=== PATIENT | female | born 2000 | race Hispanic/Latino ===

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

== ENCOUNTER 2021-02-03 12:01 | Emergency (ER) | payer OTHER ==
--- OUTSIDE RECORDS SUMMARY | 2021-02-03 12:04 | XMS REPORT | Continuity of Care Document ---
:2000 Author Organization [facility] t Address [address] [place] [address] Care Team Providers Name Role Phone Chris JENNINGS R Primary Care Physician Chris JENNINGS R Attending Clinician Emanuel GALLARDOP, C Attending Clinician Payers Payer Name Policy Type Policy Effective Expiration Source Number Date Date [facility] [id number] 2020 Universi ty of CHOICE - MANAGED 00:00:00 [facility] dical MEDICAIDCOMMUNITY [facility] [id number] 020-[id number], [place] [address]Medicaid Problems Condition Condition Condition Status Onset Resolution Last Treating Co mments Source Name Details Category Date Date Treatment Clinician Date Nexplanon Nexplanon Disease Active Uni vers insertion insertion 5-07 ity of 00:00: [address] Branch Absence of Absence of Disease Active U nivers menstruati menstruati 3-24 it y of on on 00:00: [address] Breast Breast Disease Active Univers tenderness tenderness 3-24 [place] of [place] Class 1 Class 1 Disease Active Univers obesity obesity 3-24 [place] of with body [place] mass index mass index [address] Ct dical (BMI) of (BMI) of Branch 33.0 to 33.0 to 33.9 in 33.9 in adult, adult, unspecifie unspecifie d obesity d obesity type, type, unspecifie unspecifie d whether d whether serious serious comorbidit comorbidit y present y present BMI BMI Disease Active Univers 33.0-33.9, 33.0-33.9, 3-24 it y of adult adult 00:00: [place] [facility] Elevated Elevated Disease Active Unive rs blood blood 2-21 ity of pressure pressure 00:00: [place] reading reading 00 Medical without without Branch diagnosis diagnosis of of hypertensi hypertensi on on Other Other Disease Active Univers depression depression -09 it y of 00:00: [place] [facility] Branch Nexplanon Nexplanon Disease Active Uni vers removal removal 08-20 ity of 00:00: [address] Screening Screening Disease Active Uni vers examinatio examinatio 08-20 it y of n for STD n for STD 00:00: [place] (sexually (sexually [address] [facility] transmitte transmitte Br anch d disease) d disease) HPV HPV Disease Active 2018-08 Univers vaccine vaccine 0-16 it[place] of counseling [place] [facility] Overweight Overweight Disease Active 2018-08 U nivers 0-16 ity of 00:00: [facility] BMI BMI Disease Active 2018-08 Univers 29.0-29.9, 29.0-29.9, 0-16 it y of adult adult 00:00: [place] [facility] Lump or Lump or Disease Active Univers mass in mass in 4-13 ity of breast breast 00:00: [address] Nexplanon Nexplanon Disease Resolve 2019-08-20 2019-08-20 Univers insertion insertion d 4-13 00:00:00 15:53:54 ity of 00:00: [address] Allergies, Adverse Reactions, Alerts This patient has no known allergies or adverse reactions. Social History Social Habit Start Date Stop Date Quantity Comments Source Exposure to Not sure [facility] SARS-CoV-2 [facility] (event) Branch Tobacco use and 2020-12-16 2020-12-16 Never used Universit y of exposure 00:00:00 00:00:00 [facility] Alcohol intake 2020-12-16 2020-12-16 Current University of 00:00:00 00:00:00 non-drinker of [facility] alcohol Branch (finding) Sex Assigned At [birth year] Universit y of 00:00:00 00:00:00 [facility] Smoking Status Start Date Stop Date Source Never smoker [facility] Medications Ordered Filled Start Stop Current Ordering Indication Dosage Frequency Signature Comments Components Source Medication Medication Date Date Medication? Clinician (SIG) Name Name etonogestre 2020- No Nexplanon 68mg Univers L 12-16 insertion ity of (NEXPLANON) 15:45: 14:44 [place] implant 68 00 :00 Medical mg Branch etonogestre 2020- No [id number] 68mg 68 mg, Univers L 12-16 Subdermal, ity of (NEXPLANON) 15:45: 14:44 ONCE NOW, [place] implant 68 00 :00 1 dose, Medica l mg 12/16/20 Branch at 1045, Routine
Use approved by: [employer] etonogestre 2020- No Nexplanon 68mg Univers L 12-16- insertion ity of (NEXPLANON) 15:45: 14:44 [place] implant 68 00 :00 Medical mg Branch etonogestre 2020- No [id number] 68mg 68 mg, Univers L 12-16- Subdermal, ity of (NEXPLANON) 15:45: 14:44 ONCE NOW, [place] implant 68 00 :00 1 dose, Medica l mg 12/16/20 Branch at 1045, Routine
Use approved by: [employer] Immunizations Ordered Immunization Filled Immunization Date Status Commen ts Source Name Name HPV9 2019-08-25 Completed University of 00:00:00 [facility] HPV9 2019-08-25 Completed University of 00:00:00 [facility] HPV9 2019-05-27 Completed University of 00:00:00 [facility] HPV9 2019-05-27 Completed University of 00:00:00 [facility] TDAP (ADACEL) 2014-06-24 Completed University of VACCINE 00:00:00 [facility] Meningococcal 2014-06-24 Completed University of Vaccine 00:00:00 [facility] TDAP (ADACEL) 2014-06-24 Completed University of VACCINE 00:00:00 [facility] Meningococcal 2014-06-24 Completed University of Vaccine 00:00:00 [facility] TDAP (ADACEL) 2013-03-12 Completed University of VACCINE 00:00:00 [facility] TDAP (ADACEL) 2013-03-12 Completed [facility] VACCINE 00:00:00 [facility] Vital Signs Vital Name Observation Time Observation Value Comments Source Systolic blood 2020-12-16 14:02:00 133 mm[Hg] Univer sity of pressure [facility] Diastolic blood 2020-12-16 14:02:00 85 mm[Hg] Unive rsity of [facility] Heart rate 2020-12-16 14:02:00 89 /min [facility] Body temperature 2020-12-16 14:02:00 36.56 [facility] Respiratory rate 2020-12-16 14:02:00 16 /min [facility] Body height 2020-12-16 14:02:00 165.1 cm [facility] Body weight 2020-12-16 14:02:00 89.444 kg [facility] BMI 2020-12-16 14:02:00 32.81 kg/m2 [facility] Procedures Procedure Date / Time Performed Performing Clinician Sour e POCT TEST 2020-12-16 14:24:00 Floridalma Castellanos [facility] Plan of Care Planned Activity Planned Date Details Comments Source Future Scheduled 2024-06-24 DTaP,Tdap,and Td Univers ity of Test 00:00:00 Vaccines (3 - Td) [facility] [code = Branch DTaP,Tdap,and Td Vaccines (3 - Td)] Future Scheduled 2024-06-24 DTaP,Tdap,and Td Univers ity of Test 00:00:00 Vaccines (3 - Td) [facility] danni [code = Branch DTaP,Tdap,and Td Vaccines (3 - Td)] Future Scheduled 2021-12-16 SARS-CoV-2 Postponed from Universit y of Test 00:00:00 (COVID-19) Vaccine 2017 [place] [facility] ical (1) [code = (Vaccine not Branch SARS-CoV-2 available) (COVID-19) Vaccine (1)] Future Scheduled 2021-12-16 SARS-CoV-2 Postponed from Universit y of Test 00:00:00 (COVID-19) Vaccine 2017 [place] [facility] ical (1) [code = (Vaccine not Branch SARS-CoV-2 available) (COVID-19) Vaccine (1)] Future Scheduled 2021-11-02 Screening for University of Test 00:00:00 Chlamydia [place] [facility] trachomatis Branch (procedure) [code = 792188204] Future Scheduled 2021-11-02 Depression screening Uni versity of Test 00:00:00 (procedure) [code = [facility] dical [id number]] Branch Future Scheduled 2021-11-02 MENINGOCOCCAL B Postponed from Univer sity of Test 00:00:00 VACCINES (1 of 2 - 2011 [place] [facility] ical Risk Bexsero 2-dose (Refused) Branch series) [code = MENINGOCOCCAL B VACCINES (1 of 2 - Risk Bexsero 2-dose series)] Future Scheduled 2021-11-02 VARICELLA VACCINES Postponed from Uni versity of Test 00:00:00 (1 of 2 - 2-dose 2002 [place] [facility] childhood series) (Refused) Branch [code = VARICELLA VACCINES (1 of 2 - 2-dose childhood series)] Future Scheduled 2021-11-02 Well child visit Univers ity of Test 00:00:00 (procedure) [code = [facility] dical [id number]] Branch Future Scheduled 2021-11-02 Screening for University of Test 00:00:00 Chlamydia [place] [facility] trachomatis Branch (procedure) [code = [id number]] Future Scheduled 2021-11-02 Depression screening Uni versity of Test 00:00:00 (procedure) [code = [facility] dical [id number]] Branch Future Scheduled 2021-11-02 MENINGOCOCCAL B Postponed from Univer sity of Test 00:00:00 VACCINES (1 of 2 - 2011 [place] [facility] ical Risk Bexsero 2-dose (Refused) Branch series) [code = MENINGOCOCCAL B VACCINES (1 of 2 - Risk Bexsero 2-dose series)] Future Scheduled 2021-11-02 VARICELLA VACCINES Postponed from Uni versity of Test 00:00:00 (1 of 2 - 2-dose 2002 [place] [facility] childhood series) (Refused) Branch [code = VARICELLA VACCINES (1 of 2 - 2-dose childhood series)] Future Scheduled 2021-11-02 Well child visit Univers ity of Test 00:00:00 (procedure) [code = [facility] dical [id number]] Branch Future Scheduled 2021-04-12 INFLUENZA VACCINE Univer sity of Test 00:00:00 (Season Ended) [code [facility] edical = INFLUENZA VACCINE Branch (Season Ended)] Future Scheduled 2021-04-12 INFLUENZA VACCINE Univer sity of Test 00:00:00 (Season Ended) [code [facility] edical = INFLUENZA VACCINE Branch (Season Ended)] Future Scheduled 2020-12-19 HPV VACCINES (3 - Postponed from Univ ersity of Test 00:00:00 3-dose series) [code 12/24/2019 [facility] edical = HPV VACCINES (3 - ( or Branch 3-dose series)] ) Future Scheduled 2020-12-19 HPV VACCINES (3 - Postponed from Univ ersity of Test 00:00:00 3-dose series) [code 12/24/2019 [facility] edical = HPV VACCINES (3 - ( or Branch 3-dose series)] ) Future Scheduled 2020-12-17 Hepatitis C Postponed from Universit y of Test 00:00:00 screening 2019 [place] [facility] (procedure) [code = (Alternative Branch [id number]] Guidelines) Future Scheduled 2020-12-17 Hepatitis C Postponed from Universit y of Test 00:00:00 screening 2019 [place] [facility] (procedure) [code = (Alternative Branch [id number]] Guidelines) Encounters Start End Encounter Admission Attending Care Care Encounter Source Date/Time Date/Time Type Type Clinicians Facility Department ID 2020-12-30 2020-12-30 Office Perez, [facility] [id number] 09:29:12 10:10:09 Visit Jacob Love [employer] [id number] [facility] [id number] MATERNAL [id number] & CHILD [address] [place] [address] [facility] Results Test Description Test Time Test Comments Results Result Comments Source POCT TEST 2020-12-16 14:24:00 Test Item Value Reference Range Interpretation Comme nts POCT PREG (test code = 1605) Negative On board controls acceptable with C Line (test code = 3574) Yes POCT PREG LOT # (test code = 3575) POCT PREG TEST DATE (test code = 3576) [facility] [place] [id number] 14:24:00 Test Item Value Reference Range Interpretation Comments POCT PREG (test code = 1605) Negative On board controls acceptable with C Yes Line (test code = 3574) POCT PREG LOT # (test code = 3575) POCT PREG TEST DATE (test code = 3576) [facility]
--- NOTE | 2021-02-03 13:46 | ER ---
Nurse's Notes [facility] Name: Maylin Zuniga Age: 20 yrs Sex: Female : 2000 Arrival Date: 02/03/2021 Time: 12:02 Bed 30 Private MD: Diagnosis: Presentation: 02/03 12:41 Chief complaint: Patient states: Nasal congestion, sinuses and unable to breath at iw night between 2am-4am, throat itching and hard to swallow x 2 days. Coronavirus screen: Client denies travel out of the [place] in the last 14 days. At this time, unable to obtain information related to travel outside the [place] At this time, the client does not indicate any symptoms associated with coronavirus-19. Ebola Screen: Patient negative for fever greater than or equal to 101.5 degrees Fahrenheit, and additional compatible Ebola Virus Disease symptoms Patient denies exposure to infectious person. Patient denies travel to an Ebola-affected area in the 21 days before illness onset. Initial Sepsis Screen: Does the patient meet any 2 criteria? No. Patient's initial sepsis screen is negative. Does the patient have a suspected source of infection? No. Patient's initial sepsis screen is negative. Risk Assessment: Do you want to hurt yourself or someone else? Patient reports no desire to harm self or others. Onset of symptoms was February 01, 2021. 12:41 Method Of Arrival: Ambulatory iw 12:41 Acuity: VINNY 4 iw Triage Assessment: 12:45 General: Appears in no apparent distress. Behavior is calm, cooperative, appropriate iw for age, quiet. Pain: Denies pain. NURSE ORTHOPAEDIC: 12:45 LMP 01/06/2021 iw Historical: - Allergies: 12:45 No Known Allergies; iw - Home Meds: 12:45 None [Active]; iw - PMHx: 12:45 seasonal allergies; NOSE BLEEDS; iw - PSHx: 12:45 None; iw - Immunization history:: Adult Immunizations not up to date, Client reports having NOT received the Covid vaccine. - Social history:: Smoking status: Patient denies any tobacco usage or history of. Screenin:46 Abuse screen: Denies threats or abuse. Denies injuries from another. Nutritional iw screening: No deficits noted. Tuberculosis screening: No symptoms or risk factors identified. Fall Risk None identified. Vital Signs: 12:41 BP 139 / 74; Pulse 101; Resp 20; Temp 98.5(O); Pulse Ox 100% on R/A; Weight 88.63 kg iw (M); Height 5 ft. 5 in. (165.10 cm) (R); Pain 0/10; 12:41 Body Mass Index 32.52 (88.63 kg, 165.10 cm) iw ED Course: 12:02 Patient arrived in ED. as 12:41 Kayleen Gabriel, RN is Primary Nurse. iw 12:44 Triage completed. iw 12:45 Arm band placed on left wrist. iw 12:46 Patient has correct armband on for positive identification. iw 13:42 Thomas Nieto PA is PHCP. cp 13:42 Thomas Lynne MD is Attending Physician. cp Administered Medications: No medications were administered Outcome: 13:44 Eloped from waiting room, before seeing physician iw 13:45 Patient left the ED. iw Signatures: Cheryl Meeks as Kayleen Gabriel RN RN iw Thomas Nieto PA PA cp
[2021-02-03 13:50] VITALS: BP 139/74; TEMP 98.5; O2SAT 100
== END 2021-02-03 13:45 | disposition left against medical advice (07) ==
LOC: ER 12:01
DX: Z53.21 Procedure and treatment not carried out due to patient leaving prior to being seen by health care provider (principal)
CPT/HCPCS: 99281

== ENCOUNTER 2021-03-15 09:44 | Emergency (ER) | payer OTHER ==
--- OUTSIDE RECORDS SUMMARY | 2021-03-15 09:48 | XMS REPORT | Continuity of Care Document ---
:2000 Author Organization [facility] t Address [address] [place] [id number] Care Team Providers Name Role Phone Ivan Joseph Primary Care Physician Ivan Joseph Attending Clinician Emanuel NAGEL C Attending Clinician Payers Payer Name Policy Type Policy Effective Expiration Source Number Date Date [facility] [id number] 2020 [facility] - MANAGED 00:00:00 [facility] dical MEDICAIDCOMMUNITY Branch HEALTH CHOICE [id number] 020-[address], [place] [address]Medicaid Problems Condition Condition Condition Status Onset Resolution Last Treating Co mments Source Name Details Category Date Date Treatment Clinician Date Nexplanon Nexplanon Disease Active Uni vers insertion insertion 5-07 ity of 00:00: [address] Absence of Absence of Disease Active U nivers menstruati menstruati 3-24 it y of on on 00:00: [address] Breast Breast Disease Active Univers tenderness tenderness 3-24 [place] [address] [place] [address] Branch Class 1 Class 1 Disease Active Univers obesity obesity 3-24 [place] of with body [place] mass index 00 [place] dical (BMI) of (BMI) of Branch 33.0 to 33.0 to 33.9 in 33.9 in adult, adult, unspecifie unspecifie d obesity d obesity type, type, unspecifie unspecifie d whether d whether serious serious comorbidit comorbidit y present y present BMI BMI Disease Active Univers 33.0-33.9, 33.0-33.9, 3-24 it y of adult adult 00:00: [place] 00 [facility] Branch Elevated Elevated Disease Active Unive rs blood blood 2-21 ity of pressure pressure 00:00: [place] reading reading 00 Medical without without Branch diagnosis diagnosis of of hypertensi hypertensi on on Other Other Disease Active Univers depression depression -09 it y of 00:00: [place] [facility] Branch Nexplanon Nexplanon Disease Active Uni vers removal removal 08-20 ity of 00:00: [address] Branch Screening Screening Disease Active Uni vers examinatio examinatio 08-20 it y of n for STD n for STD 00:00: [place] (sexually (sexually 00 [facility] transmitte transmitte Br anch d disease) d disease) HPV HPV Disease Active 2018-08 Univers vaccine vaccine 0-16 [place] [facility] Overweight Overweight Disease Active 2018-08 U nivers 0-16 ity of 00:00: [address] BMI BMI Disease Active 2018-08 Univers 29.0-29.9, 29.0-29.9, 0-16 it y of adult adult 00:00: [address] Lump or Lump or Disease Active Univers mass in mass in 4-13 ity of breast breast 00:00: [address] Nexplanon Nexplanon Disease Resolve 2019-08-20 2019-08-20 Univers insertion insertion d 4-13 00:00:00 15:53:54 ity of 00:00: [address] Allergies, Adverse Reactions, Alerts This patient has no known allergies or adverse reactions. Social History Social Habit Start Date Stop Date Quantity Comments Source Exposure to Not sure [facility] SARS-CoV-2 [facility] [place] Tobacco use and 2020-12-16 2020-12-16 Never used Universit y of exposure 00:00:00 00:00:00 [facility] Alcohol intake 2020-12-16 2020-12-16 Current University of 00:00:00 00:00:00 non-drinker of [facility] alcohol Branch (finding) Sex Assigned At [birth year] Universit y of 00:00:00 00:00:00 [facility] Smoking Status Start Date Stop Date Source Never smoker [facility] Medications Ordered Filled Start Stop Current Ordering Indication Dosage Frequency Signature Comments Components Source Medication Medication Date Date Medication? Clinician (SIG) Name Name etonogestre 2020- No Nexplanon 68mg Univers L 12-16- insertion ity of (NEXPLANON) 15:45: 14:44 [place] implant 68 00 :00 Medical mg Branch etonogestre 2020- No [id number] 68mg 68 mg, Univers L 12-16-07 Subdermal, ity of (NEXPLANON) 15:45: 14:44 ONCE NOW, [place] implant 68 00 :00 1 dose, Medica l mg 12/16/20 Branch at 1045, Routine
Use approved by: [employer]PECT[employer] etonogestre 2020- No Nexplanon 68mg Univers L 12-16-07 insertion ity of (NEXPLANON) 15:45: 14:44 [place] implant 68 00 :00 Medical mg Branch etonogestre 2020- No [id number] 68mg 68 mg, Univers L 12-16-07 Subdermal, ity of (NEXPLANON) 15:45: 14:44 ONCE NOW, [place] implant 68 00 :00 1 dose, Medica l mg 12/16/20 Branch at 1045, Routine
Use approved by: [employer] INSPECTOR Immunizations Ordered Immunization Filled Immunization Date Status Commen ts Source Name Name HPV9 2019-08-25 Completed University of 00:00:00 [facility] HPV9 2019-08-25 Completed University of 00:00:00 [facility] HPV9 2019-05-27 Completed University of 00:00:00 [facility] HPV9 2019-05-27 Completed University of 00:00:00 [facility] TDAP (ADACEL) 2014-06-24 Completed University of VACCINE 00:00:00 [facility] Meningococcal 2014-06-24 Completed University of Vaccine 00:00:00 [facility] TDAP (ADACEL) 2014-06-24 Completed University of VACCINE 00:00:00 [facility] Meningococcal 2014-06-24 Completed University of Vaccine 00:00:00 [facility] TDAP (ADACEL) 2013-03-12 Completed University VACCINE 00:00:00 [facility] TDAP (ADACEL) 2013-03-12 Completed [facility] VACCINE 00:00:00 [facility] Vital Signs Vital Name Observation Time Observation Value Comments Source Systolic blood 2020-12-16 14:02:00 133 mm[Hg] Univer sity of pressure [facility] Diastolic blood 2020-12-16 14:02:00 85 mm[Hg] Unive rsity of pressure [facility] Heart rate 2020-12-16 14:02:00 89 /min [facility] Body temperature 2020-12-16 14:02:00 36.56 [place] [facility] Respiratory rate 2020-12-16 14:02:00 16 /min [facility] Body height 2020-12-16 14:02:00 165.1 cm [facility] Body weight 2020-12-16 14:02:00 89.444 kg [facility] BMI 2020-12-16 14:02:00 32.81 kg/m2 [facility] Procedures Procedure Date / Time Performed Performing Clinician Sour e POCT TEST 2020-12-16 14:24:00 [facility] Planned Activity Planned Date Details Comments Source Future Scheduled 2024-06-24 DTaP,Tdap,and Td Univers ity of Test 00:00:00 Vaccines (3 - Td) [facility] [code = Branch DTaP,Tdap,and Td Vaccines (3 - Td)] Future Scheduled 2024-06-24 DTaP,Tdap,and Td Univers ity of Test 00:00:00 Vaccines (3 - Td) [facility] danni [code = Branch DTaP,Tdap,and Td Vaccines (3 - Td)] Future Scheduled 2021-12-16 SARS-CoV-2 Postponed from Universit y of Test 00:00:00 (COVID-19) Vaccine 2017 [place] [facility] ical (1) [code = (Vaccine not Branch SARS-CoV-2 available) (COVID-19) Vaccine (1)] Future Scheduled 2021-12-16 SARS-CoV-2 Postponed from Universit y of Test 00:00:00 (COVID-19) Vaccine 2017 [place] [facility] ical (1) [code = (Vaccine not Branch SARS-CoV-2 available) (COVID-19) Vaccine (1)] Future Scheduled 2021-11-02 Screening for University of Test 00:00:00 Chlamydia [place] [facility] trachomatis Branch (procedure) [code = [id number]] Future Scheduled 2021-11-02 Depression screening Uni versity of Test 00:00:00 (procedure) [code = [facility] dical [id number]] Branch Future Scheduled 2021-11-02 MENINGOCOCCAL B Postponed [...] ity of Test 00:00:00 (procedure) [code = [facility] dical [id number]] Branch Future Scheduled 2021-11-02 Screening for University of Test 00:00:00 Chlamydia [place] [facility] trachomatis Branch (procedure) [code = [id number]] Future Scheduled 2021-11-02 Depression screening Uni versity of Test 00:00:00 (procedure) [code = [facility] dical [id number]] Branch Future Scheduled 2021-11-02 MENINGOCOCCAL B Postponed [...] ity of Test 00:00:00 (procedure) [code = [facility] dical [id number]] Branch Future Scheduled 2021-04-12 INFLUENZA VACCINE Univer sity of Test 00:00:00 (Season Ended) [code [facility] M edical = INFLUENZA VACCINE Branch (Season Ended)] Future Scheduled 2021-04-12 INFLUENZA VACCINE Univer sity of Test 00:00:00 (Season Ended) [code [facility] M edical = INFLUENZA VACCINE Branch (Season Ended)] Future Scheduled 2020-12-19 HPV VACCINES (3 - Postponed from Univ ersity of Test 00:00:00 3-dose series) [code 12/24/2019 [place] edical = HPV VACCINES (3 - ( or Branch 3-dose series)] ) Future Scheduled 2020-12-19 HPV VACCINES (3 - Postponed from Univ ersity of Test 00:00:00 3-dose series) [code 12/24/2019 [facility]elle edical = HPV VACCINES (3 - ( or Branch 3-dose series)] ) Future Scheduled 2020-12-17 Hepatitis C Postponed from Universit y of Test 00:00:00 screening 2019 [place] [facility] (procedure) [code = (Alternative Branch [id number]] Guidelines) Future Scheduled 2020-12-17 Hepatitis C Postponed from Universit y of Test 00:00:00 screening 2019 [place] [facility] (procedure) [code = (Alternative Branch [id number]] Guidelines) Encounters Start End Encounter Admission Attending Care Care Encounter Source Date/Time Date/Time Type Type Clinicians Facility Department ID 2020-12-30 2020-12-30 Office Chris [facility] [id number] 22 09:29:12 10:10:09 Visit Jacob Love [employer] [id number] [facility] [id number] MATERNAL [id number] & CHILD [address] [place] [address] Results Test Description Test Time Test Comments Results Result Comments Source POCT TEST 2020-12-16 14:24:00 Test Item Value Reference Range Interpretation Comme nts POCT PREG (test code = 1605) Negative On board controls acceptable with C Line (test code = 3574) Yes POCT PREG LOT # (test code = 3575) POCT PREG TEST DATE (test code = 3576) [id number] 14:24:00 Test Item Value Reference Range Interpretation Comments POCT PREG (test code = 1605) Negative On board controls acceptable with C Yes Line (test code = 3574) POCT PREG LOT # (test code = 3575) POCT PREG TEST DATE (test code = 3576) [facility]
[2021-03-15 10:40] LABS: Urine Blood Negative (Negative); Urine Glucose Negative (Negative); Urine Protein Negative (Negative); Urine pH 7.5 (5.0-7.0)
--- NOTE | 2021-03-15 11:16 | RAD REPORT ---
EXAM DESCRIPTION: RAD - Chest Pa And Lat (2 Views) - 03/15/2021 10:46 am CLINICAL HISTORY: COUGH Chest pain. COMPARISON: Chest Pa And Lat (2 Views) dated 10/06/2020; Chest Single View dated 06/03/2020; Chest Pa And Lat (2 Views) dated 08/06/2019; Chest Single View dated 06/03/2019 FINDINGS: The lungs are clear. The heart is normal in size. No displaced fractures. IMPRESSION: No acute or concerning finding suspected.
[2021-03-15] MEDS ORDERED: KETOROLAC 30 MG/ML INJ ONE (11:32)
[2021-03-15] MEDS ORDERED: CEFTRIAXONE/SWI 1gm 1 GM/10 ML SYR ONE (11:32)
[2021-03-15] MEDS ORDERED: NA CHLORIDE 0.9% 500 ML ONE (11:32)
[2021-03-15 11:40] LABS: Absolute Lymphocytes (CBC) 2.4 K/uL (0.7-4.9); Basophils % 0.8 % (0-1.3); Hematocrit 42.4 % (36.0-45.0); Lymphocytes % 31.3 % (15.3-44.8); MPV 8.3 fL (7.6-11.3); RBC Red Blood Cell Count 4.69 M/uL (3.86-4.86)
[2021-03-15 11:49] LABS: ALT/SGPT 33 U/L (12-78); AST/SGOT 17 U/L (15-37); Albumin 3.8 g/dL (3.4-5.0); Alkaline Phosphatase 83 U/L (45-117); BUN Blood Urea Nitrogen 8 mg/dL (7-18); Bicarbonate 27 mmol/L (21-32); Bilirubin Total 0.4 mg/dL (0.2-1.0); Glucose Level 73 mg/dL (74-106); Protein, Total 7.7 g/dL (6.4-8.2); Sodium Level 141 mmol/L (136-145); Troponin (Emerg Dept Use Only) < 0.02 ng/mL (0.0-0.045)
--- NOTE | 2021-03-15 11:50 | ER ---
Nurse's Notes [facility] Name: Maylin Zuniga Age: 20 yrs Sex: Female : 2000 Arrival Date: 03/15/2021 Time: 09:46 Bed 17 Private MD: Diagnosis: Chest pain, unspecified Presentation: 03/15 10:14 Chief complaint: Patient states: Pain to "ribs" under R breast that began last night ss when taking a deep breath. Denies fever/ cough and/or SOB. Coronavirus screen: Client denies travel out of the [place] in the last 14 days. Ebola Screen: Patient denies exposure to infectious person. Patient denies travel to an Ebola-affected area in the 21 days before illness onset. Initial Sepsis Screen: Does the patient meet any 2 criteria? No. Patient's initial sepsis screen is negative. Does the patient have a suspected source of infection? No. Patient's initial sepsis screen is negative. Risk Assessment: Do you want to hurt yourself or someone else? Patient reports no desire to harm self or others. Onset of symptoms was March 14, 2021. 10:14 Method Of Arrival: Ambulatory ss 10:14 Acuity: VINNY 4 ss Triage Assessment: 11:52 General: Appears in no apparent distress. Behavior is calm, cooperative, appropriate ll1 for age. Respiratory: the patient has mild shortness of breath. Respiratory: Onset: The symptoms/episode began/occurred gradually. AMBULATORY CARE COORDINATOR: 10:17 LMP 02/2021 ss Historical: - Allergies: 10:17 No Known Allergies; ss - Home Meds: 10:17 None [Active]; ss - PMHx: 10:17 NOSE BLEEDS; seasonal allergies; ss - PSHx: 10:17 None; ss - Immunization history:: Adult Immunizations up to date, Client reports receiving the 2nd dose of the Covid vaccine. - Social history:: Smoking status: Patient denies any tobacco usage or history of. Screenin:20 Abuse screen: Denies threats or abuse. Nutritional screening: No deficits noted. ll1 Tuberculosis screening: No symptoms or risk factors identified. 10:20 Fall Risk IV access (20 points). Total Perdmoo Fall Scale indicates No Risk (0-24 pts). ll1 Assessment: 10:45 General: Appears in no apparent distress. Behavior is calm, cooperative, appropriate ll1 for age. Pain: Complains of pain in chest Quality of pain is described as aching, Aggravated by deep breathe. Neuro: No deficits noted. Cardiovascular: Reports chest pain, Heart tones S1 S2 Capillary refill < 3 seconds Clubbing of nail beds is absent JVD Patient's skin is warm and dry. Rhythm is regular. Respiratory: Reports pain with breathing Airway is patent Trachea midline Respiratory effort is even, unlabored, Respiratory pattern is regular, symmetrical, Breath sounds are clear bilaterally. 11:45 Reassessment: No changes from previously documented assessment. Patient and/or family ll1 updated on plan of care and expected duration. Pain level reassessed. Patient is alert, oriented x 3, equal unlabored respirations, skin warm/dry/pink. Vital Signs: 10:14 BP 133 / 83; Pulse 79; Resp 15; Temp 97.5(TE); Pulse Ox 100% on R/A; Weight 74.84 kg; ss Height 5 ft. 5 in. (165.10 cm); Pain 7/10; 11:45 BP 119 / 83; Pulse 57; Resp 18; Pulse Ox 99% on R/A; kg 12:15 BP 128 / 75; Pulse 61; Resp 20; Pulse Ox 99% on R/A; kg 10:14 Body Mass Index 27.46 (74.84 kg, 165.10 cm) ED Course: 09:46 Patient arrived in ED. mr 10:17 Triage completed. ss 10:17 Arm band placed on right wrist. ss 10:20 Fang Jauregui, BILLIE is Primary Nurse. ll1 10:20 Thomas Lynne MD is Attending Physician. annmarie 10:20 Patient placed in an exam room, on a stretcher. ll1 10:20 Patient has correct armband on for positive identification. Bed in low position. Call ll1 light in reach. Side rails up X 1. Cardiac monitoring not applicable on this patient. 10:32 Flu Sent. ss 10:46 Chest Pa And Lat (2 Views) XRAY In Process Unspecified. EDMS 10:59 Urine --Ancillary (enter results) Sent. ll1 11:00 Inserted saline lock: 22 gauge in left antecubital area, using aseptic technique. Blood ll1 collected. 12:02 EKG done, by ED staff, reviewed by Thomas Lynne MD. em1 12:26 No provider procedures requiring assistance completed. IV discontinued, intact, kg bleeding controlled, No redness/swelling at site. Pressure dressing applied. Administered Medications: 11:38 Drug: Rocephin (cefTRIAXone) 1 grams Route: IV; Rate: per protocol; Site: left ll1 antecubital; 12:27 Follow up: IV Status: Completed infusion; IV Intake: 500ml kg 11:38 Drug: Ketorolac 30 mg Route: IVP; Site: left antecubital; ll1 12:24 Follow up: Response: No adverse reaction kg 11:39 Drug: NS 0.9% 500 ml Route: IV; Rate: bolus; Site: left antecubital; ll1 12:24 Follow up: Response: No adverse reaction; IV Status: Completed infusion; IV Intake: kg 500ml Intake: 12:24 IV: 500ml; Total: 500ml. kg 12:27 IV: 500ml; Total: 1000ml. kg Outcome: 11:49 Discharge ordered by . annmarie 12:26 Discharged to home ambulatory. kg 12:26 Condition: good 12:26 Discharge instructions given to patient, Instructed on discharge instructions, follow up and referral plans. Demonstrated understanding of instructions, follow-up care, medications, Prescriptions given X 2. 12:27 Patient left the ED. kg Signatures: Dispatcher [employer] EDMS Thomas Lynne MD MD cha Rivera, Caren mr Meeks, Joselito em1 Radha Grimm RN RN Fang Jauregui RN RN ll1 Halley German RN RN kg Corrections: (The following items were deleted from the chart) 11:08 10:32 CORONAVIRUS+MR.LAB.BRZ drawn and sent. ABUNDIOPA
--- NOTE | 2021-03-15 11:50 | EDPHYS ---
Physician Documentation [facility] Name: Maylin Zuniga Age: 20 yrs Sex: Female : 2000 Arrival Date: 03/15/2021 Time: 09:46 Bed 17 Private MD: ED Physician Thomas Lynne HPI: 03/15 10:56 This 20 yrs old Female presents to ER via Ambulatory with complaints of annmarie Breathing Difficulty. 10:56 The patient has shortness of breath at rest, with light activity. Onset: The annmarie symptoms/episode began/occurred 2 day(s) ago. Duration: The symptoms are intermittent, with episodes lasting 5 second(s) at a time. The patient's shortness of breath is aggravated by coughing, exertion, is alleviated by rest. Associated signs and symptoms: The patient has no apparent associated signs or symptoms. Severity of symptoms: At their worst the symptoms were mild moderate in the emergency department the symptoms are unchanged. The patient has not experienced similar symptoms in the past. 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 - Social history:: Smoking status: Patient denies any tobacco usage or history of. ROS: 10:57 Constitutional: Negative for fever, chills, and weight loss, Eyes: Negative for injury, annmarie pain, redness, and discharge, ENT: Negative for injury, pain, and discharge, Neck: Negative for injury, pain, and swelling, Abdomen/GI: Negative for abdominal pain, nausea, vomiting, diarrhea, and constipation, Back: Negative for injury and pain, : Negative for injury, bleeding, discharge, and swelling, MS/Extremity: Negative for injury and deformity, Skin: Negative for injury, rash, and discoloration, Neuro: Negative for headache, weakness, numbness, tingling, and seizure, Psych: Negative for depression, anxiety, suicide ideation, homicidal ideation, and hallucinations, Allergy/Immunology: Negative for hives, rash, and allergies, Endocrine: Negative for neck swelling, polydipsia, polyuria, polyphagia, and marked weight changes, Hematologic/Lymphatic: Negative for swollen nodes, abnormal bleeding, and unusual bruising. 10:57 Cardiovascular: Positive for chest pain, of the diaphragm. 10:57 Respiratory: Positive for shortness of breath. Exam: 10:57 Constitutional: This is a well developed, well nourished patient who is awake, alert, annmarie and in no acute distress. Head/Face: Normocephalic, atraumatic. Eyes: Pupils equal round and reactive to light, extra-ocular motions intact. Lids and lashes normal. Conjunctiva and sclera are non-icteric and not injected. Cornea within normal limits. Periorbital areas with no swelling, redness, or edema. ENT: Nares patent. No nasal discharge, no septal abnormalities noted. Tympanic membranes are normal and external auditory canals are clear. Oropharynx with no redness, swelling, or masses, exudates, or evidence of obstruction, uvula midline. Mucous membranes moist. Neck: Trachea midline, no thyromegaly or masses palpated, and no cervical lymphadenopathy. Supple, full range of motion without nuchal rigidity, or vertebral point tenderness. No Meningismus. Cardiovascular: Regular rate and rhythm with a normal S1 and S2. No gallops, murmurs, or rubs. Normal PMI, no JVD. No pulse deficits. Respiratory: Lungs have equal breath sounds bilaterally, clear to auscultation and percussion. No rales, rhonchi or wheezes noted. No increased work of breathing, no retractions or nasal flaring. Abdomen/GI: Soft, non-tender, with normal bowel sounds. No distension or tympany. No guarding or rebound. No evidence of tenderness throughout. Back: No spinal tenderness. No costovertebral tenderness. Full range of motion. Skin: Warm, dry with normal turgor. Normal color with no rashes, no lesions, and no evidence of cellulitis. MS/ Extremity: Pulses equal, no cyanosis. Neurovascular intact. Full, normal range of motion. Neuro: Awake and alert, GCS 15, oriented to person, place, time, and situation. Cranial nerves II-XII grossly intact. Motor strength 5/5 in all extremities. Sensory grossly intact. Cerebellar exam normal. Normal gait. Psych: Awake, alert, with orientation to person, place and time. Behavior, mood, and affect are within normal limits. 10:57 Chest/axilla: Inspection: no acute changes, Palpation: tenderness, that is moderate, of the diaphragm, that totally reproduces the patient's complaints, Axilla: are normal, Breasts: are normal, Lymph nodes: lymphadenopathy is not appreciated. 10:57 ECG was reviewed by the Attending Physician. annmarie Vital Signs: 10:14 BP 133 / 83; Pulse 79; Resp 15; Temp 97.5(TE); Pulse Ox 100% on R/A; Weight 74.84 kg; ss Height 5 ft. 5 in. (165.10 cm); Pain 7/10; 11:45 BP 119 / 83; Pulse 57; Resp 18; Pulse Ox 99% on R/A; kg 12:15 BP 128 / 75; Pulse 61; Resp 20; Pulse Ox 99% on R/A; kg 10:14 Body Mass Index 27.46 (74.84 kg, 165.10 cm) ss MDM: 10:20 Patient medically screened. annmarie 10:59 Differential diagnosis: Bronchitis abnormal EKG, anxiety, chest wall pain, annmarie costochondritis, pulmonary embolus, stable angina, pneumonia, Pneumothorax Pulmonary Embolism. Antibiotic administration: Not indicated. HEART Score: History: Slightly Suspicious (0), ECG: Normal (0), Age: < or = 45 years (0), Risk Factors: No Risk Factors Known (0), Troponin: < or = 1 x Normal Limit (0), Total Score = 0. The patient's Wells Deep Vein Thrombosis Score was calculated as follows: Total Score: 0. This patient was found to be at low risk for a deep vein thrombosis by using the Well's assessment criteria Total Score: 0-2 Pts- Low Risk. The patient's pulmonary embolism risk score was calculated as follows: Total Score: 0-2 points. This patient was found to be at low risk for a pulmonary embolism by using the Well's assessment criteria Total Score: 0-2 points. This patient was found to be at low risk for a pulmonary embolism by using the Well's assessment criteria. DAVID Risk Score: TOTAL SCORE = 0. Immunization status:. Data reviewed: vital signs, nurses notes, lab test result(s), EKG, radiologic studies, plain films. 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 Test interpretation: by ED physician or midlevel provider: ECG, plain radiologic studies. 03/15 10:20 Order name: Flu; Complete Time: 11:49 [facility] 03/15 10:40 Order name: Urine Dipstick-Ancillary; Complete Time: 10:55 EDMS 03/15 10:46 Order name: Urine --Ancillary (enter results); Complete Time: 11:49 03/15 10:56 Order name: CBC with Diff; Complete Time: 11:49 [facility] 03/15 10:56 Order name: Comprehensive Metabolic Panel [facility] 03/15 10:20 Order name: Chest Pa And Lat (2 Views) XRAY; Complete Time: 11:49 [facility] 03/15 10:56 Order name: D-Dimer; Complete Time: 11:49 [facility] 03/15 10:56 Order name: Troponin (emerg Dept Use Only) [facility] 03/15 10:56 Order name: Urine Culture [facility] 03/15 12:11 Order name: SARS-COV-2 RT PCR [facility] 03/15 10:20 Order name: Urine Dipstick-Ancillary (obtain specimen); Complete Time: 10:59 [facility] 03/15 10:20 Order name: Urine Test (obtain specimen); Complete Time: 10:59 [facility] 03/15 10:57 Order name: EKG; Complete Time: 10:58 bd EC:57 Rate is 70 beats/min. Rhythm is regular. QRS [place] is Normal. VT interval is normal. QRS annmarie interval is normal. QT interval is normal. No Q waves. T waves are Normal. No ST changes noted. Clinical impression: Normal ECG and No evidence of ischemia. Interpreted by me. Reviewed by me. Administered Medications: 11:38 Drug: Rocephin (cefTRIAXone) 1 grams Route: IV; Rate: per protocol; Site: left ll1 antecubital; 12:27 Follow up: IV Status: Completed infusion; IV Intake: 500ml kg 11:38 Drug: Ketorolac 30 mg Route: IVP; Site: left antecubital; ll1 12:24 Follow up: Response: No adverse reaction kg 11:39 Drug: NS 0.9% 500 ml Route: IV; Rate: bolus; Site: left antecubital; ll1 12:24 Follow up: Response: No adverse reaction; IV Status: Completed infusion; IV Intake: kg 500ml Disposition Summary: 03/15/21 11:49 Discharge Ordered Location: Home [facility] Problem: new annmarie Symptoms: have improved annmarie Condition: Stable annmarie Diagnosis - Chest pain, unspecified annmarie Followup: annmarie - With: Private Physician - When: 2 - 3 days - Reason: Recheck today's complaints, Continuance of care, Re-evaluation by your physician Discharge Instructions: - Discharge Summary Sheet annmarie - Nonspecific Chest Pain, Adult annmarie - Chest Wall Pain annmarie - Chest Wall Pain, [id number] annmarie - Nonspecific Chest Pain, Adult, [id number] annmarie - Aspirin and Your Heart annmarie Forms: - Medication Reconciliation Form annmarie - Thank You Letter annmarie - Antibiotic Education annmarie - Prescription Opioid Use annmarie - Work release form kg Prescriptions: - Ibuprofen 600 mg Oral Tablet - take 1 tablet by ORAL route every 6 hours As needed take with food; 30 tablet; annmarie Refills: 0, Product Selection Permitted - Pepcid 20 mg Oral Tablet - take 1 tablet by ORAL route every 12 hours for 10 days; 20 tablet; Refills: 0, annmarie Product Selection Permitted Signatures: Dispatcher [employer] EDMS Thomas Lynne MD MD cha Smirch, Shelby, RN RN ss Fang Jauregui RN RN ll1 Halley German RN kg Corrections: (The following items were deleted from the chart) 11:08 10:21 CORONAVIRUS+ ordered. EDCO EDMS
[2021-03-15 12:54] VITALS: TEMP 97.5
[2021-03-15 13:01] VITALS: O2SAT 99
[2021-03-15 13:06] VITALS: BP 128/75
== END 2021-03-15 12:27 | disposition home or self-care (01) ==
LOC: ER 09:44
DX: R07.9 Chest pain, unspecified (principal); Z20.822 Contact with and (suspected) exposure to COVID-19
CPT/HCPCS: 96365; 93005; 87088; 85025; 87086; 36415; 81025; 85379; 81003; 84484; 80053; 87804 ×2; 71046; 96375; 99284; U0003; J0696; J7040

== ENCOUNTER 2021-03-15 22:21 | Emergency (ER) | payer OTHER ==
--- OUTSIDE RECORDS SUMMARY | 2021-03-15 22:24 | XMS REPORT | Continuity of Care Document ---
:[address] [facility] t Address [address] [place] [id number] Care Team Providers Name Role Phone Ivan Joseph Primary Care Physician Ivan Joseph Attending Clinician Emanuel NAGEL C Attending Clinician Payers Payer Name Policy Type Policy Effective Expiration Source Number Date Date [facility] [id number] 2020 Universi [facility] - MANAGED 00:00:00 [facility] dical MEDICAIDCOMMUNITY Branch HEALTH CHOICE [id number] 020-[id number] [address]Medicaid Problems Condition Condition Condition Status Onset Resolution Last Treating Co mments Source Name Details Category Date Date Treatment Clinician Date Nexplanon Nexplanon Disease Active Uni vers insertion insertion 5-07 ity of 00:00: [address] Absence of Absence of Disease Active U nivers menstruati menstruati 3-24 it y of on on 00:00: [address] Breast Breast Disease Active Univers tenderness tenderness 3-24 [place] [address] [place] [address] Branch Class 1 Class 1 Disease Active [...] 3-24 it y of adult adult 00:00: [place] 00 [facility] Elevated Elevated Disease Active Unive rs blood blood 2-21 ity of pressure pressure 00:00: [place] reading reading 00 Medical without without Branch diagnosis diagnosis of of hypertensi hypertensi on on Other Other Disease Active Univers depression depression -09 it y of 00:00: [place] [facility] Branch Nexplanon Nexplanon Disease Active Uni vers removal removal 08-20 ity of 00:00: [address] Branch Screening Screening Disease Active Uni vers examinatio examinatio 08-20 it y of n for STD n for STD 00:00: [place] (sexually (sexually 00 [facility] transmitte transmitte Br anch d disease) d disease) HPV HPV Disease Active 2018-08 Univers vaccine vaccine 0-16 [place] [facility] Overweight Overweight Disease Active 2018-08 U nivers 0-16 ity of 00:00: [address] BMI BMI Disease Active 2018-08 Univers 29.0-29.9, 29.0-29.9, 0-16 it y of adult adult 00:00: [address] Lump or Lump or Disease Active Univers mass in mass in 4-13 ity of breast breast 00:00: [address] Nexplanon Nexplanon Disease Resolve 2019-08-20 2019-08-20 Univers insertion insertion d 4-13 00:00:00 15:53:54 ity of 00:00: [address] Allergies, Adverse Reactions, Alerts This patient has no known allergies or adverse reactions. Social History Social Habit Start Date Stop Date Quantity Comments Source Exposure to Not sure [facility] SARS-CoV-2 [facility] [place] Tobacco use and 2020-12-16 2020-12-16 Never used Universit y of exposure 00:00:00 00:00:00 [facility] Alcohol intake 2020-12-16 2020-12-16 Current University of 00:00:00 00:00:00 non-drinker of [facility] alcohol Branch (finding) Sex Assigned At [birth year] Universit y of 00:00:00 00:00:00 [facility] Smoking Status Start Date Stop Date Source Never smoker [facility] Medications Ordered Filled Start Stop Current Ordering Indication Dosage Frequency Signature Comments Components Source Medication Medication Date Date Medication? Clinician (SIG) Name Name etonogestre 2020- No Nexplanon 68mg Univers L 12-16- insertion ity of (NEXPLANON) 15:45: 14:44 [place] implant 68 00 :00 Medical mg Branch etonogestre 2020- No [id number] 68mg 68 mg, Univers L 12-16-07 Subdermal, ity of (NEXPLANON) 15:45: 14:44 ONCE NOW, [place] implant 68 00 :00 1 dose, Medica l mg 12/16/20 Branch at 1045, Routine
Use approved by: GANDY DANCER etonogestre 2020- No Nexplanon 68mg Univers L 12-16-07 insertion ity of (NEXPLANON) 15:45: 14:44 [place] implant 68 00 :00 Medical mg Branch etonogestre 2020- No [id number] 68mg 68 mg, Univers L 12-16-07 Subdermal, ity of (NEXPLANON) 15:45: 14:44 ONCE NOW, [place] implant 68 00 :00 1 dose, Medica l mg 12/16/20 Branch at 1045, Routine
Use approved by: GANDY DANCER Immunizations Ordered Immunization Filled Immunization Date Status Commen ts Source Name Name HPV9 2019-08-25 Completed University of 00:00:00 [facility] HPV9 2019-08-25 Completed University of 00:00:00 [facility] HPV9 2019-05-27 Completed University of 00:00:00 [facility] HPV9 2019-05-27 Completed University of 00:00:00 [facility] TDAP (ADACEL) 2014-06-24 Completed University of VACCINE 00:00:00 [facility] Meningococcal 2014-06-24 Completed University of Vaccine 00:00:00 [facility] TDAP (ADACEL) 2014-06-24 Completed University of VACCINE 00:00:00 [facility] Meningococcal 2014-06-24 Completed University of Vaccine 00:00:00 [facility] TDAP (ADACEL) 2013-03-12 Completed University VACCINE 00:00:00 [facility] TDAP (ADACEL) 2013-03-12 Completed [facility] VACCINE 00:00:00 [facility] Vital Signs Vital Name Observation Time Observation Value Comments Source Systolic blood 2020-12-16 14:02:00 133 mm[Hg] Univer sity of pressure [facility] Diastolic blood 2020-12-16 14:02:00 85 mm[Hg] Unive rsity of pressure [facility] Heart rate 2020-12-16 14:02:00 89 /min [facility] Body temperature 2020-12-16 14:02:00 36.56 [facility] [place] [place] Respiratory rate 2020-12-16 14:02:00 16 /min [facility] [place] [facility] [place] [place] Body height 2020-12-16 14:02:00 165.1 cm [facility] Body weight 2020-12-16 14:02:00 89.444 kg [facility] BMI 2020-12-16 14:02:00 32.81 kg/m2 [facility] Procedures Procedure Date / Time Performed Performing Clinician Sour e POCT TEST 2020-12-16 14:24:[address] [facility] [place] [place] Plan of Care Planned Activity Planned Date Details Comments Source Future Scheduled 2024-06-24 DTaP,Tdap,and Td Univers ity of Test 00:00:00 Vaccines (3 - Td) [facility] [code = Branch DTaP,Tdap,and Td Vaccines (3 - Td)] Future Scheduled 2024-06-24 DTaP,Tdap,and Td Univers ity of Test 00:00:00 Vaccines (3 - Td) [facility] [place] [place] danni [code = Branch DTaP,Tdap,and Td Vaccines (3 - Td)] Future Scheduled 2021-12-16 SARS-CoV-2 Postponed from Universit y of Test 00:00:00 (COVID-19) Vaccine 2017 [place] Med ical (1) [code = (Vaccine not Branch SARS-CoV-2 available) (COVID-19) Vaccine (1)] Future Scheduled 2021-12-16 SARS-CoV-2 Postponed from Universit y of Test 00:00:00 (COVID-19) Vaccine 2017 [place] [facility] ical (1) [code = (Vaccine not Branch SARS-CoV-2 available) (COVID-19) Vaccine (1)] Future Scheduled 2021-11-02 Screening for University of Test 00:00:00 Chlamydia [place] [facility] trachomatis Branch (procedure) [code = 194156404] Future Scheduled 2021-11-02 Depression screening Uni versity of Test 00:00:00 (procedure) [code = [facility] dical [id number]] Branch Future Scheduled 2021-11-02 MENINGOCOCCAL B Postponed [...] ity of Test 00:00:00 (procedure) [code = [facility] dical [id number]] Branch Future Scheduled 2021-11-02 Screening for University of Test 00:00:00 Chlamydia [place] [facility] trachomatis Branch (procedure) [code = [id number]] Future Scheduled 2021-11-02 Depression screening Uni versity of Test 00:00:00 (procedure) [code = [facility] dical [id number]] Branch Future Scheduled 2021-11-02 MENINGOCOCCAL B Postponed [...] of Test 00:00:00 (procedure) [code = [place] dical [id number]] Branch Future Scheduled 2021-04-12 INFLUENZA VACCINE Univer [...] Universit y of Test 00:00:00 screening 2019 [place] [facility] (procedure) [code = (Alternative Branch [id number]] Guidelines) Future Scheduled 2020-12-17 Hepatitis C Postponed from Universit y of Test 00:00:00 screening 2019 [place] [facility] (procedure) [code = (Alternative Branch [id number]] Guidelines) Encounters Start End Encounter Admission Attending Care Care Encounter Source Date/Time Date/Time Type Type Clinicians Facility Department ID 2020-12-30 2020-12-30 Office Chris [facility] [id number] 22 09:29:12 10:10:09 Visit Jacob Love GANDY DANCER [id number] [facility] [id number] MATERNAL [id number] & CHILD [address] [place] [address] Results Test Description Test Time Test Comments Results Result Comments Source POCT TEST 2020-12-16 14:24:00 Test Item Value Reference Range Interpretation Comme nts POCT PREG (test code = 1605) Negative On board controls acceptable with C Line (test code = 3574) Yes POCT PREG LOT # (test code = 3575) PO[facility] (test code = 3576[id number]00 Test Item Value Reference Range Interpretation Comments POCT PREG (test code = 1605) Negative On board controls acceptable with C Yes Line (test code = 3574) POCT PREG LOT # (test code = 3575) POCT PREG TEST DATE (test code = 3576) [facility]
--- NOTE | 2021-03-16 00:39 | ER ---
Nurse's Notes [facility] Name: Maylin Zuniga Age: 20 yrs Sex: Female : 2000 Arrival Date: 03/15/2021 Time: 22:32 Bed 10 Private MD: Diagnosis: Chest pain, unspecified-chest wall pain Presentation: 03/15 22:38 Chief complaint: Patient states: was seen here earlier and was told she had a kidney iw infection and now both side of her ribs are hurting. 22:38 Method Of Arrival: Ambulatory iw 22:40 Coronavirus screen: At this time, the client does not indicate any symptoms associated iw with coronavirus-19. Ebola Screen: Patient negative for fever greater than or equal to 101.5 degrees Fahrenheit, and additional compatible Ebola Virus Disease symptoms Patient denies exposure to infectious person. Patient denies travel to an Ebola-affected area in the 21 days before illness onset. No symptoms or risks identified at this time. Initial Sepsis Screen: Does the patient meet any 2 criteria? No. Patient's initial sepsis screen is negative. Does the patient have a suspected source of infection? No. Patient's initial sepsis screen is negative. Risk Assessment: Do you want to hurt yourself or someone else? Patient reports no desire to harm self or others. Onset of symptoms was March 15, 2021. 22:40 Acuity: VINNY 3 iw Historical: - Allergies: 22:41 No Known Allergies; iw - PMHx: 22:40 NOSE BLEEDS; seasonal allergies; iw - Social history:: Smoking status: Patient denies any tobacco usage or history of. Screenin/05 00:45 Abuse screen: Denies threats or abuse. Nutritional screening: No deficits noted. jb4 Tuberculosis screening: No symptoms or risk factors identified. Fall Risk None identified. Assessment: 00:45 General: Appears in no apparent distress. uncomfortable, Behavior is calm, cooperative, jb4 appropriate for age. Pain: Complains of pain in Ribs Pain does not radiate. Pain currently is 7 out of 10 on a pain scale. Neuro: Level of Consciousness is awake, alert, obeys commands, Oriented to person, place, time, situation. Cardiovascular: Patient's skin is warm and dry. Respiratory: Airway is patent Respiratory effort is even, unlabored, Respiratory pattern is regular, symmetrical. GI: No signs and/or symptoms were reported involving the gastrointestinal system. : No signs and/or symptoms were reported regarding the genitourinary system. EENT: No signs and/or symptoms were reported regarding the EENT system. Derm: Skin is intact, Skin is pink, warm \T\ dry. Musculoskeletal: Circulation, motion, and sensation intact. Range of motion: intact in all extremities. Vital Signs: 03/15 22:40 BP 141 / 92; Pulse 75; Resp 16; Temp 97.5; Pulse Ox 100% on R/A; Weight 74.84 kg; iw Height 5 ft. 5 in. (165.10 cm); Pain 7/10; 03/16 00:57 BP 135 / 94; Pulse 64; Resp 18; Temp 98.4(TE); Pulse Ox 98% on R/A; mw2 03/15 22:40 Body Mass Index 27.46 (74.84 kg, 165.10 cm) iw ED Course: 03/15 22:32 Patient arrived in ED. cf2 22:40 Triage completed. iw 22:41 Arm band placed on. iw 22:47 Felicia Swanson FNP-C is PHCP. kb 22:47 Jamey Hamilton MD is Attending Physician. kb 23:30 Chest Pa And Lat (2 Views) XRAY In Process Unspecified. EDMS 03/16 00:45 Patient has correct armband on for positive identification. Bed in low position. Call jb4 light in reach. Side rails up X 1. Pulse ox on. NIBP on. 01:00 No provider procedures requiring assistance completed. Patient did not have IV access jb4 during this emergency room visit. Administered Medications: 00:49 Drug: HYDROcodone-acetaminophen 5 mg-325 mg 1 tabs Route: PO; jb4 00:49 Follow up: Response: Medication administered at discharge. jb4 Outcome: 00:39 Discharge ordered by . kb 01:00 Discharged to home ambulatory, with friend. jb4 01:00 Condition: stable 01:00 Discharge instructions given to patient, Instructed on discharge instructions, follow up and referral plans. Demonstrated understanding of instructions, follow-up care. 01:00 Patient left the ED. jb4 Signatures: Dispatcher [employer] EDNE Felicia Swanson FNP-C FNP-Ckb Williams, Irene, RN RN iw Abdoul Walker RN RN jb4 Homa Macdonald mw2 Alex Zaidi cf2 Corrections: (The following items were deleted from the chart) 03/15 22:41 22:40 Pulse 75bpm; Resp 16bpm; Pulse Ox 100% RA; Temp 97.5F; 74.84 kg; Height 5 ft. 5 iw in.; BMI: 27.4; Pain 7/10; iw 03/16 00:59 00:45 Pain: Complains of pain in left lateral anterior chest Pain does not radiate. jb4 Pain currently is 7 out of 10 on a pain scale. jb4 00:59 00:45 Cardiovascular: Patient's skin is warm and dry. jb4 jb4
--- NOTE | 2021-03-16 00:39 | EDPHYS ---
Physician Documentation [facility] Name: Maylin Zuniga Age: 20 yrs Sex: Female : 2000 Arrival Date: 03/15/2021 Time: 22:32 Bed 10 Private MD: ED Physician Jamey Hamilton HPI: 03/16 00:54 This 20 yrs old Female presents to ER via Ambulatory with complaints of RIB kb PAIN, Breathing Difficulty. 00:54 The patient or guardian reports chest pain that is located primarily in the diaphragm. kb The pain does not radiate. Associated signs and symptoms: The patient has no apparent associated signs or symptoms. The chest pain is described as aching. Duration: The patient or guardian reports a single episode, that is still ongoing. Modifying factors: The symptoms are alleviated by nothing. the symptoms are aggravated by nothing. Severity of pain: At its worst the pain was moderate in the emergency department the pain is unchanged. The patient has not experienced similar symptoms in the past. The patient has not recently seen a physician, The patient has been recently seen at the [facility] Emergency Department, today, for similar complaints labs were performed, X-rays were performed. Patient reports she was seen earlier today here with pain below right breast. Work-up complete, including labs, x-ray, all with normal findings. States she was told to return if pain changed or worsened. States pain is now all the way across lower chest. Pain with palpation and movement. Denies cough congestion fever.. Historical: - Allergies: 03/15 22:41 No Known Allergies; iw - PMHx: 22:40 NOSE BLEEDS; seasonal allergies; iw - Social history:: Smoking status: Patient denies any tobacco usage or history of. ROS: 03/16 00:56 Constitutional: Negative for fever, chills, and weight loss. kb Cardiovascular: Positive for chest pain, Negative for edema, orthopnea, palpitations, paroxysmal nocturnal dyspnea. All other systems are negative. Exam: 00:56 Constitutional: This is a well developed, well nourished patient who is awake, alert, kb and in no acute distress. Head/Face: Normocephalic, atraumatic. ENT: Moist Mucous membranes Cardiovascular: Regular rate and rhythm with a normal S1 and S2. No gallops, murmurs, or rubs. No pulse deficits. Respiratory: Respirations even and unlabored. No increased work of breathing, no retractions or nasal flaring. Abdomen/GI: Soft, non-tender. No distention Skin: Warm, dry with normal turgor. Normal color. MS/ Extremity: Pulses equal, no cyanosis. Neurovascular intact. Full, normal range of motion. Neuro: Awake and alert, GCS 15, oriented to person, place, time, and situation. Moves all extremities. Normal gait. Psych: Awake, alert, with orientation to person, place and time. Behavior, mood, and affect are within normal limits. 00:56 Chest/axilla: Inspection: normal, Palpation: tenderness, that is moderate, of the kb diaphragm, that totally reproduces the patient's complaints. Vital Signs: 03/15 22:40 BP 141 / 92; Pulse 75; Resp 16; Temp 97.5; Pulse Ox 100% on R/A; Weight 74.84 kg; iw Height 5 ft. 5 in. (165.10 cm); Pain 7/10; 03/16 00:57 BP 135 / 94; Pulse 64; Resp 18; Temp 98.4(TE); Pulse Ox 98% on R/A; mw2 03/15 22:40 Body Mass Index 27.46 (74.84 kg, 165.10 cm) iw MDM: 03/15 22:47 Patient medically screened. kb 03/16 00:56 Data reviewed: vital signs, nurses notes. Data interpreted: Pulse oximetry: on room air kb is 100 %. Interpretation: normal. Counseling: I had a detailed discussion with the patient and/or guardian regarding: the historical points, exam findings, and any diagnostic results supporting the discharge/admit diagnosis, radiology results, the need for outpatient follow up, a family practitioner, to return to the emergency department if symptoms worsen or persist or if there are any questions or concerns that arise at home. 03/15 22:47 Order name: Chest Pa And Lat (2 Views) XRAY iw Administered Medications: 00:49 Drug: HYDROcodone-acetaminophen 5 mg-325 mg 1 tabs Route: PO; jb4 00:49 Follow up: Response: Medication administered at discharge. jb4 Disposition: 01:40 Co-signature as Attending Physician, Jamey Hamilton MD. pkl Disposition Summary: 03/16/21 00:39 Discharge Ordered Location: Home kb Condition: Stable kb Diagnosis - Chest pain, unspecified - chest wall pain kb Followup: kb - With: Emergency Department - When: As needed - Reason: Worsening of condition Followup: kb - With: Private Physician - When: 2 - 3 days - Reason: Recheck today's complaints, Continuance of care, Re-evaluation by your physician Discharge Instructions: - Discharge Summary Sheet kb - Chest Wall Pain, [id number] kb Forms: - Medication Reconciliation Form kb - Thank You Letter kb - Antibiotic Education kb - Prescription Opioid Use kb Signatures: Dispatcher [employer] EDMS Sky Felicia, MARCOC MICHAELA-Jamey Pike MD MD pkl Williams, Irene, RN RN Abdoul Dyer RN RN jb4 Corrections: (The following items were deleted from the chart) 00:56 00:56 Constitutional: This is a well developed, well nourished patient who is awake, kb alert, and in no acute distress. Head/Face: Normocephalic, atraumatic. ENT: Moist Mucous membranes Cardiovascular: Regular rate and rhythm with a normal S1 and S2. No gallops, murmurs, or rubs. No pulse deficits. Respiratory: Respirations even and unlabored. No increased work of breathing, no retractions or nasal flaring. Abdomen/GI: Soft, non-tender. No distention Skin: Warm, dry with normal turgor. Normal color. MS/ Extremity: Pulses equal, no cyanosis. Neurovascular intact. Full, normal range of motion. Neuro: Awake and alert, GCS 15, oriented to person, place, time, and situation. Moves all extremities. Normal gait. Psych: Awake, alert, with orientation to person, place and time. Behavior, mood, and affect are within normal limits. kb
[2021-03-16] MEDS ORDERED: HYDROCODONE/APAP 5/325 MG TAB ONE (01:07)
[2021-03-16 02:19] VITALS: BP 135/94; TEMP 98.4; O2SAT 98
--- NOTE | 2021-03-16 08:56 | RAD REPORT ---
EXAM DESCRIPTION: RAD - Chest Pa And Lat (2 Views) - 03/15/2021 11:30 pm CLINICAL HISTORY: CHEST PAIN Chest pain. COMPARISON: Chest Pa And Lat (2 Views) dated 03/15/2021; Chest Pa And Lat (2 Views) dated 10/06/2020; C hest Single View dated 06/03/2020; Chest Pa And Lat (2 Views) dated 08/06/2019 FINDINGS: The lungs are clear. The heart is normal in size. No displaced fractures. IMPRESSION: No acute or concerning finding suspected.
== END 2021-03-16 01:00 | disposition home or self-care (01) ==
LOC: ER 22:21
DX: R07.89 Other chest pain (principal)
CPT/HCPCS: 71046; 99283

== ENCOUNTER 2021-03-30 10:38 | Emergency (ER) | payer OTHER ==
--- OUTSIDE RECORDS SUMMARY | 2021-03-30 10:41 | XMS REPORT | Continuity of Care Document ---
:2000 Author Organization [facility] t Address [address] [place] [id number] Care Team Providers Name Role Phone Ivan Joseph Primary Care Physician Ivan Joseph Attending Clinician Emanuel NAGEL C Attending Clinician Payers Payer Name Policy Type Policy Effective Expiration Source Number Date Date ON LICENSE OF [facility] [id number] 2020 Universi [facility] - MANAGED 00:00:[address] [facility] dical MEDICAIDCOMMUNITY Branch HEALTH CHOICE [id number] 020-[address], [place] [address]Medicaid Problems Condition Condition Condition Status Onset Resolution Last Treating Co mments Source Name Details Category Date Date Treatment Clinician Date Nexplanon Nexplanon Disease Active Uni vers insertion insertion 5-07 ity of 00:00: [address] Absence of Absence of Disease Active U nivers menstruati menstruati 3-24 it y of on on 00:00: [address] Breast Breast Disease Active Univers tenderness tenderness 3-24 [place] [address] [place] [address] Branch Class 1 Class 1 Disease Active [...] 3-24 it y of adult adult 00:00: [place] 00 [facility] Branch Elevated Elevated Disease Active Unive rs blood blood 2-21 ity of pressure pressure 00:00: [place] reading reading 00 Medical without without Branch diagnosis diagnosis of of hypertensi hypertensi on on Other Other Disease Active Univers depression depression -09 it y of 00:00: [place] [facility] Branch Nexplanon Nexplanon Disease Active Uni vers removal removal 08-20 ity of 00:00: [address] Branch Screening Screening Disease Active Uni vers examinatio examinatio 08-20 it y of n for STD n for STD 00:00: [place] (sexually (sexually 00 [facility] transmitte transmitte Br anch d disease) d disease) HPV HPV Disease Active 2018-08 Univers vaccine vaccine 0-16 [place] [facility] Overweight Overweight Disease Active 2018-08 U nivers 0-16 ity of 00:00: [address] BMI BMI Disease Active 2018-08 Univers 29.0-29.9, 29.0-29.9, 0-16 it y of adult adult 00:00: [address] Lump or Lump or Disease Active Univers mass in mass in 4-13 ity of breast breast 00:00: [address] Nexplanon Nexplanon Disease Resolve 2019-08-20 2019-08-20 Univers insertion insertion d 4-13 00:00:00 15:53:54 ity of 00:00: [address] Allergies, Adverse Reactions, Alerts This patient has no known allergies or adverse reactions. Social History Social Habit Start Date Stop Date Quantity Comments Source Exposure to Not sure [facility] SARS-CoV-2 [facility] [place] Tobacco use and 2020-12-16 2020-12-16 Never used Universit y of exposure 00:00:00 00:00:00 [facility] Alcohol intake 2020-12-16 2020-12-16 Current University of 00:00:00 00:00:00 non-drinker of [facility] alcohol Branch (finding) Sex Assigned At [birth year] Universit y of 00:00:00 00:00:00 [facility] Smoking Status Start Date Stop Date Source Never smoker [facility] Medications Ordered Filled Start Stop Current Ordering Indication Dosage Frequency Signature Comments Components Source Medication Medication Date Date Medication? Clinician (SIG) Name Name etonogestre 2020- No Nexplanon 68mg Univers L 12-16- insertion ity of (NEXPLANON) 15:45: 14:44 [place] implant 68 00 :00 Medical mg Branch etonogestre 2020- No [id number] 68mg 68 mg, Univers L 12-16-07 Subdermal, ity of (NEXPLANON) 15:45: 14:44 ONCE NOW, [place] implant 68 00 :00 1 dose, Medica l mg 12/16/20 Branch at 1045, Routine
Use approved by: [facility] etonogestre 2020- No Nexplanon 68mg Univers L 12-16-07 insertion ity of (NEXPLANON) 15:45: 14:44 [place] implant 68 00 :00 Medical mg Branch etonogestre 2020- No [id number] 68mg 68 mg, Univers L 12-16-07 Subdermal, ity of (NEXPLANON) 15:45: 14:44 ONCE NOW, [place] implant 68 00 :00 1 dose, Medica l mg 12/16/20 Branch at 1045, Routine
Use approved by: [facility] Immunizations Ordered Immunization Filled Immunization Date Status Commen ts Source Name Name HPV9 2019-08-25 Completed University of 00:00:00 [facility] HPV9 2019-08-25 Completed University of 00:00:00 [facility] HPV9 2019-05-27 Completed University of 00:00:00 [facility] HPV9 2019-05-27 Completed University of 00:00:00 [facility] TDAP (ADACEL) 2014-06-24 Completed University of VACCINE 00:00:00 [facility] Meningococcal 2014-06-24 Completed University of Vaccine 00:00:00 [facility] TDAP (ADACEL) 2014-06-24 Completed University of VACCINE 00:00:00 [facility] Meningococcal 2014-06-24 Completed University of Vaccine 00:00:00 [facility] TDAP (ADACEL) 2013-03-12 Completed University VACCINE 00:00:00 [facility] TDAP (ADACEL) 2013-03-12 Completed [facility] VACCINE 00:00:00 [facility] Vital Signs Vital Name Observation Time Observation Value Comments Source Systolic blood 2020-12-16 14:02:00 133 mm[Hg] Univer sity of pressure [facility] Diastolic blood 2020-12-16 14:02:00 85 mm[Hg] Unive rsity of pressure [facility] Heart rate 2020-12-16 14:02:00 89 /min [facility] Body temperature 2020-12-16 14:02:00 36.56 [place] [facility] Respiratory rate 2020-12-16 14:02:00 16 /min [facility] Body height 2020-12-16 14:02:00 165.1 cm [facility] Body weight 2020-12-16 14:02:00 89.444 kg [facility] BMI 2020-12-16 14:02:00 32.81 kg/m2 [facility] Procedures Procedure Date / Time Performed Performing Clinician Sour e POCT TEST 2020-12-16 14:24:00 Floridal[facility] Castell[facility] Plan of Care Planned Activity Planned Date Details Comments Source Future Scheduled 2024-06-24 DTaP,Tdap,and Td Univers ity of Test 00:00:00 Vaccines (3 - Td) [facility] [code = Branch DTaP,Tdap,and Td Vaccines (3 - Td)] Future Scheduled 2024-06-24 DTaP,Tdap,and Td Univers ity of Test 00:00:00 Vaccines (3 - Td) [facility] danni [code = Branch DTaP,Tdap,and Td Vaccines (3 - Td)] Future Scheduled 2021-12-16 SARS-CoV-2 Postponed from Universit y of Test 00:00:00 (COVID-19) Vaccine 2017 [place] [facility] ical (1) [code = (Vaccine not Branch SARS-CoV-2 available) (COVID-19) Vaccine (1)] Future Scheduled 2021-12-16 SARS-CoV-2 Postponed from Universit y of Test 00:00:00 (COVID-19) Vaccine 2017 [place] [facility] ical (1) [code = (Vaccine not Branch SARS-CoV-2 available) (COVID-19) Vaccine (1)] Future Scheduled 2021-11-02 Screening for University of Test 00:00:00 Chlamydia [place] [facility] trachomatis Branch (procedure) [code = 028255322] Future Scheduled 2021-11-02 Depression screening Uni versity of Test 00:00:00 (procedure) [code = [facility] dical [id number]] Branch Future Scheduled 2021-11-02 MENINGOCOCCAL B Postponed [...] ity of Test 00:00:00 (procedure) [code = [facility] dical [id number]] Branch Future Scheduled 2021-11-02 Screening for University of Test 00:00:00 Chlamydia [place] [facility] trachomatis Branch (procedure) [code = [id number]] Future Scheduled 2021-11-02 Depression screening Uni versity of Test 00:00:00 (procedure) [code = [facility]ical [id number]] Branch Future Scheduled 2021-11-02 MENINGOCOCCAL B Postponed [...] of Test 00:00:00 (procedure) [code = [place] d[place] [id number]] Branch Future Scheduled 2021-04-12 INFLUENZA VACCINE Univer [...] Universit y of Test 00:00:00 screening 2019 [place] [facility] (procedure) [code = (Alternative Branch [id number]] Guidelines) Future Scheduled 2020-12-17 Hepatitis C Postponed from Universit y of Test 00:00:00 screening 2019 [place] [facility] (procedure) [code = (Alternative Branch [id number]] Guidelines) Encounters Start End Encounter Admission Attending Care Care Encounter Source Date/Time Date/Time Type Type Clinicians Facility Department ID 2020-12-30 2020-12-30 Office Chris [facility] [id number] 22 09:29:12 10:10:09 Visit Jacob Love [facility] [id number] [facility] [id number] MATERNAL [id number] & CHILD [address] [place] [address] Results Test Description Test Time Test Comments Results Result Comments Source POCT TEST 2020-12-16 14:24:00 Test Item Value Reference Range Interpretation Comme nts POCT PREG (test code = 1605) Negative On board controls acceptable with C Line (test code = 3574) Yes POCT PREG LOT # (test code = 3575) POCT PREG TEST DATE (test code = 3576) [id number] 14:24:00 Test Item Value Reference Range Interpretation Comments POCT PREG (test code = 1605) Negative On board controls acceptable with C Yes Line (test code = 3574) POCT PREG LOT # (test code = 3575) POCT PREG TEST DATE (test code = 3576) [facility]
== END 2021-03-30 12:09 | disposition left against medical advice (07) ==
LOC: ER 10:38
DX: Z02.9 Encounter for administrative examinations, unspecified (principal)

== ENCOUNTER 2021-04-30 10:00 | Emergency (ER) | payer OTHER ==
--- NOTE | 2021-04-30 10:40 | RAD REPORT ---
EXAM DESCRIPTION: RAD - Knee Left 3 View - 04/30/2021 10:31 am CLINICAL HISTORY: Left knee pain status post injury FINDINGS: No fracture or dislocation is seen. No bone or joint abnormality noted If the pain persists follow up x-ray in 4 weeks would be recommended
[2021-04-30] MEDS ORDERED: IBUPROFEN 400 MG TAB ONE (10:49)
--- NOTE | 2021-04-30 10:52 | ER ---
Nurse's Notes [facility] Name: Maylin Zuniga Age: 20 yrs Sex: Female : 2000 Arrival Date: 04/30/2021 Time: 10:01 Bed 5 Private MD: Diagnosis: Pain in left knee Presentation: 04/30 10:07 Chief complaint: Patient states: pain to left leg, radiates from above left knee down iw to left foot, cannot bear weight, denies injury, pain started last night. Coronavirus screen: At this time, the client does not indicate any symptoms associated with coronavirus-19. Ebola Screen: Patient negative for fever greater than or equal to 101.5 degrees Fahrenheit, and additional compatible Ebola Virus Disease symptoms Patient denies exposure to infectious person. Patient denies travel to an Ebola-affected area in the 21 days before illness onset. No symptoms or risks identified at this time. Initial Sepsis Screen: Does the patient meet any 2 criteria? No. Patient's initial sepsis screen is negative. Does the patient have a suspected source of infection? No. Patient's initial sepsis screen is negative. Risk Assessment: Do you want to hurt yourself or someone else? Patient reports no desire to harm self or others. Onset of symptoms was April 29, 2021. 10:07 Method Of Arrival: Wheelchair iw 10:07 Acuity: VINNY 4 iw 10:14 Acuity: VINNY 3 iw Historical: - Allergies: 10:09 No Known Allergies; iw - Home Meds: 10:09 None [Active]; iw - PMHx: 10:09 NOSE BLEEDS; seasonal allergies; iw - PSHx: 10:09 None; iw - Immunization history:: Adult Immunizations up to date. - Social history:: Smoking status: . - Family history:: not pertinent. Screenin:20 Abuse screen: Denies threats or abuse. Denies injuries from another. Nutritional ch5 screening: No deficits noted. Tuberculosis screening: No symptoms or risk factors identified. Fall Risk None identified. Assessment: 10:20 Reassessment: C/O pain to left knee. Unknown injury. denies falling and stated " it ch5 started hurting last night". Pain: Complains of pain in left knee Aggravated by repositioning, weight bearing. Musculoskeletal: no swelling or deformity noted. Vital Signs: 10:07 BP 118 / 84; Pulse 96; Resp 16; Temp 97.6; Pulse Ox 100% on R/A; Weight 68.04 kg; iw Height 5 ft. 5 in. (165.10 cm); Pain 7/10; 10:20 BP 129 / 61; Pulse 79; Resp 18; Pulse Ox 97% ; Pain 6/10; ch5 11:10 BP ??? / 129; Pulse 81; Resp 18; Pulse Ox 97% on R/A; Pain 5/10; ch5 10:07 Body Mass Index 24.96 (68.04 kg, 165.10 cm) iw ED Course: 10:01 Patient arrived in ED. as 10:09 Triage completed. iw 10:10 Lawson Faye, RN is Primary Nurse. ch5 10:11 Thomas Lynne MD is Attending Physician. annmarie 10:16 Arm band placed on. iw 10:20 Bed in low position. Call light in reach. Side rails up X2. ch5 10:20 No provider procedures requiring assistance completed. ch5 10:31 Knee Left 3 View XRAY In Process Unspecified. EDMS 10:51 Gee Mesa MD is Referral Physician. annmarie 11:08 Patient did not have IV access during this emergency room visit. ch5 Administered Medications: 10:27 Drug: Motrin (ibuprofen) 800 mg Route: PO; jd3 Outcome: 10:51 Discharge ordered by . annmarie 11:11 Discharged to home with crutches, with friend. ch5 11:11 Condition: good 11:11 Discharge instructions given to patient, Prescriptions given X 1. 11:11 Patient left the ED. ch5 Signatures: Dispatcher [employer] EDVA Thomas Lynne MD MD cha Martinez, Amelia as Kayleen Gabriel RN RN iw Davies, Jonathon, RN RN jd3 Lawson Faye, BILLIE RN ch5 Corrections: (The following items were deleted from the chart) 10:09 10:07 Pulse 96bpm; Resp 16bpm; Pulse Ox 100% RA; Temp 97.6F; 68.04 kg; Height 5 ft. 5 iw in.; BMI: 24.9; Pain 7/10; iw
--- NOTE | 2021-04-30 10:52 | EDPHYS ---
Physician Documentation [facility] Name: Maylin Zuniga Age: 20 yrs Sex: Female : 2000 Arrival Date: 04/30/2021 Time: 10:01 Bed 5 Private MD: ED Physician Thomas Lynne HPI: 04/30 10:16 This 20 yrs old Female presents to ER via Wheelchair with complaints of Leg annmarie Pain. 10:16 The patient presents with decreased range of motion, pain, that is acute. The annmarie complaints affect the left knee. Context: The problem was sustained at an unknown site, resulted from an unknown cause, the patient can fully bear weight. Onset: The symptoms/episode began/occurred this morning. Modifying factors: The symptoms are alleviated by remaining still, the symptoms are aggravated by movement, bending knee. Associated signs and symptoms: The patient has no apparent associated signs or symptoms. Treatment prior to arrival includes: no previous treatment. Severity of symptoms: At their worst the symptoms were moderate, in the emergency department the symptoms are unchanged. The patient has not experienced similar symptoms in the past. Historical: - Allergies: 10:09 No Known Allergies; iw - Home Meds: 10:09 None [Active]; iw - PMHx: 10:09 NOSE BLEEDS; seasonal allergies; iw - PSHx: 10:09 None; iw - Immunization history:: Adult Immunizations up to date. - Social history:: Smoking status: . - Family history:: not pertinent. ROS: 10:16 Constitutional: Negative for fever, chills, and weight loss, Eyes: Negative for injury, annmarie pain, redness, and discharge, ENT: Negative for injury, pain, and discharge, Neck: Negative for injury, pain, and swelling, Cardiovascular: Negative for chest pain, palpitations, and edema, Respiratory: Negative for shortness of breath, cough, wheezing, and pleuritic chest pain, Abdomen/GI: Negative for abdominal pain, nausea, vomiting, diarrhea, and constipation, Back: Negative for injury and pain, : Negative for injury, bleeding, discharge, and swelling, Skin: Negative for injury, rash, and discoloration, Neuro: Negative for headache, weakness, numbness, tingling, and seizure, Psych: Negative for depression, anxiety, suicide ideation, homicidal ideation, and hallucinations, Allergy/Immunology: Negative for hives, rash, and allergies, Endocrine: Negative for neck swelling, polydipsia, polyuria, polyphagia, and marked weight changes. 10:16 MS/extremity: Positive for pain, tenderness. Exam: 10:16 Constitutional: This is a well developed, well nourished patient who is awake, alert, annmarie and in no acute distress. Head/Face: Normocephalic, atraumatic. Eyes: Pupils equal round and reactive to light, extra-ocular motions intact. Lids and lashes normal. Conjunctiva and sclera are non-icteric and not injected. Cornea within normal limits. Periorbital areas with no swelling, redness, or edema. ENT: Nares patent. No nasal discharge, no septal abnormalities noted. Tympanic membranes are normal and external auditory canals are clear. Oropharynx with no redness, swelling, or masses, exudates, or evidence of obstruction, uvula midline. Mucous membranes moist. Neck: Trachea midline, no thyromegaly or masses palpated, and no cervical lymphadenopathy. Supple, full range of motion without nuchal rigidity, or vertebral point tenderness. No Meningismus. Chest/axilla: Normal chest wall appearance and motion. Nontender with no deformity. No lesions are appreciated. Cardiovascular: Regular rate and rhythm with a normal S1 and S2. No gallops, murmurs, or rubs. Normal PMI, no JVD. No pulse deficits. Respiratory: Lungs have equal breath sounds bilaterally, clear to auscultation and percussion. No rales, rhonchi or wheezes noted. No increased work of breathing, no retractions or nasal flaring. Abdomen/GI: Soft, non-tender, with normal bowel sounds. No distension or tympany. No guarding or rebound. No evidence of tenderness throughout. Back: No spinal tenderness. No costovertebral tenderness. Full range of motion. Skin: Warm, dry with normal turgor. Normal color with no rashes, no lesions, and no evidence of cellulitis. Neuro: Awake and alert, GCS 15, oriented to person, place, time, and situation. Cranial nerves II-XII grossly intact. Motor strength 5/5 in all extremities. Sensory grossly intact. Cerebellar exam normal. Normal gait. Psych: Awake, alert, with orientation to person, place and time. Behavior, mood, and affect are within normal limits. 10:16 Musculoskeletal/extremity: Extremities: noted in the left knee: decreased ROM, pain. 10:16 Neuro: Orientation: is normal, appropriate for stated age, no acute changes, Mentation: is normal, appropriate for stated age, no acute changes, Memory: is normal, appropriate for stated age, no acute changes, Cranial nerves: grossly normal, is grossly normal based on the patient's age, Motor: is normal, Gait: not tested. Deep tendon reflexes are 2+ (normal) in the bilateral brachioradialis, bicep, tricep and patellar and Achilles tendons. Vital Signs: 10:07 BP 118 / 84; Pulse 96; Resp 16; Temp 97.6; Pulse Ox 100% on R/A; Weight 68.04 kg; iw Height 5 ft. 5 in. (165.10 cm); Pain 7/10; 10:20 BP 129 / 61; Pulse 79; Resp 18; Pulse Ox 97% ; Pain 6/10; ch5 11:10 BP ??? / 129; Pulse 81; Resp 18; Pulse Ox 97% on R/A; Pain 5/10; ch5 10:07 Body Mass Index 24.96 (68.04 kg, 165.10 cm) iw MDM: 10:11 Patient medically screened. [facility] 10:19 Differential diagnosis: closed fracture. Data reviewed: vital signs, nurses notes, lab annmarie test result(s), radiologic studies, plain films. Data interpreted: cable driller: not applicable for this patient encounter. rate is 96 beats/min, rhythm is regular. Test interpretation: by ED physician or midlevel provider: plain radiologic studies. Counseling: I had a detailed discussion with the patient and/or guardian regarding: the historical points, exam findings, and any diagnostic results supporting the discharge/admit diagnosis, lab results, radiology results, the need for outpatient follow up, for definitive care, a family practitioner, a orthopedic surgeon. 04/30 10:15 Order name: Knee Left 3 View XRAY [facility] 04/30 10:15 Order name: Ice pack; Complete Time: 10:26 annmarie 04/30 10:19 Order name: Jose G wrap-joint; Complete Time: 11:10 annmarie 04/30 10:19 Order name: Crutch Training; Complete Time: 11:10 annmarie Administered Medications: 10:27 Drug: Motrin (ibuprofen) 800 mg Route: PO; jd3 Disposition Summary: 04/30/21 10:51 Discharge Ordered Location: Home [facility] Problem: new annmarie Symptoms: have improved annmarie Condition: Stable annmarie Diagnosis - Pain in left knee annmarie Followup: annmarie - With: Private Physician - When: 2 - 3 days - Reason: Recheck today's complaints, Continuance of care, Re-evaluation by your physician Followup: annmarie - With: - When: 2 - 3 days - Reason: Recheck today's complaints, Continuance of care, Re-evaluation by your physician Discharge Instructions: - Discharge Summary Sheet annmarie - Joint Pain annmarie - Musculoskeletal Pain annmarie - Acute Knee Pain, Adult annmarie - Crutch Use, Adult annmarie - Crutch Use, Adult, [id number] annmarie - How to Use Cold Therapy, Pike-md-Avuu annmarie - How to Use Cold Therapy [facility] Forms: - Medication Reconciliation Form [facility] - Thank You Letter annmarie - Antibiotic Education annmarie - Prescription Opioid Use [facility] - Work release form bd Prescriptions: - Ibuprofen 600 mg Oral Tablet - take 1 tablet by ORAL route every 6 hours As needed take with food; 30 tablet; [facility] Refills: 0, Product Selection Permitted Signatures: Dispatcher [employer] EDThomas Rodriguez MD MD cha Williams, Irene, RN RN iw Davies, Jonathon, RN RN jd3 Heath, Christopher, RN RN 5 Corrections: (The following items were deleted from the chart) 11:10 10:15 Urine Dipstick-Ancillary ordered. [place] [id number] 11:10 10:15 Urine Test ordered. [place] [id number]
[2021-04-30 11:24] VITALS: TEMP 97.6
[2021-04-30 11:25] VITALS: BP 129/61; O2SAT 97
== END 2021-04-30 11:11 | disposition home or self-care (01) ==
LOC: ER 10:00
DX: M25.562 Pain in left knee (principal)
CPT/HCPCS: 99283

== ENCOUNTER 2021-05-28 01:00 | Emergency (ER) | payer OTHER ==
[2021-05-28 02:32] LABS: Urine Blood Negative (Negative); Urine Glucose Negative (Negative); Urine Protein Negative (Negative); Urine Specific Gravity 1.015 (1.005-1.030); Urine pH 5.5 (5.0-7.0)
[2021-05-28 02:37] LABS: Absolute Lymphocytes (CBC) 3.2 K/uL (0.7-4.9); Basophils % 0.6 % (0-1.3); Hematocrit 42.4 % (36.0-45.0); Lymphocytes % 30.7 % (15.3-44.8); MPV 8.9 fL (7.6-11.3); RBC Red Blood Cell Count 4.69 M/uL (3.86-4.86)
[2021-05-28 02:55] LABS: ALT/SGPT 27 U/L (12-78); AST/SGOT 15 U/L (15-37); Alkaline Phosphatase 85 U/L (45-117); BUN Blood Urea Nitrogen 8 mg/dL (7-18); Bicarbonate 27 mmol/L (21-32); Bilirubin Direct 0.2 mg/dL (0-0.2); Bilirubin Total 0.5 mg/dL (0.2-1.0); Glucose Level 90 mg/dL (74-106); Lipase 83 U/L (73-393); Potassium 3.7 mmol/L (3.5-5.1); Protein, Total 7.5 g/dL (6.4-8.2); Sodium Level 142 mmol/L (136-145); Urine Bacteria 20-50 /HPF (<20); Urine RBC <5 /HPF (NONE SEEN)
[2021-05-28] MEDS ORDERED: NA CHLORIDE 0.9% 1,000 ML ONE (04:15)
--- NOTE | 2021-05-28 04:33 | ER ---
Nurse's Notes [facility] Name: aMylin Zuniga Age: 21 yrs Sex: Female : 2000 Arrival Date: 05/28/2021 Time: 01:03 Bed 13 Private MD: Diagnosis: UTI/ Urinary tract infection, site not specified;Lower abdominal pain, unspecified Presentation: 05/28 02:04 Chief complaint: Patient states: Pt c/o abdominal pain onset "in the morning when I bc5 woke up for work". Pt denies N/V/D/C and urinary symptoms at this time. Coronavirus screen: Vaccine status: Patient reports receiving the 2nd dose of the covid vaccine. Ebola Screen: Patient negative for fever greater than or equal to 101.5 degrees Fahrenheit, and additional compatible Ebola Virus Disease symptoms Patient denies exposure to infectious person. Patient denies travel to an Ebola-affected area in the 21 days before illness onset. No symptoms or risks identified at this time. Initial Sepsis Screen: Does the patient meet any 2 criteria? No. Patient's initial sepsis screen is negative. Does the patient have a suspected source of infection? No. Patient's initial sepsis screen is negative. Risk Assessment: Do you want to hurt yourself or someone else? Patient reports no desire to harm self or others. Onset of symptoms was May 27, 2021. 02:04 Method Of Arrival: Ambulatory bc5 02:04 Acuity: VINNY 3 bc5 Triage Assessment: 02:07 General: Appears in no apparent distress. distressed, comfortable, Behavior is calm, bc5 cooperative, appropriate for age. Pain: Complains of pain in abdomen. GI: Reports lower abdominal pain. HRIS ADMINISTRATOR: 02:09 LMP N/A - control method bc5 Historical: - Allergies: 02:06 NKDA; bc5 - Home Meds: 02:06 None [Active]; bc5 - PMHx: 02:06 seasonal allergies; bc5 02:08 NOSE BLEEDS; bc5 - PSHx: 02:06 None; bc5 - Immunization history:: Adult Immunizations up to date. - Social history:: Smoking status: Patient denies any tobacco usage or history of. Screenin:08 Abuse screen: Denies threats or abuse. Denies injuries from another. Nutritional bc5 screening: No deficits noted. Tuberculosis screening: No symptoms or risk factors identified. Fall Risk None identified. Assessment: 02:07 Neuro: No deficits noted. Cardiovascular: No deficits noted. Respiratory: No deficits bc5 noted. GI: No deficits noted. Bowel sounds present X 4 quads. Abd is soft and non tender X 4 quads. : No deficits noted. Vital Signs: 02:04 BP 125 / 74; Pulse 84; Resp 16; Temp 97.9(O); Pulse Ox 100% on R/A; Weight 72.57 kg bc5 (R); Height 5 ft. 5 in. (165.10 cm) (R); Pain 6/10; 04:58 BP 128 / 81; Pulse 80; Resp 15; Temp 98.7(O); Pulse Ox 100% on R/A; Pain 0/10; bc5 02:04 Body Mass Index 26.63 (72.57 kg, 165.10 cm) bc5 ED Course: 01:03 Patient arrived in ED. bp1 01:49 Aime Curtis MD is Attending Physician. 7 02:04 Martina Artis RN is Primary Nurse. bc5 02:06 Triage completed. bc5 02:08 No provider procedures requiring assistance completed. bc5 02:08 Arm band placed on right wrist. bc5 02:08 Patient has correct armband on for positive identification. Placed in gown. Bed in low bc5 position. Call light in reach. Side rails up X 1. 02:35 Basic Metabolic Panel Sent. bc5 02:36 Urine Microscopic Only Sent. bc5 02:36 Inserted saline lock: 20 gauge in left antecubital area, using aseptic technique. bc5 03:51 CT Abd/Pelvis - IV Contrast Only In Process Unspecified. EDMS 04:59 IV discontinued, intact, bleeding controlled, No redness/swelling at site. Pressure bc5 dressing applied. Administered Medications: 03:53 Drug: NS 0.9% 1000 ml Route: IV; Rate: 1000 ml; Site: left antecubital; bc5 04:48 Follow up: IV Status: Completed infusion; IV Intake: 1000ml bc5 04:58 Drug: Bactrim (trimethoprim-sulfamethoxazole) (160 mg-800 mg (DS) 1 tablet Route: PO; bc5 Intake: 04:48 IV: 1000ml; Total: 1000ml. bc5 Outcome: 04:33 Discharge ordered by . edwin 04:59 Discharged to home ambulatory, with significant other. [facility] 04:59 Condition: improved 04:59 Discharge instructions given to patient, significant other, Instructed on discharge instructions, follow up and referral plans. medication usage, Prescriptions given X 2. 04:59 Patient left the ED. bc5 Signatures: Dispatcher [employer] EDMS Olamide Barton Maurice, MD MD [facility] Martina Artis, RN RN 5
--- NOTE | 2021-05-28 04:33 | EDPHYS ---
Physician Documentation [facility] Name: Maylin Zuniga Age: 21 yrs Sex: Female : 2000 Arrival Date: 05/28/2021 Time: 01:03 Bed 13 Private MD: ED Physician Aime Curtis HPI: 05/28 02:04 This 21 yrs old Female presents to ER via Unassigned with complaints of mh7 Abdominal Pain. 02:04 The patient presents with abdominal pain in the lower abdomen. Onset: The mh7 symptoms/episode began/occurred yesterday. The symptoms do not radiate. Associated signs and symptoms: Pertinent negatives: nausea, vomiting, and diarrhea, nausea and vomiting, anorexia, blood in stools, chest pain, constipation, diarrhea, dysuria, fever, headache, hematuria, nausea, palpitations, shortness of breath, vaginal discharge, vomiting, vomiting blood. The symptoms are described as crampy. Modifying factors: The symptoms are alleviated by nothing, the symptoms are aggravated by nothing. Severity of pain: At its worst the pain was moderate yesterday, in the emergency department the pain has improved moderately. 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 - Social history:: Smoking status: Patient denies any tobacco usage or history of. ROS: 02:04 Constitutional: Negative for fever, chills, and weight loss, Eyes: Negative for injury, mh7 pain, redness, and discharge, ENT: Negative for injury, pain, and discharge, Neck: Negative for injury, pain, and swelling, Cardiovascular: Negative for chest pain, palpitations, and edema, Respiratory: Negative for shortness of breath, cough, wheezing, and pleuritic chest pain, Back: Negative for injury and pain, : Negative for injury, bleeding, discharge, and swelling, MS/Extremity: Negative for injury and deformity, Skin: Negative for injury, rash, and discoloration, Neuro: Negative for headache, weakness, numbness, tingling, and seizure, Psych: Negative for depression, anxiety, suicide ideation, homicidal ideation, and hallucinations, Allergy/Immunology: Negative for hives, rash, and allergies, Endocrine: Negative for neck swelling, polydipsia, polyuria, polyphagia, and marked weight changes, Hematologic/Lymphatic: Negative for swollen nodes, abnormal bleeding, and unusual bruising. Exam: 02:04 Constitutional: This is a well developed, well nourished patient who is awake, alert, mh7 and in no acute distress. Head/Face: Normocephalic, atraumatic. Eyes: Pupils equal round and reactive to light, extra-ocular motions intact. Lids and lashes normal. Conjunctiva and sclera are non-icteric and not injected. Cornea within normal limits. Periorbital areas with no swelling, redness, or edema. Neck: Trachea midline, no thyromegaly or masses palpated, and no cervical lymphadenopathy. Supple, full range of motion without nuchal rigidity, or vertebral point tenderness. No Meningismus. Chest/axilla: Normal chest wall appearance and motion. Nontender with no deformity. No lesions are appreciated. Cardiovascular: Regular rate and rhythm with a normal S1 and S2. No gallops, murmurs, or rubs. Normal PMI, no JVD. No pulse deficits. Respiratory: Lungs have equal breath sounds bilaterally, clear to auscultation and percussion. No rales, rhonchi or wheezes noted. No increased work of breathing, no retractions or nasal flaring. Back: No spinal tenderness. No costovertebral tenderness. Full range of motion. Skin: Warm, dry with normal turgor. Normal color with no rashes, no lesions, and no evidence of cellulitis. MS/ Extremity: Pulses equal, no cyanosis. Neurovascular intact. Full, normal range of motion. Neuro: Awake and alert, GCS 15, oriented to person, place, time, and situation. Cranial nerves II-XII grossly intact. Motor strength 5/5 in all extremities. Sensory grossly intact. Cerebellar exam normal. Normal gait. Psych: Awake, alert, with orientation to person, place and time. Behavior, mood, and affect are within normal limits. 02:04 Abdomen/GI: Inspection: abdomen appears normal, Bowel sounds: normal, in all quadrants, mh7 Palpation: moderate abdominal tenderness, in the suprapubic area, right lower quadrant and left lower quadrant, mass, is not appreciated, rebound tenderness, is not appreciated, voluntary guarding, is not appreciated, involuntary guarding, is not appreciated, no appreciated organomegaly, Rectal exam: the exam is deferred, because of patient request, Indicators: McBurney's point is not tender, Molina's sign is negative, Rovsing's sign is negative, Obturator sign is negative, Psoas sign is negative, Liver: no appreciated palpable abnormalities, Hernia: not appreciated. Vital Signs: 02:04 BP 125 / 74; Pulse 84; Resp 16; Temp 97.9(O); Pulse Ox 100% on R/A; Weight 72.57 kg bc5 (R); Height 5 ft. 5 in. (165.10 cm) (R); Pain 6/10; 04:58 BP 128 / 81; Pulse 80; Resp 15; Temp 98.7(O); Pulse Ox 100% on R/A; Pain 0/10; bc5 02:04 Body Mass Index 26.63 (72.57 kg, 165.10 cm) 5 MDM: 04:31 Differential diagnosis: appendicitis, bowel obstruction, Ectopic , 7 non-specific abd pain, Ureterolithiasis, urinary tract infection. Data reviewed: vital signs, nurses notes, old medical records, lab test result(s), CBC, electrolytes, urinalysis, radiologic studies, CT scan. Data interpreted: Pulse oximetry: on room air is 100 %. Interpretation: normal. Counseling: I had a detailed discussion with the patient and/or guardian regarding: the historical points, exam findings, and any diagnostic results supporting the discharge/admit diagnosis, lab results, radiology results, the need for outpatient follow up, to return to the emergency department if symptoms worsen or persist or if there are any questions or concerns that arise at home. Response to treatment: the patient's symptoms have markedly improved after treatment. 04:31 Refusal of service: The patient/guardian displays adequate decision making capability [facility] and despite a detailed discussion of alternatives, benefits, risks, and consequences refuses: Medications, Pain medication. 04:33 Patient medically screened. [facility] 05/28 01:58 Order name: Basic Metabolic Panel [facility] 05/28 01:58 Order name: CBC with Diff; Complete Time: 02:59 [facility] 05/28 01:58 Order name: Hepatic Function; Complete Time: 02:59 [facility] 05/28 01:58 Order name: Lipase; Complete Time: 02:59 [facility] 05/28 01:59 Order name: Basic Metabolic Panel; Complete Time: 02:59 [facility] 05/28 02:32 Order name: Urine Dipstick-Ancillary; Complete Time: 02:33 [facility] 05/28 01:58 Order name: IV Saline Lock; Complete Time: 02:35 [facility] 05/28 01:58 Order name: Labs collected and sent; Complete Time: 02:35 [facility] 05/28 02:33 Order name: Urine Microscopic Only; Complete Time: 02:59 [facility] 05/28 02:56 Order name: Urine Culture [facility] 05/28 03:00 Order name: Urine Culture [facility] 05/28 03:00 Order name: CT Abd/Pelvis - IV Contrast Only [facility] 05/28 01:58 Order name: Urine Dipstick-Ancillary (obtain specimen); Complete Time: 02:35 [facility] 05/28 01:58 Order name: Urine Test (obtain specimen); Complete Time: 02:36 [facility] Administered Medications: 03:53 Drug: NS 0.9% 1000 ml Route: IV; Rate: 1000 ml; Site: left antecubital; 5 04:48 Follow up: IV Status: Completed infusion; IV Intake: 1000ml [facility] 04:58 Drug: Bactrim (trimethoprim-sulfamethoxazole) (160 mg-800 mg (DS) 1 tablet Route: PO; bc5 Disposition Summary: 05/28/21 04:33 Discharge Ordered Location: Home [facility] Problem: new [facility] Symptoms: have improved [facility] Condition: Stable [facility] Diagnosis - UTI/ Urinary tract infection, site not specified 7 - Lower abdominal pain, unspecified [facility] Followup: [facility] - With: Private Physician - When: 1 - 2 days - Reason: Worsening of condition, Recheck today's complaints, Continuance of care, Re-evaluation by your physician Discharge Instructions: - Discharge Summary Sheet [facility] - Urinary Tract Infection, Adult, [id number] mh7 - Abdominal Pain, Adult, [id number] [facility] - Form - Excuse from Work, School, or Physical Activity [facility] Forms: - Medication Reconciliation Form [facility] - Thank You Letter mh7 - Antibiotic Education [facility] - Prescription Opioid Use [facility] Prescriptions: - Pyridium 200 mg Oral Tablet - take 1 tablet by ORAL route every 8 hours for 2 days; 6 tablet; Refills: 0, [facility] Product Selection Permitted - Bactrim DS 800-160 mg Oral Tablet - take 1 tablet by ORAL route every 12 hours for 7 days; 14 tablet; Refills: 0, [facility] Product Selection Permitted Signatures: Dispatcher [employer] Aime Wu MD MD [facility] Martina Artis RN RN 5
[2021-05-28 05:12] VITALS: O2SAT 100
[2021-05-28] MEDS ORDERED: SMZ./TMP. 800/160 MG TABLET ONE (05:15)
[2021-05-28 05:16] VITALS: BP 128/81; TEMP 98.7
--- NOTE | 2021-05-29 12:22 | RAD REPORT ---
EXAM DESCRIPTION: CT - Abdomen Pelvis W Contrast - 05/28/2021 5:55 am CLINICAL HISTORY: 21 years, Female, ABD PAIN COMPARISON: 06/03/2020 TECHNIQUE: Contrast-enhanced images of the abdomen and pelvis were performed utilizing 5 mm slice th ickness at 5 mm interval reconstruction from the lung bases to the ischial tuberosities after the adm inistration of 100 cc of Omnipaque 350 at the rate of 3.0 cc/sec. In addition multiplanar reformats in the coronal and sagittal plane were obtained and reviewed. This exam was performed according to our departmental dose-optimization protocol, which includes auto mated exposure control, adjustment of the mA and/or kV according to patient size and/or use of iterat ely reconstruction technique. FINDINGS: The lung bases demonstrate to be clear. The liver, gallbladder, pancreas, spleen and adrenal glands demonstrate to be unremarkable, no focal lesions are noted. The kidneys demonstrate normal uptake of contrast media. No evidence for nephrolithiasis and/or hydro nephrosis. Grossly the unopacified stomach, small bowel and large bowel demonstrate to be within normal limits. There is no evidence for bowel dilatation/or free air. The appendix is normal. The urinary bladder demonstrate to be unremarkable. The uterus is unremarkable. There are no adnexa l masses. The aorta demonstrate to be normal. There is no retroperitoneal lymphadenopathy. There is no evidence for ascites and/or significant abnormal fluid collections. The rest of the soft tissue and bony structures are within normal limits. IMPRESSION: No acute intra-abdominal process. Unremarkable CT scan of the abdomen and pelvis with contrast. Electronically signed by: Ryan Yi MD 05/28/2021 4:12 AM CDT Due to temporary technical issues with the PACS/Fluency reporting system, reports are being signed by the in house radiologist without review as a courtesy to ensure prompt reporting. The interpreting r adiologist is fully responsible for the content of the report.
== END 2021-05-28 04:59 | disposition home or self-care (01) ==
LOC: ER 01:00
DX: N39.0 Urinary tract infection, site not specified (principal)
CPT/HCPCS: 87088 ×2; 85025; 87086 ×2; 80048; 36415; 80076; 83690; 74177; 96360; 99284; Q9967; J7030; 81003; 81015

== ENCOUNTER 2021-06-09 18:20 | Emergency (ER) | payer OTHER ==
[2021-06-09 21:22] LABS: Absolute Lymphocytes (CBC) 2.3 K/uL (0.7-4.9); Basophils % 0.6 % (0-1.3); Hematocrit 42.2 % (36.0-45.0); Lymphocytes % 23.9 % (15.3-44.8); MPV 9.1 fL (7.6-11.3); RBC Red Blood Cell Count 4.67 M/uL (3.86-4.86)
--- NOTE | 2021-06-09 21:29 | EDPHYS ---
Physician Documentation [facility] Name: Maylin Zuniga Age: 21 yrs Sex: Female : 2000 Arrival Date: 06/09/2021 Time: 18:21 Bed 19 Private MD: ED Physician Franchesca Steele HPI: 06/09 21:20 This 21 yrs old Female presents to ER via Ambulatory with complaints of Nose kb Bleed, Dizziness. 21:20 The patient presents with a nose bleed, and the bleeding resolved prior to arrival. kb Onset: The symptoms/episode began/occurred yesterday. Modifying factors: The symptoms are alleviated by nothing. the symptoms are aggravated by nothing. Associated signs and symptoms: Loss of consciousness: the patient experienced no loss of consciousness, Pertinent positives: dizziness. Severity of symptoms: At their worst the symptoms were mild in the emergency department the symptoms are unchanged. The patient has not experienced similar symptoms in the past. The patient has not recently seen a physician. Pt reports she had a nosebleed yesterday then again today. States she lost a lot of blood and now has dizziness when she changes positions/moves around so she just wanted to get checked out. Reports her nose stopped bleeding on its own. States this happened a long time ago and was told she probably needed an area to be cauterized, but she didn't want that done. . 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 - Social history:: Smoking status: Patient denies any tobacco usage or history of. ROS: 21:19 Constitutional: Negative for fever, chills, and weight loss. kb 21:19 ENT: Positive for nose bleed. 21:19 Neuro: Positive for dizziness. 21:19 All other systems are negative. Exam: 21:19 Constitutional: This is a well developed, well nourished patient who is awake, alert, kb and in no acute distress. Head/Face: Normocephalic, atraumatic. Eyes: Pupils equal round and reactive to light, extra-ocular motions intact. Lids and lashes normal. Conjunctiva and sclera are non-icteric and not injected. Cornea within normal limits. Periorbital areas with no swelling, redness, or edema. ENT: Moist Mucous membranes Cardiovascular: Regular rate and rhythm with a normal S1 and S2. No gallops, murmurs, or rubs. No pulse deficits. Respiratory: Respirations even and unlabored. No increased work of breathing, no retractions or nasal flaring. Skin: Warm, dry with normal turgor. Normal color. MS/ Extremity: Pulses equal, no cyanosis. Neurovascular intact. Full, normal range of motion. Neuro: Awake and alert, GCS 15, oriented to person, place, time, and situation. Moves all extremities. Normal gait. Psych: Awake, alert, with orientation to person, place and time. Behavior, mood, and affect are within normal limits. Vital Signs: 18:39 BP 171 / 104; Pulse 98; Resp 17; Temp 97.6; Pulse Ox 98% ; Weight 77.11 kg; Height 5 ll1 ft. 5 in. (165.10 cm); Pain 7/10; 18:58 BP 127 / 82; Pulse 95; Resp 14; Pulse Ox 98% ; dh4 19:21 BP 132 / 63 Supine; Pulse 78; Resp 20; Temp 98.5; Pulse Ox 97% on R/A; cc4 19:22 BP 134 / 74 Sitting; Pulse 80; Resp 20; Pulse Ox 98% on R/A; cc4 19:23 BP 140 / 71 Standing; Pulse 118; Resp 20; Pulse Ox 98% on R/A; cc4 18:39 Body Mass Index 28.29 (77.11 kg, 165.10 cm) ll1 MDM: 19:00 Patient medically screened. kb 21:19 Data reviewed: vital signs, nurses notes. Data interpreted: Pulse oximetry: on room air kb is 98 %. Interpretation: normal. 21:22 Counseling: I had a detailed discussion with the patient and/or guardian regarding: the kb historical points, exam findings, and any diagnostic results supporting the discharge/admit diagnosis, lab results, the need for outpatient follow up, an ENT specialist, to return to the emergency department if symptoms worsen or persist or if there are any questions or concerns that arise at home. 21:46 ED course: Pt refuses IV. States she will drink more fluids to hydrate herself. Reports kb she can't drink a lot at work because they don't allow many bathroom breaks and she will get into trouble. 06/09 19:07 Order name: CBC with Diff; Complete Time: 21:28 kb 06/09 19:07 Order name: Orthostatics; Complete Time: 20:04 kb Administered Medications: 06/10 06:01 Not Given (Patient Refused): NS 0.9% 1000 ml IV at 1000 ml once cc4 Disposition Summary: 06/09/21 21:28 Discharge Ordered Location: Home kb Condition: Stable kb Diagnosis - Volume depletion, unspecified kb - Epistaxis kb Followup: kb - With: Emergency Department - When: As needed - Reason: Worsening of condition Followup: kb - With: Private Physician - When: 2 - 3 days - Reason: Recheck today's complaints, Continuance of care, Re-evaluation by your physician Discharge Instructions: - Nosebleed, Adult, Oyoz-er-Iput kb - Discharge Summary Sheet ll1 Forms: - Medication Reconciliation Form kb - Thank You Letter kb - Antibiotic Education kb - Prescription Opioid Use kb - Work release form ll1 Addendum: 06/12/2021 23:01 Co-signature as Attending Physician, Franchesca Steele MD. m a2 Signatures: Dispatcher [employer] Felicia Deluca, MICHAELA-Patricio JENNINGS-Franchesca Rush MD MD ma2 Fang Jauregui RN RN ll1 Aviva Figueroa RN cc4
--- NOTE | 2021-06-09 21:29 | ER ---
Nurse's Notes [facility] Name: Maylin Zuniga Age: 21 yrs Sex: Female : 2000 Arrival Date: 06/09/2021 Time: 18:21 Bed 19 Private MD: Diagnosis: Volume depletion, unspecified;Epistaxis Presentation: 06/09 18:39 Chief complaint: Patient states: Spontaneous nose bleed once yesterday morning, stopped ll1 on it own. Today, awoke in blood from her nose bleeding. States she passed out, feels weak, and dizzy today. Needs a work release. Coronavirus screen: Vaccine status: Patient reports receiving the 2nd dose of the covid vaccine. Client denies travel out of the [place] in the last 14 days. At this time, the client does not indicate any symptoms associated with coronavirus-19. Ebola Screen: Patient denies travel to an Ebola-affected area in the 21 days before illness onset. Initial Sepsis Screen: Does the patient meet any 2 criteria? HR > 90 bpm. No. Patient's initial sepsis screen is negative. Does the patient have a suspected source of infection? No. Patient's initial sepsis screen is negative. Risk Assessment: Do you want to hurt yourself or someone else? Patient reports no desire to harm self or others. Onset of symptoms was June 08, 2021. 18:39 Method Of Arrival: Ambulatory ll1 18:39 Acuity: VINNY 3 ll1 Triage Assessment: 19:21 General: Appears in no apparent distress. Behavior is calm, cooperative. Pain: Denies cc4 pain. 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 - Social history:: Smoking status: Patient denies any tobacco usage or history of. Screenin:21 Abuse screen: Denies threats or abuse. Nutritional screening: No deficits noted. cc4 Tuberculosis screening: No symptoms or risk factors identified. Fall Risk None identified. Assessment: 19:21 Reassessment: Patient appears in no apparent distress at this time. Reports having cc4 Xenon implant of right upper arm with no menses x 107 days. General: Appears in no apparent distress. Pain: Denies pain. Neuro: No deficits noted. Level of Consciousness is awake, alert, obeys commands, Oriented to person, place, time, situation. Cardiovascular: Denies chest pain. Respiratory: No deficits noted. Airway is patent. GI: No deficits noted. No signs and/or symptoms were reported involving the gastrointestinal system. Abdomen is flat, non-distended, Bowel sounds present X 4 quads. : No signs and/or symptoms were reported regarding the genitourinary system. EENT: No deficits noted. No signs and/or symptoms were reported regarding the EENT system. Eyes Clear. Nares are clear Oral mucosa is moist. Derm: No deficits noted. No signs and/or symptoms reported regarding the dermatologic system. Skin is intact. Musculoskeletal: No deficits noted. No signs and/or symptoms reported regarding the musculoskeletal system. Capillary refill < 3 seconds, Range of motion: intact in all extremities. 20:00 Reassessment: Patient appears in no apparent distress at this time. Resting quietly; no cc4 nasal bleeding noted; NAD. 21:15 Reassessment: Patient appears in no apparent distress at this time. No nasal bleeding cc4 noted during stay in ED; refusing IVF as ordered; refusing to be stuck for IV; NAD. Vital Signs: 18:39 BP 171 / 104; Pulse 98; Resp 17; Temp 97.6; Pulse Ox 98% ; Weight 77.11 kg; Height 5 ll1 ft. 5 in. (165.10 cm); Pain 7/10; 18:58 BP 127 / 82; Pulse 95; Resp 14; Pulse Ox 98% ; dh4 19:21 BP 132 / 63 Supine; Pulse 78; Resp 20; Temp 98.5; Pulse Ox 97% on R/A; cc4 19:22 BP 134 / 74 Sitting; Pulse 80; Resp 20; Pulse Ox 98% on R/A; cc4 19:23 BP 140 / 71 Standing; Pulse 118; Resp 20; Pulse Ox 98% on R/A; cc4 18:39 Body Mass Index 28.29 (77.11 kg, 165.10 cm) ll1 ED Course: 18:21 Patient arrived in ED. am2 18:42 Triage completed. ll1 18:43 Arm band placed on Patient placed in an exam room, on a stretcher. ll1 18:45 Eliza López is Primary Nurse. jw6 19:00 Felicia Swanson FNP-C is [facility]. kb 19:00 Franchesca Steele MD is Attending Physician. kb 19:21 Patient has correct armband on for positive identification. Bed in low position. Call cc4 light in reach. Side rails up X 1. Pulse ox on. NIBP on. 19:21 No provider procedures requiring assistance completed. cc4 20:04 CBC with Diff Sent. cc4 21:15 Patient did not have IV access during this emergency room visit. cc4 Administered Medications: 06/10 06:01 Not Given (Patient Refused): NS 0.9% 1000 ml IV at 1000 ml once cc4 Outcome: 06/09 19:21 Condition: stable cc4 21:15 Discharged to home ambulatory. cc4 21:15 Discharge instructions given to patient, Instructed on discharge instructions, follow up and referral plans. Demonstrated understanding of instructions, follow-up care. 21:28 Discharge ordered by . kb 21:59 Patient left the ED. ld1 Signatures: Felicia Swanson FNP-C FNP-Ckb Moreno, Amanda am2 Doug Velazquez 4 Fang Jauregui RN RN 1 Jessica Luo RN RN ld1 Aviva Figueroa, BILLIE RN cc4 Eliza López jw6 Corrections: (The following items were deleted from the chart) 18:48 18:39 Chief complaint: Patient states: Spontaneous nose bleed once yesterday morning, ll1 stopped on it own. Today, awoke in blood. States she passed out, feels weak, and dizzy today. ll1 19:36 19:21 BP 132 / 63; Pulse 78bpm; Resp 20bpm; Pulse Ox 97% RA; Temp 98.5F; cc4 cc4
[2021-06-09 22:16] VITALS: TEMP 98.5
[2021-06-09 22:17] VITALS: O2SAT 98
[2021-06-09 22:18] VITALS: BP 140/71
== END 2021-06-09 21:59 | disposition home or self-care (01) ==
LOC: ER 18:20
DX: E86.9 Volume depletion, unspecified (principal); R04.0 Epistaxis
CPT/HCPCS: 36415; 85025; 99283

== ENCOUNTER 2021-07-22 22:35 | Emergency (ER) | payer OTHER ==
--- OUTSIDE RECORDS SUMMARY | 2021-07-22 22:39 | XMS REPORT | Continuity of Care Document ---
:2000 Author Organization [facility] t Address [address] [place] [address] Care Team Providers Name Role Phone Ivan Joseph Primary Care Physician MAURY Attending Clinician Unavailable Chris JENNINGS R Attending Clinician Akinsijulianna GALLARDOP, C Attending Clinician Raju_P Attending Clinician Unavailable Raju_P Admitting Clinician Unavailable Payers Payer Name Policy Type Policy Number Effective Date Expiration Date [facility] [id number] 2020 CHOICE MEDICAID 00:00:00 Problems Condition Condition Condition Status Onset Resolution Last Treating Co mments Source Name Details Category Date Date Treatment Clinician Date Feeling Feeling Disease Active Univers sad sad 5-21 ity of 00:00: [address] Branch Nexplanon Nexplanon Disease Active Uni vers insertion insertion 5-07 ity of 00:00: [address] Class 1 Class 1 Disease Active Univers [...] present y present BMI BMI Disease Active 2021-0 Univers 33.0-33.9, 33.0-33.9, 3-24 it y of adult adult 00:00: [place] [facility] Absence of Absence of Disease Active U nivers menstruati menstruati 3-24 it y of on on 00:00: [place] [address] Medical Branch Breast Breast Disease Active Univers tenderness tenderness 3-24 it y of in female in female 00:00: [place] [facility] Elevated Elevated Disease Active Unive rs blood blood 2-21 ity of pressure pressure 00:00: [place] reading reading 00 Medical without without Branch diagnosis diagnosis of of hypertensi hypertensi on on Other Other Disease Active Univers depression depression 1-09 it y of 00:00: [place] [facility] Nexplanon Nexplanon Disease Active Uni vers in place in place 08-20 ity of 00:00: [address] Screening Screening Disease Active Uni vers examinatio examinatio 08-20 it y of n for STD n for STD 00:00: [place] (sexually (sexually 00 Medi danni transmitte transmitte Br anch d disease) d disease) BMI BMI Disease Active 2018-08 Univers 29.0-29.9, 29.0-29.9, 0-16 it y of adult adult 00:00: [place] [facility] HPV HPV Disease Active 2018-08 Univers vaccine vaccine 0-16 ity of counseling counseling 00:[place] [facility] Overweight Overweight Disease Active 2018-08 U nivers 0-16 ity of 00:00: [place] [facility] Lump or Lump or Disease Active Univers mass in mass in 4-13 ity of breast breast 00:00: [place] [facility] Nexplanon Nexplanon Disease Resolve 2019-08-20 2019-08-20 Univers insertion insertion d 4-13 00:00:00 15:53:54 ity of 00:00: [address] Branch Allergies, Adverse Reactions, Alerts Allergy Allergy Status Severity Reaction(s) Onset Inactive Treating Comm ents Source Name Type Date Date Clinician NO KNOWN Drug Active Univers ALLERGIE Class ity of S [facility] Social History Social Habit Start Date Stop Date Quantity Comments Source Exposure to Not sure University of SARS-CoV-2 [place] [facility] (event) Branch Alcohol intake 2021-06-13 2021-06-13 Current University 00:00:00 00:00:00 non-drinker of [facility] alcohol [place] (finding) Tobacco use and 2014-11-22 2014-11-22 Never used Universit y of exposure 00:00:00 00:00:00 [facility] Sex Assigned At [birth year] Universit y of 00:00:00 00:00:00 [facility] Smoking Status Start Date Stop Date Source Never smoker [facility] Medications Ordered Filled Start Stop Current Ordering Indication Dosage Frequency Signature Comments Components Source Medication Medication Date Date Medication? Clinician (SIG) Name Name No known 2020-08 No Univers medications 08-13 ity of 10:34: [place] [id number] [facility] [place] etonogestre 2020- No Nexplanon 68mg Univers L 12-16 05-07 insertion ity of (NEXPLANON) 15:45: 14:44 [place] implant 68 00 :00 Medical mg [place] etonogestre 2020- No [id number] 68mg 68 mg, Univers L 12-16 05-07 Subdermal, ity of (NEXPLANON) 15:45: 14:44 ONCE NOW, [place] implant 68 00 :00 1 dose, Medica l mg Sat12/16/20 Branch at 1045, Routine
Use approved by: OPHTHALMIC MEDICAL ASSISTANT etonogestre 2020- No Nexplanon 68mg Univers L 5- 05-07 insertion ity of (NEXPLANON) 15:45: 14:44 [place] implant 68 00 :00 Medical mg Branch etonogestre 2020- No [id number] 68mg 68 mg, Univers L - 05-07 Subdermal, ity of (NEXPLANON) 15:45: 14:44 ONCE NOW, [place] implant 68 00 :00 1 dose, Medica l mg Sat12/16/20 Branch at 1045, Routine
Use approved by: OPHTHALMIC MEDICAL ASSISTANT Immunizations Ordered Immunization Filled Immunization Date Status Commen ts Source Name Name HPV9 2019-08-25 Completed University of 00:00:00 [facility] HPV9 2019-08-25 Completed University of 00:00:00 [facility] HPV9 2019-08-25 Completed University of 00:00:00 [facility] HPV9 2019-05-27 Completed University of 00:00:00 [facility] HPV9 2019-05-27 Completed University of 00:00:00 [facility] HPV9 2019-05-27 Completed University of 00:00:00 [facility] TDAP (ADACEL) 2014-06-24 Completed University of VACCINE 00:00:00 [facility] Meningococcal 2014-06-24 Completed University of Vaccine 00:00:00 [facility] TDAP (ADACEL) 2014-06-24 Completed University of VACCINE 00:00:00 [facility] Meningococcal 2014-06-24 Completed University of Vaccine 00:00:00 [facility] TDAP (ADACEL) 2014-06-24 Completed University of VACCINE 00:00:00 [facility] Meningococcal 2014-06-24 Completed University of Vaccine 00:00:00 [facility] TDAP (ADACEL) 2013-03-12 Completed University of VACCINE 00:00:00 [facility] TDAP (ADACEL) 2013-03-12 Completed University of VACCINE 00:00:00 [facility] TDAP (ADACEL) 2013-03-12 Completed University of VACCINE 00:00:00 [facility] Vital Signs Vital Name Observation Time Observation Value Comments Source Systolic blood 2021-06-13 15:18:00 130 mm[Hg] Univer sity of pressure [facility] Diastolic blood 2021-06-13 15:18:00 79 mm[Hg] Unive rsity of pressure [facility] Heart rate 2021-06-13 15:18:00 89 /min [facility] Body temperature 2021-06-13 15:18:00 36.28 [facility] Respiratory rate 2021-06-13 15:18:00 18 /min [facility] Body height 2021-06-13 15:18:00 165.1 cm [facility] Body weight 2021-06-13 15:18:00 90.039 kg [facility] BMI 2021-06-13 15:18:00 33.03 kg/m2 [facility] Oxygen saturation in 2021-06-13 15:18:00 100 /min [facility] Arterial blood by [facility] Pulse oximetry Branch Systolic blood 2020-12-16 14:02:00 133 mm[Hg] Univer sity of pressure [facility] Diastolic blood 2020-12-16 14:02:00 85 mm[Hg] Unive rsity of pressure [facility] Heart rate 2020-12-16 14:02:00 89 /min [facility] Body temperature 2020-12-16 14:02:00 36.56 [facility] Respiratory rate 2020-12-16 14:02:00 16 /min [facility] Body height 2020-12-16 14:02:00 165.1 cm [facility] Body weight 2020-12-16 14:02:00 89.444 kg [facility] BMI 2020-12-16 14:02:00 32.81 kg/m2 [facility] Procedures Procedure Date / Time Performed Performing Clinician Sour e POCT TEST 2021-06-13 00:00:00 Cindy Mendiola [facility] POCT TEST 2020-12-16 14:24:00 Floridalma Castellanos [facility] Plan of Care Planned Activity Planned Date Details Comments Source Future Scheduled 2024-06-24 DTaP,Tdap,and Td Univers ity of Test 00:00:00 Vaccines (3 - Td) [facility] [code = Branch DTaP,Tdap,and Td Vaccines (3 - Td)] Future Scheduled 2024-06-24 DTaP,Tdap,and Td Univers ity of Test 00:00:00 Vaccines (3 - Td) [facility] [code = Branch DTaP,Tdap,and Td Vaccines (3 [...] Screening for University of Test 00:00:00 Chlamydia [place] [facility] trachomatis Branch (procedure) [code = 355370299] Future Scheduled 2021-11-02 Depression screening Uni versity of Test 00:00:00 (procedure) [code = [facility] dical [id number]] Branch Future Scheduled 2021-11-02 MENINGOCOCCAL B Postponed [...] ity of Test 00:00:00 (procedure) [code = [facility] dical [id number]] Branch Future Scheduled 2021-11-02 Screening for University of Test 00:00:00 Chlamydia [place] [facility] trachomatis Branch (procedure) [code = [id number]] Future Scheduled 2021-11-02 Depression screening Uni versity of Test 00:00:00 (procedure) [code = [facility] dical [id number]] Branch Future Scheduled 2021-11-02 MENINGOCOCCAL B Postponed [...] ity of Test 00:00:00 (procedure) [code = [facility] dical [id number]] Branch Future Scheduled 2021-04-12 INFLUENZA VACCINE Univer sity of Test 00:00:00 (Season Ended) [code [place] [facility] = INFLUENZA VACCINE Branch (Season Ended)] Future Scheduled 2021-04-12 INFLUENZA VACCINE Univer sity of Test 00:00:00 (Season Ended) [code [place] [facility] = INFLUENZA VACCINE Branch (Season Ended)] Future Scheduled 2020-12-19 HPV VACCINES (3 - Postponed from Univ ersity of Test 00:00:00 3-dose series) [code 12/24/2019 [place] [facility] = HPV VACCINES (3 - ( or Branch 3-dose series)] ) Future Scheduled 2020-12-19 HPV VACCINES (3 - Postponed from Univ ersity of Test 00:00:00 3-dose series) [code 12/24/2019 [facility] edical = HPV VACCINES (3 - ( or Branch 3-dose series)] ) Future Scheduled 2020-12-17 Hepatitis C Postponed from Universit y of Test 00:00:00 screening 2019 [place] [facility] (procedure) [code = (Alternative Branch [id number]] Guidelines) Future Scheduled 2020-12-17 Hepatitis C Postponed from Universit y of Test 00:00:00 screening 2019 [facility] (procedure) [code = (Alternative Branch [id number]] Guidelines) Encounters Start End Encounter Admission Attending Care Care Encounter Source Date/Time Date/Time Type Type Clinicians Facility Department ID 2021-06-13 2021-06-13 Outpatient R MAURY [facility] [id number] Univers 10:30:00 10:58:17 CINDY oh [facility] 2021-06-13 2021-06-13 Office Maury [facility] [id number] Univers 10:01:19 10:58:17 Visit Cindy OPHTHALMIC MEDICAL ASSISTANT [id number] adriano [facility] [id number] Matt as MATERNAL [id number] Med ical & CHILD [address] [place] [address] 2020-12-30 2020-12-30 Office Chris [facility] [id number] 09:29:12 10:10:09 Visit Jacob Love OPHTHALMIC MEDICAL ASSISTANT [id number] REGIONAL [id number] MATERNAL [id number] & CHILD 107 [facility] 2019-11-03 2019-11-03 Outpatient Raju_P [facility] G [id number] [place] 05:13:00 05:13:00 [id number] [facility] Results Test Description Test Time Test Comments Results Result Comments Source POCT TEST 2021-06-13 15:22:00 Test Item Value Reference Range Interpretation Comme nts POCT PREG (test code = 1605) Negative On board controls acceptable with C Line (test code = 3574) Yes POCT PREG LOT # (test code = 3575) POCT PREG TEST DATE (test code = 3576[id number] 14:24:00 Test Item Value Reference Range Interpretation Comments POCT PREG (test code = 1605) Negative On board controls acceptable with C Yes Line (test code = 3574) POCT PREG LOT # (test code = 3575) POCT PREG TEST DATE (test code = 3576) [facility] [id number] 14:24:00 Test Item Value Reference Range Interpretation Comments POCT PREG (test code = 1605) Negative On board controls acceptable with C Yes Line (test code = 3574) POCT PREG LOT # (test code = 3575) POCT PREG TEST DATE (test code = 3576) [facility]
[2021-07-22] MEDS ORDERED: BUPIVACAINE 0.5% PF 10 ML VIAL ONE (23:15)
[2021-07-22] MEDS ORDERED: LIDOCAINE 1% W/EPI 1:100,000 MDV 20 ML VIAL ONE (23:15)
[2021-07-23] MEDS ORDERED: CLINDAMYCIN 600MG/D5W 600 MG/50 ML BAG IV ONE (00:18)
[2021-07-23] MEDS ORDERED: NA CHLORIDE 0.9% 500 ML ONE (00:18)
[2021-07-23] MEDS ORDERED: LORazepam 2 MG/ML VIAL ONE (00:18)
[2021-07-23 00:30] LABS: Absolute Lymphocytes (CBC) 2.1 K/uL (0.7-4.9); Basophils % 0.6 % (0-1.3); Hematocrit 43.9 % (36.0-45.0); Lymphocytes % 19.1 % (15.3-44.8); MPV 8.4 fL (7.6-11.3); RBC Red Blood Cell Count 4.81 M/uL (3.86-4.86)
[2021-07-23 00:41] LABS: Potassium 3.5 mmol/L (3.5-5.1)
--- NOTE | 2021-07-23 01:04 | EDPHYS ---
Physician Documentation [facility] Name: Maylin Zuniga Age: 21 yrs Sex: Female : 2000 Arrival Date: 07/22/2021 Time: 22:40 Bed 6 Private MD: ED Physician Thomas Lynne HPI: 07/22 23:10 This 21 yrs old Female presents to ER via Ambulatory with complaints of Cyst. cp 23:10 The patient presents with an abscess of the left upper arm axilla. cp 23:10 Description: fluctuant, swollen. cp 23:10 Onset: The symptoms/episode began/occurred 4 day(s) ago. cp 23:10 Possible cause(s): shaving area. Associated signs and symptoms: Pertinent positives: cp swelling, Pertinent negatives: discharge, drainage, fever. 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 - Social history:: Smoking status: Patient reports the use of cigarette tobacco products, Patient denies any tobacco usage or history of. ROS: 07/22 23:15 Skin: Positive for abscess, of the left upper arm axilla, Negative for rash. cp 23:15 Cardiovascular: Negative for chest pain, palpitations. cp 23:15 Constitutional: Negative for body aches, chills, fever. cp 23:15 Abdomen/GI: Negative for abdominal pain, vomiting, diarrhea, constipation. cp 23:15 : Negative for urinary symptoms. 23:15 Neuro: Negative for altered mental status. 23:15 All other systems are negative. Exam: 23:20 Constitutional: The patient appears in no acute distress, alert, awake, non-toxic, well cp developed, well nourished, anxious. 23:20 Head/Face: Normocephalic, atraumatic. cp 23:20 Eyes: Periorbital structures: appear normal, Conjunctiva: normal, no exudate, no injection, Sclera: no appreciated abnormality, Lids and lashes: appear normal, bilaterally. 23:20 ENT: External ear(s): are unremarkable, Nose: is normal, Mouth: Lips: moist, Posterior pharynx: Airway: no evidence of obstruction, patent. 23:20 Chest/axilla: Inspection: normal, Axilla: abscess, that is small, of the left axilla, with draining, with tenderness. 23:20 Cardiovascular: Rate: tachycardic, Rhythm: regular. 23:20 Respiratory: the patient does not display signs of respiratory distress, Respirations: normal, no use of accessory muscles, no retractions, labored breathing, is not present, Breath sounds: are clear throughout, no decreased breath sounds. 23:20 Abdomen/GI: Exam negative for discomfort, distension, guarding, Inspection: abdomen appears normal. 23:20 Neuro: Orientation: to person, place \T\ time. Mentation: is normal. Vital Signs: 22:49 BP 146 / 91; Pulse 103; Resp 16; Temp 98.7; Pulse Ox 100% on R/A; Weight 77.11 kg; da3 Height 5 ft. 5 in. (165.10 cm); 07/23 01:22 BP 137 / 87; Pulse 87; Resp 19; Pulse Ox 99% ; sm5 07/22 22:49 Body Mass Index 28.29 (77.11 kg, 165.10 cm) da3 Procedures: 01:00 I \T\ D: Incision and drainage was performed for an abscess of the left upper arm axilla cp Prepped with Betadine, Anesthetized with 10 ccs of 50/50 mixture 1% lidocaine with epi and 0.5% marcaine. Incised with #11 blade. Drained small amount purulent fluid. Packed with iodoform gauze, Dressing: sterile 4x4 gauze, the patient tolerated the procedure well. MDM: 07/22 23:02 Patient medically screened. cp 07/23 00:00 Differential diagnosis: abscess, cellulitis, insect bite. cp 01:02 Data reviewed: vital signs, nurses notes, lab test result(s). cp 01:02 Counseling: I had a detailed discussion with the patient and/or guardian regarding: the cp historical points, exam findings, and any diagnostic results supporting the discharge/admit diagnosis, lab results, the need for outpatient follow up, a family practitioner, to return to the emergency department if symptoms worsen or persist or if there are any questions or concerns that arise at home. Response to treatment: the patient's symptoms have markedly improved after treatment, and as a result, I will discharge patient. 07/22 23:29 Order name: CBC with Diff cp 07/22 23:29 Order name: BMP; Complete Time: 00:52 cp 07/23 00:52 Interpretation: Normal except: GFR 85. cp 07/22 23:31 Order name: CBC with Automated Diff; Complete Time: 00:52 EDMS 07/23 00:53 Interpretation: Normal except: WBC 11.10; EOSINOPHIL % 4.6. cp 07/22 23:09 Order name: I\T\D Setup; Complete Time: 23:22 cp 07/22 23:29 Order name: IV; Complete Time: 00:36 cp Administered Medications: 00:25 Drug: Ativan (LORazepam) 0.5 mg Route: IVP; Site: right antecubital; sm5 00:25 Drug: NS 0.9% 500 ml Route: IV; Rate: bolus; Site: right antecubital; sm5 00:25 Drug: Clindamycin 600 mg Route: IVPB; Infused Over: 30 mins; Site: right antecubital; sm5 00:35 Drug: Lidocaine-Epinephrine -1%: (1:100,000) 10 ml {Note: administered by kaitlin Manning PA.} Volume: 20 ml; Route: Infiltration; 00:35 Drug: Marcaine (bupivacaine) (0.5 %) 10 ml {Note: administered by PA. Nigel} sm5 Volume: 10 ml; Route: Infiltration; Disposition: 01:15 Chart complete. cp Disposition Summary: 07/23/21 01:03 Discharge Ordered Location: Home cp Problem: new cp Symptoms: have improved cp Condition: Stable cp Diagnosis - Cutaneous abscess of left axilla - left upper arm cp Followup: cp - With: Private Physician - When: 48 Hours - Reason: Wound Recheck Discharge Instructions: - Discharge Summary Sheet cp - Skin Abscess cp - Incision and Drainage cp Forms: - Medication Reconciliation Form cp - Thank You Letter cp - Antibiotic Education cp - Prescription Opioid Use cp - Work release form 5 Prescriptions: - Clindamycin HCl 300 mg Oral Capsule - take 1 capsule by ORAL route every 6 hours for 10 days; 40 capsule; Refills: 0, cp Product Selection Permitted - Bactrim DS 800-160 mg Oral Tablet - take 1 tablet by ORAL route every 12 hours for 10 days; 20 tablet; Refills: 0, cp Product Selection Permitted - Naprosyn 500 mg Oral Tablet - take 1 tablet by ORAL route 2 times per day take with food; 20 tablet; Refills: cp 0, Product Selection Permitted Addendum: 07/24/2021 11:06 Co-signature as Attending Physician, Thomas Lynne MD I agree with the assessment and c sherman plan of care. Signatures: Dispatcher [employer] EDThomas Rodriguez MD MD cha Page, Corey, PA PA cp Allan, David, RN RN da3 María Dean RN RN sm5
--- NOTE | 2021-07-23 01:04 | ER ---
Nurse's Notes [facility] Name: Maylin uZniga Age: 21 yrs Sex: Female : 2000 Arrival Date: 07/22/2021 Time: 22:40 Bed 6 Private MD: Diagnosis: Cutaneous abscess of left axilla-left upper arm Presentation: 07/22 22:49 Chief complaint: Patient states: Lump under left arm x 3-4 days. Coronavirus screen: da3 Vaccine status: Patient reports receiving the 2nd dose of the covid vaccine. Ebola Screen: No symptoms or risks identified at this time. Initial Sepsis Screen: Does the patient meet any 2 criteria? No. Patient's initial sepsis screen is negative. Does the patient have a suspected source of infection? No. Patient's initial sepsis screen is negative. Risk Assessment: Do you want to hurt yourself or someone else? Patient reports no desire to harm self or others. Onset of symptoms was July 18, 2021. 22:49 Method Of Arrival: Ambulatory da3 22:49 Acuity: VINNY 3 da3 Triage Assessment: 22:49 General: Appears in no apparent distress. comfortable, Behavior is calm, cooperative. da3 Pain: Complains of pain in left arm pit Pain currently is 10 out of 10 on a pain scale. 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 - Social history:: Smoking status: Patient reports the use of cigarette tobacco products, Patient denies any tobacco usage or history of. Screenin:10 Abuse screen: Denies threats or abuse. Denies injuries from another. Nutritional sm5 screening: No deficits noted. Tuberculosis screening: No symptoms or risk factors identified. Fall Risk None identified. Assessment: 01:21 General: Appears in no apparent distress. Behavior is cooperative. Pain: Complains of sm5 pain in armpit. Neuro: Level of Consciousness is awake, alert, Oriented to person, place, time, situation. Cardiovascular: No deficits noted. Respiratory: Reports. Respiratory: No deficits noted. GI: No deficits noted. : No deficits noted. Derm: Abscess located on L armpit. Vital Signs: 07/22 22:49 BP 146 / 91; Pulse 103; Resp 16; Temp 98.7; Pulse Ox 100% on R/A; Weight 77.11 kg; da3 Height 5 ft. 5 in. (165.10 cm); 07/23 01:22 BP 137 / 87; Pulse 87; Resp 19; Pulse Ox 99% ; 5 07/22 22:49 Body Mass Index 28.29 (77.11 kg, 165.10 cm) da3 ED Course: 07/22 22:40 Patient arrived in ED. ja2 22:49 Arm band placed on right wrist. da3 22:52 Triage completed. da3 22:56 María Dean, BILLIE is Primary Nurse. 5 22:59 Thomas Nieto PA is PHCP. cp 22:59 Thomas Lynne MD is Attending Physician. cp 07/23 00:10 Patient has correct armband on for positive identification. Placed in gown. Bed in low sm5 position. Call light in reach. 00:19 Initial lab(s) drawn, by me, sent to lab. Missed attempt(s): 22 gauge in left lp1 antecubital area. Inserted saline lock: 22 gauge in right antecubital area, using aseptic technique. Blood collected. 00:36 CBC with Diff Sent. 5 00:36 BMP Sent. 5 01:22 Assist provider with I \T\ D: of an abscess on left axilla Set up I\T\D tray. Performed by 5 Thomas ALCANTARA Wound packed. Dressing with 4X4s, tape Patient tolerated well. IV discontinued, intact, bleeding controlled, No redness/swelling at site. Pressure dressing applied. Administered Medications: 00:25 Drug: Ativan (LORazepam) 0.5 mg Route: IVP; Site: right antecubital; 5 00:25 Drug: NS 0.9% 500 ml Route: IV; Rate: bolus; Site: right antecubital; 5 00:25 Drug: Clindamycin 600 mg Route: IVPB; Infused Over: 30 mins; Site: right antecubital; 5 00:35 Drug: Lidocaine-Epinephrine -1%: (1:100,000) 10 ml {Note: administered by Thomas Page, sm5 PA.} Volume: 20 ml; Route: Infiltration; 00:35 Drug: Marcaine (bupivacaine) (0.5 %) 10 ml {Note: administered by PA. Nigel} kaitlin Volume: 10 ml; Route: Infiltration; Outcome: 01:03 Discharge ordered by . sofy 01:22 Discharged to home ambulatory, with friend. tana5 01:22 Condition: good 01:22 Discharge instructions given to patient, friend, Instructed on discharge instructions, follow up and referral plans. medication usage, Demonstrated understanding of instructions, follow-up care, medications, Prescriptions given X 3. 01:23 Patient left the ED. 5 Signatures: Deya Newton RN RN lp1 Thomas Nieto PA PA cp Allan, David, RN RN da3 Eliza House Sarah, RN RN sm5
[2021-07-23 01:31] VITALS: TEMP 98.7
[2021-07-23 01:33] VITALS: BP 137/87; O2SAT 99
== END 2021-07-23 01:23 | disposition home or self-care (01) ==
LOC: ER 22:35
PROC: 0H9CXZZ Drainage of Left Upper Arm Skin, External Approach (ICD-10-PCS; principal; 2021-07-23)
DX: L02.412 Cutaneous abscess of left axilla (principal); Z72.0 Tobacco use
CPT/HCPCS: 85025; 80048; 36415; 96375; 96374; 99284; 10060; J7040

== ENCOUNTER 2021-09-09 17:00 | Emergency (ER) | payer OTHER ==
--- OUTSIDE RECORDS SUMMARY | 2021-09-09 17:03 | XMS REPORT | Continuity of Care Document ---
:2000 Author Organization [facility] t Address [address] [place] [id number] Care Team Providers Name Role Phone Chris JENNINGS, R Primary Care Physician Chris JENNINGS, R Attending Clinician Doctor Unassigned, Name Attending Clinician Unavailable Emanuel GALLARDOP, C Attending Clinician Raju_P Attending Clinician Unavailable Raju_P Admitting Clinician Unavailable Payers Payer Name Policy Type Policy Number Effective Date Expiration Date S ource Problems Condition Condition Condition Status Onset Resolution Last Treating Co mments Source Name Details Category Date Date Treatment Clinician Date Feeling Feeling Disease Active Univers sad sad 5-21 ity of 00:: [address] Encounter Encounter Disease Active Uni vers for for 5-07 ity of surve[place] of Medical implantabl implantabl Br anch e e subdermal subdermal contracept contracept ely ely Absence of Absence of Disease Active U nivers menstruati menstruati 3-24 it y of on on 00:: [address] Breast Breast Disease Active Univers tenderness tenderness 3-24 it y of in female in female 00:00: Rudy lincoln [address] [place] [address] Class 1 Class 1 Disease Active Univers obesity obesity 3-24 [place] of with body [place] index 00 [place] dical (BMI) of (BMI) of Branch 33.0 to 33.0 to 33.9 in 33.9 in adult, adult, unspecifie unspecifie d obesity d obesity type, type, unspecifie unspecifie d whether d whether serious serious comorbidit comorbidit y present y present Obesity Obesity Disease Active Univers (BMI (BMI 3-24 ity of 30-39.9) 30-39.9) 00:00: [place] [address] Medical Branch Elevated Elevated Disease Active Unive rs blood blood 2-21 ity of pressure pressure 00:00: [place] reading reading 00 Medical without without Branch diagnosis diagnosis of of hypertensi hypertensi on on Other Other Disease Active Univers depression depression 08-20 it y of 00:00: [place] [facility] Nexplanon Nexplanon Disease Active Uni vers removal removal 08-20 ity of 00:00: [address] Branch Screening Screening Disease Active Uni vers examinatio examinatio 08-20 it y of n for STD n for STD 00:00: [place] s (sexually (sexually 00 [facility] danni transmitte transmitte Br anch d disease) d disease) BMI BMI Disease Active 2018-08 Univers 29.0-29.9, 29.0-29.9, 0-16 it y of adult adult 00:00: [place] [facility] Branch HPV HPV Disease Active 2018-08 Univers vaccine vaccine 0-16 ity of counseling [place] [facility] [place] Overweight Overweight Disease Active 2018-08 U nivers 0-16 ity of 00:: [address] Branch Lump or Lump or Disease Active Univers mass in mass in -13 ity of breast breast 00:00: [address] Branch Nexplanon Nexplanon Disease Resolve 2019-08-20 2019-08-20 Univers insertion insertion d 4-13 00:00:00 15:53:54 ity of 00:00: [address] Branch Allergies, Adverse Reactions, Alerts This patient has no known allergies or adverse reactions. Social History Social Habit Start Date Stop Date Quantity Comments Source Exposure to Not sure [facility] SARS-CoV-2 [place] [facility] (event) Branch Alcohol intake 2021-06-13 2021-06-13 Current University of 00:00:00 00:00:00 non-drinker of [facility] alcohol Branch (finding) Tobacco use and 2014-11-22 2014-11-22 Never used Universit y of exposure 00:00:00 00:00:00 [facility] Sex Assigned At [birth year] Universit y of 00:00:00 00:00:00 [facility] Smoking Status Start Date Stop Date Source Never smoker [facility] Medications Ordered Filled Start Stop Current Ordering Indication Dosage Frequency Signature Comments Components Source Medication Medication Date Date Medication? Clinician (SIG) Name Name No known 2020-08 No Univers medications 2-21 ity of 09:29: [address] No known 2020-08 No Univers medications 2-21 ity of 09:29: [address] No known 2020-08 No Univers medications 2-21 ity of 09:29: [address] etonogestre 2020- No Nexplanon 68mg Univers L 5- 05-07 insertion ity of (NEXPLANON) 15:45: 14:44 [place] implant 68 00 :00 [facility] etonogestre 2020- No [id number] 68mg 68 mg, Univers L 5- 05-07 Subdermal, ity of (NEXPLANON) 15:45: 14:44 ONCE NOW, [place] implant 68 00 :00 1 dose, Medica l mg Sat12/16/20 Branch at 1045, Routine
Use approved by: AUDIO VISUAL DIRECTOR etonogestre 2020- No Nexplanon 68mg Univers L 5-07 05-07 insertion ity of (NEXPLANON) 15:45: 14:44 [place] implant 68 00 :00 [facility] etonogestre 2020- No [id number] 68mg 68 mg, Univers L 5-07 05-07 Subdermal, ity of (NEXPLANON) 15:45: 14:44 ONCE NOW, [place] implant 68 00 :00 1 dose, Medica l mg Sat12/16/20 Branch at 1045, Routine
Use approved by: AUDIO VISUAL DIRECTOR Immunizations Ordered Immunization Filled Immunization Date Status Commen ts Source Name Name HPV9 2019-08-25 Completed [facility] 00:00:00 [facility] HPV9 2019-08-25 Completed University of 00:00:00 [facility] HPV9 2019-08-25 Completed University of 00:00:00 [facility] Branch HPV9 2019-08-25 Completed University of 00:00:00 [facility] Branch HPV9 2019-08-25 Completed University of 00:00:00 [facility] Branch HPV9 2019-05-27 Completed University of 00:00:00 [facility] Branch HPV9 2019-05-27 Completed University of 00:00:00 [facility] Branch HPV9 2019-05-27 Completed University of 00:00:00 [facility] Branch HPV9 2019-05-27 Completed University of 00:00:00 [facility] HPV9 2019-05-27 Completed University of 00:00:00 [facility] TDAP (ADACEL) 2014-06-24 Completed University of VACCINE 00:00:00 [facility] Meningococcal 2014-06-24 Completed University of Vaccine 00:00:00 [facility] TDAP (ADACEL) 2014-06-24 Completed University of VACCINE 00:00:00 [facility] Meningococcal 2014-06-24 Completed University of Vaccine 00:00:00 [facility] TDAP (ADACEL) 2014-06-24 Completed University of VACCINE 00:00:00 [facility] Meningococcal 2014-06-24 Completed University of Vaccine 00:00:00 [facility] TDAP (ADACEL) 2014-06-24 Completed University of VACCINE 00:00:00 [facility] Meningococcal 2014-06-24 Completed University of Vaccine 00:00:00 [facility] TDAP (ADACEL) 2014-06-24 Completed University of VACCINE 00:00:00 [facility] Meningococcal 2014-06-24 Completed University of Vaccine 00:00:00 [facility] TDAP (ADACEL) 2013-03-12 Completed University of VACCINE 00:00:00 [facility] TDAP (ADACEL) 2013-03-12 Completed University of VACCINE 00:00:00 [facility] TDAP (ADACEL) 2013-03-12 Completed University of VACCINE 00:00:00 [facility] TDAP (ADACEL) 2013-03-12 Completed University of VACCINE 00:00:00 [facility] TDAP (ADACEL) 2013-03-12 Completed University of VACCINE 00:00:00 [facility] Vital Signs Vital Name Observation Time Observation Value Comments Source Systolic blood 2021-08-01 14:32:00 108 mm[Hg] Univer sity of pressure [facility] Diastolic blood 2021-08-01 14:32:00 79 mm[Hg] Unive rsity of pressure [facility] Heart rate 2021-08-01 14:32:00 82 /min Universi ty of [facility] Body temperature 2021-08-01 14:32:00 36.67 [place] Univ ersity of [facility] Respiratory rate 2021-08-01 14:32:00 16 /min Univ ersity of [facility] Body height 2021-08-01 14:32:00 165.1 cm Universi ty of [facility] Body weight 2021-08-01 14:32:00 92.171 kg Universi ty of [facility] BMI 2021-08-01 14:32:00 33.81 kg/m2 Universi ty of [facility] Systolic blood 2020-12-16 14:02:00 133 mm[Hg] Univer sity of pressure [facility] Diastolic blood 2020-12-16 14:02:00 85 mm[Hg] Unive rsity of pressure [facility] Heart rate 2020-12-16 14:02:00 89 /min Universi ty of [facility] Body temperature 2020-12-16 14:02:00 36.56 [place] Univ ersity of [facility] Respiratory rate 2020-12-16 14:02:00 16 /min Univ ersity of [facility] Body height 2020-12-16 14:02:00 165.1 cm Universi ty of [facility] Body weight 2020-12-16 14:02:00 89.444 kg Universi ty of [facility] BMI 2020-12-16 14:02:00 32.81 kg/m2 Universi ty of [facility] Procedures Procedure Date / Time Performed Performing Clinician [facility] e DISCLOSURE AND 2021-08-01 06:01:00 Doctor Unassigned, No Univer sit of [place] CONSENT, MEDICAL AND Name Medical [facility] SURGICAL PROCEDURES POCT TEST 2020-12-16 14:24:00 [facility] of [facility] Planned Activity Planned Date Details Comments Source Future Scheduled 2024-06-24 DTaP,Tdap,and Td Univers ity of Test 00:00:00 Vaccines (3 - Td) [facility] danni [code = Branch DTaP,Tdap,and Td Vaccines (3 - Td)] Future Scheduled 2024-06-24 DTaP,Tdap,and Td Univers ity of Test 00:00:00 Vaccines (3 - Td) [facility] [code = Branch DTaP,Tdap,and Td Vaccines (3 [...] Screening for University of Test 00:00:00 Chlamydia [place] [facility] trachomatis Branch (procedure) [code = 757576985] Future Scheduled 2021-11-02 Depression screening Uni versity of Test 00:00:00 (procedure) [code = [place] Me dical [id number]] Branch Future Scheduled 2021-11-02 MENINGOCOCCAL B Postponed [...] ity of Test 00:00:00 (procedure) [code = [place] [facility] [id number]] Branch Future Scheduled 2021-11-02 Screening for University of Test 00:00:00 Chlamydia [place] [facility] trachomatis Branch (procedure) [code = [id number]] Future Scheduled 2021-11-02 Depression screening Uni versity of Test 00:00:00 (procedure) [code = [facility] dical [id number]] Branch Future Scheduled 2021-11-02 MENINGOCOCCAL B Postponed [...] ity of Test 00:00:00 (procedure) [code = [facility] dical [id number]] Branch Future Scheduled 2021-04-12 INFLUENZA VACCINE Univer sity of Test 00:00:00 (Season Ended) [code [place] [facility] = INFLUENZA VACCINE Branch (Season Ended)] Future Scheduled 2021-04-12 INFLUENZA VACCINE Univer sity of Test 00:00:00 (Season Ended) [code [place] M edical = INFLUENZA VACCINE Branch (Season [...] Universit y of Test 00:00:00 screening 2019 [place] [facility] (procedure) [code = (Alternative Branch [id number]] Guidelines) Future Scheduled 2020-12-17 Hepatitis C Postponed from Universit y of Test 00:00:00 screening 2019 [place] [facility] (procedure) [code = (Alternative Branch [id number]] Guidelines) Encounters Start End Encounter Admission Attending Care Care Encounter Source Date/Time Date/Time Type Type Clinicians Facility Department ID 2021-08-01 2021-08-01 Office OMAYRA Perez [id number] Univers 08:30:00 09:21:32 Visit Jacob Love AUDIO VISUAL DIRECTOR [id number] ity of [facility] [id number] Matt as MATERNAL [id number] Med ical & CHILD 107 [facility] 2021-08-01 2021-08-01 Orders Doctor HADLEY [id number] Univers 00:00:00 00:00:00 Only Unassigned, LEIGHA [id number] ity of [place] [facility] [id number] Matt as [id number] [address] 2020-12-30 2020-12-30 Office OMAYRA Perez [id number] 09:29:12 10:10:09 Visit Jacob Love AUDIO VISUAL DIRECTOR [id number] [facility] [id number] MATERNAL [id number] & CHILD 107 [facility] 2019-11-03 2019-11-03 Outpatient Raju_P [facility] [id number] [place] 05:13:00 05:13:00 [id number] da Medical [...] PREG TEST DATE (test code = 3576) [id number] 14:24:00 Test Item Value Reference Range Interpretation Comments POCT PREG (test code = 1605) Negative On board controls acceptable with C Yes Line (test code = 3574) POCT PREG LOT # (test code = 3575) POCT PREG TEST DATE (test code = 3576) [facility]
--- NOTE | 2021-09-09 17:50 | ER ---
Nurse's Notes [facility] Name: Maylin Zuniga Age: 21 yrs Sex: Female : 2000 Arrival Date: 09/09/2021 Time: 17:03 Bed Waiting Private MD: Diagnosis: Tinea corporis Presentation: 09/09 17:35 Chief complaint: Patient states: rash on Right arm and MARU legs that began about two vg1 days ago, states itchiness. Coronavirus screen: Vaccine status: Patient reports receiving the 2nd dose of the covid vaccine. Client denies travel out of the [place] in the last 14 days. Ebola Screen: Patient negative for fever greater than or equal to 101.5 degrees Fahrenheit, and additional compatible Ebola Virus Disease symptoms. Initial Sepsis Screen: Does the patient meet any 2 criteria? No. Patient's initial sepsis screen is negative. Does the patient have a suspected source of infection? No. Patient's initial sepsis screen is negative. Risk Assessment: Do you want to hurt yourself or someone else? Patient reports no desire to harm self or others. Onset of symptoms was September 07, 2021. 17:35 Method Of Arrival: Ambulatory vg1 17:35 Acuity: VINNY 4 vg1 Triage Assessment: 17:42 General: Appears comfortable, Behavior is calm, cooperative. Pain: Denies pain. Derm: vg1 Rash noted that is itchy, on Right upper arm, left lower leg and Right thigh. 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 - Social history:: Smoking status: Patient denies any tobacco usage or history of. Screenin:52 Abuse screen: Denies threats or abuse. Nutritional screening: No deficits noted. vg1 Tuberculosis screening: No symptoms or risk factors identified. Fall Risk None identified. Vital Signs: 17:35 BP 138 / 88; Pulse 98; Resp 16; Temp 98.8; Pulse Ox 100% ; Weight 81.65 kg; Height 5 vg1 ft. 5 in. (165.10 cm); Pain 0/10; 17:35 Body Mass Index 29.95 (81.65 kg, 165.10 cm) vg1 ED Course: 17:03 Patient arrived in ED. rg4 17:34 [facility] Martinez [facility] ivelisse 17:34 Thomas Lynne MD is Attending Physician. [facility] 17:42 Triage completed. vg1 17:42 Arm band placed on. vg1 17:52 Patient has correct armband on for positive identification. vg1 17:52 No provider procedures requiring assistance completed. Patient did not have IV access vg1 during this emergency room visit. Administered Medications: No medications were administered Outcome: 17:49 Discharge ordered by . [facility] 17:52 Discharged to home ambulatory. vg1 17:52 Condition: good 17:52 Discharge instructions given to patient, Instructed on discharge instructions, follow up and referral plans. medication usage, Demonstrated understanding of instructions, follow-up care, medications, Prescriptions given X 1. 17:53 Patient left the ED. vg1 Signatures: Jayy Martinez PA PA Maru Perrin rg4 Rox Mendiola, RN RN vg1 Corrections: (The following items were deleted from the chart) 17:44 17:35 Pulse 98bpm; Resp 16bpm; Pulse Ox 100%; Temp 98.8F; 81.65 kg; Height 5 ft. 5 in.; vg1 BMI: 29.9; Pain 0/10; vg1 17:44 17:42 LMP N/A - control method vg1 vg1
--- NOTE | 2021-09-09 17:50 | EDPHYS ---
Physician Documentation [facility] Name: Maylin Zuniga Age: 21 yrs Sex: Female : 2000 Arrival Date: 09/09/2021 Time: 17:03 Bed Waiting Private MD: ABUNDIO Physician Thomas Lynne HPI: 09/09 17:37 This 21 yrs old Female presents to ER via Ambulatory with complaints of Rash. jmm 17:37 The patient's rash thought to be caused by an unknown cause. Onset: The jmm symptoms/episode began/occurred gradually. Associated signs and symptoms: Pertinent positives: itching, Pertinent negatives: fever, swelling of lips, swelling of throat, swelling of tongue, vomiting. The patient has not experienced similar symptoms in the past. 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 - Social history:: Smoking status: Patient denies any tobacco usage or history of. ROS: 17:37 Constitutional: Negative for fever, chills, and weight loss, Eyes: Negative for injury, jmm pain, redness, and discharge, ENT: Negative for injury, pain, and discharge, Neck: Negative for injury, pain, and swelling, Cardiovascular: Negative for chest pain, palpitations, and edema, Respiratory: Negative for shortness of breath, cough, wheezing, and pleuritic chest pain, Abdomen/GI: Negative for abdominal pain, nausea, vomiting, diarrhea, and constipation, Back: Negative for injury and pain, : Negative for injury, bleeding, discharge, and swelling. 17:37 Skin: Positive for rash. 17:37 All other systems are negative. Exam: 17:37 Constitutional: This is a well developed, well nourished patient who is awake, alert, jmm and in no acute distress. Head/Face: atraumatic. Eyes: EOMI, no conjunctival erythema appreciated ENT: Moist Mucus Membranes Neck: Trachea midline, Supple Chest/axilla: Normal chest wall appearance and motion. Cardiovascular: Regular rate and rhythm. No edema appreciated Respiratory: Normal respirations, no respiratory distress appreciated Abdomen/GI: Non distended, soft Back: Normal ROM 17:37 MS/ Extremity: Moves all extremities, no obvious deformities appreciated, no edema noted to the lower extremities Neuro: Awake and alert Psych: Behavior is normal, Mood is normal, Patient is cooperative and pleasant 17:37 Skin: ringworm, on the right arm, right leg and left leg. Vital Signs: 17:35 BP 138 / 88; Pulse 98; Resp 16; Temp 98.8; Pulse Ox 100% ; Weight 81.65 kg; Height 5 vg1 ft. 5 in. (165.10 cm); Pain 0/10; 17:35 Body Mass Index 29.95 (81.65 kg, 165.10 cm) vg1 MDM: 17:37 Patient medically screened. [facility] 17:47 Data reviewed: vital signs, nurses notes. Counseling: I had a detailed discussion with ivelisse the patient and/or guardian regarding: the historical points, exam findings, and any diagnostic results supporting the discharge/admit diagnosis, the need for outpatient follow up, to return to the emergency department if symptoms worsen or persist or if there are any questions or concerns that arise at home. ED course: Patient is alert and non toxic in appearance in the ED. No signs of resp distress. PE consistent with tinea. . 09/09 17:50 Order name: Glucose, Ancillary Testing EDMS 09/09 17:41 Order name: Fingerstick Glucose; Complete Time: 17:44 [facility] Administered Medications: No medications were administered Disposition: 09/10 13:20 Co-signature as Attending Physician, Thomas Lynne MD I agree with the assessment and annmarie plan of care. Disposition Summary: 09/09/21 17:49 Discharge Ordered Location: Home [facility] Condition: Stable [facility] Diagnosis - Tinea corporis [facility] Followup: [facility] - With: Private Physician - When: 2 - 3 days - Reason: Recheck today's complaints, Continuance of care, Re-evaluation by your physician Discharge Instructions: - Discharge Summary Sheet [facility] - Body Ringworm [facility] Forms: - Medication Reconciliation Form [facility] - Thank You Letter [facility] - Antibiotic Education [facility] - Prescription Opioid Use [facility] Prescriptions: - Clotrimazole 1 % Topical Cream - Apply to affected area 1 application by TOPICAL route every 12 hours; 15 gram; ivelisse Refills: 0, Product Selection Permitted Signatures: Dispatcher [employer] Thomas Rushing MD MD cha Mickail, Joel, PA PA jmm Garcia, Victoria, RN RN vg1
[2021-09-09 18:03] VITALS: BP 138/88; TEMP 98.8; O2SAT 100
== END 2021-09-09 17:53 | disposition home or self-care (01) ==
LOC: ER 17:00
DX: B35.4 Tinea corporis (principal)
CPT/HCPCS: 82947; 99282

== ENCOUNTER 2021-09-25 00:19 | Emergency (ER) | payer OTHER ==
--- OUTSIDE RECORDS SUMMARY | 2021-09-25 00:23 | XMS REPORT | Continuity of Care Document ---
:2000 Author Organization [facility] t Address [facility] [facility] [address] [place] [address] Care Team Providers Name Role Phone Chris JENNINGS R Primary Care Physician Chris JENNINGS, R Attending Clinician Doctor Unassigned, Name Attending Clinician Unavailable Emanuel NAGEL C Attending Clinician Raju_P Attending Clinician Unavailable Raju_P Admitting Clinician Unavailable Payers Payer Name Policy Type Policy Number Effective Date Expiration Date S ource Problems Condition Condition Condition Status Onset Resolution Last Treating Co mments Source Name Details Category Date Date Treatment Clinician Date Feeling Feeling Disease Active Univers sad sad 5-21 ity of 00:: [address] Encounter Encounter Disease Active Uni vers for for 5-07 ity of surveill[place] of Medical implantabl implantabl Br anch e e subdermal subdermal contracept contracept ely ely Absence of Absence of Disease Active U nivers menstruati menstruati 3-24 it y of on on 00:00: [address] Breast Breast Disease Active Univers tenderness tenderness 3-24 it y of in female in female 00:00: Rudy lincoln [address] [place] [address] Class 1 Class 1 Disease Active Univers obesity obesity 3-24 ity of with body with body 00:00: Rudy l[place] mass index mass index 00 Me dical (BMI) of (BMI) of Branch 33.0 to 33.0 to 33.9 in 33.9 in adult, adult, unspecifie unspecifie d obesity d obesity type, type, unspecifie unspecifie d whether d whether serious serious comorbidit comorbidit y present y present Obesity Obesity Disease Active Univers (BMI (BMI 3-24 ity of 30-39.9) 30-39.9) 00:00: [place] [address] Medical Branch Elevated Elevated Disease Active Unive rs blood blood 2-21 ity of pressure pressure 00:00: [place] reading reading 00 Medical without without Branch diagnosis diagnosis of of hypertensi hypertensi on on Other Other Disease Active Univers depression depression 08-20 it y of 00:00: [address] Branch Nexplanon Nexplanon Disease Active Uni vers removal removal 08-20 ity of 00:00: [address] Screening Screening Disease Active Uni vers examinatio examinatio 08-20 it y of n for STD n for STD 00:00: Rudy s (sexually (sexually [facility] transmitte transmitte Br anch d disease) d disease) BMI BMI Disease Active 2018-08 Univers 29.0-29.9, 29.0-29.9, 0-16 it y of adult adult 00:00: [place] [facility] Branch HPV HPV Disease Active 2018-08 Univers vaccine vaccine 0-16 [place] of counseling [place] [facility] Overweight Overweight Disease Active 2018-08 U nivers 0-16 ity of 00:00: [address] Lump or Lump or Disease Active Univers mass in mass in 4-13 ity of breast breast 00:00: [address] Nexplanon Nexplanon Disease Resolve 2019-08-20 2019-08-20 Univers insertion insertion d 4-13 00:00:00 15:53:54 ity of 00:00: [address] Allergies, Adverse Reactions, Alerts This patient has no known allergies or adverse reactions. Social History Social Habit Start Date Stop Date Quantity Comments Source Exposure to Not sure [facility]-CoV-2 [place] [facility] (event) Branch Alcohol intake 2021-06-13 2021-06-13 Current University of 00:00:00 00:00:00 non-drinker of [facility] alcohol Branch (finding) Tobacco use and 2014-11-22 2014-11-22 Never used Universit y of exposure 00:00:00 00:00:00 [facility] Sex Assigned At [birth year] Universit y of 00:00:00 00:00:00 [facility] Smoking Status Start Date Stop Date Source Never smoker [facility] Medications Ordered Filled Start Stop Current Ordering Indication Dosage Frequency Signature Comments Components Source Medication Medication Date Date Medication? Clinician (SIG) Name Name No known 2020-08 No Univers medications 2-21 ity of 09:29: [address] No known 2020-08 No Univers medications 2-21 ity of 09:29: [address] No known 2020-08 No Univers medications 2-21 ity of 09:29: [address] etonogestre 2020- No Nexplanon 68mg Univers L 5- 05-07 insertion ity of (NEXPLANON) 15:45: 14:44 [place] implant 68 00 :00 [facility] etonogestre 2020- No [id number] 68mg 68 mg, Univers L 5-07 05-07 Subdermal, ity of (NEXPLANON) 15:45: 14:44 ONCE NOW, [place] implant 68 00 :00 1 dose, Medica l mg Sat12/16/20 Branch at 1045, Routine
Use approved by: [employer] etonogestre 2020- No Nexplanon 68mg Univers L 5-07 05-07 insertion ity of (NEXPLANON) 15:45: 14:44 [place] implant 68 00 :00 [facility] etonogestre 2020- No [id number] 68mg 68 mg, Univers L 5-07 05-07 Subdermal, ity of (NEXPLANON) 15:45: 14:44 ONCE NOW, [place] implant 68 00 :00 1 dose, Medica l mg Sat12/16/20 Branch at 1045, Routine
Use approved by: [employer] Immunizations Ordered Immunization Filled Immunization Date Status Commen ts Source Name Name HPV9 2019-08-25 Completed [facility] 00:00:00 [facility] HPV9 2019-08-25 Completed [facility] 00:00:00 [facility] 2019-08-25 Completed University of 00:00:00 [facility] HPV9 2019-08-25 Completed University of 00:00:00 [facility] Branch HPV9 2019-08-25 Completed University of 00:00:00 [facility] HPV9 2019-05-27 Completed University of 00:00:00 [facility] HPV9 2019-05-27 Completed University of 00:00:00 [facility] HPV9 2019-05-27 Completed University of 00:00:00 [facility] HPV9 2019-05-27 Completed University of 00:00:00 [facility] HPV9 2019-05-27 Completed University of 00:00:00 [facility] TDAP (ADACEL) 2014-06-24 Completed University of VACCINE 00:00:00 [facility] Meningococcal 2014-06-24 Completed University of Vaccine 00:00:00 [facility] TDAP (ADACEL) 2014-06-24 Completed University of VACCINE 00:00:00 [facility] Meningococcal 2014-06-24 Completed University of Vaccine 00:00:00 [facility] TDAP (ADACEL) 2014-06-24 Completed University of VACCINE 00:00:00 [facility] Meningococcal 2014-06-24 Completed University of Vaccine 00:00:00 [facility] TDAP (ADACEL) 2014-06-24 Completed University of VACCINE 00:00:00 [facility] Meningococcal 2014-06-24 Completed University of Vaccine 00:00:00 [facility] TDAP (ADACEL) 2014-06-24 Completed University of VACCINE 00:00:00 [facility] Meningococcal 2014-06-24 Completed University of Vaccine 00:00:00 [facility] TDAP (ADACEL) 2013-03-12 Completed University of VACCINE 00:00:00 [facility] TDAP (ADACEL) 2013-03-12 Completed University of VACCINE 00:00:00 [facility] TDAP (ADACEL) 2013-03-12 Completed University of VACCINE 00:00:00 [facility] TDAP (ADACEL) 2013-03-12 Completed University of VACCINE 00:00:00 [facility] TDAP (ADACEL) 2013-03-12 Completed University of VACCINE 00:00:00 [facility] Vital Signs Vital Name Observation Time Observation Value Comments Source Systolic blood 2021-08-01 14:32:00 108 mm[Hg] Univer sity of pressure [facility] Diastolic blood 2021-08-01 14:32:00 79 mm[Hg] Unive rsity of pressure [facility] Heart rate 2021-08-01 14:32:00 82 /min Universi ty of [facility] Body temperature 2021-08-01 14:32:00 36.67 [place] Univ ersity of [facility] Respiratory rate 2021-08-01 14:32:00 16 /min Univ ersity of [facility] Body height 2021-08-01 14:32:00 165.1 cm Universi ty of [facility] Body weight 2021-08-01 14:32:00 92.171 kg Universi ty of [facility] BMI 2021-08-01 14:32:00 33.81 kg/m2 Universi ty of [facility] Systolic blood 2020-12-16 14:02:00 133 mm[Hg] Univer sity of pressure [facility] Diastolic blood 2020-12-16 14:02:00 85 mm[Hg] Unive rsity of pressure [facility] Heart rate 2020-12-16 14:02:00 89 /min Universi ty of [facility] Body temperature 2020-12-16 14:02:00 36.56 [place] Univ ersity of [facility] Respiratory rate 2020-12-16 14:02:00 16 /min Univ ersity of [facility] Body height 2020-12-16 14:02:00 165.1 cm Universi ty of [facility] Body weight 2020-12-16 14:02:00 89.444 kg Universi ty of [facility] BMI 2020-12-16 14:02:00 32.81 kg/m2 Universi ty of [facility] Procedures Procedure Date / Time Performed Performing Clinician [facility] e DISCLOSURE AND 2021-08-01 06:01:00 Doctor Unassigned, [facility] AND Name Medical [facility] SURGICAL PROCEDURES POCT TEST 2020-12-16 14:24:00 Floridalma Castellanos [facility] Plan of Care Planned Activity Planned Date Details Comments Source Future Scheduled 2024-06-24 DTaP,Tdap,and Td Univers ity of Test 00:00:00 Vaccines (3 - Td) [place] [facility]anni [code = Branch DTaP,Tdap,and Td Vaccines (3 - Td)] Future Scheduled 2024-06-24 DTaP,Tdap,and Td Univers ity of Test 00:00:00 Vaccines (3 - Td) [place] [facility] danni [code = Branch DTaP,Tdap,and Td Vaccines [...] Screening for University of Test 00:00:00 Chlamydia [place] [facility] trachomatis Branch (procedure) [code = 916941388] Future Scheduled 2021-11-02 Depression screening Uni versity of Test 00:00:00 (procedure) [code = [place] Me dical [id number]] Branch Future Scheduled 2021-11-02 MENINGOCOCCAL B Postponed [...] 00:00:00 (procedure) [code = [place] Me dical [id number]] Branch Future Scheduled 2021-11-02 Screening for University of Test 00:00:00 Chlamydia [place] [facility] trachomatis Branch (procedure) [code = 965499729] Future Scheduled 2021-11-02 Depression screening Uni versity of Test 00:00:00 (procedure) [code = [facility] dical [id number]] Branch Future Scheduled 2021-11-02 MENINGOCOCCAL B Postponed [...] ity of Test 00:00:00 (procedure) [code = [facility] dical [id number]] Branch Future Scheduled 2021-04-12 INFLUENZA VACCINE Univer sity of Test 00:00:00 (Season Ended) [code [place] M edical = INFLUENZA VACCINE Branch (Season Ended)] Future Scheduled 2021-04-12 INFLUENZA VACCINE Univer sity of Test 00:00:00 (Season Ended) [code [place] M edical = INFLUENZA VACCINE Branch (Season Ended)] Future Scheduled 2020-12-19 HPV VACCINES (3 - Postponed from Univ ersity of Test 00:00:00 3-dose series) [code 12/24/2019 [place] M edical = HPV VACCINES (3 - ( or Branch 3-dose series)] ) Future Scheduled 2020-12-19 HPV VACCINES (3 - Postponed from Univ ersity of Test 00:00:00 3-dose series) [code 12/24/2019 [place] M edical = HPV VACCINES (3 - ( or Branch 3-dose series)] ) Future Scheduled 2020-12-17 Hepatitis C Postponed from Universit y of Test 00:00:00 screening 2019 [place] [facility] (procedure) [code = (Alternative Branch [id number]] Guidelines) Future Scheduled 2020-12-17 Hepatitis C Postponed from Universit y of Test 00:00:00 screening 2019 [place] [facility] (procedure) [code = (Alternative Branch [id number]] Guidelines) Encounters Start End Encounter Admission Attending Care Care Encounter Source Date/Time Date/Time Type Type Clinicians Facility Department ID 2021-08-01 2021-08-01 Office OMAYRA Perez [id number] Univers 08:30:00 09:21:32 Visit Jacob Love [employer] [id number] ity of [facility] [id number] Matt as MATERNAL [id number] Med ical & CHILD 107 [facility] 2021-08-01 2021-08-01 Orders Doctor HADLEY [id number] Univers 00:00:00 00:00:00 Only Unassigned, LEIGHA [id number] ity of [place] [facility] [id number] Matt as [id number] [address] 2020-12-30 2020-12-30 Office OMAYRA Perez [id number] 09:29:12 10:10:09 Visit Jacob Love [employer] [id number] [facility] [id number] MATERNAL [id number] & CHILD 107 [facility] 2019-11-03 2019-11-03 Outpatient Raju_P MMG G [id number] [place] 05:13:00 05:13:00 [id number] da Medical [...] PREG TEST DATE (test code = 3576) [id number] 14:24:00 Test Item Value Reference Range Interpretation Comments POCT PREG (test code = 1605) Negative On board controls acceptable with C Yes Line (test code = 3574) POCT PREG LOT # (test code = 3575) POCT PREG TEST DATE (test code = 3576) [facility]
[2021-09-25] MEDS ORDERED: NA CHLORIDE 0.9% 1,000 ML ONE (00:56)
[2021-09-25 01:12] LABS: Absolute Lymphocytes (CBC) 3.7 K/uL (0.7-4.9); Hematocrit 43.8 % (36.0-45.0); Lymphocytes % 32.7 % (15.3-44.8); MPV 8.6 fL (7.6-11.3); RBC Red Blood Cell Count 4.79 M/uL (3.86-4.86)
[2021-09-25 01:52] LABS: BUN Blood Urea Nitrogen 9 mg/dL (7-18); Bicarbonate 28 mmol/L (21-32); Glucose Level 110 mg/dL (74-106); HCG, Quantitative < 1 mIU/mL (1-3); Potassium 3.4 mmol/L (3.5-5.1); Sodium Level 139 mmol/L (136-145)
[2021-09-25 01:58] LABS: Urine Blood Negative (Negative); Urine Glucose Negative (Negative); Urine Protein Negative (Negative); Urine Specific Gravity <=1.005 (1.005-1.030); Urine pH 5.5 (5.0-7.0)
[2021-09-25 02:02] LABS: Urine Specific Gravity/Preg 1.005 (1.005-1.030)
--- NOTE | 2021-09-25 02:02 | ER ---
Nurse's Notes [facility] Name: Maylin Zuniga Age: 21 yrs Sex: Female : 2000 Arrival Date: 09/25/2021 Time: 00:24 Bed 4 Private MD: Diagnosis: Abnormal uterine and vaginal bleeding, unspecified Presentation: 09/25 00:44 Chief complaint: Patient states: she is about 8 weeks and is cramping and bb noticed some dark blood when she wipes after urinating. Coronavirus screen: At this time, the client does not indicate any symptoms associated with coronavirus-19. Ebola Screen: No symptoms or risks identified at this time. Initial Sepsis Screen: Does the patient meet any 2 criteria? No. Patient's initial sepsis screen is negative. Does the patient have a suspected source of infection? No. Patient's initial sepsis screen is negative. Risk Assessment: Do you want to hurt yourself or someone else? Patient reports no desire to harm self or others. Onset of symptoms was September 25, 2021. 00:44 Method Of Arrival: Ambulatory bb 00:44 Acuity: VINNY 3 bb Triage Assessment: 01:02 General: Appears in no apparent distress. comfortable, obese, well groomed, Behavior is st1 calm, cooperative. Pain: Complains of pain in pelvis Pain currently is 6 out of 10 on a pain scale. Quality of pain is described as crampy. 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 - Social history:: Smoking status: Patient denies any tobacco usage or history of. Patient/guardian denies using alcohol, street drugs. Screenin:02 Abuse screen: Denies threats or abuse. Nutritional screening: No deficits noted. st1 Tuberculosis screening: No symptoms or risk factors identified. Fall Risk None identified. No fall in past 12 months (0 pts). No secondary diagnosis (0 pts). IV access (20 points). Ambulatory Aid- None/Bed Rest/Nurse Assist (0 pts). Gait- Normal/Bed Rest/Wheelchair (0 pts) Mental Status- Oriented to own ability (0 pts). Total Perdomo Fall Scale indicates No Risk (0-24 pts). Assessment: 01:00 Reassessment: patient aware of the need for urine. pt states "im going to be honest al4 with you, I dont think I can go right now." will try again after bolus is finished. 01:29 Reassessment: The patient stated " I started bleeding on Saturday, and didn't think it st1 was a big deal, had sex on Saturday night and my boyfriend told me I was bleeding". 02:03 General: Appears in no apparent distress. comfortable, Behavior is calm, cooperative, al4 Reports "I am bleeding when I wipe." patient denies large amount of blood and denies blood in underwear. Pain: Pain currently is 6 out of 10 on a pain scale. Neuro: Level of Consciousness is awake, alert, obeys commands, Oriented to person, place, time, situation. Cardiovascular: Capillary refill < 3 seconds Patient's skin is warm and dry. Respiratory: Airway is patent Respiratory effort is even, unlabored. GI: No signs and/or symptoms were reported involving the gastrointestinal system. : Reports cramping, vaginal bleeding that is. EENT: No signs and/or symptoms were reported regarding the EENT system. Derm: No signs and/or symptoms reported regarding the dermatologic system. Musculoskeletal: Range of motion: intact in all extremities. Vital Signs: 00:44 BP 150 / 76; Pulse 113; Resp 16 S; Temp 97.9(O); Pulse Ox 100% on R/A; Weight 99.79 kg bb (R); Height 5 ft. 5 in. (165.10 cm) (R); Pain 6/10; 02:00 BP 126 / 82; Pulse 97; Resp 18 S; Pulse Ox 100% on R/A; al4 02:30 BP 129 / 71; Pulse 97; Resp 18 S; Pulse Ox 97% on R/A; al4 00:44 Body Mass Index 36.61 (99.79 kg, 165.10 cm) ED Course: 00:24 Patient arrived in ED. 00:27 Noé Sandoval, RYLEE is PHCP. pm1 00:27 Byron Scuhltz MD is Attending Physician. pm1 00:38 Lauren Granda, BILLIE is Primary Nurse. st1 00:46 Triage completed. bb 00:46 Arm band placed on Patient placed in an exam room, on a stretcher, on pulse oximetry. bb 01:01 Patient has correct armband on for positive identification. Placed in gown. Bed in low st1 position. Call light in reach. Side rails up X2. Pulse ox on. NIBP on. 01:01 Inserted saline lock: 20 gauge in left antecubital area, using aseptic technique. st1 01:02 Abo/rh Typing Sent. st1 01:02 Basic Metabolic Panel Sent. st1 01: CBC with Diff Sent. st1 01: Quantitative Hcg Sent. st1 01:30 US Transvaginal Ob In Process Unspecified. EDMS 02:05 No provider procedures requiring assistance completed. al4 02:12 Urine --Ancillary (enter results) Sent. al4 03:02 IV discontinued, intact, bleeding controlled, No redness/swelling at site. Pressure al4 dressing applied. Administered Medications: 01:00 Drug: NS 0.9% 1000 ml Route: IV; Rate: 1000 ml; Site: right antecubital; al4 03:03 Follow up: IV Status: Completed infusion; IV Intake: 900ml al4 Point of Care Testing: Urine : 03:02 hCG Reading: Negative; Control Reading: Negative; al4 Intake: 03:03 IV: 900ml; Total: 900ml. al4 Outcome: 02:02 Discharge ordered by . pm1 03:02 Discharged to home ambulatory. al4 03:02 Condition: stable 03:02 Discharge instructions given to patient, Instructed on discharge instructions, follow up and referral plans. Demonstrated understanding of instructions, follow-up care. 03:02 Patient left the ED. al4 Signatures: Dispatcher [employer] EDCarla Patel RN RN bb Noé Sandoval, RYLEE REAL PROPERTY APPRAISER pm1 Bleén Fontanez Juan Luis Bella al4 Lauren Granda RN RN st1 Corrections: (The following items were deleted from the chart) 00:47 00:46 PMHx: NOSE BLEEDS; bb bb 00:47 00:46 PMHx: seasonal allergies; bb bb :18 02:05 Condition: stable al4 al4 : 02:05 Discharged to home ambulatory, al4 al4 : 02:05 Discharge instructions given to patient, Instructed on discharge instructions, al4 follow up and referral plans. Demonstrated understanding of instructions, follow-up care, al4
--- NOTE | 2021-09-25 02:02 | EDPHYS ---
Physician Documentation [facility] Name: Maylin Zuniga Age: 21 yrs Sex: Female : 2000 Arrival Date: 09/25/2021 Time: 00:24 Bed 4 Private MD: ED Physician Byron Schultz HPI: 09/25 00:44 This 21 yrs old Female presents to ER via Unassigned with complaints of pm1 Vaginal Bleeding, + Preg <12wks, Abdominal Pain. 00:44 The patient presents to the emergency department with vaginal bleeding, that is light, pm1 with wiping when going to the restroom. The estimated gestational age is 8 weeks. course: care: at a clinic, [facility] clinic, Leakage of Fluid: none appreciated, Ultrasound: the patient has not had an ultrasound. Previous pregnancies: the patient has never been . Associated signs and symptoms: Pertinent negatives: abdominal pain, dysuria, fever, nausea, vomiting. The patient has not experienced similar symptoms in the past. 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 - Social history:: Smoking status: Patient denies any tobacco usage or history of. Patient/guardian denies using alcohol, street drugs. ROS: 00:44 Constitutional: Negative for fever, chills, and weight loss, Cardiovascular: Negative pm1 for chest pain, palpitations, and edema, Respiratory: Negative for shortness of breath, cough, wheezing, and pleuritic chest pain, Abdomen/GI: Negative for abdominal pain, nausea, vomiting, diarrhea, and constipation. 00:44 MS/Extremity: Negative for injury and deformity, Skin: Negative for injury, rash, and discoloration, Neuro: Negative for headache, weakness, numbness, tingling, and seizure. 00:44 : Positive for vaginal bleeding, Negative for urinary symptoms, burning with urination. 00:44 All other systems are negative. Exam: 00:44 Constitutional: This is a well developed, well nourished patient who is awake, alert, pm1 and in no acute distress. Head/Face: Normocephalic, atraumatic. 00:44 Back: No spinal tenderness. No costovertebral tenderness. Full range of motion. Skin: Warm, dry with normal turgor. Normal color with no rashes, no lesions, and no evidence of cellulitis. MS/ Extremity: Pulses equal, no cyanosis. Neurovascular intact. Full, normal range of motion. 00:44 Cardiovascular: Exam negative for acute changes, Rate: normal, Rhythm: regular, Pulses: no pulse deficits are appreciated. 00:44 Cardiovascular: Rate: tachycardic, actual rate is 113 bpm, Edema: is not appreciated. 00:44 Respiratory: Exam negative for acute changes, respiratory distress, shortness of breath. 00:44 Abdomen/GI: Inspection: abdomen appears normal, Palpation: abdomen is soft and non-tender, in all quadrants. 00:44 Neuro: Exam negative for acute changes, Orientation: is normal, Mentation: is normal, Motor: is normal, moves all fours. Vital Signs: 00:44 BP 150 / 76; Pulse 113; Resp 16 S; Temp 97.9(O); Pulse Ox 100% on R/A; Weight 99.79 kg bb (R); Height 5 ft. 5 in. (165.10 cm) (R); Pain 6/10; 02:00 BP 126 / 82; Pulse 97; Resp 18 S; Pulse Ox 100% on R/A; al4 02:30 BP 129 / 71; Pulse 97; Resp 18 S; Pulse Ox 97% on R/A; al4 00:44 Body Mass Index 36.61 (99.79 kg, 165.10 cm) bb MDM: 00:42 Patient medically screened. pm1 01:53 Differential diagnosis: ectopic , menses, IUP. pm1 02:00 Data reviewed: vital signs. Data interpreted: Pulse oximetry: on room air is 100 %. pm1 Interpretation: normal. Counseling: I had a detailed discussion with the patient and/or guardian regarding: the historical points, exam findings, and any diagnostic results supporting the discharge/admit diagnosis, lab results, radiology results, the need for outpatient follow up, to return to the emergency department if symptoms worsen or persist or if there are any questions or concerns that arise at home, informed the patient that she is not with a beta hcg < 1. 09/25 00:44 Order name: Abo/rh Typing; Complete Time: 01:26 pm1 09/25 00:44 Order name: Basic Metabolic Panel; Complete Time: 01:53 pm1 09/25 00:44 Order name: CBC with Diff; Complete Time: 01:23 pm09/25 00:44 Order name: Quantitative Hcg; Complete Time: 01:53 pm09/25 01:58 Order name: Urine --Ancillary (enter results) cs9 09/25 01:58 Order name: Urine Dipstick-Ancillary; Complete Time: 02:02 EDMS 09/25 00:44 Order name: IV Saline Lock; Complete Time: 01:00 pm09/25 00:44 Order name: Labs collected and sent; Complete Time: 01:00 pm09/25 00:44 Order name: NPO; Complete Time: 00:53 pm1 09/25 00:44 Order name: Urine Dipstick-Ancillary (obtain specimen); Complete Time: 01:59 pm1 09/25 00:44 Order name: Urine Test (obtain specimen); Complete Time: 01:59 pm09/25 00:44 Order name: US Transvaginal Ob pm1 09/25 02:03 Order name: Urine --Ancillary; Complete Time: 02:03 EDMS Administered Medications: 01:00 Drug: NS 0.9% 1000 ml Route: IV; Rate: 1000 ml; Site: right antecubital; al4 03:03 Follow up: IV Status: Completed infusion; IV Intake: 900ml al4 Point of Care Testing: Urine : 03:02 hCG Reading: Negative; Control Reading: Negative; al4 Disposition: 06:25 Co-signature as Attending Physician, Byron Schultz MD I agree with the assessment and sp3 plan of care. Disposition Summary: 09/25/21 02:02 Discharge Ordered Location: Home pm1 Problem: new pm1 Symptoms: have improved pm1 Condition: Stable pm1 Diagnosis - Abnormal uterine and vaginal bleeding, unspecified pm1 Followup: pm1 - With: Emergency Department - When: As needed - Reason: Worsening of condition Followup: pm1 - With: Private Physician - When: 2 - 3 days - Reason: Recheck today's complaints, Continuance of care, Re-evaluation by your physician Discharge Instructions: - Discharge Summary Sheet pm1 - Abnormal Uterine Bleeding pm1 Forms: - Medication Reconciliation Form pm1 - Thank You Letter pm1 - Antibiotic Education pm1 - Prescription Opioid Use pm1 Signatures: Dispatcher [employer] Carla Pandya RN RN bb Noé Sandoval, DIRECTOR APPOINTMENT DIRECTOR APPOINTMENT pm1 Byron Schultz MD MD sp3 Juan Luis Bella4 Corrections: (The following items were deleted from the chart) 00:47 00:46 PMHx: NOSE BLEEDS; leroy harper 00:47 00:46 PMHx: seasonal allergies; leroy harper
[2021-09-25 03:14] VITALS: TEMP 97.9; O2SAT 100
[2021-09-25 03:15] VITALS: BP 126/82
--- NOTE | 2021-09-25 19:01 | RAD REPORT ---
EXAM DESCRIPTION: US - Transvaginal OB - 09/25/2021 2:03 am CLINICAL HISTORY: The patient is 21 years old and is Female; VAGINAL BLEEDING TECHNIQUE: Real-time transvaginal obstetrical ultrasound of the maternal pelvis and a first trimeste r with image documentation. Transvaginal imaging was used for better evaluation of the fe tus and adnexa. COMPARISON: No relevant prior studies available. FINDINGS: GESTATION: There is no evidence of an intrauterine . UTERUS/CERVIX: Unremarkable. No myometrial mass. OVARIES: The right ovary measures 3.7 x 2.2 x 2.3 cm. Normal arterial and venous color Doppler an d spectral waveform is present. The left ovary measures 4.0 x 2.0 x 2.7 cm. Normal arterial and venou s color Doppler and spectral waveform is present. No mass. FREE FLUID: No free fluid. IMPRESSION: No evidence of an intrauterine . Findings suggest a of unknown locati on. Recommend continued follow-up with serial hCG and ultrasound. Electronically signed by: Angeline Solares MD 09/25/2021 1:44 AM LEAD RETAIL SALES ASSOCIATE Due to temporary technical issues with the PACS/Fluency reporting system, reports are being signed by the in house radiologists without review as a courtesy to insure prompt reporting. The interpreting radiologist is fully responsible for the content of the report.
== END 2021-09-25 03:02 | disposition home or self-care (01) ==
LOC: ER 00:19
DX: N93.9 Abnormal uterine and vaginal bleeding, unspecified (principal)
CPT/HCPCS: 96361; 85025; 80048; 36415; 86900; 81025; 86901; 84702; 81003; 76817; 96360; 99284; J7030

== ENCOUNTER 2022-01-16 08:31 | Emergency (ER) | payer OTHER ==
--- OUTSIDE RECORDS SUMMARY | 2022-01-16 08:34 | XMS REPORT | Continuity of Care Document ---
:2000 Author Organization [facility] t Address [facility] [address] [place] [address] Care Team Providers Name Role Phone Ivan Joseph Primary Care Physician Chris JENNINGS R Attending Clinician Akinsijulianna GALLARDOP, C Attending Clinician Raju_P Attending Clinician Unavailable Raju_P Admitting Clinician Unavailable Payers Payer Name Policy Type Policy Number Effective Date Expiration Date S ource Problems Condition Condition Condition Status Onset Resolution Last Treating Co mments Source Name Details Category Date Date Treatment Clinician Date Need for Need for Disease Active Unive rs prophylact prophylact 3-24 it y of ic ic 00:00: [place] vaccinatio vaccinatio 00 Me dical n and n and Branch inoculatio inoculatio n against n against influenza influenza Feeling Feeling Disease Active Univers sad sad 5- ity of 00:00: [place] 00 Medical Branch Encounter Encounter Disease Active Uni vers for other for other 5-07 ity of general general 00:00: [place] counseling counseling 00 Me dical or advice or advice Bran ch on on contracept contracept ion ion Class 1 Class 1 Disease Active Univers obesity obesity 3-24 ity of due to due to 00:00: [place] excess excess 00 Medical calories calories Branch with with serious serious comorbidit comorbidit y and body y and body mass index mass index (BMI) of (BMI) of 34.0 to 34.0 to 34.9 in 34.9 in adult adult BMI BMI Disease Active Univers 34.0-34.9, 34.0-34.9, 3-24 it y of adult adult 00:00: [place] [facility] Absence of Absence of Disease Active U nivers menstruati menstruati 3-24 it y of on on 00:00: [place] [id number] Medical Branch Breast Breast Disease Active Univers tenderness tenderness 3-24 it y of in female in [place] [facility] Elevated Elevated Disease Active Unive rs blood blood 2-21 ity of pressure pressure 00:00: [place] reading reading 00 Medical without without Branch diagnosis diagnosis of of hypertensi hypertensi on on Other Other Disease Active Univers depression depression 1-09 it y of 00:00: [place] [id number] Medical Branch Nexplanon Nexplanon Disease Active Uni vers removal removal - ity of 00:00: [address] Branch Screening Screening Disease Active Uni vers examinatio examinatio -09 it y of n for STD n for STD 00:[place] (sexually (sexually 00 Medi danni transmitte transmitte Br anch d disease) d disease) BMI BMI Disease Active 2018-08 Univers 29.0-29.9, 29.0-29.9, 0-16 it y of adult adult 00:00: [place] [facility] Branch HPV HPV Disease Active 2018-08 Univers vaccine vaccine 0-16 ity of counseling counseling [place] [facility] [place] Overweight Overweight Disease Active 2018-08 U nivers 0-16 ity of 00:00: [place] [facility] Branch Lump or Lump or Disease Active Univers mass in mass in -13 ity of breast breast 00:00: [address] Branch Nexplanon Nexplanon Disease Resolve 2019-08-20 2019-08-20 Univers insertion insertion d -13 00:00:00 15:53:54 ity of 00:00: [place] [id number] Medical Branch Allergies, Adverse Reactions, Alerts This patient has no known allergies or adverse reactions. Social History Social Habit Start Date Stop Date Quantity Comments Source History [facility] University o f Alcohol Frequency [facility] edical Branch History [facility] University o f Alcohol Std [place] [facility] Drinks Branch History SDOH University o f Alcohol Binge [place] [facility] Exposure to 2022-01-01 2022-01-11 Not sure [facility] SARS-CoV-2 00:00:00 15:49:00 [facility] (event) Branch Alcohol intake 2022-01-11 2022-01-11 Current drinker Unive rsity of 00:00:00 00:00:00 of alcohol [place] [facility] (finding) Branch Alcohol Comment 2021-11-02 2021-11-02 social Universit y of 00:00:00 00:00:00 [facility] Tobacco use and 2014-11-22 2014-11-22 Never used Universit y of exposure 00:00:00 00:00:00 [facility] Sex Assigned At [birth year] Universit y of 00:00:00 00:00:00 [facility] Smoking Status Start Date Stop Date Source Never smoker [facility] Branch Medications Ordered Filled Start Stop Current Ordering Indication Dosage Frequency Signature Comments Components Source Medication Medication Date Date Medication? Clinician (SIG) Name Name norgestimat Yes [id number] 1{tbl} Take 1 Univers e-ethinyl 4-07 tablet by ity o f estradioL 00:00: mouth [place] 0.18/0.215/ 00 daily. Medica l 0.25 mg-25 Branch mcg tablet norgestimat Yes [id number] 1{tbl} Take 1 Univers e-ethinyl 4-07 tablet by ity o f estradioL 00:00: mouth [place] 0.18/0.215/ 00 daily. Medica l 0.25 mg-25 Branch mcg tablet benzonatate Yes [id number] 100mg Take 1 Univers 100 mg 3-07 capsule by ity of capsule 00:00: mouth 3 [place] 00 (three) Medical times Branch daily as needed for Cough. albuterol Yes [id number] 6{puff} Inhale 6 Univers 90 3-07 Puffs ity of mcg/actuati 00:00: every 4 Matt as on inhaler 00 (four) Medical hours as Branch needed for Wheezing or Shortness of Breath. benzonatate Yes [id number] 100mg Take 1 Univers 100 mg 3-07 capsule by ity of capsule 00:00: mouth 3 [place] 00 (three) Medical times Branch daily as needed for Cough. albuterol Yes [id number] 6{puff} Inhale 6 Univers 90 3-07 Puffs ity of mcg/actuati 00:00: every 4 Matt as on inhaler 00 (four) Medical hours as Branch needed for Wheezing or Shortness of Breath. etonogestre 2020- No Nexplanon 68mg Univers L 12-16 insertion ity of (NEXPLANON) 15:45: 14:44 [place] implant 68 00 :00 Medical mg Branch etonogestre 2020- No [id number] 68mg 68 mg, Univers L 12-16 Subdermal, ity of (NEXPLANON) 15:45: 14:44 ONCE NOW, [place] implant 68 00 :00 1 dose, Medica l mg 12/16/20 Branch at 1045, Routine
Use approved by: INSTRUCTIONAL PARAPROFESSIONAL etonogestre 2020- No Nexplanon 68mg Univers L 12-16 insertion ity of (NEXPLANON) 15:45: 14:44 [place] implant 68 00 :00 Medical mg Branch etonogestre 2020- No [id number] 68mg 68 mg, Univers L 12-16 Subdermal, ity of (NEXPLANON) 15:45: 14:44 ONCE NOW, [place] implant 68 00 :00 1 dose, Medica l mg 12/16/20 Branch at 1045, Routine
Use approved by: INSTRUCTIONAL PARAPROFESSIONAL Immunizations Ordered Immunization Filled Immunization Date Status Commen ts Source Name Name Influenza Virus 2021-11-02 Completed Universit y of Vaccine Quad .5 mL 00:00:00 [facility] IM 6+ MO Branch Influenza Virus 2021-11-02 Completed Universit y of Vaccine Quad .5 mL 00:00:00 [facility] IM 6+ MO Branch SARS-COV-2 COVID-19 2021-03-27 Completed Unive rsity of PFIZER VACCINE 00:00:00 [facility] SARS-COV-2 COVID-19 2021-03-27 Completed Unive rsity of PFIZER VACCINE 00:00:00 [facility] SARS-COV-2 COVID-19 2021-03-06 Completed Unive rsity of PFIZER VACCINE 00:00:00 [facility] SARS-COV-2 COVID-19 2021-03-06 Completed Unive rsity of PFIZER VACCINE 00:00:00 [facility] HPV9 2019-08-25 Completed University of 00:00:00 [facility] HPV9 2019-08-25 Completed University of 00:00:00 [facility] HPV9 2019-08-25 Completed University of 00:00:00 [facility] HPV9 2019-08-25 Completed University of 00:00:00 [facility] HPV9 2019-05-27 Completed University of 00:00:00 [facility] HPV9 2019-05-27 Completed University of 00:00:00 [facility] HPV9 2019-05-27 Completed University of 00:00:00 [facility] HPV9 2019-05-27 Completed University of 00:00:00 [facility] TDAP (ADACEL) 2014-06-24 Completed University of VACCINE 00:00:00 [facility] Meningococcal 2014-06-24 Completed University of Vaccine 00:00:00 [facility] TDAP (ADACEL) 2014-06-24 Completed University of VACCINE 00:00:00 [facility] Meningococcal 2014-06-24 Completed University of Vaccine 00:00:00 [facility] TDAP (ADACEL) 2014-06-24 Completed University of VACCINE 00:00:00 [facility] Meningococcal 2014-06-24 Completed University of Vaccine 00:00:00 [facility] TDAP (ADACEL) 2014-06-24 Completed University of VACCINE 00:00:00 [facility] Meningococcal 2014-06-24 Completed University of Vaccine 00:00:00 [facility] TDAP (ADACEL) 2013-03-12 Completed University of VACCINE 00:00:00 [facility] TDAP (ADACEL) 2013-03-12 Completed University of VACCINE 00:00:00 [facility] TDAP (ADACEL) 2013-03-12 Completed University of VACCINE 00:00:00 [facility] TDAP (ADACEL) 2013-03-12 Completed University of VACCINE 00:00:00 [facility] Vital Signs Vital Name Observation Time Observation Value Comments Source Systolic blood 2022-01-11 20:49:00 150 mm[Hg] Univer sity of pressure [facility] Diastolic blood 2022-01-11 20:49:00 99 mm[Hg] Unive rsity of pressure [facility] Heart rate 2022-01-11 20:49:00 78 /min Universi ty of [facility] Body temperature 2022-01-11 20:49:00 36.33 [place] Univ ersity of [facility] Respiratory rate 2022-01-11 20:49:00 16 /min Univ ersity of [facility] Body height 2022-01-11 20:49:00 165.1 cm Universi ty of [facility] Body weight 2022-01-11 20:49:00 91.899 kg Universi ty of [facility] BMI 2022-01-11 20:49:00 33.71 kg/m2 Universi ty of [facility] Systolic blood 2020-12-16 14:02:00 133 mm[Hg] Univer sity of [facility] Diastolic blood 2020-12-16 14:02:00 85 mm[Hg] Unive rsity of [facility] Heart rate 2020-12-16 14:02:00 89 /min Universi ty of [facility] Body temperature 2020-12-16 14:02:00 36.56 [place] Univ ersity of [facility] Respiratory rate 2020-12-16 14:02:00 16 /min Univ ersity of [facility] Body height 2020-12-16 14:02:00 165.1 cm Universi ty of [facility] Body weight 2020-12-16 14:02:00 89.444 kg Universi ty of [facility] BMI 2020-12-16 14:02:00 32.81 kg/m2 Universi ty of [facility] Procedures Procedure Date / Time Performed Performing Clinician Carrie grimes POCT TEST 2022-01-11 20:51:00 Jacob Perez Unive rsity [facility] POCT TEST 2020-12-16 14:24:00 Floridalma Castellanos [facility] Plan of Care Planned Activity Planned Date Details Comments Source Future Scheduled 2024-06-24 DTaP,Tdap,and Td Univers ity of Test 00:00:00 Vaccines (3 - Td) [facility] [code = Branch DTaP,Tdap,and Td Vaccines (3 - Td)] Future Scheduled 2024-06-24 DTaP,Tdap,and Td Univers ity of Test 00:00:00 Vaccines (3 - Td) [place] [facility] danni [code = Branch DTaP,Tdap,and Td Vaccines [...] Screening for University of Test 00:00:00 Chlamydia [place] [facility] trachomatis Branch (procedure) [code = 932616670] Future Scheduled 2021-11-02 Depression screening Uni versity of Test 00:00:00 (procedure) [code = [facility] dical [id number]] Branch Future Scheduled 2021-11-02 MENINGOCOCCAL B Postponed [...] 00:00:00 (procedure) [code = [place] Me dical [id number]] Branch Future Scheduled 2021-11-02 Screening for University of Test 00:00:00 Chlamydia [place] [facility] trachomatis Branch (procedure) [code = 174856201] Future Scheduled 2021-11-02 Depression screening Uni versity of Test 00:00:00 (procedure) [code = [place] dical [id number]] Branch Future Scheduled 2021-11-02 MENINGOCOCCAL B Postponed from Univer sity of Test 00:00:00 VACCINES (1 of 2 - 2011 [place] [facility] ical Risk Bexsero 2-dose (Refused) Branch [...] of Test 00:00:00 (procedure) [code = [place] d[place] [id number]] Branch Future Scheduled 2021-04-12 INFLUENZA VACCINE Univer [...] Test 00:00:00 3-dose series) [code 12/24/2019 [facility] edical = HPV VACCINES (3 - ( or Branch 3-dose series)] ) Future Scheduled 2020-12-19 HPV VACCINES (3 - Postponed from Univ ersity of Test 00:00:00 3-dose series) [code 12/24/2019 [facility] edical = HPV VACCINES (3 - ( or Branch 3-dose series)] ) Future Scheduled 2020-12-17 Hepatitis C Postponed from Universit y of Test 00:00:00 screening 2019 [place] [facility] (procedure) [code = (Alternative Branch [id number]] Guidelines) Future Scheduled 2020-12-17 Hepatitis C Postponed from Universit y of Test 00:00:00 screening 2019 [place] [facility] (procedure) [code = (Alternative Branch [id number]] Guidelines) Encounters Start End Encounter Admission Attending Care Care Encounter Source Date/Time Date/Time Type Type Clinicians Facility Department ID 2022-01-12 2022-01-12 OMAYRA Cisneros [id number] Univers 00:00:00 [facility]00[facility] IN[facility]CTIONAL PARAPROFESSIONAL [id number] ity of [facility] [id number] Matt as MATERNAL [phone] [facility] ical & CHILD [address] [place] [address] 2022-01-11 2022-01-11 Office Chris [facility] [id number] Univers 15:15:00 16:08:32 [facility] INSTRUCTIONAL PARAPROFESSIONAL [id number] ity [facility] [id number] Matt as MATERNAL [phone] [facility] ical & CHILD [address] [place] [address] 2020-12-30 2020-12-30 [facility] [id number] 09:29:12 10:10:09 [facility] INSTRUCTIONAL PARAPROFESSIONAL [id number] REGIONAL [id number] MATERNAL [phone] & CHILD [address] [place] [address] 2019-11-03 2019-11-03 Outpatient Raju_P MMG MMG [id number] [place] 05:13:00 05:13:00 [id number] [facility] Results Test Description Test Time Test Comments Results Result Comments Source POCT TEST 2022-01-11 20:51:00 Test Item Value Reference Range Interpretation Comme nts POCT PREG (test code = 1605) Negative On board controls acceptable with C Line (test code = 3574) Yes POCT PREG LOT # (test code = 3575) POCT PREG TEST DATE (test code = 3576) [id number] 14:24:00 Test Item Value Reference Range Interpretation Comments POCT PREG (test code = 1605) Negative On board controls acceptable with C Yes Line (test code = 3574) POCT PREG LOT # (test code = 3575) POCT PREG TEST DATE (test code = 3576) [id number] 14:24:00 Test Item Value Reference Range Interpretation Comments POCT PREG (test code = 1605) Negative On board controls acceptable with C Yes Line (test code = 3574) POCT PREG LOT # (test code = 3575) POCT PREG TEST DATE (test code = 3576) [facility]
--- NOTE | 2022-01-16 09:03 | ER ---
Nurse's Notes [facility] Name: Maylin Zuniga Age: 21 yrs Sex: Female : 2000 Arrival Date: 01/16/2022 Time: 08:33 Bed 17 Private MD: Diagnosis: Paronychia of left 2nd digit Presentation: 01/16 08:39 Chief complaint: Patient states: she noticed a bump on her left pointer finger ap3 yesterday which was larger this morning when she woke up. Patient states the fingernail area of the finger is tender to touch and has a throbbing pain. Patient states she started an antibiotic yesterday for the finger. Coronavirus screen: At this time, the client does not indicate any symptoms associated with coronavirus-19. Ebola Screen: No symptoms or risks identified at this time. Initial Sepsis Screen: Does the patient meet any 2 criteria? No. Patient's initial sepsis screen is negative. Does the patient have a suspected source of infection? No. Patient's initial sepsis screen is negative. Risk Assessment: Do you want to hurt yourself or someone else? Patient reports no desire to harm self or others. Onset of symptoms was January 15, 2022. 08:39 Method Of Arrival: Ambulatory ap3 08:39 Acuity: VINNY 4 ap3 Triage Assessment: 08:41 General: Appears in no apparent distress. Behavior is calm. Pain: Complains of pain in ap3 left index fingernail Pain began gradually, 1 day ago. Neuro: Level of Consciousness is awake, alert, obeys commands, Oriented to person, place, time, situation, Appropriate for age. Cardiovascular: Patient's skin is warm and dry. Respiratory: Airway is patent Respiratory effort is even, unlabored. Derm: Wound noted left index fingernail. 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 - Social history:: Smoking status: Patient denies any tobacco usage or history of. - Family history:: not pertinent. - Hospitalizations: : No recent hospitalization is reported. Screenin:42 Abuse screen: Denies threats or abuse. Nutritional screening: No deficits noted. ap3 Tuberculosis screening: No symptoms or risk factors identified. Fall Risk None identified. Assessment: 09:13 General: Appears in no apparent distress. Behavior is calm, cooperative. Pain: ww Complains of pain in dorsal aspect of distal phalanx of left index finger and left index fingernail. Neuro: Level of Consciousness is awake, alert, obeys commands, Oriented to person, place, time, situation, Moves all extremities. Gait is steady, Speech is normal. Cardiovascular: Capillary refill < 3 seconds Patient's skin is warm and dry. Respiratory: Airway is patent Respiratory effort is even, unlabored, Respiratory pattern is regular, symmetrical. GI: No signs and/or symptoms were reported involving the gastrointestinal system. : No signs and/or symptoms were reported regarding the genitourinary system. Vital Signs: 08:39 BP 134 / 92; Pulse 64; Resp 16; Temp 98.2; Pulse Ox 100% ; Weight 81.65 kg; Height 5 ap3 ft. 5 in. (165.10 cm); Pain 7/10; 08:39 Body Mass Index 29.95 (81.65 kg, 165.10 cm) ap3 ED Course: 08:33 Patient arrived in ED. as 08:35 Enrique Llanos MD is Attending Physician. rn 08:40 Triage completed. ap3 08:43 Arm band placed on left wrist. ap3 09:09 Genie Can RN is Primary Nurse. ww 09:14 No provider procedures requiring assistance completed. Patient did not have IV access ww during this emergency room visit. Administered Medications: No medications were administered Outcome: 09:03 Discharge ordered by . rn 09:14 Discharged to home ambulatory. ww 09:14 Condition: stable 09:14 Discharge instructions given to patient, Instructed on discharge instructions, follow up and referral plans. medication usage, safety practices, wound care, Demonstrated understanding of instructions, follow-up care, medications, wound care, Prescriptions given X 1. 09:14 Patient left the ED. ww Signatures: Cheryl Meeks as Enrique Llanos MD MD rn Prokisch, Amanda, RN RN ap3 Genie Can RN RN ww Corrections: (The following items were deleted from the chart) 08:41 08:39 Chief complaint: Patient states: she noticed a bump on her left pointer finger ap3 yesterday which was larger this morning when she woke up. Patient states the fingernail area of the finger is tender to touch and has a throbbing pain. ap3
--- NOTE | 2022-01-16 09:03 | EDPHYS ---
Physician Documentation [facility] Name: Maylin Zuniga Age: 21 yrs Sex: Female : 2000 Arrival Date: 01/16/2022 Time: 08:33 Bed 17 Private MD: ED Physician Enrique Llanos HPI: 01/16 08:57 This 21 yrs old Female presents to ER via Ambulatory with complaints of finger rn problem. 08:57 The patient or guardian reports swelling, tenderness. The complaints affect the left rn 2nd fingernail. Onset: The symptoms/episode began/occurred yesterday. Modifying factors: The symptoms are alleviated by nothing, the symptoms are aggravated by dependent position, touching finger. Severity of symptoms: At their worst the symptoms were moderate, in the emergency department the symptoms are unchanged. The patient has not experienced similar symptoms in the past. The patient has been recently seen by a physician:. Pt reports ingrown fingernail, bites nails, started abx yesterday, keflex. Increased swelling and pain today.. 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 - Social history:: Smoking status: Patient denies any tobacco usage or history of. - Family history:: not pertinent. - Hospitalizations: : No recent hospitalization is reported. ROS: 08:57 Constitutional: Negative for fever, chills, and weight loss, MS/Extremity: + left 2nd rn finger swelling and pain Exam: 08:57 Constitutional: This is a well developed, well nourished patient who is awake, alert, rn and in no acute distress. MS/ Extremity: Pulses equal, no cyanosis. Neurovascular intact. Full, normal range of motion. + left 2nd digit with swelling along nail margin, + fluctuance and erythema, no proximal swelling or streaking. Vital Signs: 08:39 BP 134 / 92; Pulse 64; Resp 16; Temp 98.2; Pulse Ox 100% ; Weight 81.65 kg; Height 5 ap3 ft. 5 in. (165.10 cm); Pain 7/10; 08:39 Body Mass Index 29.95 (81.65 kg, 165.10 cm) ap3 Procedures: 08:57 I \T\ D: Incision and drainage was performed for an abscess of the left 2nd digit rn fingernail Prepped with Betadine, Incised with 18 g needle. Drained small amount purulent fluid. the patient tolerated the procedure well. MDM: 08:35 Patient medically screened. rn 08:57 Differential diagnosis: abscess, paronychia. Data reviewed: vital signs, nurses notes, rn and as a result, I will discharge patient. Counseling: I had a detailed discussion with the patient and/or guardian regarding: the historical points, exam findings, and any diagnostic results supporting the discharge/admit diagnosis, the need for outpatient follow up, to return to the emergency department if symptoms worsen or persist or if there are any questions or concerns that arise at home. Response to treatment: the patient's symptoms have markedly improved after treatment, and as a result, I will discharge patient. Special discussion: I discussed with the patient/guardian in detail that at this point there is no indication for admission to the hospital. It is understood, however, that if the symptoms persist or worsen the patient needs to return immediately for re-evaluation. Administered Medications: No medications were administered Disposition Summary: 01/16/22 09:03 Discharge Ordered Location: Home rn Problem: new rn Symptoms: have improved rn Condition: Stable rn Diagnosis - Paronychia of left 2nd digit rn Followup: rn - With: Private Physician - When: As needed - Reason: Recheck today's complaints, Re-evaluation by your physician Discharge Instructions: - Discharge Summary Sheet rn - Paronychia rn Forms: - Medication Reconciliation Form rn - Thank You Letter rn - Antibiotic garnett mechanic - Prescription Opioid Use rn - Work release form ww Prescriptions: - Clindamycin HCl 300 mg Oral Capsule - take 1 capsule by ORAL route every 6 hours for 10 days; 40 capsule; Refills: 0, rn Product Selection Permitted Signatures: Enrique Llanos MD MD rn Prokisch, Amanda, RN RN ap3
[2022-01-16 09:20] VITALS: BP 134/92; TEMP 98.2; O2SAT 100
== END 2022-01-16 09:14 | disposition home or self-care (01) ==
LOC: ER 08:31
PROC: 0H9GXZZ Drainage of Left Hand Skin, External Approach (ICD-10-PCS; principal; 2022-01-16)
DX: L03.012 Cellulitis of left finger (principal)
CPT/HCPCS: 99282

== ENCOUNTER 2022-07-23 07:37 | Emergency (ER) | payer OTHER ==
--- OUTSIDE RECORDS SUMMARY | 2022-07-23 07:41 | XMS REPORT | Continuity of Care Document ---
:2000 Author Organization [facility] t Address [address] [place] [address] Dr. Herrera [address] [place] [id number] Care Team Providers Name Role Phone Jacob Joseph Primary Care Physician [phone] UNKNOWN, ATTENDING Attending Clinician Unavailable Jacob Joseph Attending Clinician JACOB BARRIENTOS Attending Clinician Unavailable Visit, [facility] Nurse Attending Clinician Unavailable Doctor Unassigned, Gorman Attending Clinician Unavailable ALIVIA ERNANDEZ Attending Clinician Unavailable Alivia Swanson Attending Clinician CINDY APARICIO Attending Clinician Unavailable FLORIDALMA CASTELLANOS Attending Clinician Unavailable Rayne Jones RN Attending Clinician Unavailable NI ALVAREZ Attending Clinician Unavailable Floridalma Diane Attending Clinician [phone] Joel Matt DO Attending Clinician Catalina Lara Attending Clinician Arcad[facility] Attending Clinician Unavailable CATALINA HATFIELD Attending Clinician Unavailable Fletcher Ramesh MD Attending Clinician Frank WISE, Ethel Attending Clinician Unavailable Radha_P Attending Clinician Unavailable Alvin Nobles Attending Clinician Radha_P Admitting Clinician Unavailable Payers Payer Name Policy Type Policy Number Effective Date Expiration Date Milagros farris [facility], [facility] [id number] 2020 CHOICE [place] STAR 00:00:00 [facility] [id number] 2019 00:00:00 [place] [id number] 2019 00:00:00 Problems Condition Condition Condition Status Onset [...] Univers sad sad 5- ity of 00:00: [place] [facility] Encounter Encounter Disease Active Uni vers for other for other 12-16 ity of general general 00:00: [place] counseling counseling 00 Me dical or advice or advice Bran ch on on contracept contracept ion ion Absence of Absence of Disease Active U nivers menstruati menstruati 3-24 it y of on on 00:00: [place] 00 Medical Branch Breast Breast Disease Active Univers tenderness tenderness 3-24 it y of in female in female 00:00: [facility] s Medical Branch Class 1 Class 1 Disease [...] 3-24 it y of adult adult 00:00: [place] 00 Medical Branch Elevated Elevated Disease Active Unive rs blood blood 2-21 ity of pressure pressure 00:00: [place] reading reading 00 Medical without without Branch diagnosis diagnosis of of hypertensi hypertensi on on Other Other Disease Active Univers depression depression - it y of 00:00: [place] [facility] Nexplanon Nexplanon Disease Active Uni vers removal removal 08-20 ity of 00:00: [place] 00 Medical [facility] Screening Screening Disease Active Uni vers examinatio examinatio 08-20 it y of n for STD n for STD 00:[place] (sexually (sexually 00 Medi danni transmitte transmitte Br anch d disease) d disease) BMI BMI Disease Active 2018-08 Univers 29.0-29.9, 29.0-29.9, 0-16 it y of adult adult 00:00: [place] [facility] HPV HPV Disease Active 2018-08 Univers vaccine vaccine 0-16 ity of counseling [place] [facility] Overweight Overweight Disease Active 2018-08 U nivers 0-16 ity of 00:00: [place] [facility] Lump or Lump or Disease Active Univers mass in mass in 11-22 ity of breast breast 00:00: [place] [facility] Nexplanon Nexplanon Disease Resolve 2019-08-20 2019-08-20 Univers insertion insertion d 11-22 00:00:00 15:53:54 ity of 00:00: [place] [facility] Allergies, Adverse Reactions, Alerts Allergy Allergy Status Severity Reaction(s) Onset Inactive Treating Comm ents Source Name Type Date Date Clinician NO KNOWN Drug Active Univers ALLERGIE Class ity of S [facility] Social History Social Habit Start Date Stop Date Quantity Comments Source History SDOH University o f Alcohol Frequency [place] [facility] History SDOH University o f Alcohol Std [place] [facility] Drinks Branch History SDGA University o f Alcohol Binge [place] [facility] Exposure to 2022-02-05 2022-02-15 Not sure University of SARS-CoV-2 00:00:00 08:51:00 [facility] (event) Branch Alcohol intake 2022-02-15 2022-02-15 Current drinker Unive rsity of 00:00:00 00:00:00 of alcohol [facility] (finding) [place] Alcohol Comment 2021-11-02 2021-11-02 social Universit y of 00:00:00 00:00:00 [facility] Tobacco use and 2014-11-22 2014-11-22 Never used Universit y of exposure 00:00:00 00:00:00 [facility] Sex Assigned At [birth year] Universit y of 00:00:00 00:00:00 [facility] Smoking Status Start Date Stop Date Source Never smoker [facility] Branch Medications Ordered Filled Start Stop Current Ordering Indication Dosage Frequency Signature Comments Components Source Medication Medication Date Date Medication? Clinician (SIG) Name Name norgestimat Yes [id number] 1{tbl} Take 1 Univers e-ethinyl 7-07 tablet by ity o f estradioL 00:00: mouth [place] 0.18/0.215/ 00 daily. Medica l 0.25 mg-25 Branch mcg tablet norgestimat 2021- No [id number] 1{tbl} Take 1 Univers e-ethinyl 4-07 07-07 tablet by ity of estradioL 00:00: 00:00 mouth [place] 0.18/0.215/ 00 :00 daily. Medica l 0.25 mg-25 Branch mcg tablet benzonatate Yes [id number] 100mg Take 1 Univers 100 mg 3-07 capsule by ity of capsule 00:00: mouth 3 [place] 00 (three) Medical times Branch daily as needed for Cough. albuterol Yes [id number] 6{puff} Inhale 6 Univers 90 3-07 Puffs ity of mcg/actuati 00:00: every 4 Matt as on inhaler 00 (four) Medical hours as Branch needed for Wheezing or Shortness of Breath. etonogestre 2020- No Nexplanon 68mg Univers L 12-16- insertion ity of (NEXPLANON) 15:45: 14:44 [place] implant 68 00 :00 Medical mg Branch etonogestre 2020- No [id number] 68mg 68 mg, Univers L 12-16-07 Subdermal, ity of (NEXPLANON) 15:45: 14:44 ONCE NOW, [place] implant 68 00 :00 1 dose, Medica l mg 12/16/20 Branch at 1045, Routine
Use approved by: CLIENT SERVICES VICE PRESIDENT etonogestre 2020- No Nexplanon 68mg Univers L 12-16- insertion ity of (NEXPLANON) 15:45: 14:44 [place] implant 68 00 :00 Medical mg Branch etonogestre 2020- No [id number] 68mg 68 mg, Univers L 5-07 05-07 Subdermal, ity of (NEXPLANON) 15:45: 14:44 ONCE NOW, [place] implant 68 00 :00 1 dose, Medica l mg 12/16/20 Branch at 1045, Routine
Use approved by: CLIENT SERVICES VICE PRESIDENT Immunizations Ordered Immunization Filled Immunization Date Status Commen ts Source Name Name Influenza Virus 2021-11-02 Completed Universit y of Vaccine Quad .5 mL 00:00:00 [facility] 6+ MO [place] SARS-COV-2 COVID-19 2021-03-27 Completed Unive rsity of PFIZER VACCINE 00:00:00 [facility] [place] SARS-COV-2 COVID-19 2021-03-06 Completed Unive rsity of PFIZER VACCINE 00:00:00 [facility] [place] HPV9 2019-08-25 Completed University of 00:00:00 [facility] HPV9 2019-08-25 Completed University of 00:00:00 [facility] HPV9 2019-08-25 Completed University of 00:00:00 [facility] HPV9 2019-05-27 Completed University of 00:00:00 [facility] HPV9 2019-05-27 Completed University of 00:00:00 [facility] HPV9 2019-05-27 Completed University of 00:00:00 [facility] TDAP (ADACEL) 2014-06-24 Completed University of VACCINE 00:00:00 [facility] Meningococcal 2014-06-24 Completed University of Vaccine 00:00:00 [facility] TDAP (ADACEL) 2014-06-24 Completed University of VACCINE 00:00:00 [facility] Meningococcal 2014-06-24 Completed University of Vaccine 00:00:00 [facility] TDAP (ADACEL) 2014-06-24 Completed University of VACCINE 00:00:00 [facility] Meningococcal 2014-06-24 Completed University of Vaccine 00:00:00 [facility] TDAP (ADACEL) 2013-03-12 Completed University of VACCINE 00:00:00 [facility] TDAP (ADACEL) 2013-03-12 Completed University of VACCINE 00:00:00 [facility] TDAP (ADACEL) 2013-03-12 Completed University of VACCINE 00:00:00 [facility] Vital Signs Vital Name Observation Time Observation Value Comments Source Systolic blood 2022-02-15 13:51:00 127 mm[Hg] Univer sity of pressure [place] [facility] Diastolic blood 2022-02-15 13:51:00 88 mm[Hg] Unive rsity of pressure [place] [facility] Heart rate 2022-02-15 13:51:00 71 /min Universi ty of [place] [facility] Body temperature 2022-02-15 13:51:00 36.11 [place] Univ ersity of [place] [facility] Respiratory rate 2022-02-15 13:51:00 16 /min Univ ersity of [place] [facility] Body height 2022-02-15 13:51:00 165.1 cm Universi ty of [place] [facility] Body weight 2022-02-15 13:51:00 89.313 kg Universi ty of [place] [facility] BMI 2022-02-15 13:51:00 32.77 kg/m2 Universi ty of [place] [facility] Systolic blood 2020-12-16 14:02:00 133 mm[Hg] Univer sity of pressure [place] [facility] Diastolic blood 2020-12-16 14:02:00 85 mm[Hg] Unive rsity of pressure [place] [facility] Heart rate 2020-12-16 14:02:00 89 /min Universi ty [facility] [place] [facility] Body temperature 2020-12-16 14:02:00 36.56 [place] Univ ersity of [place] [facility] Respiratory rate 2020-12-16 14:02:00 16 /min Univ ersity of [place] [facility] Body height 2020-12-16 14:02:00 165.1 cm Universi ty [facility] [place] [facility] Body weight 2020-12-16 14:02:00 89.444 kg [facility]i ty [facility] [place] [facility] BMI 2020-12-16 14:02:00 32.81 kg/m2 Universi ty [facility] [place] [facility] Systolic blood 2020-12-16 14:02:00 133 mm[Hg] Univer sity of pressure [place] [facility] Diastolic blood 2020-12-16 14:02:00 85 mm[Hg] Unive rsity of pressure [place] [facility] Heart rate 2020-12-16 14:02:00 89 /min Universi ty [facility] [place] [facility] Body temperature 2020-12-16 14:02:00 36.56 [place] Univ ersity of [place] [facility] Respiratory rate 2020-12-16 14:02:00 16 /min Univ ersity of [place] [facility] Body height 2020-12-16 14:02:00 165.1 cm [facility] Body weight 2020-12-16 14:02:00 89.444 kg [facility] BMI 2020-12-16 14:02:00 32.81 kg/m2 [facility] Procedures Procedure Date / Time Performed Performing Clinician Sourc e POCT TEST 2020-12-16 14:24:00 [facility] [place] [facility] Planned Activity Planned Date Details Comments Source Future Scheduled 2024-06-24 DTaP,Tdap,and Td Univers ity of Test 00:00:00 Vaccines (3 - Td) [facility] [code = Branch DTaP,Tdap,and Td Vaccines (3 - Td)] Future Scheduled 2024-06-24 DTaP,Tdap,and Td Univers ity of Test 00:00:00 Vaccines (3 - Td) [facility] [code = Branch DTaP,Tdap,and Td Vaccines (3 [...] Screening for University of Test 00:00:00 Chlamydia [facility] trachomatis Branch (procedure) [code = 420328460] Future Scheduled 2021-11-02 Depression screening Uni versity of Test 00:00:00 (procedure) [code = [place] Ca dical 614141397] Branch Future Scheduled 2021-11-02 MENINGOCOCCAL B Postponed from Univer sity of Test 00:00:00 VACCINES (1 of 2 - 2011 [place] Med ical Risk Bexsero 2-dose (Refused) Branch series) [code = MENINGOCOCCAL B VACCINES (1 of 2 - Risk Bexsero 2-dose series)] Future Scheduled 2021-11-02 VARICELLA VACCINES Postponed from Uni versity of Test 00:00:00 (1 of 2 - 2-dose 2002 [place] [facility] childhood series) (Refused) Branch [code = VARICELLA VACCINES (1 of 2 - 2-dose childhood series)] Future Scheduled 2021-11-02 Well child visit Univers ity of Test 00:00:00 (procedure) [code = [facility] dical [id number]] Branch Future Scheduled 2021-11-02 Screening for University of Test 00:00:00 Chlamydia [place] [facility] trachomatis Branch (procedure) [code = 696786596] Future Scheduled 2021-11-02 Depression screening Uni versity of Test 00:00:00 (procedure) [code = [facility] dical [id number]] Branch Future Scheduled 2021-11-02 MENINGOCOCCAL B Postponed from Univer sity of Test 00:00:00 VACCINES (1 of 2 - 2011 [place] Med ical Risk Bexsero 2-dose (Refused) Branch [...] Test 00:00:00 (procedure) [code = [facility] dical [id number]] Branch Future Scheduled 2021-04-12 INFLUENZA VACCINE Univer [...] Test 00:00:00 3-dose series) [code 12/24/2019 [place] M edical = HPV VACCINES (3 - ( or Branch 3-dose series)] ) Future Scheduled 2020-12-19 HPV VACCINES (3 - Postponed from Univ ersity of Test 00:00:00 3-dose series) [code 12/24/2019 [place] M edical = HPV VACCINES (3 - ( or Branch 3-dose series)] ) Future Scheduled 2020-12-17 Hepatitis C Postponed from Universit y of Test 00:00:00 screening 2019 [place] [facility] (procedure) [code = (Alternative Branch [id number]] Guidelines) Future Scheduled 2020-12-17 Hepatitis C Postponed from Universit y of Test 00:00:00 screening 2019 [place] [facility] (procedure) [code = (Alternative Branch 306572135] Guidelines) Encounters Start End Encounter Admission Attending Care Care Encounter Source Date/Time Date/Time Type Type Clinicians Facility Department ID 2021-06-08 Emergency [facility] [id number] Univers 19:53:15 [facility] [place] [facility] 2022 2022 Outpatient Ivan WHITING [facility] [id number] Univers 13:40:00 13:40:00 ATTENDING [facility] [place] [facility] 2022-02-15 2022-02-[address] [facility] [id number] Univers 09:00:00 09:18:29 Visit Jacob Love CLIENT SERVICES VICE PRESIDENT [id number] [facility] [id number] Matt as MATERNAL [phone] Med ical & CHILD [address] [place] [address] 2022-02-15 2022-02-15 Outpatient Ivan BARRINETOS [facility] [id number] Univers 09:00:00 09:18:29 JACOB oh o alvaro [facility] 2022-02-15 2022-02-15 Outpatient Ivan BARRIENTOS [facility] [id number] Univers 09:00:00 09:00:00 JACOB oh o alvaro [facility] 2022-02-15 2022-02-15 Outpatient Ivan BARRIENTOS [facility] [id number] Univers 09:00:00 09:00:00 JACOB john [facility] 2022-01-12 2022-01-[address] [facility] [id number] Univers 00:00:00 00:00:00 Roshunda R CLIENT SERVICES VICE PRESIDENT [id number] ity of REGIONAL [id number] Matt as MATERNAL [phone] [facility] & CHILD [address] [place] [address] 2022-01-11 2022-01-11 Office [facility] [id number] Univers 15:15:00 16:08:32 Visit Sheilanda R CLIENT SERVICES VICE PRESIDENT [id number] ity of REGIONAL [id number] Matt as MATERNAL [phone] [facility] & [address] 2022-01-11 2022-01-11 Outpatient R FLOYD [facility] [id number] Univers 15:15:00 16:08:32 JACOB oh o [facility] 2022-01-11 2022-01-11 Outpatient R FLOYD [facility] [id number] Univers 15:15:00 15:15:00 SHEILANDMounika ity o f [facility] 2021-11-16 2021-11-16 Outpatient R [facility] [id number] Univers 10:30:00 10:30:00 ity of [facility] 2021-11-16 2021-11-16 Outpatient R FLOYD [facility] [id number] Univers 08:00:00 08:20:47 JACOB itnelli o [facility] 2021-11-16 2021-11-16 [facility] 1.2 .840.114 [id number] Univers 08:00:00 08:20:47 Visit Floyd Jacob R CLIENT SERVICES VICE PRESIDENT [id number] ity of [facility] [id number] Matt as MATERNAL [phone] [facility] & CHILD [address] [place] [address] 2021-11-03 2021-11-03 [facility]phone [facility] [id number] Univers 00:00:00 00:00:00 Roshunda R CLIENT SERVICES VICE PRESIDENT [id number] ity of REGIONAL [id number] Matt as MATERNAL [phone] [facility] & CHILD [address] [place] [address] 2021-11-02 2021-11-02 Office [facility] [id number] Univers 10:30:00 11:58:09 Visit Marycarlos Ivan CLIENT SERVICES VICE PRESIDENT [id number] ity [facility] [id number] Matt as MATERNAL [phone] [facility] & CHILD [address] [place] [address] 2021-11-02 2021-11-02 Outpatient R FLOYD [facility] [id number] Univers 10:30:00 11:58:09 [facility] adriano o [facility] 2021-11-02 2021-11-02 Outpatient R FLOYD [facility] [id number] Univers 10:30:00 11:58:09 MARYFANYMounika adriano o [facility] 2021-11-02 2021-11-02 Outpatient R FLOYD [facility] [id number] Univers 10:30:00 10:30:00 [facility] 2021-11-02 2021-11-02 Outpatient R BARRIENTOS [facility] [id number] Univers 10:30:00 10:30:00 [facility] 2021-11-02 2021-11-02 Orders Doctor HADLEY [id number] Univers 00:00:00 00:00:00 Only Unassigned, LEIGHA [id number] ity of [facility] [id number] Matt as [id number] [address] 2021-10-16 2021-10-16 Emergency [facility] ERT [id number] Univers 19:47:00 20:32:00 [facility] 2021-10-16 2021-10-16 Emergency [facility] [id number] Univers 19:47:00 20:32:00 [facility] [id number] ity [facility] [id number] [facility] [phone] [facility] 084 [place] 2021-08-01 2021-08-01 Office [facility] [id number] Univers 08:30:00 09:21:32 Visit Jacob Ivan CLIENT SERVICES VICE PRESIDENT [id number] ity of [facility] [id number] Matt as MATERNAL [id number] [facility] ical & CHILD [address] [place] [address] 2021-08-01 2021-08-01 Outpatient R FLOYD [facility] [id number] Univers 08:30:00 09:21:32 JACOB oh o f [facility] 2021-08-01 2021-08-01 Orders Doctor HADLEY [id number] Univers 00:00:00 00:00:00 Only Unassigned, LEIGHA [id number] ity of [place] [facility] [id number] Matt as [phone] [facility] 009 [place] 2021-07-31 2021-07-31 Telephone [facility] [id number] Univers 00:00:00 00:00:00 Missaelmounika Love CLIENT SERVICES VICE PRESIDENT [id number] ity of [facility] [id number] Matt as MATERNAL [phone] [facility] & CHILD [address] [place] [address] 2021-06-13 2021-06-13 Outpatient Ivan APARICIO [facility] [id number] Univers 10:30:00 10:58:17 CINDY oh [facility] 2021-06-13 2021-06-13 Office [facility] [id number] [id number] Univers 10:01:19 10:58:17 Visit Cindy CLIENT SERVICES VICE PRESIDENT [id number] ity of [facility] [id number] Matt as MATERNAL [phone] [facility] ical & CHILD [address] [facility] 2021-06-13 2021-06-13 Outpatient R MAURY [facility] [id number] Univers 10:30:00 10:30:00 CINDY oh [facility] 2021-06-06 2021-06-06 Telephone [facility] [id number] Univers 00:00:00 00:00:00 Jacob Love CLIENT SERVICES VICE PRESIDENT [id number] ity of [facility] [id number] Matt as MATERNAL [id number] [facility] & CHILD [address] [place] [address] 2021-04-10 2021-04-10 [facility] [id number] Univers 10:00:00 10:00:00 FLORIDALMA renner [facility] 2021-03-31 2021-03-31 Letter RobertHADLEY 1.2.840.114 [id number] Univers 00:00:00 00:00:00 (Out) Rayne AHUJA [id number] it y [facility] [id number] Matt as [phone] [address] 2021-03-30 2021-03-30 Outpatient R ANTONIO [facility] [id number] Univers 12:30:00 12:30:00 NI oh [facility] 2020-12-30 2020-12-30 Office [facility] [id number] Univers 09:29:12 10:10:09 Visit Jacob Love CLIENT SERVICES VICE PRESIDENT [id number] ity [facility] [id number] Matt as MATERNAL [phone] [facility] & CHILD [address] [place] [address] 2020-12-30 2020-12-30 Office [facility] [id number] 09:29:12 10:10:09 Visit Marycarlos Love CLIENT SERVICES VICE PRESIDENT [id number] REGIONAL [id number] MATERNAL [id number] & [address] 2020-12-30 2020-12-30 Outpatient R EMANUEL [facility] [id number] Univers 09:30:00 09:30:00 FLORIDALMA john [facility] 2020-12-30 2020-12-30 Outpatient R FLOYD [facility] [id number] Univers 08:45:00 08:45:00 JACOB renner alvaro [facility] 2020-12-16 2020-12-16 Office [facility] [id number] Univers 08:57:28 09:27:28 Visit Floridalma Curry CLIENT SERVICES VICE PRESIDENT [id number] ity of [facility] [id number] Matt as MATERNAL [id number] [facility] & CHILD [address] [place] [address] 2020-12-16 2020-12-16 Outpatient R EMANUEL [facility] [id number] Univers 09:00:00 09:00:00 FLORIDALMA renner alvaro [facility] 2020-12-16 2020-12-16 Orders Doctor HADLEY [id number] [id number] Univers 00:00:00 00:00:00 Only Unassigned, LEIGHA [id number] ity of [place] [facility] [id number] Matt as [id number] [address] 2020-12-02 2020-12-02 Telephone [facility] 1.2.840.114 [id number] Univers 00:00:00 00:00:00 Floridalma Curry CLIENT SERVICES VICE PRESIDENT [id number] ity of [facility] [id number] Matt as MATERNAL [phone] [address] 2020-11-29 2020-11-29 Nurse Visit, [facility] Nurse [facility] 1.2 .840.114 [id number] Univers 15:31:01 15:46:01 Visit Jacob Barrientos CLIENT SERVICES VICE PRESIDENT [id number] ity of [facility] [id number] Matt as MATERNAL [id number] [address] 2020-11-29 2020-11-29 Outpatient R FLOYD [facility] [id number] Univers 15:30:00 15:30:00 JACOB john [facility] 2020-11-29 2020-11-29 [facility]phone [facility] [id number] Univers 00:00:00 00:00:00 Jacob R CLIENT SERVICES VICE PRESIDENT [id number] ity of [facility] [id number] Matt as MATERNAL [id number] [facility] ical & CHILD [address] [place] [address] 2020-11-02 2020-11-[address] [facility] [id number] Univers 10:16:29 11:05:27 Visit Marycarlos R CLIENT SERVICES VICE PRESIDENT [id number] ity of [facility] [id number] Matt as MATERNAL [phone] [facility] & CHILD [address] [place] [address] 2020-11-02 2020-11-02 Outpatient R FLOYD [facility] [id number] Univers 10:15:00 10:15:00 JACOB oh o f [facility] 2020-11-02 2020-11-02 Orders Doctor HADLEY 1.2.840.114 [id number] Univers 00:00:00 00:00:00 Only Unassigned, LEIGHA [id number] ity of [place] [facility] [id number] Matt as [id number] [address] 2020-11-01 2020-11-01 Outpatient R FLOYD [facility] [id number] Univers 15:00:00 15:00:00 MARYSHELL oh o f [facility] 2020-11-01 2020-11-[address] [facility] [id number] Univers 00:00:00 00:00:00 Outreach Joel MURRAY [id number] i ty of [facility] [id number] [phone] [address] 2020-07-04 2020-07-[address] [facility] [id number] Univers 00:00:00 00:00:00 Floridalma Curry CLIENT SERVICES VICE PRESIDENT [id number] ity of [facility] [id number] Matt as MATERNAL [phone] [facility] ical & CHILD [address] [place] [address] 2020-06-13 2020-06-13 Outpatient R AKINSIPE, [facility] [id number] Univers 09:15:00 09:15:00 FLORIDALMA ity o f [facility] 2020-06-13 2020-06-13 Outpatient R AKINSIPE, [facility] [id number] Univers 09:15:00 09:15:00 FLORIDALMA ity o f [facility] 2020-06-01 2020-06-01 Refill Altheasipe, [facility] [id number] Univers 00:00:00 00:00:00 Floridalma C CLIENT SERVICES VICE PRESIDENT [id number] ity of [facility] [id number] Matt as MATERNAL [phone] Med ical & CHILD [address] [place] [address] 2020-05-30 2020-05-30 [facility] [id number] Univers 00:00:00 00:00:00 [facility] [id number] it y of [place] [id number] Matt as Professio [phone] Ca dical nal [address] [place] [address] Office [facility] 2020-05-27 2020-05-27 Outpatient R AKINSIPE, [facility] [id number] Univers 10:30:00 10:30:00 FLORIDALMA ity o f [facility] 2020-05-27 2020-05-27 Outpatient R AKINSIPE, [facility] [id number] Univers 10:30:00 10:30:00 FLORIDALMA ity o f [facility] 2020-05-10 2020-05-10 Urgent Provider, [facility] .[id number] Univers 11:18:40 11:38:40 Care [facility] [id number] ity of [place] [id number] Matt as Professio [phone] Ca dical nal [address] [place] Office [facility] 2020-05-10 2020-05-10 Outpatient R ANEFRANCOIS, [facility] [id number] Univers 11:20:00 11:20:00 CATALINA itnelli [facility] 2020-05-09 2020-05-09 [facility] [id number] Univers 00:00:00 00:00:00 Roshunda R CLIENT SERVICES VICE PRESIDENT [id number] ity of [facility] [id number] Matt as MATERNAL [phone] Med ical & CHILD [address] [place] [address] 2020-03-31 2020-03-31 Office [facility] [id number] Univers 09:26:23 10:13:41 Visit Floridalma C CLIENT SERVICES VICE PRESIDENT [id number] ity of [facility] [id number] Matt as MATERNAL [phone] [facility] ical & CHILD [address] [place] [address] 2020-03-31 2020-03-31 [facility] [id number] Univers 09:00:00 09:00:00 FLORIDALMA oh o f [facility] 2020-03-11 2020-03-11 Telephone [facility] 1.2.840.114 [id number] Univers 00:00:00 00:00:00 Floridalma C CLIENT SERVICES VICE PRESIDENT [id number] ity of [facility] [id number] Matt as MATERNAL [phone] Med ical & CHILD [address] [place] [address] 2020-03-10 2020-03-10 [facility] [id number] Univers 14:30:00 14:30:00 FLORIDALMA ity o f [facility] 2020-03-10 2020-03-10 Office [facility] [id number] Univers 10:09:10 11:09:52 Visit Floridalma C CLIENT SERVICES VICE PRESIDENT [id number] ity of [facility] [id number] Matt as MATERNAL [phone] Med ical & CHILD [address] [place] [address] 2020-03-07 2020-03-07 Telephone [facility] [id number] Univers 00:00:00 00:00:00 Roshunda R CLIENT SERVICES VICE PRESIDENT [id number] ity of [place] [id number] Matt as MATERNAL [phone] Med ical & CHILD 107 [facility] 2019-12-29 2019-12-[address] [facility] 1.2.840.114 [id number] Univers 13:01:04 11:33:02 Roshunda R CLIENT SERVICES VICE PRESIDENT [id number] ity of Visit [facility] [id number] Matt as MATERNAL [phone] [facility] ical & CHILD [address] [place] [address] 2019-12-30 2019-12-[address] [facility] 1.2.840.114 [id number] Univers 00:00:00 00:00:00 Secure Msg Unassigned, CLIENT SERVICES VICE PRESIDENT [id number] ity of [place] [facility] [id number] Matt as MATERNAL [phone] [facility] ical & CHILD [address] [place] [address] 2019-12-30 2019-12-[address] [facility] 1.2.840.114 [id number] Univers 00:00:00 00:00:00 Secure Msg Unassigned, CLIENT SERVICES VICE PRESIDENT [id number] ity of [place] [facility] [id number] Matt as MATERNAL [phone] [facility] ical & CHILD [address] [place] [address] 2019-12-29 2019-12-[address] [facility] 1.2.840.114 [id number] Univers 14:04:59 14:20:25 Visit Jacob R CLIENT SERVICES VICE PRESIDENT [id number] ity of [place] [id number] Matt as MATERNAL [phone] [facility] & CHILD [address] [place] [address] 2019-12-29 2019-12-29 Outpatient R FLOYD [facility] [id number] Univers 12:45:00 12:45:00 JACOB ity o f [facility] 2019-12-15 2019-12-[address] [facility] [id number] Univers 07:30:05 08:20:00 Fletcher [place] [id number] i ty of [place].2.[place] [phone] [facility] [address] [place] [address] 2019-12-14 2019-12-[address] [facility] 1.2.840.114 [id number] Univers 00:00:00 00:00:00 Secure Msg Ethel CLIENT SERVICES VICE PRESIDENT [id number] ity of [facility] [id number] Matt as MATERNAL [phone] [facility] & CHILD [address] [place] [address] 2019-11-30 2019-11-30 Outpatient R [facility] [id number] Univers 08:30:00 08:30:00 ity of [facility] 2019-11-27 2019-11-27 Outpatient R [facility] [id number] Univers 09:30:00 09:30:00 ity of [facility] 2019-11-26 2019-11-26 Outpatient R [facility] [id number] Univers 09:00:00 09:00:00 ity of [facility] 2019-11-26 2019-11-[address] [facility] [id number] Univers 00:00:00 00:00:00 Rosleobardoa R CLIENT SERVICES VICE PRESIDENT [id number] ity of [facility] [id number] Matt as MATERNAL [phone] [facility] CHILD [address] [place] [address] 2019-11-24 2019-11-24 [facility] [id number] Univers 09:30:00 09:30:00 FLORIDALMA renner f [facility] 2019-11-03 2019-11-03 Outpatient Raju_P MMG MMG [id number] [place] 05:13:00 05:13:00 [facility] 2019-10-27 2019-10-[address] [facility] 1.2.840.114 [id number] Univers 00:00:00 00:00:00 Secure Msg Missaela R CLIENT SERVICES VICE PRESIDENT [id number] ity of [facility] [id number] Matt as MATERNAL [phone] [facility] & CHILD [address] [place] [address] 2019-10-16 2019-10-16 Office [facility] [id number] Univers 10:45:40 11:26:43 Visit Floridalma C CLIENT SERVICES VICE PRESIDENT [id number] ity of [place] [id number] Matt as MATERNAL [phone] [facility] & CHILD [address] [place] [address] 2019-10-16 2019-10-16 [facility] [id number] Univers 10:45:00 10:45:00 FLORIDALMA itnelli o f [facility] 2019-10-07 2019-10-07 Office [facility] [id number] Univers 12:51:31 13:44:17 Visit Floridalma C CLIENT SERVICES VICE PRESIDENT [id number] ity of [facility] [id number] Matt as MATERNAL [phone] [facility] & CHILD [address] [place] [address] 2019-10-07 2019-10-07 Out[facility] [id number] Univers 13:00:00 13:00:00 FLORIDALMA adriano renner alvaro [facility] 2019-10-06 2019-10-06 [facility] 1.2.840.114 [id number] [facility] 00:00:00 00:00:00 Floridalma C CLIENT SERVICES VICE PRESIDENT [id number] ity of [facility] [id number] Matt as MATERNAL [phone] [facility] & CHILD [address] [place] [address] 2019-10-02 2019-10-02 Office [facility] 1.2.046.598 [id number] Univers 14:07:49 15:15:37 Visit Floridalma C CLIENT SERVICES VICE PRESIDENT [id number] ity of [place] [id number] Matt as MATERNAL [phone] [facility] & CHILD [address] [place] [address] 2019-08-25 2019-08-25 Office [facility] 1.2.204.862 [id number] Univers 09:57:53 13:09:26 Visit Floridalma C CLIENT SERVICES VICE PRESIDENT [id number] ity of [facility] [id number] Matt as MATERNAL [phone] [facility] & CHILD [address] [place] [address] 2019-08-25 2019-08-25 Orders Doctor BUTCHER 1.2.840.114 [id number] Univers 00:00:00 00:00:00 Only Unassigned, LEIGHA 350.1.13.10 ity of [place] [facility] 4.2.7.2.686 Matt as [phone] [address] 2019-08-25 2019-08-25 Letter [facility] 1.2.280.558 [id number] Univers 00:00:00 00:00:00 (Out) Floridalma Curry CLIENT SERVICES VICE PRESIDENT [id number] ity of [facility] [id number] Matt as MATERNAL [phone] Med ical & CHILD [address] [place] [address] 2019-03-05 2019-03-05 Emergency [facility] [id number] Univers 22:28:42 23:12:00 Alvin Castro 350.1.13.10 i ty of [place] [phone] [address] Results Test Description Test Time Test Comments Results Result Comments Source POCT TEST 2020-12-16 14:24:00 Test Item Value Reference Range Interpretation Comme nts POCT PREG (test code = 1605) Negative On board controls acceptable with C Line (test code = 3574) Yes POCT PREG LOT # (test code = 3575) [facility]test code = 3576[id number] 14:24:00 Test Item Value Reference Range Interpretation Comments POCT PREG (test code = 1605) Negative On board controls acceptable with C Yes Line (test code = 3574) POCT PREG LOT # (test code = 3575) POCT PREG TEST DATE (test code = 3576) [facility]
[2022-07-23 08:40] LABS: SARS-COV-2 RT PCR NEGATIVE (NEGATIVE)
--- NOTE | 2022-07-23 09:19 | RAD REPORT ---
EXAM DESCRIPTION: Eli Carrera And Papo (2 Views)07/23/2022 9:11 am CLINICAL HISTORY: Cough COMPARISON: 2020 FINDINGS: The lungs appear clear of acute infiltrate. The heart is normal size IMPRESSION: No acute abnormalities displayed
--- NOTE | 2022-07-23 09:39 | ER ---
Nurse's Notes [facility] Name: Maylin Zuniga Age: 22 yrs Sex: Female : 2000 Arrival Date: 07/23/2022 Time: 07:40 Bed 12 Private MD: Diagnosis: Acute upper respiratory infection, unspecified;Cough Presentation: 07/23 07:44 Chief complaint: Patient states: cough since yesterday, sore throat, chest tightness, iw no fever. Coronavirus screen: Client presents with at least one sign or symptom that may indicate coronavirus-19. Ebola Screen: Patient negative for fever greater than or equal to 101.5 degrees Fahrenheit, and additional compatible Ebola Virus Disease symptoms Patient denies exposure to infectious person. Patient denies travel to an Ebola-affected area in the 21 days before illness onset. No symptoms or risks identified at this time. Initial Sepsis Screen: Does the patient meet any 2 criteria? No. Patient's initial sepsis screen is negative. Does the patient have a suspected source of infection? No. Patient's initial sepsis screen is negative. Risk Assessment: Do you want to hurt yourself or someone else? Patient reports no desire to harm self or others. Onset of symptoms was July 22, 2022. 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 - Social history:: Smoking status: Patient denies any tobacco usage or history of. Screenin:17 Abuse screen: Denies threats or abuse. Denies injuries from another. Nutritional iw screening: No deficits noted. Tuberculosis screening: No symptoms or risk factors identified. Fall Risk No fall in past 12 months (0 pts). No secondary diagnosis (0 pts). No IV (0 pts). Ambulatory Aid- None/Bed Rest/Nurse Assist (0 pts). Gait- Normal/Bed Rest/Wheelchair (0 pts) Mental Status- Oriented to own ability (0 pts). Total Perdomo Fall Scale indicates No Risk (0-24 pts). Assessment: 08:16 General: Appears in no apparent distress. Behavior is calm, cooperative. Pain: iw Complains of pain in thorat, chest. Neuro: Level of Consciousness is awake, alert, obeys commands, Oriented to person, place, time, situation, Moves all extremities. Full function. Cardiovascular: Patient's skin is warm and dry. Respiratory: Reports cough that is Respiratory effort is even, unlabored, Respiratory pattern is regular, symmetrical. Derm: Skin is intact, is healthy with good turgor. Musculoskeletal: Range of motion: intact in all extremities. 09:00 Reassessment: pt transported to [facility]. iw 09:07 Reassessment: No changes from previously documented assessment. Patient and/or family ap3 updated on plan of care and expected duration. Pain level reassessed. Vital Signs: 07:44 BP 134 / 99; Pulse 98; Resp 16; Temp 97.9; Pulse Ox 96% on R/A; Weight 77.11 kg; Height iw 5 ft. 5 in. (165.10 cm); Pain 5/10; 07:44 Body Mass Index 28.29 (77.11 kg, 165.10 cm) iw ED Course: 07:40 Patient arrived in ED. mr 07:42 Darren Beatty DO is Attending Physician. ms3 07:46 Triage completed. iw 07:46 Arm band placed on. iw 07:57 Kayleen Gabriel, RN is Primary Nurse. iw 07:57 COVID-19/FLU A+B/RSV Sent. iw 09:13 Chest Pa And Lat (2 Views) XRAY In Process Unspecified. EDMS 09:37 Arnel Schultz DO is Referral Physician. ms3 Administered Medications: No medications were administered Medication: 08:17 VIS not applicable for this client. iw Outcome: 09:38 Discharge ordered by MD. ms3 09:56 Patient left the ED. iw Signatures: Dispatcher [employer] TIM GmaezCaren mr Kayleen Gabriel, RN RN iw Alisia Chaudhari RN RN ap3 Darren Beatty DO DO ms3
--- NOTE | 2022-07-23 09:40 | EDPHYS ---
Physician Documentation [facility] Name: Maylin Zuniga Age: 22 yrs Sex: Female : 2000 Arrival Date: 07/23/2022 Time: 07:40 Bed 12 Private MD: ED Physician Darren Beatty HPI: 07/23 07:51 This 22 yrs old Female presents to ER via Ambulatory with complaints of Cough, ms3 Chest Congestion, Sore Throat. 07:51 The patient or guardian reports cough, that is intermittent, described as moderate, ms3 with no sputum, flu symptoms. Onset: The symptoms/episode began/occurred yesterday. Severity of symptoms: At their worst the symptoms were moderate, in the emergency department the symptoms are unchanged. Modifying factors: The symptoms are alleviated by nothing, the symptoms are aggravated by nothing. Associated signs and symptoms: Pertinent positives: chest pain, sore throat, Pertinent negatives: diarrhea, fever, nausea, vomiting. 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 - Social history:: Smoking status: Patient denies any tobacco usage or history of. ROS: 07:51 Eyes: Negative for injury, pain, redness, and discharge, Back: Negative for injury and ms3 pain, MS/Extremity: Negative for injury and deformity, Skin: Negative for injury, rash, and discoloration. 07:51 Constitutional: Positive for body aches, chills. 07:51 ENT: Positive for nasal discharge, sore throat. 07:51 Cardiovascular: Positive for chest pain. 07:51 Respiratory: Positive for cough, Negative for dyspnea on exertion, shortness of breath. 07:51 All other systems are negative. Exam: 07:51 Constitutional: This is a well developed, well nourished patient who is awake, alert, ms3 and in no acute distress. Head/Face: Normocephalic, atraumatic. ENT: Nares patent. No nasal discharge, no septal abnormalities noted. Tympanic membranes are normal and external auditory canals are clear. Oropharynx with no redness, swelling, or masses, exudates, or evidence of obstruction, uvula midline. Mucous membranes moist. Neck: Trachea midline, no cervical lymphadenopathy. Supple, full range of motion without nuchal rigidity, or vertebral point tenderness. No Meningismus. Chest/axilla: Normal chest wall appearance and motion. Nontender with no deformity. Cardiovascular: Regular rate and rhythm with a normal S1 and S2. No gallops, murmurs, or rubs. Normal PMI, no JVD. No pulse deficits. Respiratory: Lungs have equal breath sounds bilaterally, clear to auscultation and percussion. No rales, rhonchi or wheezes noted. No increased work of breathing, no retractions or nasal flaring. Abdomen/GI: Soft, non-tender, with normal bowel sounds. No distension or tympany. No guarding or rebound. No evidence of tenderness throughout. Skin: Warm, dry with normal turgor. Normal color with no rashes, no lesions, and no evidence of cellulitis. MS/ Extremity: Pulses equal, no cyanosis. Neurovascular intact. Full, normal range of motion. Neuro: Awake and alert, GCS 15, oriented to person, place, time, and situation. Cranial nerves II-XII grossly intact. Motor strength 5/5 in all extremities. Sensory grossly intact. Cerebellar exam normal. Normal gait. Vital Signs: 07:44 BP 134 / 99; Pulse 98; Resp 16; Temp 97.9; Pulse Ox 96% on R/A; Weight 77.11 kg; Height iw 5 ft. 5 in. (165.10 cm); Pain 5/10; 07:44 Body Mass Index 28.29 (77.11 kg, 165.10 cm) iw MDM: 07:51 Patient medically screened. ms3 07:51 Differential Diagnosis: Bronchitis Influenza Upper Respiratory Infection Viral Syndrome ms3 Pneumonia. 08:46 ED course: RSV, Flu, COVID negative. Awaiting CXR. ms3 09:40 Data reviewed: vital signs, nurses notes, lab test result(s), radiologic studies, plain ms3 films, and as a result, I will discharge patient. Counseling: I had a detailed discussion with the patient and/or guardian regarding: the historical points, exam findings, and any diagnostic results supporting the discharge/admit diagnosis, lab results, radiology results, the need for outpatient follow up. ED course: Discussed labs and imaging with patient. Patient follow-up Dr. Schultz in 2 to 3 days. Patient given prescription for albuterol and prednisone. All questions were answered. Return precautions discussed include worsening symptoms, or any other concerns. On reevaluation patient is alert and oriented x4, in no apparent distress, nontoxic, speaking full sentences. 07/23 07:51 Order name: COVID-19/FLU A+B/RSV; Complete Time: 08:46 ms3 07/23 07:51 Order name: Chest Pa And Lat (2 Views) XRAY; Complete Time: 09:23 ms3 Administered Medications: No medications were administered Disposition Summary: 07/23/22 09:38 Discharge Ordered Location: Home ms3 Condition: Stable ms3 Diagnosis - Acute upper respiratory infection, unspecified ms3 - Cough ms3 Followup: ms3 - With: Arnel Schultz DO - When: 2 - 3 days - Reason: Recheck today's complaints Discharge Instructions: - Discharge Summary Sheet ms3 - Cough, Adult ms3 Forms: - Medication Reconciliation Form ms3 - Work release form iw - Thank You Letter ms3 - Antibiotic Education ms3 - Prescription Opioid Use ms3 Prescriptions: - albuterol sulfate 90 mcg/actuation Inhalation HFA aerosol inhaler - inhale 2 puff by INHALATION route every 4 hours; 1 Inhaler; Refills: 0, Product ms3 Selection Permitted - Prednisone 20 mg Oral Tablet - take 2 tablets by ORAL route once daily for 5 days; 10 tablet; Refills: 0, ms3 Product Selection Permitted Signatures: Dispatcher [employer] Kayleen Roa RN RN Darren Fregoso DO DO ms3
[2022-07-23 10:08] VITALS: BP 134/99; TEMP 97.9; O2SAT 96
== END 2022-07-23 09:56 | disposition home or self-care (01) ==
LOC: ER 07:37
DX: J06.9 Acute upper respiratory infection, unspecified (principal); Z20.822 Contact with and (suspected) exposure to COVID-19
CPT/HCPCS: 0241U; 71046; 99283

== ENCOUNTER 2022-09-26 09:32 | Emergency (ER) | payer OTHER ==
--- OUTSIDE RECORDS SUMMARY | 2022-09-26 09:37 | XMS REPORT | Continuity of Care Document ---
:2000 Author Organization [facility] Address [address] Herrera [address] [place] [id number] Care Team Providers Name Role Phone Jacob Joseph Primary Care Physician [phone] FLORIDALMA CASTELLANOS Attending Clinician Unavailable Carla Franklin CNM Attending Clinician CARLA FRANKLIN Attending Clinician Unavailable Provider, Pedro Temp Attending Clinician Unavailable ROSALES CHAPIN Attending Clinician Unavailable ROSALES CHAPIN Attending Clinician Unavailable ROSALES KIMBALL Attending Clinician Unavailable UNKNOWN, ATTENDING Attending Clinician Unavailable Jacob Joseph Attending Clinician JACOB BARRIENTOS Attending Clinician Unavailable Visit, [facility] Nurse Attending Clinician Unavailable Doctor Unassigned, [place] Attending Clinician Unavailable ALIVIA ERNANDEZ Attending Clinician Unavailable Alivia Swanson Attending Clinician CINDY APARICIO Attending Clinician Unavailable Robert WISE, Rayne Godoy Attending Clinician Unavailable NI ALVAREZ Attending Clinician Unavailable Floridalma Diane Attending Clinician [phone] Joel Matt DO Attending Clinician Catalina Lara Attending Clinician Provider, [facility] Attending Clinician Unavailable CATALINA HATFIELD Attending Clinician Unavailable Fletcher Ramesh MD Attending Clinician Frank WISE, Ethel Attending Clinician Unavailable Radha_Alfredo Attending Clinician Unavailable Alvin Nobles Attending Clinician Radha_P Admitting Clinician Unavailable Payers Payer Name Policy Type Policy Number Effective Date Expiration Date S brenton [facility] [id number] 2020 CHOICE [place] STAR 00:00:00 [facility] [id number] 2019 00:00:00 [place] [id number] 2019 00:00:00 Problems Condition Condition Condition Status Onset Resolution Last Treating Co mments Source Name Details Category Date Date Treatment Clinician Date Chlamydia Chlamydia Disease Active Uni vers trachomati trachomati 2-13 it y of s s 00:00: [place] infection infection 00 Medi danni of lower of lower Branch genitourin genitourin jeremy sites jeremy sites Need for Need for Disease Active Unive rs prophylact prophylact 3-24 it y of ic ic 00:00: [place] vaccinatio vaccinatio 00 Me dical n and n and Branch inoculatio inoculatio n against n against influenza influenza Feeling Feeling Disease Active Univers sad sad 5-21 ity of 00:00: [place] [facility] Encounter Encounter Disease Active Uni vers for other for other 5-07 ity of general general 00:00: [place] counseling counseling 00 Me dical or advice or advice Bran ch on on contracept contracept ion ion Absence of Absence of Disease Active U nivers menstruati menstruati 3-24 it y of on on 00:00: [place] 00 Medical Branch Breast Breast Disease Active Univers tenderness tenderness 3-24 it y of in female in female 00:00: [facility] s 00 Medical Branch Class 1 Class [...] 3-24 it y of adult adult 00:00: [place] [facility] Branch Elevated Elevated Disease Active Unive rs blood blood 2-21 ity of pressure pressure 00:00: [place] reading reading 00 Medical without without Branch diagnosis diagnosis of of hypertensi hypertensi on on Other Other Disease Active Univers depression depression -09 it y of 00:00: [place] [facility] Branch Nexplanon Nexplanon Disease Active Uni vers removal removal - ity of 00:00: [address] Screening Screening Disease Active Uni vers examinatio examinatio 09 it y of n for STD n for STD 00:00: Rudy s (sexually (sexually 00 [facility] danni transmitte transmitte Br anch d disease) d disease) BMI BMI Disease Active 2018-08 Univers 27.0-27.9, 27.0-27.9, 0-16 it y of adult adult 00:00: [place] [facility] Branch BMI BMI Disease Active 2018-08 Univers 29.0-29.9, 29.0-29.9, 0-16 it y of adult adult 00:00: [place] [facility] Branch HPV HPV Disease Active 2018-08 Univers vaccine vaccine 0-16 ity of counseling counseling 00:00: [facility] Overweight Overweight Disease Active 2018-08 U nivers 0-16 ity of 00:00: [place] [facility] Lump or Lump or Disease Active Univers mass in mass in 4-13 ity of breast breast 00:00: [place] [facility] Branch Nexplanon Nexplanon Disease Resolve 2019-08-20 2019-08-20 Univers insertion insertion d 4-13 00:00:00 15:53:54 ity of 00:00: [place] [facility] Allergies, Adverse Reactions, Alerts Allergy Allergy Status Severity Reaction(s) Onset Inactive Treating Comm ents Source Name Type Date Date Clinician NO KNOWN Drug Active Univers ALLERGIE Class ity of S [facility] Social History Social Habit Start Date Stop Date Quantity Comments Source History SDOH University o f Alcohol Frequency [place] [facility] ed[facility] History SDOH University o f Alcohol Std [place] Medical Drinks Branch History SDOH University o f Alcohol Binge [place] [facility] al Branch Exposure to 2022-09-11 2022-09-21 Not sure [place] [facility]-CoV-2 00:00:00 09:44:00 [place] [facility] (event) Branch Alcohol intake 2022-09-21 2022-09-21 Current drinker Unive rsity of 00:00:00 00:00:00 of alcohol [place] [facility] (finding) Branch Alcohol Comment 2021-11-02 2021-11-02 social Universit y of 00:00:00 00:00:00 [facility] Tobacco use and 2014-11-22 2014-11-22 Smokeless tobacco Un iversity of exposure 00:00:00 00:00:00 non-user [facility] Sex Assigned At [birth year] Universit y of 00:00:00 00:00:00 [facility] Smoking Status Start Date Stop Date Source Never smoked tobacco [facility] [place] Medications Ordered Filled Start Stop Current Ordering Indication Dosage Frequency Signature Comments Components Source Medication Medication Date Date Medication? Clinician (SIG) Name Name doxycycline 2022- Yes [id number] 100mg Take 1 Univers hyclate 100 2-13 10-02 capsule by i ty of mg capsule 00:00: 05:59 mouth [place] 00 :00 every 12 Medical (twelve) Branch hours for 7 days. norelgestro Yes [id number] 1{patch Apply 1 Univers min-ethinyl 2-10 } Patch to ity of estradiol 00:00: skin [place] 150-35 00 weekly. Medical mcg/24 hr Branch patch norelgestro Yes [id number] 1{patch Apply 1 Univers min-ethinyl 2-10 } Patch to ity of estradiol 00:00: skin [place] 150-35 00 weekly. Medical mcg/24 hr Branch patch norelgestro Yes [id number] 1{patch Apply 1 Univers min-ethinyl 2-10 } Patch to ity of estradiol 00:00: skin [place] 150-35 00 weekly. Medical mcg/24 hr Branch patch norelgestro Yes [id number] 1{patch Apply 1 Univers min-ethinyl 2-10 } Patch to ity of estradiol 00:00: skin [place] 150-35 00 weekly. Medical mcg/24 hr Branch patch norgestimat Yes [id number] 1{tbl} Take 1 Univers e-ethinyl 7-07 tablet by ity o f estradioL 00:00: mouth [place] 0.18/0.215/ 00 daily. Medica l 0.25 mg-25 Branch mcg tablet norgestimat 2022- No [id number] 1{tbl} Take 1 Univers e-ethinyl 7-07 02-10 tablet by ity of estradioL 00:00: 00:00 mouth [place] 0.18/0.215/ 00 :00 daily. Medica l 0.25 mg-25 Branch mcg tablet norgestimat 2022- No [id number] 1{tbl} Take 1 Univers e-ethinyl 7-07 02-10 tablet by ity of estradioL 00:00: 00:00 mouth [place] 0.18/0.215/ 00 :00 daily. Medica l 0.25 mg-25 Branch mcg tablet norgestimat 2021- No [id number] 1{tbl} Take 1 Univers e-ethinyl 4-07 07-07 tablet by ity of estradioL 00:00: 00:00 mouth [place] 0.18/0.215/ 00 :00 daily. Medica l 0.25 mg-25 Branch mcg tablet benzonatate Yes [id number] 100mg Take 1 Univers 100 mg 3-07 capsule by ity of capsule 00:00: mouth 3 [place] 00 (three) Medical times Branch daily as needed for Cough. albuterol Yes [id number] 6{puff} Inhale 6 Univers 90 3-07 Puffs ity of mcg/actuati 00:00: every 4 Matt as on inhaler 00 (four) Medical hours as Branch needed for Wheezing or Shortness of Breath. albuterol Yes [id number] 6{puff} Inhale 6 Univers 90 3-07 Puffs ity of mcg/actuati 00:00: every 4 Matt as on inhaler 00 (four) Medical hours as Branch needed for Wheezing or Shortness of Breath. albuterol Yes [id number] 6{puff} Inhale 6 Univers 90 3-07 Puffs ity of mcg/actuati 00:00: every 4 Matt as on inhaler 00 (four) Medical hours as Branch needed for Wheezing or Shortness of Breath. albuterol Yes [id number] 6{puff} Inhale 6 Univers 90 3-07 Puffs ity of mcg/actuati 00:00: every 4 Matt as on inhaler 00 (four) Medical hours as Branch needed for Wheezing or Shortness of Breath. albuterol Yes [id number] 6{puff} Inhale 6 Univers 90 3-07 Puffs ity of mcg/actuati 00:00: every 4 Matt as on inhaler 00 (four) Medical hours as Branch needed for Wheezing or Shortness of Breath. benzonatate 2022- No [id number] 100mg Take 1 Univers 100 mg 10-16-10 capsule by ity of capsule 00:00: 00:00 mouth 3 00 :00 (three) Medical times Branch daily as needed for Cough. benzonatate 2022- No [id number] 100mg Take 1 Univers 100 mg 10-16-10 capsule by ity of capsule 00:00: 00:00 mouth 3 [place] 00 :00 (three) Medical times Branch daily as needed for Cough. etonogestre No Nexplanon 68mg Univers L 12-16-07 insertion ity of (NEXPLANON) 15:45: 14:44 [place] implant 68 00 :00 Medical mg Branch etonogestre 2020- No [id number] 68mg 68 mg, Univers L 12-16-07 Subdermal, ity of (NEXPLANON) 15:45: 14:44 ONCE NOW, [place] implant 68 00 :00 1 dose, Medica l mg Sat12/16/20 Branch at 1045, Routine
Use approved by: EDITORIAL CLERK etonogestre 2020- No Nexplanon 68mg Univers L 12-16-07 insertion ity of (NEXPLANON) 15:45: 14:44 [place] implant 68 00 :00 Medical mg Branch etonogestre 2020- No [id number] 68mg 68 mg, Univers L 12-16 05-07 Subdermal, ity of (NEXPLANON) 15:45: 14:44 ONCE NOW, [place] implant 68 00 :00 1 dose, Medica l mg Sat12/16/20 Branch at 1045, Routine
Use approved by: EDITORIAL CLERK Immunizations Ordered Immunization Filled Immunization Date Status Commen ts Source Name Name Influenza Virus 2021-11-02 Completed Universit y of Vaccine Quad .5 mL 00:00:00 [place] [facility] IM 6+ MO Branch Influenza Virus 2021-11-02 Completed Universit y of Vaccine Quad .5 mL 00:00:00 [place] [facility] IM 6+ MO Branch Influenza Virus 2021-11-02 Completed Universit y of Vaccine Quad .5 mL 00:00:00 [place] [facility] IM 6+ MO Branch Influenza Virus 2021-11-02 Completed Universit y of Vaccine Quad .5 mL 00:00:00 [place] [facility] IM 6+ MO Branch Influenza Virus 2021-11-02 Completed Universit y of Vaccine Quad .5 mL 00:00:00 [facility] 6+ MO Branch SARS-COV-2 COVID-19 2021-03-27 Completed Unive rsity of PFIZER VACCINE 00:00:00 [facility] SARS-COV-2 COVID-19 2021-03-27 Completed Unive rsity of PFIZER VACCINE 00:00:00 [facility] SARS-COV-2 COVID-19 2021-03-27 Completed Unive rsity of PFIZER VACCINE 00:00:00 [facility] SARS-COV-2 COVID-19 2021-03-27 Completed Unive rsity of PFIZER VACCINE 00:00:00 [facility] SARS-COV-2 COVID-19 2021-03-27 Completed Unive rsity of PFIZER VACCINE 00:00:00 [facility] SARS-COV-2 COVID-19 2021-03-06 Completed Unive rsity of PFIZER VACCINE 00:00:00 [facility] SARS-COV-2 COVID-19 2021-03-06 Completed Unive rsity of PFIZER VACCINE 00:00:00 [facility] SARS-COV-2 COVID-19 2021-03-06 Completed Unive rsity of PFIZER VACCINE 00:00:00 [facility] SARS-COV-2 COVID-19 2021-03-06 Completed Unive rsity of PFIZER VACCINE 00:00:00 [facility] SARS-COV-2 COVID-19 2021-03-06 Completed Unive rsity of PFIZER VACCINE 00:00:00 [facility] HPV9 2019-08-25 Completed University of 00:00:00 [facility] Branch HPV9 2019-08-25 Completed University of 00:00:00 [place] [facility] HPV9 2019-08-25 Completed University of 00:00:00 [place] [facility] HPV9 2019-08-25 Completed University of 00:00:00 [place] [facility] HPV9 2019-08-25 Completed University of 00:00:00 [place] [facility] HPV9 2019-08-25 Completed University of 00:00:00 [place] [facility] HPV9 2019-08-25 Completed University of 00:00:00 [place] [facility] HPV9 2019-05-27 Completed University of 00:00:00 [place] [facility] HPV9 2019-05-27 Completed University of 00:00:00 [place] [facility] HPV9 2019-05-27 Completed University of 00:00:00 [place] [facility] HPV9 2019-05-27 Completed University of 00:00:00 [place] [facility] HPV9 2019-05-27 Completed University of 00:00:00 [facility] Branch HPV9 2019-05-27 Completed University of 00:00:00 [facility] Branch HPV9 2019-05-27 Completed University of 00:00:00 [facility] TDAP (ADACEL) 2014-06-24 Completed University of VACCINE 00:00:00 [facility] Meningococcal 2014-06-24 Completed University of Vaccine 00:00:00 [facility] Branch TDAP (ADACEL) 2014-06-24 Completed University of VACCINE 00:00:00 [facility] Meningococcal 2014-06-24 Completed University of Vaccine 00:00:00 [facility] TDAP (ADACEL) 2014-06-24 Completed University of VACCINE 00:00:00 [facility] Branch Meningococcal 2014-06-24 Completed University of Vaccine 00:00:00 [facility] Branch TDAP (ADACEL) 2014-06-24 Completed University of VACCINE 00:00:00 [facility] Branch Meningococcal 2014-06-24 Completed University of Vaccine 00:00:00 [facility] Branch TDAP (ADACEL) 2014-06-24 Completed University of VACCINE 00:00:00 [facility] Branch Meningococcal 2014-06-24 Completed University of Vaccine 00:00:00 [facility] Branch TDAP (ADACEL) 2014-06-24 Completed University of VACCINE 00:00:00 [facility] Branch Meningococcal 2014-06-24 Completed University of Vaccine 00:00:00 [facility] TDAP (ADACEL) 2014-06-24 Completed University of VACCINE 00:00:00 [facility] Meningococcal 2014-06-24 Completed University of Vaccine 00:00:00 [facility] TDAP (ADACEL) 2013-03-12 Completed University of VACCINE 00:00:00 [facility] TDAP (ADACEL) 2013-03-12 Completed University of VACCINE 00:00:00 [facility] TDAP (ADACEL) 2013-03-12 Completed University of VACCINE 00:00:00 [facility] TDAP (ADACEL) 2013-03-12 Completed University of VACCINE 00:00:00 [facility] TDAP (ADACEL) 2013-03-12 Completed University of VACCINE 00:00:00 [facility] TDAP (ADACEL) 2013-03-12 Completed University of VACCINE 00:00:00 [facility] TDAP (ADACEL) 2013-03-12 Completed University of VACCINE 00:00:00 [facility] Vital Signs Vital Name Observation Time Observation Value Comments Source Systolic blood 2022-09-21 15:50:00 132 mm[Hg] Univer sity of pressure [facility] Diastolic blood 2022-09-21 15:50:00 73 mm[Hg] Unive rsity of [facility] Heart rate 2022-09-21 15:45:00 73 /min [facility] Body temperature 2022-09-21 15:45:00 36.72 [facility] Respiratory rate 2022-09-21 15:45:00 [facility] height 2022-09-21 15:45:00 165.1 cm [facility] Body weight 2022-09-21 15:45:00 76.068 kg [facility] BMI 2022-09-21 15:45:00 27.91 kg/m2 [facility] Systolic blood 2022-02-15 13:51:00 127 mm[Hg] Univer sity of pressure [facility] Diastolic blood 2022-02-15 13:51:00 88 mm[Hg] Unive rsity of pressure [facility] Heart rate 2022-02-15 13:51:00 71 /min [facility] Body temperature 2022-02-15 13:51:00 36.11 [place] Univ ersity of [place] [facility] Respiratory rate 2022-02-15 13:51:00 16 /min Univ ersity of [place] [facility] Body height 2022-02-15 13:51:00 165.1 cm Universi ty of [place] [facility] Body weight 2022-02-15 13:51:00 89.313 kg Universi ty of [place] [facility] BMI 2022-02-15 13:51:00 32.77 kg/m2 Universi ty of [place] [facility] Systolic blood 2020-12-16 14:02:00 133 mm[Hg] Univer sity of pressure [place] [facility] Diastolic blood 2020-12-16 14:02:00 85 mm[Hg] Unive rsity of pressure [place] [facility] Heart rate 2020-12-16 14:02:00 89 /min Universi ty of [place] [facility] Body temperature 2020-12-16 14:02:00 36.56 [place] Univ ersity of [place] [facility] Respiratory rate 2020-12-16 14:02:00 16 /min Univ ersity of [place] [facility] Body height 2020-12-16 14:02:00 165.1 cm Universi ty of [place] [facility] Body weight 2020-12-16 14:02:00 89.444 kg Universi ty of [place] [facility] BMI 2020-12-16 14:02:00 32.81 kg/m2 Universi ty of [place] [facility] Systolic blood 2020-12-16 14:02:00 133 mm[Hg] Univer sity of pressure [place] [facility] Diastolic blood 2020-12-16 14:02:00 85 mm[Hg] Unive rsity of pressure [place] [facility] Heart rate 2020-12-16 14:02:00 89 /min Universi ty of [place] [facility] Body temperature 2020-12-16 14:02:00 36.56 [place] Univ ersity of [place] [facility] Respiratory rate 2020-12-16 14:02:00 16 /min Univ ersity of [place] [facility] Body height 2020-12-16 14:02:00 165.1 cm Universi ty of [place] [facility] Body weight 2020-12-16 14:02:00 89.444 kg Universi ty of [place] [facility] BMI 2020-12-16 14:02:00 32.81 kg/m2 Universi ty of [place] [facility] Procedures Procedure Date / Time Performed Performing Clinician Sour e POCT TEST 2022-09-21 00:00:00 Carla Franklin Univ ersity [facility] POCT TEST 2020-12-16 14:24:00 [facility] Planned Activity Planned Date Details Comments Source Future Scheduled 2024-06-24 DTaP,Tdap,and Td Univers ity of Test 00:00:00 Vaccines (3 - Td) [facility] [code = Branch DTaP,Tdap,and Td Vaccines (3 - Td)] Future Scheduled 2024-06-24 DTaP,Tdap,and Td Univers ity of Test 00:00:00 Vaccines (3 - Td) [facility] [code = Branch DTaP,Tdap,and Td Vaccines (3 [...] Screening for University of Test 00:00:00 Chlamydia [facility] trachomatis Branch (procedure) [code = 837618528] Future Scheduled 2021-11-02 Depression screening Uni versity of Test 00:00:00 (procedure) [code = [facility] dical [id number]] Branch Future Scheduled 2021-11-02 MENINGOCOCCAL B Postponed [...] ity of Test 00:00:00 (procedure) [code = [facility] dical [id number]] Branch Future Scheduled 2021-11-02 Screening for University of Test 00:00:00 Chlamydia [place] [facility] trachomatis Branch (procedure) [code = 966427401] Future Scheduled 2021-11-02 Depression screening Uni versity of Test 00:00:00 (procedure) [code = [facility] dical [id number]] Branch Future Scheduled 2021-11-02 MENINGOCOCCAL B Postponed from Univer sity of Test 00:00:00 VACCINES (1 of 2 - 2011 [place] Med ical Risk Bexsero 2-dose (Refused) Branch [...] ity of Test 00:00:00 (procedure) [code = [facility] dical [id number]] Branch Future Scheduled 2021-04-12 INFLUENZA VACCINE Univer [...] Universit y of Test 00:00:00 screening 2019 [facility] (procedure) [code = (Alternative Branch [id number]] Guidelines) Future Scheduled 2020-12-17 Hepatitis C Postponed from Universit y of Test 00:00:00 screening 2019 [facility] (procedure) [code = (Alternative Branch [id number]] Guidelines) Encounters Start End Encounter Admission Attending Care Care Encounter Source Date/Time Date/Time Type Type Clinicians Facility Department ID 2021-06-08 Emergency [facility] [id number] Univers 19:53:15 ity of [facility] 2022-12-20 2022-12-20 Outpatient R EMANUEL [facility] [id number] Univers 09:30:00 09:30:00 FLORIDALMA oh o f [facility] 2022-09-24 2022-09-24 [facility] [id number] Univers 00:00:00 00:00:00 Management Carla Lang EDITORIAL CLERK [id number] ity [facility] [id number] Matt as MATERNAL [id number] Med ical & CHILD [address] [place] [address] 2022-09-21 2022-09-21 Outpatient R NOEMI [facility] [id number] Univers 09:30:00 10:18:05 CARLA ity of [facility] 2022-09-21 2022-09-21 Office [facility] [id number] Univers 09:30:00 10:18:05 Visit Carla Franklin EDITORIAL CLERK [id number] ity [facility] [id number] Matt as MATERNAL [id number] Med ical & CHILD [address] [place] [address] 2022-09-21 2022-09-21 Letter [facility] [id number] Univers 00:00:00 00:00:00 (Out) Carla Lang EDITORIAL CLERK [id number] i ty of [facility] [id number] [place] as MATERNAL [id number] [address] 2022-09-07 2022-09-07 Outpatient R ROSALES CHAPIN [facility] [id number] Univers 08:30:00 08:30:00 [facility] 2022 Outpatient R HENOK [facility] [id number] Univers 13:40:00 13:40:00 ATTENDING ity [facility] 2022-02-15 2022-02-15 [facility] [id number] Univers 09:00:00 09:18:29 Visit Maryndmounika R EDITORIAL CLERK [id number] ity [place] [id number] Matt as MATERNAL [id number] [address] 2022-02-15 2022-02-15 Outpatient R FLOYD [facility] [id number] Univers 09:00:00 09:18:29 ROSNDA ity o [facility] 2022-02-15 2022-02-15 Outpatient R FLOYD [facility] [id number] Univers 09:00:00 09:00:00 ROSNDA ity o f [facility] 2022-02-15 2022-02-15 [facility] [id number] Univers 09:00:00 09:00:00 ROSNDA ity o f [facility] 2022-01-12 2022-01-12 Telephone [facility] [id number] Univers 00:00:00 00:00:00 [facility] EDITORIAL CLERK [id number]y [id number] Matt as MATERNAL [id number] [address] 2022-01-11 2022-01-11 Office [facility] [id number] Univers 15:15:00 16:08:32 Visit Marynda R EDITORIAL CLERK [id number] ity of REGIONAL [id number] Matt as MATERNAL [id number] Med ical & CHILD [address] [place] [address] 2022-01-11 2022-01-11 Outpatient R FLOYD [facility] [id number] Univers 15:15:00 16:08:32 JACOB oh o f [facility] 2022-01-11 2022-01-11 Outpatient R BARRIENTOS, [facility] [id number] Univers 15:15:00 15:15:00 JACOB ity o f [facility] 2021-11-16 2021-11-16 Outpatient R [facility] [id number] Univers 10:30:00 10:30:00 ity of [facility] 2021-11-16 2021-11-16 Outpatient R FLOYD [facility] [id number] Univers 08:00:00 08:20:47 SHEILACARLOS renner alvaro [facility] 2021-11-16 2021-11-16 Nurse Visit, [facility] Nurse [facility] [id number] Univers 08:00:00 08:20:47 Visit Jacob Barrientos EDITORIAL CLERK [id number] ity of [facility] [id number] Matt as MATERNAL [id number] [facility] & CHILD [address] [place] [address] 2021-11-03 2021-11-03 Telephone Floyd [facility] [id number] Univers 00:00:00 00:00:00 Jacob Love EDITORIAL CLERK [id number] ity of [facility] [id number] Matt as MATERNAL [id number] [facility] ical & CHILD [address] [place] [address] 2021-11-02 2021-11-02 Office Floyd [facility] 1.2.840.114 [id number] Univers 10:30:00 11:58:09 Visit Jacob Love EDITORIAL CLERK 350.1.13.10 ity of [facility] 4.2.7.2.686 Matt as MATERNAL [phone] Med ical & CHILD [address] [place] [address] 2021-11-02 2021-11-02 Outpatient R FLOYD [facility] [id number] Univers 10:30:00 11:58:09 JACOB oh o alvaro [facility] 2021-11-02 2021-11-02 Outpatient R FLOYD [facility] [id number] Univers 10:30:00 11:58:09 JACOB oh o alvaro [facility] 2021-11-02 2021-11-02 Outpatient R [facility]LOYD [facility] [id number] Univers 10:30:00 10:30:00 JACOB oh o alvaro [facility] 2021-11-02 2021-11-02 Outpatient R [facility]LOYD [facility] [id number] Univers 10:30:00 10:30:00 JACOB oh o alvaro [facility] 2021-11-02 2021-11-02 Orders Doctor HADLEY 1.2.840.114 [id number] Univers 00:00:00 00:00:00 Only Unassigned, LEIGHA 350.1.13.10 ity of [facility] 4.2.7.2.686 Matt as [phone] [facility] [address] 2021-10-16 2021-10-16 Emergency [facility] [id number] Univers 19:47:00 20:32:00 ALIVIA ity [facility] 2021-10-16 2021-10-16 [facility] 1.2.840.114 [id number] Univers 19:47:00 20:32:00 Alivia Liriano [place] 350.1.13.10 ity [facility] 4.2.7.2.686 [place] [facility] [phone] [facility] [address] 2021-08-01 2021-08-01 Outpatient R [facility] [id number] Univers 08:30:00 09:21:32 JACOB oh o [facility] 2021-08-01 2021-08-01 Office [facility] 1.2.840.114 [id number] Univers 08:30:00 09:21:32 Visit Jacob Love EDITORIAL CLERK 350.1.13.10 ity of [facility] 4.2.7.2.686 Matt as MATERNAL [phone] [facility] ical & CHILD [address] [facility] [place] [place] 2021-08-01 2021-08-01 Orders Doctor BUTCHER 1.2.840.114 [id number] Univers 00:00:00 00:00:00 Only Unassigned, LEIGHA 350.1.13.10 ity of [place] [facility] 4.2.7.2.686 Matt as [phone] [address] 2021-07-31 2021-07-31 Telephone [facility] 1.2.817.051 [id number] Univers 00:00:00 00:00:00 Jacob R EDITORIAL CLERK 350.1.13.10 ity of [facility] 4.2.7.2.686 Matt as MATERNAL [phone] [facility] ica & CHILD [address] [place] [address] 2021-06-13 2021-06-13 Outpatient R MAURY [facility] [id number] Univers 10:30:00 10:58:17 CINDY ity [facility] 2021-06-13 2021-06-13 Office [facility] 1.2.840.114 [id number] Univers 10:01:19 10:58:17 Visit Cindy EDITORIAL CLERK 350.1.13.10 ity of [facility] 42.7.2.686 Matt as MATERNAL [phone] [facility] ical & CHILD 111 [facility] 2021-06-13 2021-06-13 Outpatient R MAURY [facility] [id number] Univers 10:30:00 10:30:00 CINDY ity [facility] 2021-06-06 2021-06-06 Telephone [facility] 1.2.811.231 [id number] Univers 00:00:00 00:00:00 Jacob R EDITORIAL CLERK 350.1.13.10 ity of [facility] 42.7.2.686 Matt as MATERNAL [phone] [facility] ical & CHILD [address] [facility] [place] [place] 2021-04-10 2021-04-10 Outpatient R EMANUEL [facility] [id number] Univers 10:00:00 10:00:00 FLORIDALMA oh o f [facility] 2021-03-31 2021-03-31 Letter RobertHADLEY moss 1.2.840.114 [id number] Univers 00:00:00 00:00:00 (Out) Rayne Godoy LEIGHA 350.1.13.10 it y [facility] 4.2.7.2.686 Matt as [phone] [address] 2021-03-30 2021-03-30 Outpatient R ANTONIO [facility] [id number] Univers 12:30:00 12:30:00 NI oh [facility] 2020-12-30 2020-12-30 Office [facility] 1.2.840.114 [id number] Univers 09:29:12 10:10:09 Visit Jacob Love EDITORIAL CLERK 350.1.13.10 ity [facility] 4.2.7.2.686 Matt as MATERNAL [phone] [facility] ical & CHILD [address] [place] [address] 2020-12-30 2020-12-30 Office Floyd [facility] 1.2.840.114 [id number] 09:29:12 10:10:09 Visit Jacob Love EDITORIAL CLERK 350.1.13.10 [facility] 4.2.7.2.686 MATERNAL [phone] & [address] 2020-12-30 2020-12-30 Outpatient R EMANUEL [facility] [id number] Univers 09:30:00 09:30:00 FLORIDALMA renner [facility] 2020-12-30 2020-12-30 Outpatient R FLOYD [facility] [id number] Univers 08:45:00 08:45:00 JACOB oh o [facility] 2020-12-16 2020-12-16 Office [facility] 1.2.500.231 [id number] Univers 08:57:28 09:27:28 Visit Floridalma Curry EDITORIAL CLERK 350.1.13.10 ity [facility] 4.2.7.2.686 Matt as MATERNAL [phone] [facility] ical & CHILD [address] [place] [address] 2020-12-16 2020-12-16 Outpatient R EMANUEL [facility] [id number] Univers 09:00:00 09:00:00 FLORIDALMA renner f [facility] 2020-12-16 2020-12-16 Orders Doctor HADLEY 1.2.840.114 [id number] Univers 00:00:00 00:00:00 Only Unassigned, LEIGHA 350.1.13.10 ity of [place] [address].7.2.686 Matt as [phone] [address] 2020-12-02 2020-12-02 Telephone [facility] 1.2.840.114 [id number] Univers 00:00:00 00:00:00 Floridalma Curry EDITORIAL CLERK 350.1.13.10 ity of [place] [address].7.2.686 Matt as MATERNAL [phone] [facility] ical & CHILD [address] [place] [address] 2020-11-29 2020-11-29 Nurse Visit, [facility] Nurse [facility] 1.2 .840.114 [id number] Univers 15:31:01 15:46:01 Visit Jacob Barrientos EDITORIAL CLERK 350.1.13.10 ity of [place] [address]..2.686 Matt as MATERNAL [phone] [facility] ica & CHILD [address] [place] [address] 2020-11-29 2020-11-29 Outpatient R FLOYD [facility] [id number] Univers 15:30:00 15:30:00 JACOB liriano [facility] 2020-11-29 2020-11-29 Telephone [facility] 1.2.549.928 [id number] Univers 00:00:00 00:00:00 Jacob Love EDITORIAL CLERK 350.1.13.10 ity of [place] [address]..2.686 Matt as MATERNAL [phone] Med ical & CHILD [address] [place] [address] 2020-11-02 2020-11-02 Office Floyd [facility] 1.2.840.114 [id number] Univers 10:16:29 11:05:27 Visit Jacob Love EDITORIAL CLERK 350.1.13.10 ity of [facility] 4.2.7.2.686 Matt as MATERNAL [phone] [facility] ical & CHILD [address] [place] [address] 2020-11-02 2020-11-02 Outpatient Ivan BARRIENTOS [facility] [id number] Univers 10:15:00 10:15:00 MARYCARLOS hannonnelli renner [facility] 2020-11-02 2020-11-02 Orders Doctor BUTCHER 1.2.840.114 [id number] Univers 00:00:00 00:00:00 Only Unassigned, LEIGHA 350.1.13.10 ity of [place] [facility] 4.2.7.2.686 Matt as [phone] [address] 2020-11-01 2020-11-01 Outpatient Ivan BARRIENTOS [facility] [id number] Univers 15:00:00 15:00:00 MARYCARLOS liriano [facility] 2020-11-01 2020-11-01 Patient Shaka [facility] 1.2.840.114 [id number] Univers 00:00:00 00:00:00 Outreach [facility] 350.1.13.10 i ty of [facility] 4.2.7.2.686 [place] [phone] [address] 2020-07-04 2020-07-04 Danna [facility] 1.2.399.186 [id number] Univers 00:00:00 00:00:00 Floridalma Curry EDITORIAL CLERK 350.1.13.10 ity of [facility] 4.2.7.2.686 Matt as MATERNAL [id number] [facility] ical & CHILD [address] [place] [address] 2020-06-13 2020-06-13 Outpatient Ivan CASTELLANOS [facility] [id number] Univers 09:15:00 09:15:00 FLORIDALMA liriano [facility] 2020-06-13 2020-06-13 Outpatient R EMANUEL [facility] [id number] Univers 09:15:00 09:15:00 FLORIDALMA liriano [facility] 2020-06-01 2020-06-01 Refvince [facility] 1.2.041.331 [id number] Univers 00:00:00 00:00:00 Floridalma C EDITORIAL CLERK 350.1.13.10 ity of [facility] 4.2.7.2.686 Matt as MATERNAL [phone] [facility] ical & CHILD [address] [place] [address] 2020-05-30 2020-05-30 Refvince [facility] 1.2.840.114 [id number] Univers 00:00:00 00:00:00 [facility] 350.1.13.10 it y of [place] 4.2.7.2.686 Matt as Professio [phone] [address] 2020-05-27 2020-05-27 Outpatient R EMANUEL, [facility] [id number] Univers 10:30:00 10:30:00 FLORIDALMA oh o [facility] 2020-05-27 2020-05-27 Outpatient R EMANUEL, [facility] [id number] Univers 10:30:00 10:30:00 FLORIDALMA oh o [facility] 2020-05-10 2020-05-10 Urgent Provider, [facility] 1.2.840.114 [id number] Univers 11:18:40 11:38:40 Care [place] 350.1.13.10 ity [facility] 4.2.7.2.686 Matt as Professio [phone] [address] 2020-05-10 2020-05-10 Outpatient R JESSICA, [facility] [id number] Univers 11:20:00 11:20:00 CATALINA ity [facility] 2020-05-09 2020-05-09 Telephone [facility] 1.2.008.890 [id number] Univers 00:00:00 00:00:00 Sheilanda R EDITORIAL CLERK 350.1.13.10 ity of [facility] 4.2.7.2.686 Matt as MATERNAL [phone] [facility] & CHILD [address] [place] [address] 2020-03-31 2020-03-31 Office [facility] 1.2.923.654 [id number] Univers 09:26:23 10:13:41 Visit Floridalma C EDITORIAL CLERK 350.1.13.10 ity of [facility] 4.2.7.2.686 Matt as MATERNAL [phone] Med ical & CHILD [address] [place] [address] 2020-03-31 2020-03-31 [facility] [id number] Univers 09:00:00 09:00:00 FLORIDALMA hannony o f [facility] 2020-03-11 2020-03-11 Telephone [facility] 1.2.840.114 [id number] Univers 00:00:00 00:00:00 Floridalma C EDITORIAL CLERK 350.1.13.10 ity of [facility] 4.2.7.2.686 Matt as MATERNAL [phone] [facility] & CHILD [address] [place] [address] 2020-03-10 2020-03-10 Outpatient R [facility] [id number] Univers 14:30:00 14:30:00 FLORIDALMA adriano o f [facility] 2020-03-10 2020-03-10 Office [facility] 1.2.438.501 [id number] [facility] 10:09:10 11:09:52 Visit Floridalma C EDITORIAL CLERK 350.1.13.10 ity of [facility] 4.2.7.2.686 Matt as MATERNAL [phone] [facility] & CHILD [address] [place] [address] 2020-03-07 2020-03-07 Telephone [facility] 1.2.578.185 [id number] Univers 00:00:00 00:00:00 Roshunda R EDITORIAL CLERK 350.1.13.10 ity of [facility] 4.2.7.2.686 Matt as MATERNAL [phone] Med ical & CHILD [address] [place] [address] 2019-12-29 2019-12-30 Initial [facility] 1.2.840.114 [id number] Univers 13:01:04 11:33:02 Roshunda R EDITORIAL CLERK 350.1.13.10 ity of Visit [facility] 4.2.7.2.686 Matt as MATERNAL [phone] [facility] & CHILD [address] [place] [address] 2019-12-30 2019-12-30 Patient Doctor [facility] 1.2.840.114 [id number] Univers 00:00:00 00:00:00 Secure Msg Unassigned, EDITORIAL CLERK 350.1.13.10 ity of [place] [facility] 4.2.7.2.686 Matt as MATERNAL [phone] [facility] ical & CHILD [address] [place] [address] 2019-12-30 2019-12-30 Patient Doctor [facility] 1.2.840.114 [id number] Univers 00:00:00 00:00:00 Secure Msg Unassigned, EDITORIAL CLERK 350.1.13.10 ity of [place] [facility] 4.2.7.2.686 Matt as MATERNAL [phone] [facility] & CHILD [address] [place] [address] 2019-12-29 2019-12-29 Office Floyd [facility] 1.2.840.114 [id number] Univers 14:04:59 14:20:25 Visit Jacob Love EDITORIAL CLERK 350.1.13.10 ity of [facility] 4.2.7.2.686 Matt as MATERNAL [phone] [facility] & CHILD [address] [place] [address] 2019-12-29 2019-12-29 Outpatient R FLOYD [facility] [id number] Univers 12:45:00 12:45:00 JACOB oh o f [facility] 2019-12-15 2019-12-15 Emergency [facility] 1.2.046.345 [id number] Univers 07:30:05 08:20:00 [place] 350.1.13.[address] [facility] 4.2.7.2.686 [place] [phone] [address] 2019-12-14 2019-12-14 Patient Frank [facility] 1.2.840.114 [id number] Univers 00:00:00 00:00:00 Secure Msg , Ethel EDITORIAL CLERK 350.1.13.10 ity of [facility] 4.2.7.2.686 Matt as MATERNAL [phone] [facility] & CHILD [address] [place] [address] 2019-11-30 2019-11-30 Outpatient R [facility] [id number] Univers 08:30:00 08:30:00 ity of [facility] 2019-11-27 2019-11-27 Outpatient R [facility] [id number] Univers 09:30:00 09:30:00 ity of [facility] 2019-11-26 2019-11-26 Outpatient R [facility] [id number] Univers 09:00:00 09:00:00 ity of [facility] 2019-11-26 2019-11-26 Telephone Floyd [facility] 1.2.304.285 [id number] Univers 00:00:00 00:00:00 Rosleobardoa R EDITORIAL CLERK 350.1.13.10 ity of [facility] 4.2.7.2.686 Matt as MATERNAL [phone] [facility] & CHILD [address] [place] [address] 2019-11-24 2019-11-24 Outpatient R EMANUEL, [facility] [id number] Univers 09:30:00 09:30:00 FLORIDALMA oh o f [facility] 2019-11-03 2019-11-03 Outpatient Raju_P MMG G [id number] [place] 05:13:00 05:13:00 0324 Medical [facility] 2019-10-27 2019-10-27 Patient Floyd [facility] 1.2.840.114 [id number] Univers 00:00:00 00:00:00 Secure Msg Jacob R EDITORIAL CLERK 350.1.13.10 ity of [facility] 4.2.7.2.686 Matt as MATERNAL [phone] [facility] & [address] 2019-10-16 2019-10-16 [facility] 1.2.654.111 [id number] Univers 10:45:40 11:26:43 Visit Floridalma Curry EDITORIAL CLERK 350.1.13.10 ity of [facility] 4.2.7.2.686 Matt as MATERNAL [phone] [facility] & [address] 2019-10-16 2019-10-16 Outpatient R EMANUEL, [facility] [id number] Univers 10:45:00 10:45:00 FLORIDALMA oh o f [facility] 2019-10-07 2019-10-07 Office [facility] 1.2.644.106 [id number] Univers 12:51:31 13:44:17 Visit Floridalma C EDITORIAL CLERK 350.1.13.10 ity of [facility] 4.2.7.2.686 Matt as MATERNAL [phone] [facility] ical & CHILD [address] [place] [address] 2019-10-07 2019-10-07 Outpatient R EMANUEL [facility] [id number] Univers 13:00:00 13:00:00 FLORIDALMA ity o f [facility] 2019-10-06 2019-10-06 Telephone [facility] 1.2.840.114 [id number] Univers 00:00:00 00:00:00 Floridalma C EDITORIAL CLERK 350.1.13.10 ity of [facility] 4.2.7.2.686 Matt as MATERNAL [phone] [facility] & CHILD [address] [place] [address] 2019-10-02 2019-10-02 [facility] 1.2.168.000 [id number] Univers 14:07:49 15:15:37 Visit Floridalma C EDITORIAL CLERK 350.1.13.10 ity of [facility] 4.2.7.2.686 Matt as MATERNAL [phone] [facility] & CHILD [address] [place] [address] 2019-08-25 2019-08-25 Office [facility] 1.2.135.911 [id number] Univers 09:57:53 13:09:26 Visit Floridalma C EDITORIAL CLERK 350.1.13.10 ity of [facility] 4.2.7.2.686 Matt as MATERNAL [phone] [facility] & CHILD [address] [place] [address] 2019-08-25 2019-08-25 Orders Doctor HADLEY 1.2.840.114 [id number] Univers 00:00:00 00:00:00 Only Unassigned, LEIGHA 350.1.13.10 ity of [place] [facility] 4.2.7.2.686 Matt as [phone] [address] 2019-08-25 2019-08-25 [facility] 1.2.646.873 [id number] Univers 00:00:00 00:00:00 (Out) Floridalma C EDITORIAL CLERK 350.1.13.10 ity of [facility] 4.2.7.2.686 Matt as MATERNAL [phone] Med ical & CHILD [address] [facility] [place] [place] 2019-03-05 2019-03-05 Emergency OMAYRA Pace 1.2.315.641 [id number] Univers 22:28:42 23:12:00 Alvin Castro 350.1.13.[address] [facility] 4.2.7.2.686 [place] [phone] [address] Results Test Description Test Time Test Comments Results Result Comments Source POCT TEST 2022-09-21 15:47:00 Test Item Value Reference Range Interpretation Comme nts POCT PREG (test code = 1605) Negative On board controls acceptable with C Line (test code = 3574) Yes POCT PREG LOT # (test code = 3575) POCT PREG TEST DATE (test code = 3576) [id number] 15:47:00 Test Item Value Reference Range Interpretation Comments POCT PREG (test code = 1605) Negative On board controls acceptable with C Yes Line (test code = 3574) POCT PREG LOT # (test code = 3575) POCT PREG TEST DATE (test code = 3576) [facility] [id number] 14:24:00 Test Item Value Reference Range Interpretation Comments POCT PREG (test code = 1605) Negative On board controls acceptable with C Yes Line (test code = 3574) POCT PREG LOT # (test code = 3575) POCT PREG TEST DATE (test code = 3576) [facility] [id number] 14:24:00 Test Item Value Reference Range Interpretation Comments POCT PREG (test code = 1605) Negative On board controls acceptable with C Yes Line (test code = 3574) POCT PREG LOT # (test code = 3575) POCT PREG TEST DATE (test code = 3576) [facility]
--- NOTE | 2022-09-26 10:18 | RAD REPORT ---
EXAM DESCRIPTION: [facility] Pa And Lat (2 Views)09/26/2022 9:59 am CLINICAL HISTORY: DYSPNEA COMPARISON: Chest Pa And Lat (2 Views) dated 07/23/2022; Chest Pa And Lat (2 Views) dated 03/15/2021; Chest Pa And Lat (2 Views) dated 03/15/2021; Chest Pa And Lat (2 Views) dated 10/06/2020 TECHNIQUE: PA and lateral views of the chest. FINDINGS: The lungs are clear. No pneumothorax or effusion. The cardiomediastinal contours are unrem arkable. IMPRESSION: No acute cardiopulmonary process.
[2022-09-26 10:52] LABS: SARS-COV-2 RT PCR NEGATIVE (NEGATIVE)
--- NOTE | 2022-09-26 11:06 | EDPHYS ---
Physician Documentation [facility] Name: Maylin Zuniga Age: 22 yrs Sex: Female : 2000 Arrival Date: 09/26/2022 Time: 09:35 Bed 11 Private MD: ED Physician Jeffry Ashraf HPI: 09/26 09:46 This 22 yrs old Female presents to ER via Unassigned with complaints of kb Breathing Difficulty. 09:46 The patient has shortness of breath at rest. Onset: The symptoms/episode began/occurred kb yesterday. Duration: The symptoms are continuous. The patient's shortness of breath has no apparent modifying factors. Associated signs and symptoms: Pertinent positives: This patient does not have any pertinent positive signs or symptoms associated with shortness of breath. Severity of symptoms: At their worst the symptoms were mild moderate in the emergency department the symptoms are unchanged. The patient has not experienced similar symptoms in the past. The patient has not recently seen a physician. 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 - Social history:: Smoking status: Patient denies any tobacco usage or history of. ROS: 09:46 Constitutional: Negative for fever, chills, and weight loss. kb 09:46 Respiratory: Positive for shortness of breath, Negative for cough, dyspnea on exertion, hemoptysis, orthopnea, pleurisy, sputum production, wheezing. 09:46 All other systems are negative. Exam: 09:45 Constitutional: This is a well developed, well nourished patient who is awake, alert, kb and in no acute distress. Head/Face: Normocephalic, atraumatic. ENT: Moist Mucous membranes Cardiovascular: Regular rate and rhythm with a normal S1 and S2. No gallops, murmurs, or rubs. No pulse deficits. Respiratory: Respirations even and unlabored. No increased work of breathing. Talking in full sentences Abdomen/GI: Soft, non-tender. No distention Back: No spinal tenderness. No costovertebral tenderness. Full range of motion. Skin: Warm, dry with normal turgor. Normal color. MS/ Extremity: Pulses equal, no cyanosis. Neurovascular intact. Full, normal range of motion. Neuro: Awake and alert, GCS 15, oriented to person, place, time, and situation. Moves all extremities. Normal gait. Psych: Awake, alert, with orientation to person, place and time. Behavior, mood, and affect are within normal limits. Vital Signs: 09:45 Pulse 65; Resp 18; Pulse Ox 99% ; kb 10:05 BP 138 / 97; Resp 17; Temp 98.3; Weight 74.84 kg; Height 5 ft. 5 in. (165.10 cm); ap3 10:05 Body Mass Index 27.46 (74.84 kg, 165.10 cm) ap3 MDM: 09:38 Patient medically screened. kb 09:43 Differential diagnosis: Bronchitis pneumonia, Pneumothorax Pulmonary Embolism Flu, kb COVID. Data reviewed: vital signs, nurses notes. Scoring Tools PERC Rule for PE Age >/= 50 No HR >/= 100 No O2 Sat Room Air < 95% No Unilateral leg swelling No Hemoptysis No Recent surgery or trauma </= 4 wks ago requiring treatment with general anesthesia No (0 pt) Prior PE or DVT No Hormone use (Oral contraceptives, hormone replacement or estrogenic hormones use in males or female patients Yes. ED course: Patient is a 22-year-old female with no medical history who presents for shortness of breath that started yesterday. Denies cough, congestion, fever. Physical exam unremarkable. No respiratory distress, no increased work of breathing, lungs clear throughout. Will obtain flu and COVID test as well as chest x-ray. . 11:04 Counseling: I had a detailed discussion with the patient and/or guardian regarding: the kb historical points, exam findings, and any diagnostic results supporting the discharge/admit diagnosis, lab results, radiology results, the need for outpatient follow up, a family practitioner, to return to the emergency department if symptoms worsen or persist or if there are any questions or concerns that arise at home. ED course: Negative for COVID and flu. Chest x-ray normal. Patient educated on results and recommended follow-up with PCP. Patient has no respiratory distress, respirations even and unlabored, lungs clear throughout. Patient nontoxic in appearance. Oxygen saturation 99% on room air and vital stable.. 09/26 09:48 Order name: COVID-19/FLU A+B kb 09/26 10:53 Order name: COVID-19/FLU A+B; Complete Time: 11:03 EDMS 09/26 09:48 Order name: Chest Pa And Lat (2 Views) XRAY kb 09/26 10:19 Order name: RAD; Complete Time: 10:22 EDMS Administered Medications: 11:43 Drug: Albuterol 1.25 mg Route: Inhalation; ph 12:07 Follow up: Response: No adverse reaction eh3 11:43 Drug: AtroVENT (ipratropium) Aerosol 0.5 mg Route: Inhalation; ph 12:07 Follow up: Response: No adverse reaction eh3 Disposition: 18:57 Co-signature as Attending Physician, Jeffry Ashraf MD. bs3 Disposition Summary: 09/26/22 11:05 Discharge Ordered Location: Home kb Condition: Stable kb Diagnosis - Dyspnea kb Followup: kb - With: Emergency Department - When: As needed - Reason: Worsening of condition Followup: kb - With: Private Physician - When: 2 - 3 days - Reason: Recheck today's complaints, Continuance of care, Re-evaluation by your physician Discharge Instructions: - Discharge Summary Sheet kb - Shortness of Breath, Adult, [id number] kb Forms: - Medication Reconciliation Form kb - Thank You Letter kb - Antibiotic Education kb - Prescription Opioid Use kb - Work release form ph Signatures: Dispatcher [employer] EDND Felicia Swanson FNP-C FNP-Latoya Riojas RN RN Alisia Chaudhari RN RN 3 Jeffry Ashraf MD MD 3 Erum Chauhan RN 3 Corrections: (The following items were deleted from the chart) 11:05 11:05 Dysuria kb kb
--- NOTE | 2022-09-26 11:06 | ER ---
Nurse's Notes [facility] Name: Maylin Zuniga Age: 22 yrs Sex: Female : 2000 Arrival Date: 09/26/2022 Time: 09:35 Bed 11 Private MD: Diagnosis: Dyspnea Presentation: 09/26 09:47 Chief complaint: Patient states: she has been having shortness of breath since ap3 yesterday. Coronavirus screen: Client presents with at least one sign or symptom that may indicate coronavirus-19. Ebola Screen: No symptoms or risks identified at this time. Initial Sepsis Screen: Does the patient meet any 2 criteria? No. Patient's initial sepsis screen is negative. Does the patient have a suspected source of infection? No. Patient's initial sepsis screen is negative. Risk Assessment: Do you want to hurt yourself or someone else? Patient reports no desire to harm self or others. Onset of symptoms was September 25, 2022. 09:47 Method Of Arrival: Ambulatory ap3 09:48 Acuity: VINNY 3 ap3 Triage Assessment: 09:49 Respiratory: Reports shortness of breath. ap3 10:06 General: Appears in no apparent distress. Behavior is calm, cooperative, appropriate ap3 for age. Pain: Denies pain. Neuro: Level of Consciousness is awake, alert, obeys commands, Oriented to person, place, time, situation. Cardiovascular: Patient's skin is warm and dry. Respiratory: Onset: The symptoms/episode began/occurred yesterday, the patient has mild shortness of breath. 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 - Social history:: Smoking status: Patient denies any tobacco usage or history of. Screenin:48 [facility] ED Fall Risk Assessment (Adult) History of falling in the last 3 months, ap3 including since admission No falls in past 3 months (0 pts). Abuse screen: Denies threats or abuse. Nutritional screening: No deficits noted. Tuberculosis screening: No symptoms or risk factors identified. Assessment: 09:48 Respiratory: Airway is patent Respiratory effort is even, unlabored. ap3 11:41 Reassessment: Patient appears in no apparent distress at this time. Patient and/or ph family updated on plan of care and expected duration. Pain level reassessed. Patient is alert, oriented x 3, equal unlabored respirations, skin warm/dry/pink. ERP at bedside to speak w/ pt about test results,pt requesting neb tx, see OCT. Vital Signs: 09:45 Pulse 65; Resp 18; Pulse Ox 99% ; kb 10:05 BP 138 / 97; Resp 17; Temp 98.3; Weight 74.84 kg; Height 5 ft. 5 in. (165.10 cm); ap3 10:05 Body Mass Index 27.46 (74.84 kg, 165.10 cm) ap3 ED Course: 09:35 Patient arrived in ED. mr 09:38 Felicia Sw[facility]C [facility] kb 09:38 Jeffry Ashraf MD is Attending Physician. kb 09:48 Triage completed. ap3 10:05 COVID-19/FLU A+B Sent. ap3 10:06 Arm band placed on left wrist. ap3 11:28 Latoya Chauhan, RN is Primary Nurse. ph 11:28 No provider procedures requiring assistance completed. Patient did not have IV access ph during this emergency room visit. 11:28 Patient has correct armband on for positive identification. Bed in low position. Call ph light in reach. Administered Medications: 11:43 Drug: Albuterol 1.25 mg Route: Inhalation; ph 12:07 Follow up: Response: No adverse reaction eh3 11:43 Drug: AtroVENT (ipratropium) Aerosol 0.5 mg Route: Inhalation; ph 12:07 Follow up: Response: No adverse reaction eh3 Medication: 10:07 VIS not applicable for this client. ap3 Outcome: 11:05 Discharge ordered by . kb 11:28 Discharged to home ambulatory. ph 11:28 Condition: good 11:28 Discharge instructions given to patient, Instructed on discharge instructions, follow up and referral plans. Demonstrated understanding of instructions, follow-up care. 12:06 Patient left the ED. eh3 Signatures: Felicia Swanson FNP-C FNP-Ckb GamezCaren ribera Patricia, RN RN ph Alisia Chaudhari, RN RN ap3 Tien, Erum, RN RN eh3
[2022-09-26] MEDS ORDERED: IPRATROPIUM BROM 0.5MG/2.5ML ONE (11:42)
[2022-09-26] MEDS ORDERED: ALBUTEROL 2.5 MG/3 ML NEB SOL ONE (11:42)
[2022-09-26 12:13] VITALS: TEMP 98.3
[2022-09-26 12:22] VITALS: BP 117/79; O2SAT 100
== END 2022-09-26 12:06 | disposition home or self-care (01) ==
LOC: ER 09:32
DX: R06.00 Dyspnea, unspecified (principal); Z20.822 Contact with and (suspected) exposure to COVID-19
CPT/HCPCS: 0240U; 71046; J7613; J7644

== ENCOUNTER 2022-09-27 00:18 | Emergency (ER) | payer OTHER ==
--- OUTSIDE RECORDS SUMMARY | 2022-09-27 00:22 | XMS REPORT | Continuity of Care Document ---
:2000 Author Organization [facility] Address [address] Herrera [address] [place] [id number] Care Team Providers Name Role Phone Jacob Joseph Primary Care Physician [phone] FLORIDALMA CASTELLANOS Attending Clinician Unavailable Carla Franklin CNM Attending Clinician CARLA FRANKLIN Attending Clinician Unavailable Provider, Pedro Temp Attending Clinician Unavailable ROSALES CHAPIN Attending Clinician Unavailable ROSALES CHAPIN Attending Clinician Unavailable ROSALES KIMBALL Attending Clinician Unavailable UNKNOWN, ATTENDING Attending Clinician Unavailable Jacob Joseph Attending Clinician JACOB BARRIENTOS Attending Clinician Unavailable Visit, [facility] Nurse Attending Clinician Unavailable Doctor Unassigned, [place] Attending Clinician Unavailable ALIVIA ERNANDEZ Attending Clinician Unavailable Alivia Swanson Attending Clinician CINDY APARICIO Attending Clinician Unavailable Robert WISE, Rayne Godoy Attending Clinician Unavailable NI ALVAREZ Attending Clinician Unavailable Floridalma Diane Attending Clinician [phone] Joel Matt DO Attending Clinician Catalina Lara Attending Clinician Provider, [facility] Attending Clinician Unavailable CATALINA HATFIELD Attending Clinician Unavailable Fletcher Ramesh MD Attending Clinician Frank WISE, Ethel Attending Clinician Unavailable Radha_Alfredo Attending Clinician Unavailable Alvin Nobles Attending Clinician Radha_P Admitting Clinician Unavailable Payers Payer Name Policy Type Policy Number Effective Date Expiration Date S brenton FORMERLY [facility] [id number] 2020 CHOICE [place] STAR 00:00:00 [facility] [id number] 2019 00:00:00 [place] [id number] 2019 00:00:00 Problems Condition Condition Condition Status [...] Univers sad sad 5-21 ity of 00:00: [place] [facility] Encounter Encounter Disease Active Uni vers for other for other 5-07 ity of general general 00:00: [place] counseling counseling 00 Me dical or advice or advice Bran ch on on contracept contracept ion ion Absence of Absence of Disease Active U nivers menstruati menstruati 3-24 it y of on on 00:00: [place] 00 Medical Branch Breast Breast Disease Active Univers tenderness tenderness 3-24 it y of in female in female 00:00: [facility] s 00 Medical Branch Class 1 Class [...] it y of adult adult 00:00: [place] [facility] Elevated Elevated Disease Active Unive rs blood blood 2-21 ity of pressure pressure 00:00: [place] reading reading 00 Medical without without Branch diagnosis diagnosis of of hypertensi hypertensi on on Other Other Disease Active Univers depression depression -09 it y of 00:00: [place] [facility] Nexplanon Nexplanon Disease Active Uni vers removal removal - ity of 00:00: [address] Screening Screening Disease Active Uni vers examinatio examinatio 09 it y of n for STD n for STD 00:00: Rudy s (sexually (sexually 00 [facility] danni transmitte transmitte Br anch d disease) d disease) BMI BMI Disease Active 2018-08 Univers 27.0-27.9, 27.0-27.9, 0-16 it y of adult adult 00:00: [place] [facility] BMI BMI Disease Active 2018-08 Univers 29.0-29.9, 29.0-29.9, 0-16 it y of adult adult 00:00: [place] [facility] HPV HPV Disease Active 2018-08 Univers vaccine vaccine 0-16 ity of counseling [place] [facility] Overweight Overweight Disease Active 2018-08 U nivers 0-16 ity of 00:00: [place] [facility] Lump or Lump or Disease Active Univers mass in mass in 4-13 ity of breast breast 00:00: [place] [facility] Nexplanon Nexplanon Disease Resolve 2019-08-20 2019-08-20 Univers insertion insertion d 4-13 00:00:00 15:53:54 ity of 00:00: [place] [facility] Allergies, Adverse Reactions, Alerts Allergy Allergy Status Severity Reaction(s) Onset Inactive Treating Comm ents Source Name Type Date Date Clinician NO KNOWN Drug Active Univers ALLERGIE Class ity of S [facility] [place] [facility] Social History Social Habit Start Date Stop Date Quantity Comments Source History SDOH University o f Alcohol Frequency [place] [facility] History SDOH University o f Alcohol Std [place] [facility] Drinks Branch History SDOH University o f Alcohol Binge [place] [facility] Exposure to 2022-09-11 2022-09-21 Not sure [facility]-CoV-2 00:00:00 09:44:00 [place] [facility] (event) [facility] Alcohol intake 2022-09-21 2022-09-21 Current drinker Unive rsity of 00:00:00 00:00:00 of alcohol [place] [facility] (finding) Branch Alcohol Comment 2021-11-02 2021-11-02 social Universit y of 00:00:00 00:00:00 [facility] [place] [facility] Tobacco use and 2014-11-22 2014-11-22 Smokeless tobacco Un iversity of exposure 00:00:00 00:00:00 non-user [facility] [place] [facility] Sex Assigned At [birth year] Universit y of 00:00:00 00:00:00 [facility] [place] [facility] Smoking Status Start Date Stop Date Source Never smoked tobacco [facility] Medications Ordered Filled Start Stop Current Ordering Indication Dosage Frequency Signature Comments Components Source Medication Medication Date Date Medication? Clinician (SIG) Name Name doxycycline 2022- Yes [id number] 100mg Take 1 Univers hyclate 100 2-13 10-02 capsule by i ty of mg capsule 00:00: 05:59 mouth [place] 00 :00 every 12 Medical (twelve) Branch hours for 7 days. norelgestro Yes [id number] 1{patch Apply 1 Univers min-ethinyl 2-10 } Patch to ity of estradiol 00:00: skin [place] 150-35 00 weekly. Medical mcg/24 hr Branch patch norelgestro Yes [id number] 1{patch Apply 1 Univers min-ethinyl 2-10 } Patch to ity of estradiol 00:00: skin [place] 150-35 00 weekly. Medical mcg/24 hr Branch patch norelgestro Yes [id number] 1{patch Apply 1 Univers min-ethinyl 2-10 } Patch to ity of estradiol 00:00: skin [place] 150-35 00 weekly. Medical mcg/24 hr Branch patch norelgestro Yes [id number] 1{patch Apply 1 Univers min-ethinyl 2-10 } Patch to ity of estradiol 00:00: skin [place] 150-35 00 weekly. Medical mcg/24 hr Branch patch norgestimat Yes [id number] 1{tbl} Take 1 Univers e-ethinyl 7-07 tablet by ity o f estradioL 00:00: mouth [place] 0.18/0.215/ 00 daily. Medica l 0.25 mg-25 Branch mcg tablet norgestimat 2022- No [id number] 1{tbl} Take 1 Univers e-ethinyl 7-07 02-10 tablet by ity of estradioL 00:00: 00:00 mouth [place] 0.18/0.215/ 00 :00 daily. Medica l 0.25 mg-25 Branch mcg tablet norgestimat 2022- No [id number] 1{tbl} Take 1 Univers e-ethinyl 7-07 02-10 tablet by ity of estradioL 00:00: 00:00 mouth [place] 0.18/0.215/ 00 :00 daily. Medica l 0.25 mg-25 Branch mcg tablet norgestimat 2021- No [id number] 1{tbl} Take 1 Univers e-ethinyl 4-07 07-07 tablet by ity of estradioL 00:00: 00:00 mouth [place] 0.18/0.215/ 00 :00 daily. Medica l 0.25 mg-25 Branch mcg tablet benzonatate Yes [id number] 100mg Take 1 Univers 100 mg 3-07 capsule by ity of capsule 00:00: mouth 3 [place] 00 (three) Medical times Branch daily as needed for Cough. albuterol Yes [id number] 6{puff} Inhale 6 Univers 90 3-07 Puffs ity of mcg/actuati 00:00: every 4 Matt as on inhaler 00 (four) Medical hours as Branch needed for Wheezing or Shortness of Breath. albuterol Yes [id number] 6{puff} Inhale 6 Univers 90 3-07 Puffs ity of mcg/actuati 00:00: every 4 Matt as on inhaler 00 (four) Medical hours as Branch needed for Wheezing or Shortness of Breath. albuterol Yes [id number] 6{puff} Inhale 6 Univers 90 3-07 Puffs ity of mcg/actuati 00:00: every 4 Matt as on inhaler 00 (four) Medical hours as Branch needed for Wheezing or Shortness of Breath. albuterol Yes [id number] 6{puff} Inhale 6 Univers 90 3-07 Puffs ity of mcg/actuati 00:00: every 4 Matt as on inhaler 00 (four) Medical hours as Branch needed for Wheezing or Shortness of Breath. albuterol Yes [id number] 6{puff} Inhale 6 Univers 90 3-07 Puffs ity of mcg/actuati 00:00: every 4 Matt as on inhaler 00 (four) Medical hours as Branch needed for Wheezing or Shortness of Breath. benzonatate 2022- No [id number] 100mg Take 1 Univers 100 mg 10-16-10 capsule by ity of capsule 00:00: 00:00 mouth 3 00 :00 (three) Medical times Branch daily as needed for Cough. benzonatate 2022- No [id number] 100mg Take 1 Univers 100 mg 10-16-10 capsule by ity of capsule 00:00: 00:00 mouth 3 [place] 00 :00 (three) Medical times Branch daily as needed for Cough. etonogestre No Nexplanon 68mg Univers L 12-16-07 insertion ity of (NEXPLANON) 15:45: 14:44 [place] implant 68 00 :00 Medical mg Branch etonogestre 2020- No [id number] 68mg 68 mg, Univers L 12-16-07 Subdermal, ity of (NEXPLANON) 15:45: 14:44 ONCE NOW, [place] implant 68 00 :00 1 dose, Medica l mg Sat12/16/20 Branch at 1045, Routine
Use approved by: [employer] etonogestre 2020- No Nexplanon 68mg Univers L 12-16-07 insertion ity of (NEXPLANON) 15:45: 14:44 [place] implant 68 00 :00 Medical mg Branch etonogestre 2020- No [id number] 68mg 68 mg, Univers L 12-16 05-07 Subdermal, ity of (NEXPLANON) 15:45: 14:44 ONCE NOW, [place] implant 68 00 :00 1 dose, Medica l mg Sat12/16/20 Branch at 1045, Routine
Use approved by: [employer] Immunizations Ordered Immunization Filled Immunization Date Status Commen ts Source Name Name Influenza Virus 2021-11-02 Completed Universit y of Vaccine Quad .5 mL 00:00:00 [place] [facility] IM 6+ MO Branch Influenza Virus 2021-11-02 Completed Universit y of Vaccine Quad .5 mL 00:00:00 [place] [facility] IM 6+ MO Branch Influenza Virus 2021-11-02 Completed Universit y of Vaccine Quad .5 mL 00:00:00 [place] [facility] IM 6+ MO Branch Influenza Virus 2021-11-02 Completed Universit y of Vaccine [place] .5 mL 00:00:00 [place] [facility] IM 6+ MO Branch Influenza Virus 2021-11-02 Completed Universit y of Vaccine Quad .5 mL 00:00:00 [facility] 6+ MO Branch SARS-COV-2 COVID-19 2021-03-27 Completed Unive rsity of PFIZER VACCINE 00:00:00 [facility] SARS-COV-2 COVID-19 2021-03-27 Completed Unive rsity of PFIZER VACCINE 00:00:00 [facility] SARS-COV-2 COVID-19 2021-03-27 Completed Unive rsity of PFIZER VACCINE 00:00:00 [facility] SARS-COV-2 COVID-19 2021-03-27 Completed Unive rsity of PFIZER VACCINE 00:00:00 [facility] SARS-COV-2 COVID-19 2021-03-27 Completed Unive rsity of PFIZER VACCINE 00:00:00 [facility] SARS-COV-2 COVID-19 2021-03-06 Completed Unive rsity of PFIZER VACCINE 00:00:00 [facility] SARS-COV-2 COVID-19 2021-03-06 Completed Unive rsity of PFIZER VACCINE 00:00:00 [facility] SARS-COV-2 COVID-19 2021-03-06 Completed Unive rsity of PFIZER VACCINE 00:00:00 [facility] SARS-COV-2 COVID-19 2021-03-06 Completed Unive rsity of PFIZER VACCINE 00:00:00 [facility] SARS-COV-2 COVID-19 2021-03-06 Completed Unive rsity of PFIZER VACCINE 00:00:00 [facility] HPV9 2019-08-25 Completed University of 00:00:00 [facility] HPV9 2019-08-25 Completed University of 00:00:00 [place] [facility] HPV9 2019-08-25 Completed University of 00:00:00 [place] [facility] HPV9 2019-08-25 Completed University of 00:00:00 [place] [facility] HPV9 2019-08-25 Completed University of 00:00:00 [place] [facility] HPV9 2019-08-25 Completed University of 00:00:00 [place] [facility] HPV9 2019-08-25 Completed University of 00:00:00 [place] [facility] HPV9 2019-05-27 Completed University of 00:00:00 [place] [facility] HPV9 2019-05-27 Completed University of 00:00:00 [place] [facility] HPV9 2019-05-27 Completed University of 00:00:00 [place] [facility] HPV9 2019-05-27 Completed University of 00:00:00 [place] [facility] HPV9 2019-05-27 Completed University of 00:00:00 [facility] HPV9 2019-05-27 Completed University of 00:00:00 [facility] HPV9 2019-05-27 Completed University of 00:00:00 [facility] [place] [facility] TDAP (ADACEL) 2014-06-24 Completed University of VACCINE 00:00:00 [facility] [place] [facility] Meningococcal 2014-06-24 Completed University of Vaccine 00:00:00 [facility] TDAP (ADACEL) 2014-06-24 Completed University of VACCINE 00:00:00 [facility] [place] [facility] Meningococcal 2014-06-24 Completed University of Vaccine 00:00:00 [facility] [place] [facility] TDAP (ADACEL) 2014-06-24 Completed University of VACCINE 00:00:00 [facility] Meningococcal 2014-06-24 Completed University of Vaccine 00:00:00 [facility] TDAP (ADACEL) 2014-06-24 Completed University of VACCINE 00:00:00 [facility] Meningococcal 2014-06-24 Completed University of Vaccine 00:00:00 [facility] TDAP (ADACEL) 2014-06-24 Completed University of VACCINE 00:00:00 [facility] Meningococcal 2014-06-24 Completed University of Vaccine 00:00:00 [facility] TDAP (ADACEL) 2014-06-24 Completed University of VACCINE 00:00:00 [facility] Meningococcal 2014-06-24 Completed University of Vaccine 00:00:00 [facility] [place] [facility] TDAP (ADACEL) 2014-06-24 Completed University of VACCINE 00:00:00 [facility] [place] [facility] Meningococcal 2014-06-24 Completed University of Vaccine 00:00:00 [facility] [place] [facility] TDAP (ADACEL) 2013-03-12 Completed University of VACCINE 00:00:00 [facility] [place] [facility] TDAP (ADACEL) 2013-03-12 Completed University of VACCINE 00:00:00 [facility] [place] [facility] TDAP (ADACEL) 2013-03-12 Completed University of VACCINE 00:00:00 [facility] [place] [facility] TDAP (ADACEL) 2013-03-12 Completed University of VACCINE 00:00:00 [facility] [place] [facility] TDAP (ADACEL) 2013-03-12 Completed University of VACCINE 00:00:00 [facility] [place] [facility] TDAP (ADACEL) 2013-03-12 Completed University of VACCINE 00:00:00 [facility] [place] [facility] TDAP (ADACEL) 2013-03-12 Completed University of VACCINE 00:00:00 [facility] [place] [facility] Vital Signs Vital Name Observation Time Observation Value Comments Source Systolic blood 2022-09-21 15:50:00 132 mm[Hg] Univer sity of pressure [facility] [place] [facility] Diastolic blood 2022-09-21 15:50:00 73 mm[Hg] Unive rsity of [facility] Heart rate 2022-09-21 15:45:00 73 /min [facility] Body temperature 2022-09-21 15:45:00 36.72 [place] [facility] Respiratory rate 2022-09-21 15:45:00 19 /min [facility] Body height 2022-09-21 15:45:00 165.1 cm [facility] Body weight 2022-09-21 15:45:00 76.068 kg [facility] BMI 2022-09-21 15:45:00 27.91 kg/m2 [facility] Systolic blood 2022-02-15 13:51:00 127 mm[Hg] Univer sity of pressure [facility] [place] [facility] Diastolic blood 2022-02-15 13:51:00 88 mm[Hg] Unive rsity of pressure [facility] [place] [facility] Heart rate 2022-02-15 13:51:00 71 /min [facility] Body temperature 2022-02-15 13:51:00 36.11 [place] Univ ersity of [place] [facility] Respiratory rate 2022-02-15 13:51:00 16 /min Univ ersity of [place] [facility] Body height 2022-02-15 13:51:00 165.1 cm Universi ty of [place] [facility] Body weight 2022-02-15 13:51:00 89.313 kg Universi ty of [place] [facility] BMI 2022-02-15 13:51:00 32.77 kg/m2 Universi ty of [place] [facility] Systolic blood 2020-12-16 14:02:00 133 mm[Hg] Univer sity of pressure [place] [facility] Diastolic blood 2020-12-16 14:02:00 85 mm[Hg] Unive rsity of pressure [place] [facility] Heart rate 2020-12-16 14:02:00 89 /min Universi ty of [place] [facility] Body temperature 2020-12-16 14:02:00 36.56 [place] Univ ersity of [place] [facility] Respiratory rate 2020-12-16 14:02:00 16 /min Univ ersity of [place] [facility] Body height 2020-12-16 14:02:00 165.1 cm Universi ty of [place] [facility] Body weight 2020-12-16 14:02:00 89.444 kg Universi ty of [place] [facility] BMI 2020-12-16 14:02:00 32.81 kg/m2 Universi ty of [place] [facility] Systolic blood 2020-12-16 14:02:00 133 mm[Hg] Univer sity of pressure [place] [facility] Diastolic blood 2020-12-16 14:02:00 85 mm[Hg] Unive rsity of pressure [place] [facility] Heart rate 2020-12-16 14:02:00 89 /min Universi ty of [place] [facility] Body temperature 2020-12-16 14:02:00 36.56 [place] Univ ersity of [place] [facility] Respiratory rate 2020-12-16 14:02:00 16 /min Univ ersity of [place] [facility] Body height 2020-12-16 14:02:00 165.1 cm Universi ty of [place] [facility] Body weight 2020-12-16 14:02:00 89.444 kg Universi ty of [place] [facility] BMI 2020-12-16 14:02:00 32.81 kg/m2 Universi ty of [place] [facility] Procedures Procedure Date / Time Performed Performing Clinician Sour e POCT TEST 2022-09-21 00:00:00 Carla Franklin Univ ersity [facility] POCT TEST 2020-12-16 14:24:00 [facility] Planned Activity Planned Date Details Comments Source Future Scheduled 2024-06-24 DTaP,Tdap,and Td Univers ity of Test 00:00:00 Vaccines (3 - Td) [facility] [code = Branch DTaP,Tdap,and Td Vaccines (3 - Td)] Future Scheduled 2024-06-24 DTaP,Tdap,and Td Univers ity of Test 00:00:00 Vaccines (3 - Td) [facility] [code = Branch DTaP,Tdap,and Td Vaccines (3 [...] Screening for University of Test 00:00:00 Chlamydia [facility] trachomatis Branch (procedure) [code = 101604700] Future Scheduled 2021-11-02 Depression screening Uni versity of Test 00:00:00 (procedure) [code = [facility] dical 719230975] Branch Future Scheduled 2021-11-02 MENINGOCOCCAL B Postponed [...] of Test 00:00:00 (procedure) [code = [facility] dical [id number]] Branch Future Scheduled 2021-11-02 Screening for University of Test 00:00:00 Chlamydia [place] [facility] trachomatis Branch (procedure) [code = 683938627] Future Scheduled 2021-11-02 Depression screening Uni versity of Test 00:00:00 (procedure) [code = [facility] dical 176704283] Branch Future Scheduled 2021-11-02 MENINGOCOCCAL B Postponed from Univer sity of Test 00:00:00 VACCINES (1 of 2 - 2011 [place] [facility] ical Risk Bexsero 2-dose (Refused) Branch [...] of Test 00:00:00 (procedure) [code = [facility] dical 467276313] Branch Future Scheduled 2021-04-12 INFLUENZA VACCINE Univer [...] Universit y of Test 00:00:00 screening 2019 [facility] (procedure) [code = (Alternative Branch [id number]] Guidelines) Future Scheduled 2020-12-17 Hepatitis C Postponed from Universit y of Test 00:00:00 screening 2019 [facility] (procedure) [code = (Alternative Branch [id number]] Guidelines) Encounters Start End Encounter Admission Attending Care Care Encounter Source Date/Time Date/Time Type Type Clinicians Facility Department ID 2021-06-08 Emergency [facility] [id number] Univers 19:53:15 ity of [facility] [place] [facility] 2022-12-20 2022-12-20 Outpatient R EMANUEL [facility] [id number] Univers 09:30:00 09:30:00 FLORIDALMA oh o f [facility] [place] [facility] 2022-09-24 2022-09-24 [facility] [id number] Univers 00:00:00 00:00:00 Management Carla Lang [employer] [id number] ity [facility] [id number] Matt as MATERNAL [id number] Med ical & CHILD [address] [place] [address] 2022-09-21 2022-09-21 Outpatient R NOEMI [facility] [id number] Univers 09:30:00 10:18:05 CARLA ity of [facility] [place] [facility] 2022-09-21 2022-09-21 Office [facility] [id number] Univers 09:30:00 10:18:05 Visit Carla Franklin [employer] [id number] [id number] ity [facility] [id number] Matt as MATERNAL [id number] Med ical & CHILD [address] [place] [address] 2022-09-21 2022-09-21 Letter [facility] [id number] Univers 00:00:00 00:00:00 (Out) Carla Lang [employer] [id number] i ty of [facility] [id number] Matt as MATERNAL [id number] [address] 2022-09-07 2022-09-07 Outpatient R ROSALES CHAPIN [facility] [id number] Univers 08:30:00 08:30:00 [facility] [place] [facility] Out[facility] R HENOK [facility] [id number] Univers 13:40:00 13:40:00 ATTENDING ity [facility] 2022-02-15 2022-02-15 [facility] [id number] Univers 09:00:00 09:18:29 Visit Maryndmounika R [employer] [id number] ity [place] [id number] Matt as MATERNAL [id number] [address] 2022-02-15 2022-02-15 Outpatient R FLOYD [facility] [id number] Univers 09:00:00 09:18:29 ROSNDA ity o [facility] 2022-02-15 2022-02-15 Outpatient R FLOYD [facility] [id number] Univers 09:00:00 09:00:00 ROSNDA ity o f [facility] [place] [facility] 2022-02-15 2022-02-15 [facility] [id number] Univers 09:00:00 09:00:00 ROSNDA ity o f [facility] [place] [facility] 2022-01-12 2022-01-12 Telephone [facility] [id number] Univers 00:00:00 00:00:00 [facility] [employer] [id number] Matt as MATERNAL [id number] [address] 2022-01-11 2022-01-11 Office [facility] [id number] Univers 15:15:00 16:08:32 Visit Marynda R [employer] [id number] ity of REG[facility] [id number] Matt as MATERNAL [id number] Med ical & CHILD [address] [place] [address] 2022-01-11 2022-01-11 Outpatient R FLOYD [facility] [id number] Univers 15:15:00 16:08:32 JACOB oh o f [facility] [place] [facility] 2022-01-11 2022-01-11 Outpatient R BARRIENTOS, [facility] [id number] Univers 15:15:00 15:15:00 JACOB ity o f [facility] 2021-11-16 2021-11-16 Outpatient R [facility] [id number] Univers 10:30:00 10:30:00 ity of [facility] 2021-11-16 2021-11-16 Outpatient R FLOYD [facility] [id number] Univers 08:00:00 08:20:47 SHEILACARLOS renner alvaro [facility] 2021-11-16 2021-11-16 Nurse Visit, [facility] Nurse [facility] 1.2 .[id number] Univers 08:00:00 08:20:47 Visit Jacob Barrientos [employer] [id number] ity of [facility] [id number] Matt as MATERNAL [id number] [facility] [address] [place] [address] 2021-11-03 2021-11-[address] [facility] [id number] Univers 00:00:00 00:00:00 Jacob Love [employer] [id number] ity of [facility] [id number] Matt as MATERNAL [id number] [facility] ical & CHILD [address] [place] [address] 2021-11-02 2021-11-[address] [facility] [id number] Univers 10:30:00 11:58:09 Visit Jacob Love [employer] [id number] ity of [facility] [id number] Matt as MATERNAL [id number] Med ical & CHILD [address] [place] [address] 2021-11-02 2021-11-02 Outpatient R FLOYD [facility] [id number] Univers 10:30:00 11:58:09 JACOB oh o alvaro [facility] 2021-11-02 2021-11-02 Outpatient R FLOYD [facility] [id number] Univers 10:30:00 11:58:09 JACOB oh o alvaro [facility] 2021-11-02 2021-11-02 Outpatient R FLOYD [facility] [id number] Univers 10:30:00 10:30:00 JACOB oh o alvaro [facility] 2021-11-02 2021-11-02 Outpatient R FLOYD [facility] [id number] Univers 10:30:00 10:30:00 JACOB oh o alvaro [facility] 2021-11-02 2021-11-02 Orders Doctor HADLEY 1.2.840.114 [id number] Univers 00:00:00 00:00:00 Only Unassigned, LEIGHA 350.1.13.10 ity of [facility] 4.2.7.2.686 Matt as [phone] [facility] [address] 2021-10-16 2021-10-16 Emergency [facility] [id number] Univers 19:47:00 20:32:00 ALIVIA ity [facility] 2021-10-16 2021-10-16 Emergency MauriceR [facility] 1.2.840.114 [id number] Univers 19:47:00 20:32:00 Alivia Liriano ONEILL 350.1.13.10 ity [facility] 4.2.7.2.686 [place] [facility] [phone] [facility] 0[address] Branch 2021-08-01 2021-08-01 Outpatient R FLOYD [facility] [id number] Univers 08:30:00 09:21:32 JACOB oh o [facility] 2021-08-01 2021-08-01 Office [facility] 1.2.840.114 [id number] Univers 08:30:00 09:21:32 Visit Jacob Love [employer] 350.1.13.10 ity of [facility] 4.2.7.2.686 Matt as MATERNAL [phone] [facility] ical & CHILD 107 [facility] 2021-08-01 2021-08-01 Orders Doctor BUTCHER 1.2.840.114 [id number] Univers 00:00:00 00:00:00 Only Unassigned, LEIGHA 350.1.13.10 ity of [place] [facility] 4.2.7.2.686 Matt as [phone] [address] 2021-07-31 2021-07-31 Telephone [facility] 1.2.475.777 [id number] Univers 00:00:00 00:00:00 Jacob R [employer] 350.1.13.10 ity of [facility] 4.2.7.2.686 Matt as MATERNAL [phone] [facility] ica & CHILD [address] [place] [address] 2021-06-13 2021-06-13 Outpatient R MAURY [facility] [id number] Univers 10:30:00 10:58:17 CINDY ity [facility] 2021-06-13 2021-06-13 Office [facility] 1.2.840.114 [id number] Univers 10:01:19 10:58:17 Visit Cindy [employer] 350.1.13.10 ity of [facility] 42.7.2.686 Matt as MATERNAL [phone] [facility] ical & CHILD 111 [facility] 2021-06-13 2021-06-13 Outpatient R MAURY [facility] [id number] Univers 10:30:00 10:30:00 CINDY ity [facility] 2021-06-06 2021-06-06 Telephone [facility] 1.2.210.720 [id number] Univers 00:00:00 00:00:00 Jacob R [employer] 350.1.13.10 ity of [facility] 42.7.2.686 Matt as MATERNAL [phone] [facility] ical & CHILD 107 [facility] 2021-04-10 2021-04-10 Outpatient R EMANUEL [facility] [id number] Univers 10:00:00 10:00:00 FLORIDALMA oh o f [facility] 2021-03-31 2021-03-31 Letter RobertHADLEY moss 1.2.840.114 [id number] Univers 00:00:00 00:00:00 (Out) Rayne Godoy LEIGHA 350.1.13.10 it y [facility] 4.2.7.2.686 Matt as [phone] [address] 2021-03-30 2021-03-30 Outpatient R ANTONIO [facility] [id number] Univers 12:30:00 12:30:00 NI oh [facility] 2020-12-30 2020-12-30 Office [facility] 1.2.840.114 [id number] Univers 09:29:12 10:10:09 Visit Jacob Love [employer] 350.1.13.10 ity [facility] 4.2.7.2.686 Matt as MATERNAL [phone] [facility] ical & CHILD [address] [place] [address] 2020-12-30 2020-12-[address] [facility] 1.2.840.114 [id number] 09:29:12 10:10:09 Visit Jacob Love [employer] 350.1.13.10 [facility] 4.2.7.2.686 MATERNAL [phone] & [address] 2020-12-30 2020-12-30 Outpatient R EMANUEL [facility] [id number] Univers 09:30:00 09:30:00 FLORIDALMA renner [facility] 2020-12-30 2020-12-30 Outpatient R FLOYD [facility] [id number] Univers 08:45:00 08:45:00 JACOB oh o [facility] 2020-12-16 2020-12-16 Office [facility] 1.2.905.971 [id number] Univers 08:57:28 09:27:28 Visit Floridalma Curry [employer] 350.1.13.10 ity [facility] 4.2.7.2.686 Matt as MATERNAL [phone] [facility] ical & CHILD [address] [place] [address] 2020-12-16 2020-12-16 Outpatient R EMANUEL [facility] [id number] Univers 09:00:00 09:00:00 FLORIDALMA renner f [facility] 2020-12-16 2020-12-16 Orders Doctor HADLEY 1.2.840.114 [id number] Univers 00:00:00 00:00:00 Only Unassigned, LEIGHA 350.1.13.10 ity [place] [address].7.2.686 Matt as [phone] [address] 2020-12-02 2020-12-02 Telephone [facility] 1.2.840.114 [id number] Univers 00:00:00 00:00:00 Floridalma Curry [employer] 350.1.13.10 ity of [place] [address].7.2.686 Matt as MATERNAL [phone] [facility] ical & CHILD [address] [place] [address] 2020-11-29 2020-11-29 Nurse Visit, [facility] Nurse [facility] 1.2 .840.114 [id number] Univers 15:31:01 15:46:01 Visit Jacob Barrientos [employer] 350.1.13.10 ity of [place] [address]..2.686 Matt as MATERNAL [phone] [facility] ica & CHILD [address] [place] [address] 2020-11-29 2020-11-29 Outpatient R FLOYD [facility] [id number] Univers 15:30:00 15:30:00 JACOB liriano [facility] 2020-11-29 2020-11-29 Telephone [facility] 1.2.683.289 [id number] Univers 00:00:00 00:00:00 Jacob Love [employer] 350.1.13.10 ity of [place] [address]..2.686 Matt as MATERNAL [phone] Med ical & CHILD [address] [place] [address] 2020-11-02 2020-11-[address] [facility] 1.2.840.114 [id number] Univers 10:16:29 11:05:27 Visit Jacob Love [employer] 350.1.13.10 ity of [facility] 4.2.7.2.686 Matt as MATERNAL [phone] [facility] ical & CHILD [address] [place] [address] 2020-11-02 2020-11-02 Outpatient Ivan BARRIENTOS [facility] [id number] Univers 10:15:00 10:15:00 MARYCARLOS hannonnelli renner [facility] 2020-11-02 2020-11-02 Orders Doctor BUTCHER 1.2.840.114 [id number] Univers 00:00:00 00:00:00 Only Unassigned, LEIGHA 350.1.13.10 ity of [place] [facility] 4.2.7.2.686 Matt as [phone] [address] 2020-11-01 2020-11-01 Outpatient Ivan BARRIENTOS [facility] [id number] Univers 15:00:00 15:00:00 MARYCARLOS liriano [facility] 2020-11-01 2020-11-[address] [facility] 1.2.840.114 [id number] Univers 00:00:00 00:00:00 Outreach [facility] 350.1.13.10 i ty of [facility] 4.2.7.2.686 [place] [phone] [address] 2020-07-04 2020-07-04 Danna CastellanosSH[facility] 1.2.891.454 [id number] Univers 00:00:00 00:00:00 Floridalma Curry [employer] 350.1.13.10 ity of [facility] 4.2.7.2.686 Matt as MATERNAL [phone] [facility] ical & CHILD [address] [place] [address] 2020-06-13 2020-06-13 Outpatient Ivan CASTELLANOS [facility] [id number] Univers 09:15:00 09:15:00 FLORIDALMA liriano [facility] 2020-06-13 2020-06-13 Outpatient R EMANUEL [facility] [id number] Univers 09:15:00 09:15:00 FLORIDALMA liriano [facility] 2020-06-01 2020-06-01 Refvince CastellanosSHIPROCK[facility] 1.2.098.476 [id number] Univers 00:00:00 00:00:00 Floridalma C [employer] 350.1.13.10 ity of [facility] 4.2.7.2.686 Matt as MATERNAL [phone] [facility] ical & CHILD [address] [place] [address] 2020-05-30 2020-05-30 Refvince HatfieldSHIPROCK[facility] 1.2.840.114 [id number] Univers 00:00:00 00:00:00 [facility] 350.1.13.10 it y of [place] 4.2.7.2.686 Matt as Professio [phone] [address] 2020-05-27 2020-05-27 Outpatient R EMANUEL, [facility] [id number] Univers 10:30:00 10:30:00 FLORIDALMA oh o [facility] 2020-05-27 2020-05-27 Outpatient R EMANUEL, [facility] [id number] Univers 10:30:00 10:30:00 FLORIDALMA oh o [facility] 2020-05-10 2020-05-10 Urgent Provider, [facility] 1.2.840.114 [id number] Univers 11:18:40 11:38:40 Care Catalina [place] 350.1.13.10 ity [facility] 4.2.7.2.686 Matt as Professio [phone] [address] 2020-05-10 2020-05-10 Outpatient R JESSICA, [facility] [id number] Univers 11:20:00 11:20:00 CATALINA ity [facility] 2020-05-09 2020-05-09 Telephone [facility] 1.2.998.929 [id number] Univers 00:00:00 00:00:00 Sheilanda R [employer] 350.1.13.10 ity of [facility] 4.2.7.2.686 Matt as MATERNAL [phone] [facility] [address] [place] [address] 2020-03-31 2020-03-31 Office [facility] 1.2.486.659 [id number] Univers 09:26:23 10:13:41 Visit Floridalma C [employer] 350.1.13.10 ity of [facility] 4.2.7.2.686 Matt as MATERNAL [phone] Med ical & CHILD [address] [place] [address] 2020-03-31 2020-03-31 [facility] [id number] Univers 09:00:00 09:00:00 FLORIDALMA hannony o f [facility] 2020-03-11 2020-03-11 Telephone [facility] 1.2.840.114 [id number] Univers 00:00:00 00:00:00 Floridalma C [employer] 350.1.13.10 ity of [facility] 4.2.7.2.686 Matt as MATERNAL [phone] [facility] [address] [place] [address] 2020-03-10 2020-03-10 Outpatient R [facility] [id number] Univers 14:30:00 14:30:00 FLORIDALMA adriano o f [facility] 2020-03-10 2020-03-10 Office [facility] 1.2.362.004 [id number] [facility] 10:09:10 11:09:52 Visit Floridalma C [employer] 350.1.13.10 ity of [facility] 4.2.7.2.686 Matt as MATERNAL [phone] [facility] [address] [place] [address] 2020-03-07 2020-03-07 Telephone [facility] 1.2.848.047 [id number] Univers 00:00:00 00:00:00 Roshunda R [employer] 350.1.13.10 ity of [facility] 4.2.7.2.686 Matt as MATERNAL [phone] Med ical & CHILD [address] [place] [address] 2019-12-29 2019-12-30 Initial [facility] 1.2.840.114 [id number] Univers 13:01:04 11:33:02 Roshunda R [employer] 350.1.13.10 ity of Visit [facility] 4.2.7.2.686 Matt as MATERNAL [phone] [facility] & CHILD [address] [place] [address] 2019-12-30 2019-12-[address] [facility] 1.2.840.114 [id number] Univers 00:00:00 00:00:00 Secure Msg Unassigned, [employer] 350.1.13.10 ity of [place] [facility] 4.2.7.2.686 Matt as MATERNAL [phone] [facility] ical & CHILD [address] [place] [address] 2019-12-30 2019-12-[address] [facility] 1.2.840.114 [id number] Univers 00:00:00 00:00:00 Secure Msg Unassigned, [employer] 350.1.13.10 ity of [place] [facility] 4.2.7.2.686 Matt as MATERNAL [phone] [facility] & CHILD [address] [place] [address] 2019-12-29 2019-12-[address] [facility] 1.2.840.114 [id number] Univers 14:04:59 14:20:25 Visit Jacob Love [employer]URE IN[employer] 350.1.13.10 ity of [facility] 4.2.7.2.686 Matt as MATERNAL [phone] [facility] & CHILD [address] [place] [address] 2019-12-29 2019-12-29 Outpatient R FLOYD [facility] [id number] Univers 12:45:00 12:45:00 JACOB oh o f [facility] 2019-12-15 2019-12-15 Emergency [facility] 1.2.343.575 [id number] Univers 07:30:05 08:20:00 Fletcher [place] 350.1.13.10 i ty [facility] 4.2.7.2.686 [place] [phone] [address] 2019-12-14 2019-12-[address] [facility] 1.2.840.114 [id number] Univers 00:00:00 00:00:00 Secure Msg , Ethel [employer] 350.1.13.10 ity of [facility] 4.2.7.2.686 Matt as MATERNAL [phone] [facility] & CHILD [address] [place] [address] 2019-11-30 2019-11-30 Outpatient R [facility] [id number] Univers 08:30:00 08:30:00 ity of [facility] 2019-11-27 2019-11-27 Outpatient R [facility] [id number] Univers 09:30:00 09:30:00 ity of [facility] 2019-11-26 2019-11-26 Outpatient R [facility] [id number] Univers 09:00:00 09:00:00 ity of [facility] 2019-11-26 2019-11-[address] [facility] 1.2.948.327 [id number] Univers 00:00:00 00:00:00 Rosleobardoa R [employer] 350.1.13.10 ity of [facility] 4.2.7.2.686 Matt as MATERNAL [phone] [facility] & CHILD [address] [place] [address] 2019-11-24 2019-11-24 Outpatient R EMANUEL, [facility] [id number] Univers 09:30:00 09:30:00 FLORIDALMA oh o f [facility] 2019-11-03 2019-11-03 Outpatient Raju_P MMG G [id number] [place] 05:13:00 05:13:00 0324 Medical [facility] 2019-10-27 2019-10-[address] [facility] 1.2.840.114 [id number] Univers 00:00:00 00:00:00 Secure Msg Jacob R [employer] 350.1.13.10 ity of [facility] 4.2.7.2.686 Matt as MATERNAL [phone] [facility] & [address] 2019-10-16 2019-10-16 [facility] 1.2.335.418 [id number] Univers 10:45:40 11:26:43 Visit Floridalma Curry [employer] 350.1.13.10 ity of [facility] 4.2.7.2.686 Matt as MATERNAL [phone] [facility] & [address] 2019-10-16 2019-10-16 Outpatient R EMANUEL, [facility] [id number] Univers 10:45:00 10:45:00 FLORIDALMA oh o f [facility] 2019-10-07 2019-10-07 Office [facility] 1.2.222.514 [id number] Univers 12:51:31 13:44:17 Visit Floridalma C [employer] 350.1.13.10 ity of [facility] 4.2.7.2.686 Matt as MATERNAL [phone] [facility] ical & CHILD [address] [place] [address] 2019-10-07 2019-10-07 Outpatient R EMANUEL [facility] [id number] Univers 13:00:00 13:00:00 FLORIDALMA ity o f [facility] 2019-10-06 2019-10-06 Telephone [facility] 1.2.840.114 [id number] Univers 00:00:00 00:00:00 Floridalma C [employer] 350.1.13.10 ity of [facility] 4.2.7.2.686 Matt as MATERNAL [phone] [facility] & CHILD [address] [place] [address] 2019-10-02 2019-10-02 [facility] 1.2.900.187 [id number] Univers 14:07:49 15:15:37 Visit Floridalma C [employer]URE IN[employer] 350.1.13.10 ity of [facility] 4.2.7.2.686 Matt as MATERNAL [phone] [facility] & CHILD [address] [place] [address] 2019-08-25 2019-08-25 Office [facility] 1.2.549.482 [id number] Univers 09:57:53 13:09:26 Visit Floridalma C [employer] IN[employer] 350.1.13.10 ity of [facility] 4.2.7.2.686 Matt as MATERNAL [phone] [facility] & CHILD [address] [place] [address] 2019-08-25 2019-08-25 Orders Doctor HADLEY 1.2.840.114 [id number] Univers 00:00:00 00:00:00 Only Unassigned, LEIGHA 350.1.13.10 ity of [place] [facility] 4.2.7.2.686 Matt as [phone] [address] 2019-08-25 2019-08-25 Letter [facility] 1.2.077.816 [id number] Univers 00:00:00 00:00:00 (Out) Floridalma C [employer]URE IN[employer] 350.1.13.10 ity of [facility] 4.2.7.2.686 Matt as MATERNAL [phone] Med ical & CHILD 107 [facility] 2019-03-05 2019-03-05 Emergency OMAYRA Pace 1.2.893.914 [id number] Univers 22:28:42 23:12:00 Alvin Castro 350.1.13.10 i ty [facility] 4.2.7.2.686 [place] [phone] [address] Results Test Description Test Time Test Comments Results Result Comments Source POCT TEST 2022-09-21 15:47:00 Test Item Value Reference Range Interpretation Comme nts POCT PREG (test code = 1605) Negative On board controls acceptable with C Line (test code = 3574) Yes POCT PREG LOT # (test code = 3575) PO[facility] (test code = 3576[id number] 15:47:00 Test Item Value Reference Range Interpretation Comments POCT PREG (test code = 1605) Negative On board controls acceptable with C Yes Line (test code = 3574) POCT PREG LOT # (test code = 3575) POCT PREG TEST DATE (test code = 3576) [facility] [id number] 14:24:00 Test Item Value Reference Range Interpretation Comments POCT PREG (test code = 1605) Negative On board controls acceptable with C Yes Line (test code = 3574) POCT PREG LOT # (test code = 3575) POCT PREG TEST DATE (test code = 3576) [facility] [id number] 14:24:00 Test Item Value Reference Range Interpretation Comments POCT PREG (test code = 1605) Negative On board controls acceptable with C Yes Line (test code = 3574) POCT PREG LOT # (test code = 3575) POCT PREG TEST DATE (test code = 3576) [facility]
[2022-09-27] MEDS ORDERED: METHYLPREDNISOLONE 40 MG INJ ONE (01:19)
[2022-09-27] MEDS ORDERED: IPRATROPIUM BROM 0.5MG/2.5ML ONE (01:20)
[2022-09-27] MEDS ORDERED: ALBUTEROL 2.5 MG/3 ML NEB SOL ONE (01:20)
[2022-09-27 01:21] LABS: Absolute Lymphocytes (CBC) 3.4 K/uL (0.7-4.9); Hematocrit 36.7 % (36.0-45.0); Lymphocytes % 34.7 % (15.3-44.8); MCV 90.5 fL (80-100); MPV 9.4 fL (7.6-11.3); RBC Red Blood Cell Count 4.06 M/uL (3.86-4.86)
[2022-09-27 01:31] LABS: Urine Blood Negative (Negative); Urine Glucose Negative (Negative); Urine Protein Negative (Negative); Urine Specific Gravity 1.015 (1.005-1.030)
[2022-09-27 01:44] LABS: Potassium 2.8 mmol/L (3.5-5.1)
[2022-09-27] MEDS ORDERED: KCL 20 MEQ/100 mL IVPB 100 ML IV ONE (02:06)
[2022-09-27] MEDS ORDERED: NA CHLORIDE 0.9% 1,000 ML ONE (02:06)
[2022-09-27] MEDS ORDERED: POTASSIUM 25 MEQ EFFERV TAB ONE (02:06)
[2022-09-27 02:09] LABS: Urine Specific Gravity/Preg 1.015 (1.005-1.030)
[2022-09-27] MEDS ORDERED: KETOROLAC 30 MG/ML INJ ONE (02:28)
--- NOTE | 2022-09-27 05:45 | ER ---
Nurse's Notes [facility] Name: Maylin Zuniga Age: 22 yrs Sex: Female : 2000 Arrival Date: 09/27/2022 Time: 00:22 Bed 4 Private MD: Diagnosis: Shortness of breath;Hypokalemia;Dorsalgia, unspecified Presentation: 09/27 00:28 Chief complaint: Patient states: It started on Saturday and I came in yesterday for it kd3 and got an X-ray and a breathing treatment and i feel like my difficulty breathing has just gotten worse. I am not coughing anything up. Coronavirus screen: Vaccine status: Patient reports receiving the 2nd dose of the covid vaccine. Ebola Screen: No symptoms or risks identified at this time. Initial Sepsis Screen: Does the patient meet any 2 criteria? No. Patient's initial sepsis screen is negative. Does the patient have a suspected source of infection? No. Patient's initial sepsis screen is negative. Risk Assessment: Do you want to hurt yourself or someone else? Patient reports no desire to harm self or others. Onset of symptoms was September 27, 2022. 00:28 Method Of Arrival: Ambulatory kd3 00:28 Acuity: VINNY 3 kd3 Triage Assessment: 00:30 General: Appears uncomfortable, Behavior is crying. Pain: Denies pain. Respiratory: kd3 Reports shortness of breath at rest Onset: The symptoms/episode began/occurred gradually, the patient has moderate shortness of breath. 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 - Social history:: Smoking status: Patient denies any tobacco usage or history of. Screenin:04 [facility] ED Fall Risk Assessment (Adult) History of falling in the last 3 months, jb4 including since admission No falls in past 3 months (0 pts) Confusion or Disorientation No (0 pts) Score/Fall Risk Level 0 - 2 = Low Risk Oriented to surroundings, Maintained a safe environment. Abuse screen: Denies threats or abuse. Nutritional screening: No deficits noted. Tuberculosis screening: No symptoms or risk factors identified. Assessment: 00:45 General: Appears in no apparent distress. comfortable, Behavior is calm, cooperative, jb4 appropriate for age. Pain: Complains of pain in back Pain does not radiate. Pain currently is 4 out of 10 on a pain scale. Neuro: Level of Consciousness is awake, alert, obeys commands, Oriented to person, place, time, situation. Cardiovascular: Patient's skin is warm and dry. Respiratory: Airway is patent Respiratory effort is even, unlabored, Respiratory pattern is regular, symmetrical. GI: No signs and/or symptoms were reported involving the gastrointestinal system. : No signs and/or symptoms were reported regarding the genitourinary system. EENT: No signs and/or symptoms were reported regarding the EENT system. Derm: Skin is intact, Skin is pink, warm \T\ dry. Musculoskeletal: Circulation, motion, and sensation intact. Range of motion: intact in all extremities. 02:00 Reassessment: Patient appears in no apparent distress at this time. Patient and/or jb4 family updated on plan of care and expected duration. Pain level reassessed. Patient is alert, oriented x 3, equal unlabored respirations, skin warm/dry/pink. 03:00 Reassessment: Patient appears in no apparent distress at this time. Patient and/or jb4 family updated on plan of care and expected duration. Pain level reassessed. Patient is alert, oriented x 3, equal unlabored respirations, skin warm/dry/pink. 04:00 Reassessment: Patient appears in no apparent distress at this time. Patient and/or jb4 family updated on plan of care and expected duration. Pain level reassessed. Patient is alert, oriented x 3, equal unlabored respirations, skin warm/dry/pink. 05:00 Reassessment: Patient appears in no apparent distress at this time. Patient and/or jb4 family updated on plan of care and expected duration. Pain level reassessed. Patient is alert, oriented x 3, equal unlabored respirations, skin warm/dry/pink. 06:00 Reassessment: Patient appears in no apparent distress at this time. Patient and/or jb4 family updated on plan of care and expected duration. Pain level reassessed. Patient is alert, oriented x 3, equal unlabored respirations, skin warm/dry/pink. Vital Signs: 00:26 BP 140 / 98; Pulse 75; Resp 18; Temp 98.4(O); Pulse Ox 98% ; Weight 74.84 kg; Height 5 kd3 ft. 5 in. (165.10 cm); 02:45 BP 146 / 64; Pulse 89; Resp 21; Pulse Ox 100% on R/A; jb4 03:30 BP 141 / 70; Pulse 73; Resp 16; Pulse Ox 100% on R/A; jb4 04:30 BP 131 / 86; Pulse 72; Resp 16; Pulse Ox 100% on R/A; jb4 00:26 Body Mass Index 27.46 (74.84 kg, 165.10 cm) kd3 ED Course: 00:22 Patient arrived in ED. ja2 00:25 Thomas Nieto PA is PHCP. cp 00:25 Toy Bradshaw MD is Attending Physician. cp 00:30 Triage completed. kd3 00:30 Arm band placed on right wrist. kd3 00:59 Abdoul Walker, BILLIE is Primary Nurse. jb4 01:11 Initial lab(s) drawn, by ia, sent to lab. Inserted saline lock: 22 gauge in left jb4 antecubital area, using aseptic technique. Blood collected. 01:44 Notified Nurse Practitioner and/or Physician [employer] of a critical lab result(s), bb potassium of 2.8 Thomas ALCANTARA notified. 02:42 CT Chest For PE Angio In Process Unspecified. EDMS 06:04 Patient has correct armband on for positive identification. Placed in gown. Bed in low jb4 position. Call light in reach. Side rails up X 1. 06:04 No provider procedures requiring assistance completed. IV discontinued, intact, jb4 bleeding controlled, No redness/swelling at site. Pressure dressing applied. Administered Medications: 00:48 CANCELLED (Physician Discretion): predniSONE 60 mg PO once cp 01:27 Drug: Albuterol 2.5 mg Route: Inhalation; jb4 01:27 Drug: AtroVENT (ipratropium) Aerosol 0.5 mg Route: Inhalation; jb4 01:44 Drug: SOLU-Medrol (methylPrednisoLONE) 80 mg Route: IVP; Site: left antecubital; jb4 02:50 Drug: Ketorolac 15 mg Route: IVP; Site: left antecubital; jb4 03:36 Follow up: Response: No adverse reaction; Marked relief of symptoms jb4 02:51 Drug: Potassium Effervescent Tablet 50 mEq Route: PO; jb4 02:51 Drug: Potassium Chloride 20 mEq Route: IV; Rate: calculated rate; Site: left jb4 antecubital; 02:51 Drug: NS 0.9% 1000 ml Route: IV; Rate: 500 ml/hr; Site: left antecubital; jb4 Outcome: 05:44 Discharge ordered by . kdr 06:04 Discharged to home ambulatory. jb4 06:04 Condition: stable 06:04 Discharge instructions given to patient, Instructed on discharge instructions, follow up and referral plans. medication usage, Demonstrated understanding of instructions, follow-up care, medications, Prescriptions given X 4. 06:04 Patient left the ED. jb4 Signatures: Dispatcher [employer] EDMS Toy Bradshaw MD MD kdr Ballard, Brenda RN RN bb Thomas Nieto PA PA cp Bryson, James, RN RN jb4 Eliza House Kyli RN RN kd3 Corrections: (The following items were deleted from the chart) 02:51 02:50 Ketorolac 15 mg IVP in right antecubital jb4 jb4 02:51 02:51 NS 0.9% 1000 ml IV at 500 ml/hr in right antecubital jb4 jb4
--- NOTE | 2022-09-27 05:45 | EDPHYS ---
Physician Documentation [facility] Name: Maylin Zuniga Age: 22 yrs Sex: Female : 2000 Arrival Date: 09/27/2022 Time: 00:22 Bed 4 Private MD: ED Physician Toy Bradshaw HPI: 09/27 00:48 This 22 yrs old Female presents to ER via Ambulatory with complaints of cp Breathing Difficulty. 00:48 The patient has shortness of breath at rest. cp 00:48 Onset: The symptoms/episode began/occurred yesterday. Duration: The symptoms are cp intermittent. Associated signs and symptoms: Pertinent positives: left mid back pain, Pertinent negatives: chest pain, productive cough, diaphoresis, fever, nausea, vomiting. Severity of symptoms: in the emergency department the symptoms are unchanged despite home interventions. The patient has been recently seen at the [facility] Emergency Department, yesterday, for similar complaints X-rays were performed, tested with negative results for COVID-19. 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 - Social history:: Smoking status: Patient denies any tobacco usage or history of. ROS: 00:55 Constitutional: Negative for body aches, chills, fever, poor PO intake. cp 00:55 Eyes: Negative for injury, pain, redness, and discharge. cp 00:55 ENT: Negative for drainage from ear(s), ear pain, sore throat, difficulty swallowing, difficulty handling secretions. 00:55 Cardiovascular: Negative for edema, palpitations. 00:55 Respiratory: Positive for shortness of breath, at rest. 00:55 Back: Positive for pain at rest, of the left scapular area and left subscapular area. 00:55 MS/extremity: Negative for injury or acute deformity, pain, swelling, tenderness. 00:55 Abdomen/GI: Negative for abdominal pain, vomiting, diarrhea, constipation. cp 00:55 Neuro: Negative for altered mental status, dizziness, headache, syncope, weakness. 00:55 All other systems are negative. Exam: 01:00 Constitutional: The patient appears in no acute distress, alert, awake, cp non-diaphoretic, non-toxic, well developed, well nourished. 01:00 Head/Face: Normocephalic, atraumatic. cp 01:00 Eyes: Periorbital structures: appear normal, Conjunctiva: normal, no exudate, no injection, Sclera: no appreciated abnormality, Lids and lashes: appear normal, bilaterally. 01:00 ENT: External ear(s): are unremarkable, Ear canal(s): are normal, clear, TM's: dullness, bilaterally, Nose: is normal, Mouth: Lips: moist, Oral mucosa: pink and intact, moist, Posterior pharynx: is normal, airway is patent, no erythema, no exudate. 01:00 Neck: ROM/movement: is normal, is supple, without pain, no range of motions limitations. 01:00 Chest/axilla: Inspection: normal. 01:00 Cardiovascular: Rate: normal, Rhythm: regular, Edema: is not appreciated, JVD: is not appreciated. 01:00 Respiratory: the patient does not display signs of respiratory distress, Respirations: normal, no use of accessory muscles, no retractions, labored breathing, is not present, Breath sounds: bronchial sounds, that are mild, are heard diffusely, decreased breath sounds, are not appreciated, stridor, is not appreciated. 01:00 Abdomen/GI: Exam negative for discomfort, distension, guarding, Inspection: abdomen appears normal. 01:00 Back: pain, that is mild, of the left scapular area and left subscapular area, ROM is normal. 01:00 Musculoskeletal/extremity: DVT Exam: No signs of deep vein thrombosis. 01:00 Neuro: Orientation: to person, place \T\ time. Mentation: is normal, Motor: moves all fours, strength is normal, Sensation: is normal. 01:08 ECG was reviewed by the Attending Physician. cp Vital Signs: 00:26 BP 140 / 98; Pulse 75; Resp 18; Temp 98.4(O); Pulse Ox 98% ; Weight 74.84 kg; Height 5 kd3 ft. 5 in. (165.10 cm); 02:45 BP 146 / 64; Pulse 89; Resp 21; Pulse Ox 100% on R/A; jb4 03:30 BP 141 / 70; Pulse 73; Resp 16; Pulse Ox 100% on R/A; jb4 04:30 BP 131 / 86; Pulse 72; Resp 16; Pulse Ox 100% on R/A; jb4 00:26 Body Mass Index 27.46 (74.84 kg, 165.10 cm) kd3 MDM: 00:32 Patient medically screened. cp 02 00:48 Order name: CBC with Diff; Complete Time: 01:50 cp 09/27 00:48 Order name: BMP; Complete Time: 01:50 cp 09/27 01:51 Interpretation: Normal except: K 2.8; Reviewed. cp 09/27 00:48 Order name: D-Dimer; Complete Time: 01:50 cp 09/27 01:51 Interpretation: Reviewed. cp 09/27 00:48 Order name: BNP; Complete Time: 01:50 cp 09/27 01:31 Order name: Urine Dipstick-Ancillary; Complete Time: 01:50 EDMS 09/27 01:51 Interpretation: Normal except: UKET 1+. cp 09/27 01:35 Order name: Test Urine - POC; Complete Time: 02:22 jb4 09/27 02:23 Interpretation: Reviewed. cp 09/27 01:56 Order name: CT Chest For PE Angio cp 09/27 00:45 Order name: Urine Dipstick-Ancillary (obtain specimen); Complete Time: 01:44 cp 09/27 00:45 Order name: Urine Test (obtain specimen); Complete Time: 01:44 cp 09/27 00:45 Order name: EKG; Complete Time: 00:46 cp 09/27 00:45 Order name: EKG - Nurse/Tech; Complete Time: 01:04 cp 09/27 00:48 Order name: IV; Complete Time: 01:27 cp EC:08 Rate is 74 beats/min. Rhythm is regular. PA interval is normal. QRS interval is normal. cp QT interval is normal. T waves are Inverted in leads V2, V3, V4. Interpreted by me. Reviewed by me. Administered Medications: 00:48 CANCELLED (Physician Discretion): predniSONE 60 mg PO once cp 01:27 Drug: Albuterol 2.5 mg Route: Inhalation; jb4 01:27 Drug: AtroVENT (ipratropium) Aerosol 0.5 mg Route: Inhalation; jb4 01:44 Drug: SOLU-Medrol (methylPrednisoLONE) 80 mg Route: IVP; Site: left antecubital; jb4 02:50 Drug: Ketorolac 15 mg Route: IVP; Site: left antecubital; jb4 03:36 Follow up: Response: No adverse reaction; Marked relief of symptoms jb4 02:51 Drug: Potassium Effervescent Tablet 50 mEq Route: PO; jb4 02:51 Drug: Potassium Chloride 20 mEq Route: IV; Rate: calculated rate; Site: left jb4 antecubital; 02:51 Drug: NS 0.9% 1000 ml Route: IV; Rate: 500 ml/hr; Site: left antecubital; jb4 Disposition: 05:44 Co-signature as Attending Physician, Toy Bradshaw MD I agree with the assessment and kdr plan of care. Disposition Summary: 09/27/22 05:44 Discharge Ordered Location: Home kdr Problem: new kdr Symptoms: have improved kdr Condition: Stable kdr Diagnosis - Shortness of breath kdr - Hypokalemia kdr - Dorsalgia, unspecified kdr Followup: cp - With: Private Physician - When: 1 - 2 days - Reason: Recheck today's complaints Discharge Instructions: - Discharge Summary Sheet cp - Acute Back Pain, Adult cp - Potassium Content of Foods cp - Shortness of Breath, Adult cp - Hypokalemia cp Forms: - Medication Reconciliation Form kdr - Thank You Letter kdr - Antibiotic Education kdr - Prescription Opioid Use kdr - Work release form jb4 - Family Work Release jb4 Prescriptions: - albuterol sulfate 90 mcg/actuation Inhalation HFA aerosol inhaler - inhale 1 puff by INHALATION route every 4-6 hours; 1 Inhaler; Refills: 0, cp Product Selection Permitted - Ibuprofen 800 mg Oral Tablet - take 1 tablet by ORAL route every 8 hours As needed take with food; 30 tablet; cp Refills: 0, Product Selection Permitted - Prednisone 20 mg Oral Tablet - take 2 tablets by ORAL route once daily for 5 days; 10 tablet; Refills: 0, cp Product Selection Permitted - Potassium Chloride 10 mEq Oral capsule, extended release - take 2 tablet by ORAL route once daily; 6 tablet; Refills: 0, Product Selection cp Permitted Signatures: Dispatcher [employer] EDToy Marquez MD MD kdr Thomas Nieto PA PA cp Abdoul Walker RN RN jb4 Shawanda Thompson RN RN kd3 Corrections: (The following items were deleted from the chart) 00:48 00:46 predniSONE 60 mg PO once ordered. cp cp
[2022-09-27 06:27] VITALS: TEMP 98.4
[2022-09-27 06:28] VITALS: O2SAT 100
[2022-09-27 06:30] VITALS: BP 131/86
--- NOTE | 2022-09-27 11:51 | EKG ---
Test Date: 2022-09-27 Test Time: 01:02:34 [place] Man: ED MEASUREMENT RESULTS: Intervals: Rate: 74 KS: 114 QRSD: 88 QT: 398 QTc: 441 Downs: P: 44 KS: 114 QRS: 82 T: 16 INTERPRETIVE STATEMENTS: Sinus rhythm with premature atrial complexes Nonspecific T wave abnormality Abnormal ECG Compared to ECG 03/15/2021 11:58:09 Atrial premature complex(es) now present Sinus arrhythmia no longer present T-wave abnormality still present Electronically Signed On 09-27-22 11:50:51 TELEPHONE SEX WORKER by Heri Lawton
--- NOTE | 2022-09-27 15:06 | RAD REPORT ---
EXAM DESCRIPTION: Chest For Pe Angio CLINICAL HISTORY: 22 years Female back pain COMPARISON: Chest x-ray 09/26/2022. TECHNIQUE: Intravenous low osmolar contrast. Coronal and sagittal reformations including 3D maximu m intensity projections. This exam was performed according to our departmental dose-optimization program, which includes autom ated exposure control, adjustment of the mA and/or kV according to patient size and/or use of iterati ve reconstruction technique. FINDINGS: PULMONARY ARTERIAL SYSTEM: Contrast bolus is adequate. No CT evidence for pulmonary emb olism. CARDIAC: Normal. AORTA/VASCULAR: No aneurysm. LYMPH NODES/MEDIASTINUM: No thoracic adenopathy. CENTRAL AIRWAYS: Central airways are patent. LUNGS: No pulmonary infiltrates or masses. PLEURA: Normal. ESOPHAGUS: Collapsed and not well assessed by CT, without obvious abnormality. THYROID: Negative, where seen. CHEST WALL: Normal. UPPER ABDOMEN: No acute findings. THORACIC SKELETAL: No acute finding. ADDITIONAL CHEST FINDINGS: None. IMPRESSION: 1. No evidence of acute pulmonary embolus. 2. No acute thoracic findings. Electronically signed by: La Dupont MD 09/27/2022 3:04 AM ANALYTICS INTERN Due to temporary technical issues with the PACS/Fluency reporting system, reports are being signed by the in house radiologists without review as a courtesy to insure prompt reporting. The interpreting radiologist is fully responsible for the content of the report.
== END 2022-09-27 06:04 | disposition home or self-care (01) ==
LOC: ER 00:18
DX: R06.02 Shortness of breath (principal); E87.6 Hypokalemia; M54.9 Dorsalgia, unspecified
CPT/HCPCS: 93005; 85025; 80048; 36415; 81025; 85379; 81003; 83880; 71275; 96375; 96374; 99284; Q9967; J7613; J7644; J3480; J7030; J2920

== ENCOUNTER 2023-01-13 19:11 | Emergency (ER) | payer OTHER ==
--- OUTSIDE RECORDS SUMMARY | 2023-01-13 19:17 | XMS REPORT | Continuity of Care Document ---
:2000 Author Organization [facility] t Address [address] [place] [address] [place] [id number] Care Team Providers Name Role Phone LESLIE LEDBETTER Primary Care Physician Unavailable ELIZA BOWERS Attending Clinician Unavailable LESLIE LEDBETTER Attending Clinician Unavailable Emanuel Leslie CLEMENT Attending Clinician [phone], [facility] Attending Clinician Unavailable Eliza Heller Attending Clinician YAW LEIVA Attending Clinician Unavailable Yaw Leiva DO Attending Clinician [facility] Attending Clinician Unavailable Unknown, Attending Attending Clinician Unavailable UNKNOWN, ATTENDING Attending Clinician Unavailable BAILEE LIZ Attending Clinician Unavailable Doctor Unassigned, [place] Attending Clinician Unavailable Carla Franklin CNM Attending Clinician CARLA FRANKLIN Attending Clinician Unavailable Provider, Banneralfredo Temp Attending Clinician Unavailable ROSALES CHAPIN Attending Clinician Unavailable ROSALES CHAPIN Attending Clinician Unavailable ROSALES KIMBALL Attending Clinician Unavailable Jacob Joseph Attending Clinician JACOB BARRIENTOS Attending Clinician Unavailable Visit, [facility] Nurse Attending Clinician Unavailable ALIVIA ERNANDEZ Attending Clinician Unavailable Alivia Swanson Attending Clinician CINDY APARICIO Attending Clinician Unavailable Robert WISE, Rayne Godoy Attending Clinician Unavailable NI ALVAREZ Attending Clinician Unavailable Joel Matt DO Attending Clinician Elena Lara Attending Clinician [facility] Attending Clinician Unavailable ELENA HATFIELD Attending Clinician Unavailable Fletcher Ramesh MD Attending Clinician Frank WISE, Ethel Attending Clinician Unavailable Raju_P Attending Clinician Unavailable Alvin Nobles Attending Clinician YAW LEIVA Admitting Clinician Unavailable Radha_Alfredo Admitting Clinician Unavailable Payers Payer Name Policy Type Policy Number Effective Date Expiration Date [facility] [id number] 2020 [facility] ST[facility] 00:00:00 [facility] [id number] 2019 00:00:00 [place] [id number] 2019 00:00:00 Problems Condition Condition Condition Status Onset Resolution Last Treating Co mments Source Name Details Category Date Date Treatment Clinician Date Chlamydia Chlamydia Disease Active Uni vers trachomati trachomati 2-13 it y of s s 00:00: [place] infection infection 00 Medi danni of lower of lower Branch genitourin genitourin jeremy sites jeremy sites Need for Need for Disease Active Unive rs prophylact prophylact 3-24 it y of ic ic 00:00: [place] vaccinatio vaccinatio 00 Me dical n and n and Branch inoculatio inoculatio n against n against influenza influenza Feeling Feeling Disease Active Univers sad sad 5-21 ity of 00:00: [place] [address] Medical Branch Encounter Encounter Disease Active Uni vers for other for other 5-07 ity of general general 00:00: [place] counseling counseling 00 Me dical or advice or advice Bran ch on on contracept contracept ion ion Absence of Absence of Disease Active U nivers menstruati menstruati 3-24 it y of on on 00:00: [place] [address] Medical Branch Breast Breast Disease Active Univers tenderness tenderness 3-24 it y of in female [facility] Class 1 Class 1 Disease Active Univers obesity obesity 3-24 ity of due to due to 00:00: [place] excess excess 00 Medical calories calories Branch with with serious serious comorbidit comorbidit y and body y and body mass index mass index (BMI) of (BMI) of 34.0 to 34.0 to 34.9 in 34.9 in adult adult BMI BMI Disease Active Univers 34.0-34.9, 34.0-34.9, 3-24 it y of adult adult 00:00: [place] [facility] Elevated Elevated Disease Active Unive rs blood blood 2-21 ity of pressure pressure 00:00: [place] reading reading 00 Medical without without Branch diagnosis diagnosis of of hypertensi hypertensi on on Other Other Disease Active Univers depression depression -09 it y of 00:00: [place] [facility] Nexplanon Nexplanon Disease Active Uni vers removal removal - ity of 00:00: [place] [address] Medical Branch Screening Screening Disease Active Uni vers examinatio examinatio 08-20 it y of n for STD n for STD 00:00: [place] s (sexually (sexually 00 Medi danni transmitte transmitte Br anch d disease) d disease) BMI BMI Disease Active 2018-08 Univers 27.0-27.9, 27.0-27.9, 0-16 it y of adult adult 00:00: [place] [facility] BMI BMI Disease Active 2018-08 Univers 29.0-29.9, 29.0-29.9, 0-16 it y of adult adult 00:00: [place] [facility] Branch HPV HPV Disease Active 2018-08 Univers vaccine vaccine 0-16 ity of counseling counseling 00:[place] [facility] [place] Over Over Disease Active 2018-08 Univers weight weight 0-16 ity of 00:00: [place] [address] Medical Branch Lump or Lump or Disease Active Univers mass in mass in 4-13 ity of breast breast 00:00: [place] [address] Medical Branch Allergies, Adverse Reactions, Alerts Allergy Allergy Status Severity Reaction(s) Onset Inactive Treating Comm ents Source Name Type Date Date Clinician NO KNOWN Drug Active Univers ALLERGIE Class ity of [facility] [place] [facility] Social History Social Habit Start Date Stop Date Quantity Comments Source Exposure to 2022-12-24 2023-01-03 Not sure University of SARS-CoV-2 (event) 00:00:00 09:29:00 [place] [facility] Alcohol intake 2023-01-03 2023-01-03 Current drinker Unive rsity of 00:00:00 00:00:00 of alcohol [place] [facility] (finding) Branch History SDOH 2023-01-01 2023-01-01 1 University o f Alcohol Frequency 00:00:00 00:00:00 [place] M edical Branch History SDOH 2023-01-01 2023-01-01 0 University o f Alcohol Std Drinks 00:00:00 00:00:00 [place] [facility] History SDOH 2023-01-01 2023-01-01 1 University o f Alcohol Binge 00:00:00 00:00:00 [place] Medic al [facility] History SDOH Social 2023-01-01 2023-01-01 4 Unive rsity of Connections Phone 00:00:00 00:00:00 [place] M edical Branch History SDOH Social 2023-01-01 2023-01-01 2 Unive rsity of Connections Get 00:00:00 00:00:00 [place] Med ical Together Branch History SDOH Social 2023-01-01 2023-01-01 3 Unive rsity of Connections Uatsdin 00:00:00 00:00:00 [place] [facility] History SDOH Social 2023-01-01 2023-01-01 2 Unive rsity of Connections 00:00:00 00:00:00 [place] [facility] Membership Branch History SDOH Social 2023-01-01 2023-01-01 1 Unive rsity of Connections 00:00:00 00:00:00 [place] [facility] Meetings Branch History SDOH Social 2023-01-01 2023-01-01 7 Unive rsity of Connections Living 00:00:00 00:00:00 [place] [facility] History SDOH 2023-01-01 2023-01-01 1 University o f Physical Activity 00:00:00 00:00:00 [place] M edical DPW Branch History SDOH 2023-01-01 2023-01-01 3 University o f Physical Activity 00:00:00 00:00:00 [place] M edical MPS Branch History SDOH Stress 2023-01-01 2023-01-01 5 Unive rsity of 00:00:00 00:00:00 [place] [facility] History SDOH 2023-01-01 2023-01-01 4 University o f Financial 00:00:00 00:00:00 [place] [facility] History SDOH Food 2023-01-01 2023-01-01 1 Univers ity of Worry 00:00:00 00:00:00 [place] [facility] History SDOH Food 2023-01-01 2023-01-01 2 Univers ity of Scarcity 00:00:00 00:00:00 [place] [facility] History SDOH 2023-01-01 2023-01-01 2 University o f Transport Med 00:00:00 00:00:00 [place] Medic al Branch History SDOH 2023-01-01 2023-01-01 2 University o f Transport Non-Med 00:00:00 00:00:00 [place] M edical Branch History SDOH 2023-01-01 2023-01-01 2 University o f Housing Unable to 00:00:00 00:00:00 [place] M edical Pay Branch History SDOH 2023-01-01 2023-01-01 1 University o f Housing Places 00:00:00 00:00:00 [place] Medi danni Lived Branch History SDOH 2023-01-01 2023-01-01 2 University o f Housing Homeless 00:00:00 00:00:00 [place] Me dical Last Year Branch Tobacco use and 2022-12-27 2022-12-27 Smokeless Universit y of exposure 00:00:00 00:00:00 tobacco non-user [facility] dical Branch Alcohol Comment 2021-11-02 2021-11-02 social Universit y of 00:00:00 00:00:00 [facility] Sex Assigned At [birth year] Universit y of 00:00:00 00:00:00 [facility] Smoking Status Start Date Stop Date Source Never smoked tobacco [facility] Medications Ordered Filled Start Stop Current Ordering Indication Dosage Frequency Signature Comments Components Source Medication Medication Date Date Medication? Clinician (SIG) Name Name SERTraline Yes [id number] 25mg Take 1 Univers 25 mg 5-25 tablet by ity of tablet 00:00: mouth in [place] 00 the Medical morning. Branch SERTraline Yes [id number] 25mg Take 1 Univers 25 mg 5-25 tablet by ity of tablet 00:00: mouth in [place] 00 the Medical morning. Branch SERTraline 2022-0 Yes [id number] 25mg Take 1 Univers 25 mg 5-25 tablet by ity of tablet 00:00: mouth in [place] the morning. Branch SERTraline 2022-0 Yes [id number] 25mg Take 1 Univers 25 mg 5-25 tablet by ity of tablet 00:00: mouth in [place] the morning. Branch SERTraline 2022-0 Yes [id number] 25mg Take 1 Univers 25 mg 5-25 tablet by ity of tablet 00:00: mouth in [place] the morning. Branch SERTraline 2022-0 Yes [id number] 25mg Take 1 Univers 25 mg 5-25 tablet by ity of tablet 00:00: mouth in [place] the morning. Branch SERTraline 2022-0 Yes [id number] 25mg Take 1 Univers 25 mg 5-25 tablet by ity of tablet 00:00: mouth in [place] the morning. Branch naproxen 2022- Yes [id number] 500mg Take 1 Univers (NAPROSYN) 5-25 06-05 tablet by ity of 500 mg 00:00: 04:59 mouth in [place] tablet 00 :00 the morning Branch and 1 tablet in the evening. Take with meals. Do all this for 10 days. naproxen 2022- Yes [id number] 500mg Take 1 Univers (NAPROSYN) 5-25 06-05 tablet by ity of 500 mg 00:00: 04:59 mouth in [place] tablet 00 :00 the morning Branch and 1 tablet in the evening. Take with meals. Do all this for 10 days. naproxen 2022- Yes [id number] 500mg Take 1 Univers (NAPROSYN) 5-25 06-05 tablet by ity of 500 mg 00:00: 04:59 mouth in [place] tablet 00 :00 the morning Branch and 1 tablet in the evening. Take with meals. Do all this for 10 days. naproxen 2022- Yes [id number] 500mg Take 1 Univers (NAPROSYN) 5-25 06-05 tablet by ity of 500 mg 00:00: 04:59 mouth in [place] tablet 00 :00 the Medical morning Branch and 1 tablet in the evening. Take with meals. Do all this for 10 days. naproxen 2022-0 2022- Yes [id number] 500mg Take 1 Univers (NAPROSYN) 5-25 06-05 tablet by ity of 500 mg 00:00: 04:59 mouth in [place] tablet 00 :00 the Medical morning Branch and 1 tablet in the evening. Take with meals. Do all this for 10 days. naproxen 2022-0 2022- Yes [id number] 500mg Take 1 Univers (NAPROSYN) 5-25 06-05 tablet by ity of 500 mg 00:00: 04:59 mouth in [place] tablet 00 :00 the [facility] morning Branch and 1 tablet in the evening. Take with meals. Do all this for 10 days. naproxen 2022-0 2022- Yes [id number] 500mg Take 1 Univers (NAPROSYN) 5-25 06-05 tablet by ity of 500 mg 00:00: 04:59 mouth in [place] tablet 00 :00 the [facility] and 1 tablet in the evening. Take with meals. Do all this for 10 days. iopamidol 2022- Yes [id number] 100mL 100 mL, Univers (ISOVUE 5-19 05-19 Intravenou ity o f 370-500 mL) 03:00: 03:00 s, ONCE, 1 [place] injection 00 :00 dose, On Medica l 100 mL Kassy Towson 12/27/22 at 2200, Routine norelgestro 2023-0 Yes [id number] 1{patch Apply 1 Univers min-ethinyl 5-11 } Patch to ity of estradiol 00:00: [facility]) 00 weekly. Medical 150-35 Branch mcg/24 hr patch norelgestro 2023-0 Yes [id number] 1{patch Apply 1 Univers min-ethinyl 5-11 } Patch to ity of estradiol 00:00: [facility]) 00 weekly. Medical 150-35 Branch mcg/24 hr patch norelgestro 2023-0 Yes [id number] 1{patch Apply 1 Univers min-ethinyl 5-11 } Patch to ity of estradiol 00:00: [facility]) 00 weekly. Medical 150-35 Branch mcg/24 hr patch norelgestro 2023-0 Yes [id number] 1{patch Apply 1 Univers min-ethinyl 5-11 } Patch to ity of estradiol 00:00: [facility] 00 weekly. Medical 150-35 Branch mcg/24 hr patch norelgestro 2022-0 Yes [id number] 1{patch Apply 1 Univers min-ethinyl 5-11 } Patch to ity of estradiol 00:00: [facility] 00 weekly. Medical 150-35 Branch mcg/24 hr patch norelgestro 2022-0 2022- No [id number] 1{patch Apply 1 Univers min-ethinyl 5-11 05-25 } Patch to ity of estradiol 00:00: 00:00 [facility] 00 :00 weekly. Medical 150-35 Branch mcg/24 hr patch norelgestro 2022-0 2022- No [id number] 1{patch Apply 1 Univers min-ethinyl 5-11 05-25 } Patch to ity of estradiol 00:00: 00:00 [facility] 00 :00 weekly. Medical 150-35 Branch mcg/24 hr patch doxycycline 2022-0 2022- No [id number] 100mg Take 1 Univers hyclate 100 2-13 02-21 capsule by i ty of mg capsule 00:00: 05:59 [facility] 00 :00 every 12 Medical (twelve) Branch hours for 7 days. norelgestro 2022-0 Yes [id number] 1{patch Apply 1 Univers min-ethinyl 2-10 } Patch to ity of estradiol 00:00: [place] [address] 00 weekly. Medical mcg/24 hr Branch patch norelgestro 2022-0 Yes [id number] 1{patch Apply 1 Univers min-ethinyl 2-10 } Patch to ity of estradiol 00:00: [place] [address] 00 weekly. Medical mcg/24 hr Branch patch norelgestro 3-0 Yes [id number] 1{patch Apply 1 Univers min-ethinyl 2-10 } Patch to ity of estradiol 00:00: [facility] 00 weekly. Medical mcg/24 hr Branch patch norelgestro 3-0 Yes [id number] 1{patch Apply 1 Univers min-ethinyl 2-10 } Patch to ity of estradiol 00:00: [facility] 150-35 00 weekly. Medical mcg/24 hr Branch patch norelgestro 2023-0 Yes [id number] 1{patch Apply 1 Univers min-ethinyl 2-10 } Patch to ity of estradiol 00:00: skin [place] 150-35 00 weekly. Medical mcg/24 hr Branch patch norelgestro 2023-0 Yes [id number] 1{patch Apply 1 Univers min-ethinyl 2-10 } Patch to ity of estradiol 00:00: skin [place] 150-35 00 weekly. Medical mcg/24 hr Branch patch norelgestro 2023-0 Yes [id number] 1{patch Apply 1 Univers min-ethinyl 2-10 } Patch to ity of estradiol 00:00: skin [place] 150-35 00 weekly. Medical mcg/24 hr Branch patch norelgestro 2023-0 Yes [id number] 1{patch Apply 1 Univers min-ethinyl 2-10 } Patch to ity of estradiol 00:00: skin [place] 150-35 00 weekly. Medical mcg/24 hr Branch patch norelgestro 2023-0 Yes [id number] 1{patch Apply 1 Univers min-ethinyl 2-10 } Patch to ity of estradiol 00:00: skin [place] 150-35 00 weekly. Medical mcg/24 hr Branch patch norelgestro 2023-0 Yes [id number] 1{patch Apply 1 Univers min-ethinyl 2-10 } Patch to ity of estradiol 00:00: skin [place] 150-35 00 weekly. Medical mcg/24 hr Branch patch norelgestro 2023-0 Yes [id number] 1{patch Apply 1 Univers min-ethinyl 2-10 } Patch to ity of estradiol 00:00: skin [place] 150-35 00 weekly. Medical mcg/24 hr Branch patch norelgestro 2023-0 Yes [id number] 1{patch Apply 1 Univers min-ethinyl 2-10 } Patch to ity of estradiol 00:00: skin [place] 150-35 00 weekly. Medical mcg/24 hr Branch patch norelgestro 2023-0 Yes [id number] 1{patch Apply 1 Univers min-ethinyl 2-10 } Patch to ity of estradiol 00:00: skin [place] 150-35 00 weekly. Medical mcg/24 hr Branch patch norelgestro 2023-0 Yes [id number] 1{patch Apply 1 Univers min-ethinyl 2-10 } Patch to ity of estradiol 00:00: skin [place] 150-35 00 weekly. Medical mcg/24 hr Branch patch norelgestro 2022-0 Yes [id number] 1{patch Apply 1 Univers min-ethinyl 2-10 } Patch to ity of estradiol 00:00: skin [place] 150-35 00 weekly. Medical mcg/24 hr Branch patch norelgestro 2022-0 Yes [id number] 1{patch Apply 1 Univers min-ethinyl 2-10 } Patch to ity of estradiol 00:00: skin [place] 150-35 00 weekly. Medical mcg/24 hr Branch patch norelgestro 2022-0 Yes [id number] 1{patch Apply 1 Univers min-ethinyl 2-10 } Patch to ity of estradiol 00:00: skin [place] 150-35 00 weekly. Medical mcg/24 hr Branch patch norgestimat 2021-0 Yes [id number] 1{tbl} Take 1 Univers e-ethinyl 7-07 tablet by ity o f estradioL 00:00: mouth [place] 0.18/0.215/ 00 daily. Medica l 0.25 mg-25 Branch mcg tablet norgestimat 2022- No [id number] 1{tbl} Take 1 Univers e-ethinyl 7-07 02-10 tablet by ity of estradioL 00:00: 00:00 mouth [place] 0.18/0.215/ 00 :00 daily. Medica l 0.25 mg-25 Branch mcg tablet norgestimat 2021-2022- No [id number] 1{tbl} Take 1 Univers e-ethinyl 7-07 02-10 tablet by ity of estradioL 00:00: 00:00 mouth [place] 0.18/0.215/ 00 :00 daily. Medica l 0.25 mg-25 Branch mcg tablet norgestimat 2021-0 2021- No [id number] 1{tbl} Take 1 Univers e-ethinyl 4-07 07-07 tablet by ity of estradioL 00:00: 00:00 mouth [place] 0.18/0.215/ 00 :00 daily. Medica l 0.25 mg-25 Branch mcg tablet benzonatate Yes [id number] 100mg Take 1 Univers 100 mg 3-07 capsule by ity of capsule 00:00: mouth 3 [place] 00 (three) Medical times Branch daily as needed for Cough. albuterol Yes [id number] 6{puff} Inhale 6 Univers 90 3-07 Puffs ity of mcg/actuati 00:00: every 4 [place] on inhaler 00 (four) Medical hours as Branch needed for Wheezing or Shortness of Breath. albuterol Yes [id number] 6{puff} Inhale 6 Univers 90 3-07 Puffs ity of mcg/actuati 00:00: every 4 [place] on inhaler 00 (four) Medical hours as Branch needed for Wheezing or Shortness of Breath. albuterol Yes [id number] 6{puff} Inhale 6 Univers 90 3-07 Puffs ity of mcg/actuati 00:00: every 4 [place] inhaler 00 (four) Medical hours as Branch needed for Wheezing or Shortness of Breath. albuterol Yes [id number] 6{puff} Inhale 6 Univers 90 3-07 Puffs ity of mcg/actuati 00:00: every 4 [place] inhaler 00 (four) Medical hours as Branch needed for Wheezing or Shortness of Breath. albuterol Yes [id number] 6{puff} Inhale 6 Univers 90 3-07 Puffs ity of mcg/actuati 00:00: every 4 [place] inhaler 00 (four) Medical hours as Branch needed for Wheezing or Shortness of Breath. albuterol Yes [id number] 6{puff} Inhale 6 Univers 90 3-07 Puffs ity of mcg/actuati 00:00: every 4 [place] inhaler 00 (four) Medical hours as Branch needed for Wheezing or Shortness of Breath. albuterol Yes [id number] 6{puff} Inhale 6 Univers 90 3-07 Puffs ity of mcg/actuati 00:00: every 4 [place] inhaler 00 (four) Medical hours as Branch needed for Wheezing or Shortness of Breath. albuterol Yes [id number] 6{puff} Inhale 6 Univers 90 3-07 Puffs ity of mcg/actuati 00:00: every 4 [place] inhaler 00 (four) Medical hours as Branch needed for Wheezing or Shortness of Breath. albuterol Yes [id number] 6{puff} Inhale 6 Univers 90 3-07 Puffs ity of mcg/actuati 00:00: every 4 [place] on inhaler 00 (four) Medical hours as Branch needed for Wheezing or Shortness of Breath. albuterol Yes [id number] 6{puff} Inhale 6 Univers 90 3-07 Puffs ity of mcg/actuati 00:00: every 4 [place] on inhaler 00 (four) Medical hours as Branch needed for Wheezing or Shortness of Breath. albuterol Yes [id number] 6{puff} Inhale 6 Univers 90 3-07 Puffs ity of mcg/actuati 00:00: every 4 [place] on inhaler 00 (four) Medical hours as Branch needed for Wheezing or Shortness of Breath. albuterol 2022- No [id number] 6{puff} Inhale 6 Univers 90 3-07 05-25 Puffs ity of mcg/actuati 00:00: 00:00 [place] 4 [place] inhaler 00 :00 (four) Medical hours as Branch needed for Wheezing or Shortness of Breath. albuterol 2022- No [id number] 6{puff} Inhale 6 Univers 90 3-07 05-25 Puffs ity of mcg/actuati 00:00: 00:00 [place] 4 [place] inhaler 00 :00 (four) Medical hours as Branch needed for Wheezing or Shortness of Breath. benzonatate 2022- No [id number] 100mg Take 1 Univers 100 mg 3-07 02-10 capsule by ity of capsule 00:00: 00:00 mouth 3 [place] 00 :00 (three) Medical times Branch daily as needed for Cough. benzonatate 2022- No [id number] 100mg Take 1 Univers 100 mg 3-07 02-10 capsule by ity of capsule 00:00: 00:00 mouth 3 [place] 00 :00 (three) Medical times Branch daily as needed for Cough. Immunizations Ordered Immunization Filled Immunization Date Status Commen ts Source Name Name Influenza Virus 2021-11-02 Completed Universit y of Vaccine Quad .5 mL 00:00:00 [place] [facility] IM 6+ MO Branch Influenza Virus 2021-11-02 Completed Universit y of Vaccine Quad .5 mL 00:00:00 [place] [facility] IM 6+ MO Branch Influenza Virus 2021-11-02 Completed Universit y of Vaccine Quad .5 mL 00:00:00 [place] [facility] IM 6+ MO Branch Influenza Virus 2021-11-02 Completed Universit y of Vaccine Quad .5 mL 00:00:00 [place] [facility] IM 6+ MO Branch Influenza Virus 2021-11-02 Completed Universit y of Vaccine Quad .5 mL 00:00:00 [place] [facility] IM 6+ MO Branch Influenza Virus 2021-11-02 Completed Universit y of Vaccine Quad .5 mL 00:00:00 [place] [facility] IM 6+ MO Branch Influenza Virus 2021-11-02 Completed Universit y of Vaccine Quad .5 mL 00:00:00 [place] [facility] IM 6+ MO Branch Influenza Virus 2021-11-02 Completed Universit y of Vaccine Quad .5 mL 00:00:00 [place] [facility] IM 6+ MO Branch Influenza Virus 2021-11-02 Completed Universit y of Vaccine Quad .5 mL 00:00:00 [place] [facility] IM 6+ MO Branch Influenza Virus 2021-11-02 Completed Universit y of Vaccine Quad .5 mL 00:00:00 [place] [facility] IM 6+ MO Branch Influenza Virus 2021-11-02 Completed Universit y of Vaccine Quad .5 mL 00:00:00 [place] [facility] IM 6+ MO Branch Influenza Virus 2021-11-02 Completed Universit y of Vaccine Quad .5 mL 00:00:00 [place] [facility] IM 6+ MO Branch Influenza Virus 2021-11-02 Completed Universit y of Vaccine Quad .5 mL 00:00:00 [place] [facility] IM 6+ MO Branch Influenza Virus 2021-11-02 Completed Universit y of Vaccine Quad .5 mL 00:00:00 [place] [facility] IM 6+ MO Branch Influenza Virus 2021-11-02 Completed Universit y of Vaccine Quad .5 mL 00:00:00 [place] [facility] IM 6+ MO Branch Influenza Virus 2021-11-02 Completed Universit y of Vaccine Quad .5 mL 00:00:00 [place] [facility] IM 6+ MO Branch Influenza Virus 2021-11-02 Completed Universit y of Vaccine Quad .5 mL 00:00:00 [place] [facility] IM 6+ MO Branch Influenza Virus 2021-11-02 Completed Universit y of Vaccine Quad .5 mL 00:00:00 [facility] [place] [facility] 6+ MO Branch SARS-COV-2 COVID-19 2021-03-27 Completed Unive rsity of PFIZER VACCINE 00:00:00 [facility] Branch SARS-COV-2 COVID-19 2021-03-27 Completed Unive rsity of PFIZER VACCINE 00:00:00 [facility] Branch SARS-COV-2 COVID-19 2021-03-27 Completed Unive rsity of PFIZER VACCINE 00:00:00 [facility] Branch SARS-COV-2 COVID-19 2021-03-27 Completed Unive rsity of PFIZER VACCINE 00:00:00 [facility] Branch SARS-COV-2 COVID-19 2021-03-27 Completed Unive rsity of PFIZER VACCINE 00:00:00 [facility] Branch SARS-COV-2 COVID-19 2021-03-27 Completed Unive rsity of PFIZER VACCINE 00:00:00 [facility] Branch SARS-COV-2 COVID-19 2021-03-27 Completed Unive rsity of PFIZER VACCINE 00:00:00 [facility] Branch SARS-COV-2 COVID-19 2021-03-27 Completed Unive rsity of PFIZER VACCINE 00:00:00 [facility] Branch SARS-COV-2 COVID-19 2021-03-27 Completed Unive rsity of PFIZER VACCINE 00:00:00 [facility] Branch SARS-COV-2 COVID-19 2021-03-27 Completed Unive rsity of PFIZER VACCINE 00:00:00 [facility] Branch SARS-COV-2 COVID-19 2021-03-27 Completed Unive rsity of PFIZER VACCINE 00:00:00 [facility] Branch SARS-COV-2 COVID-19 2021-03-27 Completed Unive rsity of PFIZER VACCINE 00:00:00 [facility] Branch SARS-COV-2 COVID-19 2021-03-27 Completed Unive rsity of PFIZER VACCINE 00:00:00 [facility] Branch SARS-COV-2 COVID-19 2021-03-27 Completed Unive rsity of PFIZER VACCINE 00:00:00 [facility] Branch SARS-COV-2 COVID-19 2021-03-27 Completed Unive rsity of PFIZER VACCINE 00:00:00 [facility] Branch SARS-COV-2 COVID-19 2021-03-27 Completed Unive rsity of PFIZER VACCINE 00:00:00 [facility] Branch SARS-COV-2 COVID-19 2021-03-27 Completed Unive rsity of PFIZER VACCINE 00:00:00 [facility] SARS-COV-2 COVID-19 2021-03-27 Completed Unive rsity of PFIZER VACCINE 00:00:00 [facility] Branch SARS-COV-2 COVID-19 2021-03-06 Completed Unive rsity of PFIZER VACCINE 00:00:00 [facility] [facility] SARS-COV-2 COVID-19 2021-03-06 Completed Unive rsity of PFIZER VACCINE 00:00:00 [facility] SARS-COV-2 COVID-19 2021-03-06 Completed Unive rsity of PFIZER VACCINE 00:00:00 [facility] SARS-COV-2 COVID-19 2021-03-06 Completed Unive rsity of PFIZER VACCINE 00:00:00 [facility] SARS-COV-2 COVID-19 2021-03-06 Completed Unive rsity of PFIZER VACCINE 00:00:00 [facility] SARS-COV-2 COVID-19 2021-03-06 Completed Unive rsity of PFIZER VACCINE 00:00:00 [facility] SARS-COV-2 COVID-19 2021-03-06 Completed Unive rsity of PFIZER VACCINE 00:00:00 [facility] SARS-COV-2 COVID-19 2021-03-06 Completed Unive rsity of PFIZER VACCINE 00:00:00 [facility] SARS-COV-2 COVID-19 2021-03-06 Completed Unive rsity of PFIZER VACCINE 00:00:00 [facility] SARS-COV-2 COVID-19 2021-03-06 Completed Unive rsity of PFIZER VACCINE 00:00:00 [facility] SARS-COV-2 COVID-19 2021-03-06 Completed Unive rsity of PFIZER VACCINE 00:00:00 [facility] SARS-COV-2 COVID-19 2021-03-06 Completed Unive rsity of PFIZER VACCINE 00:00:00 [facility] SARS-COV-2 COVID-19 2021-03-06 Completed Unive rsity of PFIZER VACCINE 00:00:00 [facility] SARS-COV-2 COVID-19 2021-03-06 Completed Unive rsity of PFIZER VACCINE 00:00:00 [facility] SARS-COV-2 COVID-19 2021-03-06 Completed Unive rsity of PFIZER VACCINE 00:00:00 [facility] SARS-COV-2 COVID-19 2021-03-06 Completed Unive rsity of PFIZER VACCINE 00:00:00 [facility] SARS-COV-2 COVID-19 2021-03-06 Completed Unive rsity of PFIZER VACCINE 00:00:00 [facility] SARS-COV-2 COVID-19 2021-03-06 Completed Unive rsity of PFIZER VACCINE 00:00:00 [facility] HPV9 2019-08-25 Completed University of 00:00:00 [facility] HPV9 2019-08-25 Completed University of 00:00:00 [facility] HPV9 2019-08-25 Completed University of 00:00:00 [facility] HPV9 2019-08-25 Completed University of 00:00:00 [facility] HPV9 2019-08-25 Completed University of 00:00:00 [facility] HPV9 2019-08-25 Completed University of 00:00:00 [facility] HPV9 2019-08-25 Completed University of 00:00:00 [facility] HPV9 2019-08-25 Completed University of 00:00:00 [facility] HPV9 2019-08-25 Completed University of 00:00:00 [facility] HPV9 2019-08-25 Completed University of 00:00:00 [facility] HPV9 2019-08-25 Completed University of 00:00:00 [facility] HPV9 2019-08-25 Completed University of 00:00:00 [facility] HPV9 2019-08-25 Completed University of 00:00:00 [facility] HPV9 2019-08-25 Completed University of 00:00:00 [facility] HPV9 2019-08-25 Completed University of 00:00:00 [facility] HPV9 2019-08-25 Completed University of 00:00:00 [facility] HPV9 2019-08-25 Completed University of 00:00:00 [facility] HPV9 2019-08-25 Completed University of 00:00:00 [facility] HPV9 2019-05-27 Completed University of 00:00:00 [facility] HPV9 2019-05-27 Completed University of 00:00:00 [facility] HPV9 2019-05-27 Completed University of 00:00:00 [facility] HPV9 2019-05-27 Completed University of 00:00:00 [facility] HPV9 2019-05-27 Completed University of 00:00:00 [facility] HPV9 2019-05-27 Completed University of 00:00:00 [facility] HPV9 2019-05-27 Completed University of 00:00:00 [facility] HPV9 2019-05-27 Completed University of 00:00:00 [facility] HPV9 2019-05-27 Completed University of 00:00:00 [facility] HPV9 2019-05-27 Completed University of 00:00:00 [facility] HPV9 2019-05-27 Completed University of 00:00:00 [facility] HPV9 2019-05-27 Completed University of 00:00:00 [facility] HPV9 2019-05-27 Completed University of 00:00:00 [facility] HPV9 2019-05-27 Completed University of 00:00:00 [facility] HPV9 2019-05-27 Completed University of 00:00:00 [facility] HPV9 2019-05-27 Completed University of 00:00:00 [facility] HPV9 2019-05-27 Completed University of 00:00:00 [facility] HPV9 2019-05-27 Completed University of 00:00:00 [facility] TDAP (ADACEL) 2014-06-24 Completed University of VACCINE 00:00:00 [facility] Meningococcal 2014-06-24 Completed University of Vaccine 00:00:00 [facility] TDAP (ADACEL) 2014-06-24 Completed University of VACCINE 00:00:00 [facility] Meningococcal 2014-06-24 Completed University of Vaccine 00:00:00 [facility] TDAP (ADACEL) 2014-06-24 Completed University of VACCINE 00:00:00 [facility] Meningococcal 2014-06-24 Completed University of Vaccine 00:00:00 [facility] TDAP (ADACEL) 2014-06-24 Completed University of VACCINE 00:00:00 [facility] Meningococcal 2014-06-24 Completed University of Vaccine 00:00:00 [facility] TDAP (ADACEL) 2014-06-24 Completed University of VACCINE 00:00:00 [facility] Meningococcal 2014-06-24 Completed University of Vaccine 00:00:00 [facility] TDAP (ADACEL) 2014-06-24 Completed University of VACCINE 00:00:00 [facility] Meningococcal 2014-06-24 Completed University of Vaccine 00:00:00 [facility] TDAP (ADACEL) 2014-06-24 Completed University of VACCINE 00:00:00 [facility] Meningococcal 2014-06-24 Completed University of Vaccine 00:00:00 [facility] TDAP (ADACEL) 2014-06-24 Completed University of VACCINE 00:00:00 [facility] Meningococcal 2014-06-24 Completed University of Vaccine 00:00:00 [facility] TDAP (ADACEL) 2014-06-24 Completed University of VACCINE 00:00:00 [facility] Meningococcal 2014-06-24 Completed University of Vaccine 00:00:00 [facility] TDAP (ADACEL) 2014-06-24 Completed University of VACCINE 00:00:00 [facility] Meningococcal 2014-06-24 Completed University of Vaccine 00:00:00 [facility] TDAP (ADACEL) 2014-06-24 Completed University of VACCINE 00:00:00 [facility] Meningococcal 2014-06-24 Completed University of Vaccine 00:00:00 [facility] TDAP (ADACEL) 2014-06-24 Completed University of VACCINE 00:00:00 [facility] Meningococcal 2014-06-24 Completed University of Vaccine 00:00:00 [facility] TDAP (ADACEL) 2014-06-24 Completed University of VACCINE 00:00:00 [facility] Meningococcal 2014-06-24 Completed University of Vaccine 00:00:00 [facility] TDAP (ADACEL) 2014-06-24 Completed University of VACCINE 00:00:00 [facility] Meningococcal 2014-06-24 Completed University of Vaccine 00:00:00 [facility] TDAP (ADACEL) 2014-06-24 Completed University of VACCINE 00:00:00 [facility] Meningococcal 2014-06-24 Completed University of Vaccine 00:00:00 [facility] TDAP (ADACEL) 2014-06-24 Completed University of VACCINE 00:00:00 [facility] Meningococcal 2014-06-24 Completed University of Vaccine 00:00:00 [facility] TDAP (ADACEL) 2014-06-24 Completed University of VACCINE 00:00:00 [facility] Meningococcal 2014-06-24 Completed University of Vaccine 00:00:00 [facility] TDAP (ADACEL) 2014-06-24 Completed University of VACCINE 00:00:00 [facility] Meningococcal 2014-06-24 Completed University of Vaccine 00:00:00 [facility] TDAP (ADACEL) 2013-03-12 Completed University of VACCINE 00:00:00 [facility] TDAP (ADACEL) 2013-03-12 Completed University of VACCINE 00:00:00 [facility] TDAP (ADACEL) 2013-03-12 Completed University of VACCINE 00:00:00 [facility] TDAP (ADACEL) 2013-03-12 Completed University of VACCINE 00:00:00 [facility] TDAP (ADACEL) 2013-03-12 Completed University of VACCINE 00:00:00 [facility] TDAP (ADACEL) 2013-03-12 Completed University of VACCINE 00:00:00 [facility] TDAP (ADACEL) 2013-03-12 Completed University of VACCINE 00:00:00 [facility] TDAP (ADACEL) 2013-03-12 Completed University of VACCINE 00:00:00 [facility] TDAP (ADACEL) 2013-03-12 Completed University of VACCINE 00:00:00 [facility] TDAP (ADACEL) 2013-03-12 Completed University of VACCINE 00:00:00 [facility] TDAP (ADACEL) 2013-03-12 Completed University of VACCINE 00:00:00 [facility] TDAP (ADACEL) 2013-03-12 Completed University of VACCINE 00:00:00 [facility] TDAP (ADACEL) 2013-03-12 Completed University of VACCINE 00:00:00 [facility] TDAP (ADACEL) 2013-03-12 Completed University of VACCINE 00:00:00 [facility] TDAP (ADACEL) 2013-03-12 Completed University of VACCINE 00:00:00 [facility] TDAP (ADACEL) 2013-03-12 Completed University of VACCINE 00:00:00 [facility] TDAP (ADACEL) 2013-03-12 Completed University of VACCINE 00:00:00 [facility] TDAP (ADACEL) 2013-03-12 Completed University of VACCINE 00:00:00 [facility] Vital Signs Vital Name Observation Time Observation Value Comments Source Systolic blood 2023-01-03 14:37:00 130 mm[Hg] Univer sity of pressure [facility] Diastolic blood 2023-01-03 14:37:00 85 mm[Hg] Unive rsity of pressure [facility] Heart rate 2023-01-03 14:37:00 66 /min Universi ty of [facility] Body temperature 2023-01-03 14:37:00 36.28 Barby Univ ersity of [facility] Body height 2023-01-03 14:37:00 165.1 cm [facility] Body weight 2023-01-03 14:37:00 68.221 kg [facility] BMI 2023-01-03 14:37:00 25.03 kg/m2 [facility] Oxygen saturation in 2023-01-03 14:37:00 98 /min University of Arterial blood by [employer] danni Pulse oximetry Branch Systolic blood 2022-12-28 00:30:00 133 mm[Hg] Univer sity of pressure [facility] Diastolic blood 2022-12-28 00:30:00 75 mm[Hg] Unive rsity of pressure [facility] Heart rate 2022-12-28 00:30:00 82 /min [facility] Body temperature 2022-12-28 00:30:00 37.22 Barby Univ [facility] Respiratory rate 2022-12-28 00:30:00 16 /min Univ ersity of [facility] Body height 2022-12-28 00:30:00 165.1 cm [facility] Body weight 2022-12-28 00:30:00 67.858 kg [facility] BMI 2022-12-28 00:30:00 24.89 kg/m2 [facility] Oxygen saturation in 2022-12-28 00:30:00 100 /min University of Arterial blood by [employer] danni [facility] Systolic blood 2022-12-28 00:06:00 145 mm[Hg] Univer sity of pressure [facility] Diastolic blood 2022-12-28 00:06:00 102 mm[Hg] Unive rsity of pressure [facility] Heart rate 2022-12-28 00:06:00 88 /min [facility] Body temperature 2022-12-28 00:06:00 36.39 Barby Univ [facility] Respiratory rate 2022-12-28 00:06:00 17 /min Univ ersity of [facility] Body weight 2022-12-28 00:06:00 67.813 kg [facility] BMI 2022-12-28 00:06:00 25.66 kg/m2 [facility] Oxygen saturation in 2022-12-28 00:06:00 98 /min University of Arterial blood by [facility] Pulse oximetry Branch Systolic blood 2022-12-20 14:41:00 128 mm[Hg] Univer sity of pressure [facility] Diastolic blood 2022-12-20 14:41:00 79 mm[Hg] Unive rsity of pressure [facility] Heart rate 2022-12-20 14:41:00 79 /min [facility] Body temperature 2022-12-20 14:41:00 36 Barby Univ ers[facility] of [facility] Respiratory rate 2022-12-20 14:41:00 18 /min Univ ersity of [facility] Body height 2022-12-20 14:41:00 162.6 cm [facility] Body weight 2022-12-20 14:41:00 69.854 kg [facility] BMI 2022-12-20 14:41:00 26.43 kg/m2 [facility] Systolic blood 2022-09-21 15:50:00 132 mm[Hg] Univer sity of pressure [facility] Diastolic blood 2022-09-21 15:50:00 73 mm[Hg] Unive rsity of pressure [facility] Heart rate 2022-09-21 15:45:00 73 /min [facility] Body temperature 2022-09-21 15:45:00 36.72 Barby Univ [facility] Respiratory rate 2022-09-21 15:45:00 19 /min Univ ersity of [facility] Body height 2022-09-21 15:45:00 165.1 cm [facility] Body weight 2022-09-21 15:45:00 76.068 kg [facility] BMI 2022-09-21 15:45:00 27.91 kg/m2 [facility] Systolic blood 2022-02-15 13:51:00 127 mm[Hg] Univer sity [facility] [place] [place] Diastolic blood 2022-02-15 13:51:00 88 [facility]Hg[facility] 2022-[facility]-15 13:51:00 71 /min [facility] Body temperature 2022-02-15 13:51:00 36.11 Barby [facility] Respiratory rate 2022-02-15 13:51:00 16 /min [facility] Body height 2022-02-15 13:51:00 165.1 cm [facility] Body weight 2022-02-15 13:51:00 89.313 kg [facility] BMI 2022-02-15 13:51:00 32.77 kg/m2 [facility] Procedures Procedure Date / Time Performing Clinician Source Performed POCT URINALYSIS 2023-01-03 15:09:00 Eliza Bowers [facility] POCT TEST 2023-01-03 15:09:00 Eliza Bowers [facility] CT ABDOMEN PELVIS W 2022-12-28 02:03:46 Yaw Leiva [facility] ASSIGNMENT OF BENEFITS 2022-12-28 01:22:25 Doctor Unassigned, No [facility] Name [facility] POCT TEST 2022-12-28 01:05:00 Yaw Leiva [facility] LIPASE 2022-12-28 01:04:00 Yaw Leiva [facility] THYROID STIMULATING 2022-12-28 01:04:00 Yaw Leiva [facility] HORMONE [facility] COMP. METABOLIC PANEL 2022-12-28 01:04:[address] [facility] ([id number]) [facility] CBC WITH DIFF 2022-12-28 01:04:00 Singer [facility] URINALYSIS 2022-12-28 01:04:00 Yaw Leiva o f [facility] CONSENT/REFUSAL FOR 2022-12-28 00:17:56 Doctor Unassigned, No [facility] DIAGNOSIS AND TREATMENT Name [facility] ASSIGNMENT OF BENEFITS 2022-12-20 14:26:08 Doctor Unassigned, No [facility] Name [facility] POCT TEST 2022-09-21 00:00:00 Carla Franklin [facility] Encounters Start End Encounter Admission Attending Care Care Encounter Source Date/Time Date/Time Type Type Clinicians Facility Department ID 2021-06-08 Emergency [facility] [id number] Univers 19:53:15 ity [facility] 2023-01-10 2023-01-10 Outpatient Ivan BOWERS [facility] [id number] Univers 00:00:00 00:00:00 ELIZA oh [facility] 2023-01-04 2023-01-04 [facility] 1.2.840.114 [id number] Univers 00:00:00 00:00:00 Leslie Curry GEAR TOOTH GRINDING MACHINE OPERATOR [id number] ity [facility] [id number] Matt as MATERNAL [id number] Med ical & CHILD [address] [place] [address] 2023-01-03 2023-01-03 Tobacco Blender 2, Adc Lab [facility] [id number] Univers 10:15:00 10:30:00 Visit Eliza Bowers [id number] ity [facility] [place]2.7.2.[place] [id number] Ak dical NAL [address] [facility] 2023-01-03 2023-01-03 Outpatient Ivan BOWERS [facility] [id number] Univers 09:30:00 10:13:42 ELIZA oh [facility] 2023-01-03 2023-01-03 Office Robinson [facility] [id number] Univers 09:30:00 10:13:42 Visit Eliza WEBSTER 350.1.13.10 i ty of [place] [id number] Ak dical NAL [address] [facility] 2023-01-03 2023-01-03 [facility] 1.2.840.114 [id number] Univers 00:00:00 00:00:00 Leslie Curry GEAR TOOTH GRINDING MACHINE OPERATOR [id number] [facility] [id number] Matt as MATERNAL [id number] Med ical & CHILD 107 [facility] 2023-01-01 2023-01-01 Outpatient R EMANUEL, [facility] [id number] Univers 15:15:00 15:15:00 LESLIE oh o f [facility] 2023-01-01 2023-01-01 Outpatient R ROBINSON, [facility] [id number] Univers 08:30:00 08:30:00 ELIZA [facility] 2022-12-27 2022-12-27 Emergency X [facility] ERT [id number] Univers 19:33:00 21:29:00 YAW [facility] 2022-12-27 2022-12-27 Emergency [facility] [id number] Univers 19:33:00 21:29:00 Yaw ARIVACA 350.1.13.10 i ty [facility] 4.2.7.2.686 [facility] [id number] [address] 2022-12-27 2022-12-27 Nurse Nurse, [facility] 1.2.840.114 [id number] Univers 19:00:00 19:20:00 Visit Unknown, Attending [id number] [facility] [id number] Matt as CAROLYN?BLEA [id number] Ak dical KNEY [address] [facility] 2022-12-27 2022-12-27 Outpatient R HENOK, [facility] [id number] Univers 19:00:00 19:00:00 ATTENDING itnelli [facility] 2022-12-27 2022-12-27 Outpatient R SHALONDA, [facility] [id number] Univers 19:00:00 19:00:00 BAILEE [facility] 2022-12-25 2022-12-25 Telephone [facility] 1.2.840.114 [id number] Univers 00:00:00 00:00:00 Leslie Curry GEAR TOOTH GRINDING MACHINE OPERATOR [id number] ity of [facility] 4.2.7.2.686 Matt as MATERNAL [id number] [facility] & [address] 2022-12-20 2022-12-20 [facility] [id number] Univers 10:00:00 10:58:56 LESLIE hannony o f [facility] 2022-12-20 2022-12-20 [facility] [id number] Univers 10:00:00 10:58:56 Visit Leslie Curry GEAR TOOTH GRINDING MACHINE OPERATOR [id number] ity of [facility] 4.2.7.2.686 Matt as MATERNAL [id number] [facility] & [address] 2022-12-20 2022-12-20 Orders Doctor HADLEY 1.2.840.114 [id number] Univers 00:00:00 00:00:00 Only Unassigned, LEIGHA 350.1.13.10 ity of [place] [facility] 4.2.7.2.686 Matt as [id number] [address] 2022-09-24 2022-09-24 Case Roderick [facility] 1.2.840.114 [id number] Univers 00:00:00 00:00:00 Management Carla Lang GEAR TOOTH GRINDING MACHINE OPERATOR [id number] ity of [facility] 4.2.7.2.686 Matt as MATERNAL [id number] [facility] & CHILD [address] [place] [address] 2022-09-21 2022-09-21 Outpatient R RODERICK [facility] [id number] Univers 09:30:00 10:18:05 CARLA oh [facility] 2022-09-21 2022-09-21 Office Provider, Pedro [facility] 1 .2.840.114 [id number] Univers 09:30:00 10:18:05 Visit Carla Franklin GEAR TOOTH GRINDING MACHINE OPERATOR 350.1.13.1 0 ity of [facility] 4.2.7.2.686 Matt as MATERNAL [id number] [facility] ical & CHILD [address] [place] [address] 2022-09-21 2022-09-21 Letter Roderick [facility] 1.2.840.114 [id number] Univers 00:00:00 00:00:00 (Out) Carla Lang GEAR TOOTH GRINDING MACHINE OPERATOR 350.1.13.10 i ty of [facility] 4.2.7.2.686 Matt as MATERNAL [id number] [facility] [address] [place] [address] 2022-09-07 2022-09-07 Outpatient R ROSALES CHAPIN [facility] [id number] Univers 08:30:00 08:30:[address] [facility]22 Outpatient R HENOK [facility] [id number] Univers 13:40:00 13:40:00 ATTENDING ity [facility] 2022-02-15 2022-02-15 Office Floyd [facility] 1.2.840.114 [id number] Univers 09:00:00 09:18:29 Visit Jacob Love GEAR TOOTH GRINDING MACHINE OPERATOR 350.1.13.10 ity of [facility] 4.2.7.2.686 Matt as MATERNAL [id number] [facility] & CHILD [address] [place] [address] 2022-02-15 2022-02-15 Outpatient Ivan BARRIENTOS [facility] [id number] Univers 09:00:00 09:18:29 SHEILANDPrecious oh o [facility] 2022-02-15 2022-02-15 Outpatient Ivan BARRIENTOS [facility] [id number] Univers 09:00:00 09:00:00 MISSAELA adriano o f [facility] 2022-02-15 2022-02-15 Outpatient Ivan BARRIENTOS [facility] [id number] Univers 09:00:00 09:00:00 SHEILANDA ity o f [facility] 2022-01-12 2022-01-12 Telephone Floyd [facility] [id number] Univers 00:00:00 00:00:00 Jacob R GEAR TOOTH GRINDING MACHINE OPERATOR 350.1.13.10 ity of [facility] 4.2.7.2.686 Matt as MATERNAL [id number] Med ical & CHILD [address] [place] [address] 2022-01-11 2022-01-11 Office Floyd [facility] 1.2.840.114 [id number] Univers 15:15:00 16:08:32 Visit Jacob R GEAR TOOTH GRINDING MACHINE OPERATOR 350.1.13.10 ity of [facility] 4.2.7.2.686 Matt as MATERNAL [id number] [facility] [address] [place] [address] 2022-01-11 2022-01-11 Outpatient R FLOYD [facility] [id number] Univers 15:15:00 16:08:32 MARYSHELL hannonnelli o alvaro [facility] 2022-01-11 2022-01-11 Outpatient R BARRIENTOS [facility] [id number] Univers 15:15:00 15:15:00 JACOB oh o [facility] 2021-11-16 2021-11-16 Outpatient R [facility] [id number] Univers 10:30:00 10:30:00 ity of [facility] 2021-11-16 2021-11-16 [facility] [id number] Univers 08:00:00 08:20:47 MARYSHELL hannonnelli o [facility] 2021-11-16 2021-11-16 Nurse Visit, Ang-Rmchp Nurse [facility] 1.2 .840.114 [id number] Univers 08:00:00 08:20:47 Visit Jacob Barrientos GEAR TOOTH GRINDING MACHINE OPERATOR 350.1.13.10 ity of [facility] 4.2.7.2.686 Matt as MATERNAL [id number] [facility] [address] [place] [address] 2021-11-03 2021-11-03 Telephone Floyd [facility] [id number] Univers 00:00:00 00:00:00 Jacob R GEAR TOOTH GRINDING MACHINE OPERATOR 350.1.13.10 ity of [facility] 4.2.7.2.686 Matt as MATERNAL [id number] Med ical & CHILD [address] [place] [address] 2021-11-02 2021-11-02 [facility] 1.2.840.114 [id number] Univers 10:30:00 11:58:09 Visit Maryshell Love GEAR TOOTH GRINDING MACHINE OPERATOR 350.1.13.10 ity of [facility] 4.2.7.2.686 Matt as MATERNAL [phone] Med ical & CHILD [address] [place] [address] 2021-11-02 2021-11-02 [facility] [id number] Univers 10:30:00 11:58:09 JACOB riddhinelli o [facility] 2021-11-02 2021-11-02 Outpatient R FLOYD [facility] [id number] Univers 10:30:00 11:58:09 SHEILACARLOS ho o [facility] 2021-11-02 2021-11-02 [facility] [id number] Univers 10:30:00 10:30:00 MARYCARLOS oh o [facility] 2021-11-02 2021-11-02 Outpatient R [facility]D [facility] [id number] Univers 10:30:00 10:30:00 MARYFANYPrecious oh o [facility] 2021-11-02 2021-11-02 Orders Doctor HADLEY 1.2.840.114 [id number] Univers 00:00:00 00:00:00 Only Unassigned, LEIGHA 350.1.13.10 ity of [place] [facility] 4.2.7.2.686 Matt as [phone] [facility] [address] 2021-10-16 2021-10-16 Emergency [facility] [id number] Univers 19:47:00 20:32:00 [facility] ity of [facility] 2021-10-16 2021-10-16 Emergency [facility] 1.2.840.114 [id number] Univers 19:47:00 20:32:00 [facility] 350.1.13.10 ity of [place] 4.2.7.2.686 [place] [facility] [phone] [facility] [address] 2021-08-01 2021-08-01 Outpatient R [facility]LOYD [facility] [id number] Univers 08:30:00 09:21:32 JACOB ity o f [facility] 2021-08-01 2021-08-01 Office [facility] 1.2.840.114 [id number] Univers 08:30:00 09:21:32 Visit Jacob Love GEAR TOOTH GRINDING MACHINE OPERATOR 350.1.13.10 ity of [facility] 4.2.7.2.686 Matt as MATERNAL [phone] [facility] ical & CHILD [address] [place] [address] 2021-08-01 2021-08-01 Orders Doctor HADLEY 1.2.840.114 [id number] Univers 00:00:00 00:00:00 Only Unassigned, LEIGHA 350.1.13.10 ity of [place] [facility] 4.2.7.2.686 Matt as [phone] [address] 2021-07-31 2021-07-31 Telephone [facility] 1.2.505.071 [id number] Univers 00:00:00 00:00:00 Sheilacarlos Love GEAR TOOTH GRINDING MACHINE OPERATOR 350.1.13.10 ity of [place] 4.2.7.2.686 Matt as MATERNAL [phone] [facility] ical & CHILD [address] [place] [address] 2021-06-13 2021-06-13 Outpatient Ivan APARICIO [facility] [id number] Univers 10:30:00 10:58:17 CINDY oh [facility] 2021-06-13 2021-06-13 Office [facility] 1.2.840.114 [id number] Univers 10:01:19 10:58:17 Visit Cindy GEAR TOOTH GRINDING MACHINE OPERATOR 350.1.13.10 ity of [facility] 4.2.7.2.686 Matt as MATERNAL [phone] [facility] ical & CHILD [address] [place] [address] 2021-06-13 2021-06-13 Outpatient Ivan APARICIO [facility] [id number] Univers 10:30:00 10:30:00 CINDY oh [facility] 2021-06-06 2021-06-06 Telephone [facility] 1.2.810.993 [id number] Univers 00:00:00 00:00:00 Marynda R GEAR TOOTH GRINDING MACHINE OPERATOR 350.1.13.10 ity of [facility] 4.2.7.2.686 Matt as MATERNAL [phone] [facility] & CHILD [address] [place] [address] 2021-04-10 2021-04-10 [facility] [id number] Univers 10:00:00 10:00:00 LESLIE oh o [facility] 2021-03-31 2021-03-31 Letter HADLEY Jones 1.2.840.114 [id number] Univers 00:00:00 00:00:00 (Out) Rayne Godoy LEIGHA 350.1.13.10 it y of [facility] 4.2.7.2.686 Matt as [phone] [address] 2021-03-30 2021-03-30 Outpatient R ANTONIO [facility] [id number] Univers 12:30:00 12:30:00 NI oh [facility] 2020-12-30 2020-12-30 [facility] 1.2.840.114 [id number] 09:29:12 10:10:09 Visit Marycarlos R GEAR TOOTH GRINDING MACHINE OPERATOR 350.1.13.10 [facility] 4.2.7.2.686 MATERNAL [phone] & CHILD [address] [place] [address] 2020-12-30 2020-12-30 Office [facility] 1.2.840.114 [id number] Univers 09:29:12 10:10:09 Visit Marycarlos R GEAR TOOTH GRINDING MACHINE OPERATOR 350.1.13.10 ity [facility] 4.2.7.2.686 Matt as MATERNAL [phone] [facility] ical & CHILD [address] [place] [address] 2020-12-30 2020-12-30 Outpatient R EMANUEL [facility] [id number] Univers 09:30:00 09:30:00 LESLIE john [facility] 2020-12-30 2020-12-30 [facility] [id number] Univers 08:45:00 08:45:00 JACOB oh o [facility] 2020-12-16 2020-12-16 Office Emanuel [facility] 1.2.728.374 [id number] Univers 08:57:28 09:27:28 Visit Leslie Curry 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 OPERATOR 350.1.13.10 ity of [facility] 4.2.7.2.686 Matt as MATERNAL [phone] [facility] & CHILD [address] [place] [address] 2020-12-16 2020-12-16 Outpatient R EMANUEL [facility] [id number] Univers 09:00:00 09:00:00 LESLIE oh o [facility] 2020-12-16 2020-12-16 Orders Doctor HADLEY 1.2.840.114 [id number] Univers 00:00:00 00:00:00 Only Unassigned, LEIGHA 350.1.13.10 ity of [place] [facility] 4.2.7.2.686 Matt as [phone] [address] 2020-12-02 2020-12-02 Telephone [facility] 1.2.840.114 [id number] Univers 00:00:00 00:00:00 Leslie Curry GEAR TOOTH GRINDING MACHINE OPERATOR 350.1.13.10 ity of [facility] 4.2.7.2.686 Matt as MATERNAL [phone] [facility] & [address] 2020-11-29 2020-11-29 Nurse Visit, Bannerp Nurse [facility] 1.2 .840.114 [id number] Univers 15:31:01 15:46:01 Visit Jacob Barrientos GEAR TOOTH GRINDING MACHINE OPERATOR 350.1.13.10 ity of [facility] 4.2.7.2.686 Matt as MATERNAL [phone] [facility] & CHILD [address] [place] [address] 2020-11-29 2020-11-29 Outpatient R FLOYD [facility] [id number] Univers 15:30:00 15:30:00 JACOB john [facility] 2020-11-29 2020-11-29 Telephone [facility] 1.2.241.070 [id number] Univers 00:00:00 00:00:00 Jacob Love GEAR TOOTH GRINDING MACHINE OPERATOR 350.1.13.10 ity of [facility] 4.2.7.2.686 Matt as MATERNAL [phone] [facility] & [facility] [address] [place] [address] 2020-11-02 2020-11-02 Office Floyd [facility] 1.2.840.114 [id number] Univers 10:16:29 11:05:27 Visit Sheilacarlos Love GEAR TOOTH GRINDING MACHINE OPERATOR 350.1.13.10 ity of [facility] 4.2.7.2.686 Matt as MATERNAL [phone] [facility] & CHILD [address] [place] [address] 2020-11-02 2020-11-02 Outpatient R FLOYD [facility] [id number] Univers 10:15:00 10:15:00 JACOB john [facility] 2020-11-02 2020-11-02 Orders Doctor HADLEY 1.2.840.114 [id number] Univers 00:00:00 00:00:00 Only Unassigned, LEIGHA 350.1.13.10 ity of [place] [facility] 4.2.7.2.686 Matt as [phone] [address] 2020-11-01 2020-11-01 Outpatient R FLOYD [facility] [id number] Univers 15:00:00 15:00:00 JACOB john [facility] 2020-11-01 2020-11-01 Patient Shaka [facility] 1.2.840.114 [id number] Univers 00:00:00 00:00:00 [facility] 350.1.13.10 i ty of [facility] 4.2.7.2.686 [place] [phone] [address] 2020-07-04 2020-07-04 Refill Emanuel [facility] 1.2.594.601 [id number] Univers 00:00:00 00:00:00 Leslie Curry GEAR TOOTH GRINDING MACHINE OPERATOR 350.1.13.10 ity of [facility] 4.2.7.2.686 Matt as MATERNAL [phone] [facility] [address] [place] [address] 2020-06-13 2020-06-13 Outpatient R EMANUEL [facility] [id number] Univers 09:15:00 09:15:00 LESLIE ity o f [facility] 2020-06-13 2020-06-13 Outpatient R AKINSIPE, [facility] [id number] Univers 09:15:00 09:15:00 LESLIE ity o f [facility] 2020-06-01 2020-06-01 Refill Akinyuliape, [facility] 1.2.761.243 [id number] Univers 00:00:00 00:00:00 Leslie C GEAR TOOTH GRINDING MACHINE OPERATOR 350.1.13.10 ity of [facility] 4.2.7.2.686 Matt as MATERNAL [phone] Med ical & CHILD [address] [place] [address] 2020-05-30 2020-05-30 [facility] 1.2.840.114 [id number] Univers 00:00:00 00:00:00 [facility] 350.1.13.10 it y of [place] 4.2.7.2.686 Matt as Professio [phone] [address] Office [facility] 2020-05-27 2020-05-27 Outpatient R AKINSIPE, [facility] [id number] Univers 10:30:00 10:30:00 LESLIE ity o f [facility] 2020-05-27 2020-05-27 Outpatient R AKINSIPE, [facility] [id number] Univers 10:30:00 10:30:00 LESLIE ity o f [facility] 2020-05-10 2020-05-10 Urgent Provider, [facility] 1.2.840.114 [id number] Univers 11:18:40 11:38:40 [facility] 350.1.13.10 ity [facility] 4.2.7.2.686 Matt as Professio [phone] Ak dical [facility] [address] [place] Office [facility] 2020-05-10 2020-05-10 Outpatient R JESSICA, [facility] [id number] Univers 11:20:00 11:20:00 ELENA ity [facility] 2020-05-09 2020-05-09 [facility] 1.2.887.091 [id number] Univers 00:00:00 00:00:00 Rosjanethnda R GEAR TOOTH GRINDING MACHINE OPERATOR 350.1.13.10 ity of [place] 4.2.7.2.686 Matt as MATERNAL [phone] [facility] [address] [place] [address] 2020-03-31 2020-03-31 Office [facility] 1.2.174.470 [id number] Univers 09:26:23 10:13:41 Visit Leslie C GEAR TOOTH GRINDING MACHINE OPERATOR 350.1.13.10 ity of [place] 4.2.7.2.686 Matt as MATERNAL [phone] [facility] [address] [place] [address] 2020-03-31 2020-03-31 Outpatient R AKINSIPE, [facility] [id number] Univers 09:00:00 09:00:00 LESLIE john [facility] 2020-03-11 2020-03-11 Tele[facility] 1.2.840.114 [id number] Univers 00:00:00 00:00:00 Leslie C GEAR TOOTH GRINDING MACHINE OPERATOR 350.1.13.10 ity of [facility] 4.2.7.2.686 Matt as MATERNAL [phone] [facility] [address] [place] [address] 2020-03-10 2020-03-10 Outpatient R EMANUEL, [facility] [id number] Univers 14:30:00 14:30:00 LESLIE john [facility] 2020-03-10 2020-03-10 Office [facility] 1.2.877.316 [id number] Univers 10:09:10 11:09:52 Visit Leslie Curry GEAR TOOTH GRINDING MACHINE OPERATOR 350.1.13.10 ity of [place] 4.2.7.2.686 Matt as MATERNAL [phone] [facility] [address] [place] [address] 2020-03-07 2020-03-07 Telephone [facility] 1.2.650.796 [id number] Univers 00:00:00 00:00:00 Rosjanethnda R GEAR TOOTH GRINDING MACHINE OPERATOR 350.1.13.10 ity of [facility] 4.2.7.2.686 Matt as MATERNAL [phone] [facility] [address] [place] [address] 2019-12-29 2019-12-30 Initial [facility] 1.2.840.114 [id number] Univers 13:01:04 11:33:02 Jacob R GEAR TOOTH GRINDING MACHINE OPERATOR 350.1.13.10 ity of Visit [facility] 4.2.7.2.686 Matt as MATERNAL [phone] [facility] [address] [place] [address] 2019-12-30 2019-12-30 Patient Doctor [facility] 1.2.840.114 [id number] Univers 00:00:00 00:00:00 Secure Msg Unassigned, GEAR TOOTH GRINDING MACHINE OPERATOR 350.1.13.10 ity of [place] 4.2.7.2.686 Matt as MATERNAL [phone] [facility] [address] [place] [address] 2019-12-30 2019-12-30 Patient Doctor [facility] 1.2.840.114 [id number] Univers 00:00:00 00:00:00 Secure Msg Unassigned, GEAR TOOTH GRINDING MACHINE OPERATOR 350.1.13.10 ity of [place] [facility] 4.2.7.2.686 Matt as MATERNAL [phone] [facility] [address] [place] [address] 2019-12-29 2019-12-29 Office [facility] 1.2.840.114 [id number] Univers 14:04:59 14:20:25 Visit Jacob R GEAR TOOTH GRINDING MACHINE OPERATOR 350.1.13.10 ity of [facility] 4.2.7.2.686 Matt as MATERNAL [phone] [facility] & [address] 2019-12-29 2019-12-29 Outpatient R FLOYD [facility] [id number] Univers 12:45:00 12:45:00 JACOB hannony o f [facility] 2019-12-15 2019-12-15 Emergency [facility] 1.2.941.160 [id number] Univers 07:30:05 08:20:00 [facility] 350.1.13.10 i ty of [place] 4.2.7.2.686 [place] [phone] [facility] [address] [place] 2019-12-14 2019-12-14 Patient Frank [facility] 1.2.840.114 [id number] Univers 00:00:00 00:00:00 Secure Msg , Ethel GEAR TOOTH GRINDING MACHINE OPERATOR 350.1.13.10 ity of [place] 4.2.7.2.686 Matt as MATERNAL [phone] Med ical & CHILD [address] [place] [address] 2019-11-30 2019-11-30 Outpatient R [facility] [id number] Univers 08:30:00 08:30:00 ity of [facility] 2019-11-27 2019-11-27 Outpatient R [facility] [id number] Univers 09:30:00 09:30:00 ity of [facility] 2019-11-26 2019-11-26 Outpatient R [facility] [id number] Univers 09:00:00 09:00:00 ity of [facility] 2019-11-26 2019-11-26 Telephone [facility] 1.2.007.171 [id number] Univers 00:00:00 00:00:00 Rosleobardoa R GEAR TOOTH GRINDING MACHINE OPERATOR 350.1.13.10 ity of [facility] 4.2.7.2.686 Matt as MATERNAL [phone] Med ical & CHILD [address] [place] [address] 2019-11-24 2019-11-24 Out[facility] [id number] Univers 09:30:00 09:30:00 LESLIE oh o f [facility] 2019-11-03 2019-11-03 Outpatient Raju_P MMG MMG [id number] [place] 05:13:00 05:13:00 0324 [facility] 2019-10-27 2019-10-27 Patient Floyd [facility] 1.2.840.114 [id number] Univers 00:00:00 00:00:00 Secure Msg Missaela R GEAR TOOTH GRINDING MACHINE OPERATOR 350.1.13.10 ity of [facility] 4.2.7.2.686 Matt as MATERNAL [phone] Med ical & CHILD [address] [place] [address] 2019-10-16 2019-10-16 [facility] 1.2.843.935 [id number] Univers 10:45:40 11:26:43 Visit Leslie Curry GEAR TOOTH GRINDING MACHINE OPERATOR 350.1.13.10 ity of [place] 4.2.7.2.686 Matt as MATERNAL [phone] Med ical & CHILD [address] [place] [address] 2019-10-16 2019-10-16 Outpatient R EMANUEL, [facility] [id number] Univers 10:45:00 10:45:00 LESLIE oh o f [facility] 2019-10-07 2019-10-07 Office [facility] 1.2.872.519 [id number] Univers 12:51:31 13:44:17 Visit Leslie C GEAR TOOTH GRINDING MACHINE OPERATOR 350.1.13.10 ity of [facility] 4.2.7.2.686 Matt as MATERNAL [id number] [facility] [address] [place] [address] 2019-10-07 2019-10-07 Outpatient R EMANUEL, [facility] [id number] Univers 13:00:00 13:00:00 LESLIE oh o f [facility] 2019-10-06 2019-10-06 Telephone [facility] 1.2.840.114 [id number] Univers 00:00:00 00:00:00 Leslie C GEAR TOOTH GRINDING MACHINE OPERATOR 350.1.13.10 ity of [facility] 4.2.7.2.686 Matt as MATERNAL [phone] [facility] & CHILD [address] [place] [address] 2019-10-02 2019-10-02 Office [facility] 1.2.768.364 [id number] Univers 14:07:49 15:15:37 Visit Leslie C GEAR TOOTH GRINDING MACHINE OPERATOR 350.1.13.10 ity of [place] 4.2.7.2.686 Matt as MATERNAL [phone] [facility] [address] [place] [address] 2019-08-25 2019-08-25 Office [facility] 1.2.460.532 [id number] Univers 09:57:53 13:09:26 Visit Leslie C GEAR TOOTH GRINDING MACHINE OPERATOR 350.1.13.10 ity of [facility] 4.2.7.2.686 Matt as MATERNAL [phone] [facility] [address] [place] [address] 2019-08-25 2019-08-25 Orders Doctor BUTCHER 1.2.840.114 [id number] Univers 00:00:00 00:00:00 Only Unassigned, LEIGHA 350.1.13.10 ity of [place] [facility] 4.2.7.2.686 Matt as [phone] [facility] [address] [place] 2019-08-25 2019-08-25 Letter Emanuel [facility] 1.2.854.468 [id number] Univers 00:00:00 00:00:00 (Out) Leslie Patricio GEAR TOOTH GRINDING MACHINE OPERATOR 350.1.13.10 ity of [facility] 4.2.7.2.686 Matt as MATERNAL [phone] Med ical & CHILD [address] [place] [address] 2019-03-05 2019-03-05 Emergency [facility] 1.2.154.329 [id number] Univers 22:28:42 23:12:00 Alvin A [place] 350.1.13.10 i ty of [place] 4.2.7.2.686 [place] [facility] [phone] [address] Results Test Description Test Time Test Comments Results Result Comments Source POCT URINALYSIS W SPECIFIC GRAVITY 2023-01-03 15:11:00 Test Item Value Reference Range Interpretation Comme nts POCT U SP GRAV (test code = 3255) 1.005 mg/dl 1.005-1.025 POCT PH U (test code = 3254) 5 mg/dl 5-8 POCT U LEUK EST (test code = 3263) Negative Negative - Negative POCT U NIT (test code = 3262) Negative Negative - Negative POCT U PROT (test code = 3259) 30 Negative - Negative POCT U GLU (test code = 3256) Negative Negative - Negative POCT U KETONE (test code = 3258) Negative Negative - Negative POCT U UROBILI (test code = 3260) 2 mg/dl 0.2-1 A POCT U BILI (test code = 3261) Negative Negative - Negative POCT U BLD (test code = 3257) large Negative - Negative POCT U COLOR (test code = 3266) Yellow POCT U APPEAR (test code = 3267) clear Lab Interpretation (test code = 36571-0) Abnormal [facility]CIFIC [id number] 15:11:00 Test Item Value Reference Range Interpretation Comments POCT U SP GRAV (test code = 1.005 mg/dl 1.005-1.025 3255) POCT PH U (test code = 3254) 5 mg/dl 5-8 POCT U LEUK EST (test code = Negative Negative - Negative 3263) POCT U NIT (test code = 3262) Negative Negative - Negative POCT U PROT (test code = 30 Negative - Negative 3259) POCT U GLU (test code = 3256) Negative Negative - Negative POCT U KETONE (test code = Negative Negative - Negative 3258) POCT U UROBILI (test code = 2 mg/dl 0.2-1 A 3260) POCT U BILI (test code = Negative Negative - Negative 3261) POCT U BLD (test code = 3257) large Negative - Negative POCT U COLOR (test code = Yellow 3266) POCT U APPEAR (test code = clear 3267) Lab Interpretation (test code Abnormal = 56612-1) [facility] [id number] 15:09:00 Test Item Value Reference Range Interpretation Comments POCT PREG (test code = 1605) Negative On board controls acceptable with C Yes Line (test code = 3574) POCT PREG LOT # (test code = 3575) POCT PREG TEST DATE (test code = 3576) [facility] [id number] 15:09:00 Test Item Value Reference Range Interpretation Comments POCT PREG (test code = 1605) Negative On board controls acceptable with C Yes Line (test code = 3574) POCT PREG LOT # (test code = 3575) POCT PREG TEST DATE (test code = 3576) [facility] Center[facility] STIMULATING [id number] 02:02:22 Test Item Value Reference Range Interpretation Comments TSH (test code = 2.26 See_Comment [Automated message] [id number]) The system [employer] generated this result transmitted ref erence range: 0.45 - 4 .70 mIU/L. The refe rence range was not u sed to interpret this result as normal/abnor mal. Lab Interpretation (test Normal code = 47467-0) [facility] METABOLIC PANEL ([id number])2022-12-28 01:32:39 Test Item Value Reference Range Interpretation Comments NA (test code = 139 mmol/L 135-145 4909028936) K (test code = 3.4 mmol/L 3.5-5.0 L 0680835793) CL (test code = 103 mmol/L 98-108 8811795373) CO2 TOTAL (test code = 24 mmol/L 23-31 3495609802) AGAP (test code = 12 2-16 7451065954) BUN (test code = 8 mg/dL 7-23 2130234020) GLUCOSE (test code = 121 mg/dL 70-110 H 8619306675) CREATININE (test code = 0.57 mg/dL 0.50-1.04 6935902033) TOTAL BILI (test code = 1.0 mg/dL 0.1-1.1 6640672432) CALCIUM (test code = 9.2 mg/dL 8.6-10.6 6418094418) T PROTEIN (test code = 6.9 g/dL 6.3-8.2 3843039551) ALBUMIN (test code = 4.4 g/dL 3.5-5.0 2185767285) ALK PHOS (test code = 47 U/L 34-122 7949477860) ALTv (test code = 16 U/L 5-35 1742-6) AST(SGOT) (test code = 22 U/L 13-40 5069454767) eGFR (test code = 133.9 mL/min/1.73m2 0457850875) VICENTE (test code = VICENTE) Association of Glomerular Filtration Rate (GFR) and Staging of Kidney Disease* + --+ --+ ------+| GFR (mL/min/1.73 m2) ?| With Kidney Damage ?| ?Without Kidney Damage+ --------+ --------+ +| ?>90 ?| ?Stage one ?| ? Normal ?+ ---+ ---+ -------+| ?60-89 ?| ?Stage two ?| ? Decreased GFR ? + --+ --+ ------+| ?30-59 ?| ?Stage three ?| ? Stage three ? + --+ --+ ------+| ?15-29 ?| ?Stage four ? | ? Stage four ?+ ---+ ---+ -------+| ?<15 (or dialysis) ? ?| ?Stage five ? | ? Stage five ?+ ---+ ---+ -------+ *Each stage assumes the associated GFR level has been in effect for at least three months. ?Stages 1 to 5, with or without kidney disease, indicate chronic kidney disease. Notes: Determination of stages one and two (with eGFR >59mL/min/1.73 m2) requires estimation of kidney damage for at least three months as defined by structural or functional abnormalities of the kidney, manifested by either:Pathological abnormalities or Markers of kidney damage (including abnormalities in the composition of the blood or urine or abnormalities in imaging tests). Lab Interpretation Abnormal (test code = 10508-1) [facility] 01:32:19 Test Item Value Reference Range Interpretation Comments LIPASE (test code = 2580357782) 67 U/L 0-220 Lab Interpretation (test code = Normal 72497-6) [facility] WITH [id number] 01:20:58 Test Item Value Reference Range Interpretation Comments WBC (test code = 9.89 See_Comment [Automated 9588-2) message] The sy stem which generated this result transmitted reference range : 4.30 - 11.10 10*3/?L. The reference range was not used to interpret this result as normal/abnormal . RBC (test code = 4.29 See_Comment [Automated 428-8) message] The sy stem which generated this result transmitted reference range : 3.93 - 5.25 10*6/?L. The reference range was not used to interpret this result as normal/abnormal . HGB (test code = 13.1 g/dL 11.6-15.0 718-7) HCT (test code = 38.3 % 35.7-45.2 4544-3) MCV (test code = 89.3 fL 80.6-95.5 787-2) MCH (test code = 30.5 pg 25.9-32.8 785-6) MCHC (test code = 34.2 g/dL 31.6-35.1 786-4) RDW-SD (test code = 38.2 fL 39.0-49.9 L 74728-5) RDW-CV (test code = 11.9 % 12.0-15.5 L 788-0) PLT (test code = 177 See_Comment [Automated 777-3) message] The sy stem which generated this result transmitted reference range : 166 - 358 10*3/ ?L. The reference r kim was not used to interpret this result as normal/abnormal . MPV (test code = 11.6 fL 9.5-12.9 88923-6) NRBC/100 WBC (test 0.0 See_Comment [Automat ed code = [id number]) message] The system which generated this result transmitted reference range : 0.0 - 10.0 /100 WBCs. The refer ence range was not u sed to interpret th is result as normal/abnormal . NRBC x10^3 (test code See_Comment [Auto mated = [id number]) message] The s ystem which generated this result transmitted reference range : 10*3/?L. The reference range was not used to interpret this result as normal/abnormal . GRAN MAT (NEUT) % 64.1 % (test code = 770-8) IMM GRAN % (test code 0.30 % = 0068052514) LYMPH % (test code = 28.1 % 736-9) MONO % (test code = 5.8 % 5905-5) EOS % (test code = 1.3 % 713-8) BASO % (test code = 0.4 % 706-2) GRAN MAT x10^3(ANC) 6.34 10*3/uL 1.88-7.09 (test code = 6876355983) IMM GRAN x10^3 (test 0.03 10*3/uL 0.00-0.06 code = 2643265935) LYMPH x10^3 (test code 2.78 10*3/uL 1.32-3.29 = 731-0) MONO x10^3 (test code 0.57 10*3/uL 0.33-0.92 = 742-7) EOS x10^3 (test code = 0.13 10*3/uL 0.03-0.39 711-2) BASO x10^3 (test code 0.04 10*3/uL 0.01-0.07 = 704-7) Lab Interpretation Abnormal (test code = 21604-2) [facility] [id number] 01:05:00 Test Item Value Reference Range Interpretation Comments POCT PREG (test code = 1605) Negative On board controls acceptable with Yes C Line (test code = 3574) POCT PREG LOT # (test code = 3575) [id number] POCT PREG TEST DATE (test 2024-03-19 code = 3576) Lab Interpretation (test code = Normal 22568-3) [id number]:47:00 Test Item Value Reference Range Interpretation Comments POCT PREG (test code = 1605) Negative On board controls acceptable with C Yes Line (test code = 3574) POCT PREG LOT # (test code = 3575) POCT PREG TEST DATE (test code = 3576) [id number] 15:47:00 Test Item Value Reference Range Interpretation Comments POCT PREG (test code = 1605) Negative On board controls acceptable with C Yes Line (test code = 3574) POCT PREG LOT # (test code = 3575) POCT PREG TEST DATE (test code = 3576) [facility]"
[2023-01-13 20:50] LABS: Absolute Lymphocytes (CBC) 2.2 K/uL (0.7-4.9); Hematocrit 38.9 % (36.0-45.0); Lymphocytes % 24.3 % (15.3-44.8); MCV 90.2 fL (80-100); MPV 10.5 fL (7.6-11.3); RBC Red Blood Cell Count 4.31 M/uL (3.86-4.86)
--- NOTE | 2023-01-13 20:56 | RAD REPORT ---
EXAM DESCRIPTION: RADChest Single View01/13/2023 8:45 pm CLINICAL HISTORY: SOB COMPARISON: Chest Pa And Lat (2 Views) dated 09/26/2022; Chest Pa And Lat (2 Views) dated 07/23/2022; Chest Pa And Lat (2 Views) dated 03/15/2021; Chest Pa And Lat (2 Views) dated 03/15/2021 TECHNIQUE: Portable AP view of the chest. FINDINGS: The lungs are clear. No pneumothorax or effusion. The cardiomediastinal contours are unre markable. IMPRESSION: No acute cardiopulmonary process.
[2023-01-13 21:11] LABS: Specific Gravity 1.026 (1.005-1.030); Urine Bacteria None Seen /HPF (<20); Urine Bilirubin NEGATIVE (Negative); Urine Blood Negative (Negative); Urine Clarity Clear (Clear); Urine Color Yellow (Yellow); Urine Glucose NEGATIVE (Negative); Urine Mucus 1+ /HPF (None Seen); Urine Protein 1+ (Negative); Urine RBC <5 /HPF (None Seen); Urine Urobilinogen 3+ (Normal); Urine pH 7.5 (5.0-7.0)
[2023-01-13 21:13] LABS: Specific Gravity 1.025 (1.005-1.030)
[2023-01-13 21:45] LABS: Potassium 3.1 mEq/L (3.5-5.1)
--- NOTE | 2023-01-13 22:40 | RAD REPORT ---
EXAM DESCRIPTION: CT - Chest Abdomen Pelvis W Cont - 01/13/2023 10:16 pm CLINICAL HISTORY: Chest pain;Congestion;Dyspnea COMPARISON: Chest Single View dated 01/13/2023; Chest For Pe Angio dated 09/27/2022 TECHNIQUE: Thin axial CT images of the chest, abdomen, and pelvis were obtained following intravenou s administration of 65 mL Isovue-300. Multiplanar reformats were generated and reviewed. All CT scans are performed using dose optimization technique as appropriate and may include automated exposure control or mA/KV adjustment according to patient size. FINDINGS: The lungs are clear.No pleural or pericardial effusion.No intrathoracic adenopathy. The liver, spleen, pancreas, adrenal glands and kidneys are within normal limits. Stable geographic region of hypoattenuation along the margins of the falciform ligament, suggestive of focal fatty infi ltration. No bowel obstruction, free air, free fluid or abscess. Normal appendix. No pathologic lymphadenopath y in the abdomen or pelvis. No worrisome osseous finding. IMPRESSION: Normal CT evaluation of the chest, abdomen, or pelvis.
--- NOTE | 2023-01-13 23:21 | EDPHYS ---
Physician Documentation [facility] Name: Maylin Zuniga Age: 22 yrs Sex: Female : 2000 Arrival Date: 01/13/2023 Time: 19:11 Bed 6 Private MD: ED Physician Toy Bradshaw HPI: 01/14 04:51 This 22 yrs old Female presents to ER via Ambulatory with complaints of kdr Breathing Difficulty. 04:52 Patient presents to the ED stating that she cannot breathe very well. She states that kdr she has been to her physician and been unable to determine why. Patient also does states that she has lost nearly 100 pounds in the past year without trying. Patient also states she is having chest and shoulder blade pain bilaterally when she breathes.. Onset: The symptoms/episode began/occurred at an unknown time. Severity of symptoms: At their worst the symptoms were mild in the emergency department the symptoms are unchanged. The patient has not experienced similar symptoms in the past. The patient has not recently seen a physician. 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 - Social history:: Smoking status: Reported history of juuling and/or vaping. ROS: 01/14 04:52 Constitutional: Negative for fever, chills, the patient has had about 70 pounds of kdr weight loss in the last year without trying Eyes: Negative for injury, pain, redness, and discharge, Neck: Negative for injury, pain, and swelling, Cardiovascular: Negative for chest pain, palpitations, and edema, Respiratory: Negative for shortness of breath, cough, wheezing, and pleuritic chest pain, Abdomen/GI: Negative for abdominal pain, nausea, vomiting, diarrhea, and constipation, Back: Negative for injury and pain, : Negative for injury, bleeding, discharge, and swelling, MS/Extremity: Negative for injury and deformity, Skin: Negative for injury, rash, and discoloration, Neuro: Negative for headache, weakness, numbness, tingling, and seizure activity. Psych: Negative for depression, anxiety, suicide ideation, homicidal ideation, and hallucinations, Allergy/Immunology: Negative for hives, rash, and allergies, Endocrine: Negative for neck swelling, polydipsia, polyuria, polyphagia, and marked weight changes, Hematologic/Lymphatic: Negative for swollen nodes, abnormal bleeding, and unusual bruising. Exam: 04:52 Constitutional: This is a well developed, well nourished patient who is awake, alert, kdr and in no acute distress. Head/Face: Normocephalic, atraumatic. Eyes: Pupils equal round and reactive to light, extra-ocular motions intact. Lids and lashes normal. Conjunctiva and sclera are non-icteric and not injected. Cornea within normal limits. Periorbital areas with no swelling, redness, or edema. Neck: Trachea midline, no thyromegaly or masses palpated, and no cervical lymphadenopathy. Supple, full range of motion without nuchal rigidity, or vertebral point tenderness. No Meningismus. Chest/axilla: Normal chest wall appearance and motion. Nontender with no deformity. No lesions are appreciated. Cardiovascular: Regular rate and rhythm with a normal S1 and S2. No gallops, murmurs, or rubs. Normal PMI, no JVD. No pulse deficits. Respiratory: Lungs have equal breath sounds bilaterally, clear to auscultation and percussion. No rales, rhonchi or wheezes noted. No increased work of breathing, no retractions or nasal flaring. Abdomen/GI: Soft, non-tender, with normal bowel sounds. No distension or tympany. No guarding or rebound. No evidence of tenderness throughout. Back: No spinal tenderness. No costovertebral tenderness. Full range of motion. Skin: Warm, dry with normal turgor. Normal color with no rashes, no lesions, and no evidence of cellulitis. MS/ Extremity: Pulses equal, no cyanosis. Neurovascular intact. Full, normal range of motion. Neuro: Awake and alert, GCS 15, oriented to person, place, time, and situation. Cranial nerves II-XII grossly intact. Motor strength 5/5 in all extremities. Sensory grossly intact. Cerebellar exam normal. Normal gait. Psych: Awake, alert, with orientation to person, place and time. Behavior, mood, and affect are within normal limits. Vital Signs: 01/13 19:44 BP 138 / 97; Pulse 84; Resp 18 S; Temp 98.5; Pulse Ox 98% on R/A; Weight 66.22 kg (R); aa9 Height 5 ft. 4 in. (R); 20:58 BP 130 / 86; Pulse 64; Resp 16; Pulse Ox 99% on R/A; rv 22:03 BP 134 / 76; Pulse 66; Resp 16; Pulse Ox 100% on R/A; rv 19:44 Body Mass Index 25.06 (66.22 kg, 162.56 cm) aa9 Cornelio Coma Score: 20:58 Eye Response: spontaneous(4). Motor Response: obeys commands(6). Verbal Response: rv oriented(5). Total: 15. MDM: 23:20 Patient medically screened. kdr 01/14 04:52 Data reviewed: vital signs, nurses notes, lab test result(s), radiologic studies. kdr 01/13 20:34 Order name: Basic Metabolic Panel; Complete Time: 21:48 as6 01/13 20:34 Order name: CBC with Diff; Complete Time: 21:48 as01/13 20:34 Order name: Troponin HS; Complete Time: 21:48 as6 01/13 20:34 Order name: Urinalysis w/ reflexes; Complete Time: 21:48 as01/13 20:34 Order name: PREGU; Complete Time: 21:48 as01/13 20:34 Order name: XRAY Chest (1 view); Complete Time: 21:48 as6 01/13 21:48 Order name: CT Chest, Abdomen, Pelvis - W/Contrast; Complete Time: 23:14 kdr 01/13 20:34 Order name: EKG; Complete Time: 20:35 as01/13 20:34 Order name: Cardiac monitoring; Complete Time: 20:35 as6 01/13 20:34 Order name: EKG - Nurse/Tech; Complete Time: 20:35 as6 01/13 20:34 Order name: IV Saline Lock; Complete Time: 20:35 as01/13 20:34 Order name: Labs collected and sent; Complete Time: 20:35 01/13 20:34 Order name: O2 Per Protocol; Complete Time: 20:35 01/13 20:34 Order name: O2 Sat Monitoring; Complete Time: 20:35 Administered Medications: 01/13 23:31 Drug: Ibuprofen PO 600 mg Route: PO; as6 23:31 Follow up: Response: No adverse reaction as6 23:31 Drug: predniSONE PO 40 mg Route: PO; as6 23:31 Follow up: Response: No adverse reaction as6 Disposition Summary: 01/13/23 23:20 Discharge Ordered Location: Home kdr Problem: an ongoing problem kdr Symptoms: are unchanged kdr Condition: Stable kdr Diagnosis - Dyspnea kdr - Abnormal weight loss kdr Followup: kdr - With: Private Physician - When: 2 - 3 days - Reason: If symptoms return, Further diagnostic work-up, Recheck today's complaints, Continuance of care, Re-evaluation by your physician Discharge Instructions: - Discharge Summary Sheet kdr - Shortness of Breath, Adult, [id number] kdr - Preventing Consequences of Unhealthy Weight Loss Behaviors, Adult kdr Forms: - Medication Reconciliation Form kdr - Thank You Letter kdr Prescriptions: - Ibuprofen 600 mg Oral Tablet - take 1 tablet by ORAL route every 6 hours As needed take with food; 12 tablet; kdr Refills: 0, Product Selection Permitted - Medrol (Ronni) 4 mg Oral Tablets, Dose Pack - take 1 tablet by ORAL route as directed - follow package instructions; 1 kdr packet; Refills: 0, Product Selection Permitted Signatures: Dispatcher [employer] Toy West MD MD kdr Eulalio Vega RN RN as6 Yumiko Singh RN RN aa9
--- NOTE | 2023-01-13 23:21 | ER ---
Nurse's Notes [facility] Name: Maylin Zuniga Age: 22 yrs Sex: Female : 2000 Arrival Date: 01/13/2023 Time: 19:11 Bed 6 Private MD: Diagnosis: Dyspnea;Abnormal weight loss Presentation: 01/13 19:44 Chief complaint: Patient states: I just can't breathe very well, I have been the doctor aa9 and they can't tell me why. I do not have an appetitive and I know I am not . my chest and shoulder blades hurt when I breath. Coronavirus screen: Vaccine status: Patient reports receiving the 2nd dose of the covid vaccine. Ebola Screen: No symptoms or risks identified at this time. Initial Sepsis Screen: Does the patient meet any 2 criteria? No. Patient's initial sepsis screen is negative. Does the patient have a suspected source of infection? No. Patient's initial sepsis screen is negative. Risk Assessment: Do you want to hurt yourself or someone else? Patient reports no desire to harm self or others. Onset of symptoms was January 13, 2023. 19:44 Method Of Arrival: Ambulatory aa9 19:44 Acuity: VINNY 3 aa9 Triage Assessment: 19:48 General: Appears comfortable, slender, Behavior is calm, cooperative. Pain: Complains aa9 of pain in chest, jacky shoulder blades Pain at worst was 10 out of 10 on a pain scale. Aggravated by breathing in. Neuro: Level of Consciousness is awake, alert, obeys commands, Oriented to person, place, time, situation. Cardiovascular: Patient's skin is warm and dry. Respiratory: Reports shortness of breath at rest pain with movement pain with respiration Airway is patent Respiratory effort is even, unlabored, Onset: The symptoms/episode began/occurred a week ago, the patient has mild shortness of breath. GI: Patient currently denies diarrhea, nausea, vomiting. : No signs and/or symptoms were reported regarding the genitourinary system. 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 - Social history:: Smoking status: Reported history of juuling and/or vaping. Screenin:03 [facility] ED Fall Risk Assessment (Adult) History of falling in the last 3 months, rv including since admission No falls in past 3 months (0 pts). Abuse screen: Denies threats or abuse. Denies injuries from another. Nutritional screening: No deficits noted. Tuberculosis screening: No symptoms or risk factors identified. Assessment: 20:00 General: Appears comfortable, Behavior is calm, cooperative. Pain: Complains of pain in rv chest. 20:00 Neuro: Level of Consciousness is awake, alert, obeys commands, Oriented to person, rv place, time, situation. Cardiovascular: Reports chest pain, Capillary refill < 3 seconds Rhythm is sinus rhythm. Respiratory: Airway is patent Respiratory effort is even, unlabored, Breath sounds are clear bilaterally. GI: No deficits noted. No signs and/or symptoms were reported involving the gastrointestinal system. : No deficits noted. No signs and/or symptoms were reported regarding the genitourinary system. Vital Signs: 19:44 BP 138 / 97; Pulse 84; Resp 18 S; Temp 98.5; Pulse Ox 98% on R/A; Weight 66.22 kg (R); aa9 Height 5 ft. 4 in. (R); 20:58 BP 130 / 86; Pulse 64; Resp 16; Pulse Ox 99% on R/A; rv 22:03 BP 134 / 76; Pulse 66; Resp 16; Pulse Ox 100% on R/A; rv 19:44 Body Mass Index 25.06 (66.22 kg, 162.56 cm) aa9 Cornelio Coma Score: 20:58 Eye Response: spontaneous(4). Motor Response: obeys commands(6). Verbal Response: rv oriented(5). Total: 15. ED Course: 19:12 Patient arrived in ED. ag3 19:34 Toy Bradshaw MD is Attending Physician. kdr 19:46 Triage completed. aa9 19:50 Arm band placed on left wrist. aa9 19:51 Eulalio Vega, RN is Primary Nurse. as6 20:00 Patient has correct armband on for positive identification. Placed in gown. Bed in low rv position. Call light in reach. Side rails up X 1. Adult w/ patient. 20:00 Client placed on continuous cardiac and pulse oximetry monitoring. NIBP monitoring rv applied. nuclear monitoring technician on. 20:30 Inserted saline lock: 20 gauge in right antecubital area, using aseptic technique. rv Blood collected. 20:47 XRAY Chest (1 view) In Process Unspecified. EDMS 22:18 CT Chest, Abdomen, Pelvis - W/Contrast In Process Unspecified. EDMS 23:31 No provider procedures requiring assistance completed. IV discontinued, intact, as6 bleeding controlled, No redness/swelling at site. Pressure dressing applied. Administered Medications: 23:31 Drug: Ibuprofen PO 600 mg Route: PO; as6 23:31 Follow up: Response: No adverse reaction as6 23:31 Drug: predniSONE PO 40 mg Route: PO; as6 23:31 Follow up: Response: No adverse reaction as6 Medication: 21:03 VIS not applicable for this client. rv Outcome: 23:20 Discharge ordered by . kdr 23:31 Discharged to home ambulatory, with family. as6 23:31 Condition: stable 23:31 Discharge instructions given to patient, Instructed on discharge instructions, follow up and referral plans. medication usage, Demonstrated understanding of instructions, follow-up care, medications, Prescriptions given X 2. 23:32 Patient left the ED. as6 Signatures: Dispatcher [employer] EDNE Toy Bradshaw MD MD [facility] Sudhir Conway RN RN Julia Rosas ag3 Eulalio Vega, RN RN as6 Yumiko Singh, BILLIE RN aa9 Corrections: (The following items were deleted from the chart) 19:54 19:44 Chief complaint: Patient states: I just can't breathe very well, I have been the aa9 doctor and they can't tell me why. I do not have an appetitive and I know I am . my chest and shoulder blades hurt when I breath aa9 19:54 19:44 BP 138 / 97; Pulse 84bpm; Resp 18bpm; Spontaneous; Pulse Ox 98% RA; Temp 98.5F; aa9 58.97 kg Reported; Height 5 ft. 4 in. Reported; BMI: 22.3; aa9
[2023-01-13] MEDS ORDERED: predniSONE 20 MG TAB ONE (23:34)
[2023-01-13] MEDS ORDERED: IBUPROFEN 400 MG TAB ONE (23:34)
[2023-01-13] MEDS ORDERED: IBUPROFEN 200 MG TAB PO ONE (23:34)
[2023-01-13 23:40] VITALS: TEMP 98.5
[2023-01-13 23:43] VITALS: BP 134/76; O2SAT 100
--- NOTE | 2023-01-14 10:15 | EKG ---
Test Date: 2023-01-13 Test Time: 20:01:13 School Psychology Professor: ALOK MEASUREMENT RESULTS: Intervals: Rate: 63 NE: 116 QRSD: 90 QT: 372 QTc: 380 [place]: P: 58 NE: 116 QRS: 88 T: 224 INTERPRETIVE STATEMENTS: Normal sinus rhythm ST & T wave abnormality, consider inferior ischemia ST & T wave abnormality, consider anterolateral ischemia Abnormal ECG Compared to ECG 09/27/2022 01:02:34 ST (T wave) deviation now present Possible ischemia now present Atrial premature complex(es) no longer present T-wave abnormality no longer present Electronically Signed On 01-14-23 10:13:33 CDT by Artis Adams
== END 2023-01-13 23:32 | disposition home or self-care (01) ==
LOC: ER 19:11
DX: R06.00 Dyspnea, unspecified (principal); R63.4 Abnormal weight loss; F41.9 Anxiety disorder, unspecified; F32.A Depression, unspecified
CPT/HCPCS: 93005; 85025; 81001; 80048; 36415; 81025; 84484; 71260; 74177; 71045; 99284; Q9967; J7512

== ENCOUNTER 2023-05-01 11:03 | Emergency (ER) | payer OTHER ==
--- OUTSIDE RECORDS SUMMARY | 2023-05-01 11:15 | XMS REPORT | Continuity of Care Document ---
:2000 Author Organization [facility] t Address [address] [place] [address] [place] [id number] Care Team Providers Name Role Phone LESLIE CASTELLANOS Primary Care Physician Unavailable ELIZA BOWERS Attending Clinician Unavailable Rahel Aguilar Attending Clinician RAHEL GRANT Attending Clinician Unavailable Eliza Heller Attending Clinician 2, [facility] Attending Clinician Unavailable LESLIE CASTELLANOS Attending Clinician Unavailable Emanuel Leslie CLEMENT Attending Clinician [phone] YAW LEIVA Attending Clinician Unavailable Yaw Leiva DO Attending Clinician Nurse, [facility] Attending Clinician Unavailable Unknown, Attending Attending Clinician Unavailable UNKNOWN, ATTENDING Attending Clinician Unavailable BAILEE LIZ Attending Clinician Unavailable Doctor Unassigned, [place] Attending Clinician Unavailable aCrla Franklin CNM Attending Clinician CARLA FRANKLIN Attending Clinician Unavailable [facility]ending [facility]ician Unavailable ROSALES CHAPIN Attending Clinician Unavailable ROSALES CHAPIN Attending Clinician Unavailable ROSALES KIMBALL Attending Clinician Unavailable Jacob Joseph Attending Clinician BARRIENTOS, ROSHUNDA R Attending Clinician Unavailable Visit, [facility] Nurse Attending Clinician Unavailable ALIVIA ERNANDEZ Attending Clinician Unavailable Alivia Swanson Attending Clinician CINDY APARICIO Attending Clinician Unavailable Robert WISE, Rayne Godoy Attending Clinician Unavailable NI ALVAREZ Attending Clinician Unavailable Joel Matt DO Attending Clinician Alysia JENNINGS, Elena Attending Clinician Provider, [facility] Attending Clinician Unavailable ELENA HATFIELD Attending Clinician Unavailable Fletcher Ramesh MD Attending Clinician Frank WISE, Ethel Attending Clinician Unavailable Rajtracie_P Attending Clinician Unavailable Alvin Nobles Attending Clinician YAW LEIVA Admitting Clinician Unavailable Radha_Alfredo Admitting Clinician Unavailable Payers Payer Name Policy Type Policy Number Effective Date Expiration Date S [facility] [facility] [id number] 2019 00:00:00 [place] [id number] 2019 00:00:00 Problems Condition Condition Condition Status Onset Resolution Last Treating Co mments Source Name Details Category Date Date Treatment Clinician Date Chlamydia Chlamydia Disease Active Uni vers trachomati trachomati 2-13 it y of s s 00:00: [place] infection infection 00 Medi danni of lower of lower Branch genitourin genitourin jeremy sites jeremy sites Need for Need for Disease Active Unive rs prophylact prophylact 3-24 it y of ic ic 00:00: [place] vaccinatio vaccinatio 00 Me dical n and n and Branch inoculatio inoculatio n against n against influenza influenza Feeling Feeling Disease Active Univers sad sad 5-21 ity of 00:00: [address] Encounter Encounter Disease Active Uni vers for other for other 5-07 ity of general general 00:00: [place] counseling counseling 00 Me dical or advice or advice Bran ch on on contracept contracept ion ion Absence of Absence of Disease Active U nivers menstruati menstruati 3-24 it y of on on 00:00: [place] 00 Medical Branch Breast Breast Disease Active Univers tenderness tenderness 3-24 it y of in female in [place] Class 1 Class 1 Disease Active Univers obesity obesity 3-24 ity of due to due to 00:00: [place] excess excess 00 Medical calories calories Branch with with serious serious comorbidit comorbidit y and body y and body mass index mass index (BMI) of (BMI) of 34.0 to 34.0 to 34.9 in 34.9 in adult adult BMI BMI Disease Active Univers 34.0-34.9, 34.0-34.9, 3-24 it y of adult adult 00:00: [place] [address] Medical Branch Elevated Elevated Disease Active Unive rs blood blood 2-21 ity of pressure pressure 00:00: [place] reading reading 00 Medical without without Branch diagnosis diagnosis of of hypertensi hypertensi on on Other Other Disease Active Univers depression depression 1-09 it y of 00:00: [place] [facility] Nexplanon Nexplanon Disease Active Uni vers removal removal -09 ity of 00:00: [place] [address] Medical Branch Screening Screening Disease Active Uni vers examinatio examinatio -09 it y of n for STD n for STD 00:00: [place] (sexually (sexually 00 Medi danni transmitte transmitte Br anch d disease) d disease) BMI BMI Disease Active 2018-08 Univers 27.0-27.9, 27.0-27.9, 0-16 it y of adult adult 00:00: [place] [facility] BMI BMI Disease Active 2018-08 Univers 29.0-29.9, 29.0-29.9, 0-16 it y of adult adult 00:00: [place] [facility] HPV HPV Disease Active 2018-08 Univers vaccine vaccine 0-16 ity of counseling counseling 00:[place] [facility] Branch Over Over Disease Active 2018-08 Univers weight weight 0-16 ity of 00:00: [place] [address] Medical Branch Lump or Lump or Disease Active Univers mass in mass in 4-13 ity of breast breast 00:00: [place] [address] Medical Branch Allergies, Adverse Reactions, Alerts Allergy Allergy Status Severity Reaction(s) Onset Inactive Treating Comm ents Source Name Type Date Date Clinician NO KNOWN Drug Active Univers ALLERGIE Class ity of S [place] [facility] Social History Social Habit Start Date Stop Date Quantity Comments Source Gender identity [facility] [place] [facility] Sexual orientation [facility] [place] [facility] Alcohol intake 2023-04-24 2023-04-24 Current drinker Unive rsity of 00:00:00 00:00:00 of alcohol [place] [facility] (finding) Branch History of Social 2023-02-14 2023-02-14 Univers ity of function 00:00:00 00:00:00 [place] [facility] Exposure to 2022-12-24 2023-01-03 Not sure University of SARS-CoV-2 (event) 00:00:00 09:29:00 [place] [facility] History SDOH 2023-01-01 2023-01-01 [...] 2023-01-01 2023-01-01 3 Unive rsity of Connections Islam 00:00:00 00:00:00 [place] [facility] History SDOH Social 2023-01-01 2023-01-01 2 Unive rsity of Connections 00:00:00 00:00:00 [place] [facility] Membership Branch History SDOH Social 2023-01-01 2023-01-01 1 Unive rsity of Connections 00:00:00 00:00:00 [place] Medical Meetings Branch History SDOH Social 2023-01-01 2023-01-01 7 Unive rsity of Connections Living 00:00:00 00:00:00 [place] [facility] History SDOH 2023-01-01 2023-01-01 1 University o f Physical Activity 00:00:00 00:00:00 [place] M edical DPW Branch History SDOH 2023-01-01 2023-01-01 3 University o f Physical Activity 00:00:00 00:00:00 [place] M edical MPS Branch History SDOH Stress 2023-01-01 2023-01-01 5 Unive rsity of 00:00:00 00:00:00 [place] [facility] History SDOH 2023-01-01 2023-01-01 4 University o f Financial 00:00:00 00:00:00 [place] [facility] History SDOH Food 2023-01-01 2023-01-01 1 Univers ity of Worry 00:00:00 00:00:00 [place] [facility] History SDOH Food 2023-01-01 2023-01-01 2 Univers ity of Scarcity 00:00:00 00:00:00 [place] [facility] History SDOH 2023-01-01 2023-01-01 2 University o f Transport Med 00:00:00 00:00:00 [place] Medic al Branch History SDOH 2023-01-01 2023-01-01 2 University o f Transport Non-Med 00:00:00 00:00:00 [place] M edical Branch History SDOH 2023-01-01 2023-01-01 2 University o f Housing Unable to 00:00:00 00:00:00 [place] M edical Pay Branch History SDOH 2023-01-01 2023-01-01 1 University o f Housing Places 00:00:00 00:00:00 [place] Medi danni Lived Branch History SDOH 2023-01-01 2023-01-01 2 University o f Housing Homeless 00:00:00 00:00:00 [place] Me dical Last Year Branch Tobacco use and 2022-12-27 2022-12-27 Smokeless Universit y of exposure 00:00:00 00:00:00 tobacco non-user [place] Me dical Branch Alcohol Comment 2021-11-02 2021-11-02 social Universit y of 00:00:00 00:00:00 [facility] [place] Sex Assigned At [birth year] Universit y of 00:00:00 00:00:00 [facility] [place] Smoking Status Start Date Stop Date Source Never smoked tobacco [facility] [place] [facility] Medications Ordered Filled Start Stop Current Ordering Indication Dosage Frequency Signature Comments Components Source Medication Medication Date Date Medication? Clinician (SIG) Name Name omeprazole 2023-0 Yes [id number] 40mg Take 1 Univers 40 mg 9-07 capsule by ity of capsule 00:00: mouth in [place] 00 the Medical morning. Branch omeprazole 3-0 Yes [id number] 40mg Take 1 Univers 40 mg 9-07 capsule by ity of capsule 00:00: mouth in [place] 00 the Medical morning. Branch omeprazole 2023-0 Yes [id number] 40mg Take 1 Univers 40 mg 9-07 capsule by ity of capsule 00:00: mouth in [place] 00 the Medical morning. Branch ondansetron 3-0 Yes [id number] 8mg Take 1 Univers 8 mg tablet 8-24 tablet by ity of 00:00: mouth [place] 00 every 8 Medical (eight) Branch hours as needed for Nausea and Vomiting (N/V). ondansetron 3-0 Yes [id number] 8mg Take 1 Univers 8 mg tablet 8-24 tablet by ity of 00:00: mouth [place] 00 every 8 Medical (eight) Branch hours as needed for Nausea and Vomiting (N/V). ondansetron 3-0 Yes [id number] 8mg Take 1 Univers 8 mg tablet 8-24 tablet by ity of 00:00: mouth [place] 00 every 8 Medical (eight) Branch hours as needed for Nausea and Vomiting (N/V). ondansetron 3-0 Yes [id number] 8mg Take 1 Univers 8 mg tablet 8-24 tablet by ity of 00:00: mouth [place] 00 every 8 Medical (eight) Branch hours as needed for Nausea and Vomiting (N/V). omeprazole 2023-0 Yes [id number] 40mg Take 1 Univers 40 mg 8-21 capsule by ity of capsule 00:00: mouth in [place] 00 the Medical morning. Branch omeprazole 2023-0 Yes [id number] 40mg Take 1 Univers 40 mg 8-21 capsule by ity of capsule 00:00: mouth in [place] 00 the Medical morning. Branch omeprazole 2023-0 Yes [id number] 40mg Take 1 Univers 40 mg 8-21 capsule by ity of capsule 00:00: mouth in [place] 00 the Medical morning. Branch omeprazole 2023-0 Yes [id number] 40mg Take 1 Univers 40 mg 8-21 capsule by ity of capsule 00:00: mouth in [place] 00 the Medical morning. Branch omeprazole 2022-0 Yes [id number] 40mg Take 1 Univers 40 mg 8-21 capsule by ity of capsule 00:00: mouth in [place] 00 the Medical morning. Branch omeprazole 2022-0 3- No [id number] 40mg Take 1 Univers 40 mg 8-21 09-07 capsule by ity of capsule 00:00: 00:00 mouth in [place] 00 :00 the Medical morning. Branch omeprazole 2022-0 2022- No [id number] 40mg Take 1 Univers 40 mg 8-21 09-07 capsule by ity of capsule 00:00: 00:00 mouth in [place] 00 :00 the Medical morning. Branch VENLAFAXINE 2022-0 Yes [id number] 37.5mg TAKE 1 Univers XR 37.5 mg 8-02 CAPSULE BY ity of 24 hr 00:00: MOUTH [place] capsule 00 DAILY WITH Medica l BREAKFAST. Branch VENLAFAXINE 2022-0 Yes [id number] 37.5mg TAKE 1 Univers XR 37.5 mg 8-02 CAPSULE BY ity of 24 hr 00:00: MOUTH [place] capsule 00 DAILY WITH Medica l BREAKFAST. Branch VENLAFAXINE 2022-0 Yes [id number] 37.5mg TAKE 1 Univers XR 37.5 mg 8-02 CAPSULE BY ity of 24 hr 00:00: MOUTH [place] capsule 00 DAILY WITH Medica l BREAKFAST. Branch VENLAFAXINE 2022-0 Yes [id number] 37.5mg TAKE 1 Univers XR 37.5 mg 8-02 CAPSULE BY ity of 24 hr 00:00: MOUTH [place] capsule 00 DAILY WITH Medica l BREAKFAST. Branch VENLAFAXINE 2022-0 Yes [id number] 37.5mg TAKE 1 Univers XR 37.5 mg 8-02 CAPSULE BY ity of 24 hr 00:00: MOUTH [place] capsule 00 DAILY WITH Medica l BREAKFAST. Branch VENLAFAXINE 2022-0 Yes [id number] 37.5mg TAKE 1 Univers XR 37.5 mg 8-02 CAPSULE BY ity of 24 hr 00:00: MOUTH [place] capsule 00 DAILY WITH Medica l BREAKFAST. Branch VENLAFAXINE 2022-0 Yes [id number] 37.5mg TAKE 1 Univers XR 37.5 mg 8-02 CAPSULE BY ity of 24 hr 00:00: MOUTH [place] capsule 00 DAILY WITH Medica l BREAKFAST. Branch VENLAFAXINE 3-0 Yes [id number] 37.5mg TAKE 1 Univers XR 37.5 mg 8-02 CAPSULE BY ity of 24 hr 00:00: MOUTH [place] capsule 00 DAILY WITH Medica l BREAKFAST. Branch VENLAFAXINE 3-0 Yes [id number] 37.5mg TAKE 1 Univers XR 37.5 mg 8-02 CAPSULE BY ity of 24 hr 00:00: MOUTH [place] capsule 00 DAILY WITH Medica l BREAKFAST. Branch venlafaxine 2022-0 Yes [id number] 37.5mg Take 1 Univers XR 37.5 mg 7-06 capsule by ity of 24 hr 00:00: mouth [place] capsule 00 daily with Medica l breakfast. Branch venlafaxine 2022-0 Yes [id number] 37.5mg Take 1 Univers XR 37.5 mg 7-06 capsule by ity of 24 hr 00:00: mouth [place] capsule 00 daily with Medica l breakfast. Branch venlafaxine 2022-0 3- No [id number] 37.5mg Take 1 Univers XR 37.5 mg 7-06 08-02 capsule by it y of 24 hr 00:00: 00:00 mouth [place] capsule 00 :00 daily with Medica l breakfast. Branch SERTraline 2022-0 Yes [id number] 25mg Take 1 Univers 25 mg 5-25 tablet by ity of tablet 00:00: mouth in [place] 00 the Medical morning. Branch SERTraline 2022-0 Yes [id number] 25mg Take 1 Univers 25 mg 5-25 tablet by ity of tablet 00:00: mouth in [place] 00 the Medical morning. Branch SERTraline 2022-0 Yes [id number] 25mg Take 1 Univers 25 mg 5-25 tablet by ity of tablet 00:00: mouth in [place] 00 the Medical morning. Branch SERTraline 3-0 Yes [id number] 25mg Take 1 Univers 25 mg 5-25 tablet by ity of tablet 00:00: mouth in [place] 00 the Medical morning. Branch SERTraline 2022-0 Yes [id number] 25mg Take 1 Univers 25 mg 5-25 tablet by ity of tablet 00:00: mouth in [place] the Medical morning. Branch SERTraline 2022-0 Yes [id number] 25mg Take 1 Univers 25 mg 5-25 tablet by ity of tablet 00:00: mouth in [place] 00 the Medical morning. Branch SERTraline 2022-0 Yes [id number] 25mg Take 1 Univers 25 mg 5-25 tablet by ity of tablet 00:00: mouth in [place] 00 the Medical morning. Branch SERTraline 2022-0 3- No [id number] 25mg Take 1 Univers 25 mg 5-25 07-06 tablet by ity of tablet 00:00: 00:00 mouth in [place] 00 :00 the Medical morning. Branch SERTraline 2022-0 3- No [id number] 25mg Take 1 Univers 25 mg 5-25 07-06 tablet by ity of tablet 00:00: 00:00 mouth in [place] 00 :00 the Medical morning. Branch naproxen 2022-3- No [id number] 500mg Take 1 Univers (NAPROSYN) 5-25 06-05 tablet by ity of 500 mg 00:00: 04:59 mouth in [place] tablet 00 :00 the Medical morning Branch and 1 tablet in the evening. Take with meals. Do all this for 10 days. naproxen 2022-0 3- No [id number] 500mg Take 1 Univers (NAPROSYN) 5-25 06-05 tablet by ity of 500 mg 00:00: 04:59 mouth in [place] tablet 00 :00 the Medical morning Branch and 1 tablet in the evening. Take with meals. Do all this for 10 days. naproxen 2022-0 3- No [id number] 500mg Take 1 Univers (NAPROSYN) 5-25 06-05 tablet by ity of 500 mg 00:00: 04:59 mouth in [place] tablet 00 :00 the Medical morning Branch and 1 tablet in the evening. Take with meals. Do all this for 10 days. naproxen 3-0 3- No [id number] 500mg Take 1 Univers (NAPROSYN) 5-25 06-05 tablet by ity of 500 mg 00:00: 04:59 mouth in [place] tablet 00 :00 the Medical morning Branch and 1 tablet in the evening. Take with meals. Do all this for 10 days. naproxen 3-0 3- No [id number] 500mg Take 1 Univers (NAPROSYN) 5-25 06-05 tablet by ity of 500 mg 00:00: 04:59 mouth in [place] tablet 00 :00 the Medical morning Branch and 1 tablet in the evening. Take with meals. Do all this for 10 days. naproxen 3-0 3- No [id number] 500mg Take 1 Univers (NAPROSYN) 5-25 06-05 tablet by ity of 500 mg 00:00: 04:59 mouth in [place] tablet 00 :[address] [facility] morning Branch and 1 tablet in the evening. Take with meals. Do all this for 10 days. naproxen 2023-0 2023- No [id number] 500mg Take 1 Univers (NAPROSYN) 5-25 06-05 tablet by ity of 500 mg 00:00: 04:59 mouth in [place] tablet 00 :[address] [facility] morning Branch and 1 tablet in the evening. Take with meals. Do all this for 10 days. iopamidol 2022-0 3- No [id number] 100mL 100 mL, Univers (ISOVUE 5-19 05-19 Intravenou ity o f 370-500 mL) 03:00: 03:00 s, ONCE, 1 [place] injection 00 :00 dose, On Medica l 100 mL [place] Branch 12/27/22 at 2200, Routine norelgestro 2023-0 Yes [id number] 1{patch Apply 1 Univers min-ethinyl 5-11 } Patch to ity of estradiol 00:00: [facility]) 00 weekly. Medical 150-35 Branch mcg/24 hr patch norelgestro 2023-0 Yes [id number] 1{patch Apply 1 Univers min-ethinyl 5-11 } Patch to ity of estradiol 00:00: [facility]) 00 weekly. Medical 150-35 Branch mcg/24 hr patch norelgestro 2023-0 Yes [id number] 1{patch Apply 1 Univers min-ethinyl 5-11 } Patch to ity of estradiol 00:00: [facility]) 00 weekly. Medical 150-35 Branch mcg/24 hr patch norelgestro 2023-0 Yes [id number] 1{patch Apply 1 Univers min-ethinyl 5-11 } Patch to ity of estradiol 00:00: [facility]) 00 weekly. Medical 150-35 Branch mcg/24 hr patch norelgestro 2022-0 Yes [id number] 1{patch Apply 1 Univers min-ethinyl 5-11 } Patch to ity of estradiol 00:00: [facility]) 00 weekly. Medical 150-35 Branch mcg/24 hr patch norelgestro 2022-0 2022- No [id number] 1{patch Apply 1 Univers min-ethinyl 5-11 05-25 } Patch to ity of estradiol 00:00: 00:00 [facility] 00 :00 weekly. Medical 150-35 Branch mcg/24 hr patch norelgestro 2022-0 2022- No [id number] 1{patch Apply 1 Univers min-ethinyl 5-11 05-25 } Patch to ity of estradiol 00:00: 00:00 [facility] 00 :00 weekly. Medical 150-35 Branch mcg/24 hr patch doxycycline 2022-0 2022- No [id number] 100mg Take 1 Univers hyclate 100 213 10-02 capsule by i ty of mg capsule 00:00: 05:59 [facility] [place] 00 :00 every 12 Medical (twelve) Branch hours for 7 days. norelgestro 2022-0 Yes [id number] 1{patch Apply 1 Univers min-ethinyl 2-10 } Patch to ity of estradiol 00:00: [place] [address] 00 weekly. Medical mcg/24 hr Branch patch norelgestro 2022-0 Yes [id number] 1{patch Apply 1 Univers min-ethinyl 2-10 } Patch to ity of estradiol 00:00: [place] [address] 00 weekly. Medical mcg/24 hr Branch patch norelgestro 2022-0 Yes [id number] 1{patch Apply 1 Univers min-ethinyl 2-10 } Patch to ity of estradiol 00:00: [place] [address] 00 weekly. Medical mcg/24 hr Branch patch norelgestro 202-0 Yes [id number] 1{patch Apply 1 Univers min-ethinyl 2-10 } Patch to ity of estradiol 00:00: [place] [address] 00 weekly. Medical mcg/24 hr Branch patch norelgestro 202-0 Yes [id number] 1{patch Apply 1 Univers min-ethinyl 2-10 } Patch to ity of estradiol 00:00: skin [place] 150-35 00 weekly. Medical mcg/24 hr Branch patch norelgestro 2023-0 Yes [id number] 1{patch Apply 1 Univers min-ethinyl 2-10 } Patch to ity of estradiol 00:00: skin [place] 150-35 00 weekly. Medical mcg/24 hr Branch patch norelgestro 2023-0 Yes [id number] 1{patch Apply 1 Univers min-ethinyl 2-10 } Patch to ity of estradiol 00:00: skin [place] 150-35 00 weekly. Medical mcg/24 hr Branch patch norelgestro 2023-0 Yes [id number] 1{patch Apply 1 Univers min-ethinyl 2-10 } Patch to ity of estradiol 00:00: skin [place] 150-35 00 weekly. Medical mcg/24 hr Branch patch norelgestro 2023-0 Yes [id number] 1{patch Apply 1 Univers min-ethinyl 2-10 } Patch to ity of estradiol 00:00: skin [place] 150-35 00 weekly. Medical mcg/24 hr Branch patch norelgestro 3-0 Yes [id number] 1{patch Apply 1 Univers min-ethinyl 2-10 } Patch to ity of estradiol 00:00: skin [place] 150-35 00 weekly. Medical mcg/24 hr Branch patch norelgestro 2023-0 Yes [id number] 1{patch Apply 1 Univers min-ethinyl 2-10 } Patch to ity of estradiol 00:00: skin [place] 150-35 00 weekly. Medical mcg/24 hr Branch patch norelgestro 2023-0 Yes [id number] 1{patch Apply 1 Univers min-ethinyl 2-10 } Patch to ity of estradiol 00:00: skin [place] 150-35 00 weekly. Medical mcg/24 hr Branch patch norelgestro 2023-0 Yes [id number] 1{patch Apply 1 Univers min-ethinyl 2-10 } Patch to ity of estradiol 00:00: skin [place] 150-35 00 weekly. Medical mcg/24 hr Branch patch norelgestro 2023-0 Yes [id number] 1{patch Apply 1 Univers min-ethinyl 2-10 } Patch to ity of estradiol 00:00: skin [place] 150-35 00 weekly. Medical mcg/24 hr Branch patch norelgestro 2022-0 Yes [id number] 1{patch Apply 1 Univers min-ethinyl 2-10 } Patch to ity of estradiol 00:00: skin [place] 150-35 00 weekly. Medical mcg/24 hr Branch patch norelgestro 2022-0 Yes [id number] 1{patch Apply 1 Univers min-ethinyl 2-10 } Patch to ity of estradiol 00:00: skin [place] 150-35 00 weekly. Medical mcg/24 hr Branch patch norelgestro 2022-0 Yes [id number] 1{patch Apply 1 Univers min-ethinyl 2-10 } Patch to ity of estradiol 00:00: skin [place] 150-35 00 weekly. Medical mcg/24 hr Branch patch norelgestro 2022-0 Yes [id number] 1{patch Apply 1 Univers min-ethinyl 2-10 } Patch to ity of estradiol 00:00: skin [place] 150-35 00 weekly. Medical mcg/24 hr Branch patch norelgestro 2022-0 Yes [id number] 1{patch Apply 1 Univers min-ethinyl 2-10 } Patch to ity of estradiol 00:00: [facility] 150-35 00 weekly. Medical mcg/24 hr Branch patch norelgestro 2022-0 Yes [id number] 1{patch Apply 1 Univers min-ethinyl 2-10 } Patch to ity of estradiol 00:00: [facility] 150-35 00 weekly. Medical mcg/24 hr Branch patch norelgestro 2022-0 2023- No [id number] 1{patch Apply 1 Univers min-ethinyl 2-10 08-21 } Patch to ity of estradiol 00:00: 00:00 [facility] 150-35 00 :00 weekly. Medical mcg/24 hr Branch patch norelgestro 2022-0 2023- No [id number] 1{patch Apply 1 Univers min-ethinyl 2-10 08-21 } Patch to ity of estradiol 00:00: 00:00 skin [place] 150-35 00 :00 weekly. Medical mcg/24 hr Branch patch norgestimat 2021-0 Yes [id number] 1{tbl} Take 1 Univers e-ethinyl 7-07 tablet by ity o f estradioL 00:00: mouth [place] 0.18/0.215/ 00 daily. Medica l 0.25 mg-25 Branch mcg tablet norgestimat 2022- No [id number] 1{tbl} Take 1 Univers e-ethinyl 7-07 02-10 tablet by ity of estradioL 00:00: 00:00 mouth [place] 0.18/0.215/ 00 :00 daily. Medica l 0.25 mg-25 Branch mcg tablet norgestimat 2022- No [id number] 1{tbl} Take 1 Univers e-ethinyl 7-07 02-10 tablet by ity of estradioL 00:00: 00:00 mouth [place] 0.18/0.215/ 00 :00 daily. Medica l 0.25 mg-25 Branch mcg tablet norgestimat 2021- No [id number] 1{tbl} Take 1 Univers e-ethinyl 4-07 07-07 tablet by ity of estradioL 00:00: 00:00 mouth [place] 0.18/0.215/ 00 :00 daily. Medica l 0.25 mg-25 Branch mcg tablet benzonatate Yes [id number] 100mg Take 1 Univers 100 mg 3-07 capsule by ity of capsule 00:00: mouth 3 [place] 00 (three) Medical times Branch daily as needed for Cough. albuterol Yes [id number] 6{puff} Inhale 6 Univers 90 3-07 Puffs ity of mcg/actuati 00:00: every 4 [place] on inhaler 00 (four) Medical hours as Branch needed for Wheezing or Shortness of Breath. albuterol Yes [id number] 6{puff} Inhale 6 Univers 90 3-07 Puffs ity of mcg/actuati 00:00: every 4 [place] inhaler 00 (four) Medical hours as Branch needed for Wheezing or Shortness of Breath. albuterol Yes [id number] 6{puff} Inhale 6 Univers 90 3-07 Puffs ity of mcg/actuati 00:00: every 4 [place] inhaler 00 (four) Medical hours as Branch needed for Wheezing or Shortness of Breath. albuterol Yes [id number] 6{puff} Inhale 6 Univers 90 3-07 Puffs ity of mcg/actuati 00:00: every 4 [place] inhaler 00 (four) Medical hours as Branch needed for Wheezing or Shortness of Breath. albuterol Yes [id number] 6{puff} Inhale 6 Univers 90 3-07 Puffs ity of mcg/actuati 00:00: every 4 [place] inhaler 00 (four) Medical hours as Branch needed for Wheezing or Shortness of Breath. albuterol Yes [id number] 6{puff} Inhale 6 Univers 90 3-07 Puffs ity of mcg/actuati 00:00: every 4 [place] inhaler 00 (four) Medical hours as Branch needed for Wheezing or Shortness of Breath. albuterol Yes [id number] 6{puff} Inhale 6 Univers 90 3-07 Puffs ity of mcg/actuati 00:00: every 4 [place] inhaler 00 (four) Medical hours as Branch needed for Wheezing or Shortness of Breath. albuterol Yes [id number] 6{puff} Inhale 6 Univers 90 3-07 Puffs ity of mcg/actuati 00:00: every 4 [place] inhaler 00 (four) Medical hours as Branch needed for Wheezing or Shortness of Breath. albuterol Yes [id number] 6{puff} Inhale 6 Univers 90 3-07 Puffs ity of mcg/actuati 00:00: every 4 [place] inhaler 00 (four) Medical hours as Branch needed for Wheezing or Shortness of Breath. albuterol Yes [id number] 6{puff} Inhale 6 Univers 90 3-07 Puffs ity of mcg/actuati 00:00: every 4 [place] inhaler 00 (four) Medical hours as Branch needed for Wheezing or Shortness of Breath. albuterol Yes [id number] 6{puff} Inhale 6 Univers 90 3-07 Puffs ity of mcg/actuati 00:00: every 4 [place] inhaler 00 (four) Medical hours as Branch needed for Wheezing or Shortness of Breath. albuterol 2022- No [id number] 6{puff} Inhale 6 Univers 90 3-07 05-25 Puffs ity of mcg/actuati 00:00: 00:00 [place] 4 [place] inhaler 00 :00 (four) Medical hours as Branch needed for Wheezing or Shortness of Breath. albuterol 2022- No [id number] 6{puff} Inhale 6 Univers 90 10-16 05-25 Puffs ity of mcg/actuati 00:00[place] 00[place]00 [place] 4 [place] 00 :00 (four) Medical hours as Branch needed for Wheezing or Shortness of Breath. benzonatate 2022- No [id number] 100mg Take 1 Univers 100 mg 10-16 capsule by ity of capsule 00:00: 00:00 mouth 3 [place] 00 :00 (three) Medical times Branch daily as needed for Cough. benzonatate 2022- No [id number] 100mg Take 1 Univers 100 mg 10-16 capsule by ity of capsule 00:00: 00:00 mouth 3 [place] 00 :00 (three) Medical times Branch daily as needed for Cough. Vital Signs Vital Name Observation Time Observation Value Comments Source Systolic blood 2023-04-24 15:10:00 148 mm[Hg] Univer sity [facility] Diastolic blood 2023-04-24 15:10:00 99 mm[Hg] Unive [facility] Heart rate 2023-04-24 15:10:00 87 /min [facility] Body temperature 2023-04-24 15:10:00 37.11 Barby [facility] Respiratory rate 2023-04-24 15:10:00 18 /min [facility] Body height 2023-04-24 15:10:[address] [facility] Body weight 2023-04-24 15:10:[address] [facility] BMI 2023-04-24 15:10:00 22.96 kg/m2 [facility] Oxygen saturation in 2023-04-24 15:10:00 100 /min [facility] Arterial blood by [facility] Pulse oximetry Branch Systolic blood 2023-04-18 15:54:00 141 mm[Hg] Univer sity [facility] Diastolic blood 2023-04-18 15:54:00 73 mm[Hg] Unive rsity of [facility] Heart rate 2023-04-18 15:54:00 58 /min [facility] Body temperature 2023-04-18 15:54:00 36.28 Barby Univ ersity [facility] Respiratory rate 2023-04-18 15:54:00 18 /min Univ ersity [facility] Body height 2023-04-18 15:54:00 162.6 cm [facility] Body weight 2023-04-18 15:54:00 62.914 kg [facility] BMI 2023-04-18 15:54:00 23.81 kg/m2 Universi ty of [facility] Branch Systolic blood 2023-04-01 18:05:00 140 mm[Hg] Univer sity of pressure [facility] Diastolic blood 2023-04-01 18:05:00 87 mm[Hg] Unive rsity of pressure [facility] Heart rate 2023-04-01 18:02:00 97 /min [facility] Body temperature 2023-04-01 18:02:00 36 Barby [facility] Body height 2023-04-01 18:02:00 165.1 cm [facility] Body weight 2023-04-01 18:02:00 61.236 kg [facility] BMI 2023-04-01 18:02:00 22.47 kg/m2 [facility] Oxygen saturation in 2023-04-01 18:02:00 97 /min [facility] Arterial blood by [facility] Pulse oximetry Branch Systolic blood 2023-02-14 15:01:00 126 mm[Hg] Univer sity of [facility] Diastolic blood 2023-02-14 15:01:00 58 mm[Hg] Unive rsity of [facility] Heart rate 2023-02-14 15:01:00 70 /min Universi ty of [facility] Branch Body temperature 2023-02-14 15:01:00 36.61 Barby [address] [facility] Branch Respiratory rate 2023-02-14 15:01:00 18 /min Univ ersity of [facility] Branch Body height 2023-02-14 15:01:00 165.1 cm [facility] Body weight 2023-02-14 15:01:00 66.815 kg [facility]i [facility] BMI 2023-02-14 15:01:00 24.51 kg/m2 [facility] Oxygen saturation in 2023-02-14 15:01:00 100 /min University of Arterial blood by [facility] Pulse oximetry Branch Systolic blood 2023-01-03 14:37:00 130 mm[Hg] Univer sity of [facility] Diastolic blood 2023-01-03 14:37:00 85 mm[Hg] Unive rsity of [facility] Heart rate 2023-01-03 14:37:00 66 /min [facility] Body temperature 2023-01-03 14:37:00 36.28 Barby Univ [facility] Body height 2023-01-03 14:37:00 165.1 cm [facility] Body weight 2023-01-03 14:37:00 68.221 kg [facility] BMI 2023-01-03 14:37:00 25.03 kg/m2 [facility] Oxygen saturation in 2023-01-03 14:37:00 98 /min University of Arterial blood by [facility] Pulse oximetry Branch Systolic blood 2022-12-28 00:30:00 133 mm[Hg] Univer sity of [facility] Diastolic blood 2022-12-28 00:30:00 75 mm[Hg] Unive rsity of [facility] Heart rate 2022-12-28 00:30:00 82 /min [facility] Body temperature 2022-12-28 00:30:00 37.22 Barby Univ [facility] [place] [facility] Respiratory rate 2022-12-28 00:30:00 16 /min Univ ersity [facility] Body height 2022-12-28 00:30:00 165.1 cm [facility] Body weight 2022-12-28 00:30:00 67.858 kg [facility] BMI 2022-12-28 00:30:00 24.89 kg/m2 [facility] Oxygen saturation in 2022-12-28 00:30:00 100 /min University of Arterial blood by [place] [facility] Pulse oximetry Branch Systolic blood 2022-12-28 00:06:00 145 mm[Hg] Univer sity of [facility] Diastolic blood 2022-12-28 00:06:00 102 mm[Hg] Unive rsity of [facility] Heart rate 2022-12-28 00:06:00 88 /min [facility] Body temperature 2022-12-28 00:06:00 36.39 Barby Univ [facility] [place] [facility] Respiratory rate 2022-12-28 00:06:00 17 /min Univ ers[facility] Body weight 2022-12-28 00:06:00 67.813 kg [facility] [place] [facility] BMI 2022-12-28 00:06:00 25.66 kg/m2 [facility] Oxygen saturation in 2022-12-28 00:06:00 98 /min University of Arterial blood by [facility] Pulse oximetry Branch Systolic blood 2022-12-20 14:41:00 128 mm[Hg] Univer sity of [facility] Diastolic blood 2022-12-20 14:41:00 79 mm[Hg] Unive rsity of [facility] Heart rate 2022-12-20 14:41:00 79 /min [facility]i [facility] Body temperature 2022-12-20 14:41:00 36 Barby Univ [facility] [place] [facility] Respiratory rate 2022-12-20 14:41:00 18 /min Univ ers[facility] [place] [facility] Body height 2022-12-20 14:41:00 162.6 cm [facility] [place] [facility] Body weight 2022-12-20 14:41:00 69.854 kg [facility] [place] [facility] BMI 2022-12-20 14:41:00 26.43 kg/m2 [facility] [place] [facility] Systolic blood 2022-09-21 15:50:00 132 mm[Hg] Univer sity of [facility] Diastolic blood 2022-09-21 15:50:00 73 mm[Hg] Unive rsity of pressure [facility] Heart rate 2022-09-21 15:45:00 73 /min [facility]i [facility] Body temperature 2022-09-21 15:45:00 36.72 Barby Univ [facility] [place] [facility] Respiratory rate 2022-09-21 15:45:00 19 /min [facility] ersity [facility] Body height 2022-09-21 15:45:00 165.1 cm Universi ty of [facility] [place] Body weight 2022-09-21 15:45:00 76.068 kg Universi ty [facility] BMI 2022-09-21 15:45:00 27.91 kg/m2 Universi ty [facility] Systolic blood 2022-02-15 13:51:00 127 mm[Hg] Univer sity of [facility] Diastolic blood 2022-02-15 13:51:00 88 mm[Hg] Unive rsity of [facility] Heart rate 2022-02-15 13:51:00 71 /min Universi ty [facility] Body temperature 2022-02-15 13:51:00 36.11 Barby [facility] 2022-02-15 13:51:00 16 /min [facility] Body height 2022-02-15 13:51:00 165.1 cm Universi ty [facility] Body weight 2022-02-15 13:51:00 89.313 kg Universi [facility] BMI 2022-02-15 13:51:00 32.77 kg/m2 [facility] Procedures Procedure Date / Time Performing Clinician Source Performed POCT TEST 2023-04-24 15:42:00 Rahel Grant [facility] URINALYSIS 2023-04-24 15:38:00 Rahel Grant [facility] ASSIGNMENT OF BENEFITS 2023-04-24 15:20:04 Doctor Unassigned, No [facility] Name [facility] CONSENT/REFUSAL FOR 2023-04-24 15:04:50 Doctor Unassigned, No [facility] DIAGNOSIS AND TREATMENT [facility] POCT TEST 2023-04-18 00:00:[address] [facility] COMP. METABOLIC PANEL 2023-04-01 18:36:00 Eliza Bowers [facility] ([id number]) [facility] CBC WITH DIFF 2023-04-01 18:36:00 Eliza Bowers [facility] POCT URINALYSIS 2023-01-03 15:09:00 [place] [facility] POCT TEST 2023-01-03 15:09:[address] [facility] CT ABDOMEN PELVIS W 2022-12-28 02:03:46 Leiva Bro[facility] CONTRAST [facility] ASSIGNMENT OF BENEFITS 2022-12-28 01:22:25 Doctor Unassigned, No [facility] POCT TEST 2022-12-28 01:05:00 Singer [facility] LIPASE 2022-12-28 01:04[facility]00 [facility] 2022-12-28 01:04:00 [facility] COMP. METABOLIC PANEL 2022-12-28 01:04:00 Yaw Leiva [facility] ([id number]) [facility] CBC WITH DIFF 2022-12-28 01:04:00 Singer [facility] URINALYSIS 2022-12-28 01:04:00 [facility] CONSENT/REFUSAL FOR 2022-12-28 00:17:56 Doctor Unassigned, No [facility] DIAGNOSIS AND TREATMENT [facility] ASSIGNMENT OF BENEFITS 2022-12-20 14:26:08 Doctor Unassigned, No [facility] POCT TEST 2022-09-21 00:00:00 Carla Franklin [facility] Encounters Start End Encounter Admission Attending Care Care Encounter Source Date/Time Date/Time Type Type Clinicians Facility Department ID 2021-06-08 Emergency [facility] [id number] Univers [facility] 2023-04-24 2023-04-24 [facility] 1.2.840.114 [id number] [facility] 10:13:00 12:05:00 Rahel [place] 350.1.13.10 i ty [facility] 4.2.7.2.686 [facility] [id number] [place] [id number] Branch 2023-04-242023-04-24 Emergency X RUDY, [facility] ERT [id number] Univers 10:13:00 12:05:00 RAHEL oh [facility] 2023-04-18 2023-04-18 [id number] Univers 11:00:00 11:09:48 ELIZA oh [facility] 2023-04-18 2023-04-18 Office [facility] 1.2.840.114 [id number] Univers 11:00:00 11:09:48 Visit Elizaalbin [place] 350.1.13.10 i ty [place] [id number] Ne dical NAL [address] [facility] 2023-04-04 2023-04-04 Telephone [facility] [id number] Univers 00:00:00 00:00:00 Elizaalbin [place] 350.1.13.10 i [place] [id number] Ne dical NAL [address] [facility] 2023-04-01 2023-04-01 [facility] [id number] Univers 13:53:27 23:59:00 ELIZA oh [facility] 2023-04-01 2023-04-01 Hospital [facility] 1.2.840.114 [id number] Univers 13:45:00 23:59:00 Encounter Elizaalbin [place] 350.1.13.10 ity [facility] 4.2.7.2.[place] [id number] [facility] [address] [place] 2023-04-01 2023-04-01 [employer] Work Supervisor 2, Adc Lab [facility] 1.2.840.114 [id number] Univers 13:30:00 13:36:46 Visit Carlos Bowersantoine [place] 350.1.13.10 ity of [facility] 4.2.7.2.[place] [id number] Ne dical NAL [address] [facility] 2023-04-01 2023-04-01 Office [facility] 1.2.840.114 [id number] Univers 13:00:00 13:28:27 Visit Eliza [facility] 350.1.13.10 i ty [place] [id number] [address] 2023-03-14 2023-03-14 [facility] [id number] Univers 11:00:00 11:00:00 ELIZA ity [facility] 2023-03-09 2023-03-09 Refill [facility] 1.2.840.114 [id number] Univers 00:00:00 00:00:00 Eliza [facility] 350.1.13.10 i [place] [id number] [address] 2023-02-14 2023-02-14 Outpatient [facility] [id number] Univers 10:00:00 10:27:33 [facility] 2023-02-14 2023-02-14 Office [facility] 1.2.840.114 [id number] Univers 10:00:00 10:27:33 Visit Eliza [facility] 350.1.13.10 i ty [place] [id number] [address] 2023-01-23 2023-01-23 Outpatient [facility] [id number] Univers 14:30:00 14:30:00 LESLIE oh o f [facility] [place] 2023-01-10 2023-01-10 Outpatient [facility] [id number] Univers 00:00:00 00:00:00 ELIZA oh [facility] 2023-01-04 2023-01-04 Telephone [facility] 1.2.840.114 [id number] Univers 00:00:00 00:00:00 Leslie Curry CORDAGE SALES REPRESENTATIVE 350.1.13.[address] [facility] 4.2.7.2.686 Matt as MATERNAL [id number] [facility] ical & CHILD [address] [place] [address] 2023-01-03 2023-01-03 [employer] Work Supervisor 2, Adc Lab [facility] 1.2.840.114 [id number] Univers 10:15:00 10:30:00 Visit Eliza Bowers ELEANOR 350.1.13.10 ity [place] [id number] Ne dical NAL [address] [facility] 2023-01-03 2023-01-03 Outpatient R SOY [facility] [id number] Univers 09:30:00 10:13:42 ELIZA oh [facility] 2023-01-03 2023-01-03 Office [facility] 1.2.840.114 [id number] Univers 09:30:00 10:13:42 Visit Eliza ELEANOR 350.1.13.10 i ty [place] [id number] Ne dical NAL [address] [facility] 2023-01-03 2023-01-03 Telephone Emanuel [facility] 1.2.840.114 [id number] Univers 00:00:00 00:00:00 Leslie Curry CORDAGE SALES REPRESENTATIVE 350.1.13.10 ity [facility] 4.2.7.2.686 Matt as MATERNAL [id number] Med ical & CHILD 107 [facility] 2023-01-01 2023-01-01 Outpatient R EMANUEL [facility] [id number] Univers 15:15:00 15:15:00 LESLIE oh o f [facility] [place] 2023-01-01 2023-01-01 Outpatient R SOY [facility] [id number] Univers 08:30:00 08:30:00 ELIZA oh [facility] 2022-12-27 2022-12-27 Emergency X SINGER [facility] ERT [id number] Univers 19:33:00 21:29:00 YAW oh [facility] 2022-12-27 2022-12-27 Emergency [facility] [id number] Univers 19:33:00 21:29:00 Yaw [place] 350.1.13.10 i ty [place] [id number] [place] [id number] [place] 2022-12-27 2022-12-27 Nurse Nurse, Arcadio [facility] 1.2.840.114 [id number] Univers 19:00:00 19:20:00 Visit Unknown, [facility] 350.1.13.10 ity [facility] 4.2.7.2.686 Matt as CAROLYN?BLEA [id number] [address] MEDICAL OFFICE BUILDING 2022-12-27 2022-12-27 Outpatient R HENOK, [facility] [id number] Univers 19:00:00 19:00:00 ATTENDING ity [facility] 2022-12-27 2022-12-27 Outpatient R SHALONDA, [facility] [id number] Univers 19:00:00 19:00:00 BAILEE itnelli [facility] 2022-12-25 2022-12-25 Telephone [facility] 1..840.114 10 [id number] Univers 00:00:00 00:00:00 Leslie Curry CORDAGE SALES REPRESENTATIVE 350.1.13.[address] [facility] 4.2.7.2.686 Matt as MATERNAL [id number] Med ical & CHILD [address] [place] [address] 2022-12-20 2022-12-20 Outpatient [facility] [id number] Univers 10:00:00 10:58:56 LESLIE oh o f [facility] [place] 2022-12-20 2022-12-20 Office [facility] 1.2.635.044 [id number] Univers 10:00:00 10:58:56 Visit Leslie Curry CORDAGE SALES REPRESENTATIVE 350.1.13.[address] [facility] 4.2.7.2.686 Matt as MATERNAL [id number] [facility] ical & CHILD [address] [place] [address] 2022-12-20 2022-12-20 Orders Doctor BUTCHER 1.2.840.114 [id number] Univers 00:00:00 00:00:00 Only Unassigned, LEIGHA 350.1.13.10 ity of [place] [facility] 4.2.7.2.686 Matt as [id number] [address] 2022-09-24 2022-09-24 Case Roderick [facility] 1.2.840.114 [id number] Univers 00:00:00 00:00:00 Management Carla Lang CORDAGE SALES REPRESENTATIVE 350.1.13.10 ity of REGIONAL 4.2.7.2.686 Matt as MATERNAL [id number] [facility] ical & CHILD [address] [place] [address] 2022-09-21 2022-09-21 Outpatient R RODERICK [facility] [id number] Univers 09:30:00 10:18:05 [facility] 2022-09-21 2022-09-21 Office Provider, Pedro Bella [facility] 1 .2.840.114 [id number] Univers 09:30:00 10:18:05 Visit Carla Franklin CORDAGE SALES REPRESENTATIVE 350.1.13.1 0 ity of REGIONAL 4.2.7.2.686 Matt as MATERNAL [id number] [facility] & [address] 2022-09-21 2022-09-21 Letter [facility] 1.2.840.114 [id number] Univers 00:00:00 00:00:00 (Out) Carla Lang [employer]ORDAGE SALES REPRESENTATIVE 350.1.13.10 i ty of REGIONAL 4.2.7.2.686 Matt as MATERNAL [id number] [facility] & [address] 2022-09-07 2022-09-07 Outpatient R ROSALES CHAPIN [facility] [id number] Univers 08:30:00 08:30:00 [facility] 2022 Outpatient R HENOK [facility] [id number] Univers 13:40:00 13:40:00 ATTENDING ity [facility] 2022-02-15 2022-02-15 Office Floyd [facility] 1.2.840.114 [id number] Univers 09:00:00 09:18:29 Visit Jacob Love CORDAGE SALES REPRESENTATIVE 350.1.13.[address] [facility] 4.2.7.2.686 Matt as MATERNAL [id number] [facility] [address] [place] [address] 2022-02-15 2022-02-15 Outpatient R FLOYD [facility] [id number] Univers 09:00:00 09:18:29 ROSJHONYNDA ity o f [facility] [place] 2022-02-15 2022-02-15 Outpatient R FLOYD [facility] [id number] Univers 09:00:00 09:00:00 SHEILANDA adriano o [facility] 2022-02-15 2022-02-15 Outpatient R FLOYD [facility] [id number] Univers 09:00:00 09:00:00 SHEILANDA adriano o [facility] 2022-01-12 2022-01-12 Telephone Floyd [facility] [id number] [id number] Univers 00:00:00 00:00:00 [facility] Love CORDAGE SALES REPRESENTATIVE 350.1.13.[address] [facility] 4.2.7.2.686 Matt as MATERNAL [id number] [facility] CH[facility] [address] [place] [address] 2022-01-11 2022-01-11 [facility] 1.2.840.114 [id number] Univers 15:15:00 16:08:[address] [facility] al[facility]to oLve CORDAGE SALES REPRESENTATIVE 350.1.13.[address] [facility] 4.2.7.2.686 Matt as MATERNAL [id number] [facility] CH[facility] [address] [place] [address] 2022-01-11 2022-01-11 Outpatient Ivan BARRIENTOS [facility] [id number] Univers 15:15:00 16:08:32 SHEILANDA itnelli o [facility] 2022-01-11 2022-01-11 Outpatient Ivan BARRIENTOS [facility] [id number] Univers 15:15:00 15:15:00 ROSJHONYNDA ity o [facility] 2021-11-16 2021-11-16 Outpatient R [facility] [id number] Univers 10:30:00 10:30:00 ity of [facility] [place] 2021-11-16 2021-11-16 Outpatient Ivan BARRIENTOS [facility] [id number] Univers 08:00:00 08:20:47 SHEILANDA ity o f [facility] [place] 2021-11-16 2021-11-16 Nurse Visit, Arcadio-Rmchp Nurse [facility] 1.2 .840.114 [id number] Univers 08:00:00 08:20:47 Visit Sheila Barrientosrileymounika Love CORDAGE SALES REPRESENTATIVE 350.1.13.10 ity of REGIONAL 4.2.7.2.686 Matt as MATERNAL [id number] [facility] ical & CHILD [address] [place] [address] 2021-11-03 2021-11-03 Telephone Barrientos [facility] 1.2.959.271 [id number] Univers 00:00:00 00:00:00 Jacob R CORDAGE SALES REPRESENTATIVE 350.1.13.[address] [facility] 4.2.7.2.686 Matt as MATERNAL [id number] [facility] CHILD [address] [place] [address] 2021-11-02 2021-11-02 Office Floyd [facility] 1.2.840.114 [id number] Univers 10:30:00 11:58:09 Visit Jacob Love CORDAGE SALES REPRESENTATIVE 350.1.13.[address] [facility] 4.2.7.2.686 Matt as MATERNAL [id number] [facility] CH[facility] [address] [place] [address] 2021-11-02 2021-11-02 Outpatient Ivan BARRIENTOS [facility] [id number] Univers 10:30:00 11:58:09 SHEILANDA ity o f [facility] [place] 2021-11-02 2021-11-02 Outpatient Ivan BARRIENTOS [facility] [id number] Univers 10:30:00 11:58:09 SHEILANDA ity o f [facility] [place] 2021-11-02 2021-11-02 Outpatient Ivan BARRIENTOS [facility] [id number] Univers 10:30:00 10:30:00 SHEILANDA ity o f [facility] [place] 2021-11-02 2021-11-02 Outpatient Ivan BARRIENTOS [facility] [id number] Univers 10:30:00 10:30:00 SHEILANDA ity o f [facility] [place] 2021-11-02 2021-11-02 Orders Doctor HADLEY 1.2.840.114 [id number] Univers 00:00:00 00:00:00 Only Unassigned, LEIGHA 350.1.13.10 ity of [place] [facility] 4.2.7.2.686 Matt as [id number] [address] 2021-10-16 2021-10-16 Emergency X [facility] ERT [id number] Univers 19:47:00 20:32:00 FOLUSHO ity of [facility] [place] 2021-10-16 2021-10-16 Emergency [facility] 1.2.840.114 [id number] Univers 19:47:00 20:32:00 [facility] 350.1.13.10 ity of [place]2.7.2.686 [place] [facility] [id number] [address] 2021-08-01 2021-08-01 [facility] [id number] Univers 08:30:00 09:21:32 JACOB oh o f [facility] [place] 2021-08-01 2021-08-01 Office [facility] 1.2.840.114 [id number] Univers 08:30:00 09:21:32 Visit Jacob Love CORDAGE SALES REPRESENTATIVE 350.1.13.[address] [facility] 4.2.7.2.686 Matt as MATERNAL [id number] Med ical & CHILD [address] [place] [address] 2021-08-01 2021-08-01 Orders Doctor HADLEY 1.2.840.114 [id number] Univers 00:00:00 00:00:00 Only Unassigned, LEIGHA 350.1.13.10 ity of [place] [facility] 4.2.7.2.686 Matt as [id number] [address] 2021-07-31 2021-07-31 Telephone [facility] [id number] [id number] Univers 00:00:00 00:00:00 Jacob Love CORDAGE SALES REPRESENTATIVE 350.1.13.[address] [facility] 4.2.7.2.686 Matt as MATERNAL [id number] Med ical & CHILD 107 [facility] 2021-06-13 2021-06-13 Outpatient R MARKUS [facility] [id number] Univers 10:30:00 10:58:17 CINDY nelli [facility] 2021-06-13 2021-06-13 [facility] [id number] [employer] 10:01:19 10:58:17 Visit Cindy [employer]PRESENT[employer] [id number] [facility] [id number] Matt as MATERNAL [phone] ical & CHILD 111 [facility] 2021-06-13 2021-06-13 Outpatient R [facility] [id number] Univers 10:30:00 10:30:00 CINDY [facility] 2021-06-06 2021-06-06 [facility]phone [facility] [id number] Univers 00:00:00 00:00:00 Jacob Love [employer]ORDAGE SALES REPRESENTATIVE 350.1.13.10 [facility] 4.2.7.2.686 Matt as MATERNAL [phone] [facility] & CHILD [address] [place] [address] 2021-04-10 2021-04-10 Outpatient R EMANUEL [facility] [id number] Univers 10:00:00 10:00:00 LESLIE oh o f [facility] 2021-03-31 2021-03-31 Letter HADLEY Jones 1.2.840.114 [id number] Univers 00:00:00 00:00:00 (Out) Rayne AHUJA 350.1.13.[address] [facility] 4.2.7.2.686 Matt as [phone] [address] 2021-03-30 2021-03-30 Outpatient R ANTONIO [facility] [id number] Univers 12:30:00 12:30:00 NI [facility] 2020-12-30 2020-12-30 Office [facility] 1.2.840.114 [id number] Univers 09:29:12 10:10:09 Visit Roshunda R CORDAGE SALES REPRESENTATIVE 350.1.13.[address] [facility] 4.2.7.2.686 Matt as MATERNAL [phone] [facility] & CHILD [address] [place] [address] 2020-12-30 2020-12-30 Office [facility] 1.2.840.114 [id number] 09:29:12 10:10:09 Visit Marymario alberto R CORDAGE SALES REPRESENTATIVE 350.1.13.10 [facility] 4.2.7.2.686 MATERNAL [phone] & [address] 2020-12-30 2020-12-30 [facility] [id number] Univers 09:30:00 09:30:00 LESLIE [facility] 2020-12-30 2020-12-30 Outpatient R FLOYD [facility] [id number] Univers 08:45:00 08:45:00 JACOB [facility] 2020-12-16 2020-12-16 Office [facility] [id number] [id number] Univers 08:57:28 09:27:28 Visit Leslie Curry CORDAGE SALES REPRESENTATIVE 350.1.13.[address] [facility] 4.2.7.2.686 Matt as MATERNAL [phone] [facility] & [address] 2020-12-16 2020-12-16 [facility] [id number] Univers 09:00:00 09:00:00 LESLIE [facility] 2020-12-16 2020-12-16 Orders Doctor HADLEY 1.2.840.114 [id number] Univers 00:00:00 00:00:00 Only Unassigned, LEIGHA 350.1.13.10 ity of [place] [facility] 4.2.7.2.686 Matt as [phone] [address] 2020-12-02 2020-12-02 [facility] 1.2.840.114 [id number] Univers 00:00:00 00:00:00 Leslie C CORDAGE SALES REPRESENTATIVE 350.1.13.[address] [facility] 4.2.7.2.686 Matt as MATERNAL [phone] [facility] ical & CHILD [address] [place] [address] 2020-11-29 2020-11-29 Nurse Visit, Ang-Rmchp Nurse [facility] 1.2 .840.114 [id number] Univers 15:31:01 15:46:01 Visit FloydJacob CORDAGE SALES REPRESENTATIVE 350.1.13.[address] [facility] 4.2.7.2.686 Matt as MATERNAL [phone] [facility] ical & CHILD [address] [place] [address] 2020-11-29 2020-11-29 Outpatient R FLOYD [facility] [id number] Univers 15:30:00 15:30:00 JACOB oh o [facility] 2020-11-29 2020-11-29 Telephone Floyd [facility] 1.2.193.213 [id number] Univers 00:00:00 00:00:00 Jacob Love CORDAGE SALES REPRESENTATIVE 350.1.13.[address] [facility] 4.2.7.2.686 Matt as MATERNAL [phone] [facility] [address] [place] [address] 2020-11-02 2020-11-02 Office Floyd [facility] 1.2.840.114 [id number] Univers 10:16:29 11:05:27 Visit Marykhang Love CORDAGE SALES REPRESENTATIVE 350.1.13.[address] [facility] 4.2.7.2.686 Matt as MATERNAL [phone] [facility] [address] [place] [address] 2020-11-02 2020-11-02 Outpatient R FLOYD [facility] [id number] Univers 10:15:00 10:15:00 JACOB hannony o f [facility] 2020-11-02 2020-11-02 Orders Doctor HADLEY 1.2.840.114 [id number] Univers 00:00:00 00:00:00 Only Unassigned, LEIGHA 350.1.13.10 ity of [place] [facility] 4.2.7.2.686 Matt as [phone] [address] 2020-11-01 2020-11-01 Outpatient R FLOYD [facility] [id number] Univers 15:00:00 15:00:00 JAZLYNA ity o f [facility] 2020-11-01 2020-11-01 Patient [facility] 1.2.840.114 [id number] Univers 00:00:00 00:00:00 Outreach Joel PRIMARY 350.1.13.10 i ty of [facility] 4.2.7.2.686 [place] PHILL[place] [phone] [address] 2020-07-04 2020-07-04 Refvince [facility] 1.2.474.865 [id number] Univers 00:00:00 00:00:00 Leslie C CORDAGE SALES REPRESENTATIVE 350.1.13.[address] [facility] 4.2.7.2.686 Matt as MATERNAL [phone] [facility] [address] [place] [address] 2020-06-13 2020-06-13 Outpatient R AKINSIPE, [facility] [id number] Univers 09:15:00 09:15:00 LESLIE ity o f [facility] 2020-06-13 2020-06-13 Outpatient R AKINSIPE, [facility] [id number] Univers 09:15:00 09:15:00 LESLIE ity o f [facility] 2020-06-01 2020-06-01 [facility]vince [facility] 1.2.484.629 [id number] Univers 00:00:00 00:00:00 Leslie Curry CORDAGE SALES REPRESENTATIVE 350.1.13.10 ity [facility] 4.2.7.2.686 Matt as MATERNAL [id number] [facility] & CHILD [address] [place] [address] 2020-05-30 2020-05-30 [facility]ince [facility] 1.2.840.114 [id number] Univers 00:00:00 00:00:00 [facility] 350.1.13.10 it y of [place] 4.2.7.2.686 Matt as Professio [phone] [address] Office [address] [facility] 2020-05-27 2020-05-27 Outpatient R AKINSIPE, [facility] [id number] Univers 10:30:00 10:30:00 LESLIE ity o f [facility] 2020-05-27 2020-05-27 Outpatient R EMANUEL, [facility] [id number] Univers 10:30:00 10:30:00 LESLIE oh o f [facility] 2020-05-10 2020-05-10 Urgent Provider, [facility] 1.2.840.114 [id number] Univers 11:18:40 11:38:40 Care Elena [place] 350.1.13.10 [facility] 4.2.7.2.686 Matt as Professio [phone] [address] Office [address] [facility] 2020-05-10 2020-05-10 Outpatient R ALYSIA [facility] [id number] Univers 11:20:00 11:20:00 ELENA oh [facility] 2020-05-09 2020-05-09 [facility]phone [facility] 1.2.216.633 [id number] Univers 00:00:00 00:00:00 Jacob Love CORDAGE SALES REPRESENTATIVE 350.1.13.[address] [facility] 4.2.7.2.686 Matt as MATERNAL [phone] Med ical & CHILD [address] [place] [address] 2020-03-31 2020-03-31 Office [facility] 1.2.275.164 [id number] Univers 09:26:23 10:13:41 Visit Leslie Curry CORDAGE SALES REPRESENTATIVE 350.1.13.10 ity [facility] 4.2.7.2.686 Matt as MATERNAL [phone] [facility] & CHILD [address] [place] [address] 2020-03-31 2020-03-31 Outpatient R AKINFRANTZPE, [facility] [id number] Univers 09:00:00 09:00:00 LESLIE oh o f [facility] 2020-03-11 2020-03-11 Telephone [facility] 1.2.840.114 [id number] Univers 00:00:00 00:00:00 Leslie Curry CORDAGE SALES REPRESENTATIVE 350.1.13.[address] [facility] 4.2.7.2.686 Matt as MATERNAL [phone] [facility] & CHILD [address] [place] [address] 2020-03-10 2020-03-10 Outpatient R AKINSIPE, [facility] [id number] Univers 14:30:00 14:30:00 LESLIE oh o f [facility] 2020-03-10 2020-03-10 Office [facility] 1.2.843.617 [id number] Univers 10:09:10 11:09:52 Visit Leslie Patricio CORDAGE SALES REPRESENTATIVE 350.1.13.10 ity of [facility] 4.2.7.2.686 Matt as MATERNAL [phone] Med ical & CHILD [address] [place] [address] 2020-03-07 2020-03-07 Telephone [facility] 1.2.387.694 [id number] Univers 00:00:00 00:00:00 Roshunda R CORDAGE SALES REPRESENTATIVE 350.1.13.10 ity of [facility] 4.2.7.2.686 Matt as MATERNAL [id number] Med ical & CHILD [address] [place] [address] 2019-12-29 2019-12-30 Initial [facility] 1.2.840.114 [id number] Univers 13:01:04 11:33:02 Rosjhonynda R CORDAGE SALES REPRESENTATIVE 350.1.13.10 ity of Visit [facility] 4.2.7.2.686 Matt as MATERNAL [phone] Med ical & CHILD [address] [place] [address] 2019-12-30 2019-12-30 Patient Doctor [facility] 1.2.840.114 [id number] Univers 00:00:00 00:00:00 Secure Msg Unassigned, CORDAGE SALES REPRESENTATIVE 350.1.13.10 ity of [place] [facility] 4.2.7.2.686 Matt as MATERNAL [phone] Med ical & CHILD [address] [place] [address] 2019-12-30 2019-12-30 Patient Doctor [facility] 1.2.840.114 [id number] Univers 00:00:00 00:00:00 Secure Msg Unassigned, CORDAGE SALES REPRESENTATIVE 350.1.13.10 ity of [place] [facility] 4.2.7.2.686 Matt as MATERNAL [phone] Med ical & CHILD [address] [place] [address] 2019-12-29 2019-12-29 Office [facility] 1.2.840.114 [id number] Univers 14:04:59 14:20:25 Visit Jacob R CORDAGE SALES REPRESENTATIVE 350.1.13.[address] [facility] 4.2.7.2.686 Matt as MATERNAL [phone] [facility] ical & CHILD [address] [place] [address] 2019-12-29 2019-12-29 [facility] [id number] Univers 12:45:00 12:45:00 ROSJHONYNDA ity o f [facility] 2019-12-15 2019-12-15 Emergency [facility] [id number] [id number] Univers 07:30:05 08:20:00 [facility] 350.1.13.10 i ty [facility] 4.2.7.2.686 [facility] [phone] [address] 2019-12-14 2019-12-14 Patient Frank [facility] 1.2.840.114 [id number] Univers 00:00:00 00:00:00 Secure Ethel Grayson CORDAGE SALES REPRESENTATIVE 350.1.13.[address] [facility] 4.2.7.2.686 Matt as MATERNAL [phone] [facility] & CHILD [address] [place] [address] 2019-11-30 2019-11-30 Outpatient R [facility] [id number] Univers 08:30:00 08:30:00 ity of [facility] 2019-11-27 2019-11-27 Outpatient R [facility] [id number] Univers 09:30:00 09:30:00 ity of [facility] 2019-11-26 2019-11-26 Outpatient R [facility] [id number] Univers 09:00:00 09:00:00 ity [facility] 2019-11-26 2019-11-26 [facility]phone [facility] 1.2.641.870 [id number] Univers 00:00:00 00:00:00 Roskhang R CORDAGE SALES REPRESENTATIVE 350.1.13.[address] [facility] 4.2.7.2.686 Matt as MATERNAL [phone] [facility] & CHILD [address] [place] [address] 2019-11-24 2019-11-24 [facility] [id number] Univers 09:30:00 09:30:00 LESLIE ity o f [facility] 2019-11-03 2019-11-03 Outpatient Raju_P [facility] [id number] [place] 05:13:00 05:13:00 0324 [facility] 2019-10-27 2019-10-27 Patient Floyd [facility] 1.2.840.114 [id number] Univers 00:00:00 00:00:00 Secure Msg Jacob R CORDAGE SALES REPRESENTATIVE 350.1.13.[address] [facility] 4.2.7.2.686 Matt as MATERNAL [id number] [facility] [address] [place] [address] 2019-10-16 2019-10-16 Office [facility] 1.2.029.208 [id number] Univers 10:45:40 11:26:43 Visit Leslie C CORDAGE SALES REPRESENTATIVE 350.1.13.[address] [facility] 4.2.7.2.686 Matt as MATERNAL [id number] [facility] & [address] 2019-10-16 2019-10-16 Outpatient R AKINSIPE, [facility] [id number] Univers 10:45:00 10:45:00 LESLIE ity o f [facility] 2019-10-07 2019-10-07 Office [facility] 1.2.001.335 [id number] Univers 12:51:31 13:44:17 Visit [facility] C CORDAGE SALES REPRESENTATIVE 350.1.13.[address] [facility] 4.2.7.2.686 Matt as MATERNAL [phone] [facility] & CHILD [address] [place] [address] 2019-10-07 2019-10-07 Outpatient R AKINSIPE, [facility] [id number] Univers 13:00:00 13:00:00 LESLIE ity o f [facility] 2019-10-06 2019-10-06 Telephone [facility] 1.2.840.114 [id number] Univers 00:00:00 00:00:00 Leslie C CORDAGE SALES REPRESENTATIVE 350.1.13.[address] [facility] 4.2.7.2.686 Matt as MATERNAL [phone] [facility] [address] [place] [address] 2019-10-02 2019-10-02 Office [facility] 1.2.376.206 [id number] Univers 14:07:49 15:15:37 Visit Leslie Curry CORDAGE SALES REPRESENTATIVE 350.1.13.[address] [facility] 4.2.7.2.686 Matt as MATERNAL [id number] [facility] ical & CHILD [address] [place] [address] 2019-08-25 2019-08-25 Office [facility] 1.2.157.105 [id number] Univers 09:57:53 13:09:26 Visit Leslie Curry CORDAGE SALES REPRESENTATIVE 350.1.13.[address] [facility] 4.2.7.2.686 Matt as MATERNAL [id number] [facility] ical & CHILD [address] [place] [address] 2019-08-25 2019-08-25 Orders Doctor HADLEY 1.2.840.114 [id number] Univers 00:00:00 00:00:00 Only Unassigned, LEIGHA 350.1.13.10 ity of [place] [facility] 4.2.7.2.686 Matt as [phone] [address] 2019-08-25 2019-08-25 Letter [facility] 1.2.442.871 [id number] Univers 00:00:00 00:00:00 (Out) Leslie Curry CORDAGE SALES REPRESENTATIVE 350.1.13.[address] [facility] 4.2.7.2.686 Matt as MATERNAL [phone] [facility] ical & CHILD [address] [place] [address] 2019-03-05 2019-03-05 Emergency [facility] 1.2.076.080 [id number] Univers 22:28:42 23:12:00 Alvin [place] 350.1.13.10 i ty of [place]7.2.686 [place] [phone] [address] Results Test Description Test Time Test Comments Results Result Comments Source POCT TEST 2023-04-24 15:42:00 Test Item Value Reference Range Interpretation Comme nts POCT PREG (test code = 1605) Negative On board controls acceptable with C Line (test code = 3574) Yes POCT PREG LOT # (test code = 3575) [id number] POCT PREG TEST DATE (test code = 3576) 2024-08-14 Lab Interpretation (test code = 09469-5) [facility] [id number] 16:00:00 Test Item Value Reference Range Interpretation Comments POCT PREG (test code = 1605) Negative On board controls acceptable with C Yes Line (test code = 3574) POCT PREG LOT # (test code = 3575) POCT PREG TEST DATE (test code = 3576) [facility] [id number] 16:00:00 Test Item Value Reference Range Interpretation Comments POCT PREG (test code = 1605) Negative On board controls acceptable with C Yes Line (test code = 3574) POCT PREG LOT # (test code = 3575) POCT PREG TEST DATE (test code = 3576) [facility] URINALYSIS W SPECIFIC [id number] 15:11:00 Test Item Value Reference Range Interpretation Comments POCT U SP GRAV (test code = 1.005 mg/dl 1.005-1.025 3255) POCT PH U (test code = 3254) 5 mg/dl 5-8 POCT U LEUK EST (test code = Negative Negative - Negative 3) POCT U NIT (test code = 3262) Negative Negative - Negative POCT U PROT (test code = 30 Negative - Negative 3259) POCT U GLU (test code = 3256) Negative Negative - Negative POCT U KETONE (test code = Negative Negative - Negative 3258) POCT U UROBILI (test code = 2 mg/dl 0.2-1 A 0) POCT U BILI (test code = Negative Negative - Negative 3261) POCT U BLD (test code = 3257) large Negative - Negative POCT U COLOR (test code = Yellow 6) POCT U APPEAR (test code = clear 3266) Lab Interpretation (test code Abnormal = 31702-4) [facility] URINALYSIS W SPECIFIC [id number] 15:11:00 Test Item Value Reference Range Interpretation [...] 3267) Lab Interpretation (test code Abnormal = 14509-1) [facility] [id number] 15:09:00 Test Item Value Reference Range Interpretation Comments POCT PREG (test code = 1605) Negative On board controls acceptable with C Yes Line (test code = 3574) POCT PREG LOT # (test code = 3575) POCT PREG TEST DATE (test code = 3576) [facility] [id number] 15:09:00 Test Item Value Reference Range Interpretation Comments POCT PREG (test code = 1605) Negative On board controls acceptable with C Yes Line (test code = 3574) POCT PREG LOT # (test code = 3575) POCT PREG TEST DATE (test code = 3576) [facility] [id number] 02:02:22 Test Item Value Reference Range Interpretation Comments TSH (test code = 2.26 See_Comment [Automated message] [id number]) The system Rixty generated this result transmitted ref erence range: 0.45 - 4 .70 mIU/L. The refe rence range was not u sed to interpret this result as normal/abnor mal. Lab Interpretation (test Normal code = 68721-5) [facility]. METABOLIC PANEL (34810)2022-12-28 01:32:39 Test Item Value Reference Range Interpretation Comments NA (test code = 139 mmol/L 135-145 0624943805) K (test code = 3.4 mmol/L 3.5-5.0 L 4136797059) CL (test code = 103 mmol/L 98-108 8275471594) CO2 TOTAL (test code = 24 mmol/L 23-31 8001766277) AGAP (test code = 12 2-16 2227220659) BUN (test code = 8 mg/dL 7-23 5824467142) GLUCOSE (test code = 121 mg/dL 70-110 H 5972170993) CREATININE (test code = 0.57 mg/dL 0.50-1.04 2216192504) TOTAL BILI (test code = 1.0 mg/dL 0.1-1.2 5222785207) CALCIUM (test code = 9.2 mg/dL 8.6-10.6 1687097948) T PROTEIN (test code = 6.9 g/dL 6.3-8.2 8495525305) ALBUMIN (test code = 4.4 g/dL 3.5-5.0 9814797252) ALK PHOS (test code = 47 U/L 34-122 7836743935) ALTv (test code = 16 U/L 5-35 1742-6) AST(SGOT) (test code = 22 U/L 13-40 7744222922) eGFR (test code = 133.9 mL/min/1.73m2 3682603903) VICENTE (test code = VICENTE) Association of [...] tests). Lab Interpretation Abnormal (test code = 87870-8) [id number] 01:32:19 Test Item Value Reference Range Interpretation Comments LIPASE (test code = 1914331025) 67 U/L 0-220 Lab Interpretation (test code = Normal 56431-9) [facility] WITH [id number] 01:20:58 Test Item Value Reference Range Interpretation Comments WBC (test code = 9.89 See_Comment [Automated 9640-2) message] The sy stem which generated this result transmitted reference range : 4.30 - 11.10 10*3/?L. The reference range was not used to interpret this result as normal/abnormal . RBC (test code = 4.29 See_Comment [Automated 881-8) message] The sy stem which generated this [...] (test code = 38.2 fL 39.0-49.9 L 50650-6) RDW-CV (test code = 11.9 % 12.0-15.5 L 788-0) PLT (test code = 177 See_Comment [Automated 314-3) message] The sy stem which generated this result transmitted reference range : 166 - 358 10*3/ ?L. The reference r kim was not used to interpret this result as normal/abnormal . MPV (test code = 11.6 fL 9.5-12.9 71546-3) NRBC/100 WBC (test 0.0 See_Comment [Automat ed code = 1888751636) message] The system which generated this result transmitted reference range : 0.0 - 10.0 /100 WBCs. The refer ence range was not u sed to interpret th is result as normal/abnormal . NRBC x10^3 (test code See_Comment [Auto mated = 6287518037) message] The s ystem which generated this result transmitted reference range : 10*3/?L. The reference range was not used to interpret this result as normal/abnormal . GRAN MAT (NEUT) % 64.1 % (test code = 770-8) IMM GRAN % (test code 0.30 % = 2850116379) LYMPH % (test code = 28.1 % 736-9) MONO % (test code = 5.8 % 5905-5) EOS % (test code = 1.3 % 713-8) BASO % (test code = 0.4 % 706-2) GRAN MAT x10^3(ANC) 6.34 10*3/uL 1.88-7.09 (test code = 9736649490) IMM GRAN x10^3 (test 0.03 10*3/uL 0.00-0.06 code = 9214420299) LYMPH x10^3 (test code 2.78 10*3/uL 1.32-3.29 = 731-0) MONO x10^3 (test code 0.57 10*3/uL 0.33-0.92 = 742-7) EOS x10^3 (test code = 0.13 10*3/uL 0.03-0.39 711-2) BASO x10^3 (test code 0.04 10*3/uL 0.01-0.07 = 704-7) Lab Interpretation Abnormal (test code = 47461-2) [facility] [id number] 01:05:00 Test Item Value Reference Range Interpretation Comments POCT PREG (test code = 1605) Negative On board controls acceptable with Yes C Line (test code = 3574) POCT PREG LOT # (test code = 3575) [id number] POCT PREG TEST DATE (test 2024-03-19 code = 3576) Lab Interpretation (test code = Normal 07466-3) [facility] [id number] 15:47:00 Test Item Value Reference Range Interpretation Comments POCT PREG (test code = 1605) Negative On board controls acceptable with C Yes Line (test code = 3574) POCT PREG LOT # (test code = 3575) POCT PREG TEST DATE (test code = 3576) [facility] [id number] 15:47:00 Test Item Value Reference Range Interpretation Comments POCT PREG (test code = 1605) Negative On board controls acceptable with C Yes Line (test code = 3574) POCT PREG LOT # (test code = 3575) POCT PREG TEST DATE (test code = 3576) [facility]"
[2023-05-01] MEDS ORDERED: LIDOCAINE 1% MPF 5 ML VIAL ONE (11:48)
[2023-05-01] MEDS ORDERED: ACETAMINOPHEN 500 MG TAB ONE (11:49)
--- NOTE | 2023-05-01 12:47 | ER ---
Nurse's Notes [facility] Name: Maylin Zuniga Age: 22 yrs Sex: Female : 2000 Arrival Date: 05/01/2023 Time: 11:03 Bed 10 Private MD: Diagnosis: Cutaneous abscess to right wrist Presentation: 05/01 11:31 Chief complaint: Patient states: Abscess to R wrist, started Saturday, no fever. ph Coronavirus screen: Vaccine status: Patient reports receiving the 2nd dose of the covid vaccine. Ebola Screen: No symptoms or risks identified at this time. Initial Sepsis Screen: Does the patient meet any 2 criteria? No. Patient's initial sepsis screen is negative. Does the patient have a suspected source of infection? No. Patient's initial sepsis screen is negative. Risk Assessment: Do you want to hurt yourself or someone else? Patient reports no desire to harm self or others. Onset of symptoms was May 01, 2023. 11:31 Method Of Arrival: Ambulatory 11:31 Acuity: VINNY 4 ph Triage Assessment: 11:36 General: Appears in no apparent distress. comfortable, Behavior is calm, cooperative, ph appropriate for age, Denies fever. Pain: Complains of pain in right wrist. Neuro: Level of Consciousness is awake, alert, obeys commands, Oriented to person, place, time, situation. Cardiovascular: Capillary refill < 3 seconds in bilateral fingers Patient's skin is warm and dry. Respiratory: Airway is patent Respiratory effort is even, unlabored. Derm: Abscess located on right wrist is dime sized. 12:55 Bite description: bite sustained to right arm by an unknown animal, animal information: ll1 vaccination(s) is not applicable. 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 - Social history:: Smoking status: Patient denies any tobacco usage or history of. - Family history:: not pertinent. Screenin:33 [facility] ED Fall Risk Assessment (Adult) History of falling in the last 3 months, ph including since admission No falls in past 3 months (0 pts) Confusion or Disorientation No (0 pts) Intoxicated or Sedated No (0 pts) Impaired Gait No (0 pts) Mobility Assist Device Used No (0 pt) Altered Elimination No (0 pt) Score/Fall Risk Level 0 - 2 = Low Risk Oriented to surroundings, Maintained a safe environment, Hourly rounding (assess needs \T\ fall precautionary measures) done, Used ambulatory aids as needed (educated on \T\ assisted with). Abuse screen: Denies threats or abuse. Denies injuries from another. Nutritional screening: No deficits noted. Tuberculosis screening: No symptoms or risk factors identified. Assessment: 11:31 Reassessment: No changes from previously documented assessment. Patient and/or family ll1 updated on plan of care and expected duration. Pain level reassessed. Patient is alert, oriented x 3, equal unlabored respirations, skin warm/dry/pink. 11:44 Reassessment: No changes from previously documented assessment. Patient and/or family ll1 updated on plan of care and expected duration. Pain level reassessed. 12:53 Reassessment: No changes from previously documented assessment. Patient and/or family ll1 updated on plan of care and expected duration. Pain level reassessed. 13:07 Derm: Skin is intact, Skin is pink, warm \T\ dry. ll1 Vital Signs: 11:31 BP 135 / 93; Pulse 79; Resp 18; Temp 98.1; Pulse Ox 99% on R/A; Weight 63.5 kg; Height ph 5 ft. 5 in. ; 12:53 BP 127 / 87; Pulse 98; Resp 18; Pulse Ox 99% ; ll1 11:31 Body Mass Index 23.30 (63.50 kg, 165.1 cm) ph ED Course: 11:09 Patient arrived in ED. mg5 11:15 Oleg Leal MD is Attending Physician. rt 11:31 Latoya Chauhan, BILLIE is Primary Nurse. ph 11:31 Arm band placed on Patient placed in an exam room, on a stretcher. ll1 11:32 Triage completed. ph 11:34 Patient has correct armband on for positive identification. Bed in low position. Call ph light in reach. Side rails up X 1. Pulse ox on. NIBP on. 11:37 No provider procedures requiring assistance completed. Patient did not have IV access ph during this emergency room visit. 13:07 Provided Education on: n/a. ll1 Administered Medications: 11:43 Drug: Acetaminophen PO 1000 mg PO once Route: PO; [facility] 12:49 Follow up: Response: No adverse reaction; Pain is decreased; RASS: Alert and Calm (0) [facility] 11:46 Drug: Lidocaine Infiltration (1 %) 5 mg Infiltration once {Note: R arm by Dr. jaime Leal.} Route: Infiltration; 12:49 Follow up: Response: No adverse reaction [facility] Medication: 11:37 VIS not applicable for this client. ph Outcome: 12:47 Discharge ordered by . rt 12:55 Patient left the ED. [facility] 12:55 Discharged to home ambulatory, [facility] 12:55 Condition: stable 12:55 Discharge instructions given to patient, Instructed on discharge instructions, follow up and referral plans. medication usage, wound care, Demonstrated understanding of instructions, follow-up care, medications, wound care, Prescriptions given X 1, Signatures: Latoya Chauhan, RN RN Fang Mejia RN RN Oleg Garrett MD MD rt [place], [place] mg5
--- NOTE | 2023-05-01 12:47 | EDPHYS ---
Physician Documentation [facility] Name: Maylin Zuniga Age: 22 yrs Sex: Female : 2000 Arrival Date: 05/01/2023 Time: 11:03 Bed 10 Private MD: ED Physician Oleg Leal HPI: 05/01 12:20 This 22 yrs old Female presents to ER via Ambulatory with complaints of Arm rt Pain - Swelling, Insect Bite. 12:20 Patient presents to the ED with 3 days of an abscess to the right wrist. Denies fever, rt chills, acute complaints. Patient does report that she is . Symptoms are mild in severity, no other aggravating relieving factors. 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 - Social history:: Smoking status: Patient denies any tobacco usage or history of. - Family history:: not pertinent. ROS: 12:20 Constitutional: Negative for fever, chills, and weight loss, Respiratory: Negative for rt shortness of breath, cough, wheezing, and pleuritic chest pain, Abdomen/GI: Negative for abdominal pain, nausea, vomiting, diarrhea, and constipation, Neuro: Negative for headache, weakness, numbness, tingling, and seizure, Psych: Negative for depression, anxiety, suicide ideation, homicidal ideation, and hallucinations, 12:20 Skin: Positive for abscess, swelling, Negative for Exam: 12:20 Constitutional: This is a well developed, well nourished patient who is awake, alert, rt and in no acute distress. Head/Face: Normocephalic, atraumatic. Neuro: Awake and alert, GCS 15, oriented to person, place, time, and situation. Cranial nerves II-XII grossly intact. Motor strength 5/5 in all extremities. Sensory grossly intact. Cerebellar exam normal. Normal gait. Psych: Awake, alert, with orientation to person, place and time. Behavior, mood, and affect are within normal limits. 12:20 Musculoskeletal/extremity: 1 cm abscess noted to the dorsum of the right wrist, full range of motion, no joint swelling. Also,, sensation intact. 12:20 Skin: As per [facility] exam. Vital Signs: 11:31 BP 135 / 93; Pulse 79; Resp 18; Temp 98.1; Pulse Ox 99% on R/A; Weight 63.5 kg; Height ph 5 ft. 5 in. ; 12:53 BP 127 / 87; Pulse 98; Resp 18; Pulse Ox 99% ; ll1 11:31 Body Mass Index 23.30 (63.50 kg, 165.1 cm) ph Procedures: 14:10 I \T\ D: Incision and drainage was performed for an abscess of the right right wrist rt Prepped with alcohol, Anesthetized with 1 ml's 1% Lidocaine. Incised with #11 blade. Drained small amount Dressing: sterile 4x4 gauze, the patient tolerated the procedure well. MDM: 11:30 Patient medically screened. rt 14:10 Differential diagnosis: Abscess, cellulitis. Data reviewed: vital signs, nurses notes. rt I considered the following discharge prescriptions or medication management in the emergency department Medications were administered in the Emergency Department. See MAR. Test considered but Not performed: Other Details Full range of motion of the wrist, localized erythema, no erythema overlying the joint, extremely low suspicion for septic arthritis, imaging, labs not indicated. Counseling: I had a detailed discussion with the patient and/or guardian regarding the historical points, exam findings, and any diagnostic results supporting the discharge/admit diagnosis, the need for outpatient follow up. Response to treatment: the patient's symptoms have markedly improved after treatment. Administered Medications: 11:43 Drug: Acetaminophen PO 1000 mg PO once Route: PO; ll1 12:49 Follow up: Response: No adverse reaction; Pain is decreased; RASS: Alert and Calm (0) ll1 11:46 Drug: Lidocaine Infiltration (1 %) 5 mg Infiltration once {Note: R arm by Dr. jaime Leal.} Route: Infiltration; 12:49 Follow up: Response: No adverse reaction ll1 Disposition Summary: 05/01/23 12:47 Discharge Ordered Notes: Location: Home rt Problem: new rt Symptoms: have improved rt Condition: Stable rt Diagnosis - Cutaneous abscess to right wrist rt Followup: rt - With: Private Physician - When: 2 - 3 days - Reason: Discharge Instructions: - Discharge Summary Sheet ll1 - Skin Abscess rt Forms: - Work release form ll1 - Medication Reconciliation Form rt - Thank You Letter rt - Antibiotic Education rt - Prescription Opioid Use rt - Patient Portal Instructions rt - Leadership Thank You Letter rt Signatures: Latoya Chauhan RN RN ph Fang Jauregui RN RN ll1 Oleg Leal MD MD rt
[2023-05-01 14:28] VITALS: BP 135/93; TEMP 98.1; O2SAT 99
== END 2023-05-01 12:55 | disposition home or self-care (01) ==
LOC: ER 11:03
DX: L02.413 Cutaneous abscess of right upper limb (principal)
CPT/HCPCS: J2001

== ENCOUNTER 2023-06-13 12:18 | Emergency (ER) | payer OTHER, SELFPAY ==
--- OUTSIDE RECORDS SUMMARY | 2023-06-13 12:23 | XMS REPORT | Continuity of Care Document ---
:[address] [facility] t Address [address] [place] [address] [place] [id number] Care Team Providers Name Role Phone Jacob Joseph Primary Care Physician Unavailable ELIZA BOWERS Attending Clinician Unavailable Rahel Aguilar Attending Clinician RAHEL GRANT Attending Clinician Unavailable Eliza Heller Attending Clinician 2, [facility] Attending Clinician Unavailable LESLIE LEDBETTER Attending Clinician Unavailable Emanuel Leslie CLEMENT Attending Clinician [phone] YAW LEIVA Attending Clinician Unavailable Yaw Leiva DO Attending Clinician Nurse, [facility] Attending Clinician Unavailable Unknown, Attending Attending Clinician Unavailable UNKNOWN, ATTENDING Attending Clinician Unavailable BAILEE LIZ Attending Clinician Unavailable Doctor Unassigned, [place] Attending Clinician Unavailable Carla Franklin CNM Attending Clinician CARLA FRANKLIN Attending Clinician Unavailable [facility] Attending Clinician Unavailable ROSALES CHAPIN Attending Clinician Unavailable ROSALES CHAPIN Attending Clinician Unavailable ROSALES KIMBALL Attending Clinician Unavailable Jacob Joseph Attending Clinician JACOB BARRIENTOS Attending Clinician Unavailable Visit, [facility] Nurse Attending Clinician Unavailable ALIVIA ERNANDEZ Attending Clinician Unavailable Alivia Swanson Attending Clinician CINDY APARICIO Attending Clinician Unavailable Robert WISE, Rayne Godoy Attending Clinician Unavailable NI ALVAREZ Attending Clinician Unavailable Joel Matt DO Attending Clinician Alysia ASSEMBLER MOVEMENT, Elena Attending Clinician Provider, [facility] Attending Clinician Unavailable ELENA HATFIELD Attending Clinician Unavailable Fletcher Ramesh MD Attending Clinician Frank WISE, Ethel Attending Clinician Unavailable Rajtracie_P Attending Clinician Unavailable Alvin Nobles Attending Clinician YAW LEIVA Admitting Clinician Unavailable [email or web address] Admitting Clinician Unavailable Payers Payer Name Policy Type Policy Number Effective Date Expiration Date S [place] [facility] [id number] 2019 00:00:00 [place] [id number] 2019 00:00:00 Problems Condition Condition Condition Status Onset Resolution Last Treating Co mments Source Name Details Category Date Date Treatment Clinician Date Chlamydia Chlamydia Disease Active Uni vers trachomati trachomati 2-13 it y of s s 00:00: [place] infection infection 00 Medi danni of lower of lower Branch genitourin genitourin jeremy sites jeremy sites Need for Need for Disease Active Unive rs prophylact prophylact 3-24 it y of ic ic 00:00: [place] vaccinatio vaccinatio 00 Me dical n and n and Branch inoculatio inoculatio n against n against influenza influenza Feeling Feeling Disease Active Univers sad sad 5-21 ity of 00:00: [place] [address] Medical [place] Encounter Encounter Disease Active Uni vers for [...] in female [place] Class 1 Class 1 Disease Active Univers obesity obesity 3-24 ity of due to due to 00:00: [place] excess excess 00 Medical calories calories Branch with with serious serious comorbidit comorbidit y and body y and body mass index mass index (BMI) of (BMI) of 34.0 to 34.0 to 34.9 in 34.9 in adult adult BMI BMI Disease Active Univers 34.0-34.9, 34.0-34.9, 3-24 it y of adult adult 00:00: [place] [facility] Elevated Elevated Disease Active Unive rs blood blood 2-21 ity of pressure pressure 00:00: [place] reading reading 00 Medical without without Branch diagnosis diagnosis of of hypertensi hypertensi on on Other Other Disease Active Univers depression depression 1-09 it y of 00:00: [place] [facility] Nexplanon Nexplanon Disease Active Uni vers removal removal -09 ity of 00:00: [place] [address] Medical Branch Screening Screening Disease Active Uni vers examinatio examinatio -09 it y of n for STD n for STD 00:00: [place] s (sexually (sexually 00 Medi danni transmitte transmitte Br anch d disease) d disease) BMI BMI Disease Active 2018-08 Univers 27.0-27.9, 27.0-27.9, 0-16 it y of adult adult 00:00: [place] [facility] BMI BMI Disease Active 2018-08 Univers 29.0-29.9, 29.0-29.9, 0-16 it y of adult adult 00:00: [place] [facility] HPV HPV Disease Active 2018-08 Univers vaccine vaccine 0-16 ity of counseling counseling 00:[place] [facility] [place] Over Over Disease Active 2018-08 Univers weight weight 0-16 ity of 00:00: [place] [address] Medical Branch Lump or Lump or Disease Active Univers mass in mass in 4-13 ity of breast breast 00:00: [place] [address] Medical Branch Allergies, Adverse Reactions, Alerts Allergy Allergy Status Severity Reaction(s) Onset Inactive Treating Comm ents Source Name Type Date Date Clinician NO KNOWN Drug Active Univers ALLERGIE Class ity of S [place] [facility] Social History Social Habit Start Date Stop Date Quantity Comments Source Gender identity Universit y of [place] [facility] Sexual orientation Univer sity of [place] [facility] History of Social 2023-02-14 2023-02-14 Univers ity of function 00:00:00 00:00:00 [place] [facility] Exposure to 2022-12-24 2023-01-03 Not sure University of SARS-CoV-2 (event) 00:00:00 09:29:00 [place] [facility] History SDOH 2023-01-01 2023-01-01 1 University o f Alcohol Frequency 00:00:00 00:00:00 [place] M edical Branch History SDOH 2023-01-01 2023-01-01 0 University o f Alcohol Std Drinks 00:00:00 00:00:00 [place] [facility] History SDOH 2023-01-01 2023-01-01 1 University o f Alcohol Binge 00:00:00 00:00:00 [place] Medic al Branch History SDOH Social 2023-01-01 2023-01-01 4 Unive rsity of Connections Phone 00:00:00 00:00:00 [place] M edical Branch History SDOH Social 2023-01-01 2023-01-01 2 Unive rsity of Connections Get 00:00:00 00:00:00 [place] Med ical Together Branch History SDOH Social 2023-01-01 2023-01-01 3 Unive rsity of Connections Nondenominational 00:00:00 00:00:00 [place] [facility] History SDOH Social 2023-01-01 2023-01-01 2 Unive rsity of Connections 00:00:00 00:00:00 [place] [facility] Membership Branch History SDOH Social 2023-01-01 2023-01-01 1 Unive rsity of Connections 00:00:00 00:00:00 [place] [facility] Meetings Branch History SDOH Social 2023-01-01 2023-01-01 7 Unive rsity of Connections Living 00:00:00 00:00:00 [place] [facility] History SDOH 2023-01-01 2023-01-01 1 University o f Physical Activity 00:00:00 00:00:00 [place] M edical DPW Branch History SDOH 2023-01-01 2023-01-01 3 University o f Physical Activity 00:00:00 00:00:00 [place] M edical MPS Branch History SDOH Stress 2023-01-01 2023-01-01 5 Unive rsity of 00:00:00 00:00:00 [place] [facility] History SDOH 2023-01-01 2023-01-01 4 University o f Financial 00:00:00 00:00:00 [place] [facility] History SDOH Food 2023-01-01 2023-01-01 1 Univers ity of Worry 00:00:00 00:00:00 [place] [facility] History SDOH Food 2023-01-01 2023-01-01 2 Univers ity of Scarcity 00:00:00 00:00:00 [place] [facility] History SDOK 2023-01-01 2023-01-01 2 University o f Transport Med 00:00:00 00:00:00 [place] Medic al Branch History SDOH 2023-01-01 2023-01-01 2 University o f Transport Non-Med 00:00:00 00:00:00 [place] M edical Branch History SDOH 2023-01-01 2023-01-01 2 University o f Housing Unable to 00:00:00 00:00:00 [place] M edical Pay Branch History SDOK 2023-01-01 2023-01-01 1 University o f Housing Places 00:00:00 00:00:00 [facility] danni Lived Branch History SDOK 2023-01-01 2023-01-01 2 University o f Housing Homeless 00:00:00 00:00:00 [facility] dical Last Year Branch Alcohol Comment 2021-11-02 2021-11-02 social Universit y of 00:00:00 00:00:00 [facility] Branch Alcohol intake 2020-05-10 2020-05-10 Current University of 00:00:00 00:00:00 non-drinker of [facility] alcohol Branch (finding) Tobacco use and 2014-11-22 2014-11-22 Smokeless Universit y of exposure 00:00:00 00:00:00 tobacco non-user [facility] dical Branch Sex Assigned At [birth year] Universit y of 00:00:00 00:00:00 [facility] [place] [facility] Smoking Status Start Date Stop Date Source Never smoked tobacco [facility] Medications Ordered Filled Start Stop Current Ordering Indication Dosage Frequency Signature Comments Components Source Medication Medication Date Date Medication? Clinician (SIG) Name Name omeprazole 2023-0 Yes [id number] 40mg Take 1 Univers 40 mg 9-07 capsule by ity of capsule 00:00: mouth in [place] 00 the Medical morning. Branch omeprazole 2023-0 Yes [id number] 40mg Take 1 Univers 40 mg 9-07 capsule by ity of capsule 00:00: mouth in [place] 00 the Medical morning. Branch omeprazole 2023-0 Yes [id number] 40mg Take 1 Univers 40 mg 9-07 capsule by ity of capsule 00:00: mouth in [place] 00 the Medical morning. Branch ondansetron 3-0 Yes [id number] 8mg Take 1 Univers 8 mg tablet 8-24 tablet by ity of 00:00: mouth [place] 00 every 8 Medical (eight) Branch hours as needed for Nausea and Vomiting (N/V). ondansetron 2023-0 Yes [id number] 8mg Take 1 Univers 8 mg tablet 8-24 tablet by ity of 00:00: mouth [place] 00 every 8 Medical (eight) Branch hours as needed for Nausea and Vomiting (N/V). ondansetron 2023-0 Yes [id number] 8mg Take 1 Univers 8 mg tablet 8-24 tablet by ity of 00:00: mouth [place] 00 every 8 Medical (eight) Branch hours as needed for Nausea and Vomiting (N/V). ondansetron 2023-0 Yes [id number] 8mg Take 1 Univers 8 mg tablet 8-24 tablet by ity of 00:00: mouth [place] 00 every 8 Medical (eight) Branch hours as needed for Nausea and Vomiting (N/V). omeprazole 2023-0 Yes [id number] 40mg Take 1 Univers 40 mg 8-21 capsule by ity of capsule 00:00: mouth in [place] 00 the Medical morning. Branch omeprazole 2023-0 Yes [id number] 40mg Take 1 Univers 40 mg 8-21 capsule by ity of capsule 00:00: mouth in [place] 00 the Medical morning. Branch omeprazole 2023-0 Yes [id number] 40mg Take 1 Univers 40 mg 8-21 capsule by ity of capsule 00:00: mouth in [place] 00 the Medical morning. Branch omeprazole 2023-0 Yes [id number] 40mg Take 1 Univers 40 mg 8-21 capsule by ity of capsule 00:00: mouth in [place] 00 the Medical morning. Branch omeprazole 2022-0 Yes [id number] 40mg Take 1 Univers 40 mg 8-21 capsule by ity of capsule 00:00: mouth in [place] 00 the Medical morning. Branch omeprazole 2022-0 2022- No [id number] 40mg Take 1 Univers 40 mg 8-21 09-07 capsule by ity of capsule 00:00: 00:00 mouth in [place] 00 :00 the Medical morning. Branch omeprazole 2022-0 2022- No [id number] 40mg Take 1 Univers 40 mg 8-21 09-07 capsule by ity of capsule 00:00: 00:00 mouth in [place] 00 :00 the Medical morning. Branch VENLAFAXINE 2022-0 Yes [id number] 37.5mg TAKE 1 Univers XR 37.5 mg 8-02 CAPSULE BY ity of 24 hr 00:00: MOUTH [place] capsule 00 DAILY WITH Medica l BREAKFAST. Branch VENLAFAXINE 2022-0 Yes [id number] 37.5mg TAKE 1 Univers XR 37.5 mg 8-02 CAPSULE BY ity of 24 hr 00:00: MOUTH [place] capsule 00 DAILY WITH Medica l BREAKFAST. Branch VENLAFAXINE 2022-0 Yes [id number] 37.5mg TAKE 1 Univers XR 37.5 mg 8-02 CAPSULE BY ity of 24 hr 00:00: MOUTH [place] capsule 00 DAILY WITH Medica l BREAKFAST. Branch VENLAFAXINE 2022-0 Yes [id number] 37.5mg TAKE 1 Univers XR 37.5 mg 8-02 CAPSULE BY ity of 24 hr 00:00: MOUTH [place] capsule 00 DAILY WITH Medica l BREAKFAST. Branch VENLAFAXINE 2022-0 Yes [id number] 37.5mg TAKE 1 Univers XR 37.5 mg 8-02 CAPSULE BY ity of 24 hr 00:00: MOUTH [place] capsule 00 DAILY WITH Medica l BREAKFAST. Branch VENLAFAXINE 2022-0 Yes [id number] 37.5mg TAKE 1 Univers XR 37.5 mg 8-02 CAPSULE BY ity of 24 hr 00:00: MOUTH [place] capsule 00 DAILY WITH Medica l BREAKFAST. Branch VENLAFAXINE 2022-0 Yes [id number] 37.5mg TAKE 1 Univers XR 37.5 mg 8-02 CAPSULE BY ity of 24 hr 00:00: MOUTH [place] capsule 00 DAILY WITH Medica l BREAKFAST. Branch VENLAFAXINE 3-0 Yes [id number] 37.5mg TAKE 1 Univers XR 37.5 mg 8-02 CAPSULE BY ity of 24 hr 00:00: MOUTH [place] capsule 00 DAILY WITH Medica l BREAKFAST. Branch VENLAFAXINE 3-0 Yes [id number] 37.5mg TAKE 1 Univers XR 37.5 mg 8-02 CAPSULE BY ity of 24 hr 00:00: MOUTH [place] capsule 00 DAILY WITH Medica l BREAKFAST. Branch venlafaxine 2022-0 Yes [id number] 37.5mg Take 1 Univers XR 37.5 mg 7-06 capsule by ity of 24 hr 00:00: mouth [place] capsule 00 daily with Medica l breakfast. Branch venlafaxine 2022-0 Yes [id number] 37.5mg Take 1 Univers XR 37.5 mg 7-06 capsule by ity of 24 hr 00:00: mouth [place] capsule 00 daily with Medica l breakfast. Branch venlafaxine 2022-0 3- No [id number] 37.5mg Take 1 Univers XR 37.5 mg 7-06 08-02 capsule by it y of 24 hr 00:00: 00:00 mouth [place] capsule 00 :00 daily with Medica l breakfast. Branch SERTraline 2022-0 Yes [id number] 25mg Take 1 Univers 25 mg 5-25 tablet by ity of tablet 00:00: mouth in [place] 00 the Medical morning. Branch SERTraline 2022-0 Yes [id number] 25mg Take 1 Univers 25 mg 5-25 tablet by ity of tablet 00:00: mouth in [place] 00 the Medical morning. Branch SERTraline 2022-0 Yes [id number] 25mg Take 1 Univers 25 mg 5-25 tablet by ity of tablet 00:00: mouth in [place] 00 the Medical morning. Branch SERTraline 3-0 Yes [id number] 25mg Take 1 Univers 25 mg 5-25 tablet by ity of tablet 00:00: mouth in [place] 00 the Medical morning. Branch SERTraline 3-0 Yes [id number] 25mg Take 1 Univers 25 mg 5-25 tablet by ity of tablet 00:00: mouth in [place] the Medical morning. Branch SERTraline 3-0 Yes [id number] 25mg Take 1 Univers 25 mg 5-25 tablet by ity of tablet 00:00: mouth in [place] 00 the Medical morning. Branch SERTraline 3-0 Yes [id number] 25mg Take 1 Univers 25 mg 5-25 tablet by ity of tablet 00:00: mouth in [place] 00 the Medical morning. Branch SERTraline 3-0 3- No [id number] 25mg Take 1 Univers 25 mg 5-25 07-06 tablet by ity of tablet 00:00: 00:00 mouth in [place] 00 :00 the Medical morning. Branch SERTraline 2022-0 3- No [id number] 25mg Take 1 Univers 25 mg 5-25 07-06 tablet by ity of tablet 00:00: 00:00 mouth in [place] 00 :00 the Medical morning. Branch naproxen 2022-0 3- No [id number] 500mg Take 1 Univers (NAPROSYN) 5-25 06-05 tablet by ity of 500 mg 00:00: 04:59 mouth in [place] tablet 00 :00 the Medical morning Branch and 1 tablet in the evening. Take with meals. Do all this for 10 days. naproxen 3-0 3- No [id number] 500mg Take 1 Univers (NAPROSYN) 5-25 06-05 tablet by ity of 500 mg 00:00: 04:59 mouth in [place] tablet 00 :00 the Medical morning Branch and 1 tablet in the evening. Take with meals. Do all this for 10 days. naproxen 3-0 3- No [id number] 500mg Take 1 Univers (NAPROSYN) 5-25 06-05 tablet by ity of 500 mg 00:00: 04:59 mouth in [place] tablet 00 :00 the Medical morning Branch and 1 tablet in the evening. Take with meals. Do all this for 10 days. naproxen 3-0 3- No [id number] 500mg Take 1 Univers (NAPROSYN) 5-25 06-05 tablet by ity of 500 mg 00:00: 04:59 mouth in [place] tablet 00 :00 the Medical morning Branch and 1 tablet in the evening. Take with meals. Do all this for 10 days. naproxen 3-0 2023- No [id number] 500mg Take 1 Univers (NAPROSYN) 5-25 06-05 tablet by ity of 500 mg 00:00: 04:59 mouth in [place] tablet 00 :00 the Medical morning Branch and 1 tablet in the evening. Take with meals. Do all this for 10 days. naproxen 3-0 3- No [id number] 500mg Take 1 Univers (NAPROSYN) 5-25 06-05 tablet by ity of 500 mg 00:00: 04:59 mouth in [place] tablet 00 :00 the [facility] morning Branch and 1 tablet in the evening. Take with meals. Do all this for 10 days. naproxen 3-0 2023- No [id number] 500mg Take 1 Univers (NAPROSYN) 5-25 06-05 tablet by ity of 500 mg 00:00: 04:59 mouth in [place] tablet 00 :00 the [facility] morning Branch and 1 tablet in the evening. Take with meals. Do all this for 10 days. iopamidol 2022-0 3- No [id number] 100mL 100 mL, Univers (ISOVUE 5-19 05-19 Intravenou ity o f 370-500 mL) 03:00: 03:00 s, ONCE, 1 [place] injection 00 :00 dose, On Medica l 100 mL [place] Branch 12/27/22 at 2200, Routine norelgestro 3-0 Yes [id number] 1{patch Apply 1 Univers min-ethinyl 5-11 } Patch to ity of estradiol 00:00: [facility] weekly. Medical 150-35 Branch mcg/24 hr patch norelgestro 2023-0 Yes [id number] 1{patch Apply 1 Univers min-ethinyl 5-11 } Patch to ity of estradiol 00:00: [facility]) weekly. Medical 150-35 Branch mcg/24 hr patch norelgestro 2023-0 Yes [id number] 1{patch Apply 1 Univers min-ethinyl 5-11 } Patch to ity of estradiol 00:00: [facility]) weekly. Medical 150-35 Branch mcg/24 hr patch norelgestro 2023-0 Yes [id number] 1{patch Apply 1 Univers min-ethinyl 5-11 } Patch to ity of estradiol 00:00: [facility] 00 weekly. Medical 150-35 Branch mcg/24 hr patch norelgestro 2022-0 Yes [id number] 1{patch Apply 1 Univers min-ethinyl 5-11 } Patch to ity of estradiol 00:00: [facility]) 00 weekly. Medical 150-35 Branch mcg/24 hr patch norelgestro 202-0 3- No [id number] 1{patch Apply 1 Univers min-ethinyl 5-11 05-25 } Patch to ity of estradiol 00:00: 00:00 [facility]) 00 :00 weekly. Medical 150-35 Branch mcg/24 hr patch norelgestro 3-0 2022- No [id number] 1{patch Apply 1 Univers min-ethinyl 5-11 05-25 } Patch to ity of estradiol 00:00: 00:00 [facility] 00 :00 weekly. Medical 150-35 Branch mcg/24 hr patch doxycycline 2022-0 2022- No [id number] 100mg Take 1 Univers hyclate 100 2-13 - capsule by i ty of mg capsule 00:00: 05:59 mouth [place] 00 :00 every 12 Medical (twelve) Branch hours for 7 days. norelgestro 2022-0 Yes [id number] 1{patch Apply 1 Univers min-ethinyl 2-10 } Patch to ity of estradiol 00:00: [place] [address] 00 weekly. Medical mcg/24 hr Branch patch norelgestro 2022-0 Yes [id number] 1{patch Apply 1 Univers min-ethinyl 2-10 } Patch to ity of estradiol 00:00: [place] [address] 00 weekly. Medical mcg/24 hr Branch patch norelgestro 2022-0 Yes [id number] 1{patch Apply 1 Univers min-ethinyl 2-10 } Patch to ity of estradiol 00:00: [facility] 00 weekly. Medical mcg/24 hr Branch patch norelgestro 2023-0 Yes [id number] 1{patch Apply 1 Univers min-ethinyl 2-10 } Patch to ity of estradiol 00:00: [facility] 00 weekly. Medical mcg/24 hr Branch patch norelgestro 2023-0 Yes [id number] 1{patch Apply 1 Univers min-ethinyl 2-10 } Patch to ity of estradiol 00:00: skin [place] 150-35 00 weekly. Medical mcg/24 hr Branch patch norelgestro 2023-0 Yes [id number] 1{patch Apply 1 Univers min-ethinyl 2-10 } Patch to ity of estradiol 00:00: skin [place] 150-35 00 weekly. Medical mcg/24 hr Branch patch norelgestro 2023-0 Yes [id number] 1{patch Apply 1 Univers min-ethinyl 2-10 } Patch to ity of estradiol 00:00: skin [place] 150-35 00 weekly. Medical mcg/24 hr Branch patch norelgestro 2023-0 Yes [id number] 1{patch Apply 1 Univers min-ethinyl 2-10 } Patch to ity of estradiol 00:00: skin [place] 150-35 00 weekly. Medical mcg/24 hr Branch patch norelgestro 2023-0 Yes [id number] 1{patch Apply 1 Univers min-ethinyl 2-10 } Patch to ity of estradiol 00:00: skin [place] 150-35 00 weekly. Medical mcg/24 hr Branch patch norelgestro 2023-0 Yes [id number] 1{patch Apply 1 Univers min-ethinyl 2-10 } Patch to ity of estradiol 00:00: skin [place] 150-35 00 weekly. Medical mcg/24 hr Branch patch norelgestro 2023-0 Yes [id number] 1{patch Apply 1 Univers min-ethinyl 2-10 } Patch to ity of estradiol 00:00: skin [place] 150-35 00 weekly. Medical mcg/24 hr Branch patch norelgestro 2023-0 Yes [id number] 1{patch Apply 1 Univers min-ethinyl 2-10 } Patch to ity of estradiol 00:00: skin [place] 150-35 00 weekly. Medical mcg/24 hr Branch patch norelgestro 2023-0 Yes [id number] 1{patch Apply 1 Univers min-ethinyl 2-10 } Patch to ity of estradiol 00:00: skin [place] 150-35 00 weekly. Medical mcg/24 hr Branch patch norelgestro 2023-0 Yes [id number] 1{patch Apply 1 Univers min-ethinyl 2-10 } Patch to ity of estradiol 00:00: skin [place] 150-35 00 weekly. Medical mcg/24 hr Branch patch norelgestro 2023-0 Yes [id number] 1{patch Apply 1 Univers min-ethinyl 2-10 } Patch to ity of estradiol 00:00: [facility] 150-35 00 weekly. Medical mcg/24 hr Branch patch norelgestro 2022-0 Yes [id number] 1{patch Apply 1 Univers min-ethinyl 2-10 } Patch to ity of estradiol 00:00: [facility] 150-35 00 weekly. Medical mcg/24 hr Branch patch norelgestro 2022-0 Yes [id number] 1{patch Apply 1 Univers min-ethinyl 2-10 } Patch to ity of estradiol 00:00: [facility] 150-35 00 weekly. Medical mcg/24 hr Branch patch norelgestro 2022-0 Yes [id number] 1{patch Apply 1 Univers min-ethinyl 2-10 } Patch to ity of estradiol 00:00: [facility] 150-35 00 weekly. Medical mcg/24 hr Branch patch norelgestro 2022-0 Yes [id number] 1{patch Apply 1 Univers min-ethinyl 2-10 } Patch to ity of estradiol 00:00: [facility] 150-35 00 weekly. Medical mcg/24 hr Branch patch norelgestro 2022-0 Yes [id number] 1{patch Apply 1 Univers min-ethinyl 2-10 } Patch to ity of estradiol 00:00: [facility] 150-35 00 weekly. Medical mcg/24 hr Branch patch norelgestro 2022-0 2023- No [id number] 1{patch Apply 1 Univers min-ethinyl 2-10 08-21 } Patch to ity of estradiol 00:00: 00:00 [facility] 150-35 00 :00 weekly. Medical mcg/24 hr Branch patch norelgestro 2022-0 2023- No [id number] 1{patch Apply 1 Univers min-ethinyl 2-10 08-21 } Patch to ity of estradiol 00:00: 00:00 [facility] 150-35 00 :00 weekly. Medical mcg/24 hr Branch patch norgestimat 2021-0 Yes [id number] 1{tbl} Take 1 Univers e-ethinyl 7-07 tablet by ity o f estradioL 00:00: mouth [place] 0.18/0.215/ 00 daily. Medica l 0.25 mg-25 Branch mcg tablet norgestimat 2022- No [id number] 1{tbl} Take 1 Univers e-ethinyl 7-07 02-10 tablet by ity of estradioL 00:00: 00:00 mouth [place] 0.18/0.215/ 00 :00 daily. Medica l 0.25 mg-25 Branch mcg tablet norgestimat 2022- No [id number] 1{tbl} Take 1 Univers e-ethinyl 7-07 02-10 tablet by ity of estradioL 00:00: 00:00 mouth [place] 0.18/0.215/ 00 :00 daily. Medica l 0.25 mg-25 Branch mcg tablet norgestimat 2021- No [id number] 1{tbl} Take 1 Univers e-ethinyl 4-07 07-07 tablet by ity of estradioL 00:00: 00:00 mouth [place] 0.18/0.215/ 00 :00 daily. Medica l 0.25 mg-25 Branch mcg tablet benzonatate Yes [id number] 100mg Take 1 Univers 100 mg 3-07 capsule by ity of capsule 00:00: mouth 3 [place] 00 (three) Medical times Branch daily as needed for Cough. albuterol Yes [id number] 6{puff} Inhale 6 Univers 90 3-07 Puffs ity of mcg/actuati 00:00: every 4 [place] on inhaler 00 (four) Medical hours as Branch needed for Wheezing or Shortness of Breath. albuterol Yes [id number] 6{puff} Inhale 6 Univers 90 3-07 Puffs ity of mcg/actuati 00:00: every 4 [place] inhaler 00 (four) Medical hours as Branch needed for Wheezing or Shortness of Breath. albuterol Yes [id number] 6{puff} Inhale 6 Univers 90 3-07 Puffs ity of mcg/actuati 00:00: every 4 [place] inhaler 00 (four) Medical hours as Branch needed for Wheezing or Shortness of Breath. albuterol Yes [id number] 6{puff} Inhale 6 Univers 90 3-07 Puffs ity of mcg/actuati 00:00: every 4 [place] inhaler 00 (four) Medical hours as Branch needed for Wheezing or Shortness of Breath. albuterol Yes [id number] 6{puff} Inhale 6 Univers 90 3-07 Puffs ity of mcg/actuati 00:00: every 4 [place] inhaler 00 (four) Medical hours as Branch needed for Wheezing or Shortness of Breath. albuterol Yes [id number] 6{puff} Inhale 6 Univers 90 3-07 Puffs ity of mcg/actuati 00:00: every 4 [place] inhaler 00 (four) Medical hours as Branch needed for Wheezing or Shortness of Breath. albuterol Yes [id number] 6{puff} Inhale 6 Univers 90 3-07 Puffs ity of mcg/actuati 00:00: every 4 [place] inhaler 00 (four) Medical hours as Branch needed for Wheezing or Shortness of Breath. albuterol Yes [id number] 6{puff} Inhale 6 Univers 90 3-07 Puffs ity of mcg/actuati 00:00: every 4 [place] on inhaler 00 (four) Medical hours as Branch needed for Wheezing or Shortness of Breath. albuterol Yes [id number] 6{puff} Inhale 6 [facility] 90 3-07 Puffs ity of mcg/actuati 00:00: every 4 [place] on inhaler 00 (four) Medical hours as Branch needed for Wheezing or Shortness of Breath. albuterol Yes [id number] 6{puff} Inhale 6 [facility] 90 3-07 Puffs ity of mcg/actuati 00:00: every 4 [place] on inhaler 00 (four) Medical hours as Branch needed for Wheezing or Shortness of Breath. albuterol Yes [id number] 6{puff} Inhale 6 [facility] 90 3-07 Puffs ity of mcg/actuati 00:00: every 4 [place] on inhaler 00 (four) Medical hours as Branch needed for Wheezing or Shortness of Breath. albuterol 2022- No [id number] 6{puff} Inhale 6 [facility] 90 3-07 05-25 Puffs ity of mcg/actuati 00:00: 00:00 [place] 4 [place] inhaler 00 :00 (four) Medical hours as Branch needed for Wheezing or Shortness of Breath. albuterol 2022- No [id number] 6{puff} Inhale 6 [facility] 90 10-16 05-25 Puffs ity of mcg/actuati 00:00: 00:00 [place] 4 [place] inhaler 00 :00 (four) Medical hours as Branch needed for Wheezing or Shortness of Breath. benzonatate 2022- No [id number] 100mg Take 1 [facility] 100 mg 10-16 capsule by ity of capsule 00:00: 00:00 mouth 3 [place] 00 :00 (three) Medical times Branch daily as needed for Cough. benzonatate 2022- No [id number] 100mg Take 1 [facility] 100 mg 10-16 capsule by ity of capsule 00:00: 00:00 mouth 3 [place] 00 :00 (three) Medical times Branch daily as needed for Cough. Immunizations Ordered Filled Date Status Comments Source Immunization Name Immunization Name Influenza Virus 2021-11-02 Completed [facility] y of Vaccine Quad .5 mL 00:00:00 [facility] 6+ MO [facility] Influenza Virus 2021-11-02 Completed [facility] y of Vaccine Quad .5 mL 00:00:00 [facility] 6+ MO Branch Influenza Virus 2021-11-02 Completed [facility]it y of Vaccine Quad .5 mL 00:00:00 [facility] 6+ MO Branch Influenza Virus 2021-11-02 Completed [facility] y of Vaccine Quad .5 mL 00:00:00 [facility] 6+ [facility] Influenza Virus 2021-11-02 Completed [facility] y of Vaccine Quad .5 mL 00:00:00 [facility] [place] [facility] 6+ [facility] Influenza Virus 2021-11-02 Completed [facility] y of Vaccine Quad .5 mL 00:00:00 [facility] [place] [facility] 6+ [facility] Influenza Virus 2021-11-02 Completed [facility] y of Vaccine Quad .5 mL 00:00:00 [facility] [place] [facility] 6+ [facility] Influenza Virus 2021-11-02 Completed [facility] y of Vaccine Quad .5 mL 00:00:00 [facility] [place] [facility] 6+ [facility] Influenza Virus 2021-11-02 Completed [facility] y of Vaccine Quad .5 mL 00:00:00 [facility] 6+ MO Branch Influenza Virus 2021-11-02 [...] of Vaccine Quad .5 mL 00:00:00 [facility] [place] [facility] 6+ [facility] (FLUZONE/FLULAVAL/F LUARIX) Influenza Virus 2021-11-02 Completed [facility]it y of Vaccine Quad .5 mL 00:00:00 [facility] [place] [facility] 6+ [facility] (FLUZONE/FLULAVAL/F LUARIX) Influenza Virus 2021-11-02 Completed [facility]it y of Vaccine Quad .5 mL 00:00:00 [place] [facility] 6+ [facility] (FLUZONE/FLULAVAL/F LUARIX) SARS-COV-2 COVID-19 2021-03-27 Completed Unive rsity of PFIZER VACCINE 00:00:00 [facility] SARS-COV-2 COVID-19 2021-03-27 Completed Unive rsity of PFIZER VACCINE 00:00:00 [facility] SARS-COV-2 COVID-19 2021-03-27 Completed Unive rsity of PFIZER VACCINE 00:00:00 [facility] SARS-COV-2 COVID-19 2021-03-27 Completed Unive rsity of PFIZER VACCINE 00:00:00 [facility] SARS-COV-2 COVID-19 2021-03-27 Completed Unive rsity of PFIZER VACCINE 00:00:00 [facility] SARS-COV-2 COVID-19 2021-03-27 Completed Unive rsity of PFIZER VACCINE 00:00:00 [facility] SARS-COV-2 COVID-19 2021-03-27 Completed Unive rsity of PFIZER VACCINE 00:00:00 [facility] SARS-COV-2 COVID-19 2021-03-27 Completed Unive rsity of PFIZER VACCINE 00:00:00 [facility] SARS-COV-2 COVID-19 2021-03-27 Completed Unive rsity of PFIZER VACCINE 00:00:00 [facility] SARS-COV-2 COVID-19 2021-03-27 Completed Unive rsity of PFIZER VACCINE 00:00:00 [facility] SARS-COV-2 COVID-19 2021-03-27 Completed Unive rsity of PFIZER VACCINE 00:00:00 [facility] SARS-COV-2 COVID-19 2021-03-27 Completed Unive rsity of PFIZER VACCINE 00:00:00 [facility] SARS-COV-2 COVID-19 2021-03-27 Completed Unive rsity of PFIZER VACCINE 00:00:00 [facility] SARS-COV-2 COVID-19 2021-03-27 Completed Unive rsity of PFIZER VACCINE 00:00:00 [facility] SARS-COV-2 COVID-19 2021-03-27 Completed Unive rsity of PFIZER VACCINE 00:00:00 [facility] SARS-COV-2 COVID-19 2021-03-27 Completed Unive rsity of PFIZER VACCINE 00:00:00 [facility] SARS-COV-2 COVID-19 2021-03-27 Completed Unive rsity of PFIZER VACCINE 00:00:00 [facility] SARS-COV-2 COVID-19 2021-03-27 Completed Unive rsity of PFIZER VACCINE 00:00:00 [facility] SARS-COV-2 COVID-19 2021-03-27 Completed Unive rsity of PFIZER VACCINE 00:00:00 [facility] SARS-COV-2 COVID-19 2021-03-27 Completed Unive rsity of PFIZER VACCINE 00:00:00 [facility] SARS-COV-2 COVID-19 2021-03-27 Completed Unive rsity of PFIZER VACCINE 00:00:00 [facility] SARS-COV-2 COVID-19 2021-03-27 Completed Unive rsity of PFIZER VACCINE 00:00:00 [facility] SARS-COV-2 COVID-19 2021-03-27 Completed Unive rsity of PFIZER VACCINE 00:00:00 [facility] SARS-COV-2 COVID-19 2021-03-27 Completed Unive rsity of PFIZER VACCINE 00:00:00 [facility] SARS-COV-2 COVID-19 2021-03-27 Completed Unive rsity of PFIZER VACCINE 00:00:00 [facility] SARS-COV-2 COVID-19 2021-03-27 Completed Unive rsity of PFIZER VACCINE 00:00:00 [facility] SARS-COV-2 COVID-19 2021-03-27 Completed Unive rsity of PFIZER VACCINE 00:00:00 [facility] SARS-COV-2 COVID-19 2021-03-27 Completed Unive rsity of PFIZER VACCINE 00:00:00 [facility] SARS-COV-2 COVID-19 2021-03-27 Completed Unive rsity of PFIZER VACCINE 00:00:00 [facility] SARS-COV-2 COVID-19 2021-03-06 Completed Unive rsity of PFIZER VACCINE 00:00:00 [facility] SARS-COV-2 COVID-19 2021-03-06 Completed Unive rsity of PFIZER VACCINE 00:00:00 [facility] SARS-COV-2 COVID-19 2021-03-06 Completed Unive rsity of PFIZER VACCINE 00:00:00 [facility] SARS-COV-2 COVID-19 2021-03-06 Completed Unive rsity of PFIZER VACCINE 00:00:00 [facility] SARS-COV-2 COVID-19 2021-03-06 Completed Unive rsity of PFIZER VACCINE 00:00:00 [facility] SARS-COV-2 COVID-19 2021-03-06 Completed Unive rsity of PFIZER VACCINE 00:00:00 [facility] SARS-COV-2 COVID-19 2021-03-06 Completed Unive rsity of PFIZER VACCINE 00:00:00 [facility] SARS-COV-2 COVID-19 2021-03-06 Completed Unive rsity of PFIZER VACCINE 00:00:00 [facility] SARS-COV-2 COVID-19 2021-03-06 Completed Unive rsity of PFIZER VACCINE 00:00:00 [facility] SARS-COV-2 COVID-19 2021-03-06 Completed Unive rsity of PFIZER VACCINE 00:00:00 [facility] SARS-COV-2 COVID-19 2021-03-06 Completed Unive rsity of PFIZER VACCINE 00:00:00 [facility] SARS-COV-2 COVID-19 2021-03-06 Completed Unive rsity of PFIZER VACCINE 00:00:00 [facility] SARS-COV-2 COVID-19 2021-03-06 Completed Unive rsity of PFIZER VACCINE 00:00:00 [facility] SARS-COV-2 COVID-19 2021-03-06 Completed Unive rsity of PFIZER VACCINE 00:00:00 [facility] SARS-COV-2 COVID-19 2021-03-06 Completed Unive rsity of PFIZER VACCINE 00:00:00 [facility] SARS-COV-2 COVID-19 2021-03-06 Completed Unive rsity of PFIZER VACCINE 00:00:00 [facility] SARS-COV-2 COVID-19 2021-03-06 Completed Unive rsity of PFIZER VACCINE 00:00:00 [facility] SARS-COV-2 COVID-19 2021-03-06 Completed Unive rsity of PFIZER VACCINE 00:00:00 [facility] SARS-COV-2 COVID-19 2021-03-06 Completed Unive rsity of PFIZER VACCINE 00:00:00 [facility] SARS-COV-2 COVID-19 2021-03-06 Completed Unive rsity of PFIZER VACCINE 00:00:00 [facility] SARS-COV-2 COVID-19 2021-03-06 Completed Unive rsity of PFIZER VACCINE 00:00:00 [facility] SARS-COV-2 COVID-19 2021-03-06 Completed Unive rsity of PFIZER VACCINE 00:00:00 [facility] SARS-COV-2 COVID-19 2021-03-06 Completed Unive rsity of PFIZER VACCINE 00:00:00 [facility] SARS-COV-2 COVID-19 2021-03-06 Completed Unive rsity of PFIZER VACCINE 00:00:00 [facility] SARS-COV-2 COVID-19 2021-03-06 Completed Unive rsity of PFIZER VACCINE 00:00:00 [facility] SARS-COV-2 COVID-19 2021-03-06 Completed Unive rsity of PFIZER VACCINE 00:00:00 [facility] SARS-COV-2 COVID-19 2021-03-06 Completed Unive rsity of PFIZER VACCINE 00:00:00 [facility] SARS-COV-2 COVID-19 2021-03-06 Completed Unive rsity of PFIZER VACCINE 00:00:00 [facility] SARS-COV-2 COVID-19 2021-03-06 Completed Unive rsity of PFIZER VACCINE 00:00:00 [facility] HPV9 2019-08-25 Completed University of 00:00:00 [facility] [place] [facility] HPV9 2019-08-25 Completed University of 00:00:00 [facility] [place] [facility] HPV9 2019-08-25 Completed [facility] 00:00:00 [place] [facility] HPV9 2019-08-25 Completed [facility] 00:00:00 [place] [facility] HPV9 2019-08-25 Completed [facility] of 00:00:00 [facility] [place] [facility] HPV9 2019-08-25 Completed [facility] 00:00:00 [place] [facility] HPV9 2019-08-25 Completed [facility] 00:00:00 [place] [facility] HPV9 2019-08-25 Completed [facility] 00:00:00 [place] [facility] HPV9 2019-08-25 Completed [facility] 00:00:00 [place] [facility] HPV9 2019-08-25 Completed [facility] 00:00:00 [place] [facility] HPV9 2019-08-25 Completed [facility] of 00:00:00 [facility] [place] [facility] HPV9 2019-08-25 Completed University of 00:00:00 [facility] [place] [facility] HPV9 2019-08-25 Completed [facility] 00:00:00 [place] [facility] HPV9 2019-08-25 Completed [facility] of 00:00:00 [facility] [place] [facility] HPV9 2019-08-25 Completed [facility] 00:00:00 [place] [facility] HPV9 2019-08-25 Completed [facility] 00:00:00 [place] [facility] HPV9 2019-08-25 Completed [facility] 00:00:00 [place] [facility] HPV9 2019-08-25 Completed [facility] of 00:00:00 [facility] [place] [facility] HPV9 2019-08-25 Completed [facility] of 00:00:00 [facility] [place] [facility] HPV9 2019-08-25 Completed [facility] 00:00:00 [place] [facility] HPV9 2019-08-25 Completed [facility] 00:00:00 [place] [facility] HPV9 2019-08-25 Completed [facility] 00:00:00 [place] [facility] HPV9 2019-08-25 Completed [facility] 00:00:00 [place] [facility] HPV9 2019-08-25 Completed [facility] 00:00:00 [place] [facility] HPV9 2019-08-25 Completed [facility] 00:00:00 [place] [facility] HPV9 2019-08-25 Completed [facility] 00:00:00 [place] [facility] HPV9 2019-08-25 Completed [facility] of 00:00:00 [facility] [place] [facility] HPV9 2019-08-25 Completed University of 00:00:00 [place] [facility] HPV9 2019-08-25 Completed [facility] of 00:00:00 [facility] [place] [facility] HPV9 2019-05-27 Completed [facility] of 00:00:00 [facility] [place] [facility] HPV9 2019-05-27 Completed [facility] of 00:00:00 [facility] [place] [facility] HPV9 2019-05-27 Completed [facility] of 00:00:00 [facility] [place] [facility] HPV9 2019-05-27 Completed [facility] of 00:00:00 [facility] [place] [facility] HPV9 2019-05-27 Completed [facility] of 00:00:00 [facility] [place] [facility] HPV9 2019-05-27 Completed [facility] of 00:00:00 [facility] [place] [facility] HPV9 2019-05-27 Completed University of 00:00:00 [facility] [place] [facility] HPV9 2019-05-27 Completed [facility] of 00:00:00 [facility] [place] [facility] HPV9 2019-05-27 Completed [facility] of 00:00:00 [facility] [place] [facility] HPV9 2019-05-27 Completed University of 00:00:00 [facility] [place] [facility] HPV9 2019-05-27 Completed University of 00:00:00 [facility] [place] [facility] HPV9 2019-05-27 Completed [facility] of 00:00:00 [facility] [place] [facility] HPV9 2019-05-27 Completed [facility] of 00:00:00 [facility] [place] [facility] HPV9 2019-05-27 Completed [facility] of 00:00:00 [facility] [place] [facility] HPV9 2019-05-27 Completed [facility] of 00:00:00 [facility] [place] [facility] HPV9 2019-05-27 Completed University of 00:00:00 [place] [facility] HPV9 2019-05-27 Completed [facility] of 00:00:00 [place] [facility] HPV9 2019-05-27 Completed University of 00:00:00 [place] [facility] HPV9 2019-05-27 Completed University of 00:00:00 [facility] [place] [facility] HPV9 2019-05-27 Completed University of 00:00:00 [place] [facility] HPV9 2019-05-27 Completed University of 00:00:00 [facility] [place] [facility] HPV9 2019-05-27 Completed University of 00:00:00 [facility] [place] [facility] HPV9 2019-05-27 Completed [facility] of 00:00:00 [place] [facility] HPV9 2019-05-27 Completed [facility] of 00:00:00 [place] [facility] HPV9 2019-05-27 Completed University of 00:00:00 [facility] [place] [facility] HPV9 2019-05-27 Completed University of 00:00:00 [facility] [place] [facility] HPV9 2019-05-27 Completed [facility] 00:00:00 [place] [facility] HPV9 2019-05-27 Completed [facility] of 00:00:00 [facility] [place] [facility] HPV9 2019-05-27 Completed University of 00:00:00 [facility] [place] [facility] TDAP (ADACEL) 2014-06-24 Completed University of VACCINE 00:00:00 [facility] [place] [facility] Meningococcal 2014-06-24 Completed University of Vaccine 00:00:00 [facility] [place] [facility] TDAP (ADACEL) 2014-06-24 Completed University of VACCINE 00:00:00 [facility] [place] [facility] Meningococcal 2014-06-24 Completed University of Vaccine 00:00:00 [facility] [place] [facility] TDAP (ADACEL) 2014-06-24 Completed University of VACCINE 00:00:00 [facility] [place] [facility] Meningococcal 2014-06-24 Completed University of Vaccine 00:00:00 [facility] [place] [facility] TDAP (ADACEL) 2014-06-24 Completed University of VACCINE 00:00:00 [facility] [place] [facility] Meningococcal 2014-06-24 Completed University of Vaccine 00:00:00 [facility] [place] [facility] TDAP (ADACEL) 2014-06-24 Completed University of VACCINE 00:00:00 [facility] [place] [facility] Meningococcal 2014-06-24 Completed University of Vaccine 00:00:00 [facility] [place] [facility] TDAP (ADACEL) 2014-06-24 Completed University of VACCINE 00:00:00 [facility] [place] [facility] Meningococcal 2014-06-24 Completed University of Vaccine 00:00:00 [facility] [place] [facility] TDAP (ADACEL) 2014-06-24 Completed University of VACCINE 00:00:00 [facility] [place] [facility] Meningococcal 2014-06-24 Completed University of Vaccine 00:00:00 [facility] [place] [facility] TDAP (ADACEL) 2014-06-24 Completed University of VACCINE 00:00:00 [facility] [place] [facility] Meningococcal 2014-06-24 Completed University of Vaccine 00:00:00 [facility] [place] [facility] TDAP (ADACEL) 2014-06-24 Completed University of VACCINE 00:00:00 [facility] [place] [facility] Meningococcal 2014-06-24 Completed University of Vaccine 00:00:00 [facility] [place] [facility] TDAP (ADACEL) 2014-06-24 Completed University of VACCINE 00:00:00 [facility] [place] [facility] Meningococcal 2014-06-24 Completed University of Vaccine 00:00:00 [facility] [place] [facility] TDAP (ADACEL) 2014-06-24 Completed University of VACCINE 00:00:00 [facility] [place] [facility] Meningococcal 2014-06-24 Completed University of Vaccine 00:00:00 [place] [facility] TDAP (ADACEL) 2014-06-24 Completed University of VACCINE 00:00:00 [facility] Meningococcal 2014-06-24 Completed University of Vaccine 00:00:00 [facility] TDAP (ADACEL) 2014-06-24 Completed University of VACCINE 00:00:00 [facility] Meningococcal 2014-06-24 Completed University of Vaccine 00:00:00 [facility] [place] [facility] TDAP (ADACEL) 2014-06-24 Completed University of VACCINE 00:00:00 [facility] Meningococcal 2014-06-24 Completed University of Vaccine 00:00:00 [facility] TDAP (ADACEL) 2014-06-24 Completed University of VACCINE 00:00:00 [facility] [place] [facility] Meningococcal 2014-06-24 Completed University of Vaccine 00:00:00 [facility] [place] [facility] TDAP (ADACEL) 2014-06-24 Completed University of VACCINE 00:00:00 [facility] [place] [facility] Meningococcal 2014-06-24 Completed University of Vaccine 00:00:00 [facility] [place] [facility] TDAP (ADACEL) 2014-06-24 Completed University of VACCINE 00:00:00 [facility] [place] [facility] Meningococcal 2014-06-24 Completed University of Vaccine 00:00:00 [facility] [place] [facility] TDAP (ADACEL) 2014-06-24 Completed University of VACCINE 00:00:00 [facility] [place] [facility] Meningococcal 2014-06-24 Completed University of Vaccine 00:00:00 [facility] [place] [facility] TDAP (ADACEL) 2014-06-24 Completed University of VACCINE 00:00:00 [facility] [place] [facility] Meningococcal 2014-06-24 Completed University of Vaccine 00:00:00 [facility] [place] [facility] TDAP (ADACEL) 2014-06-24 Completed University of VACCINE 00:00:00 [facility] Meningococcal 2014-06-24 Completed University of Vaccine 00:00:00 [facility] [place] [facility] TDAP (ADACEL) 2014-06-24 Completed University of VACCINE 00:00:00 [facility] [place] [facility] Meningococcal 2014-06-24 Completed University of Vaccine 00:00:00 [facility] TDAP (ADACEL) 2014-06-24 Completed University of VACCINE 00:00:00 [facility] Meningococcal 2014-06-24 Completed University of Vaccine 00:00:00 [facility] [place] [facility] TDAP (ADACEL) 2014-06-24 Completed University of VACCINE 00:00:00 [facility] Meningococcal 2014-06-24 Completed University of Vaccine 00:00:00 [facility] [place] [facility] TDAP (ADACEL) 2014-06-24 Completed University of VACCINE 00:00:00 [facility] [place] [facility] Meningococcal 2014-06-24 Completed University of Vaccine 00:00:00 [facility] TDAP (ADACEL) 2014-06-24 Completed University of VACCINE 00:00:00 [facility] Meningococcal 2014-06-24 Completed University of Vaccine 00:00:00 [facility] [place] [facility] TDAP (ADACEL) 2014-06-24 Completed University of VACCINE 00:00:00 [facility] [place] [facility] Meningococcal 2014-06-24 Completed University of Vaccine 00:00:00 [facility] TDAP (ADACEL) 2014-06-24 Completed University of VACCINE 00:00:00 [facility] [place] [facility] Meningococcal 2014-06-24 Completed University of Vaccine 00:00:00 [facility] [place] [facility] TDAP (ADACEL) 2014-06-24 Completed [facility] of VACCINE 00:00:00 [facility] [place] [facility] Meningococcal 2014-06-24 Completed University of Vaccine 00:00:00 [facility] [place] [facility] TDAP (ADACEL) 2014-06-24 Completed [facility] of VACCINE 00:00:00 [facility] [place] [facility] Meningococcal 2014-06-24 Completed University of Vaccine 00:00:00 [facility] [place] [facility] TDAP (ADACEL) 2013-03-12 Completed University of VACCINE 00:00:00 [facility] [place] [facility] TDAP (ADACEL) 2013-03-12 Completed [facility] of VACCINE 00:00:00 [facility] [place] [facility] TDAP (ADACEL) 2013-03-12 Completed [facility] of VACCINE 00:00:00 [facility] TDAP (ADACEL) 2013-03-12 Completed [facility] of VACCINE 00:00:00 [facility] TDAP (ADACEL) 2013-03-12 Completed [facility] of VACCINE 00:00:00 [facility] TDAP (ADACEL) 2013-03-12 Completed University of VACCINE 00:00:00 [facility] TDAP (ADACEL) 2013-03-12 Completed [facility] of VACCINE 00:00:00 [facility] TDAP (ADACEL) 2013-03-12 Completed [facility] of VACCINE 00:00:00 [facility] TDAP (ADACEL) 2013-03-12 Completed [facility] of VACCINE 00:00:00 [facility] TDAP (ADACEL) 2013-03-12 Completed [facility] of VACCINE 00:00:00 [facility] TDAP (ADACEL) 2013-03-12 Completed [facility] of VACCINE 00:00:00 [facility] TDAP (ADACEL) 2013-03-12 Completed [facility] of VACCINE 00:00:00 [place] [facility] TDAP (ADACEL) 2013-03-12 Completed [facility] of VACCINE 00:00:00 [place] [facility] TDAP (ADACEL) 2013-03-12 Completed [facility] of VACCINE 00:00:00 [facility] TDAP (ADACEL) 2013-03-12 Completed [facility] of VACCINE 00:00:00 [facility] TDAP (ADACEL) 2013-03-12 Completed [facility] of VACCINE 00:00:00 [facility] TDAP (ADACEL) 2013-03-12 Completed [facility] of VACCINE 00:00:00 [facility] TDAP (ADACEL) 2013-03-12 Completed [facility] of VACCINE 00:00:00 [facility] TDAP (ADACEL) 2013-03-12 Completed [facility] of VACCINE 00:00:00 [facility] TDAP (ADACEL) 2013-03-12 Completed [facility] of VACCINE 00:00:00 [facility] TDAP (ADACEL) 2013-03-12 Completed [facility] VACCINE 00:00:00 [facility] TDAP (ADACEL) 2013-03-12 Completed University of VACCINE 00:00:00 [facility] TDAP (ADACEL) 2013-03-12 Completed University of VACCINE 00:00:00 [facility] TDAP (ADACEL) 2013-03-12 Completed University of VACCINE 00:00:00 [facility] TDAP (ADACEL) 2013-03-12 Completed University of VACCINE 00:00:00 [facility] TDAP (ADACEL) 2013-03-12 Completed University of VACCINE 00:00:00 [facility] TDAP (ADACEL) 2013-03-12 Completed University of VACCINE 00:00:00 [facility] TDAP (ADACEL) 2013-03-12 Completed University of VACCINE 00:00:00 [facility] TDAP (ADACEL) 2013-03-12 Completed University of VACCINE 00:00:00 [facility] TDAP (ADACEL) Unknown Completed University [facility] VACCINE [facility] HPV9 Unknown Completed [facility] TDAP (ADACEL) Unknown Completed University of VACCINE [facility] Meningococcal Unknown Completed University of Vaccine [facility] HPV9 Unknown Completed [facility] Vital Signs Vital Name Observation Time Observation Value Comments Source Systolic blood 2023-04-24 15:10:00 148 mm[Hg] Univer sity of pressure [facility] Diastolic blood 2023-04-24 15:10:00 99 mm[Hg] Unive rsity of pressure [facility] Heart rate 2023-04-24 15:10:00 87 /min Universi ty of [facility] Body temperature 2023-04-24 15:10:00 37.11 Barby Univ ersity of [facility] Respiratory rate 2023-04-24 15:10:00 18 /min Univ ersity of [facility] Body height 2023-04-24 15:10:00 165.1 cm Universi ty of [facility] Body weight 2023-04-24 15:10:00 62.596 kg Universi ty of [facility] BMI 2023-04-24 15:10:00 22.96 kg/m2 Universi ty of [facility] Oxygen saturation in 2023-04-24 15:10:00 100 /min University of Arterial blood by [facility] Pulse oximetry Branch Systolic blood 2023-04-18 15:54:00 141 mm[Hg] Univer sity of pressure [facility] Diastolic blood 2023-04-18 15:54:00 73 mm[Hg] Unive rsity of pressure [facility] Heart rate 2023-04-18 15:54:00 58 /min Universi ty of [facility] Body temperature 2023-04-18 15:54:00 36.28 Barby Univ ersity of [facility] Respiratory rate 2023-04-18 15:54:00 18 /min Univ ersity of [facility] Body height 2023-04-18 15:54:00 162.6 cm Universi ty of [facility] Body weight 2023-04-18 15:54:00 62.914 kg Universi ty of [facility] BMI 2023-04-18 15:54:00 23.81 kg/m2 Universi ty of [facility] Systolic blood 2023-04-01 18:05:00 140 mm[Hg] Univer sity of pressure [facility] Diastolic blood 2023-04-01 18:05:00 87 mm[Hg] Unive rsity of pressure [facility] Heart rate 2023-04-01 18:02:00 97 /min Universi ty of [facility] Body temperature 2023-04-01 18:02:00 36 Barby Univ ersity of [facility] Body height 2023-04-01 18:02:00 165.1 cm Universi ty of [facility] Body weight 2023-04-01 18:02:00 61.236 kg Universi ty of [facility] BMI 2023-04-01 18:02:00 22.47 kg/m2 Universi ty of [facility] Oxygen saturation in 2023-04-01 18:02:00 97 /min University of Arterial blood by [facility] Pulse oximetry Branch Systolic blood 2023-02-14 15:01:00 126 mm[Hg] Univer sity of pressure [facility] Diastolic blood 2023-02-14 15:01:00 58 mm[Hg] Unive rsity of pressure [facility] Heart rate 2023-02-14 15:01:00 70 /min Universi ty of [facility] Body temperature 2023-02-14 15:01:00 36.61 Barby Univ ersity of [facility] Respiratory rate 2023-02-14 15:01:00 18 /min Univ ersity of [facility] Body height 2023-02-14 15:01:00 165.1 cm Universi ty of [facility] Body weight 2023-02-14 15:01:00 66.815 kg Universi ty of [facility] BMI 2023-02-14 15:01:00 24.51 kg/m2 Universi ty of [facility] Oxygen saturation in 2023-02-14 15:01:00 100 /min University of Arterial blood by [facility] Pulse oximetry Branch Systolic blood 2023-01-03 14:37:00 130 mm[Hg] Univer sity of pressure [facility] Diastolic blood 2023-01-03 14:37:00 85 mm[Hg] Unive rsity of pressure [facility] Heart rate 2023-01-03 14:37:00 66 /min Universi ty of [facility] Body temperature 2023-01-03 14:37:00 36.28 Barby Univ ersity of [facility] Body height 2023-01-03 14:37:00 165.1 cm Universi ty of [facility] Body weight 2023-01-03 14:37:00 68.221 kg Universi ty of [facility] BMI 2023-01-03 14:37:00 25.03 kg/m2 Universi ty of [facility] Oxygen saturation in 2023-01-03 14:37:00 98 /min [facility]ial blood by [facility] Systolic blood 2022-12-28 00:30:00 133 mm[Hg] Univer sity of pressure [facility] Diastolic blood 2022-12-28 00:30:00 75 mm[Hg] Unive rsity of pressure [facility] Heart rate 2022-12-28 00:30:00 82 /min Universi ty of [facility] Body temperature 2022-12-28 00:30:00 37.22 Barby Univ ersity of [facility] Respiratory rate 2022-12-28 00:30:00 16 /min Univ ersity of [facility] Body height 2022-12-28 00:30:00 165.1 cm Universi ty of [facility] Body weight 2022-12-28 00:30:00 67.858 kg Universi ty of [facility] BMI 2022-12-28 00:30:00 24.89 kg/m2 Universi ty of [facility] Oxygen saturation in 2022-12-28 00:30:00 100 /min [facility] of Arterial blood by [facility] Systolic blood 2022-12-28 00:06:00 145 mm[Hg] Univer sity of pressure [facility] Diastolic blood 2022-12-28 00:06:00 102 mm[Hg] Unive rsity of pressure [facility] Heart rate 2022-12-28 00:06:00 88 /min Universi ty of [facility] Body temperature 2022-12-28 00:06:00 36.39 Barby Univ ersity of [facility] Respiratory rate 2022-12-28 00:06:00 17 /min Univ ersity of [facility] Body weight 2022-12-28 00:06:00 67.813 kg Universi ty of [facility] BMI 2022-12-28 00:06:00 25.66 kg/m2 Universi ty [facility] Oxygen saturation in 2022-12-28 00:06:00 98 /min [facility] Arterial blood by [facility] Systolic blood 2022-12-20 14:41:00 128 mm[Hg] Univer sity of [facility] Diastolic blood 2022-12-20 14:41:00 79 mm[Hg] Unive rsity of [facility] Heart rate 2022-12-20 14:41:00 79 /min Universi ty of [facility] Body temperature 2022-12-20 14:41:00 36 Barby Univ ersity of [facility] Respiratory rate 2022-12-20 14:41:00 18 /min Univ ersity of [facility] Body height 2022-12-20 14:41:00 162.6 cm Universi ty [facility] Body weight 2022-12-20 14:41:00 69.854 kg Universi ty [facility] BMI 2022-12-20 14:41:00 26.43 kg/m2 Universi ty of [facility] Systolic blood 2022-09-21 15:50:00 132 mm[Hg] Univer sity of pressure [facility] Diastolic blood 2022-09-21 15:50:00 73 mm[Hg] Unive rsity of pressure [facility] Heart rate 2022-09-21 15:45:00 73 /min Universi ty [facility] Body temperature 2022-09-21 15:45:00 36.72 Barby Univ ersity of [facility] Respiratory rate 2022-09-21 15:45:00 19 /min Univ ersity of [facility] Body height 2022-09-21 15:45:00 165.1 cm Universi ty [facility] Body weight 2022-09-21 15:45:00 76.068 kg [facility]i [facility] BMI 2022-09-21 15:45:00 27.91 kg/m2 [facility] Systolic blood 2022-02-15 13:51:00 127 mm[Hg] Univer sity of [facility] Diastolic blood 2022-02-15 13:51:00 88 mm[Hg] Unive rsity of [facility] Heart rate 2022-02-15 13:51:00 71 /min Universi [facility] Body temperature 2022-02-15 13:51:00 36.11 Barby Univ ersity of [facility] Respiratory rate 2022-02-15 13:51:00 16 /min Univ ersity of [facility] Body height 2022-02-15 13:51:00 165.1 cm [facility] Body weight 2022-02-15 13:51:00 89.313 kg [facility] BMI 2022-02-15 13:51:00 32.77 kg/m2 [facility] Procedures Procedure Date / Time Performing Clinician Source Performed POCT TEST 2023-04-24 15:42:00 Rahel Grant [facility] URINALYSIS 2023-04-24 15:38:00 Rahel Grant [facility] ASSIGNMENT OF BENEFITS 2023-04-24 15:20:04 Doctor Unassigned[facility] CONS[facility]REFUSAL FOR 2023-04-24 15:04:50 Doctor Unassigned, No [facility] DIAGNOSIS AND TREATMENT [facility] POCT TEST 2023-04-18 00:00:00 Eliza Bowers [facility] COMP. METABOLIC PANEL 2023-04-01 18:36:00 Eliza Bowers [facility] ([id number]) [facility] CBC WITH DIFF 2023-04-01 18:36:00 S[place] [facility] POCT URINALYSIS 2023-01-03 15:09:00 [place] [facility] POCT TEST 2023-01-03 15:09:00 Eliza Bowers [facility] CT ABDOMEN PELVIS W 2022-12-28 02:03:46 Yaw Leiva [facility] CONTRAST [facility] ASSIGNMENT OF BENEFITS 2022-12-28 01:22:25 Doctor Unassigned, No [facility] POCT TEST 2022-12-28 01:05:00 Yaw Leiva [facility] LIPASE 2022-12-28 01:04:00 Yaw Leiva [facility] THYROID STIMULATING 2022-12-28 01:04:00 Yaw Leiva [facility] HORMONE [facility] COMP. METABOLIC PANEL 2022-12-28 01:04:00 Yaw Leiva [facility] ([id number]) [facility] CBC WITH DIFF 2022-12-28 01:04:00 Leiva, [facility] o f [facility] URINALYSIS 2022-12-28 01:04:00 [place] [facility] o f [facility] CONSENT/REFUSAL FOR 2022-12-28 00:17:56 Doctor Unassigned, No [facility] DIAGNOSIS AND TREATMENT [facility] ASSIGNMENT OF BENEFITS 2022-12-20 14:26:08 Doctor Unassigned, No [facility] Name [facility] POCT TEST 2022-09-21 00:00:00 Carla Franklin [facility] Encounters Start End Encounter Admission Attending Care Care Encounter Source Date/Time Date/Time Type Type Clinicians Facility Department ID 2021-06-08 Emergency [facility] [id number] [facility] 2023-04-24 2023-04-24 Emergency [facility] 1.2.840.114 [id number] Univers 10:13:00 12:05:00 Rahel WEBSTER 350.1.13.10 i [place] [phone] [address] 2023-04-24 2023-04-24 Emergency X [facility] ERT [id number] Univers 10:13:00 12:05:00 RAEHL oh [facility] 2023-04-18 2023-04-18 [id number] Univers 11:00:00 11:09:48 ELIZA oh [facility] 2023-04-18 2023-04-18 Office [facility] 1.2.840.114 [id number] Univers 11:00:00 11:09:48 Visit Eliza WEBSTER 350.1.13.10 [place] [id number] [address] 2023-04-04 2023-04-04 Telephone [facility] 1.2.290.014 [id number] Univers 00:00:00 00:00:00 Eliza WEBSTER 350.1.13.10 [place] [phone] Hi dical NAL 044 [facility] 2023-04-01 2023-04-01 [facility] [id number] Univers 13:53:27 23:59:00 ELIZA oh [facility] 2023-04-01 2023-04-01 Hospital [facility] 1.2.840.114 [id number] Univers 13:45:00 23:59:00 Encounter Eliza WEBSTER 350.1.13.10 ity of [facility] 4.2.7.2.[place] [id number] [facility] [address] 2023-04-01 2023-04-01 Gas Engine Operator 2, Adc Lab [facility] 1.2.840.114 [id number] Univers 13:30:00 13:36:46 Visit Eliza Bowers 350.1.13.10 ity of [place] [id number] Hi dical NAL 353 [facility] 2023-04-01 2023-04-01 Office [facility] 1.2.840.114 [id number] Univers 13:00:00 13:28:27 Visit Eliza WEBSTER 350.1.13.10 i ty [facility] 4.[place] [id number] Hi dical NAL 044 [facility] 2023-03-14 2023-03-14 Outpatient R [facility] [id number] Univers 11:00:00 11:00:00 ELIZA adriano [facility] 2023-03-09 2023-03-09 Refill [facility] 1.2.840.114 [id number] Univers 00:00:00 00:00:00 Eliza WEBSTER 350.1.13.10 i ty [place] [id number] Hi dical NAL 044 [facility] 2023-02-14 2023-02-14 Outpatient R [facility] [id number] Univers 10:00:00 10:27:33 ELIZA riddhinelli [facility] 2023-02-14 2023-02-14 [facility] 1.2.840.114 [id number] Univers 10:00:00 10:27:33 Visit Eliza WEBSTER 350.1.13.10 i ty [place] [id number] Hi dical NAL 044 [facility] 2023-01-23 2023-01-23 Outpatient R EMANUEL [facility] [id number] Univers 14:30:00 14:30:00 LESLIE oh o f [facility] 2023-01-10 2023-01-10 Outpatient R SOY [facility] [id number] Univers 00:00:00 00:00:00 ELIZA oh [facility] 2023-01-04 2023-01-04 [facility] 1.2.840.114 [id number] [facility] 00:00:00 00:00:00 Leslie Curry PROCUREMENT OFFICER 350.1.13.10 ity of [facility] 4.2.7.2.686 Matt as MATERNAL [id number] Med ical & CHILD [address] [place] [address] 2023-01-03 2023-01-03 Gas Engine Operator 2, Adc Lab [facility] 1.2.840.114 [id number] Univers 10:15:00 10:30:00 Visit Eliza BowersMIROSLAVA 350.1.13.10 ity of [place] [id number] [facility] 353 [facility] 2023-01-03 2023-01-03 Outpatient R SOY [facility] [id number] Univers 09:30:00 10:13:42 ELIZA oh [facility] 2023-01-03 2023-01-03 [facility] 1.2.840.114 [id number] Univers 09:30:00 10:13:42 Visit Eliza THOMPSONMIROSLAVA 350.1.13.10 i ty of [place] [id number] Hi dical NAL 044 [facility] 2023-01-03 2023-01-03 Telephone [facility] 1.2.840.114 [id number] Univers 00:00:00 00:00:00 Leslie Curry PROCUREMENT OFFICER 350.1.13.10 [facility] 4.2.7.2.686 Matt as MATERNAL [id number] [facility] ical & CHILD [address] [place] [address] 2023-01-01 2023-01-01 [facility] [id number] Univers 15:15:00 15:15:00 LESLIE oh o f [facility] 2023-01-01 2023-01-01 Outpatient R SOY [facility] [id number] Univers 08:30:00 08:30:00 ELIZA [facility] 2022-12-27 2022-12-27 Emergency X [facility] ERT [id number] Univers 19:33:00 21:29:00 YAW [facility] 2022-12-27 2022-12-27 Emergency [facility] 1.2.542.330 [id number] Univers 19:33:00 21:29:00 Yaw [place] 350.1.13.10 i ty [facility] [place].2.[place] [id number] [address] 2022-12-27 2022-12-27 Nurse Nurse, [facility] 1.2.840.114 [id number] Univers 19:00:00 19:20:00 Visit Unknown, Attending HEALTH 350.1.13.10 [facility] 4.2.7.2.686 Matt as CAROLYN?BLEA [id number] [address] MEDICAL OFFICE BUILDING 2022-12-27 2022-12-27 Outpatient R UNKNOWN, [facility] [id number] Univers 19:00:00 19:00:00 ATTENDING [facility] 2022-12-27 2022-12-27 Outpatient R SHALONDA, [facility] [id number] Univers 19:00:00 19:00:00 BAILEE [facility] 2022-12-25 2022-12-25 [facility]phone [facility] 1.2.840.114 [id number] Univers 00:00:00 00:00:00 Leslie C PROCUREMENT OFFICER 350.1.13.10 ity of [place] 4.2.7.2.686 Matt as MATERNAL [id number] Med ical & CHILD 107 [facility] 2022-12-20 2022-12-20 Outpatient R EMANUEL [facility] [id number] Univers 10:00:00 10:58:56 LESLIE ity o f [facility] 2022-12-20 2022-12-20 Office [facility] 1.2.351.852 [id number] [facility] 10:00:00 10:58:56 Visit Leslie Curry PROCUREMENT OFFICER 350.1.13.10 ity of [facility] 4.2.7.2.686 Matt as MATERNAL [id number] Med ical & CHILD [address] [place] [address] 2022-12-20 2022-12-20 Orders Doctor HADLEY 1.2.840.114 [id number] Univers 00:00:00 00:00:00 Only Unassigned, LEIHGA 350.1.13.10 ity of [place] [facility] 4.2.7.2.686 Matt as [id number] [address] 2022-09-24 2022-09-24 Case Roderick [facility] 1.2.840.114 [id number] Univers 00:00:00 00:00:00 Management Carla Lang PROCUREMENT OFFICER 350.1.13.10 ity of [facility] 4.2.7.2.686 Matt as MATERNAL [phone] Med ical & CHILD [address] [place] [address] 2022-09-21 2022-09-21 Outpatient R RODERICK [facility] [id number] Univers 09:30:00 10:18:05 CARLA itnelli [facility] 2022-09-21 2022-09-21 Office Provider, [facility]red[facility] 1 .2.840.114 [id number] Univers 09:30:00 10:18:05 Visit Carla Franklin PROCUREMENT OFFICER 350.1.13.1 0 ity of [facility] 4.2.7.2.686 Matt as MATERNAL [id number] Med ical & CHILD [address] [place] [address] 2022-09-21 2022-09-21 Letter Roderick [facility] 1.2.840.114 [id number] Univers 00:00:00 00:00:00 (Out) Carla A PROCUREMENT OFFICER 350.1.13.10 i ty of [place] 4.2.7.2.686 Matt as MATERNAL [id number] [facility] [address] [place] [address] 2022-09-07 2022-09-07 Outpatient R ROSALES CHAPIN [facility] [id number] Univers 08:30:00 08:30:00 ROSALES CHAPIN [facility] 2022 2022 Outpatient R HENOK [facility] [id number] Univers 13:40:00 13:40:00 ATTENDING [facility] 2022-02-15 2022-02-15 Office [facility] 1.2.840.114 [id number] Univers 09:00:00 09:18:29 Visit Jacob Love PROCUREMENT OFFICER 350.1.13.10 ity of [facility] 4.2.7.2.686 Matt as MATERNAL [id number] [facility] & CHILD [address] [place] [address] 2022-02-15 2022-02-15 Outpatient Ivan BARRIENTOS [facility] [id number] Univers 09:00:00 09:18:29 JACOB oh o f [facility] 2022-02-15 2022-02-15 Outpatient Ivan BARRIENTOS [facility] [id number] Univers 09:00:00 09:00:00 JACOB oh o f [facility] 2022-02-15 2022-02-15 Outpatient Ivan BARRIENTOS [facility] [id number] Univers 09:00:00 09:00:00 JAZLYNA adriano o f [facility] 2022-01-12 2022-01-12 Telephone Floyd [facility] 1.2.133.206 [id number] Univers 00:00:00 00:00:00 Jacob R PROCUREMENT OFFICER 350.1.13.10 ity of [place] 4.2.7.2.686 Matt as MATERNAL [id number] Med ical & CHILD [address] [place] [address] 2022-01-11 2022-01-11 Office Floyd MEALISON 1.2.840.114 [id number] Univers 15:15:00 16:08:32 Visit Jacob Love PROCUREMENT OFFICER 350.1.13.10 ity of [facility] 4.2.7.2.686 Matt as MATERNAL [id number] [facility] [address] [place] [address] 2022-01-11 2022-01-11 Outpatient R FLOYD [facility] [id number] Univers 15:15:00 16:08:32 JACOB oh o alvaro [facility] 2022-01-11 2022-01-11 Outpatient R FLOYD [facility] [id number] Univers 15:15:00 15:15:00 JACOB oh o [facility] 2021-11-16 2021-11-16 Outpatient R [facility] [id number] Univers 10:30:00 10:30:00 ity of [facility] 2021-11-16 2021-11-16 [facility] [id number] Univers 08:00:00 08:20:47 JACOB oh o [facility] 2021-11-16 2021-11-16 Nurse Visit, [facility] Nurse [facility] 1.2 .840.114 [id number] Univers 08:00:00 08:20:47 Visit Jacob Barrientos PROCUREMENT OFFICER 350.1.13.10 ity of [facility] 4.2.7.2.686 Matt as MATERNAL [id number] [facility] ical & CHILD [address] [place] [address] 2021-11-03 2021-11-03 Telephone Floyd MEALSION 1.2.837.868 [id number] Univers 00:00:00 00:00:00 Jacob Love PROCUREMENT OFFICER 350.1.13.10 ity of [facility] 4.2.7.2.686 Matt as MATERNAL [id number] [facility] ical & CHILD [address] [place] [address] 2021-11-02 2021-11-02 Office Floyd [place] 1.2.840.114 [id number] Univers 10:30:00 11:58:09 [facility] PROCUREMENT OFFICER 350.1.13.10 ity of [facility] 4.2.7.2.686 Matt as MATERNAL [id number] Med ical & CHILD [address] [place] [address] 2021-11-02 2021-11-02 Outpatient Ivan FLOYD [facility] [id number] Univers 10:30:00 11:58:09 JACOB ity o f [facility] 2021-11-02 2021-11-02 Outpatient [facility] [id number] Univers 10:30:00 11:58:09 CIERRACARLOS riddhinelli o [facility] 2021-11-02 2021-11-02 Outpatient Ivan BARRIENTOS [facility] [id number] Univers 10:30:00 10:30:00 CIERRACARLOS oh o [facility] 2021-11-02 2021-11-02 Outpatient Ivan BARRIENTOS [facility] [id number] Univers 10:30:00 10:30:00 CIERRACARLOS riddhinelli o [facility] 2021-11-02 2021-11-02 Orders Doctor HADLEY 1.2.840.114 [id number] Univers 00:00:00 00:00:00 Only Unassigned, LEIGHA 350.1.13.10 [place] 4.2.7.2.686 Matt as [id number] [facility] [address] 2021-10-16 2021-10-16 Emergency [facility] [id number] Univers 19:47:00 20:32:00 [facility] 2021-10-16 2021-10-16 Emergency [facility] 1.2.840.114 [id number] Univers 19:47:00 20:32:00 [facility] 350.1.13.10 ity [facility] [place]2.7.2.[place] [id number] [facility] [address] 2021-08-01 2021-08-01 Outpatient [facility] [id number] Univers 08:30:00 09:21:32 JACOB ity o f [facility] 2021-08-01 2021-08-01 [facility] 1.2.840.114 [id number] Univers 08:30:00 09:21:32 Visit Jacob Love PROCUREMENT OFFICER 350.1.13.10 ity of [facility] 4.2.7.2.686 Matt as MATERNAL [phone] [facility] ical & CHILD [address] [place] [address] 2021-08-01 2021-08-01 Orders Doctor HADLEY 1.2.840.114 [id number] Univers 00:00:00 00:00:00 Only Unassigned, LEIGHA 350.1.13.10 ity of [place] [facility] 4.2.7.2.686 Matt as [phone] [address] 2021-07-31 2021-07-31 Telephone [facility] 1.2.260.679 [id number] Univers 00:00:00 00:00:00 Jacob Love PROCUREMENT OFFICER 350.1.13.10 ity of [facility] 4.2.7.2.686 Matt as MATERNAL [phone] [facility] [place] & CHILD [address] [place] [address] 2021-06-13 2021-06-13 Outpatient Ivan APARICIO [facility] [id number] Univers 10:30:00 10:58:17 CINDY oh [facility] 2021-06-13 2021-06-13 Office [facility] 1.2.840.114 [id number] Univers 10:01:19 10:58:17 Visit Cindy PROCUREMENT OFFICER 350.1.13.10 ity of [facility] 4.2.7.2.686 Matt as MATERNAL [phone] [facility] ical & CHILD [address] [facility] [place] [place] 2021-06-13 2021-06-13 Outpatient Ivan APARICIO [facility] [id number] Univers 10:30:00 10:30:00 CINDY oh [facility] 2021-06-06 2021-06-06 Telephone [facility] 1.2.680.063 [id number] Univers 00:00:00 00:00:00 Jacob Love PROCUREMENT OFFICER 350.1.13.10 ity of [facility] 4.2.7.2.686 Matt as MATERNAL [phone] [facility] [place] & CHILD [address] [place] [address] 2021-04-10 2021-04-10 Outpatient R EMANUEL [facility] [id number] Univers 10:00:00 10:00:00 LESLIE oh o f [facility] 2021-03-31 2021-03-31 Letter HADLEY Jnoes 1.2.840.114 [id number] Univers 00:00:00 00:00:00 (Out) Rayne Godoy LEIGHA 350.1.13.10 it y [facility] 4.2.7.2.686 Matt as [phone] [address] 2021-03-30 2021-03-30 Outpatient R ANTONIO [facility] [id number] Univers 12:30:00 12:30:00 NI oh [facility] 2020-12-30 2020-12-30 Office Floyd [facility] 1.2.840.114 [id number] Univers 09:29:12 10:10:09 Visit Jacob Love PROCUREMENT OFFICER 350.1.13.10 ity of [facility] 4.2.7.2.686 Matt as MATERNAL [phone] [facility] [place] & CHILD [address] [place] [address] 2020-12-30 2020-12-30 Office Floyd [facility] 1.2.840.114 [id number] 09:29:12 10:10:09 Visit Jacob Love PROCUREMENT OFFICER 350.1.13.10 [facility] 4.2.7.2.686 MATERNAL [phone] & CHILD [address] [place] [address] 2020-12-30 2020-12-30 Outpatient R EMANUEL [facility] [id number] Univers 09:30:00 09:30:00 LESLIE john [facility] 2020-12-30 2020-12-30 Outpatient R FLOYD [facility] [id number] Univers 08:45:00 08:45:00 JACOB john [facility] 2020-12-16 2020-12-16 Office [facility] 1.2.513.380 [id number] Univers 08:57:28 09:27:28 Visit Leslie Curry PROCUREMENT OFFICER 350.1.13.10 ity of [facility] 4.2.7.2.686 Matt as MATERNAL [phone] [facility] [address] [place] [address] 2020-12-16 2020-12-16 Outpatient R EMANUEL [facility] [id number] Univers 09:00:00 09:00:00 LESLIE oh o f [facility] 2020-12-16 2020-12-16 Orders Doctor HADLEY 1.2.840.114 [id number] Univers 00:00:00 00:00:00 Only Unassigned, LEIGHA 350.1.13.10 ity of [place] [facility] 4.2.7.2.686 Matt as [phone] [address] 2020-12-02 2020-12-02 Telephone [facility] 1.2.840.114 [id number] Univers 00:00:00 00:00:00 Leslie Curry PROCUREMENT OFFICER 350.1.13.10 ity of [facility] 4.2.7.2.686 Matt as MATERNAL [phone] [facility] [place] & [address] 2020-11-29 2020-11-29 Nurse Visit, [facility] Nurse [facility] 1.2 .840.114 [id number] Univers 15:31:01 15:46:01 Visit Jacob Barrientos PROCUREMENT OFFICER 350.1.13.10 ity of [facility] 42.7.2.686 Matt as MATERNAL [phone] [facility] [place] & CHILD [address] [place] [address] 2020-11-29 2020-11-29 Outpatient R FLOYD [facility] [id number] Univers 15:30:00 15:30:00 JACOB john [facility] 2020-11-29 2020-11-29 Telephone [facility] 1.2.271.721 [id number] Univers 00:00:00 00:00:00 Jacob Love PROCUREMENT OFFICER 350.1.13.10 ity of [facility] 42.7.2.686 Matt as MATERNAL [phone] [facility] ical & CHILD [address] [place] [address] 2020-11-02 2020-11-02 Office Barrientos [facility] 1.2.840.114 [id number] Univers 10:16:29 11:05:27 Visit Jacob Ivan PROCUREMENT OFFICER 350.1.13.10 ity of [facility] 4.2.7.2.686 Matt as MATERNAL [phone] [facility] [place] & CHILD [address] [place] [address] 2020-11-02 2020-11-02 [facility] [id number] Univers 10:15:00 10:15:00 SHEILACARLOS renner [facility] 2020-11-02 2020-11-02 Orders Doctor HADLEY 1.2.840.114 [id number] Univers 00:00:00 00:00:00 Only Unassigned, LEIGHA 350.1.13.10 ity of [place] [facility] 4.2.7.2.686 Matt as [phone] [facility] [address] 2020-11-01 2020-11-01 [facility] [id number] Univers 15:00:00 15:00:00 SHEILACARLOS john [facility] 2020-11-01 2020-11-01 Patient [facility] 1.2.840.114 [id number] Univers 00:00:00 00:00:00 Outreach Joel PRIMARY 350.1.13.10 i ty of [facility] 4.2.7.2.[place] [phone] Hi dical [address] 2020-07-13 2020-07-13 Patient Doctor MAURA 1.2.840.114 [id number] Univers 00:00:00 00:00:00 Secure Msg Unassigned, GODOY 350.1.13.10 ity [place] [phone] [facility] [address] 2020-07-04 2020-07-04 Refill Emanuel [facility] 1.2.884.733 [id number] Univers 00:00:00 00:00:00 Leslie Curry PROCUREMENT OFFICER 350.1.13.10 ity of [facility] 4.2.7.2.686 Matt as MATERNAL [phone] [facility] [address] [place] [address] 2020-06-13 2020-06-13 Outpatient R AKINSIPE, [facility] [id number] Univers 09:15:00 09:15:00 LESLIE ity o f [facility] 2020-06-13 2020-06-13 Outpatient R AKINSIPE, [facility] [id number] Univers 09:15:00 09:15:00 LESLIE ity o f [facility] 2020-06-01 2020-06-01 Refill [facility] 1.2.735.973 [id number] Univers 00:00:00 00:00:00 Leslie Patricio PROCUREMENT OFFICER 350.1.13.10 ity of [facility] 4.2.7.2.686 Matt as MATERNAL [phone] [facility] [place] & CHILD [address] [place] [address] 2020-05-30 2020-05-30 Danna [facility] 1.2.840.114 [id number] Univers 00:00:00 00:00:00 [facility] 350.1.13.10 it y of [place] 4.2.7.2.686 Matt as Professio [phone] Hi dical [address] Office [facility] 2020-05-27 2020-05-27 Outpatient R AKINSIPE, [facility] [id number] Univers 10:30:00 10:30:00 LESLIE ity o f [facility] 2020-05-27 2020-05-27 Outpatient R AKINSIPE, [facility] [id number] Univers 10:30:00 10:30:00 LESLIE ity o f [facility] 2020-05-10 2020-05-10 Urgent Provider, [facility] 1.2.840.114 [id number] Univers 11:18:40 11:38:40 Elena [facility] 350.1.13.10 ity of [place] 4.2.7.2.686 Matt as Professio [phone] Hi dical nal [address] Office [facility] 2020-05-10 2020-05-10 Outpatient R ALYSIA, [facility] [id number] [facility] 11:20:00 11:20:00 ELENA ity of [facility] 2020-05-09 2020-05-09 [facility] 1.2.921.654 [id number] Univers 00:00:00 00:00:00 Jacob R PROCUREMENT OFFICER 350.1.13.10 ity of [facility] 4.2.7.2.686 Matt as MATERNAL [phone] [facility] [address] [place] [address] 2020-03-31 2020-03-31 [facility] 1.2.336.278 [id number] Univers 09:26:23 10:13:41 Visit Leslie C PROCUREMENT OFFICER 350.1.13.10 ity of [facility] 4.2.7.2.686 Matt as MATERNAL [phone] [facility] [place] & [address] 2020-03-31 2020-03-31 Outpatient R EMANUEL, [facility] [id number] Univers 09:00:00 09:00:00 LESLIE hannony o f [facility] 2020-03-11 2020-03-11 [facility]phone [facility] 1.2.840.114 [id number] Univers 00:00:00 00:00:00 Leslie C PROCUREMENT OFFICER 350.1.13.10 ity of [facility] 4.2.7.2.686 Matt as MATERNAL [id number] [facility] [place] & [address] 2020-03-10 2020-03-10 Outpatient R EMANUEL, [facility] [id number] Univers 14:30:00 14:30:00 LESLIE ity o f [facility] 2020-03-10 2020-03-10 [facility] 1.2.804.156 [id number] Univers 10:09:10 11:09:52 Visit Leslie C PROCUREMENT OFFICER 350.1.13.10 ity of [facility] 4.2.7.2.686 Matt as MATERNAL [phone] [facility] [place] & CHILD [address] [place] [address] 2020-03-07 2020-03-07 [facility] 1.2.390.740 [id number] Univers 00:00:00 00:00:00 Roshunda R PROCUREMENT OFFICER 350.1.13.10 ity of [place] 4.2.7.2.686 Matt as MATERNAL [phone] [facility] ical & CHILD [address] [place] [address] 2019-12-29 2019-12-30 Initial Barrientos [facility] 1.2.840.114 [id number] Univers 13:01:04 11:33:02 Roshunda R PROCUREMENT OFFICER 350.1.13.10 ity of Visit REG[facility]AL 4.2.7.2.686 Matt as MATERNAL [phone] Med ical & CHILD [address] [place] [address] 2019-12-30 2019-12-30 Patient Doctor [facility] 1.2.840.114 [id number] Univers 00:00:00 00:00:00 Secure Msg Unassigned, PROCUREMENT OFFICER 350.1.13.10 ity of [place] 4.2.7.2.686 Matt as MATERNAL [phone] Med ical & CHILD [address] [place] [address] 2019-12-30 2019-12-30 Patient Doctor [facility] 1.2.840.114 [id number] Univers 00:00:00 00:00:00 Secure Msg Unassigned, PROCUREMENT OFFICER 350.1.13.10 ity of [place] [facility] 4.2.7.2.686 Matt as MATERNAL [phone] [facility] [address] [place] [address] 2019-12-29 2019-12-29 Office Floyd [facility] 1.2.840.114 [id number] Univers 14:04:59 14:20:25 Visit Sheilanda R PROCUREMENT OFFICER 350.1.13.10 ity of [place] 4.2.7.2.686 Matt as MATERNAL [phone] [facility] ical & CHILD [address] [place] [address] 2019-12-29 2019-12-29 Outpatient R FLOYD [facility] [id number] Univers 12:45:00 12:45:00 SHEILANDA ity o f [facility] 2019-12-15 2019-12-15 Emergency Gadiel [facility] 1.2.279.536 [id number] Univers 07:30:05 08:20:00 Fletcher [place] 350.1.13.10 i ty of [place].2.686 [place] [phone] [address] 2019-12-14 2019-12-14 Patient Frank [facility] 1.2.840.114 [id number] Univers 00:00:00 00:00:00 Secure Msg Ethel PROCUREMENT OFFICER 350.1.13.10 ity of [facility] 4.2.7.2.686 Matt as MATERNAL [phone] [facility] [address] [place] [address] 2019-11-30 2019-11-30 Outpatient R [facility] [id number] Univers 08:30:00 08:30:00 ity [facility] 2019-11-27 2019-11-27 Outpatient R [facility] [id number] Univers 09:30:00 09:30:00 ity [facility] 2019-11-26 2019-11-26 Outpatient R [facility] [id number] Univers 09:00:00 09:00:00 ity [facility] 2019-11-26 2019-11-26 Telephone Floyd [facility] 1.2.741.979 [id number] Univers 00:00:00 00:00:00 Rosjanethnda R PROCUREMENT OFFICER 350.1.13.10 ity of [facility] 4.2.7.2.686 Matt as MATERNAL [phone] [address] 2019-11-24 2019-11-24 [facility] [id number] Univers 09:30:00 09:30:00 LESLIE ity o f [facility] 2019-11-03 2019-11-03 Outpatient Raju_P MMG MMG [id number] [place] 05:13:00 05:13:00 0324 Medical [facility] 2019-10-27 2019-10-27 Patient Floyd [facility] 1.2.840.114 [id number] Univers 00:00:00 00:00:00 Secure Msg Roshunda R PROCUREMENT OFFICER 350.1.13.10 ity of [facility] 4.2.7.2.686 Matt as MATERNAL [phone] [facility] [place] & CHILD [address] [place] [address] 2019-10-16 2019-10-16 Office [facility] 1.2.736.837 [id number] Univers 10:45:40 11:26:43 Visit Leslie C PROCUREMENT OFFICER 350.1.13.10 ity of [place] 4.2.7.2.686 Matt as MATERNAL [phone] [facility] [address] [place] [address] 2019-10-16 2019-10-16 Outpatient R EMANUEL, [facility] [id number] Univers 10:45:00 10:45:00 LESLIE ity o f [facility] 2019-10-07 2019-10-07 Office [facility] 1.2.055.644 [id number] Univers 12:51:31 13:44:17 Visit Leslie C PROCUREMENT OFFICER 350.1.13.10 ity of [place] 4.2.7.2.686 Matt as MATERNAL [phone] [facility] [place] & [address] 2019-10-07 2019-10-07 Outpatient R EMANUEL, [facility] [id number] Univers 13:00:00 13:00:00 LESLIE ity o f [facility] 2019-10-06 2019-10-06 Telephone [facility] 1.2.840.114 [id number] Univers 00:00:00 00:00:00 Leslie C PROCUREMENT OFFICER 350.1.13.10 ity of [place] 4.2.7.2.686 Matt as MATERNAL [phone] [facility] [place] & CHILD [address] [place] [address] 2019-10-02 2019-10-02 Office [facility] 1.2.354.489 [id number] Univers 14:07:49 15:15:37 Visit Leslie C PROCUREMENT OFFICER 350.1.13.10 ity of [place] 4.2.7.2.686 Matt as MATERNAL [phone] [facility] [place] & CHILD [address] [place] [address] 2019-08-25 2019-08-25 Office [facility] 1.2.019.690 [id number] Univers 09:57:53 13:09:26 Visit Leslie C PROCUREMENT OFFICER 350.1.13.10 ity of [place] 4.2.7.2.686 Matt as MATERNAL [phone] Med ical & CHILD 107 [facility] 2019-08-25 2019-08-25 Orders Doctor HADLEY 1.2.840.114 [id number] Univers 00:00:00 00:00:00 Only Unassigned, LEIGHA 350.1.13.10 ity of [place] [facility] 4.2.7.2.686 Matt as [phone] [facility] [address] 2019-08-25 2019-08-25 Letter Emanuel [facility] 1.2.461.861 [id number] Univers 00:00:00 00:00:00 (Out) Leslie Curry PROCUREMENT OFFICER 350.1.13.10 ity of [facility] 4.2.7.2.686 Matt as MATERNAL [phone] Med ical & CHILD [address] [place] [address] 2019-03-05 2019-03-05 Emergency [facility] 1.2.321.489 [id number] Univers 22:28:42 23:12:00 Alvin Webster 350.1.13.10 i ty of [place] 4.2.7.2.686 [place] [facility] [phone] [place] [address] [place] Results Test Description Test Time Test Comments Results Result Comments Source POCT TEST 2023-04-24 15:42:00 Test Item Value Reference Range Interpretation Comme nts POCT PREG (test code = 1605) Negative On board controls acceptable with C Line (test code = 3574) Yes POCT PREG LOT # (test code = 3575) [id number] POCT PREG TEST DATE (test code = 3576) 2024-08-14 Lab Interpretation (test code = 71266-0) [id number] 16:00:00 Test Item Value Reference Range Interpretation Comments POCT PREG (test code = 1605) Negative On board controls acceptable with C Yes Line (test code = 3574) POCT PREG LOT # (test code = 3575) POCT PREG TEST DATE (test code = 3576) [facility] [id number] 16:00:00 Test Item Value Reference Range Interpretation Comments POCT PREG (test code = 1605) Negative On board controls acceptable with C Yes Line (test code = 3574) POCT PREG LOT # (test code = 3575) POCT PREG TEST DATE (test code = 357) [facility] URINALYSIS W SPECIFIC [id number] 15:11:00 Test Item Value Reference Range Interpretation [...] 3267) Lab Interpretation (test code Abnormal = 99639-1) [facility] URINALYSIS W SPECIFIC [id number] 15:11:00 Test Item Value Reference Range Interpretation Comments POCT U SP GRAV (test code = 1.005 mg/dl 1.005-1.025 5) POCT PH U (test code = 3254) [...] 3267) Lab Interpretation (test code Abnormal = 24743-4) [facility] [id number] 15:09:00 Test Item Value Reference Range Interpretation Comments POCT PREG (test code = 1605) Negative On board controls acceptable with C Yes Line (test code = 3574) POCT PREG LOT # (test code = 3575) POCT PREG TEST DATE (test code = 3576) [facility] [id number] 15:09:00 Test Item Value Reference Range Interpretation Comments POCT PREG (test code = 1605) Negative On board controls acceptable with C Yes Line (test code = 3574) POCT PREG LOT # (test code = 3575) POCT PREG TEST DATE (test code = 3576) [facility] [id number] 02:02:22 Test Item Value Reference Range Interpretation Comments TSH (test code = 2.26 See_Comment [Automated message] [id number]) The system [employer] generated this result transmitted ref erence range: 0.45 - 4 .70 mIU/L. The refe rence range was not u sed to interpret this result as normal/abnor mal. Lab Interpretation (test Normal code = 63643-6) [facility]. METABOLIC PANEL ([id number])2022-12-28 01:32:39 Test Item Value Reference Range Interpretation Comments NA (test code = 139 mmol/L 135-145 8784067804) K (test code = 3.4 mmol/L 3.5-5.0 L 7863034288) CL (test code = 103 mmol/L 98-108 8322411746) CO2 TOTAL (test code = 24 mmol/L 23-31 9178685874) AGAP (test code = 12 2-16 8861672816) BUN (test code = 8 mg/dL 7-23 7874133199) GLUCOSE (test code = 121 mg/dL 70-110 H 5348018420) CREATININE (test code = 0.57 mg/dL 0.50-1.04 8480835626) TOTAL BILI (test code = 1.0 mg/dL 0.1-1.4 2928985224) CALCIUM (test code = 9.2 mg/dL 8.6-10.6 8500548001) T PROTEIN (test code = 6.9 g/dL 6.3-8.2 8678174185) ALBUMIN (test code = 4.4 g/dL 3.5-5.0 9130973739) ALK PHOS (test code = 47 U/L 34-122 0907366223) ALTv (test code = 16 U/L 5-35 1742-6) AST(SGOT) (test code = 22 U/L 13-40 1886369906) eGFR (test code = 133.9 mL/min/1.73m2 4693396077) VICENTE (test code = VICENTE) Association of [...] tests). Lab Interpretation Abnormal (test code = 81594-4) [id number] 01:32:19 Test Item Value Reference Range Interpretation Comments LIPASE (test code = 1079785511) 67 U/L 0-220 Lab Interpretation (test code = Normal 07374-7) [facility] WITH [id number] 01:20:58 Test Item Value Reference Range Interpretation Comments WBC (test code = 9.89 See_Comment [Automated 6690-2) message] The sy stem which generated this result transmitted reference range : 4.30 - 11.10 10*3/?L. The reference range was not used to interpret this result as normal/abnormal . RBC (test code = 4.29 See_Comment [Automated 789-8) message] The sy stem which generated this [...] (test code = 38.2 fL 39.0-49.9 L 99281-6) RDW-CV (test code = 11.9 % 12.0-15.5 L 788-0) PLT (test code = 177 See_Comment [Automated 777-3) message] The sy stem which generated this result transmitted reference range : 166 - 358 10*3/ ?L. The reference r kim was not used to interpret this result as normal/abnormal . MPV (test code = 11.6 fL 9.5-12.9 22224-1) NRBC/100 WBC (test 0.0 See_Comment [Automat ed code = 5721256544) message] The system which generated this result transmitted reference range : 0.0 - 10.0 /100 WBCs. The refer ence range was not u sed to interpret th is result as normal/abnormal . NRBC x10^3 (test code See_Comment [Auto mated = 4293936867) message] The s ystem which generated this result transmitted reference range : 10*3/?L. The reference range was not used to interpret this result as normal/abnormal . GRAN MAT (NEUT) % 64.1 % (test code = 770-8) IMM GRAN % (test code 0.30 % = 2635990388) LYMPH % (test code = 28.1 % 736-9) MONO % (test code = 5.8 % 5905-5) EOS % (test code = 1.3 % 713-8) BASO % (test code = 0.4 % 706-2) GRAN MAT x10^3(ANC) 6.34 10*3/uL 1.88-7.09 (test code = 4836533109) IMM GRAN x10^3 (test 0.03 10*3/uL 0.00-0.06 code = 8894540087) LYMPH x10^3 (test code 2.78 10*3/uL 1.32-3.29 = 731-0) MONO x10^3 (test code 0.57 10*3/uL 0.33-0.92 = 742-7) EOS x10^3 (test code = 0.13 10*3/uL 0.03-0.39 711-2) BASO x10^3 (test code 0.04 10*3/uL 0.01-0.07 = 704-7) Lab Interpretation Abnormal (test code = 29948-4) [facility] [id number] 01:05:00 Test Item Value Reference Range Interpretation Comments POCT PREG (test code = 1605) Negative On board controls acceptable with Yes C Line (test code = 3574) POCT PREG LOT # (test code = 3575) [id number] POCT PREG TEST DATE (test 2024-03-19 code = 3576) Lab Interpretation (test code = Normal 02402-0) [facility] [id number] 15:47:00 Test Item Value Reference Range Interpretation Comments POCT PREG (test code = 1605) Negative On board controls acceptable with C Yes Line (test code = 3574) POCT PREG LOT # (test code = 3575) POCT PREG TEST DATE (test code = 3576) [facility] [id number] 15:47:00 Test Item Value Reference Range Interpretation Comments POCT PREG (test code = 1605) Negative On board controls acceptable with C Yes Line (test code = 3574) POCT PREG LOT # (test code = 3575) POCT PREG TEST DATE (test code = 3576) [facility]
[2023-06-13 13:01] LABS: Specific Gravity 1.026 (1.005-1.030)
[2023-06-13 13:05] LABS: Absolute Lymphocytes (CBC) 0.9 K/uL (0.7-4.9); Hematocrit 43.6 % (36.0-45.0); Lymphocytes % 8.6 % (15.3-44.8); MPV 9.4 fL (7.6-11.3); Platelets 168 thou/uL (152-406); RBC Red Blood Cell Count 4.64 M/uL (3.86-4.86)
[2023-06-13 13:09] LABS: Specific Gravity 1.026 (1.005-1.030); Urine Bacteria None Seen /HPF (<20); Urine Bilirubin NEGATIVE (Negative); Urine Blood Negative (Negative); Urine Clarity Extremely Turbid (Clear); Urine Color Light-Yellow (Yellow); Urine Glucose NEGATIVE (Negative); Urine Mucus 1+ /HPF (None Seen); Urine Protein NEGATIVE (Negative); Urine RBC <5 /HPF (None Seen); Urine Urobilinogen Normal (Normal)
[2023-06-13 13:19] LABS: Albumin 4.2 g/dL (3.4-5.0); Bilirubin Total 0.9 mg/dL (0.2-1.0); Potassium 3.5 mEq/L (3.5-5.1); Protein, Total 7.8 g/dL (6.4-8.2)
[2023-06-13] MEDS ORDERED: NA CHLORIDE 0.9% 1,000 ML ONE (13:25)
[2023-06-13] MEDS ORDERED: ONDANSETRON 4 MG/2 ML VIAL ONE (13:25)
[2023-06-13] MEDS ORDERED: KETOROLAC 30 MG/ML INJ ONE ×2 (13:25→15:43)
--- NOTE | 2023-06-13 14:04 | RAD REPORT ---
EXAM DESCRIPTION: CT - Abdomen Pelvis W Contrast - 06/13/2023 1:23 pm CLINICAL HISTORY: ABD PAIN COMPARISON: Abdomen Pelvis W Contrast dated 05/28/2021 TECHNIQUE: Thin cut axial CT imaging of the abdomen and pelvis was performed following intravenous a dministration of 100 mL Isovue 300. Multiplanar reformats were generated and reviewed. All CT scans are performed using dose optimization technique as appropriate and may include automated exposure control or mA/KV adjustment according to patient size. FINDINGS: No suspicious findings in the lung bases. The liver, spleen, adrenal glands, and pancreas show no suspicious findings. Gallbladder and biliary tree are also without suspicious finding. Symmetric renal function is seen with no hydronephrosis or suspicious renal mass. Sub centimeter left renal hypoattenuating cortical lesions, not well characterized given size but suggestive of small cy sts. No dilated bowel loops or bowel wall thickening. No free air, fluid collections, or inflammatory stra nding. No hernia, mass or bulky lymphadenopathy. Small amount of pelvic free fluid. Collapsed marginally enhancing bilateral adnexal lesions, the larg est on the right measuring 2.1 cm, suggestive of recently ruptured follicles or collapsed cysts. Urin jeremy bladder is decompressed limiting evaluation. No suspicious bony findings. IMPRESSION: No acute intra-abdominal process. Small amount of free pelvic fluid, favored to be physiologic. Findings suggestive of recently rupture d follicles or collapsed adnexal cysts.
--- NOTE | 2023-06-13 15:39 | RAD REPORT ---
EXAM DESCRIPTION: US - Transvaginal Study Probe - 06/13/2023 2:48 pm CLINICAL HISTORY: pain, rule out torsion COMPARISON: Abdomen Pelvis W Contrast dated 06/13/2023 TECHNIQUE: Sonographic grayscale and color flow images of the pelvis were obtained through transva ginal approach. FINDINGS: The uterus is normal in size, shape and echotexture. The uterus measures . The endometrial stripe measures 8 mm, normal. Both ovaries are normal in size, shape and echotexture. The right ovary measures 3.9 x 2.8 x 2.5 cm. The left ovary measures 3.0 x 2.2 x 2.3 cm. No ovarian or parovarian lesions. No adnexal masses. Normal Doppler blood flow was demonstrated to both ovaries. Mild free pelvic ascites. IMPRESSION: No evidence of ovarian torsion. Trace free pelvic ascites, likely a physiologic age.
--- NOTE | 2023-06-13 15:45 | EDPHYS ---
Physician Documentation [facility] Name: Maylin Zuniga Age: 23 yrs Sex: Female : 2000 Arrival Date: 06/13/2023 Time: 12:18 Bed 19 Private MD: ED Physician Oleg Leal HPI: 06/13 12:41 This 23 yrs old Female presents to ER via Ambulatory with complaints of rt Abdominal Pain. 12:41 Patient presents to the ED with periumbilical pain that started yesterday. Patient rt states the pain is worsened today. It is nonradiating, aching in nature. She has associated nausea vomiting, no diarrhea, constipation. Denies other acute complaints at this time. She has not take anything for her symptoms, symptoms are moderate in severity.. Historical: - Allergies: 12:33 NKDA; cm10 - Home Meds: 12:30 naproxen 500 mg Oral tablet [Active]; norelgestromin-ethin.estradiol 150-35 mcg/24 hr eh3 transdermal patch [Active]; sertraline 25 mg Oral tablet [Active]; - PMHx: 12:33 Anxiety; depressive disorder; cm10 - Immunization history:: Adult Immunizations up to date. - Social history:: Smoking status: Patient denies any tobacco usage or history of. - Family history:: not pertinent. ROS: 12:41 Constitutional: Negative for fever, chills, and weight loss, Cardiovascular: Negative rt for chest pain, palpitations, and edema, Respiratory: Negative for shortness of breath, cough, wheezing, and pleuritic chest pain, : Negative for injury, bleeding, discharge, and swelling, MS/Extremity: Negative for injury and deformity, Skin: Negative for injury, rash, and discoloration, Neuro: Negative for headache, weakness, numbness, tingling, and seizure, Psych: Negative for depression, anxiety, suicide ideation, homicidal ideation, and hallucinations, 12:41 Abdomen/GI: Positive for abdominal pain, nausea, Exam: 12:41 Constitutional: This is a well developed, well nourished patient who is awake, alert, rt and in no acute distress. Head/Face: Normocephalic, atraumatic. Chest/axilla: Normal chest wall appearance and motion. Nontender with no deformity. No lesions are appreciated. Cardiovascular: Regular rate and rhythm with a normal S1 and S2. No gallops, murmurs, or rubs. Normal PMI, no JVD. No pulse deficits. Respiratory: Lungs have equal breath sounds bilaterally, clear to auscultation and percussion. No rales, rhonchi or wheezes noted. No increased work of breathing, no retractions or nasal flaring. Abdomen/GI: Soft, non-tender, with normal bowel sounds. No distension or tympany. No guarding or rebound. No evidence of tenderness throughout. Skin: Warm, dry with normal turgor. Normal color with no rashes, no lesions, and no evidence of cellulitis. MS/ Extremity: Pulses equal, no cyanosis. Neurovascular intact. Full, normal range of motion. Neuro: Awake and alert, GCS 15, oriented to person, place, time, and situation. Cranial nerves II-XII grossly intact. Motor strength 5/5 in all extremities. Sensory grossly intact. Cerebellar exam normal. Normal gait. Psych: Awake, alert, with orientation to person, place and time. Behavior, mood, and affect are within normal limits. 12:41 Abdomen/GI: Tenderness to the center of the abdomen to the right lower quadrant, mild guarding, no rebound, distention, Vital Signs: 12:32 BP 146 / 82; Pulse 90; Resp 16; Temp 97.3(TE); Pulse Ox 99% on R/A; Weight 61.23 kg; cm10 Height 5 ft. 5 in. ; Pain 7/10; 13:30 BP 113 / 57; Pulse 85; Resp 18; Pulse Ox 99% on R/A; eh3 14:59 BP 118 / 76; Pulse 97; Resp 18; Pulse Ox 100% on R/A; eh3 15:48 BP 126 / 96; Pulse 88; Resp 16; Pulse Ox 100% on R/A; eh3 12:32 Body Mass Index 22.46 (61.23 kg, 165.1 cm) cm10 12:32 Pain Scale: Adult cm10 MDM: 12:32 Patient medically screened. rt 15:48 Differential diagnosis: Appendicitis, UTI, ovarian cyst, ovarian torsion. Data rt reviewed: vital signs, nurses notes, lab test result(s), radiologic studies. I considered the following discharge prescriptions or medication management in the emergency department Medications were administered in the Emergency Department. See MAR. Independent interpretation of the following test(s) in the Emergency Department CT Scan: My interpretation is No bowel obstruction some interpretation of CT scan images. Counseling: I had a detailed discussion with the patient and/or guardian regarding the historical points, exam findings, and any diagnostic results supporting the discharge/admit diagnosis, lab results, radiology results, the need for outpatient follow up. Response to treatment: the patient's symptoms have markedly improved after treatment. 06/13 12:37 Order name: CBC with Diff; Complete Time: 13:23 rt 06/13 12:37 Order name: CMP; Complete Time: 13:23 rt 06/13 12:37 Order name: Lipase; Complete Time: 13:23 rt 06/13 12:37 Order name: Test, Urine; Complete Time: 13:23 rt 06/13 12:37 Order name: Urinalysis w/ reflexes; Complete Time: 13:23 rt 06/13 12:37 Order name: CT Abd/Pelvis - IV Contrast Only; Complete Time: 14:06 rt 06/13 14:50 Order name: Transvaginal Study Probe; Complete Time: 15:40 EDMS 06/13 12:37 Order name: IV Saline Lock; Complete Time: 12:56 rt 06/13 12:37 Order name: Labs collected and sent; Complete Time: 12:56 rt Administered Medications: 13:00 Drug: NS 0.9% IV 1000 ml IV at 1 bolus Per protocol; 1000 mL bolus Route: IV; Rate: 1 eh3 bolus; Site: right antecubital; 15:49 Follow up: IV Status: Completed infusion; IV Intake: 500ml eh3 13:00 Drug: TORadol - Ketorolac IVP 15 mg IVP once Route: IVP; Site: right antecubital; eh3 14:00 Follow up: Response: No adverse reaction; Pain is decreased eh3 13:00 Drug: Ondansetron IVP 4 mg IVP once; over 2 minutes Route: IVP; Site: right antecubital;eh3 14:00 Follow up: Response: No adverse reaction eh3 15:30 Drug: Ketorolac IVP 15 mg IVP once Route: IVP; Site: right antecubital; eh3 15:49 Follow up: Response: No adverse reaction; Pain is decreased eh3 Disposition Summary: 06/13/23 15:44 Discharge Ordered Notes: Location: Home rt Problem: new rt Symptoms: have improved rt Condition: Stable rt Diagnosis - Other and unspecified ovarian cysts rt Followup: rt - With: Private Physician - When: 2 - 3 days - Reason: Discharge Instructions: - Discharge Summary Sheet rt - Ovarian Cyst rt Forms: - Medication Reconciliation Form rt - Thank You Letter rt - Antibiotic Education rt - Prescription Opioid Use rt - Patient Portal Instructions rt - Leadership Thank You Letter rt Prescriptions: - Toradol 10 mg tab - take 1 tablet ORAL route every 6 hours; 6 tablet; Refills: 0, Product Selection rt Permitted Signatures: Dispatcher [employer] EDErum Martell RN RN eh3 Oleg Leal MD MD rt Suni Meeks RN RN cm10 Corrections: (The following items were deleted from the chart) 14:50 14:20 Pelvis Complete+US.RAD.BRZ ordered. EDMS EDMS
--- NOTE | 2023-06-13 15:45 | ER ---
Nurse's Notes [facility] Name: Maylin Zuniga Age: 23 yrs Sex: Female : 2000 Arrival Date: 06/13/2023 Time: 12:18 Bed 19 Private MD: Diagnosis: Other and unspecified ovarian cysts Presentation: 06/13 12:32 Chief complaint: Patient states: abdominal pain to umbilical area onset last night. Pt cm10 describes the pain as pressure and rates the pain a 7 on pain scale. Pt reports nausea and vomiting. Coronavirus screen: Vaccine status: Patient reports receiving the 2nd dose of the covid vaccine. Ebola Screen: Patient denies travel to an Ebola-affected area in the 21 days before illness onset. No symptoms or risks identified at this time. Initial Sepsis Screen: Does the patient meet any 2 criteria? No. Patient's initial sepsis screen is negative. Does the patient have a suspected source of infection? No. Patient's initial sepsis screen is negative. Risk Assessment: Do you want to hurt yourself or someone else? Patient reports no desire to harm self or others. Onset of symptoms was June 13, 2023. 12:32 Method Of Arrival: Ambulatory cm10 12:32 Acuity: VINNY 3 cm10 Historical: - Allergies: 12:33 NKDA; cm10 - Home Meds: 12:30 naproxen 500 mg Oral tablet [Active]; norelgestromin-ethin.estradiol 150-35 mcg/24 hr eh3 transdermal patch [Active]; sertraline 25 mg Oral tablet [Active]; - PMHx: 12:33 Anxiety; depressive disorder; cm10 - Immunization history:: Adult Immunizations up to date. - Social history:: Smoking status: Patient denies any tobacco usage or history of. - Family history:: not pertinent. Screenin:30 [facility] ED Fall Risk Assessment (Adult) Score/Fall Risk Level 0 - 2 = Low Risk. Abuse eh3 screen: Denies threats or abuse. Denies injuries from another. Nutritional screening: No deficits noted. Tuberculosis screening: No symptoms or risk factors identified. Assessment: 12:30 General: Appears in no apparent distress. uncomfortable, Behavior is cooperative, eh3 appropriate for age, anxious. Pain: Complains of pain in abdomen. Neuro: Level of Consciousness is awake, alert, obeys commands, Oriented to person, place, time, situation. Cardiovascular: Capillary refill < 3 seconds Patient's skin is warm and dry. Respiratory: Airway is patent Respiratory effort is even, unlabored, Respiratory pattern is regular, symmetrical. GI: Abdomen is round non-distended, Bowel sounds present X 4 quads. Abd is soft X 4 quads Abdomen is tender to palpation in right lower quadrant. Derm: Skin is pink, warm \T\ dry. Musculoskeletal: Circulation, motion, and sensation intact. 13:30 Reassessment: Patient appears in no apparent distress at this time. Patient and/or eh3 family updated on plan of care and expected duration. Pain level reassessed. Patient is alert, oriented x 3, equal unlabored respirations, skin warm/dry/pink. 14:30 Reassessment: Pt in ultrasound. eh3 14:30 Reassessment: Patient and/or family updated on plan of care and expected duration. Pain eh3 level reassessed. Patient is alert, oriented x 3, equal unlabored respirations, skin warm/dry/pink. 14:59 Pain: Complains of pain in right lower quadrant Pain currently is 7 out of 10 on a pain eh3 scale. 15:48 Reassessment: Patient appears in no apparent distress at this time. Patient and/or eh3 family updated on plan of care and expected duration. Pain level reassessed. Patient is alert, oriented x 3, equal unlabored respirations, skin warm/dry/pink. Patient states symptoms have improved. Vital Signs: 12:32 BP 146 / 82; Pulse 90; Resp 16; Temp 97.3(TE); Pulse Ox 99% on R/A; Weight 61.23 kg; cm10 Height 5 ft. 5 in. ; Pain 7/10; 13:30 BP 113 / 57; Pulse 85; Resp 18; Pulse Ox 99% on R/A; eh3 14:59 BP 118 / 76; Pulse 97; Resp 18; Pulse Ox 100% on R/A; eh3 15:48 BP 126 / 96; Pulse 88; Resp 16; Pulse Ox 100% on R/A; eh3 12:32 Body Mass Index 22.46 (61.23 kg, 165.1 cm) cm10 12:32 Pain Scale: Adult cm10 ED Course: 12:19 Patient arrived in ED. mg5 12:21 Oleg Leal MD is Attending Physician. rt 12:30 Patient has correct armband on for positive identification. Bed in low position. Call eh3 light in reach. Side rails up X2. Provided Education on: use of call branham. Pulse ox on. NIBP on. 12:33 Triage completed. cm10 12:33 Arm band placed on Patient placed in an exam room. cm10 12:38 Erum Chauhan, RN is Primary Nurse. eh3 12:50 Inserted saline lock: 22 gauge in right antecubital area, using aseptic technique. eh3 Blood collected. 13:25 CT Abd/Pelvis - IV Contrast Only In Process Unspecified. EDMS 14:50 Transvaginal Study Probe In Process Unspecified. EDMS 15:49 No provider procedures requiring assistance completed. IV discontinued, intact, eh3 bleeding controlled, No redness/swelling at site. Pressure dressing applied. Administered Medications: 13:00 Drug: NS 0.9% IV 1000 ml IV at 1 bolus Per protocol; 1000 mL bolus Route: IV; Rate: 1 eh3 bolus; Site: right antecubital; 15:49 Follow up: IV Status: Completed infusion; IV Intake: 500ml eh3 13:00 Drug: TORadol - Ketorolac IVP 15 mg IVP once Route: IVP; Site: right antecubital; eh3 14:00 Follow up: Response: No adverse reaction; Pain is decreased eh3 13:00 Drug: Ondansetron IVP 4 mg IVP once; over 2 minutes Route: IVP; Site: right antecubital;eh3 14:00 Follow up: Response: No adverse reaction eh3 15:30 Drug: Ketorolac IVP 15 mg IVP once Route: IVP; Site: right antecubital; eh3 15:49 Follow up: Response: No adverse reaction; Pain is decreased eh3 Medication: 15:49 VIS not applicable for this client. eh3 Intake: 15:49 IV: 500ml; Total: 500ml. eh3 Outcome: 15:44 Discharge ordered by . rt 16:04 Patient left the ED. eh3 Signatures: Dispatcher [employer] EDMS Erum Chauhan, BILLIE RN 3 Oleg Leal MD MD rt Suni Meeks RN RN cm10 Soledad Roberts mg5
[2023-06-13 16:10] VITALS: TEMP 97.3
[2023-06-13 16:12] VITALS: O2SAT 100
[2023-06-13 16:13] VITALS: BP 126/96
== END 2023-06-13 16:04 | disposition home or self-care (01) ==
LOC: ER 12:18
DX: N83.299 Other ovarian cyst, unspecified side (principal)
CPT/HCPCS: 36415; 74177; 76830; 80053; 81001; 81025; 83690; 85025; 96361; 96374; 96375; 99284; J2405; J7030; Q9967

== ENCOUNTER → 2023-08-01 | Emergency (ER) | payer OTHER ==
[~2023-08-01] MED LIST: KETOROLAC 30 MG/ML INJ ONE; NA CHLORIDE 0.9% 1,000 ML ONE; ONDANSETRON 4 MG/2 ML VIAL ONE
--- OUTSIDE RECORDS SUMMARY | 2023-08-01 11:26 | XMS REPORT | Continuity of Care Document ---
Author Name Unknown Address [address] [place] [address] [facility] thconnect Address [address] [place] [address] Care Team Providers Care Lace Tearing Supervisor Name Role Phone Jacob Joseph Attending Clinician Raju_P Attending Clinician Unavailable Raju_P Admitting Clinician Unavailable Encounters Start Date/Time End Date/Time Encounter Type Admission Type Attending Clinicians Care Facility Care Department Encounter ID Source 2020-12-30 09:29:12 2020-12-30 10:10:09 Office Visit Jacob Perez [facility] [facility] [id number] 2019-11-03 05:13:00 2019-11-03 05:13:00 Outpatient Raju_P [facility] [id number] [facility]
[2023-08-01 13:37] LABS: Specific Gravity 1.028 (1.005-1.030)
[2023-08-01 13:38] LABS: Absolute Lymphocytes (CBC) 0.5 K/uL (0.7-4.9); Hematocrit 41.5 % (36.0-45.0); MCV 94.1 fL (80-100); Platelets 195 thou/uL (152-406); RBC Red Blood Cell Count 4.41 M/uL (3.86-4.86)
[2023-08-01 13:47] LABS: Specific Gravity 1.028 (1.005-1.030); Urine Bacteria None Seen /HPF (<20); Urine Bilirubin NEGATIVE (Negative); Urine Blood Negative (Negative); Urine Clarity Turbid (Clear); Urine Color Yellow (Yellow); Urine Glucose NEGATIVE (Negative); Urine Mucus 2+ /HPF (None Seen); Urine Protein TRACE (Negative); Urine RBC <5 /HPF (None Seen); Urine Urobilinogen Normal (Normal)
[2023-08-01 13:51] LABS: Albumin 3.8 g/dL (3.4-5.0); Bilirubin Total 1.1 mg/dL (0.2-1.0); Potassium 3.9 mEq/L (3.5-5.1); Protein, Total 7.3 g/dL (6.4-8.2)
[2023-08-01 14:53] LABS: Blood Morphology Comment NOT SEEN (NOT SEEN); Platelet Estimate ADEQ; White Blood Cell Scan OK (OK)
--- NOTE | 2023-08-01 15:14 | RAD REPORT ---
EXAM DESCRIPTION: CT - Abdomen Pelvis W Contrast - 08/01/2023 2:02 pm CLINICAL HISTORY: ABD PAIN COMPARISON: Abdomen Pelvis W Contrast dated 06/13/2023; Abdomen Pelvis W Contrast dated TECHNIQUE: Thin cut axial CT imaging of the abdomen and pelvis was performed following intravenous a dministration of 100 mL Isovue 300. Multiplanar reformats were generated and reviewed. All CT scans are performed using dose optimization technique as appropriate and may include automated exposure control or mA/KV adjustment according to patient size. FINDINGS: No suspicious findings in the lung bases. The liver, spleen, adrenal glands, and pancreas show no suspicious findings. Gallbladder and biliary tree are also without suspicious finding. Symmetric renal function is seen with no hydronephrosis or suspicious renal mass. No radiopaque calcu li. Subcentimeter left renal cortical hypoattenuating lesions, suggestive of cysts, not well characte rized. No dilated bowel loops or bowel wall thickening. No free air, free fluid or inflammatory stranding. N o hernia, mass or bulky lymphadenopathy. Dominant right ovarian 2.5 x 2.1 cm cyst or follicle, likely physiologic. Appendix is unremarkable. The urinary bladder is without significant finding. No suspicious bony findings. IMPRESSION: No acute intra-abdominal process. Incidental findings as above.
--- NOTE | 2023-08-01 15:40 | ER ---
Nurse's Notes [facility] Name: Maylin Zuniga Age: 23 yrs Sex: Female : 2000 Arrival Date: 08/01/2023 Time: 11:23 Bed 9 Private MD: Diagnosis: Other ovarian cysts Presentation: 08/01 11:37 Chief complaint: Patient states: Abdominal pain with N/V since 3 AM. Coronavirus ll1 screen: Client denies travel out of the [place] in the last 14 days. At this time, the client does not indicate any symptoms associated with coronavirus-19. Ebola Screen: Patient denies travel to an Ebola-affected area in the 21 days before illness onset. Initial Sepsis Screen: Does the patient meet any 2 criteria? No. Patient's initial sepsis screen is negative. Does the patient have a suspected source of infection? Yes: Acute abdominal pain. Risk Assessment: Do you want to hurt yourself or someone else? Patient reports no desire to harm self or others. Onset of symptoms was August 01, 2023. 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 - Social history:: Smoking status: Reported history of juuling and/or vaping. - Family history:: not pertinent, pertinent for. Screenin:00 [facility] ED Fall Risk Assessment (Adult) History of falling in the last 3 months, me1 including since admission No falls in past 3 months (0 pts) Confusion or Disorientation No (0 pts) Intoxicated or Sedated No (0 pts) Impaired Gait No (0 pts) Mobility Assist Device Used No (0 pt) Altered Elimination No (0 pt) Score/Fall Risk Level 0 - 2 = Low Risk Maintained a safe environment, Provided non-skid footwear, Hourly rounding (assess needs \T\ fall precautionary measures) done. Abuse screen: Denies threats or abuse. Nutritional screening: No deficits noted. Nutritional screening: No deficits noted. Tuberculosis screening: No symptoms or risk factors identified. Assessment: 13:00 Pain: Complains of pain in suprapubic area, right lower quadrant and left lower me1 quadrant Pain does not radiate. Pain currently is 7 out of 10 on a pain scale. Quality of pain is described as crampy, sharp, Pain began suddenly, Is continuous. Neuro: Level of Consciousness is awake, alert, obeys commands, Oriented to person, place, time, situation, Appropriate for age. Cardiovascular: Capillary refill < 3 seconds Patient's skin is warm and dry. Respiratory: Airway is patent Respiratory effort is even, unlabored, Respiratory pattern is regular, symmetrical. GI: Abdomen is flat, Bowel sounds present X 4 quads. Abd is soft X 4 quads Reports diarrhea, nausea, vomiting, since 3 am. : Denies burning with urination. 14:10 General: Appears uncomfortable, well groomed, well developed, well nourished, Behavior me1 is calm, cooperative, appropriate for age, Reports abd pain with n/v/d since 3 am. Vital Signs: 11:37 BP 105 / 60; Pulse 92; Resp 16; Temp 98.2; Pulse Ox 100% ; Weight 62.14 kg; Height 5 ll1 ft. 4 in. ; Pain 7/10; 13:00 BP 115 / 69; Pulse 92; Resp 16; Pulse Ox 100% on R/A; me1 16:11 Pulse 86; Resp 17; Temp 98.7; Pulse Ox 100% ; ap3 11:37 Body Mass Index 23.52 (62.14 kg, 162.56 cm) ll1 11:37 Pain Scale: Adult ll1 ED Course: 11:25 Patient arrived in ED. mr 11:36 Arm band placed on. ll1 11:39 Triage completed. ll1 11:41 Oleg Leal MD is Attending Physician. rt 13:00 Patient has correct armband on for positive identification. Bed in low position. Call me1 light in reach. Side rails up X2. Provided Education on: POC. Verbalized understanding. . 13:00 No provider procedures requiring assistance completed. me1 13:10 Sayra Vines, BILLIE is Primary Nurse. me1 13:28 Inserted saline lock: 22 gauge in right antecubital area, using aseptic technique. me1 13:28 CBC with Diff Sent. me1 13:28 CMP Sent. me1 13:28 Lipase Sent. me1 13:28 Test, Urine Sent. me1 13:28 Urinalysis w/ reflexes Sent. me1 14:04 CT Abd/Pelvis - IV Contrast Only In Process Unspecified. EDMS 16:11 IV discontinued, intact, bleeding controlled, No redness/swelling at site. Pressure ap3 dressing applied. Administered Medications: 13:36 Drug: NS 0.9% IV 1000 ml IV at 1 bolus Per protocol; 1000 mL bolus Route: IV; Rate: 1 me1 bolus; Site: right antecubital; 13:37 Drug: TORadol - Ketorolac IVP 15 mg IVP once Route: IVP; Site: right antecubital; me1 13:37 Drug: Ondansetron IVP 4 mg IVP once; over 2 minutes Route: IVP; Site: right antecubital;me1 Medication: 13:00 VIS not applicable for this client. me1 Outcome: 15:40 Discharge ordered by . rt 16:11 Discharged to home ambulatory, with friend, ap3 16:11 Condition: good 16:11 Discharge instructions given to patient, Instructed on discharge instructions, follow up and referral plans. medication usage, Demonstrated understanding of instructions, follow-up care, medications, Prescriptions given X 1, 16:12 Patient left the ED. ap3 Signatures: Dispatcher [employer] [facility] Franco Caren, Reg Reg mr Alisia Chaudhari RN RN ap3 Fang Jauregui RN RN ll1 Oleg Leal MD MD rt Sayra Vines RN RN me1
--- NOTE | 2023-08-01 15:41 | EDPHYS ---
Physician Documentation [facility] Name: Maylin Zuniga Age: 23 yrs Sex: Female : 2000 Arrival Date: 08/01/2023 Time: 11:23 Bed 9 Private MD: ED Physician Oleg Leal HPI: 08/01 14:57 This 23 yrs old Female presents to ER via Ambulatory with complaints of rt Abdominal Pain, Vomiting. 14:57 Patient presents to the ED with lower abdominal pain, nausea, vomiting, diarrhea rt starting about 3 AM this morning. States that the symptoms are similar to when she had a prior ruptured ovarian cyst. She denies other acute complaints at this time. Pain is aching nature, nonradiating, moderate in severity, no other aggravating alleviating factors.. 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 - Social history:: Smoking status: Reported history of juuling and/or vaping. - Family history:: not pertinent, pertinent for. ROS: 14:57 Constitutional: Negative for fever, chills, and weight loss, Cardiovascular: Negative rt for chest pain, palpitations, and edema, Respiratory: Negative for shortness of breath, cough, wheezing, and pleuritic chest pain, MS/Extremity: Negative for injury and deformity, Skin: Negative for injury, rash, and discoloration, Neuro: Negative for headache, weakness, numbness, tingling, and seizure, 14:57 Abdomen/GI: Positive for abdominal pain, nausea, vomiting, and diarrhea, Exam: 14:57 Constitutional: This is a well developed, well nourished patient who is awake, alert, rt and in no acute distress. Head/Face: Normocephalic, atraumatic. Chest/axilla: Normal chest wall appearance and motion. Nontender with no deformity. No lesions are appreciated. Cardiovascular: Regular rate and rhythm with a normal S1 and S2. No gallops, murmurs, or rubs. Normal PMI, no JVD. No pulse deficits. Respiratory: Lungs have equal breath sounds bilaterally, clear to auscultation and percussion. No rales, rhonchi or wheezes noted. No increased work of breathing, no retractions or nasal flaring. Skin: Warm, dry with normal turgor. Normal color with no rashes, no lesions, and no evidence of cellulitis. MS/ Extremity: Pulses equal, no cyanosis. Neurovascular intact. Full, normal range of motion. Neuro: Awake and alert, GCS 15, oriented to person, place, time, and situation. Cranial nerves II-XII grossly intact. Motor strength 5/5 in all extremities. Sensory grossly intact. Cerebellar exam normal. Normal gait. Psych: Awake, alert, with orientation to person, place and time. Behavior, mood, and affect are within normal limits. 14:57 Abdomen/GI: Mild suprapubic tenderness without rebound, guarding, distention, Vital Signs: 11:37 BP 105 / 60; Pulse 92; Resp 16; Temp 98.2; Pulse Ox 100% ; Weight 62.14 kg; Height 5 ll1 ft. 4 in. ; Pain 7/10; 13:00 BP 115 / 69; Pulse 92; Resp 16; Pulse Ox 100% on R/A; me1 16:11 Pulse 86; Resp 17; Temp 98.7; Pulse Ox 100% ; ap3 11:37 Body Mass Index 23.52 (62.14 kg, 162.56 cm) ll1 11:37 Pain Scale: Adult ll1 MDM: 11:41 Patient medically screened. rt 16:48 Differential diagnosis: Nonspecific abd pain, Appendicitis, ovarian cyst. Data rt reviewed: vital signs, nurses notes, lab test result(s), radiologic studies. I considered the following discharge prescriptions or medication management in the emergency department Medications were administered in the Emergency Department. See MAR. Independent interpretation of the following test(s) in the Emergency Department CT Scan: My interpretation is No bowel obstruction seen on interpretation of CT scan images. Test considered but Not performed: Ultrasound Low suspicion for ovarian torsion, ultrasound not indicated. Counseling: I had a detailed discussion with the patient and/or guardian regarding the historical points, exam findings, and any diagnostic results supporting the discharge/admit diagnosis, lab results, radiology results, the need for outpatient follow up, to return to the emergency department if symptoms worsen or persist or if there are any questions or concerns that arise at home. Response to treatment: the patient's symptoms have markedly improved after treatment. 08/01 11:44 Order name: CBC with Diff; Complete Time: 14:54 rt 08/01 11:44 Order name: CMP; Complete Time: 13:54 rt 08/01 11:44 Order name: Lipase; Complete Time: 13:54 rt 08/01 11:44 Order name: Test, Urine; Complete Time: 13:54 rt 08/01 11:44 Order name: Urinalysis w/ reflexes; Complete Time: 13:54 rt 08/01 14:53 Order name: CBC Smear Scan; Complete Time: 14:54 EDMS 08/01 11:44 Order name: CT Abd/Pelvis - IV Contrast Only; Complete Time: 15:19 rt 08/01 11:44 Order name: IV Saline Lock; Complete Time: 13:28 rt 08/01 11:44 Order name: Labs collected and sent; Complete Time: 13:28 rt Administered Medications: 13:36 Drug: NS 0.9% IV 1000 ml IV at 1 bolus Per protocol; 1000 mL bolus Route: IV; Rate: 1 me1 bolus; Site: right antecubital; 13:37 Drug: TORadol - Ketorolac IVP 15 mg IVP once Route: IVP; Site: right antecubital; me1 13:37 Drug: Ondansetron IVP 4 mg IVP once; over 2 minutes Route: IVP; Site: right antecubital;me1 Disposition Summary: 08/01/23 15:40 Discharge Ordered Notes: Location: Home rt Problem: new rt Symptoms: have improved rt Condition: Stable rt Diagnosis - Other ovarian cysts rt Followup: rt - With: Private Physician - When: 2 - 3 days - Reason: Discharge Instructions: - Discharge Summary Sheet rt - Ovarian Cyst rt Forms: - Medication Reconciliation Form rt - Thank You Letter rt - Antibiotic Education rt - Prescription Opioid Use rt - Patient Portal Instructions rt - Leadership Thank You Letter rt Prescriptions: - ketorolac 10 mg Oral tablet - take 1 tablet ORAL route every 6 hours for 5 days as needed for pain; 9 tablet; rt Refills: 0, Product Selection Permitted Signatures: Dispatcher [employer] Fang Taylor RN RN ll1 Oleg Leal MD MD rt Eddleman, Sayra, RN RN me1
[2023-08-01 19:18] VITALS: BP 115/69; TEMP 98.7; O2SAT 100
== END ==
LOC: ER 11:23
DX: N83.299 Other ovarian cyst, unspecified side (principal)
CPT/HCPCS: 85025; 81001; 36415; 81025; 83690; 80053; 74177; 96375; 96374; 99284; Q9967; J2405; J7030

== ENCOUNTER 2023-10-21 23:32 | Emergency (ER) | payer OTHER ==
--- OUTSIDE RECORDS SUMMARY | 2023-10-21 23:39 | XMS REPORT | Continuity of Care Document ---
Author Name Unknown Address [address] [facility] [address] [facility] Address [address] [facility] [address] [place] [address] Care Team Providers Care Commercial Real Estate Manager Name Role Phone Leslie Diane Primary Care Physicia n SYDNEY LUBIN Attending Clinician Unavailable BRUNA ARRINGTON Attending Clinician Unavailable BRUNA ARRINGTON Attending Clinician Unavailable Doctor Unassigned, [place] Attending Clinician U navailable Pgy2 Attending Clinician Unavailable Sydney Lubin MD Attending Clinician [phone] Gretchen Cao Attending Clinician [phone] ELIZA BOWERS Attending Clinician Unavailable RAHEL GRANT Attending Clinician Unavailable Rahel Aguilar Attending Clinician [phone] Eliza Heller Attending Clinician [phone], [facility] Attending Clinician Unavailable LESLIE CASTELLANOS Attending Clinician Unavail able Leslie Diane Attending Clinician + YAW LEIVA Attending Clinician Unavailable Yaw Leiva DO Attending Clinician [phone] Nurse, [facility] Attending Clinician Un available Unknown, Attending Attending Clinician Unavailab le UNKNOWN, ATTENDING Attending Clinician Unavailab BAILEE Vivar Attending Clinician Unavailable Carla Franklin CNM Attending Clinician [phone] CARLA FRANKLIN Attending Clinician Unavaila ble [facility], [facility]ending [facility]ician Erica vailable ROSALES CHAPIN Attending Clinician UnavailROSALES [place] Attending Clinician UnavailROSALES Helm Attending Clinician Unavailradha Barrientos SPA SUPERVISOR, Jacob Love Attending Clinician [phone] JACOB BARRIENTOS Attending Clinician Unavailab le Visit, [facility] Nurse Attending Clinician Unava ilable ALIVIA ERNANDEZ Attending Clinician Unavaila rupa Ernandez SPA SUPERVISOR, Alivia Liriano Attending Clinician [phone] MILVIA MENDIOLA Attending Clinician Unavailradha Jones RN, Rayne Godoy Attending Clinician Unavailab NI Mckeon Attending Clinician Unavailable Joel Matt DO Attending Clinician [phone] Alysia SPA SUPERVISORElena Fuentes Attending Clinician [phone] Provider, [facility] Attending Clinician Un available ELENA HATFIELD Attending Clinician Unavailable Fletcher Ramesh MD Attending Clinician [phone] Frank WISE, Ethel Attending Clinician Erica vailable Radha_Alfredo Attending Clinician Unavailable Alvin Nobles Attending Clinician [phone] YAW LEIVA Admitting Clinician Unavailable Radha_Alfredo Admitting Clinician Unavailable Payers Payer Name Policy Type Policy Number Effective Date Expirati on Date Source MEDICAID GENERIC [id number] 2023 00:00:00 MEDICAID [facility] [id number] 2023 00:00:00 [facility] [id number] 2020 00:00:00 [facility] [id number] 2019 00:00:00 Problems Condition Name Condition Details Condition Category Status Onset Date Resolution Date Last Treatment Date Treating Clinician Comments Source Chlamydia trachomati s infection of lower genitourin jeremy sites Chlamydia trachomati s infection of lower genitourin jeremy sites Disease Active 2-13 00:00: 00 [facility] Need for prophylact ic vaccinatio n and inoculatio n against influenza Need for prophylact ic vaccinatio n and inoculatio n against influenza Disease Active 3-24 00:00: 00 [facility] Feeling sad Feeling sad Disease Active 5 00:00: 00 [facility] Encounter for other general counseling or advice on contracept ion Encounter for other general counseling or advice on contracept ion Disease Active 5- 00:00: 00 [facility] Absence of menstruati on Absence of menstruati on Disease Active 11-02 00:00: 00 [facility] Breast tenderness in female Breast tenderness in female Disease Active 11-02 00:00: 00 [facility] Class 1 obesity due to excess calories with serious comorbidit y and body mass index (BMI) of 34.0 to 34.9 in adult Class 1 obesity due to excess calories with serious comorbidit y and body mass index (BMI) of 34.0 to 34.9 in adult Disease Active 11-02 00:00: 00 [facility] BMI 34.0-34.9, adult BMI 34.0-34.9, adult Disease Active 24 00:00: 00 [facility] Elevated blood pressure reading without diagnosis of hypertensi on Elevated blood pressure reading without diagnosis of hypertensi on Disease Active 2-21 00:00: 00 [facility] Other depression Other depression Disease Active - 00:00: 00 [facility] Nexplanon removal Nexplanon removal Disease Active - 00:00: 00 [facility] Screening examinatio n for STD (sexually transmitte d disease) Screening examinatio n for STD (sexually transmitte d disease) Disease Active - 00:00: 00 [facility] BMI 27.0-27.9, adult BMI 27.0-27.9, adult Disease Active 2018-08 0-16 00:00: 00 [facility] BMI 29.0-29.9, adult BMI 29.0-29.9, adult Disease Active 2018-08 016 00:00: 00 [facility] HPV vaccine counseling HPV vaccine counseling Disease Active 2018-08 016 00:00: 00 [facility] Over weight Over weight Disease Active 2018-08 00:00: 00 [facility] Lump or mass in breast Lump or mass in breast Disease Active 11-22 00:00: 00 [facility] Allergies, Adverse Reactions, Alerts Allergy Name Allergy Type Status Severity Reaction(s) Onset Date Inactive Date Treating Clinician Comments Source NO KNOWN ALLERGIE S Drug Class Active [facility] Social History Social Habit Start Date Stop Date Quantity Comments Source Gender identity [facility] intake 2023-08-20 00:00:00 2023-08-20 00:00:00 Current drinker of alcohol (finding) [facility] History of Social function 2023-02-14 00:00:00 2023-02-14 00:00:00 [facility] Exposure to SARS-CoV-2 (event) 2022-12-24 00:00:00 2023-01-03 09:29:00 Not sure [facility] History SDOH Alcohol Frequency 2023-01-01 00:00:00 2023-01-01 00:00:00 1 [facility] History SDOH Alcohol Std Drinks 2023-01-01 00:00:00 2023-01-01 00:00:00 0 [facility] History SDOH Alcohol Binge 2023-01-01 00:00:00 2023-01-01 00:00:00 1 [facility] History SDOH Social Connections Phone 2023-01-01 00:00:00 2023-01-01 00:00:00 4 [facility] History SDOH Social Connections Get Together 2023-01-01 00:00:00 2023-01-01 00:00:00 2 [facility] History SDOH Social Connections Rastafarian 2023-01-01 00:00:00 2023-01-01 00:00:00 3 [facility] History SDOH Social Connections Membership 2023-01-01 00:00:00 2023-01-01 00:00:00 2 [facility] History SDOH Social Connections Meetings 2023-01-01 00:00:00 2023-01-01 00:00:00 1 [facility] History SDOH Social Connections Living 2023-01-01 00:00:00 2023-01-01 00:00:00 7 [facility] History SDOH Physical Activity DPW 2023-01-01 00:00:00 2023-01-01 00:00:00 1 [facility] History SDOH Physical Activity MPS 2023-01-01 00:00:00 2023-01-01 00:00:00 3 [facility] History SDOH Stress 2023-01-01 00:00:00 2023-01-01 00:00:00 5 [facility] History SDOH Financial 2023-01-01 00:00:00 2023-01-01 00:00:00 4 [facility] History SDOH Food Worry 2023-01-01 00:00:00 2023-01-01 00:00:00 1 [facility] History SDOH Food Scarcity 2023-01-01 00:00:00 2023-01-01 00:00:00 2 [facility] History SDOH Transport Med 2023-01-01 00:00:00 2023-01-01 00:00:00 2 [facility] History SDOH Transport Non-Med 2023-01-01 00:00:00 2023-01-01 00:00:00 2 [facility] History SDOH Housing Unable to Pay 2023-01-01 00:00:00 2023-01-01 00:00:00 2 [facility] History SDOH Housing Places Lived 2023-01-01 00:00:00 2023-01-01 00:00:00 1 [facility] History SDOH Housing Homeless Last Year 2023-01-01 00:00:00 2023-01-01 00:00:00 2 [facility] Tobacco use and exposure 2022-12-27 00:00:00 2022-12-27 00:00:00 Smokeless tobacco non-user [facility] Alcohol Comment 2021-11-02 00:00:00 2021-11-02 00:00:00 social [facility] Sex Assigned At 2001 00:00:00 2000 00:00:00 [facility] Smoking Status Start Date Stop Date Source Never smoked tobacco [facility] Medications Ordered Medication Name Filled Medication Name Start Date Stop Date Current Medication? Ordering Clinician Indication Dosage Frequency Signature (SIG) Comments Components Source ondansetron 4 mg tablet 08-20 00:00: 00 Yes [id number] 4mg Take 1 tablet by mouth every 8 (eight) hours as needed for Nausea and Vomiting (N/V). [facility] ondansetron 4 mg tablet 08-20 00:00: 00 Yes [id number] 4mg Take 1 tablet by mouth every 8 (eight) hours as needed for Nausea and Vomiting (N/V). [facility] ondansetron 4 mg tablet 0 08-20 00:00: 00 Yes [id number] 4mg Take 1 tablet by mouth every 8 (eight) hours as needed for Nausea and Vomiting (N/V). [facility] ondansetron 4 mg tablet 0 08-20 00:00: 00 Yes [id number] 4mg Take 1 tablet by mouth every 8 (eight) hours as needed for Nausea and Vomiting (N/V). [facility] omeprazole 40 mg capsule 2022-0 04-18 00:00: 00 Yes [id number] 40mg Take 1 capsule by mouth in the morning. [facility] omeprazole 40 mg capsule 2022-0 04-18 00:00: 00 Yes [id number] 40mg Take 1 capsule by mouth in the morning. [facility] omeprazole 40 mg capsule 2022-0 04-18 00:00: 00 Yes [id number] 40mg Take 1 capsule by mouth in the morning. [facility] omeprazole 40 mg capsule 2022-0 04-18 00:00: 00 Yes [id number] 40mg Take 1 capsule by mouth in the morning. [facility] omeprazole 40 mg capsule 3-0 9-07 00:00: 00 Yes [id number] 40mg Take 1 capsule by mouth in the morning. [facility] omeprazole 40 mg capsule 2022-0 04-18 00:00: 00 Yes [id number] 40mg Take 1 capsule by mouth in the morning. [facility] omeprazole 40 mg capsule 2022-0 04-18 00:00: 00 Yes [id number] 40mg Take 1 capsule by mouth in the morning. [facility] omeprazole 40 mg capsule 3-0 04-18 00:00: 00 Yes [id number] 40mg Take 1 capsule by mouth in the morning. [facility] ondansetron 8 mg tablet 2022-0 8-24 00:00: 00 Yes [id number] 8mg Take 1 tablet by mouth every 8 (eight) hours as needed for Nausea and Vomiting (N/V). [facility] ondansetron 8 mg tablet 3-0 8-24 00:00: 00 Yes [id number] 8mg Take 1 tablet by mouth every 8 (eight) hours as needed for Nausea and Vomiting (N/V). [facility] ondansetron 8 mg tablet 3-0 8-24 00:00: 00 Yes [id number] 8mg Take 1 tablet by mouth every 8 (eight) hours as needed for Nausea and Vomiting (N/V). [facility] ondansetron 8 mg tablet 3-0 8-24 00:00: 00 Yes [id number] 8mg Take 1 tablet by mouth every 8 (eight) hours as needed for Nausea and Vomiting (N/V). [facility] ondansetron 8 mg tablet 3-0 8-24 00:00: 00 Yes [id number] 8mg Take 1 tablet by mouth every 8 (eight) hours as needed for Nausea and Vomiting (N/V). [facility] ondansetron 8 mg tablet 3-0 8-24 00:00: 00 Yes [id number] 8mg Take 1 tablet by mouth every 8 (eight) hours as needed for Nausea and Vomiting (N/V). [facility] ondansetron 8 mg tablet 2022-0 8-24 00:00: 00 Yes [id number] 8mg Take 1 tablet by mouth every 8 (eight) hours as needed for Nausea and Vomiting (N/V). [facility] ondansetron 8 mg tablet 2022-0 8-24 00:00: 00 Yes [id number] 8mg Take 1 tablet by mouth every 8 (eight) hours as needed for Nausea and Vomiting (N/V). [facility] ondansetron 8 mg tablet 2022-0 8-24 00:00: 00 Yes [id number] 8mg Take 1 tablet by mouth every 8 (eight) hours as needed for Nausea and Vomiting (N/V). [facility] omeprazole 40 mg capsule 2022-0 8-21 00:00: 00 Yes [id number] 40mg Take 1 capsule by mouth in the morning. [facility] omeprazole 40 mg capsule 2022-0 8-21 00:00: 00 Yes [id number] 40mg Take 1 capsule by mouth in the morning. [facility] omeprazole 40 mg capsule 2022-0 8-21 00:00: 00 Yes [id number] 40mg Take 1 capsule by mouth in the morning. [facility] omeprazole 40 mg capsule 2022-0 8-21 00:00: 00 Yes [id number] 40mg Take 1 capsule by mouth in the morning. [facility] omeprazole 40 mg capsule 3-0 8-21 00:00: 00 Yes [id number] 40mg Take 1 capsule by mouth in the morning. [facility] omeprazole 40 mg capsule 3-0 8-21 00:00: 00 04-18 00:00 :00 No [id number] 40mg Take 1 capsule by mouth in the morning. [facility] omeprazole 40 mg capsule 3-0 8-21 00:00: 00 04-18 00:00 :00 No [id number] 40mg Take 1 capsule by mouth in the morning. [facility] VENLAFAXINE XR 37.5 mg 24 hr capsule 2023-0 8- 00:00: 00 Yes [id number] 37.5mg TAKE 1 CAPSULE BY MOUTH DAILY WITH BREAKFAST. [facility] VENLAFAXINE XR 37.5 mg 24 hr capsule 3-0 8- 00:00: 00 Yes [id number] 37.5mg TAKE 1 CAPSULE BY MOUTH DAILY WITH BREAKFAST. [facility] VENLAFAXINE XR 37.5 mg 24 hr capsule 3-0 8- 00:00: 00 Yes [id number] 37.5mg TAKE 1 CAPSULE BY MOUTH DAILY WITH BREAKFAST. [facility] VENLAFAXINE XR 37.5 mg 24 hr capsule 3-0 8- 00:00: 00 Yes [id number] 37.5mg TAKE 1 CAPSULE BY MOUTH DAILY WITH BREAKFAST. [facility] VENLAFAXINE XR 37.5 mg 24 hr capsule 3-0 8- 00:00: 00 Yes [id number] 37.5mg TAKE 1 CAPSULE BY MOUTH DAILY WITH BREAKFAST. [facility] VENLAFAXINE XR 37.5 mg 24 hr capsule 3-0 8- 00:00: 00 Yes [id number] 37.5mg TAKE 1 CAPSULE BY MOUTH DAILY WITH BREAKFAST. [facility] VENLAFAXINE XR 37.5 mg 24 hr capsule 3-0 8- 00:00: 00 Yes [id number] 37.5mg TAKE 1 CAPSULE BY MOUTH DAILY WITH BREAKFAST. [facility] VENLAFAXINE XR 37.5 mg 24 hr capsule 3-0 8- 00:00: 00 Yes [id number] 37.5mg TAKE 1 CAPSULE BY MOUTH DAILY WITH BREAKFAST. [facility] VENLAFAXINE XR 37.5 mg 24 hr capsule 3-0 8- 00:00: 00 Yes [id number] 37.5mg TAKE 1 CAPSULE BY MOUTH DAILY WITH BREAKFAST. [facility] VENLAFAXINE XR 37.5 mg 24 hr capsule 3-0 8-02 00:00: 00 Yes [id number] 37.5mg TAKE 1 CAPSULE BY MOUTH DAILY WITH BREAKFAST. [facility] VENLAFAXINE XR 37.5 mg 24 hr capsule 3-0 8-02 00:00: 00 Yes [id number] 37.5mg TAKE 1 CAPSULE BY MOUTH DAILY WITH BREAKFAST. [facility] VENLAFAXINE XR 37.5 mg 24 hr capsule 2022-0 8- 00:00: 00 Yes [id number] 37.5mg TAKE 1 CAPSULE BY MOUTH DAILY WITH BREAKFAST. [facility] VENLAFAXINE XR 37.5 mg 24 hr capsule 3-0 8- 00:00: 00 Yes [id number] 37.5mg TAKE 1 CAPSULE BY MOUTH DAILY WITH BREAKFAST. [facility] VENLAFAXINE XR 37.5 mg 24 hr capsule 2022-0 8- 00:00: 00 Yes [id number] 37.5mg TAKE 1 CAPSULE BY MOUTH DAILY WITH BREAKFAST. [facility] venlafaxine XR 37.5 mg 24 hr capsule 2022-0 7-06 00:00: 00 Yes [id number] 37.5mg Take 1 capsule by mouth daily with breakfast. [facility] venlafaxine XR 37.5 mg 24 hr capsule 2022-0 7-06 00:00: 00 Yes [id number] 37.5mg Take 1 capsule by mouth daily with breakfast. [facility] venlafaxine XR 37.5 mg 24 hr capsule 2022-0 7-06 00:00: 00 03-13 00:00 :00 No [id number] 37.5mg Take 1 capsule by mouth daily with breakfast. [facility] SERTraline 25 mg tablet 3-0 5-25 00:00: 00 Yes [id number] 25mg Take 1 tablet by mouth in the morning. [facility] SERTraline 25 mg tablet 3-0 5-25 00:00: 00 Yes [id number] 25mg Take 1 tablet by mouth in the morning. [facility] SERTraline 25 mg tablet 3-0 5-25 00:00: 00 Yes [id number] 25mg Take 1 tablet by mouth in the morning. [facility] SERTraline 25 mg tablet 3-0 5-25 00:00: 00 Yes [id number] 25mg Take 1 tablet by mouth in the morning. [facility] SERTraline 25 mg tablet 2023-0 5-25 00:00: 00 Yes [id number] 25mg Take 1 tablet by mouth in the morning. [facility] SERTraline 25 mg tablet 2022-0 5-25 00:00: 00 Yes [id number] 25mg Take 1 tablet by mouth in the morning. [facility] SERTraline 25 mg tablet 2022-0 5-25 00:00: 00 Yes [id number] 25mg Take 1 tablet by mouth in the morning. [facility] SERTraline 25 mg tablet 0 5-25 00:00: 00 02-14 00:00 :00 No [id number] 25mg Take 1 tablet by mouth in the morning. [facility] SERTraline 25 mg tablet 2022-0 5-25 00:00: 00 02-14 00:00 :00 No [id number] 25mg Take 1 tablet by mouth in the morning. [facility] naproxen (NAPROSYN) 500 mg tablet 0 525 00:00: 00 01-14 04:59 :00 No [id number] 500mg Take 1 tablet by mouth in the morning and 1 tablet in the evening. Take with meals. Do all this for 10 days. [facility] naproxen (NAPROSYN) 500 mg tablet 0 5-25 00:00: 00 01-14 04:59 :00 No [id number] 500mg Take 1 tablet by mouth in the morning and 1 tablet in the evening. Take with meals. Do all this for 10 days. [facility] naproxen (NAPROSYN) 500 mg tablet 2022-0 5-25 00:00: 00 01-14 04:59 :00 No [id number] 500mg Take 1 tablet by mouth in the morning and 1 tablet in the evening. Take with meals. Do all this for 10 days. [facility] naproxen (NAPROSYN) 500 mg tablet 2022-0 5-25 00:00: 00 01-14 04:59 :00 No [id number] 500mg Take 1 tablet by mouth in the morning and 1 tablet in the evening. Take with meals. Do all this for 10 days. [facility] naproxen (NAPROSYN) 500 mg tablet 01-03 00:00: 00 01-14 04:59 :00 No [id number] 500mg Take 1 tablet by mouth in the morning and 1 tablet in the evening. Take with meals. Do all this for 10 days. [facility] naproxen (NAPROSYN) 500 mg tablet 01-03 00:00: 00 01-14 04:59 :00 No [id number] 500mg Take 1 tablet by mouth in the morning and 1 tablet in the evening. Take with meals. Do all this for 10 days. [facility] naproxen (NAPROSYN) 500 mg tablet 01-03 00:00: 00 01-14 04:59 :00 No [id number] 500mg Take 1 tablet by mouth in the morning and 1 tablet in the evening. Take with meals. Do all this for 10 days. [facility] iopamidol (ISOVUE 370-500 mL) injection 100 mL 12-28 03:00: 00 12-28 03:00 :00 No [id number] 100mL 100 mL, Intravenou s, ONCE, 1 dose, On Sat12/27/22 at 2200, Routine [facility] norelgestro min-ethinyl estradiol (XULANE) 150-35 mcg/24 hr patch 12-20 00:00: 00 Yes [id number] 1{patch } Apply 1 Patch to skin weekly. [facility] norelgestro min-ethinyl estradiol (XULANE) 150-35 mcg/24 hr patch 12-20 00:00: 00 Yes [id number] 1{patch } Apply 1 Patch to skin weekly. [facility] norelgestro min-ethinyl estradiol (XULANE) 150-35 mcg/24 hr patch 12-20 00:00: 00 Yes [id number] 1{patch } Apply 1 Patch to skin weekly. [facility] norelgestro min-ethinyl estradiol (XULANE) 150-35 mcg/24 hr patch 0 5-11 00:00: 00 Yes [id number] 1{patch } Apply 1 Patch to skin weekly. [facility] norelgestro min-ethinyl estradiol (XULANE) 150-35 mcg/24 hr patch 5-11 00:00: 00 Yes [id number] 1{patch } Apply 1 Patch to skin weekly. [facility] norelgestro min-ethinyl estradiol (XULANE) 150-35 mcg/24 hr patch 5-11 00:00: 00 01-03 00:00 :00 No [id number] 1{patch } Apply 1 Patch to skin weekly. [facility] norelgestro min-ethinyl estradiol (XULANE) 150-35 mcg/24 hr patch 5- 00:00: 00 01-03 00:00 :00 No [id number] 1{patch } Apply 1 Patch to skin weekly. [facility] doxycycline hyclate 100 mg capsule 2-13 00:00: 00 10-02 05:59 :00 No [id number] 100mg Take 1 capsule by mouth every 12 (twelve) hours for 7 days. [facility] norelgestro min-ethinyl estradiol 150-35 mcg/24 hr patch 2-10 00:00: 00 Yes [id number] 1{patch } Apply 1 Patch to skin weekly. [facility] norelgestro min-ethinyl estradiol 150-35 mcg/24 hr patch 0 2-10 00:00: 00 Yes [id number] 1{patch } Apply 1 Patch to skin weekly. [facility] norelgestro min-ethinyl estradiol 150-35 mcg/24 hr patch 2022-0 2-10 00:00: 00 Yes [id number] 1{patch } Apply 1 Patch to skin weekly. [facility] norelgestro min-ethinyl estradiol 150-35 mcg/24 hr patch 2022-0 2-10 00:00: 00 Yes [id number] 1{patch } Apply 1 Patch to skin weekly. [facility] norelgestro min-ethinyl estradiol 150-35 mcg/24 hr patch 2022-0 2-10 00:00: 00 Yes [id number] 1{patch } Apply 1 Patch to skin weekly. [facility] norelgestro min-ethinyl estradiol 150-35 mcg/24 hr patch 2022-0 2-10 00:00: 00 Yes [id number] 1{patch } Apply 1 Patch to skin weekly. [facility] norelgestro min-ethinyl estradiol 150-35 mcg/24 hr patch 2022-0 2-10 00:00: 00 Yes [id number] 1{patch } Apply 1 Patch to skin weekly. [facility] norelgestro min-ethinyl estradiol 150-35 mcg/24 hr patch 2022-0 2-10 00:00: 00 Yes [id number] 1{patch } Apply 1 Patch to skin weekly. [facility] norelgestro min-ethinyl estradiol 150-35 mcg/24 hr patch 2022-0 2-10 00:00: 00 Yes [id number] 1{patch } Apply 1 Patch to skin weekly. [facility] norelgestro min-ethinyl estradiol 150-35 mcg/24 hr patch 2022-0 2-10 00:00: 00 Yes [id number] 1{patch } Apply 1 Patch to skin weekly. [facility] norelgestro min-ethinyl estradiol 150-35 mcg/24 hr patch 2022-0 2-10 00:00: 00 Yes [id number] 1{patch } Apply 1 Patch to skin weekly. [facility] norelgestro min-ethinyl estradiol 150-35 mcg/24 hr patch 2022-0 2-10 00:00: 00 Yes [id number] 1{patch } Apply 1 Patch to skin weekly. [facility] norelgestro min-ethinyl estradiol 150-35 mcg/24 hr patch 2022-0 2-10 00:00: 00 Yes [id number] 1{patch } Apply 1 Patch to skin weekly. [facility] norelgestro min-ethinyl estradiol 150-35 mcg/24 hr patch 2022-0 2-10 00:00: 00 Yes [id number] 1{patch } Apply 1 Patch to skin weekly. [facility] norelgestro min-ethinyl estradiol 150-35 mcg/24 hr patch 2022-0 2-10 00:00: 00 Yes [id number] 1{patch } Apply 1 Patch to skin weekly. [facility] norelgestro min-ethinyl estradiol 150-35 mcg/24 hr patch 2022-0 2-10 00:00: 00 Yes [id number] 1{patch } Apply 1 Patch to skin weekly. [facility] norelgestro min-ethinyl estradiol 150-35 mcg/24 hr patch 2022-0 2-10 00:00: 00 Yes [id number] 1{patch } Apply 1 Patch to skin weekly. [facility] norelgestro min-ethinyl estradiol 150-35 mcg/24 hr patch 2022-0 2-10 00:00: 00 Yes [id number] 1{patch } Apply 1 Patch to skin weekly. [facility] norelgestro min-ethinyl estradiol 150-35 mcg/24 hr patch 2022-0 2-10 00:00: 00 Yes [id number] 1{patch } Apply 1 Patch to skin weekly. [facility] norelgestro min-ethinyl estradiol 150-35 mcg/24 hr patch 2022-0 2-10 00:00: 00 Yes [id number] 1{patch } Apply 1 Patch to skin weekly. [facility] norelgestro min-ethinyl estradiol 150-35 mcg/24 hr patch 2022-0 2-10 00:00: 00 04-01 00:00 :00 No [id number] 1{patch } Apply 1 Patch to skin weekly. [facility] norelgestro min-ethinyl estradiol 150-35 mcg/24 hr patch 2022-0 2-10 00:00: 00 04-01 00:00 :00 No [id number] 1{patch } Apply 1 Patch to skin weekly. [facility] norgestimat e-ethinyl estradioL 0.18/0.215/ 0.25 mg-25 mcg tablet 02-15 00:00: 00 Yes [id number] 1{tbl} Take 1 tablet by mouth daily. [facility] norgestimat e-ethinyl estradioL 0.18/0.215/ 0.25 mg-25 mcg tablet 02-15 00:00: 00 09-21 00:00 :00 No [id number] 1{tbl} Take 1 tablet by mouth daily. [facility] norgestimat e-ethinyl estradioL 0.18/0.215/ 0.25 mg-25 mcg tablet 02-15 00:00: 00 09-21 00:00 :00 No [id number] 1{tbl} Take 1 tablet by mouth daily. [facility] norgestimat e-ethinyl estradioL 0.18/0.215/ 0.25 mg-25 mcg tablet 11-16 00:00: 00 02-15 00:00 :00 No [id number] 1{tbl} Take 1 tablet by mouth daily. [facility] benzonatate 100 mg capsule 10-16 00:00: 00 Yes [id number] 100mg Take 1 capsule by mouth 3 (three) times daily as needed for Cough. [facility] albuterol 90 mcg/actuati on inhaler 10-16 00:00: 00 Yes [id number] 6{puff} Inhale 6 Puffs every 4 (four) hours as needed for Wheezing or Shortness of Breath. [facility] albuterol 90 mcg/actuati on inhaler 10-16 00:00: 00 Yes [id number] 6{puff} Inhale 6 Puffs every 4 (four) hours as needed for Wheezing or Shortness of Breath. [facility] albuterol 90 mcg/actuati on inhaler 10-16 00:00: 00 Yes [id number] 6{puff} Inhale 6 Puffs every 4 (four) hours as needed for Wheezing or Shortness of Breath. [facility] albuterol 90 mcg/actuati on inhaler 10-16 00:00: 00 Yes [id number] 6{puff} Inhale 6 Puffs every 4 (four) hours as needed for Wheezing or Shortness of Breath. [facility] albuterol 90 mcg/actuati on inhaler 10-16 00:00: 00 Yes [id number] 6{puff} Inhale 6 Puffs every 4 (four) hours as needed for Wheezing or Shortness of Breath. [facility] albuterol 90 mcg/actuati on inhaler 10-16 00:00: 00 Yes [id number] 6{puff} Inhale 6 Puffs every 4 (four) hours as needed for Wheezing or Shortness of Breath. [facility] albuterol 90 mcg/actuati on inhaler 10-16 00:00: 00 Yes [id number] 6{puff} Inhale 6 Puffs every 4 (four) hours as needed for Wheezing or Shortness of Breath. [facility] albuterol 90 mcg/actuati on inhaler 10-16 00:00: 00 Yes [id number] 6{puff} Inhale 6 Puffs every 4 (four) hours as needed for Wheezing or Shortness of Breath. [facility] albuterol 90 mcg/actuati on inhaler 10-16 00:00: 00 Yes [id number] 6{puff} Inhale 6 Puffs every 4 (four) hours as needed for Wheezing or Shortness of Breath. [facility] albuterol 90 mcg/actuati on inhaler 10-16 00:00: 00 Yes [id number] 6{puff} Inhale 6 Puffs every 4 (four) hours as needed for Wheezing or Shortness of Breath. [facility] albuterol 90 mcg/actuati on inhaler 10-16 00:00: 00 Yes [id number] 6{puff} Inhale 6 Puffs every 4 (four) hours as needed for Wheezing or Shortness of Breath. [facility] albuterol 90 mcg/actuati on inhaler 10-16 00:00: 00 01-03 00:00 :00 No [id number] 6{puff} Inhale 6 Puffs every 4 (four) hours as needed for Wheezing or Shortness of Breath. [facility] albuterol 90 mcg/actuati on inhaler 10-16 00:00: 00 01-03 00:00 :00 No [id number] 6{puff} Inhale 6 Puffs every 4 (four) hours as needed for Wheezing or Shortness of Breath. [facility] benzonatate 100 mg capsule 10-16 00:00: 00 09-21 00:00 :00 No [id number] 100mg Take 1 capsule by mouth 3 (three) times daily as needed for Cough. [facility] benzonatate 100 mg capsule 10-16 00:00: 00 09-21 00:00 :00 No [id number] 100mg Take 1 capsule by mouth 3 (three) times daily as needed for Cough. [facility] Immunizations Ordered Immunization Name Filled Immunization Name Date Status Comments Source Influenza Virus Vaccine Quad .5 mL IM 6+ MO 2021-11-02 00:00:00 Completed [facility] Influenza Virus Vaccine Quad .5 mL IM 6+ MO 2021-11-02 00:00:00 Completed [facility] Influenza Virus Vaccine Quad .5 mL IM 6+ MO 2021-11-02 00:00:00 Completed [facility] Influenza Virus Vaccine Quad .5 mL IM 6+ MO 2021-11-02 00:00:00 Completed [facility] Influenza Virus Vaccine Quad .5 mL IM 6+ MO 2021-11-02 00:00:00 Completed [facility] Influenza Virus Vaccine Quad .5 mL IM 6+ MO 2021-11-02 00:00:00 Completed [facility] Influenza Virus Vaccine Quad .5 mL IM 6+ MO 2021-11-02 00:00:00 Completed [facility] Influenza Virus Vaccine Quad .5 mL IM 6+ MO 2021-11-02 00:00:00 Completed [facility] Influenza Virus Vaccine Quad .5 mL IM 6+ MO 2021-11-02 00:00:00 Completed [facility] Influenza Virus Vaccine Quad .5 mL IM 6+ MO 2021-11-02 00:00:00 Completed [facility] Influenza Virus Vaccine Quad .5 mL IM 6+ MO 2021-11-02 00:00:00 Completed [facility] Influenza Virus Vaccine Quad .5 mL IM 6+ MO 2021-11-02 00:00:00 Completed [facility] Influenza Virus Vaccine Quad .5 mL IM 6+ MO 2021-11-02 00:00:00 Completed [facility] Influenza Virus Vaccine Quad .5 mL IM 6+ MO 2021-11-02 00:00:00 Completed [facility] Influenza Virus Vaccine Quad .5 mL IM 6+ MO 2021-11-02 00:00:00 Completed [facility] Influenza Virus Vaccine Quad .5 mL IM 6+ MO 2021-11-02 00:00:00 Completed [facility] Influenza Virus Vaccine Quad .5 mL IM 6+ MO 2021-11-02 00:00:00 Completed [facility] Influenza Virus Vaccine Quad .5 mL IM 6+ MO 2021-11-02 00:00:00 Completed [facility] Influenza Virus Vaccine Quad .5 mL IM 6+ MO 2021-11-02 00:00:00 Completed [facility] Influenza Virus Vaccine Quad .5 mL IM 6+ MO 2021-11-02 00:00:00 Completed [facility] Influenza Virus Vaccine Quad .5 mL IM 6+ MO 2021-11-02 00:00:00 Completed [facility] Influenza Virus Vaccine Quad .5 mL IM 6+ MO 2021-11-02 00:00:00 Completed [facility] Influenza Virus Vaccine Quad .5 mL IM 6+ MO 2021-11-02 00:00:00 Completed [facility] Influenza Virus Vaccine Quad .5 mL IM 6+ MO 2021-11-02 00:00:00 Completed [facility] Influenza Virus Vaccine Quad .5 mL IM 6+ MO 2021-11-02 00:00:00 Completed [facility] Influenza Virus Vaccine Quad .5 mL IM 6+ MO 2021-11-02 00:00:00 Completed [facility] Influenza Virus Vaccine Quad .5 mL IM 6+ MO (FLUZONE/FLULAVAL/F LUARIX) 2021-11-02 00:00:00 Completed [facility] Influenza Virus Vaccine Quad .5 mL IM 6+ MO (FLUZONE/FLULAVAL/F LUARIX) 2021-11-02 00:00:00 Completed [facility] Influenza Virus Vaccine Quad .5 mL IM 6+ MO (FLUZONE/FLULAVAL/F LUARIX) 2021-11-02 00:00:00 Completed [facility] SARS-COV-2 COVID-19 PFIZER VACCINE 2021-03-27 00:00:00 Completed [facility] SARS-COV-2 COVID-19 PFIZER VACCINE 2021-03-27 00:00:00 Completed [facility] SARS-COV-2 COVID-19 PFIZER VACCINE 2021-03-27 00:00:00 Completed [facility] SARS-COV-2 COVID-19 PFIZER VACCINE 2021-03-27 00:00:00 Completed [facility] SARS-COV-2 COVID-19 PFIZER VACCINE 2021-03-27 00:00:00 Completed [facility] SARS-COV-2 COVID-19 PFIZER VACCINE 2021-03-27 00:00:00 Completed [facility] SARS-COV-2 COVID-19 PFIZER VACCINE 2021-03-27 00:00:00 Completed [facility] SARS-COV-2 COVID-19 PFIZER VACCINE 2021-03-27 00:00:00 Completed [facility] SARS-COV-2 COVID-19 PFIZER VACCINE 2021-03-27 00:00:00 Completed [facility] SARS-COV-2 COVID-19 PFIZER VACCINE 2021-03-27 00:00:00 Completed [facility] SARS-COV-2 COVID-19 PFIZER VACCINE 2021-03-27 00:00:00 Completed [facility] SARS-COV-2 COVID-19 PFIZER VACCINE 2021-03-27 00:00:00 Completed [facility] SARS-COV-2 COVID-19 PFIZER VACCINE 2021-03-27 00:00:00 Completed [facility] SARS-COV-2 COVID-19 PFIZER VACCINE 2021-03-27 00:00:00 Completed [facility] SARS-COV-2 COVID-19 PFIZER VACCINE 2021-03-27 00:00:00 Completed [facility] SARS-COV-2 COVID-19 PFIZER VACCINE 2021-03-27 00:00:00 Completed [facility] SARS-COV-2 COVID-19 PFIZER VACCINE 2021-03-27 00:00:00 Completed [facility] SARS-COV-2 COVID-19 PFIZER VACCINE 2021-03-27 00:00:00 Completed [facility] SARS-COV-2 COVID-19 PFIZER VACCINE 2021-03-27 00:00:00 Completed [facility] SARS-COV-2 COVID-19 PFIZER VACCINE 2021-03-27 00:00:00 Completed [facility] SARS-COV-2 COVID-19 PFIZER VACCINE 2021-03-27 00:00:00 Completed [facility] SARS-COV-2 COVID-19 PFIZER VACCINE 2021-03-27 00:00:00 Completed [facility] SARS-COV-2 COVID-19 PFIZER VACCINE 2021-03-27 00:00:00 Completed [facility] SARS-COV-2 COVID-19 PFIZER VACCINE 2021-03-27 00:00:00 Completed [facility] SARS-COV-2 COVID-19 PFIZER VACCINE 2021-03-27 00:00:00 Completed [facility] SARS-COV-2 COVID-19 PFIZER VACCINE 2021-03-27 00:00:00 Completed [facility] SARS-COV-2 COVID-19 PFIZER VACCINE 2021-03-27 00:00:00 Completed [facility] SARS-COV-2 COVID-19 PFIZER VACCINE 2021-03-27 00:00:00 Completed [facility] SARS-COV-2 COVID-19 PFIZER VACCINE 2021-03-27 00:00:00 Completed [facility] SARS-COV-2 COVID-19 PFIZER VACCINE 2021-03-06 00:00:00 Completed [facility] SARS-COV-2 COVID-19 PFIZER VACCINE 2021-03-06 00:00:00 Completed [facility] SARS-COV-2 COVID-19 PFIZER VACCINE 2021-03-06 00:00:00 Completed [facility] SARS-COV-2 COVID-19 PFIZER VACCINE 2021-03-06 00:00:00 Completed [facility] SARS-COV-2 COVID-19 PFIZER VACCINE 2021-03-06 00:00:00 Completed [facility] SARS-COV-2 COVID-19 PFIZER VACCINE 2021-03-06 00:00:00 Completed [facility] SARS-COV-2 COVID-19 PFIZER VACCINE 2021-03-06 00:00:00 Completed [facility] SARS-COV-2 COVID-19 PFIZER VACCINE 2021-03-06 00:00:00 Completed [facility] SARS-COV-2 COVID-19 PFIZER VACCINE 2021-03-06 00:00:00 Completed [facility] SARS-COV-2 COVID-19 PFIZER VACCINE 2021-03-06 00:00:00 Completed [facility] SARS-COV-2 COVID-19 PFIZER VACCINE 2021-03-06 00:00:00 Completed [facility] SARS-COV-2 COVID-19 PFIZER VACCINE 2021-03-06 00:00:00 Completed [facility] SARS-COV-2 COVID-19 PFIZER VACCINE 2021-03-06 00:00:00 Completed [facility] SARS-COV-2 COVID-19 PFIZER VACCINE 2021-03-06 00:00:00 Completed [facility] SARS-COV-2 COVID-19 PFIZER VACCINE 2021-03-06 00:00:00 Completed [facility] SARS-COV-2 COVID-19 PFIZER VACCINE 2021-03-06 00:00:00 Completed [facility] SARS-COV-2 COVID-19 PFIZER VACCINE 2021-03-06 00:00:00 Completed [facility] SARS-COV-2 COVID-19 PFIZER VACCINE 2021-03-06 00:00:00 Completed [facility] SARS-COV-2 COVID-19 PFIZER VACCINE 2021-03-06 00:00:00 Completed [facility] SARS-COV-2 COVID-19 PFIZER VACCINE 2021-03-06 00:00:00 Completed [facility] SARS-COV-2 COVID-19 PFIZER VACCINE 2021-03-06 00:00:00 Completed [facility] SARS-COV-2 COVID-19 PFIZER VACCINE 2021-03-06 00:00:00 Completed [facility] SARS-COV-2 COVID-19 PFIZER VACCINE 2021-03-06 00:00:00 Completed [facility] SARS-COV-2 COVID-19 PFIZER VACCINE 2021-03-06 00:00:00 Completed [facility] SARS-COV-2 COVID-19 PFIZER VACCINE 2021-03-06 00:00:00 Completed [facility] SARS-COV-2 COVID-19 PFIZER VACCINE 2021-03-06 00:00:00 Completed [facility] SARS-COV-2 COVID-19 PFIZER VACCINE 2021-03-06 00:00:00 Completed [facility] SARS-COV-2 COVID-19 PFIZER VACCINE 2021-03-06 00:00:00 Completed [facility] SARS-COV-2 COVID-19 PFIZER VACCINE 2021-03-06 00:00:00 Completed [facility] HPV9 2019-08-25 00:00:00 Completed [facility] HPV9 2019-08-25 00:00:00 Completed [facility] HPV9 2019-08-25 00:00:00 Completed [facility] HPV9 2019-08-25 00:00:00 Completed [facility] HPV9 2019-08-25 00:00:00 Completed [facility] HPV9 2019-08-25 00:00:00 Completed [facility] HPV9 2019-08-25 00:00:00 Completed [facility] HPV9 2019-08-25 00:00:00 Completed [facility] HPV9 2019-08-25 00:00:00 Completed [facility] HPV9 2019-08-25 00:00:00 Completed [facility] HPV9 2019-08-25 00:00:00 Completed [facility] HPV9 2019-08-25 00:00:00 Completed [facility] HPV9 2019-08-25 00:00:00 Completed [facility] HPV9 2019-08-25 00:00:00 Completed [facility] HPV9 2019-08-25 00:00:00 Completed [facility] HPV9 2019-08-25 00:00:00 Completed [facility] HPV9 2019-08-25 00:00:00 Completed [facility] HPV9 2019-08-25 00:00:00 Completed [facility] HPV9 2019-08-25 00:00:00 Completed [facility] HPV9 2019-08-25 00:00:00 Completed [facility] HPV9 2019-08-25 00:00:00 Completed [facility] HPV9 2019-08-25 00:00:00 Completed [facility] HPV9 2019-08-25 00:00:00 Completed [facility] HPV9 2019-08-25 00:00:00 Completed [facility] HPV9 2019-08-25 00:00:00 Completed [facility] HPV9 2019-08-25 00:00:00 Completed [facility] HPV9 2019-08-25 00:00:00 Completed [facility] HPV9 2019-08-25 00:00:00 Completed [facility] HPV9 2019-08-25 00:00:00 Completed [facility] HPV9 2019-05-27 00:00:00 Completed [facility] HPV9 2019-05-27 00:00:00 Completed [facility] HPV9 2019-05-27 00:00:00 Completed [facility] HPV9 2019-05-27 00:00:00 Completed [facility] HPV9 2019-05-27 00:00:00 Completed [facility] HPV9 2019-05-27 00:00:00 Completed [facility] HPV9 2019-05-27 00:00:00 Completed [facility] HPV9 2019-05-27 00:00:00 Completed [facility] HPV9 2019-05-27 00:00:00 Completed [facility] HPV9 2019-05-27 00:00:00 Completed [facility] HPV9 2019-05-27 00:00:00 Completed [facility] HPV9 2019-05-27 00:00:00 Completed [facility] HPV9 2019-05-27 00:00:00 Completed [facility] HPV9 2019-05-27 00:00:00 Completed [facility] HPV9 2019-05-27 00:00:00 Completed [facility] HPV9 2019-05-27 00:00:00 Completed [facility] HPV9 2019-05-27 00:00:00 Completed [facility] HPV9 2019-05-27 00:00:00 Completed [facility] HPV9 2019-05-27 00:00:00 Completed [facility] HPV9 2019-05-27 00:00:00 Completed [facility] HPV9 2019-05-27 00:00:00 Completed [facility] HPV9 2019-05-27 00:00:00 Completed [facility] HPV9 2019-05-27 00:00:00 Completed [facility] HPV9 2019-05-27 00:00:00 Completed [facility] HPV9 2019-05-27 00:00:00 Completed [facility] HPV9 2019-05-27 00:00:00 Completed [facility] HPV9 2019-05-27 00:00:00 Completed [facility] HPV9 2019-05-27 00:00:00 Completed [facility] HPV9 2019-05-27 00:00:00 Completed [facility] TDAP (ADACEL) VACCINE 2014-06-24 00:00:00 Completed [facility] Meningococcal Vaccine 2014-06-24 00:00:00 Completed [facility] TDAP (ADACEL) VACCINE 2014-06-24 00:00:00 Completed [facility] Meningococcal Vaccine 2014-06-24 00:00:00 Completed [facility] TDAP (ADACEL) VACCINE 2014-06-24 00:00:00 Completed [facility] Meningococcal Vaccine 2014-06-24 00:00:00 Completed [facility] TDAP (ADACEL) VACCINE 2014-06-24 00:00:00 Completed [facility] Meningococcal Vaccine 2014-06-24 00:00:00 Completed [facility] TDAP (ADACEL) VACCINE 2014-06-24 00:00:00 Completed [facility] Meningococcal Vaccine 2014-06-24 00:00:00 Completed [facility] TDAP (ADACEL) VACCINE 2014-06-24 00:00:00 Completed [facility] Meningococcal Vaccine 2014-06-24 00:00:00 Completed [facility] TDAP (ADACEL) VACCINE 2014-06-24 00:00:00 Completed [facility] Meningococcal Vaccine 2014-06-24 00:00:00 Completed [facility] TDAP (ADACEL) VACCINE 2014-06-24 00:00:00 Completed [facility] Meningococcal Vaccine 2014-06-24 00:00:00 Completed [facility] TDAP (ADACEL) VACCINE 2014-06-24 00:00:00 Completed [facility] Meningococcal Vaccine 2014-06-24 00:00:00 Completed [facility] TDAP (ADACEL) VACCINE 2014-06-24 00:00:00 Completed [facility] Meningococcal Vaccine 2014-06-24 00:00:00 Completed [facility] TDAP (ADACEL) VACCINE 2014-06-24 00:00:00 Completed [facility] Meningococcal Vaccine 2014-06-24 00:00:00 Completed [facility] TDAP (ADACEL) VACCINE 2014-06-24 00:00:00 Completed [facility] Meningococcal Vaccine 2014-06-24 00:00:00 Completed [facility] TDAP (ADACEL) VACCINE 2014-06-24 00:00:00 Completed [facility] Meningococcal Vaccine 2014-06-24 00:00:00 Completed [facility] TDAP (ADACEL) VACCINE 2014-06-24 00:00:00 Completed [facility] Meningococcal Vaccine 2014-06-24 00:00:00 Completed [facility] TDAP (ADACEL) VACCINE 2014-06-24 00:00:00 Completed [facility] Meningococcal Vaccine 2014-06-24 00:00:00 Completed [facility] TDAP (ADACEL) VACCINE 2014-06-24 00:00:00 Completed [facility] Meningococcal Vaccine 2014-06-24 00:00:00 Completed [facility] TDAP (ADACEL) VACCINE 2014-06-24 00:00:00 Completed [facility] Meningococcal Vaccine 2014-06-24 00:00:00 Completed [facility] TDAP (ADACEL) VACCINE 2014-06-24 00:00:00 Completed [facility] Meningococcal Vaccine 2014-06-24 00:00:00 Completed [facility] TDAP (ADACEL) VACCINE 2014-06-24 00:00:00 Completed [facility] Meningococcal Vaccine 2014-06-24 00:00:00 Completed [facility] TDAP (ADACEL) VACCINE 2014-06-24 00:00:00 Completed [facility] Meningococcal Vaccine 2014-06-24 00:00:00 Completed [facility] TDAP (ADACEL) VACCINE 2014-06-24 00:00:00 Completed [facility] Meningococcal Vaccine 2014-06-24 00:00:00 Completed [facility] TDAP (ADACEL) VACCINE 2014-06-24 00:00:00 Completed [facility] Meningococcal Vaccine 2014-06-24 00:00:00 Completed [facility] TDAP (ADACEL) VACCINE 2014-06-24 00:00:00 Completed [facility] Meningococcal Vaccine 2014-06-24 00:00:00 Completed [facility] TDAP (ADACEL) VACCINE 2014-06-24 00:00:00 Completed [facility] Meningococcal Vaccine 2014-06-24 00:00:00 Completed [facility] TDAP (ADACEL) VACCINE 2014-06-24 00:00:00 Completed [facility] Meningococcal Vaccine 2014-06-24 00:00:00 Completed [facility] TDAP (ADACEL) VACCINE 2014-06-24 00:00:00 Completed [facility] Meningococcal Vaccine 2014-06-24 00:00:00 Completed [facility] TDAP (ADACEL) VACCINE 2014-06-24 00:00:00 Completed [facility] Meningococcal Vaccine 2014-06-24 00:00:00 Completed [facility] TDAP (ADACEL) VACCINE 2014-06-24 00:00:00 Completed [facility] Meningococcal Vaccine 2014-06-24 00:00:00 Completed [facility] TDAP (ADACEL) VACCINE 2014-06-24 00:00:00 Completed [facility] Meningococcal Vaccine 2014-06-24 00:00:00 Completed [facility] TDAP (ADACEL) VACCINE 2013-03-12 00:00:00 Completed [facility] TDAP (ADACEL) VACCINE 2013-03-12 00:00:00 Completed [facility] TDAP (ADACEL) VACCINE 2013-03-12 00:00:00 Completed [facility] TDAP (ADACEL) VACCINE 2013-03-12 00:00:00 Completed [facility] TDAP (ADACEL) VACCINE 2013-03-12 00:00:00 Completed [facility] TDAP (ADACEL) VACCINE 2013-03-12 00:00:00 Completed [facility] TDAP (ADACEL) VACCINE 2013-03-12 00:00:00 Completed [facility] TDAP (ADACEL) VACCINE 2013-03-12 00:00:00 Completed [facility] TDAP (ADACEL) VACCINE 2013-03-12 00:00:00 Completed [facility] TDAP (ADACEL) VACCINE 2013-03-12 00:00:00 Completed [facility] TDAP (ADACEL) VACCINE 2013-03-12 00:00:00 Completed [facility] TDAP (ADACEL) VACCINE 2013-03-12 00:00:00 Completed [facility] TDAP (ADACEL) VACCINE 2013-03-12 00:00:00 Completed [facility] TDAP (ADACEL) VACCINE 2013-03-12 00:00:00 Completed [facility] TDAP (ADACEL) VACCINE 2013-03-12 00:00:00 Completed [facility] TDAP (ADACEL) VACCINE 2013-03-12 00:00:00 Completed [facility] TDAP (ADACEL) VACCINE 2013-03-12 00:00:00 Completed [facility] TDAP (ADACEL) VACCINE 2013-03-12 00:00:00 Completed [facility] TDAP (ADACEL) VACCINE 2013-03-12 00:00:00 Completed [facility] TDAP (ADACEL) VACCINE 2013-03-12 00:00:00 Completed [facility] TDAP (ADACEL) VACCINE 2013-03-12 00:00:00 Completed [facility] TDAP (ADACEL) VACCINE 2013-03-12 00:00:00 Completed [facility] TDAP (ADACEL) VACCINE 2013-03-12 00:00:00 Completed [facility] TDAP (ADACEL) VACCINE 2013-03-12 00:00:00 Completed [facility] TDAP (ADACEL) VACCINE 2013-03-12 00:00:[address] [facility] TDAP (ADACEL) VACCINE 2013-03-12 00:00:00 Completed [facility] TDAP (ADACEL) VACCINE 2013-03-12 00:00:[address] [facility] TDAP (ADACEL) VACCINE 2013-03-12 00:00:[address] [facility] TDAP (ADACEL) VACCINE 2013-03-12 00:00:00 Completed [facility] TDAP (ADACEL) VACCINE Unknown Completed [facility] HPV9 Unknown Completed [facility] TDAP (ADACEL) VACCINE Unknown Completed [facility] Meningococcal Vaccine Unknown Completed [facility] HPV9 Unknown Completed [facility] TDAP (ADACEL) VACCINE Unknown Completed [facility] HPV9 Unknown Completed [facility] TDAP (ADACEL) VACCINE Unknown Completed [facility] Meningococcal Vaccine Unknown Completed [facility] HPV9 Unknown Completed [facility] SARS-COV-2 COVID-19 PFIZER VACCINE Unknown Completed [facility] SARS-COV-2 COVID-19 PFIZER VACCINE Unknown Completed [facility] Influenza Virus Vaccine Quad .5 mL IM 6+ MO (FLUZONE/FLULAVAL/F LUARIX) Unknown Completed [facility] TDAP (ADACEL) VACCINE Unknown Completed [facility] HPV9 Unknown Completed [facility] TDAP (ADACEL) VACCINE Unknown Completed [facility] Meningococcal Vaccine Unknown Completed [facility] HPV9 Unknown Completed [facility] SARS-COV-2 COVID-19 PFIZER VACCINE Unknown Completed [facility] SARS-COV-2 COVID-19 PFIZER VACCINE Unknown Completed [facility] Influenza Virus Vaccine Quad .5 mL IM 6+ MO (FLUZONE/FLULAVAL/F LUARIX) Unknown Completed [facility] TDAP (ADACEL) VACCINE Unknown Completed [facility] HPV9 Unknown Completed [facility] TDAP (ADACEL) VACCINE Unknown Completed [facility] Meningococcal Vaccine Unknown Completed [facility] HPV9 Unknown Completed [facility] SARS-COV-2 COVID-19 PFIZER VACCINE Unknown Completed [facility] SARS-COV-2 COVID-19 PFIZER VACCINE Unknown Completed [facility] Influenza Virus Vaccine Quad .5 mL IM 6+ MO (FLUZONE/FLULAVAL/F LUARIX) Unknown Completed [facility] TDAP (ADACEL) VACCINE Unknown Completed [facility] HPV9 Unknown Completed [facility] TDAP (ADACEL) VACCINE Unknown Completed [facility] Meningococcal Vaccine Unknown Completed [facility] HPV9 Unknown Completed [facility] SARS-COV-2 COVID-19 PFIZER VACCINE Unknown Completed [facility] SARS-COV-2 COVID-19 PFIZER VACCINE Unknown Completed [facility] Influenza Virus Vaccine Quad .5 mL IM 6+ MO (FLUZONE/FLULAVAL/F LUARIX) Unknown Completed [facility] TDAP (ADACEL) VACCINE Unknown Completed [facility] HPV9 Unknown Completed [facility] TDAP (ADACEL) VACCINE Unknown Completed [facility] Meningococcal Vaccine Unknown Completed [facility] HPV9 Unknown Completed [facility] SARS-COV-2 COVID-19 PFIZER VACCINE Unknown Completed [facility] SARS-COV-2 COVID-19 PFIZER VACCINE Unknown Completed [facility] Influenza Virus Vaccine Quad .5 mL IM 6+ MO (FLUZONE/FLULAVAL/F LUARIX) Unknown Completed [facility] Vital Signs Vital Name Observation Time Observation Value Comments S ource Systolic blood pressure 2023-08-20 20:26:00 136 mm[Hg] [facility] Diastolic blood pressure 2023-08-20 20:26:00 81 mm[Hg] [facility] Heart rate 2023-08-20 20:26:00 68 /min [facility] Body temperature 2023-08-20 20:26:00 36.17 [place] [facility] Respiratory rate 2023-08-20 20:26:00 18 /min [facility] Body height 2023-08-20 20:26:00 165.1 cm [facility] Body weight 2023-08-20 20:26:00 62.642 kg [facility] BMI 2023-08-20 20:26:00 22.98 kg[facility] Systolic blood pressure 2023-04-24 15:10:00 148 mm[Hg] [facility] Diastolic blood pressure 2023-04-24 15:10:00 99 mm[Hg] [facility] Heart rate 2023-04-24 15:10:00 87 /min [facility] Body temperature 2023-04-24 15:10:00 37.11 [place] [facility] Respiratory rate 2023-04-24 15:10:00 18 /min [facility] Body height 2023-04-24 15:10:00 165.1 cm [facility] Body weight 2023-04-24 15:10:00 62.596 kg [facility] BMI 2023-04-24 15:10:00 22.96 kg/m2 [facility] Oxygen saturation in Arterial blood by Pulse oximetry 2023-04-24 15:10:00 100 /min [facility] Systolic blood pressure 2023-04-18 15:54:00 141 mm[Hg] [facility] Diastolic blood pressure 2023-04-18 15:54:00 73 mm[Hg] [facility] Heart rate 2023-04-18 15:54:00 58 /min [facility] Body temperature 2023-04-18 15:54:00 36.28 [place] [facility] Respiratory rate 2023-04-18 15:54:00 18 /min [facility] Body height 2023-04-18 15:54:00 162.6 cm [facility] weight 2023-04-18 15:54:00 62.914 kg [facility] BMI 2023-04-18 15:54:00 23.81 kg/m2 [facility] Systolic blood pressure 2023-04-01 18:05:00 140 mm[Hg] [facility] Diastolic blood pressure 2023-04-01 18:05:00 87 mm[Hg] [facility] Heart rate 2023-04-01 18:02:00 97 /min [facility] Body temperature 2023-04-01 18:02:00 36 [place] [facility] Body height 2023-04-01 18:02:00 165.1 cm [facility] Body weight 2023-04-01 18:02:00 61.236 kg [facility] BMI 2023-04-01 18:02:00 22.47 kg/m2 [facility] Oxygen saturation in Arterial blood by Pulse oximetry 2023-04-01 18:02:00 97 /min [facility] Systolic blood pressure 2023-02-14 15:01:00 126 mm[Hg] [facility] Diastolic blood pressure 2023-02-14 15:01:00 58 mm[Hg] [facility] Heart rate 2023-02-14 15:01:00 70 /min [facility] Body temperature 2023-02-14 15:01:00 36.61 [place] [facility] Respiratory rate 2023-02-14 15:01:00 18 /min [facility] Body height 2023-02-14 15:01:00 165.1 cm [facility] Body weight 2023-02-14 15:01:00 66.815 kg [facility] BMI 2023-02-14 15:01:00 24.51 kg/m2 [facility] Oxygen saturation in Arterial blood by Pulse oximetry 2023-02-14 15:01:00 100 /min [facility] Systolic blood pressure 2023-01-03 14:37:00 130 mm[Hg] [facility] Diastolic blood pressure 2023-01-03 14:37:00 85 mm[Hg] [facility] Heart rate 2023-01-03 14:37:00 66 /min [facility] Body temperature 2023-01-03 14:37:00 36.28 [place] [facility] Body height 2023-01-03 14:37:00 165.1 cm [facility] weight 2023-01-03 14:37:00 68.221 kg [facility] BMI 2023-01-03 14:37:00 25.03 kg/m2 [facility] Oxygen saturation in Arterial blood by Pulse oximetry 2023-01-03 14:37:00 98 /min [facility] Systolic blood pressure 2022-12-28 00:30:00 133 mm[Hg] [facility] Diastolic blood pressure 2022-12-28 00:30:00 75 mm[Hg] [facility] Heart rate 2022-12-28 00:30:00 82 /min [facility] Body temperature 2022-12-28 00:30:00 37.22 [place] [facility] Respiratory rate 2022-12-28 00:30:00 16 /min [facility] Body height 2022-12-28 00:30:00 165.1 cm [facility] Body weight 2022-12-28 00:30:00 67.858 kg [facility] BMI 2022-12-28 00:30:00 24.89 kg/m2 [facility] Oxygen saturation in Arterial blood by Pulse oximetry 2022-12-28 00:30:00 100 /min [facility] Systolic blood pressure 2022-12-28 00:06:00 145 mm[Hg] [facility] Diastolic blood pressure 2022-12-28 00:06:00 102 mm[Hg] [facility] Heart rate 2022-12-28 00:06:00 88 /min [facility] Body temperature 2022-12-28 00:06:00 36.39 [place] [facility] Respiratory rate 2022-12-28 00:06:00 17 /min [facility] Body weight 2022-12-28 00:06:00 67.813 kg [facility] BMI 2022-12-28 00:06:00 25.66 kg/m2 [facility] Oxygen saturation in Arterial blood by Pulse oximetry 2022-12-28 00:06:00 98 /min [facility] Systolic blood pressure 2022-12-20 14:41:00 128 mm[Hg] [facility] Diastolic blood pressure 2022-12-20 14:41:00 79 mm[Hg] [place] [facility] Heart rate 2022-12-20 14:41:00 79 /min [facility] Body temperature 2022-12-20 14:41:00 36 [place] [facility] Respiratory rate 2022-12-20 14:41:00 18 /min [facility] Body height 2022-12-20 14:41:00 162.6 cm [facility] Body weight 2022-12-20 14:41:00 69.854 kg [facility] BMI 2022-12-20 14:41:00 26.43 kg/m2 [facility] Systolic blood pressure 2022-09-21 15:50:00 132 mm[Hg] [facility] Diastolic blood pressure 2022-09-21 15:50:00 73 mm[Hg] [facility] Heart rate 2022-09-21 15:45:00 73 /min [facility] Body temperature 2022-09-21 15:45:00 36.72 [place] [facility] Respiratory rate 2022-09-21 15:45:00 19 /min [facility] Body height 2022-09-21 15:45:00 165.1 cm [facility] Body weight 2022-09-21 15:45:00 76.068 kg [facility] BMI 2022-09-21 15:45:00 27.91 kg/m2 [facility] Systolic blood pressure 2022-02-15 13:51:00 127 mm[Hg] [facility] Diastolic blood pressure 2022-02-15 13:51:00 88 mm[Hg] [facility] Heart rate 2022-02-15 13:51:00 71 /min [facility] Body temperature 2022-02-15 13:51:00 36.11 [place] [facility] Respiratory rate 2022-02-15 13:51:00 16 /min [facility] Body height 2022-02-15 13:51:00 165.1 cm [facility] Body weight 2022-02-15 13:51:00 89.313 kg [facility] BMI 2022-02-15 13:51:00 32.77 kg/m2 [facility] Procedures Procedure Date / Time Performed Performing Clinician Source POCT TEST 2023-04-24 15:42:00 Berkley Grant [facility] URINALYSIS 2023-04-24 15:38:00 Rahel Grant [facility] ASSIGNMENT OF BENEFITS 2023-04-24 15:20:04 Docto r Unassigned, [place] [facility] CONSENT/REFUSAL FOR DIAGNOSIS AND TREATMENT 2023-04-24 15:04:50 Doctor Unassigned, [place] [facility] POCT TEST 2023-04-18 00:00:00 Adriano Bowers [facility] COMP. METABOLIC PANEL (28159) 2023-04-01 18:36:00 Eliza Bowers [facility] CBC WITH DIFF 2023-04-01 18:36:00 Eliza Bowers [facility] POCT URINALYSIS 2023-01-03 15:09:00 Eliza Bowers [facility] POCT TEST 2023-01-03 15:09:00 Adriano Bowers [facility] CT ABDOMEN PELVIS W CONTRAST 2022-12-28 02:03:46 Yaw Leiva [facility] ASSIGNMENT OF BENEFITS 2022-12-28 01:22:25 Docto r Unassigned, [place] [facility] POCT TEST 2022-12-28 01:05:00 Kasandra Leiva [facility] LIPASE 2022-12-28 01:04:00 Yaw Leiva [facility] THYROID STIMULATING HORMONE 2022-12-28 01:04:00 Yaw Leiva [facility] COMP. METABOLIC PANEL (31952) 2022-12-28 01:04:00 Yaw Leiva [facility] CBC WITH DIFF 2022-12-28 01:04:00 Yaw Leiva [facility] URINALYSIS 2022-12-28 01:04:00 Leiva, Yaw [facility] CONSENT/REFUSAL FOR DIAGNOSIS AND TREATMENT 2022-12-28 00:17:56 Doctor Unassigned, [place] [facility] ASSIGNMENT OF BENEFITS 2022-12-20 14:26:08 Docto r Unassigned, [place] [facility] POCT TEST 2022-09-21 00:00:00 Sivan Franklin [facility] Encounters Start Date/Time End Date/Time Encounter Type Admission Type Attending [facility] Care Facility Care Department Encounter ID Source 2021-06-08 19:53:[address] [facility] [id number] [facility] 2023-09-17 00:00:00 2023-09-17 00:00:00 Outpatient SYDNEY GAXIOLA [facility] [id number] [facility] 2023-09-13 10:00:00 2023-09-13 10:00:00 Outpatient BRUNA ESCAMILLA ASHLEY [facility] [id number] [facility] 2023-09-02 00:00:00 2023-09-02 00:00:00 Outpatient R SYDNEY LUBIN [facility] [id number] [facility] 2023-08-23 00:00:00 2023-08-23 00:00:00 Patient Secure Msg Doctor Unassigned, [place] [facility] 1..840.114 350.1.13.10 4.2.7.2.686 [id number] [facility] 2023-08-20 14:30:00 2023-08-20 15:39:40 Outpatient R SYDNEY LUBIN [facility] [id number] [facility] 2023-08-20 14:30:00 2023-08-20 15:39:40 Office Visit Pgy2 Sydney Lubin [facility] ..114 350.1.13.10 4.2.7.2.686 [id number] [facility] 2023-08-13 00:00:00 2023-08-13 00:00:00 Telephone Trevor Gretchen [facility] 1..840.114 350.1.13.10 4.2.7.2.686 [id number] [facility] 2023-07-18 08:30:00 2023-07-18 08:30:00 Outpatient R ELIZA BOWERS [facility] [id number] [facility] 2023-04-24 10:13:00 2023-04-24 12:05:00 Emergency X RAHEL GRANT [facility] ERT [id number] [facility] 2023-04-24 10:13:00 2023-04-24 12:05:00 Emergency Rahel Grant [facility] 1.2.840.114 350.1.13.10 4.2.7.2.686 [id number] [facility] 2023-04-18 11:00:00 2023-04-18 11:09:48 Outpatient R ELIZA BOWERS [facility] [id number] [facility] 2023-04-18 11:00:00 2023-04-18 11:09:48 Office Visit Eliza Bowers [facility] 1.2.840.114 350.1.13.10 4.2.7.2.686 [id number] [facility] 2023-04-04 00:00:00 2023-04-04 00:00:00 Telephone Eliza Bowers [facility] 1..840.114 350.1.13.10 4.2.7.2.686 [id number] [facility] 2023-04-01 13:53:27 2023-04-01 23:59:00 Outpatient R ELIZA BOWERS [facility] [id number] [facility] 2023-04-01 13:45:00 2023-04-01 23:59:00 Hospital Encounter Eliza Bowers [facility] 1.2.840.114 350.1.13.10 4.2.7.2.686 [id number] [facility] 2023-04-01 13:30:00 2023-04-01 13:36:46 Freight Handler Visit 2, [facility] 1.2.840.114 350.1.13.10 4.2.7.2.686 [id number] [facility] 2023-04-01 13:00:00 2023-04-01 13:28:27 Office Visit Eliza Bowers [facility] 1.2.840.114 350.1.13.10 4.2.7.2.686 [id number] [facility] 2023-03-14 11:00:00 2023-03-14 11:00:00 Outpatient R ELIZA BOWERS [facility] [id number] [facility] 2023-03-09 00:00:00 2023-03-09 00:00:00 Refill Eliza Bowers [facility] 1.2.840.114 350.1.13.10 4.2.7.2.686 [id number] [facility] 2023-02-14 10:00:00 2023-02-14 10:27:33 Outpatient R ELIZA BOWERS [facility] [id number] [facility] 2023-02-14 10:00:00 2023-02-14 10:27:33 Office Visit Eliza Bowers [facility] 1.2.840.114 350.1.13.10 4.2.7.2.686 [id number] [facility] 2023-01-23 14:30:00 2023-01-23 14:30:00 Outpatient R LESLIE CASTELLANOS [facility] [id number] [facility] 2023-01-10 00:00:00 2023-01-10 00:00:00 Outpatient R ELIZA BOWERS [facility] [id number] [facility] 2023-01-04 00:00:00 2023-01-04 00:00:00 Telephone Leslie Castellanos [facility] TURN OUT WORKER [facility] MATERNAL & CHILD [facility] 1.2.840.114 350.1.13.10 4.2.7.2.686 [id number] [facility] 2023-01-03 10:15:00 2023-01-03 10:30:00 Freight Handler Visit 2, Adc Lab Eliza Bowers [facility] 1.2.840.114 350.1.13.10 4.2.7.2.686 [id number] [facility] 2023-01-03 09:30:00 2023-01-03 10:13:42 Outpatient R ELIZA BOWERS [facility] [id number] [facility] 2023-01-03 09:30:00 2023-01-03 10:13:42 Office Visit Eliza Bowers [facility] 1.2.840.114 350.1.13.10 4.2.7.2.686 [id number] [facility] 2023-01-03 00:00:00 2023-01-03 00:00:00 Telephone Leslie Castellanos [facility] 1.[facility].840.114 350.1.13.10 4.2.7.2.686 [id number] [facility] 2023-01-01 15:15:00 2023-01-01 15:15:00 Outpatient R LESLIE CASTELLANOS [facility] [id number] [facility] 2023-01-01 08:30:00 2023-01-01 08:30:00 Outpatient R ELIZA BOWERS [facility] [id number] [facility] 2022-12-27 19:33:00 2022-12-27 21:29:00 Emergency X YAW LEIVA [facility] ERT [id number] [facility] 2022-12-27 19:33:00 2022-12-27 21:29:00 Emergency Yaw Leiva [facility] 1.840.114 350.1.13.10 4.2.7.2.686 [id number] [facility] 2022-12-27 19:00:00 2022-12-27 19:20:00 Nurse Visit Nurse, Arcadio Cardenas [facility] Unknown, Attending [facility] 1.840.114 350.1.13.10 4.2.7.2.686 [id number] [facility] 2022-12-27 19:00:00 2022-12-27 19:00:00 Outpatient R UNKNOWN, ATTENDING [facility] [id number] [facility] 2022-12-27 19:00:00 2022-12-27 19:00:00 Outpatient R BAILEE LIZ [facility] [id number] [facility] 2022-12-25 00:00:00 2022-12-25 00:00:00 Telephone Leslie Castellanos [facility] TURN OUT WORKER [facility] MATERNAL & CHILD HEALTH [facility] 1.840.114 350.1.13.10 4.2.7.2.686 [id number] [facility] 2022-12-20 10:00:00 2022-12-20 10:58:56 Outpatient R LESLIE CASTELLANOS [facility] [id number] [facility] 2022-12-20 10:00:00 2022-12-20 10:58:56 Office Visit Leslie Castellanos [facility] TURN OUT WORKER [facility] MATERNAL & CHILD [facility] 1.840.114 350.1.13.10 4.2.7.2.686 [id number] [facility] 2022-12-20 00:00:00 2022-12-20 00:00:00 Orders Only Doctor Unassigned, [place] [facility] 1.0.114 350.1.13.10 4.2.7.2.686 [id number] [facility] 2022-09-24 00:00:00 2022-09-24 00:00:00 Case Management Carla Franklin [facility] TURN OUT WORKER [facility] & CHILD [facility] 1..114 350.1.13.10 4.2.7.2.686 [id number] [facility] 2022-09-21 09:30:00 2022-09-21 10:18:05 Outpatient CARLA MENDOZA [facility] [id number] [facility] 2022-09-21 09:30:00 2022-09-21 10:18:05 Office Visit Provider, Arcadio-Rmchp Carla Bass [facility] TURN OUT WORKER [facility] & CHILD [facility] 1..114 350.1.13.10 4.2.7.2.686 [id number] [facility] 2022-09-21 00:00:00 2022-09-21 00:00:00 Letter (Out) Carla Franklin [facility] TURN OUT WORKER [facility] & CHILD [facility] 1.0.114 350.1.13.10 4.2.7.2.686 [id number] [facility] 2022-09-07 08:30:00 2022-09-07 08:30:00 Outpatient ROSALES WATKINS EMILY [facility] [id number] [facility] 2022 13:40:00 2022 13:40:00 Outpatient R MELINDA WHITING [facility] [id number] [facility] 2022-02-15 09:00:00 2022-02-15 09:18:29 Office Visit Jacob Barrientos [facility] TURN OUT WORKER [facility] MATERNAL & CHILD [facility] 1.2.840.114 350.1.13.10 4.2.7.2.686 [id number] [facility] 2022-02-15 09:00:00 2022-02-15 09:18:29 Outpatient R JACOB BARRIENTOS [facility] [id number] [facility] 2022-02-15 09:00:00 2022-02-15 09:00:00 Outpatient R JACOB BARRIENTOS [facility] [id number] [facility] 2022-02-15 09:00:00 2022-02-15 09:00:00 Outpatient R JACOB BARRIENTOS [facility] [id number] [facility] 2022-01-12 00:00:00 2022-01-12 00:00:00 Telephone Jacob Barrientos [facility] TURN OUT WORKER [facility] MATERNAL & CHILD [facility] 1.2.840.114 350.1.13.10 4.2.7.2.686 [id number] [facility] 2022-01-11 15:15:00 2022-01-11 16:08:32 Office Visit Jacob Barrientos [facility] TURN OUT WORKER [facility] & CHILD [facility] 1.2.840.114 350.1.13.10 4.2.7.2.686 [id number] [facility] 2022-01-11 15:15:00 2022-01-11 16:08:32 Outpatient R JACOB BARRIENTOS [facility] [id number] [facility] 2022-01-11 15:15:00 2022-01-11 15:15:00 Outpatient R BARRIENTOSJACOB [facility] [id number] [facility] 2021-11-16 10:30:00 2021-11-16 10:30:00 Outpatient R [facility] [id number] [facility] 2021-11-16 08:00:00 2021-11-16 08:20:47 Outpatient R FLOYD JACOB [facility] [id number] [facility] 2021-11-16 08:00:00 2021-11-16 08:20:47 Nurse Visit Visit, Ang-Rmp Nurse Floyd Jacob [facility] TURN OUT [facility] [facility] 1.2.840.114 350.1.13.10 4.2.7.2.686 [id number] 107 [id number] [facility] 2021-11-03 00:00:00 2021-11-03 00:00:00 Telephone Floyd Jacob Love [facility] TURN OUT WORKER [facility]ILD [facility] 1.2.840.114 350.1.13.10 4.2.7.2.686 [id number] 107 [id number] [facility] 2021-11-02 10:30:00 2021-11-02 11:58:09 Office Visit FloydJacob [facility] TURN OUT WORKER [facility] 1.2.840.114 350.1.13.10 4.2.7.2.686 [id number] 107 [id number] [facility] 2021-11-02 10:30:00 2021-11-02 11:58:09 Outpatient R JACOB BARRIENTOS [facility] [id number] [facility] 2021-11-02 10:30:00 2021-11-02 11:58:09 Outpatient R BARRIENTOSJACOB [facility] [id number] [facility] 2021-11-02 10:30:00 2021-11-02 10:30:00 Outpatient JACOB BAUTISTA [facility] [id number] [facility] 2021-11-02 10:30:00 2021-11-02 10:30:00 Outpatient JACOB BAUTISTA [facility] [id number] [facility] 2021-11-02 00:00:00 2021-11-02 00:00:00 Orders Only Doctor Unassigned, [place] [facility] 1.84.114 350.1.13.10 4.2.7.2.686 [id number] [facility] 2021-10-16 19:47:00 2021-10-16 20:32:00 Emergency X ALIVIA ERNANDEZ [facility] ERT [id number] [facility] 2021-10-16 19:47:00 2021-10-16 20:32:00 Emergency Alivia Ernandez [facility] 1.84.114 350.1.13.10 4.2.7.2.686 [id number] [facility] 2021-08-01 08:30:00 2021-08-01 09:21:32 Outpatient JACOB BAUTISTA [facility] [id number] [facility] 2021-08-01 08:30:00 2021-08-01 09:21:32 Office Visit Mary Barrientoskhang [facility] TURN OUT WORK[facility] 1.840.114 350.1.13.10 4.2.7.2.686 [id number] 107 [id number] [facility] 2021-08-01 00:00:00 2021-08-01 00:00:00 Orders Only Doctor Unassigned, [place] [facility] 1.840.114 350.1.13.10 4.2.7.2.686 [id number] [facility] 2021-07-31 00:00:00 2021-07-31 00:00:00 Telephone Jacob Barrientos [facility] TURN OUT WORKER [facility] MATERNAL & CHILD [facility] 1.2.840.114 350.1.13.10 4.2.7.2.686 [id number] 107 [id number] [facility] 2021-06-13 10:30:00 2021-06-13 10:58:17 Outpatient R MILVIA MENDIOLA [facility] [id number] [facility] 2021-06-13 10:01:19 2021-06-13 10:58:17 Office Visit Maury [facility] TURN OUT WORKER [facility] MATERNAL & CHILD [facility] 1..840.114 350.1.13.10 4.2.7.2.686 [id number] [facility] 2021-06-13 10:30:00 2021-06-13 10:30:00 Outpatient R MILVIA MENDIOLA [facility] [id number] [facility] 2021-06-06 00:00:00 2021-06-06 00:00:00 Telephone Jacob Barrientos [facility] TURN OUT WORKER [facility] 1..840.114 350.1.13.10 4.2.7.2.686 [id number] 107 [id number] [facility] 2021-04-10 10:00:00 2021-04-10 10:00:00 Outpatient LESLIE BOWER [facility] [id number] [facility] 2021-03-31 00:00:00 2021-03-31 00:00:00 Letter (Out) Rayne Jones [facility] ..840.114 350.1.13.10 4.2.7.2.686 [id number] [facility] 2021-03-30 12:30:00 2021-03-30 12:30:00 Outpatient NI WRIGHT [facility] [id number] [facility] 2020-12-30 09:29:12 2020-12-30 10:10:09 Office Visit BarrientosJacob [facility] TURN OUT WORKER [facility] 1.2.840.114 350.1.13.10 4.2.7.2.686 [id number] 107 [id number] [facility] 2020-12-30 09:29:12 2020-12-30 10:10:09 Office Visit Barrientos, Roskhang Love [facility] TURN OUT WORKER [facility] CHILD [facility] 1.2.840.114 350.1.13.10 4.2.7.2.686 [id number] 107 [id number] 2020-12-30 09:30:00 2020-12-30 09:30:00 Outpatient R LESLIE CASTELLANOS [facility] [id number] [facility] 2020-12-30 08:45:00 2020-12-30 08:45:00 Outpatient R JACOB BARRIENTOS [facility] [id number] [facility] 2020-12-16 08:57:28 2020-12-16 09:27:28 Office Visit Leslie Castellanos [facility] TURN OUT WORKER [facility] 1.2.840.114 350.1.13.10 4.2.7.2.686 [id number] 107 [id number] [facility] 2020-12-16 09:00:00 2020-12-16 09:00:00 Outpatient R LESLIE CASTELLANOS [facility] [id number] [facility] 2020-12-16 00:00:00 2020-12-16 00:00:00 Orders Only Doctor Unassigned, [place] [facility] 1.2.840.114 350.1.13.10 4.2.7.2.686 [id number] [facility] 2020-12-02 00:00:00 2020-12-02 00:00:00 Telephone Leslie Castellanos [facility] TURN OUT WORKER [facility] 1.2840.114 350.1.13.10 4.2.7.2.686 [id number] 107 [id number] [facility] 2020-11-29 15:31:01 2020-11-29 15:46:01 Nurse Visit Visit, [facility] Nurse Jacob Barrientos [facility] TURN OUT WORKER [facility] 1.20.114 350.1.13.10 4.2.7.2.686 [id number] 107 [id number] [facility] 2020-11-29 15:30:00 2020-11-29 15:30:00 Outpatient JACOB BAUTISTA [facility] [id number] [facility] 2020-11-29 00:00:00 2020-11-29 00:00:00 Telephone Jacob Barrientos [facility] TURN OUT WORKER [facility] 1.0.114 350.1.13.10 4.2.7.2.686 [id number] 107 [id number] [facility] 2020-11-02 10:16:29 2020-11-02 11:05:27 Office Visit Jacob Barrientos [facility] TURN OUT WORKER [facility] CHILD [facility] 1.840.114 350.1.13.10 4.2.7.2.686 [id number] 107 [id number] [facility] 2020-11-02 10:15:00 2020-11-02 10:15:00 Outpatient R JACOB BARRIENTOS [facility] [id number] [facility] 2020-11-02 00:00:00 2020-11-02 00:00:00 Orders Only Doctor Unassigned, [place] [facility] 1.840.114 350.1.13.10 4.2.7.2.686 [id number] [facility] 2020-11-01 15:00:00 2020-11-01 15:00:00 Outpatient R JACOB BARRIENTOS [facility] [id number] [facility] 2020-11-01 00:00:00 2020-11-01 00:00:00 Patient Outreach Joel Matt [facility] .114 350.1.13.10 4.2.7.2.686 [id number] [facility] 2020-07-13 00:00:00 2020-07-13 00:00:00 Patient Secure Msg Doctor Unassigned, [place] MAURA COKER .114 350.1.13.10 4.2.7.2.686 [id number] [facility] 2020-07-04 00:00:00 2020-07-04 00:00:00 Refill Leslie Castellanos [facility] TURN OUT WORKER [facility] MATERNAL & CHILD [facility] 114 350.1.13.10 4.2.7.2.686 [id number] 107 [id number] [facility] 2020-06-13 09:15:00 2020-06-13 09:15:00 Outpatient R LESLIE CASTELLANOS [facility] [id number] [facility] 2020-06-13 09:15:00 2020-06-13 09:15:00 Outpatient R LESLIE CASTELLANOS [facility] [id number] [facility] 2020-06-01 00:00:00 2020-06-01 00:00:00 Refill Leslie Castellanos [facility] TURN OUT WORKER [facility] 114 350.1.13.10 4.2.7.2.686 [id number] 107 [id number] [facility] 2020-05-30 00:00:00 2020-05-30 00:00:00 Refill Elena Hatfield [facility] [address] 114 350.1.13.10 4.2.7.2.686 [id number] [facility] 2020-05-27 10:30:00 2020-05-27 10:30:00 Outpatient R LESLIE CASTELLANOS [facility] [id number] [facility] 2020-05-27 10:30:00 2020-05-27 10:30:00 Outpatient R LESLIE CASTELLANOS [facility] [id number] [facility] 2020-05-10 11:18:40 2020-05-10 11:38:40 Urgent Care Provider, [facility] Elena Hatfield [facility] [address] 1..840.114 350.1.13.10 4.2.7.2.686 [id number] [facility] 2020-05-10 11:20:00 2020-05-10 11:20:00 Outpatient R ELENA HATFIELD [facility] [id number] [facility] 2020-05-09 00:00:00 2020-05-09 00:00:00 Telephone Jacob Barrientos [facility] TURN OUT WORKER [facility] MATERNAL & CHILD [facility] 1..840.114 350.1.13.10 4.2.7.2.686 [id number] 107 [id number] [facility] 2020-03-31 09:26:23 2020-03-31 10:13:41 Office Visit Leslie Castellanos [facility] TURN OUT WORKER [facility] MATERNAL & CHILD [facility] 1..840.114 350.1.13.10 4.2.7.2.686 [id number] 107 [id number] [facility] 2020-03-31 09:00:00 2020-03-31 09:00:00 Outpatient R LESLIE CASTELLANOS [facility] [id number] [facility] 2020-03-11 00:00:00 2020-03-11 00:00:00 Telephone Leslie Castellanos [facility] TURN OUT WORKER [facility] 1.2.840.114 350.1.13.10 4.2.7.2.686 [id number] 107 [id number] [facility] 2020-03-10 14:30:00 2020-03-10 14:30:00 Outpatient R ANGEL CASTELLANOSOLA [facility] [id number] [facility] 2020-03-10 10:09:10 2020-03-10 11:09:52 Office Visit Leslie Castellanos Patricio [facility] TURN OUT WORKER [facility] 1.2.840.114 350.1.13.10 4.2.7.2.686 [id number] 107 [id number] [facility] 2020-03-07 00:00:00 2020-03-07 00:00:00 Telephone Raymundo Barrientosmario alberto Love [facility] TURN OUT WORKER [facility] CHILD [facility] 1.2840.114 350.1.13.10 4.2.7.2.686 [id number] 107 [id number] [facility] 2019-12-29 13:01:04 2019-12-30 11:33:02 Initial Visit Floyd Jacob Love [facility] TURN OUT WORKER [facility] CHILD [facility] 1.2.840.114 350.1.13.10 4.2.7.2.686 [id number] 107 [id number] [facility] 2019-12-30 00:00:00 2019-12-30 00:00:00 Patient Secure Msg Doctor Unassigned, [place] [facility] TURN OUT WORKER [facility] CHILD [facility] 1.2.840.114 350.1.13.10 4.2.7.2.686 [id number] 107 [id number] [facility] 2019-12-30 00:00:00 2019-12-30 00:00:00 Patient Secure Msg Doctor Unassigned, [place] [facility] TURN OUT WORKER [facility] CHILD [facility] 1.2.840.114 350.1.13.10 4.2.7.2.686 [id number] 107 [id number] [facility] 2019-12-29 14:04:59 2019-12-29 14:20:25 Office Visit Missael Barrientosmounika [facility] TURN OUT WORKER [facility] MATERNAL & CHILD [facility] 1.2.840.114 350.1.13.10 4.2.7.2.686 [id number] 107 [id number] [facility] 2019-12-29 12:45:00 2019-12-29 12:45:00 Outpatient R JACOB BARRIENTOS [facility] [id number] [facility] 2019-12-15 07:30:05 2019-12-15 08:20:00 Emergency RameshFletcher [facility] 1.2840.114 350.1.13.10 4.2.7.2.686 [id number] [facility] 2019-12-14 00:00:00 2019-12-14 00:00:00 Patient Secure Msg Ethel Marie [facility] TURN OUT WORKER [facility] MATERNAL & CHILD [facility] 1.2840.114 350.1.13.10 4.2.7.2.686 [id number] 107 [id number] [facility] 2019-11-30 08:30:00 2019-11-30 08:30:00 Outpatient R [facility] [id number] [facility] 2019-11-27 09:30:00 2019-11-27 09:30:00 Outpatient R [facility] [id number] [facility] 2019-11-26 09:00:00 2019-11-26 09:00:00 Outpatient R [facility] [id number] [facility] 2019-11-26 00:00:00 2019-11-26 00:00:00 Telephone Missael Barrientosmounika [facility] TURN OUT WORKER [facility] 1.2840.114 350.1.13.10 4.2.7.2.686 [id number] 107 [id number] [facility] 2019-11-24 09:30:00 2019-11-24 09:30:00 Outpatient R LESLIE CASTELLANOS [facility] [id number] [facility] 2019-11-03 05:13:00 2019-11-03 05:13:00 Outpatient Raju_P [facility] [id number] [facility] 2019-10-27 00:00:00 2019-10-27 00:00:00 Patient Secure MsJacob Allen [facility] TURN OUT WORKER [facility] MATERNAL & CHILD [facility] 1..840.114 350.1.13.10 4.2.7.2.686 [id number] 107 [id number] [facility] 2019-10-16 10:45:40 2019-10-16 11:26:43 Office Visit Leslie Castellanos [facility] TURN OUT WORKER [facility] 1.840.114 350.1.13.10 4.2.7.2.686 [id number] 107 [id number] [facility] 2019-10-16 10:45:00 2019-10-16 10:45:00 Outpatient R LESLIE CASTELLANOS MAALISON [facility] [id number] [facility] 2019-10-07 12:51:31 2019-10-07 13:44:17 Office Visit Leslie Castellanos [facility] TURN OUT WORKER [facility] .840.114 350.1.13.10 4.2.7.2.686 [id number] 107 [id number] [facility] 2019-10-07 13:00:00 2019-10-07 13:00:00 Outpatient R LESLIE CASTELLANOS [facility] [id number] [facility] 2019-10-06 00:00:00 2019-10-06 00:00:00 Telephone Leslie Castellanos [facility] TURN OUT WORKER [facility] 1..840.114 350.1.13.10 4.2.7.2.686 [id number] 107 [id number] [facility] 2019-10-02 14:07:49 2019-10-02 15:15:37 Office Visit Leslie Castellanos [facility] TURN OUT WORKER [facility] MATERNAL & CHILD [facility] 1.2.840.114 350.1.13.10 4.2.7.2.686 [id number] 107 [id number] [facility] 2019-08-25 09:57:53 2019-08-25 13:09:26 Office Visit Leslie Castellanos [facility] TURN OUT WORKER [facility] 1.2.840.114 350.1.13.10 4.2.7.2.686 [id number] 107 [id number] [facility] 2019-08-25 00:00:00 2019-08-25 00:00:00 Orders Only Doctor Unassigned, [place] [facility] 1.2.840.114 350.1.13.10 4.2.7.2.686 [id number] [facility] 2019-08-25 00:00:00 2019-08-25 00:00:00 Letter (Out) Leslie Castellanos [facility] CHILD [facility] 1.2.840.114 350.1.13.10 4.2.7.2.686 [id number] 107 [id number] [facility] 2019-03-05 22:28:42 2019-03-05 23:12:00 Emergency Alvin Pace [facility] 1.2.840.114 350.1.13.10 4.2.7.2.686 [id number] [facility] Results Test Description Test Time Test Comments Results Result Co mments Source [id number] 16:00:00* Test Item Value Reference Range Interpretation Comme nts POCT PREG (test code = 1605) Negative On board controls acceptable with C Line (test code = 3574) Yes POCT PREG LOT # (test code = 3575) POCT PREG TEST DATE ( test code = 3576) [facility] [id number] 16:00:00* Test Item Value Reference Range Interpretation Comme nts POCT PREG (test code = 1605) Negative On board controls acceptable with C Line (test code = 3574) Yes POCT PREG LOT # (test code = 3575) POCT PREG TEST DATE ( test code = 3576) [facility] URINALYSIS W SPECIFIC [id number] 15:11:00* Test Item Value Reference Range Interpretation Comme nts POCT U SP GRAV (test code = 3255) 1.005 mg/dl 1.005-1.025 POCT PH U (test code = 3254) 5 mg/dl 5-8 POCT U LEUK EST (test code = 3263) Negative Negative - Negative POCT U NIT (test code = 3262) Negative Negative - Negati ve POCT U PROT (test code = 3259) 30 Negative - Negative POCT U GLU (test code = 3256) Negative Negative - Negati ve POCT U KETONE (test code = 3258) Negative Negative - Negative POCT U UROBILI (test code = 3260) 2 mg/dl 0.2-1 A POCT U BILI (test code = 3261) Negative Negative - Negative POCT U BLD (test code = 3257) large Negative - Negati ve POCT U COLOR (test code = 3266) Yellow POCT U APPEAR (test code = 3267) clear Lab Interpretation (test cod e = 99168-9) Abnormal [facility] URINALYSIS W SPECIFIC [id number] 15:11:00* Test Item Value Reference Range Interpretation Comme nts POCT U SP GRAV (test code = 3255) 1.005 mg/dl 1.005-1.025 POCT PH U (test code = 3254) 5 mg/dl 5-8 POCT U LEUK EST (test code = 3263) Negative Negative - Negative POCT U NIT (test code = 3262) Negative Negative - Negati ve POCT U PROT (test code = 3259) 30 Negative - Negative POCT U GLU (test code = 3256) Negative Negative - Negati ve POCT U KETONE (test code = 3258) Negative Negative - Negative POCT U UROBILI (test code = 3260) 2 mg/dl 0.2-1 A POCT U BILI (test code = 3261) Negative Negative - Negative POCT U BLD (test code = 3257) large Negative - Negati ve POCT U COLOR (test code = 3266) Yellow POCT U APPEAR (test code = 3267) clear Lab Interpretation (test cod e = 19055-0) Abnormal [facility] [id number] 15:09:00* Test Item Value Reference Range Interpretation Comme nts POCT PREG (test code = 1605) Negative On board controls acceptable with C Line (test code = 3574) Yes POCT PREG LOT # (test code = 3575) POCT PREG TEST DATE ( test code = 3576) [facility] [id number] 15:09:00* Test Item Value Reference Range Interpretation Comme nts POCT PREG (test code = 1605) Negative On board controls acceptable with C Line (test code = 3574) Yes POCT PREG LOT # (test code = 3575) POCT PREG TEST DATE ( test code = 3576) [facility] [id number] 02:02:22 * Test Item Value Reference Range Interpretation Comme nts TSH (test code = 7919488369) 2.26 See_Comment [Automated messa ge] The system which generated this result transmitted reference range: 0.45 - 4.70 mIU/L. The reference range was not used to interpret this result as normal/abnormal. Lab Interpretation (test code = 52724-8) Normal [facility] System[facility] MET[facility]OLIC PANEL (17875)2022-12-28 01:32:39* Test Item Value Reference Range Interpretation Comme nts NA (test code = 3948188887) 139 mmol/L 135-145 K (test code = 1597236708) 3.4 mmol/L 3.5-5.0 L CL (test code = 5973396969) 103 mmol/L 98-108 CO2 TOTAL (test code = 2418096905) 24 mmol/L 23-31 AGAP (test code = 3484925840) 12 2-16 BUN (test code = 2565325731) 8 mg/dL 7-23 GLUCOSE (test code = 4721219187) 121 mg/dL 70-110 H CREATININE (test code = 1635902656) 0.57 mg/dL 0.50-1.04 TOTAL BILI (test code = 0991700079) 1.0 mg/dL 0.1-1.1 CALCIUM (test code = 7952912714) 9.2 mg/dL 8.6-10.6 T PROTEIN (test code = 5252359498) 6.9 g/dL 6.3-8.2 ALBUMIN (test code = 6278097883) 4.4 g/dL 3.5-5.0 ALK PHOS (test code = 7115228502) 47 U/L 34-122 ALTv (test code = 1742-6) 16 U/L 5-35 AST(SGOT) (test code = 9155631120) 22 U/L 13-40 eGFR (test code = 4460206758) 133.9 mL/min/1.73m2 VICENTE (test code = VICENTE) Association of [...] or abnormalities in imaging tests). Lab Interpretation (test code = 54113-6) Abnormal [facility]2023-05-19 01:32:19* Test Item Value Reference Range Interpretation Comme nts LIPASE (test code = 2430526287) 67 U/L 0-220 Lab Interpretation (test cod e = 19239-2) Normal [facility] System[facility] WITH [id number] 01:20:58* Test Item Value Reference Range Interpretation Comme nts WBC (test code = 6690-2) 9.89 See_Comment [Automated [employer]] The system which generated this result transmitted reference range: 4.30 - 11.10 10*3/?L. The reference range was not used to interpret this result as normal/abnormal. RBC (test code = 789-8) 4.29 See_Comment [Automated [employer]] The system which generated this result transmitted reference range: 3.93 - 5.25 10*6/?L. The reference range was not used to interpret this result as normal/abnormal. HGB (test code = 718-7) 13.1 g/dL 11.6-15.0 HCT (test code = 4544-3) 38.3 % 35.7-45.2 MCV (test code = 787-2) 89.3 fL 80.6-95.5 MCH (test code = 785-6) 30.5 pg 25.9-32.8 MCHC (test code = 786-4) 34.2 g/dL 31.6-35.1 RDW-SD (test code = 35033-1) 38.2 fL 39.0-49.9 L RDW-CV (test code = 788-0) 11.9 % 12.0-15.5 L PLT (test code = 777-3) 177 See_Comment [Automated [employer]] The system which generated this result transmitted reference range: 166 - 358 10*3/?L. The reference range was not used to interpret this result as normal/abnormal. MPV (test code = 14231-0) 11.6 fL 9.5-12.9 NRBC/100 WBC (test code = 1193785668) 0.0 See_Comment [Automated me ssage] The system which generated this result transmitted reference range: 0.0 - 10.0 /100 WBCs. The reference range was not used to interpret this result as normal/abnormal. NRBC x10^3 (test code = 6083903841) See_Comment [Automated messa ge] The system which generated this result transmitted reference range: 10*3/?L. The reference range was not used to interpret this result as normal/abnormal. GRAN MAT (NEUT) % (test code = 770-8) 64.1 % IMM GRAN % (test code = 8461902892) 0.30 % LYMPH % (test code = 736-9) 28.1 % MONO % (test code = 5905-5) 5.8 % EOS % (test code = 713-8) 1.3 % BASO % (test code = 706-2) 0.4 % GRAN MAT x10^3(ANC) (test code = 6397908472) 6.34 10*3/uL 1.88-7.09 IMM GRAN x10^3 (test code = 9270025704) 0.03 10*3/uL 0.00-0.06 LYMPH x10^3 (test code = 731-0) 2.78 10*3/uL 1.32-3.29 MONO x10^3 (test code = 742-7) 0.57 10*3/uL 0.33-0.92 EOS x10^3 (test code = 711-2) 0.13 10*3/uL 0.03-0.39 BASO x10^3 (test code = 704-7) 0.04 10*3/uL 0.01-0.07 Lab Interpretation (test code = 81172-9) [id number]* Test Item Value Reference Range Interpretation Comme nts POCT PREG (test code = 1605) Negative On board controls acceptable with C Line (test code = 3574) Yes POCT PREG LOT # (test code = 3574) [id number] POCT PREG TEST DATE ( test code = 3576) 2024-03-19 Lab Interpretation (test cod e = 38296-9) [id number] 15:47:00* Test Item Value Reference Range Interpretation Comme nts POCT PREG (test code = 1605) Negative On board controls acceptable with C Line (test code = 3574) Yes POCT PREG LOT # (test code = 3575) POCT PREG TEST DATE ( test code = 3576) [id number] 15:47:00* Test Item Value Reference Range Interpretation Comme nts POCT PREG (test code = 1605) Negative On board controls acceptable with C Line (test code = 3574) Yes POCT PREG LOT # (test code = 3575) POCT PREG TEST DATE ( test code = 3576) [facility] Notes Date/Time Note Provider Source 2023-08-13 11:31:01 Sto3YmgLEtMpP/OedFFe superintendent colliery+eY7NYhiUUt kv2jSocpMUphxfIE54cgc6wfMwpvQFB51 04-09-011:31:01 Maylin Rivera is a 23 year old femaleovarian cysts on one or two ovaries x called to schedule appt with PGY.Please contact pt at [phone] (home) 79726-1Xxmhwgozx encounter MifmYZ4579-40-54X12:31:38Telephon e encounter NoteTXT1.2.840.173859.1.13.104.2. 7.2.068358|[id number] for patient ayhn07603-2NjnzDFEHMUCPUDRKhoyhei ed C-CDA narrative [id number] L Theis[address] AfzzAioddlfsdJenfdxjqhMZLA4981588 622MEDWANIVAPMIHZBDMTKODS6946-51- 02T11:31:381.2.840.418202.1.72.3. 15|1.2.840.988811.1.13.104.2.7.2. 727879_[id number] Avelina Johnson [facility] 2023-04-24 12:05:28 KCgPW7vfSuIKabhOw2Ux Ykzir0SnVzn4g pEKPRbwhYU4i01oED1Ue8iuAo9LL0gm89 04-05-13T12:05:28 Pt left before obtaining discharge paperwork. 51609-7Wtykjdsgo department BqgeFN9256-86-32D72:05:42[facility] NoteTXT1.2.840.780988.1.13.104.2. 7.2.413159|[id number] for patient qyls80734-9FgvgVO521386058Jtdzeqz Fief RN[address] Sc[id number] 309YFKGEOTZSRYVLBRUUWMPLV5401-85- 13T12:05:421.2.840.434686.1.72.3. 15|1.2.840.393611.1.13.104.2.7.2. 727879_[id number] Anne Hall RN [facility] 2023-04-24 10:09:17 RWf7oR5qyiiaQ5BIy6nr m8uLmFYPjXGqY JaH1ZDQ9zBwIFfEzxjHRSWcOc9qdZ0t14 04-05-13T10:09:17 Patient states "I have one positive test and one negative test for . So I just wanted to make sure."Patient here for confirmation. 68325-7Hfhmpduto department Triage qjdrNO7785-04-93P48:09:58[facility] Triage noteTXT1.2.840.522656.1.13.104.2. 7.2.302214|[id number] for patient nyjh97433-8Mvfbcdbqn department [id number] S Natalya RNUT[id number] 264IZDXSBIHYRUCZEAAOWZEZU6255-41- 13T10:09:581.2.840.833020.1.72.3. 15|1.2.840.855479.1.13.104.2.7.2. 727879_[id number] Amanda Linares Natalya RN [facility] 2023-04-08 08:38:40 inhTSGq7OOiRBcWhtlHI lnte3a/8Vkj8W 93bFmRyHMqLCwEntkyQV+4x9rzCugYU43 03-04-28T08:38:40 Spoke with patient, verbalized understanding medication is at the pharmacy. 24364-5Bmmcenbnd encounter QafnBD3801-11-84N19:40:04Telephon e encounter NoteTXT1.2.840.452706.1.13.104.2. 7.2.482068|[id number] for patient uuwa32417-5LpjgLL821660189Pyzhaq L Reid RN[id number] 303HBMXIZZKAPHYHSMAKPRECO6262-79- 28T08:40:041.2.840.390271.1.72.3. 15|1.2.840.141297.1.13.104.2.7.2. 727879_[id number] Nora Alonso RN [facility] 2023-04-04 16:31:40 HMxEue9AFDbIa4QMdi9I yglWeZaVOQPpG edHzhe66SJWeayIRnk40SjkGGGI9AsR46 03-04-24:31:40 I have sent nausea medications to the pharmacyPlease let patient know 42713-1Wjveantso encounter BjdtFQ7869-62-15T67:32:32Telephon e encounter NoteTXT1.2.840.878542.1.13.104.2. 7.2.799149|[id number] for patient tlvg51652-1FyukJAQDSPKNFP[address] OkurBffpkhwgnWuphesolwZUJN1264439 685UNXYFMYFZVWQJUYTASTEZF5006-96- 24T16:32:321.2.840.877452.1.72.3. 15|1.2.840.257803.1.13.104.2.7.2. 727879_[id number] [facility] 2023-04-01 13:30:00 SB3Pr49C1HQRbwHF7nT1 OydUVNhzHRozU Aau535YfGNz6GzY2NaYbPBV2jRlhpns52 03-04-213:30:00 Images from the original note were not included.Venipuncture collection performed by clean technique on the left anticubitus. Total of 1 attempts were made. Slight pressure and a bandage/dressing were applied to the site(s). The patient experienced no complications. The following specimens were processed according to instructions and sent to [facility] laboratories per lab order on 04/01/2023: LT BLUE SST 3 RED LAV 1 PPT DK GREEN (LiHep) DK GREEN (SodH) KRISHNAN DK BLUE (K2) DK BLUE (S) ACD Blood Culture NIPT/NTD 49956-9Hsdtl GbyyJB7026-07-50Y94:37:41Nurse NoteTXT1.2.840.342538.1.13.104.2. 7.2.527661|[id number] for patient tofu52620-2Vjipt Note[id number] 381CPTZSPONAZUXXOCSUBVDYQ4534-49- 21T13:37:411.2.840.180025.1.72.3. 15|1.2.840.903940.1.13.104.2.7.2. 727879_[id number] [facility] 2023-03-13 14:39:33 77awDr2pyroIGpKdkkMC 1juOG7jGqHnb3 rLwru9IdG6RWz1ANL3H4Ri1OKDlppdm30 03-04-02T14:39:33 Rx sent, let patient know, and to follow-up as scheduled. 16614-1Jwvgbpvwx encounter IdpfUR3655-72-95F56:39:33Telephon e encounter NoteTXT1.2.840.873721.1.13.104.2. 7.2.560008|[id number] for patient ymre01190-3NnltGSNKZRHWBX[address]TXTX[address] 851RBXSQNSJKULEKRPBUNHNMF4955-50- 02T14:39:331.2.840.644589.1.72.3. 15|1.2.840.991904.1.13.104.2.7.2. 727879_[id number] [facility] 2023-03-11 08:25:31 b0nSabLvWk6BrgJ0GBx+ YsT4PnCp2uFIl k4a2KfS0XmQMXPs1r5SHl2GSs0lF+jy20 03-03-31T08:25:31 NICOLE 02/14/23NOV 03/14/23LRD 02/14/23Routing to correct pool 20297-2Vefjheelf encounter SagjMK5785-43-73P96:26:31Telephon e encounter NoteTXT1.2.840.166305.1.13.104.2. 7.2.384086|[id number] for patient oulu44595-5VxswWDOS-MBMPGOKXCNMR- PSYCHIATRY[address] FxsfGzkngsosoWmjwaygsvVYNC7458171 156YEZHMDVXANAQVHSPTHXHVQ5164-90- 31T08:26:311.2.840.594675.1.72.3. 15|1.2.840.337492.1.13.104.2.7.2. [id number] PN-PSYCHIATRY [facility]
[2023-10-22 00:41] LABS: Absolute Basophils 0.1 K/uL (0-0.5); Absolute Eosinophils 0.4 K/uL (0-0.5); Absolute Monocytes 0.7 K/uL (0.1-1.3); Absolute Neutrophil 5.8 K/uL (1.8-8.0); Basophils % 0.8 % (0-1.3); Eosinophils % 3.6 % (0-4.4); Hematocrit 38.9 % (36.0-45.0); Hemoglobin 13.4 g/dL (12.0-15.0); Lymphocytes % 30.1 % (15.3-44.8); MCH 32.2 pg (27.0-35.0); MCHC 34.5 g/dL (32.0-36.0); MCV 93.4 fL (80-100); MPV 8.3 fL (7.6-11.3); Neutrophils % 58.5 % (41.7-73.7); Nucleated Red Blood Cells % 0.2 % (0-0); Platelets 241 thou/uL (152-406); RBC Red Blood Cell Count 4.17 M/uL (3.86-4.86); Red Cell Distribution Width 13.2 % (12.1-15.2)
[2023-10-22 00:51] LABS: Anion Gap 9.5 mEq/L (5.0-15.0); Potassium 3.5 mEq/L (3.5-5.1)
[2023-10-22 01:03] LABS: Specific Gravity 1.027 (1.005-1.030)
[2023-10-22 01:04] LABS: Specific Gravity 1.027 (1.005-1.030); Urine Bacteria <20 /HPF (<20); Urine Bilirubin NEGATIVE (Negative); Urine Blood Negative (Negative); Urine Clarity Extremely Turbid (Clear); Urine Color Yellow (Yellow); Urine Glucose NEGATIVE (Negative); Urine Mucus Slight /HPF (None Seen); Urine Protein TRACE (Negative); Urine RBC <5 /HPF (None Seen); Urine Urobilinogen 1+ (Normal); Urine pH 5.5 (5.0-7.0)
--- NOTE | 2023-10-22 01:17 | ER ---
Nurse's Notes [facility] Name: Maylin Zuniga Age: 23 yrs Sex: Female : 2000 Arrival Date: 10/21/2023 Time: 23:32 Bed 7 Private MD: CITLALI OLIVIER Diagnosis: Encounter for supervision of normal first , first trimester Presentation: 10/20 23:39 Chief complaint: Patient states: I DID A TEST AND IT WAS POSITIVE. I FEEL ha1 NAUSEA AND ABDOMINAL CRAMPING. 23:39 Coronavirus screen: Vaccine status: Patient reports receiving the 1st dose of the Covid ha1 vaccine. [employer]. Ebola Screen: No symptoms or risks identified at this time. Initial Sepsis Screen: Does the patient meet any 2 criteria? No. Patient's initial sepsis screen is negative. Does the patient have a suspected source of infection? No. Patient's initial sepsis screen is negative. Risk Assessment: Do you want to hurt yourself or someone else? Patient reports no desire to harm self or others. Onset of symptoms was October 22, 2023. 23:39 Method Of Arrival: Ambulatory ha1 23:39 Acuity: VINNY 3 ha1 Triage Assessment: 23:39 General: Appears comfortable, Behavior is calm, cooperative. Pain: Complains of pain in ha1 pelvis Pain does not radiate. Pain currently is 4 out of 10 on a pain scale. Quality of pain is described as crampy, Pain began gradually, 1 day ago. Neuro: Level of Consciousness is awake, alert, obeys commands, Oriented to person, place, time, situation. Cardiovascular: Patient's skin is warm and dry. Respiratory: Airway is patent Respiratory effort is even, unlabored, Respiratory pattern is regular, symmetrical. GI: Abdomen is flat, non-distended, Bowel sounds present X 4 quads. Reports cramping, nausea, vomiting. : Reports POSITIVE TEST. Derm: Skin is pink, warm \T\ dry. Musculoskeletal: Circulation, motion, and sensation intact. Range of motion: intact in all extremities. 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 - Social history:: Smoking status: Reported history of juuling and/or vaping. Screenin/11 23:39 Abuse screen: Denies threats or abuse. Denies injuries from another. Nutritional ha1 screening: No deficits noted. Tuberculosis screening: No symptoms or risk factors identified. 23:45 [facility] ED Fall Risk Assessment (Adult) History of falling in the last 3 months, j7 including since admission No falls in past 3 months (0 pts) Confusion or Disorientation No (0 pts) Intoxicated or Sedated No (0 pts) Impaired Gait No (0 pts) Mobility Assist Device Used No (0 pt) Altered Elimination No (0 pt) Score/Fall Risk Level 0 - 2 = Low Risk Oriented to surroundings, Maintained a safe environment, Educated pt \T\ family on fall prevention, incl call for assistance when getting out of bed. Assessment: 23:39 Reassessment: SEE TRIAGE ASSESSMENT. ha1 10/21 00:40 Reassessment: Patient and/or family updated on plan of care and expected duration. Pain ha1 level reassessed. Patient is alert, oriented x 3, equal unlabored respirations, skin warm/dry/pink. ULTRASOUND BEING COMPLETED. Vital Signs: 10/20 23:39 BP 141 / 93; Pulse 83; Resp 17 S; Temp 98.1; Pulse Ox 100% on R/A; Weight 61.23 kg; ha1 10/21 00:30 BP 145 / 81; Pulse 68; Resp 17; Pulse Ox 100% ; Pain 0/10; jj7 10/21 00:30 Pain Scale: Adult 7 ED Course: 10/20 23:36 Patient arrived in ED. es 23:36 Misa Gallardo PA-C is PHCP. sb4 23:36 Marco Gonzalez MD is Attending Physician. sb4 23:39 Arm band placed on right wrist. ha1 23:39 Patient has correct armband on for positive identification. Placed in gown. Bed in low ha1 position. Call light in reach. Side rails up X 1. 23:45 Inserted saline lock: 20 gauge in right antecubital area, using aseptic technique. jj7 Blood collected. 23:51 CITLALI OLIVIER is Private Physician. 03 00:01 Triage completed. ha1 01:44 Sushant Peng, RN is Primary Nurse. jj7 01:45 No provider procedures requiring assistance completed. IV discontinued, intact, jj7 bleeding controlled, No redness/swelling at site. Pressure dressing applied. Administered Medications: No medications were administered Medication: 10/20 23:45 VIS not applicable for this client. jj7 Outcome: 10/21 01:16 Discharge ordered by . sb4 01:45 Discharged to home ambulatory, jj7 01:45 Condition: good 01:45 Discharge instructions given to patient, Instructed on discharge instructions, follow up and referral plans. Demonstrated understanding of instructions, follow-up care, 01:50 Patient left the ED. jj7 Signatures: Cassie Fuentes Heidy, RN RN ha1 Sushant Peng RN RN annjMisa Devries, PA-C PA-C sb4 Corrections: (The following items were deleted from the chart) 01:03 00:40 Reassessment: Patient and/or family updated on plan of care and expected ha1 duration. Pain level reassessed. Patient is alert, oriented x 3, equal unlabored respirations, skin warm/dry/pink. ha1
--- NOTE | 2023-10-22 01:17 | EDPHYS ---
Physician Documentation [facility] Name: Maylin Zuniga Age: 23 yrs Sex: Female : 2000 Arrival Date: 10/21/2023 Time: 23:32 Bed 7 Private MD: CITLALI OLIVIER ED Physician Marco Gonzalez HPI: 10/20 23:43 This 23 yrs old Female presents to ER via Unassigned with complaints of sb4 Nausea, Abdominal Pain. 23:43 patient reports abdominal cramping, nausea, and spotting that began yesterday. denies sb4 urinary symptoms. states she took an at home test [employer] COUNTER [employer]ERSON and it was positive. wanted to make sure she wasn't miscarrying. 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 - Social history:: Smoking status: Reported history of juuling and/or vaping. ROS: 10/20 23:43 Constitutional: Negative for fever, chills, and weight loss, sb4 Abdomen/GI: Positive for nausea, abdominal cramps, : Positive for vaginal bleeding, missed period, All other systems are negative, Exam: 23:43 Constitutional: This is a well developed, well nourished patient who is awake, alert, sb4 and in no acute distress. Head/Face: Normocephalic, atraumatic. Eyes: Extra-ocular motions intact. Periorbital areas with no swelling, redness, or edema. ENT: Mucous membranes moist. Cardiovascular: Regular rate and rhythm with a normal S1 and S2. Respiratory: Lungs have equal breath sounds bilaterally, clear to auscultation and percussion. No rales, rhonchi or wheezes noted. No increased work of breathing, no retractions or nasal flaring. Abdomen/GI: Soft, non-tender, no distension. Skin: Warm, dry with normal turgor. Normal color with no rashes, no lesions, and no evidence of cellulitis. MS/ Extremity: Pulses equal, no cyanosis. Neurovascular intact. Full, normal range of motion. Neuro: Awake and alert, GCS 15, oriented to person, place, time, and situation. Motor strength 5/5 in all extremities. Sensory grossly intact. Vital Signs: 23:39 BP 141 / 93; Pulse 83; Resp 17 S; Temp 98.1; Pulse Ox 100% on R/A; Weight 61.23 kg; ha1 10/21 00:30 BP 145 / 81; Pulse 68; Resp 17; Pulse Ox 100% ; Pain 0/10; jj7 10/21 00:30 Pain Scale: Adult jj7 MDM: 10/20 23:38 Patient medically screened. sb4 10/21 01:15 Data reviewed: vital signs, nurses notes, lab test result(s), radiologic studies, and sb4 as a result, I will discharge patient. Counseling: I had a detailed discussion with the patient and/or guardian regarding the historical points, exam findings, and any diagnostic results supporting the discharge/admit diagnosis, lab results, radiology results, the need for outpatient follow up, an OB/Gyne specialist, to return to the emergency department if symptoms worsen or persist or if there are any questions or concerns that arise at home. 10/20 23:43 Order name: Abo/rh Typing sb4 10/20 23:43 Order name: CBC with Diff sb4 10/21 00:48 Order name: CBC with Automated Diff; Complete Time: 00:50 EDMS 10/21 00:52 Order name: Basic Metabolic Panel; Complete Time: 00:56 EDMS 10/21 00:52 Order name: HCG, Quantitative; Complete Time: 00:56 EDNH 10/21 01:03 Order name: Test, Urine; Complete Time: 01:07 EDMS 10/21 01:05 Order name: Urinalysis w/ reflexes; Complete Time: 01:07 EDMS 10/21 01:18 Order name: ABO/RH typing; Complete Time: 01:22 EDNH 10/20 23:43 Order name: US Transvaginal Ob sb4 10/20 23:43 Order name: IV Saline Lock; Complete Time: 00:18 sb4 10/20 23:43 Order name: Labs collected and sent; Complete Time: 00:18 sb4 Administered Medications: No medications were administered Disposition: 03:58 Co-signature as Attending Physician, Marco Gonzalez MD I agree with the assessment sp4 and plan of care. I reviewed the patient's care provided by the Advanced Practice Provider and agree with the diagnosis and treatment plan. Disposition Summary: 10/22/23 01:16 Discharge Ordered Notes: Location: Home sb4 Problem: new sb4 Symptoms: are unchanged sb4 Condition: Stable sb4 Diagnosis - Encounter for supervision of normal first , first trimester sb4 Followup: sb4 - With: Private Physician - When: 1 week - Reason: Further diagnostic work-up, Recheck today's complaints, Re-evaluation by your physician Discharge Instructions: - Discharge Summary Sheet sb4 - Care sb4 - First Trimester of , Udlj-io-Nqjk sb4 Forms: - Thank You Letter sb4 - Patient Portal Instructions sb4 - Leadership Thank You Letter sb4 Signatures: Dispatcher [employer] Kaylee Martinez, BILLIE RN ha1 Misa Gallardo, PA-C PA-C sb4 Marco Gonzalez MD MD sp4
[2023-10-22 02:17] VITALS: BP 145/81; TEMP 98.1; O2SAT 100
--- NOTE | 2023-10-22 15:33 | RAD REPORT ---
EXAM DESCRIPTION: US - TRANSVAG OB - 10/22/2023 1:15 am CLINICAL HISTORY: Abd pain COMPARISON: None TECHNIQUE: The exam was performed via transabdominal and transvaginal approach. Result: UTERUS: The uterus measures 7.9 cm longitudinally. The endometrium measures approximately 9 mm in thickness GESTATION: No intrauterine gestational sac is visualized. OVARIES & ADNEXA: The right ovary measures 4.9 x 3.3 x 4.2 cm. There is a 2.8 cm cyst in the right ov jeremy The left ovary measures 3.7 x 2.2 x 2 cm. Both ovaries demonstrate vascular flow. No suspicious adnexal masses are seen. PELVIS: Small amount of fluid in the pelvic cul-de-sac. IMPRESSION: No intrauterine gestation is visualized. No suspicious adnexal masses. Nonspecific fluid in the pelvic cul-de-sac. Ectopic cannot be excluded but there are no suspicious secondary signs. 2.8 cm right ovarian cyst which may represent corpus luteum cyst. Consider follow-up with serial quantitative beta-hCG and ultrasound. Electronically signed by: Jaiden Navarrete MD 10/22/2023 01:56 AM CDT Due to temporary technical issues with the PACS/Fluency reporting system, reports are being signed by the in house Radiologist without review as a courtesy to ensure prompt reporting. The interpreting r adiologist is fully responsible for the content of the report.
== END 2023-10-22 01:50 | disposition home or self-care (01) ==
LOC: ER 23:32
DX: Z34.01 Encounter for supervision of normal first pregnancy, first trimester (principal)
CPT/HCPCS: 76813; 99283

== ENCOUNTER → 2023-10-26 | Emergency (ER) | payer OTHER ==
--- OUTSIDE RECORDS SUMMARY | 2023-10-26 11:41 | XMS REPORT | Continuity of Care Document ---
Author Name Unknown Address [address] [place] [address] [facility] [address] [place] [address] Care Team Providers Care Core Blower Operator Name Role Phone Eliza Heller Primary Care Physician + [phone] LESLIE CASTELLANOS Attending Clinician Unavail able NACHO LUCAS Attending Clinician Unavailable Nacho Lucas MD Attending Clinician [phone] Pgy3 Attending Clinician Unavailable SYDNEY LUBIN Attending Clinician Unavailable BRUNA ARRINGTON Attending Clinician Unavailable BRUNA ARRINGTON Attending Clinician Unavailable Doctor Unassigned, [place]it Attending Clinician U navailable Pgy2 Attending Clinician Unavailable Sydney Lubin MD Attending Clinician [phone] Gretchen Cao Attending Clinician [phone] ELIZA BOWERS Attending Clinician Unavailable RAHEL GRANT Attending Clinician Unavailable Rahel Aguilar Attending Clinician [phone] Eliza Heller Attending Clinician [phone], [facility] Attending Clinician Unavailable Emanuel NAGEL Leslie Curry Attending Clinician + YAW LEIVA Attending Clinician Unavailable Yaw Leiva DO Attending Clinician [phone] Nurse, [facility] Attending Clinician Un available Unknown, Attending Attending Clinician Unavailab le UNKNOWN, ATTENDING Attending Clinician Unavailab BAILEE Vivar Attending Clinician Unavailable Carla Franklin CNM Attending Clinician [phone] CARLA FRANKLIN Attending Clinician Unavaila ble Provider, [facility] Temp Attending Clinician Erica vailable ROSALES CHAPIN Attending Clinician UnavailROSALES Mark[place] Attending Clinician UnavailROSALES Helm Attending Clinician Unavailradha Barrientos MILLINERY WORKER, Jacob Love Attending Clinician [phone] JACOB BARRIENTOS Attending Clinician Unavailab le Visit, [facility] Nurse Attending Clinician Unava ilable ALIVIA ERNANDEZ Attending Clinician Unavaila rupa Ernandez MILLINERY WORKER, Alivia Liriano Attending Clinician [phone] CINDY MENDIOLA Attending Clinician Unavailradha Jones RN, Rayne Godoy Attending Clinician Unavailab NI Mckeon Attending Clinician Unavailable Joel Matt DO Attending Clinician [phone] Alysia MILLINERY WORKERElena Attending Clinician [phone] Provider, [facility] Attending Clinician Un available ELENA HATFIELD Attending Clinician Unavailable Fletcher Ramesh MD Attending Clinician [phone] Frank WISE, Ethel Attending Clinician Erica vailable Radha_P Attending Clinician Unavailable Alvin Nobles Attending Clinician [phone] YAW LEIVA Admitting Clinician Unavailable Katarina Admitting Clinician Unavailable Payers Payer Name Policy Type Policy Number Effective Date Expirati on Date Source [place] [id number] 2023 00:00:00 MEDICAID GENERIC [id number] 2023 00:00:00 [facility] [id number] 2020 00:00:00 [facility] [id number] 2019 00:00:00 Problems Condition Name Condition Details Condition Category Status Onset Date Resolution Date Last Treatment Date Treating Clinician Comments Source Chlamydia trachomati s infection of lower genitourin jeremy sites Chlamydia trachomati s infection of lower genitourin jeremy sites Disease Active 2- 00:00: 00 [facility] Need for prophylact ic vaccinatio n and inoculatio n against influenza Need for prophylact ic vaccinatio n and inoculatio n against influenza Disease Active 11-02 00:00: 00 [facility] Feeling sad Feeling sad Disease Active 12-30 00:00: 00 [facility] Encounter for other general counseling or advice on contracept ion Encounter for other general counseling or advice on contracept ion Disease Active 12-16 00:00: 00 [facility] Absence of menstruati on Absence of menstruati on Disease Active 11-02 00:00: 00 [facility] Breast tenderness in female Breast tenderness in female Disease Active 11-02 00:00: 00 [facility] Class 1 obesity due to excess calories with serious comorbidit y and body mass index (BMI) of 34.0 to 34.9 in adult Class 1 obesity due to excess calories with serious comorbidit y and body mass index (BMI) of 34.0 to 34.9 in adult Disease Active 11-02 00:00: 00 [facility] BMI 34.0-34.9, adult BMI 34.0-34.9, adult Disease Active 11-02 00:00: 00 [facility] Elevated blood pressure reading without diagnosis of hypertensi on Elevated blood pressure reading without diagnosis of hypertensi on Disease Active 10-02 00:00: 00 [facility] Other depression Other depression Disease Active - 00:00: 00 [facility] Nexplanon removal Nexplanon removal Disease Active 08-20 00:00: 00 [facility] Screening examinatio n for STD (sexually transmitte d disease) Screening examinatio n for STD (sexually transmitte d disease) Disease Active 08-20 00:00: 00 [facility] BMI 27.0-27.9, adult BMI 27.0-27.9, adult Disease Active 2018-08 0 00:00: 00 [facility] BMI 29.0-29.9, adult BMI 29.0-29.9, adult Disease Active 2018-08 00:00: 00 [facility] HPV vaccine counseling HPV vaccine counseling Disease Active 2018-08 00:00: 00 [facility] Over weight Over weight Disease Active 2018-08 00:00: 00 [facility] Lump or mass in breast Lump or mass in breast Disease Active 11-22 00:00: 00 [facility] Allergies, Adverse Reactions, Alerts Allergy Name Allergy Type Status Severity Reaction(s) Onset Date Inactive Date Treating Clinician Comments Source NO KNOWN ALLERGIE S Drug Class Active [facility] Social History Social Habit Start Date Stop Date Quantity Comments Source Gender identity [facility] Sexual orientation U [facility] Alcohol intake 2023-08-20 00:00:00 2023-08-20 00:00:00 Current drinker of alcohol (finding) [facility] History of Social function 2023-02-14 00:00:00 2023-02-14 00:00:00 [facility] Exposure to SARS-CoV-2 (event) 2022-12-24 00:00:00 2023-01-03 09:29:00 Not sure [facility] History SDOH Alcohol Frequency 2023-01-01 00:00:00 2023-01-01 00:00:00 1 [facility] History SDOH Alcohol Std Drinks 2023-01-01 00:00:00 2023-01-01 00:00:00 0 [facility] History SDOH Alcohol Binge 2023-01-01 00:00:00 2023-01-01 00:00:00 1 [facility] History SDOH Social Connections Phone 2023-01-01 00:00:00 2023-01-01 00:00:00 4 [facility] History SDOH Social Connections Get Together 2023-01-01 00:00:00 2023-01-01 00:00:00 2 [facility] History SDOH Social Connections Christian 2023-01-01 00:00:00 2023-01-01 00:00:00 3 [facility] SDOH Social Connections Membership 2023-01-01 00:00:00 2023-01-01 00:00:00 2 [facility] SDOH Social Connections Meetings 2023-01-01 00:00:00 2023-01-01 00:00:00 1 [facility] SDOH Social Connections Living 2023-01-01 00:00:00 2023-01-01 00:00:00 7 [facility] SDOH Physical Activity DPW 2023-01-01 00:00:00 2023-01-01 00:00:00 1 [facility] SDOH Physical Activity MPS 2023-01-01 00:00:00 2023-01-01 00:00:00 3 [facility] History SDOH Stress 2023-01-01 00:00:00 2023-01-01 00:00:00 5 [facility] History SDOH Financial 2023-01-01 00:00:00 2023-01-01 00:00:00 4 [facility] History SDOH Food Worry 2023-01-01 00:00:00 2023-01-01 00:00:00 1 [facility] History SDOH Food Scarcity 2023-01-01 00:00:00 2023-01-01 00:00:00 2 [facility] History SDOH Transport Med 2023-01-01 00:00:00 2023-01-01 00:00:00 2 [facility] History SDOH Transport Non-Med 2023-01-01 00:00:00 2023-01-01 00:00:00 2 [facility] History SDOH Housing Unable to Pay 2023-01-01 00:00:00 2023-01-01 00:00:00 2 [facility] History SDOH Housing Places Lived 2023-01-01 00:00:2023-01-01 00:00:00 1 [facility] History SDOH Housing Homeless Last Year 2023-01-01 00:00:00 2023-01-01 00:00:00 2 [facility] Tobacco use and exposure 2022-12-27 00:00:00 2022-12-27 00:00:00 Smokeless tobacco non-user [facility] Alcohol Comment 2021-11-02 00:00:00 2021-11-02 00:00:00 social [facility] Sex Assigned At 2001 00:00:00 2000 00:00:00 [facility] Smoking Status Start Date Stop Date Source Never smoked tobacco [facility] Medications Ordered Medication Name Filled Medication Name Start Date Stop Date Current Medication? Ordering Clinician Indication Dosage Frequency Signature (SIG) Comments Components Source ondansetron 4 mg tablet 08-20 00:00: 00 Yes [id number] 4mg Take 1 tablet by mouth every 8 (eight) hours as needed for Nausea and Vomiting (N/V). [facility] ondansetron 4 mg tablet 08-20 00:00: 00 Yes [id number] 4mg Take 1 tablet by mouth every 8 (eight) hours as needed for Nausea and Vomiting (N/V). [facility] ondansetron 4 mg tablet 08-20 00:00: 00 Yes [id number] 4mg Take 1 tablet by mouth every 8 (eight) hours as needed for Nausea and Vomiting (N/V). [facility] ondansetron 4 mg tablet 0 08-20 00:00: 00 Yes [id number] 4mg Take 1 tablet by mouth every 8 (eight) hours as needed for Nausea and Vomiting (N/V). [facility] ondansetron 4 mg tablet 2023-0 08-20 00:00: 00 Yes [id number] 4mg Take 1 tablet by mouth every 8 (eight) hours as needed for Nausea and Vomiting (N/V). [facility] ondansetron 4 mg tablet 40 08-20 00:00: 00 Yes [id number] 4mg Take 1 tablet by mouth every 8 (eight) hours as needed for Nausea and Vomiting (N/V). [facility] omeprazole 40 mg capsule 3-0 04-18 00:00: 00 Yes [id number] 40mg Take 1 capsule by mouth in the morning. [facility] omeprazole 40 mg capsule 2022-0 04-18 00:00: 00 Yes [id number] 40mg Take 1 capsule by mouth in the morning. [facility] omeprazole 40 mg capsule 2022-0 04-18 00:00: 00 Yes [id number] 40mg Take 1 capsule by mouth in the morning. [facility] omeprazole 40 mg capsule 2022-0 04-18 00:00: 00 Yes [id number] 40mg Take 1 capsule by mouth in the morning. [facility] omeprazole 40 mg capsule 2022-0 04-18 00:00: 00 Yes [id number] 40mg Take 1 capsule by mouth in the morning. [facility] omeprazole 40 mg capsule 2022-0 04-18 00:00: 00 Yes [id number] 40mg Take 1 capsule by mouth in the morning. [facility] omeprazole 40 mg capsule 2022-0 04-18 00:00: 00 Yes [id number] 40mg Take 1 capsule by mouth in the morning. [facility] omeprazole 40 mg capsule 2022-0 04-18 00:00: 00 Yes [id number] 40mg Take 1 capsule by mouth in the morning. [facility] omeprazole 40 mg capsule 3-0 04-18 00:00: 00 Yes [id number] 40mg Take 1 capsule by mouth in the morning. [facility] omeprazole 40 mg capsule 3-0 04-18 00:00: 00 Yes [id number] 40mg Take 1 capsule by mouth in the morning. [facility] ondansetron 8 mg tablet 2022-0 824 00:00: 00 Yes [id number] 8mg Take 1 tablet by mouth every 8 (eight) hours as needed for Nausea and Vomiting (N/V). [facility] ondansetron 8 mg tablet 2022-0 8-24 00:00: 00 Yes [id number] 8mg Take 1 tablet by mouth every 8 (eight) hours as needed for Nausea and Vomiting (N/V). [facility] ondansetron 8 mg tablet 3-0 8-24 00:00: 00 Yes [id number] 8mg Take 1 tablet by mouth every 8 (eight) hours as needed for Nausea and Vomiting (N/V). [facility] ondansetron 8 mg tablet 2023-0 8-24 00:00: 00 Yes [id number] 8mg Take 1 tablet by mouth every 8 (eight) hours as needed for Nausea and Vomiting (N/V). [facility] ondansetron 8 mg tablet 3-0 8-24 00:00: 00 Yes [id number] 8mg Take 1 tablet by mouth every 8 (eight) hours as needed for Nausea and Vomiting (N/V). [facility] ondansetron 8 mg tablet 3-0 8-24 00:00: 00 Yes [id number] 8mg Take 1 tablet by mouth every 8 (eight) hours as needed for Nausea and Vomiting (N/V). [facility] ondansetron 8 mg tablet 3-0 8-24 00:00: 00 Yes [id number] 8mg Take 1 tablet by mouth every 8 (eight) hours as needed for Nausea and Vomiting (N/V). [facility] ondansetron 8 mg tablet 3-0 8-24 00:00: 00 Yes [id number] 8mg Take 1 tablet by mouth every 8 (eight) hours as needed for Nausea and Vomiting (N/V). [facility] ondansetron 8 mg tablet 3-0 8-24 00:00: 00 Yes [id number] 8mg Take 1 tablet by mouth every 8 (eight) hours as needed for Nausea and Vomiting (N/V). [facility] ondansetron 8 mg tablet 2023-0 8-24 00:00: 00 Yes [id number] 8mg Take 1 tablet by mouth every 8 (eight) hours as needed for Nausea and Vomiting (N/V). [facility] ondansetron 8 mg tablet 2023-0 8-24 00:00: 00 Yes [id number] 8mg Take 1 tablet by mouth every 8 (eight) hours as needed for Nausea and Vomiting (N/V). [facility] omeprazole 40 mg capsule 2022-0 8- 00:00: 00 Yes [id number] 40mg Take 1 capsule by mouth in the morning. [facility] omeprazole 40 mg capsule 2022-0 8- 00:00: 00 Yes [id number] 40mg Take 1 capsule by mouth in the morning. [facility] omeprazole 40 mg capsule 2022-0 8- 00:00: 00 Yes [id number] 40mg Take 1 capsule by mouth in the morning. [facility] omeprazole 40 mg capsule 2022-0 8- 00:00: 00 Yes [id number] 40mg Take 1 capsule by mouth in the morning. [facility] omeprazole 40 mg capsule 0 8 00:00: 00 Yes [id number] 40mg Take 1 capsule by mouth in the morning. [facility] omeprazole 40 mg capsule 0 04-01 00:00: 00 04-18 00:00 :00 No [id number] 40mg Take 1 capsule by mouth in the morning. [facility] omeprazole 40 mg capsule 0 04-01 00:00: 00 04-18 00:00 :00 No [id number] 40mg Take 1 capsule by mouth in the morning. [facility] VENLAFAXINE XR 37.5 mg 24 hr capsule 2022-0 03-13 00:00: 00 Yes [id number] 37.5mg TAKE 1 CAPSULE BY MOUTH DAILY WITH BREAKFAST. [facility] VENLAFAXINE XR 37.5 mg 24 hr capsule 2022-0 8- 00:00: 00 Yes [id number] 37.5mg TAKE 1 CAPSULE BY MOUTH DAILY WITH BREAKFAST. [facility] VENLAFAXINE XR 37.5 mg 24 hr capsule 2022-0 8- 00:00: 00 Yes [id number] 37.5mg TAKE 1 CAPSULE BY MOUTH DAILY WITH BREAKFAST. [facility] VENLAFAXINE XR 37.5 mg 24 hr capsule 2023-0 8- 00:00: 00 Yes [id number] 37.5mg TAKE 1 CAPSULE BY MOUTH DAILY WITH BREAKFAST. [facility] VENLAFAXINE XR 37.5 mg 24 hr capsule 3-0 8- 00:00: 00 Yes [id number] 37.5mg TAKE 1 CAPSULE BY MOUTH DAILY WITH BREAKFAST. [facility] VENLAFAXINE XR 37.5 mg 24 hr capsule 3-0 8- 00:00: 00 Yes [id number] 37.5mg TAKE 1 CAPSULE BY MOUTH DAILY WITH BREAKFAST. [facility] VENLAFAXINE XR 37.5 mg 24 hr capsule 3-0 8- 00:00: 00 Yes [id number] 37.5mg TAKE 1 CAPSULE BY MOUTH DAILY WITH BREAKFAST. [facility] VENLAFAXINE XR 37.5 mg 24 hr capsule 3-0 8- 00:00: 00 Yes [id number] 37.5mg TAKE 1 CAPSULE BY MOUTH DAILY WITH BREAKFAST. [facility] VENLAFAXINE XR 37.5 mg 24 hr capsule 3-0 8- 00:00: 00 Yes [id number] 37.5mg TAKE 1 CAPSULE BY MOUTH DAILY WITH BREAKFAST. [facility] VENLAFAXINE XR 37.5 mg 24 hr capsule 3-0 8- 00:00: 00 Yes [id number] 37.5mg TAKE 1 CAPSULE BY MOUTH DAILY WITH BREAKFAST. [facility] VENLAFAXINE XR 37.5 mg 24 hr capsule 3-0 8- 00:00: 00 Yes [id number] 37.5mg TAKE 1 CAPSULE BY MOUTH DAILY WITH BREAKFAST. [facility] VENLAFAXINE XR 37.5 mg 24 hr capsule 3-0 8- 00:00: 00 Yes [id number] 37.5mg TAKE 1 CAPSULE BY MOUTH DAILY WITH BREAKFAST. [facility] VENLAFAXINE XR 37.5 mg 24 hr capsule 3-0 8- 00:00: 00 Yes [id number] 37.5mg TAKE 1 CAPSULE BY MOUTH DAILY WITH BREAKFAST. [facility] VENLAFAXINE XR 37.5 mg 24 hr capsule 3-0 8- 00:00: 00 Yes [id number] 37.5mg TAKE 1 CAPSULE BY MOUTH DAILY WITH BREAKFAST. [facility] VENLAFAXINE XR 37.5 mg 24 hr capsule 3-0 8- 00:00: 00 Yes [id number] 37.5mg TAKE 1 CAPSULE BY MOUTH DAILY WITH BREAKFAST. [facility] VENLAFAXINE XR 37.5 mg 24 hr capsule 2022-0 8 00:00: 00 Yes [id number] 37.5mg TAKE 1 CAPSULE BY MOUTH DAILY WITH BREAKFAST. [facility] venlafaxine XR 37.5 mg 24 hr capsule 2022-0 7 00:00: 00 Yes [id number] 37.5mg Take 1 capsule by mouth daily with breakfast. [facility] venlafaxine XR 37.5 mg 24 hr capsule 2022-0 7 00:00: 00 Yes [id number] 37.5mg Take 1 capsule by mouth daily with breakfast. [facility] venlafaxine XR 37.5 mg 24 hr capsule 0 706 00:00: 00 03-13 00:00 :00 No [id number] 37.5mg Take 1 capsule by mouth daily with breakfast. [facility] SERTraline 25 mg tablet 3-0 5-25 00:00: 00 Yes [id number] 25mg Take 1 tablet by mouth in the morning. [facility] SERTraline 25 mg tablet 2022-0 5-25 00:00: 00 Yes [id number] 25mg Take 1 tablet by mouth in the morning. [facility] SERTraline 25 mg tablet 3-0 5-25 00:00: 00 Yes [id number] 25mg Take 1 tablet by mouth in the morning. [facility] SERTraline 25 mg tablet 3-0 5-25 00:00: 00 Yes [id number] 25mg Take 1 tablet by mouth in the morning. [facility] SERTraline 25 mg tablet 3-0 5-25 00:00: 00 Yes [id number] 25mg Take 1 tablet by mouth in the morning. [facility] SERTraline 25 mg tablet 3-0 5-25 00:00: 00 Yes [id number] 25mg Take 1 tablet by mouth in the morning. [facility] SERTraline 25 mg tablet 2022-0 5-25 00:00: 00 Yes [id number] 25mg Take 1 tablet by mouth in the morning. [facility] SERTraline 25 mg tablet 2022-0 5-25 00:00: 00 02-14 00:00 :00 No [id number] 25mg Take 1 tablet by mouth in the morning. [facility] SERTraline 25 mg tablet 2022-0 5-25 00:00: 00 02-14 00:00 :00 No [id number] 25mg Take 1 tablet by mouth in the morning. [facility] naproxen (NAPROSYN) 500 mg tablet 0 5-25 00:00: 00 01-14 04:59 :00 No [id number] 500mg Take 1 tablet by mouth in the morning and 1 tablet in the evening. Take with meals. Do all this for 10 days. [facility] naproxen (NAPROSYN) 500 mg tablet 2022-0 5-25 00:00: 00 01-14 04:59 :00 No [id number] 500mg Take 1 tablet by mouth in the morning and 1 tablet in the evening. Take with meals. Do all this for 10 days. [facility] naproxen (NAPROSYN) 500 mg tablet 2022-0 5-25 00:00: 00 01-14 04:59 :00 No [id number] 500mg Take 1 tablet by mouth in the morning and 1 tablet in the evening. Take with meals. Do all this for 10 days. [facility] naproxen (NAPROSYN) 500 mg tablet 2022-0 5-25 00:00: 00 01-14 04:59 :00 No [id number] 500mg Take 1 tablet by mouth in the morning and 1 tablet in the evening. Take with meals. Do all this for 10 days. [facility] naproxen (NAPROSYN) 500 mg tablet 2022-0 5-25 00:00: 00 01-14 04:59 :00 No [id number] 500mg Take 1 tablet by mouth in the morning and 1 tablet in the evening. Take with meals. Do all this for 10 days. [facility] naproxen (NAPROSYN) 500 mg tablet 01-03 00:00: 00 01-14 04:59 :00 No [id number] 500mg Take 1 tablet by mouth in the morning and 1 tablet in the evening. Take with meals. Do all this for 10 days. [facility] naproxen (NAPROSYN) 500 mg tablet 01-03 00:00: 00 01-14 04:59 :00 No [id number] 500mg Take 1 tablet by mouth in the morning and 1 tablet in the evening. Take with meals. Do all this for 10 days. [facility] iopamidol (ISOVUE 370-500 mL) injection 100 mL 12-28 03:00: 00 12-28 03:00 :00 No [id number] 100mL 100 mL, Intravenou s, ONCE, 1 dose, On [place] 12/27/22 at 2200, Routine [facility] norelgestro min-ethinyl estradiol (XULANE) 150-35 mcg/24 hr patch 12-20 00:00: 00 Yes [id number] 1{patch } Apply 1 Patch to skin weekly. [facility] norelgestro min-ethinyl estradiol (XULANE) 150-35 mcg/24 hr patch 12-20 00:00: 00 Yes [id number] 1{patch } Apply 1 Patch to skin weekly. [facility] norelgestro min-ethinyl estradiol (XULANE) 150-35 mcg/24 hr patch 12-20 00:00: 00 Yes [id number] 1{patch } Apply 1 Patch to skin weekly. [facility] norelgestro min-ethinyl estradiol (XULANE) 150-35 mcg/24 hr patch 12-20 00:00: 00 Yes [id number] 1{patch } Apply 1 Patch to skin weekly. [facility] norelgestro min-ethinyl estradiol (XULANE) 150-35 mcg/24 hr patch 2022-0 5-11 00:00: 00 Yes [id number] 1{patch } Apply 1 Patch to skin weekly. [facility] norelgestro min-ethinyl estradiol (XULANE) 150-35 mcg/24 hr patch 2022-0 5-11 00:00: 00 01-03 00:00 :00 No [id number] 1{patch } Apply 1 Patch to skin weekly. [facility] norelgestro min-ethinyl estradiol (XULANE) 150-35 mcg/24 hr patch 5-11 00:00: 00 01-03 00:00 :00 No [id number] 1{patch } Apply 1 Patch to skin weekly. [facility] doxycycline hyclate 100 mg capsule 2-13 00:00: 00 10-02 05:59 :00 No [id number] 100mg Take 1 capsule by mouth every 12 (twelve) hours for 7 days. [facility] norelgestro min-ethinyl estradiol 150-35 mcg/24 hr patch 0 2-10 00:00: 00 Yes [id number] 1{patch } Apply 1 Patch to skin weekly. [facility] norelgestro min-ethinyl estradiol 150-35 mcg/24 hr patch 0 2-10 00:00: 00 Yes [id number] 1{patch } Apply 1 Patch to skin weekly. [facility] norelgestro min-ethinyl estradiol 150-35 mcg/24 hr patch 2022-0 2-10 00:00: 00 Yes [id number] 1{patch } Apply 1 Patch to skin weekly. [facility] norelgestro min-ethinyl estradiol 150-35 mcg/24 hr patch 2022-0 2-10 00:00: 00 Yes [id number] 1{patch } Apply 1 Patch to skin weekly. [facility] norelgestro min-ethinyl estradiol 150-35 mcg/24 hr patch 2022-0 2-10 00:00: 00 Yes [id number] 1{patch } Apply 1 Patch to skin weekly. [facility] norelgestro min-ethinyl estradiol 150-35 mcg/24 hr patch 2022-0 2-10 00:00: 00 Yes [id number] 1{patch } Apply 1 Patch to skin weekly. [facility] norelgestro min-ethinyl estradiol 150-35 mcg/24 hr patch 2022-0 2-10 00:00: 00 Yes [id number] 1{patch } Apply 1 Patch to skin weekly. [facility] norelgestro min-ethinyl estradiol 150-35 mcg/24 hr patch 2022-0 2-10 00:00: 00 Yes [id number] 1{patch } Apply 1 Patch to skin weekly. [facility] norelgestro min-ethinyl estradiol 150-35 mcg/24 hr patch 2022-0 2-10 00:00: 00 Yes [id number] 1{patch } Apply 1 Patch to skin weekly. [facility] norelgestro min-ethinyl estradiol 150-35 mcg/24 hr patch 2022-0 2-10 00:00: 00 Yes [id number] 1{patch } Apply 1 Patch to skin weekly. [facility] norelgestro min-ethinyl estradiol 150-35 mcg/24 hr patch 2022-0 2-10 00:00: 00 Yes [id number] 1{patch } Apply 1 Patch to skin weekly. [facility] norelgestro min-ethinyl estradiol 150-35 mcg/24 hr patch 2022-0 2-10 00:00: 00 Yes [id number] 1{patch } Apply 1 Patch to skin weekly. [facility] norelgestro min-ethinyl estradiol 150-35 mcg/24 hr patch 2022-0 2-10 00:00: 00 Yes [id number] 1{patch } Apply 1 Patch to skin weekly. [facility] norelgestro min-ethinyl estradiol 150-35 mcg/24 hr patch 2022-0 2-10 00:00: 00 Yes [id number] 1{patch } Apply 1 Patch to skin weekly. [facility] norelgestro min-ethinyl estradiol 150-35 mcg/24 hr patch 2022-0 2-10 00:00: 00 Yes [id number] 1{patch } Apply 1 Patch to skin weekly. [facility] norelgestro min-ethinyl estradiol 150-35 mcg/24 hr patch 2022-0 2-10 00:00: 00 Yes [id number] 1{patch } Apply 1 Patch to skin weekly. [facility] norelgestro min-ethinyl estradiol 150-35 mcg/24 hr patch 2022-0 2-10 00:00: 00 Yes [id number] 1{patch } Apply 1 Patch to skin weekly. [facility] norelgestro min-ethinyl estradiol 150-35 mcg/24 hr patch 2022-0 2-10 00:00: 00 Yes [id number] 1{patch } Apply 1 Patch to skin weekly. [facility] norelgestro min-ethinyl estradiol 150-35 mcg/24 hr patch 2022-0 2-10 00:00: 00 Yes [id number] 1{patch } Apply 1 Patch to skin weekly. [facility] norelgestro min-ethinyl estradiol 150-35 mcg/24 hr patch 2022-0 2-10 00:00: 00 Yes [id number] 1{patch } Apply 1 Patch to skin weekly. [facility] norelgestro min-ethinyl estradiol 150-35 mcg/24 hr patch 2022-0 2-10 00:00: 00 04-01 00:00 :00 No [id number] 1{patch } Apply 1 Patch to skin weekly. [facility] norelgestro min-ethinyl estradiol 150-35 mcg/24 hr patch 2022-0 2-10 00:00: 00 04-01 00:00 :00 No [id number] 1{patch } Apply 1 Patch to skin weekly. [facility] norgestimat e-ethinyl estradioL 0.18/0.215/ 0.25 mg-25 mcg tablet 2021-0 7-07 00:00: 00 Yes [id number] 1{tbl} Take 1 tablet by mouth daily. [facility] norgestimat e-ethinyl estradioL 0.18/0.215/ 0.25 mg-25 mcg tablet 02-15 00:00: 00 09-21 00:00 :00 No [id number] 1{tbl} Take 1 tablet by mouth daily. [facility] norgestimat e-ethinyl estradioL 0.18/0.215/ 0.25 mg-25 mcg tablet 02-15 00:00: 00 09-21 00:00 :00 No [id number] 1{tbl} Take 1 tablet by mouth daily. [facility] norgestimat e-ethinyl estradioL 0.18/0.215/ 0.25 mg-25 mcg tablet 11-16 00:00: 00 02-15 00:00 :00 No [id number] 1{tbl} Take 1 tablet by mouth daily. [facility] benzonatate 100 mg capsule 10-16 00:00: 00 Yes [id number] 100mg Take 1 capsule by mouth 3 (three) times daily as needed for Cough. [facility] albuterol 90 mcg/actuati on inhaler 10-16 00:00: 00 Yes [id number] 6{puff} Inhale 6 Puffs every 4 (four) hours as needed for Wheezing or Shortness of Breath. [facility] albuterol 90 mcg/actuati on inhaler 10-16 00:00: 00 Yes [id number] 6{puff} Inhale 6 Puffs every 4 (four) hours as needed for Wheezing or Shortness of Breath. [facility] albuterol 90 mcg/actuati on inhaler 10-16 00:00: 00 Yes [id number] 6{puff} Inhale 6 Puffs every 4 (four) hours as needed for Wheezing or Shortness of Breath. [facility] albuterol 90 mcg/actuati on inhaler 10-16 00:00: 00 Yes [id number] 6{puff} Inhale 6 Puffs every 4 (four) hours as needed for Wheezing or Shortness of Breath. [facility] albuterol 90 mcg/actuati on inhaler 10-16 00:00: 00 Yes [id number] 6{puff} Inhale 6 Puffs every 4 (four) hours as needed for Wheezing or Shortness of Breath. [facility] albuterol 90 mcg/actuati on inhaler 10-16 00:00: 00 Yes [id number] 6{puff} Inhale 6 Puffs every 4 (four) hours as needed for Wheezing or Shortness of Breath. [facility] albuterol 90 mcg/actuati on inhaler 10-16 00:00: 00 Yes [id number] 6{puff} Inhale 6 Puffs every 4 (four) hours as needed for Wheezing or Shortness of Breath. [facility] albuterol 90 mcg/actuati on inhaler 10-16 00:00: 00 Yes [id number] 6{puff} Inhale 6 Puffs every 4 (four) hours as needed for Wheezing or Shortness of Breath. [facility] albuterol 90 mcg/actuati on inhaler 10-16 00:00: 00 Yes [id number] 6{puff} Inhale 6 Puffs every 4 (four) hours as needed for Wheezing or Shortness of Breath. [facility] albuterol 90 mcg/actuati on inhaler 10-16 00:00: 00 Yes [id number] 6{puff} Inhale 6 Puffs every 4 (four) hours as needed for Wheezing or Shortness of Breath. [facility] albuterol 90 mcg/actuati on inhaler 10-16 00:00: 00 Yes [id number] 6{puff} Inhale 6 Puffs every 4 (four) hours as needed for Wheezing or Shortness of Breath. [facility] albuterol 90 mcg/actuati on inhaler 10-16 00:00: 00 01-03 00:00 :00 No [id number] 6{puff} Inhale 6 Puffs every 4 (four) hours as needed for Wheezing or Shortness of Breath. [facility] albuterol 90 mcg/actuati on inhaler 10-16 00:00: 00 01-03 00:00 :00 No [id number] 6{puff} Inhale 6 Puffs every 4 (four) hours as needed for Wheezing or Shortness of Breath. [facility] benzonatate 100 mg capsule 10-16 00:00: 00 09-21 00:00 :00 No [id number] 100mg Take 1 capsule by mouth 3 (three) times daily as needed for Cough. [facility] benzonatate 100 mg capsule 10-16 00:00: 00 09-21 00:00 :00 No [id number] 100mg Take 1 capsule by mouth 3 (three) times daily as needed for Cough. [facility] Immunizations Ordered Immunization Name Filled Immunization Name Date Status Comments Source Influenza Virus Vaccine Quad .5 mL IM 6+ MO 2021-11-02 00:00:00 Completed [facility] Influenza Virus Vaccine Quad .5 mL IM 6+ MO 2021-11-02 00:00:00 Completed [facility] Influenza Virus Vaccine Quad .5 mL IM 6+ MO 2021-11-02 00:00:00 Completed [facility] Influenza Virus Vaccine Quad .5 mL IM 6+ MO 2021-11-02 00:00:00 Completed [facility] Influenza Virus Vaccine Quad .5 mL IM 6+ MO 2021-11-02 00:00:00 Completed [facility] Influenza Virus Vaccine Quad .5 mL IM 6+ MO 2021-11-02 00:00:00 Completed [facility] Influenza Virus Vaccine Quad .5 mL IM 6+ MO 2021-11-02 00:00:00 Completed [facility] Influenza Virus Vaccine Quad .5 mL IM 6+ MO 2021-11-02 00:00:00 Completed [facility] Influenza Virus Vaccine Quad .5 mL IM 6+ MO 2021-11-02 00:00:00 Completed [facility] Influenza Virus Vaccine Quad .5 mL IM 6+ MO 2021-11-02 00:00:00 Completed [facility] Influenza Virus Vaccine Quad .5 mL IM 6+ MO 2021-11-02 00:00:00 Completed [facility] Influenza Virus Vaccine Quad .5 mL IM 6+ MO 2021-11-02 00:00:00 Completed [facility] Influenza Virus Vaccine Quad .5 mL IM 6+ MO 2021-11-02 00:00:00 Completed [facility] Influenza Virus Vaccine Quad .5 mL IM 6+ MO 2021-11-02 00:00:00 Completed [facility] Influenza Virus Vaccine Quad .5 mL IM 6+ MO 2021-11-02 00:00:00 Completed [facility] Influenza Virus Vaccine Quad .5 mL IM 6+ MO 2021-11-02 00:00:00 Completed [facility] Influenza Virus Vaccine Quad .5 mL IM 6+ MO 2021-11-02 00:00:00 Completed [facility] Influenza Virus Vaccine Quad .5 mL IM 6+ MO 2021-11-02 00:00:00 Completed [facility] Influenza Virus Vaccine Quad .5 mL IM 6+ MO 2021-11-02 00:00:00 Completed [facility] Influenza Virus Vaccine Quad .5 mL IM 6+ MO 2021-11-02 00:00:00 Completed [facility] Influenza Virus Vaccine Quad .5 mL IM 6+ MO 2021-11-02 00:00:00 Completed [facility] Influenza Virus Vaccine Quad .5 mL IM 6+ MO 2021-11-02 00:00:00 Completed [facility] Influenza Virus Vaccine Quad .5 mL IM 6+ MO 2021-11-02 00:00:00 Completed [facility] Influenza Virus Vaccine Quad .5 mL IM 6+ MO 2021-11-02 00:00:00 Completed [facility] Influenza Virus Vaccine Quad .5 mL IM 6+ MO 2021-11-02 00:00:00 Completed [facility] Influenza Virus Vaccine Quad .5 mL IM 6+ MO 2021-11-02 00:00:00 Completed [facility] Influenza Virus Vaccine Quad .5 mL IM 6+ MO (FLUZONE/FLULAVAL/F LUARIX) 2021-11-02 00:00:00 Completed [facility] Influenza Virus Vaccine Quad .5 mL IM 6+ MO (FLUZONE/FLULAVAL/F LUARIX) 2021-11-02 00:00:00 Completed [facility] Influenza Virus Vaccine Quad .5 mL IM 6+ MO (FLUZONE/FLULAVAL/F LUARIX) 2021-11-02 00:00:00 Completed [facility] SARS-COV-2 COVID-19 PFIZER VACCINE 2021-03-27 00:00:00 Completed [facility] SARS-COV-2 COVID-19 PFIZER VACCINE 2021-03-27 00:00:00 Completed [facility] SARS-COV-2 COVID-19 PFIZER VACCINE 2021-03-27 00:00:00 Completed [facility] SARS-COV-2 COVID-19 PFIZER VACCINE 2021-03-27 00:00:00 Completed [facility] SARS-COV-2 COVID-19 PFIZER VACCINE 2021-03-27 00:00:00 Completed [facility] SARS-COV-2 COVID-19 PFIZER VACCINE 2021-03-27 00:00:00 Completed [facility] SARS-COV-2 COVID-19 PFIZER VACCINE 2021-03-27 00:00:00 Completed [facility] SARS-COV-2 COVID-19 PFIZER VACCINE 2021-03-27 00:00:00 Completed [facility] SARS-COV-2 COVID-19 PFIZER VACCINE 2021-03-27 00:00:00 Completed [facility] SARS-COV-2 COVID-19 PFIZER VACCINE 2021-03-27 00:00:00 Completed [facility] SARS-COV-2 COVID-19 PFIZER VACCINE 2021-03-27 00:00:00 Completed [facility] SARS-COV-2 COVID-19 PFIZER VACCINE 2021-03-27 00:00:00 Completed [facility] SARS-COV-2 COVID-19 PFIZER VACCINE 2021-03-27 00:00:00 Completed [facility] SARS-COV-2 COVID-19 PFIZER VACCINE 2021-03-27 00:00:00 Completed [facility] SARS-COV-2 COVID-19 PFIZER VACCINE 2021-03-27 00:00:00 Completed [facility] SARS-COV-2 COVID-19 PFIZER VACCINE 2021-03-27 00:00:00 Completed [facility] SARS-COV-2 COVID-19 PFIZER VACCINE 2021-03-27 00:00:00 Completed [facility] SARS-COV-2 COVID-19 PFIZER VACCINE 2021-03-27 00:00:00 Completed [facility] SARS-COV-2 COVID-19 PFIZER VACCINE 2021-03-27 00:00:00 Completed [facility] SARS-COV-2 COVID-19 PFIZER VACCINE 2021-03-27 00:00:00 Completed [facility] SARS-COV-2 COVID-19 PFIZER VACCINE 2021-03-27 00:00:00 Completed [facility] SARS-COV-2 COVID-19 PFIZER VACCINE 2021-03-27 00:00:00 Completed [facility] SARS-COV-2 COVID-19 PFIZER VACCINE 2021-03-27 00:00:00 Completed [facility] SARS-COV-2 COVID-19 PFIZER VACCINE 2021-03-27 00:00:00 Completed [facility] SARS-COV-2 COVID-19 PFIZER VACCINE 2021-03-27 00:00:00 Completed [facility] SARS-COV-2 COVID-19 PFIZER VACCINE 2021-03-27 00:00:00 Completed [facility] SARS-COV-2 COVID-19 PFIZER VACCINE 2021-03-27 00:00:00 Completed [facility] SARS-COV-2 COVID-19 PFIZER VACCINE 2021-03-27 00:00:00 Completed [facility] SARS-COV-2 COVID-19 PFIZER VACCINE 2021-03-27 00:00:00 Completed [facility] SARS-COV-2 COVID-19 PFIZER VACCINE 2021-03-06 00:00:00 Completed [facility] SARS-COV-2 COVID-19 PFIZER VACCINE 2021-03-06 00:00:00 Completed [facility] SARS-COV-2 COVID-19 PFIZER VACCINE 2021-03-06 00:00:00 Completed [facility] SARS-COV-2 COVID-19 PFIZER VACCINE 2021-03-06 00:00:00 Completed [facility] SARS-COV-2 COVID-19 PFIZER VACCINE 2021-03-06 00:00:00 Completed [facility] SARS-COV-2 COVID-19 PFIZER VACCINE 2021-03-06 00:00:00 Completed [facility] SARS-COV-2 COVID-19 PFIZER VACCINE 2021-03-06 00:00:00 Completed [facility] SARS-COV-2 COVID-19 PFIZER VACCINE 2021-03-06 00:00:00 Completed [facility] SARS-COV-2 COVID-19 PFIZER VACCINE 2021-03-06 00:00:00 Completed [facility] SARS-COV-2 COVID-19 PFIZER VACCINE 2021-03-06 00:00:00 Completed [facility] SARS-COV-2 COVID-19 PFIZER VACCINE 2021-03-06 00:00:00 Completed [facility] SARS-COV-2 COVID-19 PFIZER VACCINE 2021-03-06 00:00:00 Completed [facility] SARS-COV-2 COVID-19 PFIZER VACCINE 2021-03-06 00:00:00 Completed [facility] SARS-COV-2 COVID-19 PFIZER VACCINE 2021-03-06 00:00:00 Completed [facility] SARS-COV-2 COVID-19 PFIZER VACCINE 2021-03-06 00:00:00 Completed [facility] SARS-COV-2 COVID-19 PFIZER VACCINE 2021-03-06 00:00:00 Completed [facility] SARS-COV-2 COVID-19 PFIZER VACCINE 2021-03-06 00:00:00 Completed [facility] SARS-COV-2 COVID-19 PFIZER VACCINE 2021-03-06 00:00:00 Completed [facility] SARS-COV-2 COVID-19 PFIZER VACCINE 2021-03-06 00:00:00 Completed [facility] SARS-COV-2 COVID-19 PFIZER VACCINE 2021-03-06 00:00:00 Completed [facility] SARS-COV-2 COVID-19 PFIZER VACCINE 2021-03-06 00:00:00 Completed [facility] SARS-COV-2 COVID-19 PFIZER VACCINE 2021-03-06 00:00:00 Completed [facility] SARS-COV-2 COVID-19 PFIZER VACCINE 2021-03-06 00:00:00 Completed [facility] SARS-COV-2 COVID-19 PFIZER VACCINE 2021-03-06 00:00:00 Completed [facility] SARS-COV-2 COVID-19 PFIZER VACCINE 2021-03-06 00:00:00 Completed [facility] SARS-COV-2 COVID-19 PFIZER VACCINE 2021-03-06 00:00:00 Completed [facility] SARS-COV-2 COVID-19 PFIZER VACCINE 2021-03-06 00:00:00 Completed [facility] SARS-COV-2 COVID-19 PFIZER VACCINE 2021-03-06 00:00:00 Completed [facility] SARS-COV-2 COVID-19 PFIZER VACCINE 2021-03-06 00:00:00 Completed [facility] HPV9 2019-08-25 00:00:00 Completed [facility] HPV9 2019-08-25 00:00:00 Completed [facility] HPV9 2019-08-25 00:00:00 Completed [facility] HPV9 2019-08-25 00:00:00 Completed [facility] HPV9 2019-08-25 00:00:00 Completed [facility] HPV9 2019-08-25 00:00:00 Completed [facility] HPV9 2019-08-25 00:00:00 Completed [facility] HPV9 2019-08-25 00:00:00 Completed [facility] HPV9 2019-08-25 00:00:00 Completed [facility] HPV9 2019-08-25 00:00:00 Completed [facility] HPV9 2019-08-25 00:00:00 Completed [facility] HPV9 2019-08-25 00:00:00 Completed [facility] HPV9 2019-08-25 00:00:00 Completed [facility] HPV9 2019-08-25 00:00:00 Completed [facility] HPV9 2019-08-25 00:00:00 Completed [facility] HPV9 2019-08-25 00:00:00 Completed [facility] HPV9 2019-08-25 00:00:00 Completed [facility] HPV9 2019-08-25 00:00:00 Completed [facility] HPV9 2019-08-25 00:00:00 Completed [facility] HPV9 2019-08-25 00:00:00 Completed [facility] HPV9 2019-08-25 00:00:00 Completed [facility] HPV9 2019-08-25 00:00:00 Completed [facility] HPV9 2019-08-25 00:00:00 Completed [facility] HPV9 2019-08-25 00:00:00 Completed [facility] HPV9 2019-08-25 00:00:00 Completed [facility] HPV9 2019-08-25 00:00:00 Completed [facility] HPV9 2019-08-25 00:00:00 Completed [facility] HPV9 2019-08-25 00:00:00 Completed [facility] HPV9 2019-08-25 00:00:00 Completed [facility] HPV9 2019-05-27 00:00:00 Completed [facility] HPV9 2019-05-27 00:00:00 Completed [facility] HPV9 2019-05-27 00:00:00 Completed [facility] HPV9 2019-05-27 00:00:00 Completed [facility] HPV9 2019-05-27 00:00:00 Completed [facility] HPV9 2019-05-27 00:00:00 Completed [facility] HPV9 2019-05-27 00:00:00 Completed [facility] HPV9 2019-05-27 00:00:00 Completed [facility] HPV9 2019-05-27 00:00:00 Completed [facility] HPV9 2019-05-27 00:00:00 Completed [facility] HPV9 2019-05-27 00:00:00 Completed [facility] HPV9 2019-05-27 00:00:00 Completed [facility] HPV9 2019-05-27 00:00:00 Completed [facility] HPV9 2019-05-27 00:00:00 Completed [facility] HPV9 2019-05-27 00:00:00 Completed [facility] HPV9 2019-05-27 00:00:00 Completed [facility] HPV9 2019-05-27 00:00:00 Completed [facility] HPV9 2019-05-27 00:00:00 Completed [facility] HPV9 2019-05-27 00:00:00 Completed [facility] HPV9 2019-05-27 00:00:00 Completed [facility] HPV9 2019-05-27 00:00:00 Completed [facility] HPV9 2019-05-27 00:00:00 Completed [facility] HPV9 2019-05-27 00:00:00 Completed [facility] HPV9 2019-05-27 00:00:00 Completed [facility] HPV9 2019-05-27 00:00:00 Completed [facility] HPV9 2019-05-27 00:00:00 Completed [facility] HPV9 2019-05-27 00:00:00 Completed [facility] HPV9 2019-05-27 00:00:00 Completed [facility] HPV9 2019-05-27 00:00:00 Completed [facility] TDAP (ADACEL) VACCINE 2014-06-24 00:00:00 Completed [facility] Meningococcal Vaccine 2014-06-24 00:00:00 Completed [facility] TDAP (ADACEL) VACCINE 2014-06-24 00:00:00 Completed [facility] Meningococcal Vaccine 2014-06-24 00:00:00 Completed [facility] TDAP (ADACEL) VACCINE 2014-06-24 00:00:00 Completed [facility] Meningococcal Vaccine 2014-06-24 00:00:00 Completed [facility] TDAP (ADACEL) VACCINE 2014-06-24 00:00:00 Completed [facility] Meningococcal Vaccine 2014-06-24 00:00:00 Completed [facility] TDAP (ADACEL) VACCINE 2014-06-24 00:00:00 Completed [facility] Meningococcal Vaccine 2014-06-24 00:00:00 Completed [facility] TDAP (ADACEL) VACCINE 2014-06-24 00:00:00 Completed [facility] Meningococcal Vaccine 2014-06-24 00:00:00 Completed [facility] TDAP (ADACEL) VACCINE 2014-06-24 00:00:00 Completed [facility] Meningococcal Vaccine 2014-06-24 00:00:00 Completed [facility] TDAP (ADACEL) VACCINE 2014-06-24 00:00:00 Completed [facility] Meningococcal Vaccine 2014-06-24 00:00:00 Completed [facility] TDAP (ADACEL) VACCINE 2014-06-24 00:00:00 Completed [facility] Meningococcal Vaccine 2014-06-24 00:00:00 Completed [facility] TDAP (ADACEL) VACCINE 2014-06-24 00:00:00 Completed [facility] Meningococcal Vaccine 2014-06-24 00:00:00 Completed [facility] TDAP (ADACEL) VACCINE 2014-06-24 00:00:00 Completed [facility] Meningococcal Vaccine 2014-06-24 00:00:00 Completed [facility] TDAP (ADACEL) VACCINE 2014-06-24 00:00:00 Completed [facility] Meningococcal Vaccine 2014-06-24 00:00:00 Completed [facility] TDAP (ADACEL) VACCINE 2014-06-24 00:00:00 Completed [facility] Meningococcal Vaccine 2014-06-24 00:00:00 Completed [facility] TDAP (ADACEL) VACCINE 2014-06-24 00:00:00 Completed [facility] Meningococcal Vaccine 2014-06-24 00:00:00 Completed [facility] TDAP (ADACEL) VACCINE 2014-06-24 00:00:00 Completed [facility] Meningococcal Vaccine 2014-06-24 00:00:00 Completed [facility] TDAP (ADACEL) VACCINE 2014-06-24 00:00:00 Completed [facility] Meningococcal Vaccine 2014-06-24 00:00:00 Completed [facility] TDAP (ADACEL) VACCINE 2014-06-24 00:00:00 Completed [facility] Meningococcal Vaccine 2014-06-24 00:00:00 Completed [facility] TDAP (ADACEL) VACCINE 2014-06-24 00:00:00 Completed [facility] Meningococcal Vaccine 2014-06-24 00:00:00 Completed [facility] TDAP (ADACEL) VACCINE 2014-06-24 00:00:00 Completed [facility] Meningococcal Vaccine 2014-06-24 00:00:00 Completed [facility] TDAP (ADACEL) VACCINE 2014-06-24 00:00:00 Completed [facility] Meningococcal Vaccine 2014-06-24 00:00:00 Completed [facility] TDAP (ADACEL) VACCINE 2014-06-24 00:00:00 Completed [facility] Meningococcal Vaccine 2014-06-24 00:00:00 Completed [facility] TDAP (ADACEL) VACCINE 2014-06-24 00:00:00 Completed [facility] Meningococcal Vaccine 2014-06-24 00:00:00 Completed [facility] TDAP (ADACEL) VACCINE 2014-06-24 00:00:00 Completed [facility] Meningococcal Vaccine 2014-06-24 00:00:00 Completed [facility] TDAP (ADACEL) VACCINE 2014-06-24 00:00:00 Completed [facility] Meningococcal Vaccine 2014-06-24 00:00:00 Completed [facility] TDAP (ADACEL) VACCINE 2014-06-24 00:00:00 Completed [facility] Meningococcal Vaccine 2014-06-24 00:00:00 Completed [facility] TDAP (ADACEL) VACCINE 2014-06-24 00:00:00 Completed [facility] Meningococcal Vaccine 2014-06-24 00:00:00 Completed [facility] TDAP (ADACEL) VACCINE 2014-06-24 00:00:00 Completed [facility] Meningococcal Vaccine 2014-06-24 00:00:00 Completed [facility] TDAP (ADACEL) VACCINE 2014-06-24 00:00:00 Completed [facility] Meningococcal Vaccine 2014-06-24 00:00:00 Completed [facility] TDAP (ADACEL) VACCINE 2014-06-24 00:00:00 Completed [facility] Meningococcal Vaccine 2014-06-24 00:00:00 Completed [facility] TDAP (ADACEL) VACCINE 2013-03-12 00:00:00 Completed [facility] TDAP (ADACEL) VACCINE 2013-03-12 00:00:00 Completed [facility] TDAP (ADACEL) VACCINE 2013-03-12 00:00:00 Completed [facility] TDAP (ADACEL) VACCINE 2013-03-12 00:00:00 Completed [facility] TDAP (ADACEL) VACCINE 2013-03-12 00:00:00 Completed [facility] TDAP (ADACEL) VACCINE 2013-03-12 00:00:00 Completed [facility] TDAP (ADACEL) VACCINE 2013-03-12 00:00:00 Completed [facility] TDAP (ADACEL) VACCINE 2013-03-12 00:00:00 Completed [facility] TDAP (ADACEL) VACCINE 2013-03-12 00:00:00 Completed [facility] TDAP (ADACEL) VACCINE 2013-03-12 00:00:00 Completed [facility] TDAP (ADACEL) VACCINE 2013-03-12 00:00:00 Completed [facility] TDAP (ADACEL) VACCINE 2013-03-12 00:00:00 Completed [facility] TDAP (ADACEL) VACCINE 2013-03-12 00:00:00 Completed [facility] TDAP (ADACEL) VACCINE 2013-03-12 00:00:00 Completed [facility] TDAP (ADACEL) VACCINE 2013-03-12 00:00:00 Completed [facility] TDAP (ADACEL) VACCINE 2013-03-12 00:00:00 Completed [facility] TDAP (ADACEL) VACCINE 2013-03-12 00:00:00 Completed [facility] TDAP (ADACEL) VACCINE 2013-03-12 00:00:00 Completed [facility] TDAP (ADACEL) VACCINE 2013-03-12 00:00:00 Completed [facility] TDAP (ADACEL) VACCINE 2013-03-12 00:00:00 Completed [facility] TDAP (ADACEL) VACCINE 2013-03-12 00:00:00 Completed [facility] TDAP (ADACEL) VACCINE 2013-03-12 00:00:00 Completed [facility] TDAP (ADACEL) VACCINE 2013-03-12 00:00:00 Completed [facility] TDAP (ADACEL) VACCINE 2013-03-12 00:00:00 Completed [facility] TDAP (ADACEL) VACCINE 2013-03-12 00:00:00 Completed [facility] TDAP (ADACEL) VACCINE 2013-03-12 00:00:00 Completed [facility] TDAP (ADACEL) VACCINE 2013-03-12 00:00:00 Completed [facility] TDAP (ADACEL) VACCINE 2013-03-12 00:00:00 [facility] [facility]ADACEL[facility] VACCINE 2013-03-12 00:00:00 Completed [facility] TDAP (ADACEL) VACCINE Unknown Completed [facility] HPV9 Unknown Completed [facility] TDAP (ADACEL) VACCINE Unknown Completed [facility] Meningococcal Vaccine Unknown Completed [facility] HPV9 Unknown Completed [facility] TDAP (ADACEL) VACCINE Unknown Completed [facility] HPV9 Unknown Completed [facility] TDAP (ADACEL) VACCINE Unknown Completed [facility] Meningococcal Vaccine Unknown Completed [facility] HPV9 Unknown Completed [facility] SARS-COV-2 COVID-19 PFIZER VACCINE Unknown Completed [facility] SARS-COV-2 COVID-19 PFIZER VACCINE Unknown Completed [facility] Influenza Virus Vaccine Quad .5 mL IM 6+ MO (FLUZONE/FLULAVAL/F LUARIX) Unknown Completed [facility] TDAP (ADACEL) VACCINE Unknown Completed [facility] HPV9 Unknown Completed [facility] TDAP (ADACEL) VACCINE Unknown Completed [facility] Meningococcal Vaccine Unknown Completed [facility] HPV9 Unknown Completed [facility] SARS-COV-2 COVID-19 PFIZER VACCINE Unknown Completed [facility] SARS-COV-2 COVID-19 PFIZER VACCINE Unknown Completed [facility] Influenza Virus Vaccine Quad .5 mL IM 6+ MO (FLUZONE/FLULAVAL/F LUARIX) Unknown Completed [facility] TDAP (ADACEL) VACCINE Unknown Completed [facility] HPV9 Unknown Completed [facility] TDAP (ADACEL) VACCINE Unknown Completed [facility] Meningococcal Vaccine Unknown Completed [facility] HPV9 Unknown Completed [facility] SARS-COV-2 COVID-19 PFIZER VACCINE Unknown Completed [facility] SARS-COV-2 COVID-19 PFIZER VACCINE Unknown Completed [facility] Influenza Virus Vaccine Quad .5 mL IM 6+ MO (FLUZONE/FLULAVAL/F LUARIX) Unknown Completed [facility] TDAP (ADACEL) VACCINE Unknown Completed [facility] HPV9 Unknown Completed [facility] TDAP (ADACEL) VACCINE Unknown Completed [facility] Meningococcal Vaccine Unknown Completed [facility] HPV9 Unknown Completed [facility] SARS-COV-2 COVID-19 PFIZER VACCINE Unknown Completed [facility] SARS-COV-2 COVID-19 PFIZER VACCINE Unknown Completed [facility] Influenza Virus Vaccine Quad .5 mL IM 6+ MO (FLUZONE/FLULAVAL/F LUARIX) Unknown Completed [facility] TDAP (ADACEL) VACCINE Unknown Completed [facility] HPV9 Unknown Completed [facility] TDAP (ADACEL) VACCINE Unknown Completed [facility] Meningococcal Vaccine Unknown Completed [facility] HPV9 Unknown Completed [facility] SARS-COV-2 COVID-19 PFIZER VACCINE Unknown Completed [facility] SARS-COV-2 COVID-19 PFIZER VACCINE Unknown Completed [facility] Influenza Virus Vaccine Quad .5 mL IM 6+ MO (FLUZONE/FLULAVAL/F LUARIX) Unknown Completed [facility] TDAP (ADACEL) VACCINE Unknown Completed [facility] HPV9 Unknown Completed [facility] TDAP (ADACEL) VACCINE Unknown Completed [facility] Meningococcal Vaccine Unknown Completed [facility] HPV9 Unknown Completed [facility] SARS-COV-2 COVID-19 PFIZER VACCINE Unknown Completed [facility] SARS-COV-2 COVID-19 PFIZER VACCINE Unknown Completed [facility] Influenza Virus Vaccine Quad .5 mL IM 6+ MO (FLUZONE/FLULAVAL/F LUARIX) Unknown Completed [facility] TDAP (ADACEL) VACCINE Unknown Completed [facility] HPV9 Unknown Completed [facility] TDAP (ADACEL) VACCINE Unknown Completed [facility] Meningococcal Vaccine Unknown Completed [facility] HPV9 Unknown Completed [facility] SARS-COV-2 COVID-19 PFIZER VACCINE Unknown Completed [facility] SARS-COV-2 COVID-19 PFIZER VACCINE Unknown Completed [facility] Influenza Virus Vaccine Quad .5 mL IM 6+ MO (FLUZONE/FLULAVAL/F LUARIX) Unknown Completed [facility] Vital Signs Vital Name Observation Time Observation Value Comments S ource Systolic blood pressure 2023-10-24 16:38:00 140 mm[Hg] [facility] Diastolic blood pressure 2023-10-24 16:38:00 88 mm[Hg] [facility] Heart rate 2023-10-24 16:38:00 78 /min [facility] Body temperature 2023-10-24 16:38:00 37.33 Barby [facility] Respiratory rate 2023-10-24 16:38:00 22 /min [facility] Body height 2023-10-24 16:38:00 162.6 cm [facility] Body weight 2023-10-24 16:38:00 58.968 kg [facility] BMI 2023-10-24 16:38:00 22.31 kg/m2 [facility] Oxygen saturation in Arterial blood by Pulse oximetry 2023-10-24 16:38:00 100 /min [facility] Systolic blood pressure 2023-08-20 20:26:00 136 mm[Hg] [facility] Diastolic blood pressure 2023-08-20 20:26:00 81 mm[Hg] [facility] Heart rate 2023-08-20 20:26:00 68 [facility] 2023-08-20 20:26:00 36.17 Barby [facility] Respiratory rate 2023-08-20 20:26:00 18 /min [facility] Body height 2023-08-20 20:26:00 165.1 cm [facility] Body weight 2023-08-20 20:26:00 62.642 kg [facility] BMI 2023-08-20 20:26:00 22.98 kg/m2 [facility] Systolic blood pressure 2023-04-24 15:10:00 148 mm[Hg] [facility] Diastolic blood pressure 2023-04-24 15:10:00 99 mm[Hg] [facility] Heart rate 2023-04-24 15:10:00 87 /min [facility] Body temperature 2023-04-24 15:10:00 37.11 Barby [facility] Respiratory rate 2023-04-24 15:10:00 18 /min [facility] Body height 2023-04-24 15:10:00 165.1 cm [facility] Body weight 2023-04-24 15:10:00 62.596 kg [facility] BMI 2023-04-24 15:10:00 22.96 kg/m2 [facility] Oxygen saturation in Arterial blood by Pulse oximetry 2023-04-24 15:10:00 100 /min [facility] Systolic blood pressure 2023-04-18 15:54:00 141 mm[Hg] [facility] Diastolic blood pressure 2023-04-18 15:54:00 73 mm[Hg] [facility] Heart rate 2023-04-18 15:54:00 58 /min [facility] Body temperature 2023-04-18 15:54:00 36.28 Barby [facility] Respiratory rate 2023-04-18 15:54:00 18 /min [facility] Body height 2023-04-18 15:54:00 162.6 cm [facility] Body weight 2023-04-18 15:54:00 62.914 kg [facility] BMI 2023-04-18 15:54:00 23.81 kg/m2 [facility] Systolic blood pressure 2023-04-01 18:05:00 140 mm[Hg] [facility] Diastolic blood pressure 2023-04-01 18:05:00 87 mm[Hg] [facility] Heart rate 2023-04-01 18:02:00 97 /min [facility] Body temperature 2023-04-01 18:02:00 36 Barby [facility] Body height 2023-04-01 18:02:00 165.1 cm [facility] Body weight 2023-04-01 18:02:00 61.236 kg [facility] BMI 2023-04-01 18:02:00 22.47 kg/m2 [facility] Oxygen saturation in Arterial blood by Pulse oximetry 2023-04-01 18:02:00 97 /min [facility] Systolic blood pressure 2023-02-14 15:01:00 126 mm[Hg] [facility] Diastolic blood pressure 2023-02-14 15:01:00 58 mm[Hg] [facility] Heart rate 2023-02-14 15:01:00 70 /min [facility] Body temperature 2023-02-14 15:01:00 36.61 Barby [facility] Respiratory rate 2023-02-14 15:01:00 18 /min [facility] Body height 2023-02-14 15:01:00 165.1 cm [facility] Body weight 2023-02-14 15:01:00 66.815 kg [facility] BMI 2023-02-14 15:01:00 24.51 kg/m2 [facility] Oxygen saturation in Arterial blood by Pulse oximetry 2023-02-14 15:01:00 100 /min [facility] Systolic blood pressure 2023-01-03 14:37:00 130 mm[Hg] [facility] Diastolic blood pressure 2023-01-03 14:37:00 85 mm[Hg] [facility] Heart rate 2023-01-03 14:37:00 66 /min [facility] Body temperature 2023-01-03 14:37:00 36.28 Barby [facility] Body height 2023-01-03 14:37:00 [facility].1 [facility] 2023-01-03 14:37:00 68.221 kg [facility] BMI 2023-01-03 14:37:00 25.03 kg/m2 [facility] Oxygen saturation in Arterial blood by Pulse oximetry 2023-01-03 14:37:00 98 /min [facility] Systolic blood pressure 2022-12-28 00:30:00 133 mm[Hg] [facility] Diastolic blood pressure 2022-12-28 00:30:00 75 mm[Hg] [facility] Heart rate 2022-12-28 00:30:00 82 /min [facility] Body temperature 2022-12-28 00:30:00 37.22 Barby [facility] Respiratory rate 2022-12-28 00:30:00 16 /min [facility] Body height 2022-12-28 00:30:00 165.1 cm [facility] Body weight 2022-12-28 00:30:00 67.858 kg [facility] BMI 2022-12-28 00:30:00 24.89 kg/m2 [facility] Oxygen saturation in Arterial blood by Pulse oximetry 2022-12-28 00:30:00 100 /min [facility] Systolic blood pressure 2022-12-28 00:06:00 145 mm[Hg] [facility] Diastolic blood pressure 2022-12-28 00:06:00 102 mm[Hg] [facility] Heart rate 2022-12-28 00:06:00 88 /min [facility] Body temperature 2022-12-28 00:06:00 36.39 Barby [facility] Respiratory rate 2022-12-28 00:06:00 17 /min [facility] Body weight 2022-12-28 00:06:00 67.813 kg [facility] BMI 2022-12-28 00:06:00 25.66 kg/m2 [facility] Oxygen saturation in Arterial blood by Pulse oximetry 2022-12-28 00:06:00 98 /min [facility] Systolic blood pressure 2022-12-20 14:41:00 128 mm[Hg] [facility] Diastolic blood pressure 2022-12-20 14:41:00 79 mm[Hg] [facility] Heart rate 2022-12-20 14:41:00 79 /min [facility] Body temperature 2022-12-20 14:41:00 36 Barby [facility] Respiratory rate 2022-12-20 14:41:00 18 /min [facility] Body height 2022-12-20 14:41:00 162.6 cm [facility] Body weight 2022-12-20 14:41:00 69.854 kg [facility] BMI 2022-12-20 14:41:00 26.43 kg/m2 [facility] Systolic blood pressure 2022-09-21 15:50:00 132 mm[Hg] [facility] Diastolic blood pressure 2022-09-21 15:50:00 73 mm[Hg] [facility] Heart rate 2022-09-21 15:45:00 73 /min [facility] Body temperature 2022-09-21 15:45:00 36.72 Barby [facility] Respiratory rate 2022-09-21 15:45:00 19 /min [facility] Body height 2022-09-21 15:45:00 165.1 cm [facility] Body weight 2022-09-21 15:45:00 76.068 kg [facility] BMI 2022-09-21 15:45:00 27.91 kg/m2 [facility] Systolic blood pressure 2022-02-15 13:51:00 127 mm[Hg] [facility] Diastolic blood pressure 2022-02-15 13:51:00 88 mm[Hg] [facility] Heart rate 2022-02-15 13:51:00 71 /min [facility] Body temperature 2022-02-15 13:51:00 36.11 Barby [facility] Respiratory rate 2022-02-15 13:51:00 16 /min [facility] Body height 2022-02-15 13:51:00 165.1 cm [facility] Body weight 2022-02-15 13:51:00 89.313 kg [facility] BMI 2022-02-15 13:51:00 32.77 kg/m2 [facility] Procedures Procedure Date / Time Performed Performing Clinician Source ABORH CONFIRMATION (LAB ONLY) 2023-10-24 18:54:00 Nacho Lucas [facility] THYROID STIMULATING HORMONE 2023-10-24 17:55:00 Nacho Lucas [facility] COMP. METABOLIC PANEL ([id number]) 2023-10-24 17:55:00 Nacho Lucas [facility] TOTAL BETA HCG ASSAY 2023-10-24 17:55:00 Wendy, And res [facility] CBC WITH DIFF 2023-10-24 17:55:00 [facility] 2023-10-24 17:55[facility]00 [facility]REATMENT 2023-10-24 16:28:49 Doctor Unassigned, Wilhoit [facility] POCT TEST 2023-04-24 15:42:00 Berkley Grant [facility] URINALYSIS 2023-04-24 15:38:00 Rahel Grant [facility] ASSIGNMENT OF BENEFITS 2023-04-24 15:20:04 Docto r Unassigned, Wilhoit [facility] CONSENT/REFUSAL FOR DIAGNOSIS AND TREATMENT 2023-04-24 15:04:50 Doctor Unassigned, Wilhoit [facility] POCT TEST 2023-04-18 00:00:00 Adriano Bowers [facility] COMP. METABOLIC PANEL ([id number]) 2023-04-01 18:36:00 Eliza Bowers [facility] CBC WITH DIFF 2023-04-01 18:36:00 Eliza Bowers [facility] POCT URINALYSIS 2023-01-03 15:09:00 Eliza Bowers [facility] POCT TEST 2023-01-03 15:09:00 Adriano Bowers [facility] CT ABDOMEN PELVIS W CONTRAST 2022-12-28 02:03:46 Yaw Leiva [facility] ASSIGNMENT OF BENEFITS 2022-12-28 01:22:25 Docto r Unassigned, Wilhoit [facility] POCT TEST 2022-12-28 01:05:00 Kasandra Leiva [facility] LIPASE 2022-12-28 01:04:00 Leiva, Yaw [facility] THYROID STIMULATING HORMONE 2022-12-28 01:04:00 Yaw Leiva [facility] COMP. METABOLIC PANEL ([id number]) 2022-12-28 01:04:00 Yaw Leiva [facility] CBC WITH DIFF 2022-12-28 01:04:00 Yaw Leiva [facility] URINALYSIS 2022-12-28 01:04:00 Yaw Leiva [facility] CONSENT/REFUSAL FOR DIAGNOSIS AND TREATMENT 2022-12-28 00:17:56 Doctor Unassigned, Wilhoit [facility] ASSIGNMENT OF BENEFITS 2022-12-20 14:26:08 Docto r Unassigned, Wilhoit [facility] POCT TEST 2022-09-21 00:00:00 Sivan Franklin [facility] Encounters Start Date/Time End Date/Time Encounter Type Admission Type Attending [facility] Facility Care Department Encounter ID Source 2021-06-08 19:53:15 Emergency [facility] [id number] [facility] 2023-11-21 08:30:00 2023-11-21 08:30:00 Outpatient R AKINSITELLY SANTANALESLIE [facility] [id number] [facility] 2023-10-28 13:45:00 2023-10-28 13:45:00 Outpatient R AKINSIPELESLIE [facility] [id number] [facility] 2023-10-28 13:15:00 2023-10-28 13:15:00 Outpatient R [facility] [id number] [facility] 2023-10-24 11:40:00 2023-10-24 16:53:00 Emergency X NACHO LUCAS [facility] ERT [id number] [facility] 2023-10-24 11:40:00 2023-10-24 16:53:00 Emergency Nacho Lucas [facility] 1.2.840.114 350.1.13.10 4.2.7.2.686 [id number] [facility] 2023-10-24 00:00:00 2023-10-24 00:00:00 Telephone Pgy3 [facility] 1.0.114 350.1.13.10 4.2.7.2.686 [id number] [facility] 2023-09-17 00:00:00 2023-09-17 00:00:00 Outpatient SYDNEY GAXIOLA [facility] [id number] [facility] 2023-09-13 10:00:00 2023-09-13 10:00:00 Outpatient BRUNA ESCAMILLA ASHLEY [facility] [id number] [facility] 2023-09-02 00:00:00 2023-09-02 00:00:00 Outpatient SYDNEY GAXIOLA [facility] [id number] [facility] 2023-08-23 00:00:00 2023-08-23 00:00:00 Patient Secure Msg Doctor Unassigned, Wilhoit [facility] 1..114 350.1.13.10 4.2.7.2.686 [id number] [facility] 2023-08-20 14:30:00 2023-08-20 15:39:40 Outpatient R SYDNEY LUBIN [facility] [id number] [facility] 2023-08-20 14:30:00 2023-08-20 15:39:40 Office Visit Pgy2 Patricia [facility] 1..114 350.1.13.10 4.2.7.2.686 [id number] [facility] 2023-08-13 00:00:00 2023-08-13 00:00:00 Telephone Gretchen Murray [facility] 1..114 350.1.13.10 4.2.7.2.686 [id number] [facility] 2023-07-18 08:30:00 2023-07-18 08:30:00 Outpatient R ELIZA BOWERS [facility] [id number] [facility] 2023-04-24 10:13:00 2023-04-24 12:05:00 Emergency X RAHEL GRANT [facility] [id number] [facility] 2023-04-24 10:13:00 2023-04-24 12:05:00 Emergency Rahel Grant [facility] 1.2.840.114 350.1.13.10 4.2.7.2.686 [id number] [facility] 2023-04-18 11:00:00 2023-04-18 11:09:48 Outpatient R ELIZA BOWERS [facility] [id number] [facility] 2023-04-18 11:00:00 2023-04-18 11:09:48 Office Visit Eliza Bowers [facility] 1.2.840.114 350.1.13.10 4.2.7.2.686 [id number] [facility] 2023-04-04 00:00:00 2023-04-04 00:00:00 [facility] 1.2.840.114 350.1.13.10 4.2.7.2.686 [id number] [facility] 2023-04-01 13:53:27 2023-04-01 23:59:00 Outpatient R ELIZA BOWERS [facility] [id number] [facility] 2023-04-01 13:45:00 2023-04-01 23:59:00 Hospital Encounter Eliza Bowers [facility] 1.2.840.114 350.1.13.10 4.2.7.2.686 [id number] [facility] 2023-04-01 13:30:00 2023-04-01 13:36:46 Science Specialist Visit 2, Adc Lab Eliza Bowers [facility] 1.2.840.114 350.1.13.10 4.2.7.2.686 [id number] [facility] 2023-04-01 13:00:00 2023-04-01 13:28:27 [facility] 1.2.840.114 350.1.13.10 4.2.7.2.686 [id number] [facility] 2023-03-14 11:00:00 2023-03-14 11:00:00 Outpatient R STACY BOWERSSSICA [facility] [id number] [facility] 2023-03-09 00:00:00 2023-03-09 00:00:00 Refill Stacy Bowersssica [facility] 1.2.840.114 350.1.13.10 4.2.7.2.686 [id number] [facility] 2023-02-14 10:00:00 2023-02-14 10:27:33 Outpatient R ELIZA BOWERS [facility] [id number] [facility] 2023-02-14 10:00:00 2023-02-14 10:27:33 [facility] 1.2.840.114 350.1.13.10 4.2.7.2.686 [id number] [facility] 2023-01-23 14:30:00 2023-01-23 14:30:00 Outpatient R LESLIE CASTELLANOS [facility] [id number] [facility] 2023-01-10 00:00:00 2023-01-10 00:00:00 Outpatient R SOY ELIZA [facility] [id number] [facility] 2023-01-04 00:00:00 2023-01-04 00:00:00 Telephone Leslie Castellanos [facility] 1.2.840.114 350.1.13.10 4.2.7.2.686 [id number] [facility] 2023-01-03 10:15:00 2023-01-03 10:30:00 Science Specialist Visit 2, Adc Lab Stacy Bowersssica [facility] 1.2.840.114 350.1.13.10 4.2.7.2.686 [id number] [facility] 2023-01-03 09:30:00 2023-01-03 10:13:42 Outpatient R STACY BOWERSSSICA [facility] [id number] [facility] 2023-01-03 09:30:00 2023-01-03 10:13:42 Office Visit Eliza Bowers [facility] 1.2.840.114 350.1.13.10 4.2.7.2.686 [id number] [facility] 2023-01-03 00:00:00 2023-01-03 00:00:00 Telephone Leslie Castellanos [facility] 1.2.840.114 350.1.13.10 4.2.7.2.686 [id number] [facility] 2023-01-01 15:15:00 2023-01-01 15:15:00 Outpatient R LESLIE CASTELLANOS [facility] [id number] [facility] 2023-01-01 08:30:00 2023-01-01 08:30:00 Outpatient R ELIZA BOWERS [facility] [id number] [facility] 2022-12-27 19:33:00 2022-12-27 21:29:00 Emergency X YAW LEIVA [facility] [id number] [facility] 2022-12-27 19:33:00 2022-12-27 21:29:00 Emergency Yaw Leiva [facility] 1.0.114 350.1.13.10 4.2.7.2.686 [id number] [facility] 2022-12-27 19:00:00 2022-12-27 19:20:00 Nurse Visit Nurse, Ar[facility]io [facility] Unknown, Attending [facility] 1..114 350.1.13.10 4.2.7.2.686 [id number] [facility] 2022-12-27 19:00:00 2022-12-27 19:00:00 Outpatient R UNKNOWN, ATTENDING [facility] [id number] [facility] 2022-12-27 19:00:00 2022-12-27 19:00:00 Outpatient R BAILEE LIZ [facility] [id number] [facility] 2022-12-25 00:00:00 2022-12-25 00:00:00 Telephone Leslie Castellanos [facility] & CHILD [facility] 1..114 350.1.13.10 4.2.7.2.686 [id number] [facility] 2022-12-20 10:00:00 2022-12-20 10:58:56 Outpatient R LESLIE CASTELLANOS [facility] [id number] [facility] 2022-12-20 10:00:00 2022-12-20 10:58:56 Office Visit Leslie Castellanos [facility] & CHILD [facility] 1.0.114 350.1.13.10 4.2.7.2.686 [id number] [facility] 2022-12-20 00:00:00 2022-12-20 00:00:00 Orders Only Doctor Unassigned, Wilhoit [facility] 1.2.840.114 350.1.13.10 4.2.7.2.686 [id number] [facility] 2022-09-24 00:00:00 2022-09-24 00:00:00 Case Management Carla Franklin [facility] 1.2.840.114 350.1.13.10 4.2.7.2.686 [id number] [facility] 2022-09-21 09:30:00 2022-09-21 10:18:05 Outpatient R CARLA FRANKLIN [facility] [id number] [facility] 2022-09-21 09:30:00 2022-09-21 10:18:05 Office Visit Provider, Arcadio-Rmchp Temp Carla Franklin [facility] CH[facility] 1.2.840.114 350.1.13.10 4.2.7.2.686 [id number] [facility] 2022-09-21 00:00:00 2022-09-21 00:00:00 Letter (Out) Carla Franklin [facility] 1.2.840.114 350.1.13.10 4.2.7.2.686 [id number] [facility] 2022-09-07 08:30:00 2022-09-07 08:30:00 Outpatient R ROSALES CHAPIN EMILY [facility] [id number] [facility] 2022 13:40:00 2022 13:40:00 Outpatient R HENOK, MELINDA [facility] [id number] [facility] 2022-02-15 09:00:00 2022-02-15 09:18:29 Office Visit Jacob Barrientos Ivan [facility] MATERNAL & CHILD [facility] 1.2.840.114 350.1.13.10 4.2.7.2.686 [id number] 107 [id number] [facility] 2022-02-15 09:00:00 2022-02-15 09:18:29 Outpatient Ivan BARRIENTOS JACOB [facility] [id number] [facility] 2022-02-15 09:00:00 2022-02-15 09:00:00 Outpatient Ivan BARRIENTOS [facility] [id number] [facility] 2022-02-15 09:00:00 2022-02-15 09:00:00 Outpatient Ivan BARRIENTOS [facility] [id number] [facility] 2022-01-12 00:00:00 2022-01-12 00:00:00 Telephone Raymundo Barrientosmario alberto [facility] MATERNAL & CHILD [facility] 1.2.840.114 350.1.13.10 4.2.7.2.686 [id number] 107 [id number] [facility] 2022-01-11 15:15:00 2022-01-11 16:08:32 Office Visit Jacob Barrientos Ivan [facility] & CHILD [facility] 1.2.840.114 350.1.13.10 4.2.7.2.686 [id number] 107 [id number] [facility] 2022-01-11 15:15:00 2022-01-11 16:08:32 Outpatient Ivan [facility] [id number] [facility] 2022-01-11 15:15:00 2022-01-11 15:15:00 Outpatient R [facility]OSJ[facility] [id number] [facility] 2021-11-16 10:30:00 2021-11-16 10:30:00 Outpatient R [facility] [id number] [facility] 2021-11-16 08:00:00 2021-11-16 08:20:47 Outpatient Ivan BARRIENTOS, [facility] [id number] [facility] 2021-11-16 08:00:00 2021-11-16 08:20:47 Nurse Visit Visit, [facility] Barrientos, Jacob Love [facility] & CHILD [facility] 1.2.840.114 350.1.13.10 4.2.7.2.686 [id number] 107 [id number] [facility] 2021-11-03 00:00:00 2021-11-03 00:00:00 Telephone BarrientosJacob [facility] & CHILD [facility] 1.2.840.114 350.1.13.10 4.2.7.2.686 [id number] 107 [id number] [facility] 2021-11-02 10:30:00 2021-11-02 11:58:09 Office Visit Chris Jacob Love [facility] 1.2.840.114 350.1.13.10 4.2.7.2.686 [id number] 107 [id number] [facility] 2021-11-02 10:30:00 2021-11-02 11:58:09 Outpatient Ivan JACOB BARRIENTOS [facility] [id number] [facility] 2021-11-02 10:30:00 2021-11-02 11:58:09 Outpatient Ivan JACOB BARRIENTOS [facility] [id number] [facility] 2021-11-02 10:30:00 2021-11-02 10:30:00 Outpatient JACOB BAUTISTA [facility] [id number] [facility] 2021-11-02 10:30:00 2021-11-02 10:30:00 Outpatient R JACOB BARRIENTOS [facility] [id number] [facility] 2021-11-02 00:00:00 2021-11-02 00:00:00 Orders Only Doctor Unassigned, Wilhoit [facility] 1.840.114 350.1.13.10 4.2.7.2.686 [id number] [facility] 2021-10-16 19:47:00 2021-10-16 20:32:00 Emergency X ALIVIA ERNANDEZ [facility] ERT [id number] [facility] 2021-10-16 19:47:00 2021-10-16 20:32:00 Emergency Alivia Ernandez [facility] 1.840.114 350.1.13.10 4.2.7.2.686 [id number] [facility] 2021-08-01 08:30:00 2021-08-01 09:21:32 Outpatient R JACOB BARRIENTOS [facility] [id number] [facility] 2021-08-01 08:30:00 2021-08-01 09:21:32 Office Visit Jacob Barrientos [facility]NAL & CHILD [facility] 1..114 350.1.13.10 4.2.7.2.686 [id number] 107 [id number] [facility] 2021-08-01 00:00:00 2021-08-01 00:00:00 Orders Only Doctor Unassigned, Wilhoit [facility] 1.0.114 350.1.13.10 4.2.7.2.686 [id number] [facility] 2021-07-31 00:00:00 2021-07-31 00:00:00 Telephone Jacob Barrientos [facility] & CHILD [facility] 1.840.114 350.1.13.10 4.2.7.2.686 [id number] 107 [id number] [facility] 2021-06-13 10:30:00 2021-06-13 10:58:17 Outpatient R CINDY MENDIOLA [facility] [id number] [facility] 2021-06-13 10:01:19 2021-06-13 10:58:17 Office Visit Cindy Mendiola [facility] & CHILD [facility] ..840.114 350.1.13.10 4.2.7.2.686 [id number] [facility] 2021-06-13 10:30:00 2021-06-13 10:30:00 Outpatient R CINDY MENDIOLA [facility] [id number] [facility] 2021-06-06 00:00:00 2021-06-06 00:00:00 Telephone Jacob Barrientos [facility] & CHILD [facility] 08.13.840.114 350.1.13.10 4.2.7.2.686 [id number] 107 [id number] [facility] 2021-04-10 10:00:00 2021-04-10 10:00:00 Outpatient R LESLIE CASTELLANOS [facility] [id number] [facility] 2021-03-31 00:00:00 2021-03-31 00:00:00 Letter (Out) Rayne Jones [facility] 840.114 350.1.13.10 4.2.7.2.686 [id number] [facility] 2021-03-30 12:30:00 2021-03-30 12:30:00 Outpatient R NI ALVAREZ [facility] [id number] [facility] 2020-12-30 09:29:12 2020-12-30 10:10:09 Office Visit Jacob Barrietnos [facility] & CHILD [facility] 08.13.840.114 350.1.13.10 4.2.7.2.686 [id number] 107 [id number] [facility] 2020-12-30 09:29:12 2020-12-30 10:10:09 Office Visit Jacob Barrientos [facility] & CHILD [facility] 1.840.114 350.1.13.10 4.2.7.2.686 [id number] 107 [id number] 2020-12-30 09:30:00 2020-12-30 09:30:00 Outpatient R LESLIE CASTELLANOS [facility] [id number] [facility] 2020-12-30 08:45:00 2020-12-30 08:45:00 Outpatient R JACOB BARRIENTOS [facility] [id number] [facility] 2020-12-16 08:57:28 2020-12-16 09:27:28 Office Visit Leslie Castellanos [facility] 1.84.114 350.1.13.10 4.2.7.2.686 [id number] 107 [id number] [facility] 2020-12-16 09:00:00 2020-12-16 09:00:00 Outpatient R LESLIE CASTELLANOS [facility] [id number] [facility] 2020-12-16 00:00:00 2020-12-16 00:00:00 Orders Only Doctor Unassigned, Wilhoit [facility] ..114 350.1.13.10 4.2.7.2.686 [id number] [id number] [facility] 2020-12-02 00:00:00 2020-12-02 00:00:00 Telephone Leslie Castellanos [facility] & CHILD [facility] 1.84.114 350.1.13.10 4.2.7.2.686 [id number] 107 [id number] [facility] 2020-11-29 15:31:01 2020-11-29 15:46:01 Nurse Visit Visit, Ang-Rm[facility]p Nurse BarrientosJacob [facility] & CHILD [facility] 1.2.840.114 350.1.13.10 4.2.7.2.686 [id number] 107 [id number] [facility] 2020-11-29 15:30:00 2020-11-29 15:30:00 Outpatient Ivan JACOB BARRIENTOS [facility] [id number] [facility] 2020-11-29 00:00:00 2020-11-29 00:00:00 Telephone BarrientosJacob [facility] & CHILD [facility] 1..840.114 350.1.13.10 4.2.7.2.686 [id number] 107 [id number] [facility] 2020-11-02 10:16:29 2020-11-02 11:05:27 Office Visit BarrientosJacob [facility] & CHILD [facility] 1..840.114 350.1.13.10 4.2.7.2.686 [id number] 107 [id number] [facility] 2020-11-02 10:15:00 2020-11-02 10:15:00 Outpatient Ivan BARRIENTOSJACOB [facility] [id number] [facility] 2020-11-02 00:00:00 2020-11-02 00:00:00 Orders Only Doctor Unassigned, Wilhoit [facility] 1.840.114 350.1.13.10 4.2.7.2.686 [id number] [facility] 2020-11-01 15:00:00 2020-11-01 15:00:00 Outpatient Ivan JACOB BARRIENTOS [facility] [id number] [facility] 2020-11-01 00:00:00 2020-11-01 00:00:00 Patient Outreach Joel Matt Hua [facility] 1.114 350.1.13.10 4.2.7.2.686 [id number] [facility] 2020-07-13 00:00:00 2020-07-13 00:00:00 Patient Secure Msg Doctor Unassigned, Wilhoit MAURA COKER 1.114 350.1.13.10 4.2.7.2.686 [id number] [facility] 2020-07-04 00:00:00 2020-07-04 00:00:00 RefLeslie Marroquin [facility] & CHILD [facility] 1..114 350.1.13.10 4.2.7.2.686 [id number] 107 [id number] [facility] 2020-06-13 09:15:00 2020-06-13 09:15:00 Outpatient R LESLIE CASTELLANOS [facility] [id number] [facility] 2020-06-13 09:15:00 2020-06-13 09:15:00 Outpatient R LESLIE CASTELLANOS [facility] [id number] [facility] 2020-06-01 00:00:00 2020-06-01 00:00:00 RefLeslie Marroquin [facility] & CHILD [facility] 1.114 350.1.13.10 4.2.7.2.686 [id number] 107 [id number] [facility] 2020-05-30 00:00:00 2020-05-30 00:00:00 Elena Sanchez [facility] Manny pires [address] .114 350.1.13.10 4.2.7.2.686 [id number] [facility] 2020-05-27 10:30:00 2020-05-27 10:30:00 Outpatient LESLIE BOWER [facility] [id number] [facility] 2020-05-27 10:30:00 2020-05-27 10:30:00 Outpatient R THIENMAXTELLYLESLIE [facility] [id number] [facility] 2020-05-10 11:18:40 2020-05-10 11:38:40 Urgent Care Provider, [facility] [address] 1..114 350.1.13.10 4.2.7.2.686 [id number] [facility] 2020-05-10 11:20:00 2020-05-10 11:20:00 [facility] [id number] 2020-05-09 00:00:00 2020-05-09 00:00:00 Telephone Jacob Barrientos [facility] MATERNAL & CHILD [facility] 1.84.114 350.1.13.10 4.2.7.2.686 [id number] 107 [id number] [facility] 2020-03-31 09:26:23 2020-03-31 10:13:41 Office Visit Leslie Castellanos [facility] MATERNAL & CHILD [facility] 1.840.114 350.1.13.10 4.2.7.2.686 [id number] 107 [id number] [facility] 2020-03-31 09:00:00 2020-03-31 09:00:00 Outpatient R THIENMAXTELLYLESLIE [facility] [id number] [facility] 2020-03-11 00:00:00 2020-03-11 00:00:00 Telephone Leslie Castellanos [facility] & CHILD [facility] 1.84.114 350.1.13.10 4.2.7.2.686 [id number] 107 [id number] [facility] 2020-03-10 14:30:00 2020-03-10 14:30:00 Outpatient R LESLIE CASTELLANOS [facility] [id number] [facility] 2020-03-10 10:09:10 2020-03-10 11:09:52 Office Visit Leslie Castellanos Patricio [facility] & CHILD [facility] 1.2.840.114 350.1.13.10 4.2.7.2.686 [id number] 107 [id number] [facility] 2020-03-07 00:00:00 2020-03-07 00:00:00 Telephone Jacob Barrientos [facility] CHILD [facility] 1.2.840.114 350.1.13.10 4.2.7.2.686 [id number] 107 [id number] [facility] 2019-12-29 13:01:04 2019-12-30 11:33:02 Initial Visit Jacob Barrientos [facility] & CHILD [facility] 1.2.840.114 350.1.13.10 4.2.7.2.686 [id number] 107 [id number] [facility] 2019-12-30 00:00:00 2019-12-30 00:00:00 Patient Secure Msg Doctor Unassigned, Wilhoit [facility] CH[facility] 1.2.840.114 350.1.13.10 4.2.7.2.686 [id number] 107 [id number] [facility] 2019-12-30 00:00:00 2019-12-30 00:00:00 Patient Secure Msg Doctor Unassigned, Wilhoit [facility] 1.2.840.114 350.1.13.10 4.2.7.2.686 [id number] 107 [id number] [facility] 2019-12-29 14:04:59 2019-12-29 14:20:25 Office Visit Jacob Barrientos [facility] & CHILD [facility] 1.2.840.114 350.1.13.10 4.2.7.2.686 [id number] 107 [id number] [facility] 2019-12-29 12:45:00 2019-12-29 12:45:00 Outpatient R CIERRA BARRIENTOSSHELL [facility] [id number] [facility] 2019-12-15 07:30:05 2019-12-15 08:20:00 Emergency Fletcher Ramesh [facility] 1.2.840.114 350.1.13.10 4.2.7.2.686 [id number] [facility] 2019-12-14 00:00:00 2019-12-14 00:00:00 Patient Secure Ethel Abraham [facility] MATERNAL & CHILD [facility] 1..840.114 350.1.13.10 4.2.7.2.686 [id number] 107 [id number] [facility] 2019-11-30 08:30:00 2019-11-30 08:30:00 Outpatient R [facility] [id number] [facility] 2019-11-27 09:30:00 2019-11-27 09:30:00 Outpatient R [facility] [id number] [facility] 2019-11-26 09:00:00 2019-11-26 09:00:00 Outpatient R [facility] [id number] [facility] 2019-11-26 00:00:00 2019-11-26 00:00:00 Telephone Jacob Barrientos [facility] & CHILD [facility] 1.2.840.114 350.1.13.10 4.2.7.2.686 [id number] 107 [id number] [facility] 2019-11-24 09:30:00 2019-11-24 09:30:00 Outpatient R LESLIE CASTELLANOS [facility] [id number] [facility] 2019-11-03 05:13:00 2019-11-03 05:13:00 Outpatient Raju_P [facility] [id number] [facility] 2019-10-27 00:00:00 2019-10-27 00:00:00 Patient Secure Jacob Caro [facility] MATERNAL & CHILD [facility] 1.2.840.114 350.1.13.10 4.2.7.2.686 [id number] 107 [id number] [facility] 2019-10-16 10:45:40 2019-10-16 11:26:43 Office Visit Leslie Castellanos [facility] & CHILD [facility] 1.2.840.114 350.1.13.10 4.2.7.2.686 [id number] 107 [id number] [facility] 2019-10-16 10:45:00 2019-10-16 10:45:00 Outpatient R LESLIE CASTELLANOS [facility] [id number] [facility] 2019-10-07 12:51:31 2019-10-07 13:44:17 Office Visit Leslie Castellanos [facility] & CHILD [facility] 1.2.840.114 350.1.13.10 4.2.7.2.686 [id number] 107 [id number] [facility] 2019-10-07 13:00:00 2019-10-07 13:00:00 Outpatient R LESLIE CASTELLANOS [facility] [id number] [facility] 2019-10-06 00:00:00 2019-10-06 00:00:00 Telephone Leslie Castellanos [facility] CHILD [facility] 1.2.840.114 350.1.13.10 4.2.7.2.686 [id number] 107 [id number] [facility] 2019-10-02 14:07:49 2019-10-02 15:15:37 Office Visit Leslie Castellanos [facility] CH[facility] 1.2.840.114 350.1.13.10 4.2.7.2.686 [id number] 107 [id number] [facility] 2019-08-25 09:57:53 2019-08-25 13:09:26 Office Visit Emanuel Leslie Curry [facility] CH[facility] 1.2.840.114 350.1.13.10 4.2.7.2.686 [id number] 107 [id number] [facility] 2019-08-25 00:00:00 2019-08-25 00:00:00 Orders Only Doctor Unassigned, Wilhoit [facility] 1.2.840.114 350.1.13.10 4.2.7.2.686 [id number] [facility] 2019-08-25 00:00:00 2019-08-25 00:00:00 Letter (Out) Liamclarita Leslie Patricio [facility] 1.2.840.114 350.1.13.10 4.2.7.2.686 [id number] 107 [id number] [facility] 2019-03-05 22:28:42 2019-03-05 23:12:00 Emergency Alvin Pace [facility] 1.2.840.114 350.1.13.10 4.2.7.2.686 [id number] [facility] Results Test Description Test Time Test Comments Results Result Co mments Source [facility]2023-10-24 19:13:26* Test Item Value Reference Range Interpretation Comme nts BETA HCG (test code = 6210928000) 656.79 See_Comment [Automated messa ge] The system which generated this result transmitted reference range: Non- female and male patients: <5 mIU/mL. The reference range was not used to interpret this result as normal/abnormal. VICENTE (test code = VICENTE) Gestational Age ?Range (mIU/mL) 1-10 ?Weeks ?40-18904500-42 Weeks ?75060-16359284-40 Weeks ?6944-05085322-31 Weeks ?2937-798539 Biotin has been reported to cause a negative bias, interpret results relative to patient's use of biotin. [facility]. Metabolic Panel (74988)2023-10-24 18:43:10* Test Item Value Reference Range Interpretation Comme nts NA (test code = 0017060207) 138 mmol/L 135-145 K (test code = 0345365989) 4.1 mmol/L 3.5-5.0 CL (test code = 3291933817) 105 mmol/L 98-108 CO2 TOTAL (test code = 8421415533) 26 mmol/L 23-31 AGAP (test code = 6575930416) 7 2-16 BUN (test code = 2648912539) 11 mg/dL 7-23 GLUCOSE (test code = 4117551549) 100 mg/dL 70-110 CREATININE (test code = 2160-0) 0.55 mg/dL 0.50-1.04 TOTAL BILI (test code = 6132898503) 1.1 mg/dL 0.1-1.1 CALCIUM (test code = 9120849954) 9.1 mg/dL 8.6-10.6 T PROTEIN (test code = 9089991860) 7.5 g/dL 6.3-8.2 ALBUMIN (test code = 9633570135) 4.4 g/dL 3.5-5.0 ALK PHOS (test code = 6674020556) 58 U/L 34-122 ALTv (test code = 1742-6) 16 U/L 5-35 AST(SGOT) (test code = 2629477225) 25 U/L 13-40 eGFR (test code = 84767-6) 133.1 mL/min/1.73m2 CKD-EPI eGFR (20 21). Assuming creatinine has been stable day-to-day for at least three months, the eGFR indicates Category G1 (>= 90 mL/min/1.73 m2) [facility] with [id number] 18:30:51* Test Item Value Reference Range Interpretation Comme nts WBC (test code = 6690-2) 9.44 4.30-11.10 RBC (test code = 789-8) 4.26 3.93-5.25 HGB (test code = 718-7) 13.7 g/dL 11.6-15.0 HCT (test code = 4544-3) 39.7 % 35.7-45.2 MCV (test code = 787-2) 93.2 fL 80.6-95.5 MCH (test code = 785-6) 32.2 pg 25.9-32.8 MCHC (test code = 786-4) 34.5 g/dL 31.6-35.1 RDW-SD (test code = 69055-3) 40.6 fL 39.0-49.9 RDW-CV (test code = 788-0) 11.9 % 12.0-15.5 L PLT (test code = 777-3) 230 166-358 MPV (test code = 30861-4) 10.7 fL 9.5-12.9 NRBC/100 WBC (test code = 4519937122) 0.0 0.0-10.0 NRBC x10^3 (test code = 3514373759) See_Comment [Automated messa ge] The system which generated this result transmitted reference range: 10*3/?L. The reference range was not used to interpret this result as normal/abnormal. GRAN MAT (NEUT) % (test code = 770-8) 64.9 % IMM GRAN % (test code = 4389125553) 0.30 % LYMPH % (test code = 736-9) 25.7 % MONO % (test code = 5905-5) 6.0 % EOS % (test code = 713-8) 2.5 % BASO % (test code = 706-2) 0.6 % GRAN MAT x10^3(ANC) (test code = 2609644313) 6.11 10*3/uL 1.88-7.09 IMM GRAN x10^3 (test code = 3416782481) 0.03 10*3/uL 0.00-0.06 LYMPH x10^3 (test code = 731-0) 2.43 10*3/uL 1.32-3.29 MONO x10^3 (test code = 742-7) 0.57 10*3/uL 0.33-0.92 EOS x10^3 (test code = 711-2) 0.24 10*3/uL 0.03-0.39 BASO x10^3 (test code = 704-7) 0.06 10*3/uL 0.01-0.07 Lab Interpretation (test code = 39999-5) [facility]CE [id number] 18:27:00 * Test Item Value Reference Range Interpretation Comme nts ABO & RH (test code = 20) O POSITIVE IAT (test code = 1185) Negative [facility] [id number] 15:42:00* Test Item Value Reference Range Interpretation Comme nts POCT PREG (test code = 1605) Negative On board controls acceptable with C Line (test code = 3574) Yes POCT PREG LOT # (test code = 3575) [id number] POCT PREG TEST DATE ( test code = 3576) 2024-08-14 Lab Interpretation (test cod e = 83804-4) Normal [facility] [id number] 16:00:00* Test Item Value Reference Range Interpretation Comme nts POCT PREG (test code = 1605) Negative On board controls acceptable with C Line (test code = 3574) Yes POCT PREG LOT # (test code = 3575) POCT PREG TEST DATE ( test code = 3576) [facility] [id number] 16:00:00* Test Item Value Reference Range Interpretation Comme nts POCT PREG (test code = 1605) Negative On board controls acceptable with C Line (test code = 3574) Yes POCT PREG LOT # (test code = 3575) POCT PREG TEST DATE ( test code = 3576) [facility] URINALYSIS W SPECIFIC [id number] 15:11:00* Test Item Value Reference Range Interpretation [...] clear Lab Interpretation (test cod e = 16446-6) Abnormal [facility] URINALYSIS W SPECIFIC [id number] 15:11:00* Test Item Value Reference Range Interpretation [...] clear Lab Interpretation (test cod e = 21087-9) Abnormal [facility] [id number] 15:09:00* Test Item Value Reference Range Interpretation Comme nts POCT PREG (test code = 1605) Negative On board controls acceptable with C Line (test code = 3574) Yes POCT PREG LOT # (test code = 3575) POCT PREG TEST DATE ( test code = 3576) [id number] 15:09:00* Test Item Value Reference Range Interpretation Comme nts POCT PREG (test code = 1605) Negative On board controls acceptable with C Line (test code = 3574) Yes POCT PREG LOT # (test code = 3575) POCT PREG TEST DATE ( test code = 3576) [facility] [id number] 02:02:22 * Test Item Value Reference Range Interpretation Comme nts TSH (test code = 7642651582) 2.26 See_Comment [Automated [employer]] The system which generated this result transmitted reference range: 0.45 - 4.70 mIU/L. The reference range was not used to interpret this result as normal/abnormal. Lab Interpretation (test code = 76227-6) Normal [facility]. METABOLIC PANEL (88104)2022-12-28 01:32:39* Test Item Value Reference Range Interpretation Comme nts NA (test code = 0051959383) 139 mmol/L 135-145 K (test code = 3292567118) 3.4 mmol/L 3.5-5.0 L CL (test code = 0776961172) 103 mmol/L 98-108 CO2 TOTAL (test code = 3789514478) 24 mmol/L 23-31 AGAP (test code = 7527294087) 12 2-16 BUN (test code = 1561280276) 8 mg/dL 7-23 GLUCOSE (test code = 5817328186) 121 mg/dL 70-110 H CREATININE (test code = 7323977422) 0.57 mg/dL 0.50-1.04 TOTAL BILI (test code = 7673292266) 1.0 mg/dL 0.1-1.1 CALCIUM (test code = 5905819000) 9.2 mg/dL 8.6-10.6 T PROTEIN (test code = 5404814411) 6.9 g/dL 6.3-8.2 ALBUMIN (test code = 1350307793) 4.4 g/dL 3.5-5.0 ALK PHOS (test code = 2215161356) 47 U/L 34-122 ALTv (test code = 1742-6) 16 U/L 5-35 AST(SGOT) (test code = 5957335318) 22 U/L 13-40 eGFR (test code = 0368166332) 133.9 mL/min/1.73m2 VICENTE (test code = VICENTE) [...] imaging tests). Lab Interpretation (test code = 44210-6) [facility] Test Item Value Reference Range Interpretation Comme nts LIPASE (test code = 2549819206) 67 U/L 0-220 Lab Interpretation (test cod e = 02754-7) [facility] BZZC7290-54-81 01:20:58* Test Item Value Reference Range Interpretation Comme nts WBC (test code = 6690-2) 9.89 See_Comment [Automated [employer]] The system which generated this result transmitted reference range: 4.30 - 11.10 10*3/?L. The reference range was not used to interpret this result as normal/abnormal. RBC (test code = 789-8) 4.29 See_Comment [Automated [employer]] The system which generated this result [...] 34.2 g/dL 31.6-35.1 RDW-SD (test code = 74715-7) 38.2 fL 39.0-49.9 L RDW-CV (test code = 788-0) 11.9 % 12.0-15.5 L PLT (test code = 777-3) 177 See_Comment [Automated [employer]] The system which generated this result transmitted reference range: 166 - 358 10*3/?L. The reference range was not used to interpret this result as normal/abnormal. MPV (test code = 36430-6) 11.6 fL 9.5-12.9 NRBC/100 WBC (test code = 8854647090) 0.0 See_Comment [Automated [employer]] The system which generated this result transmitted reference range: 0.0 - 10.0 /100 WBCs. The reference range was not used to interpret this result as normal/abnormal. NRBC x10^3 (test code = 0160489561) See_Comment [Automated [employer]] The system which generated this result transmitted reference range: 10*3/?L. The reference range was not used to interpret this result as normal/abnormal. GRAN MAT (NEUT) % (test code = 770-8) 64.1 % IMM GRAN % (test code = 7280015590) 0.30 % LYMPH % (test code = 736-9) 28.1 % MONO % (test code = 5905-5) 5.8 % EOS % (test code = 713-8) 1.3 % BASO % (test code = 706-2) 0.4 % GRAN MAT x10^3(ANC) (test code = 4126433367) 6.34 10*3/uL 1.88-7.09 IMM GRAN x10^3 (test code = 3131478362) 0.03 10*3/uL 0.00-0.06 LYMPH x10^3 (test code = 731-0) 2.78 10*3/uL 1.32-3.29 MONO x10^3 (test code = 742-7) 0.57 10*3/uL 0.33-0.92 EOS x10^3 (test code = 711-2) 0.13 10*3/uL 0.03-0.39 BASO x10^3 (test code = 704-7) 0.04 10*3/uL 0.01-0.07 Lab Interpretation (test code = 85335-9) Abnormal [facility] PCWT9737-79-18 01:05:00* Test Item Value Reference Range Interpretation Comme nts POCT PREG (test code = 1605) Negative On board controls acceptable with C Line (test code = 3574) Yes POCT PREG LOT # (test code = 3575) [id number] POCT PREG TEST DATE ( test code = 3576) 2024-03-19 Lab Interpretation (test cod e = 75212-3) Normal [facility] BOAQ1452-57-26 15:47:00* Test Item Value Reference Range Interpretation Comme nts POCT PREG (test code = 1605) Negative On board controls acceptable with C Line (test code = 3574) Yes POCT PREG LOT # (test code = 3575) POCT PREG TEST DATE ( test code = 3576) [facility] GWJF0019-27-00 15:47:00* Test Item Value Reference Range Interpretation Comme nts POCT PREG (test code = 1605) Negative On board controls acceptable with C Line (test code = 3574) Yes POCT PREG LOT # (test code = 3575) POCT PREG TEST DATE ( test code = 3576) [facility] Notes Date/Time Note Provider Source 2023-10-24 16:52:17 a7aXQyMxXSRijAX6DhFN /hxNLosVlLx Gig+ximK6xRQRhud5sW5/a+vC0uZ6TD Vq5232-19-52X84:52:17 Patient states that she is tired and hungry and is ready to leave. States "I just had the trans vag but I don't want to wait for the results, she said it would be an hour. My levels looked Ok so I'm just going to leave". AMA form signed, IV removed and patient left the department. 39416-7Ztrlcyksp department HewvFK8875-09-03H16:53:11[facility] NoteTXT1.2.840.081860.1.13.104. 2.7.2.179482|[id number] [facility] for patient eddq59001-9LofbHPZVOPZECRLJzkzn tted C-CDA narrative textUT[address] DalhZqlzitrneYkcrfkgfhRUPE43662 88051OUDHGMTQBCSXFFOKVTJOJA3306 -03-14T16:53:111.2.840.409646.1 .72.3.15|1.2.840.465149.1.13.10 4.2.7.2.727879_[id number] [facility] 2023-10-24 15:47:36 /58YSTHEWTFmn5933KNe B8Nlmma5LRD HxGgNjM1nMQd7lB5w1bIacsf7TPos3k W14784-43-12T93:47:36 Pt being evaluated in ER at this time. 19425-4Msgkvpecd encounter SowbED0803-02-70F71:47:47Teleph one encounter NoteTXT1.2.840.209563.1.13.104. 2.7.2.627924|[id number] ble for patient jkar32034-2FourFATKIOOKAYTJwlle tted C-CDA narrative izyv449881871Syffwqsf Garcia [address]TX[address] 27292JFVYPEZDIEGPBOYCFSCGEV9891 -03-14T15:47:471.2.840.952233.1 .72.3.15|1.2.840.595396.1.13.10 4.2.7.2.727879_[id number] Francine Mendiola [facility] 2023-10-24 14:46:48 hIDbiMcus9H8JlF922kw Zr0XVprom8i e/UOb5jQAjRYK+F4XwHzey5vXYDWTYf DI5664-23-24C91:46:48 Maylin Rivera is a 23 year old femalePt is calling to speak with a nurse to see if she is ok to take her VENLAFAXINE XR 37.5 mg 24 hr capsule while . Pt has not been taking the medication and is biting skin [place] [address]-5Xpofyrmje encounter ZabeJC2885-30-57T44:50:37Teleph one encounter NoteTXT1.2.840.495931.1.13.104. 2.7.2.801476|[id number] ble for patient obko43633-7IemyPDFGMEVGLSZJlgjb tted C-CDA narrative aunf212525063Ubijvv P Robinson[address]TX[address] 82605TJLAQQGSCADNCXAWNFQLSW9105 -03-14T14:50:371.2.840.375492.1 .72.3.15|1.2.840.931079.1.13.10 4.2.7.2.727879_[id number] Andriy Godinez [facility] 2023-10-24 11:37:27 xEtDJ5411Py+GBtBEQj6 Q3i26OjhvOn ZphoOpCBKZV8KEiAJxmZJtjmqEEsV6U 241672-61-07G15:37:27 Patient reports being 6 weeks and began cramping this AM with no discharge. Patient has not had first appointment yet with OB which is scheduled for the . N5Brmqrmclkqujkg signed by Manda Harrell RN at 10/24/2023 11:38 AM JVJ78367-9Vqlpjlcvj department Triage qrznKJ5427-24-58A12:38:44[facility] department Triage noteTXT1.2.840.238975.1.13.104. 2.7.2.417508|[id number] ble for patient xfdw73865-6Qroqstwmp department NoteLNNARRATIVEFormatted C-CDA narrative wkrh802976988Gdgo M Hayes RN[address] BswmFztoqdaxmGjsynenhnDTYH87877 05841GGNUZXAKDISEHXJWKFVDEX9069 -03-14T11:38:441.2.840.557008.1 .72.3.15|1.2.840.722689.1.13.10 4.2.7.2.727879_[id number] Manda Harrell RN [facility] 2023-08-13 11:31:01 Hny4RseWEoWzZ/OedFFe senior energy trader+aR2WMgwN Xoji1tQvisCCdkkaEU76lpo0ndFjquV PI5863-69-66U33:31:01 Maylin Rivera is a 23 year old femaleovarian cysts on one or two ovaries x called to schedule appt with PGY.Please contact pt at [phone] (home) 30612-6Zwcsrnzwl encounter AfblUB6645-71-88N19:31:38Teleph one encounter NoteTXT1.2.840.433499.1.13.104. 2.7.2.948341|[id number] ble for patient yjxg73475-8FfwaYJPKGXLPAEZDqckl tted C-CDA narrative afvm553714301Yboiebqjs L [address]TX[address] 03872APBHALIXLNAOCJLSYBGFTI2120 -01-02T11:31:381.2.840.403952.1 .72.3.15|1.2.840.783357.1.13.10 4.2.7.2.727879_[id number] Avelina Crandall [facility] 2023-04-24 12:05:28 ZTcNV2njDyKDenfOv1Dm Opqsp4YzTjg 3vuRDLTsdvIX6t39kAL3Xe1jlXb8OD6 gw5844-75-73J54:05:28 Pt left before obtaining discharge paperwork. 18433-0Hfurvndgs department IiobBJ2984-12-05I28:05:42[facility] NoteTXT1.2.840.484531.1.13.104. 2.7.2.640960|[id number] ble for patient bkot08021-5QatrEV366518648Ecbsy jan Hall [address] 69031MDRXTDHNFUNQLMZVIQWBEL2564 -09-13T12:05:421.2.840.698762.1 .72.3.15|1.2.840.918686.1.13.10 4.2.7.2.727879_[id number] Anne Hall RN [facility] 2023-04-24 10:09:17 NUt3hJ1vqsnaY3ZRn2qv e9eLzSTBvZT uQHhL1QJH3oXwTKyAkejYCMHzId9ixU 8n0933-31-59D97:09:17 Patient states "I have one positive test and one negative test for . So I just wanted to make sure."Patient here for confirmation. 36741-9Vlhupwrph department Triage jcjeYJ9551-77-72H56:09:58[facility] department Triage noteTXT1.2.840.765155.1.13.104. 2.7.2.440922|[id number] ble for patient ofki01805-8Zerlfxime department VyxfXF943215190Rakyc S Cryer RN[address] TwmgQwkhtykmbPstaxfhudPISQ725[address] 90307GNCJIKZVREEPAKMBVZSGNF0052 -09-13T10:09:581.2.840.857959.1 .72.3.15|1.2.840.609628.1.13.10 4.2.7.2.727879_[id number] Amanda Hoang RN [facility] 2023-04-08 08:38:40 bxdYHYz5XXvEPvJfiqDK lnte3a/8Vkj 6C21dEhLjVYdEKuBjohpFK+4c7xbYxx YP1244-80-75K66:38:40 Spoke with patient, verbalized understanding medication is at the pharmacy. 34496-1Omkoofgsu encounter VisjVY8703-48-87R98:40:04Teleph one encounter NoteTXT1.2.840.367989.1.13.104. 2.7.2.505185|[id number] ble for patient apur09705-0IocaOU498529179Wiygz y L Gavin RN[address]TX[address] 73757DYXMVADDYSXKGJBYVEFMCC6061 -08-28T08:40:041.2.840.025668.1 .72.3.15|1.2.840.858780.1.13.10 4.2.7.2.727879_[id number] Nora Alonso RN [facility] 2023-04-04 16:31:40 EXpNtv9FPQkNl8WTei4O yglWeZaVOQP pBvrGvbs34SXUzmpZWyp61ZbaCUIA9H sE1627-05-53U66:31:40 I have sent nausea medications to the pharmacyPlease let patient know 23860-2Oduzitkwe encounter HirqJV2189-10-11L47:32:32Teleph one encounter NoteTXT1.2.840.054820.1.13.104. 2.7.2.969036|[id number] ble for patient dxtf55314-9LzfqXKGGJDFJAC[address]TXTX[address] 10931TFLQXRGMIQYSWPMTURJZTE6216 -08-24T16:32:321.2.840.790561.1 .72.3.15|1.2.840.068786.1.13.10 4.2.7.2.727879_[id number] [facility] 2023-04-01 13:30:00 BR3Ut21R5MVDwhEL2wZ3 OydUVNhzHRo iNCce014ViVSe8KfX5TuYzPZO1xPrqp gt8142-75-33I58:30:00 Images from the original note were not included.Venipuncture collection performed by clean technique on the left anticubitus. Total of 1 attempts were made. Slight pressure and a bandage/dressing were applied to the site(s). The patient experienced no complications. The following specimens were processed according to instructions and sent to [facility] laboratories per lab order on 04/01/2023: LT BLUE SST 3 RED LAV 1 PPT DK GREEN (LiHep) DK GREEN (SodH) KRISHNAN DK BLUE (K2) DK BLUE (S) ACD Blood Culture NIPT/NTD 00571-5Hjxls WsesBS0972-01-63T54:37:41Nurse NoteTXT1.2.840.411600.1.13.104. 2.7.2.915248|[id number] ble for patient gvjx99401-3Tuxby NoteLNUT[address] CrmaMevxcwogkWlsegmktpOBMF57214 83140EMADIFRUCYVCYGVKCOLJGZ6004 -08-21T13:37:411.2.840.586710.1 .72.3.15|1.2.840.849970.1.13.10 4.2.7.2.727879_[id number] [facility] 2023-03-13 14:39:33 78agCl0blstMExBrlqTX 8cdTK8uLsZo q6tKrbp8LrH8ZPp7YUF5K0Wn8QWPznb vx8094-60-17U77:39:33 Rx sent, let patient know, and to follow-up as scheduled. 57796-4Dicyrubll encounter BonzVS6585-65-76X72:39:33Teleph one encounter NoteTXT1.2.840.101782.1.13.104. 2.7.2.633048|[id number] ble for patient bqjo87335-7FjqiDDZHAJBGVD[address]vestonTX[place] 60506JCVRSJNBTRTQWHLEXZSSZO2457 -08-02T14:39:331.2.840.379589.1 .72.3.15|1.2.840.851397.1.13.10 4.2.7.2.727879_[id number] [facility] 2023-03-11 08:25:31 b6wUoqTeLo8BexK9EIx+ VbI6KnLi4tZ Qvo7m2GhZ4JbJIDXu0b8NSg9NNl4eI+ ek0134-78-56A86:25:31 NICOLE 02/14/23NOV 03/14/23LRD 02/14/23Routing to correct pool 62838-5Frnpqppez encounter DyzoEO3374-74-24Y87:26:31Teleph one encounter NoteTXT1.2.840.018645.1.13.104. 2.7.2.138494|[id number] ble for patient udjt73927-0BfxiYKYI-HPNGUVMXTQL N-PSYCHIATRY[address] 88970VUSYIEOQANATKVRCNBBGXR5879 -07-31T08:26:311.2.840.170581.1 .72.3.15|1.2.840.629540.1.13.10 4.2.7.2.727879_[id number] PN-PSYCHIATRY [facility]
--- NOTE | 2023-10-26 14:26 | ER ---
Nurse's Notes [facility] Name: Maylin Zuniga Age: 23 yrs Sex: Female : 2000 Arrival Date: 10/26/2023 Time: 11:35 Bed Treatment Private MD: Diagnosis: related conditions, unspecified, first trimester;Lower abdominal pain, unspecified Presentation: 10/25 11:51 Chief complaint: Patient states: "I am just trying to make sure my HCG levels are going aa5 up because I am not having symptoms anymore". Pt denies vaginal bleeding, denies pain. Reports being seen here 10/21/23. 11:51 Coronavirus screen: At this time, the client does not indicate any symptoms associated aa5 with coronavirus-19. Ebola Screen: Patient denies travel to an Ebola-affected area in the 21 days before illness onset. Initial Sepsis Screen: Does the patient meet any 2 criteria? No. Patient's initial sepsis screen is negative. Does the patient have a suspected source of infection? No. Patient's initial sepsis screen is negative. Risk Assessment: Do you want to hurt yourself or someone else? Patient reports no desire to harm self or others. Onset of symptoms was October 26, 2023. 11:51 Acuity: VINNY 4 aa5 11:51 Method Of Arrival: Ambulatory aa5 Triage Assessment: 12:00 General: Appears in no apparent distress. Behavior is calm, cooperative, appropriate bp for age. Pain: Denies pain. 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 - Social history:: Smoking status: Patient/guardian denies using tobacco. Screenin:37 [facility] ED Fall Risk Assessment (Adult) History of falling in the last 3 months, bp including since admission No falls in past 3 months (0 pts) Confusion or Disorientation No (0 pts) Intoxicated or Sedated No (0 pts) Impaired Gait No (0 pts) Mobility Assist Device Used No (0 pt) Altered Elimination No (0 pt) Score/Fall Risk Level 0 - 2 = Low Risk. Abuse screen: Denies threats or abuse. Denies injuries from another. Nutritional screening: No deficits noted. Tuberculosis screening: No symptoms or risk factors identified. Assessment: 12:00 General: SEE TRIAGE NOTE. bp 14:37 Reassessment: DC HOME AMBULATORY. bp Vital Signs: 11:51 BP 149 / 98; Pulse 86; Resp 16 S; Temp 97.8(TE); Pulse Ox 100% on R/A; aa5 11:51 Weight 58.97 kg (R); Height 5 ft. 4 in. (R); aa5 14:37 BP 137 / 85; Pulse 79; Resp 16; Temp 98; Pulse Ox 100% ; bp 11:51 Body Mass Index 22.31 (58.97 kg, 162.56 cm) aa5 ED Course: 11:38 Patient arrived in ED. mg5 11:42 [facility]isa Gallardo PA-C [facility]. sb4 11:43 Rhonda Yi MD is Attending Physician. sb4 11:51 Arm band placed on. aa5 11:56 Triage completed. aa5 12:20 Guanakito Molina, RN is Primary Nurse. bp 13:30 Initial lab(s) drawn, by il, sent to lab. bp 14:24 Cele Hayes MD is Referral Physician. cp3 14:37 Patient has correct armband on for positive identification. bp 14:38 No provider procedures requiring assistance completed. Patient did not have IV access bp during this emergency room visit. Administered Medications: No medications were administered Medication: 14:37 VIS not applicable for this client. bp Outcome: 14:25 Discharge ordered by . cp3 14:38 Discharged to home ambulatory, bp 14:38 Condition: stable 14:38 Discharge instructions given to patient, Instructed on discharge instructions, follow up and referral plans. Demonstrated understanding of instructions, follow-up care, 14:39 Patient left the ED. bp Signatures: Rhonda Yi MD MD cp3 Shira Foley, RN RN aa5 Guanakito Molina, RN RN bp Misa Gallardo PA-C PA-C [facility]
--- NOTE | 2023-10-26 14:26 | EDPHYS ---
Physician Documentation [facility] Name: Maylin Zuniga Age: 23 yrs Sex: Female : 2000 Arrival Date: 10/26/2023 Time: 11:35 Bed Treatment Private MD: ED Physician Rhonda Yi HPI: 10/25 13:42 This 23 yrs old Female presents to ER via Ambulatory with complaints of Preg. cp3 Test. 13:42 Patient is a 23-year-old female who presents to the ED secondary to abdominal cramping cp3 that is making her worried that she is having a miscarriage. The patient endorses that she is about 4-1/2 weeks as identified on evaluation this Saturday. Patient denies vomiting or vaginal bleeding. The patient is just deathly afraid of a miscarriage. BUNDLE CUTTER: 11:52 2, Full Term 0, Premature 0, 1, Living 0, LMP 09/18/2023, aa5 unknown Historical: - Allergies: 11:52 NKDA; aa5 - PMHx: 11:52 Anxiety; depressive disorder; ovarian cyst rupture (depressive disorder); aa5 - Immunization history:: Adult Immunizations up to date. - Social history:: Smoking status: Patient/guardian denies using tobacco. ROS: 13:42 Cardiovascular: Negative for chest pain, edema, cp3 13:42 Respiratory: Negative for cough, dyspnea on exertion, 13:42 Abdomen/GI: Positive for abdominal cramps, 13:42 : Negative for vaginal bleeding, vaginal discharge, 13:42 : Negative for urinary symptoms, flank pain, difficulty urinating, vaginal bleeding, vaginal discharge, 14:26 Constitutional: Negative for fever, chills, and weight loss, Eyes: Negative for injury, cp3 pain, redness, and discharge, ENT: Negative for injury, pain, and discharge, Neck: Negative for injury, pain, and swelling, Cardiovascular: Negative for chest pain, palpitations, and edema, Respiratory: Negative for shortness of breath, cough, wheezing, and pleuritic chest pain, MS/Extremity: Negative for injury and deformity, Skin: Negative for injury, rash, and discoloration, Neuro: Negative for headache, weakness, numbness, tingling, and seizure, 14:26 Abdomen/GI: Positive for abdominal cramps, Exam: 13:44 Constitutional: This is a well developed, well nourished patient who is awake, alert, cp3 and in no acute distress. Head/Face: Normocephalic, atraumatic. Chest/axilla: Normal chest wall appearance and motion. Nontender with no deformity. No lesions are appreciated. Cardiovascular: Regular rate and rhythm with a normal S1 and S2. No gallops, murmurs, or rubs. Normal PMI, no JVD. No pulse deficits. Abdomen/GI: Soft, non-tender, with normal bowel sounds. No distension or tympany. No guarding or rebound. No evidence of tenderness throughout. Back: No spinal tenderness. No costovertebral tenderness. Full range of motion. Skin: Warm, dry with normal turgor. Normal color with no rashes, no lesions, and no evidence of cellulitis. Neuro: Awake and alert, GCS 15, oriented to person, place, time, and situation. Cranial nerves II-XII grossly intact. Motor strength 5/5 in all extremities. Sensory grossly intact. Cerebellar exam normal. Normal gait. Psych: Awake, alert, with orientation to person, place and time. Behavior, mood, and affect are within normal limits. Vital Signs: 11:51 BP 149 / 98; Pulse 86; Resp 16 S; Temp 97.8(TE); Pulse Ox 100% on R/A; aa5 11:51 Weight 58.97 kg (R); Height 5 ft. 4 in. (R); aa5 14:37 BP 137 / 85; Pulse 79; Resp 16; Temp 98; Pulse Ox 100% ; bp 11:51 Body Mass Index 22.31 (58.97 kg, 162.56 cm) aa5 MDM: 12:32 Patient medically screened. cp3 13:44 Differential Diagnosis first trimester , abdominal cramping, threatened cp3 miscarriage. Data reviewed: vital signs, nurses notes, lab test result(s), Beta HCG:. 14:23 Consideration of Admission/Observation Escalation of care including cp3 admission/observation considered. 10/25 12:32 Order name: HCG-Quantitative; Complete Time: 14:21 cp3 Administered Medications: No medications were administered Disposition Summary: 10/26/23 14:25 Discharge Ordered Notes: your BHCG level is 1494 Location: Home cp3 Condition: Stable cp3 Diagnosis - related conditions, unspecified, first trimester cp3 - Lower abdominal pain, unspecified cp3 Followup: cp3 - With: Cele Hayes MD - When: As needed - Reason: Continuance of care Discharge Instructions: - Discharge Summary Sheet cp3 - Abdominal Pain, Adult cp3 - Abdominal Pain During cp3 Forms: - Medication Reconciliation Form cp3 - Thank You Letter cp3 - Antibiotic Education cp3 - Prescription Opioid Use cp3 - Patient Portal Instructions cp3 - Leadership Thank You Letter cp3 Signatures: Dispatcher [employer] Rhonda Dempsey MD MD cp3 Shira Foley RN RN aa5
[2023-10-26 15:02] VITALS: BP 137/85; TEMP 98; O2SAT 100
== END ==
LOC: ER 11:35
DX: O26.891 Other specified pregnancy related conditions, first trimester (principal); Z3A.01 Less than 8 weeks gestation of pregnancy
CPT/HCPCS: 36415; 84702; 99283

== ENCOUNTER → 2023-10-30 | Emergency (ER) | payer OTHER ==
--- OUTSIDE RECORDS SUMMARY | 2023-10-30 07:11 | XMS REPORT | Continuity of Care Document ---
Author Name Unknown Address [address] [facility] [address] [place] [address] [facility] Address [address] [facility] [address] [place] [address] Care Team Providers Care Stump Shooter Name Role Phone ELIZA BOWERS Primary Care Physician Unavailab LESLIE Austin Attending Clinician Unavail able NACHO NGUYEN Attending Clinician Unavailable Nacho Nguyen MD Attending Clinician [phone] [phone] Attending Clinician Unavailable SYDNEY LUBIN Attending Clinician Unavailable BRUNA ARRINGTON Attending Clinician Unavailable BRUNA ARRINGTON Attending Clinician Unavailable Doctor Unassigned, Roberts Attending Clinician U navailable Pgy2 Attending Clinician Unavailable Sydney Lubin MD Attending Clinician [phone] Gretchen Cao Attending Clinician [phone] ELIZA BOWERS Attending Clinician Unavailable RAHEL DICKSON Attending Clinician Unavailable Rahel Aguilar Attending Clinician [phone] Eliza Heller Attending Clinician [phone], [facility] Attending Clinician Unavailable Leslie Diane Attending Clinician + YAW BRO Attending Clinician Unavailable Yaw Bro DO Attending Clinician [phone] Nurse, [facility] Attending Clinician Un available Unknown, Attending Attending Clinician Unavailab le UNKNOWN, ATTENDING Attending Clinician Unavailab BAILEE Vivar Attending Clinician Unavailable Carla Vaughn CNM Attending Clinician [phone] CARLA VAUGHN Attending Clinician Unavaila ble Provider, [facility] Temp Attending Clinician Erica vaROSALES Chan Attending Clinician UnavailROSALES Mark[place] Attending Clinician UnavailROSALES Helm Attending Clinician Unavailradha Barrientos ROLL CONTOUR GRINDER, Jacob Love Attending Clinician [phone] JACOB BARRIENTOS Attending Clinician Unavailab le Visit, [facility] Nurse Attending Clinician Unava ilable ALIVIA LEE Attending Clinician Unavaila ble Alivia Swanson Attending Clinician [phone] CINDY APARICIO Attending Clinician Unavailradha Jones RN, Rayne Godoy Attending Clinician Unavailab NI Mckeon Attending Clinician Unavailable Joel Matt DO Attending Clinician [phone] Elena Lara Attending Clinician [phone] Provider, [facility] Attending Clinician Un available ELENA HATFIELD Attending Clinician Unavailable Fletcher Ramesh MD Attending Clinician [phone] Frank WISE, Ethel Attending Clinician Erica vailable Katarina Attending Clinician Unavailable Alvin Nobles Attending Clinician [phone] NACHO NGUYEN Admitting Clinician Unavailable YAW BRO Admitting Clinician Unavailable Katarina Admitting Clinician Unavailable Payers Payer Name Policy Type Policy Number Effective Date Expirati on Date Source [place] [id number] 2023 00:00:00 MEDICAID GENERIC [id number] 2023 00:00:00 [facility] [id number] 2020 00:00:00 [facility] [id number] 2019 00:00:00 Problems Condition Name Condition Details Condition Category Status Onset Date Resolution Date Last Treatment Date Treating Clinician Comments Source Chlamydia trachomati s infection of lower genitourin jeremy sites Chlamydia trachomati s infection of lower genitourin jeremy sites Disease Active 2- 00:00: 00 [facility] Need for prophylact ic vaccinatio n and inoculatio n against influenza Need for prophylact ic vaccinatio n and inoculatio n against influenza Disease Active 11-02 00:00: 00 [facility] Feeling sad Feeling sad Disease Active 12-30 00:00: 00 [facility] Encounter for other general counseling or advice on contracept ion Encounter for other general counseling or advice on contracept ion Disease Active 12-16 00:00: 00 [facility] Absence of menstruati on Absence of menstruati on Disease Active 11-02 00:00: 00 [facility] Breast tenderness in female Breast tenderness in female Disease Active 11-02 00:00: 00 [facility] Class 1 obesity due to excess calories with serious comorbidit y and body mass index (BMI) of 34.0 to 34.9 in adult Class 1 obesity due to excess calories with serious comorbidit y and body mass index (BMI) of 34.0 to 34.9 in adult Disease Active 11-02 00:00: 00 [facility] BMI 34.0-34.9, adult BMI 34.0-34.9, adult Disease Active 11-02 00:00: 00 [facility] Elevated blood pressure reading without diagnosis of hypertensi on Elevated blood pressure reading without diagnosis of hypertensi on Disease Active 10-02 00:00: 00 [facility] Other depression Other depression Disease Active - 00:00: 00 [facility] Nexplanon removal Nexplanon removal Disease Active 08-20 00:00: 00 [facility] Screening examinatio n for STD (sexually transmitte d disease) Screening examinatio n for STD (sexually transmitte d disease) Disease Active 08-20 00:00: 00 [facility] BMI 27.0-27.9, adult BMI 27.0-27.9, adult Disease Active 2018-08 0 00:00: 00 [facility] BMI 29.0-29.9, adult BMI 29.0-29.9, adult Disease Active 2018-08 00:00: 00 [facility] HPV vaccine counseling HPV vaccine counseling Disease Active 2018-08 00:00: 00 [facility] Over weight Over weight Disease Active 2018-08 00:00: 00 [facility] Lump or mass in breast Lump or mass in breast Disease Active 11-22 00:00: 00 [facility] Allergies, Adverse Reactions, Alerts Allergy Name Allergy Type Status Severity Reaction(s) Onset Date Inactive Date Treating Clinician Comments Source NO KNOWN ALLERGIE S Drug Class Active [facility] Social History Social Habit Start Date Stop Date Quantity Comments Source Gender identity [facility] Sexual orientation U [facility] Alcohol intake 2023-08-20 00:00:00 2023-08-20 00:00:00 Current drinker of alcohol (finding) [facility] History of Social function 2023-02-14 00:00:00 2023-02-14 00:00:00 [facility] Exposure to SARS-CoV-2 (event) 2022-12-24 00:00:00 2023-01-03 09:29:00 Not sure [facility] History SDOH Alcohol Frequency 2023-01-01 00:00:00 2023-01-01 00:00:00 1 [facility] History SDOH Alcohol Std Drinks 2023-01-01 00:00:00 2023-01-01 00:00:00 0 [facility] History SDOH Alcohol Binge 2023-01-01 00:00:00 2023-01-01 00:00:00 1 [facility] History SDOH Social Connections Phone 2023-01-01 00:00:00 2023-01-01 00:00:00 4 [facility] History SDOH Social Connections Get Together 2023-01-01 00:00:00 2023-01-01 00:00:00 2 [facility] History SDOH Social Connections Confucianist 2023-01-01 00:00:00 2023-01-01 00:00:00 3 [facility] SDOH Social Connections Membership 2023-01-01 00:00:00 2023-01-01 00:00:00 2 [facility] SDOH Social Connections Meetings 2023-01-01 00:00:00 2023-01-01 00:00:00 1 [facility] SDOH Social Connections Living 2023-01-01 00:00:00 2023-01-01 00:00:00 7 [facility] SDOH Physical Activity DPW 2023-01-01 00:00:00 2023-01-01 00:00:00 1 [facility] SDOH Physical Activity MPS 2023-01-01 00:00:00 2023-01-01 00:00:00 3 [facility] History SDOH Stress 2023-01-01 00:00:00 2023-01-01 00:00:00 5 [facility] History SDOH Financial 2023-01-01 00:00:00 2023-01-01 00:00:00 4 [facility] History SDOH Food Worry 2023-01-01 00:00:00 2023-01-01 00:00:00 1 [facility] History SDOH Food Scarcity 2023-01-01 00:00:00 2023-01-01 00:00:00 2 [facility] History SDOH Transport Med 2023-01-01 00:00:00 2023-01-01 00:00:00 2 [facility] History SDOH Transport Non-Med 2023-01-01 00:00:00 2023-01-01 00:00:00 2 [facility] History SDOH Housing Unable to Pay 2023-01-01 00:00:00 2023-01-01 00:00:00 2 [facility] History SDOH Housing Places Lived 2023-01-01 00:00:2023-01-01 00:00:00 1 [facility] History SDOH Housing Homeless Last Year 2023-01-01 00:00:00 2023-01-01 00:00:00 2 [facility] Tobacco use and exposure 2022-12-27 00:00:00 2022-12-27 00:00:00 Smokeless tobacco non-user [facility] Alcohol Comment 2021-11-02 00:00:00 2021-11-02 00:00:00 social [facility] Sex Assigned At 2001 00:00:00 2000 00:00:00 [facility] Smoking Status Start Date Stop Date Source Never smoked tobacco [facility] Medications Ordered Medication Name Filled Medication Name Start Date Stop Date Current Medication? Ordering Clinician Indication Dosage Frequency Signature (SIG) Comments Components Source ondansetron 4 mg tablet 08-20 00:00: 00 Yes [id number] 4mg Take 1 tablet by mouth every 8 (eight) hours as needed for Nausea and Vomiting (N/V). [facility] ondansetron 4 mg tablet 08-20 00:00: 00 Yes [id number] 4mg Take 1 tablet by mouth every 8 (eight) hours as needed for Nausea and Vomiting (N/V). [facility] ondansetron 4 mg tablet 08-20 00:00: 00 Yes [id number] 4mg Take 1 tablet by mouth every 8 (eight) hours as needed for Nausea and Vomiting (N/V). [facility] ondansetron 4 mg tablet 0 08-20 00:00: 00 Yes [id number] 4mg Take 1 tablet by mouth every 8 (eight) hours as needed for Nausea and Vomiting (N/V). [facility] ondansetron 4 mg tablet 2023-0 08-20 00:00: 00 Yes [id number] 4mg Take 1 tablet by mouth every 8 (eight) hours as needed for Nausea and Vomiting (N/V). [facility] ondansetron 4 mg tablet 40 08-20 00:00: 00 Yes [id number] 4mg Take 1 tablet by mouth every 8 (eight) hours as needed for Nausea and Vomiting (N/V). [facility] omeprazole 40 mg capsule 3-0 04-18 00:00: 00 Yes [id number] 40mg Take 1 capsule by mouth in the morning. [facility] omeprazole 40 mg capsule 2022-0 04-18 00:00: 00 Yes [id number] 40mg Take 1 capsule by mouth in the morning. [facility] omeprazole 40 mg capsule 2022-0 04-18 00:00: 00 Yes [id number] 40mg Take 1 capsule by mouth in the morning. [facility] omeprazole 40 mg capsule 2022-0 04-18 00:00: 00 Yes [id number] 40mg Take 1 capsule by mouth in the morning. [facility] omeprazole 40 mg capsule 2022-0 04-18 00:00: 00 Yes [id number] 40mg Take 1 capsule by mouth in the morning. [facility] omeprazole 40 mg capsule 2022-0 04-18 00:00: 00 Yes [id number] 40mg Take 1 capsule by mouth in the morning. [facility] omeprazole 40 mg capsule 2022-0 04-18 00:00: 00 Yes [id number] 40mg Take 1 capsule by mouth in the morning. [facility] omeprazole 40 mg capsule 2022-0 04-18 00:00: 00 Yes [id number] 40mg Take 1 capsule by mouth in the morning. [facility] omeprazole 40 mg capsule 3-0 04-18 00:00: 00 Yes [id number] 40mg Take 1 capsule by mouth in the morning. [facility] omeprazole 40 mg capsule 3-0 04-18 00:00: 00 Yes [id number] 40mg Take 1 capsule by mouth in the morning. [facility] ondansetron 8 mg tablet 2022-0 824 00:00: 00 Yes [id number] 8mg Take 1 tablet by mouth every 8 (eight) hours as needed for Nausea and Vomiting (N/V). [facility] ondansetron 8 mg tablet 2022-0 8-24 00:00: 00 Yes [id number] 8mg Take 1 tablet by mouth every 8 (eight) hours as needed for Nausea and Vomiting (N/V). [facility] ondansetron 8 mg tablet 3-0 8-24 00:00: 00 Yes [id number] 8mg Take 1 tablet by mouth every 8 (eight) hours as needed for Nausea and Vomiting (N/V). [facility] ondansetron 8 mg tablet 2023-0 8-24 00:00: 00 Yes [id number] 8mg Take 1 tablet by mouth every 8 (eight) hours as needed for Nausea and Vomiting (N/V). [facility] ondansetron 8 mg tablet 3-0 8-24 00:00: 00 Yes [id number] 8mg Take 1 tablet by mouth every 8 (eight) hours as needed for Nausea and Vomiting (N/V). [facility] ondansetron 8 mg tablet 3-0 8-24 00:00: 00 Yes [id number] 8mg Take 1 tablet by mouth every 8 (eight) hours as needed for Nausea and Vomiting (N/V). [facility] ondansetron 8 mg tablet 3-0 8-24 00:00: 00 Yes [id number] 8mg Take 1 tablet by mouth every 8 (eight) hours as needed for Nausea and Vomiting (N/V). [facility] ondansetron 8 mg tablet 3-0 8-24 00:00: 00 Yes [id number] 8mg Take 1 tablet by mouth every 8 (eight) hours as needed for Nausea and Vomiting (N/V). [facility] ondansetron 8 mg tablet 3-0 8-24 00:00: 00 Yes [id number] 8mg Take 1 tablet by mouth every 8 (eight) hours as needed for Nausea and Vomiting (N/V). [facility] ondansetron 8 mg tablet 2023-0 8-24 00:00: 00 Yes [id number] 8mg Take 1 tablet by mouth every 8 (eight) hours as needed for Nausea and Vomiting (N/V). [facility] ondansetron 8 mg tablet 2023-0 8-24 00:00: 00 Yes [id number] 8mg Take 1 tablet by mouth every 8 (eight) hours as needed for Nausea and Vomiting (N/V). [facility] omeprazole 40 mg capsule 2022-0 8- 00:00: 00 Yes [id number] 40mg Take 1 capsule by mouth in the morning. [facility] omeprazole 40 mg capsule 2022-0 8- 00:00: 00 Yes [id number] 40mg Take 1 capsule by mouth in the morning. [facility] omeprazole 40 mg capsule 2022-0 8- 00:00: 00 Yes [id number] 40mg Take 1 capsule by mouth in the morning. [facility] omeprazole 40 mg capsule 2022-0 8- 00:00: 00 Yes [id number] 40mg Take 1 capsule by mouth in the morning. [facility] omeprazole 40 mg capsule 0 8 00:00: 00 Yes [id number] 40mg Take 1 capsule by mouth in the morning. [facility] omeprazole 40 mg capsule 0 04-01 00:00: 00 04-18 00:00 :00 No [id number] 40mg Take 1 capsule by mouth in the morning. [facility] omeprazole 40 mg capsule 0 04-01 00:00: 00 04-18 00:00 :00 No [id number] 40mg Take 1 capsule by mouth in the morning. [facility] VENLAFAXINE XR 37.5 mg 24 hr capsule 2022-0 03-13 00:00: 00 Yes [id number] 37.5mg TAKE 1 CAPSULE BY MOUTH DAILY WITH BREAKFAST. [facility] VENLAFAXINE XR 37.5 mg 24 hr capsule 2022-0 8- 00:00: 00 Yes [id number] 37.5mg TAKE 1 CAPSULE BY MOUTH DAILY WITH BREAKFAST. [facility] VENLAFAXINE XR 37.5 mg 24 hr capsule 2022-0 8- 00:00: 00 Yes [id number] 37.5mg TAKE 1 CAPSULE BY MOUTH DAILY WITH BREAKFAST. [facility] VENLAFAXINE XR 37.5 mg 24 hr capsule 2023-0 8- 00:00: 00 Yes [id number] 37.5mg TAKE 1 CAPSULE BY MOUTH DAILY WITH BREAKFAST. [facility] VENLAFAXINE XR 37.5 mg 24 hr capsule 3-0 8- 00:00: 00 Yes [id number] 37.5mg TAKE 1 CAPSULE BY MOUTH DAILY WITH BREAKFAST. [facility] VENLAFAXINE XR 37.5 mg 24 hr capsule 3-0 8- 00:00: 00 Yes [id number] 37.5mg TAKE 1 CAPSULE BY MOUTH DAILY WITH BREAKFAST. [facility] VENLAFAXINE XR 37.5 mg 24 hr capsule 3-0 8- 00:00: 00 Yes [id number] 37.5mg TAKE 1 CAPSULE BY MOUTH DAILY WITH BREAKFAST. [facility] VENLAFAXINE XR 37.5 mg 24 hr capsule 3-0 8- 00:00: 00 Yes [id number] 37.5mg TAKE 1 CAPSULE BY MOUTH DAILY WITH BREAKFAST. [facility] VENLAFAXINE XR 37.5 mg 24 hr capsule 3-0 8- 00:00: 00 Yes [id number] 37.5mg TAKE 1 CAPSULE BY MOUTH DAILY WITH BREAKFAST. [facility] VENLAFAXINE XR 37.5 mg 24 hr capsule 3-0 8- 00:00: 00 Yes [id number] 37.5mg TAKE 1 CAPSULE BY MOUTH DAILY WITH BREAKFAST. [facility] VENLAFAXINE XR 37.5 mg 24 hr capsule 3-0 8- 00:00: 00 Yes [id number] 37.5mg TAKE 1 CAPSULE BY MOUTH DAILY WITH BREAKFAST. [facility] VENLAFAXINE XR 37.5 mg 24 hr capsule 3-0 8- 00:00: 00 Yes [id number] 37.5mg TAKE 1 CAPSULE BY MOUTH DAILY WITH BREAKFAST. [facility] VENLAFAXINE XR 37.5 mg 24 hr capsule 3-0 8- 00:00: 00 Yes [id number] 37.5mg TAKE 1 CAPSULE BY MOUTH DAILY WITH BREAKFAST. [facility] VENLAFAXINE XR 37.5 mg 24 hr capsule 3-0 8- 00:00: 00 Yes [id number] 37.5mg TAKE 1 CAPSULE BY MOUTH DAILY WITH BREAKFAST. [facility] VENLAFAXINE XR 37.5 mg 24 hr capsule 3-0 8- 00:00: 00 Yes [id number] 37.5mg TAKE 1 CAPSULE BY MOUTH DAILY WITH BREAKFAST. [facility] VENLAFAXINE XR 37.5 mg 24 hr capsule 2022-0 8 00:00: 00 Yes [id number] 37.5mg TAKE 1 CAPSULE BY MOUTH DAILY WITH BREAKFAST. [facility] venlafaxine XR 37.5 mg 24 hr capsule 2022-0 7 00:00: 00 Yes [id number] 37.5mg Take 1 capsule by mouth daily with breakfast. [facility] venlafaxine XR 37.5 mg 24 hr capsule 2022-0 7 00:00: 00 Yes [id number] 37.5mg Take 1 capsule by mouth daily with breakfast. [facility] venlafaxine XR 37.5 mg 24 hr capsule 0 706 00:00: 00 03-13 00:00 :00 No [id number] 37.5mg Take 1 capsule by mouth daily with breakfast. [facility] SERTraline 25 mg tablet 3-0 5-25 00:00: 00 Yes [id number] 25mg Take 1 tablet by mouth in the morning. [facility] SERTraline 25 mg tablet 2022-0 5-25 00:00: 00 Yes [id number] 25mg Take 1 tablet by mouth in the morning. [facility] SERTraline 25 mg tablet 3-0 5-25 00:00: 00 Yes [id number] 25mg Take 1 tablet by mouth in the morning. [facility] SERTraline 25 mg tablet 3-0 5-25 00:00: 00 Yes [id number] 25mg Take 1 tablet by mouth in the morning. [facility] SERTraline 25 mg tablet 3-0 5-25 00:00: 00 Yes [id number] 25mg Take 1 tablet by mouth in the morning. [facility] SERTraline 25 mg tablet 3-0 5-25 00:00: 00 Yes [id number] 25mg Take 1 tablet by mouth in the morning. [facility] SERTraline 25 mg tablet 2022-0 5-25 00:00: 00 Yes [id number] 25mg Take 1 tablet by mouth in the morning. [facility] SERTraline 25 mg tablet 2022-0 5-25 00:00: 00 02-14 00:00 :00 No [id number] 25mg Take 1 tablet by mouth in the morning. [facility] SERTraline 25 mg tablet 2022-0 5-25 00:00: 00 02-14 00:00 :00 No [id number] 25mg Take 1 tablet by mouth in the morning. [facility] naproxen (NAPROSYN) 500 mg tablet 0 5-25 00:00: 00 01-14 04:59 :00 No [id number] 500mg Take 1 tablet by mouth in the morning and 1 tablet in the evening. Take with meals. Do all this for 10 days. [facility] naproxen (NAPROSYN) 500 mg tablet 2022-0 5-25 00:00: 00 01-14 04:59 :00 No [id number] 500mg Take 1 tablet by mouth in the morning and 1 tablet in the evening. Take with meals. Do all this for 10 days. [facility] naproxen (NAPROSYN) 500 mg tablet 2022-0 5-25 00:00: 00 01-14 04:59 :00 No [id number] 500mg Take 1 tablet by mouth in the morning and 1 tablet in the evening. Take with meals. Do all this for 10 days. [facility] naproxen (NAPROSYN) 500 mg tablet 2022-0 5-25 00:00: 00 01-14 04:59 :00 No [id number] 500mg Take 1 tablet by mouth in the morning and 1 tablet in the evening. Take with meals. Do all this for 10 days. [facility] naproxen (NAPROSYN) 500 mg tablet 2022-0 5-25 00:00: 00 01-14 04:59 :00 No [id number] 500mg Take 1 tablet by mouth in the morning and 1 tablet in the evening. Take with meals. Do all this for 10 days. [facility] naproxen (NAPROSYN) 500 mg tablet 01-03 00:00: 00 01-14 04:59 :00 No [id number] 500mg Take 1 tablet by mouth in the morning and 1 tablet in the evening. Take with meals. Do all this for 10 days. [facility] naproxen (NAPROSYN) 500 mg tablet 01-03 00:00: 00 01-14 04:59 :00 No [id number] 500mg Take 1 tablet by mouth in the morning and 1 tablet in the evening. Take with meals. Do all this for 10 days. [facility] iopamidol (ISOVUE 370-500 mL) injection 100 mL 12-28 03:00: 00 12-28 03:00 :00 No [id number] 100mL 100 mL, Intravenou s, ONCE, 1 dose, On [place] 12/27/22 at 2200, Routine [facility] norelgestro min-ethinyl estradiol (XULANE) 150-35 mcg/24 hr patch 12-20 00:00: 00 Yes [id number] 1{patch } Apply 1 Patch to skin weekly. [facility] norelgestro min-ethinyl estradiol (XULANE) 150-35 mcg/24 hr patch 12-20 00:00: 00 Yes [id number] 1{patch } Apply 1 Patch to skin weekly. [facility] norelgestro min-ethinyl estradiol (XULANE) 150-35 mcg/24 hr patch 12-20 00:00: 00 Yes [id number] 1{patch } Apply 1 Patch to skin weekly. [facility] norelgestro min-ethinyl estradiol (XULANE) 150-35 mcg/24 hr patch 12-20 00:00: 00 Yes [id number] 1{patch } Apply 1 Patch to skin weekly. [facility] norelgestro min-ethinyl estradiol (XULANE) 150-35 mcg/24 hr patch 2022-0 5-11 00:00: 00 Yes [id number] 1{patch } Apply 1 Patch to skin weekly. [facility] norelgestro min-ethinyl estradiol (XULANE) 150-35 mcg/24 hr patch 2022-0 5-11 00:00: 00 01-03 00:00 :00 No [id number] 1{patch } Apply 1 Patch to skin weekly. [facility] norelgestro min-ethinyl estradiol (XULANE) 150-35 mcg/24 hr patch 5-11 00:00: 00 01-03 00:00 :00 No [id number] 1{patch } Apply 1 Patch to skin weekly. [facility] doxycycline hyclate 100 mg capsule 2-13 00:00: 00 10-02 05:59 :00 No [id number] 100mg Take 1 capsule by mouth every 12 (twelve) hours for 7 days. [facility] norelgestro min-ethinyl estradiol 150-35 mcg/24 hr patch 0 2-10 00:00: 00 Yes [id number] 1{patch } Apply 1 Patch to skin weekly. [facility] norelgestro min-ethinyl estradiol 150-35 mcg/24 hr patch 0 2-10 00:00: 00 Yes [id number] 1{patch } Apply 1 Patch to skin weekly. [facility] norelgestro min-ethinyl estradiol 150-35 mcg/24 hr patch 2022-0 2-10 00:00: 00 Yes [id number] 1{patch } Apply 1 Patch to skin weekly. [facility] norelgestro min-ethinyl estradiol 150-35 mcg/24 hr patch 2022-0 2-10 00:00: 00 Yes [id number] 1{patch } Apply 1 Patch to skin weekly. [facility] norelgestro min-ethinyl estradiol 150-35 mcg/24 hr patch 2022-0 2-10 00:00: 00 Yes [id number] 1{patch } Apply 1 Patch to skin weekly. [facility] norelgestro min-ethinyl estradiol 150-35 mcg/24 hr patch 2022-0 2-10 00:00: 00 Yes [id number] 1{patch } Apply 1 Patch to skin weekly. [facility] norelgestro min-ethinyl estradiol 150-35 mcg/24 hr patch 2022-0 2-10 00:00: 00 Yes [id number] 1{patch } Apply 1 Patch to skin weekly. [facility] norelgestro min-ethinyl estradiol 150-35 mcg/24 hr patch 2022-0 2-10 00:00: 00 Yes [id number] 1{patch } Apply 1 Patch to skin weekly. [facility] norelgestro min-ethinyl estradiol 150-35 mcg/24 hr patch 2022-0 2-10 00:00: 00 Yes [id number] 1{patch } Apply 1 Patch to skin weekly. [facility] norelgestro min-ethinyl estradiol 150-35 mcg/24 hr patch 2022-0 2-10 00:00: 00 Yes [id number] 1{patch } Apply 1 Patch to skin weekly. [facility] norelgestro min-ethinyl estradiol 150-35 mcg/24 hr patch 2022-0 2-10 00:00: 00 Yes [id number] 1{patch } Apply 1 Patch to skin weekly. [facility] norelgestro min-ethinyl estradiol 150-35 mcg/24 hr patch 2022-0 2-10 00:00: 00 Yes [id number] 1{patch } Apply 1 Patch to skin weekly. [facility] norelgestro min-ethinyl estradiol 150-35 mcg/24 hr patch 2022-0 2-10 00:00: 00 Yes [id number] 1{patch } Apply 1 Patch to skin weekly. [facility] norelgestro min-ethinyl estradiol 150-35 mcg/24 hr patch 2022-0 2-10 00:00: 00 Yes [id number] 1{patch } Apply 1 Patch to skin weekly. [facility] norelgestro min-ethinyl estradiol 150-35 mcg/24 hr patch 2022-0 2-10 00:00: 00 Yes [id number] 1{patch } Apply 1 Patch to skin weekly. [facility] norelgestro min-ethinyl estradiol 150-35 mcg/24 hr patch 2022-0 2-10 00:00: 00 Yes [id number] 1{patch } Apply 1 Patch to skin weekly. [facility] norelgestro min-ethinyl estradiol 150-35 mcg/24 hr patch 2022-0 2-10 00:00: 00 Yes [id number] 1{patch } Apply 1 Patch to skin weekly. [facility] norelgestro min-ethinyl estradiol 150-35 mcg/24 hr patch 2022-0 2-10 00:00: 00 Yes [id number] 1{patch } Apply 1 Patch to skin weekly. [facility] norelgestro min-ethinyl estradiol 150-35 mcg/24 hr patch 2022-0 2-10 00:00: 00 Yes [id number] 1{patch } Apply 1 Patch to skin weekly. [facility] norelgestro min-ethinyl estradiol 150-35 mcg/24 hr patch 2022-0 2-10 00:00: 00 Yes [id number] 1{patch } Apply 1 Patch to skin weekly. [facility] norelgestro min-ethinyl estradiol 150-35 mcg/24 hr patch 2022-0 2-10 00:00: 00 04-01 00:00 :00 No [id number] 1{patch } Apply 1 Patch to skin weekly. [facility] norelgestro min-ethinyl estradiol 150-35 mcg/24 hr patch 2022-0 2-10 00:00: 00 04-01 00:00 :00 No [id number] 1{patch } Apply 1 Patch to skin weekly. [facility] norgestimat e-ethinyl estradioL 0.18/0.215/ 0.25 mg-25 mcg tablet 2021-0 7-07 00:00: 00 Yes [id number] 1{tbl} Take 1 tablet by mouth daily. [facility] norgestimat e-ethinyl estradioL 0.18/0.215/ 0.25 mg-25 mcg tablet 02-15 00:00: 00 09-21 00:00 :00 No [id number] 1{tbl} Take 1 tablet by mouth daily. [facility] norgestimat e-ethinyl estradioL 0.18/0.215/ 0.25 mg-25 mcg tablet 02-15 00:00: 00 09-21 00:00 :00 No [id number] 1{tbl} Take 1 tablet by mouth daily. [facility] norgestimat e-ethinyl estradioL 0.18/0.215/ 0.25 mg-25 mcg tablet 11-16 00:00: 00 02-15 00:00 :00 No [id number] 1{tbl} Take 1 tablet by mouth daily. [facility] benzonatate 100 mg capsule 10-16 00:00: 00 Yes [id number] 100mg Take 1 capsule by mouth 3 (three) times daily as needed for Cough. [facility] albuterol 90 mcg/actuati on inhaler 10-16 00:00: 00 Yes [id number] 6{puff} Inhale 6 Puffs every 4 (four) hours as needed for Wheezing or Shortness of Breath. [facility] albuterol 90 mcg/actuati on inhaler 10-16 00:00: 00 Yes [id number] 6{puff} Inhale 6 Puffs every 4 (four) hours as needed for Wheezing or Shortness of Breath. [facility] albuterol 90 mcg/actuati on inhaler 10-16 00:00: 00 Yes [id number] 6{puff} Inhale 6 Puffs every 4 (four) hours as needed for Wheezing or Shortness of Breath. [facility] albuterol 90 mcg/actuati on inhaler 10-16 00:00: 00 Yes [id number] 6{puff} Inhale 6 Puffs every 4 (four) hours as needed for Wheezing or Shortness of Breath. [facility] albuterol 90 mcg/actuati on inhaler 10-16 00:00: 00 Yes [id number] 6{puff} Inhale 6 Puffs every 4 (four) hours as needed for Wheezing or Shortness of Breath. [facility] albuterol 90 mcg/actuati on inhaler 10-16 00:00: 00 Yes [id number] 6{puff} Inhale 6 Puffs every 4 (four) hours as needed for Wheezing or Shortness of Breath. [facility] albuterol 90 mcg/actuati on inhaler 10-16 00:00: 00 Yes [id number] 6{puff} Inhale 6 Puffs every 4 (four) hours as needed for Wheezing or Shortness of Breath. [facility] albuterol 90 mcg/actuati on inhaler 10-16 00:00: 00 Yes [id number] 6{puff} Inhale 6 Puffs every 4 (four) hours as needed for Wheezing or Shortness of Breath. [facility] albuterol 90 mcg/actuati on inhaler 10-16 00:00: 00 Yes [id number] 6{puff} Inhale 6 Puffs every 4 (four) hours as needed for Wheezing or Shortness of Breath. [facility] albuterol 90 mcg/actuati on inhaler 10-16 00:00: 00 Yes [id number] 6{puff} Inhale 6 Puffs every 4 (four) hours as needed for Wheezing or Shortness of Breath. [facility] albuterol 90 mcg/actuati on inhaler 10-16 00:00: 00 Yes [id number] 6{puff} Inhale 6 Puffs every 4 (four) hours as needed for Wheezing or Shortness of Breath. [facility] albuterol 90 mcg/actuati on inhaler 10-16 00:00: 00 01-03 00:00 :00 No [id number] 6{puff} Inhale 6 Puffs every 4 (four) hours as needed for Wheezing or Shortness of Breath. [facility] albuterol 90 mcg/actuati on inhaler 10-16 00:00: 00 01-03 00:00 :00 No [id number] 6{puff} Inhale 6 Puffs every 4 (four) hours as needed for Wheezing or Shortness of Breath. [facility] benzonatate 100 mg capsule 10-16 00:00: 00 09-21 00:00 :00 No [id number] 100mg Take 1 capsule by mouth 3 (three) times daily as needed for Cough. [facility] benzonatate 100 mg capsule 10-16 00:00: 00 09-21 00:00 :00 No [id number] 100mg Take 1 capsule by mouth 3 (three) times daily as needed for Cough. [facility] Immunizations Ordered Immunization Name Filled Immunization Name Date Status Comments Source Influenza Virus Vaccine Quad .5 mL IM 6+ MO 2021-11-02 00:00:00 Completed [facility] Influenza Virus Vaccine Quad .5 mL IM 6+ MO 2021-11-02 00:00:00 Completed [facility] Influenza Virus Vaccine Quad .5 mL IM 6+ MO 2021-11-02 00:00:00 Completed [facility] Influenza Virus Vaccine Quad .5 mL IM 6+ MO 2021-11-02 00:00:00 Completed [facility] Influenza Virus Vaccine Quad .5 mL IM 6+ MO 2021-11-02 00:00:00 Completed [facility] Influenza Virus Vaccine Quad .5 mL IM 6+ MO 2021-11-02 00:00:00 Completed [facility] Influenza Virus Vaccine Quad .5 mL IM 6+ MO 2021-11-02 00:00:00 Completed [facility] Influenza Virus Vaccine Quad .5 mL IM 6+ MO 2021-11-02 00:00:00 Completed [facility] Influenza Virus Vaccine Quad .5 mL IM 6+ MO 2021-11-02 00:00:00 Completed [facility] Influenza Virus Vaccine Quad .5 mL IM 6+ MO 2021-11-02 00:00:00 Completed [facility] Influenza Virus Vaccine Quad .5 mL IM 6+ MO 2021-11-02 00:00:00 Completed [facility] Influenza Virus Vaccine Quad .5 mL IM 6+ MO 2021-11-02 00:00:00 Completed [facility] Influenza Virus Vaccine Quad .5 mL IM 6+ MO 2021-11-02 00:00:00 Completed [facility] Influenza Virus Vaccine Quad .5 mL IM 6+ MO 2021-11-02 00:00:00 Completed [facility] Influenza Virus Vaccine Quad .5 mL IM 6+ MO 2021-11-02 00:00:00 Completed [facility] Influenza Virus Vaccine Quad .5 mL IM 6+ MO 2021-11-02 00:00:00 Completed [facility] Influenza Virus Vaccine Quad .5 mL IM 6+ MO 2021-11-02 00:00:00 Completed [facility] Influenza Virus Vaccine Quad .5 mL IM 6+ MO 2021-11-02 00:00:00 Completed [facility] Influenza Virus Vaccine Quad .5 mL IM 6+ MO 2021-11-02 00:00:00 Completed [facility] Influenza Virus Vaccine Quad .5 mL IM 6+ MO 2021-11-02 00:00:00 Completed [facility] Influenza Virus Vaccine Quad .5 mL IM 6+ MO 2021-11-02 00:00:00 Completed [facility] Influenza Virus Vaccine Quad .5 mL IM 6+ MO 2021-11-02 00:00:00 Completed [facility] Influenza Virus Vaccine Quad .5 mL IM 6+ MO 2021-11-02 00:00:00 Completed [facility] Influenza Virus Vaccine Quad .5 mL IM 6+ MO 2021-11-02 00:00:00 Completed [facility] Influenza Virus Vaccine Quad .5 mL IM 6+ MO 2021-11-02 00:00:00 Completed [facility] Influenza Virus Vaccine Quad .5 mL IM 6+ MO 2021-11-02 00:00:00 Completed [facility] Influenza Virus Vaccine Quad .5 mL IM 6+ MO (FLUZONE/FLULAVAL/F LUARIX) 2021-11-02 00:00:00 Completed [facility] Influenza Virus Vaccine Quad .5 mL IM 6+ MO (FLUZONE/FLULAVAL/F LUARIX) 2021-11-02 00:00:00 Completed [facility] Influenza Virus Vaccine Quad .5 mL IM 6+ MO (FLUZONE/FLULAVAL/F LUARIX) 2021-11-02 00:00:00 Completed [facility] SARS-COV-2 COVID-19 PFIZER VACCINE 2021-03-27 00:00:00 Completed [facility] SARS-COV-2 COVID-19 PFIZER VACCINE 2021-03-27 00:00:00 Completed [facility] SARS-COV-2 COVID-19 PFIZER VACCINE 2021-03-27 00:00:00 Completed [facility] SARS-COV-2 COVID-19 PFIZER VACCINE 2021-03-27 00:00:00 Completed [facility] SARS-COV-2 COVID-19 PFIZER VACCINE 2021-03-27 00:00:00 Completed [facility] SARS-COV-2 COVID-19 PFIZER VACCINE 2021-03-27 00:00:00 Completed [facility] SARS-COV-2 COVID-19 PFIZER VACCINE 2021-03-27 00:00:00 Completed [facility] SARS-COV-2 COVID-19 PFIZER VACCINE 2021-03-27 00:00:00 Completed [facility] SARS-COV-2 COVID-19 PFIZER VACCINE 2021-03-27 00:00:00 Completed [facility] SARS-COV-2 COVID-19 PFIZER VACCINE 2021-03-27 00:00:00 Completed [facility] SARS-COV-2 COVID-19 PFIZER VACCINE 2021-03-27 00:00:00 Completed [facility] SARS-COV-2 COVID-19 PFIZER VACCINE 2021-03-27 00:00:00 Completed [facility] SARS-COV-2 COVID-19 PFIZER VACCINE 2021-03-27 00:00:00 Completed [facility] SARS-COV-2 COVID-19 PFIZER VACCINE 2021-03-27 00:00:00 Completed [facility] SARS-COV-2 COVID-19 PFIZER VACCINE 2021-03-27 00:00:00 Completed [facility] SARS-COV-2 COVID-19 PFIZER VACCINE 2021-03-27 00:00:00 Completed [facility] SARS-COV-2 COVID-19 PFIZER VACCINE 2021-03-27 00:00:00 Completed [facility] SARS-COV-2 COVID-19 PFIZER VACCINE 2021-03-27 00:00:00 Completed [facility] SARS-COV-2 COVID-19 PFIZER VACCINE 2021-03-27 00:00:00 Completed [facility] SARS-COV-2 COVID-19 PFIZER VACCINE 2021-03-27 00:00:00 Completed [facility] SARS-COV-2 COVID-19 PFIZER VACCINE 2021-03-27 00:00:00 Completed [facility] SARS-COV-2 COVID-19 PFIZER VACCINE 2021-03-27 00:00:00 Completed [facility] SARS-COV-2 COVID-19 PFIZER VACCINE 2021-03-27 00:00:00 Completed [facility] SARS-COV-2 COVID-19 PFIZER VACCINE 2021-03-27 00:00:00 Completed [facility] SARS-COV-2 COVID-19 PFIZER VACCINE 2021-03-27 00:00:00 Completed [facility] SARS-COV-2 COVID-19 PFIZER VACCINE 2021-03-27 00:00:00 Completed [facility] SARS-COV-2 COVID-19 PFIZER VACCINE 2021-03-27 00:00:00 Completed [facility] SARS-COV-2 COVID-19 PFIZER VACCINE 2021-03-27 00:00:00 Completed [facility] SARS-COV-2 COVID-19 PFIZER VACCINE 2021-03-27 00:00:00 Completed [facility] SARS-COV-2 COVID-19 PFIZER VACCINE 2021-03-06 00:00:00 Completed [facility] SARS-COV-2 COVID-19 PFIZER VACCINE 2021-03-06 00:00:00 Completed [facility] SARS-COV-2 COVID-19 PFIZER VACCINE 2021-03-06 00:00:00 Completed [facility] SARS-COV-2 COVID-19 PFIZER VACCINE 2021-03-06 00:00:00 Completed [facility] SARS-COV-2 COVID-19 PFIZER VACCINE 2021-03-06 00:00:00 Completed [facility] SARS-COV-2 COVID-19 PFIZER VACCINE 2021-03-06 00:00:00 Completed [facility] SARS-COV-2 COVID-19 PFIZER VACCINE 2021-03-06 00:00:00 Completed [facility] SARS-COV-2 COVID-19 PFIZER VACCINE 2021-03-06 00:00:00 Completed [facility] SARS-COV-2 COVID-19 PFIZER VACCINE 2021-03-06 00:00:00 Completed [facility] SARS-COV-2 COVID-19 PFIZER VACCINE 2021-03-06 00:00:00 Completed [facility] SARS-COV-2 COVID-19 PFIZER VACCINE 2021-03-06 00:00:00 Completed [facility] SARS-COV-2 COVID-19 PFIZER VACCINE 2021-03-06 00:00:00 Completed [facility] SARS-COV-2 COVID-19 PFIZER VACCINE 2021-03-06 00:00:00 Completed [facility] SARS-COV-2 COVID-19 PFIZER VACCINE 2021-03-06 00:00:00 Completed [facility] SARS-COV-2 COVID-19 PFIZER VACCINE 2021-03-06 00:00:00 Completed [facility] SARS-COV-2 COVID-19 PFIZER VACCINE 2021-03-06 00:00:00 Completed [facility] SARS-COV-2 COVID-19 PFIZER VACCINE 2021-03-06 00:00:00 Completed [facility] SARS-COV-2 COVID-19 PFIZER VACCINE 2021-03-06 00:00:00 Completed [facility] SARS-COV-2 COVID-19 PFIZER VACCINE 2021-03-06 00:00:00 Completed [facility] SARS-COV-2 COVID-19 PFIZER VACCINE 2021-03-06 00:00:00 Completed [facility] SARS-COV-2 COVID-19 PFIZER VACCINE 2021-03-06 00:00:00 Completed [facility] SARS-COV-2 COVID-19 PFIZER VACCINE 2021-03-06 00:00:00 Completed [facility] SARS-COV-2 COVID-19 PFIZER VACCINE 2021-03-06 00:00:00 Completed [facility] SARS-COV-2 COVID-19 PFIZER VACCINE 2021-03-06 00:00:00 Completed [facility] SARS-COV-2 COVID-19 PFIZER VACCINE 2021-03-06 00:00:00 Completed [facility] SARS-COV-2 COVID-19 PFIZER VACCINE 2021-03-06 00:00:00 Completed [facility] SARS-COV-2 COVID-19 PFIZER VACCINE 2021-03-06 00:00:00 Completed [facility] SARS-COV-2 COVID-19 PFIZER VACCINE 2021-03-06 00:00:00 Completed [facility] SARS-COV-2 COVID-19 PFIZER VACCINE 2021-03-06 00:00:00 Completed [facility] HPV9 2019-08-25 00:00:00 Completed [facility] HPV9 2019-08-25 00:00:00 Completed [facility] HPV9 2019-08-25 00:00:00 Completed [facility] HPV9 2019-08-25 00:00:00 Completed [facility] HPV9 2019-08-25 00:00:00 Completed [facility] HPV9 2019-08-25 00:00:00 Completed [facility] HPV9 2019-08-25 00:00:00 Completed [facility] HPV9 2019-08-25 00:00:00 Completed [facility] HPV9 2019-08-25 00:00:00 Completed [facility] HPV9 2019-08-25 00:00:00 Completed [facility] HPV9 2019-08-25 00:00:00 Completed [facility] HPV9 2019-08-25 00:00:00 Completed [facility] HPV9 2019-08-25 00:00:00 Completed [facility] HPV9 2019-08-25 00:00:00 Completed [facility] HPV9 2019-08-25 00:00:00 Completed [facility] HPV9 2019-08-25 00:00:00 Completed [facility] HPV9 2019-08-25 00:00:00 Completed [facility] HPV9 2019-08-25 00:00:00 Completed [facility] HPV9 2019-08-25 00:00:00 Completed [facility] HPV9 2019-08-25 00:00:00 Completed [facility] HPV9 2019-08-25 00:00:00 Completed [facility] HPV9 2019-08-25 00:00:00 Completed [facility] HPV9 2019-08-25 00:00:00 Completed [facility] HPV9 2019-08-25 00:00:00 Completed [facility] HPV9 2019-08-25 00:00:00 Completed [facility] HPV9 2019-08-25 00:00:00 Completed [facility] HPV9 2019-08-25 00:00:00 Completed [facility] HPV9 2019-08-25 00:00:00 Completed [facility] HPV9 2019-08-25 00:00:00 Completed [facility] HPV9 2019-05-27 00:00:00 Completed [facility] HPV9 2019-05-27 00:00:00 Completed [facility] HPV9 2019-05-27 00:00:00 Completed [facility] HPV9 2019-05-27 00:00:00 Completed [facility] HPV9 2019-05-27 00:00:00 Completed [facility] HPV9 2019-05-27 00:00:00 Completed [facility] HPV9 2019-05-27 00:00:00 Completed [facility] HPV9 2019-05-27 00:00:00 Completed [facility] HPV9 2019-05-27 00:00:00 Completed [facility] HPV9 2019-05-27 00:00:00 Completed [facility] HPV9 2019-05-27 00:00:00 Completed [facility] HPV9 2019-05-27 00:00:00 Completed [facility] HPV9 2019-05-27 00:00:00 Completed [facility] HPV9 2019-05-27 00:00:00 Completed [facility] HPV9 2019-05-27 00:00:00 Completed [facility] HPV9 2019-05-27 00:00:00 Completed [facility] HPV9 2019-05-27 00:00:00 Completed [facility] HPV9 2019-05-27 00:00:00 Completed [facility] HPV9 2019-05-27 00:00:00 Completed [facility] HPV9 2019-05-27 00:00:00 Completed [facility] HPV9 2019-05-27 00:00:00 Completed [facility] HPV9 2019-05-27 00:00:00 Completed [facility] HPV9 2019-05-27 00:00:00 Completed [facility] HPV9 2019-05-27 00:00:00 Completed [facility] HPV9 2019-05-27 00:00:00 Completed [facility] HPV9 2019-05-27 00:00:00 Completed [facility] HPV9 2019-05-27 00:00:00 Completed [facility] HPV9 2019-05-27 00:00:00 Completed [facility] HPV9 2019-05-27 00:00:00 Completed [facility] TDAP (ADACEL) VACCINE 2014-06-24 00:00:00 Completed [facility] Meningococcal Vaccine 2014-06-24 00:00:00 Completed [facility] TDAP (ADACEL) VACCINE 2014-06-24 00:00:00 Completed [facility] Meningococcal Vaccine 2014-06-24 00:00:00 Completed [facility] TDAP (ADACEL) VACCINE 2014-06-24 00:00:00 Completed [facility] Meningococcal Vaccine 2014-06-24 00:00:00 Completed [facility] TDAP (ADACEL) VACCINE 2014-06-24 00:00:00 Completed [facility] Meningococcal Vaccine 2014-06-24 00:00:00 Completed [facility] TDAP (ADACEL) VACCINE 2014-06-24 00:00:00 Completed [facility] Meningococcal Vaccine 2014-06-24 00:00:00 Completed [facility] TDAP (ADACEL) VACCINE 2014-06-24 00:00:00 Completed [facility] Meningococcal Vaccine 2014-06-24 00:00:00 Completed [facility] TDAP (ADACEL) VACCINE 2014-06-24 00:00:00 Completed [facility] Meningococcal Vaccine 2014-06-24 00:00:00 Completed [facility] TDAP (ADACEL) VACCINE 2014-06-24 00:00:00 Completed [facility] Meningococcal Vaccine 2014-06-24 00:00:00 Completed [facility] TDAP (ADACEL) VACCINE 2014-06-24 00:00:00 Completed [facility] Meningococcal Vaccine 2014-06-24 00:00:00 Completed [facility] TDAP (ADACEL) VACCINE 2014-06-24 00:00:00 Completed [facility] Meningococcal Vaccine 2014-06-24 00:00:00 Completed [facility] TDAP (ADACEL) VACCINE 2014-06-24 00:00:00 Completed [facility] Meningococcal Vaccine 2014-06-24 00:00:00 Completed [facility] TDAP (ADACEL) VACCINE 2014-06-24 00:00:00 Completed [facility] Meningococcal Vaccine 2014-06-24 00:00:00 Completed [facility] TDAP (ADACEL) VACCINE 2014-06-24 00:00:00 Completed [facility] Meningococcal Vaccine 2014-06-24 00:00:00 Completed [facility] TDAP (ADACEL) VACCINE 2014-06-24 00:00:00 Completed [facility] Meningococcal Vaccine 2014-06-24 00:00:00 Completed [facility] TDAP (ADACEL) VACCINE 2014-06-24 00:00:00 Completed [facility] Meningococcal Vaccine 2014-06-24 00:00:00 Completed [facility] TDAP (ADACEL) VACCINE 2014-06-24 00:00:00 Completed [facility] Meningococcal Vaccine 2014-06-24 00:00:00 Completed [facility] TDAP (ADACEL) VACCINE 2014-06-24 00:00:00 Completed [facility] Meningococcal Vaccine 2014-06-24 00:00:00 Completed [facility] TDAP (ADACEL) VACCINE 2014-06-24 00:00:00 Completed [facility] Meningococcal Vaccine 2014-06-24 00:00:00 Completed [facility] TDAP (ADACEL) VACCINE 2014-06-24 00:00:00 Completed [facility] Meningococcal Vaccine 2014-06-24 00:00:00 Completed [facility] TDAP (ADACEL) VACCINE 2014-06-24 00:00:00 Completed [facility] Meningococcal Vaccine 2014-06-24 00:00:00 Completed [facility] TDAP (ADACEL) VACCINE 2014-06-24 00:00:00 Completed [facility] Meningococcal Vaccine 2014-06-24 00:00:00 Completed [facility] TDAP (ADACEL) VACCINE 2014-06-24 00:00:00 Completed [facility] Meningococcal Vaccine 2014-06-24 00:00:00 Completed [facility] TDAP (ADACEL) VACCINE 2014-06-24 00:00:00 Completed [facility] Meningococcal Vaccine 2014-06-24 00:00:00 Completed [facility] TDAP (ADACEL) VACCINE 2014-06-24 00:00:00 Completed [facility] Meningococcal Vaccine 2014-06-24 00:00:00 Completed [facility] TDAP (ADACEL) VACCINE 2014-06-24 00:00:00 Completed [facility] Meningococcal Vaccine 2014-06-24 00:00:00 Completed [facility] TDAP (ADACEL) VACCINE 2014-06-24 00:00:00 Completed [facility] Meningococcal Vaccine 2014-06-24 00:00:00 Completed [facility] TDAP (ADACEL) VACCINE 2014-06-24 00:00:00 Completed [facility] Meningococcal Vaccine 2014-06-24 00:00:00 Completed [facility] TDAP (ADACEL) VACCINE 2014-06-24 00:00:00 Completed [facility] Meningococcal Vaccine 2014-06-24 00:00:00 Completed [facility] TDAP (ADACEL) VACCINE 2014-06-24 00:00:00 Completed [facility] Meningococcal Vaccine 2014-06-24 00:00:00 Completed [facility] TDAP (ADACEL) VACCINE 2013-03-12 00:00:00 Completed [facility] TDAP (ADACEL) VACCINE 2013-03-12 00:00:00 Completed [facility] TDAP (ADACEL) VACCINE 2013-03-12 00:00:00 Completed [facility] TDAP (ADACEL) VACCINE 2013-03-12 00:00:00 Completed [facility] TDAP (ADACEL) VACCINE 2013-03-12 00:00:00 Completed [facility] TDAP (ADACEL) VACCINE 2013-03-12 00:00:00 Completed [facility] TDAP (ADACEL) VACCINE 2013-03-12 00:00:00 Completed [facility] TDAP (ADACEL) VACCINE 2013-03-12 00:00:00 Completed [facility] TDAP (ADACEL) VACCINE 2013-03-12 00:00:00 Completed [facility] TDAP (ADACEL) VACCINE 2013-03-12 00:00:00 Completed [facility] TDAP (ADACEL) VACCINE 2013-03-12 00:00:00 Completed [facility] TDAP (ADACEL) VACCINE 2013-03-12 00:00:00 Completed [facility] TDAP (ADACEL) VACCINE 2013-03-12 00:00:00 Completed [facility] TDAP (ADACEL) VACCINE 2013-03-12 00:00:00 Completed [facility] TDAP (ADACEL) VACCINE 2013-03-12 00:00:00 Completed [facility] TDAP (ADACEL) VACCINE 2013-03-12 00:00:00 Completed [facility] TDAP (ADACEL) VACCINE 2013-03-12 00:00:00 Completed [facility] TDAP (ADACEL) VACCINE 2013-03-12 00:00:00 Completed [facility] TDAP (ADACEL) VACCINE 2013-03-12 00:00:00 Completed [facility] TDAP (ADACEL) VACCINE 2013-03-12 00:00:00 Completed [facility] TDAP (ADACEL) VACCINE 2013-03-12 00:00:00 Completed [facility] TDAP (ADACEL) VACCINE 2013-03-12 00:00:00 Completed [facility] TDAP (ADACEL) VACCINE 2013-03-12 00:00:00 Completed [facility] TDAP (ADACEL) VACCINE 2013-03-12 00:00:00 Completed [facility] TDAP (ADACEL) VACCINE 2013-03-12 00:00:00 Completed [facility] TDAP (ADACEL) VACCINE 2013-03-12 00:00:00 Completed [facility] TDAP (ADACEL) VACCINE 2013-03-12 00:00:00 Completed [facility] TDAP (ADACEL) VACCINE 2013-03-12 00:00:00 [facility] [facility] TDAP (ADACEL) VACCINE 2013-03-12 00:00:00 Completed [facility] TDAP (ADACEL) VACCINE Unknown Completed [facility] HPV9 Unknown Completed [facility] TDAP (ADACEL) VACCINE Unknown Completed [facility] Meningococcal Vaccine Unknown Completed [facility] HPV9 Unknown Completed [facility] TDAP (ADACEL) VACCINE Unknown Completed [facility] HPV9 Unknown Completed [facility] TDAP (ADACEL) VACCINE Unknown Completed [facility] Meningococcal Vaccine Unknown Completed [facility] HPV9 Unknown Completed [facility] SARS-COV-2 COVID-19 PFIZER VACCINE Unknown Completed [facility] SARS-COV-2 COVID-19 PFIZER VACCINE Unknown Completed [facility] Influenza Virus Vaccine Quad .5 mL IM 6+ MO (FLUZONE/FLULAVAL/F LUARIX) Unknown Completed [facility] TDAP (ADACEL) VACCINE Unknown Completed [facility] HPV9 Unknown Completed [facility] TDAP (ADACEL) VACCINE Unknown Completed [facility] Meningococcal Vaccine Unknown Completed [facility] HPV9 Unknown Completed [facility] SARS-COV-2 COVID-19 PFIZER VACCINE Unknown Completed [facility] SARS-COV-2 COVID-19 PFIZER VACCINE Unknown Completed [facility] Influenza Virus Vaccine Quad .5 mL IM 6+ MO (FLUZONE/FLULAVAL/F LUARIX) Unknown Completed [facility] TDAP (ADACEL) VACCINE Unknown Completed [facility] HPV9 Unknown Completed [facility] TDAP (ADACEL) VACCINE Unknown Completed [facility] Meningococcal Vaccine Unknown Completed [facility] HPV9 Unknown Completed [facility] SARS-COV-2 COVID-19 PFIZER VACCINE Unknown Completed [facility] SARS-COV-2 COVID-19 PFIZER VACCINE Unknown Completed [facility] Influenza Virus Vaccine Quad .5 mL IM 6+ MO (FLUZONE/FLULAVAL/F LUARIX) Unknown Completed [facility] TDAP (ADACEL) VACCINE Unknown Completed [facility] HPV9 Unknown Completed [facility] TDAP (ADACEL) VACCINE Unknown Completed [facility] Meningococcal Vaccine Unknown Completed [facility] HPV9 Unknown Completed [facility] SARS-COV-2 COVID-19 PFIZER VACCINE Unknown Completed [facility] SARS-COV-2 COVID-19 PFIZER VACCINE Unknown Completed [facility] Influenza Virus Vaccine Quad .5 mL IM 6+ MO (FLUZONE/FLULAVAL/F LUARIX) Unknown Completed [facility] TDAP (ADACEL) VACCINE Unknown Completed [facility] HPV9 Unknown Completed [facility] TDAP (ADACEL) VACCINE Unknown Completed [facility] Meningococcal Vaccine Unknown Completed [facility] HPV9 Unknown Completed [facility] SARS-COV-2 COVID-19 PFIZER VACCINE Unknown Completed [facility] SARS-COV-2 COVID-19 PFIZER VACCINE Unknown Completed [facility] Influenza Virus Vaccine Quad .5 mL IM 6+ MO (FLUZONE/FLULAVAL/F LUARIX) Unknown Completed [facility] TDAP (ADACEL) VACCINE Unknown Completed [facility] HPV9 Unknown Completed [facility] TDAP (ADACEL) VACCINE Unknown Completed [facility] Meningococcal Vaccine Unknown Completed [facility] HPV9 Unknown Completed [facility] SARS-COV-2 COVID-19 PFIZER VACCINE Unknown Completed [facility] SARS-COV-2 COVID-19 PFIZER VACCINE Unknown Completed [facility] Influenza Virus Vaccine Quad .5 mL IM 6+ MO (FLUZONE/FLULAVAL/F LUARIX) Unknown Completed [facility] TDAP (ADACEL) VACCINE Unknown Completed [facility] HPV9 Unknown Completed [facility] TDAP (ADACEL) VACCINE Unknown Completed [facility] Meningococcal Vaccine Unknown Completed [facility] HPV9 Unknown Completed [facility] SARS-COV-2 COVID-19 PFIZER VACCINE Unknown Completed [facility] SARS-COV-2 COVID-19 PFIZER VACCINE Unknown Completed [facility] Influenza Virus Vaccine Quad .5 mL IM 6+ MO (FLUZONE/FLULAVAL/F LUARIX) Unknown Completed [facility] Vital Signs Vital Name Observation Time Observation Value Comments S ource Systolic blood pressure 2023-10-24 16:38:00 140 mm[Hg] [facility] Diastolic blood pressure 2023-10-24 16:38:00 88 mm[Hg] [facility] Heart rate 2023-10-24 16:38:00 78 /min [facility] Body temperature 2023-10-24 16:38:00 37.33 [facility] Respiratory rate 2023-10-24 16:38:00 22 /min [facility] Body height 2023-10-24 16:38:00 162.6 cm [facility] Body weight 2023-10-24 16:38:00 58.968 kg [facility] BMI 2023-10-24 16:38:00 22.31 kg/m2 [facility] Oxygen saturation in Arterial blood by Pulse oximetry 2023-10-24 16:38:00 100 /min [facility] Systolic blood pressure 2023-08-20 20:26:00 136 mm[Hg] [facility] Diastolic blood pressure 2023-08-20 20:26:00 81 mm[Hg] [facility] Heart rate 2023-08-20 20:26:00 68 /[facility] 2023-08-20 20:26:00 36.17 [facility] Respiratory rate 2023-08-20 20:26:00 18 /min [facility] Body height 2023-08-20 20:26:00 165.1 cm [facility] Body weight 2023-08-20 20:26:00 62.642 kg [facility] BMI 2023-08-20 20:26:00 22.98 kg/m2 [facility] Systolic blood pressure 2023-04-24 15:10:00 148 mm[Hg] [facility] Diastolic blood pressure 2023-04-24 15:10:00 99 mm[Hg] [facility] Heart rate 2023-04-24 15:10:00 87 /min [facility] Body temperature 2023-04-24 15:10:00 37.11 [facility] Respiratory rate 2023-04-24 15:10:00 18 /min [facility] Body height 2023-04-24 15:10:00 165.1 cm Univ [facility] Body weight 2023-04-24 15:10:00 62.596 kg Univ [facility] BMI 2023-04-24 15:10:00 22.96 kg/m2 [facility] Oxygen saturation in Arterial blood by Pulse oximetry 2023-04-24 15:10:00 100 /min [facility] Systolic blood pressure 2023-04-18 15:54:00 141 mm[Hg] [facility] Diastolic blood pressure 2023-04-18 15:54:00 73 mm[Hg] [facility] Heart rate 2023-04-18 15:54:00 58 /min [facility] Body temperature 2023-04-18 15:54:00 36.28 [facility] Respiratory rate 2023-04-18 15:54:00 18 /min [facility] Body height 2023-04-18 15:54:00 162.6 cm [facility] Body weight 2023-04-18 15:54:00 62.914 kg [facility] BMI 2023-04-18 15:54:00 23.81 kg/m2 [facility] Systolic blood pressure 2023-04-01 18:05:00 140 mm[Hg] [facility] Diastolic blood pressure 2023-04-01 18:05:00 87 mm[Hg] [facility] Heart rate 2023-04-01 18:02:00 97 /min [facility] Body temperature 2023-04-01 18:02:00 36 [facility] Body height 2023-04-01 18:02:00 165.1 cm Univ [facility] Body weight 2023-04-01 18:02:00 61.236 kg [facility] BMI 2023-04-01 18:02:00 22.47 kg/m2 [facility] Oxygen saturation in Arterial blood by Pulse oximetry 2023-04-01 18:02:00 97 /min [facility] Systolic blood pressure 2023-02-14 15:01:00 126 mm[Hg] [facility] Diastolic blood pressure 2023-02-14 15:01:00 58 mm[Hg] [facility] Heart rate 2023-02-14 15:01:00 70 /min [facility] Body temperature 2023-02-14 15:01:00 36.61 [facility] Respiratory rate 2023-02-14 15:01:00 18 /min [facility] Body height 2023-02-14 15:01:00 165.1 cm Univ [facility] Body weight 2023-02-14 15:01:00 66.815 kg Univ [facility] BMI 2023-02-14 15:01:00 24.51 kg/m2 [facility] Oxygen saturation in Arterial blood by Pulse oximetry 2023-02-14 15:01:00 100 /min [facility] Systolic blood pressure 2023-01-03 14:37:00 130 mm[Hg] [facility] Diastolic blood pressure 2023-01-03 14:37:00 85 mm[Hg] [facility] Heart rate 2023-01-03 14:37:00 66 /min [facility] Body temperature 2023-01-03 14:37:00 36.28 [facility] Body height 2023-01-03 14:37:00 165.1 cm [facility] 2023-01-03 14:37:00 68.221 kg [facility] BMI 2023-01-03 14:37:00 25.03 kg/m2 [facility] Oxygen saturation in Arterial blood by Pulse oximetry 2023-01-03 14:37:00 98 /min [facility] Systolic blood pressure 2022-12-28 00:30:00 133 mm[Hg] [facility] Diastolic blood pressure 2022-12-28 00:30:00 75 mm[Hg] [facility] Heart rate 2022-12-28 00:30:00 82 /min [facility] Body temperature 2022-12-28 00:30:00 37.22 [facility] Respiratory rate 2022-12-28 00:30:00 16 /min [facility] Body height 2022-12-28 00:30:00 165.1 cm [facility] Body weight 2022-12-28 00:30:00 67.858 kg [facility] BMI 2022-12-28 00:30:00 24.89 kg/m2 [facility] Oxygen saturation in Arterial blood by Pulse oximetry 2022-12-28 00:30:00 100 /min [facility] Systolic blood pressure 2022-12-28 00:06:00 145 mm[Hg] [facility] Diastolic blood pressure 2022-12-28 00:06:00 102 mm[Hg] [facility] Heart rate 2022-12-28 00:06:00 88 /min [facility] Body temperature 2022-12-28 00:06:00 36.39 [facility] Respiratory rate 2022-12-28 00:06:00 17 /min [facility] Body weight 2022-12-28 00:06:00 67.813 kg [facility] BMI 2022-12-28 00:06:00 25.66 kg/m2 [facility] Oxygen saturation in Arterial blood by Pulse oximetry 2022-12-28 00:06:00 98 /min [facility] Systolic blood pressure 2022-12-20 14:41:00 128 mm[Hg] [facility] Diastolic blood pressure 2022-12-20 14:41:00 79 mm[Hg] [facility] Heart rate 2022-12-20 14:41:00 79 /min [facility] Body temperature 2022-12-20 14:41:00 36 [facility] Respiratory rate 2022-12-20 14:41:00 18 /min [facility] Body height 2022-12-20 14:41:00 162.6 cm Univ [facility] Body weight 2022-12-20 14:41:00 69.854 kg [facility] BMI 2022-12-20 14:41:00 26.43 kg/m2 [facility] Systolic blood pressure 2022-09-21 15:50:00 132 mm[Hg] [facility] Diastolic blood pressure 2022-09-21 15:50:00 73 mm[Hg] [facility] Heart rate 2022-09-21 15:45:00 73 /min [facility] Body temperature 2022-09-21 15:45:00 36.72 [facility] Respiratory rate 2022-09-21 15:45:00 19 /min [facility] Body height 2022-09-21 15:45:00 165.1 cm Univ [facility] Body weight 2022-09-21 15:45:00 76.068 kg [facility] BMI 2022-09-21 15:45:00 27.91 kg/m2 [facility] Systolic blood pressure 2022-02-15 13:51:00 127 mm[Hg] [facility] Diastolic blood pressure 2022-02-15 13:51:00 88 mm[Hg] [facility] Heart rate 2022-02-15 13:51:00 71 /min [facility] Body temperature 2022-02-15 13:51:00 36.11 [facility] Respiratory rate 2022-02-15 13:51:00 16 /min [facility] Body height 2022-02-15 13:51:00 165.1 cm Univ [facility] Body weight 2022-02-15 13:51:00 89.313 kg [facility] BMI 2022-02-15 13:51:00 32.77 kg/m2 [facility] Procedures Procedure Date / Time Performed Performing Clinician Source ABORH CONFIRMATION (LAB ONLY) 2023-10-24 18:54:00 Nacho Nguyen [facility] THYROID STIMULATING HORMONE 2023-10-24 17:55:00 Nacho Nguyen [facility] COMP. METABOLIC PANEL (72251) 2023-10-24 17:55:00 Nacho Nguyen [facility] TOTAL BETA HCG ASSAY 2023-10-24 17:55:00 Wendy, And res [facility] CBC WITH DIFF 2023-10-24 17:55:00 [facility] GROUPING 2023-10-24 17:55:00 [facility]REFUSAL FOR DIAGNOSIS AND TREATMENT 2023-10-24 16:28:49 Doctor Unassigned, [facility] POCT TEST 2023-04-24 15:42:00 Berkley Dickson [facility] URINALYSIS 2023-04-24 15:38:00 Rahel Dickson [facility] ASSIGNMENT OF BENEFITS 2023-04-24 15:20:04 Docto r Unassigned, [facility] CONSENT/REFUSAL FOR DIAGNOSIS AND TREATMENT 2023-04-24 15:04:50 Doctor Unassigned, [facility] POCT TEST 2023-04-18 00:00:00 Adriano Bowers [facility] COMP. METABOLIC PANEL ([id number]) 2023-04-01 18:36:00 Eliza Bowers [facility] CBC WITH DIFF 2023-04-01 18:36:00 Eliza Bowers [facility] POCT URINALYSIS 2023-01-03 15:09:00 Eliza Bowers [facility] POCT TEST 2023-01-03 15:09:00 Adriano Bowers [facility] CT ABDOMEN PELVIS W CONTRAST 2022-12-28 02:03:46 Yaw Bro [facility] ASSIGNMENT OF BENEFITS 2022-12-28 01:22:25 Docto r Unassigned, [facility] POCT TEST 2022-12-28 01:05:00 Kasandra Bro [facility] LIPASE 2022-12-28 01:04:00 Bro, Yaw [facility] THYROID STIMULATING HORMONE 2022-12-28 01:04:00 Yaw Bro [facility] COMP. METABOLIC PANEL ([id number]) 2022-12-28 01:04:00 Yaw Bro [facility] CBC WITH DIFF 2022-12-28 01:04:00 Yaw Bro [facility] URINALYSIS 2022-12-28 01:04:00 Yaw Bro [facility] CONSENT/REFUSAL FOR DIAGNOSIS AND TREATMENT 2022-12-28 00:17:56 Doctor Unassigned, [facility] ASSIGNMENT OF BENEFITS 2022-12-20 14:26:08 Docto r Unassigned, [facility] POCT TEST 2022-09-21 00:00:00 Sivan Vaughn [facility] Encounters Start Date/Time End Date/Time Encounter Type Admission Type Attending [facility] Emergency Department Facility Care Department Encounter ID Source 2021-06-08 19:53:15 Emergency [facility] [id number] [facility] 2023-11-21 08:30:00 2023-11-21 08:30:00 Outpatient R AKINSITELLY SANTANALESLIE [facility] [id number] [facility] 2023-10-28 13:45:00 2023-10-28 13:45:00 Outpatient R AKINSIPELESLIE [facility] [id number] [facility] 2023-10-28 13:15:00 2023-10-28 13:15:00 Outpatient R [facility] [id number] [facility] 2023-10-24 11:40:00 2023-10-24 16:53:00 Emergency X NACHO NGUYEN [facility] ERT [id number] [facility] 2023-10-24 11:40:00 2023-10-24 16:53:00 Emergency Nacho Nguyen [facility] 1.2.840.114 350.1.13.10 4.2.7.2.686 [id number] [facility] 2023-10-24 00:00:00 2023-10-24 00:00:00 Telephone Pgy3 [facility] 1.0.114 350.1.13.10 4.2.7.2.686 [id number] [facility] 2023-09-17 00:00:00 2023-09-17 00:00:00 Outpatient SYDNEY GAXIOLA [facility] [id number] [facility] 2023-09-13 10:00:00 2023-09-13 10:00:00 Outpatient BRUNA ESCAMILLA ASHLEY [facility] [id number] [facility] 2023-09-02 00:00:00 2023-09-02 00:00:00 Outpatient SYDNEY GAXIOLA [facility] [id number] [facility] 2023-08-23 00:00:00 2023-08-23 00:00:00 Patient Secure Msg Doctor Unassigned, [facility] 1..114 350.1.13.10 4.2.7.2.686 [id number] [facility] 2023-08-20 14:30:00 2023-08-20 15:39:40 Outpatient R SYDNEY LUBNI [facility] [id number] [facility] 2023-08-20 14:30:00 2023-08-20 15:39:40 Office Visit Pgy2 Patricia [facility] 1..114 350.1.13.10 4.2.7.2.686 [id number] [facility] 2023-08-13 00:00:00 2023-08-13 00:00:00 Telephone Gretchen Murray [facility] 1..114 350.1.13.10 4.2.7.2.686 [id number] [facility] 2023-07-18 08:30:00 2023-07-18 08:30:00 Outpatient R ELIZA BOWERS [facility] [id number] [facility] 2023-04-24 10:13:00 2023-04-24 12:05:00 Emergency X RAHEL DICKSON [facility] ERT [id number] [facility] 2023-04-24 10:13:00 2023-04-24 12:05:00 Emergency Rahel Dickson [facility] 1.2.840.114 350.1.13.10 4.2.7.2.686 [id number] [facility] 2023-04-18 11:00:00 2023-04-18 11:09:48 Outpatient R ELIZA BOWERS [facility] [id number] [facility] 2023-04-18 11:00:00 2023-04-18 11:09:48 Office Visit Eliza Bowers [facility] 1.2.840.114 350.1.13.10 4.2.7.2.686 [id number] [facility] 2023-04-04 00:00:00 2023-04-04 00:00:00 Telephone [facility] 1.2.840.114 350.1.13.10 4.2.7.2.686 [id number] [facility] 2023-04-01 13:53:27 2023-04-01 23:59:00 Outpatient R ELIZA BOWERS [facility] [id number] [facility] 2023-04-01 13:45:00 2023-04-01 23:59:00 Hospital Encounter Eliza Bowers [facility] 1.2.840.114 350.1.13.10 4.2.7.2.686 [id number] [facility] 2023-04-01 13:30:00 2023-04-01 13:36:46 Cosmetic Sales Consultant Visit 2, Adc Lab Eliza Bowers [facility] 1.2.840.114 350.1.13.10 4.2.7.2.686 [id number] [facility] 2023-04-01 13:00:00 2023-04-01 13:28:27 [facility] 1.2.840.114 350.1.13.10 4.2.7.2.686 [id number] [facility] 2023-03-14 11:00:00 2023-03-14 11:00:00 Outpatient R STACY BOWERSSSICA [facility] [id number] [facility] 2023-03-09 00:00:00 2023-03-09 00:00:00 Refill Stacy Bowersssica [facility] 1.2.840.114 350.1.13.10 4.2.7.2.686 [id number] [facility] 2023-02-14 10:00:00 2023-02-14 10:27:33 Outpatient R ELIZA BOWERS [facility] [id number] [facility] 2023-02-14 10:00:00 2023-02-14 10:27:33 Office [facility] 1.2.840.114 350.1.13.10 4.2.7.2.686 [id number] [facility] 2023-01-23 14:30:00 2023-01-23 14:30:00 Outpatient R LESLIE CASTELLANOS [facility] [id number] [facility] 2023-01-10 00:00:00 2023-01-10 00:00:00 Outpatient R SOY ELIZA [facility] [id number] [facility] 2023-01-04 00:00:00 2023-01-04 00:00:00 Telephone Leslie Castellanos [facility] 1.2.840.114 350.1.13.10 4.2.7.2.686 [id number] [facility] 2023-01-03 10:15:00 2023-01-03 10:30:00 Cosmetic Sales Consultant Visit 2, Adc Lab Stacy Bowersssica [facility] 1.2.840.114 350.1.13.10 4.2.7.2.686 [id number] [facility] 2023-01-03 09:30:00 2023-01-03 10:13:42 Outpatient R TSACY BOWERSSSICA [facility] [id number] [facility] 2023-01-03 09:30:00 2023-01-03 10:13:42 Office Visit Eliza Bowers [facility] 1.2.840.114 350.1.13.10 4.2.7.2.686 [id number] [facility] 2023-01-03 00:00:00 2023-01-03 00:00:00 Telephone Leslie Castellanos [facility] 1.2.840.114 350.1.13.10 4.2.7.2.686 [id number] [facility] 2023-01-01 15:15:00 2023-01-01 15:15:00 Outpatient R LESLIE CASTELLANOS [facility] [id number] [facility] 2023-01-01 08:30:00 2023-01-01 08:30:00 Outpatient R ELIZA BOWERS [facility] [id number] [facility] 2022-12-27 19:33:00 2022-12-27 21:29:00 Emergency X YAW BRO [facility] [id number] [facility] 2022-12-27 19:33:00 2022-12-27 21:29:00 Emergency Yaw Bro [facility] 1.0.114 350.1.13.10 4.2.7.2.686 [id number] [facility] 2022-12-27 19:00:00 2022-12-27 19:20:00 Nurse Visit Nurse, [facility] Unknown, Attending [facility] 1..114 350.1.13.10 4.2.7.2.686 [id number] [facility] 2022-12-27 19:00:00 2022-12-27 19:00:00 Outpatient R UNKNOWN, ATTENDING [facility] [id number] [facility] 2022-12-27 19:00:00 2022-12-27 19:00:00 Outpatient R BAILEE LIZ [facility] [id number] [facility] 2022-12-25 00:00:00 2022-12-25 00:00:00 Telephone Leslie Castellanos [facility] 1..114 350.1.13.10 4.2.7.2.686 [id number] [facility] 2022-12-20 10:00:00 2022-12-20 10:58:56 Outpatient R LESLIE CASTELLANOS [facility] [id number] [facility] 2022-12-20 10:00:00 2022-12-20 10:58:56 Office Visit Leslie Castellanos [facility]ILD [facility] 1.0.114 350.1.13.10 4.2.7.2.686 [id number] [facility] 2022-12-20 00:00:00 2022-12-20 00:00:00 Orders Only Doctor Unassigned, [facility] 1.2.840.114 350.1.13.10 4.2.7.2.686 [id number] [facility] 2022-09-24 00:00:00 2022-09-24 00:00:00 Case Management Carla Vaughn [facility] 1.2.840.114 350.1.13.10 4.2.7.2.686 [id number] [facility] 2022-09-21 09:30:00 2022-09-21 10:18:05 Outpatient R CARLA VAUGHN [facility] [id number] [facility] 2022-09-21 09:30:00 2022-09-21 10:18:05 Office Visit Provider, Arcadio-Rmchp Temp Carla Vaughn [facility] 1.2.840.114 350.1.13.10 4.2.7.2.686 [id number] [facility] 2022-09-21 00:00:00 2022-09-21 00:00:00 Letter (Out) Carla Vaughn [facility] 1.2.840.114 350.1.13.10 4.2.7.2.686 [id number] [facility] 2022-09-07 08:30:00 2022-09-07 08:30:00 Outpatient R ROSALES CHAPIN EMILY [facility] [id number] [facility] 2022 13:40:00 2022 13:40:00 Outpatient R HENOK, MELINDA [facility] [id number] [facility] 2022-02-15 09:00:00 2022-02-15 09:18:29 Office Visit Jacob Barrientos Ivan [facility] 1.2.840.114 350.1.13.10 4.2.7.2.686 [id number] 107 [id number] [facility] 2022-02-15 09:00:00 2022-02-15 09:18:29 Outpatient Ivan BARRIENTOS JACOB [facility] [id number] [facility] 2022-02-15 09:00:00 2022-02-15 09:00:00 Outpatient Ivan BARRIENTOS [facility] [id number] [facility] 2022-02-15 09:00:00 2022-02-15 09:00:00 Outpatient Ivan BARRIENTOS [facility] [id number] [facility] 2022-01-12 00:00:00 2022-01-12 00:00:00 Telephone Raymundo Barrientosmario alberto [facility] MATERNAL & CHILD [facility] 1.2.840.114 350.1.13.10 4.2.7.2.686 [id number] 107 [id number] [facility] 2022-01-11 15:15:00 2022-01-11 16:08:32 Office Visit Jacob Barrientos Ivan [facility] & CHILD [facility] 1.2.840.114 350.1.13.10 4.2.7.2.686 [id number] 107 [id number] [facility] 2022-01-11 15:15:00 2022-01-11 16:08:32 Outpatient Ivan [facility]OS[facility] [id number] [facility] 2022-01-11 15:15:00 2022-01-11 15:15:00 Outpatient R BAR[facility]ENTOSJACOB [facility] [id number] [facility] 2021-11-16 10:30:00 2021-11-16 10:30:00 Outpatient R [facility] [id number] [facility] 2021-11-16 08:00:00 2021-11-16 08:20:47 Outpatient Ivan BARRIENTOS, JACOB [facility] [id number] [facility] 2021-11-16 08:00:00 2021-11-16 08:20:47 [facility], Jacob Love [facility] & CHILD [facility] 1.2.840.114 350.1.13.10 4.2.7.2.686 [id number] 107 [id number] [facility] 2021-11-03 00:00:00 2021-11-03 00:00:00 Telephone BarrientosJacob [facility] & [facility]ILD [facility] 1.2.840.114 350.1.13.10 4.2.7.2.686 [id number] 107 [id number] [facility] 2021-11-02 10:30:00 2021-11-02 11:58:09 Office Visit Chris Jacob Love [facility] 1.2.840.114 350.1.13.10 4.2.7.2.686 [id number] 107 [id number] [facility] 2021-11-02 10:30:00 2021-11-02 11:58:09 Outpatient Ivan JACOB BARRIENTOS [facility] [id number] [facility] 2021-11-02 10:30:00 2021-11-02 11:58:09 Outpatient Ivan JACOB BARRIENTOS [facility] [id number] [facility] 2021-11-02 10:30:00 2021-11-02 10:30:00 Outpatient JACOB BAUTISTA [facility] [id number] [facility] 2021-11-02 10:30:00 2021-11-02 10:30:00 Outpatient R JACOB BARRIENTOS [facility] [id number] [facility] 2021-11-02 00:00:00 2021-11-02 00:00:00 Orders Only Doctor Unassigned, Roberts [facility] 1.840.114 350.1.13.10 4.2.7.2.686 [id number] [facility] 2021-10-16 19:47:00 2021-10-16 20:32:00 Emergency X ALIVIA LEE [facility] ERT [id number] [facility] 2021-10-16 19:47:00 2021-10-16 20:32:00 Emergency Alivia Lee [facility] 1.840.114 350.1.13.10 4.2.7.2.686 [id number] [facility] 2021-08-01 08:30:00 2021-08-01 09:21:32 Outpatient R JACOB BARRIENTOS [facility] [id number] [facility] 2021-08-01 08:30:00 2021-08-01 09:21:32 Office Visit Jacob Barrientos [facility] MAT[facility]NAL & CHILD [facility] 1..114 350.1.13.10 4.2.7.2.686 [id number] 107 [id number] [facility] 2021-08-01 00:00:00 2021-08-01 00:00:00 Orders Only Doctor Unassigned, Roberts [facility] 1.0.114 350.1.13.10 4.2.7.2.686 [id number] [facility] 2021-07-31 00:00:00 2021-07-31 00:00:00 Telephone Jacob Barrientos [facility]ILD [facility] 1.840.114 350.1.13.10 4.2.7.2.686 [id number] 107 [id number] [facility] 2021-06-13 10:30:00 2021-06-13 10:58:17 Outpatient R CINDY APARICIO [facility] [id number] [facility] 2021-06-13 10:01:19 2021-06-13 10:58:17 Office Visit Cindy Aparicio [facility] & CHILD [facility] ..840.114 350.1.13.10 4.2.7.2.686 [id number] [facility] 2021-06-13 10:30:00 2021-06-13 10:30:00 Outpatient R CINDY APARICIO [facility] [id number] [facility] 2021-06-06 00:00:00 2021-06-06 00:00:00 Telephone Jacob Barrientos [facility] & [facility]ILD [facility] 08.13.840.114 350.1.13.10 4.2.7.2.686 [id number] 107 [id number] [facility] 2021-04-10 10:00:00 2021-04-10 10:00:00 Outpatient R LESLIE CASTELLANOS [facility] [id number] [facility] 2021-03-31 00:00:00 2021-03-31 00:00:00 Letter (Out) Rayne Jones [facility] 840.114 350.1.13.10 4.2.7.2.686 [id number] [facility] 2021-03-30 12:30:00 2021-03-30 12:30:00 Outpatient R NI ALVAREZ [facility] [id number] [facility] 2020-12-30 09:29:12 2020-12-30 10:10:09 Office Visit Jacob Barrientos [facility] 08.13.840.114 350.1.13.10 4.2.7.2.686 [id number] 107 [id number] [facility] 2020-12-30 09:29:12 2020-12-30 10:10:09 Office Visit Jacob Barrientos [facility] 1.840.114 350.1.13.10 4.2.7.2.686 [id number] 107 [id number] 2020-12-30 09:30:00 2020-12-30 09:30:00 Outpatient R LESLIE CASTELLANOS [facility] [id number] [facility] 2020-12-30 08:45:00 2020-12-30 08:45:00 Outpatient R JACOB BARRIENTOS [facility] [id number] [facility] 2020-12-16 08:57:28 2020-12-16 09:27:28 Office Visit Leslie Castellanos [facility] 1.84.114 350.1.13.10 4.2.7.2.686 [id number] 107 [id number] [facility] 2020-12-16 09:00:00 2020-12-16 09:00:00 Outpatient R LESLIE CASTELLANOS [facility] [id number] [facility] 2020-12-16 00:00:00 2020-12-16 00:00:00 Orders Only Doctor Unassigned, Roberts [facility] ..114 350.1.13.10 4.2.7.2.686 [id number] [facility] 2020-12-02 00:00:00 2020-12-02 00:00:00 Telephone Leslie Castellanos [facility] 1.84.114 350.1.13.10 4.2.7.2.686 [id number] 107 [id number] [facility] 2020-11-29 15:31:01 2020-11-29 15:46:01 Nurse Visit Visit, [facility] Nurse BarrientosJacob [facility] & [facility]ILD [facility] 1.2.840.114 350.1.13.10 4.2.7.2.686 [id number] 107 [id number] [facility] 2020-11-29 15:30:00 2020-11-29 15:30:00 Outpatient Ivan JACOB BARRIENTOS [facility] [id number] [facility] 2020-11-29 00:00:00 2020-11-29 00:00:00 Telephone BarrientosJacob [facility]ILD [facility] 1..840.114 350.1.13.10 4.2.7.2.686 [id number] 107 [id number] [facility] 2020-11-02 10:16:29 2020-11-02 11:05:27 Office Visit BarrientosJacob [facility] 1..840.114 350.1.13.10 4.2.7.2.686 [id number] 107 [id number] [facility] 2020-11-02 10:15:00 2020-11-02 10:15:00 Outpatient Ivan BARRIENTOSJACOB [facility] [id number] [facility] 2020-11-02 00:00:00 2020-11-02 00:00:00 Orders Only Doctor Unassigned, Roberts [facility] 1.840.114 350.1.13.10 4.2.7.2.686 [id number] [facility] 2020-11-01 15:00:00 2020-11-01 15:00:00 Outpatient Ivan JACOB BARRIENTOS [facility] [id number] [facility] 2020-11-01 00:00:00 2020-11-01 00:00:00 Patient Outreach Joel Matt Hua [facility] 1.114 350.1.13.10 4.2.7.2.686 [id number] [facility] 2020-07-13 00:00:00 2020-07-13 00:00:00 Patient Secure Msg Doctor Unassigned, Roberts [facility] 1.114 350.1.13.10 4.2.7.2.686 [id number] [facility] 2020-07-04 00:00:00 2020-07-04 00:00:00 RefLeslie Marroquin [facility] 1..114 350.1.13.10 4.2.7.2.686 [id number] 107 [id number] [facility] 2020-06-13 09:15:00 2020-06-13 09:15:00 Outpatient R LESLIE CASTELLANOS [facility] [id number] [facility] 2020-06-13 09:15:00 2020-06-13 09:15:00 Outpatient R LESLIE CASTELLANOS [facility] [id number] [facility] 2020-06-01 00:00:00 2020-06-01 00:00:00 RefLeslie Marroquin [facility] 1.114 350.1.13.10 4.2.7.2.686 [id number] 107 [id number] [facility] 2020-05-30 00:00:00 2020-05-30 00:00:00 Elena Sanchez Critical access hospital Manny pires [address] .114 350.1.13.10 4.2.7.2.686 [id number] [facility] 2020-05-27 10:30:00 2020-05-27 10:30:00 Outpatient LESLIE BOWER [facility] [id number] [facility] 2020-05-27 10:30:00 2020-05-27 10:30:00 Outpatient R THIENMAXTELLYLESLIE [facility] [id number] [facility] 2020-05-10 11:18:40 2020-05-10 11:38:40 Urgent Care Provider, [facility] [address] 1..114 350.1.13.10 4.2.7.2.686 [id number] [facility] 2020-05-10 11:20:00 2020-05-10 11:20:00 [facility] [id number] [facility] 2020-05-09 00:00:00 2020-05-09 00:00:00 Telephone Jacob Barrientos [facility] MATERNAL & CHILD [facility] 1.84.114 350.1.13.10 4.2.7.2.686 [id number] 107 [id number] [facility] 2020-03-31 09:26:23 2020-03-31 10:13:41 Office Visit Leslie Castellanos [facility] MATERNAL & CHILD [facility] 1.840.114 350.1.13.10 4.2.7.2.686 [id number] 107 [id number] [facility] 2020-03-31 09:00:00 2020-03-31 09:00:00 Outpatient R THIENMAXTELLYLESLIE [facility] [id number] [facility] 2020-03-11 00:00:00 2020-03-11 00:00:00 Telephone Leslie Castellanos [facility] 1.84.114 350.1.13.10 4.2.7.2.686 [id number] 107 [id number] [facility] 2020-03-10 14:30:00 2020-03-10 14:30:00 Outpatient R LESLIE CASTELLANOS [facility] [id number] [facility] 2020-03-10 10:09:10 2020-03-10 11:09:52 Office Visit Leslie Castellanos Patricio [facility] 1.2.840.114 350.1.13.10 4.2.7.2.686 [id number] 107 [id number] [facility] 2020-03-07 00:00:00 2020-03-07 00:00:00 Telephone Jacob Barrientos [facility] 1.2.840.114 350.1.13.10 4.2.7.2.686 [id number] 107 [id number] [facility] 2019-12-29 13:01:04 2019-12-30 11:33:02 Initial Visit Jacob Barrientos [facility] 1.2.840.114 350.1.13.10 4.2.7.2.686 [id number] 107 [id number] [facility] 2019-12-30 00:00:00 2019-12-30 00:00:00 Patient Secure Msg Doctor Unassigned, Roberts [facility] 1.2.840.114 350.1.13.10 4.2.7.2.686 [id number] 107 [id number] [facility] 2019-12-30 00:00:00 2019-12-30 00:00:00 Patient Secure Msg Doctor Unassigned, Roberts [facility] 1.2.840.114 350.1.13.10 4.2.7.2.686 [id number] 107 [id number] [facility] 2019-12-29 14:04:59 2019-12-29 14:20:25 Office Visit Jacob Barrientos [facility] 1.2.840.114 350.1.13.10 4.2.7.2.686 [id number] 107 [id number] [facility] 2019-12-29 12:45:00 2019-12-29 12:45:00 Outpatient R CIERRA BARRIENTOSSHELL [facility] [id number] [facility] 2019-12-15 07:30:05 2019-12-15 08:20:00 Emergency Fletcher Ramesh [facility] 1.2.840.114 350.1.13.10 4.2.7.2.686 [id number] [facility] 2019-12-14 00:00:00 2019-12-14 00:00:00 Patient Secure Ethel Abraham [facility] MATERNAL & CHILD [facility] 1..840.114 350.1.13.10 4.2.7.2.686 [id number] 107 [id number] [facility] 2019-11-30 08:30:00 2019-11-30 08:30:00 Outpatient R [facility] [id number] [facility] 2019-11-27 09:30:00 2019-11-27 09:30:00 Outpatient R [facility] [id number] [facility] 2019-11-26 09:00:00 2019-11-26 09:00:00 Outpatient R [facility] [id number] [facility] 2019-11-26 00:00:00 2019-11-26 00:00:00 Telephone Jacob Barrientos [facility] 1.2.840.114 350.1.13.10 4.2.7.2.686 [id number] 107 [id number] [facility] 2019-11-24 09:30:00 2019-11-24 09:30:00 Outpatient R LESLIE CASTELLANOS [facility] [id number] [facility] 2019-11-03 05:13:00 2019-11-03 05:13:00 Outpatient Raju_P [facility] [id number] [facility] 2019-10-27 00:00:00 2019-10-27 00:00:00 Patient Secure Jacob Caro [facility] MATERNAL & CHILD [facility] 1.2.840.114 350.1.13.10 4.2.7.2.686 [id number] 107 [id number] [facility] 2019-10-16 10:45:40 2019-10-16 11:26:43 Office Visit Leslie Castellanos [facility] 1.2.840.114 350.1.13.10 4.2.7.2.686 [id number] [facility] 2019-10-16 10:45:00 2019-10-16 10:45:00 Outpatient R LESLIE CASTELLANOS [facility] [id number] [facility] 2019-10-07 12:51:31 2019-10-07 13:44:17 Office Visit Leslie Castellanos [facility] 1.2.840.114 350.1.13.10 4.2.7.2.686 [id number] 107 [id number] [facility] 2019-10-07 13:00:00 2019-10-07 13:00:00 Outpatient R LESLIE CASTELLANOS [facility] [id number] [facility] 2019-10-06 00:00:00 2019-10-06 00:00:00 Telephone Leslie Castellanos [facility] 1.2.840.114 350.1.13.10 4.2.7.2.686 [id number] 107 [id number] [facility] 2019-10-02 14:07:49 2019-10-02 15:15:37 Office Visit Leslie Castellanos [facility] 1.2.840.114 350.1.13.10 4.2.7.2.686 [id number] 107 [id number] [facility] 2019-08-25 09:57:53 2019-08-25 13:09:26 Office Visit Emanuel Leslie Curry [facility] 1.2.840.114 350.1.13.10 4.2.7.2.686 [id number] 107 [id number] [facility] 2019-08-25 00:00:00 2019-08-25 00:00:00 Orders Only Doctor Unassigned, Roberts [facility] 1.2.840.114 350.1.13.10 4.2.7.2.686 [id number] [facility] 2019-08-25 00:00:00 2019-08-25 00:00:00 Letter (Out) Liamclarita Leslie Patricio [facility] 1.2.840.114 350.1.13.10 4.2.7.2.686 [id number] 107 [id number] [facility] 2019-03-05 22:28:42 2019-03-05 23:12:00 Emergency Alvin Pace [facility] 1.2.840.114 350.1.13.10 4.2.7.2.686 [id number] [facility] Results Test Description Test Time Test Comments Results Result Co mments Source [facility]23-10-24 19:13:26* Test Item Value Reference Range Interpretation Comme nts BETA HCG (test code = 5839247748) 656.79 See_Comment [Automated messa ge] The system which generated this result transmitted reference range: Non- female and male patients: <5 mIU/mL. The reference range was not used to interpret this result as normal/abnormal. VICENTE (test code = VICENTE) Gestational Age ?Range (mIU/mL) 1-10 ?Weeks ?25-62535713-80 Weeks ?05080-10491430-50 Weeks ?6412-42006514-18 Weeks ?9196-813848 Biotin has been reported to cause a negative bias, interpret results relative to patient's use of biotin. [facility]. Metabolic Panel (24586)2023-10-24 18:43:10* Test Item Value Reference Range Interpretation Comme nts NA (test code = 8666404327) 138 mmol/L 135-145 K (test code = 2556707897) 4.1 mmol/L 3.5-5.0 CL (test code = 2244037064) 105 mmol/L 98-108 CO2 TOTAL (test code = 8759786710) 26 mmol/L 23-31 AGAP (test code = 9688779232) 7 2-16 BUN (test code = 3596795527) 11 mg/dL 7-23 GLUCOSE (test code = 2809047943) 100 mg/dL 70-110 CREATININE (test code = 2160-0) 0.55 mg/dL 0.50-1.04 TOTAL BILI (test code = 7573695024) 1.1 mg/dL 0.1-1.1 CALCIUM (test code = 6556686617) 9.1 mg/dL 8.6-10.6 T PROTEIN (test code = 1996031524) 7.5 g/dL 6.3-8.2 ALBUMIN (test code = 6629777119) 4.4 g/dL 3.5-5.0 ALK PHOS (test code = 2172346936) 58 U/L 34-122 ALTv (test code = 1742-6) 16 U/L 5-35 AST(SGOT) (test code = 1102339494) 25 U/L 13-40 eGFR (test code = 64367-5) 133.1 mL/min/1.73m2 CKD-EPI eGFR (20 21). Assuming creatinine has been stable day-to-day for at least three months, the eGFR indicates Category G1 (>= 90 mL/min/1.73 m2) [facility] with [id number] 18:30:51* Test Item Value Reference Range Interpretation [...] 34.5 g/dL 31.6-35.1 RDW-SD (test code = 24771-4) 40.6 fL 39.0-49.9 RDW-CV (test code = 788-0) 11.9 % 12.0-15.5 L PLT (test code = 777-3) 230 166-358 MPV (test code = 72560-5) 10.7 fL 9.5-12.9 NRBC/100 WBC (test code = 3493331407) 0.0 0.0-10.0 NRBC x10^3 (test code = 1719612151) See_Comment [Automated messa ge] The system which generated this result transmitted reference range: 10*3/?L. The reference range was not used to interpret this result as normal/abnormal. GRAN MAT (NEUT) % (test code = 770-8) 64.9 % IMM GRAN % (test code = 2106467906) 0.30 % LYMPH % (test code = 736-9) 25.7 % MONO % (test code = 5905-5) 6.0 % EOS % (test code = 713-8) 2.5 % BASO % (test code = 706-2) 0.6 % GRAN MAT x10^3(ANC) (test code = 9269170907) 6.11 10*3/uL 1.88-7.09 IMM GRAN x10^3 (test code = 7643623513) 0.03 10*3/uL 0.00-0.06 LYMPH x10^3 (test code = 731-0) 2.43 10*3/uL 1.32-3.29 MONO x10^3 (test code = 742-7) 0.57 10*3/uL 0.33-0.92 EOS x10^3 (test code = 711-2) 0.24 10*3/uL 0.03-0.39 BASO x10^3 (test code = 704-7) 0.06 10*3/uL 0.01-0.07 Lab Interpretation (test code = 75840-1) [facility] [id number] 18:27:00 * Test Item Value Reference Range Interpretation Comme nts ABO & RH (test code = 20) O POSITIVE IAT (test code = 1185) Negative [facility] [id number] 15:42:00* Test Item Value Reference Range Interpretation Comme nts POCT PREG (test code = 1605) Negative On board controls acceptable with C Line (test code = 3574) Yes POCT PREG LOT # (test code = 3575) [id number] POCT PREG TEST DATE ( test code = 3576) 2024-08-14 Lab Interpretation (test cod e = 31779-3) Normal [facility] [id number] 16:00:00* Test Item Value Reference Range Interpretation Comme nts POCT PREG (test code = 1605) Negative On board controls acceptable with C Line (test code = 3574) Yes POCT PREG LOT # (test code = 3575) POCT PREG TEST DATE ( test code = 3576) [facility] [id number] 16:00:00* Test Item Value Reference Range Interpretation Comme nts POCT PREG (test code = 1605) Negative On board controls acceptable with C Line (test code = 3574) Yes POCT PREG LOT # (test code = 3575) POCT PREG TEST DATE ( test code = 3576) [facility] URINALYSIS W SPECIFIC [id number] 15:11:00* Test Item Value Reference Range Interpretation [...] clear Lab Interpretation (test cod e = 31874-4) Abnormal [facility] URINALYSIS W SPECIFIC [id number] 15:11:00* Test Item Value Reference Range Interpretation [...] clear Lab Interpretation (test cod e = 70602-5) Abnormal [facility] [id number] 15:09:00* Test Item Value Reference Range Interpretation Comme nts POCT PREG (test code = 1605) Negative On board controls acceptable with C Line (test code = 3574) Yes POCT PREG LOT # (test code = 3575) [facility] DATE ( test code = 3576[id number]* Test Item Value Reference Range Interpretation Comme nts POCT PREG (test code = 1605) Negative On board controls acceptable with C Line (test code = 3574) Yes POCT PREG LOT # (test code = 3575) POCT PREG TEST DATE ( test code = 3576) [facility] [id number] 02:02:22 * Test Item Value Reference Range Interpretation Comme nts TSH (test code = 9018898994) 2.26 See_Comment [Automated ActiveOa ge] The system which generated this result transmitted reference range: 0.45 - 4.70 mIU/L. The reference range was not used to interpret this result as normal/abnormal. Lab Interpretation (test code = 88938-7) Normal [facility]. METABOLIC PANEL ([id number])2022-12-28 01:32:39* Test Item Value Reference Range Interpretation Comme nts NA (test code = 2231852513) 139 mmol/L 135-145 K (test code = 1992875032) 3.4 mmol/L 3.5-5.0 L CL (test code = 9272344555) 103 mmol/L 98-108 CO2 TOTAL (test code = 9602112766) 24 mmol/L 23-31 AGAP (test code = 3882774287) 12 2-16 BUN (test code = 0608688075) 8 mg/dL 7-23 GLUCOSE (test code = 6645643046) 121 mg/dL 70-110 H CREATININE (test code = 6780280352) 0.57 mg/dL 0.50-1.04 TOTAL BILI (test code = 6727447205) 1.0 mg/dL 0.1-1.1 CALCIUM (test code = 7406206501) 9.2 mg/dL 8.6-10.6 T PROTEIN (test code = 1897095025) 6.9 g/dL 6.3-8.2 ALBUMIN (test code = 6207415115) 4.4 g/dL 3.5-5.0 ALK PHOS (test code = 4613772533) 47 U/L 34-122 ALTv (test code = 1742-6) 16 U/L 5-35 AST(SGOT) (test code = 3320380673) 22 U/L 13-40 eGFR (test code = 2310794374) 133.9 mL/min/1.73m2 VICENTE (test code = VICENTE) [...] imaging tests). Lab Interpretation (test code = 58355-1) [facility] Test Item Value Reference Range Interpretation Comme nts LIPASE (test code = 1162950458) 67 U/L 0-220 Lab Interpretation (test cod e = 02712-5) [facility]35 01:20:58* Test Item Value Reference Range Interpretation Comme nts WBC (test code = 6690-2) 9.89 See_Comment [Automated ActiveOa ge] The system which generated this result transmitted reference range: 4.30 - 11.10 10*3/?L. The reference range was not used to interpret this result as normal/abnormal. RBC (test code = 789-8) 4.29 See_Comment [Automated ActiveOa ge] The system which generated this result [...] 34.2 g/dL 31.6-35.1 RDW-SD (test code = 02974-5) 38.2 fL 39.0-49.9 L RDW-CV (test code = 788-0) 11.9 % 12.0-15.5 L PLT (test code = 777-3) 177 See_Comment [Automated ActiveOa ge] The system which generated this result transmitted reference range: 166 - 358 10*3/?L. The reference range was not used to interpret this result as normal/abnormal. MPV (test code = 98753-6) 11.6 fL 9.5-12.9 NRBC/100 WBC (test code = 6114079541) 0.0 See_Comment [Automated HERMEL DELOR ssage] The system which generated this result transmitted reference range: 0.0 - 10.0 /100 WBCs. The reference range was not used to interpret this result as normal/abnormal. NRBC x10^3 (test code = 1975622473) See_Comment [Automated ActiveOa ge] The system which generated this result transmitted reference range: 10*3/?L. The reference range was not used to interpret this result as normal/abnormal. GRAN MAT (NEUT) % (test code = 770-8) 64.1 % IMM GRAN % (test code = 2898119590) 0.30 % LYMPH % (test code = 736-9) 28.1 % MONO % (test code = 5905-5) 5.8 % EOS % (test code = 713-8) 1.3 % BASO % (test code = 706-2) 0.4 % GRAN MAT x10^3(ANC) (test code = 0618593560) 6.34 10*3/uL 1.88-7.09 IMM GRAN x10^3 (test code = 4831523624) 0.03 10*3/uL 0.00-0.06 LYMPH x10^3 (test code = 731-0) 2.78 10*3/uL 1.32-3.29 MONO x10^3 (test code = 742-7) 0.57 10*3/uL 0.33-0.92 EOS x10^3 (test code = 711-2) 0.13 10*3/uL 0.03-0.39 BASO x10^3 (test code = 704-7) 0.04 10*3/uL 0.01-0.07 Lab Interpretation (test code = 50541-3) Abnormal [facility] HGXL8182-37-87 01:05:00* Test Item Value Reference Range Interpretation Comme nts POCT PREG (test code = 1605) Negative On board controls acceptable with C Line (test code = 3574) Yes POCT PREG LOT # (test code = 3575) 776323 POCT PREG TEST DATE ( test code = 3576) 2024-03-19 Lab Interpretation (test cod e = 55622-6) Normal [facility] SODH1672-94-57 15:47:00* Test Item Value Reference Range Interpretation Comme nts POCT PREG (test code = 1605) Negative On board controls acceptable with C Line (test code = 3574) Yes POCT PREG LOT # (test code = 3575) POCT PREG TEST DATE ( test code = 3576) [facility] ZAEU9241-05-81 15:47:00* Test Item Value Reference Range Interpretation Comme nts POCT PREG (test code = 1605) Negative On board controls acceptable with C Line (test code = 3574) Yes POCT PREG LOT # (test code = 3575) POCT PREG TEST DATE ( test code = 3576) [facility] Notes Date/Time Note Provider Source 2023-10-24 16:52:17 c3gHMtCzWFLgiHG5QpOI /hxNLosVlLx Gig+aglP2jXHPyyh8wC1/a+jX6uS0IA On1946-63-07Z22:52:17 Patient states that she is tired and hungry and is ready to leave. States "I just had the trans vag but I don't want to wait for the results, she said it would be an hour. My levels looked Ok so I'm just going to leave". AMA form signed, IV removed and patient left the department. 83931-3Cglbhktso department DnmwXN8613-81-67J22:53:11[facility] NoteTXT1.2.840.539810.1.13.104. 2.7.2.497462|[id number] [facility] for patient klbj41128-7BquxEEETQITKOBFKurxy tted C-CDA narrative textUT[address] LskwLopvyjvwhWfdhvoivqSZYD29392 54618ZNXKHPBILEUJLILNJRZNDH8757 -03-14T16:53:111.2.840.899567.1 .72.3.15|1.2.840.323364.1.13.10 4.2.7.2.727879_[id number] [facility] 2023-10-24 15:47:36 /26XKWHMMOQha3416DXw O2Jkbwm7UEX LvQzXiW3vBQo9kQ1b2sSyadq0HWtd0v N17479-73-13N17:47:36 Pt being evaluated in ER at this time. 85515-4Uadvbhszu encounter AeaiJH0813-76-71J64:47:47Teleph one encounter NoteTXT1.2.840.440246.1.13.104. 2.7.2.099470|[id number] ble for patient asqa26780-6DvlsVQCFLFLEMUPEjjtk tted C-CDA narrative [id number] Garcia [address] 62630IEGXFJMXTJZNSFVEWWUFKD6912 -03-14T15:47:471.2.840.124393.1 .72.3.15|1.2.840.183285.1.13.10 4.2.7.2.727879_[id number] Francine Aparicio [facility] 2023-10-24 14:46:48 nEVvqXoun5F1CrZ816es Oi5CTiiys5s e/RNq1xLTiEVO+B5YuGoow3bCGKBWVb EI6851-49-75W76:46:48 Maylin Zuniga is a 23 year old femalePt is calling to speak with a nurse to see if she is ok to take her VENLAFAXINE XR 37.5 mg 24 hr capsule while . Pt has not been taking the medication and is biting skin [place] [address]-5Vyqfnpxuh encounter JjspLY1177-41-02A60:50:37Teleph one encounter NoteTXT1.2.840.439083.1.13.104. 2.7.2.864012|[id number] ble for patient cfud42688-1FcjtBZHOHGAUFMXJvgjx tted C-CDA narrative xgdj746148967Xowwua P Robinson[address]TX[address] 25313PTNGAGWJBTXGJCRASZVRTU1805 -03-14T14:50:371.2.840.007094.1 .72.3.15|1.2.840.049004.1.13.10 4.2.7.2.727879_[id number] Andriy Godinez [facility] 2023-10-24 11:37:27 bAnUC8972Wh+GBtBEQj6 J3w87UphpKz VmytPiEUDYY2YUpSZqqVBrzorGAvS2J 484920-31-24W96:37:27 Patient reports being 6 weeks and began cramping this AM with no discharge. Patient has not had first appointment yet with OB which is scheduled for the . N9Wppeyskyeceeid signed by Manda Harrell RN at 10/24/2023 11:38 AM YBS74371-6Cedtmwkvk department Triage clveNU6066-28-70C34:38:44[facility] department Triage noteTXT1.2.840.652570.1.13.104. 2.7.2.369150|[id number] ble for patient dcbl62977-4Duebnohti department NoteLNNARRATIVEFormatted C-CDA narrative [id number] M Hayes RN[address] UwfxYgksbiidcIinwbecnoRFFJ13621 48882HSPBYLUOVFCPRUQRPSCSTL9922 -03-14T11:38:441.2.840.946525.1 .72.3.15|1.2.840.945357.1.13.10 4.2.7.2.727879_[id number] Manda Harrell RN [facility] 2023-08-13 11:31:01 Dwm5HuxMLkHuY/OedFFe straightening press operator+wU3MZhnB Ixtm9yBezpJEjzvpEX45ymq8abDhvdB QM5524-81-10P79:31:01 Maylin Zuniga is a 23 year old femaleovarian cysts on one or two ovaries x called to schedule appt with PGY.Please contact pt at [phone] (home) 95732-8Bopxohhhl encounter ZindIU1535-03-84G63:31:38Teleph one encounter NoteTXT1.2.840.540954.1.13.104. 2.7.2.580178|[id number] ble for patient etka07636-0SjrkXKUFPOWGFZJUnvmh tted C-CDA narrative tmuf536257909Iokqodqqy L [address] 67892JXVPQAZPYALYAROMKWTGAW3560 -01-02T11:31:381.2.840.635320.1 .72.3.15|1.2.840.795870.1.13.10 4.2.7.2.727879_[id number] Avelina Crandall [facility] 2023-04-24 12:05:28 HQjSJ2ilCdPHncjKu2Jw Obtin3ZsDqc 5ccDUSRdbjQC2t20gAY0Nw8ewHv6VV1 il9505-75-82Q45:05:28 Pt left before obtaining discharge paperwork. 68876-5Sljnpoypf department KkjcWH0977-22-74X06:05:42[address] department NoteTXT1.2.840.532452.1.13.104. 2.7.2.914748|[id number] ble for patient iaow19915-3XyxeOE699238980Hatln jan Hall [address] 11330HURJCUTYINDITCLYNJFJEE8468 -09-13T12:05:421.2.840.988925.1 .72.3.15|1.2.840.314526.1.13.10 4.2.7.2.727879_[id number] Anne Hall RN [facility] 2023-04-24 10:09:17 GBo7vG9fnbsuE8KCy9pv u9rBnDUGxHS wVHfF0GOK5bWmWMiCryeJRPCcGs6ugP 0n1599-32-97H49:09:17 Patient states "I have one positive test and one negative test for . So I just wanted to make sure."Patient here for confirmation. 30667-0Lncsrbyua department Triage eugbVR2818-15-06E16:09:58[facility] department Triage noteTXT1.2.840.704646.1.13.104. 2.7.2.625606|[id number] ble for patient obuv45276-2Iypmcbfhv department ZmnhUJ548188096Yylew S Cryer RN[address] BxyiGiaikqdhvSflbpubrpKXVB21564 82872MLXASTKMRQVCBZUHUWXUQA2924 -09-13T10:09:581.2.840.371012.1 .72.3.15|1.2.840.268621.1.13.10 4.2.7.2.727879_[id number] Amanda Hoang RN [facility] 2023-04-08 08:38:40 xzzILQr7FSkNWiSmuiZU lnte3a/8Vkj 5I77yAtIjJNyWJkNxioqIS+1c6xqTdn IA0822-10-95R78:38:40 Spoke with patient, verbalized understanding medication is at the pharmacy. 95093-9Yvfqekblu encounter AwkxLC5992-60-63Q66:40:04Teleph one encounter NoteTXT1.2.840.819150.1.13.104. 2.7.2.432598|[id number] ble for patient kyis26439-8WppyGY969484703Vroam y L Gavin RN[address]TX[address] 62266CUVVSGILYJNGONRSLVVHRU4850 -08-28T08:40:041.2.840.757439.1 .72.3.15|1.2.840.014104.1.13.10 4.2.7.2.727879_[id number] Noar Alonso RN [facility] 2023-04-04 16:31:40 OCpUvb0BLMjMq2BGwq2Q yglWeZaVOQP bRunKujy84QUFuedPHrq57FowJCZJ3F iY7281-96-86H33:31:40 I have sent nausea medications to the pharmacyPlease let patient know 96121-9Xgkocsbev encounter DlmeFQ5241-85-24L87:32:32Teleph one encounter NoteTXT1.2.840.887448.1.13.104. 2.7.2.379283|[id number] ble for patient wgxz00453-1NzkxXVPVXEHANZ[address]TXTX[address] 31573VZVCSZOOFOAINGYZFPYJLI3385 -08-24T16:32:321.2.840.415391.1 .72.3.15|1.2.840.662915.1.13.10 4.2.7.2.727879_[id number] [facility] 2023-04-01 13:30:00 AG8Ga44H3VEVmzCF4bG9 OydUVNhzHRo jMBvn060BaIIf9CoV4MwJxBQO2bOrjf yc0298-91-75P35:30:00 Images from the original note were not included.Venipuncture collection performed by clean technique on the left anticubitus. Total of 1 attempts were made. Slight pressure and a bandage/dressing were applied to the site(s). The patient experienced no complications. The following specimens were processed according to instructions and sent to [facility] laboratories per lab order on 04/01/2023: LT BLUE SST 3 RED LAV 1 PPT DK GREEN (LiHep) DK GREEN (SodH) KRISHNAN DK BLUE (K2) DK BLUE (S) ACD Blood Culture NIPT/NTD 98423-2Zidya HhlhSP0474-59-38H86:37:41Nurse NoteTXT1.2.840.718631.1.13.104. 2.7.2.611958|[id number] ble for patient rvcp52227-6Rqxiz NoteLNUT[address] RbavChedoagroWhidcsucbOILP17676 68989UHYNGFHPUJGQRRYAABOMMM7349 -08-21T13:37:411.2.840.539793.1 .72.3.15|1.2.840.930221.1.13.10 4.2.7.2.727879_[id number] [facility] 2023-03-13 14:39:33 62pdYo0eerkRKqWsqtZY 2mnIV2tRnLr k6lIoyr3GqN2KFu9URP1Y7Fh3OFOfxz xl6080-34-35C21:39:33 Rx sent, let patient know, and to follow-up as scheduled. 36517-4Eshrjmfvu encounter HswlAW4694-82-01H19:39:33Teleph one encounter NoteTXT1.2.840.496924.1.13.104. 2.7.2.195212|[id number] ble for patient sdkd38851-5JjvkTVSGZSNWPR[address] 21093LKKISBHDDKHOYWNHIOFINB9774 -08-02T14:39:331.2.840.468799.1 .72.3.15|1.2.840.326709.1.13.10 4.2.7.2.727879_[id number] [facility] 2023-03-11 08:25:31 b4zSzpSwNn2XfhW0KQr+ XpE5YjKi0hS Uet1g2LrP5UyEMLEq4l0FUb0ZHx7hE+ oh3134-42-48M08:25:31 NICOLE 02/14/23NOV 03/14/23LRD 02/14/23Routing to correct pool 84304-8Wexfbitez encounter OpdyIY6907-52-49R52:26:31Teleph one encounter NoteTXT1.2.840.489881.1.13.104. 2.7.2.831013|[id number] ble for patient qccc54468-2PyohWPOY-ULDXULMOLEI N-PSYCHIATRY[address] 99662SVFCZAPVOVJBLPFMXUKMTD8117 -07-31T08:26:311.2.840.709809.1 .72.3.15|1.2.840.763366.1.13.10 4.2.7.2.727879_[id number] PN-PSYCHIATRY [facility]
[2023-10-30 07:40] LABS: Absolute Eosinophils 0.3 K/uL (0-0.5); Absolute Lymphocytes (CBC) 2.3 K/uL (0.7-4.9); Absolute Monocytes 0.5 K/uL (0.1-1.3); Absolute Neutrophil 4.5 K/uL (1.8-8.0); Basophils % 0.5 % (0-1.3); Eosinophils % 4.1 % (0-4.4); Hematocrit 38.8 % (36.0-45.0); Hemoglobin 13.5 g/dL (12.0-15.0); Lymphocytes % 30.1 % (15.3-44.8); MCH 32.1 pg (27.0-35.0); MCHC 34.8 g/dL (32.0-36.0); MCV 92.4 fL (80-100); MPV 9.1 fL (7.6-11.3); Monocytes % 6.1 % (3.3-12.3); Neutrophils % 59.2 % (41.7-73.7); Nucleated Red Blood Cells % 0.2 % (0-0); Platelets 213 thou/uL (152-406); RBC Red Blood Cell Count 4.21 M/uL (3.86-4.86); Red Cell Distribution Width 12.7 % (12.1-15.2)
[2023-10-30 08:01] LABS: Specific Gravity 1.012 (1.005-1.030); Specific Gravity 1.013 (1.005-1.030); Urine Bacteria None Seen /HPF (<20); Urine Bilirubin NEGATIVE (Negative); Urine Blood Negative (Negative); Urine Clarity Turbid (Clear); Urine Color Light-Yellow (Yellow); Urine Culture Reflex Order NOT NEEDED; Urine Glucose NEGATIVE (Negative); Urine Ketones NEGATIVE (Negative); Urine Microscopic Reflex YN ORDER UMIC; Urine Mucus Slight /HPF (None Seen); Urine Nitrite NEGATIVE (Negative); Urine Protein NEGATIVE (Negative); Urine RBC <5 /HPF (None Seen); Urine Urobilinogen Normal (Normal); Urine WBC <5 /HPF (<5); Urine pH 7.5 (5.0-7.0)
[2023-10-30 08:15] LABS: Anion Gap 9.4 mEq/L (5.0-15.0); Potassium 3.4 mEq/L (3.5-5.1)
--- NOTE | 2023-10-30 08:19 | RAD REPORT ---
EXAM DESCRIPTION: US - Transvaginal OB - 10/30/2023 7:48 am CLINICAL HISTORY: VAGINAL BLEEDING COMPARISON: Transvaginal OB dated 09/25/2021 TECHNIQUE: Sonographic grayscale and color flow images of a first-trimester were obtained through transvaginal approach. FINDINGS: A single intrauterine is identified. Ovoid gestational sac present within the uterus, measures 10.5 mm in average diameter, corresponding to gestational age of 5 weeks, 5 days. No pole or discrete yolk sac were identified although minimal echogenicities or debris are pres ent within the sac. Ovoid right ovarian 3.8 cm anechoic cyst is present with some peripheral vascularity, could represent a corpus luteum cyst. Left ovary is present with normal appearing numerous small follicles. No free fluid. IMPRESSION: 1. Single gestational sac within the uterine cavity without a discrete pole or car diac pulsations. Short-term follow-up ultrasound in 7-10 days is recommended to determine viabi lity. Please correlate with serial beta HCG levels as well. 2. Calculated gestational age: 5 weeks, 5 days. Estimated due date by ultrasound: 06/26/2024.
--- NOTE | 2023-10-30 09:26 | EDPHYS ---
Physician Documentation [facility] Name: Maylin Zuniga Age: 23 yrs Sex: Female : 2000 Arrival Date: 10/30/2023 Time: 07:05 Bed 4 Private MD: ED Physician Byron Schultz HPI: 10/29 07:17 This 23 yrs old Female presents to ER via Ambulatory with complaints of sp3 PREG-6wks, Vaginal Bleeding. 07:17 23-year-old female G2, presents to the ED with chief complaint vaginal bleeding. sp3 Patient was recently seen here with beta hCG levels at 1454 approximately 1 week ago. Patient denies any cramping, pain, syncope, near syncope, or any other symptoms at this time. Review of systems otherwise negative. Vaginal bleeding was yesterday evening and has fully resolved. Patient does not have a local OB due to insurance reasons.. Historical: - Allergies: 07:13 NKDA; ll1 - PMHx: 07:13 Anxiety; depressive disorder; ovarian cyst rupture (depressive disorder); ll1 - Immunization history:: Adult Immunizations up to date. - Social history:: Smoking status: Patient denies any tobacco usage or history of. ROS: 07:18 Constitutional: Negative for fever, chills, and weight loss, Eyes: Negative for injury, sp3 pain, redness, and discharge, ENT: Negative for injury, pain, and discharge, Neck: Negative for injury, pain, and swelling, Cardiovascular: Negative for chest pain, palpitations, and edema, Respiratory: Negative for shortness of breath, cough, wheezing, and pleuritic chest pain, Back: Negative for injury and pain, MS/Extremity: Negative for injury and deformity, Skin: Negative for injury, rash, and discoloration, Neuro: Negative for headache, weakness, numbness, tingling, and seizure, Psych: Negative for depression, anxiety, suicide ideation, homicidal ideation, and hallucinations, Allergy/Immunology: Negative for hives, rash, and allergies, Endocrine: Negative for neck swelling, polydipsia, polyuria, polyphagia, and marked weight changes, Hematologic/Lymphatic: Negative for swollen nodes, abnormal bleeding, and unusual bruising, 07:18 All other systems are negative, Exam: 07:18 Constitutional: This is a well developed, well nourished patient who is awake, alert, sp3 and in no acute distress. Head/Face: Normocephalic, atraumatic. Eyes: Pupils equal round and reactive to light, extra-ocular motions intact. Lids and lashes normal. Conjunctiva and sclera are non-icteric and not injected. Cornea within normal limits. Periorbital areas with no swelling, redness, or edema. Neck: Trachea midline, no thyromegaly or masses palpated, and no cervical lymphadenopathy. Supple, full range of motion without nuchal rigidity, or vertebral point tenderness. No Meningismus. Chest/axilla: Normal chest wall appearance and motion. Nontender with no deformity. No lesions are appreciated. Cardiovascular: Regular rate and rhythm with a normal S1 and S2. No gallops, murmurs, or rubs. Normal PMI, no JVD. No pulse deficits. Respiratory: Lungs have equal breath sounds bilaterally, clear to auscultation and percussion. No rales, rhonchi or wheezes noted. No increased work of breathing, no retractions or nasal flaring. Abdomen/GI: Soft, non-tender, with normal bowel sounds. No distension or tympany. No guarding or rebound. No evidence of tenderness throughout. Back: No spinal tenderness. No costovertebral tenderness. Full range of motion. Skin: Warm, dry with normal turgor. Normal color with no rashes, no lesions, and no evidence of cellulitis. MS/ Extremity: Pulses equal, no cyanosis. Neurovascular intact. Full, normal range of motion. Neuro: Awake and alert, GCS 15, oriented to person, place, time, and situation. Cranial nerves II-XII grossly intact. Motor strength 5/5 in all extremities. Sensory grossly intact. Cerebellar exam normal. Normal gait. Psych: Awake, alert, with orientation to person, place and time. Behavior, mood, and affect are within normal limits. 07:18 Abdomen/GI: No current vaginal bleeding reported., Vital Signs: 07:12 BP 125 / 77; Pulse 75; Resp 18; Temp 97.8(O); Pulse Ox 99% on R/A; rs5 07:18 BP 136 / 86; Pulse 81; Resp 16; Temp 97.7; Pulse Ox 98% on R/A; Weight 58.97 kg; Height ll1 5 ft. 4 in. ; 09:44 BP 130 / 80; Pulse 77; Resp 18; Pulse Ox 99% on R/A; rs5 07:18 Body Mass Index 22.31 (58.97 kg, 162.56 cm) ll1 MDM: 07:11 Patient medically screened. sp3 07:19 Data reviewed: vital signs, nurses notes, old medical records, lab test result(s), sp3 radiologic studies. ED course: 23-year-old female G2, P1 with LMP approximately 6 weeks ago now presents with a resolved vaginal bleeding. Differential diagnosis includes spontaneous miscarriage versus threatened AB. I am not highly suspicious for ectopic , surgical emergency including intra-abdominal pathology, UTI or kidney stone, or any other critical process. Workup will include laboratory values, beta-hCG quant level, ultrasound transvaginal, and general observation. Disposition pending workup and patient course.. 09:23 ED course: Final diagnosis is threatened AB with ultrasound demonstrating SL IUP at 5 sp3 weeks 5 days. No current vaginal bleeding noted. hCG is appropriately elevated at greater than 6000.. 10/29 07:11 Order name: Abo/rh Typing; Complete Time: 09:23 sp3 10/29 07:11 Order name: Basic Metabolic Panel; Complete Time: 08:25 sp3 10/29 07:11 Order name: CBC with Diff; Complete Time: 08:10 sp3 10/29 07:11 Order name: Test, Urine; Complete Time: 08:10 sp3 10/29 07:11 Order name: Quantitative Hcg; Complete Time: 08:25 sp3 10/29 07:11 Order name: Urinalysis w/ reflexes; Complete Time: 08:10 sp3 10/29 07:11 Order name: US Transvaginal Ob; Complete Time: 08:25 sp3 10/29 07:11 Order name: IV Saline Lock; Complete Time: 07:55 sp3 10/29 07:11 Order name: Labs collected and sent; Complete Time: 07:55 sp3 10/29 07:11 Order name: NPO; Complete Time: 07:55 sp3 Administered Medications: No medications were administered Disposition Summary: 10/30/23 09:25 Discharge Ordered Notes: Location: Home sp3 Condition: Stable sp3 Diagnosis - Threatened miscarriage sp3 Followup: sp3 - With: Private Physician - When: Upon discharge from the Emergency Department - Reason: Recheck today's complaints, Continuance of care Discharge Instructions: - Discharge Summary Sheet sp3 - Threatened Miscarriage sp3 Forms: - Medication Reconciliation Form sp3 - Thank You Letter sp3 - Antibiotic Education sp3 - Prescription Opioid Use sp3 - Patient Portal Instructions sp3 - Leadership Thank You Letter sp3 Signatures: Dispatcher [employer] Fang Taylor RN RN ll1 Byron Schultz MD MD sp3 Corrections: (The following items were deleted from the chart) 07:19 07:17 23-year-old female G2, presents to the ED with chief complaint vaginal sp3 bleeding. Patient was recently seen here with beta hCG levels at 1454 approximately 1 week ago. Patient denies any cramping, pain, syncope, near syncope, or any other symptoms at this time. Review of systems otherwise negative.. sp3
--- NOTE | 2023-10-30 09:26 | ER ---
Nurse's Notes [facility] Name: Maylin Zuniga Age: 23 yrs Sex: Female : 2000 Arrival Date: 10/30/2023 Time: 07:05 Bed 4 Private MD: Diagnosis: Threatened miscarriage Presentation: 10/29 07:14 Chief complaint: Patient states: Vaginal bleeding last night, slight cramping today. ll1 3rd visit for vaginal bleeding. Coronavirus screen: Client denies travel out of the [place] in the last 14 days. At this time, the client does not indicate any symptoms associated with coronavirus-19. Ebola Screen: Patient denies travel to an Ebola-affected area in the 21 days before illness onset. Initial Sepsis Screen: Does the patient meet any 2 criteria? No. Patient's initial sepsis screen is negative. Does the patient have a suspected source of infection? No. Patient's initial sepsis screen is negative. Risk Assessment: Do you want to hurt yourself or someone else? Patient reports no desire to harm self or others. Onset of symptoms. 07:14 Method Of Arrival: Ambulatory ll1 07:14 Acuity: VINNY 3 ll1 Triage Assessment: 07:19 General: Appears in no apparent distress. Behavior is calm, cooperative, appropriate ll1 for age. Pain: Complains of pain in pelvis Quality of pain is described as aching, crampy. GI: Reports cramping. : Reports vaginal bleeding that is last night, none now. Historical: - Allergies: 07:13 NKDA; ll1 - PMHx: 07:13 Anxiety; depressive disorder; ovarian cyst rupture (depressive disorder); ll1 - Immunization history:: Adult Immunizations up to date. - Social history:: Smoking status: Patient denies any tobacco usage or history of. Screenin:13 [facility] ED Fall Risk Assessment (Adult) History of falling in the last 3 months, rs5 including since admission No falls in past 3 months (0 pts) Confusion or Disorientation No (0 pts) Intoxicated or Sedated No (0 pts) Impaired Gait No (0 pts) Mobility Assist Device Used No (0 pt) Altered Elimination No (0 pt) Score/Fall Risk Level 0 - 2 = Low Risk Oriented to surroundings, Maintained a safe environment. 07:13 Abuse screen: Denies threats or abuse. Nutritional screening: No deficits noted. rs5 Tuberculosis screening: No symptoms or risk factors identified. Assessment: 07:12 General: Appears in no apparent distress. comfortable, Behavior is calm, cooperative. rs5 Pain: Denies pain. Neuro: Level of Consciousness is awake, alert, obeys commands, Oriented to person, place, time, situation. Cardiovascular: Patient's skin is warm and dry. Rhythm is regular. Respiratory: Airway is patent Respiratory effort is even, unlabored, Respiratory pattern is regular, symmetrical. GI: Abdomen is round non-distended, Abd is soft and non tender X 4 quads. : Reports cramping, vaginal bleeding that is light flow. 07:12 EENT: No signs and/or symptoms were reported regarding the EENT system. Derm: No signs rs5 and/or symptoms reported regarding the dermatologic system. Musculoskeletal: Circulation, motion, and sensation intact. Range of motion: intact in all extremities. 08:15 Reassessment: No changes from previously documented assessment. rs5 09:30 Reassessment: Patient and/or family updated on plan of care and expected duration. Pain rs5 level reassessed. Patient is alert, oriented x 3, equal unlabored respirations, skin warm/dry/pink. Vital Signs: 07:12 BP 125 / 77; Pulse 75; Resp 18; Temp 97.8(O); Pulse Ox 99% on R/A; rs5 07:18 BP 136 / 86; Pulse 81; Resp 16; Temp 97.7; Pulse Ox 98% on R/A; Weight 58.97 kg; Height ll1 5 ft. 4 in. ; 09:44 BP 130 / 80; Pulse 77; Resp 18; Pulse Ox 99% on R/A; rs5 07:18 Body Mass Index 22.31 (58.97 kg, 162.56 cm) ll1 ED Course: 07:08 Patient arrived in ED. mg5 07:10 Byron Schultz MD is Attending Physician. sp3 07:11 Kj Al, BILLIE is Primary Nurse. rs5 07:13 Arm band placed on Patient placed in an exam room, on a stretcher. ll1 07:14 Triage completed. ll1 07:14 Patient has correct armband on for positive identification. Bed in low position. Call rs5 light in reach. Side rails up X2. 07:31 Initial lab(s) drawn, by me, sent to lab. Inserted saline lock: 22 gauge in right jg11 antecubital area, using aseptic technique. Blood collected. 07:42 US Transvaginal Ob Sent. bp 07:50 US Transvaginal Ob In Process Unspecified. EDMS 07:55 Urine collected:. [id number] 09:42 Patient did not have IV access during this emergency room visit. intact, bleeding jg11 controlled, No redness/swelling at site. 09:45 No provider procedures requiring assistance completed. rs5 Administered Medications: No medications were administered Medication: 09:45 VIS not applicable for this client. rs5 Outcome: 09:25 Discharge ordered by . sp3 10:00 Patient left the ED. rs5 Signatures: Dispatcher [employer] EDMS Guanakito Molina RN RN bp Fang Jauregui RN RN ll1 Byron Schultz MD MD sp3 Kj Al RN RN rs5 Soledad Roberts 5 Wesly Richardson jg11 Corrections: (The following items were deleted from the chart) 07:56 07:14 Acuity: VINNY 4 ll1 ll1
[2023-10-30 10:16] VITALS: BP 130/80; TEMP 97.7; O2SAT 99
== END ==
LOC: ER 07:05
DX: O20.0 Threatened abortion (principal); Z3A.01 Less than 8 weeks gestation of pregnancy
CPT/HCPCS: 36415; 76817; 80048; 81001; 81025; 84702; 85025; 86900; 86901

== ENCOUNTER 2023-11-18 20:17 | Emergency (ER) | payer OTHER ==
--- OUTSIDE RECORDS SUMMARY | 2023-11-18 20:23 | XMS REPORT | Continuity of Care Document ---
Author Name Unknown Address [address] [facility] [address] [place] [id number] [facility] [address] [facility] [address] [place] [address] Care Team Providers Care Pipeliner Name Role Phone BOWERSELIZA Primary Care Physician Unavailab LESLIE [place] Attending Clinician Unavail able Leslie Diane Attending Clinician + Carla Vaughn CNM Attending Clinician [phone] CARLA VAUGHN Attending Clinician UnavailARNOLD Greco Attending Clinician Unavailable Arnold Blum MD Attending Clinician [phone] Lawson COCHRAN Attending Clinician Unavailable Sydney Lubin MD Attending Clinician [phone] Katarina Attending Clinician Unavailable NACHO NGUYEN Attending Clinician Unavailable Nacho Nguyen MD Attending Clinician [phone] Pgy3 Attending Clinician Unavailable SYDNEY LUBIN Attending Clinician Unavailable BRUNA ARRINGTON Attending Clinician Unavailable BRUNA ARRINGTON Attending Clinician Unavailable Doctor Unassigned, [place] Attending Clinician U navailable Pgy2 Attending Clinician Unavailable Trevor INFORMATICIST, Gretchen Attending Clinician [phone] ELIZA BOWERS Attending Clinician Unavailable RAHEL DICKSON Attending Clinician Unavailable Randolph INFORMATICIST, Rahel Attending Clinician [phone] Soy INFORMATICIST, Eliza Attending Clinician + [phone], [facility] Attending Clinician Unavailable YAW BRO Attending Clinician Unavailable Yaw Bro DO Attending Clinician +[phone] Nurse, [facility] Attending Clinician Un available Unknown, Attending Attending Clinician Unavailab le UNKNOWN, ATTENDING Attending Clinician Unavailab BAILEE Vivar Attending Clinician Unavailable [facility], [facility] Attending Clinician Erica vailable ROSALES CHAPIN Attending Clinician UnavailROSALES [place] Attending Clinician UnavailROSALES Helm Attending Clinician Unavailradha Barrientos INFORMATICIST, Jacob Love Attending Clinician [phone] JACOB BARRIENTOS Attending Clinician Unavailab le Visit, [facility] Nurse Attending Clinician Unava ilable ALIVIA LEE Attending Clinician Unavaila ble Jesus INFORMATICIST, Alivia Liriano Attending Clinician [phone] CINDY APARICIO Attending Clinician Unavailradha Jones RN, Rayne Godoy Attending Clinician Unavailab NI Mckeon Attending Clinician Unavailable Joel Matt DO Attending Clinician [phone] Alysia INFORMATICISTElena Attending Clinician [phone] Provider, [facility] Attending Clinician Un available ELENA LOPEZ Attending Clinician Unavailable Fletcher Ramesh MD Attending Clinician + [phone] Frank WISE, Ethel Attending Clinician Erica vailable Alvin Nobles Attending Clinician [phone] Katarina Admitting Clinician Unavailable NACHO NGUYEN Admitting Clinician Unavailable YAW BRO Admitting Clinician Unavailable Payers Payer Name Policy Type Policy Number Effective Date Expirati on Date Source MANAGED MEDICAID GENERIC NON-CONTRACT [id number] 2023 00:00:00 [place] [id number] 2019 00:00:00 2020 00:00:00 [place] [id number] ON LICENSE OF [facility] [id number] 2020 00:00:00 [facility] [id number] 2019 00:00:00 Problems Condition Name Condition Details Condition Category Status Onset Date Resolution Date Last Treatment Date Treating Clinician Comments Source History of miscarriag e History of miscarriag e Disease Active 4-04 00:00: 00 [facility] Nausea/vom iting in Nausea/vom iting in Disease Active 4-04 00:00: 00 [facility] Chlamydia trachomati s infection of lower genitourin jeremy sites Chlamydia trachomati s infection of lower genitourin jeremy sites Disease Active 2-13 00:00: 00 [facility] Need for prophylact ic vaccinatio n and inoculatio n against influenza Need for prophylact ic vaccinatio n and inoculatio n against influenza Disease Active 3-24 00:00: 00 [facility] Feeling sad Feeling sad Disease Active 5- 00:00: 00 [facility] Encounter for other general counseling or advice on contracept ion Encounter for other general counseling or advice on contracept ion Disease Active 5-07 00:00: 00 [facility] Absence of menstruati on Absence of menstruati on Disease Active 3-24 00:00: 00 [facility] Breast tenderness in female Breast tenderness in female Disease Active 3-24 00:00: 00 [facility] Class 1 obesity due to excess calories with serious comorbidit y and body mass index (BMI) of 34.0 to 34.9 in adult Class 1 obesity due to excess calories with serious comorbidit y and body mass index (BMI) of 34.0 to 34.9 in adult Disease Active 3-24 00:00: [address] [facility] [place] [place] BMI 34.0-34.9, adult BMI 34.0-34.9, adult Disease Active 11-02 00:00: 00 [facility] Elevated blood pressure reading without diagnosis of hypertensi on Elevated blood pressure reading without diagnosis of hypertensi on Disease Active 10-02 00:00: 00 [facility] Depression during Depression during Disease Active 08-20 00:00: 00 Overview: Formattin g of this note might be different from the original. Reports stopped meds 10/15/23 reports stable mood [facility] Other depression Other depression Disease Active 08-20 00:00: 00 [facility] Nexplanon removal Nexplanon removal Disease Active 08-20 00:00: 00 [facility] Screening examinatio n for STD (sexually transmitte d disease) Screening examinatio n for STD (sexually transmitte d disease) Disease Active 08-20 00:00: 00 [facility] BMI 27.0-27.9, adult BMI 27.0-27.9, adult Disease Active 2018-08 0 00:00: 00 [facility] BMI 29.0-29.9, adult BMI 29.0-29.9, adult Disease Active 2018-08 00:00: 00 [facility] HPV vaccine counseling HPV vaccine counseling Disease Active 2018-08 0 00:00: 00 [facility] Over weight Over weight Disease Active 2018-08 0 00:00: 00 [facility] Lump or mass in breast Lump or mass in breast Disease Active - 00:00: 00 [facility] Allergies, Adverse Reactions, Alerts Allergy Name Allergy Type Status Severity Reaction(s) Onset Date Inactive Date Treating Clinician Comments Source NO KNOWN ALLERGIE S Drug Class Active [facility] Social History Social Habit Start Date Stop Date Quantity Comments Source ASSERTION 2023-10-02 00:00:00 [facility] Gender identity [facility] [place] [place] Alcohol intake 2023-11-14 00:00:00 2023-11-14 00:00:00 Current drinker of alcohol (finding) [facility] History of Social function 2023-02-14 00:00:00 2023-02-14 00:00:00 [facility] Exposure to SARS-CoV-2 (event) 2022-12-24 00:00:00 2023-01-03 09:29:00 Not sure [facility] History SDOH Alcohol Frequency 2023-01-01 00:00:00 2023-01-01 00:00:00 1 [facility] History SDOH Alcohol Std Drinks 2023-01-01 00:00:00 2023-01-01 00:00:00 0 [facility] History SDOH Alcohol Binge 2023-01-01 00:00:00 2023-01-01 00:00:00 1 [facility] History SDOH Social Connections Phone 2023-01-01 00:00:00 2023-01-01 00:00:00 4 [facility] History SDOH Social Connections Get Together 2023-01-01 00:00:00 2023-01-01 00:00:00 2 [facility] History SDOH Social Connections Rastafarian 2023-01-01 00:00:00 2023-01-01 00:00:00 3 [facility] SDOH Social Connections Membership 2023-01-01 00:00:00 2023-01-01 00:00:00 2 [facility] History SDOH Social Connections Meetings 2023-01-01 00:00:00 2023-01-01 00:00:00 1 [facility] History SDOH Social Connections Living 2023-01-01 00:00:00 2023-01-01 00:00:00 7 [facility] History SDOH Physical Activity DPW 2023-01-01 00:00:00 2023-01-01 00:00:00 1 [facility] History SDOH Physical Activity MPS 2023-01-01 00:00:00 2023-01-01 00:00:00 3 [facility] History SDOH Stress 2023-01-01 00:00:00 2023-01-01 00:00:00 5 [facility] History SDOH Financial 2023-01-01 00:00:00 2023-01-01 00:00:00 4 [facility] History SDOH Food Worry 2023-01-01 00:00:00 2023-01-01 00:00:00 1 [facility] History SDOH Food Scarcity 2023-01-01 00:00:00 2023-01-01 00:00:00 2 [facility] History SDOH Transport Med 2023-01-01 00:00:00 2023-01-01 00:00:00 2 [facility] History SDOH Transport Non-Med 2023-01-01 00:00:00 2023-01-01 00:00:00 2 [facility] History SDOH Housing Unable to Pay 2023-01-01 00:00:00 2023-01-01 00:00:00 2 [facility] History SDOH Housing Places Lived 2023-01-01 00:00:00 2023-01-01 00:00:00 1 [facility] History SDOH Housing Homeless Last Year 2023-01-01 00:00:00 2023-01-01 00:00:00 2 [facility] Tobacco use and exposure 2022-12-27 00:00:00 2022-12-27 00:00:00 Smokeless tobacco non-user [facility] Alcohol Comment 2021-11-02 00:00:00 2021-11-02 00:00:00 social [facility] Sex Assigned At 2000 00:00:00 2000 00:00:00 [facility] Smoking Status Start Date Stop Date Source Never smoked tobacco [facility] Medications Ordered Medication Name Filled Medication Name Start Date Stop Date Current Medication? Ordering Clinician Indication Dosage Frequency Signature (SIG) Comments Components Source proMETHazin e 25 mg tablet 11-13 00:00: 00 Yes [id number] 25mg Take 1 tablet by mouth every 6 (six) hours as needed for Nausea and Vomiting (N/V). [facility] PNV 67-iron ps-folate no.1-dha (VITAFOL ULTRA) 29 mg iron- 1 mg-200 mg Cap 11-13 00:00: 00 Yes [id number] 1{each} Take 1 Each by mouth in the morning. [facility] KCL (KLOR-CON M20) tablet 20 mEq 11-11 04:45: 00 11-11 04:46 :00 No 20meq 20 mEq, Oral, ONCE, 1 dose, On Sat11/11/23 at 2345, PABLO [facility] NaCl 0.9% (NS) IV infusion 1,000 mL 11-11 04:15: 00 Yes 1000mL at 999 mL/hr, Intravenou s, CONTINUOUS , Starting on Sat11/11/23 at 2315, Until Discontinu ed, Routine [facility] ondansetron (ZOFRAN (PF)) injection 4 mg 11-11 03:15: 00 11-11 03:20 :00 No 4mg 4 mg, Slow IV Push, ONCE, 1 dose, On Sat11/11/23 at 2215, PABLO [facility] doxylamine- pyridoxine, vit B6, (DICLEGIS) 10-10 mg per tablet 11-10 00:00: 00 Yes [id number] 2{tbl} Take 2 tablets by mouth at bedtime as needed for Nausea and Vomiting (N/V). [facility] ondansetron 4 mg tablet - 00:00: 00 Yes [id number] 4mg Take 1 tablet by mouth every 8 (eight) hours as needed for Nausea and Vomiting (N/V). [facility] omeprazole 40 mg capsule 9-07 00:00: 00 Yes [id number] 40mg Take 1 capsule by mouth in the morning. [facility] ondansetron 8 mg tablet 8-24 00:00: 00 Yes [id number] 8mg Take 1 tablet by mouth every 8 (eight) hours as needed for Nausea and Vomiting (N/V). [facility] omeprazole 40 mg capsule 8-21 00:00: 00 04-18 00:00 :00 No [id number] 40mg Take 1 capsule by mouth in the morning. [facility] VENLAFAXINE XR 37.5 mg 24 hr capsule 8-02 00:00: 00 Yes [id number] 37.5mg TAKE 1 CAPSULE BY MOUTH DAILY WITH BREAKFAST. [facility] venlafaxine XR 37.5 mg 24 hr capsule 7-06 00:00: 00 03-13 00:00 :00 No [id number] 37.5mg Take 1 capsule by mouth daily with breakfast. [facility] SERTraline 25 mg tablet 5-25 00:00: 00 02-14 00:00 :00 No [id number] 25mg Take 1 tablet by mouth in the morning. [facility] naproxen (NAPROSYN) 500 mg tablet 5-25 00:00: 00 01-14 04:59 :00 No [id number] 500mg Take 1 tablet by mouth in the morning and 1 tablet in the evening. Take with meals. Do all this for 10 days. [facility] iopamidol (ISOVUE 370-500 mL) injection 100 mL 12-28 03:00: 00 12-28 03:00 :00 No [id number] 100mL 100 mL, Intravenou s, ONCE, 1 dose, On Sat12/27/22 at 2200, Routine [facility] norelgestro min-ethinyl estradiol (XULANE) 150-35 mcg/24 hr patch 5-11 00:00: 00 01-03 00:00 :00 No [id number] 1{patch } Apply 1 Patch to skin weekly. [facility] doxycycline hyclate 100 mg capsule 0 2-13 00:00: 00 10-02 05:59 :00 No [id number] 100mg Take 1 capsule by mouth every 12 (twelve) hours for 7 days. [facility] norelgestro min-ethinyl estradiol 150-35 mcg/24 hr patch 0 2-10 00:00: 00 04-01 00:00 :00 No [id number] 1{patch } Apply 1 Patch to skin weekly. [facility] norgestimat e-ethinyl estradioL 0.18/0.215/ 0.25 mg-25 mcg tablet - 00:00: 00 09-21 00:00 :00 No [id number] 1{tbl} Take 1 tablet by mouth daily. [facility] norgestimat e-ethinyl estradioL 0.18/0.215/ 0.25 mg-25 mcg tablet - 00:00: 00 02-15 00:00 :00 No [id number] 1{tbl} Take 1 tablet by mouth daily. [facility] albuterol 90 mcg/actuati on inhaler 10-16 00:00: 00 01-03 00:00 :00 No [id number] 6{puff} Inhale 6 Puffs every 4 (four) hours as needed for Wheezing or Shortness of Breath. [facility] benzonatate 100 mg capsule 10-16 00:00: 00 09-21 00:00 :00 No [id number] 100mg Take 1 capsule by mouth 3 (three) times daily as needed for Cough. [facility] Immunizations Ordered Immunization Name Filled Immunization Name Date Status Comments Source Influenza Virus Vaccine Quad .5 mL IM 6+ MO 2021-11-02 00:00:00 Completed [facility] Influenza Virus Vaccine Quad .5 mL IM 6+ MO 2021-11-02 00:00:00 Completed [facility] Influenza Virus Vaccine Quad .5 mL IM 6+ MO 2021-11-02 00:00:00 Completed [facility] Influenza Virus Vaccine Quad .5 mL IM 6+ MO 2021-11-02 00:00:00 Completed [facility] Influenza Virus Vaccine Quad .5 mL IM 6+ MO 2021-11-02 00:00:00 Completed [facility] Influenza Virus Vaccine Quad .5 mL IM 6+ MO 2021-11-02 00:00:00 Completed [facility] Influenza Virus Vaccine Quad .5 mL IM 6+ MO 2021-11-02 00:00:00 Completed [facility] Influenza Virus Vaccine Quad .5 mL IM 6+ MO 2021-11-02 00:00:00 Completed [facility] Influenza Virus Vaccine Quad .5 mL IM 6+ MO 2021-11-02 00:00:00 Completed [facility] Influenza Virus Vaccine Quad .5 mL IM 6+ MO 2021-11-02 00:00:00 Completed [facility] Influenza Virus Vaccine Quad .5 mL IM 6+ MO 2021-11-02 00:00:00 Completed [facility] Influenza Virus Vaccine Quad .5 mL IM 6+ MO 2021-11-02 00:00:00 Completed [facility] Influenza Virus Vaccine Quad .5 mL IM 6+ MO 2021-11-02 00:00:00 Completed [facility] Influenza Virus Vaccine Quad .5 mL IM 6+ MO 2021-11-02 00:00:00 Completed [facility] Influenza Virus Vaccine Quad .5 mL IM 6+ MO 2021-11-02 00:00:00 Completed [facility] Influenza Virus Vaccine Quad .5 mL IM 6+ MO 2021-11-02 00:00:00 Completed [facility] Influenza Virus Vaccine Quad .5 mL IM 6+ MO 2021-11-02 00:00:00 Completed [facility] Influenza Virus Vaccine Quad .5 mL IM 6+ MO 2021-11-02 00:00:00 Completed [facility] Influenza Virus Vaccine Quad .5 mL IM 6+ MO 2021-11-02 00:00:00 Completed [facility] Influenza Virus Vaccine Quad .5 mL IM 6+ MO 2021-11-02 00:00:00 Completed [facility] Influenza Virus Vaccine Quad .5 mL IM 6+ MO 2021-11-02 00:00:00 Completed [facility] Influenza Virus Vaccine Quad .5 mL IM 6+ MO 2021-11-02 00:00:00 Completed [facility] Influenza Virus Vaccine Quad .5 mL IM 6+ MO 2021-11-02 00:00:00 Completed [facility] Influenza Virus Vaccine Quad .5 mL IM 6+ MO 2021-11-02 00:00:00 Completed [facility] Influenza Virus Vaccine Quad .5 mL IM 6+ MO 2021-11-02 00:00:00 Completed [facility] Influenza Virus Vaccine Quad .5 mL IM 6+ MO 2021-11-02 00:00:00 Completed [facility] Influenza Virus Vaccine Quad .5 mL IM 6+ MO (FLUZONE/FLULAVAL/F LUARIX) 2021-11-02 00:00:00 Completed [facility] Influenza Virus Vaccine Quad .5 mL IM 6+ MO (FLUZONE/FLULAVAL/F LUARIX) 2021-11-02 00:00:00 Completed [facility] Influenza Virus Vaccine Quad .5 mL IM 6+ MO (FLUZONE/FLULAVAL/F LUARIX) 2021-11-02 00:00:00 Completed [facility] SARS-COV-2 COVID-19 PFIZER VACCINE 2021-03-27 00:00:00 Completed [facility] SARS-COV-2 COVID-19 PFIZER VACCINE 2021-03-27 00:00:00 Completed [facility] SARS-COV-2 COVID-19 PFIZER VACCINE 2021-03-27 00:00:00 Completed [facility] SARS-COV-2 COVID-19 PFIZER VACCINE 2021-03-27 00:00:00 Completed [facility] SARS-COV-2 COVID-19 PFIZER VACCINE 2021-03-27 00:00:00 Completed [facility] SARS-COV-2 COVID-19 PFIZER VACCINE 2021-03-27 00:00:00 Completed [facility] SARS-COV-2 COVID-19 PFIZER VACCINE 2021-03-27 00:00:00 Completed [facility] SARS-COV-2 COVID-19 PFIZER VACCINE 2021-03-27 00:00:00 Completed [facility] SARS-COV-2 COVID-19 PFIZER VACCINE 2021-03-27 00:00:00 Completed [facility] SARS-COV-2 COVID-19 PFIZER VACCINE 2021-03-27 00:00:00 Completed [facility] SARS-COV-2 COVID-19 PFIZER VACCINE 2021-03-27 00:00:00 Completed [facility] SARS-COV-2 COVID-19 PFIZER VACCINE 2021-03-27 00:00:00 Completed [facility] SARS-COV-2 COVID-19 PFIZER VACCINE 2021-03-27 00:00:00 Completed [facility] SARS-COV-2 COVID-19 PFIZER VACCINE 2021-03-27 00:00:00 Completed [facility] SARS-COV-2 COVID-19 PFIZER VACCINE 2021-03-27 00:00:00 Completed [facility] SARS-COV-2 COVID-19 PFIZER VACCINE 2021-03-27 00:00:00 Completed [facility] SARS-COV-2 COVID-19 PFIZER VACCINE 2021-03-27 00:00:00 Completed [facility] SARS-COV-2 COVID-19 PFIZER VACCINE 2021-03-27 00:00:00 Completed [facility] SARS-COV-2 COVID-19 PFIZER VACCINE 2021-03-27 00:00:00 Completed [facility] SARS-COV-2 COVID-19 PFIZER VACCINE 2021-03-27 00:00:00 Completed [facility] SARS-COV-2 COVID-19 PFIZER VACCINE 2021-03-27 00:00:00 Completed [facility] SARS-COV-2 COVID-19 PFIZER VACCINE 2021-03-27 00:00:00 Completed [facility] SARS-COV-2 COVID-19 PFIZER VACCINE 2021-03-27 00:00:00 Completed [facility] SARS-COV-2 COVID-19 PFIZER VACCINE 2021-03-27 00:00:00 Completed [facility] SARS-COV-2 COVID-19 PFIZER VACCINE 2021-03-27 00:00:00 Completed [facility] SARS-COV-2 COVID-19 PFIZER VACCINE 2021-03-27 00:00:00 Completed [facility] SARS-COV-2 COVID-19 PFIZER VACCINE 2021-03-27 00:00:00 Completed [facility] SARS-COV-2 COVID-19 PFIZER VACCINE 2021-03-27 00:00:00 Completed [facility] SARS-COV-2 COVID-19 PFIZER VACCINE 2021-03-27 00:00:00 Completed [facility] SARS-COV-2 COVID-19 PFIZER VACCINE 2021-03-06 00:00:00 Completed [facility] SARS-COV-2 COVID-19 PFIZER VACCINE 2021-03-06 00:00:00 Completed [facility] SARS-COV-2 COVID-19 PFIZER VACCINE 2021-03-06 00:00:00 Completed [facility] SARS-COV-2 COVID-19 PFIZER VACCINE 2021-03-06 00:00:00 Completed [facility] SARS-COV-2 COVID-19 PFIZER VACCINE 2021-03-06 00:00:00 Completed [facility] SARS-COV-2 COVID-19 PFIZER VACCINE 2021-03-06 00:00:00 Completed [facility] SARS-COV-2 COVID-19 PFIZER VACCINE 2021-03-06 00:00:00 Completed [facility] SARS-COV-2 COVID-19 PFIZER VACCINE 2021-03-06 00:00:00 Completed [facility] SARS-COV-2 COVID-19 PFIZER VACCINE 2021-03-06 00:00:00 Completed [facility] SARS-COV-2 COVID-19 PFIZER VACCINE 2021-03-06 00:00:00 Completed [facility] SARS-COV-2 COVID-19 PFIZER VACCINE 2021-03-06 00:00:00 Completed [facility] SARS-COV-2 COVID-19 PFIZER VACCINE 2021-03-06 00:00:00 Completed [facility] SARS-COV-2 COVID-19 PFIZER VACCINE 2021-03-06 00:00:00 Completed [facility] SARS-COV-2 COVID-19 PFIZER VACCINE 2021-03-06 00:00:00 Completed [facility] SARS-COV-2 COVID-19 PFIZER VACCINE 2021-03-06 00:00:00 Completed [facility] SARS-COV-2 COVID-19 PFIZER VACCINE 2021-03-06 00:00:00 Completed [facility] SARS-COV-2 COVID-19 PFIZER VACCINE 2021-03-06 00:00:00 Completed [facility] SARS-COV-2 COVID-19 PFIZER VACCINE 2021-03-06 00:00:00 Completed [facility] SARS-COV-2 COVID-19 PFIZER VACCINE 2021-03-06 00:00:00 Completed [facility] SARS-COV-2 COVID-19 PFIZER VACCINE 2021-03-06 00:00:00 Completed [facility] SARS-COV-2 COVID-19 PFIZER VACCINE 2021-03-06 00:00:00 Completed [facility] SARS-COV-2 COVID-19 PFIZER VACCINE 2021-03-06 00:00:00 Completed [facility] SARS-COV-2 COVID-19 PFIZER VACCINE 2021-03-06 00:00:00 Completed [facility] SARS-COV-2 COVID-19 PFIZER VACCINE 2021-03-06 00:00:00 Completed [facility] SARS-COV-2 COVID-19 PFIZER VACCINE 2021-03-06 00:00:00 Completed [facility] SARS-COV-2 COVID-19 PFIZER VACCINE 2021-03-06 00:00:00 Completed [facility] SARS-COV-2 COVID-19 PFIZER VACCINE 2021-03-06 00:00:00 Completed [facility] SARS-COV-2 COVID-19 PFIZER VACCINE 2021-03-06 00:00:00 Completed [facility] SARS-COV-2 COVID-19 PFIZER VACCINE 2021-03-06 00:00:00 Completed [facility] HPV9 2019-08-25 00:00:00 Completed [facility] HPV9 2019-08-25 00:00:00 Completed [facility] HPV9 2019-08-25 00:00:00 Completed [facility] HPV9 2019-08-25 00:00:00 Completed [facility] HPV9 2019-08-25 00:00:00 Completed [facility] HPV9 2019-08-25 00:00:00 Completed [facility] HPV9 2019-08-25 00:00:00 Completed [facility] HPV9 2019-08-25 00:00:00 Completed [facility] HPV9 2019-08-25 00:00:00 Completed [facility] HPV9 2019-08-25 00:00:00 Completed [facility] HPV9 2019-08-25 00:00:00 Completed [facility] HPV9 2019-08-25 00:00:00 Completed [facility] HPV9 2019-08-25 00:00:00 Completed [facility] HPV9 2019-08-25 00:00:00 Completed [facility] HPV9 2019-08-25 00:00:00 Completed [facility] HPV9 2019-08-25 00:00:00 Completed [facility] HPV9 2019-08-25 00:00:00 Completed [facility] HPV9 2019-08-25 00:00:00 Completed [facility] HPV9 2019-08-25 00:00:00 Completed [facility] HPV9 2019-08-25 00:00:00 Completed [facility] HPV9 2019-08-25 00:00:00 Completed [facility] HPV9 2019-08-25 00:00:00 Completed [facility] HPV9 2019-08-25 00:00:00 Completed [facility] HPV9 2019-08-25 00:00:00 Completed [facility] HPV9 2019-08-25 00:00:00 Completed [facility] HPV9 2019-08-25 00:00:00 Completed [facility] HPV9 2019-08-25 00:00:00 Completed [facility] HPV9 2019-08-25 00:00:00 Completed [facility] HPV9 2019-08-25 00:00:00 Completed [facility] HPV9 2019-05-27 00:00:00 Completed [facility] HPV9 2019-05-27 00:00:00 Completed [facility] HPV9 2019-05-27 00:00:00 Completed [facility] HPV9 2019-05-27 00:00:00 Completed [facility] HPV9 2019-05-27 00:00:00 Completed [facility] HPV9 2019-05-27 00:00:00 Completed [facility] HPV9 2019-05-27 00:00:00 Completed [facility] HPV9 2019-05-27 00:00:00 Completed [facility] HPV9 2019-05-27 00:00:00 Completed [facility] HPV9 2019-05-27 00:00:00 Completed [facility] HPV9 2019-05-27 00:00:00 Completed [facility] HPV9 2019-05-27 00:00:00 Completed [facility] HPV9 2019-05-27 00:00:00 Completed [facility] HPV9 2019-05-27 00:00:00 Completed [facility] HPV9 2019-05-27 00:00:00 Completed [facility] HPV9 2019-05-27 00:00:00 Completed [facility] HPV9 2019-05-27 00:00:00 Completed [facility] HPV9 2019-05-27 00:00:00 Completed [facility] HPV9 2019-05-27 00:00:00 Completed [facility] HPV9 2019-05-27 00:00:00 Completed [facility] HPV9 2019-05-27 00:00:00 Completed [facility] HPV9 2019-05-27 00:00:00 Completed [facility] HPV9 2019-05-27 00:00:00 Completed [facility] HPV9 2019-05-27 00:00:00 Completed [facility] HPV9 2019-05-27 00:00:00 Completed [facility] HPV9 2019-05-27 00:00:00 Completed [facility] HPV9 2019-05-27 00:00:00 Completed [facility] HPV9 2019-05-27 00:00:00 Completed [facility] HPV9 2019-05-27 00:00:00 Completed [facility] TDAP (ADACEL) VACCINE 2014-06-24 00:00:00 Completed [facility] Meningococcal Vaccine 2014-06-24 00:00:00 Completed [facility] TDAP (ADACEL) VACCINE 2014-06-24 00:00:00 Completed [facility] Meningococcal Vaccine 2014-06-24 00:00:00 Completed [facility] TDAP (ADACEL) VACCINE 2014-06-24 00:00:00 Completed [facility] Meningococcal Vaccine 2014-06-24 00:00:00 Completed [facility] TDAP (ADACEL) VACCINE 2014-06-24 00:00:00 Completed [facility] Meningococcal Vaccine 2014-06-24 00:00:00 Completed [facility] TDAP (ADACEL) VACCINE 2014-06-24 00:00:00 Completed [facility] Meningococcal Vaccine 2014-06-24 00:00:00 Completed [facility] TDAP (ADACEL) VACCINE 2014-06-24 00:00:00 Completed [facility] Meningococcal Vaccine 2014-06-24 00:00:00 Completed [facility] TDAP (ADACEL) VACCINE 2014-06-24 00:00:00 Completed [facility] Meningococcal Vaccine 2014-06-24 00:00:00 Completed [facility] TDAP (ADACEL) VACCINE 2014-06-24 00:00:00 Completed [facility] Meningococcal Vaccine 2014-06-24 00:00:00 Completed [facility] TDAP (ADACEL) VACCINE 2014-06-24 00:00:00 Completed [facility] Meningococcal Vaccine 2014-06-24 00:00:00 Completed [facility] TDAP (ADACEL) VACCINE 2014-06-24 00:00:00 Completed [facility] Meningococcal Vaccine 2014-06-24 00:00:00 Completed [facility] TDAP (ADACEL) VACCINE 2014-06-24 00:00:00 Completed [facility] Meningococcal Vaccine 2014-06-24 00:00:00 Completed [facility] TDAP (ADACEL) VACCINE 2014-06-24 00:00:00 Completed [facility] Meningococcal Vaccine 2014-06-24 00:00:00 Completed [facility] TDAP (ADACEL) VACCINE 2014-06-24 00:00:00 Completed [facility] Meningococcal Vaccine 2014-06-24 00:00:00 Completed [facility] TDAP (ADACEL) VACCINE 2014-06-24 00:00:00 Completed [facility] Meningococcal Vaccine 2014-06-24 00:00:00 Completed [facility] TDAP (ADACEL) VACCINE 2014-06-24 00:00:00 Completed [facility] Meningococcal Vaccine 2014-06-24 00:00:00 Completed [facility] TDAP (ADACEL) VACCINE 2014-06-24 00:00:00 Completed [facility] Meningococcal Vaccine 2014-06-24 00:00:00 Completed [facility] TDAP (ADACEL) VACCINE 2014-06-24 00:00:00 Completed [facility] Meningococcal Vaccine 2014-06-24 00:00:00 Completed [facility] TDAP (ADACEL) VACCINE 2014-06-24 00:00:00 Completed [facility] Meningococcal Vaccine 2014-06-24 00:00:00 Completed [facility] TDAP (ADACEL) VACCINE 2014-06-24 00:00:00 Completed [facility] Meningococcal Vaccine 2014-06-24 00:00:00 Completed [facility] TDAP (ADACEL) VACCINE 2014-06-24 00:00:00 Completed [facility] Meningococcal Vaccine 2014-06-24 00:00:00 Completed [facility] TDAP (ADACEL) VACCINE 2014-06-24 00:00:00 Completed [facility] Meningococcal Vaccine 2014-06-24 00:00:00 Completed [facility] TDAP (ADACEL) VACCINE 2014-06-24 00:00:00 Completed [facility] Meningococcal Vaccine 2014-06-24 00:00:00 Completed [facility] TDAP (ADACEL) VACCINE 2014-06-24 00:00:00 Completed [facility] Meningococcal Vaccine 2014-06-24 00:00:00 Completed [facility] TDAP (ADACEL) VACCINE 2014-06-24 00:00:00 Completed [facility] Meningococcal Vaccine 2014-06-24 00:00:00 Completed [facility] TDAP (ADACEL) VACCINE 2014-06-24 00:00:00 Completed [facility] Meningococcal Vaccine 2014-06-24 00:00:00 Completed [facility] TDAP (ADACEL) VACCINE 2014-06-24 00:00:00 Completed [facility] Meningococcal Vaccine 2014-06-24 00:00:00 Completed [facility] TDAP (ADACEL) VACCINE 2014-06-24 00:00:00 Completed [facility] Meningococcal Vaccine 2014-06-24 00:00:00 Completed [facility] TDAP (ADACEL) VACCINE 2014-06-24 00:00:00 Completed [facility] Meningococcal Vaccine 2014-06-24 00:00:00 Completed [facility] TDAP (ADACEL) VACCINE 2014-06-24 00:00:00 Completed [facility] Meningococcal Vaccine 2014-06-24 00:00:00 Completed [facility] TDAP (ADACEL) VACCINE 2013-03-12 00:00:00 Completed [facility] TDAP (ADACEL) VACCINE 2013-03-12 00:00:00 Completed [facility] TDAP (ADACEL) VACCINE 2013-03-12 00:00:00 Completed [facility] TDAP (ADACEL) VACCINE 2013-03-12 00:00:00 Completed [facility] TDAP (ADACEL) VACCINE 2013-03-12 00:00:00 Completed [facility] TDAP (ADACEL) VACCINE 2013-03-12 00:00:00 Completed [facility] TDAP (ADACEL) VACCINE 2013-03-12 00:00:00 Completed [facility] TDAP (ADACEL) VACCINE 2013-03-12 00:00:00 Completed [facility] TDAP (ADACEL) VACCINE 2013-03-12 00:00:00 Completed [facility] TDAP (ADACEL) VACCINE 2013-03-12 00:00:00 Completed [facility] TDAP (ADACEL) VACCINE 2013-03-12 00:00:00 Completed [facility] TDAP (ADACEL) VACCINE 2013-03-12 00:00:00 Completed [facility] TDAP (ADACEL) VACCINE 2013-03-12 00:00:00 Completed [facility] TDAP (ADACEL) VACCINE 2013-03-12 00:00:00 Completed [facility] TDAP (ADACEL) VACCINE 2013-03-12 00:00:00 Completed [facility] TDAP (ADACEL) VACCINE 2013-03-12 00:00:00 Completed [facility] TDAP (ADACEL) VACCINE 2013-03-12 00:00:00 Completed [facility] TDAP (ADACEL) VACCINE 2013-03-12 00:00:00 Completed [facility] TDAP (ADACEL) VACCINE 2013-03-12 00:00:00 Completed [facility] TDAP (ADACEL) VACCINE 2013-03-12 00:00:00 Completed [facility] TDAP (ADACEL) VACCINE 2013-03-12 00:00:00 Completed [facility] TDAP (ADACEL) VACCINE 2013-03-12 00:00:00 Completed [facility] TDAP (ADACEL) VACCINE 2013-03-12 00:00:00 Completed [facility] TDAP (ADACEL) VACCINE 2013-03-12 00:00:00 Completed [facility] TDAP (ADACEL) VACCINE 2013-03-12 00:00:00 Completed [facility] TDAP (ADACEL) VACCINE 2013-03-12 00:00:00 Completed [facility] TDAP (ADACEL) VACCINE 2013-03-12 00:00:00 Completed [facility] TDAP (ADACEL) VACCINE 2013-03-12 00:00:00 Completed [facility] TDAP (ADACEL) VACCINE 2013-03-12 00:00:00 Completed [facility] HPV9 Unknown Completed [facility] TDAP (ADACEL) VACCINE Unknown Completed [facility] Meningococcal Vaccine Unknown Completed [facility] HPV9 Unknown Completed [facility] SARS-COV-2 COVID-19 PFIZER VACCINE Unknown Completed [facility] SARS-COV-2 COVID-19 PFIZER VACCINE Unknown Completed [facility] Influenza Virus Vaccine Quad .5 mL IM 6+ MO (FLUZONE/FLULAVAL/F LUARIX) Unknown Completed [facility] TDAP (ADACEL) VACCINE Unknown Completed [facility] HPV9 Unknown Completed [facility] TDAP (ADACEL) VACCINE Unknown Completed [facility] Meningococcal Vaccine Unknown Completed [facility] HPV9 Unknown Completed [facility] SARS-COV-2 COVID-19 PFIZER VACCINE Unknown Completed [facility] SARS-COV-2 COVID-19 PFIZER VACCINE Unknown Completed [facility] Influenza Virus Vaccine Quad .5 mL IM 6+ MO (FLUZONE/FLULAVAL/F LUARIX) Unknown Completed [facility] TDAP (ADACEL) VACCINE Unknown Completed [facility] HPV9 Unknown Completed [facility] TDAP (ADACEL) VACCINE Unknown Completed [facility] Meningococcal Vaccine Unknown Completed [facility] HPV9 Unknown Completed [facility] SARS-COV-2 COVID-19 PFIZER VACCINE Unknown Completed [facility] SARS-COV-2 COVID-19 PFIZER VACCINE Unknown Completed [facility] Influenza Virus Vaccine Quad .5 mL IM 6+ MO (FLUZONE/FLULAVAL/F LUARIX) Unknown Completed [facility] TDAP (ADACEL) VACCINE Unknown Completed [facility] HPV9 Unknown Completed [facility] TDAP (ADACEL) VACCINE Unknown Completed [facility] Meningococcal Vaccine Unknown Completed [facility] HPV9 Unknown Completed [facility] SARS-COV-2 COVID-19 PFIZER VACCINE Unknown Completed [facility] SARS-COV-2 COVID-19 PFIZER VACCINE Unknown Completed [facility] Influenza Virus Vaccine Quad .5 mL IM 6+ MO (FLUZONE/FLULAVAL/F LUARIX) Unknown Completed [facility] TDAP (ADACEL) VACCINE Unknown Completed [facility] HPV9 Unknown Completed [facility] TDAP (ADACEL) VACCINE Unknown Completed [facility] Meningococcal Vaccine Unknown Completed [facility] HPV9 Unknown Completed [facility] SARS-COV-2 COVID-19 PFIZER VACCINE Unknown Completed [facility] SARS-COV-2 COVID-19 PFIZER VACCINE Unknown Completed [facility] Influenza Virus Vaccine Quad .5 mL IM 6+ MO (FLUZONE/FLULAVAL/F LUARIX) Unknown Completed [facility] TDAP (ADACEL) VACCINE Unknown Completed [facility] HPV9 Unknown Completed [facility] TDAP (ADACEL) VACCINE Unknown Completed [facility] Meningococcal Vaccine Unknown Completed [facility] HPV9 Unknown Completed [facility] TDAP (ADACEL) VACCINE Unknown Completed [facility] HPV9 Unknown Completed [facility] TDAP (ADACEL) VACCINE Unknown Completed [facility] Meningococcal Vaccine Unknown Completed [facility] HPV9 Unknown Completed [facility] SARS-COV-2 COVID-19 PFIZER VACCINE Unknown Completed [facility] SARS-COV-2 COVID-19 PFIZER VACCINE Unknown Completed [facility] Influenza Virus Vaccine Quad .5 mL IM 6+ MO (FLUZONE/FLULAVAL/F LUARIX) Unknown Completed [facility] TDAP (ADACEL) VACCINE Unknown Completed [facility] HPV9 Unknown Completed [facility] TDAP (ADACEL) VACCINE Unknown Completed [facility] Meningococcal Vaccine Unknown Completed [facility] HPV9 Unknown Completed [facility] SARS-COV-2 COVID-19 PFIZER VACCINE Unknown Completed [facility] SARS-COV-2 COVID-19 PFIZER VACCINE Unknown Completed [facility] Influenza Virus Vaccine Quad .5 mL IM 6+ MO (FLUZONE/FLULAVAL/F LUARIX) Unknown Completed [facility] TDAP (ADACEL) VACCINE Unknown Completed [facility] HPV9 Unknown Completed [facility] TDAP (ADACEL) VACCINE Unknown Completed [facility] Meningococcal Vaccine Unknown Completed [facility] HPV9 Unknown Completed [facility] SARS-COV-2 COVID-19 PFIZER VACCINE Unknown Completed [facility] SARS-COV-2 COVID-19 PFIZER VACCINE Unknown Completed [facility] Influenza Virus Vaccine Quad .5 mL IM 6+ MO (FLUZONE/FLULAVAL/F LUARIX) Unknown Completed [facility] TDAP (ADACEL) VACCINE Unknown Completed [facility] HPV9 Unknown Completed [facility] TDAP (ADACEL) VACCINE Unknown Completed [facility] Meningococcal Vaccine Unknown Completed [facility] HPV9 Unknown Completed [facility] SARS-COV-2 COVID-19 PFIZER VACCINE Unknown Completed [facility] SARS-COV-2 COVID-19 PFIZER VACCINE Unknown Completed [facility] Influenza Virus Vaccine Quad .5 mL IM 6+ MO (FLUZONE/FLULAVAL/F LUARIX) Unknown Completed [facility] TDAP (ADACEL) VACCINE Unknown Completed [facility] HPV9 Unknown Completed [facility] TDAP (ADACEL) VACCINE Unknown Completed [facility] Meningococcal Vaccine Unknown Completed [facility] HPV9 Unknown Completed [facility] SARS-COV-2 COVID-19 PFIZER VACCINE Unknown Completed [facility] SARS-COV-2 COVID-19 PFIZER VACCINE Unknown Completed [facility] Influenza Virus Vaccine Quad .5 mL IM 6+ MO (FLUZONE/FLULAVAL/F LUARIX) Unknown Completed [facility] TDAP (ADACEL) VACCINE Unknown Completed [facility] HPV9 Unknown Completed [facility] TDAP (ADACEL) VACCINE Unknown Completed [facility] Meningococcal Vaccine Unknown Completed [facility] HPV9 Unknown Completed [facility] SARS-COV-2 COVID-19 PFIZER VACCINE Unknown Completed [facility] SARS-COV-2 COVID-19 PFIZER VACCINE Unknown Completed [facility] Influenza Virus Vaccine Quad .5 mL IM 6+ MO (FLUZONE/FLULAVAL/F LUARIX) Unknown Completed [facility] TDAP (ADACEL) VACCINE Unknown Completed [facility] Vital Signs Vital Name Observation Time Observation Value Comments S ource Systolic blood pressure 2023-11-14 14:36:00 127 mm[Hg] [facility] Diastolic blood pressure 2023-11-14 14:36:00 82 mm[Hg] [facility] Heart rate 2023-11-14 14:36:00 91 /min [facility] Body temperature 2023-11-14 14:36:00 36.89 [place] [facility] Respiratory rate 2023-11-14 14:36:00 18 /min [facility] Body height 2023-11-14 14:36:00 162.6 cm [facility] Body weight 2023-11-14 14:36:00 60.782 kg [facility] BMI 2023-11-14 14:36:00 23.00 kg/m2 [facility] Systolic blood pressure 2023-11-12 04:00:00 127 mm[Hg] [facility] Diastolic blood pressure 2023-11-12 04:00:00 55 mm[Hg] [facility] Heart rate 2023-11-12 04:00:00 69 /min [facility] Body temperature 2023-11-12 04:00:00 37.22 [place] [facility] Respiratory rate 2023-11-12 04:00:00 16 /min [facility] Oxygen saturation in Arterial blood by Pulse oximetry 2023-11-12 04:00:00 100 /min [facility] Body height 2023-11-12 02:44:00 162.6 cm [facility] Body weight 2023-11-12 02:44:00 58.968 kg [facility] BMI 2023-11-12 02:44:00 22.31 kg/m2 [facility] Systolic blood pressure 2023-10-24 16:38:00 140 mm[Hg] [facility] Diastolic blood pressure 2023-10-24 16:38:00 88 mm[Hg] [facility] Heart rate 2023-10-24 16:38:00 78 /min [facility] Body temperature 2023-10-24 16:38:00 37.33 [place] [facility] Respiratory rate 2023-10-24 16:38:00 22 /min [facility] Body height 2023-10-24 16:38:00 162.6 cm [facility] Body weight 2023-10-24 16:38:00 58.968 kg [facility] BMI 2023-10-24 16:38:00 22.31 kg/m2 [facility] Oxygen saturation in Arterial blood by Pulse oximetry 2023-10-24 16:38:00 100 /min [facility] Systolic blood pressure 2023-08-20 20:26:00 136 mm[Hg] [facility] Diastolic blood pressure 2023-08-20 20:26:00 81 mm[Hg] [facility] Heart rate 2023-08-20 20:26:00 68 /min [facility] Body temperature 2023-08-20 20:26:00 36.17 [place] [facility] Respiratory rate 2023-08-20 20:26:00 18 /min [facility] Body height 2023-08-20 20:26:00 165.1 cm [facility] Body weight 2023-08-20 20:26:00 62.642 kg [facility] BMI 2023-08-20 20:26:00 22.98 kg/m2 [facility] Systolic blood pressure 2023-04-24 15:10:00 148 mm[Hg] [facility] Diastolic blood pressure 2023-04-24 15:10:00 99 mm[Hg] [facility] Heart rate 2023-04-24 15:10:00 87 /min [facility] Body temperature 2023-04-24 15:10:00 37.11 [place] [facility] Respiratory rate 2023-04-24 15:10:00 18 /min [facility] Body height 2023-04-24 15:10:00 165.1 cm [facility] Body weight 2023-04-24 15:10:00 62.596 kg [facility] BMI 2023-04-24 15:10:00 22.96 kg/m2 [facility] Oxygen saturation in Arterial blood by Pulse oximetry 2023-04-24 15:10:00 100 /min [facility] Systolic blood pressure 2023-04-18 15:54:00 141 mm[Hg] [facility] Diastolic blood pressure 2023-04-18 15:54:00 73 mm[Hg] [facility] Heart rate 2023-04-18 15:54:00 58 /min [facility] Body temperature 2023-04-18 15:54:00 36.28 [place] [facility] Respiratory rate 2023-04-18 15:54:00 18 /min [facility] Body height 2023-04-18 15:54:00 162.6 cm [facility] Body weight 2023-04-18 15:54:00 62.914 kg [facility] BMI 2023-04-18 15:54:00 23.81 kg/m2 [facility] Systolic blood pressure 2023-04-01 18:05:00 140 mm[Hg] [facility] Diastolic blood pressure 2023-04-01 18:05:00 87 mm[Hg] [facility] Heart rate 2023-04-01 18:02:00 97 /min [facility] Body temperature 2023-04-01 18:02:00 36 [place] [facility] Body height 2023-04-01 18:02:00 165.1 cm [facility] Body weight 2023-04-01 18:02:00 61.236 kg [facility] BMI 2023-04-01 18:02:00 22.47 kg/m2 [facility] Oxygen saturation in Arterial blood by Pulse oximetry 2023-04-01 18:02:00 97 /min [facility] Systolic blood pressure 2023-02-14 15:01:00 126 mm[Hg] [facility] Diastolic blood pressure 2023-02-14 15:01:00 58 mm[Hg] [facility] Heart rate 2023-02-14 15:01:00 70 /min [facility] Body temperature 2023-02-14 15:01:00 36.61 [place] [facility] Respiratory rate 2023-02-14 15:01:00 18 /min [facility] Body height 2023-02-14 15:01:00 165.1 cm [facility] Body weight 2023-02-14 15:01:00 66.815 kg [facility] BMI 2023-02-14 15:01:00 24.51 kg/m2 [facility] Oxygen saturation in Arterial blood by Pulse oximetry 2023-02-14 15:01:00 100 /min [facility] Systolic blood pressure 2023-01-03 14:37:00 130 mm[Hg] [facility] Diastolic blood pressure 2023-01-03 14:37:00 85 mm[Hg] [facility] Heart rate 2023-01-03 14:37:00 66 /min [facility] Body temperature 2023-01-03 14:37:00 36.28 Barby [facility] Body height 2023-01-03 14:37:00 165.1 cm [facility] Body weight 2023-01-03 14:37:00 68.221 kg [facility] BMI 2023-01-03 14:37:00 25.03 kg/m2 [facility] [place] [place] O[facility] saturation in Arterial blood by Pulse oximetry 2023-01-03 14:37:00 98 /min [facility] Systolic blood pressure 2022-12-28 00:30:00 133 mm[Hg] [facility] Diastolic blood pressure 2022-12-28 00:30:00 75 mm[Hg] [facility] Heart rate 2022-12-28 00:30:00 82 /min [facility] Body temperature 2022-12-28 00:30:00 37.22 Barby [facility] Respiratory rate 2022-12-28 00:30:00 16 /min [facility] Body height 2022-12-28 00:30:00 165.1 cm [facility] Body weight 2022-12-28 00:30:00 67.858 kg [facility] BMI 2022-12-28 00:30:00 24.89 kg/m2 [facility] Oxygen saturation in Arterial blood by Pulse oximetry 2022-12-28 00:30:00 100 /min [facility] Systolic blood pressure 2022-12-28 00:06:00 145 mm[Hg] [facility] Diastolic blood pressure 2022-12-28 00:06:00 102 mm[Hg] [facility] Heart rate 2022-12-28 00:06:00 88 /min [facility] Body temperature 2022-12-28 00:06:00 36.39 Barby [facility] Respiratory rate 2022-12-28 00:06:00 17 /min [facility] Body weight 2022-12-28 00:06:00 67.813 kg [facility] BMI 2022-12-28 00:06:00 25.66 kg/m2 [facility] Oxygen saturation in Arterial blood by Pulse oximetry 2022-12-28 00:06:00 98 /min [facility] Systolic blood pressure 2022-12-20 14:41:00 128 mm[Hg] [facility] Diastolic blood pressure 2022-12-20 14:41:00 79 mm[Hg] [facility] Heart rate 2022-12-20 14:41:00 79 /min [facility] Body temperature 2022-12-20 14:41:00 36 Barby [facility] Respiratory rate 2022-12-20 14:41:00 18 /min [facility] Body height 2022-12-20 14:41:00 162.6 cm [facility] Body weight 2022-12-20 14:41:00 69.854 kg [facility] BMI 2022-12-20 14:41:00 26.43 kg/m2 [facility] Systolic blood pressure 2022-09-21 15:50:00 132 mm[Hg] [facility] Diastolic blood pressure 2022-09-21 15:50:00 73 mm[Hg] [facility] Heart rate 2022-09-21 15:45:00 73 /min [facility] Body temperature 2022-09-21 15:45:00 36.72 Barby [facility] Respiratory rate 2022-09-21 15:45:00 19 /min [facility] Body height 2022-09-21 15:45:00 165.1 cm [facility] Body weight 2022-09-21 15:45:00 76.068 kg [facility] BMI 2022-09-21 15:45:00 27.91 kg/m2 [facility] Systolic blood pressure 2022-02-15 13:51:00 127 mm[Hg] [facility] Diastolic blood pressure 2022-02-15 13:51:00 88 mm[Hg] [facility] Heart rate 2022-02-15 13:51:00 71 /min [facility] Body temperature 2022-02-15 13:51:00 36.11 Barby [facility] Respiratory rate 2022-02-15 13:51:00 16 /min [facility] Body height 2022-02-15 13:51:00 165.1 cm [facility] Body weight 2022-02-15 13:51:00 89.313 kg [facility] BMI 2022-02-15 13:51:00 32.77 kg/m2 [facility] Procedures Procedure Date / Time Performed Performing Clinician Source PAP SMEAR-LIQUID BASED-CP 2023-11-14 16:19:00 Leslie Castellanos [facility] GLUCOSE 1 HOUR POST PRANDIAL 2023-11-14 15:53:00 Leslie Castellanos [facility] CBC WITH DIFF 2023-11-14 15:53:00 Leslie Castellanos [facility] HEPATITIS B SURFACE ANTIGEN 2023-11-14 15:53:00 Leslie Castellanos [facility] HB ABO GROUPING 2023-11-14 15:53:00 Leslie Castellanos [facility] HIV 1/2 AG-AB WITH REFLEX 2023-11-14 15:53:00 Leslie Castellanos [facility] POCT URINALYSIS W/O SPECIFIC GRAVITY 2023-11-14 14:37:00 Carla Vaughn [facility] POCT TEST 2023-11-14 14:27:00 Sivan Vaughn [facility] LIPASE 2023-11-12 03:10:00 Arnold Blum [facility] COMP. METABOLIC PANEL ([id number]) 2023-11-12 03:10:00 Arnold Blum [facility] CBC WITH DIFF 2023-11-12 03:10:00 Arnold Blum [facility] URINALYSIS 2023-11-12 03:10:00 Arnold Blum [facility] ABORH CONFIRMATION (LAB ONLY) 2023-10-24 18:54:00 Nacho Nguyen [facility] THYROID STIMULATING HORMONE 2023-10-24 17:55:00 Nacho Nguyen [facility] COMP. METABOLIC PANEL ([id number]) 2023-10-24 17:55:00 Nacho Nguyen [facility] TOTAL BETA HCG ASSAY 2023-10-24 17:55:00 Karan Nguyen [facility] CBC WITH DIFF 2023-10-24 17:55:00 Nacho Nguyen [facility] HB ABO GROUPING 2023-10-24 17:55:00 Nacho Nguyen [facility] CONSENT/REFUSAL FOR DIAGNOSIS AND TREATMENT 2023-10-24 16:28:49 Doctor Unassigned, [place] [facility] POCT TEST 2023-04-24 15:42:00 Berkley Dickson [facility] URINALYSIS 2023-04-24 15:38:00 Rahel Dickson [facility] ASSIGNMENT OF BENEFITS 2023-04-24 15:20:04 Docto r Unassigned, [place] [facility] CONSENT/REFUSAL FOR DIAGNOSIS AND TREATMENT 2023-04-24 15:04:50 Doctor Unassigned, [place] [facility] POCT TEST 2023-04-18 00:00:00 Adriano Bowers [facility] COMP. METABOLIC PANEL ([id number]) 2023-04-01 18:36:00 Eliza Bowers [facility] CBC WITH DIFF 2023-04-01 18:36:00 Eliza Bowers [facility] POCT URINALYSIS 2023-01-03 15:09:00 Eliza Bowers [facility] POCT TEST 2023-01-03 15:09:00 Adriano Bowers [facility] CT ABDOMEN PELVIS W CONTRAST 2022-12-28 02:03:46 Yaw Bro [facility] ASSIGNMENT OF BENEFITS 2022-12-28 01:22:25 Docto r Unassigned, [place] [facility] POCT TEST 2022-12-28 01:05:00 Kasandra Bro [facility] LIPASE 2022-12-28 01:04:00 [facility] THYROID STIMULATING HORMONE 2022-12-28 01:04:00 Yaw Bro [facility] COMP. METABOLIC PANEL ([id number]) 2022-12-28 01:04:00 Yaw Bro [facility] CBC WITH DIFF 2022-12-28 01:04:00 Yaw Bro [facility] URINALYSIS 2022-12-28 01:04:00 Yaw Bro [facility] CONSENT/REFUSAL FOR DIAGNOSIS AND TREATMENT 2022-12-28 00:17:56 Doctor Unassigned, [place] [facility] ASSIGNMENT OF BENEFITS 2022-12-20 14:26:08 Docto r Unassigned, [place] [facility] POCT TEST 2022-09-21 00:00:00 Sivan Vaughn [facility] Encounters Start Date/Time End Date/Time Encounter Type Admission Type Attending [facility] Facility Care Department Encounter ID Source 2021-06-08 19:53:15 Emergency [facility] [id number] [facility] 2023-11-21 08:30:00 2023-11-21 08:30:00 Outpatient R LESLIE CASTELLANOS [facility] [id number] [facility] 2023-11-15 00:00:00 2023-11-15 00:00:00 Telephone Leslie Castellanos [facility] FEEDER [facility] 1.2.840.114 350.1.13.10 4.2.7.2.686 [id number] [facility] 2023-11-14 09:45:00 2023-11-14 11:19:33 Initial Visit Leslie Castellanos Brenda A [facility]NAL [facility] CHILD [facility] 1.2840.114 350.1.13.10 4.2.7.2.686 [id number] [facility] 2023-11-14 09:15:00 2023-11-14 09:46:54 Outpatient R CARLA VAUGHN [facility] [id number] [facility] 2023-11-11 21:41:00 2023-11-11 23:50:00 Emergency X ARNOLD BLUM [facility] ERT [id number] [facility] 2023-11-11 21:41:00 2023-11-11 23:50:00 Emergency Arnold Blum S [facility] 1.2.840.114 350.1.13.10 4.2.7.2.686 [id number] [facility] 2023-11-04 10:36:00 2023-11-04 13:26:00 Emergency X Lawson COCHRAN [facility] ERT [id number] [facility] 2023-11-01 00:00:00 2023-11-01 00:00:00 Telephone Sydney Lubin [facility] 1.0.114 350.1.13.10 4.2.7.2.686 [id number] [facility] 2023-10-31 08:00:00 2023-10-31 08:00:00 Outpatient R [facility] [id number] [facility] 2023-10-30 00:00:00 2023-10-30 00:00:00 Outpatient Raju_P MMG MMG [id number] 2023-10-28 13:45:00 2023-10-28 13:45:00 Outpatient R AKINSILESLIE SANTANA [facility] [id number] [facility] 2023-10-28 13:15:00 2023-10-28 13:15:00 Outpatient R [facility] [id number] [facility] 2023-10-24 11:40:00 2023-10-24 16:53:00 Emergency X WENDY NACHO [facility] ERT [id number] [facility] 2023-10-24 11:40:00 2023-10-24 16:53:00 Emergency Wendy, Nacho [facility] 1.840.114 350.1.13.10 4.2.7.2.686 [id number] [facility] 2023-10-24 00:00:00 2023-10-24 00:00:00 Telephone Pgy3 [facility] 1..114 350.1.13.10 4.2.7.2.686 [id number] [facility] 2023-09-17 00:00:00 2023-09-17 00:00:00 Outpatient R LUBIN, LUCY [facility] [id number] [facility] 2023-09-13 10:00:00 2023-09-13 10:00:00 Outpatient R BRUNA ARRINGTON ASHLEY [facility] [id number] [facility] 2023-09-02 00:00:00 2023-09-02 00:00:00 Outpatient R TRISTIAN SYDNEY [facility] [id number] [facility] 2023-08-23 00:00:00 2023-08-23 00:00:00 Patient Secure Msg Doctor Unassigned, [place] [facility] 1..840.114 350.1.13.10 4.2.7.2.686 [id number] [facility] 2023-08-20 14:30:00 2023-08-20 15:39:40 Outpatient R TRISTIANSYDNEY [facility] [id number] [facility] 2023-08-20 14:30:00 2023-08-20 15:39:40 Office Visit Pgy2 Tristian [facility] 1..840.114 350.1.13.10 4.2.7.2.686 [id number] [facility] 2023-08-13 00:00:00 2023-08-13 00:00:00 Telephone Gretchen Murray [facility] 1..840.114 350.1.13.10 4.2.7.2.686 [id number] [facility] 2023-07-18 08:30:00 2023-07-18 08:30:00 Outpatient R ELIZA BOWERS [facility] [id number] [facility] 2023-04-24 10:13:00 2023-04-24 12:05:00 Emergency X RAHEL DICKSON [facility] ERT [id number] [facility] 2023-04-24 10:13:00 2023-04-24 12:05:00 Emergency Rahel Dickson [facility] 1.2.840.114 350.1.13.10 4.2.7.2.686 [id number] [facility] 2023-04-18 11:00:00 2023-04-18 11:09:48 Outpatient R ELIZA BOWERS [facility] [id number] [facility] 2023-04-18 11:00:00 2023-04-18 11:09:48 Office Visit Soy [facility] BUILDING 1.2.840.114 350.1.13.10 4.2.7.2.686 [id number] [facility] 2023-04-04 00:00:00 2023-04-04 00:00:00 [facility] 1.2.840.114 350.1.13.10 4.2.7.2.686 [id number] [facility] 2023-04-01 13:53:27 2023-04-01 23:59:00 Outpatient R ELIZA BOWERS [facility] [id number] [facility] 2023-04-01 13:45:00 2023-04-01 23:59:00 Hospital Encounter Stacy Bowersssica [facility] 1.2.840.114 350.1.13.10 4.2.7.2.686 [id number] [facility] 2023-04-01 13:30:00 2023-04-01 13:36:46 Graduate Student Instructor Visit 2, Adc Lab Soy [facility] BUILDING 1.2.840.114 350.1.13.10 4.2.7.2.686 [id number] [facility] 2023-04-01 13:00:00 2023-04-01 13:28:27 Office Visit Eliza Bowers [facility] 1.2.840.114 350.1.13.10 4.2.7.2.686 [id number] [facility] 2023-03-14 11:00:00 2023-03-14 11:00:00 Outpatient R ELIZA BOWERS [facility] [id number] [facility] 2023-03-09 00:00:00 2023-03-09 00:00:00 Refill Stacy Bowersssica [facility] 1..840.114 350.1.13.10 4.2.7.2.686 [id number] [facility] 2023-02-14 10:00:00 2023-02-14 10:27:33 Outpatient R SOYELIZA [facility] [id number] [facility] 2023-02-14 10:00:00 2023-02-14 10:27:33 Office Visit Eliza Bowers [facility] 1..840.114 350.1.13.10 4.2.7.2.686 [id number] [facility] 2023-01-23 14:30:00 2023-01-23 14:30:00 Outpatient R LESLIE CASTELLANOS [facility] [id number] [facility] 2023-01-10 00:00:00 2023-01-10 00:00:00 Outpatient R SOY ELIZA [facility] [id number] [facility] 2023-01-04 00:00:00 2023-01-04 00:00:00 Leslie Latham [facility] CLE[facility] FEEDER [facility] 1..840.114 350.1.13.10 4.2.7.2.686 [id number] [facility] 2023-01-03 10:15:00 2023-01-03 10:30:00 Graduate Student Instructor Visit 2, Adc Lab Stacy Bowersssica [facility] BUILDING 1.84.114 350.1.13.10 4.2.7.2.686 [id number] [facility] 2023-01-03 09:30:00 2023-01-03 10:13:42 Outpatient R STACY BOWERSSSICA [facility] [id number] [facility] 2023-01-03 09:30:00 2023-01-03 10:13:42 Office Visit Stacy Bowersssica [facility] 1.840.114 350.1.13.10 4.2.7.2.686 [id number] [facility] 2023-01-03 00:00:00 2023-01-03 00:00:00 Telephone Leslie Castellanos [facility] FEEDER [facility] 1.84.114 350.1.13.10 4.2.7.2.686 [id number] [facility] 2023-01-01 15:15:00 2023-01-01 15:15:00 Outpatient R LESLIE CASTELLANOS [facility] [id number] [facility] 2023-01-01 08:30:00 2023-01-01 08:30:00 Outpatient R SOYELIZA [facility] [id number] [facility] 2022-12-27 19:33:00 2022-12-27 21:29:00 Emergency X YAW BRO [facility] ERT [id number] [facility] 2022-12-27 19:33:00 2022-12-27 21:29:00 Emergency Yaw Bro [facility] 1.840.114 350.1.13.10 4.2.7.2.686 [id number] [facility] 2022-12-27 19:00:00 2022-12-27 19:20:00 [facility], Attending [facility] 1..114 350.1.13.10 4.2.7.2.686 [id number] [facility] 2022-12-27 19:00:00 2022-12-27 19:00:00 Outpatient R UNKNOWN, ATTENDING [facility] [id number] [facility] 2022-12-27 19:00:00 2022-12-27 19:00:00 Outpatient R BAILEE LIZ [facility] [id number] [facility] 2022-12-25 00:00:00 2022-12-25 00:00:00 Telephone Leslie Castellanos [facility] CLEAT FEEDER [facility] 1..114 350.1.13.10 4.2.7.2.686 [id number] [facility] 2022-12-20 10:00:00 2022-12-20 10:58:56 Outpatient R LESLIE CASTELLANOS [facility] [id number] [facility] 2022-12-20 10:00:00 2022-12-20 10:58:56 Office Visit Leslie Castellanos [facility] FE[facility]ER [facility] 1..114 350.1.13.10 4.2.7.2.686 [id number] [facility] 2022-12-20 00:00:00 2022-12-20 00:00:00 Orders Only Doctor Unassigned, [place] [facility] 1..114 350.1.13.10 4.2.7.2.686 [id number] [facility] 2022-09-24 00:00:00 2022-09-24 00:00:00 Case Management Carla Vaughn [facility] FE[facility]ER [facility] 1.2.840.114 350.1.13.10 4.2.7.2.686 [id number] [facility] 2022-09-21 09:30:00 2022-09-21 10:18:05 Outpatient R CARLA VAUGHN [facility] [id number] [facility] 2022-09-21 09:30:00 2022-09-21 10:18:05 Office Visit Provider, [facility]cadio-Rmp Temp Carla Vaughn [facility] CLE[facility] FEEDER [facility] 1..840.114 350.1.13.10 4.2.7.2.686 [id number] [facility] 2022-09-21 00:00:00 2022-09-21 00:00:00 Letter (Out) Carla Vaughn [facility] CLE[facility] FEEDER [facility] 1..840.114 350.1.13.10 4.2.7.2.686 [id number] [facility] 2022-09-07 08:30:00 2022-09-07 08:30:00 Outpatient R ROSALES CHAPIN EMILY [facility] [id number] [facility] 2022 13:40:00 2022 13:40:00 Outpatient R HENOK, MELINDA [facility] [id number] [facility] 2022-02-15 09:00:00 2022-02-15 09:18:29 Office Visit Jacob Barrientos [facility] FEEDER [facility] 1.2.840.114 350.1.13.10 4.2.7.2.686 [id number] [facility] 2022-02-15 09:00:00 2022-02-15 09:18:29 Outpatient JACOB BAUTISTA [facility] [id number] [facility] 2022-02-15 09:00:00 2022-02-15 09:00:00 Outpatient R JACOB BARRIENTOS [facility] [id number] [facility] 2022-02-15 09:00:00 2022-02-15 09:00:00 Outpatient JACOB BAUTISTA [facility] [id number] [facility] 2022-01-12 00:00:00 2022-01-12 00:00:00 Telephone Jacob Barrientos Ivan [facility] CLE[facility] FEEDER [facility] 1.2.840.114 350.1.13.10 4.2.7.2.686 [id number] [facility] 2022-01-11 15:15:00 2022-01-11 16:08:32 Office Visit Jacob Barrientos Ivan [facility] FEEDER [facility] 1.2.840.114 350.1.13.10 4.2.7.2.686 [id number] [facility] 2022-01-11 15:15:00 2022-01-11 16:08:32 Outpatient CIERRA BAUTISTASHELL [facility] [id number] [facility] 2022-01-11 15:15:00 2022-01-11 15:15:00 Outpatient CIERRA BAUTISTASHELL [facility] [id number] [facility] 2021-11-16 10:30:00 2021-11-16 10:30:00 Outpatient R [facility] [id number] [facility] 2021-11-16 08:00:00 2021-11-16 08:20:47 Outpatient R FLOYD JACOB [facility] [id number] [facility] 2021-11-16 08:00:00 2021-11-16 08:20:47 Nurse Visit Visit, Arcadio-Rmchp Nurse Jacob Barrientos [facility] CLE[facility] FEEDER [facility] 1.20.114 350.1.13.10 4.2.7.2.686 [id number] [facility] 2021-11-03 00:00:00 2021-11-03 00:00:00 Telephone Jacob Barrientos [facility] FEEDER [facility] 1.20.114 350.1.13.10 4.2.7.2.686 [id number] [facility] 2021-11-02 10:30:00 2021-11-02 11:58:09 Office Visit Jacob Barrientos [facility] FE[facility]ER [facility] 1.840.114 350.1.13.10 4.2.7.2.686 [id number] [facility] 2021-11-02 10:30:00 2021-11-02 11:58:09 Outpatient R JACOB BARRIENTOS [facility] [id number] [facility] 2021-11-02 10:30:00 2021-11-02 11:58:09 Outpatient JACOB BAUTISTA [facility] [id number] [facility] 2021-11-02 10:30:00 2021-11-02 10:30:00 Outpatient CIERRA BAUTISTAJHONYCARLOS [facility] [id number] [facility] 2021-11-02 10:30:00 2021-11-02 10:30:00 Outpatient CIERRA BAUTISTACARLOS [facility] [id number] [facility] 2021-11-02 00:00:00 2021-11-02 00:00:00 Orders Only Doctor Unassigned, [place] [facility] 1..114 350.1.13.10 4.2.7.2.686 [id number] [facility] 2021-10-16 19:47:00 2021-10-16 20:32:00 Emergency X ALIVIA LEE [facility] ERT [id number] [facility] 2021-10-16 19:47:00 2021-10-16 20:32:00 Emergency Alivia Lee F [facility] 1.84.114 350.1.13.10 4.2.7.2.686 [id number] [facility] 2021-08-01 08:30:00 2021-08-01 09:21:32 Outpatient R JACOB BARRIENTOS [facility] [id number] [facility] 2021-08-01 08:30:00 2021-08-01 09:21:32 Office Visit Jacob Barrientos [facility] 1.840.114 350.1.13.10 4.2.7.2.686 [id number] [facility] 2021-08-01 00:00:00 2021-08-01 00:00:00 Orders Only Doctor Unassigned, [place] [facility] 1.284.114 350.1.13.10 4.2.7.2.686 [id number] [facility] 2021-07-31 00:00:00 2021-07-31 00:00:00 Telephone Jacob Barrientos [facility] 1.840.114 350.1.13.10 4.2.7.2.686 [id number] [facility] 2021-06-13 10:30:00 2021-06-13 10:58:17 Outpatient R CINDY APARICIO [facility] [id number] [facility] 2021-06-13 10:01:19 2021-06-13 10:58:17 Office Visit Cindy Aparicio [facility] [facility] 1.840.114 350.1.13.10 4.2.7.2.686 [id number] [facility] 2021-06-13 10:30:00 2021-06-13 10:30:00 Outpatient R CINDY APARICIO [facility] [id number] [facility] 2021-06-06 00:00:00 2021-06-06 00:00:00 Telephone Jacob Barrientos [facility]ILD [facility] 1.840.114 350.1.13.10 4.2.7.2.686 [id number] [facility] 2021-04-10 10:00:00 2021-04-10 10:00:00 Outpatient R LESLIE CASTELLANOS [facility] [id number] [facility] 2021-03-31 00:00:00 2021-03-31 00:00:00 Letter (Out) Rayne Jones [facility] 1..114 350.1.13.10 4.2.7.2.686 [id number] [id number] [facility] 2021-03-30 12:30:00 2021-03-30 12:30:00 Outpatient R NI ALVAREZ [facility] [id number] [facility] 2020-12-30 09:29:12 2020-12-30 10:10:09 Office Visit Jacob Barrientos [facility] & CHILD [facility] 1.284.114 350.1.13.10 4.2.7.2.686 [id number] 107 [id number] [facility] 2020-12-30 09:29:12 2020-12-30 10:10:09 Office Visit Jacob Barrientos [facility] & CHILD [facility] 1.2840.114 350.1.13.10 4.2.7.2.686 [id number] 107 [id number] 2020-12-30 09:30:00 2020-12-30 09:30:00 Outpatient LESLIE BOWER [facility] [id number] [facility] 2020-12-30 08:45:00 2020-12-30 08:45:00 Outpatient R JACOB BARRIENTOS [facility] [id number] [facility] 2020-12-16 08:57:28 2020-12-16 09:27:28 Office Visit Leslie Castellanos [facility] & CHILD [facility] ..114 350.1.13.10 4.2.7.2.686 [id number] 107 [id number] [facility] 2020-12-16 09:00:00 2020-12-16 09:00:00 Outpatient R LESLIE CASTELLANOS [facility] [id number] [facility] 2020-12-16 00:00:00 2020-12-16 00:00:00 Orders Only Doctor Unassigned, [place] [facility] .114 350.1.13.10 4.2.7.2.686 [id number] [id number] [facility] 2020-12-02 00:00:00 2020-12-02 00:00:00 Telephone Leslie Castellanos [facility] & [facility]ILD [facility] 1..114 350.1.13.10 4.2.7.2.686 [id number] 107 [id number] [facility] 2020-11-29 15:31:01 2020-11-29 15:46:01 Nurse Visit Visit, Ang-Rmchp Nurse Jacob Barrientos [facility] & CHILD [facility] 1..114 350.1.13.10 4.2.7.2.686 [id number] 107 [id number] [facility] 2020-11-29 15:30:00 2020-11-29 15:30:00 Outpatient JACOB BAUTISTA [facility] [id number] [facility] 2020-11-29 00:00:00 2020-11-29 00:00:00 Telephone Jacob Barrientos [facility] 1.840.114 350.1.13.10 4.2.7.2.686 [id number] 107 [id number] [facility] 2020-11-02 10:16:29 2020-11-02 11:05:27 Office Visit Jacob Barrientos [facility] & CHILD [facility] 1.840.114 350.1.13.10 4.2.7.2.686 [id number] 107 [id number] [facility] 2020-11-02 10:15:00 2020-11-02 10:15:00 Outpatient JACOB BAUTISTA [facility] [id number] [facility] 2020-11-02 00:00:00 2020-11-02 00:00:00 Orders Only Doctor Unassigned, [place] [facility] 1.84.114 350.1.13.10 4.2.7.2.686 [id number] [facility] 2020-11-01 15:00:00 2020-11-01 15:00:00 Outpatient JACOB BAUTISTA [facility] [id number] [facility] 2020-11-01 00:00:00 2020-11-01 00:00:00 Patient Outreach Joel Matt [facility] JACQUELINE 1.84.114 350.1.13.10 4.2.7.2.686 [id number] [facility] 2020-07-13 00:00:00 2020-07-13 00:00:00 Patient Secure Msg Doctor Unassigned, [place] MAURA COKER 1.84.114 350.1.13.10 4.2.7.2.686 [id number] [facility] 2020-07-04 00:00:00 2020-07-04 00:00:00 Refill Akinsijulianna, Leslie C [facility] 1.0.114 350.1.13.10 4.2.7.2.686 [id number] 107 [id number] [facility] 2020-06-13 09:15:00 2020-06-13 09:15:00 Outpatient R AKINMARIA A, LESLIE [facility] [id number] [facility] 2020-06-13 09:15:00 2020-06-13 09:15:00 Outpatient R AKINSIPE, LESLIE [facility] [id number] [facility] 2020-06-01 00:00:00 2020-06-01 00:00:00 Refill Akinsipe, Leslie C [facility] & [facility]ILD [facility] 1.114 350.1.13.10 4.2.7.2.686 [id number] 107 [id number] [facility] 2020-05-30 00:00:00 2020-05-30 00:00:00 RefElena Garcia [facility] ..114 350.1.13.10 4.2.7.2.686 [id number] [facility] 2020-05-27 10:30:00 2020-05-27 10:30:00 Outpatient R AKINMARIA A, LESLIE [facility] [id number] [facility] 2020-05-27 10:30:00 2020-05-27 10:30:00 Outpatient R AKINSIJULIANNA, LESLIE [facility] [id number] [facility] 2020-05-10 11:18:40 2020-05-10 11:38:40 Urgent Care Provider, [facility] Lalitaarun Elena [facility] Office [address] 1..840.114 350.1.13.10 4.2.7.2.686 [id number] [facility] 2020-05-10 11:20:00 2020-05-10 11:20:00 Outpatient R ELENA LOPEZ [facility] [id number] [facility] 2020-05-09 00:00:00 2020-05-09 00:00:00 Telephone Jacob Barrientos [facility] & [facility]ILD [facility] 1..840.114 350.1.13.10 4.2.7.2.686 [id number] 107 [id number] [facility] 2020-03-31 09:26:23 2020-03-31 10:13:41 Office Visit Leslie Castellanos [facility] 1.840.114 350.1.13.10 4.2.7.2.686 [id number] 107 [id number] [facility] 2020-03-31 09:00:00 2020-03-31 09:00:00 Outpatient R LESLIE CASTELLNAOS [facility] [id number] [facility] 2020-03-11 00:00:00 2020-03-11 00:00:00 Telephone Leslie Castellanos [facility] 1..840.114 350.1.13.10 4.2.7.2.686 [id number] 107 [id number] [facility] 2020-03-10 14:30:00 2020-03-10 14:30:00 Outpatient R LESLIE CASTELLANOS [facility] [id number] [facility] 2020-03-10 10:09:10 2020-03-10 11:09:52 Office Visit Leslie Castellanos [facility] 1.2.840.114 350.1.13.10 4.2.7.2.686 [id number] 107 [id number] [facility] 2020-03-07 00:00:00 2020-03-07 00:00:00 Telephone Jacob Barrientos [facility] 1.2.840.114 350.1.13.10 4.2.7.2.686 [id number] 107 [id number] [facility] 2019-12-29 13:01:04 2019-12-30 11:33:02 Initial Visit Jacob Barrientos [facility] CH[facility] 1.2.840.114 350.1.13.10 4.2.7.2.686 [id number] 107 [id number] [facility] 2019-12-30 00:00:00 2019-12-30 00:00:00 Patient Secure Msg Doctor Unassigned, [place] [facility] 1.2.840.114 350.1.13.10 4.2.7.2.686 [id number] 107 [id number] [facility] 2019-12-30 00:00:00 2019-12-30 00:00:00 Patient Secure Msg Doctor Unassigned, [place] [facility] 1.2.840.114 350.1.13.10 4.2.7.2.686 [id number] 107 [id number] [facility] 2019-12-29 14:04:59 2019-12-29 14:20:25 Office Visit Jacob Barrientos [facility] 1.2.840.114 350.1.13.10 4.2.7.2.686 [id number] 107 [id number] [facility] 2019-12-29 12:45:00 2019-12-29 12:45:00 Outpatient R FLOYD JACOB [facility] [id number] [facility] 2019-12-15 07:30:05 2019-12-15 08:20:00 Emergency Fletcher Ramesh [facility] 1.840.114 350.1.13.10 4.2.7.2.686 [id number] [facility] 2019-12-14 00:00:00 2019-12-14 00:00:00 Patient Secure Msg Ethel Marie [facility] 1.840.114 350.1.13.10 4.2.7.2.686 [id number] 107 [id number] [facility] 2019-11-30 08:30:00 2019-11-30 08:30:00 Outpatient R [facility] [id number] [facility] 2019-11-27 09:30:00 2019-11-27 09:30:00 Outpatient R [facility] [id number] [facility] 2019-11-26 09:00:00 2019-11-26 09:00:00 Outpatient R [facility] [id number] [facility] 2019-11-26 00:00:00 2019-11-26 00:00:00 Telephone Jacob Barrientos [facility] 1.840.114 350.1.13.10 4.2.7.2.686 [id number] 107 [id number] [facility] 2019-11-24 09:30:00 2019-11-24 09:30:00 Outpatient R LESLIE CASTELLANOS [facility] [id number] [facility] 2019-11-03 05:13:00 2019-11-03 05:13:00 Outpatient Raju_P [facility] [id number] [facility] 2019-10-27 00:00:00 2019-10-27 00:00:00 Patient Secure Msg Jacob Barrientos [facility] 1.2.840.114 350.1.13.10 4.2.7.2.686 [id number] 107 [id number] [facility] 2019-10-16 10:45:40 2019-10-16 11:26:43 Office Visit EmanuelPatelLeslieshanice [facility] 1.2.840.114 350.1.13.10 4.2.7.2.686 [id number] 107 [id number] [facility] 2019-10-16 10:45:00 2019-10-16 10:45:00 Outpatient R EMANUEL LESLIE CUTLER [facility] [id number] [facility] 2019-10-07 12:51:31 2019-10-07 13:44:17 Office Visit EmanuelPatelLeslie C [facility] [facility]ILD [facility] 1.2840.114 350.1.13.10 4.2.7.2.686 [id number] 107 [id number] [facility] 2019-10-07 13:00:00 2019-10-07 13:00:00 Outpatient R EMANUEL LESLIE CUTLER [facility] [id number] [facility] 2019-10-06 00:00:00 2019-10-06 00:00:00 Telephone EmanuelLeslie Patricio [facility] 1.2840.114 350.1.13.10 4.2.7.2.686 [id number] 107 [id number] [facility] 2019-10-02 14:07:49 2019-10-02 15:15:37 Office Visit Ramses Castellanosola Patricio [facility] & [facility]ILD [facility] 1.2.840.114 350.1.13.10 4.2.7.2.686 [id number] 107 [id number] [facility] 2019-08-25 09:57:53 2019-08-25 13:09:26 Office Visit Leslie Castellanos [facility] 1.2.840.114 350.1.13.10 4.2.7.2.686 [id number] 107 [id number] [facility] 2019-08-25 00:00:00 2019-08-25 00:00:00 Orders Only Doctor Unassigned, [place] [facility] 1.2.840.114 350.1.13.10 4.2.7.2.686 [id number] [facility] 2019-08-25 00:00:00 2019-08-25 00:00:00 Letter (Out) Leslie Castellanos [facility]ILD [facility] 1.2.840.114 350.1.13.10 4.2.7.2.686 [id number] 107 [id number] [facility] 2019-03-05 22:28:42 2019-03-05 23:12:00 Emergency Alvin Pace [facility] 1.2.840.114 350.1.13.10 4.2.7.2.686 [id number] 084 [id number] [facility] Results Test Description Test Time Test Comments Results Result Co mments Source [facility] [id number] 14:27:00* Test Item Value Reference Range Interpretation Comme nts POCT PREG (test code = 1605) Positive On board controls acceptable with C Line (test code = 3574) Yes POCT PREG LOT # (test code = 3575) POCT PREG TEST DATE ( test code = 3576) [facility] Metabolic Panel ([id number])2023-11-12 03:59:37* Test Item Value Reference Range Interpretation Comme nts NA (test code = 1801343063) 135 mmol/L 135-145 K (test code = 5479056531) 3.4 mmol/L 3.5-5.0 L CL (test code = 9502889967) 103 mmol/L 98-108 CO2 TOTAL (test code = 4537973360) 27 mmol/L 23-31 AGAP (test code = 5751387983) 5 2-16 BUN (test code = 1440465584) 7 mg/dL 7-23 GLUCOSE (test code = 8174965772) 85 mg/dL 70-110 CREATININE (test code = 2160-0) 0.44 mg/dL 0.50-1.04 L TOTAL BILI (test code = 4232776099) 0.5 mg/dL 0.1-1.1 CALCIUM (test code = 0919413823) 9.2 mg/dL 8.6-10.6 T PROTEIN (test code = 3622908472) 7.2 g/dL 6.3-8.2 ALBUMIN (test code = 1525564305) 4.1 g/dL 3.5-5.0 ALK PHOS (test code = 4678416517) 53 U/L 34-122 ALTv (test code = 1742-6) 11 U/L 5-35 AST(SGOT) (test code = 8091716759) 30 U/L 13-40 eGFR (test code = 53701-9) 140.5 mL/min/1.73m2 CKD-EPI eGFR (2020). Assuming creatinine has been stable day-to-day for at least three months, the eGFR indicates Category G1 (>= 90 mL/min/1.73 m2) Lab Interpretation (test code = 78312-5) Abnormal [facility] 03:59:17* Test Item Value Reference Range Interpretation Comme nts LIPASE (test code = 7733499142) 83 U/L 0-220 Lab Interpretation (test cod e = 38642-3) Normal [facility] with [id number] 03:46:41* Test Item Value Reference Range Interpretation Comme nts WBC (test code = 6690-2) 12.63 4.30-11.10 H RBC (test code = 789-8) 4.09 3.93-5.25 HGB (test code = 718-7) 13.3 g/dL 11.6-15.0 HCT (test code = 4544-3) 38.2 % 35.7-45.2 MCV (test code = 787-2) 93.4 fL 80.6-95.5 MCH (test code = 785-6) 32.5 pg 25.9-32.8 MCHC (test code = 786-4) 34.8 g/dL 31.6-35.1 RDW-SD (test code = 23442-4) 39.0 fL 39.0-49.9 RDW-CV (test code = 788-0) 11.6 % 12.0-15.5 L PLT (test code = 777-3) 219 166-358 MPV (test code = 17499-9) 10.9 fL 9.5-12.9 NRBC/100 WBC (test code = 8965364753) 0.0 0.0-10.0 NRBC x10^3 (test code = 3928123498) See_Comment [Automated messa ge] The system which generated this result transmitted reference range: 10*3/?L. The reference range was not used to interpret this result as normal/abnormal. GRAN MAT (NEUT) % (test code = 770-8) 61.7 % IMM GRAN % (test code = 1662635215) 0.30 % LYMPH % (test code = 736-9) 28.8 % MONO % (test code = 5905-5) 5.9 % EOS % (test code = 713-8) 2.8 % BASO % (test code = 706-2) 0.5 % GRAN MAT x10^3(ANC) (test code = 1418941620) 7.80 10*3/uL 1.88-7.09 H IMM GRAN x10^3 (test code = 7031589091) 0.04 10*3/uL 0.00-0.06 LYMPH x10^3 (test code = 731-0) 3.64 10*3/uL 1.32-3.29 H MONO x10^3 (test code = 742-7) 0.74 10*3/uL 0.33-0.92 EOS x10^3 (test code = 711-2) 0.35 10*3/uL 0.03-0.39 BASO x10^3 (test code = 704-7) 0.06 10*3/uL 0.01-0.07 Lab Interpretation (test code = 66444-9) Abnormal [facility] [id number] 19:13:57 * Test Item Value Reference Range Interpretation Comme nts TSH (test code = 8954413566) 1.49 0.45-4.70 Lab Interpretation (test cod e = 69788-8) Normal [facility] BHCG (QUANTITATIVE)2023-10-24 19:13:26* Test Item Value Reference Range Interpretation Comme nts BETA HCG (test code = 6784972105) 656.79 See_Comment [Automated Solazymea ge] The system which generated this result transmitted reference range: Non- female and male patients: <5 mIU/mL. The reference range was not used to interpret this result as normal/abnormal. VICENTE (test code = VICENTE) Gestational Age ?Range (mIU/mL) 1-10 ?Weeks ?84-26788377-55 Weeks ?51885-63870631-44 Weeks ?8393-97710023-06 Weeks ?4941-177765 Biotin has been reported to cause a negative bias, interpret results relative to patient's use of biotin. [facility]. Metabolic Panel (23918)2023-10-24 18:43:10* Test Item Value Reference Range Interpretation Comme nts NA (test code = 5656311176) 138 mmol/L 135-145 K (test code = 8426816999) 4.1 mmol/L 3.5-5.0 CL (test code = 9268116367) 105 mmol/L 98-108 CO2 TOTAL (test code = 4593441101) 26 mmol/L 23-31 AGAP (test code = 3473847805) 7 2-16 BUN (test code = 5436642918) 11 mg/dL 7-23 GLUCOSE (test code = 4716136818) 100 mg/dL 70-110 CREATININE (test code = 2160-0) 0.55 mg/dL 0.50-1.04 TOTAL BILI (test code = 9524690717) 1.1 mg/dL 0.1-1.1 CALCIUM (test code = 6680702369) 9.1 mg/dL 8.6-10.6 T PROTEIN (test code = 5815765085) 7.5 g/dL 6.3-8.2 ALBUMIN (test code = 9667389556) 4.4 g/dL 3.5-5.0 ALK PHOS (test code = 5842488543) 58 U/L 34-122 ALTv (test code = 1742-6) 16 U/L 5-35 AST(SGOT) (test code = 7179251097) 25 U/L 13-40 eGFR (test code = 17621-3) 133.1 mL/min/1.73m2 CKD-EPI eGFR (20 21). Assuming creatinine has been stable day-to-day for at least three months, the eGFR indicates Category G1 (>= 90 mL/min/1.73 m2) [facility] with [id number] 18:30:51* Test Item Value Reference Range Interpretation [...] 34.5 g/dL 31.6-35.1 RDW-SD (test code = 59689-6) 40.6 fL 39.0-49.9 RDW-CV (test code = 788-0) 11.9 % 12.0-15.5 L PLT (test code = 777-3) 230 166-358 MPV (test code = 05042-2) 10.7 fL 9.5-12.9 NRBC/100 WBC (test code = 7083855695) 0.0 0.0-10.0 NRBC x10^3 (test code = 2853369612) See_Comment [Automated Solazymea ge] The system which generated this result transmitted reference range: 10*3/?L. The reference range was not used to interpret this result as normal/abnormal. GRAN MAT (NEUT) % (test code = 770-8) 64.9 % IMM GRAN % (test code = 4752895693) 0.30 % LYMPH % (test code = 736-9) 25.7 % MONO % (test code = 5905-5) 6.0 % EOS % (test code = 713-8) 2.5 % BASO % (test code = 706-2) 0.6 % GRAN MAT x10^3(ANC) (test code = 5324388883) 6.11 10*3/uL 1.88-7.09 IMM GRAN x10^3 (test code = 6017071561) 0.03 10*3/uL 0.00-0.06 LYMPH x10^3 (test code = 731-0) 2.43 10*3/uL 1.32-3.29 MONO x10^3 (test code = 742-7) 0.57 10*3/uL 0.33-0.92 EOS x10^3 (test code = 711-2) 0.24 10*3/uL 0.03-0.39 BASO x10^3 (test code = 704-7) 0.06 10*3/uL 0.01-0.07 Lab Interpretation (test code = 75014-9) Abnormal [facility] and Screen - ONCE [id number] 18:27:00 * Test Item Value Reference Range Interpretation Comme nts ABO & RH (test code = 20) O POSITIVE IAT (test code = 1185) Negative [facility] [id number] 15:42:00* Test Item Value Reference Range Interpretation Comme nts POCT PREG (test code = 1605) Negative On board controls acceptable with C Line (test code = 3574) Yes POCT PREG LOT # (test code = 3573) [id number] POCT PREG TEST DATE ( test code = 3576) 2024-08-14 Lab Interpretation (test cod e = 81857-2) Normal [facility] [id number] 16:00:00* Test Item Value Reference Range Interpretation Comme nts POCT PREG (test code = 1605) Negative On board controls acceptable with C Line (test code = 3574) Yes POCT PREG LOT # (test code = 3575) POCT PREG TEST DATE ( test code = 3576) [facility] [id number] 16:00:00* Test Item Value Reference Range Interpretation Comme nts POCT PREG (test code = 1605) Negative On board controls acceptable with C Line (test code = 3574) Yes POCT PREG LOT # (test code = 3575) POCT PREG TEST DATE ( test code = 3576) [facility] URINALYSIS W SPECIFIC [id number] 15:11:00* Test Item Value Reference Range Interpretation [...] clear Lab Interpretation (test cod e = 50249-1) Abnormal [facility] URINALYSIS W SPECIFIC [id number] 15:11:00* Test Item Value Reference Range Interpretation [...] clear Lab Interpretation (test cod e = 91296-6) Abnormal [facility] [id number] 15:09:00* Test Item Value Reference Range Interpretation Comme nts POCT PREG (test code = 1605) Negative On board controls acceptable with C Line (test code = 3574) Yes POCT PREG LOT # (test code = 3575) POCT PREG TEST DATE ( test code = 3576) [facility] [id number] 15:09:00* Test Item Value Reference Range Interpretation Comme nts POCT PREG (test code = 1605) Negative On board controls acceptable with C Line (test code = 3574) Yes POCT PREG LOT # (test code = 3575) POCT PREG TEST DATE ( test code = 3576) [facility] [id number] 02:02:22 * Test Item Value Reference Range Interpretation Comme nts TSH (test code = 0047045469) 2.26 See_Comment [Automated messa ge] The system which generated this result transmitted reference range: 0.45 - 4.70 mIU/L. The reference range was not used to interpret this result as normal/abnormal. Lab Interpretation (test code = 47098-0) Normal [facility]. METABOLIC PANEL (31493)2022-12-28 01:32:39* Test Item Value Reference Range Interpretation Comme nts NA (test code = 6132342443) 139 mmol/L 135-145 K (test code = 9898616990) 3.4 mmol/L 3.5-5.0 L CL (test code = 5650553722) 103 mmol/L 98-108 CO2 TOTAL (test code = 5073970953) 24 mmol/L 23-31 AGAP (test code = 3262846397) 12 2-16 BUN (test code = 3206621745) 8 mg/dL 7-23 GLUCOSE (test code = 7750275784) 121 mg/dL 70-110 H CREATININE (test code = 7066298214) 0.57 mg/dL 0.50-1.04 TOTAL BILI (test code = 5934747046) 1.0 mg/dL 0.1-1.1 CALCIUM (test code = 1566199047) 9.2 mg/dL 8.6-10.6 T PROTEIN (test code = 3245337929) 6.9 g/dL 6.3-8.2 ALBUMIN (test code = 7471343073) 4.4 g/dL 3.5-5.0 ALK PHOS (test code = 4586084853) 47 U/L 34-122 ALTv (test code = 1742-6) 16 U/L 5-35 AST(SGOT) (test code = 8787563515) 22 U/L 13-40 eGFR (test code = 5578257558) 133.9 mL/min/1.73m2 VICENTE (test code = VICENTE) [...] imaging tests). Lab Interpretation (test code = 41705-5) [facility] 01:32:19* Test Item Value Reference Range Interpretation Comme nts LIPASE (test code = 6509222895) 67 U/L 0-220 Lab Interpretation (test cod e = 27381-0) Normal [facility] WITH [id number] 01:20:58* Test Item Value Reference Range Interpretation Comme nts WBC (test code = 6690-2) 9.89 See_Comment [Automated [employer]] The system which generated this result transmitted reference range: 4.30 - 11.10 10*3/?L. The reference range was not used to interpret this result as normal/abnormal. RBC (test code = 789-8) 4.29 See_Comment [Automated [employer]] The system which generated this result transmitted [...] 34.2 g/dL 31.6-35.1 RDW-SD (test code = 30072-6) 38.2 fL 39.0-49.9 L RDW-CV (test code = 788-0) 11.9 % 12.0-15.5 L PLT (test code = 777-3) 177 See_Comment [Automated [employer]] The system which generated this result transmitted reference range: 166 - 358 10*3/?L. The reference range was not used to interpret this result as normal/abnormal. MPV (test code = 29217-4) 11.6 fL 9.5-12.9 NRBC/100 WBC (test code = 4865908392) 0.0 See_Comment [Automated me ssage] The system which generated this result transmitted reference range: 0.0 - 10.0 /100 WBCs. The reference range was not used to interpret this result as normal/abnormal. NRBC x10^3 (test code = 5083693679) See_Comment [Automated messa ge] The system which generated this result transmitted reference range: 10*3/?L. The reference range was not used to interpret this result as normal/abnormal. GRAN MAT (NEUT) % (test code = 770-8) 64.1 % IMM GRAN % (test code = 4961947633) 0.30 % LYMPH % (test code = 736-9) 28.1 % MONO % (test code = 5905-5) 5.8 % EOS % (test code = 713-8) 1.3 % BASO % (test code = 706-2) 0.4 % GRAN MAT x10^3(ANC) (test code = 8483751000) 6.34 10*3/uL 1.88-7.09 IMM GRAN x10^3 (test code = 1279854789) 0.03 10*3/uL 0.00-0.06 LYMPH x10^3 (test code = 731-0) 2.78 10*3/uL 1.32-3.29 MONO x10^3 (test code = 742-7) 0.57 10*3/uL 0.33-0.92 EOS x10^3 (test code = 711-2) 0.13 10*3/uL 0.03-0.39 BASO x10^3 (test code = 704-7) 0.04 10*3/uL 0.01-0.07 Lab Interpretation (test code = 18741-2) Abnormal [facility] LOOP9616-00-24 01:05:00* Test Item Value Reference Range Interpretation Comme nts POCT PREG (test code = 1605) Negative On board controls acceptable with C Line (test code = 3574) Yes POCT PREG LOT # (test code = 3576) [id number] POCT PREG TEST DATE ( test code = 3576) 2024-03-19 Lab Interpretation (test cod e = 54305-4) [facility]RA[facility]304[facility]51 15:47:00* Test Item Value Reference Range Interpretation Comme nts POCT PREG (test code = 1605) Negative On board controls acceptable with C Line (test code = 3574) Yes POCT PREG LOT # (test code = 3575) POCT PREG TEST DATE ( test code = 3576) [facility] GSKW3512-89-46 15:47:00* Test Item Value Reference Range Interpretation Comme nts POCT PREG (test code = 1605) Negative On board controls acceptable with C Line (test code = 3574) Yes POCT PREG LOT # (test code = 3575) POCT PREG TEST DATE ( test code = 3576) [facility] Notes Date/Time Note Provider Source 2023-11-15 14:57:53 R+DD3oEtb1sBfD+F6Me4 0zyrUFwJaEYbVg Yjh49FlP2lGJUGAuAUOpQ+SnHzLsMm0584 -04-05T14:57:53 Called pt, discussed lab results. Pt signed ROR for usg, advised provider will FU with poc once she receives the report. Pt verbalized understanding.Ethel Peterson RN 11/15/23 2:58 PM 04719-1Jvmevykzt encounter MxgrMU7131-34-94T06:58:44Telephone encounter NoteTXT1.2.840.844514.1.13.104.2.7 .2.225044|[id number] for patient jtlc50413-5RsooKIGWLHRGVCVIjbrhlmp d C-CDA narrative text[address] EmadVigjwzqadZynqhgmupVCXU50041600 12PSHIPNQSSNWHYQZQWYOBWT2754-38-44 T14:58:441.2.840.836531.1.72.3.15| 1.2.840.499126.1.13.104.2.7.2.7278 [id number] [facility] 2023-11-15 11:31:30 2jI010LT5IoT9UtKBWD8 zHOqzTwoJ3gdg9 g5gj0VyulEeJuaCI0uiJhqbtfYGApK2278 -04-05T11:31:30 Maylin Zuniga is a 23 year old femalePt is calling to notify provider that she has ovarian cyst results received from her previous provider and pt is requesting to discuss most recent lab results. Pt is 8wks . Please contact pt at [phone]. 64148-6Lahdqgxia encounter JfcdEK2492-07-43B82:32:40Telephone encounter NoteTXT1.2.840.867025.1.13.104.2.7 .2.665726|[id number] for patient umfl68279-5NioaKXGDBHPEQTCZgvayxsb d C-CDA narrative elvr60070988Cvvduf [address] 40MBPNEJHAFFCIBOTHOHQGOL9191-65-74 T11:32:401.2.840.045911.1.72.3.15| 1.2.840.288767.1.13.104.2.7.2.7278 [id number] Hector Carver [facility] 2023-11-11 23:49:53 P201FLTFrF1F3d3fg2e0 QfVkEzHQUE9k+o WRg504M3tvjAFbSFjDrb/4wnpBdtHg9433 -04-01T23:49:53 Pt given printed and verbal discharge instructions regarding nausea and vomiting, hypokalemia, and mild dehydrationPrescriptions providedPt verbalized understanding of instructions, pt awake alert oriented, resp reg unlabored, skin w/d, color appropriate for race, moves all ext well,pt encouraged to follow up with pcpAdvised to seek medical attention for new/prolonged/worsening of symptomsNo adverse reaction to meds given in ER noted upon dischargePIV d'cd, dressing to site, catheter in tact.Awake, alert oriented, resp reg unlabored, skin w/d, pt leaving amb with steady gait, in no apparent distress 59524-3Ifklgvdim department BtbnIK6650-84-95Y16:50:38[facility] NoteTXT1.2.840.138737.1.13.104.2.7 .2.994929|[id number] for patient jhbs64433-5XjyeBCYHRKRQRPXMahlwnth d C-CDA narrative hcfv401827362Gvsrcoi A Diaz RN[address]vd[id number] 31NMLBYJKVSILVKJIKHDHAXW4084-79-95 T23:50:381.2.840.289521.1.72.3.15| 1.2.840.964668.1.13.104.2.7.2.7278 [id number] Keli Banks RN [facility] 2023-11-11 23:24:06 hCDMaVSD/21F94UurDBk BwUvb9xoaBlhCr ZW3KS6NXWcddRjy16Uo2tb3u1LSbre1908 -04-01T23:24:06 Ice chips given 92291-3Cwuqyzpmb department BrcmXA4131-03-37C49:24:17[facility] NoteTXT1.2.840.267539.1.13.104.2.7 .2.527082|[id number] for patient onsw21215-4QsekGYFRPLPFGBWCucblekn d C-CDA narrative xwco630812529Ctkgy A. Campbell RNUT[id number] 54VIVVNZDHGZKUZXNZVQRSVD8541-81-66 T23:24:171.2.840.960812.1.72.3.15| 1.2.840.934088.1.13.104.2.7.2.7278 [id number] Anabela Carson RN [facility] 2023-11-11 22:30:00 /wf68h+DipYhm/Ildx/W apQouxVgLm/wSF yfByheA6pcmF9H/VTNnqYP+YgA7Wsc6299 -04-01T22:30:00 Ice chips given 41601-5Qoqkqazfv department PcxfOY1677-83-25X49:44:11[facility] NoteTXT1.2.840.234956.1.13.104.2.7 .2.058127|[id number] for patient tvvc91701-1SxtgUIYVXLBASNIKihuhqjs d C-CDA narrative text[id number] 19ICEVSAXSJUMKDYPFDVVOBR4861-53-72 T22:44:111.2.840.266124.1.72.3.15| 1.2.840.081684.1.13.104.2.7.2.7278 [id number] [facility] 2023-11-11 21:43:20 msuNSLyzBKWGHM8QIaly RxMTc3rBOcMgq2 owP7ZcQWtvEj3MXIencrZ1a3pOZJSk6203 -04-01T21:43:20 CC: Pt reports "I can't keep anything down" She ran out of zofran and is using preggie pops? Pt is 7 wks Awake, alert, oriented, resp reg unlabored, skin warm, color appropriate for race, moves all ext without difficulty, amb with steady gait 91002-2Xukenyjpz department Triage ubkaQC3497-46-63U30:44:20[facility] Triage noteTXT1.2.840.358708.1.13.104.2.7 .2.965844|[id number] for patient xqif53757-0Neqiypwfn department NoteLNNARRATIVEFormatted C-CDA narrative xbwv253107604Hrhaeb R Shehadeh RN[address] ZexqQwwqgjorvLddwbnxzpBWZJ26774245 37BVVZQWHLBBWLXCTEJDRJBD9173-55-95 T21:44:201.2.840.217857.1.72.3.15| 1.2.840.097612.1.13.104.2.7.2.7278 [id number] Alisia Guzman RN [facility] 2023-11-01 15:42:51 0FPE/jl/1rcSOT2fez35 9tLmxDQpKAKHXl 74LJY+UDaEJEroagefvtEZ1h6R+yCB7197T15:42:51 Maylin Zuniga is a 23 year old femalePt is calling requesting to speak with Rajwinder at clinic to continue conversation regarding insurance questions. Pt connected w/ clinic Pss. 02300-4Aklvmytmo encounter AihtFC9844-29-38G20:43:27Telephone encounter NoteTXT1.2.840.169183.1.13.104.2.7 .2.917964|5225101829QPJymqnkgse for patient urck71862-3LclpXYKRUKXACQTFasmpvat d C-CDA narrative zngi20032246Kopeqr Manzo[address]vdGal[address]on[place]TX[address] 84RVOETYVWZLAAHOVVHJTSJC0972-71-89 T15:43:271.2.840.434114.1.72.3.15| 1.2.840.368859.1.13.104.2.7.2.7278 [id number] Hector Carver [facility] 2023-10-24 16:52:17 h1uEGnZlHRAlvQH2IjOY /hxNLosVlLxGig +cytM1lNXLhem1rT4/a+tJ1fU0SPCa9655 -03-14T16:52:17 Patient states that she is tired and hungry and is ready to leave. States "I just had the trans vag but I don't want to wait for the results, she said it would be an hour. My levels looked Ok so I'm just going to leave". AMA form signed, IV removed and patient left the department. 65849-7Dljumuyqq department CbvwSQ4668-85-04S75:53:11[facility] NoteTXT1.2.840.297560.1.13.104.2.7 .2.241652|[id number] for patient ljhz03274-2NaclHILGOFSYZXWHydtqqur d C-CDA narrative text[address] WjqwTwzhbumtuDeznopuzpLOWC21003020 85BDDOYTORJGXYWVYXWXAPDR1836-48-63 T16:53:111.2.840.431178.1.72.3.15| 1.2.840.228354.1.13.104.2.7.2.7278 [id number] [facility] 2023-10-24 15:47:36 /79YFAUBHCQrd8251QSx F1Umysi8RJWHzD nTrE9pAKv1xY3h3lAqogd3LCiw5nB41786 -03-14T15:47:36 Pt being evaluated in ER at this time. 87782-1Vxyzrkljm encounter WdgcJH6420-36-38U49:47:47Telephone encounter NoteTXT1.2.840.823438.1.13.104.2.7 .2.096284|[id number] for patient krxp98094-6LzylHENMEVKNFUIBvubgijf d C-CDA narrative ydnc969811779Fwzndljq Garcia [address] RbqgNodzvisorMijmhbnmnPGIO13708994 19KGKEOHQFGIKGEBKACRPBUN5535-90-50 T15:47:471.2.840.694307.1.72.3.15| 1.2.840.267247.1.13.104.2.7.2.7278 [id number] Francine Aparicio [facility] 2023-10-24 14:46:48 lVIbtQoep3C8XqZ277ho Ex2WMyybb9ir/A Yq5eVYhAAC+E4YnLcln3zHKBRWFiKM5938 -03-14T14:46:48 Maylin Zuniga is a 23 year old femalePt is calling to speak with a nurse to see if she is ok to take her VENLAFAXINE XR 37.5 mg 24 hr capsule while . Pt has not been taking the medication and is biting skin [place] [address]-8Ibsnvfcol encounter AyyfSS6656-92-49I68:50:37Telephone encounter NoteTXT1.2.840.658884.1.13.104.2.7 .2.594547|[id number] for patient ryhl10224-7HdksVUHXLWPRTXCWtcjajpv d C-CDA narrative thjt744608345Sucyes P Robinson[address]TXTX[address] 60UXAQJRUMLSLKZMVYZKGAZJ6365-15-09 T14:50:371.2.840.887428.1.72.3.15| 1.2.840.783345.1.13.104.2.7.2.7278 [id number] Andriy Fuentes [facility] 2023-10-24 11:37:27 mOtCD3672Ky+GBtBEQj6 X8y63OmefBxXaa cFvFEHGP6AAdICcmCQqtwwOWiS1Y045668 -03-14T11:37:27 Patient reports being 6 weeks and began cramping this AM with no discharge. Patient has not had first appointment yet with OB which is scheduled for the . B4Qxmpormxolvvhz signed by Manda Harrell, BILLIE at 10/24/2023 11:38 AM SUE84185-1Qjxaairss department Triage fmulOZ8581-01-65J60:38:44[facility] Triage noteTXT1.2.840.571853.1.13.104.2.7 .2.177384|[id number] for patient ixsp75732-9Zkgrbmyax department NoteLNNARRATIVEFormatted C-CDA narrative fgzc269821953Sowg M Hayes [address]TXTX[address] 01MJJXJIZJAWUELTWUKRJBOR1914-72-48 T11:38:441.2.840.365609.1.72.3.15| 1.2.840.807807.1.13.104.2.7.2.7278 [id number] Manda Harrell RN [facility] 2023-08-13 11:31:01 Ugz9BefZTcRuT/OedFFe nonprofit financial controller+qW2QKpmRZax y3eFwfvLRfykoBL76rtg0vaJctjEST7210 -01-02T11:31:01 Maylin Zuniga is a 23 year old femaleovarian cysts on one or two ovaries x SeptemberPatient called to schedule appt with PGY.Please contact pt at [phone] (home) 87666-1Pvblvkwwf encounter IsjuUC9103-26-46C84:31:38Telephone encounter NoteTXT1.2.840.246123.1.13.104.2.7 .2.002554|[id number] for patient dlmb18205-4KefcBOARWDFWYHTIbnzsbhp d C-CDA narrative kmlz767845365Foelhydzb L [address] OfevQopkjsdviAhpzohlrqHUST61473673 56XUYSXLQTDYSCTTSFTEEQTO7612-88-13 T11:31:381.2.840.884355.1.72.3.15| 1.2.840.283243.1.13.104.2.7.2.7278 [id number] Avelina Johnson [facility] 2023-04-24 12:05:28 QXhUX0rvFqIDqgiKc9La Umojo3IoNoe7fd WWRShvkAS6x08hLL7Rk2jdEy2GY3hv5427 -09-13T12:05:28 Pt left before obtaining discharge paperwork. 48656-1Nchbhspbt department MmkzJJ7359-37-67Q63:05:42Emergency department NoteTXT1.2.840.594691.1.13.104.2.7 .2.881906|8938381043JMVpynbvfhc for patient iipk40085-9DqyeJO167915196Kvmltqo Fief RN[address]TXTX[address] 77VNPZNMLQTVFGYDLKBNWTPJ1326-06-50 T12:05:421.2.840.190530.1.72.3.15| 1.2.840.937830.1.13.104.2.7.2.7278 [id number] Anne Freemanwon WISE [facility] 2023-04-24 10:09:17 WWe6xO1jomkdS4JKe2vr z6jQtUYBaQZuOU qO0XAI1gCoIPcJabgVIOFyJk3akV1w7004 -09-13T10:09:17 Patient states "I have one positive test and one negative test for . So I just wanted to make sure."Patient here for confirmation. 21991-5Qzxgexzfo department Triage bnztIS7696-49-00J18:09:58[facility] Triage noteTXT1.2.840.719439.1.13.104.2.7 .2.282491|[id number] for patient hcpm35508-2Vbdjospob department OmsiKA841213924Jglqk S Cryer RN[id number] 06RMWPNIUXBIKWBAGMUSPWEN0295-99-12 T10:09:581.2.840.043479.1.72.3.15| 1.2.840.920047.1.13.104.2.7.2.7278 [id number] Amanda Hoang RN [facility] 2023-04-08 08:38:40 cnfVTGo1PYbZAdCtlvGZ lnte3a/4Inm3V6 3bFmRyHMqLCwEntkyQV+8o1ntRmlGL5426 -08-28T08:38:40 Spoke with patient, verbalized understanding medication is at the pharmacy. 56023-4Llbxaaabh encounter CdecDV9106-33-12V83:40:04Telephone encounter NoteTXT1.2.840.180585.1.13.104.2.7 .2.758408|1485225419YIZornhubqo for patient hiev68735-1HvtqEE846561537Smzcip L Reid [address] 43VWHAPRZQSOCRVZHYYDOEVE9551-13-80 T08:40:041.2.840.731088.1.72.3.15| 1.2.840.185709.1.13.104.2.7.2.7278 [id number] Nora Alonso RN [facility] 2023-04-04 16:31:40 JHiPoa9CRAbGb6QNyh6Q yglWeZaVOQPpGe fHrvy53EGUmorHKce00PhvZEQC9KsO8468 -08-24T16:31:40 I have sent nausea medications to the pharmacyPlease let patient know 27071-9Eggcxqcic encounter ZojbXH1075-22-54O15:32:32Telephone encounter NoteTXT1.2.840.320640.1.13.104.2.7 .2.023471|[id number] for patient xmva86949-9KezqQVWOWREFXD[address]TXTX[address] 71ZTCINOMQFOZCTALYLFQZFH8027-10-96 T16:32:321.2.840.444056.1.72.3.15| 1.2.840.353517.1.13.104.2.7.2.7278 [id number] [facility] 2023-04-01 13:30:00 PP3Au42C4UYWbnPU8gB9 OydUVNhzHRozUI ue431GwIYd2YrU3TxInXSV9lQdjfto7666 -08-21T13:30:00 Images from the original note were not included.Venipuncture collection performed by clean technique on the left anticubitus. Total of 1 attempts were made. Slight pressure and a bandage/dressing were applied to the site(s). The patient experienced no complications. The following specimens were processed according to instructions and sent to [facility] laboratories per lab order on 04/01/2023: LT BLUE SST 3 RED LAV 1 PPT DK GREEN (LiHep) DK GREEN (SodH) KRISHNAN DK BLUE (K2) DK BLUE (S) ACD Blood Culture NIPT/NTD 47719-9Nychu HlxfLQ7288-10-06Q45:37:41Nurse NoteTXT1.2.840.468580.1.13.104.2.7 .2.184451|[id number] for patient byil27621-2Yedsy NoteUT[address] IrrdPocpaylgdDinxhanfmOBMW81233963 41EJTTPPDEWYZPRKRCDMGZCR3785-37-29 T13:37:411.2.840.860273.1.72.3.15| 1.2.840.989135.1.13.104.2.7.2.7278 [id number] [facility] 2023-03-13 14:39:33 77zyHa0tsfpOUjXrugTR 2otAP9zRdHhq3m Zxxr3DzP6PJt4HLE2D4Gp9IIHakyfu6513 -08-02T14:39:33 Rx sent, let patient know, and to follow-up as scheduled. 93325-8Njdwvuuch encounter XjxpSY5770-79-16N50:39:33Telephone encounter NoteTXT1.2.840.774743.1.13.104.2.7 .2.514766|[id number] for patient nbev95008-8RxuoIASCTXDGQW[address]TXTX[address] 55SANAGACZSWALOVDDCQLQKH7971-70-97 T14:39:331.2.840.596066.1.72.3.15| 1.2.840.039257.1.13.104.2.7.2.7278 [id number] [facility] 2023-03-11 08:25:31 z2wCfqOfVj1KgvW2FWg+ ApM2JuLp2zDDzc 1j4TaN7OvYEFLc4k6ISx3JNy5hB+ku8852T08:25:31 NICOLE 02/14/23NOV 03/14/23LRD 02/14/23Routing to correct pool 90871-3Wojdsvawl encounter NaciAE3567-18-51Y18:26:31Telephone encounter NoteTXT1.2.840.672336.1.13.104.2.7 .2.447798|[id number] for patient adct84886-3AwtyPYFN-PAHCPIJSJJRP-L [address] 40FGWRSWJNRHGGYQVDPZHDGV9385-54-80 T08:26:311.2.840.765976.1.72.3.15| 1.2.840.160470.1.13.104.2.7.2.7278 [id number] PN-PSYCHIATRY [facility]
--- NOTE | 2023-11-18 21:44 | RAD REPORT ---
EXAM DESCRIPTION: US - Transvaginal OB - 11/18/2023 9:37 pm CLINICAL HISTORY: VAGINAL BLEEDING COMPARISON: <Comparisons> FINDINGS: A single gestational sac is seen within the uterus. The shape of the sac is within normal limits for gestational age. Within the sac is a single pole with crown-rump length of 17 mm, co rrelating to estimated gestational age of 8 weeks and 1 day. Estimated date of delivery is 06/28/2024 . Heart rate is 169. The placenta is not yet developed due to early gestational age. The maternal adnexa are within normal limits. 5 cm benign-appearing right ovarian cyst. Normal Dopple r blood flow was demonstrated to the right ovary. The left ovary is obscured by bowel gas. IMPRESSION: Single live early intrauterine gestation with estimated gestational age of 8 weeks 1 day , GILMAR 06/28/2024. 5 cm right ovarian cyst.
[2023-11-18 21:50] LABS: Specific Gravity 1.007 (1.005-1.030)
[2023-11-18 21:57] LABS: Absolute Basophils 0.1 K/uL (0-0.5); Absolute Eosinophils 0.4 K/uL (0-0.5); Absolute Lymphocytes (CBC) 2.8 K/uL (0.7-4.9); Absolute Monocytes 0.6 K/uL (0.1-1.3); Absolute Neutrophil 7.5 K/uL (1.8-8.0); Basophils % 0.5 % (0-1.3); Eosinophils % 3.2 % (0-4.4); Hematocrit 38.2 % (36.0-45.0); Hemoglobin 13.1 g/dL (12.0-15.0); Lymphocytes % 24.7 % (15.3-44.8); MCH 31.7 pg (27.0-35.0); MCHC 34.3 g/dL (32.0-36.0); MCV 92.3 fL (80-100); MPV 9.3 fL (7.6-11.3); Monocytes % 5.4 % (3.3-12.3); Neutrophils % 66.2 % (41.7-73.7); Platelets 208 thou/uL (152-406); RBC Red Blood Cell Count 4.14 M/uL (3.86-4.86); Red Cell Distribution Width 12.5 % (12.1-15.2)
[2023-11-18 21:59] LABS: Albumin 3.5 g/dL (3.4-5.0); Albumin/Globulin Ratio 1.1 (1.1-1.8); Anion Gap 5.4 mEq/L (5.0-15.0); Bilirubin Total 0.3 mg/dL (0.2-1.0); Globulin 3.3 g/dL (2.3-3.5); Potassium 3.4 mEq/L (3.5-5.1); Protein, Total 6.8 g/dL (6.4-8.2)
--- NOTE | 2023-11-18 22:54 | ER ---
Nurse's Notes [facility] Name: Maylin Zuniga Age: 23 yrs Sex: Female : 2000 Arrival Date: 11/18/2023 Time: 20:17 Bed 5 Private MD: Diagnosis: related conditions, unspecified, first trimester;Vaginal bleeding in , threatened miscarriage Presentation: 11/17 20:45 Chief complaint: Patient states: abdominal cramping. pt states she is almost 9 weeks as6 gestation. Coronavirus screen: At this time, the client does not indicate any symptoms associated with coronavirus-19. Ebola Screen: No symptoms or risks identified at this time. Initial Sepsis Screen: Does the patient meet any 2 criteria? No. Patient's initial sepsis screen is negative. Does the patient have a suspected source of infection? No. Patient's initial sepsis screen is negative. Risk Assessment: Do you want to hurt yourself or someone else? Patient reports no desire to harm self or others. Onset of symptoms was November 18, 2023. 20:45 Acuity: VINNY 3 as6 20:45 Method Of Arrival: Ambulatory as6 HEALTHCARE RECRUITER: 20:44 LMP 09/18/2023, unknown as6 Historical: - Allergies: 20:45 NKDA; as6 - PMHx: 20:45 Anxiety; depressive disorder; ovarian cyst rupture (depressive disorder); as6 - PSHx: 20:45 None; as6 - Immunization history:: Adult Immunizations up to date. - Infectious Disease History:: Denies. - Social history:: Smoking status: Patient denies any tobacco usage or history of. - Family history:: not pertinent. Screenin:11 [facility] ED Fall Risk Assessment (Adult) History of falling in the last 3 months, bm8 including since admission No falls in past 3 months (0 pts) Confusion or Disorientation No (0 pts) Intoxicated or Sedated No (0 pts) Impaired Gait No (0 pts) Mobility Assist Device Used No (0 pt) Altered Elimination No (0 pt) Score/Fall Risk Level 0 - 2 = Low Risk Oriented to surroundings, Maintained a safe environment, Educated pt \T\ family on fall prevention, incl call for assistance when getting out of bed. Abuse screen: Denies threats or abuse. Nutritional screening: No deficits noted. Tuberculosis screening: No symptoms or risk factors identified. Assessment: 21:11 Obstetrical Assessment: General assessment: awake and alert, skin warm and dry, bm8 respirations even and unlabored, Rupture of membranes noted. Reassessment: Patient appears in no apparent distress at this time. Patient and/or family updated on plan of care and expected duration. Pain level reassessed. Patient is alert, oriented x 3, equal unlabored respirations, skin warm/dry/pink. Patient denies pain at this time. General: Appears in no apparent distress. comfortable. Pain: Complains of pain in right lower quadrant Pain does not radiate. Pain currently is 6 out of 10 on a pain scale. Neuro: Level of Consciousness is awake, alert, obeys commands, Oriented to person, place, time, situation, Appropriate for age. Cardiovascular: Capillary refill < 3 seconds Patient's skin is warm and dry. GI: No deficits noted. No signs and/or symptoms were reported involving the gastrointestinal system. : Reports cramping, in right lower quadrant(s) vaginal bleeding that is spotty. EENT: No deficits noted. No signs and/or symptoms were reported regarding the EENT system. 22:49 Reassessment: Patient appears in no apparent distress at this time. No changes from bm8 previously documented assessment. Patient and/or family updated on plan of care and expected duration. Pain level reassessed. Patient is alert, oriented x 3, equal unlabored respirations, skin warm/dry/pink. Patient denies pain at this time. Vital Signs: 20:44 BP 123 / 87; Pulse 86; Resp 18 S; Temp 97.8(TE); Pulse Ox 99% on R/A; Weight 60.78 kg as6 (R); Height 5 ft. 4 in. (R); Pain 6/10; 21:11 BP 118 / 69; Pulse 81; Resp 17; Temp 97.8; Pulse Ox 100% ; Pain 6/10; bm8 22:49 BP 110 / 64; Pulse 70; Resp 17; Temp 97.8; Pulse Ox 100% ; Pain 3/10; bm8 20:44 Body Mass Index 23.00 (60.78 kg, 162.56 cm) as6 20:44 Pain Scale: Adult as6 21:11 Pain Scale: Adult bm8 22:49 Pain Scale: Adult bm8 Cantril Coma Score: 11/18 21:18 Eye Response: spontaneous(4). Motor Response: obeys commands(6). Verbal Response: sp4 oriented(5). Total: 15. ED Course: 11/17 20:21 Patient arrived in ED. ra3 20:26 Marco Gonzalez MD is Attending Physician. sp4 20:45 Arm band placed on. as6 20:46 Triage completed. as6 21:11 Gato Leblanc, RN is Primary Nurse. bm8 21:11 Patient has correct armband on for positive identification. Placed in gown. Bed in low bm8 position. Call light in reach. Side rails up X 1. Adult w/ patient. Provided Education on: post ER care. Pulse ox on. NIBP on. Door closed. Noise minimized. Visitors limited. Warm blanket given. Verbal reassurance given. 21:11 No provider procedures requiring assistance completed. Inserted saline lock: 20 gauge bm8 in right antecubital area, using aseptic technique. Blood collected. 21:39 Transvaginal OB In Process Unspecified. EDMS 23:03 IV discontinued, intact, bleeding controlled, No redness/swelling at site. Pressure km8 dressing applied. Administered Medications: 23:03 Drug: Acetaminophen PO 1000 mg PO once Route: PO; km8 23:03 Follow up: Response: Medication administered at discharge. km8 Medication: 21:11 VIS not applicable for this client. bm8 Outcome: 22:53 Discharge ordered by . sp4 23:03 Discharged to home ambulatory, km8 23:03 Condition: good 23:03 Discharge instructions given to patient, Instructed on discharge instructions, follow up and referral plans. Demonstrated understanding of instructions, follow-up care, 23:04 Patient left the ED. km8 Signatures: Dispatcher [employer] EDEulalio Barrera, RN BILLIE as6 Marco Gonzalez MD MD sp4 Colleen Mina RN RN km8 Sri Johnston ra3 Gato Leblanc, RN RN bm8
--- NOTE | 2023-11-18 22:54 | EDPHYS ---
Physician Documentation [facility] Name: Maylin Zuniga Age: 23 yrs Sex: Female : 2000 Arrival Date: 11/18/2023 Time: 20:17 Bed 5 Private MD: ED Physician Marco Gonzalez HPI: 11/17 20:26 This 23 yrs old Female presents to ER via Unassigned with complaints of sp4 Vaginal Bleeding, + Preg <12wks - abd pain. 11/18 21:18 Patient is a at A 8 weeks 5 days by last sonogram, presents with small sp4 amount of vaginal bleeding starting last night associated with lower abdominal discomfort. T RAIL TURNER: 11/17 20:44 LMP 09/18/2023, unknown as6 Historical: - Allergies: 20:45 NKDA; as6 - PMHx: 20:45 Anxiety; depressive disorder; ovarian cyst rupture (depressive disorder); as6 - PSHx: 20:45 None; as6 - Immunization history:: Adult Immunizations up to date. - Infectious Disease History:: Denies. - Social history:: Smoking status: Patient denies any tobacco usage or history of. - Family history:: not pertinent. ROS: 11/18 21:18 Constitutional: Negative for fever, chills, and weight loss, : Positive vaginal sp4 bleeding and pelvic discomfort All other systems are negative, Exam: 21:18 Constitutional: This is a well developed, well nourished patient who is awake, alert, sp4 and in no acute distress. Head/Face: Normocephalic, atraumatic. Eyes: Pupils equal round and reactive to light, extra-ocular motions intact. Lids and lashes normal. Conjunctiva and sclera are not injected. Cornea within normal limits. Periorbital areas with no swelling, redness, or edema. ENT: Nares patent. No nasal discharge, no septal abnormalities noted. Tympanic membranes are normal and external auditory canals are clear. Oropharynx with no redness, swelling, or masses, exudates, or evidence of obstruction, uvula midline. Mucous membranes moist. Neck: Trachea midline, no thyromegaly or masses palpated, and no cervical lymphadenopathy. Supple, full range of motion without nuchal rigidity, or vertebral point tenderness. Chest/axilla: Normal chest wall appearance and motion. Nontender with no deformity. No lesions are appreciated. Cardiovascular: Regular rate and rhythm with a normal S1 and S2. No gallops, murmurs, or rubs. Normal PMI, no JVD. No pulse deficits. Respiratory: Lungs have equal breath sounds bilaterally, clear to auscultation and percussion. No rales, rhonchi or wheezes noted. No increased work of breathing, no retractions or nasal flaring. Abdomen/GI: Soft, with normal bowel sounds. No distension or tympany. No guarding or rebound. No evidence of tenderness throughout. Back: No spinal tenderness. No costovertebral tenderness. Skin: Warm, dry with normal turgor. Normal color with no rashes, no lesions, and no evidence of cellulitis. MS/ Extremity: Pulses equal, no cyanosis. Neurovascular intact. Full, normal range of motion. Neuro: Awake and alert, GCS 15, oriented to person, place, time, and situation. Cranial nerves II-XII grossly intact. Motor strength 5/5 in all extremities. Sensory grossly intact. Psych: Awake, alert, with orientation to person, place and time. Behavior, mood, and affect are within normal limits Vital Signs: 11/17 20:44 BP 123 / 87; Pulse 86; Resp 18 S; Temp 97.8(TE); Pulse Ox 99% on R/A; Weight 60.78 kg as6 (R); Height 5 ft. 4 in. (R); Pain 6/10; 21:11 BP 118 / 69; Pulse 81; Resp 17; Temp 97.8; Pulse Ox 100% ; Pain 6/10; bm8 22:49 BP 110 / 64; Pulse 70; Resp 17; Temp 97.8; Pulse Ox 100% ; Pain 3/10; bm8 20:44 Body Mass Index 23.00 (60.78 kg, 162.56 cm) as6 20:44 Pain Scale: Adult as6 21:11 Pain Scale: Adult bm8 22:49 Pain Scale: Adult bm8 [place] Coma Score: 11/18 21:18 Eye Response: spontaneous(4). Motor Response: obeys commands(6). Verbal Response: sp4 oriented(5). Total: 15. MDM: 11/17 20:27 Patient medically screened. sp4 22:52 ED course: EXAM DESCRIPTION: US - Transvaginal OB - 11/18/2023 9:37 pm CLINICAL HISTORY: sp4 VAGINAL BLEEDING COMPARISON: FINDINGS: A single gestational sac is seen within the uterus. The shape of the sac is within normal limits for gestational age. Within the sac is a single pole with crown-rump length of 17 mm, correlating to estimated gestational age of 8 weeks and 1 day. Estimated date of delivery is 06/28/2024. Heart rate is 169. The placenta is not yet developed due to early gestational age. The maternal adnexa are within normal limits. 5 cm benign-appearing right ovarian cyst. Normal Doppler blood flow was demonstrated to the right ovary. The left ovary is obscured by bowel gas. IMPRESSION: Single live early intrauterine gestation with estimated gestational age of 8 weeks 1 day, GILMAR 06/28/2024. 5 cm right ovarian cyst. . 11/18 21:18 Differential diagnosis: STD, ectopic . Data reviewed: vital signs, nurses sp4 notes, lab test result(s), radiologic studies, ultrasound. ED course: Patient has findings of single live early intrauterine gestation at 8 weeks 1 day. heart tones 169. Incidental finding of 5 cm right ovarian cyst. Patient advised to see her T RAIL TURNER in 2 days for hCG level check. Otherwise stable for discharge home. 11/17 20:27 Order name: CBC with Diff; Complete Time: 22:46 sp4 11/17 20:27 Order name: CMP; Complete Time: 22:46 sp4 11/17 20:27 Order name: Test, Urine; Complete Time: 22:46 sp4 11/17 20:27 Order name: Abo/rh Typing; Complete Time: 21:22 sp4 11/17 20:48 Order name: HCG-Quantitative; Complete Time: 22:46 sp4 11/17 21:17 Order name: Transvaginal OB; Complete Time: 22:46 EDMS 11/17 20:27 Order name: IV Saline Lock; Complete Time: 21:16 sp4 11/17 20:27 Order name: Labs collected and sent; Complete Time: 21:16 sp4 Administered Medications: 11/17 23:03 Drug: Acetaminophen PO 1000 mg PO once Route: PO; km8 23:03 Follow up: Response: Medication administered at discharge. km8 Disposition Summary: 11/18/23 22:53 Discharge Ordered Problem: new sp4 Symptoms: have improved sp4 Condition: Stable sp4 Diagnosis - related conditions, unspecified, first trimester sp4 - Vaginal bleeding in , threatened miscarriage sp4 Followup: sp4 - With: Private Physician - When: 1 - 2 days - Reason: Recheck today's complaints Discharge Instructions: - Discharge Summary Sheet sp4 - Threatened Miscarriage, [id number] sp4 Forms: - Patient Portal Instructions sp4 Signatures: Dispatcher [employer] EDEulalio Barrera RN RN as6 Marco Gonzalez MD MD sp4 Colleen Mina RN RN km8 Corrections: (The following items were deleted from the chart) 20:49 20:49 QUANTITATIVE HCG+C.LAB.BRZ ordered. EDMS EDMS 21:17 20:27 OB Limited+US.RAD.BRZ ordered. EDMS EDMS
[2023-11-18] MEDS ORDERED: ACETAMINOPHEN 500 MG TAB ONE (22:57)
[2023-11-19 05:03] VITALS: BP 110/64; TEMP 97.8; O2SAT 100
== END 2023-11-18 23:04 | disposition home or self-care (01) ==
LOC: ER 20:17
DX: O20.0 Threatened abortion (principal)
CPT/HCPCS: 36415; 76817; 80053; 81025; 84702; 85025; 86900; 86901; 99284

== ENCOUNTER 2023-11-23 21:18 | Emergency (ER) | payer OTHER ==
--- OUTSIDE RECORDS SUMMARY | 2023-11-23 21:25 | XMS REPORT | Continuity of Care Document ---
Author Name Unknown Address [address] [facility] [address] [place] [id number] [facility] [address] [facility] [address] [place] [address] Care Team Providers Care Vp Of Marketing Name Role Phone BOWERSDELMYELIZA Primary Care Physician Unavailab LESLIE Austin Attending Clinician Unavail able Leslie Diane Attending Clinician + CARLA VAUGHN Attending Clinician UnavailCarla Gamboa CNM Attending Clinician [phone] ARNOLD BLUM Attending Clinician Unavailable Arnold Blum MD Attending Clinician [phone] Lawson COCHRAN Attending Clinician Unavailable Sydney Lubin MD Attending Clinician [phone] Katarina Attending Clinician Unavailable NACHO NGUYEN Attending Clinician Unavailable Nacho Nguyen MD Attending Clinician [phone] Pgy3 Attending Clinician Unavailable SYDNEY LUBIN Attending Clinician Unavailable BRUNA ARRINGTON Attending Clinician Unavailable BRUNA ARRINGTON Attending Clinician Unavailable Doctor Unassigned, [place] Attending Clinician U navailable Pgy2 Attending Clinician Unavailable Trevor PORTFOLIO ASSISTANT, Gretchen Attending Clinician [phone] ELIZA BOWERS Attending Clinician Unavailable RAHEL DICKSON Attending Clinician Unavailable Randolph PORTFOLIO ASSISTANT, Rahel Attending Clinician [phone] Robinson PORTFOLIO ASSISTANT, Eliza Attending Clinician + [phone], [facility] Attending Clinician Unavailable YAW BRO Attending Clinician Unavailable Yaw Bro DO Attending Clinician +[phone] Nurse, [facility] Attending Clinician Un available Unknown, Attending Attending Clinician Unavailab le UNKNOWN, ATTENDING Attending Clinician Unavailab BAILEE Vivar Attending Clinician Unavailable [facility]ending [facility]ician Erica vailable ROSALES CHAPIN Attending Clinician UnavailROSALES [place] Attending Clinician UnavailROSALES Helm Attending Clinician Unavailradha Barrientos PORTFOLIO ASSISTANT, Jacob Love Attending Clinician [phone] JACOB BARRIENTOS Attending Clinician Unavailab le Visit, [facility] Nurse Attending Clinician Unava ilable ALIVIA LEE Attending Clinician Unavaila ble Jesus PORTFOLIO ASSISTANT, Alivia Liriano Attending Clinician [phone] CINDY APARICIO Attending Clinician Unavailradha Jones RN, Rayne Gdooy Attending Clinician Unavailab NI Mckeon Attending Clinician Unavailable Joel Matt DO Attending Clinician [phone] Alysia PORTFOLIO ASSISTANTElena Attending Clinician [phone] Provider, [facility] Attending Clinician Un available ELENA LOPEZ Attending Clinician Unavailable Fletcher Ramesh MD Attending Clinician [phone] Frank WISE, Ethel Attending Clinician Erica vailable Alvin Nobles Attending Clinician [phone] Katarina Admitting Clinician Unavailable NACHO NGUYEN Admitting Clinician Unavailable YAW BRO Admitting Clinician Unavailable Payers Payer Name Policy Type Policy Number Effective Date Expirati on Date Source MANAGED MEDICAID GENERIC NON-CONTRACT [id number] 2023 00:00:00 [place] [id number] 2023 00[place] [id number] [facility] [place] ST[place] [id number] 2020 00:00:00 [facility] [id number] 2019 00:00:00 Problems Condition Name Condition Details Condition Category Status Onset Date Resolution Date Last Treatment Date Treating Clinician Comments Source History of miscarriag e History of miscarriag e Disease Active 4-04 00:00: 00 [facility] Nausea/vom iting in Nausea/vom iting in Disease Active 4-04 00:00: 00 [facility] Chlamydia trachomati s infection of lower genitourin jeremy sites Chlamydia trachomati s infection of lower genitourin jeremy sites Disease Active 2-13 00:00: 00 [facility] Need for prophylact ic vaccinatio n and inoculatio n against influenza Need for prophylact ic vaccinatio n and inoculatio n against influenza Disease Active 24 00:00: 00 [facility] Feeling sad Feeling sad Disease Active 12-30 00:00: 00 [facility] Encounter for other general counseling or advice on contracept ion Encounter for other general counseling or advice on contracept ion Disease Active 12-16 00:00: 00 [facility] Absence of menstruati on Absence of menstruati on Disease Active 24 00:00: 00 [facility] Breast tenderness in female Breast tenderness in female Disease Active 24 00:00: 00 [facility] Class 1 obesity due to excess calories with serious comorbidit y and body mass index (BMI) of 34.0 to 34.9 in adult Class 1 obesity due to excess calories with serious comorbidit y and body mass index (BMI) of 34.0 to 34.9 in adult Disease Active 3-24 00:00: 00 [facility] BMI 34.0-34.9, adult BMI 34.0-34.9, adult Disease Active 2021-0 3-24 00:00: 00 [facility] Elevated blood pressure reading without diagnosis of hypertensi on Elevated blood pressure reading without diagnosis of hypertensi on Disease Active 10-02 00:00: 00 [facility] Depression during Depression during Disease Active 08-20 00:00: 00 Overview: Formattin g of this note might be different from the original. Reports stopped meds 10/15/23 reports stable mood [facility] Other depression Other depression Disease Active 08-20 00:00: 00 [facility] Nexplanon removal Nexplanon removal Disease Active 08-20 00:00: 00 [facility] Screening examinatio n for STD (sexually transmitte d disease) Screening examinatio n for STD (sexually transmitte d disease) Disease Active 08-20 00:00: 00 [facility] BMI 27.0-27.9, adult BMI 27.0-27.9, adult Disease Active 2018-08 0 00:00: 00 [facility] BMI 29.0-29.9, adult BMI 29.0-29.9, adult Disease Active 2018-08 016 00:00: 00 [facility] HPV vaccine counseling HPV vaccine counseling Disease Active 2018-08 0 00:00: 00 [facility] Over weight Over weight Disease Active 2018-08 016 00:00: 00 [facility] Lump or mass in breast Lump or mass in breast Disease Active 11-22 00:00: 00 [facility] Allergies, Adverse Reactions, Alerts Allergy Name Allergy Type Status Severity Reaction(s) Onset Date Inactive Date Treating Clinician Comments Source NO KNOWN ALLERGIE S Drug Class Active [facility] Social History Social Habit Start Date Stop Date Quantity Comments Source ASSERTION 2023-10-02 00:00:[address] [facility] Gender identity [facility] Alcohol intake 2023-11-14 00:00:00 2023-11-14 00:00:00 Current drinker of alcohol (finding) [facility] History of Social function 2023-02-14 00:00:00 2023-02-14 00:00:[address] [facility] Exposure to SARS-CoV-2 (event) 2022-12-24 00:00:00 2023-01-03 09:29:[address] [facility] History SDOH Alcohol Frequency 2023-01-01 00:00:00 2023-01-01 00:00:[address] [facility] History SDOH Alcohol Std Drinks 2023-01-01 00:00:00 2023-01-01 00:00:[address] [facility] History SDOH Alcohol Binge 2023-01-01 00:00:00 2023-01-01 00:00:[address] [facility] History SDOH Social Connections Phone 2023-01-01 00:00:00 2023-01-01 00:00:[address] [facility] History SDOH Social Connections Get Together 2023-01-01 00:00:00 2023-01-01 00:00:[address] [facility] History SDOH Social Connections Buddhist 2023-01-01 00:00:00 2023-01-01 00:00:00 3 [facility] SDOH Social Connections Membership 2023-01-01 00:00:00 2023-01-01 00:00:[address] [facility] History SDOH Social Connections Meetings 2023-01-01 00:00:00 2023-01-01 00:00:[address] [facility] History SDOH Social Connections Living 2023-01-01 00:00:00 2023-01-01 00:00:[address] [facility] History SDOH Physical Activity DPW 2023-01-01 00:00:00 2023-01-01 00:00:[address] [facility] History SDOH Physical Activity MPS 2023-01-01 00:00:00 2023-01-01 00:00:[address] [facility] History SDOH Stress 2023-01-01 00:00:00 2023-01-01 00:00:[address] [facility] History SDOH Financial 2023-01-01 00:00:00 2023-01-01 00:00:[address] [facility] History SDOH Food Worry 2023-01-01 00:00:00 2023-01-01 00:00:[address] [facility] History SDOH Food Scarcity 2023-01-01 00:00:00 2023-01-01 00:00:[address] [facility] History SDOH Transport Med 2023-01-01 00:00:00 2023-01-01 00:00:[address] [facility] History SDOH Transport Non-Med 2023-01-01 00:00:00 2023-01-01 00:00:[address] [facility] History SDOH Housing Unable to Pay 2023-01-01 00:00:00 2023-01-01 00:00:[address] [facility] History SDOH Housing Places Lived 2023-01-01 00:00:00 2023-01-01 00:00:[address] [facility] History SDOH Housing Homeless Last Year 2023-01-01 00:00:00 2023-01-01 00:00:[address] [facility] Tobacco use and exposure 2022-12-27 00:00:00 2022-12-27 00:00:00 Smokeless tobacco non-user [facility] Alcohol Comment 2021-11-02 00:00:00 2021-11-02 00:00:[address] [facility] Sex Assigned At 2001 00:00:00 2001 00:00:[address] [facility] Smoking Status Start Date Stop Date Source Never smoked tobacco [facility] Medications Ordered Medication Name Filled Medication Name Start Date Stop Date Current Medication? Ordering Clinician Indication Dosage Frequency Signature (SIG) Comments Components Source proMETHazin e 25 mg tablet 11-13 00:00: 00 Yes [id number] 25mg Take 1 tablet by mouth every 6 (six) hours as needed for Nausea and Vomiting (N/V). [facility] PNV 67-iron ps-folate no.1-dha (VITAFOL ULTRA) 29 mg iron- 1 mg-200 mg Cap 11-13 00:00: 00 Yes [id number] 1{each} Take 1 Each by mouth in the morning. [facility] KCL (KLOR-CON M20) tablet 20 mEq 11-11 04:45: 00 11-11 04:46 :00 No 20meq 20 mEq, Oral, ONCE, 1 dose, On Sat11/11/23 at 2345, PABLO [facility] NaCl 0.9% (NS) IV infusion 1,000 mL 11-11 04:15: 00 Yes 1000mL at 999 mL/hr, Intravenou s, CONTINUOUS , Starting on Sat11/11/23 at 2315, Until Discontinu ed, Routine [facility] ondansetron (ZOFRAN (PF)) injection 4 mg 11-11 03:15: 00 11-11 03:20 :00 No 4mg 4 mg, Slow IV Push, ONCE, 1 dose, On Sat11/11/23 at 2215, PABLO [facility] doxylamine- pyridoxine, vit B6, (DICLEGIS) 10-10 mg per tablet 11-10 00:00: 00 Yes [id number] 2{tbl} Take 2 tablets by mouth at bedtime as needed for Nausea and Vomiting (N/V). [facility] ondansetron 4 mg tablet 08-20 00:00: 00 Yes [id number] 4mg Take 1 tablet by mouth every 8 (eight) hours as needed for Nausea and Vomiting (N/V). [facility] omeprazole 40 mg capsule 9-07 00:00: 00 Yes [id number] 40mg Take 1 capsule by mouth in the morning. [facility] ondansetron 8 mg tablet 8-24 00:00: 00 Yes [id number] 8mg Take 1 tablet by mouth every 8 (eight) hours as needed for Nausea and Vomiting (N/V). [facility] omeprazole 40 mg capsule - 00:00: 00 04-18 00:00 :00 No [id number] 40mg Take 1 capsule by mouth in the morning. [facility] VENLAFAXINE XR 37.5 mg 24 hr capsule 2023-0 8-02 00:00: 00 Yes [id number] 37.5mg TAKE 1 CAPSULE BY MOUTH DAILY WITH BREAKFAST. [facility] venlafaxine XR 37.5 mg 24 hr capsule -06 00:00: 00 03-13 00:00 :00 No [id number] 37.5mg Take 1 capsule by mouth daily with breakfast. [facility] SERTraline 25 mg tablet 01-03 00:00: 00 02-14 00:00 :00 No [id number] 25mg Take 1 tablet by mouth in the morning. [facility] naproxen (NAPROSYN) 500 mg tablet 01-03 00:00: 00 01-14 04:59 :00 No [id number] 500mg Take 1 tablet by mouth in the morning and 1 tablet in the evening. Take with meals. Do all this for 10 days. [facility] iopamidol (ISOVUE 370-500 mL) injection 100 mL 12-28 03:00: 00 12-28 03:00 :00 No [id number] 100mL 100 mL, Intravenou s, ONCE, 1 dose, On Sat12/27/22 at 2200, Routine [facility] norelgestro min-ethinyl estradiol (XULANE) 150-35 mcg/24 hr patch 5-11 00:00: 00 01-03 00:00 :00 No [id number] 1{patch } Apply 1 Patch to skin weekly. [facility] doxycycline hyclate 100 mg capsule 2-13 00:00: 00 10-02 05:59 :00 No [id number] 100mg Take 1 capsule by mouth every 12 (twelve) hours for 7 days. [facility] norelgestro min-ethinyl estradiol 150-35 mcg/24 hr patch 2-10 00:00: 00 04-01 00:00 :00 No [id number] 1{patch } Apply 1 Patch to skin weekly. [facility] norgestimat e-ethinyl estradioL 0.18/0.215/ 0.25 mg-25 mcg tablet 7- 00:00: 00 09-21 00:00 :00 No [id number] 1{tbl} Take 1 tablet by mouth daily. [facility] norgestimat e-ethinyl estradioL 0.18/0.215/ 0.25 mg-25 mcg tablet - 00:00: 00 02-15 00:00 :00 No [id number] 1{tbl} Take 1 tablet by mouth daily. [facility] albuterol 90 mcg/actuati on inhaler 10-16 00:00: 00 01-03 00:00 :00 No [id number] 6{puff} Inhale 6 Puffs every 4 (four) hours as needed for Wheezing or Shortness of Breath. [facility] benzonatate 100 mg capsule 10-16 00:00: 09-21 00:00 :00 No [id number] 100mg Take 1 capsule by mouth 3 (three) times daily as needed for Cough. [facility] Immunizations Ordered Immunization Name Filled Immunization Name Date Status Comments Source Influenza Virus Vaccine Quad .5 mL IM 6+ MO 2021-11-02 00:00:[address] [facility] Influenza Virus Vaccine Quad .5 mL IM 6+ MO 2021-11-02 00:00:[address] [facility] Influenza Virus Vaccine Quad .5 mL IM 6+ MO 2021-11-02 00:00:[address] [facility] Influenza Virus Vaccine Quad .5 mL IM 6+ MO 2021-11-02 00:00:[address] [facility] Influenza Virus Vaccine Quad .5 mL IM 6+ MO 2021-11-02 00:00:[address] [facility] Influenza Virus Vaccine Quad .5 mL IM 6+ MO 2021-11-02 00:00:[address] [facility] Influenza Virus Vaccine Quad .5 mL IM 6+ MO 2021-11-02 00:00:[address] [facility] Influenza Virus Vaccine Quad .5 mL IM 6+ MO 2021-11-02 00:00:[address] [facility] Influenza Virus Vaccine Quad .5 mL IM 6+ MO 2021-11-02 00:00:[address] [facility] Influenza Virus Vaccine Quad .5 mL IM 6+ MO 2021-11-02 00:00:[address] [facility] Influenza Virus Vaccine Quad .5 mL IM 6+ MO 2021-11-02 00:00:[address] [facility] Influenza Virus Vaccine Quad .5 mL IM 6+ MO 2021-11-02 00:00:[address] [facility] Influenza Virus Vaccine Quad .5 mL IM 6+ MO 2021-11-02 00:00:[address] [facility] Influenza Virus Vaccine Quad .5 mL IM 6+ MO 2021-11-02 00:00:[address] [facility] Influenza Virus Vaccine Quad .5 mL IM 6+ MO 2021-11-02 00:00:[address] [facility] Influenza Virus Vaccine Quad .5 mL IM 6+ MO 2021-11-02 00:00:[address] [facility] Influenza Virus Vaccine Quad .5 mL IM 6+ MO 2021-11-02 00:00:[address] [facility] Influenza Virus Vaccine Quad .5 mL IM 6+ MO 2021-11-02 00:00:[address] [facility] Influenza Virus Vaccine Quad .5 mL IM 6+ MO 2021-11-02 00:00:[address] [facility] Influenza Virus Vaccine Quad .5 mL IM 6+ MO 2021-11-02 00:00:[address] [facility] Influenza Virus Vaccine Quad .5 mL IM 6+ MO 2021-11-02 00:00:[address] [facility] Influenza Virus Vaccine Quad .5 mL IM 6+ MO 2021-11-02 00:00:[address] [facility] Influenza Virus Vaccine Quad .5 mL IM 6+ MO 2021-11-02 00:00:[address] [facility] Influenza Virus Vaccine Quad .5 mL IM 6+ MO 2021-11-02 00:00:[address] [facility] Influenza Virus Vaccine Quad .5 mL IM 6+ MO 2021-11-02 00:00:[address] [facility] Influenza Virus Vaccine Quad .5 mL IM 6+ MO 2021-11-02 00:00:[address] [facility] Influenza Virus Vaccine Quad .5 mL IM 6+ MO (FLUZONE/FLULAVAL/F LUARIX) 2021-11-02 00:00:[address] [facility] Influenza Virus Vaccine Quad .5 mL IM 6+ MO (FLUZONE/FLULAVAL/F LUARIX) 2021-11-02 00:00:[address] [facility] Influenza Virus Vaccine Quad .5 mL IM 6+ MO (FLUZONE/FLULAVAL/F LUARIX) 2021-11-02 00:00:[address] [facility] SARS-COV-2 COVID-19 PFIZER VACCINE 2021-03-27 00:00:[address] [facility] SARS-COV-2 COVID-19 PFIZER VACCINE 2021-03-27 00:00:[address] [facility] SARS-COV-2 COVID-19 PFIZER VACCINE 2021-03-27 00:00:[address] [facility] SARS-COV-2 COVID-19 PFIZER VACCINE 2021-03-27 00:00:[address] [facility] SARS-COV-2 COVID-19 PFIZER VACCINE 2021-03-27 00:00:[address] [facility] SARS-COV-2 COVID-19 PFIZER VACCINE 2021-03-27 00:00:[address] [facility] SARS-COV-2 COVID-19 PFIZER VACCINE 2021-03-27 00:00:[address] [facility] SARS-COV-2 COVID-19 PFIZER VACCINE 2021-03-27 00:00:[address] [facility] SARS-COV-2 COVID-19 PFIZER VACCINE 2021-03-27 00:00:[address] [facility] SARS-COV-2 COVID-19 PFIZER VACCINE 2021-03-27 00:00:[address] [facility] SARS-COV-2 COVID-19 PFIZER VACCINE 2021-03-27 00:00:[address] [facility] SARS-COV-2 COVID-19 PFIZER VACCINE 2021-03-27 00:00:[address] [facility] SARS-COV-2 COVID-19 PFIZER VACCINE 2021-03-27 00:00:[address] [facility] SARS-COV-2 COVID-19 PFIZER VACCINE 2021-03-27 00:00:[address] [facility] SARS-COV-2 COVID-19 PFIZER VACCINE 2021-03-27 00:00:[address] [facility] SARS-COV-2 COVID-19 PFIZER VACCINE 2021-03-27 00:00:[address] [facility] SARS-COV-2 COVID-19 PFIZER VACCINE 2021-03-27 00:00:[address] [facility] SARS-COV-2 COVID-19 PFIZER VACCINE 2021-03-27 00:00:[address] [facility] SARS-COV-2 COVID-19 PFIZER VACCINE 2021-03-27 00:00:[address] [facility] SARS-COV-2 COVID-19 PFIZER VACCINE 2021-03-27 00:00:[address] [facility] SARS-COV-2 COVID-19 PFIZER VACCINE 2021-03-27 00:00:[address] [facility] SARS-COV-2 COVID-19 PFIZER VACCINE 2021-03-27 00:00:[address] [facility] SARS-COV-2 COVID-19 PFIZER VACCINE 2021-03-27 00:00:[address] [facility] SARS-COV-2 COVID-19 PFIZER VACCINE 2021-03-27 00:00:[address] [facility] SARS-COV-2 COVID-19 PFIZER VACCINE 2021-03-27 00:00:[address] [facility] SARS-COV-2 COVID-19 PFIZER VACCINE 2021-03-27 00:00:[address] [facility] SARS-COV-2 COVID-19 PFIZER VACCINE 2021-03-27 00:00:[address] [facility] SARS-COV-2 COVID-19 PFIZER VACCINE 2021-03-27 00:00:[address] [facility] SARS-COV-2 COVID-19 PFIZER VACCINE 2021-03-27 00:00:[address] [facility] SARS-COV-2 COVID-19 PFIZER VACCINE 2021-03-06 00:00:[address] [facility] SARS-COV-2 COVID-19 PFIZER VACCINE 2021-03-06 00:00:[address] [facility] SARS-COV-2 COVID-19 PFIZER VACCINE 2021-03-06 00:00:[address] [facility] SARS-COV-2 COVID-19 PFIZER VACCINE 2021-03-06 00:00:[address] [facility] SARS-COV-2 COVID-19 PFIZER VACCINE 2021-03-06 00:00:[address] [facility] SARS-COV-2 COVID-19 PFIZER VACCINE 2021-03-06 00:00:[address] [facility] SARS-COV-2 COVID-19 PFIZER VACCINE 2021-03-06 00:00:[address] [facility] SARS-COV-2 COVID-19 PFIZER VACCINE 2021-03-06 00:00:[address] [facility] SARS-COV-2 COVID-19 PFIZER VACCINE 2021-03-06 00:00:[address] [facility] SARS-COV-2 COVID-19 PFIZER VACCINE 2021-03-06 00:00:[address] [facility] SARS-COV-2 COVID-19 PFIZER VACCINE 2021-03-06 00:00:[address] [facility] SARS-COV-2 COVID-19 PFIZER VACCINE 2021-03-06 00:00:[address] [facility] SARS-COV-2 COVID-19 PFIZER VACCINE 2021-03-06 00:00:[address] [facility] SARS-COV-2 COVID-19 PFIZER VACCINE 2021-03-06 00:00:[address] [facility] SARS-COV-2 COVID-19 PFIZER VACCINE 2021-03-06 00:00:[address] [facility] SARS-COV-2 COVID-19 PFIZER VACCINE 2021-03-06 00:00:[address] [facility] SARS-COV-2 COVID-19 PFIZER VACCINE 2021-03-06 00:00:[address] [facility] SARS-COV-2 COVID-19 PFIZER VACCINE 2021-03-06 00:00:[address] [facility] SARS-COV-2 COVID-19 PFIZER VACCINE 2021-03-06 00:00:[address] [facility] SARS-COV-2 COVID-19 PFIZER VACCINE 2021-03-06 00:00:[address] [facility] SARS-COV-2 COVID-19 PFIZER VACCINE 2021-03-06 00:00:[address] [facility] SARS-COV-2 COVID-19 PFIZER VACCINE 2021-03-06 00:00:[address] [facility] SARS-COV-2 COVID-19 PFIZER VACCINE 2021-03-06 00:00:[address] [facility] SARS-COV-2 COVID-19 PFIZER VACCINE 2021-03-06 00:00:[address] [facility] SARS-COV-2 COVID-19 PFIZER VACCINE 2021-03-06 00:00:[address] [facility] SARS-COV-2 COVID-19 PFIZER VACCINE 2021-03-06 00:00:[address] [facility] SARS-COV-2 COVID-19 PFIZER VACCINE 2021-03-06 00:00:[address] [facility] SARS-COV-2 COVID-19 PFIZER VACCINE 2021-03-06 00:00:[address] [facility] SARS-COV-2 COVID-19 PFIZER VACCINE 2021-03-06 00:00:[address] [facility] HPV9 2019-08-25 00:00:[address] [facility] HPV9 2019-08-25 00:00:[address] [facility] HPV9 2019-08-25 00:00:[address] [facility] HPV9 2019-08-25 00:00:[address] [facility] HPV9 2019-08-25 00:00:[address] [facility] HPV9 2019-08-25 00:00:[address] [facility] HPV9 2019-08-25 00:00:[address] [facility] HPV9 2019-08-25 00:00:[address] [facility] HPV9 2019-08-25 00:00:[address] [facility] HPV9 2019-08-25 00:00:[address] [facility] HPV9 2019-08-25 00:00:[address] [facility] HPV9 2019-08-25 00:00:[address] [facility] HPV9 2019-08-25 00:00:[address] [facility] HPV9 2019-08-25 00:00:[address] [facility] HPV9 2019-08-25 00:00:[address] [facility] HPV9 2019-08-25 00:00:[address] [facility] HPV9 2019-08-25 00:00:[address] [facility] HPV9 2019-08-25 00:00:[address] [facility] HPV9 2019-08-25 00:00:[address] [facility] HPV9 2019-08-25 00:00:[address] [facility] HPV9 2019-08-25 00:00:[address] [facility] HPV9 2019-08-25 00:00:[address] [facility] HPV9 2019-08-25 00:00:[address] [facility] HPV9 2019-08-25 00:00:[address] [facility] HPV9 2019-08-25 00:00:[address] [facility] HPV9 2019-08-25 00:00:[address] [facility] HPV9 2019-08-25 00:00:[address] [facility] HPV9 2019-08-25 00:00:[address] [facility] HPV9 2019-08-25 00:00:[address] [facility] HPV9 2019-05-27 00:00:[address] [facility] HPV9 2019-05-27 00:00:[address] [facility] HPV9 2019-05-27 00:00:[address] [facility] HPV9 2019-05-27 00:00:[address] [facility] HPV9 2019-05-27 00:00:[address] [facility] HPV9 2019-05-27 00:00:[address] [facility] HPV9 2019-05-27 00:00:[address] [facility] HPV9 2019-05-27 00:00:[address] [facility] HPV9 2019-05-27 00:00:[address] [facility] HPV9 2019-05-27 00:00:[address] [facility] HPV9 2019-05-27 00:00:[address] [facility] HPV9 2019-05-27 00:00:[address] [facility] HPV9 2019-05-27 00:00:[address] [facility] HPV9 2019-05-27 00:00:[address] [facility] HPV9 2019-05-27 00:00:[address] [facility] HPV9 2019-05-27 00:00:[address] [facility] HPV9 2019-05-27 00:00:[address] [facility] HPV9 2019-05-27 00:00:[address] [facility] HPV9 2019-05-27 00:00:[address] [facility] HPV9 2019-05-27 00:00:[address] [facility] HPV9 2019-05-27 00:00:[address] [facility] HPV9 2019-05-27 00:00:[address] [facility] HPV9 2019-05-27 00:00:[address] [facility] HPV9 2019-05-27 00:00:[address] [facility] HPV9 2019-05-27 00:00:[address] [facility] HPV9 2019-05-27 00:00:[address] [facility] HPV9 2019-05-27 00:00:[address] [facility] HPV9 2019-05-27 00:00:[address] [facility] HPV9 2019-05-27 00:00:[address] [facility] TDAP (ADACEL) VACCINE 2014-06-24 00:00:[address] [facility] Meningococcal Vaccine 2014-06-24 00:00:[address] [facility] TDAP (ADACEL) VACCINE 2014-06-24 00:00:[address] [facility] Meningococcal Vaccine 2014-06-24 00:00:[address] [facility] TDAP (ADACEL) VACCINE 2014-06-24 00:00:[address] [facility] Meningococcal Vaccine 2014-06-24 00:00:[address] [facility] TDAP (ADACEL) VACCINE 2014-06-24 00:00:[address] [facility] Meningococcal Vaccine 2014-06-24 00:00:[address] [facility] TDAP (ADACEL) VACCINE 2014-06-24 00:00:[address] [facility] Meningococcal Vaccine 2014-06-24 00:00:00 Completed [facility] TDAP (ADACEL) VACCINE 2014-06-24 00:00:00 Completed [facility] Meningococcal Vaccine 2014-06-24 00:00:00 Completed [facility] TDAP (ADACEL) VACCINE 2014-06-24 00:00:00 Completed [facility] Meningococcal Vaccine 2014-06-24 00:00:00 Completed [facility] TDAP (ADACEL) VACCINE 2014-06-24 00:00:00 Completed [facility] Meningococcal Vaccine 2014-06-24 00:00:00 Completed [facility] TDAP (ADACEL) VACCINE 2014-06-24 00:00:00 Completed [facility] Meningococcal Vaccine 2014-06-24 00:00:00 Completed [facility] TDAP (ADACEL) VACCINE 2014-06-24 00:00:00 Completed [facility] Meningococcal Vaccine 2014-06-24 00:00:00 Completed [facility] TDAP (ADACEL) VACCINE 2014-06-24 00:00:00 Completed [facility] Meningococcal Vaccine 2014-06-24 00:00:00 Completed [facility] TDAP (ADACEL) VACCINE 2014-06-24 00:00:00 Completed [facility] Meningococcal Vaccine 2014-06-24 00:00:00 Completed [facility] TDAP (ADACEL) VACCINE 2014-06-24 00:00:00 Completed [facility] Meningococcal Vaccine 2014-06-24 00:00:00 Completed [facility] TDAP (ADACEL) VACCINE 2014-06-24 00:00:00 Completed [facility] Meningococcal Vaccine 2014-06-24 00:00:00 Completed [facility] TDAP (ADACEL) VACCINE 2014-06-24 00:00:00 Completed [facility] Meningococcal Vaccine 2014-06-24 00:00:00 Completed [facility] TDAP (ADACEL) VACCINE 2014-06-24 00:00:00 Completed [facility] Meningococcal Vaccine 2014-06-24 00:00:00 Completed [facility] TDAP (ADACEL) VACCINE 2014-06-24 00:00:00 Completed [facility] Meningococcal Vaccine 2014-06-24 00:00:00 Completed [facility] TDAP (ADACEL) VACCINE 2014-06-24 00:00:00 Completed [facility] Meningococcal Vaccine 2014-06-24 00:00:00 Completed [facility] TDAP (ADACEL) VACCINE 2014-06-24 00:00:00 Completed [facility] Meningococcal Vaccine 2014-06-24 00:00:00 Completed [facility] TDAP (ADACEL) VACCINE 2014-06-24 00:00:00 Completed [facility] Meningococcal Vaccine 2014-06-24 00:00:00 Completed [facility] TDAP (ADACEL) VACCINE 2014-06-24 00:00:00 Completed [facility] Meningococcal Vaccine 2014-06-24 00:00:00 Completed [facility] TDAP (ADACEL) VACCINE 2014-06-24 00:00:00 Completed [facility] Meningococcal Vaccine 2014-06-24 00:00:00 Completed [facility] TDAP (ADACEL) VACCINE 2014-06-24 00:00:00 Completed [facility] Meningococcal Vaccine 2014-06-24 00:00:00 Completed [facility] TDAP (ADACEL) VACCINE 2014-06-24 00:00:00 Completed [facility] Meningococcal Vaccine 2014-06-24 00:00:00 Completed [facility] TDAP (ADACEL) VACCINE 2014-06-24 00:00:00 Completed [facility] Meningococcal Vaccine 2014-06-24 00:00:00 Completed [facility] TDAP (ADACEL) VACCINE 2014-06-24 00:00:00 Completed [facility] Meningococcal Vaccine 2014-06-24 00:00:00 Completed [facility] TDAP (ADACEL) VACCINE 2014-06-24 00:00:00 Completed [facility] Meningococcal Vaccine 2014-06-24 00:00:00 Completed [facility] TDAP (ADACEL) VACCINE 2014-06-24 00:00:00 Completed [facility] Meningococcal Vaccine 2014-06-24 00:00:00 Completed [facility] TDAP (ADACEL) VACCINE 2014-06-24 00:00:00 Completed [facility] Meningococcal Vaccine 2014-06-24 00:00:[address] [facility] TDAP (ADACEL) VACCINE 2013-03-12 00:00:[address] [facility] TDAP (ADACEL) VACCINE 2013-03-12 00:00:00 Completed [facility] TDAP (ADACEL) VACCINE 2013-03-12 00:00:[address] [facility] TDAP (ADACEL) VACCINE 2013-03-12 00:00:[address] [facility] TDAP (ADACEL) VACCINE 2013-03-12 00:00:00 Completed [facility] TDAP (ADACEL) VACCINE 2013-03-12 00:00:[address] [facility] TDAP (ADACEL) VACCINE 2013-03-12 00:00:[address] [facility] TDAP (ADACEL) VACCINE 2013-03-12 00:00:[address] [facility] TDAP (ADACEL) VACCINE 2013-03-12 00:00:[address] [facility] TDAP (ADACEL) VACCINE 2013-03-12 00:00:[address] [facility] TDAP (ADACEL) VACCINE 2013-03-12 00:00:[address] [facility] TDAP (ADACEL) VACCINE 2013-03-12 00:00:[address] [facility] TDAP (ADACEL) VACCINE 2013-03-12 00:00:[address] [facility] TDAP (ADACEL) VACCINE 2013-03-12 00:00:[address] [facility] TDAP (ADACEL) VACCINE 2013-03-12 00:00:[address] [facility] TDAP (ADACEL) VACCINE 2013-03-12 00:00:[address] [facility] TDAP (ADACEL) VACCINE 2013-03-12 00:00:[address] [facility] TDAP (ADACEL) VACCINE 2013-03-12 00:00:[address] [facility] TDAP (ADACEL) VACCINE 2013-03-12 00:00:[address] [facility] TDAP (ADACEL) VACCINE 2013-03-12 00:00:[address] [facility] TDAP (ADACEL) VACCINE 2013-03-12 00:00:[address] [facility] TDAP (ADACEL) VACCINE 2013-03-12 00:00:[address] [facility] TDAP (ADACEL) VACCINE 2013-03-12 00:00:[address] [facility] TDAP (ADACEL) VACCINE 2013-03-12 00:00:[address] [facility] TDAP (ADACEL) VACCINE 2013-03-12 00:00:[address] [facility] TDAP (ADACEL) VACCINE 2013-03-12 00:00:[address] [facility] TDAP (ADACEL) VACCINE 2013-03-12 00:00:[address] [facility] TDAP (ADACEL) VACCINE 2013-03-12 00:00:[address] [facility] TDAP (ADACEL) VACCINE 2013-03-12 00:00:[address] [facility] HPV9 Unknown Completed [facility] TDAP (ADACEL) VACCINE Unknown Completed [facility] Meningococcal Vaccine Unknown Completed [facility] HPV9 Unknown Completed [facility] SARS-COV-2 COVID-19 PFIZER VACCINE Unknown Completed [facility] SARS-COV-2 COVID-19 PFIZER VACCINE Unknown Completed [facility] Influenza Virus Vaccine Quad .5 mL IM 6+ MO (FLUZONE/FLULAVAL/F LUARIX) Unknown Completed [facility] TDAP (ADACEL) VACCINE Unknown Completed [facility] HPV9 Unknown Completed [facility] TDAP (ADACEL) VACCINE Unknown Completed [facility] Meningococcal Vaccine Unknown Completed [facility] HPV9 Unknown Completed [facility] SARS-COV-2 COVID-19 PFIZER VACCINE Unknown Completed [facility] SARS-COV-2 COVID-19 PFIZER VACCINE Unknown Completed [facility] Influenza Virus Vaccine Quad .5 mL IM 6+ MO (FLUZONE/FLULAVAL/F LUARIX) Unknown Completed [facility] TDAP (ADACEL) VACCINE Unknown Completed [facility] HPV9 Unknown Completed [facility] TDAP (ADACEL) VACCINE Unknown Completed [facility] Meningococcal Vaccine Unknown Completed [facility] HPV9 Unknown Completed [facility] SARS-COV-2 COVID-19 PFIZER VACCINE Unknown Completed [facility] SARS-COV-2 COVID-19 PFIZER VACCINE Unknown Completed [facility] Influenza Virus Vaccine Quad .5 mL IM 6+ MO (FLUZONE/FLULAVAL/F LUARIX) Unknown Completed [facility] TDAP (ADACEL) VACCINE Unknown Completed [facility] HPV9 Unknown Completed [facility] TDAP (ADACEL) VACCINE Unknown Completed [facility] Meningococcal Vaccine Unknown Completed [facility] HPV9 Unknown Completed [facility] SARS-COV-2 COVID-19 PFIZER VACCINE Unknown Completed [facility] SARS-COV-2 COVID-19 PFIZER VACCINE Unknown Completed [facility] Influenza Virus Vaccine Quad .5 mL IM 6+ MO (FLUZONE/FLULAVAL/F LUARIX) Unknown Completed [facility] TDAP (ADACEL) VACCINE Unknown Completed [facility] HPV9 Unknown Completed [facility] TDAP (ADACEL) VACCINE Unknown Completed [facility] Meningococcal Vaccine Unknown Completed [facility] HPV9 Unknown Completed [facility] SARS-COV-2 COVID-19 PFIZER VACCINE Unknown Completed [facility] SARS-COV-2 COVID-19 PFIZER VACCINE Unknown Completed [facility] Influenza Virus Vaccine Quad .5 mL IM 6+ MO (FLUZONE/FLULAVAL/F LUARIX) Unknown Completed [facility] TDAP (ADACEL) VACCINE Unknown Completed [facility] HPV9 Unknown Completed [facility] TDAP (ADACEL) VACCINE Unknown Completed [facility] Meningococcal Vaccine Unknown Completed [facility] HPV9 Unknown Completed [facility] SARS-COV-2 COVID-19 PFIZER VACCINE Unknown Completed [facility] SARS-COV-2 COVID-19 PFIZER VACCINE Unknown Completed [facility] Influenza Virus Vaccine Quad .5 mL IM 6+ MO (FLUZONE/FLULAVAL/F LUARIX) Unknown Completed [facility] TDAP (ADACEL) VACCINE Unknown Completed [facility] HPV9 Unknown Completed [facility] TDAP (ADACEL) VACCINE Unknown Completed [facility] Meningococcal Vaccine Unknown Completed [facility] HPV9 Unknown Completed [facility] SARS-COV-2 COVID-19 PFIZER VACCINE Unknown Completed [facility] SARS-COV-2 COVID-19 PFIZER VACCINE Unknown Completed [facility] Influenza Virus Vaccine Quad .5 mL IM 6+ MO (FLUZONE/FLULAVAL/F LUARIX) Unknown Completed [facility] TDAP (ADACEL) VACCINE Unknown Completed [facility] HPV9 Unknown Completed [facility] TDAP (ADACEL) VACCINE Unknown Completed [facility] Meningococcal Vaccine Unknown Completed [facility] HPV9 Unknown Completed [facility] TDAP (ADACEL) VACCINE Unknown Completed [facility] HPV9 Unknown Completed [facility] TDAP (ADACEL) VACCINE Unknown Completed [facility] Meningococcal Vaccine Unknown Completed [facility] HPV9 Unknown Completed [facility] SARS-COV-2 COVID-19 PFIZER VACCINE Unknown Completed [facility] SARS-COV-2 COVID-19 PFIZER VACCINE Unknown Completed [facility] Influenza Virus Vaccine Quad .5 mL IM 6+ MO (FLUZONE/FLULAVAL/F LUARIX) Unknown Completed [facility] TDAP (ADACEL) VACCINE Unknown Completed [facility] HPV9 Unknown Completed [facility] TDAP (ADACEL) VACCINE Unknown Completed [facility] Meningococcal Vaccine Unknown Completed [facility] HPV9 Unknown Completed [facility] SARS-COV-2 COVID-19 PFIZER VACCINE Unknown Completed [facility] SARS-COV-2 COVID-19 PFIZER VACCINE Unknown Completed [facility] Influenza Virus Vaccine Quad .5 mL IM 6+ MO (FLUZONE/FLULAVAL/F LUARIX) Unknown Completed [facility] TDAP (ADACEL) VACCINE Unknown Completed [facility] HPV9 Unknown Completed [facility] TDAP (ADACEL) VACCINE Unknown Completed [facility] Meningococcal Vaccine Unknown Completed [facility] HPV9 Unknown Completed [facility] SARS-COV-2 COVID-19 PFIZER VACCINE Unknown Completed [facility] SARS-COV-2 COVID-19 PFIZER VACCINE Unknown Completed [facility] Influenza Virus Vaccine Quad .5 mL IM 6+ MO (FLUZONE/FLULAVAL/F LUARIX) Unknown Completed [facility] TDAP (ADACEL) VACCINE Unknown Completed [facility] HPV9 Unknown Completed [facility] TDAP (ADACEL) VACCINE Unknown Completed [facility] Meningococcal Vaccine Unknown Completed [facility] HPV9 Unknown Completed [facility] SARS-COV-2 COVID-19 PFIZER VACCINE Unknown Completed [facility] SARS-COV-2 COVID-19 PFIZER VACCINE Unknown Completed [facility] Influenza Virus Vaccine Quad .5 mL IM 6+ MO (FLUZONE/FLULAVAL/F LUARIX) Unknown Completed [facility] TDAP (ADACEL) VACCINE Unknown Completed [facility] HPV9 Unknown Completed [facility] TDAP (ADACEL) VACCINE Unknown Completed [facility] Meningococcal Vaccine Unknown Completed [facility] HPV9 Unknown Completed [facility] SARS-COV-2 COVID-19 PFIZER VACCINE Unknown Completed [facility] SARS-COV-2 COVID-19 PFIZER VACCINE Unknown Completed [facility] Influenza Virus Vaccine Quad .5 mL IM 6+ MO (FLUZONE/FLULAVAL/F LUARIX) Unknown Completed [facility] TDAP (ADACEL) VACCINE Unknown Completed [facility] Vital Signs Vital Name Observation Time Observation Value Comments S ource Systolic blood pressure 2023-11-14 14:36:00 127 mm[Hg] [facility] Diastolic blood pressure 2023-11-14 14:36:00 82 mm[Hg] [facility] Heart rate 2023-11-14 14:36:00 91 /min [facility] Body temperature 2023-11-14 14:36:[address] [facility] Respiratory rate 2023-11-14 14:36:00 18 /min [facility] Body height 2023-11-14 14:36:[address] [facility] Body weight 2023-11-14 14:36:[address] [facility] BMI 2023-11-14 14:36:00 23.00 kg/m2 [facility] Systolic blood pressure 2023-11-12 04:00:00 127 mm[Hg] [facility] Diastolic blood pressure 2023-11-12 04:00:00 55 mm[Hg] [facility] Heart rate 2023-11-12 04:00:00 69 /min [facility] Body temperature 2023-11-12 04:00:[address] [facility] Respiratory rate 2023-11-12 04:00:00 16 /min [facility] Oxygen saturation in Arterial blood by Pulse oximetry 2023-11-12 04:00:00 100 /min [facility] Body height 2023-11-12 02:44:00 162.6 cm [facility] Body weight 2023-11-12 02:44:[address] [facility] BMI 2023-11-12 02:44:00 22.31 kg/m2 [facility] Systolic blood pressure 2023-10-24 16:38:00 140 mm[Hg] [facility] Diastolic blood pressure 2023-10-24 16:38:00 88 mm[Hg] [facility] Heart rate 2023-10-24 16:38:00 78 /min [facility] Body temperature 2023-10-24 16:38:[address] [facility] Respiratory rate 2023-10-24 16:38:00 22 /min [facility] Body height 2023-10-24 16:38:[address] [facility] Body weight 2023-10-24 16:38:[address] [facility] BMI 2023-10-24 16:38:00 22.31 kg/m2 [facility] Oxygen saturation in Arterial blood by Pulse oximetry 2023-10-24 16:38:00 100 /min [facility] Systolic blood pressure 2023-08-20 20:26:00 136 mm[Hg] [facility] Diastolic blood pressure 2023-08-20 20:26:00 81 mm[Hg] [facility] Heart rate 2023-08-20 20:26:00 68 /min [facility] Body temperature 2023-08-20 20:26:[address] [facility] Respiratory rate 2023-08-20 20:26:00 18 /min [facility] Body height 2023-08-20 20:26:00 165.1 cm [facility] Body weight 2023-08-20 20:26:00 62.642 kg [facility] BMI 2023-08-20 20:26:00 22.98 kg/m2 [facility] Systolic blood pressure 2023-04-24 15:10:00 148 mm[Hg] [facility] Diastolic blood pressure 2023-04-24 15:10:00 99 mm[Hg] [facility] Heart rate 2023-04-24 15:10:00 87 /min [facility] Body temperature 2023-04-24 15:10:[address] [facility] Respiratory rate 2023-04-24 15:10:00 18 /min [facility] Body height 2023-04-24 15:10:00 165.1 cm [facility] Body weight 2023-04-24 15:10:[address] [facility] BMI 2023-04-24 15:10:00 22.96 kg/m2 [facility] Oxygen saturation in Arterial blood by Pulse oximetry 2023-04-24 15:10:00 100 /min [facility] Systolic blood pressure 2023-04-18 15:54:00 141 mm[Hg] [facility] Diastolic blood pressure 2023-04-18 15:54:00 73 mm[Hg] [facility] Heart rate 2023-04-18 15:54:00 58 /[facility] Body temperature 2023-04-18 15:54:[address] [facility] Respiratory rate 2023-04-18 15:54:00 18 /min [facility] Body height 2023-04-18 15:54:00 162.6 cm [facility] Body weight 2023-04-18 15:54:00 62.914 kg [facility] BMI 2023-04-18 15:54:00 23.81 kg/m2 [facility] Systolic blood pressure 2023-04-01 18:05:00 140 mm[Hg] [facility] Diastolic blood pressure 2023-04-01 18:05:00 87 mm[Hg] [facility] Heart rate 2023-04-01 18:02:00 97 /min [facility] Body temperature 2023-04-01 18:02:[address] [facility] Body height 2023-04-01 18:02:[address] [facility] Body weight 2023-04-01 18:02:00 61.236 kg [facility] BMI 2023-04-01 18:02:00 22.47 kg/m2 [facility] Oxygen saturation in Arterial blood by Pulse oximetry 2023-04-01 18:02:00 97 /min [facility] Systolic blood pressure 2023-02-14 15:01:00 126 mm[Hg] [facility] Diastolic blood pressure 2023-02-14 15:01:00 58 mm[Hg] [facility] Heart rate 2023-02-14 15:01:00 70 /min [facility] Body temperature 2023-02-14 15:01:[address] [facility] Respiratory rate 2023-02-14 15:01:00 18 /min [facility] Body height 2023-02-14 15:01:[address] [facility] Body weight 2023-02-14 15:01:[address] [facility] BMI 2023-02-14 15:01:00 24.51 kg/m2 [facility] Oxygen saturation in Arterial blood by Pulse oximetry 2023-02-14 15:01:00 100 /min [facility] Systolic blood pressure 2023-01-03 14:37:00 130 mm[Hg] [facility] Diastolic blood pressure 2023-01-03 14:37:00 85 mm[Hg] [facility] Heart rate 2023-01-03 14:37:00 66 /min [facility] Body temperature 2023-01-03 14:37:[address] [facility] Body height 2023-01-03 14:37:[address] [facility] Body weight 2023-01-03 14:37:[address] [facility] BMI 2023-01-03 14:37:00 25.03 kg/m2 [facility] Oxygen saturation in Arterial blood by Pulse oximetry 2023-01-03 14:37:00 98 /min [facility] Systolic blood pressure 2022-12-28 00:30:00 133 mm[Hg] [facility] Diastolic blood pressure 2022-12-28 00:30:00 75 mm[Hg] [facility] Heart rate 2022-12-28 00:30:00 82 /min [facility] Body temperature 2022-12-28 00:30:[address] [facility] Respiratory rate 2022-12-28 00:30:00 16 /min [facility] Body height 2022-12-28 00:30:[address] [facility] Body weight 2022-12-28 00:30:[address] [facility] BMI 2022-12-28 00:30:00 24.89 kg/m2 [facility] Oxygen saturation in Arterial blood by Pulse oximetry 2022-12-28 00:30:00 100 /min [facility] Systolic blood pressure 2022-12-28 00:06:00 145 mm[Hg] [facility] Diastolic blood pressure 2022-12-28 00:06:00 102 mm[Hg] [facility] Heart rate 2022-12-28 00:06:00 88 /min [facility] Body temperature 2022-12-28 00:06:[address] [facility] Respiratory rate 2022-12-28 00:06:00 17 /min [facility] Body weight 2022-12-28 00:06:[address] [facility] BMI 2022-12-28 00:06:00 25.66 kg/m2 [facility] Oxygen saturation in Arterial blood by Pulse oximetry 2022-12-28 00:06:00 98 /min [facility] Systolic blood pressure 2022-12-20 14:41:00 128 mm[Hg] [facility] Diastolic blood pressure 2022-12-20 14:41:00 79 mm[Hg] [facility] Heart rate 2022-12-20 14:41:00 79 /min [facility] Body temperature 2022-12-20 14:41:[address] [facility] Respiratory rate 2022-12-20 14:41:00 18 /min [facility] Body height 2022-12-20 14:41:00 162.6 cm [facility] Body weight 2022-12-20 14:41:[address] [facility] BMI 2022-12-20 14:41:00 26.43 kg/m2 [facility] Systolic blood pressure 2022-09-21 15:50:00 132 mm[Hg] [facility] Diastolic blood pressure 2022-09-21 15:50:00 73 mm[Hg] [facility] Heart rate 2022-09-21 15:45:00 73 /min [facility] Body temperature 2022-09-21 15:45:[address] [facility] Respiratory rate 2022-09-21 15:45:00 19 /min [facility] Body height 2022-09-21 15:45:[address] [facility] Body weight 2022-09-21 15:45:[address] [facility] BMI 2022-09-21 15:45:00 27.91 kg/m2 [facility] Systolic blood pressure 2022-02-15 13:51:00 127 mm[Hg] [facility] Diastolic blood pressure 2022-02-15 13:51:00 88 mm[Hg] [facility] Heart rate 2022-02-15 13:51:00 71 /min [facility] Body temperature 2022-02-15 13:51:[address] [facility] Respiratory rate 2022-02-15 13:51:00 16 /min [facility] Body height 2022-02-15 13:51:[address] [facility] Body weight 2022-02-15 13:51:[address] [facility] BMI 2022-02-15 13:51:00 32.77 kg/m2 [facility] Procedures Procedure Date / Time Performed Performing Clinician Source PAP SMEAR-LIQUID BASED-CP 2023-11-14 16:19:[address] [facility] GLUCOSE 1 HOUR POST PRANDIAL 2023-11-14 15:53:[address] [facility] CBC WITH DIFF 2023-11-14 15:53:[address] [facility] HEPATITIS B SURFACE ANTIGEN 2023-11-14 15:53:[address] [facility] HB ABO GROUPING 2023-11-14 15:53:[address] [facility] HIV 1/2 AG-AB WITH REFLEX 2023-11-14 15:53:[address] [facility] POCT URINALYSIS W/O SPECIFIC GRAVITY 2023-11-14 14:37:[address] [facility] POCT TEST 2023-11-14 14:27:[address] [facility] LIPASE 2023-11-12 03:10:[address] [facility] COMP. METABOLIC PANEL (07775) 2023-11-12 03:10:[address] [facility] CBC WITH DIFF 2023-11-12 03:10:00 [facility] 2023-11-12 03:10:[address] [facility] ABORH CONFIRMATION (LAB ONLY) 2023-10-24 18:54:[address] [facility] THYROID STIMULATING HORMONE 2023-10-24 17:55:[address] [facility] COMP. METABOLIC PANEL ([id number]) 2023-10-24 17:55:[address] [facility] TOTAL BETA HCG ASSAY 2023-10-24 17:55:00 Wendy, And res [facility] CBC WITH DIFF 2023-10-24 17:55:00 Nacho Nguyen [facility] HB ABO GROUPING 2023-10-24 17:55:00 [facility]REFUSAL FOR DIAGNOSIS AND TREATMENT 2023-10-24 16:28:49 Doctor Unassigned, [place] [facility] POCT TEST 2023-04-24 15:42:00 Berkley Dickson [facility] URINALYSIS 2023-04-24 15:38:[address] [facility] ASSIGNMENT OF BENEFITS 2023-04-24 15:20:04 Docto r Unassigned, [place] [facility] CONSENT/REFUSAL FOR DIAGNOSIS AND TREATMENT 2023-04-24 15:04:50 Doctor Unassigned, [place] [facility] POCT TEST 2023-04-18 00:00:[address] [facility] COMP. METABOLIC PANEL ([id number]) 2023-04-01 18:36:[address] [facility] CBC WITH DIFF 2023-04-01 18:36:[address] [facility] POCT URINALYSIS 2023-01-03 15:09:00 Eliza Bowers [facility] POCT TEST 2023-01-03 15:09:[address] [facility] CT ABDOMEN PELVIS W CONTRAST 2022-12-28 02:03:[address] [facility] ASSIGNMENT OF BENEFITS 2022-12-28 01:22:25 Docto r Unassigned, [place] [facility] POCT TEST 2022-12-28 01:05:[address] [facility] LIPASE 2022-12-28 01:04:00 Yaw Bro [facility] THYROID STIMULATING HORMONE 2022-12-28 01:04:[address] [facility] COMP. METABOLIC PANEL ([id number]) 2022-12-28 01:04:[address] [facility] CBC WITH DIFF 2022-12-28 01:04:[address] [facility] URINALYSIS 2022-12-28 01:04:00 Yaw Broe [facility] CONSENT/REFUSAL FOR DIAGNOSIS AND TREATMENT 2022-12-28 00:17:56 Doctor Unassigned, [place] [facility] ASSIGNMENT OF BENEFITS 2022-12-20 14:26:08 Docto r Unassigned, [place] [facility] POCT TEST 2022-09-21 00:00:[address] [facility] Encounters Start Date/Time End Date/Time Encounter Type Admission Type Attending [facility] Facility Care Department Encounter ID Source 2021-06-08 19:53:15 Emergency [facility] [id number] [facility] 2023-11-27 11:00:00 2023-11-27 11:00:00 Outpatient P [facility] [id number] [facility] 2023-11-21 08:30:00 2023-11-21 08:30:00 Outpatient R LESLIE CASTELLANOS [facility] [id number] [facility] 2023-11-20 15:00:00 2023-11-20 15:00:00 Outpatient P [facility] [id number] [facility] 2023-11-20 00:00:00 2023-11-20 00:00:00 Abstract Leslie Castellanos [facility] MATERNAL & CHILD [facility] .840.114 350.1.13.10 4.2.7.2.686 [id number] [facility] 2023-11-15 00:00:00 2023-11-15 00:00:00 Telephone Leslie Castellanos [facility] MATERNAL & CHILD [facility] ..840.114 350.1.13.10 4.2.7.2.686 [id number] [facility] 2023-11-14 09:45:00 2023-11-14 11:19:33 Outpatient R CARLA VAUGHN [facility] [id number] [facility] 2023-11-14 09:45:00 2023-11-14 11:19:33 Initial Visit Leslie Castellanos Brenda A [facility] 1..840.114 350.1.13.10 4.2.7.2.686 [id number] [facility] 2023-11-11 21:41:00 2023-11-11 23:50:00 Emergency X ARNOLD BLUM [facility] [id number] [facility] 2023-11-11 21:41:00 2023-11-11 23:50:00 Emergency Arnold Blum [facility] 1..840.114 350.1.13.10 4.2.7.2.686 [id number] [facility] 2023-11-04 10:36:00 2023-11-04 13:26:00 Emergency X Lawson COCHRAN [facility] ERT [id number] [facility] 2023-11-01 00:00:00 2023-11-01 00:00:00 Telephone Sydney Lubin [facility] ..840.114 350.1.13.10 4.2.7.2.686 [id number] [facility] 2023-10-31 08:00:00 2023-10-31 08:00:00 Outpatient R [facility] [id number] [facility] 2023-10-30 00:00:00 2023-10-30 00:00:00 Outpatient Raju_P [facility] [id number] [facility] 2023-10-28 13:45:00 2023-10-28 13:45:00 Outpatient R LESLIE CASTELLANOS [facility] [id number] [facility] 2023-10-28 13:15:00 2023-10-28 13:15:00 Outpatient R [facility] [id number] [facility] 2023-10-24 11:40:00 2023-10-24 16:53:00 Emergency X NACHO NGUYEN [facility] [id number] [facility] 2023-10-24 11:40:00 2023-10-24 16:53:00 Emergency Nacho Nguyen [facility] 1.840.114 350.1.13.10 4.2.7.2.686 [id number] [facility] 2023-10-24 00:00:00 2023-10-24 00:00:00 Telephone Pgy3 [facility] 1.840.114 350.1.13.10 4.2.7.2.686 [id number] [facility] 2023-09-17 00:00:00 2023-09-17 00:00:00 Outpatient R SYDNEY LUBIN [facility] [id number] [facility] 2023-09-13 10:00:00 2023-09-13 10:00:00 Outpatient R BRUNA ARRINGTON ASHLEY [facility] [id number] [facility] 2023-09-02 00:00:00 2023-09-02 00:00:00 Outpatient R SYDNYE LUBIN [facility] [id number] [facility] 2023-08-23 00:00:00 2023-08-23 00:00:00 Patient Secure Msg Doctor Unassigned, [place] [facility] 1..840.114 350.1.13.10 4.2.7.2.686 [id number] [facility] 2023-08-20 14:30:00 2023-08-20 15:39:40 Outpatient R SYDNEY LUBIN [facility] [id number] [facility] 2023-08-20 14:30:00 2023-08-20 15:39:40 Office Visit Pgy2 [facility] 1.2840.114 350.1.13.10 4.2.7.2.686 [id number] [facility] 2023-08-13 00:00:00 2023-08-13 00:00:00 Telephone [facility] 1.840.114 350.1.13.10 4.2.7.2.686 [id number] [facility] 2023-07-18 08:30:00 2023-07-18 08:30:00 Outpatient R ELIZA BOWERS [facility] [id number] [facility] 2023-04-24 10:13:00 2023-04-24 12:05:00 [facility] [id number] [facility] 2023-04-24 10:13:00 2023-04-24 12:05:00 Emergency Rahel Dickson [facility] 1.840.114 350.1.13.10 4.2.7.2.686 [id number] [facility] 2023-04-18 11:00:00 2023-04-18 11:09:48 Outpatient R ELIZA BOWERS [facility] [id number] [facility] 2023-04-18 11:00:00 2023-04-18 11:09:48 Office Visit Eliza Bowers [facility] 1.2.840.114 350.1.13.10 4.2.7.2.686 [id number] [facility] 2023-04-04 00:00:00 2023-04-04 00:00:00 Telephone Eliza Bowers [facility] 1.2.840.114 350.1.13.10 4.2.7.2.686 [id number] [facility] 2023-04-01 13:53:27 2023-04-01 23:59:00 Outpatient R ELIZA BOWERS [facility] [id number] [facility] 2023-04-01 13:45:00 2023-04-01 23:59:00 Hospital Encounter Eliza Bowers [facility] 1.2.840.114 350.1.13.10 4.2.7.2.686 [id number] [facility] 2023-04-01 13:30:00 2023-04-01 13:36:46 Renal Medicine Specialist Visit 2, Adc Lab Eliza Bowers [facility] 1.2.840.114 350.1.13.10 4.2.7.2.686 [id number] [facility] 2023-04-01 13:00:00 2023-04-01 13:28:27 Office Visit Eliza Bowers [facility] 1.2.840.114 350.1.13.10 4.2.7.2.686 [id number] [facility] 2023-03-14 11:00:00 2023-03-14 11:00:00 Outpatient R ELIZA BOWERS [facility] [id number] [facility] 2023-03-09 00:00:00 2023-03-09 00:00:00 Refill Eliza Bowers [facility] 1.2.840.114 350.1.13.10 4.2.7.2.686 [id number] [facility] 2023-02-14 10:00:00 2023-02-14 10:27:33 Outpatient R ELIZA BOWERS [facility] [id number] [facility] 2023-02-14 10:00:00 2023-02-14 10:27:33 Office Visit Eliza Bowers [facility] 1.2.840.114 350.1.13.10 4.2.7.2.686 [id number] [facility] 2023-01-23 14:30:00 2023-01-23 14:30:00 Outpatient R LESLIE CASTELLANOS [facility] [id number] [facility] 2023-01-10 00:00:00 2023-01-10 00:00:00 Outpatient R ELIZA BOWERS [facility] [id number] [facility] 2023-01-04 00:00:00 2023-01-04 00:00:00 Telephone Leslie Castellanos [facility] 1.2840.114 350.1.13.10 4.2.7.2.686 [id number] [facility] 2023-01-03 10:15:00 2023-01-03 10:30:00 Renal Medicine Specialist Visit 2, Adc Lab Eliza Bowers [facility] 1.2.840.114 350.1.13.10 4.2.7.2.686 [id number] [facility] 2023-01-03 09:30:00 2023-01-03 10:13:42 Outpatient R ELIZA BOWERS [facility] [id number] [facility] 2023-01-03 09:30:00 2023-01-03 10:13:42 Office Visit Eliza Bowers [facility] 1.2.840.114 350.1.13.10 4.2.7.2.686 [id number] [facility] 2023-01-03 00:00:00 2023-01-03 00:00:00 Telephone Leslie Castellanos [facility] 1.2.840.114 350.1.13.10 4.2.7.2.686 [id number] [facility] 2023-01-01 15:15:00 2023-01-01 15:15:00 Outpatient R LESLIE CASTELLANOS [facility] [id number] [facility] 2023-01-01 08:30:00 2023-01-01 08:30:00 Outpatient R ELIZA BOWERS [facility] [id number] [facility] 2022-12-27 19:33:00 2022-12-27 21:29:00 Emergency X YAW BRO [facility] [id number] [facility] 2022-12-27 19:33:00 2022-12-27 21:29:00 Emergency Yaw Bro [facility] 1..840.114 350.1.13.10 4.2.7.2.686 [id number] [facility] 2022-12-27 19:00:00 2022-12-27 19:20:00 Nurse Visit Nurse, [facility] Unknown, Attending [facility] 1..840.114 350.1.13.10 4.2.7.2.686 [id number] [facility] 2022-12-27 19:00:00 2022-12-27 19:00:00 Outpatient R UNKNOWN, ATTENDING [facility] [id number] [facility] 2022-12-27 19:00:00 2022-12-27 19:00:00 Outpatient R BAILEE LIZ [facility] [id number] [facility] 2022-12-25 00:00:00 2022-12-25 00:00:00 Telephone Leslie Castellanos [facility] 1.840.114 350.1.13.10 4.2.7.2.686 [id number] [facility] 2022-12-20 10:00:00 2022-12-20 10:58:56 Outpatient R LESLIE CASTELLANOS [facility] [id number] [facility] 2022-12-20 10:00:00 2022-12-20 10:58:56 Office Visit Emanuel Leslie Curry [facility] 1.840.114 350.1.13.10 4.2.7.2.686 [id number] [facility] 2022-12-20 00:00:00 2022-12-20 00:00:00 Orders Only Doctor Unassigned, [place] [facility] 1.840.114 350.1.13.10 4.2.7.2.686 [id number] [facility] 2022-09-24 00:00:00 2022-09-24 00:00:00 Case Management Carla Vaughn [facility] 1.840.114 350.1.13.10 4.2.7.2.686 [id number] [facility] 2022-09-21 09:30:00 2022-09-21 10:18:05 Outpatient R CARLA VAUGHN [facility] [id number] [facility] 2022-09-21 09:30:00 2022-09-21 10:18:05 Office Visit Provider, Arcadio-Rmchp Carla Bass [facility] 1.840.114 350.1.13.10 4.2.7.2.686 [id number] [facility] 2022-09-21 00:00:00 2022-09-21 00:00:00 Letter (Out) Carla Vaughn [facility] 1..840.114 350.1.13.10 4.2.7.2.686 [id number] [facility] 2022-09-07 08:30:00 2022-09-07 08:30:00 Outpatient R ROSALES CHAPIN EMILY [facility] [id number] [facility] 2022 13:40:00 2022 13:40:00 Outpatient R MELINDA WHITING [facility] [id number] [facility] 2022-02-15 09:00:00 2022-02-15 09:18:29 Office Visit Jacob Barrientos [facility] 1..840.114 350.1.13.10 4.2.7.2.686 [id number] [facility] 2022-02-15 09:00:00 2022-02-15 09:18:29 Outpatient JACOB BAUTISTA [facility] [id number] [facility] 2022-02-15 09:00:00 2022-02-15 09:00:00 Outpatient JACOB BAUTISTA [facility] [id number] [facility] 2022-02-15 09:00:00 2022-02-15 09:00:00 Outpatient JACOB BAUTISTA [facility] [id number] [facility] 2022-01-12 00:00:00 2022-01-12 00:00:00 Telephone Jacob Barrientos [facility] [id number] [id number] [facility] 2022-01-11 15:15:00 2022-01-11 16:08:32 Office Visit Mary Barrientoskhang Love [facility] [id number] [facility] 2022-01-11 15:15:00 2022-01-11 16:08:32 Outpatient R FLOYD [facility] [id number] [facility] 2022-01-11 15:15:00 2022-01-11 15:15:00 Outpatient R FLOYD [facility] [id number] [facility] 2021-11-16 10:30:00 2021-11-16 10:30:00 Outpatient [facility] [id number] [facility] 2021-11-16 08:00:00 2021-11-16 08:20:47 Outpatient R FLOYD [facility] [id number] [facility] 2021-11-16 08:00:00 2021-11-16 08:20:47 Nurse Visit Visit, [facility] Nurse Mary Barrientoskhang [facility] TESTER [facility] CHILD [facility] [id number] [facility] 2021-11-03 00:00:00 2021-11-03 00:00:00 Telephone Jacob Barrientos [facility] [id number] 4.2.7.2.686 [id number] 107 [id number] [facility] 2021-11-02 10:30:00 2021-11-02 11:58:09 Office Visit Barrientos, Jacob [facility] 1.84.114 350.1.13.10 4.2.7.2.686 [id number] 107 [id number] [facility] 2021-11-02 10:30:00 2021-11-02 11:58:09 Outpatient Ivan BARRIENTOSMARYCARLOS [facility] [id number] [facility] 2021-11-02 10:30:00 2021-11-02 11:58:09 [facility] [id number] [facility] 2021-11-02 10:30:00 2021-11-02 10:30:00 [facility] [id number] [facility] 2021-11-02 10:30:00 2021-11-02 10:30:00 [facility] [id number] [facility] 2021-11-02 00:00:00 2021-11-02 00:00:00 Orders Only Doctor Unassigned, [facility] 1.2.840.114 350.1.13.10 4.2.7.2.686 [id number] [facility] 2021-10-16 19:47:00 2021-10-16 20:32:00 Emergency X ALIVIA LEE [facility] E[facility] [id number] [facility] 2021-10-16 19:47:00 2021-10-16 20:32:00 Emergency Alivia Lee [facility] 1.2.840.114 350.1.13.10 4.2.7.2.686 [id number] [facility] 2021-08-01 08:30:00 2021-08-01 09:21:32 Outpatient Ivan JACOB BARRIENTOS [facility] [id number] [facility] 2021-08-01 08:30:00 2021-08-01 09:21:32 Office Visit Jacob Barrientos [facility] [employer] 1.840.114 350.1.13.10 4.2.7.2.686 [id number] 107 [id number] [facility] 2021-08-01 00:00:00 2021-08-01 00:00:00 Orders Only Doctor Unassigned, [facility] 1.840.114 350.1.13.10 4.2.7.2.686 [id number] [facility] 2021-07-31 00:00:00 2021-07-31 00:00:00 Telephone Jacob Barrientos [facility] [employer] 1.840.114 350.1.13.10 4.2.7.2.686 [id number] 107 [id number] [facility] 2021-06-13 10:30:00 2021-06-13 10:58:17 Outpatient R CINDY APARICIO [facility] [id number] [facility] 2021-06-13 10:01:19 2021-06-13 10:58:17 Office Visit Cindy Aparicio [facility] 1.84.114 350.1.13.10 4.2.7.2.686 [id number] [facility] 2021-06-13 10:30:00 2021-06-13 10:30:00 Outpatient R CINDY APARICIO [facility] [id number] [facility] 2021-06-06 00:00:00 2021-06-06 00:00:00 Telephone Jacob Barrientos [facility] [employer] [employer] [facility] 1.84.114 350.1.13.10 4.2.7.2.686 [id number] 107 [id number] [facility] 2021-04-10 10:00:00 2021-04-10 10:00:00 Outpatient R LESLIE CASTELLANOS [facility] [id number] [facility] 2021-03-31 00:00:00 2021-03-31 00:00:00 Letter (Out) RobertRayne moss [facility] 1..840.114 350.1.13.10 4.2.7.2.686 [id number] [facility] 2021-03-30 12:30:00 2021-03-30 12:30:00 Outpatient R NI ALVAREZ [facility] [id number] [facility] 2020-12-30 09:29:12 2020-12-30 10:10:09 Office Visit Jacob Barrientos [facility] [employer] CHILD [facility] 1..840.114 350.1.13.10 4.2.7.2.686 [id number] 107 [id number] [facility] 2020-12-30 09:29:12 2020-12-30 10:10:09 Office Visit Jacob Barrientos [facility] [employer] [facility] 1..840.114 350.1.13.10 4.2.7.2.686 [id number] 107 [id number] 2020-12-30 09:30:00 2020-12-30 09:30:00 Outpatient R LESLIE CASTELLANOS [facility] [id number] [facility] 2020-12-30 08:45:00 2020-12-30 08:45:00 Outpatient R JACOB BARRIENTOS [facility] [id number] [facility] 2020-12-16 08:57:28 2020-12-16 09:27:28 Office Visit Leslie Castellanos [facility] [employer] [facility] 1..840.114 350.1.13.10 4.2.7.2.686 [id number] 107 [id number] [facility] 2020-12-16 09:00:00 2020-12-16 09:00:00 Outpatient R LESLIE CASTELLANOS [facility] [id number] [facility] 2020-12-16 00:00:00 2020-12-16 00:00:00 Orders Only Doctor Unassigned, [facility] 1.2840.114 350.1.13.10 4.2.7.2.686 [id number] [facility] 2020-12-02 00:00:00 2020-12-02 00:00:00 Telephone Leslie Castellanos [facility] [employer] [facility] 1..114 350.1.13.10 4.2.7.2.686 [id number] 107 [id number] [facility] 2020-11-29 15:31:01 2020-11-29 15:46:01 Nurse Visit Visit, [facility] Nurse Jacob Barrientos [facility] [employer] [employer] [facility] 1..114 350.1.13.10 4.2.7.2.686 [id number] 107 [id number] [facility] 2020-11-29 15:30:00 2020-11-29 15:30:00 Outpatient R JACOB BARRIENTOS [facility] [id number] [facility] 2020-11-29 00:00:00 2020-11-29 00:00:00 Telephone Jacob Barrientos [facility] [employer] [facility] 1..114 350.1.13.10 4.2.7.2.686 [id number] 107 [id number] [facility] 2020-11-02 10:16:29 2020-11-02 11:05:27 Office Visit Jacob Barrientos [facility] 1.840.114 350.1.13.10 4.2.7.2.686 [id number] 107 [id number] [facility] 2020-11-02 10:15:00 2020-11-02 10:15:00 Outpatient JACOB BAUTISTA [facility] [id number] [facility] 2020-11-02 00:00:00 2020-11-02 00:00:00 Orders Only Doctor Unassigned, [facility] 1..114 350.1.13.10 4.2.7.2.686 [id number] [facility] 2020-11-01 15:00:00 2020-11-01 15:00:00 Outpatient JACOB BAUTISTA [facility] [id number] [facility] 2020-11-01 00:00:00 2020-11-01 00:00:00 Patient Outreach Joel Matt [facility] 1.840.114 350.1.13.10 4.2.7.2.686 [id number] [facility] 2020-07-13 00:00:00 2020-07-13 00:00:00 Patient Secure Msg Doctor Unassigned, [facility] 1..114 350.1.13.10 4.2.7.2.686 [id number] [facility] 2020-07-04 00:00:00 2020-07-04 00:00:00 Leslie Nassar [facility] [employer] [employer] ..114 350.1.13.10 4.2.7.2.686 [id number] 107 [id number] [facility] 2020-06-13 09:15:00 2020-06-13 09:15:00 Outpatient LESLIE BOWER [facility] [id number] [facility] 2020-06-13 09:15:00 2020-06-13 09:15:00 Outpatient LESLIE BOWER [facility] [id number] [facility] 2020-06-01 00:00:00 2020-06-01 00:00:00 Refill Leslie Castellanos [facility] [employer] 1.840.114 350.1.13.10 4.2.7.2.686 [id number] 107 [id number] [facility] 2020-05-30 00:00:00 2020-05-30 00:00:00 Refill Alysia [facility] Office [facility] .84.114 350.1.13.10 4.2.7.2.686 [id number] [facility] 2020-05-27 10:30:00 2020-05-27 10:30:00 Outpatient R LESLIE CASTELLANOS [facility] [id number] [facility] 2020-05-27 10:30:00 2020-05-27 10:30:00 Outpatient R LESLIE CASTELLANOS [facility] [id number] [facility] 2020-05-10 11:18:40 2020-05-10 11:38:40 [facility] .840.114 350.1.13.10 4.2.7.2.686 [id number] [facility] 2020-05-10 11:20:00 2020-05-10 11:20:00 Outpatient R ELENA LOPEZ [facility] [id number] [facility] 2020-05-09 00:00:00 2020-05-09 00:00:00 Telephone Jacob Barrientos [facility] [employer] [facility] 1.84.114 350.1.13.10 4.2.7.2.686 [id number] 107 [id number] [facility] 2020-03-31 09:26:23 2020-03-31 10:13:41 Office Visit Leslie Castellanos [facility] 1.2.840.114 350.1.13.10 4.2.7.2.686 [id number] 107 [id number] [facility] 2020-03-31 09:00:00 2020-03-31 09:00:00 Outpatient R LESLIE CASTELLANOS [facility] [id number] [facility] 2020-03-11 00:00:00 2020-03-11 00:00:00 Telephone Leslie Castellanos [facility] 1.2.840.114 350.1.13.10 4.2.7.2.686 [id number] 107 [id number] [facility] 2020-03-10 14:30:00 2020-03-10 14:30:00 Outpatient R LESLIE CASTELLANOS [facility] [id number] [facility] 2020-03-10 10:09:10 2020-03-10 11:09:52 Office Visit Leslie Castellanos [facility] [employer] [facility] 1.2.840.114 350.1.13.10 4.2.7.2.686 [id number] 107 [id number] [facility] 2020-03-07 00:00:00 2020-03-07 00:00:00 Telephone Jacob Barrientos [facility] 1.2.840.114 350.1.13.10 4.2.7.2.686 [id number] 107 [id number] [facility] 2019-12-29 13:01:04 2019-12-30 11:33:02 Initial Visit Jacob Barrientos [facility] [employer] [facility] 1.2.840.114 350.1.13.10 4.2.7.2.686 [id number] 107 [id number] [facility] 2019-12-30 00:00:00 2019-12-30 00:00:00 Patient Secure Msg Doctor Unassigned, [facility] MAT[facility] CHILD [facility] 1.2.840.114 350.1.13.10 4.2.7.2.686 [id number] 107 [id number] [facility] 2019-12-30 00:00:00 2019-12-30 00:00:00 Patient Secure Msg Doctor Unassigned, [place] [facility] 1.2.840.114 350.1.13.10 4.2.7.2.686 [id number] 107 [id number] [facility] 2019-12-29 14:04:59 2019-12-29 14:20:25 Office Visit Jacob Barrientos Ivan [facility] [employer] [employer] [facility] 1.2.840.114 350.1.13.10 4.2.7.2.686 [id number] 107 [id number] [facility] 2019-12-29 12:45:00 2019-12-29 12:45:00 Outpatient R JACOB BARRIENTOS [facility] [id number] [facility] 2019-12-15 07:30:05 2019-12-15 08:20:00 Emergency Gadiel Fletcher [facility] 1.2.840.114 350.1.13.10 4.2.7.2.686 [id number] [facility] 2019-12-14 00:00:00 2019-12-14 00:00:00 Patient Secure Msg Ethel Marie [facility] [employer] [employer] [facility] 1.2.840.114 350.1.13.10 4.2.7.2.686 [id number] 107 [id number] [facility] 2019-11-30 08:30:00 2019-11-30 08:30:00 Outpatient R [facility] [id number] [facility] 2019-11-27 09:30:00 2019-11-27 09:30:00 Outpatient R [facility] [id number] [facility] 2019-11-26 09:00:00 2019-11-26 09:00:00 Outpatient R [facility] [id number] [facility] 2019-11-26 00:00:00 2019-11-26 00:00:00 Telephone Barrientos, Jacob Love [facility] [employer] [employer] 1.2.840.114 350.1.13.10 4.2.7.2.686 [id number] 107 [id number] [facility] 2019-11-24 09:30:00 2019-11-24 09:30:00 Outpatient R LESLIE CASTELLANOS [facility] [id number] [facility] 2019-11-03 05:13:00 2019-11-03 05:13:00 Outpatient Raju_P [facility] [id number] [facility] 2019-10-27 00:00:00 2019-10-27 00:00:00 Patient Secure Msg Barrientos, Jacob [facility] [employer] 1..840.114 350.1.13.10 4.2.7.2.686 [id number] 107 [id number] [facility] 2019-10-16 10:45:40 2019-10-16 11:26:43 Office Visit Leslie Castellanos [facility] [employer] [employer] [facility] 1..840.114 350.1.13.10 4.2.7.2.686 [id number] 107 [id number] [facility] 2019-10-16 10:45:00 2019-10-16 10:45:00 Outpatient R LESLIE CASTELLANOS [facility] [id number] [facility] 2019-10-07 12:51:31 2019-10-07 13:44:17 Office Visit Leslie Castellanos [facility] [employer] 1.2.840.114 350.1.13.10 4.2.7.2.686 [id number] 107 [id number] [facility] 2019-10-07 13:00:00 2019-10-07 13:00:00 Outpatient R ALTHEAYULIALESLIE LEVINE [facility] [id number] [facility] 2019-10-06 00:00:00 2019-10-06 00:00:00 Telephone Leslie Castellanos [facility] 1.2.840.114 350.1.13.10 4.2.7.2.686 [id number] 107 [id number] [facility] 2019-10-02 14:07:49 2019-10-02 15:15:37 Office Visit Leslie Castellanos [facility] TR[employer] TE[facility] 1.2.840.114 350.1.13.10 4.2.7.2.686 [id number] 107 [id number] [facility] 2019-08-25 09:57:53 2019-08-25 13:09:26 Office Visit AltheayuliaLeslie levine [facility] [employer] [employer] CH[facility] 1.2.840.114 350.1.13.10 4.2.7.2.686 [id number] 107 [id number] [facility] 2019-08-25 00:00:00 2019-08-25 00:00:00 Orders Only Doctor Unassigned, [facility] 1.2.840.114 350.1.13.10 4.2.7.2.686 [id number] [facility] 2019-08-25 00:00:00 2019-08-25 00:00:00 Letter (Out) Leslie Castellanos [facility] [employer] [employer] 1.2.840.114 350.1.13.10 4.2.7.2.686 [id number] 107 [id number] [facility] 2019-03-05 22:28:42 2019-03-05 23:12:00 Emergency Alvin Pace [facility] 1.2.840.114 350.1.13.10 4.2.7.2.686 [id number] [facility] Results Test Description Test Time Test Comments Results Result Co mments Source [facility] [id number] 14:27:00* Test Item Value Reference Range Interpretation Comme nts POCT PREG (test code = 1605) Positive On board controls acceptable with C Line (test code = 3574) Yes POCT PREG LOT # (test code = 3575) POCT PREG TEST DATE ( test code = 3576) [facility] (15292)2023-11-12 03:59:37* Test Item Value Reference Range Interpretation Comme nts NA (test code = 2419303213) 135 mmol/L 135-145 K (test code = 4017506330) 3.4 mmol/L 3.5-5.0 L CL (test code = 7852822649) 103 mmol/L 98-108 CO2 TOTAL (test code = 8795579258) 27 mmol/L 23-31 AGAP (test code = 9129790815) 5 2-16 BUN (test code = 6518025608) 7 mg/dL 7-23 GLUCOSE (test code = 4467546672) 85 mg/dL 70-110 CREATININE (test code = 2160-0) 0.44 mg/dL 0.50-1.04 L TOTAL BILI (test code = 1941919281) 0.5 mg/dL 0.1-1.1 CALCIUM (test code = 6191030899) 9.2 mg/dL 8.6-10.6 T PROTEIN (test code = 6257717069) 7.2 g/dL 6.3-8.2 ALBUMIN (test code = 2807811018) 4.1 g/dL 3.5-5.0 ALK PHOS (test code = 8456535992) 53 U/L 34-122 ALTv (test code = 1742-6) 11 U/L 5-35 AST(SGOT) (test code = 2507263435) 30 U/L 13-40 eGFR (test code = 70223-7) 140.5 mL/min/1.73m2 CKD-EPI eGFR (2020). Assuming creatinine has been stable day-to-day for at least three months, the eGFR indicates Category G1 (>= 90 mL/min/1.73 m2) Lab Interpretation (test code = 43648-0) Abnormal [facility] 03:59:17* Test Item Value Reference Range Interpretation Comme nts LIPASE (test code = 2435275043) 83 U/L 0-220 Lab Interpretation (test cod e = 72829-2) Normal [facility] with [id number] 03:46:41* Test Item Value Reference Range Interpretation [...] 34.8 g/dL 31.6-35.1 RDW-SD (test code = 08823-0) 39.0 fL 39.0-49.9 RDW-CV (test code = 788-0) 11.6 % 12.0-15.5 L PLT (test code = 777-3) 219 166-358 MPV (test code = 22416-8) 10.9 fL 9.5-12.9 NRBC/100 WBC (test code = 0114659446) 0.0 0.0-10.0 NRBC x10^3 (test code = 7464095979) See_Comment [Automated messa ge] The system which generated this result transmitted reference range: 10*3/?L. The reference range was not used to interpret this result as normal/abnormal. GRAN MAT (NEUT) % (test code = 770-8) 61.7 % IMM GRAN % (test code = 2510149964) 0.30 % LYMPH % (test code = 736-9) 28.8 % MONO % (test code = 5905-5) 5.9 % EOS % (test code = 713-8) 2.8 % BASO % (test code = 706-2) 0.5 % GRAN MAT x10^3(ANC) (test code = 9333202479) 7.80 10*3/uL 1.88-7.09 H IMM GRAN x10^3 (test code = 3622627169) 0.04 10*3/uL 0.00-0.06 LYMPH x10^3 (test code = 731-0) 3.64 10*3/uL 1.32-3.29 H MONO x10^3 (test code = 742-7) 0.74 10*3/uL 0.33-0.92 EOS x10^3 (test code = 711-2) 0.35 10*3/uL 0.03-0.39 BASO x10^3 (test code = 704-7) 0.06 10*3/uL 0.01-0.07 Lab Interpretation (test code = 59442-2) Abnormal [facility] Hospital[facility] Stimulating [id number] 19:13:57 * Test Item Value Reference Range Interpretation Comme nts TSH (test code = 5129983457) 1.49 0.45-4.70 Lab Interpretation (test cod e = 21228-7) Normal [facility]2023-10-24 19:13:26* Test Item Value Reference Range Interpretation Comme nts BETA HCG (test code = 8498285343) 656.79 See_Comment [Automated [employer] ge] The system which generated this result transmitted reference range: Non- female and male patients: <5 mIU/mL. The reference range was not used to interpret this result as normal/abnormal. VICENTE (test code = VICENTE) Gestational Age ?Range (mIU/mL) 1-10 ?Weeks ?[id number] Weeks ?43853-08755338-60 Weeks ?6083-80872440-19 Weeks ?8283-993445 Biotin has been reported to cause a negative bias, interpret results relative to patient's use of biotin. [facility]. Metabolic Panel (65328)2023-10-24 18:43:10* Test Item Value Reference Range Interpretation Comme nts NA (test code = 9755773412) 138 mmol/L 135-145 K (test code = 1429162762) 4.1 mmol/L 3.5-5.0 CL (test code = 2907579385) 105 mmol/L 98-108 CO2 TOTAL (test code = 9997587187) 26 mmol/L 23-31 AGAP (test code = 5275060385) 7 2-16 BUN (test code = 1417555687) 11 mg/dL 7-23 GLUCOSE (test code = 3539972220) 100 mg/dL 70-110 CREATININE (test code = 2160-0) 0.55 mg/dL 0.50-1.04 TOTAL BILI (test code = 5405226443) 1.1 mg/dL 0.1-1.1 CALCIUM (test code = 2857619511) 9.1 mg/dL 8.6-10.6 T PROTEIN (test code = 7167279670) 7.5 g/dL 6.3-8.2 ALBUMIN (test code = 9630595224) 4.4 g/dL 3.5-5.0 ALK PHOS (test code = 9843731244) 58 U/L 34-122 ALTv (test code = 1742-6) 16 U/L 5-35 AST(SGOT) (test code = 7838254886) 25 U/L 13-40 eGFR (test code = 13969-7) 133.1 mL/min/1.73m2 CKD-EPI eGFR (20 21). Assuming creatinine has been stable day-to-day for at least three months, the eGFR indicates Category G1 (>= 90 mL/min/1.73 m2) [facility] with [id number] 18:30:51* Test Item Value Reference Range Interpretation [...] 34.5 g/dL 31.6-35.1 RDW-SD (test code = 24426-2) 40.6 fL 39.0-49.9 RDW-CV (test code = 788-0) 11.9 % 12.0-15.5 L PLT (test code = 777-3) 230 166-358 MPV (test code = 86537-7) 10.7 fL 9.5-12.9 NRBC/100 WBC (test code = 7721588310) 0.0 0.0-10.0 NRBC x10^3 (test code = 0579653893) See_Comment [Automated messa ge] The system which generated this result transmitted reference range: 10*3/?L. The reference range was not used to interpret this result as normal/abnormal. GRAN MAT (NEUT) % (test code = 770-8) 64.9 % IMM GRAN % (test code = 5165184087) 0.30 % LYMPH % (test code = 736-9) 25.7 % MONO % (test code = 5905-5) 6.0 % EOS % (test code = 713-8) 2.5 % BASO % (test code = 706-2) 0.6 % GRAN MAT x10^3(ANC) (test code = 9886855427) 6.11 10*3/uL 1.88-7.09 IMM GRAN x10^3 (test code = 0958976164) 0.03 10*3/uL 0.00-0.06 LYMPH x10^3 (test code = 731-0) 2.43 10*3/uL 1.32-3.29 MONO x10^3 (test code = 742-7) 0.57 10*3/uL 0.33-0.92 EOS x10^3 (test code = 711-2) 0.24 10*3/uL 0.03-0.39 BASO x10^3 (test code = 704-7) 0.06 10*3/uL 0.01-0.07 Lab Interpretation (test code = 78283-7) [facility]normal [facility] [id number] 18:27:00 * Test Item Value Reference Range Interpretation Comme nts ABO & RH (test code = 20) O POSITIVE IAT (test code = 1185) Negative [facility] [id number] 15:42:00* Test Item Value Reference Range Interpretation Comme nts POCT PREG (test code = 1605) Negative On board controls acceptable with C Line (test code = 3574) Yes POCT PREG LOT # (test code = 3575) [id number] POCT PREG TEST DATE ( test code = 3576) 2024-08-14 Lab Interpretation (test cod e = 32790-5) Normal [facility] [id number] 16:00:00* Test Item Value Reference Range Interpretation Comme nts POCT PREG (test code = 1605) Negative On board controls acceptable with C Line (test code = 3574) Yes POCT PREG LOT # (test code = 3575) POCT PREG TEST DATE ( test code = 3576) [facility] [id number] 16:00:00* Test Item Value Reference Range Interpretation Comme nts POCT PREG (test code = 1605) Negative On board controls acceptable with C Line (test code = 3574) Yes POCT PREG LOT # (test code = 3575) POCT PREG TEST DATE ( test code = 3576) [facility] URINALYSIS W SPECIFIC [id number] 15:11:00* Test Item Value Reference Range Interpretation [...] clear Lab Interpretation (test cod e = 27208-6) Abnormal [facility] URINALYSIS W SPECIFIC [id number] 15:11:00* Test Item Value Reference Range Interpretation [...] clear Lab Interpretation (test cod e = 39813-4) Abnormal [facility] [id number] 15:09:00* Test Item Value Reference Range Interpretation Comme nts POCT PREG (test code = 1605) Negative On board controls acceptable with C Line (test code = 3574) Yes POCT PREG LOT # (test code = 3575) POCT PREG TEST DATE ( test code = 3576) [facility] [id number] 15:09:00* Test Item Value Reference Range Interpretation Comme nts POCT PREG (test code = 1605) Negative On board controls acceptable with C Line (test code = 3574) Yes POCT PREG LOT # (test code = 3575) POCT PREG TEST DATE ( test code = 3576) [facility] [id number] 02:02:22 * Test Item Value Reference Range Interpretation Comme nts TSH (test code = [id number]) 2.26 See_Comment [Automated messa ge] The system which generated this result transmitted reference range: 0.45 - 4.70 mIU/L. The reference range was not used to interpret this result as normal/abnormal. Lab Interpretation (test code = 74474-2) Normal [facility]. METABOLIC PANEL (22838)2022-12-28 01:32:39* Test Item Value Reference Range Interpretation Comme nts NA (test code = 8707785188) 139 mmol/L 135-145 K (test code = 8938076455) 3.4 mmol/L 3.5-5.0 L CL (test code = 5911330920) 103 mmol/L 98-108 CO2 TOTAL (test code = 6534706330) 24 mmol/L 23-31 AGAP (test code = 1628582019) 12 2-16 BUN (test code = 8974654364) 8 mg/dL 7-23 GLUCOSE (test code = 5924325512) 121 mg/dL 70-110 H CREATININE (test code = 7677848154) 0.57 mg/dL 0.50-1.04 TOTAL BILI (test code = 5833995163) 1.0 mg/dL 0.1-1.1 CALCIUM (test code = 9718453740) 9.2 mg/dL 8.6-10.6 T PROTEIN (test code = 0913965468) 6.9 g/dL 6.3-8.2 ALBUMIN (test code = 3481290451) 4.4 g/dL 3.5-5.0 ALK PHOS (test code = 9962149323) 47 U/L 34-122 ALTv (test code = 1742-6) 16 U/L 5-35 AST(SGOT) (test code = 3016964420) 22 U/L 13-40 eGFR (test code = 7798448270) 133.9 mL/min/1.73m2 VICENTE (test code = VICENTE) [...] imaging tests). Lab Interpretation (test code = 35545-7) [facility]19* Test Item Value Reference Range Interpretation Comme nts LIPASE (test code = 7298009013) 67 U/L 0-220 Lab Interpretation (test cod e = 93738-2) Normal [facility] GDXF3991-74-48 01:20:58* Test Item Value Reference Range Interpretation Comme nts WBC (test code = 6690-2) 9.89 See_Comment [Automated [employer]] The system which generated this result transmitted reference range: 4.30 - 11.10 10*3/?L. The reference range was not used to interpret this result as normal/abnormal. RBC (test code = 789-8) 4.29 See_Comment [Automated messa ge] The system which [...] 34.2 g/dL 31.6-35.1 RDW-SD (test code = 95804-1) 38.2 fL 39.0-49.9 L RDW-CV (test code = 788-0) 11.9 % 12.0-15.5 L PLT (test code = 777-3) 177 See_Comment [Automated messa ge] The system which generated this result transmitted reference range: 166 - 358 10*3/?L. The reference range was not used to interpret this result as normal/abnormal. MPV (test code = 85581-8) 11.6 fL 9.5-12.9 NRBC/100 WBC (test code = 6917763938) 0.0 See_Comment [Automated [employer] ssage] The system which generated this result transmitted reference range: 0.0 - 10.0 /100 WBCs. The reference range was not used to interpret this result as normal/abnormal. NRBC x10^3 (test code = 9914074348) See_Comment [Automated messa ge] The system which generated this result transmitted reference range: 10*3/?L. The reference range was not used to interpret this result as normal/abnormal. GRAN MAT (NEUT) % (test code = 770-8) 64.1 % IMM GRAN % (test code = 1033215994) 0.30 % LYMPH % (test code = 736-9) 28.1 % MONO % (test code = 5905-5) 5.8 % EOS % (test code = 713-8) 1.3 % BASO % (test code = 706-2) 0.4 % GRAN MAT x10^3(ANC) (test code = 3682458966) 6.34 10*3/uL 1.88-7.09 IMM GRAN x10^3 (test code = 3318731066) 0.03 10*3/uL 0.00-0.06 LYMPH x10^3 (test code = 731-0) 2.78 10*3/uL 1.32-3.29 MONO x10^3 (test code = 742-7) 0.57 10*3/uL 0.33-0.92 EOS x10^3 (test code = 711-2) 0.13 10*3/uL 0.03-0.39 BASO x10^3 (test code = 704-7) 0.04 10*3/uL 0.01-0.07 Lab Interpretation (test code = 84441-7) Abnormal [facility] ZURX3567-90-05 01:05:00* Test Item Value Reference Range Interpretation Comme nts POCT PREG (test code = 1605) Negative On board controls acceptable with C Line (test code = 3574) Yes POCT PREG LOT # (test code = 3575) [id number] POCT PREG TEST DATE ( test code = 3576) 2024-03-19 Lab Interpretation (test cod e = 93311-5) Normal [facility] OIDM1954-46-36 15:47:00* Test Item Value Reference Range Interpretation Comme nts POCT PREG (test code = 1605) Negative On board controls acceptable with C Line (test code = 3574) Yes POCT PREG LOT # (test code = 3575) POCT PREG TEST DATE ( test code = 3576) [facility] EZLX2707-23-37 15:47:00* Test Item Value Reference Range Interpretation Comme nts POCT PREG (test code = 1605) Negative On board controls acceptable with C Line (test code = 3574) Yes POCT PREG LOT # (test code = 3575) POCT PREG TEST DATE ( test code = 3576) [facility] Notes Date/Time Note Provider Source 2023-11-15 14:57:53 R+AJ4rUzz2fBmV+F6Me4 0zyrUFwJaEYbVg Wme40DeU0fBORFWoKRSoT+KbAvToWm0972 -04-05T14:57:53 Called pt, discussed lab results. Pt signed ROR for usg, advised provider will FU with poc once she receives the report. Pt verbalized understanding.Ethel Peterson RN 11/15/23 2:58 PM 12300-1Zzupyzmcp encounter RrnuOF7565-31-02X39:58:44Telephone encounter NoteTXT1.2.840.493554.1.13.104.2.7 .2.888202|[id number] for patient hbmj52117-6XhvtZMCZOFLVPIMGdnlqzkx d C-CDA narrative text[address] YrmkKjtphmpbqQzclqktfeHOWT79861537 44YMWUSZVIHWGLHVUKCVAYEJ0856-75-99 T14:58:441.2.840.879727.1.72.3.15| 1.2.840.284966.1.13.104.2.7.2.7278 [id number] [facility] 2023-11-15 11:31:30 9pZ639GJ3NyY7VpYUYZ5 dLIvyLnoB4yjh3 s5nj4XyilNyFjtTU9qbUbfpmoYIPzL3321 -04-05T11:31:30 Maylin Zuniga is a 23 year old femalePt is calling to notify provider that she has ovarian cyst results received from her previous provider and pt is requesting to discuss most recent lab results. Pt is 8wks . Please contact pt at [phone]. 61469-3Hocwyporl encounter VhlxGG3132-54-20O38:32:40Telephone encounter NoteTXT1.2.840.570656.1.13.104.2.7 .2.771755|[id number] for patient esjb07840-8EcobBWVEQYFBLYQOiecxohq d C-CDA narrative cgbn00988169Pfntpd Man[address]TXTX[address] 59SNNZHHZRBMMKOECNKSKZJW7214-99-81 T11:32:401.2.840.118018.1.72.3.15| 1.2.840.523489.1.13.104.2.7.2.7278 [id number] Hector [facility] 2023-11-11 23:49:53 K924LLHIbG5D1u1xd5c7 EySjBrEICD9y+o SLa291O4oziDLsFQtPzt/6hyvSmlZz3600 -04-01T23:49:53 Pt given printed and verbal discharge [...] with steady gait, in no apparent distress 51513-8Zmiaqdudo department TiuyLU8854-16-87M90:50:38Emergen department NoteTXT1.2.840.888173.1.13.104.2.7 .2.925435|[id number] for patient dsos04246-5OovrFRBODYGBOHSRmbdokww d C-CDA narrative usqg310955459Igcinfa A Diaz RNUTMB[address]TXTX[address] 02LBJKGROBEVLTUMPFAEDKPE2877-17-23 T23:50:381.2.840.471975.1.72.3.15| 1.2.840.093586.1.13.104.2.7.2.7278 [id number] Keli Banks RN [facility] 2023-11-11 23:24:06 hCDMaVSD/05C95GtnKBm MsFff0jipJbaUn RX2ZP8BKHszjPcr57Mz4fo8e9FHahr3335 -04-01T23:24:06 Ice chips given 51060-9Vmsmkatvh department EpotYA4870-72-48D74:24:17[facility] NoteTXT1.2.840.336274.1.13.104.2.7 .2.362256|[id number] for patient qgip36106-1WamjBZUSIGZJXMLZezzfrpm d C-CDA narrative svbq402974294JhzdcAnabela Carson RN[address]TXTX[address] 96MNSKZKKEPVQGTSMUWRGBVH5500-98-87 T23:24:171.2.840.157827.1.72.3.15| 1.2.840.344092.1.13.104.2.7.2.7278 79_[id number] Anabela Carson RN [facility] 2023-11-11 22:30:00 /wf68h+DipYhm/Ildx/W apQouxVgLm/wSF ibVtmzE4ukzM4H/VTNnqYP+GlB0Iyl5050 -04-01T22:30:00 Ice chips given 29740-0Ojpsmbqlw department NetcVM9412-91-07M70:44:11[facility] NoteTXT1.2.840.123950.1.13.104.2.7 .2.708383|2438333858JFQvocndzmn for patient qhyu76197-3VvsiRQWZYNQTEUYTtzjrzlo d C-CDA narrative text[address]TXTX[address] 19SYTCVPQBCXPWHCGBXUWJPL4229-94-15 T22:44:111.2.840.734632.1.72.3.15| 1.2.840.023405.1.13.104.2.7.2.7278 [id number] [facility] 2023-11-11 21:43:20 tqzTZOuhYZYLXW7NHsie CsUJf7bUNxKks2 fbF9AhVVbpVx2PDCkvstY5a1fHYYKy2520 -04-01T21:43:20 CC: Pt reports "I can't keep anything down" She ran out of zofran and is using preggie pops? Pt is 7 wks Awake, alert, oriented, resp reg unlabored, skin warm, color appropriate for race, moves all ext without difficulty, amb with steady gait 21616-0Onqsgtyen department Triage avndUJ2270-30-70F07:44:20[facility] Triage noteTXT1.2.840.591328.1.13.104.2.7 .2.820438|1145229060ODRdjiozaus for patient lcmm69757-0Xuavnohvh department NoteLNNARRATIVEFormatted C-CDA narrative vwcp503750312Yavaep R Shehadeh RNUT[address]TXTX[address] 81RXPECHMKVDEAGUREGFYRVB6280-52-13 T21:44:201.2.840.079796.1.72.3.15| 1.2.840.958318.1.13.104.2.7.2.7278 79_[id number] Alisia Guzman BILLIE [facility] 2023-11-01 15:42:51 0FPE/jl/3niTDA6qyx85 9tLmxDQpKAKHXl 74LJY+SFqRPRihsciskwXE0s0P+iHF2881T15:42:51 Maylin Zuniga is a 23 year old femalePt is calling requesting to speak with Rajwinder at clinic to continue conversation regarding insurance questions. Pt connected w/ clinic Pss. 23208-6Fvctvqtxn encounter PfljPR0080-50-89P09:43:27Telephone encounter NoteTXT1.2.840.157032.1.13.104.2.7 .2.549000|6986659365GANsuwqerqs for patient bhup52261-9QnruPLDMWCWCYLKNovrbpqk d C-CDA narrative wuik08163358Snhyws Manzo[address] NjdzPodppzskgNztavdyigXZVH64964673 76MGHZRVPUEBSOYLPYDTMSKN9071-08-07 T15:43:271.2.840.367979.1.72.3.15| 1.2.840.076498.1.13.104.2.7.2.7278 79_[id number] Hector Carver [facility] 2023-10-24 16:52:17 q6xHPeEtTHZyhQY5KeUQ /hxNLosVlLxGig +vjpL1qLLTcgp2oQ8/a+yJ1nP6NBZg2522 -03-14T16:52:17 Patient states that she is tired and hungry and is ready to leave. States "I just had the trans vag but I don't want to wait for the results, she said it would be an hour. My levels looked Ok so I'm just going to leave". AMA form signed, IV removed and patient left the department. 61268-0Bdqrfnmzs department SqaiUV9592-53-63M92:53:11[facility] NoteTXT1.2.840.644179.1.13.104.2.7 .2.840172|[id number] for patient ixwn34550-4MdugSAIWLMLEUFDDywntfaa d C-CDA narrative [address]TXTX[address] 26CHSZTDQNSIRUJOJMYINILJ4849-30-55 T16:53:111.2.840.173494.1.72.3.15| 1.2.840.799547.1.13.104.2.7.2.7278 79_[id number] [facility] 2023-10-24 15:47:36 /93LDVLQDDNda9466LJx V1Oilly5RYXWbD hLyC2sYAb8uF4u9nYtduf9EOrb8vD77609 -03-14T15:47:36 Pt being evaluated in ER at this time. 43243-6Velxegsfh encounter LbdtHG3018-86-59Q04:47:47Telephone encounter NoteTXT1.2.840.571903.1.13.104.2.7 .2.543538|8083470338YTVnecrinib for patient zarh52798-5RzylEZOVWMQFIEJQkunenjm d C-CDA narrative khuo018472979Gphgwcvw Garcia [address]TXTX[address] 58VOLHZYUAIIUMITDBMHWIUX5110-28-08 T15:47:471.2.840.015664.1.72.3.15| 1.2.840.487984.1.13.104.2.7.2.7278 79_[id number] Francine Aparicio CHARLETTE [facility] 2023-10-24 14:46:48 tURmsKhey6N2MlP867by Vw5LHgtch6sv/A My0lLMaQUQ+I9BwCdeo3tARNIZSzHD8598 -03-14T14:46:48 Maylin Zuniga is a 23 year old femalePt is calling to speak with a nurse to see if she is ok to take her VENLAFAXINE XR 37.5 mg 24 hr capsule while . Pt has not been taking the medication and is biting skin [place] [address]-3Qahpjbspc encounter LyruUO4064-79-88G92:50:37Telephone encounter NoteTXT1.2.840.421662.1.13.104.2.7 .2.380138|2071588799TTWgpuuneze for patient xpsl19179-6GjmmCZXTISKBGVBWthznpod d C-CDA narrative lroo600493853Ieigsg P Robinson[address] KzcuWezhjbhwnMlyqafsfqJLJZ88916394 35ZVDFORRYSBRUQXOMMQBGFA6345-07-78 T14:50:371.2.840.393720.1.72.3.15| 1.2.840.383130.1.13.104.2.7.2.7278 79_[id number] Andriy Godinez [facility] 2023-10-24 11:37:27 nQkJV2688Ic+GBtBEQj6 W7o41LovrOxZhy uYeFKIJL8ZXoOPgoGBifmkZTxM5K474598 -03-14T11:37:27 Patient reports being 6 weeks and began cramping this AM with no discharge. Patient has not had first appointment yet with OB which is scheduled for the . X2Jvethliogwoxpo signed by Manda Harrell RN at 10/24/2023 11:38 AM GGE84976-9Tveluotvs department Triage cozgYJ8040-73-72J36:38:44[facility] Triage noteTXT1.2.840.276306.1.13.104.2.7 .2.846163|[id number] for patient wkkh73571-2Wpcvhxcce department NoteLNNARRATIVEFormatted C-CDA narrative hmpn494184306Aoha M Hayes RN[address] KewpBjgjabjunKiibiqxrgJKKO19393177 03JVMYOAJWLMXMRLMMQFCZAT2694-27-09 T11:38:441.2.840.745954.1.72.3.15| 1.2.840.414684.1.13.104.2.7.2.7278 79_[id number] Manda Harrell RN [facility] 2023-08-13 11:31:01 Mrt9PutIPqUrG/OedFFe kiln car repairer+tC9GKanOQxp i3pGahrWFzzkaZZ64dyx3xyKwzbPVU1175 -01-02T11:31:01 Maylin Zuniga is a 23 year old femaleovarian cysts on one or two ovaries x AprilPatient called to schedule appt with PGY.Please contact pt at [phone] (home) 27209-4Pqlpagxkt encounter UeewZR8486-60-06C52:31:38Telephone encounter NoteTXT1.2.840.299585.1.13.104.2.7 .2.117104|[id number] for patient iawh07821-4WcjmOZSCUYVFCOAKryyfnmd d C-CDA narrative ftdd686846701Kexrpslrl L [address]TXTX[address] 28GZSUUQJAKOUJKXQKBXXKUV4712-93-33 T11:31:381.2.840.552237.1.72.3.15| 1.2.840.745843.1.13.104.2.7.2.7278 79_[id number] Avelina Crandall [facility] 2023-04-24 12:05:28 FXaTU2geIqMUwimDu7Ac Xwvmc2FrDep0bu GTLBoegNO7s66gDP2Uv8ohPo8HA3xo8267 -09-13T12:05:28 Pt left before obtaining discharge paperwork. 48319-6Nyinsfvhl department AdweGN5228-42-38D92:05:42Emergency department NoteTXT1.2.840.603389.1.13.104.2.7 .2.316387|6067316713PGUiirqxfsn for patient dqfw55716-6VanpOJ242873389Lckvhgf Fief RN[address]TXTX[address] 28CYPSUQYXTSUMZJZOLWTLEW2667-65-05 T12:05:421.2.840.289145.1.72.3.15| 1.2.840.050038.1.13.104.2.7.2.7278 79_[id number] Anne Hall RN [facility] 2023-04-24 10:09:17 SWt7wM4spavmJ2PKm8ox b0iLiDJBoZBfWE bM4QEJ6vXlXNsEoodGIFGbGp7knO2d8736 -09-13T10:09:17 Patient states "I have one positive test and one negative test for . So I just wanted to make sure."Patient here for confirmation. 42344-3Rerzdgbec department Triage cxzgAY0820-50-56N93:09:58[facility] Triage noteTXT1.2.840.921827.1.13.104.2.7 .2.472000|7126490182MGHunpapkxi for patient qcmx01342-1Gttyzuqud department BgmbNC547301762Joipp S Cryer RN[address]TXTX[address] 45NIDEFOAOSVDAXZIBIBREBU9878-75-45 T10:09:581.2.840.939553.1.72.3.15| 1.2.840.656451.1.13.104.2.7.2.7278 79_[id number] Amanda Hoang RN [facility] 2023-04-08 08:38:40 rtzKNAe8ILyBUaXeixRR lnte3a/2Uib9K5 3bFmRyHMqLCwEntkyQV+7a5ugNxvJR6078 -08-28T08:38:40 Spoke with patient, verbalized understanding medication is at the pharmacy. 64847-4Mpdwyoipq encounter OpapKC0621-99-08V64:40:04Telephone encounter NoteTXT1.2.840.274532.1.13.104.2.7 .2.334912|9610052162DXDcpvtddvl for patient pwyy11065-2ZrwuEE452629165Jpqroj L Reid RN[address]TXTX[address] 30FIJUCFAUFFQYNZDNWEMSYX4811-27-35 T08:40:041.2.840.673920.1.72.3.15| 1.2.840.670069.1.13.104.2.7.2.7278 79_[id number] Nora Alonso RN [facility] 2023-04-04 16:31:40 EUxNiq4SPRfQg4GJtp5X yglWeZaVOQPpGe lIglb82IZHbtgVIgn53AfgUAYZ4SrD1144 -08-24T16:31:40 I have sent nausea medications to the pharmacyPlease let patient know 79881-5Qeuuovowd encounter BtwuBU7621-44-41K68:32:32Telephone encounter NoteTXT1.2.840.362702.1.13.104.2.7 .2.794014|[id number] for patient iogq41175-7DhzaMVQJXMJCCY[address] WxtnXmounldphJbelnocahVWIS17843180 86UHRQSOWHZVTGGRIGSZXBGF9508-16-99 T16:32:321.2.840.773308.1.72.3.15| 1.2.840.424187.1.13.104.2.7.2.7278 79_[id number] [facility] 2023-04-01 13:30:00 TG3Ip13H7JYMtrQS1dQ2 OydUVNhzHRozUI gk832ErUFl0EoX3KqNySXY2qDzmfrr7781 -08-21T13:30:00 Images from the original note were not included.Venipuncture collection performed by clean technique on the left anticubitus. Total of 1 attempts were made. Slight pressure and a bandage/dressing were applied to the site(s). The patient experienced no complications. The following specimens were processed according to instructions and sent to [facility] laboratories per lab order on 04/01/2023: LT BLUE SST 3 RED LAV 1 PPT DK GREEN (LiHep) DK GREEN (SodH) KRISHNAN DK BLUE (K2) DK BLUE (S) ACD Blood Culture NIPT/NTD 63924-6Tnzwh DlceWH3730-22-50K35:37:41Nurse NoteTXT1.2.840.042227.1.13.104.2.7 .2.943603|[id number] for patient ugqg89582-3Lpepb [address] 95JHGEMKMZGOZRKJIXUPFVYV5304-22-54 T13:37:411.2.840.741474.1.72.3.15| 1.2.840.470050.1.13.104.2.7.2.7278 79_[id number] [facility] 2023-03-13 14:39:33 48axWs0owrdAZtFghdCX 4nsJR7kTeGyi5t Qvui5YqW3OOo2VHE7B2Ed0JPHmtqrj6011 -08-02T14:39:33 Rx sent, let patient know, and to follow-up as scheduled. 58124-9Ctrtoynzi encounter ZruyBS6891-05-86B78:39:33Telephone encounter NoteTXT1.2.840.670953.1.13.104.2.7 .2.019496|[id number] for patient vgro54258-2RxnuYLNAEMFXMA[address]TXTX[address] 18ZSQNDTOKJHOZZJSVJDJMEX5748-90-28 T14:39:331.2.840.913778.1.72.3.15| 1.2.840.373063.1.13.104.2.7.2.7278 79_[id number] [facility] 2023-03-11 08:25:31 z7vYpsAnXh6RmoS4UFj+ SnT9FhEk5qHTew 1z9OyS8WiOSOSi9w6NIc6DXi6yF+xn3221T08:25:31 NICOLE 02/14/23NOV 03/14/23LRD 02/14/23Routing to correct pool 59910-8Dovjgedet encounter VvhpMD7277-53-85X01:26:31Telephone encounter NoteTXT1.2.840.455257.1.13.104.2.7 .2.354175|0399077200YFZjsjoxvbh for patient msxa70573-1LbttNTUI-SPKWUVGAPHOR-R SYCHIATRYUT[address] YkmkAosryilkvRrhwnloxqFWND11640321 76ORSQXAEIVCPBEJRQXZTSWF9076-77-58 T08:26:311.2.840.556581.1.72.3.15| 1.2.840.880550.1.13.104.2.7.2.7278 [id number] PN-PSYCHIATRY [facility]
[2023-11-23] MEDS ORDERED: Ringers Lactate 1,000 ML IV ONE (22:34)
[2023-11-23] MEDS ORDERED: DIPHENHYDRAMINE 50 MG/ML VIAL ONE (22:34)
[2023-11-23] MEDS ORDERED: METOCLOPRAMIDE 10 MG/2mL INJ ONE (22:34)
[2023-11-23 22:52] LABS: Specific Gravity 1.007 (1.005-1.030); Urine Bilirubin NEGATIVE (Negative); Urine Blood Negative (Negative); Urine Clarity Clear (Clear); Urine Color Colorless (Yellow); Urine Glucose NEGATIVE (Negative); Urine Ketones NEGATIVE (Negative); Urine Microscopic Reflex YN NO UMIC; Urine Nitrite NEGATIVE (Negative); Urine Protein NEGATIVE (Negative); Urine Urobilinogen Normal (Normal); Urine pH 6.5 (5.0-7.0)
[2023-11-23 22:54] LABS: Absolute Basophils 0.1 K/uL (0-0.5); Absolute Eosinophils 0.2 K/uL (0-0.5); Absolute Lymphocytes (CBC) 2.4 K/uL (0.7-4.9); Absolute Monocytes 0.6 K/uL (0.1-1.3); Absolute Neutrophil 6.9 K/uL (1.8-8.0); Basophils % 0.6 % (0-1.3); Eosinophils % 2.1 % (0-4.4); Hematocrit 36.8 % (36.0-45.0); Hemoglobin 12.8 g/dL (12.0-15.0); Lymphocytes % 23.7 % (15.3-44.8); MCH 31.9 pg (27.0-35.0); MCHC 34.7 g/dL (32.0-36.0); MCV 91.9 fL (80-100); MPV 9.4 fL (7.6-11.3); Monocytes % 5.8 % (3.3-12.3); Neutrophils % 67.8 % (41.7-73.7); Nucleated Red Blood Cells % 0.1 % (0-0); Platelets 210 thou/uL (152-406); RBC Red Blood Cell Count 4.01 M/uL (3.86-4.86); Red Cell Distribution Width 12.5 % (12.1-15.2)
[2023-11-23 23:02] LABS: Specific Gravity 1.007 (1.005-1.030)
[2023-11-23 23:27] LABS: Anion Gap 10.6 mEq/L (5.0-15.0); Potassium 3.6 mEq/L (3.5-5.1)
--- NOTE | 2023-11-24 00:06 | ER ---
Nurse's Notes [facility] Name: Maylin Zuniga Age: 23 yrs Sex: Female : 2000 Arrival Date: 11/23/2023 Time: 21:18 Bed 18 Private MD: Diagnosis: related conditions, unspecified, first trimester;Nausea with vomiting, unspecified Presentation: 11/22 21:34 Chief complaint: Patient states: NAUSEA AND VOMITING. PT REPORTS THAT SHE IS 9 WEEKS cm10 . PT REPORTS THAT SHE HAS RIGHT SIDED PAIN WHEN VOMITING. NO VAGINAL BLEEDING. Coronavirus screen: Client denies travel out of the [place] in the last 14 days. At this time, the client does not indicate any symptoms associated with coronavirus-19. Ebola Screen: Patient denies travel to an Ebola-affected area in the 21 days before illness onset. No symptoms or risks identified at this time. Initial Sepsis Screen: Does the patient meet any 2 criteria? No. Patient's initial sepsis screen is negative. Does the patient have a suspected source of infection? No. Patient's initial sepsis screen is negative. Risk Assessment: Do you want to hurt yourself or someone else? Patient reports no desire to harm self or others. Onset of symptoms was November 23, 2023. 21:34 Method Of Arrival: Ambulatory cm10 21:34 Acuity: VINNY 3 cm10 Triage Assessment: 21:38 General: Appears in no apparent distress. comfortable, well groomed, well developed, pf1 Behavior is calm, cooperative, appropriate for age, quiet. 21:38 Pain: Denies pain. GI: Reports nausea, vomiting. : Reports 9 weeks . pf1 HOSPITALITY RECRUITER: 21:45 2, Full Term 0, Premature 0, 1, Living 0, unknown pf1 Historical: - Allergies: 21:35 NKDA; cm10 - PMHx: 21:35 Anxiety; depressive disorder; ovarian cyst rupture (depressive disorder); cm10 - Immunization history:: Adult Immunizations up to date. - Infectious Disease History:: Denies. - Social history:: Smoking status: Patient denies any tobacco usage or history of. Screenin:42 [facility] ED Fall Risk Assessment (Adult) History of falling in the last 3 months, pf1 including since admission No falls in past 3 months (0 pts) Confusion or Disorientation No (0 pts) Intoxicated or Sedated No (0 pts) Impaired Gait No (0 pts) Mobility Assist Device Used No (0 pt) Altered Elimination No (0 pt) Score/Fall Risk Level 0 - 2 = Low Risk Oriented to surroundings, Maintained a safe environment, Educated pt \T\ family on fall prevention, incl call for assistance when getting out of bed, Assessed \T\ reinforced patient's understanding of fall precautions, Provided non-skid footwear, Hourly rounding (assess needs \T\ fall precautionary measures) done, Used ambulatory aids as needed (educated on \T\ assisted with), Used gait belt as appropriate. Abuse screen: Denies threats or abuse. Nutritional screening: No deficits noted. Tuberculosis screening: No symptoms or risk factors identified. Assessment: 21:28 General: Appears comfortable, Behavior is calm, cooperative. Pain: Complains of pain in ha1 right upper quadrant and right lower quadrant Pain does not radiate. Pain at worst was 6 out of 10 on a pain scale. Neuro: Level of Consciousness is awake, alert, obeys commands, Oriented to person, place, time, situation. Cardiovascular: Patient's skin is warm and dry. Respiratory: Airway is patent Respiratory effort is even, unlabored, Respiratory pattern is regular, symmetrical. GI: Abdomen is round non-distended, Bowel sounds present X 4 quads. Reports lower abdominal pain, upper abdominal pain, nausea, vomiting. : No signs and/or symptoms were reported regarding the genitourinary system. Derm: Skin is pink, warm \T\ dry. Musculoskeletal: Circulation, motion, and sensation intact. Range of motion: intact in all extremities. 23:00 Reassessment: back from Ultrasound. ha1 23:56 Reassessment: Patient and/or family updated on plan of care and expected duration. Pain ha1 level reassessed. Patient is alert, oriented x 3, equal unlabored respirations, skin warm/dry/pink. Patient denies pain at this time. Patient states feeling better. Patient states symptoms have improved. Vital Signs: 21:34 BP 143 / 102; Pulse 66; Resp 18; Temp 98.1(O); Pulse Ox 99% on R/A; Weight 61.23 kg; cm10 Height 5 ft. 4 in. ; Pain 0/10; 21:52 BP 121 / 69; Pulse 63; Resp 17 S; Pulse Ox 99% on R/A; ha1 23:00 BP 136 / 68; Pulse 63; Resp 17 S; Pulse Ox 100% ; ha1 23:55 BP 133 / 67; Pulse 63; Resp 17 S; Pulse Ox 100% on R/A; ha1 21:34 Body Mass Index 23.17 (61.23 kg, 162.56 cm) cm10 21:34 Pain Scale: Adult cm10 ED Course: 21:28 Patient arrived in ED. im 21:28 Patient has correct armband on for positive identification. Placed in gown. Bed in low ha1 position. Call light in reach. Side rails up X 1. 21:31 Thomas Nieto PA is PHCP. cp 21:31 Alvin Barajas MD is Attending Physician. cp 21:35 Triage completed. cm10 21:36 Arm band placed on Patient placed in an exam room, on a stretcher. cm10 21:40 No provider procedures requiring assistance completed. Inserted saline lock: 22 gauge pf1 in right antecubital area, using aseptic technique. Blood collected. 21:50 Kaylee Schneider, RN is Primary Nurse. ha1 22:30 Abo/rh Typing Sent. ha1 22:30 Basic Metabolic Panel Sent. ha1 22:30 CBC with Diff Sent. ha1 22:30 Test, Urine Sent. ha1 22:30 Quantitative Hcg Sent. ha1 22:30 Urinalysis w/ reflexes Sent. ha1 23:17 1St Trimest Single 1St Fetus In Process Unspecified. EDMS 11/23 00:15 IV discontinued, intact, bleeding controlled, No redness/swelling at site. Pressure ha1 dressing applied. 00:16 Provided Education on: medication administration . ha1 Administered Medications: 11/22 23:00 Drug: Lactated Ringers Solution IV 1000 ml IV at 150 ml/hr continuous Route: IV; Rate: ha1 150 ml/hr; Site: right antecubital; 11/23 00:14 Follow up: Response: No adverse reaction; IV Status: Completed infusion; IV Intake: ha1 1000ml 11/22 23:00 Drug: metoCLOPramide IVP 10 mg IVP once; over 1 to 2 minutes Route: IVP; Site: right ha1 antecubital; 11/23 00:14 Follow up: Response: No adverse reaction; Marked relief of symptoms ha1 11/22 23:35 Not Given (Patient Refused): [id number] mg IVP once ha1 Medication: 11/23 00:16 VIS not applicable for this client. ha1 Intake: 00:14 IV: 1000ml; Total: 1000ml. ha1 Outcome: 00:05 Discharge ordered by . cp 00:15 Discharged to home ambulatory, ha1 00:15 Condition: stable 00:15 Discharge instructions given to patient, Instructed on discharge instructions, follow up and referral plans. medication usage, Demonstrated understanding of instructions, follow-up care, medications, Prescriptions given X 1, 00:16 Patient left the ED. ha1 Signatures: Dispatcher [employer] EDMS Thomas Nieto PA PA cp Ayala, Heidy RN RN ha1 Annamarie Hurley RN RN pf1 Albina Pop Clarissa RN RN cm10
--- NOTE | 2023-11-24 00:07 | EDPHYS ---
Physician Documentation [facility] Name: Maylin Zuniga Age: 23 yrs Sex: Female : 2000 Arrival Date: 11/23/2023 Time: 21:18 Bed 18 Private MD: ED Physician Alvin Barajas HPI: 11/22 22:20 This 23 yrs old Female presents to ER via Ambulatory with complaints of cp Vomiting, Dehydration, 9 Weeks . 22:20 The patient presents to the emergency department with nausea, that is moderate, cp vomiting, that is intermittent. Onset: The symptoms/episode began/occurred gradually, and became worse today. Possible causes: . Associated signs and symptoms: Pertinent negatives: diarrhea, fever, GI bleeding. Patient presents to ED with c/o nausea and vomiting that has been worse today. Patient reports being approximately 9 weeks with her second . First ended with miscarriage. Patient denies vaginal bleeding, denies leakage of clear fluid. 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 - Infectious Disease History:: Denies. - Social history:: Smoking status: Patient denies any tobacco usage or history of. ROS: 22:25 Constitutional: Negative for body aches, chills, fever, poor PO intake, cp 22:25 Eyes: Negative for injury, pain, redness, and discharge, cp 22:25 ENT: Negative for drainage from ear(s), ear pain, sore throat, difficulty swallowing, difficulty handling secretions, 22:25 Cardiovascular: Negative for chest pain, 22:25 Respiratory: Negative for cough, shortness of breath, wheezing, 22:25 Abdomen/GI: Positive for nausea and vomiting, Negative for diarrhea, constipation, anorexia, 22:25 Neuro: Negative for dizziness, headache, weakness, 22:25 All other systems are negative, Exam: 22:30 Constitutional: The patient appears in no acute distress, alert, awake, non-toxic, well cp developed, well nourished, 22:30 Head/Face: Normocephalic, atraumatic. 22:30 Eyes: Periorbital structures: appear normal, Conjunctiva: normal, no exudate, no injection, Sclera: no appreciated abnormality, Lids and lashes: appear normal, bilaterally, 22:30 ENT: External ear(s): are unremarkable, Nose: is normal, Mouth: Lips: moist, Oral mucosa: moist, Posterior pharynx: Airway: no evidence of obstruction, patent, 22:30 Chest/axilla: Inspection: normal, 22:30 Cardiovascular: Rate: normal, Rhythm: regular, 22:30 Respiratory: the patient does not display signs of respiratory distress, Respirations: normal, no use of accessory muscles, no retractions, labored breathing, is not present, Breath sounds: are clear throughout, no decreased breath sounds, no stridor, no wheezing, 22:30 Abdomen/GI: Inspection: abdomen appears normal, Bowel sounds: active, all quadrants, Palpation: abdomen is soft and non-tender, in all quadrants, 22:30 Back: CVA tenderness, is absent, Vital Signs: 21:34 BP 143 / 102; Pulse 66; Resp 18; Temp 98.1(O); Pulse Ox 99% on R/A; Weight 61.23 kg; cm10 Height 5 ft. 4 in. ; Pain 0/10; 21:52 BP 121 / 69; Pulse 63; Resp 17 S; Pulse Ox 99% on R/A; ha1 23:00 BP 136 / 68; Pulse 63; Resp 17 S; Pulse Ox 100% ; ha1 23:55 BP 133 / 67; Pulse 63; Resp 17 S; Pulse Ox 100% on R/A; ha1 21:34 Body Mass Index 23.17 (61.23 kg, 162.56 cm) cm10 21:34 Pain Scale: Adult cm10 MDM: 21:31 Patient medically screened. 23:00 Differential diagnosis: gastritis, viral gastroenteritis, gastroenteritis, dehydration, cp electrolyte abnormality, hyperemesis . 11/23 00:05 Data reviewed: vital signs, nurses notes, lab test result(s), and as a result, I will cp discharge patient. 00:05 I considered the following discharge prescriptions or medication management in the emergency department Medications were administered in the Emergency Department. See MAR. Counseling: I had a detailed discussion with the patient and/or guardian regarding the historical points, exam findings, and any diagnostic results supporting the discharge/admit diagnosis, lab results. ED course: Patient requesting discharge to home at this time prior to results of US. Vomiting resolved and patient tolerating po fluids. 11/22 22:19 Order name: Abo/rh Typing; Complete Time: 23:41 cp 11/22 22:19 Order name: Basic Metabolic Panel; Complete Time: 23:41 cp 11/22 23:41 Interpretation: Normal except: NA 135; CRE 0.39. cp 11/22 22:19 Order name: CBC with Diff; Complete Time: 23:41 cp 11/22 22:19 Order name: Test, Urine; Complete Time: 23:41 cp 11/22 22:19 Order name: Quantitative Hcg; Complete Time: 23:41 cp 11/22 22:19 Order name: Urinalysis w/ reflexes; Complete Time: 23:41 cp 11/22 22:43 Order name: 1St Trimest Single 1St Fetus EDMS 11/22 22:19 Order name: IV Saline Lock; Complete Time: 22:30 cp 11/22 22:19 Order name: Labs collected and sent; Complete Time: 22:30 cp 11/22 22:19 Order name: NPO; Complete Time: 22:30 cp 11/22 23:43 Order name: PO challenge; Complete Time: 23:55 cp Administered Medications: 11/22 23:00 Drug: Lactated Ringers Solution IV 1000 ml IV at 150 ml/hr continuous Route: IV; Rate: ha1 150 ml/hr; Site: right antecubital; 11/23 00:14 Follow up: Response: No adverse reaction; IV Status: Completed infusion; IV Intake: ha1 1000ml 11/22 23:00 Drug: metoCLOPramide IVP 10 mg IVP once; over 1 to 2 minutes Route: IVP; Site: right ha1 antecubital; 11/23 00:14 Follow up: Response: No adverse reaction; Marked relief of symptoms ha1 11/22 23:35 Not Given (Patient Refused): [id number] mg IVP once ha1 Disposition Summary: 11/24/23 00:05 Discharge Ordered Notes: Location: Home cp Problem: new cp Symptoms: have improved cp Condition: Stable cp Diagnosis - related conditions, unspecified, first trimester cp - Nausea with vomiting, unspecified cp Followup: cp - With: Private Physician - When: 1 - 2 days - Reason: Recheck today's complaints Discharge Instructions: - Discharge Summary Sheet cp - Abdominal Pain During cp - Nausea and Vomiting, Adult cp - Care cp - First Trimester of cp Forms: - Medication Reconciliation Form cp - Thank You Letter cp - Antibiotic Education cp - Prescription Opioid Use cp - Patient Portal Instructions cp - Leadership Thank You Letter cp Prescriptions: - promethazine 25 mg Oral Tablet - take 1 tablet ORAL route every 6 hours As needed; 20 tablet; Refills: 0, cp Product Selection Permitted Addendum: 11/25/2023 09:43 I was immediately available for consultation during this patient's visit. I did not e c2 personally see the patient or discuss the patient with the KENDELL. . Signatures: Dispatcher [employer] EDMS Thomas Nieto PA PA cp Ayala, Heidy RN RN ha1 Suni Meeks RN RN cm10 Alvin Barajas MD MD ec2 Corrections: (The following items were deleted from the chart) 11/22 22:43 22:19 Transvaginal Ob+US.RAD.ELIZABETHZ ordered. EDIN EDMS
[2023-11-24 08:43] VITALS: BP 136/68; TEMP 98.1; O2SAT 100
--- NOTE | 2023-11-26 22:10 | RAD REPORT ---
EXAM DESCRIPTION: US - 1St Trimest Single 1St Fetus - 11/23/2023 11:15 pm CLINICAL HISTORY: Vaginal bleeding. COMPARISON: None. TECHNIQUE: Grayscale and color flow sonographic evaluation of the pelvis. FINDINGS: There is a single viable intrauter[facility]. cardiac activity is present with normal heart rate measuring 173 bpm. A normal yolk sac is visualized. [place]-rump length measures 2.1 cm. Small volume of subchorionic hemorrhage, measuring 2.3 x 0.5 x 1.8 cm Right ovary measures 6.9 x 5 x 5.8 cm. Normal vascular flow. Probable corpus luteal cyst in the right ovary. Left ovary measures 3.9 x 2.7 x 2.4 cm. Normal vascular flow. No adnexal masses. Free fluid adjacent to the right ovary. IMPRESSION: 1. Single viable intrauterine gestation measuring 10 weeks and 0 days. 2. Small volume of subchorionic hemorrhage measuring 1.8 x 0.5 x 2.3 cm. 3. Probable corpus luteal cyst in right ovary. Free fluid in the right adnexa. Electronically signed by: La Dupont MD 11/24/2023 12:31 AM CDT Due to temporary technical issues with the PACS/Fluency reporting system, reports are being signed by the in house radiologists without review as a courtesy to insure prompt reporting. The interpreting radiologist is fully responsible for the content of the report.
== END 2023-11-24 00:16 | disposition home or self-care (01) ==
LOC: ER 21:18
DX: O21.9 Vomiting of pregnancy, unspecified (principal); O26.891 Other specified pregnancy related conditions, first trimester; Z3A.09 9 weeks gestation of pregnancy
CPT/HCPCS: 96361; 85025; 80048; 36415; 86900; 81025; 86901; 84702; 81003; 76801; 96374; 99284; J2765; J7120; J1200

== ENCOUNTER 2024-01-07 21:10 | Emergency (ER) | payer OTHER ==
--- OUTSIDE RECORDS SUMMARY | 2024-01-07 21:19 | XMS REPORT | Continuity of Care Document ---
Author Name Unknown Address [address] [place] [address] [facility] Address 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 Name Role Phone Robinson Eliza JENNINGS Primary Care Physician [phone] LELSIE CASTELLANOS Attending Clinician Unavail able RANDI DO Attending Clinician Unavailable Risk, Hpc-Jlzml-Sc/High Attending Clinician Unav ailable Randi Baxter Attending Clinician Leslie Diane Attending Clinician + ERVIN BOWSER Attending Clinician Unav ailable Ultrasound, Ang-Mfm Attending Clinician Ervin Chappell MD Attending Clinician + Carla Vaughn CNM Attending Clinician [phone] CARLA VAUGHN Attending Clinician Unavaila ARNOLD Aguilar Attending Clinician Unavailable Arnold Blum MD Attending Clinician [phone] Lawson COCHRAN Attending Clinician Unavailable Sydney Lubin MD Attending Clinician [phone] Katarina Attending Clinician Unavailable NACHO NGUYEN Attending Clinician Unavailable Nacho Nguyen MD Attending Clinician [phone] Pgy3 Attending Clinician Unavailable SYDNEY LUBIN Attending Clinician Unavailable BRUNA ARRINGTON Attending Clinician Unavailable BRUNA ARRINGTON Attending Clinician Unavailable Doctor Unassigned, [place] Attending Clinician U navailable Pgy2 Attending Clinician Unavailable Trevor TRIM DIE MAKER, Gretchen Attending Clinician [phone] ELIZA OLIVIER Attending Clinician Unavailable RAHEL DICKSON Attending Clinician Unavailable Randolph TRIM DIE MAKER, Rahel Attending Clinician [phone] Robinson TRIM DIE MAKER, Eliza Attending Clinician [phone], [facility] Attending Clinician Unavailable YAW BRO Attending Clinician Unavailable Yaw Bro DO Attending Clinician [phone] Nurse, [facility] Attending Clinician Un available Unknown, Attending Attending Clinician Unavailab le UNKNOWN, ATTENDING Attending Clinician Unavailab BAILEE Vivar Attending Clinician Unavailable Provider, Brycechalfredo Temp Attending Clinician Erica vailable ROSALES CHAPIN Attending Clinician UnavailROSALES [place] Attending Clinician UnavailROSALES Helm Attending Clinician Unavailradha Barrientos TRIM DIE MAKER, Jacob Love Attending Clinician + [phone] JACOB BARRIENTOS Attending Clinician Unavailab le Visit, [facility] Nurse Attending Clinician Unava ilable ALIVIA LEE Attending Clinician Unavaila ble Jesus TRIM DIE MAKER, Alivia Liriano Attending Clinician [phone] CINDY APARICIO Attending Clinician Unavailradha Jones RN, Rayne Godoy Attending Clinician Unavailab NI Mckeon Attending Clinician Unavailable Joel Matt DO Attending Clinician [phone] Alysia TRIM DIE MAKER, Elena Attending Clinician [phone] Provider, [facility] Attending Clinician Un available ELENA HATFIELD Attending Clinician Unavailable Fletcher Ramesh MD Attending Clinician [phone] Frank WISE, Ethel Attending Clinician Erica ALCANTARA, Alvin Lang Attending Clinician Radha_Alfredo Admitting Clinician Unavailable NACHO NGUYEN Admitting Clinician Unavailable YAW BRO Admitting Clinician Unavailable Payers Payer Name Policy Type Policy Number Effective Date Expirati on Date Source [facility] [id number] 2023 00:00:00 [place] [id number] 2023 00:00:00 [place] [id number] [facility] [id number] 2019 00:00:00 Problems Condition Name Condition Details Condition Category Status Onset Date Resolution Date Last Treatment Date Treating Clinician Comments Source 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 Repeat pap 11/2024 [facility] History of miscarriag e History of miscarriag e Disease Active 4-04 00:00: 00 [facility] Nausea/vom iting in Nausea/vom iting in Disease Active 4-04 00:00: 00 [facility] Chlamydia trachomati s infection of lower genitourin jeremy sites Chlamydia trachomati s infection of lower genitourin jeremy sites Disease Active 2-13 00:00: 00 [facility] Need for prophylact ic vaccinatio n and inoculatio n against influenza Need for prophylact ic vaccinatio n and inoculatio n against influenza Disease Active 3-24 00:00: 00 [facility] Feeling sad Feeling sad Disease Active 5-21 00:00: 00 [facility] Encounter for other general counseling or advice on contracept ion Encounter for other general counseling or advice on contracept ion Disease Active 5-07 00:00: 00 [facility] Absence of menstruati on Absence of menstruati on Disease Active 11-02 00:00: 00 [facility] Breast tenderness in female Breast tenderness in female Disease Active 11-02 00:00: 00 [facility] Class 1 obesity due to excess calories with serious comorbidit y and body mass index (BMI) of 34.0 to 34.9 in adult Class 1 obesity due to excess calories with serious comorbidit y and body mass index (BMI) of 34.0 to 34.9 in adult Disease Active 11-02 00:00: 00 [facility] BMI 34.0-34.9, adult BMI 34.0-34.9, adult Disease Active 11-02 00:00: 00 [facility] Elevated blood pressure reading without diagnosis of hypertensi on Elevated blood pressure reading without diagnosis of hypertensi on Disease Active 10-02 00:00: 00 [facility] Depression during Depression during Disease Active 08-20 00:00: 00 Overview: Formattin g of this note might be different from the original. Reports stopped meds 10/15/23 reports stable mood [facility] Other depression Other depression Disease Active 08-20 00:00: 00 [facility] Nexplanon removal Nexplanon removal Disease Active 08-20 00:00: 00 [facility] Screening examinatio n for STD (sexually transmitte d disease) Screening examinatio n for STD (sexually transmitte d disease) Disease Active 08-20 00:00: 00 [facility] BMI 27.0-27.9, adult BMI 27.0-27.9, adult Disease Active 2018-08 00:00: 00 [facility] BMI 29.0-29.9, adult BMI 29.0-29.9, adult Disease Active 2018-08 00:00: 00 [facility] HPV vaccine counseling HPV vaccine counseling Disease Active 2018-08 00:00: 00 [facility] Over weight Over weight Disease Active 2018-08 00:00: 00 [facility] Lump or mass in breast Lump or mass in breast Disease Active 2015-0 4-13 00:00: 00 [facility] Allergies, Adverse Reactions, Alerts Allergy Name Allergy Type Status Severity Reaction(s) Onset Date Inactive Date Treating Clinician Comments Source NO KNOWN ALLERGIE S Drug Class Active [facility] Social History Social Habit Start Date Stop Date Quantity Comments Source ASSERTION 2023-10-02 00:00:00 [facility] Alcoholic beverage intake 2024-01-01 00:00:00 2024-01-01 00:00:00 Current drinker of alcohol (finding) [facility] History of Social function 2023-12-10 00:00:00 2023-12-10 00:00:00 [facility] Alcohol intake 2023-12-10 00:00:00 2023-12-10 00:00:00 Current drinker of alcohol (finding) [facility] Exposure to SARS-CoV-2 (event) 2022-12-24 00:00:00 2023-01-03 09:29:00 Not sure [facility] History SDOH Alcohol Frequency 2023-01-01 00:00:00 2023-01-01 00:00:00 1 [facility] History SDOH Alcohol Std Drinks 2023-01-01 00:00:00 2023-01-01 00:00:00 0 [facility] History SDOH Alcohol Binge 2023-01-01 00:00:00 2023-01-01 00:00:00 1 [facility] History SDOH Social Connections Phone 2023-01-01 00:00:00 2023-01-01 00:00:00 4 [facility] History SDOH Social Connections Get Together 2023-01-01 00:00:00 2023-01-01 00:00:00 2 [facility] History SDOH Social Connections Amish 2023-01-01 00:00:00 2023-01-01 00:00:00 3 [facility] History SDOH Social Connections Membership 2023-01-01 00:00:00 2023-01-01 00:00:00 2 [facility] History SDOH Social Connections Meetings 2023-01-01 00:00:00 2023-01-01 00:00:00 1 [facility] History SDOH Social Connections Living 2023-01-01 00:00:00 2023-01-01 00:00:00 7 [facility] History SDOH Physical Activity DPW 2023-01-01 00:00:00 2023-01-01 00:00:00 1 [facility] History SDOH Physical Activity MPS 2023-01-01 00:00:00 2023-01-01 00:00:00 3 [facility] History SDOH Stress 2023-01-01 00:00:00 2023-01-01 00:00:00 5 [facility] History SDOH Financial 2023-01-01 00:00:00 2023-01-01 00:00:00 4 [facility] History SDOH Food Worry 2023-01-01 00:00:00 2023-01-01 00:00:00 1 [facility] History SDOH Food Scarcity 2023-01-01 00:00:00 2023-01-01 00:00:00 2 [facility] History SDOH Transport Med 2023-01-01 00:00:00 2023-01-01 00:00:00 2 [facility] History SDOH Transport Non-Med 2023-01-01 00:00:00 2023-01-01 00:00:00 2 [facility] History SDOH Housing Unable to Pay 2023-01-01 00:00:00 2023-01-01 00:00:00 2 [facility] History SDOH Housing Places Lived 2023-01-01 00:00:00 2023-01-01 00:00:00 1 [facility] History SDOH Housing Homeless Last Year 2023-01-01 00:00:00 2023-01-01 00:00:00 2 [facility] Tobacco use and exposure 2022-12-27 00:00:00 2022-12-27 00:00:00 Smokeless tobacco non-user [facility] Alcohol Comment 2021-11-02 00:00:00 2021-11-02 00:00:00 social [facility] Sex assigned at 2001 00:00:00 2000 00:00:00 [facility] Smoking Status Start Date Stop Date Source Never smoked tobacco [facility] Medications Ordered Medication Name Filled Medication Name Start Date Stop Date Current Medication? Ordering Clinician Indication Dosage Frequency Signature (SIG) Comments Components Source hydrOXYzine 10 mg tablet 12-31 00:00: 00 01-24 04:59 :00 Yes [id number] 109 10mg Take 1 tablet by mouth every 6 (six) hours for 90 doses. [facility] proMETHazin e 25 mg tablet 11-13 00:00: 00 Yes [id number] 25mg Take 1 tablet by mouth every 6 (six) hours as needed for Nausea and Vomiting (N/V). [facility] PNV 67-iron ps-folate no.1-dha (VITAFOL ULTRA) 29 mg iron- 1 mg-200 mg Cap 11-13 00:00: 00 Yes [id number] 1{each} Take 1 Each by mouth in the morning. [facility] KCL (KLOR-CON M20) tablet 20 mEq 11-11 04:45: 00 11-11 04:46 :00 No 20meq 20 mEq, Oral, ONCE, 1 dose, On Sat11/11/23 at 2345, PABLO [facility] NaCl 0.9% (NS) IV infusion 1,000 mL 11-11 04:15: 00 Yes 1000mL at 999 mL/hr, Intravenou s, CONTINUOUS , Starting on Sat11/11/23 at 2315, Until Discontinu ed, Routine [facility] ondansetron (ZOFRAN (PF)) injection 4 mg 11-11 03:15: 00 11-11 03:20 :00 No 4mg 4 mg, Slow IV Push, ONCE, 1 dose, On Sat11/11/23 at 2215, PABLO [facility] doxylamine- pyridoxine, vit B6, (DICLEGIS) 10-10 mg per tablet 11-10 00:00: 00 Yes [id number] 2{tbl} Take 2 tablets by mouth at bedtime as needed for Nausea and Vomiting (N/V). [facility] ondansetron 4 mg tablet 1-09 00:00: 00 Yes [id number] 4mg Take 1 tablet by mouth every 8 (eight) hours as needed for Nausea and Vomiting (N/V). [facility] omeprazole 40 mg capsule 9-07 00:00: 00 Yes [id number] 40mg Take 1 capsule by mouth in the morning. [facility] ondansetron 8 mg tablet 8-24 00:00: 00 Yes [id number] 8mg Take 1 tablet by mouth every 8 (eight) hours as needed for Nausea and Vomiting (N/V). [facility] omeprazole 40 mg capsule 8-21 00:00: 00 04-18 00:00 :00 No [id number] 40mg Take 1 capsule by mouth in the morning. [facility] VENLAFAXINE XR 37.5 mg 24 hr capsule 8-02 00:00: 00 Yes [id number] 37.5mg TAKE 1 CAPSULE BY MOUTH DAILY WITH BREAKFAST. [facility] venlafaxine XR 37.5 mg 24 hr capsule 706 00:00: 00 03-13 00:00 :00 No [id number] 37.5mg Take 1 capsule by mouth daily with breakfast. [facility] SERTraline 25 mg tablet 5-25 00:00: 00 02-14 00:00 :00 No [id number] 25mg Take 1 tablet by mouth in the morning. [facility] naproxen (NAPROSYN) 500 mg tablet 5-25 00:00: 00 01-14 04:59 :00 No [id number] 500mg Take 1 tablet by mouth in the morning and 1 tablet in the evening. Take with meals. Do all this for 10 days. [facility] iopamidol (ISOVUE 370-500 mL) injection 100 mL 2023-0 5-19 03:00: 00 12-28 03:00 :00 No [id number] 100mL 100 mL, Intravenou s, ONCE, 1 dose, On [place] 12/27/22 at 2200, Routine [facility] norelgestro min-ethinyl estradiol (XULANE) 150-35 mcg/24 hr patch 0 5-11 00:00: 00 01-03 00:00 :00 No [id number] 1{patch } Apply 1 Patch to skin weekly. [facility] doxycycline hyclate 100 mg capsule 2-13 00:00: 00 10-02 05:59 :00 No [id number] 100mg Take 1 capsule by mouth every 12 (twelve) hours for 7 days. [facility] norelgestro min-ethinyl estradiol 150-35 mcg/24 hr patch 2-10 00:00: 00 04-01 00:00 :00 No [id number] 1{patch } Apply 1 Patch to skin weekly. [facility] norgestimat e-ethinyl estradioL 0.18/0.215/ 0.25 mg-25 mcg tablet 7-07 00:00: 00 09-21 00:00 :00 No [id number] 1{tbl} Take 1 tablet by mouth daily. [facility] norgestimat e-ethinyl estradioL 0.18/0.215/ 0.25 mg-25 mcg tablet 4-07 00:00: 00 02-15 00:00 :00 No [id number] 1{tbl} Take 1 tablet by mouth daily. [facility] albuterol 90 mcg/actuati on inhaler 3-07 00:00: 00 01-03 00:00 :00 No [id number] 6{puff} Inhale 6 Puffs every 4 (four) hours as needed for Wheezing or Shortness of Breath. [facility] benzonatate 100 mg capsule 3-07 00:00: 00 09-21 00:00 :00 No [id number] 100mg Take 1 capsule by mouth 3 (three) times daily as needed for Cough. [facility] Immunizations Ordered Immunization Name Filled Immunization Name Date Status Comments Source Influenza Virus Vaccine Quad .5 mL IM 6+ MO 2021-11-02 00:00:00 Completed [facility] Influenza Virus Vaccine Quad .5 mL IM 6+ MO 2021-11-02 00:00:00 Completed [facility] Influenza Virus Vaccine Quad .5 mL IM 6+ MO 2021-11-02 00:00:00 Completed [facility] Influenza Virus Vaccine Quad .5 mL IM 6+ MO 2021-11-02 00:00:00 Completed [facility] Influenza Virus Vaccine Quad .5 mL IM 6+ MO 2021-11-02 00:00:00 Completed [facility] Influenza Virus Vaccine Quad .5 mL IM 6+ MO 2021-11-02 00:00:00 Completed [facility] Influenza Virus Vaccine Quad .5 mL IM 6+ MO 2021-11-02 00:00:00 Completed [facility] Influenza Virus Vaccine Quad .5 mL IM 6+ MO 2021-11-02 00:00:00 Completed [facility] Influenza Virus Vaccine Quad .5 mL IM 6+ MO 2021-11-02 00:00:00 Completed [facility] Influenza Virus Vaccine Quad .5 mL IM 6+ MO 2021-11-02 00:00:00 Completed [facility] Influenza Virus Vaccine Quad .5 mL IM 6+ MO 2021-11-02 00:00:00 Completed [facility] Influenza Virus Vaccine Quad .5 mL IM 6+ MO 2021-11-02 00:00:00 Completed [facility] Influenza Virus Vaccine Quad .5 mL IM 6+ MO 2021-11-02 00:00:00 Completed [facility] Influenza Virus Vaccine Quad .5 mL IM 6+ MO 2021-11-02 00:00:00 Completed [facility] Influenza Virus Vaccine Quad .5 mL IM 6+ MO 2021-11-02 00:00:00 Completed [facility] Influenza Virus Vaccine Quad .5 mL IM 6+ MO 2021-11-02 00:00:00 Completed [facility] Influenza Virus Vaccine Quad .5 mL IM 6+ MO 2021-11-02 00:00:00 Completed [facility] Influenza Virus Vaccine Quad .5 mL IM 6+ MO 2021-11-02 00:00:00 Completed [facility] Influenza Virus Vaccine Quad .5 mL IM 6+ MO 2021-11-02 00:00:00 Completed [facility] Influenza Virus Vaccine Quad .5 mL IM 6+ MO 2021-11-02 00:00:00 Completed [facility] Influenza Virus Vaccine Quad .5 mL IM 6+ MO 2021-11-02 00:00:00 Completed [facility] Influenza Virus Vaccine Quad .5 mL IM 6+ MO 2021-11-02 00:00:00 Completed [facility] Influenza Virus Vaccine Quad .5 mL IM 6+ MO 2021-11-02 00:00:00 Completed [facility] Influenza Virus Vaccine Quad .5 mL IM 6+ MO 2021-11-02 00:00:00 Completed [facility] Influenza Virus Vaccine Quad .5 mL IM 6+ MO 2021-11-02 00:00:00 Completed [facility] Influenza Virus Vaccine Quad .5 mL IM 6+ MO 2021-11-02 00:00:00 Completed [facility] Influenza Virus Vaccine Quad .5 mL IM 6+ MO (FLUZONE/FLULAVAL/F LUARIX) 2021-11-02 00:00:00 Completed [facility] Influenza Virus Vaccine Quad .5 mL IM 6+ MO (FLUZONE/FLULAVAL/F LUARIX) 2021-11-02 00:00:00 Completed [facility] Influenza Virus Vaccine Quad .5 mL IM 6+ MO (FLUZONE/FLULAVAL/F LUARIX) 2021-11-02 00:00:00 Completed [facility] SARS-COV-2 COVID-19 PFIZER VACCINE 2021-03-27 00:00:00 Completed [facility] SARS-COV-2 COVID-19 PFIZER VACCINE 2021-03-27 00:00:00 Completed [facility] SARS-COV-2 COVID-19 PFIZER VACCINE 2021-03-27 00:00:00 Completed [facility] SARS-COV-2 COVID-19 PFIZER VACCINE 2021-03-27 00:00:00 Completed [facility] SARS-COV-2 COVID-19 PFIZER VACCINE 2021-03-27 00:00:00 Completed [facility] SARS-COV-2 COVID-19 PFIZER VACCINE 2021-03-27 00:00:00 Completed [facility] SARS-COV-2 COVID-19 PFIZER VACCINE 2021-03-27 00:00:00 Completed [facility] SARS-COV-2 COVID-19 PFIZER VACCINE 2021-03-27 00:00:00 Completed [facility] SARS-COV-2 COVID-19 PFIZER VACCINE 2021-03-27 00:00:00 Completed [facility] SARS-COV-2 COVID-19 PFIZER VACCINE 2021-03-27 00:00:00 Completed [facility] SARS-COV-2 COVID-19 PFIZER VACCINE 2021-03-27 00:00:00 Completed [facility] SARS-COV-2 COVID-19 PFIZER VACCINE 2021-03-27 00:00:00 Completed [facility] SARS-COV-2 COVID-19 PFIZER VACCINE 2021-03-27 00:00:00 Completed [facility] SARS-COV-2 COVID-19 PFIZER VACCINE 2021-03-27 00:00:00 Completed [facility] SARS-COV-2 COVID-19 PFIZER VACCINE 2021-03-27 00:00:00 Completed [facility] SARS-COV-2 COVID-19 PFIZER VACCINE 2021-03-27 00:00:00 Completed [facility] SARS-COV-2 COVID-19 PFIZER VACCINE 2021-03-27 00:00:00 Completed [facility] SARS-COV-2 COVID-19 PFIZER VACCINE 2021-03-27 00:00:00 Completed [facility] SARS-COV-2 COVID-19 PFIZER VACCINE 2021-03-27 00:00:00 Completed [facility] SARS-COV-2 COVID-19 PFIZER VACCINE 2021-03-27 00:00:00 Completed [facility] SARS-COV-2 COVID-19 PFIZER VACCINE 2021-03-27 00:00:00 Completed [facility] SARS-COV-2 COVID-19 PFIZER VACCINE 2021-03-27 00:00:00 Completed [facility] SARS-COV-2 COVID-19 PFIZER VACCINE 2021-03-27 00:00:00 Completed [facility] SARS-COV-2 COVID-19 PFIZER VACCINE 2021-03-27 00:00:00 Completed [facility] SARS-COV-2 COVID-19 PFIZER VACCINE 2021-03-27 00:00:00 Completed [facility] SARS-COV-2 COVID-19 PFIZER VACCINE 2021-03-27 00:00:00 Completed [facility] SARS-COV-2 COVID-19 PFIZER VACCINE 2021-03-27 00:00:00 Completed [facility] SARS-COV-2 COVID-19 PFIZER VACCINE 2021-03-27 00:00:00 Completed [facility] SARS-COV-2 COVID-19 PFIZER VACCINE 2021-03-27 00:00:00 Completed [facility] SARS-COV-2 COVID-19 PFIZER VACCINE 2021-03-06 00:00:00 Completed [facility] SARS-COV-2 COVID-19 PFIZER VACCINE 2021-03-06 00:00:00 Completed [facility] SARS-COV-2 COVID-19 PFIZER VACCINE 2021-03-06 00:00:00 Completed [facility] SARS-COV-2 COVID-19 PFIZER VACCINE 2021-03-06 00:00:00 Completed [facility] SARS-COV-2 COVID-19 PFIZER VACCINE 2021-03-06 00:00:00 Completed [facility] SARS-COV-2 COVID-19 PFIZER VACCINE 2021-03-06 00:00:00 Completed [facility] SARS-COV-2 COVID-19 PFIZER VACCINE 2021-03-06 00:00:00 Completed [facility] SARS-COV-2 COVID-19 PFIZER VACCINE 2021-03-06 00:00:00 Completed [facility] SARS-COV-2 COVID-19 PFIZER VACCINE 2021-03-06 00:00:00 Completed [facility] SARS-COV-2 COVID-19 PFIZER VACCINE 2021-03-06 00:00:00 Completed [facility] SARS-COV-2 COVID-19 PFIZER VACCINE 2021-03-06 00:00:00 Completed [facility] SARS-COV-2 COVID-19 PFIZER VACCINE 2021-03-06 00:00:00 Completed [facility] SARS-COV-2 COVID-19 PFIZER VACCINE 2021-03-06 00:00:00 Completed [facility] SARS-COV-2 COVID-19 PFIZER VACCINE 2021-03-06 00:00:00 Completed [facility] SARS-COV-2 COVID-19 PFIZER VACCINE 2021-03-06 00:00:00 Completed [facility] SARS-COV-2 COVID-19 PFIZER VACCINE 2021-03-06 00:00:00 Completed [facility] SARS-COV-2 COVID-19 PFIZER VACCINE 2021-03-06 00:00:00 Completed [facility] SARS-COV-2 COVID-19 PFIZER VACCINE 2021-03-06 00:00:00 Completed [facility] SARS-COV-2 COVID-19 PFIZER VACCINE 2021-03-06 00:00:00 Completed [facility] SARS-COV-2 COVID-19 PFIZER VACCINE 2021-03-06 00:00:00 Completed [facility] SARS-COV-2 COVID-19 PFIZER VACCINE 2021-03-06 00:00:00 Completed [facility] SARS-COV-2 COVID-19 PFIZER VACCINE 2021-03-06 00:00:00 Completed [facility] SARS-COV-2 COVID-19 PFIZER VACCINE 2021-03-06 00:00:00 Completed [facility] SARS-COV-2 COVID-19 PFIZER VACCINE 2021-03-06 00:00:00 Completed [facility] SARS-COV-2 COVID-19 PFIZER VACCINE 2021-03-06 00:00:00 Completed [facility] SARS-COV-2 COVID-19 PFIZER VACCINE 2021-03-06 00:00:00 Completed [facility] SARS-COV-2 COVID-19 PFIZER VACCINE 2021-03-06 00:00:00 Completed [facility] SARS-COV-2 COVID-19 PFIZER VACCINE 2021-03-06 00:00:00 Completed [facility] SARS-COV-2 COVID-19 PFIZER VACCINE 2021-03-06 00:00:00 Completed [facility] HPV9 2019-08-25 00:00:00 Completed [facility] HPV9 2019-08-25 00:00:00 Completed [facility] HPV9 2019-08-25 00:00:00 Completed [facility] HPV9 2019-08-25 00:00:00 Completed [facility] HPV9 2019-08-25 00:00:00 Completed [facility] HPV9 2019-08-25 00:00:00 Completed [facility] HPV9 2019-08-25 00:00:00 Completed [facility] HPV9 2019-08-25 00:00:00 Completed [facility] HPV9 2019-08-25 00:00:00 Completed [facility] HPV9 2019-08-25 00:00:00 Completed [facility] HPV9 2019-08-25 00:00:00 Completed [facility] HPV9 2019-08-25 00:00:00 Completed [facility] HPV9 2019-08-25 00:00:00 Completed [facility] HPV9 2019-08-25 00:00:00 Completed [facility] HPV9 2019-08-25 00:00:00 Completed [facility] HPV9 2019-08-25 00:00:00 Completed [facility] HPV9 2019-08-25 00:00:00 Completed [facility] HPV9 2019-08-25 00:00:00 Completed [facility] HPV9 2019-08-25 00:00:00 Completed [facility] HPV9 2019-08-25 00:00:00 Completed [facility] HPV9 2019-08-25 00:00:00 Completed [facility] HPV9 2019-08-25 00:00:00 Completed [facility] HPV9 2019-08-25 00:00:00 Completed [facility] HPV9 2019-08-25 00:00:00 Completed [facility] HPV9 2019-08-25 00:00:00 Completed [facility] HPV9 2019-08-25 00:00:00 Completed [facility] HPV9 2019-08-25 00:00:00 Completed [facility] HPV9 2019-08-25 00:00:00 Completed [facility] HPV9 2019-08-25 00:00:00 Completed [facility] HPV9 2019-05-27 00:00:00 Completed [facility] HPV9 2019-05-27 00:00:00 Completed [facility] HPV9 2019-05-27 00:00:00 Completed [facility] HPV9 2019-05-27 00:00:00 Completed [facility] HPV9 2019-05-27 00:00:00 Completed [facility] HPV9 2019-05-27 00:00:00 Completed [facility] HPV9 2019-05-27 00:00:00 Completed [facility] HPV9 2019-05-27 00:00:00 Completed [facility] HPV9 2019-05-27 00:00:00 Completed [facility] HPV9 2019-05-27 00:00:00 Completed [facility] HPV9 2019-05-27 00:00:00 Completed [facility] HPV9 2019-05-27 00:00:00 Completed [facility] HPV9 2019-05-27 00:00:00 Completed [facility] HPV9 2019-05-27 00:00:00 Completed [facility] HPV9 2019-05-27 00:00:00 Completed [facility] HPV9 2019-05-27 00:00:00 Completed [facility] HPV9 2019-05-27 00:00:00 Completed [facility] HPV9 2019-05-27 00:00:00 Completed [facility] HPV9 2019-05-27 00:00:00 Completed [facility] HPV9 2019-05-27 00:00:00 Completed [facility] HPV9 2019-05-27 00:00:00 Completed [facility] HPV9 2019-05-27 00:00:00 Completed [facility] HPV9 2019-05-27 00:00:00 Completed [facility] HPV9 2019-05-27 00:00:00 Completed [facility] HPV9 2019-05-27 00:00:00 Completed [facility] HPV9 2019-05-27 00:00:00 Completed [facility] HPV9 2019-05-27 00:00:00 Completed [facility] HPV9 2019-05-27 00:00:00 Completed [facility] HPV9 2019-05-27 00:00:00 Completed [facility] Meningococcal Vaccine 2014-06-24 00:00:00 Completed [facility] TDAP (ADACEL) VACCINE 2014-06-24 00:00:00 Completed [facility] Meningococcal Vaccine 2014-06-24 00:00:00 Completed [facility] TDAP (ADACEL) VACCINE 2014-06-24 00:00:00 Completed [facility] Meningococcal Vaccine 2014-06-24 00:00:00 Completed [facility] TDAP (ADACEL) VACCINE 2014-06-24 00:00:00 Completed [facility] Meningococcal Vaccine 2014-06-24 00:00:00 Completed [facility] TDAP (ADACEL) VACCINE 2014-06-24 00:00:00 Completed [facility] Meningococcal Vaccine 2014-06-24 00:00:00 Completed [facility] TDAP (ADACEL) VACCINE 2014-06-24 00:00:00 Completed [facility] Meningococcal Vaccine 2014-06-24 00:00:00 Completed [facility] TDAP (ADACEL) VACCINE 2014-06-24 00:00:00 Completed [facility] Meningococcal Vaccine 2014-06-24 00:00:00 Completed [facility] TDAP (ADACEL) VACCINE 2014-06-24 00:00:00 Completed [facility] Meningococcal Vaccine 2014-06-24 00:00:00 Completed [facility] TDAP (ADACEL) VACCINE 2014-06-24 00:00:00 Completed [facility] Meningococcal Vaccine 2014-06-24 00:00:00 Completed [facility] TDAP (ADACEL) VACCINE 2014-06-24 00:00:00 Completed [facility] Meningococcal Vaccine 2014-06-24 00:00:00 Completed [facility] TDAP (ADACEL) VACCINE 2014-06-24 00:00:00 Completed [facility] Meningococcal Vaccine 2014-06-24 00:00:00 Completed [facility] TDAP (ADACEL) VACCINE 2014-06-24 00:00:00 Completed [facility] Meningococcal Vaccine 2014-06-24 00:00:00 Completed [facility] TDAP (ADACEL) VACCINE 2014-06-24 00:00:00 Completed [facility] Meningococcal Vaccine 2014-06-24 00:00:00 Completed [facility] TDAP (ADACEL) VACCINE 2014-06-24 00:00:00 Completed [facility] Meningococcal Vaccine 2014-06-24 00:00:00 Completed [facility] TDAP (ADACEL) VACCINE 2014-06-24 00:00:00 Completed [facility] Meningococcal Vaccine 2014-06-24 00:00:00 Completed [facility] TDAP (ADACEL) VACCINE 2014-06-24 00:00:00 Completed [facility] Meningococcal Vaccine 2014-06-24 00:00:00 Completed [facility] TDAP (ADACEL) VACCINE 2014-06-24 00:00:00 Completed [facility] Meningococcal Vaccine 2014-06-24 00:00:00 Completed [facility] TDAP (ADACEL) VACCINE 2014-06-24 00:00:00 Completed [facility] Meningococcal Vaccine 2014-06-24 00:00:00 Completed [facility] TDAP (ADACEL) VACCINE 2014-06-24 00:00:00 Completed [facility] Meningococcal Vaccine 2014-06-24 00:00:00 Completed [facility] TDAP (ADACEL) VACCINE 2014-06-24 00:00:00 Completed [facility] Meningococcal Vaccine 2014-06-24 00:00:00 Completed [facility] TDAP (ADACEL) VACCINE 2014-06-24 00:00:00 Completed [facility] Meningococcal Vaccine 2014-06-24 00:00:00 Completed [facility] TDAP (ADACEL) VACCINE 2014-06-24 00:00:00 Completed [facility] Meningococcal Vaccine 2014-06-24 00:00:00 Completed [facility] TDAP (ADACEL) VACCINE 2014-06-24 00:00:00 Completed [facility] Meningococcal Vaccine 2014-06-24 00:00:00 Completed [facility] TDAP (ADACEL) VACCINE 2014-06-24 00:00:00 Completed [facility] Meningococcal Vaccine 2014-06-24 00:00:00 Completed [facility] TDAP (ADACEL) VACCINE 2014-06-24 00:00:00 Completed [facility] Meningococcal Vaccine 2014-06-24 00:00:00 Completed [facility] TDAP (ADACEL) VACCINE 2014-06-24 00:00:00 Completed [facility] Meningococcal Vaccine 2014-06-24 00:00:00 Completed [facility] TDAP (ADACEL) VACCINE 2014-06-24 00:00:00 Completed [facility] Meningococcal Vaccine 2014-06-24 00:00:00 Completed [facility] TDAP (ADACEL) VACCINE 2014-06-24 00:00:00 Completed [facility] Meningococcal Vaccine 2014-06-24 00:00:00 Completed [facility] TDAP (ADACEL) VACCINE 2014-06-24 00:00:00 Completed [facility] Meningococcal Vaccine 2014-06-24 00:00:00 Completed [facility] TDAP (ADACEL) VACCINE 2014-06-24 00:00:00 Completed [facility] TDAP (ADACEL) VACCINE 2013-03-12 00:00:00 Completed [facility] TDAP (ADACEL) VACCINE 2013-03-12 00:00:00 Completed [facility] TDAP (ADACEL) VACCINE 2013-03-12 00:00:00 Completed [facility] TDAP (ADACEL) VACCINE 2013-03-12 00:00:00 Completed [facility] TDAP (ADACEL) VACCINE 2013-03-12 00:00:00 Completed [facility] TDAP (ADACEL) VACCINE 2013-03-12 00:00:00 Completed [facility] TDAP (ADACEL) VACCINE 2013-03-12 00:00:00 Completed [facility] TDAP (ADACEL) VACCINE 2013-03-12 00:00:00 Completed [facility] TDAP (ADACEL) VACCINE 2013-03-12 00:00:00 Completed [facility] TDAP (ADACEL) VACCINE 2013-03-12 00:00:00 Completed [facility] TDAP (ADACEL) VACCINE 2013-03-12 00:00:00 Completed [facility] TDAP (ADACEL) VACCINE 2013-03-12 00:00:00 Completed [facility] TDAP (ADACEL) VACCINE 2013-03-12 00:00:00 Completed [facility] TDAP (ADACEL) VACCINE 2013-03-12 00:00:00 Completed [facility] TDAP (ADACEL) VACCINE 2013-03-12 00:00:00 Completed [facility] TDAP (ADACEL) VACCINE 2013-03-12 00:00:00 Completed [facility] TDAP (ADACEL) VACCINE 2013-03-12 00:00:00 Completed [facility] TDAP (ADACEL) VACCINE 2013-03-12 00:00:00 Completed [facility] TDAP (ADACEL) VACCINE 2013-03-12 00:00:00 Completed [facility] TDAP (ADACEL) VACCINE 2013-03-12 00:00:00 Completed [facility] TDAP (ADACEL) VACCINE 2013-03-12 00:00:00 Completed [facility] TDAP (ADACEL) VACCINE 2013-03-12 00:00:00 Completed [facility] TDAP (ADACEL) VACCINE 2013-03-12 00:00:00 Completed [facility] TDAP (ADACEL) VACCINE 2013-03-12 00:00:00 Completed [facility] TDAP (ADACEL) VACCINE 2013-03-12 00:00:00 Completed [facility] TDAP (ADACEL) VACCINE 2013-03-12 00:00:00 Completed [facility] TDAP (ADACEL) VACCINE 2013-03-12 00:00:00 Completed [facility] TDAP (ADACEL) VACCINE 2013-03-12 00:00:00 Completed [facility] TDAP (ADACEL) VACCINE 2013-03-12 00:00:00 Completed [facility] TDAP (ADACEL) VACCINE Unknown Completed [facility] HPV9 Unknown Completed [facility] TDAP (ADACEL) VACCINE Unknown Completed [facility] Meningococcal Vaccine Unknown Completed [facility] HPV9 Unknown Completed [facility] TDAP (ADACEL) VACCINE Unknown Completed [facility] HPV9 Unknown Completed [facility] TDAP (ADACEL) VACCINE Unknown Completed [facility] Meningococcal Vaccine Unknown Completed [facility] HPV9 Unknown Completed [facility] SARS-COV-2 COVID-19 PFIZER VACCINE Unknown Completed [facility] SARS-COV-2 COVID-19 PFIZER VACCINE Unknown Completed [facility] Influenza Virus Vaccine Quad .5 mL IM 6+ MO (FLUZONE/FLULAVAL/F LUARIX) Unknown Completed [facility] TDAP (ADACEL) VACCINE Unknown Completed [facility] HPV9 Unknown Completed [facility] TDAP (ADACEL) VACCINE Unknown Completed [facility] Meningococcal Vaccine Unknown Completed [facility] HPV9 Unknown Completed [facility] SARS-COV-2 COVID-19 PFIZER VACCINE Unknown Completed [facility] SARS-COV-2 COVID-19 PFIZER VACCINE Unknown Completed [facility] Influenza Virus Vaccine Quad .5 mL IM 6+ MO (FLUZONE/FLULAVAL/F LUARIX) Unknown Completed [facility] TDAP (ADACEL) VACCINE Unknown Completed [facility] HPV9 Unknown Completed [facility] TDAP (ADACEL) VACCINE Unknown Completed [facility] Meningococcal Vaccine Unknown Completed [facility] HPV9 Unknown Completed [facility] SARS-COV-2 COVID-19 PFIZER VACCINE Unknown Completed [facility] SARS-COV-2 COVID-19 PFIZER VACCINE Unknown Completed [facility] Influenza Virus Vaccine Quad .5 mL IM 6+ MO (FLUZONE/FLULAVAL/F LUARIX) Unknown Completed [facility] TDAP (ADACEL) VACCINE Unknown Completed [facility] HPV9 Unknown Completed [facility] TDAP (ADACEL) VACCINE Unknown Completed [facility] Meningococcal Vaccine Unknown Completed [facility] HPV9 Unknown Completed [facility] SARS-COV-2 COVID-19 PFIZER VACCINE Unknown Completed [facility] SARS-COV-2 COVID-19 PFIZER VACCINE Unknown Completed [facility] Influenza Virus Vaccine Quad .5 mL IM 6+ MO (FLUZONE/FLULAVAL/F LUARIX) Unknown Completed [facility] TDAP (ADACEL) VACCINE Unknown Completed [facility] HPV9 Unknown Completed [facility] TDAP (ADACEL) VACCINE Unknown Completed [facility] Meningococcal Vaccine Unknown Completed [facility] HPV9 Unknown Completed [facility] SARS-COV-2 COVID-19 PFIZER VACCINE Unknown Completed [facility] SARS-COV-2 COVID-19 PFIZER VACCINE Unknown Completed [facility] Influenza Virus Vaccine Quad .5 mL IM 6+ MO (FLUZONE/FLULAVAL/F LUARIX) Unknown Completed [facility] TDAP (ADACEL) VACCINE Unknown Completed [facility] HPV9 Unknown Completed [facility] TDAP (ADACEL) VACCINE Unknown Completed [facility] Meningococcal Vaccine Unknown Completed [facility] HPV9 Unknown Completed [facility] SARS-COV-2 COVID-19 PFIZER VACCINE Unknown Completed [facility] SARS-COV-2 COVID-19 PFIZER VACCINE Unknown Completed [facility] Influenza Virus Vaccine Quad .5 mL IM 6+ MO (FLUZONE/FLULAVAL/F LUARIX) Unknown Completed [facility] TDAP (ADACEL) VACCINE Unknown Completed [facility] HPV9 Unknown Completed [facility] TDAP (ADACEL) VACCINE Unknown Completed [facility] Meningococcal Vaccine Unknown Completed [facility] HPV9 Unknown Completed [facility] SARS-COV-2 COVID-19 PFIZER VACCINE Unknown Completed [facility] SARS-COV-2 COVID-19 PFIZER VACCINE Unknown Completed [facility] Influenza Virus Vaccine Quad .5 mL IM 6+ MO (FLUZONE/FLULAVAL/F LUARIX) Unknown Completed [facility] TDAP (ADACEL) VACCINE Unknown Completed [facility] HPV9 Unknown Completed [facility] TDAP (ADACEL) VACCINE Unknown Completed [facility] Meningococcal Vaccine Unknown Completed [facility] HPV9 Unknown Completed [facility] SARS-COV-2 COVID-19 PFIZER VACCINE Unknown Completed [facility] SARS-COV-2 COVID-19 PFIZER VACCINE Unknown Completed [facility] Influenza Virus Vaccine Quad .5 mL IM 6+ MO (FLUZONE/FLULAVAL/F LUARIX) Unknown Completed [facility] TDAP (ADACEL) VACCINE Unknown Completed [facility] HPV9 Unknown Completed [facility] TDAP (ADACEL) VACCINE Unknown Completed [facility] Meningococcal Vaccine Unknown Completed [facility] HPV9 Unknown Completed [facility] SARS-COV-2 COVID-19 PFIZER VACCINE Unknown Completed [facility] SARS-COV-2 COVID-19 PFIZER VACCINE Unknown Completed [facility] Influenza Virus Vaccine Quad .5 mL IM 6+ MO (FLUZONE/FLULAVAL/F LUARIX) Unknown Completed [facility] TDAP (ADACEL) VACCINE Unknown Completed [facility] HPV9 Unknown Completed [facility] TDAP (ADACEL) VACCINE Unknown Completed [facility] Meningococcal Vaccine Unknown Completed [facility] HPV9 Unknown Completed [facility] SARS-COV-2 COVID-19 PFIZER VACCINE Unknown Completed [facility] SARS-COV-2 COVID-19 PFIZER VACCINE Unknown Completed [facility] Influenza Virus Vaccine Quad .5 mL IM 6+ MO (FLUZONE/FLULAVAL/F LUARIX) Unknown Completed [facility] TDAP (ADACEL) VACCINE Unknown Completed [facility] HPV9 Unknown Completed [facility] TDAP (ADACEL) VACCINE Unknown Completed [facility] Meningococcal Vaccine Unknown Completed [facility] HPV9 Unknown Completed [facility] SARS-COV-2 COVID-19 PFIZER VACCINE Unknown Completed [facility] SARS-COV-2 COVID-19 PFIZER VACCINE Unknown Completed [facility] Influenza Virus Vaccine Quad .5 mL IM 6+ MO (FLUZONE/FLULAVAL/F LUARIX) Unknown Completed [facility] TDAP (ADACEL) VACCINE Unknown Completed [facility] HPV9 Unknown Completed [facility] TDAP (ADACEL) VACCINE Unknown Completed [facility] Meningococcal Vaccine Unknown Completed [facility] HPV9 Unknown Completed [facility] SARS-COV-2 COVID-19 PFIZER VACCINE Unknown Completed [facility] SARS-COV-2 COVID-19 PFIZER VACCINE Unknown Completed [facility] Influenza Virus Vaccine Quad .5 mL IM 6+ MO (FLUZONE/FLULAVAL/F LUARIX) Unknown Completed [facility] TDAP (ADACEL) VACCINE Unknown Completed [facility] HPV9 Unknown Completed [facility] TDAP (ADACEL) VACCINE Unknown Completed [facility] Meningococcal Vaccine Unknown Completed [facility] HPV9 Unknown Completed [facility] SARS-COV-2 COVID-19 PFIZER VACCINE Unknown Completed [facility] SARS-COV-2 COVID-19 PFIZER VACCINE Unknown Completed [facility] Influenza Virus Vaccine Quad .5 mL IM 6+ MO (FLUZONE/FLULAVAL/F LUARIX) Unknown Completed [facility] TDAP (ADACEL) VACCINE Unknown Completed [facility] HPV9 Unknown Completed [facility] TDAP (ADACEL) VACCINE Unknown Completed [facility] Meningococcal Vaccine Unknown Completed [facility] HPV9 Unknown Completed [facility] SARS-COV-2 COVID-19 PFIZER VACCINE Unknown Completed [facility] SARS-COV-2 COVID-19 PFIZER VACCINE Unknown Completed [facility] Influenza Virus Vaccine Quad .5 mL IM 6+ MO (FLUZONE/FLULAVAL/F LUARIX) Unknown Completed [facility] TDAP (ADACEL) VACCINE Unknown Completed [facility] HPV9 Unknown Completed [facility] TDAP (ADACEL) VACCINE Unknown Completed [facility] Meningococcal Vaccine Unknown Completed [facility] HPV9 Unknown Completed [facility] SARS-COV-2 COVID-19 PFIZER VACCINE Unknown Completed [facility] SARS-COV-2 COVID-19 PFIZER VACCINE Unknown Completed [facility] Influenza Virus Vaccine Quad .5 mL IM 6+ MO (FLUZONE/FLULAVAL/F LUARIX) Unknown Completed [facility] TDAP (ADACEL) VACCINE Unknown Completed [facility] HPV9 Unknown Completed [facility] TDAP (ADACEL) VACCINE Unknown Completed [facility] Meningococcal Vaccine Unknown Completed [facility] HPV9 Unknown Completed [facility] SARS-COV-2 COVID-19 PFIZER VACCINE Unknown Completed [facility] SARS-COV-2 COVID-19 PFIZER VACCINE Unknown Completed [facility] Influenza Virus Vaccine Quad .5 mL IM 6+ MO (FLUZONE/FLULAVAL/F LUARIX) Unknown Completed [facility] TDAP (ADACEL) VACCINE Unknown Completed [facility] HPV9 Unknown Completed [facility] TDAP (ADACEL) VACCINE Unknown Completed [facility] Meningococcal Vaccine Unknown Completed [facility] HPV9 Unknown Completed [facility] SARS-COV-2 COVID-19 PFIZER VACCINE Unknown Completed [facility] SARS-COV-2 COVID-19 PFIZER VACCINE Unknown Completed [facility] Influenza Virus Vaccine Quad .5 mL IM 6+ MO (FLUZONE/FLULAVAL/F LUARIX) Unknown Completed [facility] TDAP (ADACEL) VACCINE Unknown Completed [facility] HPV9 Unknown Completed [facility] TDAP (ADACEL) VACCINE Unknown Completed [facility] Meningococcal Vaccine Unknown Completed [facility] HPV9 Unknown Completed [facility] SARS-COV-2 COVID-19 PFIZER VACCINE Unknown Completed [facility] SARS-COV-2 COVID-19 PFIZER VACCINE Unknown Completed [facility] Influenza Virus Vaccine Quad .5 mL IM 6+ MO (FLUZONE/FLULAVAL/F LUARIX) Unknown Completed [facility] TDAP (ADACEL) VACCINE Unknown Completed [facility] HPV9 Unknown Completed [facility] TDAP (ADACEL) VACCINE Unknown Completed [facility] Meningococcal Vaccine Unknown Completed [facility] HPV9 Unknown Completed [facility] SARS-COV-2 COVID-19 PFIZER VACCINE Unknown Completed [facility] SARS-COV-2 COVID-19 PFIZER VACCINE Unknown Completed [facility] Influenza Virus Vaccine Quad .5 mL IM 6+ MO (FLUZONE/FLULAVAL/F LUARIX) Unknown Completed [facility] TDAP (ADACEL) VACCINE Unknown Completed [facility] HPV9 Unknown Completed [facility] TDAP (ADACEL) VACCINE Unknown Completed [facility] Meningococcal Vaccine Unknown Completed [facility] HPV9 Unknown Completed [facility] SARS-COV-2 COVID-19 PFIZER VACCINE Unknown Completed [facility] SARS-COV-2 COVID-19 PFIZER VACCINE Unknown Completed [facility] Influenza Virus Vaccine Quad .5 mL IM 6+ MO (FLUZONE/FLULAVAL/F LUARIX) Unknown Completed [facility] TDAP (ADACEL) VACCINE Unknown Completed [facility] HPV9 Unknown Completed [facility] TDAP (ADACEL) VACCINE Unknown Completed [facility] Meningococcal Vaccine Unknown Completed [facility] HPV9 Unknown Completed [facility] SARS-COV-2 COVID-19 PFIZER VACCINE Unknown Completed [facility] SARS-COV-2 COVID-19 PFIZER VACCINE Unknown Completed [facility] Influenza Virus Vaccine Quad .5 mL IM 6+ MO (FLUZONE/FLULAVAL/F LUARIX) Unknown Completed [facility] TDAP (ADACEL) VACCINE Unknown Completed [facility] HPV9 Unknown Completed [facility] TDAP (ADACEL) VACCINE Unknown Completed [facility] Meningococcal Vaccine Unknown Completed [facility] HPV9 Unknown Completed [facility] SARS-COV-2 COVID-19 PFIZER VACCINE Unknown Completed [facility] SARS-COV-2 COVID-19 PFIZER VACCINE Unknown Completed [facility] Influenza Virus Vaccine Quad .5 mL IM 6+ MO (FLUZONE/FLULAVAL/F LUARIX) Unknown Completed [facility] TDAP (ADACEL) VACCINE Unknown Completed [facility] HPV9 Unknown Completed [facility] TDAP (ADACEL) VACCINE Unknown Completed [facility] Meningococcal Vaccine Unknown Completed [facility] HPV9 Unknown Completed [facility] SARS-COV-2 COVID-19 PFIZER VACCINE Unknown Completed [facility] SARS-COV-2 COVID-19 PFIZER VACCINE Unknown Completed [facility] Influenza Virus Vaccine Quad .5 mL IM 6+ MO (FLUZONE/FLULAVAL/F LUARIX) Unknown Completed [facility] TDAP (ADACEL) VACCINE Unknown Completed [facility] HPV9 Unknown Completed [facility] TDAP (ADACEL) VACCINE Unknown Completed [facility] Meningococcal Vaccine Unknown Completed [facility] HPV9 Unknown Completed [facility] SARS-COV-2 COVID-19 PFIZER VACCINE Unknown Completed [facility] SARS-COV-2 COVID-19 PFIZER VACCINE Unknown Completed [facility] Influenza Virus Vaccine Quad .5 mL IM 6+ MO (FLUZONE/FLULAVAL/F LUARIX) Unknown Completed [facility] TDAP (ADACEL) VACCINE Unknown Completed [facility] HPV9 Unknown Completed [facility] TDAP (ADACEL) VACCINE Unknown Completed [facility] Meningococcal Vaccine Unknown Completed [facility] HPV9 Unknown Completed [facility] SARS-COV-2 COVID-19 PFIZER VACCINE Unknown Completed [facility] SARS-COV-2 COVID-19 PFIZER VACCINE Unknown Completed [facility] Influenza Virus Vaccine Quad .5 mL IM 6+ MO (FLUZONE/FLULAVAL/F LUARIX) Unknown Completed [facility] TDAP (ADACEL) VACCINE Unknown Completed [facility] HPV9 Unknown Completed [facility] TDAP (ADACEL) VACCINE Unknown Completed [facility] Meningococcal Vaccine Unknown Completed [facility] HPV9 Unknown Completed [facility] SARS-COV-2 COVID-19 PFIZER VACCINE Unknown Completed [facility] SARS-COV-2 COVID-19 PFIZER VACCINE Unknown Completed [facility] Influenza Virus Vaccine Quad .5 mL IM 6+ MO (FLUZONE/FLULAVAL/F LUARIX) Unknown Completed [facility] TDAP (ADACEL) VACCINE Unknown Completed [facility] HPV9 Unknown Completed [facility] TDAP (ADACEL) VACCINE Unknown Completed [facility] Meningococcal Vaccine Unknown Completed [facility] HPV9 Unknown Completed [facility] SARS-COV-2 COVID-19 PFIZER VACCINE Unknown Completed [facility] SARS-COV-2 COVID-19 PFIZER VACCINE Unknown Completed [facility] Influenza Virus Vaccine Quad .5 mL IM 6+ MO (FLUZONE/FLULAVAL/F LUARIX) Unknown Completed [facility] Vital Signs Vital Name Observation Time Observation Value Comments S ource Systolic blood pressure 2024-01-01 15:28:00 132 mm[Hg] [facility] Diastolic blood pressure 2024-01-01 15:28:00 69 mm[Hg] [facility] Heart rate 2024-01-01 15:28:00 78 /min [facility] Body temperature 2024-01-01 15:28:00 36.61 [place] [facility] Respiratory rate 2024-01-01 15:28:00 18 /min [facility] Body height 2024-01-01 15:28:00 162.6 cm [facility] Body weight 2024-01-01 15:28:00 63.22 kg [facility] BMI 2024-01-01 15:28:00 23.92 kg/m2 [facility] Systolic blood pressure 2023-12-30 13:56:00 127 mm[Hg] [facility] Diastolic blood pressure 2023-12-30 13:56:00 80 mm[Hg] [facility] Heart rate 2023-12-30 13:56:00 76 /min [facility] Body temperature 2023-12-30 13:56:00 36.11 [place] [facility] Respiratory rate 2023-12-30 13:56:00 18 /min [facility] Body height 2023-12-30 13:56:00 162.6 cm [facility] Body weight 2023-12-30 13:56:00 63.957 kg [facility] BMI 2023-12-30 13:56:00 24.20 kg/m2 [facility] Systolic blood pressure 2023-12-10 18:34:00 118 mm[Hg] [facility] Diastolic blood pressure 2023-12-10 18:34:00 68 mm[Hg] [facility] Heart rate 2023-12-10 18:34:00 74 /min [facility] Body temperature 2023-12-10 18:34:00 36.44 [place] [facility] Respiratory rate 2023-12-10 18:34:00 18 /min [facility] Body height 2023-12-10 18:34:00 162.6 cm [facility] Body weight 2023-12-10 18:34:00 61.19 kg [facility] BMI 2023-12-10 18:34:00 23.16 kg/m2 [facility] Systolic blood pressure 2023-11-14 14:36:00 127 mm[Hg] [facility] Diastolic blood pressure 2023-11-14 14:36:00 82 mm[Hg] [facility] Heart rate 2023-11-14 14:36:00 91 /min [facility] Body temperature 2023-11-14 14:36:00 36.89 [place] [facility] Respiratory rate 2023-11-14 14:36:00 18 /min [facility] Body height 2023-11-14 14:36:00 162.6 cm [facility] Body weight 2023-11-14 14:36:00 60.782 kg [facility] BMI 2023-11-14 14:36:00 23.00 kg/m2 [facility] Systolic blood pressure 2023-11-12 04:00:00 127 mm[Hg] [facility] Diastolic blood pressure 2023-11-12 04:00:00 55 mm[Hg] [facility] Heart rate 2023-11-12 04:00:00 69 /min [facility] Body temperature 2023-11-12 04:00:00 37.22 [place] [facility] Respiratory rate 2023-11-12 04:00:00 16 /min [facility] Oxygen saturation in Arterial blood by Pulse oximetry 2023-11-12 04:00:00 100 /min [facility] Body height 2023-11-12 02:44:00 162.6 cm [facility] Body weight 2023-11-12 02:44:00 58.968 kg [facility] BMI 2023-11-12 02:44:00 22.31 kg/m2 [facility] Systolic blood pressure 2023-10-24 16:38:00 140 mm[Hg] [facility] Diastolic blood pressure 2023-10-24 16:38:00 88 mm[Hg] [facility] Heart rate 2023-10-24 16:38:00 78 /min [facility] Body temperature 2023-10-24 16:38:00 37.33 [place] [facility] Respiratory rate 2023-10-24 16:38:00 22 /min [facility] Body height 2023-10-24 16:38:00 162.6 cm [facility] Body weight 2023-10-24 16:38:00 58.968 kg [facility] BMI 2023-10-24 16:38:00 22.31 kg/m2 [facility] Oxygen saturation in Arterial blood by Pulse oximetry 2023-10-24 16:38:00 100 /min [facility] Systolic blood pressure 2023-08-20 20:26:00 136 mm[Hg] [facility] Diastolic blood pressure 2023-08-20 20:26:00 81 mm[Hg] [facility] Heart rate 2023-08-20 20:26:00 68 /min [facility] Body temperature 2023-08-20 20:26:00 36.17 [place] [facility] Respiratory rate 2023-08-20 20:26:00 18 /min [facility] Body height 2023-08-20 20:26:00 165.1 cm [facility] Body weight 2023-08-20 20:26:00 62.642 kg [facility] BMI 2023-08-20 20:26:00 22.98 kg/m2 [facility] Systolic blood pressure 2023-04-24 15:10:00 148 mm[Hg] [facility] Diastolic blood pressure 2023-04-24 15:10:00 99 mm[Hg] [facility] Heart rate 2023-04-24 15:10:00 87 /min [facility] Body temperature 2023-04-24 15:10:00 37.11 [place] [facility] Respiratory rate 2023-04-24 15:10:00 18 /min [facility] Body height 2023-04-24 15:10:00 165.1 cm [facility] Body weight 2023-04-24 15:10:00 62.596 kg [facility] BMI 2023-04-24 15:10:00 22.96 kg/m2 [facility] Oxygen saturation in Arterial blood by Pulse oximetry 2023-04-24 15:10:00 100 /min [facility] Systolic blood pressure 2023-04-18 15:54:00 141 mm[Hg] [facility] Diastolic blood pressure 2023-04-18 15:54:00 73 mm[Hg] [facility] Heart rate 2023-04-18 15:54:00 58 /min [facility] Body temperature 2023-04-18 15:54:00 36.28 [place] [facility] Respiratory rate 2023-04-18 15:54:00 18 /min [facility] Body height 2023-04-18 15:54:00 162.6 cm [facility] Body weight 2023-04-18 15:54:00 62.914 kg [facility] BMI 2023-04-18 15:54:00 23.81 kg/m2 [facility] Systolic blood pressure 2023-04-01 18:05:00 140 mm[Hg] [facility] Diastolic blood pressure 2023-04-01 18:05:00 87 mm[Hg] [facility] Heart rate 2023-04-01 18:02:00 97 /min [facility] Body temperature 2023-04-01 18:02:00 36 [place] [facility] Body height 2023-04-01 18:02:00 165.1 cm [facility] Body weight 2023-04-01 18:02:00 61.236 kg [facility] BMI 2023-04-01 18:02:00 22.47 kg/m2 [facility] Oxygen saturation in Arterial blood by Pulse oximetry 2023-04-01 18:02:00 97 /min [facility] Systolic blood pressure 2023-02-14 15:01:00 126 mm[Hg] [facility] Diastolic blood pressure 2023-02-14 15:01:00 58 mm[Hg] [facility] Heart rate 2023-02-14 15:01:00 70 /min [facility] Body temperature 2023-02-14 15:01:00 36.61 [place] [facility] Respiratory rate 2023-02-14 15:01:00 18 /min [facility] Body height 2023-02-14 15:01:00 165.1 cm [facility] Body weight 2023-02-14 15:01:00 66.815 kg [facility] BMI 2023-02-14 15:01:00 24.51 kg/m2 [facility] Oxygen saturation in Arterial blood by Pulse oximetry 2023-02-14 15:01:00 100 /min [facility] Systolic blood pressure 2023-01-03 14:37:00 130 mm[Hg] [facility] Diastolic blood pressure 2023-01-03 14:37:00 85 mm[Hg] [facility] Heart rate 2023-01-03 14:37:00 66 /min [facility] Body temperature 2023-01-03 14:37:00 36.28 [place] [facility] Body height 2023-01-03 14:37:00 165.1 cm [facility] Body weight 2023-01-03 14:37:00 68.221 kg [facility] BMI 2023-01-03 14:37:00 25.03 kg/m2 [facility] Oxygen saturation in Arterial blood by Pulse oximetry 2023-01-03 14:37:00 98 /min [facility] Systolic blood pressure 2022-12-28 00:30:00 133 mm[Hg] [facility] Diastolic blood pressure 2022-12-28 00:30:00 75 mm[Hg] [facility] Heart rate 2022-12-28 00:30:00 82 /min [facility] Body temperature 2022-12-28 00:30:00 37.22 [place] [facility] Respiratory rate 2022-12-28 00:30:00 16 /min [facility] Body height 2022-12-28 00:30:00 165.1 cm [facility] Body weight 2022-12-28 00:30:00 67.858 kg [facility] BMI 2022-12-28 00:30:00 24.89 [facility] in Arterial blood by Pulse oximetry 2022-12-28 00:30:00 100 /min [facility] Systolic blood pressure 2022-12-28 00:06:00 145 mm[Hg] [facility] Diastolic blood pressure 2022-12-28 00:06:00 102 mm[Hg] [facility] Heart rate 2022-12-28 00:06:00 88 /min [facility] Body temperature 2022-12-28 00:06:00 36.39 [place] [facility] Respiratory rate 2022-12-28 00:06:00 17 /min [facility] Body weight 2022-12-28 00:06:00 67.813 kg [facility] BMI 2022-12-28 00:06:00 25.66 kg/m2 [facility] Oxygen saturation in Arterial blood by Pulse oximetry 2022-12-28 00:06:00 98 /min [facility] Systolic blood pressure 2022-12-20 14:41:00 128 mm[Hg] [facility] Diastolic blood pressure 2022-12-20 14:41:00 79 mm[Hg] [facility] Heart rate 2022-12-20 14:41:00 79 /min [facility] Body temperature 2022-12-20 14:41:00 36 [place] [facility] Respiratory rate 2022-12-20 14:41:00 18 /min [facility] Body height 2022-12-20 14:41:00 162.6 cm [facility] Body weight 2022-12-20 14:41:00 69.854 kg [facility] BMI 2022-12-20 14:41:00 26.43 kg/m2 [facility] Systolic blood pressure 2022-09-21 15:50:00 132 mm[Hg] [facility] Diastolic blood pressure 2022-09-21 15:50:00 73 mm[Hg] [facility] Heart rate 2022-09-21 15:45:00 73 /min [facility] Body temperature 2022-09-21 15:45:00 36.72 [place] [facility] Respiratory rate 2022-09-21 15:45:00 19 /min [facility] Body height 2022-09-21 15:45:00 165.1 cm [facility] Body weight 2022-09-21 15:45:00 76.068 kg [facility] BMI 2022-09-21 15:45:00 27.91 kg/m2 [facility] Systolic blood pressure 2022-02-15 13:51:00 127 mm[Hg] [facility] Diastolic blood pressure 2022-02-15 13:51:00 88 mm[Hg] [place] [facility] Heart rate 2022-02-15 13:51:00 71 /min [facility] Body temperature 2022-02-15 13:51:00 36.11 [place] [facility] Respiratory rate 2022-02-15 13:51:00 16 /min [facility] Body height 2022-02-15 13:51:00 165.1 cm [facility] Body weight 2022-02-15 13:51:00 89.313 kg [facility] BMI 2022-02-15 13:51:00 32.77 kg/m2 [facility] Procedures Procedure Date / Time Performed Performing Clinician Source POCT URINALYSIS 2024-01-01 15:29:00 Leslie Castellanos [facility] POCT URINALYSIS 2023-12-30 13:59:00 Leslie Castellanos [facility] POCT URINALYSIS 2023-12-10 19:51:00 Leslie Castellanos [facility] FIRST TRIMESTER ULTRASOUND 2023-11-27 20:41:01 Leslie Castellanos [facility] PAP SMEAR-LIQUID BASED-CP 2023-11-14 16:19:00 Leslie Castellanos [facility] GLUCOSE 1 HOUR POST PRANDIAL 2023-11-14 15:53:00 Leslie Castellanos [facility] CBC WITH DIFF 2023-11-14 15:53:00 Leslie Castellanos [facility] HEPATITIS B SURFACE ANTIGEN 2023-11-14 15:53:00 Leslie Castellanos [facility] HB ABO GROUPING 2023-11-14 15:53:00 Leslie Castellanos [facility] HIV 1/2 AG-AB WITH REFLEX 2023-11-14 15:53:00 Leslie Castellanos [facility] POCT URINALYSIS W/O SPECIFIC GRAVITY 2023-11-14 14:37:00 Carla Vaughn [facility] POCT TEST 2023-11-14 14:27:00 Sivan Vaughn [facility] LIPASE 2023-11-12 03:10:00 Arnold Blum [facility] COMP. METABOLIC PANEL (21717) 2023-11-12 03:10:00 Arnold Blum [facility] CBC WITH DIFF 2023-11-12 03:10:00 Arnold Blum [facility] URINALYSIS 2023-11-12 03:10:00 [facility] (LAB ONLY) 2023-10-24 18:54:00 Nacho Nguyen [facility] THYROID STIMULATING HORMONE 2023-10-24 17:55:00 Nacho Nguyen [facility] COMP. METABOLIC PANEL (24247) 2023-10-24 17:55:00 Nacho Nguyen [facility] TOTAL BETA HCG ASSAY 2023-10-24 17:55:00 Wendy, And res [facility] CBC WITH DIFF 2023-10-24 17:55:00 Nacho Nguyen [facility] HB ABO GROUPING 2023-10-24 17:55:00 Nacho Nguyen [facility] CONSENT/REFUSAL FOR DIAGNOSIS AND TREATMENT 2023-10-24 16:28:49 Doctor Unassigned, Hays [facility] POCT TEST 2023-04-24 15:42:00 Berkley Dickson [facility] URINALYSIS 2023-04-24 15:38:00 Rahel Dickson [facility] ASSIGNMENT OF BENEFITS 2023-04-24 15:20:04 Docto r Unassigned, [place] [facility] CONSENT/REFUSAL FOR DIAGNOSIS AND TREATMENT 2023-04-24 15:04:50 Doctor Unassigned, [place]ays [facility] POCT TEST 2023-04-18 00:00:00 Adriano Olivier [facility] COMP. METABOLIC PANEL (30816) 2023-04-01 18:36:00 Eliza Olivier [facility] CBC WITH DIFF 2023-04-01 18:36:00 Eliza Olivier [facility] POCT URINALYSIS 2023-01-03 15:09:00 [facility] 2023-01-03 15:09:00 Adriano Olivier [facility] CT ABDOMEN PELVIS W CONTRAST 2022-12-28 02:03:46 Yaw Bro [facility] ASSIGNMENT OF BENEFITS 2022-12-28 01:22:25 Docto r Unassigned, H[place] [facility] POCT TEST 2022-12-28 01:05:00 Ksaandra Bro [facility] LIPASE 2022-12-28 01:04:00 [facility] THYROID STIMULATING HORMONE 2022-12-28 01:04:00 Yaw Bro [facility] COMP. METABOLIC PANEL (81125) 2022-12-28 01:04:00 Yaw Bro [facility] CBC WITH DIFF 2022-12-28 01:04:00 Yaw Bro [facility] URINALYSIS 2022-12-28 01:04:00 [facility] CONSENT/REFUSAL FOR DIAGNOSIS AND TREATMENT 2022-12-28 00:17:56 Doctor Unassigned, Hays [facility] ASSIGNMENT OF BENEFITS 2022-12-20 14:26:08 Docto r Unassigned, Hays [facility] POCT TEST 2022-09-21 00:00:00 Sivan Vaughn [facility] Encounters Start Date/Time End Date/Time Encounter Type Admission Type Attending [facility] Care Department Encounter ID Source 2021-06-08 19:53:[address] [facility] [id number] [facility] 2024-01-01 10:15:00 2024-01-01 10:48:59 [address] R RANDI DO [facility] [id number] [facility] 2024-01-01 10:15:00 2024-01-01 10:48:59 Office Visit Risk, Ang-Rmchp-N p/High Randi Do [facility] RN EMERGENCY ROOM [facility] & CHILD [facility] 1.2.840.114 350.1.13.10 4.2.7.2.686 [id number] 107 [id number] [facility] 2023-12-31 00:00:00 2023-12-31 15:56:17 Telephone Leslie Castellanos [facility] RN EMERGENCY ROOM [facility] & CHILD [facility] 1.2.840.114 350.1.13.10 4.2.7.2.686 [id number] 107 [id number] [facility] 2023-12-31 00:00:00 2023-12-31 13:41:30 Telephone Leslie Castellanos [facility] & CHILD [facility] 1.2.840.114 350.1.13.10 4.2.7.2.686 [id number] 107 [id number] [facility] 2023-12-30 08:15:00 2023-12-30 09:24:22 Outpatient R LESLIE CASTELLANOS [facility] [id number] [facility] 2023-12-30 08:15:00 2023-12-30 09:24:22 Routine Visit Leslie Castellanos [facility] 1.2.840.114 350.1.13.10 4.2.7.2.686 [id number] 107 [id number] [facility] 2023-12-25 00:00:00 2023-12-25 15:45:03 Telephone Leslie Castellanos [facility] RN EMERGENCY ROOM [facility] & CHILD [facility] 1.2.840.114 350.1.13.10 4.2.7.2.686 [id number] 107 [id number] [facility] 2023-12-10 13:30:00 2023-12-10 14:18:53 Outpatient R ANATOLY LESLIE [facility] [id number] [facility] 2023-12-10 13:30:00 2023-12-10 14:18:53 Routine Visit Leslie Castellanos [facility] RN EMERGENCY ROOM [facility] & CHILD [facility] 1.2.840.114 350.1.13.10 4.2.7.2.686 [id number] 107 [id number] [facility] 2023-11-29 00:00:00 2023-11-29 00:00:00 Abstract Leslie Castellanos [facility] RN EMERGENCY ROOM [facility] & CHILD [facility] 1.2.840.114 350.1.13.10 4.2.7.2.686 [id number] 107 [id number] [facility] 2023-11-27 11:00:00 2023-11-27 11:00:[address] [facility] [id number] [facility] 2023-11-27 00:00:00 2023-11-27 00:00:00 Telephone Leslie Castellanos [facility] RN EMERGENCY ROOM [facility] & CHILD [facility] 1..840.114 350.1.13.10 4.2.7.2.686 [id number] 107 [id number] [facility] 2023-11-26 10:00:00 2023-11-26 10:28:29 Outpatient P ERVIN [facility] [id number] [facility] 2023-11-26 10:00:00 2023-11-26 10:28:29 Burner Machine Operator Visit Ultrasound, Ervin Lopez [facility] RN EMERGENCY ROOM [facility] MATERNAL & CHILD [facility] 1.2.840.114 350.1.13.10 4.2.7.2.686 [id number] [facility] 2023-11-21 08:30:00 2023-11-21 08:30:00 Outpatient R LESLIE CASTELLANOS [facility] [id number] [facility] 2023-11-20 15:00:00 2023-11-20 15:00:[address] [facility] [id number] [facility] 2023-11-20 00:00:00 2023-11-20 00:00:00 Abstract Leslie Castellanos [facility] RN EMERGENCY ROOM [facility] & CHILD [facility] 1.2.840.114 350.1.13.10 4.2.7.2.686 [id number] 107 [id number] [facility] 2023-11-15 00:00:00 2023-11-15 00:00:00 Telephone Leslie Castellanos [facility] RN EMERGENCY ROOM [facility] & CHILD [facility] 1.2.840.114 350.1.13.10 4.2.7.2.686 [id number] 107 [id number] [facility] 2023-11-14 09:45:00 2023-11-14 11:19:33 Initial Visit Leslie Castellanos Brenda A [facility] RN EMERGENCY ROOM [facility] & CHILD [facility] 1.2.840.114 350.1.13.10 4.2.7.2.686 [id number] 107 [id number] [facility] 2023-11-14 09:15:00 2023-11-14 09:46:54 Outpatient R CARLA VAUGHN [facility] [id number] [facility] 2023-11-11 21:41:00 2023-11-11 23:50:00 Emergency X ARNOLD BLUM [facility] ERT [id number] [facility] 2023-11-11 21:41:00 2023-11-11 23:50:00 Emergency Arnold Blum [facility] 1.840.114 350.1.13.10 4.2.7.2.686 [id number] [facility] 2023-11-04 10:36:00 2023-11-04 13:26:00 Emergency X Lawson COCHRAN [facility] ERT [id number] [facility] 2023-11-01 00:00:00 2023-11-01 00:00:00 Telephone [facility] 1.840.114 350.1.13.10 4.2.7.2.686 [id number] [facility] 2023-10-31 08:00:00 2023-10-31 08:00:[address] [facility] [id number] [facility] 2023-10-30 00:00:00 2023-10-30 00:00:00 Outpatient Raju_P [facility] G [id number] [facility] 2023-10-28 13:45:00 2023-10-28 13:45:00 Outpatient R THIENMAX LESLIE [facility] [id number] [facility] 2023-10-28 13:15:00 2023-10-28 13:15:[address] [facility] [id number] [facility] 2023-10-24 11:40:00 2023-10-24 16:53:00 Emergency X NACHO NGUYEN [facility] ERT [id number] [facility] 2023-10-24 11:40:00 2023-10-24 16:53:00 Emergency Nacho Nguyen [facility] 1..840.114 350.1.13.10 4.2.7.2.686 [id number] [facility] 2023-10-24 00:00:00 2023-10-24 00:00:00 Telephone Pgy3 [facility] 1..114 350.1.13.10 4.2.7.2.686 [id number] [facility] 2023-09-17 00:00:00 2023-09-17 00:00:00 Outpatient Ivan LUBIN [facility] [id number] [facility] 2023-09-13 10:00:00 2023-09-13 10:00:00 Outpatient BRUNA ESCAMILLA [facility] [id number] [facility] 2023-09-02 00:00:00 2023-09-02 00:00:00 Outpatient Ivan LUBIN [facility] [id number] [facility] 2023-08-23 00:00:00 2023-08-23 00:00:00 Patient Secure Msg Doctor Unassigned, [place] [facility] 1..114 350.1.13.10 4.2.7.2.686 [id number] [facility] 2023-08-20 14:30:00 2023-08-20 15:39:40 Outpatient Ivan LUBIN [facility] [id number] [facility] 2023-08-20 14:30:00 2023-08-20 15:39:40 [facility]..114 350.1.13.10 4.2.7.2.686 [id number] [facility] 2023-08-13 00:00:00 2023-08-13 00:00:00 Telephone Gretchen Murray [facility] 1..114 350.1.13.10 4.2.7.2.686 [id number] [facility] 2023-07-18 08:30:00 2023-07-18 08:30:00 Outpatient R ELIZA OLIVIER [facility] [id number] [facility] 2023-04-24 10:13:00 2023-04-24 12:05:00 Emergency X RAHEL DICKSON [facility] ERT [id number] [facility] 2023-04-24 10:13:00 2023-04-24 12:05:00 Emergency Rahel Dickson [facility] 1.2.840.114 350.1.13.10 4.2.7.2.686 [id number] [facility] 2023-04-18 11:00:00 2023-04-18 11:09:48 Outpatient R ELIZA OLIVIER [facility] [id number] [facility] 2023-04-18 11:00:00 2023-04-18 11:09:48 Office Visit Carlos Olivierssica [facility] 1.2.840.114 350.1.13.10 4.2.7.2.686 [id number] [facility] 2023-04-04 00:00:00 2023-04-04 00:00:00 Telephone Eliza [facility] 1.2.840.114 350.1.13.10 4.2.7.2.686 [id number] [facility] 2023-04-01 13:53:27 2023-04-01 23:59:00 Outpatient R ELIZA OLIVIER [facility] [id number] [facility] 2023-04-01 13:45:00 2023-04-01 23:59:00 Hospital Encounter Eliza Olivier [facility] 1.2.840.114 350.1.13.10 4.2.7.2.686 [id number] [facility] 2023-04-01 13:30:00 2023-04-01 13:36:46 Burner Machine Operator Visit 2, Adc Lab Eliza Olivier [facility] 1.2.840.114 350.1.13.10 4.2.7.2.686 [id number] [facility] 2023-04-01 13:00:00 2023-04-01 13:28:27 Office Visit Eliza Olivier [facility] 1.2.840.114 350.1.13.10 4.2.7.2.686 [id number] [facility] 2023-03-14 11:00:00 2023-03-14 11:00:00 Outpatient R ELIZA OLIVIER [facility] [id number] [facility] 2023-03-09 00:00:00 2023-03-09 00:00:00 [facility] 1.2.840.114 350.1.13.10 4.2.7.2.686 [id number] [facility] 2023-02-14 10:00:00 2023-02-14 10:27:33 Outpatient R ELIZA OLIVIER [facility] [id number] [facility] 2023-02-14 10:00:00 2023-02-14 10:27:33 [facility] 1.2.840.114 350.1.13.10 4.2.7.2.686 [id number] [facility] 2023-01-23 14:30:00 2023-01-23 14:30:00 Outpatient R LESLIE CASTELLANOS [facility] [id number] [facility] 2023-01-10 00:00:00 2023-01-10 00:00:00 Outpatient R ELIZA OLIVIER [facility] [id number] [facility] 2023-01-04 00:00:00 2023-01-04 00:00:00 Telephone Leslie Castellanos [facility] RN EMERGENCY ROOM [facility] MATERNAL & [facility] 1.2.840.114 350.1.13.10 4.2.7.2.686 [id number] [facility] 2023-01-03 10:15:00 2023-01-03 10:30:00 Burner Machine Operator Visit 2, Adc Lab Carlos Olivierssica [facility] 1.2.840.114 350.1.13.10 4.2.7.2.686 [id number] [facility] 2023-01-03 09:30:00 2023-01-03 10:13:42 Outpatient R ELIZA OLIVIER [facility] [id number] [facility] 2023-01-03 09:30:00 2023-01-03 10:13:42 Office Visit Eliza Olivier [facility] 1.2.840.114 350.1.13.10 4.2.7.2.686 [id number] [facility] 2023-01-03 00:00:00 2023-01-03 00:00:00 Telephone Leslie Castellanos [facility] RN EMERGENCY ROOM [facility] MATERNAL & CHILD [facility] 1.2.840.114 350.1.13.10 4.2.7.2.686 [id number] [facility] 2023-01-01 15:15:00 2023-01-01 15:15:00 Outpatient R LESLIE CASTELLANOS [facility] [id number] [facility] 2023-01-01 08:30:00 2023-01-01 08:30:00 Outpatient R ELIZA OLIVIER [facility] [id number] [facility] 2022-12-27 19:33:00 2022-12-27 21:29:00 Emergency X YAW BRO [facility] ERT [id number] [facility] 2022-12-27 19:33:00 2022-12-27 21:29:00 Emergency Yaw Bro [facility] 1.0.114 350.1.13.10 4.2.7.2.686 [id number] [facility] 2022-12-27 19:00:00 2022-12-27 19:20:00 Nurse Visit Nurse, Arcadio Cardenas [facility] Unknown, Attending [facility] 1..114 350.1.13.10 4.2.7.2.686 [id number] [facility] 2022-12-27 19:00:00 2022-12-27 19:00:00 Outpatient R UNKNOWN, ATTENDING [facility] [id number] [facility] 2022-12-27 19:00:00 2022-12-27 19:00:00 Outpatient R BAILEE LIZ [facility] [id number] [facility] 2022-12-25 00:00:00 2022-12-25 00:00:00 Telephone Leslie Castellanos [facility] RN EMERGENCY ROOM [facility] MATERNAL & CHILD [facility] 1..114 350.1.13.10 4.2.7.2.686 [id number] [facility] 2022-12-20 10:00:00 2022-12-20 10:58:56 Outpatient R LESLIE CASTELLANOS [facility] [id number] [facility] 2022-12-20 10:00:00 2022-12-20 10:58:56 Office Visit Leslie Castellanos [facility] RN EMERGENCY ROOM [facility] & CHILD [facility] 1..114 350.1.13.10 4.2.7.2.686 [id number] 107 [id number] [facility] 2022-12-20 00:00:00 2022-12-20 00:00:00 Orders Only Doctor Unassigned, [place] [facility] 1.2840.114 350.1.13.10 4.2.7.2.686 [id number] [facility] 2022-09-24 00:00:00 2022-09-24 00:00:00 Case Management Carla Vaughn [facility] RN EMERGENCY ROOM [facility] & CHILD [facility] 1.2.840.114 350.1.13.10 4.2.7.2.686 [id number] 107 [id number] [facility] 2022-09-21 09:30:00 2022-09-21 10:18:05 [address] [facility] [id number] [facility] 2022-09-21 09:30:00 2022-09-21 10:18:05 Office Visit Provider, Arcadio-[facility] Temp Carla Vaughn [facility] RN EMERGENCY ROOM [facility] CHILD [facility] 1.2.840.114 350.1.13.10 4.2.7.2.686 [id number] 107 [id number] [facility] 2022-09-21 00:00:00 2022-09-21 00:00:00 Letter (Out) Carla Vaughn [facility] 1.2.840.114 350.1.13.10 4.2.7.2.686 [id number] 107 [id number] [facility] 2022-09-07 08:30:00 2022-09-07 08:30:00 Outpatient R ROSALES CHAPIN EMILY [facility] [id number] [facility] 2022 13:40:00 2022 13:40:00 Outpatient R HENOK, MELINDA [facility] [id number] [facility] 2022-02-15 09:00:00 2022-02-15 09:18:29 Office Visit Jacob Barrientos Ivan [facility] RN EMERGENCY ROOM [facility] & CHILD [facility] 1.2.840.114 350.1.13.10 4.2.7.2.686 [id number] [facility] 2022-02-15 09:00:00 2022-02-15 09:18:[address] [facility] [id number] [facility] 2022-02-15 09:00:00 2022-02-15 09:00:00 Outpatient CIERRA BAUTISTAJHONYFANYPrecious [facility] [id number] [facility] 2022-02-15 09:00:00 2022-02-15 09:00:00 Outpatient [address]UTISTAJHONYCARLOS [facility] [id number] [facility] 2022-01-12 00:00:00 2022-01-12 00:00:00 Telephone Missael Barrientosprecious Love [facility] RN EMERGENCY ROOM [facility] & CHILD [facility] 1.2.840.114 350.1.13.10 4.2.7.2.686 [id number] 107 [id number] [facility] 2022-01-11 15:15:00 2022-01-11 16:08:32 Office Visit Jacob Barrientos Ivan [facility] RN EMERGENCY ROOM [facility] CHILD [facility] 1.2.840.114 350.1.13.10 4.2.7.2.686 [id number] 107 [id number] [facility] 2022-01-11 15:15:00 2022-01-11 16:08:[address] [facility] [id number] [facility] 2022-01-11 15:15:00 2022-01-11 15:15:[address] [id number] [facility] 2021-11-16 10:30:00 2021-11-16 10:30:[address] [facility] [id number] [facility] 2021-11-16 08:00:00 2021-11-16 08:20:47 Outpatient R JACOB BARRIENTOS [facility] [id number] [facility] 2021-11-16 08:00:00 2021-11-16 08:20:47 Nurse Visit Visit, Ang-Rmchp Nurse BarrientosJacob [facility] RN EMERGENCY ROOM [facility] CHILD [facility] 1.2.840.114 350.1.13.10 4.2.7.2.686 [id number] [facility] 2021-11-03 00:00:00 2021-11-03 00:00:00 Telephone BarrientosJacob [facility] RN EMERGENCY ROOM [facility] CHILD [facility] 1.2.840.114 350.1.13.10 4.2.7.2.686 [id number] 107 [id number] [facility] 2021-11-02 10:30:00 2021-11-02 11:58:09 Office Visit BarrientosJacob [facility] RN EMERGENCY ROOM [facility] CHILD [facility] 1.2.840.114 350.1.13.10 4.2.7.2.686 [id number] 107 [id number] [facility] 2021-11-02 10:30:00 2021-11-02 11:58:[address] [facility] [id number] [facility] 2021-11-02 10:30:00 2021-11-02 11:58:[address] [facility] [id number] [facility] 2021-11-02 10:30:00 2021-11-02 10:30:00 Outpatient R JACOB BARRIENTOS [facility] [id number] [facility] 2021-11-02 10:30:00 2021-11-02 10:30:00 Outpatient R JACOB [facility]RIENTOS [facility] [id number] [facility] 2021-11-02 00:00:00 2021-11-02 00:00:00 Orders Only Doctor Unassigned, [place] [facility] 1.840.114 350.1.13.10 4.2.7.2.686 [id number] [facility] 2021-10-16 19:47:00 2021-10-16 20:32:00 Emergency X ALIVIA LEE [facility] ERT [id number] [facility] 2021-10-16 19:47:00 2021-10-16 20:32:00 Emergency Alivia Lee F [facility] 1..114 350.1.13.10 4.2.7.2.686 [id number] [facility] 2021-08-01 08:30:00 2021-08-01 09:21:32 Outpatient R [address]ACOB [facility]RI[address] [facility] [id number] [facility] 2021-08-01 08:30:00 2021-08-01 09:21:32 Office Visit Jacob Barrientos [facility] RN EMERGENCY ROOM [facility] & CHILD [facility] 1..114 350.1.13.10 4.2.7.2.686 [id number] [facility] 2021-08-01 00:00:00 2021-08-01 00:00:00 Orders Only Doctor Unassigned, [place] [facility] 1..114 350.1.13.10 4.2.7.2.686 [id number] [facility] 2021-07-31 00:00:00 2021-07-31 00:00:00 Telephone Jacob Barrientos [facility] RN EMERGENCY ROOM [facility] & CHILD [facility] 1.840.114 350.1.13.10 4.2.7.2.686 [id number] [facility] 2021-06-13 10:30:00 2021-06-13 10:58:17 Outpatient R CINDY APARICIO [facility] [id number] [facility] 2021-06-13 10:01:19 2021-06-13 10:58:17 Office Visit Cindy Aparicio [facility] RN EMERGENCY ROOM [facility] & [facility]ILD [facility] 1..840.114 350.1.13.10 4.2.7.2.686 [id number] [facility] 2021-06-13 10:30:00 2021-06-13 10:30:00 Outpatient R CINDY APARICIO [facility] [id number] [facility] 2021-06-06 00:00:00 2021-06-06 00:00:00 Telephone Jacob Barrientos [facility] RN EMERGENCY ROOM [facility] & CHILD [facility] ..840.114 350.1.13.10 4.2.7.2.686 [id number] [facility] 2021-04-10 10:00:00 2021-04-10 10:00:00 Outpatient R LESLIE CASTELLANOS [facility] [id number] [facility] 2021-03-31 00:00:00 2021-03-31 00:00:00 Letter (Out) Rayne Jones [facility] ..840.114 350.1.13.10 4.2.7.2.686 [id number] [facility] 2021-03-30 12:30:00 2021-03-30 12:30:00 Outpatient R NI ALVAREZ [facility] [id number] [facility] 2020-12-30 09:29:12 2020-12-30 10:10:09 Office Visit Jacob Barrientos [facility] RN EMERGENCY ROOM [facility] & CHILD [facility] ..840.114 350.1.13.10 4.2.7.2.686 [id number] [facility] 2020-12-30 09:29:12 2020-12-30 10:10:09 Office Visit Jacob Barrientos [facility] RN EMERGENCY ROOM [facility] & CHILD [facility] 1.840.114 350.1.13.10 4.2.7.2.686 [id number] 2020-12-30 09:30:00 2020-12-30 09:30:00 Outpatient R LESLIE [facility]STELL[facility]OS [facility] [id number] [facility] 2020-12-30 08:45:00 2020-12-30 08:45:00 Outpatient R JACOB [facility]RI[facility] [id number] [facility] 2020-12-16 08:57:28 2020-12-16 09:27:28 Office Visit Leslie Castellanos [facility] RN EMERGENCY ROOM [facility] CHILD [facility] 1.840.114 350.1.13.10 4.2.7.2.686 [id number] [facility] 2020-12-16 09:00:00 2020-12-16 09:00:[address] [facility] [id number] [facility] 2020-12-16 00:00:00 2020-12-16 00:00:00 Orders Only Doctor Unassigned, [place] [facility] .840.114 350.1.13.10 4.2.7.2.686 [id number] [facility] 2020-12-02 00:00:00 2020-12-02 00:00:00 Telephone Leslie Castellanos [facility] RN EMERGENCY ROOM [facility] CHILD [facility] 1.840.114 350.1.13.10 4.2.7.2.686 [id number] 107 [id number] [facility] 2020-11-29 15:31:01 2020-11-29 15:46:01 Nurse Visit Visit, Ang-Rmchp Nurse BarrientosJacob [facility] RN EMERGENCY ROOM [facility] 1.2.840.114 350.1.13.10 4.2.7.2.686 [id number] 107 [id number] [facility] 2020-11-29 15:30:00 2020-11-29 15:30:[address] [facility] [id number] [facility] 2020-11-29 00:00:00 2020-11-29 00:00:00 Telephone Barrientos, Jacob Love [facility] RN EMERGENCY ROOM [facility] 1.2.840.114 350.1.13.10 4.2.7.2.686 [id number] 107 [id number] [facility] 2020-11-02 10:16:29 2020-11-02 11:05:27 Office Visit Barrientos, Jacob Love [facility] RN EMERGENCY ROOM [facility] 1.2.840.114 350.1.13.10 4.2.7.2.686 [id number] 107 [id number] [facility] 2020-11-02 10:15:00 2020-11-02 10:15:00 Outpatient Ivan [facility]OS [facility] [id number] [facility] 2020-11-02 00:00:00 2020-11-02 00:00:00 Orders Only Doctor Unassigned, H[place] [facility] 1..840.114 350.1.13.10 4.2.7.2.686 [id number] [facility] 2020-11-01 15:00:00 2020-11-01 15:00:[address] [facility] [id number] [facility] 2020-11-01 00:00:00 2020-11-01 00:00:00 Patient Outreach Joel Matt [facility] 1.114 350.1.13.10 4.2.7.2.686 [id number] [facility] 2020-07-13 00:00:00 2020-07-13 00:00:00 Patient Secure Msg Doctor Unassigned, [place] MAURA COKER 1.114 350.1.13.10 4.2.7.2.686 [id number] [facility] 2020-07-04 00:00:00 2020-07-04 00:00:00 RefLeslie Marroquin [facility] RN EMERGENCY ROOM [facility] .114 350.1.13.10 4.2.7.2.686 [id number] 107 [id number] [facility] 2020-06-13 09:15:00 2020-06-13 09:15:00 Outpatient R LESLIE [facility] [id number] [facility] 2020-06-13 09:15:00 2020-06-13 09:15:00 Outpatient R LESLIE [facility] [id number] [facility] 2020-06-01 00:00:00 2020-06-01 00:00:00 Leslie Nassar [facility] RN EMERGENCY ROOM [facility] .114 350.1.13.10 4.2.7.2.686 [id number] 107 [id number] [facility] 2020-05-30 00:00:00 2020-05-30 00:00:00 Elena Sanchez [facility] Profwei pires Office [address] .114 350.1.13.10 4.2.7.2.686 [id number] [facility] 2020-05-27 10:30:00 2020-05-27 10:30:00 Outpatient R LESLIE [facility] [id number] [facility] 2020-05-27 10:30:00 2020-05-27 10:30:00 Outpatient R LESLIE [facility] [id number] [facility] 2020-05-10 11:18:40 2020-05-10 11:38:40 Urgent Care Provider, [facility] Elena Hatfield [facility] Professio nal Office [facility] [address] 1.84.114 350.1.13.10 4.2.7.2.686 [id number] [facility] 2020-05-10 11:20:00 2020-05-10 11:20:00 Outpatient R ELENA HATFIELD [facility] [id number] [facility] 2020-05-09 00:00:00 2020-05-09 00:00:00 Telephone Jacob Barrientos [facility] RN EMERGENCY ROOM [facility] 1.840.114 350.1.13.10 4.2.7.2.686 [id number] 107 [id number] [facility] 2020-03-31 09:26:23 2020-03-31 10:13:41 Office Visit Leslie Castellanos [facility] RN EMERGENCY ROOM [facility] 1..840.114 350.1.13.10 4.2.7.2.686 [id number] 107 [id number] [facility] 2020-03-31 09:00:00 2020-03-31 09:00:00 Outpatient R LESLIE [facility] [id number] [facility] 2020-03-11 00:00:00 2020-03-11 00:00:00 Telephone Leslie Castellanos [facility] RN EMERGENCY ROOM [facility] 1.840.114 350.1.13.10 4.2.7.2.686 [id number] [facility] 2020-03-10 14:30:00 2020-03-10 14:30:00 Outpatient R LESLIE CA[facility] [facility] [id number] [facility] 2020-03-10 10:09:10 2020-03-10 11:09:52 Office Visit Leslie Castellanos Patricio [facility] RN EMERGENCY ROOM [facility] 1.2.840.114 350.1.13.10 4.2.7.2.686 [id number] 107 [id number] [facility] 2020-03-07 00:00:00 2020-03-07 00:00:00 Telephone BarrientosJacob [facility] RN EMERGENCY ROOM [facility] CHILD [facility] 1.2.840.114 350.1.13.10 4.2.7.2.686 [id number] 107 [id number] [facility] 2019-12-29 13:01:04 2019-12-30 11:33:02 Initial Visit Jacob Barrientos [facility] RN EMERGENCY ROOM [facility] 1.2.840.114 350.1.13.10 4.2.7.2.686 [id number] 107 [id number] [facility] 2019-12-30 00:00:00 2019-12-30 00:00:00 Patient Secure Msg Doctor Unassigned, Hays [facility] RN EMERGENCY ROOM [facility] 1.2.840.114 350.1.13.10 4.2.7.2.686 [id number] 107 [id number] [facility] 2019-12-30 00:00:00 2019-12-30 00:00:00 Patient Secure Msg Doctor Unassigned, Hays [facility] RN EMERGENCY ROOM [facility] 1.2.840.114 350.1.13.10 4.2.7.2.686 [id number] 107 [id number] [facility] 2019-12-29 14:04:59 2019-12-29 14:20:25 Office Visit Jacob Barrientos [facility] RN EMERGENCY ROOM [facility] 1.2.840.114 350.1.13.10 4.2.7.2.686 [id number] 107 [id number] [facility] 2019-12-29 12:45:00 2019-12-29 12:45:00 Outpatient R SHEILA BARRIENTOSFANYPrecious [facility] [id number] [facility] 2019-12-15 07:30:05 2019-12-15 08:20:00 Emergency Fletcher Ramesh [facility] 1.2.840.114 350.1.13.10 4.2.7.2.686 [id number] [facility] 2019-12-14 00:00:00 2019-12-14 00:00:00 Patient Secure Ethel Abraham [facility] RN EMERGENCY ROOM [facility] 1.2.840.114 350.1.13.10 4.2.7.2.686 [id number] 107 [id number] [facility] 2019-11-30 08:30:00 2019-11-30 08:30:[address] [facility] [id number] [facility] 2019-11-27 09:30:00 2019-11-27 09:30:[address] [facility] [id number] [facility] 2019-11-26 09:00:00 2019-11-26 09:00:[address] [facility] [id number] [facility] 2019-11-26 00:00:00 2019-11-26 00:00:00 Telephone BarrientosJacob [facility] RN EMERGENCY ROOM [facility] 1..840.114 350.1.13.10 4.2.7.2.686 [id number] 107 [id number] [facility] 2019-11-24 09:30:00 2019-11-24 09:30:00 Outpatient R LESLIE CASTE[facility]OS [facility] [id number] [facility] 2019-11-03 05:13:00 2019-11-03 05:13:00 Outpatient Raju_P [facility] MMG [id number] [facility] 2019-10-27 00:00:00 2019-10-27 00:00:00 Patient Secure Jacob Caro [facility] RN EMERGENCY ROOM [facility] & CHILD [facility] 1.2.840.114 350.1.13.10 4.2.7.2.686 [id number] 107 [id number] [facility] 2019-10-16 10:45:40 2019-10-16 11:26:43 Office Visit Leslie Castellanos [facility] RN EMERGENCY ROOM [facility] 1..840.114 350.1.13.10 4.2.7.2.686 [id number] [facility] 2019-10-16 10:45:00 2019-10-16 10:45:00 Outpatient R LESLIE CASTELL[facility]OS [facility] [id number] [facility] 2019-10-07 12:51:31 2019-10-07 13:44:17 Office Visit Leslie Castellanos [facility] RN EMERGENCY ROOM [facility] 1..840.114 350.1.13.10 4.2.7.2.686 [id number] [facility] 2019-10-07 13:00:00 2019-10-07 13:00:00 Outpatient R LESLIE CASTELL[facility]OS [facility] [id number] [facility] 2019-10-06 00:00:00 2019-10-06 00:00:00 Telephone Leslie Castellanos [facility] RN EMERGENCY ROOM [facility] 1..840.114 350.1.13.10 4.2.7.2.686 [id number] [facility] 2019-10-02 14:07:49 2019-10-02 15:15:37 Office Visit Leslie Castellanos [facility] RN EMERGENCY ROOM [facility] 1.2.840.114 350.1.13.10 4.2.7.2.686 [id number] [facility] 2019-08-25 09:57:53 2019-08-25 13:09:26 Office Visit Leslie Castellanos [facility] RN EMERGENCY ROOM [facility] 1.2.840.114 350.1.13.10 4.2.7.2.686 [id number] [facility] 2019-08-25 00:00:00 2019-08-25 00:00:00 Orders Only Doctor Unassigned, [place] [facility] 1.2.840.114 350.1.13.10 4.2.7.2.686 [id number] [facility] 2019-08-25 00:00:00 2019-08-25 00:00:00 Letter (Out) Leslie Castellanos [facility] RN EMERGENCY ROOM [facility] 1.2.840.114 350.1.13.10 4.2.7.2.686 [id number] [facility] 2019-03-05 22:28:42 2019-03-05 23:12:00 Emergency Alvin Pace [facility] 1.2.840.114 350.1.13.10 4.2.7.2.686 [id number] [facility] Results Test Description Test Time Test Comments Results Result Co mments Source [facility] W SPECIFIC [id number] 15:29:00* Test Item Value Reference Range Interpretation Comme nts POCT U SP GRAV (test code = 3255) . 1.005-1.025 POCT PH U (test code = 3254) 7 mg/dl 5-8 POCT U LEUK EST (test code = 3263) Neg Negative - Negative POCT U NIT (test code = 3262) Neg Negative - Negati ve POCT U PROT (test code = 3259) Trace Negative - Negat ely POCT U GLU (test code = 3256) Nml Negative - Negati ve POCT U KETONE (test code = 3258) None Negative - Neg ative POCT U UROBILI (test code = 3260) . 0.2-1 POCT U BILI (test code = 3261) . Negative - Negat ely POCT U BLD (test code = 3257) Trace Negative - Negati ve POCT U COLOR (test code = 3266) . POCT U APPEAR (test code = 3267) [facility] URINALYSIS W SPECIFIC [id number] 13:59:00* Test Item Value Reference Range Interpretation Comme nts POCT U SP GRAV (test code = 3255) . 1.005-1.025 POCT PH U (test code = 3254) . 5-8 POCT U LEUK EST (test code = 3263) trace Negative - N egative POCT U NIT (test code = 3262) neg Negative - Negati ve POCT U PROT (test code = 3259) . Negative - Negat ely POCT U GLU (test code = 3256) . Negative - Negati ve POCT U KETONE (test code = 3258) . Negative - Neg ative POCT U UROBILI (test code = 3260) . 0.2-1 POCT U BILI (test code = 3261) . Negative - Negat ely POCT U BLD (test code = 3257) . Negative - Negati ve POCT U COLOR (test code = 3266) . POCT U APPEAR (test code = 3267) . [facility] URINALYSIS W SPECIFIC [id number] 19:51:00* Test Item Value Reference Range Interpretation Comme nts POCT U SP GRAV (test code = 3255) . 1.005-1.025 POCT PH U (test code = 3254) . 5-8 POCT U LEUK EST (test code = 3263) . Negative - N egative POCT U NIT (test code = 3262) . Negative - Negati ve POCT U PROT (test code = 3259) trace Negative - Negat ely POCT U GLU (test code = 3256) neg Negative - Negati ve POCT U KETONE (test code = 3258) . Negative - Neg ative POCT U UROBILI (test code = 3260) . 0.2-1 POCT U BILI (test code = 3261) . Negative - Negat ely POCT U BLD (test code = 3257) . Negative - Negati ve POCT U COLOR (test code = 3266) POCT U APPEAR (test code = 3267) [facility] Urinalysis w/o Specific [id number] 14:37:00* Test Item Value Reference Range Interpretation Comme nts POCT PH U (test code = 3254) 8 mg/dl 5-8 POCT U LEUK EST (test code = 3263) 1+ Negative - Negative POCT U NIT (test code = 3262) POS Negative - Negati ve POCT U PROT (test code = 3259) 1+ Negative - Negat ely POCT U GLU (test code = 3256) Nml Negative - Negati ve POCT U KETONE (test code = 3258) 3+ Negative - Neg ative POCT U BLD (test code = 3257) Neg Negative - Negati ve [facility] [id number] 14:27:00* Test Item Value Reference Range Interpretation Comme nts POCT PREG (test code = 1605) Positive On board controls acceptable with C Line (test code = 3574) Yes POCT PREG LOT # (test code = 3575) POCT PREG TEST DATE ( test code = 3576) [facility]. Metabolic Panel ([id number])2023-11-12 03:59:37* Test Item Value Reference Range Interpretation Comme nts NA (test code = 2693957346) 135 mmol/L 135-145 K (test code = 3927277998) 3.4 mmol/L 3.5-5.0 L CL (test code = 0785455105) 103 mmol/L 98-108 CO2 TOTAL (test code = 6146005734) 27 mmol/L 23-31 AGAP (test code = 9924939531) 5 2-16 BUN (test code = 1283333953) 7 mg/dL 7-23 GLUCOSE (test code = 9620470132) 85 mg/dL 70-110 CREATININE (test code = 2160-0) 0.44 mg/dL 0.50-1.04 L TOTAL BILI (test code = 3597261276) 0.5 mg/dL 0.1-1.1 CALCIUM (test code = 0967805012) 9.2 mg/dL 8.6-10.6 T PROTEIN (test code = 4236480631) 7.2 g/dL 6.3-8.2 ALBUMIN (test code = 3318772146) 4.1 g/dL 3.5-5.0 ALK PHOS (test code = 5040540671) 53 U/L 34-122 ALTv (test code = 1742-6) 11 U/L 5-35 AST(SGOT) (test code = 1069265930) 30 U/L 13-40 eGFR (test code = 46449-0) 140.5 mL/min/1.73m2 CKD-EPI eGFR (2020). Assuming creatinine has been stable day-to-day for at least three months, the eGFR indicates Category G1 (>= 90 mL/min/1.73 m2) Lab Interpretation (test code = 79090-6) [facility]normal [facility] 03:59:17* Test Item Value Reference Range Interpretation Comme nts LIPASE (test code = 5038216056) 83 U/L 0-220 Lab Interpretation (test cod e = 70087-0) Normal [facility] with [id number] 03:46:41* Test Item Value Reference Range Interpretation [...] 34.8 g/dL 31.6-35.1 RDW-SD (test code = 23921-4) 39.0 fL 39.0-49.9 RDW-CV (test code = 788-0) 11.6 % 12.0-15.5 L PLT (test code = 777-3) 219 166-358 MPV (test code = 47489-2) 10.9 fL 9.5-12.9 NRBC/100 WBC (test code = 8355919366) 0.0 0.0-10.0 NRBC x10^3 (test code = 0186365531) See_Comment [Automated messa ge] The system which generated this result transmitted reference range: 10*3/?L. The reference range was not used to interpret this result as normal/abnormal. GRAN MAT (NEUT) % (test code = 770-8) 61.7 % IMM GRAN % (test code = 7572811691) 0.30 % LYMPH % (test code = 736-9) 28.8 % MONO % (test code = 5905-5) 5.9 % EOS % (test code = 713-8) 2.8 % BASO % (test code = 706-2) 0.5 % GRAN MAT x10^3(ANC) (test code = 7649515641) 7.80 10*3/uL 1.88-7.09 H IMM GRAN x10^3 (test code = 2577249948) 0.04 10*3/uL 0.00-0.06 LYMPH x10^3 (test code = 731-0) 3.64 10*3/uL 1.32-3.29 H MONO x10^3 (test code = 742-7) 0.74 10*3/uL 0.33-0.92 EOS x10^3 (test code = 711-2) 0.35 10*3/uL 0.03-0.39 BASO x10^3 (test code = 704-7) 0.06 10*3/uL 0.01-0.07 Lab Interpretation (test code = 69079-9) Abnormal [facility]ennialThyroid Stimulating [id number] 19:13:57 * Test Item Value Reference Range Interpretation Comme nts TSH (test code = 4068463701) 1.49 0.45-4.70 Lab Interpretation (test cod e = 65558-9) Normal [facility] BHCG (QUANTITATIVE)2023-10-24 19:13:26* Test Item Value Reference Range Interpretation Comme nts BETA HCG (test code = 7800112494) 656.79 See_Comment [Automated [employer] The system which generated this result transmitted reference range: Non- female and male patients: <5 mIU/mL. The reference range was not used to interpret this result as normal/abnormal. VICENTE (test code = VICENTE) Gestational Age ?Range (mIU/mL) 1-10 ?Weeks ?[id number] Weeks ?89239-80341807-43 Weeks ?0933-79615074-66 Weeks ?0161-125081 Biotin has been reported to cause a negative bias, interpret results relative to patient's use of biotin. [facility]. Metabolic Panel (17126)2023-10-24 18:43:10* Test Item Value Reference Range Interpretation Comme nts NA (test code = 9905416627) 138 mmol/L 135-145 K (test code = 5970786832) 4.1 mmol/L 3.5-5.0 CL (test code = 8311566156) 105 mmol/L 98-108 CO2 TOTAL (test code = 2609157129) 26 mmol/L 23-31 AGAP (test code = 7927241709) 7 2-16 BUN (test code = 8902851996) 11 mg/dL 7-23 GLUCOSE (test code = 2696121922) 100 mg/dL 70-110 CREATININE (test code = 2160-0) 0.55 mg/dL 0.50-1.04 TOTAL BILI (test code = 3454242689) 1.1 mg/dL 0.1-1.1 CALCIUM (test code = 7984398551) 9.1 mg/dL 8.6-10.6 T PROTEIN (test code = 8654765688) 7.5 g/dL 6.3-8.2 ALBUMIN (test code = 9767975867) 4.4 g/dL 3.5-5.0 ALK PHOS (test code = 8914585834) 58 U/L 34-122 ALTv (test code = 1742-6) 16 U/L 5-35 AST(SGOT) (test code = 3776083726) 25 U/L 13-40 eGFR (test code = 37546-3) 133.1 mL/min/1.73m2 CKD-EPI eGFR (20 21). Assuming creatinine has been stable day-to-day for at least three months, the eGFR indicates Category G1 (>= 90 mL/min/1.73 m2) [facility] with [id number] 18:30:51* Test Item Value Reference Range Interpretation [...] 34.5 g/dL 31.6-35.1 RDW-SD (test code = 40664-3) 40.6 fL 39.0-49.9 RDW-CV (test code = 788-0) 11.9 % 12.0-15.5 L PLT (test code = 777-3) 230 166-358 MPV (test code = 89507-0) 10.7 fL 9.5-12.9 NRBC/100 WBC (test code = 7368394142) 0.0 0.0-10.0 NRBC x10^3 (test code = 7659895818) See_Comment [Automated messa ge] The system which generated this result transmitted reference range: 10*3/?L. The reference range was not used to interpret this result as normal/abnormal. GRAN MAT (NEUT) % (test code = 770-8) 64.9 % IMM GRAN % (test code = 7427947772) 0.30 % LYMPH % (test code = 736-9) 25.7 % MONO % (test code = 5905-5) 6.0 % EOS % (test code = 713-8) 2.5 % BASO % (test code = 706-2) 0.6 % GRAN MAT x10^3(ANC) (test code = 0463958329) 6.11 10*3/uL 1.88-7.09 IMM GRAN x10^3 (test code = 5938276912) 0.03 10*3/uL 0.00-0.06 LYMPH x10^3 (test code = 731-0) 2.43 10*3/uL 1.32-3.29 MONO x10^3 (test code = 742-7) 0.57 10*3/uL 0.33-0.92 EOS x10^3 (test code = 711-2) 0.24 10*3/uL 0.03-0.39 BASO x10^3 (test code = 704-7) 0.06 10*3/uL 0.01-0.07 Lab Interpretation (test code = 12636-3) Abnormal [facility] and Screen - ONCE [id number] 18:27:00 * Test Item Value Reference Range Interpretation Comme nts ABO & RH (test code = 20) O POSITIVE IAT (test code = 1185) Negative [facility] [id number] 15:42:00* Test Item Value Reference Range Interpretation Comme nts POCT PREG (test code = 1605) Negative On board controls acceptable with C Line (test code = 3574) Yes POCT PREG LOT # (test code = 3575) 446370 POCT PREG TEST DATE ( test code = 3576) 2024-08-14 Lab Interpretation (test cod e = 13599-4) Normal [facility] [id number] 16:00:00* Test Item Value Reference Range Interpretation Comme nts POCT PREG (test code = 1605) Negative On board controls acceptable with C Line (test code = 3574) Yes POCT PREG LOT # (test code = 3575) POCT PREG TEST DATE ( test code = 3576) [facility] [id number] 16:00:00* Test Item Value Reference Range Interpretation Comme nts POCT PREG (test code = 1605) Negative On board controls acceptable with C Line (test code = 3574) Yes POCT PREG LOT # (test code = 3575) POCT PREG TEST DATE ( test code = 3576) [facility] URINALYSIS W SPECIFIC [id number] 15:11:00* Test Item Value Reference Range Interpretation Comme nts POCT U SP GRAV (test code = 5) 1.005 mg/dl 1.005-1.025 POCT PH U (test [...] clear Lab Interpretation (test cod e = 34572-7) Abnormal [facility] URINALYSIS W SPECIFIC [id number] 15:11:00* Test Item Value Reference Range Interpretation Comme nts POCT U SP GRAV (test code = 5) 1.005 mg/dl 1.005-1.025 POCT PH U (test [...] clear Lab Interpretation (test cod e = 80049-7) Abnormal [facility] [id number] 15:09:00* Test Item Value Reference Range Interpretation Comme nts POCT PREG (test code = 1605) Negative On board controls acceptable with C Line (test code = 3574) Yes POCT PREG LOT # (test code = 3575) POCT PREG TEST DATE ( test code = 3576) [facility] [id number] 15:09:00* Test Item Value Reference Range Interpretation Comme nts POCT PREG (test code = 1605) Negative On board controls acceptable with C Line (test code = 3574) Yes POCT PREG LOT # (test code = 3575) POCT PREG TEST DATE ( test code = 3576) [facility]ennial[facility]YROID STIMULATING [id number] 02:02:22 * Test Item Value Reference Range Interpretation Comme nts TSH (test code = 5066039881) 2.26 See_Comment [Automated messa ge] The system which generated this result transmitted reference range: 0.45 - 4.70 mIU/L. The reference range was not used to interpret this result as normal/abnormal. Lab Interpretation (test code = 12167-9) Normal [facility]. METABOLIC PANEL (54291)2022-12-28 01:32:39* Test Item Value Reference Range Interpretation Comme nts NA (test code = 1503819226) 139 mmol/L 135-145 K (test code = 9769219003) 3.4 mmol/L 3.5-5.0 L CL (test code = 9242849059) 103 mmol/L 98-108 CO2 TOTAL (test code = 0472058937) 24 mmol/L 23-31 AGAP (test code = 4369131525) 12 2-16 BUN (test code = 9082380255) 8 mg/dL 7-23 GLUCOSE (test code = 8494689506) 121 mg/dL 70-110 H CREATININE (test code = 5217429221) 0.57 mg/dL 0.50-1.04 TOTAL BILI (test code = 3360090326) 1.0 mg/dL 0.1-1.1 CALCIUM (test code = 4595258412) 9.2 mg/dL 8.6-10.6 T PROTEIN (test code = 6579123070) 6.9 g/dL 6.3-8.2 ALBUMIN (test code = 1635473812) 4.4 g/dL 3.5-5.0 ALK PHOS (test code = 1328104262) 47 U/L 34-122 ALTv (test code = 1742-6) 16 U/L 5-35 AST(SGOT) (test code = 8247418965) 22 U/L 13-40 eGFR (test code = 8473786203) 133.9 mL/min/1.73m2 VICENTE (test code = VICENTE) [...] imaging tests). Lab Interpretation (test code = 86345-2) [facility]normal [facility] 01:32:19* Test Item Value Reference Range Interpretation Comme nts LIPASE (test code = 7938945313) 67 U/L 0-220 Lab Interpretation (test cod e = 34248-6) Normal [facility] WITH [id number] 01:20:58* Test Item Value Reference Range Interpretation Comme nts WBC (test code = 6690-2) 9.89 See_Comment [Automated messa ge] The system which [...] 34.2 g/dL 31.6-35.1 RDW-SD (test code = 26062-0) 38.2 fL 39.0-49.9 L RDW-CV (test code = 788-0) 11.9 % 12.0-15.5 L PLT (test code = 777-3) 177 See_Comment [Automated messa ge] The system which generated this result transmitted reference range: 166 - 358 10*3/?L. The reference range was not used to interpret this result as normal/abnormal. MPV (test code = 79786-7) 11.6 fL 9.5-12.9 NRBC/100 WBC (test code = 0985476624) 0.0 See_Comment [Automated NPTV ssage] The system which generated this result transmitted reference range: 0.0 - 10.0 /100 WBCs. The reference range was not used to interpret this result as normal/abnormal. NRBC x10^3 (test code = 4279147491) See_Comment [Automated messa ge] The system which generated this result transmitted reference range: 10*3/?L. The reference range was not used to interpret this result as normal/abnormal. GRAN MAT (NEUT) % (test code = 770-8) 64.1 % IMM GRAN % (test code = 5418339420) 0.30 % LYMPH % (test code = 736-9) 28.1 % MONO % (test code = 5905-5) 5.8 % EOS % (test code = 713-8) 1.3 % BASO % (test code = 706-2) 0.4 % GRAN MAT x10^3(ANC) (test code = 3687980957) 6.34 10*3/uL 1.88-7.09 IMM GRAN x10^3 (test code = 1139635194) 0.03 10*3/uL 0.00-0.06 LYMPH x10^3 (test code = 731-0) 2.78 10*3/uL 1.32-3.29 MONO x10^3 (test code = 742-7) 0.57 10*3/uL 0.33-0.92 EOS x10^3 (test code = 711-2) 0.13 10*3/uL 0.03-0.39 BASO x10^3 (test code = 704-7) 0.04 10*3/uL 0.01-0.07 Lab Interpretation (test code = 78679-6) Abnormal [facility] ZYFX8827-49-32 01:05:00* Test Item Value Reference Range Interpretation Comme nts POCT PREG (test code = 1605) Negative On board controls acceptable with C Line (test code = 3574) Yes POCT PREG LOT # (test code = 3575) [id number] POCT PREG TEST DATE ( test code = 3576) 2024-03-19 Lab Interpretation (test cod e = 99556-9) Normal [facility] HWDX7230-86-61 15:47:00* Test Item Value Reference Range Interpretation Comme nts POCT PREG (test code = 1605) Negative On board controls acceptable with C Line (test code = 3574) Yes POCT PREG LOT # (test code = 3575) POCT PREG TEST DATE ( test code = 3576) [facility] 15:47:00* Test Item Value Reference Range Interpretation Comme nts POCT PREG (test code = 1605) Negative On board controls acceptable with C Line (test code = 3574) Yes POCT PREG LOT # (test code = 3575) POCT PREG TEST DATE ( test code = 3576) [facility] Notes Date/Time Note Provider Source 2023-12-31 16:06:43 JRYqnSfi5CRia0g+YE20 8mq4K/C4/vphV9 aEv6T0NPIAHLWMliInGR5K1LkDNrOD9904 -05-21T16:06:43 Called pt, discussed lab results and poc. Pt verbalized understanding.Ethel Peterson RN 12/31/23 4:07 PM 46920-7Svoyifocz encounter BlhgJI7660-84-42N43:07:58Telephone encounter NoteTXT1.2.840.411005.1.13.104.2.7 .2.107360|5293616846LEGulmjsgfm for patient ievs66642-2FmuvCAEYNDMXSCILrybgwiz d C-CDA narrative textUT[address] IzspXwqopwrchKrugpvwwnXHBG87749991 04OGWIBDPDJFTPXWTSIFJSGB2621-48-83 T16:07:581.2.840.601322.1.72.3.15| 1.2.840.259390.1.13.104.2.7.2.7278 79_[id number] [facility] 2023-12-31 15:56:38 hWRvR+V/fWOdv0peAAoJ Sg2isWLuIEJ24N 9oHaYH+TS199Xj6jQO6adFdT2u8sre4763 -05-21T15:56:38 Called pt, no answer. Left vm.Ethel Peterson RN 12/31/23 3:56 PM 33073-4Gmejhgsus encounter AnmcAR9980-28-34G24:56:48Telephone encounter NoteTXT1.2.840.426296.1.13.104.2.7 .2.803023|5993243509UCZzmtoomts for patient ddpn67919-5RffyFPUFGYKLPMXKailnywk d C-CDA narrative Memrise[id number] 14QVKYZNNUOTBDBVGTOTDPAF3197-87-20 T15:56:481.2.840.347755.1.72.3.15| 1.2.840.406347.1.13.104.2.7.2.7278 79_[id number] [facility] 2023-12-31 15:56:07 JvtO4oN0bgkMbAnoKaDp 2oRf2EWouvbQpu pvrgslUIOwDhxsyODpwW5bltWseWSl1483 -05-21T15:56:07 Duplicate encounter.Ethel Peterson RN 12/31/23 3:56 PM 24549-6Ucbxygera encounter HqcoHM3056-45-29I27:56:17Telephone encounter NoteTXT1.2.840.255358.1.13.104.2.7 .2.802630|7123802261KKCrhpoieam for patient mnds03103-1BvemFZKBUDKEAFRNhoqintg d C-CDA narrative [id number] 13WBBVUHBYIMHVEDYPWLFCRE6667-82-20 T15:56:171.2.840.339718.1.72.3.15| 1.2.840.356125.1.13.104.2.7.2.7278 79_[id number] [facility] 2023-12-31 13:42:57 6p547/GWnmxKNcZESL92 WRnrmns8siWywn fQWglaZxnBVmwXSdU94ByuPAv2WfEv0866 -05-21T13:42:57 Results call 30252-8Atzgsdpyl encounter VbgpRI1634-98-12O46:43:39Telephone encounter NoteTXT1.2.840.318627.1.13.104.2.7 .2.069911|3090218927CUZtqbslhjw for patient fqjz62365-1SqmqBQIXZDVDAAGRyyjchuv d C-CDA narrative ejdn104545001Unqfam [address]vd[address] 42ZROSZTDYKECPKHTPMBFXYL6838-90-69 T13:43:391.2.840.022349.1.72.3.15| 1.2.840.367265.1.13.104.2.7.2.7278 79_[id number] Adnriy Godinez [facility] 2023-12-31 13:37:52 v+zIgHPm+/xBVD1kQbkb b2IquCPyGpxhdV +ujXa2liJfoTFr/O85SbTNEWsjbrqX6295 -05-21T13:37:52 Please advise pt her beta is trending up, heart tones was ausculted on her last visit, her hepatic function labs are wnl. Please advise her on good moisturizing body cream, ie anni butter, Eucerin cream, aveeno creamDamilola C Akinsipe, WHCNP 12/31/2023 1:40 PM 78423-1Minffimyb encounter SpnpJR8942-54-04A19:41:30Telephone encounter NoteTXT1.2.840.484334.1.13.104.2.7 .2.426512|3985368268MLHphnqeqvx for patient yuwf38716-1TlceHLJKJPCJZDUAxtghqqj d C-CDA narrative [address] 63KYNEDYUPPTSARPFXPUTBUV7273-18-22 T13:41:301.2.840.093019.1.72.3.15| 1.2.840.468245.1.13.104.2.7.2.7278 79_[id number] [facility] 2023-12-25 15:44:45 wgvmTANl7oWoR2hRM7gb PQJc8QwTYoqeBg 9AkbF4Nrm//sE6DyBjP9cxXAKYbYL19728 -05-15T15:44:45 Consult/referral placedSHONA Gillis 12/25/2023 3:44 PM 47459-3Fjtorilgk encounter CyenET6290-14-23O67:45:03Telephone encounter NoteTXT1.2.840.887141.1.13.104.2.7 .2.261263|7264877515QHOvrsgrknj for patient yvfs59059-1ZjbsZXKJXUJCJOKHzgtukcw d C-CDA narrative [address] 53CLXPFKDTWEKPDKYCGXOTXE8700-18-45 T15:45:031.2.840.429725.1.72.3.15| 1.2.840.030729.1.13.104.2.7.2.7278 79_[id number] [facility] 2023-12-25 11:31:55 zNU2mz0FSL6XDH4nkBTE bJiPojHPcquqL2 Qql6K5Tl1H424nAo/Gx0c+HMfMftt35856 -05-15T11:31:55 Called pt, pt having depression in the . Pt has been evaluated by provider and now desires medications. Routed to provider for poc.Ethel Peterson RN 12/25/23 11:33 AM 95221-9Nlngoesqn encounter UezaOT7990-93-38U97:34:58Telephone encounter NoteTXT1.2.840.994064.1.13.104.2.7 .2.868619|4199335538AHRwejqwhcv for patient qcdo35857-3GeybOSRYZBYJUHJBjkiisep d C-CDA narrative text[address] 78ZONZGHGQCXAIATRKLVVAWK2385-22-53 T11:34:581.2.840.149171.1.72.3.15| 1.2.840.772065.1.13.104.2.7.2.7278 79_[id number] [facility] 2023-12-25 11:13:22 AHEa1+9NVbYIj0y3I3hi sZSRRNQK2eDNt+ +uzpiCZ2RpvJ/YCVCbPa7lbU7aEqVe2139 -05-15T11:13:22 Copied from [facility] #[id number]. Topic: Clinical - Medical Advice>> December 25, 2023 11:10 AM Patient System Engineer wrote:Maylin Duncan Zuniga is a 23 year old femalePt wants to know if she can be prescribed antidepressants. Pt was on VENLAFAXINE XR 37.5 mg and wants to know if that is safe to take while Please call pt at [phone] (home)[facility]/pharmacy #[id number] [place], [place] - [facility] [address] [facility] [address] STREETPhone: Fktblqsgjuaswf signed by Eugenie Ngo at 12/25/2023 11:15 AM IZJ07486-4Vvperztrd encounter PygnVI0440-52-10T35:15:19Telephone encounter NoteTXT1.2.840.913270.1.13.104.2.7 .2.396452|0549192231JPZlzghufyk for patient vwei44197-7UxtxJQFAMQGOVDLZlmrhbca d C-CDA narrative cwkn416156621Egaz A [address] JulhN[id number] 87TUGJEDLWFWILADLZZUUTDO6169-49-69 T11:15:191.2.840.294063.1.72.3.15| 1.2.840.154756.1.13.104.2.7.2.7278 79[facility][id number] [facility] 16:21:49 2n9W9LIIDa5naQ8nfLou sPUsRh5dbk290x RyaX5KZ6Gha2KVPPJZ8uEik6C5ey3Y7449 -04-17T16:21:49 Called pt, discussed pap results and POC. Pt verbalized understanding.Ethel Peterson RN 11/27/23 4:21 PM 10422-7Ugqsxnrqi encounter MhoiDI5728-86-69R33:24:37Telephone encounter NoteTXT1.2.840.201926.1.13.104.2.7 .2.287122|8002123630ESVxmxnlcid for patient pfns23811-0QuwlOKAROAGXVMJDfwdjeof d C-CDA narrative text[address]TXTX[address] 31LHZLTBIQHYYUDCMWLVHQUN2382-13-12 T16:24:371.2.840.255575.1.72.3.15| 1.2.840.869011.1.13.104.2.7.2.7278 79_[id number] [facility] 2023-11-27 16:17:08 xZiY700QLg0dkLhoM6Av EMh/LhPBqt2QKz V6cK7yHohAxT0FpqDGbVFYm+DG1vHR4827 -04-17T16:17:08 Copied from [facility] #[id number]. Topic: Customer Service - Missed Call from Provider>> Nov 27, 2023 4:16 PM Patient System Engineer wrote:Patient returned missed call from nurse 00035-4Ftnqnuwct encounter EtwbQV9737-02-38G54:17:32Telephone encounter NoteTXT1.2.840.353941.1.13.104.2.7 .2.084462|6595425132MWJuunoipyx for patient tbxo38421-3HhmoRCGIULUSBJOFhgnhpaq d C-CDA narrative zxsf314465745Lowzjesvn L [address]TXTX[address] 53SRRSHSJIIRBFBZCPQTDZUA9229-99-38 T16:17:321.2.840.313403.1.72.3.15| 1.2.840.398946.1.13.104.2.7.2.7278 79_[id number] [facility] 16:02:18 pPN3ZKyu84i4J+j1A1hp QZzWLPnzY+[facility] Db0kwqyL2j0j4apz/srsKee5gMp1d73254 -04-17T16:02:18 Called pt, no answer. Left vm.Ethel Peterson RN 11/27/23 4:02 PM 50102-9Zycsreaal encounter UqczPP3256-51-34B43:02:34Telephone encounter NoteTXT1.2.840.065146.1.13.104.2.7 .2.238174|4309934792YNMgshsgric for patient rddu98950-8BqwvXVDCXLMVAAFHtmmlpuu d C-CDA narrative textUT40 May StreetGieiWacpyfxeaVrrmcshehCDGA02619011 82BZAMEQGOVBGUDRGMGEGRGK6735-93-32 T16:02:341.2.840.198290.1.72.3.15| 1.2.840.992648.1.13.104.2.7.2.7278 79_[id number] [facility] 2023-11-27 15:55:44 M1extsY//tMmpPluGybF Pfg08DHUE4XiIL GlYfwDilKn6LEz0DwH7ZxIFPYPP1MI7618 -04-17T15:55:44 LGSIL pap will need repeat pap in 1 yearSHONA Gillis 11/27/2023 3:56 PM 47630-6Pvocchphs encounter CcflPX1848-82-39Q05:56:34Telephone encounter NoteTXT1.2.840.571017.1.13.104.2.7 .2.131744|8647514246SBQbgvupxfe for patient hjdh82008-7VceaYSFKMNILHRPKtfqexhh d C-CDA narrative text[address]TXTX[address] 52OBGVPNSDDMJVXHPLOFDGQE2060-12-53 T15:56:341.2.840.635556.1.72.3.15| 1.2.840.263284.1.13.104.2.7.2.7278 79_[id number] [facility] 2023-11-15 14:57:53 R+PD0uDdt3gXzI+F6Me4 0zyrUFwJaEYbVg Aka25MdF9cRSFPYcNXOuV+CxDpQwDo2707 -04-05T14:57:53 Called pt, discussed lab results. Pt signed ROR for usg, advised provider will FU with poc once she receives the report. Pt verbalized understanding.Ethel Peterson RN 11/15/23 2:58 PM 50667-9Cggyyhsrz encounter YvngGH9884-72-34X30:58:44Telephone encounter NoteTXT1.2.840.199620.1.13.104.2.7 .2.769889|0652378822EOXoqzcvlsu for patient fmxc45200-9LucqWWWHNNTYURMCddrulch d C-CDA narrative text[address]TXTX[address] 55HGAFYTTNMJQEBKHRRUEPRN4077-54-66 T14:58:441.2.840.184737.1.72.3.15| 1.2.840.730532.1.13.104.2.7.2.7278 79_[id number] [facility] 2023-11-15 11:31:30 9mQ758GX8PkX5BmDVTC2 sELysPomF3sbz9 q1sy3NndyBcMatYI0trJsoxanSVNqS3426 -04-05T11:31:30 Maylin Zuniga is a 23 year old femalePt is calling to notify provider that she has ovarian cyst results received from her previous provider and pt is requesting to discuss most recent lab results. Pt is 8wks . Please contact pt at [phone]. 88352-1Oyegmrxki encounter RonlLU6159-97-90U68:32:40Telephone encounter NoteTXT1.2.840.324544.1.13.104.2.7 .2.036781|4373605394URLkiqqllzd for patient addh94728-8AzxjMHORLBUXZFVYxusaaxd d C-CDA narrative lxpi56115985Nstdel [address] WkvxYuvaddhcaPhwxaxijqXZVH91396960 96FLTBVOQHPSVILZVIKFIBPT5448-30-76 T11:32:401.2.840.902384.1.72.3.15| 1.2.840.050788.1.13.104.2.7.2.7278 79_[id number] Hector Carver [facility] 2023-11-11 23:49:53 V560ZEBZbJ4A1p4zf2f5 DaAoKiAXGD9c+o CNd089T9mabRXoQKePbm/3ugqFgpIt4719 -04-01T23:49:53 Pt given printed and verbal discharge [...] with steady gait, in no apparent distress 97566-6Oeaoccpbw department YtqkIL5951-78-70V15:50:38[facility] NoteTXT1.2.840.497499.1.13.104.2.7 .2.206892|3097696600WUVuzfdjzzj for patient rlwy29520-4ZnuoMMMGXRGJWYGCfmuivvn d C-CDA narrative bpkg972887075Gbjvcyq A Diaz RN[address] FfazIcwvoibmrKsgeokyrfMRMO02905888 85KPZOKEFIQFCXLEZBLJUOGU6936-76-62 T23:50:381.2.840.529391.1.72.3.15| 1.2.840.751294.1.13.104.2.7.2.7278 79_[id number] Keli Banks [facility] 2023-11-11 23:24:06 hCDMaVSD/02R64JtsRPs NsUgq4uhhCxkVv KQ5PM3NKYbgmOcu96Gu9vq8s6TVjkd8638 -04-01T23:24:06 Ice chips given 56170-0Hlzvbjfzy department GivgHR5695-53-93U61:24:17[facility] NoteTXT1.2.840.912468.1.13.104.2.7 .2.815158|3282286558YTUntkctepa for patient zlkq45139-2GqwmJUGPDCNDOHZYhkkowho d C-CDA narrative ptxr546294939Xyvsq A. Campbell RN[address] VhpfEzpedxyyvYtxcjcyuzMHDI45895858 57LYIOISWCBDHFJYPYEBLWLI6557-07-55 T23:24:171.2.840.580384.1.72.3.15| 1.2.840.390520.1.13.104.2.7.2.7278 79_[id number] Anabela Carson RN [facility] 2023-11-11 22:30:00 /wf68h+DipYhm/Ildx/W apQouxVgLm/wSF rjQsswQ5kszV1Y/VTNnqYP+SwG4Jlt0734 -04-01T22:30:00 Ice chips given 84130-2Ayrzslfbd department NvdnIE8947-24-06U31:44:11[facility] NoteTXT1.2.840.874866.1.13.104.2.7 .2.448047|9163733364OUMxdhpygjs for patient eury96136-7LulxXJRWAQKDZCGBttxhczo d C-CDA narrative textUT[address] ConwXeauxgirmMwkrvxmhdIIOB55461932 43GLYXNUQZPJIKPONBQXIJIQ0824-58-20 T22:44:111.2.840.267330.1.72.3.15| 1.2.840.043563.1.13.104.2.7.2.7278 79_[id number] [facility] 2023-11-11 21:43:20 gwvVKEwyIOFEDY8WTbdi QiTVt2zERdXmo9 fwI5RnDLfsVv8QOTtmmqK7i1qEPGIg9108 -04-01T21:43:20 CC: Pt reports "I can't keep anything down" She ran out of zofran and is using preggie pops? Pt is 7 wks Awake, alert, oriented, resp reg unlabored, skin warm, color appropriate for race, moves all ext without difficulty, amb with steady gait 34445-9Jtzyityiv department Triage cxvrIZ2897-54-99O29:44:20[facility] Triage noteTXT1.2.840.653154.1.13.104.2.7 .2.391373|0106363448BEQrzlykeox for patient kijb60109-9Evhddpaja department NoteLNNARRATIVEFormatted C-CDA narrative tjod982254539Oqrhgn R Megan [address] 52BTVFWERPHUCKVGTKHDTPYO3405-02-81 T21:44:201.2.840.891642.1.72.3.15| 1.2.840.920023.1.13.104.2.7.2.7278 79_[id number] Alisia Correadeh [facility] 2023-11-01 15:42:51 0FPE/jl/8tjVAO4nbf53 9tLmxDQpKAKHXl 74LJY+XKhVDTfndbpabmXQ2r4F+mHG3151T15:42:51 Maylin Zuniga is a 23 year old femalePt is calling requesting to speak with Rajwinder at clinic to continue conversation regarding insurance questions. Pt connected w/ clinic Pss. 08514-2Idtjwrswg encounter EotxKD6375-07-74U26:43:27Telephone encounter NoteTXT1.2.840.970650.1.13.104.2.7 .2.683742|4878612468RPFsqjmzidu for patient ssgc63837-5DgjePORXEXJIKCDNeoqgpph d C-CDA narrative jmfe85165687Ooregx Manzo[address]TXTX[address] 53GOVFTQADSNCYIUJGLOTVGO4179-79-27 T15:43:271.2.840.782560.1.72.3.15| 1.2.840.667748.1.13.104.2.7.2.7278 79_[id number] Hector Carver [facility] 2023-10-24 16:52:17 y2bHMfSbNSFdgWC3YgAF /hxNLosVlLxGig +ombW0kQNIstw8yX9/a+kF4nH6REJj8232 -03-14T16:52:17 Patient states that she is tired and hungry and is ready to leave. States "I just had the trans vag but I don't want to wait for the results, she said it would be an hour. My levels looked Ok so I'm just going to leave". AMA form signed, IV removed and patient left the department. 21958-3Xhygxfzux department XrkwAU7107-29-32G55:53:11[facility] NoteTXT1.2.840.393129.1.13.104.2.7 .2.625745|6469927483IJGuppzhlcf for patient llmo84153-4OpbgMENMFCGEUNODuvcvoeb d C-CDA narrative text[address] FztfSawigtbxwHuvxjxjbzTXWE17434478 18VIEFAHHQPWXEZTRIZTJZWF1498-96-11 T16:53:111.2.840.853414.1.72.3.15| 1.2.840.108415.1.13.104.2.7.2.7278 79_[id number] [facility] 2023-10-24 15:47:36 /60RDKVWMMQkc0961SJd H6Vomjv5CSUHiU xAuS0wMWc4dW9z2aQihil5HUch0sG62376 -03-14T15:47:36 Pt being evaluated in ER at this time. 89540-8Usuakyshx encounter ClbwDZ5058-46-69Z09:47:47Telephone encounter NoteTXT1.2.840.361721.1.13.104.2.7 .2.630600|9421927556MGKythvcitr for patient zmzw82516-3HmkeOCKHHCPXGJMAekwgrxi d C-CDA narrative [id number] Garcia [address] 31UHQWOEEZNEBNZXJICCZSPW6810-25-06 T15:47:471.2.840.991258.1.72.3.15| 1.2.840.111089.1.13.104.2.7.2.7278 79_[id number] Francine Aparicio [facility] 2023-10-24 14:46:48 eBIrhDwov0T4RhV473jr Ld2RVlyqa9hb/A Aw2ySWrHHU+I6TiDchv9eXWDOSCiCC1617 -03-14T14:46:48 Maylin Zuniga is a 23 year old femalePt is calling to speak with a nurse to see if she is ok to take her VENLAFAXINE XR 37.5 mg 24 hr capsule while . Pt has not been taking the medication and is biting skin [place] [address]-9Wtuqchide encounter OgbaTS2094-37-28J00:50:37Telephone encounter NoteTXT1.2.840.111770.1.13.104.2.7 .2.638038|2333552119RZDkbkdrqqo for patient hfou64498-1CemxJDWXIMJUUJZBtwwpcnj d C-CDA narrative oudw132240241Rffipg [address]TXTX[address] 33IRYAJBWSBOPHTFBKQXMYLO3154-51-99 T14:50:371.2.840.778418.1.72.3.15| 1.2.840.952246.1.13.104.2.7.2.7278 79_[id number] Andriy Godinez [facility] 2023-10-24 11:37:27 jYaRR7742Sq+GBtBEQj6 I0w92GwsdJzXia eAjJYQIV9XNwEWskYVysxqWFrG4N408119 -03-14T11:37:27 Patient reports being 6 weeks and began cramping this AM with no discharge. Patient has not had first appointment yet with OB which is scheduled for the . V4Miipjrnoqsipjs signed by Manda Harrell, RN at 10/24/2023 11:38 AM CMJ37837-1Jlxjcuowe department Triage pqzqYE7546-70-72C45:38:44[facility] Triage noteTXT1.2.840.188638.1.13.104.2.7 .2.864146|5345614726YQKgbhdnvyw for patient ixrk89683-6Eigygrpos department NoteLNNARRATIVEFormatted C-CDA narrative [id number] M Hayes RN[address] BmuoWyiroburvYjrtzrralYLZG75264321 62ITJFGOWAPQVEEHNWKFERGG1457-40-47 T11:38:441.2.840.091156.1.72.3.15| 1.2.840.779963.1.13.104.2.7.2.7278 79_[id number] Manda Harrell RN [facility] 2023-08-13 11:31:01 Tvi1OehTBwEcH/OedFFe machine whitener+nQ4BLbyUGpo f1mKqhrXCkybmFD61ukj0nuIndrCVA4482 -01-02T11:31:01 Maylin Zuniga is a 23 year old femaleovarian cysts on one or two ovaries x AprilPatient called to schedule appt with PGY.Please contact pt at [phone] (home) 50333-6Kkmtujrqs encounter IwccZR7607-26-71M33:31:38Telephone encounter NoteTXT1.2.840.113555.1.13.104.2.7 .2.667221|9622765798YIKhnbnwmxt for patient gypq31865-5CshzIPVLFMGSZNIPfnfcosp d C-CDA narrative avcc034732267Evsuzsyig L [address] 62UJBEUATSBYJSIWSDZTYBTE1728-85-52 T11:31:381.2.840.401746.1.72.3.15| 1.2.840.385489.1.13.104.2.7.2.7278 79_[id number] [facility] 12:05:28 YCwVT0euVvPMxtiSz1Tf Snauq3DhGiz8kt AZLDugaXD5v39sUN7Md3qfYq1JT5pc1578 -09-13T12:05:28 Pt left before obtaining discharge paperwork. 13508-4Zkikzqeny department UoepPB2145-72-91S87:05:42Emergency department NoteTXT1.2.840.949030.1.13.104.2.7 .2.055435|[id number] for patient [id number] Fief [id number] 82FWKPGWONUZOWHZZVPYLJPK2597-92-14 T12:05:421.2.840.495411.1.72.3.15| 1.2.840.993217.1.13.104.2.7.2.7278 [id number] Anne Hall BILLIE [facility] 2023-04-24 10:09:17 BUj2eT6jcuphF6POo6ga z1rRrBXHwBRhGO iG1HXD9jVrBQcXfwuXJRFsSu7xjR2l4558 -09-13T10:09:17 Patient states "I have one positive test and one negative test for . So I just wanted to make sure."Patient here for confirmation. 50959-7Aaeosmebr department Triage cxrqVO7655-00-54Q54:09:58[facility] Triage noteTXT1.2.840.426257.1.13.104.2.7 .2.101121|[id number] for patient ttfs21226-0Xkzxxgnhw department [id number] S Cryer RN[address][id number] 57YYCHXQHBQPPACFPZZBWGVR8830-87-78 T10:09:581.2.840.394572.1.72.3.15| 1.2.840.652406.1.13.104.2.7.2.7278 [id number] Amanda Hoang RN [facility] 2023-04-08 08:38:40 cahNFCb5TToHPvGaepGW lnte3a/1Fxo5Z3 3bFmRyHMqLCwEntkyQV+9x0veYsvIA8840 -08-28T08:38:40 Spoke with patient, verbalized understanding medication is at the pharmacy. 32984-6Jjtjsuelh encounter DwsfJN6624-41-39S21:40:04Telephone encounter NoteTXT1.2.840.518668.1.13.104.2.7 .2.924219|[id number] for patient sjou34657-3RgxiPE454509156Btcaxj L Gavin RN[id number] 61CBLFXNAVPCFLRCYUXHGTSJ2285-68-45 T08:40:041.2.840.904209.1.72.3.15| 1.2.840.225913.1.13.104.2.7.2.7278 [id number] Nora Alonso RN [facility] 2023-04-04 16:31:40 IQkRts1QIWyXn1LFri3G yglWeZaVOQPpGe xMkih24VXAgsaVMqo09WmePUYW2VcS3931 -08-24T16:31:40 I have sent nausea medications to the pharmacyPlease let patient know 89471-9Tsckrvsdz encounter VjbbME0225-02-46H21:32:32Telephone encounter NoteTXT1.2.840.520916.1.13.104.2.7 .2.850859|[id number] for patient wxhg49125-8MpynQVPQAUFFPK[id number] 36TLFXKZNPYRBHALWIBJYQKS0975-54-22 T16:32:321.2.840.136154.1.72.3.15| 1.2.840.052801.1.13.104.2.7.2.7278 [id number] [facility] 2023-04-01 13:30:00 JH3Hf63R0YBPchSI3vH5 OydUVNhzHRozUI re891MaQSc1DoS7YgHiHOC0aFuagfu6933 -08-21T13:30:00 Images from the original note were not included.Venipuncture collection performed by clean technique on the left anticubitus. Total of 1 attempts were made. Slight pressure and a bandage/dressing were applied to the site(s). The patient experienced no complications. The following specimens were processed according to instructions and sent to [facility] laboratories per lab order on 04/01/2023: LT BLUE SST 3 RED LAV 1 PPT DK GREEN (LiHep) DK GREEN (SodH) KRISHNAN DK BLUE (K2) DK BLUE (S) ACD Blood Culture NIPT/NTD 53558-7Vmlcn AxvfOZ1077-40-60P81:37:41Nurse NoteTXT1.2.840.667968.1.13.104.2.7 .2.624731|[id number] for patient gybn88128-1Sdmje NoteUT[address] JixcRamemkpzjLfdtuvazkNGXJ95692259 28MGYGTQCQDVWIGPIOZYAZKZ9735-54-45 T13:37:411.2.840.203336.1.72.3.15| 1.2.840.913617.1.13.104.2.7.2.7278 [id number] [facility] 2023-03-13 14:39:33 56jrNb8yyaaUPoOsqpMU 6ghOU8fWkDxe4v Xyme1NcY8ETi8NAO2A0Bx8BIEeaxrk0738 -08-02T14:39:33 Rx sent, let patient know, and to follow-up as scheduled. 67040-2Nlijoepgg encounter RdzuKB4101-25-02R21:39:33Telephone encounter NoteTXT1.2.840.043230.1.13.104.2.7 .2.706637|[id number] for patient xete29542-4OxyoZYHICUJJNK[id number] 97LNYOHKDOJVACHYYQEWBBNV0534-40-73 T14:39:331.2.840.206370.1.72.3.15| 1.2.840.291437.1.13.104.2.7.2.7278 [id number] [facility] 2023-03-11 08:25:31 m8sRgiKcUn5EbnC1KSf+ MvH4RgMr3kKGna 6h4HoI5VqOSUYt1y1NMe4QUf9qG+ue1070T08:25:31 NICOLE 02/14/23NOV 03/14/23LRD 02/14/23Routing to correct pool 64004-3Mphzooypl encounter SttcGB2858-13-39G13:26:31Telephone encounter NoteTXT1.2.840.449143.1.13.104.2.7 .2.959112|[id number] for patient crfr91647-7ElkjZCRT-OCLBYVSNZLSX-A SYCHIATRY[id number] 99XNNCGWOQTJZKCEEOOGTRUU6756-19-51 T08:26:311.2.840.833734.1.72.3.15| 1.2.840.392186.1.13.104.2.7.2.7278 [id number] PN-PSYCHIATRY [facility]
[2024-01-07 21:44] LABS: Absolute Eosinophils 0.4 K/uL (0-0.5); Absolute Lymphocytes (CBC) 3.3 K/uL (0.7-4.9); Absolute Monocytes 0.7 K/uL (0.1-1.3); Absolute Neutrophil 6.6 K/uL (1.8-8.0); Basophils % 0.4 % (0-1.3); Eosinophils % 3.4 % (0-4.4); Hematocrit 36.7 % (36.0-45.0); Hemoglobin 12.8 g/dL (12.0-15.0); MCH 32.7 pg (27.0-35.0); MCV 93.5 fL (80-100); MPV 8.1 fL (7.6-11.3); Monocytes % 6.3 % (3.3-12.3); Neutrophils % 59.9 % (41.7-73.7); Platelets 257 thou/uL (152-406); RBC Red Blood Cell Count 3.93 M/uL (3.86-4.86); Red Cell Distribution Width 13.3 % (12.1-15.2)
[2024-01-07 22:02] LABS: Albumin 3.1 g/dL (3.4-5.0); Albumin/Globulin Ratio 0.8 (1.1-1.8); Alkaline Phosphatase 53 U/L (45-117); BUN Blood Urea Nitrogen 7 mg/dL (7-18); Bicarbonate 26 mEq/L (21-32); Bilirubin Total 0.3 mg/dL (0.2-1.0); Globulin 3.7 g/dL (2.3-3.5); Glomerular Filtration Rate 138 ml/min (=/>90); Glucose Level 86 mg/dL (74-106); Lipase 50 U/L (13-75); Protein, Total 6.8 g/dL (6.4-8.2); Sodium Level 134 mEq/L (136-145)
[2024-01-07 22:12] LABS: ALT/SGPT < 14 U/L (13-56); AST/SGOT < 10 U/L (15-37)
--- NOTE | 2024-01-07 22:56 | RAD REPORT ---
EXAM DESCRIPTION: US - OB Limited - 01/07/2024 10:15 pm CLINICAL HISTORY: with abdominal pain COMPARISON: November 18, 2023 FINDINGS: Single live intrauterine in breech presentation. Cervix 4.1 centimeters. Normal amniotic fluid. The placenta is posterior fundal. A circumvallate placenta is present. No subchorionic/retroplacental bleed. Cardiac activity 163 per minute. Femur length 1.8 centimeters 15 weeks 2 days The right and left adnexal unremarkable IMPRESSION: Single live intrauterine in breech presentation Circumvallate placenta. Estimated gestational age 15 weeks 2 days GILMAR 06/28/2024. Appropriate interval growth If a survey is desired it should be performed in approximately 3 weeks
--- NOTE | 2024-01-07 23:10 | EDPHYS ---
Physician Documentation [facility] Name: Maylin Zuniga Age: 23 yrs Sex: Female : 2000 Arrival Date: 01/07/2024 Time: 21:10 Bed DX3 Private MD: ED Physician Alvin Barajas HPI: 01/06 22:05 This 23 yrs old Female presents to ER via Ambulatory with complaints of 16 ec2 weeks , Abdominal Pain. 22:05 Patient arrives today for evaluation of lower abdominal pain. Patient reports that she ec2 is approximately 616 weeks . Patient reports no vaginal bleeding. Patient reports no complaints of nausea or vomiting. Patient primary concern is that she has previous miscarriage and wanted to make sure baby was okay . 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 - Infectious Disease History:: Denies. - Social history:: Smoking status: Patient denies any tobacco usage or history of. ROS: 22:05 Constitutional: as per hpi ec2 Exam: 22:05 Constitutional: GEN: NAD Head: atraumatic Eyes: EOMI Ears: External ears are ec2 normal. CV: regular rate LUNGS: no respiratory distress ABD: non-distended SKIN: no evidence of rashes MSK: no evidence of trauma NEURO: moves all extremities equally Vital Signs: 21:18 BP 127 / 88; Pulse 75; Resp 20; Temp 97.8; Pulse Ox 100% ; Weight 61.23 kg; Height 5 bm8 ft. 4 in. ; Pain 6/10; 23:13 BP 121 / 78; Pulse 73; Resp 18; Temp 98; Pulse Ox 100% ; Pain 0/10; bm8 21:18 Body Mass Index 23.17 (61.23 kg, 162.56 cm) bm8 21:18 Pain Scale: Adult bm8 23:13 Pain Scale: Adult bm8 Cornelio Coma Score: 21:40 Eye Response: spontaneous(4). Motor Response: obeys commands(6). Verbal Response: bm8 oriented(5). Total: 15. 23:13 Eye Response: spontaneous(4). Motor Response: obeys commands(6). Verbal Response: bm8 oriented(5). Total: 15. MDM: 21:22 Patient medically screened. ec2 22:05 Data reviewed: vital signs. ED course: Patient arrives today for evaluation of ec2 abdominal pain. Examination remarkable for well-appearing nontoxic dividual with reassuring vital signs. Will obtain ultrasound to evaluate viability. Differential diagnosis include processes such as miscarriage, normal . Additionally considered other processes such as appendicitis.. 23:08 ED course: CBC is reassuring, no anemia, metabolic profile reassuring. Lipase within ec2 normal ranges. Ultrasound shows live IUP at approximately 15 weeks. Will discharge home and have the patient follow-up expectantly with her application packager. . 23:11 ED course: MDM: Differential diagnosis as documented above in ED course All lab tests ec2 ordered and reviewed as documented above. . 23:13 ED course: Patient does have pending urine, we decided that we will call her with the ec2 results and call in prescription as needed for possible urinary tract infection however patient does not exhibit any urinary complaints.. 01/06 21:27 Order name: CBC with Diff; Complete Time: 23:08 8 01/06 21:27 Order name: CMP; Complete Time: 23:08 8 01/06 21:27 Order name: Lipase; Complete Time: 23:08 bm8 01/06 21:27 Order name: Abo/rh Typing; Complete Time: 02:28 bm8 01/06 22:17 Order name: OB Limited; Complete Time: 23:08 EDMS 01/06 21:27 Order name: IV Saline Lock; Complete Time: 21:39 bm8 01/06 21:27 Order name: Labs collected and sent; Complete Time: 21:39 bm8 Administered Medications: No medications were administered Disposition Summary: 01/07/24 23:09 Discharge Ordered Notes: Location: Home ec2 Condition: Stable ec2 Diagnosis - Lower abdominal pain, unspecified ec2 Followup: ec2 - With: Private Physician - When: - Reason: Re-evaluation by your physician Discharge Instructions: - Discharge Summary Sheet ec2 - Second Trimester of , [id number] ec2 Forms: - Medication Reconciliation Form ec2 - Antibiotic Education ec2 - Prescription Opioid Use ec2 - Patient Portal Instructions ec2 - Leadership Thank You Letter ec2 Signatures: Dispatcher [employer] Alvin Caballero MD MD ec2 Gato Leblanc RN RN bm8 Corrections: (The following items were deleted from the chart) 21:22 21:20 PSHx: Unable to Obtain; bm8 bm8 21:27 21:27 CBC+H.LAB.BRZ ordered. EDMS EDMS 21: 21:27 COMPREHENSIVE METABOLIC PANEL+C.LAB.BRZ ordered. EDMS EDMS 21: 21:27 LIPASE+C.LAB.BRZ ordered. EDMS EDMS 21:27 21:27 ABO/RH TYPING+BB.LAB.BRZ ordered. EDMS EDMS 21:41 21:41 Urinalysis W/Microscopic+U.LAB.BRZ ordered. EDMS EDMS 21:41 21:41 Urine Culture+BA.LAB.BRZ ordered. EDMS EDMS 22:17 21:23 Transvaginal Ob+US.RAD.BRZ ordered. EDMS EDMS
--- NOTE | 2024-01-07 23:10 | ER ---
Nurse's Notes [facility] Name: Maylin Zuniga Age: 23 yrs Sex: Female : 2000 Arrival Date: 01/07/2024 Time: 21:10 Bed DX3 Private MD: Diagnosis: Lower abdominal pain, unspecified Presentation: 01/06 21:18 Chief complaint: Patient states: i have right side lower abd pain that began tonight bm8 around 1700. I took tylenol but its not really helping. Coronavirus screen: Vaccine status: Patient reports receiving the 2nd dose of the covid vaccine. Ebola Screen: Patient negative for fever greater than or equal to 101.5 degrees Fahrenheit, and additional compatible Ebola Virus Disease symptoms Patient denies exposure to infectious person. Patient denies travel to an Ebola-affected area in the 21 days before illness onset. No symptoms or risks identified at this time. Initial Sepsis Screen: Does the patient meet any 2 criteria? No. Patient's initial sepsis screen is negative. Does the patient have a suspected source of infection? No. Patient's initial sepsis screen is negative. Risk Assessment: Do you want to hurt yourself or someone else? Patient reports no desire to harm self or others. Onset of symptoms was January 07, 2024 at 17:00. Care prior to arrival: Medication(s) given: Tylenol, 650 mg \T\ [id number]. 21:18 Method Of Arrival: Ambulatory bm8 21:18 Acuity: VINNY 3 bm8 Triage Assessment: 21:20 General: Appears in no apparent distress. uncomfortable, Behavior is calm, cooperative, bm8 appropriate for age. Pain: Denies pain. Complains of pain in right lower quadrant Pain does not radiate. Pain currently is 6 out of 10 on a pain scale. Quality of pain is described as crampy, sharp. EENT: No deficits noted. No signs and/or symptoms were reported regarding the EENT system. Neuro: No deficits noted. Level of Consciousness is awake, alert, obeys commands, Oriented to person, place, time, situation, Appropriate for age. Cardiovascular: Denies chest pain, Capillary refill < 3 seconds Patient's skin is warm and dry. Respiratory: Airway is patent Trachea midline Respiratory effort is even, unlabored, Respiratory pattern is regular, symmetrical, Breath sounds are clear bilaterally. GI: Abdomen is round non-distended, Bowel sounds present X 4 quads. Abdomen is tender to palpation in right lower quadrant Abdomen has rebound tenderness in right lower quadrant. : No deficits noted. No signs and/or symptoms were reported regarding the genitourinary system. Derm: No deficits noted. No signs and/or symptoms reported regarding the dermatologic system. Musculoskeletal: No deficits noted. No signs and/or symptoms reported regarding the musculoskeletal system. 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 - Infectious Disease History:: Denies. - Social history:: Smoking status: Patient denies any tobacco usage or history of. Screenin:40 [facility] ED Fall Risk Assessment (Adult) History of falling in the last 3 months, bm8 including since admission No falls in past 3 months (0 pts) Confusion or Disorientation No (0 pts) Intoxicated or Sedated No (0 pts) Impaired Gait No (0 pts) Mobility Assist Device Used No (0 pt) Altered Elimination No (0 pt) Score/Fall Risk Level 0 - 2 = Low Risk Oriented to surroundings, Maintained a safe environment, Educated pt \T\ family on fall prevention, incl call for assistance when getting out of bed, Assessed \T\ reinforced patient's understanding of fall precautions. Abuse screen: Denies threats or abuse. Nutritional screening: No deficits noted. Tuberculosis screening: No symptoms or risk factors identified. Assessment: 21:40 Reassessment: see triage assessment. bm8 23:13 Reassessment: Patient appears in no apparent distress at this time. Patient and/or bm8 family updated on plan of care and expected duration. Pain level reassessed. Patient is alert, oriented x 3, equal unlabored respirations, skin warm/dry/pink. Patient denies pain at this time. Patient states feeling better. Patient states symptoms have improved. Vital Signs: 21:18 BP 127 / 88; Pulse 75; Resp 20; Temp 97.8; Pulse Ox 100% ; Weight 61.23 kg; Height 5 bm8 ft. 4 in. ; Pain 6/10; 23:13 BP 121 / 78; Pulse 73; Resp 18; Temp 98; Pulse Ox 100% ; Pain 0/10; bm8 21:18 Body Mass Index 23.17 (61.23 kg, 162.56 cm) bm8 21:18 Pain Scale: Adult bm8 23:13 Pain Scale: Adult bm8 Aristes Coma Score: 21:40 Eye Response: spontaneous(4). Motor Response: obeys commands(6). Verbal Response: bm8 oriented(5). Total: 15. 23:13 Eye Response: spontaneous(4). Motor Response: obeys commands(6). Verbal Response: bm8 oriented(5). Total: 15. ED Course: 21:14 Patient arrived in ED. im 21:20 Triage completed. bm8 21:20 Arm band placed on right wrist. bm8 21:22 Alvin Barajas MD is Attending Physician. ec2 21:39 Gato Leblanc, RN is Primary Nurse. bm8 21:40 Patient has correct armband on for positive identification. Bed in low position. Warm bm8 blanket given. Verbal reassurance given. 21:40 No provider procedures requiring assistance completed. Initial lab(s) drawn, by nj, bm8 sent to lab. Urine collected: clean catch specimen, cloudy. Inserted saline lock: 20 gauge in right antecubital area, using aseptic technique. Blood collected. 22:17 OB Limited In Process Unspecified. EDMS 23:13 Provided Education on: POST ER CARE. bm8 23:13 IV discontinued, intact, bleeding controlled, No redness/swelling at site. Pressure bm8 dressing applied. Administered Medications: No medications were administered Medication: 21:40 VIS not applicable for this client. bm8 Outcome: 23:09 Discharge ordered by . ec2 23:13 Discharged to home ambulatory, bm8 23:13 Condition: stable 23:13 Discharge instructions given to patient, Instructed on discharge instructions, follow up and referral plans. medication usage, safety practices, Demonstrated understanding of instructions, follow-up care, medications, 23:15 Patient left the ED. bm8 Signatures: Dispatcher [employer] EDMS Pop, Albina im Barajas, Alvin, MD MD ec2 Gato Leblanc RN RN bm8 Corrections: (The following items were deleted from the chart) :22 21:20 PSHx: Unable to Obtain; bm8 bm8
[2024-01-07 23:44] VITALS: BP 121/78; TEMP 98; O2SAT 100
== END 2024-01-07 23:15 | disposition home or self-care (01) ==
LOC: ER 21:10
DX: O26.892 Other specified pregnancy related conditions, second trimester (principal); O99.342 Other mental disorders complicating pregnancy, second trimester; F32.A Depression, unspecified; Z3A.16 16 weeks gestation of pregnancy
CPT/HCPCS: 36415; 76815; 80053; 83690; 85025; 86900; 86901; 99284

== ENCOUNTER 2024-01-26 07:23 | Emergency (ER) | payer OTHER ==
--- OUTSIDE RECORDS SUMMARY | 2024-01-26 07:33 | XMS REPORT | Continuity of Care Document ---
Author Name Unknown Address [address] [facility] [address] [facility] Address [address] [facility] [address] [place] [address] Care Team Providers Care Log Brander Name Role Phone Robinson Eliza JENNINGS Primary Care Physician + [phone] LESLIE CASTELLANOS Attending Clinician Unavail able DAISY CABELLO Attending Clinician Unavailable Daisy Cabello MD Attending Clinician [phone] DEXTER MCCONNELL Attending Clinician Unavail able Risk, Teb-Icnpf-Qp/High Attending Clinician Unav ailable Dexter Mcconnell NP Attending Clinician RANDI DO Attending Clinician Unavailable Randi Baxter Attending Clinician Leslie Diane Attending Clinician + ERVIN BOWSER Attending Clinician Unav ailable Ultrasound, Ang-Mfm Attending Clinician Unavaila ble Ervin Bowser MD Attending Clinician + Carla Vaughn CNM Attending Clinician [phone] CARLA VAUGHN Attending Clinician Unavaila ARNOLD Aguilar Attending Clinician Unavailable Arnold Blum MD Attending Clinician [phone] Lawson COCHRAN Attending Clinician Unavailable Patricia STEPHENS, Sydney Attending Clinician [phone] Radha_Alfredo Attending Clinician Unavailable NACHO NGUYEN Attending Clinician Unavailable Nacho Nguyen MD Attending Clinician [phone] Pgy3 Attending Clinician Unavailable SYDNEY LUBIN Attending Clinician Unavailable BRUNA ARRINGTON Attending Clinician Unavailable BRUNA ARRINGTON Attending Clinician Unavailable Doctor Unassigned, Wanda Attending Clinician U navailable Pgy2 Attending Clinician Unavailable Trevor TRANSMISSION DESIGN ENGINEER, Gretchen Attending Clinician [phone] ELIZA OLIVIER Attending Clinician Unavailable RAHEL DICKSON Attending Clinician Unavailable Randolph TRANSMISSION DESIGN ENGINEER, Rahel Attending Clinician [phone] Eliza Heller Attending Clinician [phone], [facility] Attending Clinician Unavailable YAW BRO Attending Clinician Unavailable Yaw Bro DO Attending Clinician [phone] [facility]ending Clinician Un available Unknown, Attending Attending Clinician Unavailab le UNKNOWN, ATTENDING Attending Clinician Unavailab BAILEE Vivar Attending Clinician Unavailable [facility], [facility]ending [facility]ician Erica vailable ROSALES CHAPIN Attending Clinician UnavailROSALES Markham Attending Clinician UnavailROSALES Helm Attending Clinician UnavailLinn JENNINGS, Jacob Love Attending Clinician + [phone] JACOB BARRIENTOS Attending Clinician Unavailab le Visit, [facility] Attending Clinician Unava ilable ALIVIA LEE Attending Clinician Unavaila rupa LEONEPAlivia Attending Clinician [phone] CINDY APARICIO Attending Clinician Unavailradha Jones RN, Rayne Godoy Attending Clinician Unavailab NI Mckeon Attending Clinician Unavailable Joel Matt DO Attending Clinician Elena Lara Attending Clinician [phone] Provider, [facility] Attending Clinician Un available ELENA LOPEZ Attending Clinician Unavailable Flecther Ramesh MD Attending Clinician [phone] Frank WISE, Ethel Attending Clinician Erica Alvin Robison Attending Clinician [phone] DAISY CABELLO Admitting Clinician Unavailable Daisy Cabello MD Admitting Clinician [phone] Rajtracie_Alfredo Admitting Clinician Unavailable NACHO NGUYEN Admitting Clinician Unavailable YAW BRO Admitting Clinician Unavailable Payers Payer Name Policy Type Policy Number Effective Date Expirati on Date Source [facility] [id number] 2023 00:00:00 [place] [id number] 2023 00:00:00 [place] [id number] [facility] [id number] 2019 00:00:00 Problems Condition Name Condition Details Condition Category Status Onset Date Resolution Date Last Treatment Date Treating Clinician Comments Source 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 Repeat pap 11/2024 [facility] History of miscarriag e History of miscarriag e Disease Active 4- 00:00: 00 [facility] Nausea/vom iting in Nausea/vom iting in Disease Active 4-04 00:00: 00 [facility] Chlamydia trachomati s infection of lower genitourin jeremy sites Chlamydia trachomati s infection of lower genitourin jeremy sites Disease Active 2-13 00:00: 00 [facility] Need for prophylact ic vaccinatio n and inoculatio n against influenza Need for prophylact ic vaccinatio n and inoculatio n against influenza Disease Active 24 00:00: 00 [facility] Feeling sad Feeling sad Disease Active 12-30 00:00: 00 [facility] Encounter for other general counseling or advice on contracept ion Encounter for other general counseling or advice on contracept ion Disease Active 5 00:00: 00 [facility] Absence of menstruati on Absence of menstruati on Disease Active 11-02 00:00: 00 [facility] Breast tenderness in female Breast tenderness in female Disease Active 11-02 00:00: 00 [facility] Class 1 obesity due to excess calories with serious comorbidit y and body mass index (BMI) of 34.0 to 34.9 in adult Class 1 obesity due to excess calories with serious comorbidit y and body mass index (BMI) of 34.0 to 34.9 in adult Disease Active 11-02 00:00: 00 [facility] BMI 34.0-34.9, adult BMI 34.0-34.9, adult Disease Active 11-02 00:00: 00 [facility] Elevated blood pressure reading without diagnosis of hypertensi on Elevated blood pressure reading without diagnosis of hypertensi on Disease Active 10-02 00:00: 00 [facility] Depression during Depression during Disease Active 08-20 00:00: 00 Overview: Formattin g of this note might be different from the original. Reports stopped meds 10/15/23 reports stable mood [facility] Other depression Other depression Disease Active 08-20 00:00: 00 [facility] Nexplanon removal Nexplanon removal Disease Active 08-20 00:00: 00 [facility] Screening examinatio n for STD (sexually transmitte d disease) Screening examinatio n for STD (sexually transmitte d disease) Disease Active 08-20 00:00: 00 [facility] BMI 27.0-27.9, adult BMI 27.0-27.9, adult Disease Active 2018-08 0-16 00:00: 00 [facility] BMI 29.0-29.9, adult BMI 29.0-29.9, adult Disease Active 2018-08 0-16 00:00: 00 [facility] HPV vaccine counseling HPV vaccine counseling Disease Active 2018-08 0-16 00:00: 00 [facility] Over weight Over weight Disease Active 2018-08 0-16 00:00: 00 [facility] Lump or mass in breast Lump or mass in breast Disease Active 4 00:00: 00 [facility] Allergies, Adverse Reactions, Alerts Allergy Name Allergy Type Status Severity Reaction(s) Onset Date Inactive Date Treating Clinician Comments Source NO KNOWN ALLERGIE S Drug Class Active [facility] Social History Social Habit Start Date Stop Date Quantity Comments Source ASSERTION 2023-10-02 00:00:00 [facility] Alcoholic beverage intake 2024-01-15 00:00:00 2024-01-15 00:00:00 Current drinker of alcohol (finding) [facility] History of Social function 2023-12-10 00:00:00 2023-12-10 00:00:00 [facility] Alcohol intake 2023-12-10 00:00:00 2023-12-10 00:00:00 Current drinker of alcohol (finding) [facility] Exposure to SARS-CoV-2 (event) 2022-12-24 00:00:00 2023-01-03 09:29:00 Not sure [facility] History SDOH Alcohol Frequency 2023-01-01 00:00:00 2023-01-01 00:00:00 1 [facility] History SDOH Alcohol Std Drinks 2023-01-01 00:00:00 2023-01-01 00:00:00 0 [facility] History SDOH Alcohol Binge 2023-01-01 00:00:00 2023-01-01 00:00:00 1 [facility] History SDOH Social Connections Phone 2023-01-01 00:00:00 2023-01-01 00:00:00 4 [facility] History SDOH Social Connections Get Together 2023-01-01 00:00:00 2023-01-01 00:00:00 2 [facility] History SDOH Social Connections Orthodox 2023-01-01 00:00:00 2023-01-01 00:00:00 3 [facility] History SDOH Social Connections Membership 2023-01-01 00:00:00 2023-01-01 00:00:00 2 [facility] History SDOH Social Connections Meetings 2023-01-01 00:00:00 2023-01-01 00:00:00 1 [facility] History SDOH Social Connections Living 2023-01-01 00:00:00 2023-01-01 00:00:00 7 [facility] History SDOH Physical Activity DPW 2023-01-01 00:00:00 2023-01-01 00:00:00 1 [facility] History SDOH Physical Activity MPS 2023-01-01 00:00:00 2023-01-01 00:00:00 3 [facility] History SDOH Stress 2023-01-01 00:00:00 2023-01-01 00:00:00 5 [facility] History SDOH Financial 2023-01-01 00:00:00 2023-01-01 00:00:00 4 [facility] History SDOH Food Worry 2023-01-01 00:00:00 2023-01-01 00:00:00 1 [facility] History SDOH Food Scarcity 2023-01-01 00:00:00 2023-01-01 00:00:00 2 [facility] History SDOH Transport Med 2023-01-01 00:00:00 2023-01-01 00:00:00 2 [facility] History SDOH Transport Non-Med 2023-01-01 00:00:00 2023-01-01 00:00:00 2 [facility] History SDOH Housing Unable to Pay 2023-01-01 00:00:00 2023-01-01 00:00:00 2 [facility] History SDOH Housing Places Lived 2023-01-01 00:00:00 2023-01-01 00:00:00 1 [facility] History SDOH Housing Homeless Last Year 2023-01-01 00:00:00 2023-01-01 00:00:00 2 [facility] Tobacco use and exposure 2022-12-27 00:00:00 2022-12-27 00:00:00 Smokeless tobacco non-user [facility] Alcohol Comment 2021-11-02 00:00:00 2021-11-02 00:00:00 social [facility] Sex assigned at 2001 00:00:00 2000 00:00:00 [facility] Smoking Status Start Date Stop Date Source Never smoked tobacco [facility] Medications Ordered Medication Name Filled Medication Name Start Date Stop Date Current Medication? Ordering Clinician Indication Dosage Frequency Signature (SIG) Comments Components Source venlafaxine XR 37.5 mg 24 hr capsule 01-14 00:00: 00 Yes [id number] 109 37.5mg Take 1 capsule by mouth daily with breakfast. [facility] magnesium oxide 400 mg (241.3 mg magnesium) tablet 01-14 00:00: 00 Yes [id number] 400mg Take 1 tablet by mouth in the morning. [facility] hydrOXYzine 10 mg tablet 12-31 00:00: 00 01-24 04:59 :00 Yes [id number] 109 10mg Take 1 tablet by mouth every 6 (six) hours for 90 doses. [facility] proMETHazin e 25 mg tablet 11-13 00:00: 00 Yes [id number] 25mg Take 1 tablet by mouth every 6 (six) hours as needed for Nausea and Vomiting (N/V). [facility] PNV 67-iron ps-folate no.1-dha (VITAFOL ULTRA) 29 mg iron- 1 mg-200 mg Cap 11-13 00:00: 00 Yes [id number] 1{each} Take 1 Each by mouth in the morning. [facility] KCL (KLOR-CON M20) tablet 20 mEq 11-11 04:45: 00 11-11 04:46 :00 No 20meq 20 mEq, Oral, ONCE, 1 dose, On Sat11/11/23 at 2345, PABLO [facility] NaCl 0.9% (NS) IV infusion 1,000 mL 11-11 04:15: 00 Yes 1000mL at 999 mL/hr, Intravenou s, CONTINUOUS , Starting on Sat11/11/23 at 2315, Until Discontinu ed, Routine [facility] ondansetron (ZOFRAN (PF)) injection 4 mg 11-11 03:15: 00 11-11 03:20 :00 No 4mg 4 mg, Slow IV Push, ONCE, 1 dose, On Sat11/11/23 at 2215, PABLO [facility] doxylamine- pyridoxine, vit B6, (DICLEGIS) 10-10 mg per tablet 11-10 00:00: 00 Yes [id number] 2{tbl} Take 2 tablets by mouth at bedtime as needed for Nausea and Vomiting (N/V). [facility] ondansetron 4 mg tablet 08-20 00:00: 00 Yes [id number] 4mg Take 1 tablet by mouth every 8 (eight) hours as needed for Nausea and Vomiting (N/V). [facility] omeprazole 40 mg capsule 9-07 00:00: 00 Yes [id number] 40mg Take 1 capsule by mouth in the morning. [facility] ondansetron 8 mg tablet 8-24 00:00: 00 Yes [id number] 8mg Take 1 tablet by mouth every 8 (eight) hours as needed for Nausea and Vomiting (N/V). [facility] omeprazole 40 mg capsule 8-21 00:00: 00 04-18 00:00 :00 No [id number] 40mg Take 1 capsule by mouth in the morning. [facility] VENLAFAXINE XR 37.5 mg 24 hr capsule 2022--02 00:00: 00 01-14 00:00 :00 No [id number] 37.5mg TAKE 1 CAPSULE BY MOUTH DAILY WITH BREAKFAST. [facility] venlafaxine XR 37.5 mg 24 hr capsule 02-14 00:00: 00 03-13 00:00 :00 No [id number] 37.5mg Take 1 capsule by mouth daily with breakfast. [facility] SERTraline 25 mg tablet 01-03 00:00: 00 02-14 00:00 :00 No [id number] 25mg Take 1 tablet by mouth in the morning. [facility] naproxen (NAPROSYN) 500 mg tablet 01-03 00:00: 01-14 04:59 :00 No [id number] 500mg Take 1 tablet by mouth in the morning and 1 tablet in the evening. Take with meals. Do all this for 10 days. [facility] iopamidol (ISOVUE 370-500 mL) injection 100 mL 12-28 03:00: 00 12-28 03:00 :00 No [id number] 100mL 100 mL, Intravenou s, ONCE, 1 dose, On Sat12/27/22 at 2200, Routine [facility] norelgestro min-ethinyl estradiol (XULANE) 150-35 mcg/24 hr patch 5- 00:00: 00 01-03 00:00 :00 No [id number] 1{patch } Apply 1 Patch to skin weekly. [facility] doxycycline hyclate 100 mg capsule 2-13 00:00: 00 10-02 05:59 :00 No [id number] 100mg Take 1 capsule by mouth every 12 (twelve) hours for 7 days. [facility] norelgestro min-ethinyl estradiol 150-35 mcg/24 hr patch 2-10 00:00: 00 04-01 00:00 :00 No [id number] 1{patch } Apply 1 Patch to skin weekly. [facility] norgestimat e-ethinyl estradioL 0.18/0.215/ 0.25 mg-25 mcg tablet 02-15 00:00: 00 09-21 00:00 :00 No [id number] 1{tbl} Take 1 tablet by mouth daily. [facility] norgestimat e-ethinyl estradioL 0.18/0.215/ 0.25 mg-25 mcg tablet 11-16 00:00: 00 02-15 00:00 :00 No [id number] 1{tbl} Take 1 tablet by mouth daily. [facility] albuterol 90 mcg/actuati on inhaler 10-16 00:00: 00 01-03 00:00 :00 No [id number] 6{puff} Inhale 6 Puffs every 4 (four) hours as needed for Wheezing or Shortness of Breath. [facility] benzonatate 100 mg capsule 10-16 00:00: 00 09-21 00:00 :00 No [id number] 100mg Take 1 capsule by mouth 3 (three) times daily as needed for Cough. [facility] Immunizations Ordered Immunization Name Filled Immunization Name Date Status Comments Source Influenza Virus Vaccine Quad .5 mL IM 6+ MO 2021-11-02 00:00:00 Completed [facility] Influenza Virus Vaccine Quad .5 mL IM 6+ MO 2021-11-02 00:00:00 Completed [facility] Influenza Virus Vaccine Quad .5 mL IM 6+ MO 2021-11-02 00:00:00 Completed [facility] Influenza Virus Vaccine Quad .5 mL IM 6+ MO 2021-11-02 00:00:00 Completed [facility] Influenza Virus Vaccine Quad .5 mL IM 6+ MO 2021-11-02 00:00:00 Completed [facility] Influenza Virus Vaccine Quad .5 mL IM 6+ MO 2021-11-02 00:00:00 Completed [facility] Influenza Virus Vaccine Quad .5 mL IM 6+ MO 2021-11-02 00:00:00 Completed [facility] Influenza Virus Vaccine Quad .5 mL IM 6+ MO 2021-11-02 00:00:00 Completed [facility] Influenza Virus Vaccine Quad .5 mL IM 6+ MO 2021-11-02 00:00:00 Completed [facility] Influenza Virus Vaccine Quad .5 mL IM 6+ MO 2021-11-02 00:00:00 Completed [facility] Influenza Virus Vaccine Quad .5 mL IM 6+ MO 2021-11-02 00:00:00 Completed [facility] Influenza Virus Vaccine Quad .5 mL IM 6+ MO 2021-11-02 00:00:00 Completed [facility] Influenza Virus Vaccine Quad .5 mL IM 6+ MO 2021-11-02 00:00:00 Completed [facility] Influenza Virus Vaccine Quad .5 mL IM 6+ MO 2021-11-02 00:00:00 Completed [facility] Influenza Virus Vaccine Quad .5 mL IM 6+ MO 2021-11-02 00:00:00 Completed [facility] Influenza Virus Vaccine Quad .5 mL IM 6+ MO 2021-11-02 00:00:00 Completed [facility] Influenza Virus Vaccine Quad .5 mL IM 6+ MO 2021-11-02 00:00:00 Completed [facility] Influenza Virus Vaccine Quad .5 mL IM 6+ MO 2021-11-02 00:00:00 Completed [facility] Influenza Virus Vaccine Quad .5 mL IM 6+ MO 2021-11-02 00:00:00 Completed [facility] Influenza Virus Vaccine Quad .5 mL IM 6+ MO 2021-11-02 00:00:00 Completed [facility] Influenza Virus Vaccine Quad .5 mL IM 6+ MO 2021-11-02 00:00:00 Completed [facility] Influenza Virus Vaccine Quad .5 mL IM 6+ MO 2021-11-02 00:00:00 Completed [facility] Influenza Virus Vaccine Quad .5 mL IM 6+ MO 2021-11-02 00:00:00 Completed [facility] Influenza Virus Vaccine Quad .5 mL IM 6+ MO 2021-11-02 00:00:00 Completed [facility] Influenza Virus Vaccine Quad .5 mL IM 6+ MO 2021-11-02 00:00:00 Completed [facility] Influenza Virus Vaccine Quad .5 mL IM 6+ MO 2021-11-02 00:00:00 Completed [facility] Influenza Virus Vaccine Quad .5 mL IM 6+ MO (FLUZONE/FLULAVAL/F LUARIX) 2021-11-02 00:00:00 Completed [facility] Influenza Virus Vaccine Quad .5 mL IM 6+ MO (FLUZONE/FLULAVAL/F LUARIX) 2021-11-02 00:00:00 Completed [facility] Influenza Virus Vaccine Quad .5 mL IM 6+ MO (FLUZONE/FLULAVAL/F LUARIX) 2021-11-02 00:00:00 Completed [facility] SARS-COV-2 COVID-19 PFIZER VACCINE 2021-03-27 00:00:00 Completed [facility] SARS-COV-2 COVID-19 PFIZER VACCINE 2021-03-27 00:00:00 Completed [facility] SARS-COV-2 COVID-19 PFIZER VACCINE 2021-03-27 00:00:00 Completed [facility] SARS-COV-2 COVID-19 PFIZER VACCINE 2021-03-27 00:00:00 Completed [facility] SARS-COV-2 COVID-19 PFIZER VACCINE 2021-03-27 00:00:00 Completed [facility] SARS-COV-2 COVID-19 PFIZER VACCINE 2021-03-27 00:00:00 Completed [facility] SARS-COV-2 COVID-19 PFIZER VACCINE 2021-03-27 00:00:00 Completed [facility] SARS-COV-2 COVID-19 PFIZER VACCINE 2021-03-27 00:00:00 Completed [facility] SARS-COV-2 COVID-19 PFIZER VACCINE 2021-03-27 00:00:00 Completed [facility] SARS-COV-2 COVID-19 PFIZER VACCINE 2021-03-27 00:00:00 Completed [facility] SARS-COV-2 COVID-19 PFIZER VACCINE 2021-03-27 00:00:00 Completed [facility] SARS-COV-2 COVID-19 PFIZER VACCINE 2021-03-27 00:00:00 Completed [facility] SARS-COV-2 COVID-19 PFIZER VACCINE 2021-03-27 00:00:00 Completed [facility] SARS-COV-2 COVID-19 PFIZER VACCINE 2021-03-27 00:00:00 Completed [facility] SARS-COV-2 COVID-19 PFIZER VACCINE 2021-03-27 00:00:00 Completed [facility] SARS-COV-2 COVID-19 PFIZER VACCINE 2021-03-27 00:00:00 Completed [facility] SARS-COV-2 COVID-19 PFIZER VACCINE 2021-03-27 00:00:00 Completed [facility] SARS-COV-2 COVID-19 PFIZER VACCINE 2021-03-27 00:00:00 Completed [facility] SARS-COV-2 COVID-19 PFIZER VACCINE 2021-03-27 00:00:00 Completed [facility] SARS-COV-2 COVID-19 PFIZER VACCINE 2021-03-27 00:00:00 Completed [facility] SARS-COV-2 COVID-19 PFIZER VACCINE 2021-03-27 00:00:00 Completed [facility] SARS-COV-2 COVID-19 PFIZER VACCINE 2021-03-27 00:00:00 Completed [facility] SARS-COV-2 COVID-19 PFIZER VACCINE 2021-03-27 00:00:00 Completed [facility] SARS-COV-2 COVID-19 PFIZER VACCINE 2021-03-27 00:00:00 Completed [facility] SARS-COV-2 COVID-19 PFIZER VACCINE 2021-03-27 00:00:00 Completed [facility] SARS-COV-2 COVID-19 PFIZER VACCINE 2021-03-27 00:00:00 Completed [facility] SARS-COV-2 COVID-19 PFIZER VACCINE 2021-03-27 00:00:00 Completed [facility] SARS-COV-2 COVID-19 PFIZER VACCINE 2021-03-27 00:00:00 Completed [facility] SARS-COV-2 COVID-19 PFIZER VACCINE 2021-03-27 00:00:00 Completed [facility] SARS-COV-2 COVID-19 PFIZER VACCINE 2021-03-06 00:00:00 Completed [facility] SARS-COV-2 COVID-19 PFIZER VACCINE 2021-03-06 00:00:00 Completed [facility] SARS-COV-2 COVID-19 PFIZER VACCINE 2021-03-06 00:00:00 Completed [facility] SARS-COV-2 COVID-19 PFIZER VACCINE 2021-03-06 00:00:00 Completed [facility] SARS-COV-2 COVID-19 PFIZER VACCINE 2021-03-06 00:00:00 Completed [facility] SARS-COV-2 COVID-19 PFIZER VACCINE 2021-03-06 00:00:00 Completed [facility] SARS-COV-2 COVID-19 PFIZER VACCINE 2021-03-06 00:00:00 Completed [facility] SARS-COV-2 COVID-19 PFIZER VACCINE 2021-03-06 00:00:00 Completed [facility] SARS-COV-2 COVID-19 PFIZER VACCINE 2021-03-06 00:00:00 Completed [facility] SARS-COV-2 COVID-19 PFIZER VACCINE 2021-03-06 00:00:00 Completed [facility] SARS-COV-2 COVID-19 PFIZER VACCINE 2021-03-06 00:00:00 Completed [facility] SARS-COV-2 COVID-19 PFIZER VACCINE 2021-03-06 00:00:00 Completed [facility] SARS-COV-2 COVID-19 PFIZER VACCINE 2021-03-06 00:00:00 Completed [facility] SARS-COV-2 COVID-19 PFIZER VACCINE 2021-03-06 00:00:00 Completed [facility] SARS-COV-2 COVID-19 PFIZER VACCINE 2021-03-06 00:00:00 Completed [facility] SARS-COV-2 COVID-19 PFIZER VACCINE 2021-03-06 00:00:00 Completed [facility] SARS-COV-2 COVID-19 PFIZER VACCINE 2021-03-06 00:00:00 Completed [facility] SARS-COV-2 COVID-19 PFIZER VACCINE 2021-03-06 00:00:00 Completed [facility] SARS-COV-2 COVID-19 PFIZER VACCINE 2021-03-06 00:00:00 Completed [facility] SARS-COV-2 COVID-19 PFIZER VACCINE 2021-03-06 00:00:00 Completed [facility] SARS-COV-2 COVID-19 PFIZER VACCINE 2021-03-06 00:00:00 Completed [facility] SARS-COV-2 COVID-19 PFIZER VACCINE 2021-03-06 00:00:00 Completed [facility] SARS-COV-2 COVID-19 PFIZER VACCINE 2021-03-06 00:00:00 Completed [facility] SARS-COV-2 COVID-19 PFIZER VACCINE 2021-03-06 00:00:00 Completed [facility] SARS-COV-2 COVID-19 PFIZER VACCINE 2021-03-06 00:00:00 Completed [facility] SARS-COV-2 COVID-19 PFIZER VACCINE 2021-03-06 00:00:00 Completed [facility] SARS-COV-2 COVID-19 PFIZER VACCINE 2021-03-06 00:00:00 Completed [facility] SARS-COV-2 COVID-19 PFIZER VACCINE 2021-03-06 00:00:00 Completed [facility] SARS-COV-2 COVID-19 PFIZER VACCINE 2021-03-06 00:00:00 Completed [facility] HPV9 2019-08-25 00:00:00 Completed [facility] HPV9 2019-08-25 00:00:00 Completed [facility] HPV9 2019-08-25 00:00:00 Completed [facility] HPV9 2019-08-25 00:00:00 Completed [facility] HPV9 2019-08-25 00:00:00 Completed [facility] HPV9 2019-08-25 00:00:00 Completed [facility] HPV9 2019-08-25 00:00:00 Completed [facility] HPV9 2019-08-25 00:00:00 Completed [facility] HPV9 2019-08-25 00:00:00 Completed [facility] HPV9 2019-08-25 00:00:00 Completed [facility] HPV9 2019-08-25 00:00:00 Completed [facility] HPV9 2019-08-25 00:00:00 Completed [facility] HPV9 2019-08-25 00:00:00 Completed [facility] HPV9 2019-08-25 00:00:00 Completed [facility] HPV9 2019-08-25 00:00:00 Completed [facility] HPV9 2019-08-25 00:00:00 Completed [facility] HPV9 2019-08-25 00:00:00 Completed [facility] HPV9 2019-08-25 00:00:00 Completed [facility] HPV9 2019-08-25 00:00:00 Completed [facility] HPV9 2019-08-25 00:00:00 Completed [facility] HPV9 2019-08-25 00:00:00 Completed [facility] HPV9 2019-08-25 00:00:00 Completed [facility] HPV9 2019-08-25 00:00:00 Completed [facility] HPV9 2019-08-25 00:00:00 Completed [facility] HPV9 2019-08-25 00:00:00 Completed [facility] HPV9 2019-08-25 00:00:00 Completed [facility] HPV9 2019-08-25 00:00:00 Completed [facility] HPV9 2019-08-25 00:00:00 Completed [facility] HPV9 2019-08-25 00:00:00 Completed [facility] HPV9 2019-05-27 00:00:00 Completed [facility] HPV9 2019-05-27 00:00:00 Completed [facility] HPV9 2019-05-27 00:00:00 Completed [facility] HPV9 2019-05-27 00:00:00 Completed [facility] HPV9 2019-05-27 00:00:00 Completed [facility] HPV9 2019-05-27 00:00:00 Completed [facility] HPV9 2019-05-27 00:00:00 Completed [facility] HPV9 2019-05-27 00:00:00 Completed [facility] HPV9 2019-05-27 00:00:00 Completed [facility] HPV9 2019-05-27 00:00:00 Completed [facility] HPV9 2019-05-27 00:00:00 Completed [facility] HPV9 2019-05-27 00:00:00 Completed [facility] HPV9 2019-05-27 00:00:00 Completed [facility] HPV9 2019-05-27 00:00:00 Completed [facility] HPV9 2019-05-27 00:00:00 Completed [facility] HPV9 2019-05-27 00:00:00 Completed [facility] HPV9 2019-05-27 00:00:00 Completed [facility] HPV9 2019-05-27 00:00:00 Completed [facility] HPV9 2019-05-27 00:00:00 Completed [facility] HPV9 2019-05-27 00:00:00 Completed [facility] HPV9 2019-05-27 00:00:00 Completed [facility] HPV9 2019-05-27 00:00:00 Completed [facility] HPV9 2019-05-27 00:00:00 Completed [facility] HPV9 2019-05-27 00:00:00 Completed [facility] HPV9 2019-05-27 00:00:00 Completed [facility] HPV9 2019-05-27 00:00:00 Completed [facility] HPV9 2019-05-27 00:00:00 Completed [facility] HPV9 2019-05-27 00:00:00 Completed [facility] HPV9 2019-05-27 00:00:00 Completed [facility] TDAP (ADACEL) VACCINE 2014-06-24 00:00:00 Completed [facility] Meningococcal Vaccine 2014-06-24 00:00:00 Completed [facility] TDAP (ADACEL) VACCINE 2014-06-24 00:00:00 Completed [facility] Meningococcal Vaccine 2014-06-24 00:00:00 Completed [facility] TDAP (ADACEL) VACCINE 2014-06-24 00:00:00 Completed [facility] Meningococcal Vaccine 2014-06-24 00:00:00 Completed [facility] TDAP (ADACEL) VACCINE 2014-06-24 00:00:00 Completed [facility] Meningococcal Vaccine 2014-06-24 00:00:00 Completed [facility] TDAP (ADACEL) VACCINE 2014-06-24 00:00:00 Completed [facility] Meningococcal Vaccine 2014-06-24 00:00:00 Completed [facility] TDAP (ADACEL) VACCINE 2014-06-24 00:00:00 Completed [facility] Meningococcal Vaccine 2014-06-24 00:00:00 Completed [facility] TDAP (ADACEL) VACCINE 2014-06-24 00:00:00 Completed [facility] Meningococcal Vaccine 2014-06-24 00:00:00 Completed [facility] TDAP (ADACEL) VACCINE 2014-06-24 00:00:00 Completed [facility] Meningococcal Vaccine 2014-06-24 00:00:00 Completed [facility] TDAP (ADACEL) VACCINE 2014-06-24 00:00:00 Completed [facility] Meningococcal Vaccine 2014-06-24 00:00:00 Completed [facility] TDAP (ADACEL) VACCINE 2014-06-24 00:00:00 Completed [facility] Meningococcal Vaccine 2014-06-24 00:00:00 Completed [facility] TDAP (ADACEL) VACCINE 2014-06-24 00:00:00 Completed [facility] Meningococcal Vaccine 2014-06-24 00:00:00 Completed [facility] TDAP (ADACEL) VACCINE 2014-06-24 00:00:00 Completed [facility] Meningococcal Vaccine 2014-06-24 00:00:00 Completed [facility] TDAP (ADACEL) VACCINE 2014-06-24 00:00:00 Completed [facility] Meningococcal Vaccine 2014-06-24 00:00:00 Completed [facility] TDAP (ADACEL) VACCINE 2014-06-24 00:00:00 Completed [facility] Meningococcal Vaccine 2014-06-24 00:00:00 Completed [facility] TDAP (ADACEL) VACCINE 2014-06-24 00:00:00 Completed [facility] Meningococcal Vaccine 2014-06-24 00:00:00 Completed [facility] TDAP (ADACEL) VACCINE 2014-06-24 00:00:00 Completed [facility] Meningococcal Vaccine 2014-06-24 00:00:00 Completed [facility] TDAP (ADACEL) VACCINE 2014-06-24 00:00:00 Completed [facility] Meningococcal Vaccine 2014-06-24 00:00:00 Completed [facility] TDAP (ADACEL) VACCINE 2014-06-24 00:00:00 Completed [facility] Meningococcal Vaccine 2014-06-24 00:00:00 Completed [facility] TDAP (ADACEL) VACCINE 2014-06-24 00:00:00 Completed [facility] Meningococcal Vaccine 2014-06-24 00:00:00 Completed [facility] TDAP (ADACEL) VACCINE 2014-06-24 00:00:00 Completed [facility] Meningococcal Vaccine 2014-06-24 00:00:00 Completed [facility] TDAP (ADACEL) VACCINE 2014-06-24 00:00:00 Completed [facility] Meningococcal Vaccine 2014-06-24 00:00:00 Completed [facility] TDAP (ADACEL) VACCINE 2014-06-24 00:00:00 Completed [facility] Meningococcal Vaccine 2014-06-24 00:00:00 Completed [facility] TDAP (ADACEL) VACCINE 2014-06-24 00:00:00 Completed [facility] Meningococcal Vaccine 2014-06-24 00:00:00 Completed [facility] TDAP (ADACEL) VACCINE 2014-06-24 00:00:00 Completed [facility] Meningococcal Vaccine 2014-06-24 00:00:00 Completed [facility] TDAP (ADACEL) VACCINE 2014-06-24 00:00:00 Completed [facility] Meningococcal Vaccine 2014-06-24 00:00:00 Completed [facility] TDAP (ADACEL) VACCINE 2014-06-24 00:00:00 Completed [facility] Meningococcal Vaccine 2014-06-24 00:00:00 Completed [facility] TDAP (ADACEL) VACCINE 2014-06-24 00:00:00 Completed [facility] Meningococcal Vaccine 2014-06-24 00:00:00 Completed [facility] TDAP (ADACEL) VACCINE 2014-06-24 00:00:00 Completed [facility] Meningococcal Vaccine 2014-06-24 00:00:00 Completed [facility] TDAP (ADACEL) VACCINE 2014-06-24 00:00:00 Completed [facility] Meningococcal Vaccine 2014-06-24 00:00:00 Completed [facility] TDAP (ADACEL) VACCINE 2013-03-12 00:00:00 Completed [facility] TDAP (ADACEL) VACCINE 2013-03-12 00:00:00 Completed [facility] TDAP (ADACEL) VACCINE 2013-03-12 00:00:00 Completed [facility] TDAP (ADACEL) VACCINE 2013-03-12 00:00:00 Completed [facility] TDAP (ADACEL) VACCINE 2013-03-12 00:00:00 Completed [facility] TDAP (ADACEL) VACCINE 2013-03-12 00:00:00 Completed [facility] TDAP (ADACEL) VACCINE 2013-03-12 00:00:00 Completed [facility] TDAP (ADACEL) VACCINE 2013-03-12 00:00:00 Completed [facility] TDAP (ADACEL) VACCINE 2013-03-12 00:00:00 Completed [facility] TDAP (ADACEL) VACCINE 2013-03-12 00:00:00 Completed [facility] TDAP (ADACEL) VACCINE 2013-03-12 00:00:00 Completed [facility] TDAP (ADACEL) VACCINE 2013-03-12 00:00:00 Completed [facility] TDAP (ADACEL) VACCINE 2013-03-12 00:00:00 Completed [facility] TDAP (ADACEL) VACCINE 2013-03-12 00:00:00 Completed [facility] TDAP (ADACEL) VACCINE 2013-03-12 00:00:00 Completed [facility] TDAP (ADACEL) VACCINE 2013-03-12 00:00:00 Completed [facility] TDAP (ADACEL) VACCINE 2013-03-12 00:00:00 Completed [facility] TDAP (ADACEL) VACCINE 2013-03-12 00:00:00 Completed [facility] TDAP (ADACEL) VACCINE 2013-03-12 00:00:00 Completed [facility] TDAP (ADACEL) VACCINE 2013-03-12 00:00:00 Completed [facility] TDAP (ADACEL) VACCINE 2013-03-12 00:00:00 Completed [facility] TDAP (ADACEL) VACCINE 2013-03-12 00:00:00 Completed [facility] TDAP (ADACEL) VACCINE 2013-03-12 00:00:00 Completed [facility] TDAP (ADACEL) VACCINE 2013-03-12 00:00:00 Completed [facility] TDAP (ADACEL) VACCINE 2013-03-12 00:00:00 [facility]pleted [facility] TDAP (ADACEL) VACCINE 2013-03-12 00:00:00 Completed [facility] TDAP (ADACEL) VACCINE 2013-03-12 00:00:00 Completed [facility] TDAP (ADACEL) VACCINE 2013-03-12 00:00:00 Completed [facility] TDAP (ADACEL) VACCINE 2013-03-12 00:00:00 Completed [facility] TDAP (ADACEL) VACCINE Unknown Completed [facility] HPV9 Unknown Completed [facility] TDAP (ADACEL) VACCINE Unknown Completed [facility] Meningococcal Vaccine Unknown Completed [facility] HPV9 Unknown Completed [facility] TDAP (ADACEL) VACCINE Unknown Completed [facility] HPV9 Unknown Completed [facility] TDAP (ADACEL) VACCINE Unknown Completed [facility] Meningococcal Vaccine Unknown Completed [facility] HPV9 Unknown Completed [facility] SARS-COV-2 COVID-19 PFIZER VACCINE Unknown Completed [facility] SARS-COV-2 COVID-19 PFIZER VACCINE Unknown Completed [facility] Influenza Virus Vaccine Quad .5 mL IM 6+ MO (FLUZONE/FLULAVAL/F LUARIX) Unknown Completed [facility] TDAP (ADACEL) VACCINE Unknown Completed [facility] HPV9 Unknown Completed [facility] TDAP (ADACEL) VACCINE Unknown Completed [facility] Meningococcal Vaccine Unknown Completed [facility] HPV9 Unknown Completed [facility] SARS-COV-2 COVID-19 PFIZER VACCINE Unknown Completed [facility] SARS-COV-2 COVID-19 PFIZER VACCINE Unknown Completed [facility] Influenza Virus Vaccine Quad .5 mL IM 6+ MO (FLUZONE/FLULAVAL/F LUARIX) Unknown Completed [facility] TDAP (ADACEL) VACCINE Unknown Completed [facility] HPV9 Unknown Completed [facility] TDAP (ADACEL) VACCINE Unknown Completed [facility] Meningococcal Vaccine Unknown Completed [facility] HPV9 Unknown Completed [facility] SARS-COV-2 COVID-19 PFIZER VACCINE Unknown Completed [facility] SARS-COV-2 COVID-19 PFIZER VACCINE Unknown Completed [facility] Influenza Virus Vaccine Quad .5 mL IM 6+ MO (FLUZONE/FLULAVAL/F LUARIX) Unknown Completed [facility] TDAP (ADACEL) VACCINE Unknown Completed [facility] HPV9 Unknown Completed [facility] TDAP (ADACEL) VACCINE Unknown Completed [facility] Meningococcal Vaccine Unknown Completed [facility] HPV9 Unknown Completed [facility] SARS-COV-2 COVID-19 PFIZER VACCINE Unknown Completed [facility] SARS-COV-2 COVID-19 PFIZER VACCINE Unknown Completed [facility] Influenza Virus Vaccine Quad .5 mL IM 6+ MO (FLUZONE/FLULAVAL/F LUARIX) Unknown Completed [facility] TDAP (ADACEL) VACCINE Unknown Completed [facility] HPV9 Unknown Completed [facility] TDAP (ADACEL) VACCINE Unknown Completed [facility] Meningococcal Vaccine Unknown Completed [facility] HPV9 Unknown Completed [facility] SARS-COV-2 COVID-19 PFIZER VACCINE Unknown Completed [facility] SARS-COV-2 COVID-19 PFIZER VACCINE Unknown Completed [facility] Influenza Virus Vaccine Quad .5 mL IM 6+ MO (FLUZONE/FLULAVAL/F LUARIX) Unknown Completed [facility] TDAP (ADACEL) VACCINE Unknown Completed [facility] HPV9 Unknown Completed [facility] TDAP (ADACEL) VACCINE Unknown Completed [facility] Meningococcal Vaccine Unknown Completed [facility] HPV9 Unknown Completed [facility] SARS-COV-2 COVID-19 PFIZER VACCINE Unknown Completed [facility] SARS-COV-2 COVID-19 PFIZER VACCINE Unknown Completed [facility] Influenza Virus Vaccine Quad .5 mL IM 6+ MO (FLUZONE/FLULAVAL/F LUARIX) Unknown Completed [facility] TDAP (ADACEL) VACCINE Unknown Completed [facility] HPV9 Unknown Completed [facility] TDAP (ADACEL) VACCINE Unknown Completed [facility] Meningococcal Vaccine Unknown Completed [facility] HPV9 Unknown Completed [facility] SARS-COV-2 COVID-19 PFIZER VACCINE Unknown Completed [facility] SARS-COV-2 COVID-19 PFIZER VACCINE Unknown Completed [facility] Influenza Virus Vaccine Quad .5 mL IM 6+ MO (FLUZONE/FLULAVAL/F LUARIX) Unknown Completed [facility] TDAP (ADACEL) VACCINE Unknown Completed [facility] HPV9 Unknown Completed [facility] TDAP (ADACEL) VACCINE Unknown Completed [facility] Meningococcal Vaccine Unknown Completed [facility] HPV9 Unknown Completed [facility] SARS-COV-2 COVID-19 PFIZER VACCINE Unknown Completed [facility] SARS-COV-2 COVID-19 PFIZER VACCINE Unknown Completed [facility] Influenza Virus Vaccine Quad .5 mL IM 6+ MO (FLUZONE/FLULAVAL/F LUARIX) Unknown Completed [facility] TDAP (ADACEL) VACCINE Unknown Completed [facility] HPV9 Unknown Completed [facility] TDAP (ADACEL) VACCINE Unknown Completed [facility] Meningococcal Vaccine Unknown Completed [facility] HPV9 Unknown Completed [facility] SARS-COV-2 COVID-19 PFIZER VACCINE Unknown Completed [facility] SARS-COV-2 COVID-19 PFIZER VACCINE Unknown Completed [facility] Influenza Virus Vaccine Quad .5 mL IM 6+ MO (FLUZONE/FLULAVAL/F LUARIX) Unknown Completed [facility] TDAP (ADACEL) VACCINE Unknown Completed [facility] HPV9 Unknown Completed [facility] TDAP (ADACEL) VACCINE Unknown Completed [facility] Meningococcal Vaccine Unknown Completed [facility] HPV9 Unknown Completed [facility] SARS-COV-2 COVID-19 PFIZER VACCINE Unknown Completed [facility] SARS-COV-2 COVID-19 PFIZER VACCINE Unknown Completed [facility] Influenza Virus Vaccine Quad .5 mL IM 6+ MO (FLUZONE/FLULAVAL/F LUARIX) Unknown Completed [facility] TDAP (ADACEL) VACCINE Unknown Completed [facility] HPV9 Unknown Completed [facility] TDAP (ADACEL) VACCINE Unknown Completed [facility] Meningococcal Vaccine Unknown Completed [facility] HPV9 Unknown Completed [facility] SARS-COV-2 COVID-19 PFIZER VACCINE Unknown Completed [facility] SARS-COV-2 COVID-19 PFIZER VACCINE Unknown Completed [facility] Influenza Virus Vaccine Quad .5 mL IM 6+ MO (FLUZONE/FLULAVAL/F LUARIX) Unknown Completed [facility] TDAP (ADACEL) VACCINE Unknown Completed [facility] HPV9 Unknown Completed [facility] TDAP (ADACEL) VACCINE Unknown Completed [facility] Meningococcal Vaccine Unknown Completed [facility] HPV9 Unknown Completed [facility] SARS-COV-2 COVID-19 PFIZER VACCINE Unknown Completed [facility] SARS-COV-2 COVID-19 PFIZER VACCINE Unknown Completed [facility] Influenza Virus Vaccine Quad .5 mL IM 6+ MO (FLUZONE/FLULAVAL/F LUARIX) Unknown Completed [facility] TDAP (ADACEL) VACCINE Unknown Completed [facility] HPV9 Unknown Completed [facility] TDAP (ADACEL) VACCINE Unknown Completed [facility] Meningococcal Vaccine Unknown Completed [facility] HPV9 Unknown Completed [facility] SARS-COV-2 COVID-19 PFIZER VACCINE Unknown Completed [facility] SARS-COV-2 COVID-19 PFIZER VACCINE Unknown Completed [facility] Influenza Virus Vaccine Quad .5 mL IM 6+ MO (FLUZONE/FLULAVAL/F LUARIX) Unknown Completed [facility] TDAP (ADACEL) VACCINE Unknown Completed [facility] HPV9 Unknown Completed [facility] TDAP (ADACEL) VACCINE Unknown Completed [facility] Meningococcal Vaccine Unknown Completed [facility] HPV9 Unknown Completed [facility] SARS-COV-2 COVID-19 PFIZER VACCINE Unknown Completed [facility] SARS-COV-2 COVID-19 PFIZER VACCINE Unknown Completed [facility] Influenza Virus Vaccine Quad .5 mL IM 6+ MO (FLUZONE/FLULAVAL/F LUARIX) Unknown Completed [facility] TDAP (ADACEL) VACCINE Unknown Completed [facility] HPV9 Unknown Completed [facility] TDAP (ADACEL) VACCINE Unknown Completed [facility] Meningococcal Vaccine Unknown Completed [facility] HPV9 Unknown Completed [facility] SARS-COV-2 COVID-19 PFIZER VACCINE Unknown Completed [facility] SARS-COV-2 COVID-19 PFIZER VACCINE Unknown Completed [facility] Influenza Virus Vaccine Quad .5 mL IM 6+ MO (FLUZONE/FLULAVAL/F LUARIX) Unknown Completed [facility] TDAP (ADACEL) VACCINE Unknown Completed [facility] HPV9 Unknown Completed [facility] TDAP (ADACEL) VACCINE Unknown Completed [facility] Meningococcal Vaccine Unknown Completed [facility] HPV9 Unknown Completed [facility] SARS-COV-2 COVID-19 PFIZER VACCINE Unknown Completed [facility] SARS-COV-2 COVID-19 PFIZER VACCINE Unknown Completed [facility] Influenza Virus Vaccine Quad .5 mL IM 6+ MO (FLUZONE/FLULAVAL/F LUARIX) Unknown Completed [facility] TDAP (ADACEL) VACCINE Unknown Completed [facility] HPV9 Unknown Completed [facility] TDAP (ADACEL) VACCINE Unknown Completed [facility] Meningococcal Vaccine Unknown Completed [facility] HPV9 Unknown Completed [facility] SARS-COV-2 COVID-19 PFIZER VACCINE Unknown Completed [facility] SARS-COV-2 COVID-19 PFIZER VACCINE Unknown Completed [facility] Influenza Virus Vaccine Quad .5 mL IM 6+ MO (FLUZONE/FLULAVAL/F LUARIX) Unknown Completed [facility] TDAP (ADACEL) VACCINE Unknown Completed [facility] HPV9 Unknown Completed [facility] TDAP (ADACEL) VACCINE Unknown Completed [facility] Meningococcal Vaccine Unknown Completed [facility] HPV9 Unknown Completed [facility] SARS-COV-2 COVID-19 PFIZER VACCINE Unknown Completed [facility] SARS-COV-2 COVID-19 PFIZER VACCINE Unknown Completed [facility] Influenza Virus Vaccine Quad .5 mL IM 6+ MO (FLUZONE/FLULAVAL/F LUARIX) Unknown Completed [facility] TDAP (ADACEL) VACCINE Unknown Completed [facility] HPV9 Unknown Completed [facility] TDAP (ADACEL) VACCINE Unknown Completed [facility] Meningococcal Vaccine Unknown Completed [facility] HPV9 Unknown Completed [facility] SARS-COV-2 COVID-19 PFIZER VACCINE Unknown Completed [facility] SARS-COV-2 COVID-19 PFIZER VACCINE Unknown Completed [facility] Influenza Virus Vaccine Quad .5 mL IM 6+ MO (FLUZONE/FLULAVAL/F LUARIX) Unknown Completed [facility] TDAP (ADACEL) VACCINE Unknown Completed [facility] HPV9 Unknown Completed [facility] TDAP (ADACEL) VACCINE Unknown Completed [facility] Meningococcal Vaccine Unknown Completed [facility] HPV9 Unknown Completed [facility] SARS-COV-2 COVID-19 PFIZER VACCINE Unknown Completed [facility] SARS-COV-2 COVID-19 PFIZER VACCINE Unknown Completed [facility] Influenza Virus Vaccine Quad .5 mL IM 6+ MO (FLUZONE/FLULAVAL/F LUARIX) Unknown Completed [facility] TDAP (ADACEL) VACCINE Unknown Completed [facility] HPV9 Unknown Completed [facility] TDAP (ADACEL) VACCINE Unknown Completed [facility] Meningococcal Vaccine Unknown Completed [facility] HPV9 Unknown Completed [facility] SARS-COV-2 COVID-19 PFIZER VACCINE Unknown Completed [facility] SARS-COV-2 COVID-19 PFIZER VACCINE Unknown Completed [facility] Influenza Virus Vaccine Quad .5 mL IM 6+ MO (FLUZONE/FLULAVAL/F LUARIX) Unknown Completed [facility] TDAP (ADACEL) VACCINE Unknown Completed [facility] HPV9 Unknown Completed [facility] TDAP (ADACEL) VACCINE Unknown Completed [facility] Meningococcal Vaccine Unknown Completed [facility] HPV9 Unknown Completed [facility] SARS-COV-2 COVID-19 PFIZER VACCINE Unknown Completed [facility] SARS-COV-2 COVID-19 PFIZER VACCINE Unknown Completed [facility] Influenza Virus Vaccine Quad .5 mL IM 6+ MO (FLUZONE/FLULAVAL/F LUARIX) Unknown Completed [facility] TDAP (ADACEL) VACCINE Unknown Completed [facility] HPV9 Unknown Completed [facility] TDAP (ADACEL) VACCINE Unknown Completed [facility] Meningococcal Vaccine Unknown Completed [facility] HPV9 Unknown Completed [facility] SARS-COV-2 COVID-19 PFIZER VACCINE Unknown Completed [facility] SARS-COV-2 COVID-19 PFIZER VACCINE Unknown Completed [facility] Influenza Virus Vaccine Quad .5 mL IM 6+ MO (FLUZONE/FLULAVAL/F LUARIX) Unknown Completed [facility] TDAP (ADACEL) VACCINE Unknown Completed [facility] HPV9 Unknown Completed [facility] TDAP (ADACEL) VACCINE Unknown Completed [facility] Meningococcal Vaccine Unknown Completed [facility] HPV9 Unknown Completed [facility] SARS-COV-2 COVID-19 PFIZER VACCINE Unknown Completed [facility] SARS-COV-2 COVID-19 PFIZER VACCINE Unknown Completed [facility] Influenza Virus Vaccine Quad .5 mL IM 6+ MO (FLUZONE/FLULAVAL/F LUARIX) Unknown Completed [facility] TDAP (ADACEL) VACCINE Unknown Completed [facility] HPV9 Unknown Completed [facility] TDAP (ADACEL) VACCINE Unknown Completed [facility] Meningococcal Vaccine Unknown Completed [facility] HPV9 Unknown Completed [facility] SARS-COV-2 COVID-19 PFIZER VACCINE Unknown Completed [facility] SARS-COV-2 COVID-19 PFIZER VACCINE Unknown Completed [facility] Influenza Virus Vaccine Quad .5 mL IM 6+ MO (FLUZONE/FLULAVAL/F LUARIX) Unknown Completed [facility] TDAP (ADACEL) VACCINE Unknown Completed [facility] HPV9 Unknown Completed [facility] TDAP (ADACEL) VACCINE Unknown Completed [facility] Meningococcal Vaccine Unknown Completed [facility] HPV9 Unknown Completed [facility] SARS-COV-2 COVID-19 PFIZER VACCINE Unknown Completed [facility] SARS-COV-2 COVID-19 PFIZER VACCINE Unknown Completed [facility] Influenza Virus Vaccine Quad .5 mL IM 6+ MO (FLUZONE/FLULAVAL/F LUARIX) Unknown Completed [facility] TDAP (ADACEL) VACCINE Unknown Completed [facility] HPV9 Unknown Completed [facility] TDAP (ADACEL) VACCINE Unknown Completed [facility] Meningococcal Vaccine Unknown Completed [facility] HPV9 Unknown Completed [facility] SARS-COV-2 COVID-19 PFIZER VACCINE Unknown Completed [facility] SARS-COV-2 COVID-19 PFIZER VACCINE Unknown Completed [facility] Influenza Virus Vaccine Quad .5 mL IM 6+ MO (FLUZONE/FLULAVAL/F LUARIX) Unknown Completed [facility] TDAP (ADACEL) VACCINE Unknown Completed [facility] HPV9 Unknown Completed [facility] TDAP (ADACEL) VACCINE Unknown Completed [facility] Meningococcal Vaccine Unknown Completed [facility] HPV9 Unknown Completed [facility] SARS-COV-2 COVID-19 PFIZER VACCINE Unknown Completed [facility] SARS-COV-2 COVID-19 PFIZER VACCINE Unknown Completed [facility] Influenza Virus Vaccine Quad .5 mL IM 6+ MO (FLUZONE/FLULAVAL/F LUARIX) Unknown Completed [facility] TDAP (ADACEL) VACCINE Unknown Completed [facility] HPV9 Unknown Completed [facility] TDAP (ADACEL) VACCINE Unknown Completed [facility] Meningococcal Vaccine Unknown Completed [facility] HPV9 Unknown Completed [facility] SARS-COV-2 COVID-19 PFIZER VACCINE Unknown Completed [facility] SARS-COV-2 COVID-19 PFIZER VACCINE Unknown Completed [facility] Influenza Virus Vaccine Quad .5 mL IM 6+ MO (FLUZONE/FLULAVAL/F LUARIX) Unknown Completed [facility] Vital Signs Vital Name Observation Time Observation Value Comments S ource Systolic blood pressure 2024-01-25 06:00:00 130 mm[Hg] [facility] Diastolic blood pressure 2024-01-25 06:00:00 70 mm[Hg] [facility] Heart rate 2024-01-25 06:00:00 75 /min [facility] Respiratory rate 2024-01-25 06:00:00 17 /min [facility] Oxygen saturation in Arterial blood by Pulse oximetry 2024-01-25 06:00:00 100 /min [facility] Body temperature 2024-01-25 05:18:00 36.56 Barby [facility] Body height 2024-01-25 04:56:00 162.6 cm [facility] Body weight 2024-01-25 04:56:00 67.359 kg [facility] BMI 2024-01-25 04:56:00 25.49 kg/m2 [facility] Systolic blood pressure 2024-01-15 15:14:00 130 mm[Hg] [facility] Diastolic blood pressure 2024-01-15 15:14:00 75 mm[Hg] [facility] Heart rate 2024-01-15 15:14:00 92 /min [facility] Body temperature 2024-01-15 15:14:00 36.22 Barby [facility] Respiratory rate 2024-01-15 15:14:00 17 /min [facility] Body height 2024-01-15 15:14:00 162.6 cm [facility] Body weight 2024-01-15 15:14:00 64.501 kg [facility] BMI 2024-01-15 15:14:00 24.41 kg/m2 [facility] Systolic blood pressure 2024-01-01 15:28:00 132 mm[Hg] [facility] Diastolic blood pressure 2024-01-01 15:28:00 69 mm[Hg] [facility] Heart rate 2024-01-01 15:28:00 78 /min [facility] Body temperature 2024-01-01 15:28:00 36.61 Barby [facility] Respiratory rate 2024-01-01 15:28:00 18 /min [facility] Body height 2024-01-01 15:28:00 162.6 cm [facility] Body weight 2024-01-01 15:28:00 63.22 kg [facility] BMI 2024-01-01 15:28:00 23.92 kg/m2 [facility] Systolic blood pressure 2023-12-30 13:56:00 127 mm[Hg] [facility] Diastolic blood pressure 2023-12-30 13:56:00 80 mm[Hg] [facility] Heart rate 2023-12-30 13:56:00 76 /min [facility] Body temperature 2023-12-30 13:56:00 36.11 Barby [facility] Respiratory rate 2023-12-30 13:56:00 18 /min [facility] Body height 2023-12-30 13:56:00 162.6 cm [facility] Body weight 2023-12-30 13:56:00 63.957 kg [facility] BMI 2023-12-30 13:56:00 24.20 kg/m2 [facility] Systolic blood pressure 2023-12-10 18:34:00 118 mm[Hg] [facility] Diastolic blood pressure 2023-12-10 18:34:00 68 mm[Hg] [facility] Heart rate 2023-12-10 18:34:00 74 /min [facility] Body temperature 2023-12-10 18:34:00 36.44 Barby [facility] Respiratory rate 2023-12-10 18:34:00 18 /min [facility] Body height 2023-12-10 18:34:00 162.6 cm [facility] Body weight 2023-12-10 18:34:00 61.19 kg [facility] BMI 2023-12-10 18:34:00 23.16 kg/m2 [facility] Systolic blood pressure 2023-11-14 14:36:00 127 mm[Hg] [facility] Diastolic blood pressure 2023-11-14 14:36:00 82 mm[Hg] [facility] Heart rate 2023-11-14 14:36:00 91 /min [facility] Body temperature 2023-11-14 14:36:00 36.89 Barby [facility] Respiratory rate 2023-11-14 14:36:00 18 /min [facility] Body height 2023-11-14 14:36:00 162.6 cm [facility] Body weight 2023-11-14 14:36:00 60.782 kg [facility] BMI 2023-11-14 14:36:00 23.00 kg/m2 [facility] Systolic blood pressure 2023-11-12 04:00:00 127 mm[Hg] [facility] Diastolic blood pressure 2023-11-12 04:00:00 55 mm[Hg] [facility] Heart rate 2023-11-12 04:00:00 69 /min [facility] Body temperature 2023-11-12 04:00:00 37.22 Barby [facility] Respiratory rate 2023-11-12 04:00:00 16 /min [facility] Oxygen saturation in Arterial blood by Pulse oximetry 2023-11-12 04:00:00 100 /min [facility] Body height 2023-11-12 02:44:00 162.6 cm [facility] Body weight 2023-11-12 02:44:00 58.968 kg [facility] BMI 2023-11-12 02:44:00 22.31 kg/m2 [facility] Systolic blood pressure 2023-10-24 16:38:00 140 mm[Hg] [facility] Diastolic blood pressure 2023-10-24 16:38:00 88 mm[Hg] [facility] Heart rate 2023-10-24 16:38:00 78 /min [facility] Body temperature 2023-10-24 16:38:00 37.33 Barby [facility] Respiratory rate 2023-10-24 16:38:00 22 /min [facility] Body height 2023-10-24 16:38:00 162.6 cm [facility] Body weight 2023-10-24 16:38:00 58.968 kg [facility] BMI 2023-10-24 16:38:00 22.31 kg/m2 [facility] Oxygen saturation in Arterial blood by Pulse oximetry 2023-10-24 16:38:00 100 /min [facility] Systolic blood pressure 2023-08-20 20:26:00 136 mm[Hg] [facility] Diastolic blood pressure 2023-08-20 20:26:00 81 mm[Hg] [facility] Heart rate 2023-08-20 20:26:00 68 /min [facility] Body temperature 2023-08-20 20:26:00 36.17 Barby [facility] Respiratory rate 2023-08-20 20:26:00 18 /min [facility] Body height 2023-08-20 20:26:00 165.1 cm [facility] Body weight 2023-08-20 20:26:00 62.642 kg [facility] BMI 2023-08-20 20:26:00 22.98 kg/m2 [facility] Systolic blood pressure 2023-04-24 15:10:00 148 mm[Hg] [facility] Diastolic blood pressure 2023-04-24 15:10:00 99 mm[Hg] [facility] Heart rate 2023-04-24 15:10:00 87 /min [facility] Body temperature 2023-04-24 15:10:00 37.11 Barby [facility] Respiratory rate 2023-04-24 15:10:00 18 /min [facility] Body height 2023-04-24 15:10:00 165.1 cm [facility] Body weight 2023-04-24 15:10:00 62.596 kg [facility] BMI 2023-04-24 15:10:00 22.96 kg/m2 [facility] Oxygen saturation in Arterial blood by Pulse oximetry 2023-04-24 15:10:00 100 /min [facility] Systolic blood pressure 2023-04-18 15:54:00 141 mm[Hg] [facility] Diastolic blood pressure 2023-04-18 15:54:00 73 mm[Hg] [facility] Heart rate 2023-04-18 15:54:00 58 /min [facility] Body temperature 2023-04-18 15:54:00 36.28 Barby [facility] Respiratory rate 2023-04-18 15:54:00 18 /min [facility] Body height 2023-04-18 15:54:00 162.6 cm [facility] Body weight 2023-04-18 15:54:00 62.914 kg [facility] BMI 2023-04-18 15:54:00 23.81 kg/m2 [facility] Systolic blood pressure 2023-04-01 18:05:00 140 mm[Hg] [facility] Diastolic blood pressure 2023-04-01 18:05:00 87 mm[Hg] [facility] Heart rate 2023-04-01 18:02:00 97 /min [facility] Body temperature 2023-04-01 18:02:00 36 Barby [facility] Body height 2023-04-01 18:02:00 165.1 cm [facility] Body weight 2023-04-01 18:02:00 61.236 kg [facility] BMI 2023-04-01 18:02:00 22.47 kg/m2 [facility] Oxygen saturation in Arterial blood by Pulse oximetry 2023-04-01 18:02:00 97 /min [facility] Systolic blood pressure 2023-02-14 15:01:00 126 mm[Hg] [facility] Diastolic blood pressure 2023-02-14 15:01:00 58 mm[Hg] [facility] Heart rate 2023-02-14 15:01:00 70 /min [facility] Body temperature 2023-02-14 15:01:00 36.61 Barby [facility] Respiratory rate 2023-02-14 15:01:00 18 /min [facility] Body height 2023-02-14 15:01:00 165.1 cm [facility] Body weight 2023-02-14 15:01:00 66.815 kg [facility] BMI 2023-02-14 15:01:00 24.51 kg/m2 [facility] Oxygen saturation in Arterial blood by Pulse oximetry 2023-02-14 15:01:00 100 /min [facility] Systolic blood pressure 2023-01-03 14:37:00 130 mm[Hg] [facility] Diastolic blood pressure 2023-01-03 14:37:00 85 mm[Hg] [facility] Heart rate 2023-01-03 14:37:00 66 /min [facility] Body temperature 2023-01-03 14:37:00 36.28 Barby [facility] Body height 2023-01-03 14:37:00 165.1 cm [facility] Body weight 2023-01-03 14:37:00 68.221 kg [facility] BMI 2023-01-03 14:37:00 25.03 kg/m2 [facility] Oxygen saturation in Arterial blood by Pulse oximetry 2023-01-03 14:37:00 98 /min [facility] Systolic blood pressure 2022-12-28 00:30:00 133 mm[Hg] [facility] Diastolic blood pressure 2022-12-28 00:30:00 75 mm[Hg] [facility] Heart rate 2022-12-28 00:30:00 82 /min [facility] Body temperature 2022-12-28 00:30:00 37.22 Barby [facility] Respiratory rate 2022-12-28 00:30:00 16 /min [facility] Body height 2022-12-28 00:30:00 165.1 cm [facility] Body weight 2022-12-28 00:30:00 67.858 kg [facility] BMI 2022-12-28 00:30:00 24.89 kg/m2 [facility] Oxygen saturation in Arterial blood by Pulse oximetry 2022-12-28 00:30:00 100 /min [facility] Systolic blood pressure 2022-12-28 00:06:00 145 mm[Hg] [facility] Diastolic blood pressure 2022-12-28 00:06:00 102 mm[Hg] [facility] Heart rate 2022-12-28 00:06:00 88 /min [facility] Body temperature 2022-12-28 00:06:00 36.39 Barby [facility] Respiratory rate 2022-12-28 00:06:00 17 /min [facility] Body weight 2022-12-28 00:06:00 67.813 kg [facility] BMI 2022-12-28 00:06:00 25.66 kg/m2 [facility] Oxygen saturation in Arterial blood by Pulse oximetry 2022-12-28 00:06:00 98 /min [facility] Systolic blood pressure 2022-12-20 14:41:00 128 mm[Hg] [facility] Diastolic blood pressure 2022-12-20 14:41:00 79 mm[Hg] [facility] Heart rate 2022-12-20 14:41:00 79 /min [facility] Body temperature 2022-12-20 14:41:00 36 Barby [facility] Respiratory rate 2022-12-20 14:41:00 18 /min [facility] Body height 2022-12-20 14:41:00 162.6 cm [facility] Body weight 2022-12-20 14:41:00 69.854 kg [facility] BMI 2022-12-20 14:41:00 26.43 kg/m2 [facility] Systolic blood pressure 2022-09-21 15:50:00 132 mm[Hg] [facility] Diastolic blood pressure 2022-09-21 15:50:00 73 mm[Hg] [facility] Heart rate 2022-09-21 15:45:00 73 /min [facility] Body temperature 2022-09-21 15:45:00 36.72 Barby [facility] Respiratory rate 2022-09-21 15:45:00 19 /min [facility] Body height 2022-09-21 15:45:00 165.1 cm [facility] Body weight 2022-09-21 15:45:00 76.068 kg [facility] BMI 2022-09-21 15:45:00 27.91 kg/m2 [facility] Systolic blood pressure 2022-02-15 13:51:00 127 mm[Hg] [facility] Diastolic blood pressure 2022-02-15 13:51:00 88 mm[Hg] [facility] Heart rate 2022-02-15 13:51:00 71 /min [facility] Body temperature 2022-02-15 13:51:00 36.11 Barby [facility] Respiratory rate 2022-02-15 13:51:00 16 /min [facility] Body height 2022-02-15 13:51:00 165.1 cm [facility] Body weight 2022-02-15 13:51:00 89.313 kg [facility] BMI 2022-02-15 13:51:00 32.77 kg/m2 [facility] Procedures Procedure Date / Time Performed Performing Clinician Source POCT URINALYSIS 2024-01-01 15:29:00 Leslie Castellanos [facility] POCT URINALYSIS 2023-12-30 13:59:00 Leslie Castellanos [facility] POCT URINALYSIS 2023-12-10 19:51:00 Leslie Castellanos [facility] FIRST TRIMESTER ULTRASOUND 2023-11-27 20:41:01 Leslie Castellanos [facility] PAP SMEAR-LIQUID BASED-CP 2023-11-14 16:19:00 Leslie Castellanos [facility] GLUCOSE 1 HOUR POST PRANDIAL 2023-11-14 15:53:00 Leslie Castellanos [facility] CBC WITH DIFF 2023-11-14 15:53:00 Leslie Castellanos [facility] HEPATITIS B SURFACE ANTIGEN 2023-11-14 15:53:00 Leslie Castellanos [facility] HB ABO GROUPING 2023-11-14 15:53:00 Leslie Castellanos [facility] HIV 1/2 AG-AB WITH REFLEX 2023-11-14 15:53:00 Leslie Castellanos [facility] POCT URINALYSIS W/O SPECIFIC GRAVITY 2023-11-14 14:37:00 Carla Vaughn [facility] POCT TEST 2023-11-14 14:27:00 Sivan Vaughn [facility] LIPASE 2023-11-12 03:10:00 Yarima, Wakili [facility] COMP. METABOLIC PANEL ([id number]) 2023-11-12 03:10:00 Arnold Blum [facility] CBC WITH DIFF 2023-11-12 03:10:00 Arnold Blum [facility] URINALYSIS 2023-11-12 03:10:00 Arnold Blum [facility] ABORH CONFIRMATION (LAB ONLY) 2023-10-24 18:54:00 Nacho Nguyen [facility] THYROID STIMULATING HORMONE 2023-10-24 17:55:00 Nacho Nguyen [facility] COMP. METABOLIC PANEL ([id number]) 2023-10-24 17:55:00 Nacho Nguyen [facility] TOTAL BETA HCG ASSAY 2023-10-24 17:55:00 Wendy, And res [facility] CBC WITH DIFF 2023-10-24 17:55:00 Nacho Nguyen [facility] HB ABO GROUPING 2023-10-24 17:55:00 Nacho Nguyen [facility] CONSENT/REFUSAL FOR DIAGNOSIS AND TREATMENT 2023-10-24 16:28:49 Doctor Unassigned, Wanda [facility] POCT TEST 2023-04-24 15:42:00 Berkley Dickson [facility] URINALYSIS 2023-04-24 15:38:00 Rahel Dickson [facility] ASSIGNMENT OF BENEFITS 2023-04-24 15:20:04 Docto r Unassigned, Wanda [facility] CONSENT/REFUSAL FOR DIAGNOSIS AND TREATMENT 2023-04-24 15:04:50 Doctor Unassigned, Wanda [facility] POCT TEST 2023-04-18 00:00:00 Adriano Olivier [facility] COMP. METABOLIC PANEL ([id number]) 2023-04-01 18:36:00 Eliza Olivier [facility] CBC WITH DIFF 2023-04-01 18:36:00 Eliza Olivier [facility] POCT URINALYSIS 2023-01-03 15:09:00 Eliza Olivier [facility] POCT TEST 2023-01-03 15:09:00 Adriano Olivier [facility] CT ABDOMEN PELVIS W CONTRAST 2022-12-28 02:03:46 Yaw Bro [facility] ASSIGNMENT OF BENEFITS 2022-12-28 01:22:25 Docto r Unassigned, Wanda [facility] POCT TEST 2022-12-28 01:05:00 Kasandra Bro [facility] LIPASE 2022-12-28 01:04:00 [facility] THYROID STIMULATING HORMONE 2022-12-28 01:04:00 Yaw Bro [facility] COMP. METABOLIC PANEL ([id number]) 2022-12-28 01:04:00 Yaw Bro [facility] CBC WITH DIFF 2022-12-28 01:04:00 Yaw Bro [facility] URINALYSIS 2022-12-28 01:04:00 [facility] CONSENT/REFUSAL FOR DIAGNOSIS AND TREATMENT 2022-12-28 00:17:56 Doctor Unassigned, Wanda [facility] ASSIGNMENT OF BENEFITS 2022-12-20 14:26:08 Docto r Unassigned, Wanda [facility] POCT TEST 2022-09-21 00:00:00 Sivan Vaughn [facility] Encounters Start Date/Time End Date/Time Encounter Type Admission Type Attending Clinicians Care Facility Care Department Encounter ID Source 2024-01-25 01:57:28 Outpatient X [facility] [id number] [facility] 2021-06-08 19:53:15 Emergency [facility] [id number] [facility] 2024-01-27 10:30:00 2024-01-27 10:30:00 Outpatient R LESLIE CASTELLANOS [facility] [id number] [facility] 2024-01-24 23:58:00 2024-01-25 01:07:00 Outpatient X DAISY CABELLO [facility] [id number] [facility] 2024-01-24 23:58:00 2024-01-25 01:07:00 Emergency Adum, Daisy Crandall [facility] .[id number] [facility] 2024-01-15 10:00:00 2024-01-15 10:36:33 Outpatient DEXTER BASILIO [facility] [id number] [facility] 2024-01-15 10:00:00 2024-01-15 10:36:33 Routine Visit Risk, Yonathanchp-N p/High Dexter Mcconnell [facility] SHIP[facility] ASSOCIATE [facility] & CHILD [facility] .84.114 350.1.13.10 4.2.7.2.686 [id number] 107 [id number] [facility] 2024-01-15 09:15:00 2024-01-15 09:15:00 Outpatient RANDI JENSEN [facility] [id number] [facility] 2024-01-01 10:15:00 2024-01-01 10:48:59 Outpatient RANDI JENSEN [facility] [id number] [facility] 2024-01-01 10:15:00 2024-01-01 10:48:59 Office Visit Risk, Yonathanchp-N p/High Randi Do [facility] SHIPPING ASSOCIATE [facility] & CHILD [facility] .84.114 350.1.13.10 4.2.7.2.686 [id number] 107 [id number] [facility] 2023-12-31 00:00:00 2023-12-31 15:56:17 Telephone Leslie Castellanos [facility] SHIPPING ASSOCIATE [facility] & CHILD [facility] 1.840.114 350.1.13.10 4.2.7.2.686 [id number] 107 [id number] [facility] 2023-12-31 00:00:00 2023-12-31 13:41:30 Telephone Leslie Castellanos [place] SHIPPING ASSOCIATE [facility] & CHILD [facility] 1.2.840.114 350.1.13.10 4.2.7.2.686 [id number] 107 [id number] [facility] 2023-12-30 08:15:00 2023-12-30 09:24:22 Outpatient R LESLIE CASTELLANOS [facility] [id number] [facility] 2023-12-30 08:15:00 2023-12-30 09:24:22 Routine Visit Leslie Castellanos [facility] SHIPPING ASSOCIATE [facility] & CHILD [facility] 1.2.840.114 350.1.13.10 4.2.7.2.686 [id number] 107 [id number] [facility] 2023-12-25 00:00:00 2023-12-25 15:45:03 Telephone Leslie Castellanos [facility] SHIPPING ASSOCIATE [facility] CHILD [facility] 1.2840.114 350.1.13.10 4.2.7.2.686 [id number] 107 [id number] [facility] 2023-12-10 13:30:00 2023-12-10 14:18:53 Outpatient R LESLIE CASTELLANOS [facility] [id number] [facility] 2023-12-10 13:30:00 2023-12-10 14:18:53 Routine Visit Leslie Castellanos [place] SHIPPING ASSOCIATE [facility] & CHILD [facility] 1.2.840.114 350.1.13.10 4.2.7.2.686 [id number] 107 [id number] [facility] 2023-11-29 00:00:00 2023-11-29 00:00:00 Abstract Leslie Castellanos [facility] SHIPPING ASSOCIATE [facility] CHILD [facility] 1.2.840.114 350.1.13.10 4.2.7.2.686 [id number] 107 [id number] [facility] 2023-11-27 11:00:00 2023-11-27 11:00:00 Outpatient P [facility] [id number] [facility] 2023-11-27 00:00:00 2023-11-27 00:00:00 Telephone Leslie Castellanos [facility] SHIPPING ASSOCIATE [facility] & CHILD [facility] 1..840.114 350.1.13.10 4.2.7.2.686 [id number] 107 [id number] [facility] 2023-11-26 10:00:00 2023-11-26 10:28:29 Outpatient P ERVIN BIRMINGHAM [facility] [id number] [facility] 2023-11-26 10:00:00 2023-11-26 10:28:29 Planning Division Superintendent Visit Ultrasound, [facility] Ervin Birmingham [facility] SHIPPING ASSOCIATE [facility] & CHILD [facility] 1..840.114 350.1.13.10 4.2.7.2.686 [id number] [facility] 2023-11-21 08:30:00 2023-11-21 08:30:00 Outpatient R LESLIE CASTELLANOS [facility] [id number] [facility] 2023-11-20 15:00:00 2023-11-20 15:00:00 Outpatient P [facility] [id number] [facility] 2023-11-20 00:00:00 2023-11-20 00:00:00 Abstract Leslie Castellanos [facility] SHIPPING ASSOCIATE [facility] CHILD [facility] 1..840.114 350.1.13.10 4.2.7.2.686 [id number] 107 [id number] [facility] 2023-11-15 00:00:00 2023-11-15 00:00:00 Telephone Leslie Castellanos [facility] SHIPPING ASSOCIATE [facility] & CHILD [facility] 1..840.114 350.1.13.10 4.2.7.2.686 [id number] 107 [id number] [facility] 2023-11-14 09:45:00 2023-11-14 11:19:33 Initial Visit Leslie Castellanos Brenda A [facility] SHIPPING ASSOCIATE [facility] & CHILD [facility] 1.840.114 350.1.13.10 4.2.7.2.686 [id number] 107 [id number] [facility] 2023-11-14 09:15:00 2023-11-14 09:46:54 Outpatient R CARLA VAUGHN [facility] [id number] [facility] 2023-11-11 21:41:00 2023-11-11 23:50:00 Emergency X ARNOLD BLUM [facility] ERT [id number] [facility] 2023-11-11 21:41:00 2023-11-11 23:50:00 Emergency Arnold Blum [facility] 1..840.114 350.1.13.10 4.2.7.2.686 [id number] [facility] 2023-11-04 10:36:00 2023-11-04 13:26:00 Emergency X Lawson COCHRAN [facility] ERT [id number] [facility] 2023-11-01 00:00:00 2023-11-01 00:00:00 Telephone Sydney Lubin [facility] 1..840.114 350.1.13.10 4.2.7.2.686 [id number] [facility] 2023-10-31 08:00:00 2023-10-31 08:00:00 Outpatient R [facility] [id number] [facility] 2023-10-30 00:00:00 2023-10-30 00:00:00 Outpatient Raju_P MMG MMG [id number] [facility] 2023-10-28 13:45:00 2023-10-28 13:45:00 Outpatient R THIENMAXANGELLESLIE [facility] [id number] [facility] 2023-10-28 13:15:00 2023-10-28 13:15:00 Outpatient R [facility] [id number] [facility] 2023-10-24 11:40:00 2023-10-24 16:53:00 Emergency X NACHO NGUYEN [facility] ERT [id number] [facility] 2023-10-24 11:40:00 2023-10-24 16:53:00 Emergency Nacho Nguyen [facility] 1..840.114 350.1.13.10 4.2.7.2.686 [id number] [facility] 2023-10-24 00:00:00 2023-10-24 00:00:00 Telephone Pgy3 [facility] 1..840.114 350.1.13.10 4.2.7.2.686 [id number] [facility] 2023-09-17 00:00:00 2023-09-17 00:00:00 Outpatient R SYDNEY LUBIN [facility] [id number] [facility] 2023-09-13 10:00:00 2023-09-13 10:00:00 Outpatient R BRUNA ARRINGTON ASHLEY [facility] [id number] [facility] 2023-09-02 00:00:00 2023-09-02 00:00:00 Outpatient SYDNEY GAXIOLA [facility] [id number] [facility] 2023-08-23 00:00:00 2023-08-23 00:00:00 Patient Secure Msg Doctor Unassigned, Wanda [facility] 1..840.114 350.1.13.10 4.2.7.2.686 [id number] [facility] 2023-08-20 14:30:00 2023-08-20 15:39:40 Outpatient R SYDNEY LUBIN [facility] [id number] [facility] 2023-08-20 14:30:00 2023-08-20 15:39:40 Office Visit Pgy2 [facility] 1..114 350.1.13.10 4.2.7.2.686 [id number] [facility] 2023-08-13 00:00:00 2023-08-13 00:00:00 [facility] 350.1.13.10 4.2.7.2.686 [id number] 113 [id number] [facility] 2023-07-18 08:30:00 2023-07-18 08:30:00 Outpatient R ELIZA OLIVIER [facility] [id number] [facility] 2023-04-24 10:13:00 2023-04-24 12:05:00 Emergency X RAHEL DICKSON [facility] ERT [id number] [facility] 2023-04-24 10:13:00 2023-04-24 12:05:00 Emergency Dickson Rahel [facility] ..114 350.1.13.10 4.2.7.2.686 [id number] [facility] 2023-04-18 11:00:00 2023-04-18 11:09:48 Outpatient R ELIZA OLIVIER [facility] [id number] [facility] 2023-04-18 11:00:00 2023-04-18 11:09:48 Office Visit Eliza Olivier [facility] 1..114 350.1.13.10 4.2.7.2.686 [id number] [facility] 2023-04-04 00:00:00 2023-04-04 00:00:00 Telephone Eliza Olivier [facility] 1.2.840.114 350.1.13.10 4.2.7.2.686 [id number] [facility] 2023-04-01 13:53:27 2023-04-01 23:59:00 Outpatient R ELIZA OLIVIER [facility] [id number] [facility] 2023-04-01 13:45:00 2023-04-01 23:59:00 Hospital Encounter Eliza Olivier [facility] 1.2.840.114 350.1.13.10 4.2.7.2.686 [id number] [facility] 2023-04-01 13:30:00 2023-04-01 13:36:46 Planning Division Superintendent Visit 2, Adc Lab Eliza Olivier [facility] 1.2.840.114 350.1.13.10 4.2.7.2.686 [id number] [facility] 2023-04-01 13:00:00 2023-04-01 13:28:27 Office Visit Eliza Olivier [facility] 1.2.840.114 350.1.13.10 4.2.7.2.686 [id number] [facility] 2023-03-14 11:00:00 2023-03-14 11:00:00 Outpatient R ELIZA OLIVIER [facility] [id number] [facility] 2023-03-09 00:00:00 2023-03-09 00:00:00 Refill Carlos Olivierssica [facility] 1.2.840.114 350.1.13.10 4.2.7.2.686 [id number] [facility] 2023-02-14 10:00:00 2023-02-14 10:27:33 Outpatient R DELMY OLIVIERICA [facility] [id number] [facility] 2023-02-14 10:00:00 2023-02-14 10:27:33 [facility] 1.2.840.114 350.1.13.10 4.2.7.2.686 [id number] [facility] 2023-01-23 14:30:00 2023-01-23 14:30:00 Outpatient R LESLIE CASTELLANOS [facility] [id number] [facility] 2023-01-10 00:00:00 2023-01-10 00:00:00 Outpatient R ELIZA OLIVIER [facility] [id number] [facility] 2023-01-04 00:00:00 2023-01-04 00:00:00 Telephone Leslie Castellanos [facility] SHIPPING ASSOCIATE [facility] & [facility] 1..840.114 350.1.13.10 4.2.7.2.686 [id number] 107 [id number] [facility] 2023-01-03 10:15:00 2023-01-03 10:30:00 Planning Division Superintendent Visit 2, Adc Lab Carlos Olivierssica [facility] 1.2.840.114 350.1.13.10 4.2.7.2.686 [id number] [facility] 2023-01-03 09:30:00 2023-01-03 10:13:42 Outpatient R DELMY OLIVIERICA [facility] [id number] [facility] 2023-01-03 09:30:00 2023-01-03 10:13:42 Office [facility] 1..840.114 350.1.13.10 4.2.7.2.686 [id number] [facility] 2023-01-03 00:00:00 2023-01-03 00:00:00 Telephone Leslie Castellanos [facility] SHIPPING ASSOCIATE [facility] MATER[facility] & CHILD [facility] 1..840.114 350.1.13.10 4.2.7.2.686 [id number] 107 [id number] [facility] 2023-01-01 15:15:00 2023-01-01 15:15:00 Outpatient R LESLIE CASTELLANOS [facility] [id number] [facility] 2023-01-01 08:30:00 2023-01-01 08:30:00 Outpatient R ELIZA OLIVIER [facility] [id number] [facility] 2022-12-27 19:33:00 2022-12-27 21:29:00 Emergency X YAW BRO [facility] ERT [id number] [facility] 2022-12-27 19:33:00 2022-12-27 21:29:00 Emergency Yaw Bro [facility] 1.840.114 350.1.13.10 4.2.7.2.686 [id number] [facility] 2022-12-27 19:00:00 2022-12-27 19:20:00 Nurse [facility], [facility] 1..840.114 350.1.13.10 4.2.7.2.686 [id number] [facility] 2022-12-27 19:00:00 2022-12-27 19:00:00 Outpatient R UNKNOWN, ATTENDING [facility] [id number] [facility] 2022-12-27 19:00:00 2022-12-27 19:00:00 Outpatient R BAILEE LIZ [facility] [id number] [facility] 2022-12-25 00:00:00 2022-12-25 00:00:00 Telephone Leslie Castellanos [facility] SHIPPING ASSOCIATE [facility] & CHILD [facility] ..114 350.1.13.10 4.2.7.2.686 [id number] 107 [id number] [facility] 2022-12-20 10:00:00 2022-12-20 10:58:56 Outpatient R LESLIE CASTELLANOS [facility] [id number] [facility] 2022-12-20 10:00:00 2022-12-20 10:58:56 Office Visit Leslie Castellanos [facility] SHIPPING ASSOCIATE [facility] & CHILD [facility] ..114 350.1.13.10 4.2.7.2.686 [id number] 107 [id number] [facility] 2022-12-20 00:00:00 2022-12-20 00:00:00 Orders Only Doctor Unassigned, Wanda [facility] ..114 350.1.13.10 4.2.7.2.686 [id number] [facility] 2022-09-24 00:00:00 2022-09-24 00:00:00 Case Management Carla Vaughn [facility] ..114 350.1.13.10 4.2.7.2.686 [id number] 107 [id number] [facility] 2022-09-21 09:30:00 2022-09-21 10:18:05 Outpatient R CARLA VAUGHN [facility] [id number] [facility] 2022-09-21 09:30:00 2022-09-21 10:18:05 Office Visit [facility] SHIPPING ASSOCIATE [facility] & CHILD [facility] 1.0.114 350.1.13.10 4.2.7.2.686 [id number] 107 [id number] [facility] 2022-09-21 00:00:00 2022-09-21 00:00:00 Letter (Out) Carla Vaughn [facility] SHIPPING ASSOCIATE [facility] & CHILD [facility] 1..840.114 350.1.13.10 4.2.7.2.686 [id number] 107 [id number] [facility] 2022-09-07 08:30:00 2022-09-07 08:30:00 Outpatient R ROSALES CHAPIN EMILY [facility] [id number] [facility] 2022 13:40:00 2022 13:40:00 Outpatient R MELINDA WHITING [facility] [id number] [facility] 2022-02-15 09:00:00 2022-02-15 09:18:29 Office Visit Jacob Barrientos [facility] SHIPPING ASSOCIATE [facility] & CHILD [facility] 1..840.114 350.1.13.10 4.2.7.2.686 [id number] 107 [id number] [facility] 2022-02-15 09:00:00 2022-02-15 09:18:29 Outpatient JACOB BAUTISTA [facility] [id number] [facility] 2022-02-15 09:00:00 2022-02-15 09:00:00 Outpatient JACOB BAUTISTA [facility] [id number] [facility] 2022-02-15 09:00:00 2022-02-15 09:00:00 Outpatient JACOB BAUTISTA [facility] [id number] [facility] 2022-01-12 00:00:00 2022-01-12 00:00:00 Telephone Jacob Barrientos [facility] SHIPPING ASSOCIATE [facility] & CHILD [facility] 1.2.840.114 350.1.13.10 4.2.7.2.686 [id number] 107 [id number] [facility] 2022-01-11 15:15:00 2022-01-11 16:08:32 Office Visit Jacob Barrientos [facility] SHIPPING ASSOCIATE [facility] MATER[facility] & CHILD [facility] 1..840.114 350.1.13.10 4.2.7.2.686 [id number] 107 [id number] [facility] 2022-01-11 15:15:00 2022-01-11 16:08:32 Outpatient R JACOB BARRIENTOS [facility] [id number] [facility] 2022-01-11 15:15:00 2022-01-11 15:15:00 Outpatient R JACOB BARRIENTOS [facility] [id number] [facility] 2021-11-16 10:30:00 2021-11-16 10:30:00 Outpatient R [facility] [id number] [facility] 2021-11-16 08:00:00 2021-11-16 08:20:47 Outpatient R JACOB BARRIENTOS [facility] [id number] [facility] 2021-11-16 08:00:00 2021-11-16 08:20:47 Nurse Visit Visit, Ang-Rmchp Nurse aJcob Barrientos [facility] SHIPPING ASSOCIATE [facility] & CHILD [facility] 1..840.114 350.1.13.10 4.2.7.2.686 [id number] 107 [id number] [facility] 2021-11-03 00:00:00 2021-11-03 00:00:00 Telephone Jacob Barrientos [facility] SHIPPING ASSOCIATE [facility] & CHILD [facility] 1..840.114 350.1.13.10 4.2.7.2.686 [id number] 107 [id number] [facility] 2021-11-02 10:30:00 2021-11-02 11:58:09 Office Visit Mary Barrientosshell Love [facility] SHIPPING ASSOCIATE [facility] MATERNAL & CHILD [facility] 1..840.114 350.1.13.10 4.2.7.2.686 [id number] 107 [id number] [facility] 2021-11-02 10:30:00 2021-11-02 11:58:09 Outpatient Ivan BARRIENTOS JACOB [facility] [id number] [facility] 2021-11-02 10:30:00 2021-11-02 11:58:09 Outpatient MARY BAUTISTASHELL [facility] [id number] [facility] 2021-11-02 10:30:00 2021-11-02 10:30:00 Outpatient MARY BAUTISTAFANYPrecious [facility] [id number] [facility] 2021-11-02 10:30:00 2021-11-02 10:30:00 Outpatient Ivan BARRIENTOS MARYCARLOS [facility] [id number] [facility] 2021-11-02 00:00:00 2021-11-02 00:00:00 Orders Only Doctor Unassigned, Wanda [facility] 1..840.114 350.1.13.10 4.2.7.2.686 [id number] [facility] 2021-10-16 19:47:00 2021-10-16 20:32:00 Emergency X ALIVIA LEE [facility] ERT [id number] [facility] 2021-10-16 19:47:00 2021-10-16 20:32:00 Emergency Alivia Lee F [facility] 1..840.114 350.1.13.10 4.2.7.2.686 [id number] [facility] 2021-08-01 08:30:00 2021-08-01 09:21:32 Outpatient Ivan JACOB BARRIENTOS [facility] [id number] [facility] 2021-08-01 08:30:00 2021-08-01 09:21:32 Office Visit Jacob Barrientos [facility] SHIPPING ASSOCIATE [facility] & CHILD [facility] 1.0.114 350.1.13.10 4.2.7.2.686 [id number] 107 [id number] [facility] 2021-08-01 00:00:00 2021-08-01 00:00:00 Orders Only Doctor Unassigned, Wanda [facility] 1.2840.114 350.1.13.10 4.2.7.2.686 [id number] [facility] 2021-07-31 00:00:00 2021-07-31 00:00:00 Telephone Jacob Barrientos [facility] SHIPPING ASSOCIATE [facility] & CHILD [facility] 1..114 350.1.13.10 4.2.7.2.686 [id number] 107 [id number] [facility] 2021-06-13 10:30:00 2021-06-13 10:58:17 Outpatient R CINDY APRAICIO [facility] [id number] [facility] 2021-06-13 10:01:19 2021-06-13 10:58:17 Office Visit Cindy Aparicio [facility] SHIPPING ASSOCIATE [facility] & CHILD [facility] 1..114 350.1.13.10 4.2.7.2.686 [id number] [facility] 2021-06-13 10:30:00 2021-06-13 10:30:00 Outpatient R CINDY APARICIO [facility] [id number] [facility] 2021-06-06 00:00:00 2021-06-06 00:00:00 Telephone Jacob Barrientos [facility] SHIPPING ASSOCIATE [facility] & CHILD [facility] 1.0.114 350.1.13.10 4.2.7.2.686 [id number] 107 [id number] [facility] 2021-04-10 10:00:00 2021-04-10 10:00:00 Outpatient R LESLIE CASTELLANOS [facility] [id number] [facility] 2021-03-31 00:00:00 2021-03-31 00:00:00 Letter (Out) Rayne Jones [facility] 1.840.114 350.1.13.10 4.2.7.2.686 [id number] [facility] 2021-03-30 12:30:00 2021-03-30 12:30:00 Outpatient R NI ALVAREZ [facility] [id number] [facility] 2020-12-30 09:29:12 2020-12-30 10:10:09 Office Visit Jacob Barrientos [facility] SHIPPING ASSOCIATE [facility] MATERNAL & CHILD [facility] 1..840.114 350.1.13.10 4.2.7.2.686 [id number] 107 [id number] [facility] 2020-12-30 09:29:12 2020-12-30 10:10:09 Office Visit Jacob Barrientos [facility] SHIPPING ASSOCIATE [facility] MATERNAL & CHILD [facility] 1.840.114 350.1.13.10 4.2.7.2.686 [id number] 107 [id number] 2020-12-30 09:30:00 2020-12-30 09:30:00 Outpatient R LESLIE CASTELLANOS [facility] [id number] [facility] 2020-12-30 08:45:00 2020-12-30 08:45:00 Outpatient R JACOB BARRIENTOS [facility] [id number] [facility] 2020-12-16 08:57:28 2020-12-16 09:27:28 Office Visit Leslie Castellanos [facility] SHIPPING ASSOCIATE [facility] MATERNAL & CHILD [facility] 1..840.114 350.1.13.10 4.2.7.2.686 [id number] 107 [id number] [facility] 2020-12-16 09:00:00 2020-12-16 09:00:00 Outpatient R LESLIE CASTELLANOS [facility] [id number] [facility] 2020-12-16 00:00:00 2020-12-16 00:00:00 Orders Only Doctor Unassigned, Wanda [facility] 1.840.114 350.1.13.10 4.2.7.2.686 [id number] [facility] 2020-12-02 00:00:00 2020-12-02 00:00:00 Telephone Leslie Castellanos [facility] SHIPPING ASSOCIATE [facility] & CHILD [facility] 1..840.114 350.1.13.10 4.2.7.2.686 [id number] [facility] 2020-11-29 15:31:01 2020-11-29 15:46:01 Nurse Visit Visit, Ang-Rmchp Nurse Jacob Barrientos [facility] SHIPPING [facility]ATE [facility]ILD [facility] 1.840.114 350.1.13.10 4.2.7.2.686 [id number] [facility] 2020-11-29 15:30:00 2020-11-29 15:30:00 Outpatient R JACOB BARRIENTOS [facility] [id number] [facility] 2020-11-29 00:00:00 2020-11-29 00:00:00 Telephone Jacob Barrientos [facility] SHIPPING ASSOCIATE [facility]ILD [facility] 1.840.114 350.1.13.10 4.2.7.2.686 [id number] [facility] 2020-11-02 10:16:29 2020-11-02 11:05:27 Office Visit Jacob Barrientos [facility] [employer] 1.0.114 350.1.13.10 4.2.7.2.686 [id number] [facility] 2020-11-02 10:15:00 2020-11-02 10:15:00 Outpatient JACOB BAUTISTA [facility] [id number] [facility] 2020-11-02 00:00:00 2020-11-02 00:00:00 Orders Only Doctor Unassigned, Wanda [facility] ..114 350.1.13.10 4.2.7.2.686 [id number] [facility] 2020-11-01 15:00:00 2020-11-01 15:00:00 Outpatient JACOB BAUTISTA [facility] [id number] [facility] 2020-11-01 00:00:00 2020-11-01 00:00:00 Patient Outreach Joel Matt [facility] ..114 350.1.13.10 4.2.7.2.686 [id number] [facility] 2020-07-13 00:00:00 2020-07-13 00:00:00 Patient Secure Msg Doctor Unassigned, Wanda MAURA COKER 1..114 350.1.13.10 4.2.7.2.686 [id number] [facility] 2020-07-04 00:00:00 2020-07-04 00:00:00 Refill Leslie Castellanos [facility] SHIPPING ASSOCIATE [facility] ..114 350.1.13.10 4.2.7.2.686 [id number] [facility] 2020-06-13 09:15:00 2020-06-13 09:15:00 Outpatient LESLIE BOWER [facility] [id number] [facility] 2020-06-13 09:15:00 2020-06-13 09:15:00 Outpatient R THIENMAXLESLIE [facility] [id number] [facility] 2020-06-01 00:00:00 2020-06-01 00:00:00 Refvince WheeleryuliaLeslie levine [facility] SH[facility] 1..114 350.1.13.10 4.2.7.2.686 [id number] [facility] 2020-05-30 00:00:00 2020-05-30 00:00:00 Refill [facility]lysiaHeatherElenaMcLaren [place] [facility] One ..114 350.1.13.10 4.2.7.2.686 [id number] [facility] 2020-05-27 10:30:00 2020-05-27 10:30:00 Outpatient R ALTHEAYULIALESLIE LEVINE [facility] [id number] [facility] 2020-05-27 10:30:00 2020-05-27 10:30:00 Outpatient R THIENMAX LESLIE [facility] [id number] [facility] 2020-05-10 11:18:40 2020-05-10 11:38:40 [facility] ..114 350.1.13.10 4.2.7.2.686 [id number] [facility] 2020-05-10 11:20:00 2020-05-10 11:20:00 Outpatient R ELENA LOPEZ [facility] [id number] [facility] 2020-05-09 00:00:00 2020-05-09 00:00:00 Jacob Cisneros [facility] SH[facility]ILD [facility] ..114 350.1.13.10 4.2.7.2.686 [id number] 107 [id number] [facility] 2020-03-31 09:26:23 2020-03-31 10:13:41 Office Visit Leslie Castellanos [facility] SHIPPING ASSOCIATE [facility] & CHILD [facility] 1.2.840.114 350.1.13.10 4.2.7.2.686 [id number] 107 [id number] [facility] 2020-03-31 09:00:00 2020-03-31 09:00:00 Outpatient R LESLIE CASTELLANOS [facility] [id number] [facility] 2020-03-11 00:00:00 2020-03-11 00:00:00 Telephone Leslie Castellanos [facility] SHIPPING ASSOCIATE [facility] CHILD [facility] 1.2840.114 350.1.13.10 4.2.7.2.686 [id number] 107 [id number] [facility] 2020-03-10 14:30:00 2020-03-10 14:30:00 Outpatient R LESLIE CASTELLANOS [facility] [id number] [facility] 2020-03-10 10:09:10 2020-03-10 11:09:52 Office Visit Leslie Castellanos [facility] SHIPPING ASSOCIATE [facility]ILD [facility] 1.2840.114 350.1.13.10 4.2.7.2.686 [id number] 107 [id number] [facility] 2020-03-07 00:00:00 2020-03-07 00:00:00 Telephone Jacob Barrientos [facility] SH[employer]PING ASSOCIATE [facility] & CHILD [facility] 1.2840.114 350.1.13.10 4.2.7.2.686 [id number] 107 [id number] [facility] 2019-12-29 13:01:04 2019-12-30 11:33:02 Initial Visit Jacob Barrientos [facility] SHIPPING ASSOCIATE [facility] & [facility]ILD [facility] 1.2.840.114 350.1.13.10 4.2.7.2.686 [id number] 107 [id number] [facility] 2019-12-30 00:00:00 2019-12-30 00:00:00 Patient Secure Msg Doctor Unassigned, Wanda [facility] SHIPPING ASSOCIATE [facility] & [facility]ILD [facility] 1.2.840.114 350.1.13.10 4.2.7.2.686 [id number] 107 [id number] [facility] 2019-12-30 00:00:00 2019-12-30 00:00:00 Patient Secure Msg Doctor Unassigned, Wanda [facility] SHIPPING ASSOCIATE [facility] & [facility]ILD [facility] 1.2.840.114 350.1.13.10 4.2.7.2.686 [id number] 107 [id number] [facility] 2019-12-29 14:04:59 2019-12-29 14:20:25 Office Visit Jacob Barrientos [facility] SHIPPING ASSOCIATE [facility]ILD [facility] 1.2840.114 350.1.13.10 4.2.7.2.686 [id number] 107 [id number] [facility] 2019-12-29 12:45:00 2019-12-29 12:45:00 Outpatient R JACOB BARRIENTOS [facility] [id number] [facility] 2019-12-15 07:30:05 2019-12-15 08:20:00 Emergency Fletcher Ramesh [facility] 1.2840.114 350.1.13.10 4.2.7.2.686 [id number] [facility] 2019-12-14 00:00:00 2019-12-14 00:00:00 Patient Secure Msg Ethel Marie [facility] SH[employer] ASSOCIATE [facility] & [facility]ILD [facility] 1.2.840.114 350.1.13.10 4.2.7.2.686 [id number] 107 [id number] [facility] 2019-11-30 08:30:00 2019-11-30 08:30:00 Outpatient R [facility] [id number] [facility] 2019-11-27 09:30:00 2019-11-27 09:30:00 Outpatient R [facility] [id number] [facility] 2019-11-26 09:00:00 2019-11-26 09:00:00 Outpatient R [facility] [id number] [facility] 2019-11-26 00:00:00 2019-11-26 00:00:00 Telephone Jacob Barrientos [facility] SHIPPING ASSOCIATE [facility] & [facility]ILD [facility] 1.2.840.114 350.1.13.10 4.2.7.2.686 [id number] 107 [id number] [facility] 2019-11-24 09:30:00 2019-11-24 09:30:00 Outpatient R LESLIE CASTELLANOS [facility] [id number] [facility] 2019-11-03 05:13:00 2019-11-03 05:13:00 Outpatient Raju_[place] [id number] [facility] 2019-10-27 00:00:00 2019-10-27 00:00:00 Patient Secure Msg Jacob Barrientos [facility] SHIPPING ASSOCIATE [facility]ILD [facility] 1.2.840.114 350.1.13.10 4.2.7.2.686 [id number] 107 [id number] [facility] 2019-10-16 10:45:40 2019-10-16 11:26:43 Office Visit Lselie Castellanos [facility] SHIPPING ASSOCIATE [facility] & CHILD [facility] 1.2.840.114 350.1.13.10 4.2.7.2.686 [id number] 107 [id number] [facility] 2019-10-16 10:45:00 2019-10-16 10:45:00 Outpatient R LESLIE CASTELLANOS [facility] [id number] [facility] 2019-10-07 12:51:31 2019-10-07 13:44:17 Office Visit Leslie Castellanos [facility] SHIPPING ASSOCIATE [facility] 1.2.840.114 350.1.13.10 4.2.7.2.686 [id number] [facility] 2019-10-07 13:00:00 2019-10-07 13:00:00 [id number] 2019-10-06 00:00:00 2019-10-06 00:00:00 Telephone Leslie Castellanos [facility] SHIPPING ASSOC[facility]ATE [facility] 1.2.840.114 350.1.13.10 4.2.7.2.686 [id number] 107 [id number] [facility] 2019-10-02 14:07:49 2019-10-02 15:15:37 Office Visit Leslie Castellanos [facility] SHIPPING ASSOCIATE [facility] & CHILD [facility] 1.2.840.114 350.1.13.10 4.2.7.2.686 [id number] [facility] 2019-08-25 09:57:53 2019-08-25 13:09:26 Office Visit Leslie Castellanos [facility] SHIPPING ASSOCIATE [facility] CH[facility] 1.2.840.114 350.1.13.10 4.2.7.2.686 [id number] 107 [id number] [facility] 2019-08-25 00:00:00 2019-08-25 00:00:00 Orders Only Doctor Unassigned, Wanda [facility] 1.2.840.114 350.1.13.10 4.2.7.2.686 [id number] [facility] 2019-08-25 00:00:00 2019-08-25 00:00:00 Letter (Out) Lelsie Castellanos [facility] SHIPPING ASSOCIATE [facility]ILD [facility] 1.2.840.114 350.1.13.10 4.2.7.2.686 [id number] [facility] 2019-03-05 22:28:42 2019-03-05 23:12:00 Emergency Alvin Pace [facility] 1.2.840.114 350.1.13.10 4.2.7.2.686 [id number] [facility] Results Test Description Test Time Test Comments Results Result Co mments Source [facility] [id number] 15:29:00* Test Item Value Reference Range Interpretation [...] POCT U APPEAR (test code = 3267) [facility] [id number] 13:59:00* Test Item Value Reference Range Interpretation [...] U APPEAR (test code = 3267) . [facility] URINALYSIS W SPECIFIC [id number] 19:51:00* Test Item Value Reference Range Interpretation [...] POCT U APPEAR (test code = 3267) [facility] Urinalysis w/o Specific Uonbmhi0879-34-68 14:37:00* Test Item Value Reference Range Interpretation [...] = 3257) Neg Negative - Negati ve [facility] Fbfi3101-56-21 14:27:00* Test Item Value Reference Range Interpretation Comme nts POCT PREG (test code = 1605) Positive On board controls acceptable with C Line (test code = 3574) Yes POCT PREG LOT # (test code = 3575) POCT PREG TEST DATE ( test code = 3576) [facility] (75525)2023-11-12 03:59:37* Test Item Value Reference Range Interpretation Comme nts NA (test code = 1045200894) 135 mmol/L 135-145 K (test code = 1479124257) 3.4 mmol/L 3.5-5.0 L CL (test code = 0805554590) 103 mmol/L 98-108 CO2 TOTAL (test code = 2579801848) 27 mmol/L 23-31 AGAP (test code = 0053726019) 5 2-16 BUN (test code = 2769930969) 7 mg/dL 7-23 GLUCOSE (test code = 8515780214) 85 mg/dL 70-110 CREATININE (test code = 2160-0) 0.44 mg/dL 0.50-1.04 L TOTAL BILI (test code = 6022335619) 0.5 mg/dL 0.1-1.1 CALCIUM (test code = 9203302948) 9.2 mg/dL 8.6-10.6 T PROTEIN (test code = 8812847726) 7.2 g/dL 6.3-8.2 ALBUMIN (test code = 2399774732) 4.1 g/dL 3.5-5.0 ALK PHOS (test code = 7981934047) 53 U/L 34-122 ALTv (test code = 1742-6) 11 U/L 5-35 AST(SGOT) (test code = 3278220528) 30 U/L 13-40 eGFR (test code = 79741-2) 140.5 mL/min/1.73m2 CKD-EPI eGFR (2020). Assuming creatinine has been stable day-to-day for at least three months, the eGFR indicates Category G1 (>= 90 mL/min/1.73 m2) Lab Interpretation (test code = 54740-2) [facility]normal [facility] 03:59:17* Test Item Value Reference Range Interpretation Comme nts LIPASE (test code = 1765022557) 83 U/L 0-220 Lab Interpretation (test cod e = 18870-8) Normal [facility] with Sfhu0844-96-96 03:46:41* Test Item Value Reference Range Interpretation [...] 34.8 g/dL 31.6-35.1 RDW-SD (test code = 55236-1) 39.0 fL 39.0-49.9 RDW-CV (test code = 788-0) 11.6 % 12.0-15.5 L PLT (test code = 777-3) 219 166-358 MPV (test code = 53131-8) 10.9 fL 9.5-12.9 NRBC/100 WBC (test code = 7490549857) 0.0 0.0-10.0 NRBC x10^3 (test code = 5725753562) See_Comment [Automated messa ge] The system which generated this result transmitted reference range: 10*3/?L. The reference range was not used to interpret this result as normal/abnormal. GRAN MAT (NEUT) % (test code = 770-8) 61.7 % IMM GRAN % (test code = 1654325345) 0.30 % LYMPH % (test code = 736-9) 28.8 % MONO % (test code = 5905-5) 5.9 % EOS % (test code = 713-8) 2.8 % BASO % (test code = 706-2) 0.5 % GRAN MAT x10^3(ANC) (test code = 4126607388) 7.80 10*3/uL 1.88-7.09 H IMM GRAN x10^3 (test code = 6444089817) 0.04 10*3/uL 0.00-0.06 LYMPH x10^3 (test code = 731-0) 3.64 10*3/uL 1.32-3.29 H MONO x10^3 (test code = 742-7) 0.74 10*3/uL 0.33-0.92 EOS x10^3 (test code = 711-2) 0.35 10*3/uL 0.03-0.39 BASO x10^3 (test code = 704-7) 0.06 10*3/uL 0.01-0.07 Lab Interpretation (test code = 57011-1) Abnormal [facility] Center[facility]ulating Zkcevzn9578-35-03 19:13:57 * Test Item Value Reference Range Interpretation Comme nts TSH (test code = 0155302860) 1.49 0.45-4.70 Lab Interpretation (test cod e = 07279-6) Normal [facility] BHCG (QUANTITATIVE)2023-10-24 19:13:26* Test Item Value Reference Range Interpretation Comme nts BETA HCG (test code = 8868141611) 656.79 See_Comment [Automated [employer] ge] The system which generated this result transmitted reference range: Non- female and male patients: <5 mIU/mL. The reference range was not used to interpret this result as normal/abnormal. VICENTE (test code = VICENTE) Gestational Age ?Range (mIU/mL) 1-10 ?Weeks ?80-77871230-55 Weeks ?29289-45080621-39 Weeks ?9212-90383360-14 Weeks ?8358-508965 Biotin has been reported to cause a negative bias, interpret results relative to patient's use of biotin. [facility]. Metabolic Panel (73224)2023-10-24 18:43:10* Test Item Value Reference Range Interpretation Comme nts NA (test code = 3362131758) 138 mmol/L 135-145 K (test code = 7426136387) 4.1 mmol/L 3.5-5.0 CL (test code = 8654814029) 105 mmol/L 98-108 CO2 TOTAL (test code = 8984459465) 26 mmol/L 23-31 AGAP (test code = 7999339630) 7 2-16 BUN (test code = 4526176596) 11 mg/dL 7-23 GLUCOSE (test code = 0755499832) 100 mg/dL 70-110 CREATININE (test code = 2160-0) 0.55 mg/dL 0.50-1.04 TOTAL BILI (test code = 7448398749) 1.1 mg/dL 0.1-1.1 CALCIUM (test code = 9026324621) 9.1 mg/dL 8.6-10.6 T PROTEIN (test code = 3047914152) 7.5 g/dL 6.3-8.2 ALBUMIN (test code = 6414429573) 4.4 g/dL 3.5-5.0 ALK PHOS (test code = 7877067687) 58 U/L 34-122 ALTv (test code = 1742-6) 16 U/L 5-35 AST(SGOT) (test code = 6594190957) 25 U/L 13-40 eGFR (test code = 64522-3) 133.1 mL/min/1.73m2 CKD-EPI eGFR (20 21). Assuming creatinine has been stable day-to-day for at least three months, the eGFR indicates Category G1 (>= 90 mL/min/1.73 m2) [facility] with Ncii4856-84-80 18:30:51* Test Item Value Reference Range Interpretation [...] 34.5 g/dL 31.6-35.1 RDW-SD (test code = 20816-4) 40.6 fL 39.0-49.9 RDW-CV (test code = 788-0) 11.9 % 12.0-15.5 L PLT (test code = 777-3) 230 166-358 MPV (test code = 30407-0) 10.7 fL 9.5-12.9 NRBC/100 WBC (test code = 6393702476) 0.0 0.0-10.0 NRBC x10^3 (test code = 6660786264) See_Comment [Automated messa ge] The system which generated this result transmitted reference range: 10*3/?L. The reference range was not used to interpret this result as normal/abnormal. GRAN MAT (NEUT) % (test code = 770-8) 64.9 % IMM GRAN % (test code = 0035585699) 0.30 % LYMPH % (test code = 736-9) 25.7 % MONO % (test code = 5905-5) 6.0 % EOS % (test code = 713-8) 2.5 % BASO % (test code = 706-2) 0.6 % GRAN MAT x10^3(ANC) (test code = 5663506284) 6.11 10*3/uL 1.88-7.09 IMM GRAN x10^3 (test code = 0922860954) 0.03 10*3/uL 0.00-0.06 LYMPH x10^3 (test code = 731-0) 2.43 10*3/uL 1.32-3.29 MONO x10^3 (test code = 742-7) 0.57 10*3/uL 0.33-0.92 EOS x10^3 (test code = 711-2) 0.24 10*3/uL 0.03-0.39 BASO x10^3 (test code = 704-7) 0.06 10*3/uL 0.01-0.07 Lab Interpretation (test code = 63740-9) [facility]normal [facility] - ONCE YRCR7204-69-24 18:27:00 * Test Item Value Reference Range Interpretation Comme nts ABO & RH (test code = 20) O POSITIVE IAT (test code = 1185) Negative [facility] MHIU4724-42-27 15:42:00* Test Item Value Reference Range Interpretation Comme nts POCT PREG (test code = 1605) Negative On board controls acceptable with C Line (test code = 3574) Yes POCT PREG LOT # (test code = 3575) 112666 POCT PREG TEST DATE ( test code = 3576) 2024-08-14 Lab Interpretation (test cod e = 24373-7) Normal [facility] IUEO0203-03-54 16:00:00* Test Item Value Reference Range Interpretation Comme nts POCT PREG (test code = 1605) Negative On board controls acceptable with C Line (test code = 3574) Yes POCT PREG LOT # (test code = 3575) POCT PREG TEST DATE ( test code = 3576) [facility] KTEX3017-15-92 16:00:00* Test Item Value Reference Range Interpretation Comme nts POCT PREG (test code = 1605) Negative On board controls acceptable with C Line (test code = 3574) Yes POCT PREG LOT # (test code = 3575) POCT PREG TEST DATE ( test code = 3576) [facility] URINALYSIS W SPECIFIC [id number] 15:11:00* Test Item Value Reference Range Interpretation [...] clear Lab Interpretation (test cod e = 20221-6) Abnormal [facility] URINALYSIS W SPECIFIC ZOQNDRW7383-76-27 15:11:00* Test Item Value Reference Range Interpretation [...] clear Lab Interpretation (test cod e = 17616-5) Abnormal [facility] BVAP4642-66-11 15:09:00* Test Item Value Reference Range Interpretation Comme nts POCT PREG (test code = 1605) Negative On board controls acceptable with C Line (test code = 3574) Yes POCT PREG LOT # (test code = 3575) POCT PREG TEST DATE ( test code = 3576) [facility] [id number] 15:09:00* Test Item Value Reference Range Interpretation Comme nts POCT PREG (test code = 1605) Negative On board controls acceptable with C Line (test code = 3574) Yes POCT PREG LOT # (test code = 3575) POCT PREG TEST DATE ( test code = 3576) [facility] [id number] 02:02:22 * Test Item Value Reference Range Interpretation Comme nts TSH (test code = 5180426467) 2.26 See_Comment [Automated messa ge] The system which generated this result transmitted reference range: 0.45 - 4.70 mIU/L. The reference range was not used to interpret this result as normal/abnormal. Lab Interpretation (test code = 99472-3) Normal [facility]. METABOLIC PANEL (28163)2022-12-28 01:32:39* Test Item Value Reference Range Interpretation Comme nts NA (test code = 7189121750) 139 mmol/L 135-145 K (test code = 0309995691) 3.4 mmol/L 3.5-5.0 L CL (test code = 3057614143) 103 mmol/L 98-108 CO2 TOTAL (test code = 6091504053) 24 mmol/L 23-31 AGAP (test code = 3471421910) 12 2-16 BUN (test code = 0647863475) 8 mg/dL 7-23 GLUCOSE (test code = 7526647088) 121 mg/dL 70-110 H CREATININE (test code = 0813557592) 0.57 mg/dL 0.50-1.04 TOTAL BILI (test code = 5218724697) 1.0 mg/dL 0.1-1.1 CALCIUM (test code = 2212680072) 9.2 mg/dL 8.6-10.6 T PROTEIN (test code = 1025683366) 6.9 g/dL 6.3-8.2 ALBUMIN (test code = 3275251577) 4.4 g/dL 3.5-5.0 ALK PHOS (test code = 2577506046) 47 U/L 34-122 ALTv (test code = 1742-6) 16 U/L 5-35 AST(SGOT) (test code = 4272836090) 22 U/L 13-40 eGFR (test code = 8515280084) 133.9 mL/min/1.73m2 VICENTE (test code = VICENTE) [...] imaging tests). Lab Interpretation (test code = 01233-5) [facility]normal [facility] 01:32:19* Test Item Value Reference Range Interpretation Comme nts LIPASE (test code = 8419892262) 67 U/L 0-220 Lab Interpretation (test cod e = 32696-3) Normal [facility] WITH [id number] 01:20:58* Test Item Value Reference Range Interpretation Comme nts WBC (test code = 6690-2) 9.89 See_Comment [Automated [employer]] The system which generated this result transmitted reference range: 4.30 - 11.10 10*3/?L. The reference range was not used to interpret this result as normal/abnormal. RBC (test code = 789-8) 4.29 See_Comment [Automated [employer]] The system which generated this result transmitted [...] 34.2 g/dL 31.6-35.1 RDW-SD (test code = 54676-1) 38.2 fL 39.0-49.9 L RDW-CV (test code = 788-0) 11.9 % 12.0-15.5 L PLT (test code = 777-3) 177 See_Comment [Automated messa ge] The system which generated this result transmitted reference range: 166 - 358 10*3/?L. The reference range was not used to interpret this result as normal/abnormal. MPV (test code = 71547-2) 11.6 fL 9.5-12.9 NRBC/100 WBC (test code = 7285179419) 0.0 See_Comment [Automated [employer]] The system which generated this result transmitted reference range: 0.0 - 10.0 /100 WBCs. The reference range was not used to interpret this result as normal/abnormal. NRBC x10^3 (test code = 1747823971) See_Comment [Automated [employer]a ge] The system which generated this result transmitted reference range: 10*3/?L. The reference range was not used to interpret this result as normal/abnormal. GRAN MAT (NEUT) % (test code = 770-8) 64.1 % IMM GRAN % (test code = 3385147826) 0.30 % LYMPH % (test code = 736-9) 28.1 % MONO % (test code = 5905-5) 5.8 % EOS % (test code = 713-8) 1.3 % BASO % (test code = 706-2) 0.4 % GRAN MAT x10^3(ANC) (test code = 2171233924) 6.34 10*3/uL 1.88-7.09 IMM GRAN x10^3 (test code = 1366470335) 0.03 10*3/uL 0.00-0.06 LYMPH x10^3 (test code = 731-0) 2.78 10*3/uL 1.32-3.29 MONO x10^3 (test code = 742-7) 0.57 10*3/uL 0.33-0.92 EOS x10^3 (test code = 711-2) 0.13 10*3/uL 0.03-0.39 BASO x10^3 (test code = 704-7) 0.04 10*3/uL 0.01-0.07 Lab Interpretation (test code = 74954-4) Abnormal [facility] [id number] 01:05:00* Test Item Value Reference Range Interpretation Comme nts POCT PREG (test code = 1605) Negative On board controls acceptable with C Line (test code = 3574) Yes POCT PREG LOT # (test code = 3575) [id number] POCT PREG TEST DATE ( test code = 3576) 2024-03-19 Lab Interpretation (test cod e = 15575-8) Normal [facility] [id number] 15:47:00* Test Item Value Reference Range Interpretation Comme nts POCT PREG (test code = 1605) Negative On board controls acceptable with C Line (test code = 3574) Yes POCT PREG LOT # (test code = 3575) POCT PREG TEST DATE ( test code = 3576) [facility] ZODI6818-67-32 15:47:00* Test Item Value Reference Range Interpretation Comme nts POCT PREG (test code = 1605) Negative On board controls acceptable with C Line (test code = 3574) Yes POCT PREG LOT # (test code = 3575) POCT PREG TEST DATE ( test code = 3576) [facility] Notes Date/Time Note Provider Source 2024-01-24 23:52:29 4610-64-94M16:52:29F ormatting of this note might be different from the original.Patient arrived ambulatory to ED c/o abd cramping and lower back pain that woke her up tonight. First . Dr. Sparks. 18 weeks 2 days. 40168-1Znqwekvkl department Triage znleRU2343-64-58V67:56:29[facility] Triage noteTXT1.2.840.369849.1.13.104.2.7 .2.402239|[id number] for patient dfrw70373-5Nyhgrzwty department NoteLNNARRATIVEFormatted C-CDA narrative [id number]-Albyw McInnis RNUT[id number] 88HGDNHIBDVMZJIJUAPJOUUJ7787-62-63 T23:56:291.2.840.423679.1.72.3.15| 1.2.840.032291.1.13.104.2.7.2.7278 [id number] Ar Russell RN [facility] 2023-12-31 16:06:43 3083-18-43C01:06:43F ormatting of this note might be different from the original.Called pt, discussed lab results and poc. Pt verbalized understanding.Ethel Peterson RN 12/31/23 4:07 PM 20666-5Lkfmvbslp encounter YhqaMG0030-08-60J61:07:58Telephone encounter NoteTXT1.2.840.490848.1.13.104.2.7 .2.692058|[id number] for patient teqw21865-1IfzcMUGOHLLCOMBUlprexfp d C-CDA narrative text[id number] 37ZEFDORIWMCGCENPGSOGHXN6624-10-48 T16:07:581.2.840.899737.1.72.3.15| 1.2.840.542687.1.13.104.2.7.2.7278 [id number] [facility] 2023-12-31 15:56:38 8863-34-93N80:56:38F ormatting of this note might be different from the original.Called pt, no answer. Left vm.Ethel Peterson RN 12/31/23 3:56 PM 40957-4Ozzadnxwo encounter PttoJO5432-68-06S31:56:48Telephone encounter NoteTXT1.2.840.955062.1.13.104.2.7 .2.325771|[id number] for patient vlkg42798-1LjtqPBECTSLFXGTCqqfmvqc d C-CDA narrative textBlack [id number] 70EYEAIWTRENTKGSVMVAMBVC9805-40-88 T15:56:481.2.840.679018.1.72.3.15| 1.2.840.870579.1.13.104.2.7.2.7278 [id number] [facility] 2023-12-31 15:56:07 6342-36-79Q41:56:07F ormatting of this note might be different from the original.Duplicate encounter.Ethel Peterson RN 12/31/23 3:56 PM 58909-1Mzqsyvqsi encounter DcvhGB1276-24-80P31:56:17Telephone encounter NoteTXT1.2.840.932746.1.13.104.2.7 .2.208474|[id number] for patient ozum27465-0BpbfIGHSEQAJHXWBrvzzshu d C-CDA narrative textBlack [employer]fuels36 [id number] 53GPXZSUTPLQIMFLFSOUQIPF7062-61-58 T15:56:171.2.840.689352.1.72.3.15| 1.2.840.016951.1.13.104.2.7.2.7278 [id number] [facility] 2023-12-31 13:42:57 8375-02-96J85:42:57F ormatting of this note might be different from the original.Results call 41642-6Hdiephuyv encounter MgmbHJ2574-93-52S70:43:39Telephone encounter NoteTXT1.2.840.999643.1.13.104.2.7 .2.613822|[id number] for patient ymfe03676-7TstgNEUVGTHMWDCOtcpdatv d C-CDA narrative [id number] P Robinson[id number] 83AQQCZVHAQXUMHBPKNIYESP7166-09-28 T13:43:391.2.840.698048.1.72.3.15| 1.2.840.495948.1.13.104.2.7.2.7278 [id number] Andriy Godinez [facility] 2023-12-31 13:37:52 7812-31-08R55:37:52F ormatting of this note might be different from the original.Please advise pt her beta is trending up, heart tones was ausculted on her last visit, her hepatic function labs are wnl. Please advise her on good moisturizing body cream, ie anni butter, Eucerin cream, aveeno creamSHONA Gillis 12/31/2023 1:40 PM 35668-2Cikrzepsn encounter FuscGK6151-23-54K72:41:30Telephone encounter NoteTXT1.2.840.333928.1.13.104.2.7 .2.548128|[id number] for patient xlwy51760-7QkumIOYHQTMHKDHWgjbqugd d C-CDA narrative textUTMBUT75 Norris StreetTXTX[address] 28GPLAIIGJLNMSOPFMTAETIQ1792-40-28 T13:41:301.2.840.997948.1.72.3.15| 1.2.840.516537.1.13.104.2.7.2.7278 [id number] [facility] 2023-12-25 15:44:45 3879-09-86F57:44:45F ormatting of this note might be different from the original.Consult/referral SHONA Deleon 12/25/2023 3:44 PM 63186-7Hmuddghxk encounter BfdgKA5199-26-92Z30:45:03Telephone encounter NoteTXT1.2.840.110135.1.13.104.2.7 .2.717879|[id number] for patient ekbh28122-9MmhmBPZHSCAZGMNMmdrhpal d C-CDA narrative textUT[address] StreetTXTX[address]75 94IBPEGXIEUENODWMCYKADGL0041-16-00 T15:45:031.2.840.417980.1.72.3.15| 1.2.840.455994.1.13.104.2.7.2.7278 [id number] [facility] 2023-12-25 11:31:55 2830-98-31T91:31:55F ormatting of this note might be different from the original.Called pt, pt having depression in the . Pt has been evaluated by provider and now desires medications. Routed to provider for poc.Ethel Peterson RN 12/25/23 11:33 AM 00982-2Bfxakfmtw encounter QvjwYS8508-86-48Z29:34:58Telephone encounter NoteTXT1.2.840.819649.1.13.104.2.7 .2.572745|7561933826GPYbswnhgxc for patient mleu38323-6IvayRVETZGPGOPCTrdneywt d C-CDA narrative text[address]TXTX[address] 02UONCTRSELPWEUZRMUUQTBB4671-62-14 T11:34:581.2.840.414537.1.72.3.15| 1.2.840.925988.1.13.104.2.7.2.7278 [id number] [facility] 2023-12-25 11:13:22 7769-60-52H31:13:22F ormatting of this note might be different from the original.Copied from [facility] #[id number]. Topic: Clinical - Medical Advice>> December 25, 2023 11:10 AM Patient Social Worker wrote:Maylin Zuniga is a 23 year old femalePt wants to know if she can be prescribed antidepressants. Pt was on VENLAFAXINE XR 37.5 mg and wants to know if that is safe to take while Please call pt at [phone] (home)[facility]/pharmacy #[address] [place] [address] - [facility] [address] [facility] [address] WAY STREETPhone: Ebsgkmpahdyfxx signed by Eugenie Ngo at 12/25/2023 11:15 AM UFE07077-8Fbvoawlkf encounter GlxhQK4779-35-80Q62:15:19Telephone encounter NoteTXT1.2.840.599647.1.13.104.2.7 .2.781289|[id number] for patient wsbk51006-3MyyuQWWDUXKGPQRCfhsuthc d C-CDA narrative [id number] A CloydUT[address]TXTX[address] 83HDXSPQTRGRFJLJWQSSVFEE4647-64-15 T11:15:191.2.840.282737.1.72.3.15| 1.2.840.575475.1.13.104.2.7.2.7278 [id number] Eugenie Ngo [facility] 2023-11-27 16:21:49 7378-09-52O30:21:49F ormatting of this note might be different from the original.Called pt, discussed pap results and POC. Pt verbalized understanding.Ethel Peterson RN 11/27/23 4:21 PM 45580-4Ltkynhdxa encounter SqtdLI5468-97-89B55:24:37Telephone encounter NoteTXT1.2.840.798135.1.13.104.2.7 .2.176299|[id number] for patient dvrc69457-1DqoqBYQYEVTYAOVGgenikvu d C-CDA narrative textUT[address] XopmVhucmcqacZilmefvdnDIHX66266874 61FZTFMAYVLESIDUQHPHOBES4826-83-26 T16:24:371.2.840.893724.1.72.3.15| 1.2.840.762759.1.13.104.2.7.2.7278 79_[id number] [facility] 2023-11-27 16:17:08 9908-36-81A68:17:08F ormatting of this note might be different from the original.Copied from [facility] #[id number]. Topic: Customer Service - Missed Call from Provider>> Nov 27, 2023 4:16 PM Patient Social Worker wrote:Patient returned missed call from nurse 01881-6Mylpyyjyd encounter HdzcGJ2025-53-35W43:17:32Telephone encounter NoteTXT1.2.840.120454.1.13.104.2.7 .2.335598|[id number] for patient kioa22881-1SxnwQQWIBKYGJLTDzrhphqk d C-CDA narrative wcya425010388Dlxyttszt L [address] 41XCPUCJBYOORLTBGKKDQRXQ7782-31-86 T16:17:321.2.840.315177.1.72.3.15| 1.2.840.944146.1.13.104.2.7.2.7278 79_[id number] Avelina Crandall [facility] 2023-11-27 16:02:18 4095-06-08I42:02:18F ormatting of this note might be different from the original.Called pt, no answer. Left vm.Ethel Peterson RN 11/27/23 4:02 PM 32620-0Hsnyjqzvd encounter PfmkSL4489-54-17A50:02:34Telephone encounter NoteTXT1.2.840.079301.1.13.104.2.7 .2.917907|[id number] for patient izxh56862-8GftpBWZCXLGYWLNAkldgnqt d C-CDA narrative [address] 14YFBVVWZSKZBHIGXUOVFCLS7204-75-74 T16:02:341.2.840.436682.1.72.3.15| 1.2.840.753773.1.13.104.2.7.2.7278 79_[id number] [facility] 2023-11-27 15:55:44 2454-25-21B97:55:44F ormatting of this note might be different from the original.LGSIL pap will need repeat pap in 1 yearSHONA Gillis 11/27/2023 3:56 PM 64576-5Vonvbcsyb encounter XrszHF0886-51-29S12:56:34Telephone encounter NoteTXT1.2.840.868416.1.13.104.2.7 .2.294489|[id number] for patient iddq42528-7AcjbVYOQHFFPUZFRgxoqbhp d C-CDA narrative [address] 45JDHCPDOMJUZHINFKUZYTKX2632-61-53 T15:56:341.2.840.038166.1.72.3.15| 1.2.840.938003.1.13.104.2.7.2.7278 79_[id number] [facility] 2023-11-15 14:57:53 6113-19-35W46:57:53F ormatting of this note might be different from the original.Called pt, discussed lab results. Pt signed ROR for usg, advised provider will FU with poc once she receives the report. Pt verbalized understanding.Ethel Peterson RN 11/15/23 2:58 PM 13992-5Zwlvuawlt encounter QwcaDR9792-75-11B74:58:44Telephone encounter NoteTXT1.2.840.760062.1.13.104.2.7 .2.569431|[id number] for patient mqpl35668-8EszpZJGAQLTDLUNWtzzuwfe d C-CDA narrative [address]on[address]TX[address] 58JBAMHPQGKWPTVBHPKJHXOK9642-83-82 T14:58:441.2.840.852794.1.72.3.15| 1.2.840.887812.1.13.104.2.7.2.7278 79_[id number] [facility] 2023-11-15 11:31:30 9796-55-28X88:31:30F ormatting of this note might be different from the original.Maylin Zuniga is a 23 year old femalePt is calling to notify provider that she has ovarian cyst results received from her previous provider and pt is requesting to discuss most recent lab results. Pt is 8wks . Please contact pt at [phone]. 46407-4Jjjsflynt encounter GswuBM3895-51-75R40:32:40Telephone encounter NoteTXT1.2.840.381120.1.13.104.2.7 .2.813166|3551518680SFJmakugmir for patient xbkf82140-6XexiYZAIHPAIOUZLlkbljti d C-CDA narrative vsiy85889098Savopr [address] NiwvNmwffzgfuYyxnshrpwMSFN22549253 98KALQAUSVTWIBRSOLUIODUR8877-12-86 T11:32:401.2.840.841519.1.72.3.15| 1.2.840.295990.1.13.104.2.7.2.7278 [id number] Hector Carver [facility] 2023-11-11 23:49:53 7154-91-20U67:49:53F ormatting of this note might be different from the original.Pt given printed and verbal discharge instructions regarding [...] with steady gait, in no apparent distress 87411-8Dhbwmcadu department PcfiBH7445-56-92V44:50:38[facility] NoteTXT1.2.840.443668.1.13.104.2.7 .2.804812|[id number] for patient owrl60029-0NickMQZZDVYEUGLBzfswbat d C-CDA narrative bogn877771391Vhmajmm Precious Darren RN[address]TXTX[address] 76GLZLYPPTOKOSRMPLZPFJFX4110-56-85 T23:50:381.2.840.977633.1.72.3.15| 1.2.840.766614.1.13.104.2.7.2.7278 79_[id number] Keli Banks RN [facility] 2023-11-11 23:24:06 0092-52-60W30:24:06F ormatting of this note might be different from the original.Ice chips given 35232-3Lptlwpkje department FtdkKB6268-92-46O31:24:17[facility] NoteTXT1.2.840.755905.1.13.104.2.7 .2.486283|[id number] for patient sqvc16171-1HtnvTHIMYAESFSQQbfliigl d C-CDA narrative rtkl312204072QtfqmAnabela Carson RN[address]TXTX[address] 66VKWHHWCKZXZEIHZQOPXYLH9275-01-08 T23:24:171.2.840.138884.1.72.3.15| 1.2.840.284992.1.13.104.2.7.2.7278 79_[id number] Anabela Carson RN [facility] 2023-11-11 22:30:00 9158-21-53K23:30:00F ormatting of this note might be different from the original.Ice chips given 50507-9Atjwrndab department TsijNI9552-75-44U21:44:11[facility] NoteTXT1.2.840.703421.1.13.104.2.7 .2.614955|[id number] for patient eyjb61288-0UbpkHBRSCZKENBTLfjduubq d C-CDA narrative text[address]TXTX[address] 53LOOXSSEAYCIFQRBATNMOXF5979-43-85 T22:44:111.2.840.749096.1.72.3.15| 1.2.840.557970.1.13.104.2.7.2.7278 79_[id number] [facility] 2023-11-11 21:43:20 2569-62-83F79:43:20F ormatting of this note might be different from the original.CC: Pt reports "I can't keep anything down" She ran out of zofran and is using preggie pops? Pt is 7 wks Awake, alert, oriented, resp reg unlabored, skin warm, color appropriate for race, moves all ext without difficulty, amb with steady gait 86439-3Twxmrckea department Triage mwpvLV8678-80-94V74:44:20[facility] department Triage noteTXT1.2.840.439762.1.13.104.2.7 .2.647183|[id number] for patient wbbm03438-6Shcjugwwx department NoteLNNARRATIVEFormatted C-CDA narrative qzlz856653908Mghwjm R Shehadeh RNUT[address] StreetTXTX[address] 15IELJRWWMHQAIBHVZAOAIXP3171-58-70 T21:44:201.2.840.595511.1.72.3.15| 1.2.840.410153.1.13.104.2.7.2.7278 79_[id number] Alisia Guzman RN [facility] 2023-11-01 15:42:51 7425-13-29Z04:42:51F ormatting of this note might be different from the original.Maylin Zuniga is a 23 year old femalePt is calling requesting to speak with Rajwinder at clinic to continue conversation regarding insurance questions. Pt connected w/ clinic Pss. 94469-3Crwizudjn encounter SzhsLI7053-50-44A82:43:27Telephone encounter NoteTXT1.2.840.122867.1.13.104.2.7 .2.492000|[id number] for patient wtqq62747-8GlctXWXCBBEJAXKBogcdduf d C-CDA narrative ohrv25774741Msmwdw[address] QwnkScpqocmvpVqbzmcnwvSEDL75150802 96RLKJJCYDGAMNDKHBZJGNPM0173-84-32 T15:43:271.2.840.657774.1.72.3.15| 1.2.840.496438.1.13.104.2.7.2.7278 79_[id number] Hector Carver [facility] 2023-10-24 16:52:17 1316-09-01F65:52:17F ormatting of this note might be different from the original.Patient states that she is tired and hungry and is ready to leave. States "I just had the trans vag but I don't want to wait for the results, she said it would be an hour. My levels looked Ok so I'm just going to leave". AMA form signed, IV removed and patient left the department. 62698-3Cftrxlsqa department OxbqBX4144-71-17T09:53:11Emergency department NoteTXT1.2.840.903342.1.13.104.2.7 .2.923292|[id number] for patient zrod80509-4MmkxKTQGDNLSOYEDaziwirc d C-CDA narrative text[address]TX[address] 15VFEYJMJOJBVOQSRQSXNWLT5045-84-87 T16:53:111.2.840.199952.1.72.3.15| 1.2.840.757204.1.13.104.2.7.2.7278 79_[id number] [facility] 2023-10-24 15:47:36 4818-33-89A02:47:36F ormatting of this note might be different from the original.Pt being evaluated in ER at this time. 23292-9Thszvpktv encounter WzeqDL1484-14-76V17:47:47Telephone encounter NoteTXT1.2.840.161171.1.13.104.2.7 .2.437868|[id number] for patient imek45157-0WdckHRGICJCTUUQAxgztrzs d C-CDA narrative jffq535027969Vzyoobow Garcia [address]TX[address] 57WNFEFXACOOUDOYVLTHIZLJ0744-31-84 T15:47:471.2.840.392401.1.72.3.15| 1.2.840.798610.1.13.104.2.7.2.7278 79_[id number] Francine Aparicio LVN [facility] 2023-10-24 14:46:48 1482-99-72M57:46:48F ormatting of this note might be different from the original.Maylin Zuniga is a 23 year old femalePt is calling to speak with a nurse to see if she is ok to take her VENLAFAXINE XR 37.5 mg 24 hr capsule while . Pt has not been taking the medication and is biting skin and [place] [address]-9Nuiwlrcfh encounter PyqnOV4111-15-13O15:50:37Telephone encounter NoteTXT1.2.840.483665.1.13.104.2.7 .2.280198|2605955538LCWqlbacrei for patient voqf16339-3QdehKGITLATTDPIEnlpwqhn d C-CDA narrative ubdz023264495Zgjhwf P Robinson[address]TXTX[address] 97NFGLXOUMRDGAJCZIXNPTTM1982-90-19 T14:50:371.2.840.600636.1.72.3.15| 1.2.840.284075.1.13.104.2.7.2.7278 79_[id number] Andriy Godinez [facility] 2023-10-24 11:37:27 0843-23-41W36:37:27F ormatting of this note might be different from the original.Patient reports being 6 weeks and began cramping this AM with no discharge. Patient has not had first appointment yet with OB which is scheduled for the . D3Hecntexxtvddex signed by Manda Harrell RN at 10/24/2023 11:38 AM ZKM91464-8Thpqddxad department Triage gbgoPS5270-79-61L75:38:44Emergency department Triage noteTXT1.2.840.139018.1.13.104.2.7 .2.638396|3556021304IWHiekqodfs for patient abbn83873-1Zlfltipyz department NoteLNNARRATIVEFormatted C-CDA narrative vzla573731589Zbta M Hayes RN[address]TXTX[address] 80GNQSQOFSYFGWVGCZNWRLGS2423-71-41 T11:38:441.2.840.295049.1.72.3.15| 1.2.840.920253.1.13.104.2.7.2.7278 79_[id number] Manda Harrell RN [facility] 2023-08-13 11:31:01 2010-13-10R50:31:01F ormatting of this note might be different from the original.Maylin Zuniga is a 23 year old femaleovarian cysts on one or two ovaries x AprilPatient called to schedule appt with PGY.Please contact pt at [phone] (home) 86430-3Eecddgndt encounter RyzkJH7459-81-72U84:31:38Telephone encounter NoteTXT1.2.840.563803.1.13.104.2.7 .2.942436|2082381317FAIynyuojqj for patient sqhi01304-9IylfWEHAUOCVBMEItejybyc d C-CDA narrative yfvt165926324Tldrslswx L [address] WwtiFftmkwodlOqggwrktuLKFB75804415 91YUWFBNMMJQTOWHUQWRFZSJ0816-55-65 T11:31:381.2.840.921598.1.72.3.15| 1.2.840.894542.1.13.104.2.7.2.7278 79_[id number] Avelina Johnson [facility] 2023-04-24 12:05:28 4410-40-90B34:05:28F ormatting of this note might be different from the original.Pt left before obtaining discharge paperwork. 28364-4Ocgiguwqi department QaisRF7803-24-29B32:05:42Emergency department NoteTXT1.2.840.649277.1.13.104.2.7 .2.020858|5578791358VSJwpxwrpkb for patient xgta92847-2BkkyVV091366320Iopxdyh Fief RNUT[address]TXTX[address] 53QVOXIXFBXERTVANUGCSORF9081-60-03 T12:05:421.2.840.693704.1.72.3.15| 1.2.840.973754.1.13.104.2.7.2.7278 79_[id number] Anne Freemanwon WISE [facility] 2023-04-24 10:09:17 4947-45-77U93:09:17F ormatting of this note might be different from the original.Patient states "I have one positive test and one negative test for . So I just wanted to make sure."Patient here for confirmation. 10449-8Nluytzmiu department Triage dhioHL0715-13-33H94:09:58[facility] Triage noteTXT1.2.840.767628.1.13.104.2.7 .2.643343|6372783376FCZfrwcepfa for patient dhak63251-3Uosaqphkn department HtngMP887276723Gsdxr S Cryer RN[address]TXTX[address] 14FIVRIWLWEDLEJPMBYNTUNJ7255-89-53 T10:09:581.2.840.574609.1.72.3.15| 1.2.840.104645.1.13.104.2.7.2.7278 79_[id number] Amanda Hoang RN [facility] 2023-04-08 08:38:40 0865-75-03F28:38:40F ormatting of this note might be different from the original.Spoke with patient, verbalized understanding medication is at the pharmacy. 76675-5Oerncfvpq encounter OsyhHG8309-29-40D61:40:04Telephone encounter NoteTXT1.2.840.293026.1.13.104.2.7 .2.588008|1282275111MILhqrgfnyv for patient nwxx11128-2KfolCI814532998Xhcggu Karley Alonso RNUT[address]veston[place] 04WDGLBKHTDKKNONHPUTNFOJ5965-10-19 T08:40:041.2.840.612757.1.72.3.15| 1.2.840.909345.1.13.104.2.7.2.7278 79_[id number] Nora Alonso RN [facility] 2023-04-04 16:31:40 5560-88-55P57:31:40F ormatting of this note might be different from the original.I have sent nausea medications to the pharmacyPlease let patient know 96447-0Hakzgbtsq encounter JebeOX2878-56-13V98:32:32Telephone encounter NoteTXT1.2.840.788243.1.13.104.2.7 .2.278917|2408519988ZJEgmhzewnx for patient cxxa39328-7GyeuFIXKYFRNWD[address]TXTX[address] 42TLXVGUATVLZMTJTUSQHWQS2782-89-86 T16:32:321.2.840.369952.1.72.3.15| 1.2.840.778255.1.13.104.2.7.2.7278 79_[id number] [facility] 2023-04-01 13:30:00 3469-57-45Z07:30:00F ormatting of this note is different from the original.Images from the original note were not included.Venipuncture collection performed by clean technique on the left anticubitus. Total of 1 attempts were made. Slight pressure and a bandage/dressing were applied to the site(s). The patient experienced no complications. The following specimens were processed according to instructions and sent to [facility] laboratories per lab order on 04/01/2023: LT BLUE SST 3 RED LAV 1 PPT DK GREEN (LiHep) DK GREEN (SodH) KRISHNAN DK BLUE (K2) DK BLUE (S) ACD Blood Culture NIPT/NTD 67058-0Iuvlc QxqvQD9180-32-98S66:37:41Nurse NoteTXT1.2.840.118977.1.13.104.2.7 .2.124075|[id number] for patient vdvi87342-7Kjdcs Note[address]TX[address] 07TOYMVFNZNXYYLNOKPWTKBB3852-49-50 T13:37:411.2.840.344899.1.72.3.15| 1.2.840.014430.1.13.104.2.7.2.7278 79_[id number] [facility] 2023-03-13 14:39:33 3824-37-54D83:39:33F ormatting of this note might be different from the original.Rx sent, let patient know, and to follow-up as scheduled. 00436-5Tmggbbhkb encounter RuamKO7235-02-98W65:39:33Telephone encounter NoteTXT1.2.840.940976.1.13.104.2.7 .2.945798|8063227403BGAncxdeydk for patient nwkc17728-5NzyzTSXNVCPRFK[address]TX[address] 04YDFMQRPYAVLXZPKXJDZNFM5890-92-40 T14:39:331.2.840.902583.1.72.3.15| 1.2.840.069811.1.13.104.2.7.2.7278 79_[id number] [facility] 2023-03-11 08:25:31 4479-07-10F34:25:31F ormatting of this note might be different from the original.NICOLE 02/14/23NOV 03/14/23LRD 02/14/23Routing to correct pool 15835-0Gdveonntq encounter ZmpqQR4921-98-33P98:26:31Telephone encounter NoteTXT1.2.840.247127.1.13.104.2.7 .2.690320|[id number] for patient ssjj77094-3IxbsUVSV-PBNLQRPRGZBO-S SYCHIATRY[address] AigpLujzfzckoAhsbnlfjbIKIM48350981 92NPPKQHRABURJYKZMCZGTYU5713-50-71 T08:26:311.2.840.169999.1.72.3.15| 1.2.840.577928.1.13.104.2.7.2.7278 [id number] PN-PSYCHIATRY [facility]
[2024-01-26 08:18] LABS: SARS-CoV-2 Antigen CONTROL BLUE LINE VIS/BG OK; SARS-CoV-2 Antigen Rapid Res Negative (Negative)
--- NOTE | 2024-01-26 08:34 | EDPHYS ---
Physician Documentation [facility] Name: Maylin Zuniga Age: 23 yrs Sex: Female : 2000 Arrival Date: 01/26/2024 Time: 07:23 Bed 7 Private MD: ED Physician Alvin Barajas HPI: 01/25 07:50 This 23 yrs old Female presents to ER via Ambulatory with complaints of 19 wks ec2 , Sore Throat, Headache, Runny Nose. 07:50 Patient arrives today for evaluation of URI signs symptoms ongoing for 3 to 4 days. ec2 Patient reports she is experiencing congestion along with sore throat. Patient reports that she has been drinking without any issue. Patient reports otherwise no abdominal pain, no vomiting, no diarrhea. Patient reports no difficulty breathing. No significant medical problems. Has taken Tylenol for the symptoms.. 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 - Infectious Disease History:: Denies. - Social history:: Smoking status: Patient denies any tobacco usage or history of. ROS: 07:50 Constitutional: as per hpi ec2 Exam: 07:50 Constitutional: GEN: NAD Head: atraumatic Eyes: EOMI Ears: External ears are normal. ec2 Mouth: Posterior pharyngeal erythema without exudates appreciated. No anterior cervical lymphadenopathy noted CV: regular rate LUNGS: no respiratory distress, no wheezes, rales, or rhonchi ABD: non-distended SKIN: no evidence of rashes MSK: no evidence of trauma NEURO: moves all extremities equally Vital Signs: 07:36 BP 131 / 93; Pulse 83; Resp 16; Temp 98.2(TE); Pulse Ox 100% on R/A; Weight 65.77 kg; hb Height 5 ft. 4 in. ; Pain 3/10; 08:33 BP 138 / 85; Pulse 76; Resp 18 S; Pulse Ox 100% on R/A; as6 08:37 BP 134 / 80; ec2 07:36 Body Mass Index 24.89 (65.77 kg, 162.56 cm) hb 07:36 Pain Scale: Adult hb MDM: 07:34 Patient medically screened. ec2 07:50 Data reviewed: vital signs. ED course: Patient arrives today for evaluation of URI ec2 signs and symptoms. Examination remarkable for well-appearing nontoxic dividual is otherwise in no acute distress with a reassuring examination. Will obtain viral swab, strep swab. Differential diagnosis include viral upper respiratory infection, strep pharyngitis. Patient otherwise without any abdominal pain, no vaginal bleeding to indicate any abnormality.. 08:33 ED course: Negative flu, COVID, strep testing. Instructed the patient on ec2 [id number] medications. Will discharge home with patient for Zofran as needed. Return precautions given . 01/25 07:49 Order name: Strep ec2 01/25 07:49 Order name: Influenza Screen (a \T\ B); Complete Time: 08:33 ec2 01/25 07:49 Order name: SARS RAPID; Complete Time: 08:33 ec2 01/25 08:18 Order name: Throat Culture EDMS Administered Medications: No medications were administered Disposition Summary: 01/26/24 08:33 Discharge Ordered Notes: Location: Home ec2 Condition: Stable ec2 Diagnosis - Viral infection, unspecified ec2 Followup: ec2 - With: Private Physician - When: - Reason: Re-evaluation by your physician Discharge Instructions: - Discharge Summary Sheet ec2 - Viral Respiratory Infection, [id number] ec2 Forms: - Medication Reconciliation Form ec2 - Antibiotic Education ec2 - Prescription Opioid Use ec2 - Patient Portal Instructions ec2 - Leadership Thank You Letter ec2 Prescriptions: - Zofran 4 mg Oral Tablet - take 1 tablet ORAL route every 12 hours As needed; 20 tablet; Refills: 0, ec2 Product Selection Permitted Signatures: Dispatcher [employer] EDAshtyn Preston RN RN hb Slawson, Ashby, RN RN as6 Alvin Barajas MD MD ec2 Corrections: (The following items were deleted from the chart) 07:49 07:49 Group A Streptococcus Rapid Sc+BA.LAB.BRZ ordered. EDMS EDMS 07:49 07:49 Influenza Screen (A \T\ B)+BA.LAB.BRZ ordered. EDMS EDMS 07:49 07:49 SARS-COV-2 Antigen Rapid+I.LAB.BRZ ordered. EDMS EDMS
--- NOTE | 2024-01-26 08:34 | ER ---
Nurse's Notes [facility] Name: Maylin Zuniga Age: 23 yrs Sex: Female : 2000 Arrival Date: 01/26/2024 Time: 07:23 Bed 7 Private MD: Diagnosis: Viral infection, unspecified Presentation: 01/25 07:36 Chief complaint: DUNCAN, sinus congestion, runny nose, and sore throat x 3 days. Pt is 19 hb weeks , LMP 2/7, GILMAR 06/24, . Initial Sepsis Screen: Does the patient meet any 2 criteria? No. Patient's initial sepsis screen is negative. Does the patient have a suspected source of infection? No. Patient's initial sepsis screen is negative. Risk Assessment: Do you want to hurt yourself or someone else? Patient reports no desire to harm self or others. Onset of symptoms was January 23, 2024. 07:36 Acuity: VINNY 4 hb 07:48 Coronavirus screen: At this time, the client does not indicate any symptoms associated as6 with coronavirus-19. Ebola Screen: No symptoms or risks identified at this time. 07:48 Method Of Arrival: Ambulatory as6 07:49 Risk Assessment: Do you want to hurt yourself or someone else? Patient reports no as6 desire to harm self or others. SACK CLEANING HAND: 08:34 Verified as6 Historical: - Allergies: 07:50 NKDA; hb - Home Meds: 07:50 Vitamin Oral [Active]; hb - PMHx: 07:50 Anxiety; depressive disorder; ovarian cyst rupture (depressive disorder); hb - PSHx: 07:50 None; hb - Immunization history:: Adult Immunizations up to date. - Infectious Disease History:: Denies. - Social history:: Smoking status: Patient denies any tobacco usage or history of. Screenin:48 [facility] [place] ED Fall Risk Assessment (Adult) History of falling in the last 3 months, as6 including since admission No falls in past 3 months (0 pts) Confusion or Disorientation No (0 pts) Intoxicated or Sedated No (0 pts) Impaired Gait No (0 pts) Mobility Assist Device Used No (0 pt) Altered Elimination No (0 pt) Score/Fall Risk Level 0 - 2 = Low Risk Oriented to surroundings, Maintained a safe environment, Educated pt \T\ family on fall prevention, incl call for assistance when getting out of bed, Assessed \T\ reinforced patient's understanding of fall precautions. Abuse screen: Denies threats or abuse. Denies injuries from another. Nutritional screening: No deficits noted. Tuberculosis screening: No symptoms or risk factors identified. Assessment: 07:45 General: Appears in no apparent distress. ill, Behavior is calm, cooperative, ko1 appropriate for age. Pain: Complains of pain in sore throat. Neuro: No deficits noted. Cardiovascular: No deficits noted. Respiratory: Reports cough that is non-productive, Airway is patent Respiratory effort is even, unlabored, Breath sounds are clear bilaterally. GI: No deficits noted. : No deficits noted. EENT: Nares with drainage noted Throat is pink. Derm: No deficits noted. Musculoskeletal: No deficits noted. Vital Signs: 07:36 BP 131 / 93; Pulse 83; Resp 16; Temp 98.2(TE); Pulse Ox 100% on R/A; Weight 65.77 kg; hb Height 5 ft. 4 in. ; Pain 3/10; 08:33 BP 138 / 85; Pulse 76; Resp 18 S; Pulse Ox 100% on R/A; as6 08:37 BP 134 / 80; ec2 07:36 Body Mass Index 24.89 (65.77 kg, 162.56 cm) hb 07:36 Pain Scale: Adult hb ED Course: 07:34 Patient arrived in ED. mr 07:34 Alvin Barajas MD is Attending Physician. ec2 07:45 Provided Education on: tests, ;call light. Pulse ox on. NIBP on. Door closed. Noise ko1 minimized. Lights dimmed. Warm blanket given. Pillow given. 07:45 No provider procedures requiring assistance completed. Patient did not have IV access ko1 during this emergency room visit. 07:48 Eulalio Vega, BILLIE is Primary Nurse. as6 07:48 Bed in low position. Call light in reach. as6 07:49 Arm band placed on Patient placed in an exam room, on a stretcher, on pulse oximetry. as6 07:50 Triage completed. hb 07:56 SARS RAPID Sent. ko1 07:56 Influenza Screen (a \T\ B) Sent. ko1 07:56 Strep Sent. ko1 08:00 COVID swab sent to lab. Flu and/or RSV swab sent to lab. Strep swab sent to lab. ko1 Administered Medications: No medications were administered Medication: 07:48 VIS not applicable for this client. as6 Outcome: 08:33 Discharge ordered by . ec2 08:34 Discharged to home ambulatory, as6 08:34 Condition: stable 08:37 Discharge instructions given to patient, Instructed on discharge instructions, follow as6 up and referral plans. medication usage, Demonstrated understanding of instructions, follow-up care, medications, Prescriptions given X 1, 08:38 Patient left the ED. as6 Signatures: Caren Gamez, Reg Reg mr McgeeAshtyn, RN RN hb Eulalio Vega RN RN as6 Dania Jackson RN RN ko1 Alvin Barajas MD MD ec2
[2024-01-26 08:45] VITALS: TEMP 98.2; O2SAT 100
[2024-01-26 09:09] VITALS: BP 134/80
== END 2024-01-26 08:38 | disposition home or self-care (01) ==
LOC: ER 07:23
DX: O98.512 Other viral diseases complicating pregnancy, second trimester (principal); Z3A.19 19 weeks gestation of pregnancy; Z11.52 Encounter for screening for COVID-19
CPT/HCPCS: 36415; 87070; 87081; 87804; 87811; 99283

== ENCOUNTER 2024-03-09 21:45 | Emergency (ER) | payer OTHER ==
--- OUTSIDE RECORDS SUMMARY | 2024-03-09 21:53 | XMS REPORT | Continuity of Care Document ---
Author Name Unknown Address [address] [facility] [address] [facility] Address [address] [facility] [address] [place] [address] Care Team Providers Care City Planner Name Role Phone Eliza Heller Primary Care Physician + [phone] LESLIE CASTELLANOS Attending Clinician Unavail able CARLA VAUGHN Attending Clinician UnavailCLAUDIA Bess Attending Clinician Unavail able CLAUDIA BARBOZA Attending Clinician Unavail able TWILA BARGER Attending Clinician Unavailable TWILA BARGER Attending Clinician Unavailable Provider, Pedro Temp Attending Clinician Erica vailable Doctor Unassigned, [place] Attending Clinician U navailable Leslie Diane Attending Clinician + Ultrasound, Ang-Mfm Attending Clinician UnavailSean Mccord MD Attending Clinician [phone] SEAN PEARCE Attending Clinician Unavailable SEAN PEARCE Attending Clinician Unavailable Risk, Bqy-Rfshp-Vn/High Attending Clinician Unav ailable ELIZA WILKINSON Attending Clinician Unavailable DEXTER MCCONNELL Attending Clinician Unavail able DEXTER MCCONNELL Attending Clinician Unavail able Eliza Heller Attending Clinician [phone] THOMAS HARDY Attending Clinician Unavailable THOMAS HARDY Attending Clinician Unavailable RANDI DO Attending Clinician Unavailable Randi Baxter Attending Clinician PATELNAVEEN CAM Attending Clinician Unavailable NAVEEN PATEL Attending Clinician Unavailable SULLY GUEVARA Attending Clinician UnavailSully Martinez MD Attending Clinician [phone] DAISY CABELLO Attending Clinician Unavailable Daisy Cabello MD Attending Clinician [phone] ERVIN BOWSER Attending Clinician Unav ailErvin Hollis MD Attending Clinician + Carla Vaughn CNM Attending Clinician ARNOLD BLUM Attending Clinician Unavailable Arnold Blum MD Attending Clinician [phone] Lawson COCHRAN Attending Clinician Unavailable Sydney Lubin MD Attending Clinician [phone] Katarina Attending Clinician Unavailable NACHO NGUYEN Attending Clinician Unavailable Nacho Nguyen MD Attending Clinician [phone] Pgy3 Attending Clinician Unavailable SYDNEY LUBIN Attending Clinician Unavailable BRUNA ARRINGTON Attending Clinician Unavailable BRUNA ARRINGTON Attending Clinician Unavailable Pgy2 Attending Clinician Unavailable Gretchen Cao Attending Clinician [phone] ELIZA OLIVIER Attending Clinician Unavailable RAHEL DICKSON Attending Clinician Unavailable Rahel Aguilar Attending Clinician [phone], [facility] Attending Clinician Unavailable YAW BOR Attending Clinician Unavailable Yaw Bro DO Attending Clinician [phone] [facility] Attending Clinician Un available Unknown, Attending Attending Clinician Unavailab le UNKNOWN, ATTENDING Attending Clinician Unavailab BAILEE Vivar Attending Clinician Unavailable ROSALES CHAPIN Attending Clinician Unavailabl ROSALES Jackson Attending Clinician UnavailROSALES Helm Attending Clinician Unavailradha Barrientos LPN PER DIEM, Jacob Love Attending Clinician + [phone] JACOB BARRIENTOS Attending Clinician Unavailab mando Emanuel, [facility] Nurse Attending Clinician Unava ilALIVIA Archer Attending Clinician Unavaila rupa Lee LPN PER DIEM, Alivia Liriano Attending Clinician [phone] CINDY APARICIO Attending Clinician Unavailradha Jones RN, Rayne Godoy Attending Clinician Unavailab NI Mckeon Attending Clinician Unavailable Joel Matt DO Attending Clinician [phone] Alysia LPN PER DIEM, Elena Attending Clinician [phone] Provider, [facility] Attending Clinician Un available ELENA HATFIELD Attending Clinician Unavailable Fletcher Ramesh MD Attending Clinician [phone] Frank WISE, Ethel Attending Clinician Erica Alvin Robison Attending Clinician [phone] DAISY CABELLO Admitting Clinician Unavailable THOMAS HARDY Admitting Clinician Unavailable NAVEEN PATEL Admitting Clinician Unavailable Daisy Cabello MD Admitting Clinician [phone] Katarina Admitting Clinician Unavailable NACHO NGUYEN Admitting Clinician Unavailable YAW BRO Admitting Clinician Unavailable Payers Payer Name Policy Type Policy Number Effective Date Expirati on Date Source [facility] [id number] 2023 00:00:00 MEDICAID [facility] [id number] 2023 00:00:00 [place] [id number] [facility] [id number] 2019 00:00:00 Problems Condition Name Condition Details Condition Category Status Onset Date Resolution Date Last Treatment Date Treating Clinician Comments Source High-risk in second trimester High-risk in second trimester Disease Active 03-09 00:00: 00 [facility] Cramping affecting , antepartum Cramping affecting , antepartum Disease Active 02-12 00:00: 00 [facility] 21 weeks gestation of 21 weeks gestation of Disease Active 7-04 00:00: 00 [facility] Anxiety Anxiety Disease Active 7-04 00:00: 00 [facility] Vaginal bleeding before 22 weeks gestation Vaginal bleeding before 22 weeks gestation Disease Active 7-02 00:00: 00 [facility] 20 weeks gestation of 20 weeks gestation of Disease Active 7-02 00:00: 00 [facility] 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 Repeat pap 11/2024 [facility] History of miscarriag e History of miscarriag e Disease Active 4-04 00:00: 00 [facility] Nausea/vom iting in Nausea/vom iting in Disease Active 4-04 00:00: 00 [facility] Chlamydia trachomati s infection of lower genitourin jeremy sites Chlamydia trachomati s infection of lower genitourin jeremy sites Disease Active 2-13 00:00: 00 [facility] Class 1 obesity due to excess calories with serious comorbidit y and body mass index (BMI) of 34.0 to 34.9 in adult Class 1 obesity due to excess calories with serious comorbidit y and body mass index (BMI) of 34.0 to 34.9 in adult Disease Active 3- 00:00: 00 [facility] Depression during Depression during Disease Active 08-20 00:00: 00 Overview: Formattin g of this note might be different from the original. Reports stopped meds 10/15/23 reports stable mood [facility] Other depression Other depression Disease Active 08-20 00:00: 00 [facility] Screening examinatio n for STD (sexually transmitte d disease) Screening examinatio n for STD (sexually transmitte d disease) Disease Active 08-20 00:00: 00 [facility] BMI 27.0-27.9, adult BMI 27.0-27.9, adult Disease Active 2018-08 0 00:00: 00 [facility] BMI 29.0-29.9, adult BMI 29.0-29.9, adult Disease Active 2018-08 016 00:00: 00 [facility] Over weight Over weight Disease Resolve d 2018-08 00:00: 00 2023-11-14 00:00:00 2023-11-14 10:49:17 [facility] Need for prophylact ic vaccinatio n and inoculatio n against influenza Need for prophylact ic vaccinatio n and inoculatio n against influenza Disease Resolve d 3-24 00:00: 00 2022-09-21 00:00:00 2022-09-21 10:53:12 [facility] Feeling sad Feeling sad Disease Resolve d 5-21 00:00: 00 2022-09-21 00:00:00 2022-09-21 09:51:48 [facility] Encounter for other general counseling or advice on contracept ion Encounter for other general counseling or advice on contracept ion Disease Resolve d 5-07 00:00: 00 2022-09-21 00:00:00 2022-09-21 10:03:29 [facility] Class 1 obesity due to excess calories with serious comorbidit y and body mass index (BMI) of 34.0 to 34.9 in adult Class 1 obesity due to excess calories with serious comorbidit y and body mass index (BMI) of 34.0 to 34.9 in adult Disease Resolve d 3-24 00:00: 00 2022-09-21 00:00:00 2022-09-21 09:51:43 [facility] Absence of menstruati on Absence of menstruati on Disease Resolve d 3-24 00:00: 00 2022-09-21 00:00:00 2022-09-21 09:51:37 [facility] Breast tenderness in female Breast tenderness in female Disease Resolve d 3-24 00:00: 00 2022-09-21 00:00:00 2022-09-21 09:51:38 [facility] BMI 34.0-34.9, adult BMI 34.0-34.9, adult Disease Resolve d 3-24 00:00: 00 2022-09-21 00:00:00 2022-09-21 10:03:19 [facility] Elevated blood pressure reading without diagnosis of hypertensi on Elevated blood pressure reading without diagnosis of hypertensi on Disease Resolve d 2-21 00:00: 00 2022-09-21 00:00:00 2022-09-21 10:03:05 [facility] Nexplanon removal Nexplanon removal Disease Resolve d 1-09 00:00: 00 2022-09-21 00:00:00 2022-09-21 09:51:52 [facility] HPV vaccine counseling HPV vaccine counseling Disease Resolve d 2018-08 0-16 00:00: 00 2022-09-21 00:00:00 2022-09-21 10:53:11 [facility] Lump or mass in breast Lump or mass in breast Disease Resolve d 4-13 00:00: 00 2022-09-21 00:00:00 2022-09-21 09:51:40 [facility] Nexplanon insertion Nexplanon insertion Disease Resolve d 4-13 00:00: 00 2019-08-20 00:00:00 2022-02-25 00:35:32 [facility] Allergies, Adverse Reactions, Alerts Allergy Name Allergy Type Status Severity Reaction(s) Onset Date Inactive Date Treating Clinician Comments Source NO KNOWN ALLERGIE S Drug Class Active [facility] Social History Social Habit Start Date Stop Date Quantity Comments Source ASSERTION 2023-10-02 00:00:00 [facility] Gender identity [facility] Alcoholic beverage intake 2024-03-09 00:00:00 2024-03-09 00:00:00 Current drinker of alcohol (finding) [facility] History of Social function 2023-12-10 00:00:00 2023-12-10 00:00:00 [facility] Alcohol intake 2023-12-10 00:00:00 2023-12-10 00:00:00 Current drinker of alcohol (finding) [facility] Exposure to SARS-CoV-2 (event) 2022-12-24 00:00:00 2023-01-03 09:29:00 Not sure [facility] History SDOH Alcohol Frequency 2023-01-01 00:00:00 2023-01-01 00:00:00 1 [facility] History SDOH Alcohol Std Drinks 2023-01-01 00:00:00 2023-01-01 00:00:00 0 [facility] History SDOH Alcohol Binge 2023-01-01 00:00:00 2023-01-01 00:00:00 1 [facility] History SDOH Social Connections Phone 2023-01-01 00:00:00 2023-01-01 00:00:00 4 [facility] History SDOH Social Connections Get Together 2023-01-01 00:00:00 2023-01-01 00:00:00 2 [facility] History SDOH Social Connections Voodoo 2023-01-01 00:00:00 2023-01-01 00:00:00 3 [facility] History SDOH Social Connections Membership 2023-01-01 00:00:00 2023-01-01 00:00:00 2 [facility] History SDOH Social Connections Meetings 2023-01-01 00:00:00 2023-01-01 00:00:00 1 [facility] History SDOH Social Connections Living 2023-01-01 00:00:00 2023-01-01 00:00:00 7 [facility] History SDOH Physical Activity DPW 2023-01-01 00:00:00 2023-01-01 00:00:00 1 [facility] History SDOH Physical Activity MPS 2023-01-01 00:00:00 2023-01-01 00:00:00 3 [facility] History SDOH Stress 2023-01-01 00:00:00 2023-01-01 00:00:00 5 [facility] History SDOH Financial 2023-01-01 00:00:00 2023-01-01 00:00:00 4 [facility] History SDOH Food Worry 2023-01-01 00:00:00 2023-01-01 00:00:00 1 [facility] History SDOH Food Scarcity 2023-01-01 00:00:00 2023-01-01 00:00:00 2 [facility] History SDOH Transport Med 2023-01-01 00:00:00 2023-01-01 00:00:00 2 [facility] History SDOH Transport Non-Med 2023-01-01 00:00:00 2023-01-01 00:00:00 2 [facility] History SDOH Housing Unable to Pay 2023-01-01 00:00:00 2023-01-01 00:00:00 2 [facility] History SDOH Housing Places Lived 2023-01-01 00:00:00 2023-01-01 00:00:00 1 [facility] History SDOH Housing Homeless Last Year 2023-01-01 00:00:00 2023-01-01 00:00:00 2 [facility] Tobacco use and exposure 2022-12-27 00:00:00 2022-12-27 00:00:00 Smokeless tobacco non-user [facility] Alcohol Comment 2021-11-02 00:00:00 2021-11-02 00:00:00 social [facility] Sex assigned at 2000 00:00:00 2000 00:00:00 [facility] Smoking Status Start Date Stop Date Source Never smoked tobacco [facility] Medications Ordered Medication Name Filled Medication Name Start Date Stop Date Current Medication? Ordering Clinician Indication Dosage Frequency Signature (SIG) Comments Components Source omeprazole 40 mg capsule 02-13 00:00: 00 Yes [id number] 40mg Take 1 capsule by mouth in the morning. [facility] acetaminoph en (TYLENOL) tablet 1,000 mg 02-12 07:30: 02-12 06:52 :00 No 1000mg 1,000 mg, Oral, ONCE, 1 dose, On Kassy 02/13/24 at 0230, Routine [facility] lactated ringers IV infusion 1,000 mL 02-12 07:15: 00 02-12 06:57 :08 No 1000mL at 999 mL/hr, 1,000 mL, Intravenou s, ONCE, 1 dose, On Sat02/13/24 at 0215, Routine [facility] metroNIDAZO LE (FLAGYL) tablet 500 mg 02-11 04:58: 18 02-11 05:37 :00 No 500mg 500 mg, Oral, O.R. HOLDING ONCE, 1 dose, Starting on Sat02/11/24 at 2358, Until Sat02/12/24 at 0037, Routine, Surgery/Pr ocedure, Reason for Anti-Infec tive: Documented Infection, Documented Infection Site: Pelvic, Duration of Therapy: Once (ED) [facility] metroNIDAZO LE (FLAGYL) 500 mg tablet 02-11 00:00: 00 Yes [id number] 500mg Take 1 tablet by mouth every 12 (twelve) hours. [facility] venlafaxine XR 37.5 mg 24 hr capsule 01-14 00:00: 00 Yes [id number] 109 37.5mg Take 1 capsule by mouth daily with breakfast. [facility] magnesium oxide 400 mg (241.3 mg magnesium) tablet 01-14 00:00: 00 Yes [id number] 400mg Take 1 tablet by mouth in the morning. [facility] hydrOXYzine 10 mg tablet 22 00:00: 00 01-24 04:59 :00 Yes [id number] 109 10mg Take 1 tablet by mouth every 6 (six) hours for 90 doses. [facility] proMETHazin e 25 mg tablet 11-13 00:00: 00 Yes [id number] 25mg Take 1 tablet by mouth every 6 (six) hours as needed for Nausea and Vomiting (N/V). [facility] PNV 67-iron ps-folate no.1-dha (VITAFOL ULTRA) 29 mg iron- 1 mg-200 mg Cap 11-13 00:00: 00 Yes [id number] 1{each} Take 1 Each by mouth in the morning. [facility] KCL (KLOR-CON M20) tablet 20 mEq 11-11 04:45: 00 11-11 04:46 :00 No 20meq 20 mEq, Oral, ONCE, 1 dose, On Sat11/11/23 at 2345, PABLO [facility] NaCl 0.9% (NS) IV infusion 1,000 mL 11-11 04:15: 00 Yes 1000mL at 999 mL/hr, Intravenou s, CONTINUOUS , Starting on Sat11/11/23 at 2315, Until Discontinu ed, Routine [facility] ondansetron (ZOFRAN (PF)) injection 4 mg 11-11 03:15: 00 11-11 03:20 :00 No 4mg 4 mg, Slow IV Push, ONCE, 1 dose, On Sat11/11/23 at 2215, PABLO [facility] doxylamine- pyridoxine, vit B6, (DICLEGIS) 10-10 mg per tablet 11-10 00:00: 00 Yes [id number] 2{tbl} Take 2 tablets by mouth at bedtime as needed for Nausea and Vomiting (N/V). [facility] ondansetron 4 mg tablet -09 00:00: 00 Yes [id number] 4mg Take 1 tablet by mouth every 8 (eight) hours as needed for Nausea and Vomiting (N/V). [facility] omeprazole 40 mg capsule -07 00:00: 00 02-13 00:00 :00 No [id number] 40mg Take 1 capsule by mouth in the morning. [facility] ondansetron 8 mg tablet 824 00:00: 00 Yes [id number] 8mg Take 1 tablet by mouth every 8 (eight) hours as needed for Nausea and Vomiting (N/V). [facility] omeprazole 40 mg capsule - 00:00: 00 04-18 00:00 :00 No [id number] 40mg Take 1 capsule by mouth in the morning. [facility] VENLAFAXINE XR 37.5 mg 24 hr capsule 03-13 00:00: 00 01-14 00:00 :00 No [id number] 37.5mg TAKE 1 CAPSULE BY MOUTH DAILY WITH BREAKFAST. [facility] venlafaxine XR 37.5 mg 24 hr capsule - 00:00: 00 03-13 00:00 :00 No [id number] 37.5mg Take 1 capsule by mouth daily with breakfast. [facility] SERTraline 25 mg tablet 01-03 00:00: 00 02-14 00:00 :00 No [id number] 25mg Take 1 tablet by mouth in the morning. [facility] naproxen (NAPROSYN) 500 mg tablet 01-03 00:00: 00 01-14 04:59 :00 No [id number] 500mg Take 1 tablet by mouth in the morning and 1 tablet in the evening. Take with meals. Do all this for 10 days. [facility] iopamidol (ISOVUE 370-500 mL) injection 100 mL 12-28 03:00: 00 12-28 03:00 :00 No [id number] 100mL 100 mL, Intravenou s, ONCE, 1 dose, On Sat12/27/22 at 2200, Routine [facility] norelgestro min-ethinyl estradiol (XULANE) 150-35 mcg/24 hr patch 5-11 00:00: 00 01-03 00:00 :00 No [id number] 1{patch } Apply 1 Patch to skin weekly. [facility] doxycycline hyclate 100 mg capsule 2-13 00:00: 00 10-02 05:59 :00 No [id number] 100mg Take 1 capsule by mouth every 12 (twelve) hours for 7 days. [facility] norelgestro min-ethinyl estradiol 150-35 mcg/24 hr patch 2-10 00:00: 00 04-01 00:00 :00 No [id number] 1{patch } Apply 1 Patch to skin weekly. [facility] norgestimat e-ethinyl estradioL 0.18/0.215/ 0.25 mg-25 mcg tablet 7- 00:00: 00 09-21 00:00 :00 No [id number] 1{tbl} Take 1 tablet by mouth daily. [facility] norgestimat e-ethinyl estradioL 0.18/0.215/ 0.25 mg-25 mcg tablet - 00:00: 00 02-15 00:00 :00 No [id number] 1{tbl} Take 1 tablet by mouth daily. [facility] albuterol 90 mcg/actuati on inhaler 10-16 00:00: 00 01-03 00:00 :00 No [id number] 6{puff} Inhale 6 Puffs every 4 (four) hours as needed for Wheezing or Shortness of Breath. [facility] benzonatate 100 mg capsule 10-16 00:00: 00 09-21 00:00 :00 No [id number] 100mg Take 1 capsule by mouth 3 (three) times daily as needed for Cough. [facility] Immunizations Ordered Immunization Name Filled Immunization Name Date Status Comments Source Influenza Virus Vaccine Quad .5 mL IM 6+ MO 2021-11-02 00:00:00 Completed [facility] Influenza Virus Vaccine Quad .5 mL IM 6+ MO 2021-11-02 00:00:00 Completed [facility] Influenza Virus Vaccine Quad .5 mL IM 6+ MO 2021-11-02 00:00:00 Completed [facility] Influenza Virus Vaccine Quad .5 mL IM 6+ MO 2021-11-02 00:00:00 Completed [facility] Influenza Virus Vaccine Quad .5 mL IM 6+ MO 2021-11-02 00:00:00 Completed [facility] Influenza Virus Vaccine Quad .5 mL IM 6+ MO 2021-11-02 00:00:00 Completed [facility] Influenza Virus Vaccine Quad .5 mL IM 6+ MO 2021-11-02 00:00:00 Completed [facility] Influenza Virus Vaccine Quad .5 mL IM 6+ MO 2021-11-02 00:00:00 Completed [facility] Influenza Virus Vaccine Quad .5 mL IM 6+ MO 2021-11-02 00:00:00 Completed [facility] Influenza Virus Vaccine Quad .5 mL IM 6+ MO 2021-11-02 00:00:00 Completed [facility] Influenza Virus Vaccine Quad .5 mL IM 6+ MO 2021-11-02 00:00:00 Completed [facility] Influenza Virus Vaccine Quad .5 mL IM 6+ MO 2021-11-02 00:00:00 Completed [facility] Influenza Virus Vaccine Quad .5 mL IM 6+ MO 2021-11-02 00:00:00 Completed [facility] Influenza Virus Vaccine Quad .5 mL IM 6+ MO 2021-11-02 00:00:00 Completed [facility] Influenza Virus Vaccine Quad .5 mL IM 6+ MO 2021-11-02 00:00:00 Completed [facility] Influenza Virus Vaccine Quad .5 mL IM 6+ MO 2021-11-02 00:00:00 Completed [facility] Influenza Virus Vaccine Quad .5 mL IM 6+ MO 2021-11-02 00:00:00 Completed [facility] Influenza Virus Vaccine Quad .5 mL IM 6+ MO 2021-11-02 00:00:00 Completed [facility] Influenza Virus Vaccine Quad .5 mL IM 6+ MO 2021-11-02 00:00:00 Completed [facility] Influenza Virus Vaccine Quad .5 mL IM 6+ MO 2021-11-02 00:00:00 Completed [facility] Influenza Virus Vaccine Quad .5 mL IM 6+ MO 2021-11-02 00:00:00 Completed [facility] Influenza Virus Vaccine Quad .5 mL IM 6+ MO 2021-11-02 00:00:00 Completed [facility] Influenza Virus Vaccine Quad .5 mL IM 6+ MO 2021-11-02 00:00:00 Completed [facility] Influenza Virus Vaccine Quad .5 mL IM 6+ MO 2021-11-02 00:00:00 Completed [facility] Influenza Virus Vaccine Quad .5 mL IM 6+ MO 2021-11-02 00:00:00 Completed [facility] Influenza Virus Vaccine Quad .5 mL IM 6+ MO 2021-11-02 00:00:00 Completed [facility] Influenza Virus Vaccine Quad .5 mL IM 6+ MO (FLUZONE/FLULAVAL/F LUARIX) 2021-11-02 00:00:00 Completed [facility] Influenza Virus Vaccine Quad .5 mL IM 6+ MO (FLUZONE/FLULAVAL/F LUARIX) 2021-11-02 00:00:00 Completed [facility] Influenza Virus Vaccine Quad .5 mL IM 6+ MO (FLUZONE/FLULAVAL/F LUARIX) 2021-11-02 00:00:00 Completed [facility] SARS-COV-2 COVID-19 PFIZER VACCINE 2021-03-27 00:00:00 Completed [facility] SARS-COV-2 COVID-19 PFIZER VACCINE 2021-03-27 00:00:00 Completed [facility] SARS-COV-2 COVID-19 PFIZER VACCINE 2021-03-27 00:00:00 Completed [facility] SARS-COV-2 COVID-19 PFIZER VACCINE 2021-03-27 00:00:00 Completed [facility] SARS-COV-2 COVID-19 PFIZER VACCINE 2021-03-27 00:00:00 Completed [facility] SARS-COV-2 COVID-19 PFIZER VACCINE 2021-03-27 00:00:00 Completed [facility] SARS-COV-2 COVID-19 PFIZER VACCINE 2021-03-27 00:00:00 Completed [facility] SARS-COV-2 COVID-19 PFIZER VACCINE 2021-03-27 00:00:00 Completed [facility] SARS-COV-2 COVID-19 PFIZER VACCINE 2021-03-27 00:00:00 Completed [facility] SARS-COV-2 COVID-19 PFIZER VACCINE 2021-03-27 00:00:00 Completed [facility] SARS-COV-2 COVID-19 PFIZER VACCINE 2021-03-27 00:00:00 Completed [facility] SARS-COV-2 COVID-19 PFIZER VACCINE 2021-03-27 00:00:00 Completed [facility] SARS-COV-2 COVID-19 PFIZER VACCINE 2021-03-27 00:00:00 Completed [facility] SARS-COV-2 COVID-19 PFIZER VACCINE 2021-03-27 00:00:00 Completed [facility] SARS-COV-2 COVID-19 PFIZER VACCINE 2021-03-27 00:00:00 Completed [facility] SARS-COV-2 COVID-19 PFIZER VACCINE 2021-03-27 00:00:00 Completed [facility] SARS-COV-2 COVID-19 PFIZER VACCINE 2021-03-27 00:00:00 Completed [facility] SARS-COV-2 COVID-19 PFIZER VACCINE 2021-03-27 00:00:00 Completed [facility] SARS-COV-2 COVID-19 PFIZER VACCINE 2021-03-27 00:00:00 Completed [facility] SARS-COV-2 COVID-19 PFIZER VACCINE 2021-03-27 00:00:00 Completed [facility] SARS-COV-2 COVID-19 PFIZER VACCINE 2021-03-27 00:00:00 Completed [facility] SARS-COV-2 COVID-19 PFIZER VACCINE 2021-03-27 00:00:00 Completed [facility] SARS-COV-2 COVID-19 PFIZER VACCINE 2021-03-27 00:00:00 Completed [facility] SARS-COV-2 COVID-19 PFIZER VACCINE 2021-03-27 00:00:00 Completed [facility] SARS-COV-2 COVID-19 PFIZER VACCINE 2021-03-27 00:00:00 Completed [facility] SARS-COV-2 COVID-19 PFIZER VACCINE 2021-03-27 00:00:00 Completed [facility] SARS-COV-2 COVID-19 PFIZER VACCINE 2021-03-27 00:00:00 Completed [facility] SARS-COV-2 COVID-19 PFIZER VACCINE 2021-03-27 00:00:00 Completed [facility] SARS-COV-2 COVID-19 PFIZER VACCINE 2021-03-27 00:00:00 Completed [facility] SARS-COV-2 COVID-19 PFIZER VACCINE 2021-03-06 00:00:00 Completed [facility] SARS-COV-2 COVID-19 PFIZER VACCINE 2021-03-06 00:00:00 Completed [facility] SARS-COV-2 COVID-19 PFIZER VACCINE 2021-03-06 00:00:00 Completed [facility] SARS-COV-2 COVID-19 PFIZER VACCINE 2021-03-06 00:00:00 Completed [facility] SARS-COV-2 COVID-19 PFIZER VACCINE 2021-03-06 00:00:00 Completed [facility] SARS-COV-2 COVID-19 PFIZER VACCINE 2021-03-06 00:00:00 Completed [facility] SARS-COV-2 COVID-19 PFIZER VACCINE 2021-03-06 00:00:00 Completed [facility] SARS-COV-2 COVID-19 PFIZER VACCINE 2021-03-06 00:00:00 Completed [facility] SARS-COV-2 COVID-19 PFIZER VACCINE 2021-03-06 00:00:00 Completed [facility] SARS-COV-2 COVID-19 PFIZER VACCINE 2021-03-06 00:00:00 [facility]pleted [facility] SARS-COV-2 COVID-19 PFIZER VACCINE 2021-03-06 00:00:00 [facility] SARS-COV-2 COVID-19 PFIZER VACCINE 2021-03-06 00:00:00 [facility] SARS-COV-2 COVID-19 PFIZER VACCINE 2021-03-06 00:00:00 [facility] SARS-COV-2 COVID-19 PFIZER VACCINE 2021-03-06 00:00:00 [facility] SARS-COV-2 COVID-19 PFIZER VACCINE 2021-03-06 00:00:00 [facility] SARS-COV-2 COVID-19 PFIZER VACCINE 2021-03-06 00:00:00 [facility] SARS-COV-2 COVID-19 PFIZER VACCINE 2021-03-06 00:00:00 [facility] SARS-COV-2 COVID-19 PFIZER VACCINE 2021-03-06 00:00:00 [facility] SARS-COV-2 COVID-19 PFIZER VACCINE 2021-03-06 00:00:00 [facility] SARS-COV-2 COVID-19 PFIZER VACCINE 2021-03-06 00:00:00 [facility] SARS-COV-2 COVID-19 PFIZER VACCINE 2021-03-06 00:00:00 [facility] SARS-COV-2 COVID-19 PFIZER VACCINE 2021-03-06 00:00:00 [facility] SARS-COV-2 COVID-19 PFIZER VACCINE 2021-03-06 00:00:00 [facility] SARS-COV-2 COVID-19 PFIZER VACCINE 2021-03-06 00:00:00 [facility] SARS-COV-2 COVID-19 PFIZER VACCINE 2021-03-06 00:00:00 [facility] SARS-COV-2 COVID-19 PFIZER VACCINE 2021-03-06 00:00:00 [facility] SARS-COV-2 COVID-19 PFIZER VACCINE 2021-03-06 00:00:00 [facility] SARS-COV-2 COVID-19 PFIZER VACCINE 2021-03-06 00:00:00 [facility] SARS-COV-2 COVID-19 PFIZER VACCINE 2021-03-06 00:00:00 [facility] HPV9 2019-08-25 00:00:00 [facility] HPV9 2019-08-25 00:00:00 [facility] HPV9 2019-08-25 00:00:00 [facility] HPV9 2019-08-25 00:00:00 [facility] HPV9 2019-08-25 00:00:00 [facility] HPV9 2019-08-25 00:00:00 [facility] HPV9 2019-08-25 00:00:00 [facility] HPV9 2019-08-25 00:00:00 [facility] HPV9 2019-08-25 00:00:00 [facility] HPV9 2019-08-25 00:00:00 [facility] HPV9 2019-08-25 00:00:00 [facility] HPV9 2019-08-25 00:00:00 [facility] HPV9 2019-08-25 00:00:00 [facility] HPV9 2019-08-25 00:00:00 [facility] HPV9 2019-08-25 00:00:00 [facility] HPV9 2019-08-25 00:00:00 [facility] HPV9 2019-08-25 00:00:00 [facility] HPV9 2019-08-25 00:00:00 [facility] HPV9 2019-08-25 00:00:00 [facility] HPV9 2019-08-25 00:00:00 [facility] HPV9 2019-08-25 00:00:00 [facility] HPV9 2019-08-25 00:00:00 [facility] HPV9 2019-08-25 00:00:00 [facility] HPV9 2019-08-25 00:00:00 [facility] HPV9 2019-08-25 00:00:00 [facility] HPV9 2019-08-25 00:00:00 [facility] HPV9 2019-08-25 00:00:00 [facility] HPV9 2019-08-25 00:00:00 [facility] HPV9 2019-08-25 00:00:00 [facility] HPV9 2019-05-27 00:00:00 [facility] HPV9 2019-05-27 00:00:00 [facility] HPV9 2019-05-27 00:00:00 [facility] HPV9 2019-05-27 00:00:00 [facility] HPV9 2019-05-27 00:00:00 [facility] HPV9 2019-05-27 00:00:00 [facility] HPV9 2019-05-27 00:00:00 [facility] HPV9 2019-05-27 00:00:00 [facility] HPV9 2019-05-27 00:00:00 [facility] HPV9 2019-05-27 00:00:00 [facility] HPV9 2019-05-27 00:00:00 [facility] HPV9 2019-05-27 00:00:00 [facility] HPV9 2019-05-27 00:00:00 [facility] HPV9 2019-05-27 00:00:00 [facility] HPV9 2019-05-27 00:00:00 [facility] HPV9 2019-05-27 00:00:00 [facility] HPV9 2019-05-27 00:00:00 [facility] HPV9 2019-05-27 00:00:00 [facility] HPV9 2019-05-27 00:00:00 [facility] HPV9 2019-05-27 00:00:00 [facility] HPV9 2019-05-27 00:00:00 [facility] HPV9 2019-05-27 00:00:00 [facility] HPV9 2019-05-27 00:00:00 [facility] HPV9 2019-05-27 00:00:00 [facility] HPV9 2019-05-27 00:00:00 [facility] HPV9 2019-05-27 00:00:00 [facility] HPV9 2019-05-27 00:00:00 [facility] HPV9 2019-05-27 00:00:00 [facility] HPV9 2019-05-27 00:00:00 [facility] TDAP (ADACEL) VACCINE 2014-06-24 00:00:00 [facility] Meningococcal Vaccine 2014-06-24 00:00:00 [facility] TDAP (ADACEL) VACCINE 2014-06-24 00:00:00 Completed [facility] Meningococcal Vaccine 2014-06-24 00:00:00 [facility] TDAP (ADACEL) VACCINE 2014-06-24 00:00:00 [facility] Meningococcal Vaccine 2014-06-24 00:00:00 [facility] TDAP (ADACEL) VACCINE 2014-06-24 00:00:00 Completed [facility] Meningococcal Vaccine 2014-06-24 00:00:00 Completed [facility] TDAP (ADACEL) VACCINE 2014-06-24 00:00:00 Completed [facility] Meningococcal Vaccine 2014-06-24 00:00:00 Completed [facility] TDAP (ADACEL) VACCINE 2014-06-24 00:00:00 Completed [facility] Meningococcal Vaccine 2014-06-24 00:00:00 Completed [facility] TDAP (ADACEL) VACCINE 2014-06-24 00:00:00 Completed [facility] Meningococcal Vaccine 2014-06-24 00:00:00 [facility] TDAP (ADACEL) VACCINE 2014-06-24 00:00:00 [facility] Meningococcal Vaccine 2014-06-24 00:00:00 [facility] TDAP (ADACEL) VACCINE 2014-06-24 00:00:00 Completed [facility] Meningococcal Vaccine 2014-06-24 00:00:00 [facility] TDAP (ADACEL) VACCINE 2014-06-24 00:00:00 Completed [facility] Meningococcal Vaccine 2014-06-24 00:00:00 [facility] TDAP (ADACEL) VACCINE 2014-06-24 00:00:00 Completed [facility] Meningococcal Vaccine 2014-06-24 00:00:00 [facility] TDAP (ADACEL) VACCINE 2014-06-24 00:00:00 Completed [facility] Meningococcal Vaccine 2014-06-24 00:00:00 Completed [facility] TDAP (ADACEL) VACCINE 2014-06-24 00:00:00 Completed [facility] Meningococcal Vaccine 2014-06-24 00:00:00 Completed [facility] TDAP (ADACEL) VACCINE 2014-06-24 00:00:00 Completed [facility] Meningococcal Vaccine 2014-06-24 00:00:00 Completed [facility] TDAP (ADACEL) VACCINE 2014-06-24 00:00:00 Completed [facility] Meningococcal Vaccine 2014-06-24 00:00:00 Completed [facility] TDAP (ADACEL) VACCINE 2014-06-24 00:00:00 Completed [facility] Meningococcal Vaccine 2014-06-24 00:00:00 Completed [facility] TDAP (ADACEL) VACCINE 2014-06-24 00:00:00 [facility] Meningococcal Vaccine 2014-06-24 00:00:00 Completed [facility] TDAP (ADACEL) VACCINE 2014-06-24 00:00:00 Completed [facility] Meningococcal Vaccine 2014-06-24 00:00:00 Completed [facility] TDAP (ADACEL) VACCINE 2014-06-24 00:00:00 Completed [facility] Meningococcal Vaccine 2014-06-24 00:00:00 Completed [facility] TDAP (ADACEL) VACCINE 2014-06-24 00:00:00 Completed [facility] Meningococcal Vaccine 2014-06-24 00:00:00 Completed [facility] TDAP (ADACEL) VACCINE 2014-06-24 00:00:00 Completed [facility] Meningococcal Vaccine 2014-06-24 00:00:00 Completed [facility] TDAP (ADACEL) VACCINE 2014-06-24 00:00:00 Completed [facility] Meningococcal Vaccine 2014-06-24 00:00:00 Completed [facility] TDAP (ADACEL) VACCINE 2014-06-24 00:00:00 Completed [facility] Meningococcal Vaccine 2014-06-24 00:00:00 Completed [facility] TDAP (ADACEL) VACCINE 2014-06-24 00:00:00 [facility] Meningococcal Vaccine 2014-06-24 00:00:00 Completed [facility] TDAP (ADACEL) VACCINE 2014-06-24 00:00:00 Completed [facility] Meningococcal Vaccine 2014-06-24 00:00:00 Completed [facility] TDAP (ADACEL) VACCINE 2014-06-24 00:00:00 Completed [facility] Meningococcal Vaccine 2014-06-24 00:00:00 Completed [facility] TDAP (ADACEL) VACCINE 2014-06-24 00:00:00 Completed [facility] Meningococcal Vaccine 2014-06-24 00:00:00 [facility] TDAP (ADACEL) VACCINE 2014-06-24 00:00:00 [facility] Meningococcal Vaccine 2014-06-24 00:00:00 [facility] TDAP (ADACEL) VACCINE 2014-06-24 00:00:00 [facility] Meningococcal Vaccine 2014-06-24 00:00:00 [facility] TDAP (ADACEL) VACCINE 2013-03-12 00:00:00 [facility]pleted [facility] TDAP (ADACEL) VACCINE 2013-03-12 00:00:00 [facility] TDAP (ADACEL) VACCINE 2013-03-12 00:00:00 [facility] TDAP (ADACEL) VACCINE 2013-03-12 00:00:00 [facility] TDAP (ADACEL) VACCINE 2013-03-12 00:00:00 [facility] TDAP (ADACEL) VACCINE 2013-03-12 00:00:00 [facility] TDAP (ADACEL) VACCINE 2013-03-12 00:00:00 [facility] TDAP (ADACEL) VACCINE 2013-03-12 00:00:00 [facility] TDAP (ADACEL) VACCINE 2013-03-12 00:00:00 [facility] TDAP (ADACEL) VACCINE 2013-03-12 00:00:00 [facility] TDAP (ADACEL) VACCINE 2013-03-12 00:00:00 [facility] TDAP (ADACEL) VACCINE 2013-03-12 00:00:00 [facility] TDAP (ADACEL) VACCINE 2013-03-12 00:00:00 [facility] TDAP (ADACEL) VACCINE 2013-03-12 00:00:00 [facility] TDAP (ADACEL) VACCINE 2013-03-12 00:00:00 [facility] TDAP (ADACEL) VACCINE 2013-03-12 00:00:00 [facility] TDAP (ADACEL) VACCINE 2013-03-12 00:00:00 Completed [facility] TDAP (ADACEL) VACCINE 2013-03-12 00:00:00 [facility] TDAP (ADACEL) VACCINE 2013-03-12 00:00:00 [facility] TDAP (ADACEL) VACCINE 2013-03-12 00:00:00 [facility] TDAP (ADACEL) VACCINE 2013-03-12 00:00:00 Completed [facility] TDAP (ADACEL) VACCINE 2013-03-12 00:00:00 Completed [facility] TDAP (ADACEL) VACCINE 2013-03-12 00:00:00 Completed [facility] TDAP (ADACEL) VACCINE 2013-03-12 00:00:00 [facility] TDAP (ADACEL) VACCINE 2013-03-12 00:00:00 [facility]pleted [facility] TDAP (ADACEL) VACCINE 2013-03-12 00:00:00 [facility]pleted [facility] TDAP (ADACEL) VACCINE 2013-03-12 00:00:00 [facility]pleted [facility] TDAP (ADACEL) VACCINE 2013-03-12 00:00:00 [facility] TDAP (ADACEL) VACCINE 2013-03-12 00:00:00 [facility]pleted [facility] TDAP (ADACEL) VACCINE Unknown [facility] HPV9 Unknown [facility]pleted [facility] TDAP (ADACEL) VACCINE Unknown [facility] Meningococcal Vaccine Unknown [facility] HPV9 Unknown [facility] TDAP (ADACEL) VACCINE Unknown [facility] HPV9 Unknown [facility] TDAP (ADACEL) VACCINE Unknown [facility] Meningococcal Vaccine Unknown [facility] HPV9 Unknown Com[facility] SARS-COV-2 COVID-19 PFIZER VACCINE Unknown Completed [facility] SARS-COV-2 COVID-19 PFIZER VACCINE Unknown Completed [facility] Influenza Virus Vaccine Quad .5 mL IM 6+ MO (FLUZONE/FLULAVAL/F LUARIX) Unknown Completed [facility] TDAP (ADACEL) VACCINE Unknown Com[facility] HPV9 Unknown Completed [facility] TDAP (ADACEL) VACCINE Unknown Com[facility] Meningococcal Vaccine Unknown [facility] HPV9 Unknown Com[facility] SARS-COV-2 COVID-19 PFIZER VACCINE Unknown Completed [facility] SARS-COV-2 COVID-19 PFIZER VACCINE Unknown Completed [facility] Influenza Virus Vaccine Quad .5 mL IM 6+ MO (FLUZONE/FLULAVAL/F LUARIX) Unknown Completed [facility] TDAP (ADACEL) VACCINE Unknown [facility] HPV9 Unknown Com[facility] TDAP (ADACEL) VACCINE Unknown Com[facility] Meningococcal Vaccine Unknown [facility] HPV9 Unknown Com[facility] SARS-COV-2 COVID-19 PFIZER VACCINE Unknown Completed [facility] SARS-COV-2 COVID-19 PFIZER VACCINE Unknown Completed [facility] Influenza Virus Vaccine Quad .5 mL IM 6+ MO (FLUZONE/FLULAVAL/F LUARIX) Unknown Com[facility] TDAP (ADACEL) VACCINE Unknown [facility] HPV9 Unknown [facility] TDAP (ADACEL) VACCINE Unknown [facility] Meningococcal Vaccine Unknown [facility] HPV9 Unknown Com[facility] SARS-COV-2 COVID-19 PFIZER VACCINE Unknown Completed [facility] SARS-COV-2 COVID-19 PFIZER VACCINE Unknown Completed [facility] Influenza Virus Vaccine Quad .5 mL IM 6+ MO (FLUZONE/FLULAVAL/F LUARIX) Unknown Com[facility] TDAP (ADACEL) VACCINE Unknown [facility] HPV9 Unknown Com[facility] TDAP (ADACEL) VACCINE Unknown Com[facility] Meningococcal Vaccine Unknown [facility] HPV9 Unknown Com[facility] SARS-COV-2 COVID-19 PFIZER VACCINE Unknown Completed [facility] SARS-COV-2 COVID-19 PFIZER VACCINE Unknown Completed [facility] Influenza Virus Vaccine Quad .5 mL IM 6+ MO (FLUZONE/FLULAVAL/F LUARIX) Unknown Com[facility] TDAP (ADACEL) VACCINE Unknown [facility] HPV9 Unknown [facility] TDAP (ADACEL) VACCINE Unknown Com[facility] Meningococcal Vaccine Unknown [facility] HPV9 Unknown Com[facility] SARS-COV-2 COVID-19 PFIZER VACCINE Unknown Completed [facility] SARS-COV-2 COVID-19 PFIZER VACCINE Unknown Completed [facility] Influenza Virus Vaccine Quad .5 mL IM 6+ MO (FLUZONE/FLULAVAL/F LUARIX) Unknown Com[facility] TDAP (ADACEL) VACCINE Unknown [facility] HPV9 Unknown [facility] TDAP (ADACEL) VACCINE Unknown Com[facility] Meningococcal Vaccine Unknown [facility] HPV9 Unknown Com[facility] SARS-COV-2 COVID-19 PFIZER VACCINE Unknown Completed [facility] SARS-COV-2 COVID-19 PFIZER VACCINE Unknown Completed [facility] Influenza Virus Vaccine Quad .5 mL IM 6+ MO (FLUZONE/FLULAVAL/F LUARIX) Unknown Com[facility] TDAP (ADACEL) VACCINE Unknown [facility] HPV9 Unknown Com[facility] TDAP (ADACEL) VACCINE Unknown [facility] Meningococcal Vaccine Unknown [facility] HPV9 Unknown Com[facility] SARS-COV-2 COVID-19 PFIZER VACCINE Unknown Completed [facility] SARS-COV-2 COVID-19 PFIZER VACCINE Unknown Com[facility] Influenza Virus Vaccine Quad .5 mL IM 6+ MO (FLUZONE/FLULAVAL/F LUARIX) Unknown Com[facility] TDAP (ADACEL) VACCINE Unknown [facility] HPV9 Unknown [facility] TDAP (ADACEL) VACCINE Unknown [facility] Meningococcal Vaccine Unknown [facility] HPV9 Unknown [facility] SARS-COV-2 COVID-19 PFIZER VACCINE Unknown Completed [facility] SARS-COV-2 COVID-19 PFIZER VACCINE Unknown Com[facility] Influenza Virus Vaccine Quad .5 mL IM 6+ MO (FLUZONE/FLULAVAL/F LUARIX) Unknown Com[facility] TDAP (ADACEL) VACCINE Unknown [facility] HPV9 Unknown [facility] TDAP (ADACEL) VACCINE Unknown Com[facility] Meningococcal Vaccine Unknown [facility] HPV9 Unknown Com[facility] SARS-COV-2 COVID-19 PFIZER VACCINE Unknown Completed [facility] SARS-COV-2 COVID-19 PFIZER VACCINE Unknown Completed [facility] Influenza Virus Vaccine Quad .5 mL IM 6+ MO (FLUZONE/FLULAVAL/F LUARIX) Unknown Com[facility] TDAP (ADACEL) VACCINE Unknown [facility] HPV9 Unknown Com[facility] TDAP (ADACEL) VACCINE Unknown Com[facility] Meningococcal Vaccine Unknown [facility] HPV9 Unknown Com[facility] SARS-COV-2 COVID-19 PFIZER VACCINE Unknown Completed [facility] SARS-COV-2 COVID-19 PFIZER VACCINE Unknown Com[facility] Influenza Virus Vaccine Quad .5 mL IM 6+ MO (FLUZONE/FLULAVAL/F LUARIX) Unknown Com[facility] TDAP (ADACEL) VACCINE Unknown [facility] HPV9 Unknown [facility] TDAP (ADACEL) VACCINE Unknown Com[facility] Meningococcal Vaccine Unknown [facility] HPV9 Unknown Com[facility] SARS-COV-2 COVID-19 PFIZER VACCINE Unknown Com[facility] SARS-COV-2 COVID-19 PFIZER VACCINE Unknown Com[facility] Influenza Virus Vaccine Quad .5 mL IM 6+ MO (FLUZONE/FLULAVAL/F LUARIX) Unknown Com[facility] TDAP (ADACEL) VACCINE Unknown [facility] HPV9 Unknown [facility] TDAP (ADACEL) VACCINE Unknown [facility] Meningococcal Vaccine Unknown [facility] HPV9 Unknown Com[facility] SARS-COV-2 COVID-19 PFIZER VACCINE Unknown Completed [facility] SARS-COV-2 COVID-19 PFIZER VACCINE Unknown Com[facility] Influenza Virus Vaccine Quad .5 mL IM 6+ MO (FLUZONE/FLULAVAL/F LUARIX) Unknown Com[facility] TDAP (ADACEL) VACCINE Unknown [facility] HPV9 Unknown [facility] TDAP (ADACEL) VACCINE Unknown Com[facility] Meningococcal Vaccine Unknown [facility] HPV9 Unknown [facility] SARS-COV-2 COVID-19 PFIZER VACCINE Unknown Com[facility] SARS-COV-2 COVID-19 PFIZER VACCINE Unknown Com[facility] Influenza Virus Vaccine Quad .5 mL IM 6+ MO (FLUZONE/FLULAVAL/F LUARIX) Unknown Com[facility] TDAP (ADACEL) VACCINE Unknown [facility] HPV9 Unknown [facility] TDAP (ADACEL) VACCINE Unknown [facility] Meningococcal Vaccine Unknown [facility] HPV9 Unknown [facility] SARS-COV-2 COVID-19 PFIZER VACCINE Unknown Completed [facility] SARS-COV-2 COVID-19 PFIZER VACCINE Unknown Com[facility] Influenza Virus Vaccine Quad .5 mL IM 6+ MO (FLUZONE/FLULAVAL/F LUARIX) Unknown Com[facility] TDAP (ADACEL) VACCINE Unknown [facility] HPV9 Unknown [facility] TDAP (ADACEL) VACCINE Unknown [facility] Meningococcal Vaccine Unknown [facility] HPV9 Unknown Com[facility] SARS-COV-2 COVID-19 PFIZER VACCINE Unknown Com[facility] SARS-COV-2 COVID-19 PFIZER VACCINE Unknown Com[facility] Influenza Virus Vaccine Quad .5 mL IM 6+ MO (FLUZONE/FLULAVAL/F LUARIX) Unknown Com[facility] TDAP (ADACEL) VACCINE Unknown [facility] HPV9 Unknown [facility] TDAP (ADACEL) VACCINE Unknown [facility] Meningococcal Vaccine Unknown [facility] HPV9 Unknown [facility] SARS-COV-2 COVID-19 PFIZER VACCINE Unknown Com[facility] SARS-COV-2 COVID-19 PFIZER VACCINE Unknown Com[facility] Influenza Virus Vaccine Quad .5 mL IM 6+ MO (FLUZONE/FLULAVAL/F LUARIX) Unknown [facility] TDAP (ADACEL) VACCINE Unknown [facility] HPV9 Unknown [facility] TDAP (ADACEL) VACCINE Unknown [facility] Meningococcal Vaccine Unknown [facility] HPV9 Unknown [facility] SARS-COV-2 COVID-19 PFIZER VACCINE Unknown Com[facility] SARS-COV-2 COVID-19 PFIZER VACCINE Unknown Com[facility] Influenza Virus Vaccine Quad .5 mL IM 6+ MO (FLUZONE/FLULAVAL/F LUARIX) Unknown [facility] TDAP (ADACEL) VACCINE Unknown [facility] HPV9 Unknown [facility] TDAP (ADACEL) VACCINE Unknown [facility] Meningococcal Vaccine Unknown [facility] HPV9 Unknown [facility] SARS-COV-2 COVID-19 PFIZER VACCINE Unknown Com[facility] SARS-COV-2 COVID-19 PFIZER VACCINE Unknown Com[facility] Influenza Virus Vaccine Quad .5 mL IM 6+ MO (FLUZONE/FLULAVAL/F LUARIX) Unknown [facility] TDAP (ADACEL) VACCINE Unknown [facility] HPV9 Unknown [facility] TDAP (ADACEL) VACCINE Unknown [facility] Meningococcal Vaccine Unknown [facility] HPV9 Unknown [facility] SARS-COV-2 COVID-19 PFIZER VACCINE Unknown Com[facility] SARS-COV-2 COVID-19 PFIZER VACCINE Unknown Com[facility] Influenza Virus Vaccine Quad .5 mL IM 6+ MO (FLUZONE/FLULAVAL/F LUARIX) Unknown [facility] TDAP (ADACEL) VACCINE Unknown [facility] HPV9 Unknown [facility] TDAP (ADACEL) VACCINE Unknown [facility] Meningococcal Vaccine Unknown [facility] HPV9 Unknown [facility] SARS-COV-2 COVID-19 PFIZER VACCINE Unknown Com[facility] SARS-COV-2 COVID-19 PFIZER VACCINE Unknown Com[facility] Influenza Virus Vaccine Quad .5 mL IM 6+ MO (FLUZONE/FLULAVAL/F LUARIX) Unknown [facility] TDAP (ADACEL) VACCINE Unknown [facility] HPV9 Unknown [facility] TDAP (ADACEL) VACCINE Unknown [facility] Meningococcal Vaccine Unknown [facility] HPV9 Unknown [facility] SARS-COV-2 COVID-19 PFIZER VACCINE Unknown Com[facility] SARS-COV-2 COVID-19 PFIZER VACCINE Unknown Com[facility] Influenza Virus Vaccine Quad .5 mL IM 6+ MO (FLUZONE/FLULAVAL/F LUARIX) Unknown [facility] TDAP (ADACEL) VACCINE Unknown [facility] HPV9 Unknown Completed [facility] TDAP (ADACEL) VACCINE Unknown Completed [facility] Meningococcal Vaccine Unknown Completed [facility] HPV9 Unknown Completed [facility] SARS-COV-2 COVID-19 PFIZER VACCINE Unknown Completed [facility] SARS-COV-2 COVID-19 PFIZER VACCINE Unknown Completed [facility] Influenza Virus Vaccine Quad .5 mL IM 6+ MO (FLUZONE/FLULAVAL/F LUARIX) Unknown Completed [facility] TDAP (ADACEL) VACCINE Unknown Completed [facility] HPV9 Unknown Completed [facility] TDAP (ADACEL) VACCINE Unknown Completed [facility] Meningococcal Vaccine Unknown Completed [facility] HPV9 Unknown Completed [facility] SARS-COV-2 COVID-19 PFIZER VACCINE Unknown Completed [facility] SARS-COV-2 COVID-19 PFIZER VACCINE Unknown Completed [facility] Influenza Virus Vaccine Quad .5 mL IM 6+ MO (FLUZONE/FLULAVAL/F LUARIX) Unknown Completed [facility] TDAP (ADACEL) VACCINE Unknown Completed [facility] HPV9 Unknown Completed [facility] TDAP (ADACEL) VACCINE Unknown Completed [facility] Meningococcal Vaccine Unknown Completed [facility] HPV9 Unknown Completed [facility] SARS-COV-2 COVID-19 PFIZER VACCINE Unknown Completed [facility] SARS-COV-2 COVID-19 PFIZER VACCINE Unknown Completed [facility] Influenza Virus Vaccine Quad .5 mL IM 6+ MO (FLUZONE/FLULAVAL/F LUARIX) Unknown Completed [facility] TDAP (ADACEL) VACCINE Unknown Completed [facility] HPV9 Unknown Completed [facility] TDAP (ADACEL) VACCINE Unknown Completed [facility] Meningococcal Vaccine Unknown Completed [facility] HPV9 Unknown Completed [facility] SARS-COV-2 COVID-19 PFIZER VACCINE Unknown Completed [facility] SARS-COV-2 COVID-19 PFIZER VACCINE Unknown Completed [facility] Influenza Virus Vaccine Quad .5 mL IM 6+ MO (FLUZONE/FLULAVAL/F LUARIX) Unknown Completed [facility] TDAP (ADACEL) VACCINE Unknown Completed [facility] HPV9 Unknown Completed [facility] TDAP (ADACEL) VACCINE Unknown Completed [facility] Meningococcal Vaccine Unknown Completed [facility] HPV9 Unknown Completed [facility] SARS-COV-2 COVID-19 PFIZER VACCINE Unknown Completed [facility] SARS-COV-2 COVID-19 PFIZER VACCINE Unknown Completed [facility] Influenza Virus Vaccine Quad .5 mL IM 6+ MO (FLUZONE/FLULAVAL/F LUARIX) Unknown Completed [facility] TDAP (ADACEL) VACCINE Unknown Completed [facility] HPV9 Unknown Completed [facility] TDAP (ADACEL) VACCINE Unknown Completed [facility] Meningococcal Vaccine Unknown Completed [facility] HPV9 Unknown Completed [facility] SARS-COV-2 COVID-19 PFIZER VACCINE Unknown Completed [facility] SARS-COV-2 COVID-19 PFIZER VACCINE Unknown Completed [facility] Influenza Virus Vaccine Quad .5 mL IM 6+ MO (FLUZONE/FLULAVAL/F LUARIX) Unknown Completed [facility] TDAP (ADACEL) VACCINE Unknown Completed [facility] HPV9 Unknown Completed [facility] TDAP (ADACEL) VACCINE Unknown Completed [facility] Meningococcal Vaccine Unknown Completed [facility] HPV9 Unknown Completed [facility] SARS-COV-2 COVID-19 PFIZER VACCINE Unknown Completed [facility] SARS-COV-2 COVID-19 PFIZER VACCINE Unknown Completed [facility] Influenza Virus Vaccine Quad .5 mL IM 6+ MO (FLUZONE/FLULAVAL/F LUARIX) Unknown Completed [facility] TDAP (ADACEL) VACCINE Unknown Completed [facility] HPV9 Unknown Completed [facility] TDAP (ADACEL) VACCINE Unknown Completed [facility] Meningococcal Vaccine Unknown Completed [facility] HPV9 Unknown Completed [facility] SARS-COV-2 COVID-19 PFIZER VACCINE Unknown Completed [facility] SARS-COV-2 COVID-19 PFIZER VACCINE Unknown Completed [facility] Influenza Virus Vaccine Quad .5 mL IM 6+ MO (FLUZONE/FLULAVAL/F LUARIX) Unknown Completed [facility] TDAP (ADACEL) VACCINE Unknown Completed [facility] HPV9 Unknown Completed [facility] TDAP (ADACEL) VACCINE Unknown Completed [facility] Meningococcal Vaccine Unknown Completed [facility] HPV9 Unknown Completed [facility] SARS-COV-2 COVID-19 PFIZER VACCINE Unknown Completed [facility] SARS-COV-2 COVID-19 PFIZER VACCINE Unknown Completed [facility] Influenza Virus Vaccine Quad .5 mL IM 6+ MO (FLUZONE/FLULAVAL/F LUARIX) Unknown Completed [facility] TDAP (ADACEL) VACCINE Unknown Completed [facility] HPV9 Unknown Completed [facility] TDAP (ADACEL) VACCINE Unknown Completed [facility] Meningococcal Vaccine Unknown Completed [facility] HPV9 Unknown Completed [facility] SARS-COV-2 COVID-19 PFIZER VACCINE Unknown Completed [facility] SARS-COV-2 COVID-19 PFIZER VACCINE Unknown Completed [facility] Influenza Virus Vaccine Quad .5 mL IM 6+ MO (FLUZONE/FLULAVAL/F LUARIX) Unknown Completed [facility] TDAP (ADACEL) VACCINE Unknown Completed [facility] HPV9 Unknown Completed [facility] TDAP (ADACEL) VACCINE Unknown Completed [facility] Meningococcal Vaccine Unknown Completed [facility] HPV9 Unknown Completed [facility] SARS-COV-2 COVID-19 PFIZER VACCINE Unknown Completed [facility] SARS-COV-2 COVID-19 PFIZER VACCINE Unknown Completed [facility] Influenza Virus Vaccine Quad .5 mL IM 6+ MO (FLUZONE/FLULAVAL/F LUARIX) Unknown Completed [facility] TDAP (ADACEL) VACCINE Unknown Completed [facility] HPV9 Unknown Completed [facility] TDAP (ADACEL) VACCINE Unknown Completed [facility] Meningococcal Vaccine Unknown Completed [facility] HPV9 Unknown Completed [facility] SARS-COV-2 COVID-19 PFIZER VACCINE Unknown Completed [facility] SARS-COV-2 COVID-19 PFIZER VACCINE Unknown Completed [facility] Influenza Virus Vaccine Quad .5 mL IM 6+ MO (FLUZONE/FLULAVAL/F LUARIX) Unknown Completed [facility] TDAP (ADACEL) VACCINE Unknown Completed [facility] HPV9 Unknown Completed [facility] TDAP (ADACEL) VACCINE Unknown Completed [facility] Meningococcal Vaccine Unknown Completed [facility] HPV9 Unknown Completed [facility] SARS-COV-2 COVID-19 PFIZER VACCINE Unknown Completed [facility] SARS-COV-2 COVID-19 PFIZER VACCINE Unknown Completed [facility] Influenza Virus Vaccine Quad .5 mL IM 6+ MO (FLUZONE/FLULAVAL/F LUARIX) Unknown Completed [facility] TDAP (ADACEL) VACCINE Unknown Completed [facility] HPV9 Unknown Completed [facility] TDAP (ADACEL) VACCINE Unknown Completed [facility] Meningococcal Vaccine Unknown Completed [facility] HPV9 Unknown Completed [facility] SARS-COV-2 COVID-19 PFIZER VACCINE Unknown Completed [facility] SARS-COV-2 COVID-19 PFIZER VACCINE Unknown Completed [facility] Influenza Virus Vaccine Quad .5 mL IM 6+ MO (FLUZONE/FLULAVAL/F LUARIX) Unknown Completed [facility] TDAP (ADACEL) VACCINE Unknown Completed [facility] HPV9 Unknown Completed [facility] TDAP (ADACEL) VACCINE Unknown Completed [facility] Meningococcal Vaccine Unknown Completed [facility] HPV9 Unknown Completed [facility] SARS-COV-2 COVID-19 PFIZER VACCINE Unknown Completed [facility] SARS-COV-2 COVID-19 PFIZER VACCINE Unknown Completed [facility] Influenza Virus Vaccine Quad .5 mL IM 6+ MO (FLUZONE/FLULAVAL/F LUARIX) Unknown Completed [facility] TDAP (ADACEL) VACCINE Unknown Completed [facility] HPV9 Unknown Completed [facility] TDAP (ADACEL) VACCINE Unknown Completed [facility] Meningococcal Vaccine Unknown Completed [facility] HPV9 Unknown Completed [facility] SARS-COV-2 COVID-19 PFIZER VACCINE Unknown Completed [facility] SARS-COV-2 COVID-19 PFIZER VACCINE Unknown Completed [facility] Influenza Virus Vaccine Quad .5 mL IM 6+ MO (FLUZONE/FLULAVAL/F LUARIX) Unknown Completed [facility] TDAP (ADACEL) VACCINE Unknown Completed [facility] HPV9 Unknown Completed [facility] TDAP (ADACEL) VACCINE Unknown Completed [facility] Meningococcal Vaccine Unknown Completed [facility] HPV9 Unknown Completed [facility] SARS-COV-2 COVID-19 PFIZER VACCINE Unknown Completed [facility] SARS-COV-2 COVID-19 PFIZER VACCINE Unknown Completed [facility] Influenza Virus Vaccine Quad .5 mL IM 6+ MO (FLUZONE/FLULAVAL/F LUARIX) Unknown Completed [facility] TDAP (ADACEL) VACCINE Unknown Completed [facility] HPV9 Unknown Completed [facility] TDAP (ADACEL) VACCINE Unknown Completed [facility] Meningococcal Vaccine Unknown Completed [facility] HPV9 Unknown Completed [facility] SARS-COV-2 COVID-19 PFIZER VACCINE Unknown Completed [facility] SARS-COV-2 COVID-19 PFIZER VACCINE Unknown Completed [facility] Influenza Virus Vaccine Quad .5 mL IM 6+ MO (FLUZONE/FLULAVAL/F LUARIX) Unknown Completed [facility] TDAP (ADACEL) VACCINE Unknown Completed [facility] HPV9 Unknown Completed [facility] TDAP (ADACEL) VACCINE Unknown Completed [facility] Meningococcal Vaccine Unknown Completed [facility] HPV9 Unknown Completed [facility] SARS-COV-2 COVID-19 PFIZER VACCINE Unknown Completed [facility] SARS-COV-2 COVID-19 PFIZER VACCINE Unknown Completed [facility] Influenza Virus Vaccine Quad .5 mL IM 6+ MO (FLUZONE/FLULAVAL/F LUARIX) Unknown Completed [facility] TDAP (ADACEL) VACCINE Unknown Completed [facility] HPV9 Unknown Completed [facility] TDAP (ADACEL) VACCINE Unknown Completed [facility] Meningococcal Vaccine Unknown Completed [facility] HPV9 Unknown Completed [facility] SARS-COV-2 COVID-19 PFIZER VACCINE Unknown Completed [facility] SARS-COV-2 COVID-19 PFIZER VACCINE Unknown Completed [facility] Influenza Virus Vaccine Quad .5 mL IM 6+ MO (FLUZONE/FLULAVAL/F LUARIX) Unknown Completed [facility] TDAP (ADACEL) VACCINE Unknown Completed [facility] HPV9 Unknown Completed [facility] TDAP (ADACEL) VACCINE Unknown Completed [facility] Meningococcal Vaccine Unknown Completed [facility] HPV9 Unknown Completed [facility] SARS-COV-2 COVID-19 PFIZER VACCINE Unknown Completed [facility] SARS-COV-2 COVID-19 PFIZER VACCINE Unknown Completed [facility] Influenza Virus Vaccine Quad .5 mL IM 6+ MO (FLUZONE/FLULAVAL/F LUARIX) Unknown Completed [facility] TDAP (ADACEL) VACCINE Unknown Completed [facility] HPV9 Unknown Completed [facility] TDAP (ADACEL) VACCINE Unknown Completed [facility] Meningococcal Vaccine Unknown Completed [facility] HPV9 Unknown Completed [facility] SARS-COV-2 COVID-19 PFIZER VACCINE Unknown Completed [facility] SARS-COV-2 COVID-19 PFIZER VACCINE Unknown Completed [facility] Influenza Virus Vaccine Quad .5 mL IM 6+ MO (FLUZONE/FLULAVAL/F LUARIX) Unknown Completed [facility] TDAP (ADACEL) VACCINE Unknown Completed [facility] HPV9 Unknown Completed [facility] TDAP (ADACEL) VACCINE Unknown Completed [facility] Meningococcal Vaccine Unknown Completed [facility] HPV9 Unknown Completed [facility] SARS-COV-2 COVID-19 PFIZER VACCINE Unknown Completed [facility] SARS-COV-2 COVID-19 PFIZER VACCINE Unknown Completed [facility] Influenza Virus Vaccine Quad .5 mL IM 6+ MO (FLUZONE/FLULAVAL/F LUARIX) Unknown Completed [facility] TDAP (ADACEL) VACCINE Unknown Completed [facility] HPV9 Unknown Completed [facility] TDAP (ADACEL) VACCINE Unknown Completed [facility] Meningococcal Vaccine Unknown Completed [facility] HPV9 Unknown Completed [facility] SARS-COV-2 COVID-19 PFIZER VACCINE Unknown Completed [facility] SARS-COV-2 COVID-19 PFIZER VACCINE Unknown Completed [facility] Influenza Virus Vaccine Quad .5 mL IM 6+ MO (FLUZONE/FLULAVAL/F LUARIX) Unknown Completed [facility] Vital Signs Vital Name Observation Time Observation Value Comments S ource Systolic blood pressure 2024-03-09 14:01:00 119 mm[Hg] [facility] Diastolic blood pressure 2024-03-09 14:01:00 75 mm[Hg] [facility] Heart rate 2024-03-09 14:01:00 91 /min [facility] Body temperature 2024-03-09 14:01:00 36.28 [facility] Body height 2024-03-09 14:01:00 162.6 cm [facility] Body weight 2024-03-09 14:01:00 72.054 kg [facility] BMI 2024-03-09 14:01:00 27.27 kg/m2 [facility] Systolic blood pressure 2024-02-26 15:15:00 129 mm[Hg] [facility] Diastolic blood pressure 2024-02-26 15:15:00 76 mm[Hg] [facility] Heart rate 2024-02-26 15:15:00 74 /min [facility] Body temperature 2024-02-26 15:15:00 36.78 [facility] Respiratory rate 2024-02-26 15:15:00 18 /min [facility] Body height 2024-02-26 15:15:00 162.6 cm [facility] Body weight 2024-02-26 15:15:00 68.312 kg [facility] BMI 2024-02-26 15:15:00 25.85 kg/m2 [facility] Systolic blood pressure 2024-02-24 20:34:00 132 mm[Hg] [facility] Diastolic blood pressure 2024-02-24 20:34:00 91 mm[Hg] [facility] Heart rate 2024-02-24 20:25:00 112 /min [facility] Body temperature 2024-02-24 20:25:00 36.83 [facility] Respiratory rate 2024-02-24 20:25:00 17 /min [facility] Body weight 2024-02-24 20:25:00 67.586 kg [facility] BMI 2024-02-24 20:25:00 25.56 kg/m2 [facility] Systolic blood pressure 2024-02-13 08:00:00 124 mm[Hg] [facility] Diastolic blood pressure 2024-02-13 08:00:00 69 mm[Hg] [facility] Heart rate 2024-02-13 08:00:00 64 /min [facility] Oxygen saturation in Arterial blood by Pulse oximetry 2024-02-13 08:00:00 100 /min [facility] Body height 2024-02-13 05:52:00 162.6 cm [facility] Body weight 2024-02-13 05:52:00 65.635 kg [facility] BMI 2024-02-13 05:52:00 24.83 kg/m2 [facility] Body temperature 2024-02-13 05:21:00 36.67 [facility] Respiratory rate 2024-02-13 05:21:00 18 /min [facility] Systolic blood pressure 2024-02-12 15:16:00 131 mm[Hg] [facility] Diastolic blood pressure 2024-02-12 15:16:00 89 mm[Hg] [facility] Heart rate 2024-02-12 15:16:00 93 /min [facility] Body temperature 2024-02-12 15:16:00 36.67 [facility] Respiratory rate 2024-02-12 15:16:00 18 /min [facility] Body height 2024-02-12 15:16:00 162.6 cm [facility] Body weight 2024-02-12 15:16:00 65.817 kg [facility] BMI 2024-02-12 15:16:00 24.91 kg/m2 [facility] Systolic blood pressure 2024-02-12 03:27:00 135 mm[Hg] [facility] Diastolic blood pressure 2024-02-12 03:27:00 81 mm[Hg] [facility] Heart rate 2024-02-12 03:27:00 78 /min [facility] Respiratory rate 2024-02-12 03:27:00 18 /min [facility] Body height 2024-02-12 03:27:00 162.6 cm [facility] Body weight 2024-02-12 03:27:00 65.772 kg [facility] BMI 2024-02-12 03:27:00 24.89 kg/m2 [facility] Systolic blood pressure 2024-01-30 15:31:00 100 mm[Hg] [facility] Diastolic blood pressure 2024-01-30 15:31:00 65 mm[Hg] [facility] Heart rate 2024-01-30 15:31:00 91 /min [facility] Body temperature 2024-01-30 15:31:00 36.56 [facility] Respiratory rate 2024-01-30 15:31:00 18 /min [facility] Body height 2024-01-30 15:31:00 162.6 cm [facility] Body weight 2024-01-30 15:31:00 65.97 kg [facility] BMI 2024-01-30 15:31:00 24.96 kg/m2 [facility] Systolic blood pressure 2024-01-27 15:22:00 133 mm[Hg] [facility] Diastolic blood pressure 2024-01-27 15:22:00 78 mm[Hg] [facility] Heart rate 2024-01-27 15:22:00 98 /min [facility] Body temperature 2024-01-27 15:22:00 36.61 [facility] Respiratory rate 2024-01-27 15:22:00 18 /min [facility] Body height 2024-01-27 15:22:[address] [facility] 2024-01-27 15:22:00 66.134 kg [facility] BMI 2024-01-27 15:22:00 25.03 kg/m2 [facility] Systolic blood pressure 2024-01-25 06:00:00 130 mm[Hg] [facility] Diastolic blood pressure 2024-01-25 06:00:00 70 mm[Hg] [facility] Heart rate 2024-01-25 06:00:00 75 /min [facility] Respiratory rate 2024-01-25 06:00:00 17 /min [facility] Oxygen saturation in Arterial blood by Pulse oximetry 2024-01-25 06:00:00 100 /min [facility] Body temperature 2024-01-25 05:18:00 36.56 [facility] Body height 2024-01-25 04:56:00 162.6 cm [facility] Body weight 2024-01-25 04:56:00 67.359 kg [facility] BMI 2024-01-25 04:56:00 25.49 kg/m2 [facility] Systolic blood pressure 2024-01-15 15:14:00 130 mm[Hg] [facility] Diastolic blood pressure 2024-01-15 15:14:00 75 mm[Hg] [facility] Heart rate 2024-01-15 15:14:00 92 /min [facility] Body temperature 2024-01-15 15:14:00 36.22 [facility] Respiratory rate 2024-01-15 15:14:00 17 /min [facility] Body height 2024-01-15 15:14:00 162.6 cm [facility] Body weight 2024-01-15 15:14:00 64.501 kg [facility] BMI 2024-01-15 15:14:00 24.41 kg/m2 [facility] Systolic blood pressure 2024-01-01 15:28:00 132 mm[Hg] [facility] Diastolic blood pressure 2024-01-01 15:28:00 69 mm[Hg] [facility] Heart rate 2024-01-01 15:28:00 78 /min [facility] Body temperature 2024-01-01 15:28:00 36.61 [facility] Respiratory rate 2024-01-01 15:28:00 18 /min [facility] Body height 2024-01-01 15:28:00 162.6 cm [facility] Body weight 2024-01-01 15:28:00 63.22 kg [facility] BMI 2024-01-01 15:28:00 23.92 kg/m2 [facility] Systolic blood pressure 2023-12-30 13:56:00 127 mm[Hg] [facility] Diastolic blood pressure 2023-12-30 13:56:00 80 mm[Hg] [facility] Heart rate 2023-12-30 13:56:00 76 /min [facility] Body temperature 2023-12-30 13:56:00 36.11 [facility] Respiratory rate 2023-12-30 13:56:00 18 /min [facility] Body height 2023-12-30 13:56:00 162.6 cm [facility] Body weight 2023-12-30 13:56:00 63.957 kg [facility] BMI 2023-12-30 13:56:00 24.20 kg/m2 [facility] Systolic blood pressure 2023-12-10 18:34:00 118 mm[Hg] [facility] Diastolic blood pressure 2023-12-10 18:34:00 68 mm[Hg] [facility] Heart rate 2023-12-10 18:34:00 74 /min [facility] Body temperature 2023-12-10 18:34:00 36.44 [facility] Respiratory rate 2023-12-10 18:34:00 18 /min [facility] Body height 2023-12-10 18:34:00 162.6 cm [facility] Body weight 2023-12-10 18:34:00 61.19 kg [facility] BMI 2023-12-10 18:34:00 23.16 kg/m2 [facility] Systolic blood pressure 2023-11-14 14:36:00 127 mm[Hg] [facility] Diastolic blood pressure 2023-11-14 14:36:00 82 mm[Hg] [facility] Heart rate 2023-11-14 14:36:00 91 /min [facility] Body temperature 2023-11-14 14:36:00 36.89 [facility] Respiratory rate 2023-11-14 14:36:00 18 /min [facility] Body height 2023-11-14 14:36:00 162.6 cm [facility] Body weight 2023-11-14 14:36:00 60.782 kg [facility] BMI 2023-11-14 14:36:00 23.00 kg/m2 [facility] Systolic blood pressure 2023-11-12 04:00:00 127 mm[Hg] [facility] Diastolic blood pressure 2023-11-12 04:00:00 55 mm[Hg] [facility] Heart rate 2023-11-12 04:00:00 69 /min [facility] Body temperature 2023-11-12 04:00:00 37.22 [facility] Respiratory rate 2023-11-12 04:00:00 16 /min [facility] Oxygen saturation in Arterial blood by Pulse oximetry 2023-11-12 04:00:00 100 /min [facility] Body height 2023-11-12 02:44:00 162.6 cm [facility] Body weight 2023-11-12 02:44:00 58.968 kg [facility] BMI 2023-11-12 02:44:00 22.31 kg/m2 [facility] Systolic blood pressure 2023-10-24 16:38:00 140 mm[Hg] [facility] Diastolic blood pressure 2023-10-24 16:38:00 88 mm[Hg] [facility] Heart rate 2023-10-24 16:38:00 78 /min [facility] Body temperature 2023-10-24 16:38:00 37.33 [facility] Respiratory rate 2023-10-24 16:38:00 22 /min [facility] Body height 2023-10-24 16:38:00 162.6 cm [facility] Body weight 2023-10-24 16:38:00 58.968 kg [facility] BMI 2023-10-24 16:38:00 22.31 kg/m2 [facility] Oxygen saturation in Arterial blood by Pulse oximetry 2023-10-24 16:38:00 100 /min [facility] Systolic blood pressure 2023-08-20 20:26:00 136 mm[Hg] [facility] Diastolic blood pressure 2023-08-20 20:26:00 81 mm[Hg] [facility] Heart rate 2023-08-20 20:26:00 68 /min [facility] Body temperature 2023-08-20 20:26:00 36.17 [facility] Respiratory rate 2023-08-20 20:26:00 18 /min [facility] Body height 2023-08-20 20:26:00 165.1 cm [facility] Body weight 2023-08-20 20:26:00 62.642 kg [facility] BMI 2023-08-20 20:26:00 22.98 kg/m2 [facility] Systolic blood pressure 2023-04-24 15:10:00 148 mm[Hg] [facility] Diastolic blood pressure 2023-04-24 15:10:00 99 mm[Hg] [facility] Heart rate 2023-04-24 15:10:00 87 /min [facility] Body temperature 2023-04-24 15:10:00 37.11 [facility] Respiratory rate 2023-04-24 15:10:00 18 /min [facility] Body height 2023-04-24 15:10:00 165.1 cm [facility] Body weight 2023-04-24 15:10:00 62.596 kg [facility] BMI 2023-04-24 15:10:00 22.96 kg/m2 [facility] Oxygen saturation in Arterial blood by Pulse oximetry 2023-04-24 15:10:00 100 /min [facility] Systolic blood pressure 2023-04-18 15:54:00 141 mm[Hg] [facility] Diastolic blood pressure 2023-04-18 15:54:00 73 mm[Hg] [facility] Heart rate 2023-04-18 15:54:00 58 /min [facility] Body temperature 2023-04-18 15:54:00 36.28 [facility] Respiratory rate 2023-04-18 15:54:00 18 /min [facility] Body height 2023-04-18 15:54:00 162.6 cm [facility] Body weight 2023-04-18 15:54:00 62.914 kg [facility] BMI 2023-04-18 15:54:00 23.81 kg/m2 [facility] Systolic blood pressure 2023-04-01 18:05:00 140 mm[Hg] [facility] Diastolic blood pressure 2023-04-01 18:05:00 87 mm[Hg] [facility] Heart rate 2023-04-01 18:02:00 97 /min [facility] Body temperature 2023-04-01 18:02:00 36 [facility] Body height 2023-04-01 18:02:00 165.1 cm [facility] Body weight 2023-04-01 18:02:00 61.236 kg [facility] BMI 2023-04-01 18:02:00 22.47 kg/m2 [facility] Oxygen saturation in Arterial blood by Pulse oximetry 2023-04-01 18:02:00 97 /min [facility] Systolic blood pressure 2023-02-14 15:01:00 126 mm[Hg] [facility] Diastolic blood pressure 2023-02-14 15:01:00 58 mm[Hg] [facility] Heart rate 2023-02-14 15:01:00 70 /min [facility] Body temperature 2023-02-14 15:01:00 36.61 [facility] Respiratory rate 2023-02-14 15:01:00 18 /[facility] Body height 2023-02-14 15:01:[address] [facility] Body weight 2023-02-14 15:01:[address] [facility] BMI 2023-02-14 15:01:00 24.51 kg/m2 [facility] Oxygen saturation in Arterial blood by Pulse oximetry 2023-02-14 15:01:00 100 /min [facility] Systolic blood pressure 2023-01-03 14:37:00 130 mm[Hg] [facility] Diastolic blood pressure 2023-01-03 14:37:00 85 mm[Hg] [facility] Heart rate 2023-01-03 14:37:00 66 /min [facility] Body temperature 2023-01-03 14:37:00 36.28 [facility] Body height 2023-01-03 14:37:[address] [facility] Body weight 2023-01-03 14:37:00 68.221 kg [facility] BMI 2023-01-03 14:37:00 25.03 kg/m2 [facility] Oxygen saturation in Arterial blood by Pulse oximetry 2023-01-03 14:37:00 98 /min [facility] Body temperature 2022-12-28 00:30:00 37.22 [facility] Respiratory rate 2022-12-28 00:30:00 16 /min [facility] Body height 2022-12-28 00:30:[address] [facility] Body weight 2022-12-28 00:30:00 67.858 kg [facility] BMI 2022-12-28 00:30:00 24.89 kg/m2 [facility] Oxygen saturation in Arterial blood by Pulse oximetry 2022-12-28 00:30:00 100 /min [facility] Systolic blood pressure 2022-12-28 00:30:00 133 mm[Hg] [facility] Diastolic blood pressure 2022-12-28 00:30:00 75 mm[Hg] [facility] Heart rate 2022-12-28 00:30:00 82 /min [facility] Systolic blood pressure 2022-12-28 00:06:00 145 mm[Hg] [facility] Diastolic blood pressure 2022-12-28 00:06:00 102 mm[Hg] [facility] Heart rate 2022-12-28 00:06:00 88 /min [facility] Body temperature 2022-12-28 00:06:00 36.39 [facility] Respiratory rate 2022-12-28 00:06:00 17 /min [facility] Body weight 2022-12-28 00:06:00 67.813 kg [facility] BMI 2022-12-28 00:06:00 25.66 kg/m2 [facility] Oxygen saturation in Arterial blood by Pulse oximetry 2022-12-28 00:06:00 98 /min [facility] Systolic blood pressure 2022-12-20 14:41:00 128 mm[Hg] [facility] Diastolic blood pressure 2022-12-20 14:41:00 79 mm[Hg] [facility] Heart rate 2022-12-20 14:41:00 79 /min [facility] Body temperature 2022-12-20 14:41:00 36 [facility] Respiratory rate 2022-12-20 14:41:00 18 /min [facility] Body height 2022-12-20 14:41:00 162.6 cm [facility] Body weight 2022-12-20 14:41:00 69.854 kg [facility] BMI 2022-12-20 14:41:00 26.43 kg/m2 [facility] Systolic blood pressure 2022-09-21 15:50:00 132 mm[Hg] [facility] Diastolic blood pressure 2022-09-21 15:50:00 73 mm[Hg] [facility] Heart rate 2022-09-21 15:45:00 73 /min [facility] Body temperature 2022-09-21 15:45:00 36.72 [facility] Respiratory rate 2022-09-21 15:45:00 19 /min [facility] Body height 2022-09-21 15:45:[address] [facility] Body weight 2022-09-21 15:45:00 76.068 kg [facility] BMI 2022-09-21 15:45:00 27.91 kg/m2 [facility] Systolic blood pressure 2022-02-15 13:51:00 127 mm[Hg] [facility] Diastolic blood pressure 2022-02-15 13:51:00 88 mm[Hg] [facility] Heart rate 2022-02-15 13:51:00 71 /min [facility] Body temperature 2022-02-15 13:51:00 36.11 [facility] Respiratory rate 2022-02-15 13:51:00 16 /min [facility] Body height 2022-02-15 13:51:00 165.1 cm [facility] Body weight 2022-02-15 13:51:00 89.313 kg [facility] BMI 2022-02-15 13:51:00 32.77 kg/m2 [facility] Procedures Procedure Date / Time Performed Performing Clinician Source POCT URINALYSIS 2024-03-09 15:24:00 Leslie Castellanos [facility] POCT URINALYSIS 2024-02-26 15:16:00 Leslie Castellanos [facility] POCT URINALYSIS 2024-02-24 00:00:00 Leslie Castellanos [facility] US PELVIS > 14 WEEKS 2024-02-12 05:19:40 Naveen Patel [facility] URINALYSIS 2024-02-12 03:50:00 Naveen Patel [facility] ADC CLC OR LCC ONLY - WET PREP 2024-02-12 03:40:00 Naveen Patel [facility] SECOND AND THIRD TRIMESTER ULTRASOUND 2024-02-05 15:06:00 Leslie Castellanos [facility] POCT URINALYSIS 2024-01-27 16:18:00 Leslie Castellanos [facility] POCT URINALYSIS 2024-01-01 15:29:00 Leslie Castellanos [facility] POCT URINALYSIS 2023-12-30 13:59:00 Leslie Castellanos [facility] POCT URINALYSIS 2023-12-10 19:51:00 Leslie Castellanos [facility] FIRST TRIMESTER ULTRASOUND 2023-11-27 20:41:01 Leslie Castellanos [facility] PAP SMEAR-LIQUID BASED-CP 2023-11-14 16:19:00 Leslie Castellanos [facility] GLUCOSE 1 HOUR POST PRANDIAL 2023-11-14 15:53:00 Leslie Catsellanos [facility] CBC WITH DIFF 2023-11-14 15:53:00 Leslie Castellanos [facility] HEPATITIS B SURFACE ANTIGEN 2023-11-14 15:53:00 Leslie Castellanos [facility] HB ABO GROUPING 2023-11-14 15:53:00 Leslie Castellanos [facility] HIV 1/2 AG-AB WITH REFLEX 2023-11-14 15:53:00 Leslie Castellanos [facility] POCT URINALYSIS W/O SPECIFIC GRAVITY 2023-11-14 14:37:00 Carla Vaughn [facility] POCT TEST 2023-11-14 14:27:00 Sivan Vaughn [facility] LIPASE 2023-11-12 03:10:00 Arnold Blum [facility] COMP. METABOLIC PANEL ([id number]) 2023-11-12 03:10:00 Arnold Blum [facility] CBC WITH DIFF 2023-11-12 03:10:00 Arnold Blum [facility] URINALYSIS 2023-11-12 03:10:00 Arnold Blum [facility] ABORH CONFIRMATION (LAB ONLY) 2023-10-24 18:54:00 Nacho Nguyen [facility] THYROID STIMULATING HORMONE 2023-10-24 17:55:00 Nacho Nguyen [facility] COMP. METABOLIC PANEL ([id number]) 2023-10-24 17:55:00 Nacho Nguyen [facility] TOTAL BETA HCG ASSAY 2023-10-24 17:55:00 Wendy, And [facility] CBC WITH DIFF 2023-10-24 17:55:00 Nacho Nguyen [facility] HB ABO GROUPING 2023-10-24 17:55:00 Nacho Nguyen [facility] CONSENT/REFUSAL FOR DIAGNOSIS AND TREATMENT 2023-10-24 16:28:49 Doctor Unassigned, [place] [facility] POCT TEST 2023-04-24 15:42:00 Berkley Dickson [facility] URINALYSIS 2023-04-24 15:38:00 Rahel Dickson [facility] ASSIGNMENT OF BENEFITS 2023-04-24 15:20:04 Docto r Unassigned, [place] [facility] CONSENT/REFUSAL FOR DIAGNOSIS AND TREATMENT 2023-04-24 15:04:50 Doctor Unassigned, [place] [facility] POCT TEST 2023-04-18 00:00:00 Adriano Olivier [facility] COMP. METABOLIC PANEL ([id number]) 2023-04-01 18:36:00 Eliza Olivier [facility] CBC WITH DIFF 2023-04-01 18:36:00 Eliza Olivier [facility] POCT URINALYSIS 2023-01-03 15:09:00 Eliza Olivier [facility] POCT TEST 2023-01-03 15:09:00 Adriano Olivier [facility] CT ABDOMEN PELVIS W CONTRAST 2022-12-28 02:03:46 Yaw Bro [facility] ASSIGNMENT OF BENEFITS 2022-12-28 01:22:25 Docto r Unassigned, [place] [facility] POCT TEST 2022-12-28 01:05:00 Kasandra Bro [facility] LIPASE 2022-12-28 01:04:[address] [facility] THYROID STIMULATING HORMONE 2022-12-28 01:04:00 Yaw Bro [facility] COMP. METABOLIC PANEL ([id number]) 2022-12-28 01:04:00 Yaw Bro [facility] CBC WITH DIFF 2022-12-28 01:04:00 Yaw Bro [facility] URINALYSIS 2022-12-28 01:04:[address] [facility] CONSENT/REFUSAL FOR DIAGNOSIS AND TREATMENT 2022-12-28 00:17:56 Doctor Unassigned, [place] [facility] ASSIGNMENT OF BENEFITS 2022-12-20 14:26:08 Docto r Unassigned, [place] [facility] POCT TEST 2022-09-21 00:00:00 Sivan Vaughn [facility] Encounters Start Date/Time End Date/Time Encounter Type Admission Type Attending Clinicians Care Facility Care Department Encounter ID Source 2024-01-25 01:57:28 Outpatient X [facility] [id number] [facility] 2021-06-08 19:53:15 Emergency [facility] [id number] [facility] 2024-03-09 09:00:00 2024-03-09 09:35:22 Outpatient R TWILA BARGER JELISA [facility] [id number] [facility] 2024-03-09 09:00:00 2024-03-09 09:35:22 Routine Visit Provider, Twila Hendricks [facility] TEST CLERK [facility] MATERNAL & [facility]ILD [facility] 1.2.840.114 350.1.13.10 4.2.7.2.686 [id number] 107 [id number] [facility] 2024-02-04 00:00:00 2024-03-07 18:21:44 Patient Secure Msg Doctor Unassigned, [place] [facility] 1.84.114 350.1.13.10 4.2.7.2.686 [id number] [facility] 2024-03-04 00:00:00 2024-03-04 16:35:43 Abstract Leslie Castellanos [facility] TEST CLERK 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 & CHILD [facility] 1.840.114 350.1.13.10 4.2.7.2.686 [id number] [facility] 2024-03-02 10:30:00 2024-03-02 10:30:00 Outpatient SEAN JASSO SANGEETA JAIN, SANGEETA [facility] [id number] [facility] 2024-02-26 10:00:00 2024-02-26 10:30:05 Outpatient LESLIE BOWER [facility] [id number] [facility] 2024-02-26 10:00:00 2024-02-26 10:30:05 Routine Visit Risk, Arcadio-Rmchp-N p/High Leslie Castellanos [facility] TEST CLERK [facility] 1.840.114 350.1.13.10 4.2.7.2.686 [id number] [facility] 2024-02-25 12:40:00 2024-02-25 12:40:00 Outpatient CLAUDIA FLAHERTY HOWARD [facility] [id number] [facility] 2024-02-24 15:30:00 2024-02-24 15:44:11 Outpatient LESLIE BOWER [facility] [id number] [facility] 2024-02-24 15:30:00 2024-02-24 15:44:11 Routine Visit Leslie Castellanos [facility] TEST CLERK [facility] MATERNAL & [facility]ILD [facility] 1..840.114 350.1.13.10 4.2.7.2.686 [id number] 107 [id number] [facility] 2024-02-20 14:00:00 2024-02-20 14:00:00 Outpatient DEXTER BASILIO KRISTIN [facility] [id number] [facility] 2024-02-19 13:30:00 2024-02-19 13:30:00 Outpatient DEXTER BASILIO [facility] [id number] [facility] 2024-02-14 00:00:00 2024-02-14 13:45:54 Eliza Plascencia [facility] 1..840.114 350.1.13.10 4.2.7.2.686 [id number] [facility] 2024-02-13 00:34:00 2024-02-13 03:32:00 Outpatient THOMAS KIRK COREY [facility] [id number] [facility] 2024-02-13 00:34:00 2024-02-13 03:32:00 Hospital Encounter Thomas Hardy [facility] 1..840.114 350.1.13.10 4.2.7.2.686 [id number] [facility] 2024-02-12 10:15:00 2024-02-12 10:37:04 Outpatient RANDI JENSEN [facility] [id number] [facility] 2024-02-12 10:15:00 2024-02-12 10:37:04 Routine Visit Risk, BryceRmchp-N p/High Randi Do [facility] TEST CLERK [facility] & CHILD [facility] 1..840.114 350.1.13.10 4.2.7.2.686 [id number] 107 [id number] [facility] 2024-02-11 22:07:00 2024-02-12 00:57:00 Outpatient X NAVEEN PATEL VIEN [facility] [id number] [facility] 2024-02-11 22:07:00 2024-02-12 00:57:00 Emergency Naveen Patel [facility] 1..840.114 350.1.13.10 4.2.7.2.686 [id number] [facility] 2024-01-03 00:00:00 2024-02-08 18:21:19 Patient Secure Msg Leslie Castellanos [facility] TEST CLERK [facility] CHILD [facility] 1..840.114 350.1.13.10 4.2.7.2.686 [id number] 107 [id number] [facility] 2024-02-06 00:00:00 2024-02-06 14:00:07 Abstract Leslie Castellanos [facility] TEST CLERK 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 & CHILD [facility] 1..840.114 350.1.13.10 4.2.7.2.686 [id number] [facility] 2023-12-26 00:00:00 2024-02-01 18:25:03 Patient Secure Msg Doctor Unassigned, [place] [facility] 1.840.114 350.1.13.10 4.2.7.2.686 [id number] [facility] 2024-01-30 10:15:00 2024-01-30 10:52:57 Outpatient R DEXTER MCCONNELL [facility] [id number] [facility] 2024-01-30 10:15:00 2024-01-30 10:52:57 Routine Visit Risk, Arcadio-Rmchp-N p/High Dexter Mcconnell [facility] TEST CLERK [facility] & CHILD [facility] 1..840.114 350.1.13.10 4.2.7.2.686 [id number] [facility] 2024-01-28 00:00:00 2024-01-28 14:32:43 Telephone Leslie Castellanos [facility] TEST CLERK [facility] & CHILD [facility] 1..840.114 350.1.13.10 4.2.7.2.686 [id number] [facility] 2024-01-27 10:30:00 2024-01-27 11:15:23 Outpatient R LESLIE CASTELLANOS [facility] [id number] [facility] 2024-01-27 10:30:00 2024-01-27 11:15:23 Routine Visit Leslie Castellanos [facility] TEST CLERK [facility] & CHILD [facility] 1..840.114 350.1.13.10 4.2.7.2.686 [id number] [facility] 2024-01-24 23:58:00 2024-01-25 01:07:00 Outpatient X ADUM, DAISY [facility] [id number] [facility] 2024-01-24 23:58:00 2024-01-25 01:07:00 Emergency Adum, Daisy Crandall [facility] 1..114 350.1.13.10 4.2.7.2.686 [id number] [facility] 2024-01-15 10:00:00 2024-01-15 10:36:33 Outpatient DEXTER BASILIO [facility] [id number] [facility] 2024-01-15 10:00:00 2024-01-15 10:36:33 Routine Visit Risk, Ang-Rmchp-N p/High Dexter Mcconnell [facility] TEST CLERK [facility] MATERNAL & CHILD [facility] 1..114 350.1.13.10 4.2.7.2.686 [id number] [facility] 2024-01-15 09:15:00 2024-01-15 09:15:00 Outpatient RANDI JENSEN [facility] [id number] [facility] 2024-01-01 10:15:00 2024-01-01 10:48:59 Outpatient RANDI JENSEN [facility] [id number] [facility] 2024-01-01 10:15:00 2024-01-01 10:48:59 Office Visit Risk, Ang-Rmchp-N p/High Randi Do [facility] TEST CLERK [facility] & CHILD [facility] ..114 350.1.13.10 4.2.7.2.686 [id number] 107 [id number] [facility] 2023-12-31 00:00:00 2023-12-31 15:56:17 Telephone Leslie Castellanos [facility] TEST CLERK [facility] MATERNAL & CHILD [facility] 1..114 350.1.13.10 4.2.7.2.686 [id number] 107 [id number] [facility] 2023-12-31 00:00:00 2023-12-31 13:41:30 Telephone Leslie Castellanos [facility] TEST CLERK [facility] & CHILD [facility] 1.2.840.114 350.1.13.10 4.2.7.2.686 [id number] [facility] 2023-12-30 08:15:00 2023-12-30 09:24:22 Outpatient R LESLIE CASTELLANOS [facility] [id number] [facility] 2023-12-30 08:15:00 2023-12-30 09:24:22 Routine Visit Leslie Castellanos [facility] TEST CLERK [facility] & CHILD [facility] 1.2.840.114 350.1.13.10 4.2.7.2.686 [id number] 107 [id number] [facility] 2023-12-25 00:00:00 2023-12-25 15:45:03 Telephone Leslie Castellanos [facility] TEST CLERK [facility] & CHILD [facility] 1.2.840.114 350.1.13.10 4.2.7.2.686 [id number] [facility] 2023-12-10 13:30:00 2023-12-10 14:18:53 Outpatient R LESLIE CASTELLANOS [facility] [id number] [facility] 2023-12-10 13:30:00 2023-12-10 14:18:53 Routine Visit Leslie Castellanos [facility] TEST CLERK [facility] & CHILD [facility] 1.2.840.114 350.1.13.10 4.2.7.2.686 [id number] [facility] 2023-11-29 00:00:00 2023-11-29 00:00:00 Abstract Leslie Castellanos [facility] TEST CLERK [facility] MATERNAL & CHILD [facility] 1.2.840.114 350.1.13.10 4.2.7.2.686 [id number] 107 [id number] [facility] 2023-11-27 11:00:00 2023-11-27 11:00:00 Outpatient P [facility] [id number] [facility] 2023-11-27 00:00:00 2023-11-27 00:00:00 Telephone Leslie Castellanos [facility] TEST CLERK [facility] MATERNAL & CHILD [facility] 1..840.114 350.1.13.10 4.2.7.2.686 [id number] 107 [id number] [facility] 2023-11-26 10:00:00 2023-11-26 10:28:29 Outpatient P ERVIN BIRMINGHAM [facility] [id number] [facility] 2023-11-26 10:00:00 2023-11-26 10:28:29 Nitric Acid Concentrator Operator Visit Ultrasound, [facility] Ervin Birmingham [facility] TEST CLERK [facility] & CHILD [facility] 1..840.114 350.1.13.10 4.2.7.2.686 [id number] [facility] 2023-11-21 08:30:00 2023-11-21 08:30:00 Outpatient R LESLIE CASTELLANOS [facility] [id number] [facility] 2023-11-20 15:00:00 2023-11-20 15:00:00 Outpatient P [facility] [id number] [facility] 2023-11-20 00:00:00 2023-11-20 00:00:00 Abstract Leslie Castellanos [facility] TEST CLERK [facility] & CHILD [facility] 1.2.840.114 350.1.13.10 4.2.7.2.686 [id number] [facility] 2023-11-15 00:00:00 2023-11-15 00:00:00 Telephone Leslie Castellanos [facility] TEST CLERK [facility] & CHILD [facility] 1.840.114 350.1.13.10 4.2.7.2.686 [id number] 107 [id number] [facility] 2023-11-14 09:45:00 2023-11-14 11:19:33 Initial Visit Leslie Castellanos Brenda A [facility] TEST CLERK [facility] MATERNAL & CHILD [facility] 1.840.114 350.1.13.10 4.2.7.2.686 [id number] [facility] 2023-11-14 09:15:00 2023-11-14 09:46:54 Outpatient R CARLA VAUGHN [facility] [id number] [facility] 2023-11-11 21:41:00 2023-11-11 23:50:00 Emergency X MACRINA BLUMRODNEY [facility] ERT [id number] [facility] 2023-11-11 21:41:00 2023-11-11 23:50:00 Emergency Arnold Blum S [facility] 1.840.114 350.1.13.10 4.2.7.2.686 [id number] [facility] 2023-11-04 10:36:00 2023-11-04 13:26:00 Emergency X SAMMIE K [facility] ERT [id number] [facility] 2023-11-01 00:00:00 2023-11-01 00:00:00 Telephone Sydney Lubin [facility] 1.840.114 350.1.13.10 4.2.7.2.686 [id number] [facility] 2023-10-31 08:00:00 2023-10-31 08:00:00 Outpatient R [facility] [id number] [facility] 2023-10-30 00:00:00 2023-10-30 00:00:00 Outpatient Raju_P [id number] Frankie [facility] 2023-10-28 13:45:00 2023-10-28 13:45:00 Outpatient R LESLIE CASTELLANOS [facility] [id number] [facility] 2023-10-28 13:15:00 2023-10-28 13:15:00 Outpatient R [facility] [id number] [facility] 2023-10-24 11:40:00 2023-10-24 16:53:00 Emergency X NACHO NGUYEN [facility] ERT [id number] [facility] 2023-10-24 11:40:00 2023-10-24 16:53:00 Emergency Nacho Nguyen [facility] [id number] 350.1.13.10 [id number] [id number] [facility] 2023-10-24 00:00:00 2023-10-24 00:00:00 Telephone Pgy3 [facility] [id number] 350.1.13.10 [id number] [id number] [facility] 2023-09-17 00:00:00 2023-09-17 00:00:00 Outpatient R SYDNEY LUBIN [facility] [id number] [facility] 2023-09-13 10:00:00 2023-09-13 10:00:00 Outpatient R BRUNA ARRINGTON ASHLEY [facility] [id number] [facility] 2023-09-02 00:00:00 2023-09-02 00:00:00 Outpatient R SYDNEY LUBIN [facility] [id number] [facility] 2023-08-23 00:00:00 2023-08-23 00:00:00 Patient Secure Msg Doctor Unassigned, [place] [facility] [id number] 350.1.13.10 [id number] [id number] [facility] 2023-08-20 14:30:00 2023-08-20 15:39:40 Outpatient R [facility] [id number] [facility] 2023-08-20 14:30:00 2023-08-20 15:39:40 Office Visit Pgy2 [facility] [facility] 1.2840.114 350.1.13.10 4.2.7.2.686 [id number] [facility] 2023-08-13 00:00:00 2023-08-13 00:00:00 Telephone Trevor [facility] 1.2840.114 350.1.13.10 4.2.7.2.686 [id number] [facility] 2023-07-18 08:30:00 2023-07-18 08:30:00 Outpatient R ELIZA OLIVIER [facility] [id number] [facility] 2023-04-24 10:13:00 2023-04-24 12:05:00 Emergency X RAHEL DICKSON [facility] ERT [id number] [facility] 2023-04-24 10:13:00 2023-04-24 12:05:00 Emergency Dickson Rahel [facility] 1.2840.114 350.1.13.10 4.2.7.2.686 [id number] [facility] 2023-04-18 11:00:00 2023-04-18 11:09:48 Outpatient R ELIZA OLIVIER [facility] [id number] [facility] 2023-04-18 11:00:00 2023-04-18 11:09:48 [facility] 1.2.840.114 350.1.13.10 4.2.7.2.686 [id number] [facility] 2023-04-04 00:00:00 2023-04-04 00:00:00 Telephone Eliza Olivier [facility] 1.2.840.114 350.1.13.10 4.2.7.2.686 [id number] [facility] 2023-04-01 13:53:27 2023-04-01 23:59:00 Outpatient R ELIZA OLIVIER [facility] [id number] [facility] 2023-04-01 13:45:00 2023-04-01 23:59:00 Hospital Encounter Eliza Olivier [facility] 1.2.840.114 350.1.13.10 4.2.7.2.686 [id number] [facility] 2023-04-01 13:30:00 2023-04-01 13:36:46 Nitric Acid Concentrator Operator Visit 2, Adc Lab Eliza Olivier [facility] 1.2.840.114 350.1.13.10 4.2.7.2.686 [id number] [facility] 2023-04-01 13:00:00 2023-04-01 13:28:27 Office Visit Eliza Olivier [facility] 1.2.840.114 350.1.13.10 4.2.7.2.686 [id number] [id number] [facility] 2023-03-14 11:00:00 2023-03-14 11:00:00 Outpatient R DELMY OLIVIERICA [facility] [id number] [facility] 2023-03-09 00:00:00 2023-03-09 00:00:00 [facility] 1.2.840.114 350.1.13.10 4.2.7.2.686 [id number] [facility] 2023-02-14 10:00:00 2023-02-14 10:27:33 Outpatient R ELIZA OLIVIER [facility] [id number] [facility] 2023-02-14 10:00:00 2023-02-14 10:27:33 [facility] 1.2.840.114 350.1.13.10 4.2.7.2.686 [id number] [facility] 2023-01-23 14:30:00 2023-01-23 14:30:00 Outpatient R LESLIE CASTELLANOS [facility] [id number] [facility] 2023-01-10 00:00:00 2023-01-10 00:00:00 Outpatient R ELIZA OLIVIER [facility] [id number] [facility] 2023-01-04 00:00:00 2023-01-04 00:00:00 Telephone Leslie Castellanos [facility] TEST CLERK [facility] MATERNAL & [facility] 1.2.840.114 350.1.13.10 4.2.7.2.686 [id number] [facility] 2023-01-03 10:15:00 2023-01-03 10:30:00 Nitric Acid Concentrator Operator Visit 2, Adc Lab Carlos Olivierssica [facility] 1.2.840.114 350.1.13.10 4.2.7.2.686 [id number] [facility] 2023-01-03 09:30:00 2023-01-03 10:13:42 Outpatient R ELIZA OLIVIER [facility] [id number] [facility] 2023-01-03 09:30:00 2023-01-03 10:13:42 Office Visit Eliza Olivier [facility] 1.84.114 350.1.13.10 4.2.7.2.686 [id number] [facility] 2023-01-03 00:00:00 2023-01-03 00:00:00 Telephone Leslie Castellanos [facility] TEST CLERK [facility] MATERNAL & CHILD [facility] 1..114 350.1.13.10 4.2.7.2.686 [id number] 107 [id number] [facility] 2023-01-01 15:15:00 2023-01-01 15:15:00 Outpatient R LESLIE CASTELLANOS [facility] [id number] [facility] 2023-01-01 08:30:00 2023-01-01 08:30:00 Outpatient R ELIZA OLIVIER [facility] [id number] [facility] 2022-12-27 19:33:00 2022-12-27 21:29:00 Emergency X SINGER YAW [facility] ERT [id number] [facility] 2022-12-27 19:33:00 2022-12-27 21:29:00 Emergency Yaw Bro [facility] 1.84.114 350.1.13.10 4.2.7.2.686 [id number] [facility] 2022-12-27 19:00:00 2022-12-27 19:20:00 Nurse Visit Nurse, Arcadio Cardenas Ur[facility] Care Unknown, Attending [facility] 1.84.114 350.1.13.10 4.2.7.2.686 [id number] [facility] 2022-12-27 19:00:00 2022-12-27 19:00:00 Outpatient R UNKNOWN, ATTENDING [facility] [id number] [facility] 2022-12-27 19:00:00 2022-12-27 19:00:00 Outpatient R JUAN LIZCY [facility] [id number] [facility] 2022-12-25 00:00:00 2022-12-25 00:00:00 Telephone Leslie Castellanos [facility] TEST CLERK [facility] & CHILD [facility] 1.2.840.114 350.1.13.10 4.2.7.2.686 [id number] 107 [id number] [facility] 2022-12-20 10:00:00 2022-12-20 10:58:56 Outpatient R LESLIE CASTELLANOS [facility] [id number] [facility] 2022-12-20 10:00:00 2022-12-20 10:58:56 Office Visit Leslie Castellanos [facility] TEST CLERK [facility] CHILD [facility] 1.2840.114 350.1.13.10 4.2.7.2.686 [id number] 107 [id number] [facility] 2022-12-20 00:00:00 2022-12-20 00:00:00 Orders Only Doctor Unassigned, [place] [facility] 1.2.840.114 350.1.13.10 4.2.7.2.686 [id number] [facility] 2022-09-24 00:00:00 2022-09-24 00:00:00 Case Management Carla Vaughn [facility] 1.2840.114 350.1.13.10 4.2.7.2.686 [id number] 107 [id number] [facility] 2022-09-21 09:30:00 2022-09-21 10:18:05 Outpatient R CARLA VAUGHN [facility] [id number] [facility] 2022-09-21 09:30:00 2022-09-21 10:18:05 Office Visit Provider, Pedro Bella Carla Vaughn [facility] TEST CLERK [facility] MATERNAL & CHILD [facility] 1.2.840.114 350.1.13.10 4.2.7.2.686 [id number] 107 [id number] [facility] 2022-09-21 00:00:00 2022-09-21 00:00:00 Letter (Out) Carla Vaughn [facility] TEST CLERK [facility] & CHILD [facility] 1.2.840.114 350.1.13.10 4.2.7.2.686 [id number] 107 [id number] [facility] 2022-09-07 08:30:00 2022-09-07 08:30:00 Outpatient ROSALES WATKINS EMILY [facility] [id number] [facility] 2022 13:40:00 2022 13:40:00 Outpatient MELINDA WHITESIDE [facility] [id number] [facility] 2022-02-15 09:00:00 2022-02-15 09:18:29 Office Visit Jacob Barrientos [facility] TEST CLERK [facility] & CHILD [facility] 1.2.840.114 350.1.13.10 4.2.7.2.686 [id number] 107 [id number] [facility] 2022-02-15 09:00:00 2022-02-15 09:18:29 Outpatient JACOB BAUTISTA [facility] [id number] [facility] 2022-02-15 09:00:00 2022-02-15 09:00:00 Outpatient JACOB BAUTISTA [facility] [id number] [facility] 2022-02-15 09:00:00 2022-02-15 09:00:00 Outpatient JACOB BAUTISTA [facility] [id number] [facility] 2022-01-12 00:00:00 2022-01-12 00:00:00 Telephone Jacob Barrientos R [facility] TEST CLERK [facility] MATERNAL & CHILD [facility] 1.0.114 350.1.13.10 4.2.7.2.686 [id number] 107 [id number] [facility] 2022-01-11 15:15:00 2022-01-11 16:08:32 Office Visit Floyd Jacob Love [facility] TEST CLERK [facility] CHILD [facility] 1.0.114 350.1.13.10 4.2.7.2.686 [id number] 107 [id number] [facility] 2022-01-11 15:15:00 2022-01-11 16:08:32 Outpatient R JACOB BARRIENTOS [facility] [id number] [facility] 2022-01-11 15:15:00 2022-01-11 15:15:00 Outpatient R JACOB BARRIENTOS [facility] [id number] [facility] 2021-11-16 10:30:00 2021-11-16 10:30:00 Outpatient R [facility] [id number] [facility] 2021-11-16 08:00:00 2021-11-16 08:20:47 Outpatient R FLOYD JACOB [facility] [id number] [facility] 2021-11-16 08:00:00 2021-11-16 08:20:47 Nurse Visit Visit, [facility] Nurse Floyd Jacob [facility] TEST CLERK [facility] CHILD [facility] ..114 350.1.13.10 4.2.7.2.686 [id number] 107 [id number] [facility] 2021-11-03 00:00:00 2021-11-03 00:00:00 Telephone Mary Barrientoskhang [facility] TEST CLERK [facility] CHILD [facility] 1.0.114 350.1.13.10 4.2.7.2.686 [id number] 107 [id number] [facility] 2021-11-02 10:30:00 2021-11-02 11:58:09 Office Visit Jacob Barrientos [facility] TEST CLERK [facility] MATERNAL & CHILD [facility] 1.840.114 350.1.13.10 4.2.7.2.686 [id number] 107 [id number] [facility] 2021-11-02 10:30:00 2021-11-02 11:58:09 Outpatient R JACOB BARRIENTOS [facility] [id number] [facility] 2021-11-02 10:30:00 2021-11-02 11:58:09 Outpatient Ivan BARRIENTOSJACOB [facility] [id number] [facility] 2021-11-02 10:30:00 2021-11-02 10:30:00 Outpatient R MARY BARRIENTOSCARLOS [facility] [id number] [facility] 2021-11-02 10:30:00 2021-11-02 10:30:00 Outpatient Ivan BARRIENTOS, JACOB [facility] [id number] [facility] 2021-11-02 00:00:00 2021-11-02 00:00:00 Orders Only Doctor Unassigned, [place] [facility] 1..840.114 350.1.13.10 4.2.7.2.686 [id number] [facility] 2021-10-16 19:47:00 2021-10-16 20:32:00 Emergency X ALIVIA LEE [facility] ERT [id number] [facility] 2021-10-16 19:47:00 2021-10-16 20:32:00 Emergency Alivia Lee F [facility] 1..840.114 350.1.13.10 4.2.7.2.686 [id number] [facility] 2021-08-01 08:30:00 2021-08-01 09:21:32 Outpatient R JACOB BARRIENTOS [facility] [id number] [facility] 2021-08-01 08:30:00 2021-08-01 09:21:32 Office Visit Jacob Barrientos [facility] TEST CLERK [facility] & CHILD [facility] 1.84.114 350.1.13.10 4.2.7.2.686 [id number] 107 [id number] [facility] 2021-08-01 00:00:00 2021-08-01 00:00:00 Orders Only Doctor Unassigned, [place] [facility] 1..114 350.1.13.10 4.2.7.2.686 [id number] [facility] 2021-07-31 00:00:00 2021-07-31 00:00:00 Telephone Jacob Barrientos [facility] TEST CLERK [facility] & CHILD [facility] 1..114 350.1.13.10 4.2.7.2.686 [id number] 107 [id number] [facility] 2021-06-13 10:30:00 2021-06-13 10:58:17 Outpatient R CINDY APARICIO [facility] [id number] [facility] 2021-06-13 10:01:19 2021-06-13 10:58:17 Office Visit Cindy Aparicio [facility] TEST CLERK [facility] & CHILD [facility] 1.84.114 350.1.13.10 4.2.7.2.686 [id number] [facility] 2021-06-13 10:30:00 2021-06-13 10:30:00 Outpatient CINDY HAMPTON [facility] [id number] [facility] 2021-06-06 00:00:00 2021-06-06 00:00:00 Telephone Jacob Barrientos [facility] TEST CLERK [facility] & CHILD [facility] 1.840.114 350.1.13.10 4.2.7.2.686 [id number] 107 [id number] [facility] 2021-04-10 10:00:00 2021-04-10 10:00:00 Outpatient R LESLIE CASTELLANOS [facility] [id number] [facility] 2021-03-31 00:00:00 2021-03-31 00:00:00 Letter (Out) Rayne Jones [facility] 1.2.840.114 350.1.13.10 4.2.7.2.686 [id number] [facility] 2021-03-30 12:30:00 2021-03-30 12:30:00 Outpatient R NI ALVRAEZ [facility] [id number] [facility] 2020-12-30 09:29:12 2020-12-30 10:10:09 Office Visit Jacob Barrientos [facility] TEST CLERK [facility] MATERNAL & CHILD [facility] 1.2.840.114 350.1.13.10 4.2.7.2.686 [id number] 107 [id number] [facility] 2020-12-30 09:29:12 2020-12-30 10:10:09 Office Visit Jacob Barrientos [facility] TEST CLERK [facility] & CHILD [facility] 1.2.840.114 350.1.13.10 4.2.7.2.686 [id number] 2020-12-30 09:30:00 2020-12-30 09:30:00 Outpatient R LESLIE CASTELLANOS [facility] [id number] [facility] 2020-12-30 08:45:00 2020-12-30 08:45:00 Outpatient R JACOB BARRIENTOS [facility] [id number] [facility] 2020-12-16 08:57:28 2020-12-16 09:27:28 Office Visit Leslie Castellanos [facility] TEST CLERK REGIONAL MATERNAL & CHILD [facility] 1.840.114 350.1.13.10 4.2.7.2.686 [id number] 107 [id number] [facility] 2020-12-16 09:00:00 2020-12-16 09:00:00 Outpatient R LESLIE CASTELLANOS [facility] [id number] [facility] 2020-12-16 00:00:00 2020-12-16 00:00:00 Orders Only Doctor Unassigned, [place] [facility] 1.0.114 350.1.13.10 4.2.7.2.686 [id number] [facility] 2020-12-02 00:00:00 2020-12-02 00:00:00 Telephone Leslie Castellanos [facility] TEST CLERK [facility] & CHILD [facility] 1.84.114 350.1.13.10 4.2.7.2.686 [id number] 107 [id number] [facility] 2020-11-29 15:31:01 2020-11-29 15:46:01 Nurse Visit Visit, [facility] Nurse Jacob Barrientos [facility] TEST CLERK [facility] CHILD [facility] 1..114 350.1.13.10 4.2.7.2.686 [id number] 107 [id number] [facility] 2020-11-29 15:30:00 2020-11-29 15:30:00 Outpatient R JACOB BARRIENTOS [facility] [id number] [facility] 2020-11-29 00:00:00 2020-11-29 00:00:00 Telephone Jacob Barrientos [facility] TEST CLERK [facility] CHILD [facility] 1.84.114 350.1.13.10 4.2.7.2.686 [id number] 107 [id number] [facility] 2020-11-02 10:16:29 2020-11-02 11:05:27 Office Visit Jacob Barrientos [facility] TEST CLERK [facility] MATERNAL & CHILD [facility] 1.0.114 350.1.13.10 4.2.7.2.686 [id number] 107 [id number] [facility] 2020-11-02 10:15:00 2020-11-02 10:15:00 Outpatient R JACOB BARRIENTOS [facility] [id number] [facility] 2020-11-02 00:00:00 2020-11-02 00:00:00 Orders Only Doctor Unassigned, [place] [facility] 1.0.114 350.1.13.10 4.2.7.2.686 [id number] [facility] 2020-11-01 15:00:00 2020-11-01 15:00:00 Outpatient R JACOB BARRIENTOS [facility] [id number] [facility] 2020-11-01 00:00:00 2020-11-01 00:00:00 Patient Outreach Joel Matt [facility] 1..114 350.1.13.10 4.2.7.2.686 [id number] [facility] 2020-07-13 00:00:00 2020-07-13 00:00:00 Patient Secure Msg Doctor Unassigned, [place] [facility] 1..114 350.1.13.10 4.2.7.2.686 [id number] [facility] 2020-07-04 00:00:00 2020-07-04 00:00:00 Refill Leslie Castellanos [facility] TEST CLERK [facility] MATERNAL & CHILD [facility] 1..114 350.1.13.10 4.2.7.2.686 [id number] 107 [id number] [facility] 2020-06-13 09:15:00 2020-06-13 09:15:00 Outpatient R LESLIE CASTELLANOS [facility] [id number] [facility] 2020-06-13 09:15:00 2020-06-13 09:15:00 Outpatient R LESLIE CASTELLANOS [facility] [id number] [facility] 2020-06-01 00:00:00 2020-06-01 00:00:00 Refvince Leslie Castellanos Patricio [facility] TEST CLERK [facility] & CHILD [facility] 1.840.114 350.1.13.10 4.2.7.2.686 [id number] 107 [id number] [facility] 2020-05-30 00:00:00 2020-05-30 00:00:00 [facility] ..840.114 350.1.13.10 4.2.7.2.686 [id number] [facility] 2020-05-27 10:30:00 2020-05-27 10:30:00 Outpatient R LESLIE CASTELLANOS [facility] [id number] [facility] 2020-05-27 10:30:00 2020-05-27 10:30:00 Outpatient R LESLIE CASTELLANOS [facility] [id number] [facility] 2020-05-10 11:18:40 2020-05-10 11:38:40 Urgent Care Provider, [facility] Urgent Care Alysia [facility] [address] .840.114 350.1.13.10 4.2.7.2.686 [id number] [facility] 2020-05-10 11:20:00 2020-05-10 11:20:00 Outpatient Ivan HATFIELDELENA [facility] [id number] [facility] 2020-05-09 00:00:00 2020-05-09 00:00:00 Telephone Jacob Barrientos [facility] TEST CLERK [facility] & CHILD [facility] 1.2.840.114 350.1.13.10 4.2.7.2.686 [id number] 107 [id number] [facility] 2020-03-31 09:26:23 2020-03-31 10:13:41 Office Visit Leslie Castellanos TEST CLERK [facility] & CHILD [facility] 1.2.840.114 350.1.13.10 4.2.7.2.686 [id number] 107 [id number] [facility] 2020-03-31 09:00:00 2020-03-31 09:00:00 Outpatient R LESLIE CASTELLANOS [facility] [id number] [facility] 2020-03-11 00:00:00 2020-03-11 00:00:00 Telephone Leslie Castellanos [facility] TEST CLERK [facility] CHILD [facility] 1.2840.114 350.1.13.10 4.2.7.2.686 [id number] 107 [id number] [facility] 2020-03-10 14:30:00 2020-03-10 14:30:00 Outpatient R LESLIE CASTELLANOS [facility] [id number] [facility] 2020-03-10 10:09:10 2020-03-10 11:09:52 Office Visit Leslie Castellanos [facility] TEST CLERK [facility] & CHILD [facility] 1.2840.114 350.1.13.10 4.2.7.2.686 [id number] 107 [id number] [facility] 2020-03-07 00:00:00 2020-03-07 00:00:00 Telephone Jacob Barrientos TEST CLERK [facility] CHILD [facility] 1.2.840.114 350.1.13.10 4.2.7.2.686 [id number] 107 [id number] [facility] 2019-12-29 13:01:04 2019-12-30 11:33:02 Initial Visit Jacob Barrientos [facility] TEST CLERK [facility] MATERNAL & CHILD [facility] 1.2.840.114 350.1.13.10 4.2.7.2.686 [id number] 107 [id number] [facility] 2019-12-30 00:00:00 2019-12-30 00:00:00 Patient Secure Msg Doctor Unassigned, [place] [facility] TEST CLERK [facility] & CHILD [facility] 1.2.840.114 350.1.13.10 4.2.7.2.686 [id number] 107 [id number] [facility] 2019-12-30 00:00:00 2019-12-30 00:00:00 Patient Secure Msg Doctor Unassigned, [place] [facility] TEST CLERK [facility] CHILD [facility] 1.2.840.114 350.1.13.10 4.2.7.2.686 [id number] 107 [id number] [facility] 2019-12-29 14:04:59 2019-12-29 14:20:25 Office Visit Jacob Barrientos [facility] TEST CLERK [facility] CHILD [facility] 1.2.840.114 350.1.13.10 4.2.7.2.686 [id number] [facility] 2019-12-29 12:45:00 2019-12-29 12:45:00 Outpatient R JACOB BARRIENTOS [facility] [id number] [facility] 2019-12-15 07:30:05 2019-12-15 08:20:00 Emergency Fletcher Ramesh [facility] 1.2.840.114 350.1.13.10 4.2.7.2.686 [id number] [facility] 2019-12-14 00:00:00 2019-12-14 00:00:00 Patient Secure Msg Ethel Marie [facility] TEST CLERK [facility] MATERNAL & CHILD [facility] 1.2.840.114 350.1.13.10 4.2.7.2.686 [id number] [facility] 2019-11-30 08:30:00 2019-11-30 08:30:00 Outpatient R [facility] [id number] [facility] 2019-11-27 09:30:00 2019-11-27 09:30:00 Outpatient R [facility] [id number] [facility] 2019-11-26 09:00:00 2019-11-26 09:00:00 Outpatient R [facility] [id number] [facility] 2019-11-26 00:00:00 2019-11-26 00:00:00 Telephone Jacob Barrientos [facility] TEST CLERK [facility] & CHILD [facility] 1..840.114 350.1.13.10 4.2.7.2.686 [id number] [facility] 2019-11-24 09:30:00 2019-11-24 09:30:00 Outpatient R LESLIE CASTELLANOS [facility] [id number] [facility] 2019-11-03 05:13:00 2019-11-03 05:13:00 Outpatient Raju_P [facility] [id number] [facility] 2019-10-27 00:00:00 2019-10-27 00:00:00 Patient Secure Msg Jacob Barrientos [facility] TEST CLERK [facility] & CHILD [facility] 1..840.114 350.1.13.10 4.2.7.2.686 [id number] [facility] 2019-10-16 10:45:40 2019-10-16 11:26:43 Office Visit Leslie Castellanos [facility] TEST CLERK [facility] & CHILD [facility] 1.2.840.114 350.1.13.10 4.2.7.2.686 [id number] [facility] 2019-10-16 10:45:00 2019-10-16 10:45:00 Outpatient R LESLIE CASTELLANOS [facility] [id number] [place] [facility] 2019[facility]07 12:51:31 2019-10-07 13:44:17 Office Visit Leslie Castellanos [facility] TEST CLERK [facility] & CHILD [facility] 1.2.840.114 350.1.13.10 4.2.7.2.686 [id number] [facility] 2019-10-07 13:00:00 2019-10-07 13:00:00 Outpatient R LESLIE CASTELLANOS [facility] [id number] [facility] 2019-10-06 00:00:00 2019-10-06 00:00:00 Telephone Leslie Castellanos [facility] TEST CLERK [facility] & CHILD [facility] 1.2.840.114 350.1.13.10 4.2.7.2.686 [id number] [facility] 2019-10-02 14:07:49 2019-10-02 15:15:37 Office Visit Leslie Castellanos [facility] TEST CLERK [facility] CHILD [facility] 1.2.840.114 350.1.13.10 4.2.7.2.686 [id number] 107 [id number] [facility] 2019-08-25 09:57:53 2019-08-25 13:09:26 Office Visit Leslie Castellanos [facility] TEST CLERK [facility] CHILD [facility] 1.2.840.114 350.1.13.10 4.2.7.2.686 [id number] 107 [id number] [facility] 2019-08-25 00:00:00 2019-08-25 00:00:00 Orders Only Doctor Unassigned, [place] [facility] 1.2.840.114 350.1.13.10 4.2.7.2.686 [id number] [facility] 2019-08-25 00:00:00 2019-08-25 00:00:00 Letter (Out) Leslie Castellanos [facility] TEST CLERK [facility] 1.2840.114 350.1.13.10 4.2.7.2.686 [id number] 107 [id number] [facility] 2019-03-05 22:28:42 2019-03-05 23:12:00 Emergency Alvin Pace [facility] 1.2840.114 350.1.13.10 4.2.7.2.686 [id number] [facility] Results Test Description Test Time Test Comments Results Result Co mments Source [facility] [id number] 15:16:00* Test Item Value Reference Range Interpretation Comme nts POCT U SP GRAV (test code = 3255) . 1.005-1.025 POCT PH U (test code = 3254) 5 mg/dl 5-8 POCT U LEUK EST (test code = 3263) trace Negative - Negative POCT U NIT (test code = 3262) neg Negative - Negati ve POCT U PROT (test code = 3259) trace Negative - Negat ely POCT U GLU (test code = 3256) neg Negative - Negati ve POCT U KETONE (test code = 3258) neg Negative - Neg ative POCT U UROBILI (test code = 3260) . 0.2-1 POCT U BILI (test code = 3261) . Negative - Negat ely POCT U BLD (test code = 3257) neg Negative - Negati ve POCT U COLOR (test code = 3266) . POCT U APPEAR (test code = 3267) . [facility] [id number] 20:36:00* Test Item Value Reference Range Interpretation Comme [...] POCT U GLU (test code = 3256) normal Negative - Negati ve POCT U KETONE [...] U APPEAR (test code = 3267) . [facility] PELVIS > 14 [id number] 05:54:54Ordering physician: NAVEEN PATEL INDICATION: 20 weeks , vaginal bleeding COMPARISON: None TECHNIQUE: Limited grayscale and Doppler images of the pelvis wereperformed via a transabdominal approach. FINDINGS: There is a single live intrauterine gestation in cephalicposition. The placenta is posterior without evidence for placenta previa orabruption. There is a small venous miller measuring 11mm. There is athree-vessel cord with a normal cord insertion. The stomach and urinarybladder are visualized. heart rate is measured at 139 bpm. KACI iswithin normal limits, at 13 cm. The cervix is suboptimally visualized, butappears closed, measuring approximately 2.9 cm in length. Neither maternalovary is visualized. Biometric measurements are as follows: BPD: 4.7 cm; 20 weeks, 3 daysHC: 17.7 cm; 20 weeks, 2 daysAC: 16.0 cm; 21 weeks, 1 dayFL: 3.4 cm; [facility] [id number] 16:19:00* Test Item Value Reference Range Interpretation Comme [...] (test code = 3267) [facility] URINALYSIS W SPECIFIC [id number] 15:29:00* Test Item Value Reference Range Interpretation [...] (test code = 3267) [facility] URINALYSIS W SPECIFIC [id number] 15:29:00* Test Item Value Reference Range Interpretation [...] (test code = 3267) [facility] URINALYSIS W SPECIFIC [id number] 13:59:00* Test Item Value Reference Range Interpretation [...] . [facility] URINALYSIS W SPECIFIC [id number] 19:51:00* Test Item Value Reference Range Interpretation [...] 3267) [facility] Urinalysis w/o Specific Citfutb4783-14-41 14:37:00* Test Item Value Reference Range Interpretation [...] Negative - Negati ve [facility] Umth7728-34-52 14:27:00* Test Item Value Reference Range Interpretation Comme nts POCT PREG (test code = 1605) Positive On board controls acceptable with C Line (test code = 3574) Yes POCT PREG LOT # (test code = 3575) POCT PREG TEST DATE ( test code = 3576) [facility]. Metabolic Panel (09085)2023-11-12 03:59:37* Test Item Value Reference Range Interpretation Comme nts NA (test code = 3302369662) 135 mmol/L 135-145 K (test code = 9441698721) 3.4 mmol/L 3.5-5.0 L CL (test code = 3197555355) 103 mmol/L 98-108 CO2 TOTAL (test code = 8211074249) 27 mmol/L 23-31 AGAP (test code = 2490281735) 5 2-16 BUN (test code = 9759119041) 7 mg/dL 7-23 GLUCOSE (test code = 5478968345) 85 mg/dL 70-110 CREATININE (test code = 2160-0) 0.44 mg/dL 0.50-1.04 L TOTAL BILI (test code = 1652159674) 0.5 mg/dL 0.1-1.1 CALCIUM (test code = 2477546924) 9.2 mg/dL 8.6-10.6 T PROTEIN (test code = 4048902770) 7.2 g/dL 6.3-8.2 ALBUMIN (test code = 1474648935) 4.1 g/dL 3.5-5.0 ALK PHOS (test code = 6929626551) 53 U/L 34-122 ALTv (test code = 1742-6) 11 U/L 5-35 AST(SGOT) (test code = 9050843415) 30 U/L 13-40 eGFR (test code = 93283-8) 140.5 mL/min/1.73m2 CKD-EPI eGFR (2020). Assuming creatinine has been stable day-to-day for at least three months, the eGFR indicates Category G1 (>= 90 mL/min/1.73 m2) Lab Interpretation (test code = 94645-3) Abnormal [facility] 03:59:17* Test Item Value Reference Range Interpretation Comme nts LIPASE (test code = 7138964639) 83 U/L 0-220 Lab Interpretation (test cod e = 23545-2) Normal [facility] with Adtc1371-68-86 03:46:41* Test Item Value Reference Range Interpretation [...] 34.8 g/dL 31.6-35.1 RDW-SD (test code = 81551-1) 39.0 fL 39.0-49.9 RDW-CV (test code = 788-0) 11.6 % 12.0-15.5 L PLT (test code = 777-3) 219 166-358 MPV (test code = 31408-3) 10.9 fL 9.5-12.9 NRBC/100 WBC (test code = 0435527049) 0.0 0.0-10.0 NRBC x10^3 (test code = 3968756242) See_Comment [Automated messa ge] The system which generated this result transmitted reference range: 10*3/?L. The reference range was not used to interpret this result as normal/abnormal. GRAN MAT (NEUT) % (test code = 770-8) 61.7 % IMM GRAN % (test code = 3256477812) 0.30 % LYMPH % (test code = 736-9) 28.8 % MONO % (test code = 5905-5) 5.9 % EOS % (test code = 713-8) 2.8 % BASO % (test code = 706-2) 0.5 % GRAN MAT x10^3(ANC) (test code = 5522360763) 7.80 10*3/uL 1.88-7.09 H IMM GRAN x10^3 (test code = 3651054803) 0.04 10*3/uL 0.00-0.06 LYMPH x10^3 (test code = 731-0) 3.64 10*3/uL 1.32-3.29 H MONO x10^3 (test code = 742-7) 0.74 10*3/uL 0.33-0.92 EOS x10^3 (test code = 711-2) 0.35 10*3/uL 0.03-0.39 BASO x10^3 (test code = 704-7) 0.06 10*3/uL 0.01-0.07 Lab Interpretation (test code = 97019-8) Abnormal [facility]ulating Xyciuoh3929-43-74 19:13:57 * Test Item Value Reference Range Interpretation Comme nts TSH (test code = 6969635130) 1.49 0.45-4.70 Lab Interpretation (test cod e = 10075-6) Normal [facility] BHCG (QUANTITATIVE)2023-10-24 19:13:26* Test Item Value Reference Range Interpretation Comme nts BETA HCG (test code = 1328854566) 656.79 See_Comment [Automated messa ge] The system which generated this result transmitted reference range: Non- female and male patients: <5 mIU/mL. The reference range was not used to interpret this result as normal/abnormal. VICENTE (test code = VICENTE) Gestational Age ?Range (mIU/mL) 1-10 ?Weeks ?34-35024312-49 Weeks ?60323-96595992-12 Weeks ?6907-65909834-48 Weeks ?9761-566383 Biotin has been reported to cause a negative bias, interpret results relative to patient's use of biotin. [facility]. Metabolic Panel (98815)2023-10-24 18:43:10* Test Item Value Reference Range Interpretation Comme nts NA (test code = 8553190425) 138 mmol/L 135-145 K (test code = 6923926874) 4.1 mmol/L 3.5-5.0 CL (test code = 4990589152) 105 mmol/L 98-108 CO2 TOTAL (test code = 0927398144) 26 mmol/L 23-31 AGAP (test code = 1185940090) 7 2-16 BUN (test code = 6258964048) 11 mg/dL 7-23 GLUCOSE (test code = 5298984278) 100 mg/dL 70-110 CREATININE (test code = 2160-0) 0.55 mg/dL 0.50-1.04 TOTAL BILI (test code = 7811246414) 1.1 mg/dL 0.1-1.1 CALCIUM (test code = 8254148776) 9.1 mg/dL 8.6-10.6 T PROTEIN (test code = 8617018752) 7.5 g/dL 6.3-8.2 ALBUMIN (test code = 6671752326) 4.4 g/dL 3.5-5.0 ALK PHOS (test code = 2930543582) 58 U/L 34-122 ALTv (test code = 1742-6) 16 U/L 5-35 AST(SGOT) (test code = 1070504244) 25 U/L 13-40 eGFR (test code = 72446-4) 133.1 mL/min/1.73m2 CKD-EPI eGFR (20 21). Assuming creatinine has been stable day-to-day for at least three months, the eGFR indicates Category G1 (>= 90 mL/min/1.73 m2) [facility] with Spea4064-27-64 18:30:51* Test Item Value Reference Range Interpretation [...] 34.5 g/dL 31.6-35.1 RDW-SD (test code = 68409-2) 40.6 fL 39.0-49.9 RDW-CV (test code = 788-0) 11.9 % 12.0-15.5 L PLT (test code = 777-3) 230 166-358 MPV (test code = 36530-4) 10.7 fL 9.5-12.9 NRBC/100 WBC (test code = 6292227962) 0.0 0.0-10.0 NRBC x10^3 (test code = 6939135697) See_Comment [Automated messa ge] The system which generated this result transmitted reference range: 10*3/?L. The reference range was not used to interpret this result as normal/abnormal. GRAN MAT (NEUT) % (test code = 770-8) 64.9 % IMM GRAN % (test code = 3822492298) 0.30 % LYMPH % (test code = 736-9) 25.7 % MONO % (test code = 5905-5) 6.0 % EOS % (test code = 713-8) 2.5 % BASO % (test code = 706-2) 0.6 % GRAN MAT x10^3(ANC) (test code = 5784447473) 6.11 10*3/uL 1.88-7.09 IMM GRAN x10^3 (test code = 6793774075) 0.03 10*3/uL 0.00-0.06 LYMPH x10^3 (test code = 731-0) 2.43 10*3/uL 1.32-3.29 MONO x10^3 (test code = 742-7) 0.57 10*3/uL 0.33-0.92 EOS x10^3 (test code = 711-2) 0.24 10*3/uL 0.03-0.39 BASO x10^3 (test code = 704-7) 0.06 10*3/uL 0.01-0.07 Lab Interpretation (test code = 30707-3) Abnormal [facility]Type [facility] Screen - ONCE [id number] 18:27:00 * Test Item Value Reference Range Interpretation Comme nts ABO & RH (test code = 20) O POSITIVE IAT (test code = 1185) Negative [facility] QVWS9243-23-90 15:42:00* Test Item Value Reference Range Interpretation Comme nts POCT PREG (test code = 1605) Negative On board controls acceptable with C Line (test code = 3574) Yes POCT PREG LOT # (test code = 3575) [id number] POCT PREG TEST DATE ( test code = 3576) 2024-08-14 Lab Interpretation (test cod e = 41924-8) [facility] IP[facility]4165[facility]83 16:00:00* Test Item Value Reference Range Interpretation Comme nts POCT PREG (test code = 1605) Negative On board controls acceptable with C Line (test code = 3574) Yes POCT PREG LOT # (test code = 3575) POCT PREG TEST DATE ( test code = 3576) [facility] SKNP8402-23-31 16:00:00* Test Item Value Reference Range Interpretation Comme nts POCT PREG (test code = 1605) Negative On board controls acceptable with C Line (test code = 3574) Yes POCT PREG LOT # (test code = 3575) POCT PREG TEST DATE ( test code = 3576) [facility] URINALYSIS W SPECIFIC KZUVGUC1536-43-00 15:11:00* Test Item Value Reference Range Interpretation [...] clear Lab Interpretation (test cod e = 50219-2) Abnormal [facility] URINALYSIS W SPECIFIC [id number] 15:11:00* Test Item Value Reference Range Interpretation [...] clear Lab Interpretation (test cod e = 17788-3) [facility] UDHZ0634[facility]03 15:09:00* Test Item Value Reference Range Interpretation Comme nts POCT PREG (test code = 1605) Negative On board controls acceptable with C Line (test code = 3574) Yes POCT PREG LOT # (test code = 3575) POCT PREG TEST DATE ( test code = 3576) [facility] WPGH4770-88-37 15:09:00* Test Item Value Reference Range Interpretation Comme nts POCT PREG (test code = 1605) Negative On board controls acceptable with C Line (test code = 3574) Yes POCT PREG LOT # (test code = 3575) POCT PREG TEST DATE ( test code = 3576) [facility] STIMULATING ZRBIQXW1382-51-08 02:02:22 * Test Item Value Reference Range Interpretation Comme nts TSH (test code = 5185342752) 2.26 See_Comment [Automated [employer]a ge] The system which generated this result transmitted reference range: 0.45 - 4.70 mIU/L. The reference range was not used to interpret this result as normal/abnormal. Lab Interpretation (test code = 14164-9) Normal [facility]. METABOLIC PANEL (05062)2022-12-28 01:32:39* Test Item Value Reference Range Interpretation Comme nts NA (test code = 1888724029) 139 mmol/L 135-145 K (test code = 2913676939) 3.4 mmol/L 3.5-5.0 L CL (test code = 9912997915) 103 mmol/L 98-108 CO2 TOTAL (test code = 8173078047) 24 mmol/L 23-31 AGAP (test code = 0820282801) 12 2-16 BUN (test code = 2646154567) 8 mg/dL 7-23 GLUCOSE (test code = 7804910191) 121 mg/dL 70-110 H CREATININE (test code = 3945375803) 0.57 mg/dL 0.50-1.04 TOTAL BILI (test code = 7598176321) 1.0 mg/dL 0.1-1.1 CALCIUM (test code = 0213963249) 9.2 mg/dL 8.6-10.6 T PROTEIN (test code = 5301170478) 6.9 g/dL 6.3-8.2 ALBUMIN (test code = 1059971062) 4.4 g/dL 3.5-5.0 ALK PHOS (test code = 4382731340) 47 U/L 34-122 ALTv (test code = 1742-6) 16 U/L 5-35 AST(SGOT) (test code = 5987562049) 22 U/L 13-40 eGFR (test code = 6171849936) 133.9 mL/min/1.73m2 VICENTE (test code = VICENTE) [...] imaging tests). Lab Interpretation (test code = 67875-4) Abnormal [facility]LIPASE2023-[facility]-19 01:32:19* Test Item Value Reference Range Interpretation Comme nts LIPASE (test code = 4738326776) 67 U/L 0-220 Lab Interpretation (test cod e = 74694-5) Normal [facility] WITH FGMQ1914-60-45 01:20:58* Test Item Value Reference Range Interpretation [...] 34.2 g/dL 31.6-35.1 RDW-SD (test code = 77082-5) 38.2 fL 39.0-49.9 L RDW-CV (test code = 788-0) 11.9 % 12.0-15.5 L PLT (test code = 777-3) 177 See_Comment [Automated messa ge] The system which generated this result transmitted reference range: 166 - 358 10*3/?L. The reference range was not used to interpret this result as normal/abnormal. MPV (test code = 63597-3) 11.6 fL 9.5-12.9 NRBC/100 WBC (test code = 5014396134) 0.0 See_Comment [Automated Intell[employer] ssage] The system which generated this result transmitted reference range: 0.0 - 10.0 /100 WBCs. The reference range was not used to interpret this result as normal/abnormal. NRBC x10^3 (test code = 2861711653) See_Comment [Automated messa ge] The system which generated this result transmitted reference range: 10*3/?L. The reference range was not used to interpret this result as normal/abnormal. GRAN MAT (NEUT) % (test code = 770-8) 64.1 % IMM GRAN % (test code = 1457260635) 0.30 % LYMPH % (test code = 736-9) 28.1 % MONO % (test code = 5905-5) 5.8 % EOS % (test code = 713-8) 1.3 % BASO % (test code = 706-2) 0.4 % GRAN MAT x10^3(ANC) (test code = 8859812274) 6.34 10*3/uL 1.88-7.09 IMM GRAN x10^3 (test code = 5954190483) 0.03 10*3/uL 0.00-0.06 LYMPH x10^3 (test code = 731-0) 2.78 10*3/uL 1.32-3.29 MONO x10^3 (test code = 742-7) 0.57 10*3/uL 0.33-0.92 EOS x10^3 (test code = 711-2) 0.13 10*3/uL 0.03-0.39 BASO x10^3 (test code = 704-7) 0.04 10*3/uL 0.01-0.07 Lab Interpretation (test code = 03976-6) Abnormal [facility] EVXF7554-50-42 01:05:00* Test Item Value Reference Range Interpretation Comme nts POCT PREG (test code = 1605) Negative On board controls acceptable with C Line (test code = 3574) Yes POCT PREG LOT # (test code = 3575) 304574 POCT PREG TEST DATE ( test code = 3576) 2024-03-19 Lab Interpretation (test cod e = 96794-7) Normal [facility] EMDF7607-42-26 15:47:00* Test Item Value Reference Range Interpretation Comme nts POCT PREG (test code = 1605) Negative On board controls acceptable with C Line (test code = 3574) Yes POCT PREG LOT # (test code = 3575) POCT PREG TEST DATE ( test code = 3576) [facility] HRPQ6423-94-34 15:47:00* Test Item Value Reference Range Interpretation Comme nts POCT PREG (test code = 1605) Negative On board controls acceptable with C Line (test code = 3574) Yes POCT PREG LOT # (test code = 3575) POCT PREG TEST DATE ( test code = 3576) [facility] Date/Time Note Provider Source 2024-02-14 13:42:28 6609-29-24M27:42:28 Images from the original note were not included.Refill request refilled per ambulatory refill guidelines.Notes:omeprazole 40 mg capsuleSig: Take 1 capsule by mouth in the morning.Disp: 90 capsule Refills: 1Start: 02/14/2024lass: eRXNon-formulary For: Gastroesophageal reflux disease without esophagitisLast ordered: 10 months ago (04/18/2023) by HUNTER Vincentastroenterology: Antiulcer - Proton Pump Inhibitors Ghndkl7602/14/2024 01:21 PMProtocol Details Valid encounter within last 12 monthsTo be filled at: [id number] - [place], [place] - [address] [place] Ref[place]: 4Recent VisitsDate Type Provider Dept04/18/23 Office Visit Eliza Olivier FNP [facility] Oseicwvq28/21/23 Office Visit Eliza Olivier FNP [facility]02/14/23 Office Visit Eliza Olivier FNP [facility] Rtescpry55/25/23 Office Visit Eliza Olivier LPN PER DIEM [facility] Xxbxhofj03/11/23 Office Visit Leslie Castellanos, [facility] Ang-RmchpShowing recent visits within past 540 days with a meds authorizing provider and meeting all other requirementsFuture AppointmentsNo visits were found meeting these conditions.Showing future appointments within next 150 days with a meds authorizing provider and meeting all other requirements 38051-1Bgisshmxi encounter LolqZE1807-75-11C83:45:54Telephone encounter NoteTXT1.2.840.568527.1.13.104.2.7. 2.969312|[id number] for patient qqev48122-0OtuwIDSVFPHOCSUEtpvfqtiq C-CDA narrative text[id number] 2PQFTICRIACUMMEFEMVPKIG8436-04-72Z3 3:45:541.2.840.485654.1.72.3.15|1.2 .840.256215.1.13.104.2.7.2.727879_2 [id number] [facility] 2024-02-13 00:18:25 3661-56-18E04:18:25 Maylin Zuniga is a 23 year old female arrives to ED ambulatory with x1 visitor and 21w1D , G2,P0 with complaints of cramping since last night. Patient reports yesterday had a blood cot come out of vagina so went to [facility] for check up, DC home from ED yesterday, then went to OB appointment today and was told cervix is dilated to 2 cm and last week was 4cm dilated in clinic. Patient denies any leaking or fluids from vagina, denies any vaginal bleeding. Patient is AAOx4, RR E/U, NAD noted.Report given to L&D triage.Patient to L&D via EDT in . [address]-3Icefwozuu department Triage avueSH6419-50-55P62:26:55Emergency department Triage noteTXT1.2.840.279548.1.13.104.2.7. 2.500112|[id number] for patient gwib12482-3Ietyxdobo department NoteLNNARRATIVEFormatted C-CDA narrative [id number] E Mills RNUT[id number] 7EDFLBNEWZGZCPMOUVMUQCD4544-18-92O3 0:26:551.2.840.712636.1.72.3.15|1.2 .840.049854.1.13.104.2.7.2.727879_2 [id number] Roopa Monroy RN [facility] 2024-02-11 22:06:17 3951-72-46O51:06:17 Cc pass out clot at 9pm today, been cramping all day 99432-8Cltrisbyn department Triage jljdJO7854-72-21V21:06:41Emergency department Triage noteTXT1.2.840.975170.1.13.104.2.7. 2.777886|[id number] for patient kwgi98672-3Xgwpoenhl department NoteLNNARRATIVEFormatted C-CDA narrative [id number] D Latorilla RN[address] Zmal[id number] 9XFRCWEFZPNWFOETEMGRGGW3185-11-57S1 2:06:411.2.840.053409.1.72.3.15|1.2 .840.627120.1.13.104.2.7.2.727879_2 [id number] Latoya Montemayor RN [facility] 2024-01-28 14:32:07 6654-50-53X65:32:07 Called pt, notified of lab results and results. Pt verbalized understanding.Ethel Peterson RN 01/28/24 2:32 PM 54145-3Ajlspitrc encounter JbdjOR3812-57-43E04:32:43Telephone encounter NoteTXT1.2.840.928307.1.13.104.2.7. 2.196486|[id number] for patient wuyo12515-0SiueDMCTVXEBDTEHkydkaovs C-CDA narrative textUT[id number] 7MINCWGYNOUNKTUMSPBZIIQ2707-17-11Z6 4:32:431.2.840.428808.1.72.3.15|1.2 .840.960238.1.13.104.2.7.2.727879_2 [id number] [facility] 2024-01-28 13:58:33 4466-10-08T95:58:33 Copied from [facility] #[id number]. 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 Please contact pt at [phone]. 91827-9Hluljjhnr encounter FdqpPC4068-88-98C45:58:51Telephone encounter NoteTXT1.2.840.860066.1.13.104.2.7. 2.886068|[id number] for patient odaq55495-6TpsxDWMVMVZVMMEFdtyvmcih C-CDA narrative [id number] Mehul[id number] 3VSOCOGJTJWYYFPDPCRPBQO4933-00-58M1 3:58:511.2.840.114370.1.72.3.15|1.2 .840.089777.1.13.104.2.7.2.727879_2 [id number] Hector Carver [facility] 2024-01-24 23:52:29 5610-22-64X99:52:29 Patient arrived ambulatory to ED c/o abd cramping and lower back pain that woke her up tonight. First . Dr. Sparks. 18 weeks 2 days. 22425-8Wlfpbtwbu department Triage demmUH8517-40-97B08:56:29[facility] Triage noteTXT1.2.840.865576.1.13.104.2.7. 2.649601|[id number] for patient aska34715-2Icedqaedm department NoteLNNARRATIVEFormatted C-CDA narrative [id number]-Umacj McInnis RN[id number] 7INVYOBZXTBNYEPPXJOYBAF4017-23-30L1 3:56:291.2.840.926921.1.72.3.15|1.2 .840.107693.1.13.104.2.7.2.727879_2 [id number] Ar Russell RN [facility] 2023-12-31 16:06:43 6724-91-04V87:06:43 Called pt, discussed lab results and poc. Pt verbalized understanding.Ethel Peterson RN 12/31/23 4:07 PM 02071-3Hbddormdy encounter OabzKH1839-37-32O11:07:58Telephone encounter NoteTXT1.2.840.446972.1.13.104.2.7. 2.837244|[id number] for patient vrqb20833-2ZpuhFOMVBUNZHSEGhvrzlozn C-CDA narrative [id number] 1OODPCMLWAMKVNQZJZWWQXW6630-99-44T7 6:07:581.2.840.040199.1.72.3.15|1.2 .840.035649.1.13.104.2.7.2.727879_2 [id number] [facility] 2023-12-31 15:56:38 5304-90-82F17:56:38 Called pt, no answer. Left vm.Ethel Peterson RN 12/31/23 3:56 PM 31634-2Exdrhulvm encounter OrtcXZ3056-62-03L27:56:48Telephone encounter NoteTXT1.2.840.780908.1.13.104.2.7. 2.377428|[id number] for patient fdjj24440-9XuotUMPSLPLUACFWfgrnprev C-CDA narrative [id number] 6VIBIGZKWROUMNQKXIEECCV7819-36-38T8 5:56:481.2.840.186948.1.72.3.15|1.2 .840.284919.1.13.104.2.7.2.727879_2 [id number] [facility] 2023-12-31 15:56:07 4432-16-03S08:56:07 Duplicate encounter.Ethel Peterson RN 12/31/23 3:56 PM 72917-3Rowhtanlz encounter SuhrAV0705-95-51S70:56:17Telephone encounter NoteTXT1.2.840.900424.1.13.104.2.7. 2.298031|7525691012KACyumfscvo for patient zbdm58063-7ElpqZZNKYYLRQQBQmqhbvhao C-CDA narrative text[id number] 4DMEREJFFIIYONZEKLGKVCF4227-84-20Y6 5:56:171.2.840.015384.1.72.3.15|1.2 .840.173829.1.13.104.2.7.2.727879_2 [id number] [facility] 2023-12-31 13:42:57 6694-55-74S64:42:57 Results call 49775-4Gjyuvmwfv encounter HlnfES8408-08-85B14:43:39Telephone encounter NoteTXT1.2.840.114086.1.13.104.2.7. 2.895707|[id number] for patient yigt78394-4TntxDXMUDEWUYDGHytdhydsj C-CDA narrative [id number] P Robinson02 Chang StreetHrbo[id number] 0WEDOZHOBSIZVPHPJQMJUKD0997-31-53C9 3:43:391.2.840.856229.1.72.3.15|1.2 .840.086311.1.13.104.2.7.2.727879_2 [id number] Andriy Godinez [facility] 2023-12-31 13:37:52 6773-60-15O05:37:52 Please advise pt her beta is trending up, heart tones was ausculted on her last visit, her hepatic function labs are wnl. Please advise her on good moisturizing body cream, ie anni butter, Eucerin cream, aveeno creamSHONA Gillis 12/31/2023 1:40 PM 98300-3Afsqoefkn encounter FhatVA3609-01-26M99:41:30Telephone encounter NoteTXT1.2.840.636034.1.13.104.2.7. 2.132236|[id number] for patient lihb78585-4JyaeSNKQFRDUQKHPskbcvvno C-CDA narrative [id number] 0DSQVGLRASCJDMYDCPSQZMV1873-18-13A5 3:41:301.2.840.893939.1.72.3.15|1.2 .840.808438.1.13.104.2.7.2.727879_2 [id number] [facility] 2023-12-25 15:44:45 5765-50-76M47:44:45 Consult/referral SHONA Deleon 12/25/2023 3:44 PM 49488-5Crxgapouh encounter TmjsRR9666-60-74U54:45:03Telephone encounter NoteTXT1.2.840.929196.1.13.104.2.7. 2.181182|2469869366WIZxiwuejzx for patient yfbg63709-9HpwqQTONJHWHGAKHlyfackfd C-CDA narrative [id number] 7XGYYIIAILOGWVLTMGBAKNZ7665-76-93H1 5:45:031.2.840.054059.1.72.3.15|1.2 .840.063073.1.13.104.2.7.2.727879_2 [id number] [facility] 2023-12-25 11:31:55 1623-02-52Y17:31:55 Called pt, pt having depression in the . Pt has been evaluated by provider and now desires medications. Routed to provider for poc.Ethel Peterson RN 12/25/23 11:33 AM 36275-6Voeludziu encounter ZvhjDP5536-71-28Z06:34:58Telephone encounter NoteTXT1.2.840.038627.1.13.104.2.7. 2.896156|[id number] for patient ddxo64026-5LcytLBQWBKLVAFLVgccfjhgm C-CDA narrative text[id number] 6VTDPBKQEZHZXUVMUHSXYSX5467-28-42N4 1:34:581.2.840.975816.1.72.3.15|1.2 .840.400478.1.13.104.2.7.2.727879_2 [id number] [facility] 2023-12-25 11:13:22 3577-02-48J02:13:22 Copied from [facility] #[id number]. Topic: Clinical - Medical Advice>> December 25, 2023 11:10 AM Patient Tobacco Grader wrote:Maylin Zuniga is a 23 year old femalePt wants to know if she can be prescribed antidepressants. Pt was on VENLAFAXINE XR 37.5 mg and wants to know if that is safe to take while Please call pt at [phone] (home)[facility]/pharmacy #[id number] [place], [place] - [facility] [address] [facility] STREETPhone: Tircwihawtjpyx signed by Eugenie Ngo at 12/25/2023 11:15 AM DPR90530-6Axkoqmcuo encounter LtwfJV6034-51-76U59:15:19Telephone encounter NoteTXT1.2.840.722680.1.13.104.2.7. 2.539943|5723306586LBVsbxksamv for patient dpen09330-1VnmkQWPFHIHVUHWZperrokvo C-CDA narrative [id number] A CloydUT[id number] 5BSGGGUWRJSLRCYGYINHQBR3540-04-05Y7 1:15:191.2.840.203655.1.72.3.15|1.2 .840.663294.1.13.104.2.7.2.727879_2 [id number] Eugenie Ngo [facility] 2023-11-27 16:21:49 5058-82-42J98:21:49 Called pt, discussed pap results and POC. Pt verbalized understanding.Ethel Peterson RN 11/27/23 4:21 PM 61780-2Hkewxdhgg encounter ReyxTB3189-53-10Z36:24:37Telephone encounter NoteTXT1.2.840.604349.1.13.104.2.7. 2.584528|8530471030PSWqbakxmoz for patient maqm55370-9HgqtZUWHTAHUASFGbhiryhif C-CDA narrative text[id number] 0ZBMEVICPUNPJVFGUFGIVDE8342-62-65V5 6:24:371.2.840.272450.1.72.3.15|1.2 .840.865128.1.13.104.2.7.2.727879_2 [id number] [facility] 2023-11-27 16:17:08 4480-41-95F26:17:08 Copied from [facility] #[id number]. Topic: Customer Service - Missed Call from Provider>> Nov 27, 2023 4:16 PM Patient Tobacco Grader wrote:Patient returned missed call from nurse 95000-1Pupiuwjgy encounter MuznVG9993-50-27B95:17:32Telephone encounter NoteTXT1.2.840.127699.1.13.104.2.7. 2.207014|8539956678WOEowucbxxb for patient rbhn42213-0VbbmJIIRTHERLHGNccfvzamc C-CDA narrative rdbv606894051Zxyyjcgmu L [id number] 0WCUZXNIAZSNUIVINJWPHEH3216-78-50L2 6:17:321.2.840.692889.1.72.3.15|1.2 .840.319093.1.13.104.2.7.2.727879_2 [id number] Avelina Crandall [facility] 2023-11-27 16:02:18 0297-21-70A44:02:18 Called pt, no answer. Left vm.Ethel Peterson RN 11/27/23 4:02 PM 94771-2Btapjdqdi encounter UvqtDG3760-05-30D07:02:34Telephone encounter NoteTXT1.2.840.494259.1.13.104.2.7. 2.992015|1061879880EXYmbcdkvqi for patient wpoi67728-8KnbrGJHJGFQDTGHGkrsojxfg C-CDA narrative text[id number] 4HNKKWUVUSUOHWOCPJEQZBG6586-10-95B3 6:02:341.2.840.462421.1.72.3.15|1.2 .840.629584.1.13.104.2.7.2.727879_2 [id number] [facility] 2023-11-27 15:55:44 0236-27-27D01:55:44 LGSIL pap will need repeat pap in 1 yearSHONA Gillis 11/27/2023 3:56 PM 66690-9Jlejmzygy encounter RuyzVQ6913-90-51Z26:56:34Telephone encounter NoteTXT1.2.840.388443.1.13.104.2.7. 2.976839|8107376351ATPhixpzagu for patient tzjt37157-4JafbIFPZGLADJHPHwzqgvvjt C-CDA [id number] 9SSFWNDIEAQOWXDQVDCOAGH0397-66-78L1 5:56:341.2.840.098071.1.72.3.15|1.2 .840.517276.1.13.104.2.7.2.727879_2 [id number] [facility] 2023-11-15 14:57:53 9278-32-77G91:57:53 Called pt, discussed lab results. Pt signed ROR for usg, advised provider will FU with poc once she receives the report. Pt verbalized understanding.Ethel Peterson RN 11/15/23 2:58 PM 59025-6Icljfmljx encounter XgjvIJ1120-35-95B56:58:44Telephone encounter NoteTXT1.2.840.209779.1.13.104.2.7. 2.438820|4374290439VCTzwwhhydk for patient fzoy81454-5EmqwZWUAKVSLRDPWlqupwtjy C-CDA narrative [id number] 2GAQSCSRWQUBNBZQNHRGLEP9759-26-65D4 4:58:441.2.840.330660.1.72.3.15|1.2 .840.081416.1.13.104.2.7.2.727879_2 [id number] [facility] 2023-11-15 11:31:30 9694-77-15G79:31:30 Maylin Zuniga is a 23 year old femalePt is calling to notify provider that she has ovarian cyst results received from her previous provider and pt is requesting to discuss most recent lab results. Pt is 8wks . Please contact pt at [phone]. 82856-8Wwbzmccal encounter HuwySH8173-19-81T16:32:40Telephone encounter NoteTXT1.2.840.826204.1.13.104.2.7. 2.462077|2975292242JZBrfdjhskt for patient omqm14642-2ZmugUTREWRFYUDOCzcdfswls C-CDA narrative mchr64000251Jefdfv Man[address] DffrWvcoewhbgPktszsnjsSTPY661784746 1ZGMQYAZDVSRVRDBATASDBR3566-24-92V0 1:32:401.2.840.893987.1.72.3.15|1.2 .840.083714.1.13.104.2.7.2.727879_2 [id number] Hector Carver [facility] 2023-11-11 23:49:53 6531-95-33V62:49:53 Pt given printed and verbal discharge instructions [...] with steady gait, in no apparent distress 86862-5Oqoaloawv department OizhJU7189-18-74M81:50:38[facility] NoteTXT1.2.840.604290.1.13.104.2.7. 2.971330|5571770578QCLlqslxobs for patient wmql05871-6RxoiVRXLBOXVFWHEjrshcvub C-CDA narrative kkjx724686695Cbbdozp A Diaz RN[id number] 9RUKBBKORTCJJIWAWCQKXUN1260-38-88E8 3:50:381.2.840.932952.1.72.3.15|1.2 .840.038288.1.13.104.2.7.2.727879_2 [id number] Keli Banks RN [facility] 2023-11-11 23:24:06 0037-15-02H68:24:06 Ice chips given 55603-8Ewplbpvdo department YvusZC4015-78-52R56:24:17[facility] department NoteTXT1.2.840.518933.1.13.104.2.7. 2.596634|5750484352TBTvtbswexo for patient zhxj93186-3IbwqOTKQVWGKQVPScsbjfzjh C-CDA narrative ozda597935487Lghvx A. Campbell RN[address] PwrrMtalcypaqGrkcngelrQDIV038299365 0UTWTMGZTYDGLZECDNEYWAX4306-43-57L4 3:24:171.2.840.241948.1.72.3.15|1.2 .840.772277.1.13.104.2.7.2.727879_2 [id number] Anabela Carson RN [facility] 2023-11-11 22:30:00 7944-27-94H11:30:00 Ice chips given 66414-4Fxzrlrpsm department NrtwUX2165-54-04E89:44:11[facility] department NoteTXT1.2.840.276556.1.13.104.2.7. 2.724288|1796387714AQQhscbzskw for patient ehkt96943-4BiywQYBDPJSZFKNEyfwqbngc C-CDA narrative textUT[id number] 0RMWBSLPQHKLITISWXSUPMI3994-67-33D5 2:44:111.2.840.965548.1.72.3.15|1.2 .840.799398.1.13.104.2.7.2.727879_2 [id number] [facility] 2023-11-11 21:43:20 6786-34-21J21:43:20 CC: Pt reports "I can't keep anything down" She ran out of zofran and is using preggie pops? Pt is 7 wks Awake, alert, oriented, resp reg unlabored, skin warm, color appropriate for race, moves all ext without difficulty, amb with steady gait 43844-0Erdmpoxos department Triage tbepNS5942-96-22A10:44:20[facility] department Triage noteTXT1.2.840.690689.1.13.104.2.7. 2.527559|2520283269YDTvtwbothi for patient fqml38059-1Yfzyjsmie department NoteLNNARRATIVEFormatted C-CDA narrative hmwn371014003Ddtfwi R Shehadeh RNUT[id number] 0WJVSRDGKKHYIIFWHJIPSVR4893-23-11Q1 1:44:201.2.840.041498.1.72.3.15|1.2 .840.370232.1.13.104.2.7.2.727879_2 [id number] Alisia Guzman RN [facility] 2023-11-01 15:42:51 9960-90-76D02:42:51 Maylin Zuniga is a 23 year old femalePt is calling requesting to speak with Rajwinder at clinic to continue conversation regarding insurance questions. Pt connected w/ clinic Pss. 08971-9Cgzacfkrl encounter TgucTO2428-71-51G28:43:27Telephone encounter NoteTXT1.2.840.337115.1.13.104.2.7. 2.467741|3445546043UQHvrqgzjvz for patient jsby67831-6RhheIJBFBWXOOITNvtehippp C-CDA narrative jgqc83685220Btkseg Manholly[address] BnixUuxadguipEjhxkvsscGVYW089981689 6DRIPAILUWVJSWQUYSDZGCT9640-65-05W4 5:43:271.2.840.173076.1.72.3.15|1.2 .840.101576.1.13.104.2.7.2.727879_2 [id number] Hector Carver [facility] 2023-10-24 16:52:17 1526-44-31B28:52:17 Patient states that she is tired and hungry and is ready to leave. States "I just had the trans vag but I don't want to wait for the results, she said it would be an hour. My levels looked Ok so I'm just going to leave". AMA form signed, IV removed and patient left the department. 20528-0Izkejptam department OnttXJ9986-30-38O08:53:11Emergency department NoteTXT1.2.840.037288.1.13.104.2.7. 2.685836|6909278677RNPiaecmqzo for patient eved75703-1OvpvVCSKEEVPCFOFlpttlpkc C-CDA narrative text[id number] 3OVOKWCSATZIQUOXCQAGTXP1315-05-95H3 6:53:111.2.840.595767.1.72.3.15|1.2 .840.789609.1.13.104.2.7.2.727879_2 [id number] [facility] 2023-10-24 15:47:36 4751-69-33Y32:47:36 Pt being evaluated in ER at this time. 24064-4Ojfclzjmp encounter LfjiTW4790-14-65C12:47:47Telephone encounter NoteTXT1.2.840.724630.1.13.104.2.7. 2.250493|6869191615GXSpjxsjfuq for patient hrjg40262-6CcwpGVRNFRREJFLRhboiidha C-CDA narrative xyoe969681351Mbulldep Garcia [id number] 4EBUAKIZTXYZNUPJEKXVYTN2357-67-48A7 5:47:471.2.840.746630.1.72.3.15|1.2 .840.950379.1.13.104.2.7.2.727879_2 [id number] Francine Aparicio LVN [facility] 2023-10-24 14:46:48 6532-77-96G80:46:48 Maylin Zuniga is a 23 year old femalePt is calling to speak with a nurse to see if she is ok to take her VENLAFAXINE XR 37.5 mg 24 hr capsule while . Pt has not been taking the medication and is biting skin [place] [address]-5Ocortgafo encounter CmcfNW3388-40-98D12:50:37Telephone encounter NoteTXT1.2.840.537708.1.13.104.2.7. 2.685435|2177820869QHEzmdergfh for patient raoi71229-3ExsuICFORONLHRHFtxwzydyl C-CDA narrative cmrg246353637Dbktko P Robinson[id number] 1EJCPSVFZGLLZDQUPWDJLCQ9949-52-96P5 4:50:371.2.840.574896.1.72.3.15|1.2 .840.214539.1.13.104.2.7.2.727879_2 [id number] Andriy Godinez [facility] 2023-10-24 11:37:27 9420-13-43A94:37:27 Patient reports being 6 weeks and began cramping this AM with no discharge. Patient has not had first appointment yet with OB which is scheduled for the . B5Urtrsitsxoxawb signed by Manda Harrell RN at 10/24/2023 11:38 AM HRS42081-8Gfdgyejqd department Triage iaegTN4091-71-78P34:38:44Emergency department Triage noteTXT1.2.840.424080.1.13.104.2.7. 2.626772|9978640132WENklgoaxht for patient gryu85564-3Zpfbsfimx department NoteLNNARRATIVEFormatted C-CDA narrative ogyb165109211Axra M Hayes [id number] 6JLBVFRSSQINTRZHDSPXOMJ1267-43-68U5 1:38:441.2.840.659855.1.72.3.15|1.2 .840.498103.1.13.104.2.7.2.727879_2 [id number] Manda Harrell RN [facility] 2023-08-13 11:31:01 8305-88-95V01:31:01 Maylin Zuniga is a 23 year old femaleovarian cysts on one or two ovaries x AprilPatient called to schedule appt with PGY.Please contact pt at [phone] (home) 06791-5Qbrktwafc encounter QonbXQ9611-41-44O64:31:38Telephone encounter NoteTXT1.2.840.236596.1.13.104.2.7. 2.495395|8142704047XNZgbxxizbx for patient qtmc23362-0IyaqKXYRPCVHVDBDwydiaivr C-CDA narrative yiay100267357Wiuasngvb L [address] AzoxRgssqxfquYhiuiaxedCOQU942440673 4ZLHXUBVDSKCAFCBQLGUKHR7817-62-79N0 1:31:381.2.840.580119.1.72.3.15|1.2 .840.388432.1.13.104.2.7.2.727879_1 [id number] Avelina Johnson [facility] 2023-04-24 12:05:28 4921-84-52B38:05:28 Pt left before obtaining discharge paperwork. 98287-5Uxdrwvdtl department JseaQR3815-66-19X32:05:42Emergency department NoteTXT1.2.840.390776.1.13.104.2.7. 2.279763|6020271870TMUsngemwrx for patient utsv87682-8XjytEE117489004Kvhjmad Fief RN[id number] 8FUBZCHRPMLLXXAIWVAMKHG2464-31-25C7 2:05:421.2.840.802259.1.72.3.15|1.2 .840.681082.1.13.104.2.7.2.727879_1 [id number] Anne Isabel WISE [facility] 2023-04-24 10:09:17 0960-32-99A24:09:17 Patient states "I have one positive test and one negative test for . So I just wanted to make sure."Patient here for confirmation. 88624-3Geqhkcjcl department Triage mznrVS1102-84-61T98:09:58Emergency department Triage noteTXT1.2.840.786557.1.13.104.2.7. 2.129867|9674289107WHLelvzthey for patient ruwz24410-9Acmmwlyqr department NwqfFI431529168Xxgga S Cryer RNUT[id number] 5PKCYFMAXPOTWFEDQITRDXR3011-04-16S6 0:09:581.2.840.016782.1.72.3.15|1.2 .840.689057.1.13.104.2.7.2.727879_1 [id number] Amanda Hoang RN [facility] 2023-04-08 08:38:40 7603-24-57F52:38:40 Spoke with patient, verbalized understanding medication is at the pharmacy. 55633-5Ngvabbkrj encounter XfdmYC1341-50-93N90:40:04Telephone encounter NoteTXT1.2.840.780772.1.13.104.2.7. 2.829332|2258020629GJJdekhzvxi for patient cppx04442-1GokjNA401237990Vqmroi L Reid RN[id number] 3RDJQMNWPIBOQOXCYZZGNTJ7772-31-28D7 8:40:041.2.840.753472.1.72.3.15|1.2 .840.166755.1.13.104.2.7.2.727879_1 [id number] Nora Alonso RN [facility] 2023-04-04 16:31:40 7859-60-85T88:31:40 I have sent nausea medications to the pharmacyPlease let patient know 47141-1Wyizhxfdk encounter DkanHO3445-37-85G30:32:32Telephone encounter NoteTXT1.2.840.363650.1.13.104.2.7. 2.804144|9259152189VFHwouzldaq for patient przh19946-3UpmpVLVDQCZDNG[address]TXTX[address] 0EWXPGXZLKPNFXJTYIMLSQC6043-84-27Q0 6:32:321.2.840.016186.1.72.3.15|1.2 .840.805674.1.13.104.2.7.2.727879_1 [id number] [facility] 2023-04-01 13:30:00 8011-64-55Y87:30:00 Images from the original note were not included.Venipuncture collection performed by clean technique on the left anticubitus. Total of 1 attempts were made. Slight pressure and a bandage/dressing were applied to the site(s). The patient experienced no complications. The following specimens were processed according to instructions and sent to [facility] laboratories per lab order on 04/01/2023: LT BLUE SST 3 RED LAV 1 PPT DK GREEN (LiHep) DK GREEN (SodH) KRISHNAN DK BLUE (K2) DK BLUE (S) ACD Blood Culture NIPT/NTD 31622-1Ehkfv TpjsXL5451-37-13K32:37:41Nurse NoteTXT1.2.840.541837.1.13.104.2.7. 2.651028|1121746451IMOawawyrgp for patient pent15652-0Zaodc Note[id number] 1FINJTLQLTUROGDHDZHCTZR8073-38-02W2 3:37:411.2.840.955119.1.72.3.15|1.2 .840.969515.1.13.104.2.7.2.727879_1 [id number] [facility] 2023-03-13 14:39:33 5507-39-34T51:39:33 Rx sent, let patient know, and to follow-up as scheduled. 57849-3Sogdalkkw encounter XnpqRR0188-58-62A47:39:33Telephone encounter NoteTXT1.2.840.414639.1.13.104.2.7. 2.511238|0790248700APVlyaleaaj for patient kxms30557-3YaauTPPJXLMWCE[id number] 2WWJSGKLWXBDAGYNKXAFCEZ0901-46-62H5 4:39:331.2.840.280151.1.72.3.15|1.2 .840.093091.1.13.104.2.7.2.727879_1 [id number] [facility] 2023-03-11 08:25:31 7330-13-85B52:25:31 NICOLE 02/14/23NOV 03/14/23LRD 02/14/23Routing to correct pool 74613-1Rvafubnrr encounter TahoYH4641-74-77Z85:26:31Telephone encounter NoteTXT1.2.840.312035.1.13.104.2.7. 2.814009|[id number] for patient lzpo19730-2RzmsSLTU-JRCEUSGPZDVE-VG YCHIATRY[address] FiroWdzfuhnsfKvythfcibZUVL282755733 7HIVYMPMIEHXAXSHRJLSRFF0222-14-40X1 8:26:311.2.840.288100.1.72.3.15|1.2 .840.312980.1.13.104.2.7.2.727879_1 [id number] PN-PSYCHIATRY [facility]
--- NOTE | 2024-03-09 23:10 | RAD REPORT ---
EXAM DESCRIPTION: US - OB Limited - 03/09/2024 10:20 pm CLINICAL HISTORY: with decreased movement COMPARISON: December 2023 FINDINGS: Single live intrauterine in breech presentation. Amniotic fluid normal. Placenta posterior. No subchorionic/retroplacental bleed. The previously described circumvallate plac enta was not well depicted on the current exam although the evaluation was suboptimal secondary to ad jacent body parts Cervix 5 centimeters. It is closed Femur length 4.3 centimeters. Cardiac activity 133 beats per minute. The right and left at adnexa unremarkable IMPRESSION: Single live intrauterine in breech presentation Estimated gestational age 24 weeks 3 days GILMAR 06/26/2024 Appropriate interval growth
[2024-03-09 23:11] LABS: Absolute Basophils 0.1 K/uL (0-0.5); Absolute Eosinophils 0.4 K/uL (0-0.5); Absolute Lymphocytes (CBC) 2.9 K/uL (0.7-4.9); Absolute Monocytes 0.9 K/uL (0.1-1.3); Absolute Neutrophil 6.7 K/uL (1.8-8.0); Basophils % 0.5 % (0-1.3); Eosinophils % 3.3 % (0-4.4); Hematocrit 35.5 % (36.0-45.0); Hemoglobin 11.9 g/dL (12.0-15.0); Lymphocytes % 26.7 % (15.3-44.8); MCHC 33.6 g/dL (32.0-36.0); MCV 95.3 fL (80-100); MPV 8.7 fL (7.6-11.3); Neutrophils % 61.5 % (41.7-73.7); Platelets 260 thou/uL (152-406); RBC Red Blood Cell Count 3.72 M/uL (3.86-4.86); Red Cell Distribution Width 12.1 % (12.1-15.2)
[2024-03-09 23:40] LABS: Albumin 2.9 g/dL (3.4-5.0); Albumin/Globulin Ratio 0.8 (1.1-1.8); Alkaline Phosphatase 65 U/L (45-117); Anion Gap 7.7 mEq/L (5.0-15.0); BUN Blood Urea Nitrogen 7 mg/dL (7-18); Bicarbonate 27 mEq/L (21-32); Bilirubin Total 0.2 mg/dL (0.2-1.0); Globulin 3.8 g/dL (2.3-3.5); Glomerular Filtration Rate 137 ml/min (=/>90); Glucose Level 78 mg/dL (74-106); HCG, Quantitative 1834 mIU/mL (1-3); Potassium 3.7 mEq/L (3.5-5.1); Protein, Total 6.7 g/dL (6.4-8.2); Sodium Level 137 mEq/L (136-145)
[2024-03-09 23:43] LABS: ALT/SGPT < 14 U/L (13-56); AST/SGOT < 10 U/L (15-37)
[2024-03-10 00:06] LABS: Calcium Oxalate Crystals- Ur Few /HPF (None Seen); Specific Gravity > 1.030 (1.005-1.030); Sqamous Epithelial <5 /HPF (None Seen); Urine Bacteria <20 /HPF (<20); Urine Bilirubin NEGATIVE (Negative); Urine Blood Negative (Negative); Urine Clarity Clear (Clear); Urine Color Yellow (Yellow); Urine Culture Reflex Order NOT NEEDED; Urine Glucose NEGATIVE (Negative); Urine Ketones NEGATIVE (Negative); Urine Microscopic Reflex YN ORDER UMIC; Urine Mucus Slight /HPF (None Seen); Urine Nitrite NEGATIVE (Negative); Urine Protein TRACE (Negative); Urine RBC <5 /HPF (None Seen); Urine Urobilinogen 1+ (Normal); Urine WBC <5 /HPF (<5); Urine pH 5.5 (5.0-7.0)
--- NOTE | 2024-03-10 00:32 | ER ---
Nurse's Notes [facility] Name: Maylin Zuniga Age: 23 yrs Sex: Female : 2000 Arrival Date: 03/09/2024 Time: 21:45 Bed 23 Private MD: Diagnosis: at 24 weeks , concern about , decreased movement;Proteinuria, unspecified Presentation: 03/09 21:53 Chief complaint: Patient states: decrease movement since 11 am had MD appt today kl at 9 am reports intermittent lower abdominal pain reports 3 hours apart denies vag bleeding or discharge receives care at [facility] normal ultrasound on 02/25. Coronavirus screen: Vaccine status: Patient reports being unvaccinated. Ebola Screen: Patient negative for fever greater than or equal to 101.5 degrees Fahrenheit, and additional compatible Ebola Virus Disease symptoms. Initial Sepsis Screen: Does the patient meet any 2 criteria? No. Patient's initial sepsis screen is negative. Does the patient have a suspected source of infection? No. Patient's initial sepsis screen is negative. Risk Assessment: Do you want to hurt yourself or someone else? Patient reports no desire to harm self or others. Onset of symptoms was March 09, 2024 at 11:00. 21:53 Method Of Arrival: Ambulatory kl 21:53 Acuity: VINNY 2 kl Triage Assessment: 21:57 General: Appears in no apparent distress. Behavior is calm, cooperative. Pain: kl Complains of pain in suprapubic area Pain currently is 4 out of 10 on a pain scale. 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 - Infectious Disease History:: Denies. - Social history:: Smoking status: Patient denies any tobacco usage or history of. Screenin:03 [facility] ED Fall Risk Assessment (Adult) History of falling in the last 3 months, me1 including since admission No falls in past 3 months (0 pts) Confusion or Disorientation No (0 pts) Intoxicated or Sedated No (0 pts) Impaired Gait No (0 pts) Mobility Assist Device Used No (0 pt) Altered Elimination No (0 pt) Score/Fall Risk Level 0 - 2 = Low Risk Maintained a safe environment, Provided non-skid footwear, Hourly rounding (assess needs \T\ fall precautionary measures) done. Abuse screen: Denies threats or abuse. Nutritional screening: No deficits noted. Tuberculosis screening: No symptoms or risk factors identified. Assessment: 23:03 General: Appears comfortable, well groomed, well developed, well nourished, Behavior is me1 calm, cooperative, appropriate for age, Reports decrease movement since 11 am had MD appt today at 9 am reports intermittent lower abdominal pain reports 3 hours apart denies vag bleeding or discharge receives care at [facility] normal ultrasound on 02/25. Pain: Denies pain. Neuro: Level of Consciousness is awake, alert, obeys commands, Oriented to person, place, time, situation, Appropriate for age. Cardiovascular: Capillary refill < 3 seconds Patient's skin is warm and dry. Respiratory: Airway is patent Trachea midline Respiratory effort is even, unlabored, Respiratory pattern is regular, symmetrical. GI: No signs and/or symptoms were reported involving the gastrointestinal system. : No signs and/or symptoms were reported regarding the genitourinary system. Denies vaginal bleeding. EENT: No signs and/or symptoms were reported regarding the EENT system. Derm: Skin is intact, is healthy with good turgor, Skin is pink, warm \T\ dry. Musculoskeletal: No signs and/or symptoms reported regarding the musculoskeletal system. 03/10 00:36 Reassessment: Patient appears in no apparent distress at this time. Patient and/or jb4 family updated on plan of care and expected duration. Pain level reassessed. Patient is alert, oriented x 3, equal unlabored respirations, skin warm/dry/pink. Vital Signs: 03/09 21:53 BP 137 / 73; Pulse 86; Resp 18; Temp 97.8(TE); Pulse Ox 98% on R/A; Weight 72.03 kg; kl Height 5 ft. 4 in. ; Pain 5/10; 22:55 BP 110 / 74; Pulse 85; Resp 16; Pulse Ox 100% on R/A; me1 23:30 BP 124 / 80; Pulse 74; Resp 16; Pulse Ox 98% ; me1 21:53 Body Mass Index 27.26 (72.03 kg, 162.56 cm) kl 21:53 Pain Scale: Adult kl ED Course: 21:48 Patient arrived in ED. mr 21:53 Marco Gonzalez MD is Attending Physician. sp4 21:56 Triage completed. kl 22:22 US OB Limited In Process Unspecified. EDMS 22:40 CBC with Diff Sent. bc6 22:40 CMP Sent. bc6 22:40 HCG-Quantitative Sent. bc6 22:41 Initial lab(s) drawn, by nd, sent to lab. Inserted saline lock: 20 gauge in right bc6 antecubital area, using aseptic technique. Blood collected. 23:00 Sayra Vines, RN is Primary Nurse. me1 23:03 No provider procedures requiring assistance completed. me1 23:03 Patient has correct armband on for positive identification. Bed in low position. Call me1 light in reach. Side rails up X2. Provided Education on: POC. Verbalized understanding. . Client placed on continuous cardiac and pulse oximetry monitoring. NIBP monitoring applied. Pulse ox on. NIBP on. 23:47 Urinalysis w/ reflexes Sent. me1 03/10 00:36 IV discontinued, intact, bleeding controlled, No redness/swelling at site. Pressure jb4 dressing applied. Administered Medications: No medications were administered Medication: 03/09 23:03 VIS not applicable for this client. nd1 Outcome: 03/10 00:32 Discharge ordered by . sp4 00:36 Discharged to home ambulatory, with friend, williams 00:36 Condition: stable 00:36 Discharge instructions given to patient, Instructed on discharge instructions, follow up and referral plans. Demonstrated understanding of instructions, follow-up care, 00:37 Patient left the ED. jb4 Signatures: Dispatcher [employer] Betty Taylor, Caren Weir RN, Reg Reg Abdoul Walker RN RN Geeta Hernandez [facility] Marco Gonzalez MD MD sp4 Eddleman, Michelle, RN RN [facility] Corrections: (The following items were deleted from the chart) 03/09 23:03 21:53 Chief complaint: Patient states: decrease movement since 11 am had appt me1 today at 9 am reports intermittent lower abdominal pain reports 3 hours apart denies vag bleeding or discharge receives care at [facility] normal ultrasound on 02/25 kl
--- NOTE | 2024-03-10 00:32 | EDPHYS ---
Physician Documentation [facility] Name: Maylin Rivera Age: 23 yrs Sex: Female : 2000 Arrival Date: 03/09/2024 Time: 21:45 Bed 23 Private MD: ED Physician Marco Gonzalez HPI: 03/09 21:54 This 23 yrs old Female presents to ER via Unassigned with complaints of 24 wks sp4 , Decreased movement, Doesn't Feel Right. 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 - Infectious Disease History:: Denies. - Social history:: Smoking status: Patient denies any tobacco usage or history of. Vital Signs: 21:53 BP 137 / 73; Pulse 86; Resp 18; Temp 97.8(TE); Pulse Ox 98% on R/A; Weight 72.03 kg; kl Height 5 ft. 4 in. ; Pain 5/10; 22:55 BP 110 / 74; Pulse 85; Resp 16; Pulse Ox 100% on R/A; me1 23:30 BP 124 / 80; Pulse 74; Resp 16; Pulse Ox 98% ; me1 21:53 Body Mass Index 27.26 (72.03 kg, 162.56 cm) kl 21:53 Pain Scale: Adult kl MDM: 21:55 Patient medically screened. sp4 23:45 ED course: RADIOLOGYSERVICES REPORT Name: MAYLIN RIVERA Acct Number: s :2000 Age:23 Sex:F Ord Phys: Marco Gonzalez MD Unit Number: [id number] Prim Care Dr: NONE Status: REG ER ER Exam Date: 03/09/24 EXAM DESCRIPTION: US - OB Limited - 03/09/2024 10:20 pm CLINICAL HISTORY: with decreased movement COMPARISON: December 2023 FINDINGS: Single live intrauterine in breech presentation. Amniotic fluid normal. Placenta posterior. No subchorionic/retroplacental bleed. The previously described circumvallate placenta was not well depicted on the current exam although the evaluation was suboptimal secondary to adjacent body parts Cervix 5 centimeters. It is closed Femur length 4.3 centimeters. Cardiac activity 133 beats per minute. The right and left at adnexa unremarkable IMPRESSION: Single live intrauterine in breech presentation Estimated gestational age 24 weeks 3 days GILMAR 06/26/2024 Appropriate interval growth Signed By: Richie Perkins MD. 03/09 22:00 Order name: HCG-Quantitative; Complete Time: 23:45 sp4 03/09 22:00 Order name: CBC with Diff; Complete Time: 23:19 sp4 03/09 22:00 Order name: CMP; Complete Time: 23:45 sp4 03/09 22:00 Order name: Urinalysis w/ reflexes; Complete Time: 00:30 sp4 03/09 21:55 Order name: US OB Limited; Complete Time: 23:19 sp4 03/09 22:00 Order name: IV Saline Lock; Complete Time: 22:40 sp4 03/09 22:00 Order name: Labs collected and sent; Complete Time: 22:40 sp4 Administered Medications: No medications were administered Disposition Summary: 03/10/24 00:32 Discharge Ordered Notes: Location: Home sp4 Problem: new sp4 Symptoms: have improved sp4 Condition: Stable sp4 Diagnosis - at 24 weeks , concern about , decreased movement sp4 - Proteinuria, unspecified sp4 Followup: sp4 - With: Private Physician - When: 7 - 10 days - Reason: Recheck today's complaints Discharge Instructions: - Discharge Summary Sheet sp4 - Care sp4 Signatures: Dispatcher [employer] Betty Taylor RN RN kl Potepalov, Sergey, MD MD sp4 Corrections: (The following items were deleted from the chart) 22:01 22:01 QUANTITATIVE HCG+C.LAB.BRZ ordered. EDMS EDMS 22:01 22:01 CBC+H.LAB.BRZ ordered. EDMS EDMS 22:01 22:01 COMPREHENSIVE METABOLIC PANEL+C.LAB.BRZ ordered. EDMS EDMS 22:01 22:01 Urinalysis+U.LAB.BRZ ordered. EDMS EDMS
[2024-03-10 00:41] VITALS: TEMP 97.8
[2024-03-10 00:44] VITALS: BP 124/80; O2SAT 98
== END 2024-03-10 00:37 | disposition home or self-care (01) ==
LOC: ER 21:45
DX: O36.8120 Decreased fetal movements, second trimester, not applicable or unspecified (principal); O12.12 Gestational proteinuria, second trimester; Z3A.24 24 weeks gestation of pregnancy
CPT/HCPCS: 36415; 76815; 80053; 81001; 84702; 85025; 99284

== ENCOUNTER 2025-05-15 13:13 | Emergency (ER) | payer OTHER ==
--- OUTSIDE RECORDS SUMMARY | 2025-05-15 13:30 | XMS REPORT | Continuity of Care Document ---
Author Name Unknown Address [address] [facility] [address] [place] [address] [facility] Address [address] [facility]. [address] [place] [address] Care Team Providers Care Bronc Breaker Name Role Phone LESLIE CASTELLANOS Primary Care Physician Unav ailLESLIE Fox Attending Clinician Unavail able OTONIEL GIBBS Attending Clinician UnavailCARLA Smith Attending Clinician UnavailCarla Gamboa CNM Attending Clinician [phone] Rahel Aguilar Attending Clinician [phone] RAHEL DICKSON Attending Clinician Unavailable UNKNOWN, ATTENDING Attending Clinician UnavailFletcher Cervantes MD Attending Clinician [phone] Arik Ulrich Attending Clinician [phone] Sho Jeffrey MD Attending Clinician + Doctor Unassigned, [place] Attending Clinician U MERYL Liang Attending Clinician Unavailab mando 1, [facility] Room Attending Clinician Unavailab Sully Tapia MD Attending Clinician [phone] Salvador MSN, Meryl A Attending Clinician [phone] CHAYA PELAEZ Attending Clinician Unavailable CHAYA PELAEZ Attending Clinician Unavailable Ladonna Shaw RN Attending Clinician UnavailMARIBETH Dacosta Attending Clinician Unavailable Unknown, Attending Attending Clinician Unavailab mando [facility], Maribeth Attending Clinician [phone] VENANCIO TAVAREZ Attending Clinician Unavailabl BAILEE Gautam Attending Clinician Unavailable HADLEY HINDS Attending Clinician Unavailable ROSALES CHAPIN Attending Clinician UnavailROSALES Markham Attending Clinician Unavailabl HADLEY Naqvi Attending Clinician Unavailable Hadley José PA-C Attending Clinician [phone] SANDRINE DELGADO Attending Clinician Unavailable SANDRINE DELGADO Attending Clinician Unavailable Sandrine Kowalski Attending Clinician [phone] GRETCHEN MURRAY Attending Clinician Unavailable Visit/Fp, [facility] Nurse Attending Clinician Un available Gretchen Cao Attending Clinician [phone] Gaurav Lala MD Attending Clinician [phone] Thomas Hardy DO Attending Clinician [phone] Akinsipe [facility], Leslie Curry Attending Clinician + Sadi Silverman MD Attending Clinician + [phone] María Andrade MD Attending Clinician [phone] DAISY CABELLO Attending Clinician Unavailable DAISY CABELLO Attending Clinician Unavailable Daisy Cabello MD Attending Clinician [phone] Risk, Ope-Rfibx-Vy/High Attending Clinician Unav ailable OBI-KERI REBECCA Attending Clinician Unavailab le OBI-KERI, REBECCA Attending Clinician Unavailab SEAN Ferrell Attending Clinician Unavailable SEAN ROBISON Attending Clinician Unavailable SEAN ROBISON Attending Clinician Unavailable Sean Robison MD Attending Clinician [phone] Aramis Claros MD Attending Clinician + LUZ MARIA PSOT Attending Clinician LUZ MARIA Pretty Attending Clinician Brodie Post MD, Luz Maria Attending Clinician [phone] Lawson Ball Attending Clinician + [phone] ERVIN BOWSER Attending Clinician Unav ailable Carolyn Tijerina MD, Ervin Attending Clinician + NAVEEN PAETL Attending Clinician Unavailable NAVEEN PATEL CAM Attending Clinician Unavailable Naveen Patel MD Attending Clinician [phone] Provider, Ang-Rmchp Temp Attending Clinician Erica CLAUDIA Mcclure Attending Clinician Unavail able CLAUDIA BARBOZA Attending Clinician Unavail able TWILA BARGER Attending Clinician Unavailable TWILA BARGER Attending Clinician Unavailable Doctor Unassigned, [place] Attending Clinician U navailable Akinsipe WHCNP, Leslie C Attending Clinician + Ultrasound, Ang-Mfm Attending Clinician Unavaila ble Risk, Fcb-Muofd-Cf/High Attending Clinician Unav ailable ELIZA WILKINSON Attending Clinician Unavailable DEXTER MCCONNELL Attending Clinician Unavail able DEXTER MCCONNELL Attending Clinician Unavail able Eliza Heller Attending Clinician + THOMAS HARDY Attending Clinician Unavailable THOMAS HARDY Attending Clinician Unavailable RANDI DO Attending Clinician Unavailable Ernestina CNPRandi Attending Clinician + [phone] SULLY MODI Attending Clinician UnavailSully Martinez MD Attending Clinician [phone] Carolyn Tijerina MD, Ervin Attending Clinician + Carla Vaughn CNM Attending Clinician [phone] ARNOLD BLUM Attending Clinician Unavailable Arnold Blum MD Attending Clinician [phone] Lawson COCHRAN Attending Clinician Unavailable Sydney Lubin MD Attending Clinician [phone] Katarina Attending Clinician Unavailable NACHO NGUYEN Attending Clinician Unavailable Nacho Nguyen MD Attending Clinician [phone] Pgy3 Attending Clinician Unavailable SYDNEY LUBIN Attending Clinician Unavailable SANDRINE ARRINGTON Attending Clinician Unavailable SANDRINE ARRINGTON Attending Clinician Unavailable Pgy2 Attending Clinician Unavailable Trevor X [employer] EX[employer], Gretchen Attending Clinician [phone] ELIZA OLIVIER Attending Clinician Unavailable Randolph X RAY EXAMINER OF AIRCRAFTRahel Fuentes Attending Clinician [phone], [facility] Attending Clinician Unavailable YAW BRO Attending Clinician Unavailable Yaw Bro DO Attending Clinician [phone] Nurse, [facility] Attending Clinician Un available Unknown, Attending Attending Clinician Unavailab ROSALES Escudero Attending Clinician Unavailradha Barrientos X [employer], Jacob Love Attending Clinician [phone] JACOB BARRIENTOS Attending Clinician Unavailab Bryce [facility] Nurse Attending Clinician Unava ilable ALIVIA LEE Attending Clinician Unavaila ble Ibikunmando X RAY EXAMINER OF AIRCRAFTAlivia Fuentes Attending Clinician [phone] CINDY APARICIO Attending Clinician Unavailradha Jones RN, Rayne Godoy Attending Clinician Unavailab NI Mckeon Attending Clinician Unavailable Joel Matt DO Attending Clinician [phone] Elena Lara Attending Clinician [phone] Provider, [facility] Attending Clinician Un available ELENA HATFIELD Attending Clinician Unavailable Fletcher Ramesh MD Attending Clinician [phone] Frank WISE, Ethel Attending Clinician Erica Alvin Robison Attending Clinician [phone] SEAN ROBISON Admitting Clinician Unavailable NAVEEN PATEL Admitting Clinician Unavailable DAISY CABELLO Admitting Clinician Unavailable OTONIEL GIBBS Admitting Clinician Unavailab RAHLE Herrera Admitting Clinician Unavailable JAYES, KIM Admitting Clinician Unavailable Jones ROCHA Thomas Admitting Clinician [phone] IRINEO, DAISY Crandall Admitting Clinician Unavailable Irineo STEPHENS, Daisy Crandall Admitting Clinician [phone] Ricki STEPHENS, Sean Admitting Clinician [phone] LUZ MARIA POST Admitting Clinician Brodie Post MD, Luz Maria Admitting Clinician +[phone] Naveen Patel MD Admitting Clinician [phone] THOMAS HARDY Admitting Clinician Unavailable Katarian Admitting Clinician Unavailable NACHO NGUYEN Admitting Clinician Unavailable YAW BRO Admitting Clinician Unavailable Payers Payer Name Policy Type Policy Number Effective Date Expirati on Date Source [facility] [id number] 2023 00:00:00 [place] [id number] 2023 00:00:00 [place] [id number] [facility] [id number] 2019 00:00:00 Problems Condition Name Condition Details Condition Category Status Onset Date Resolution Date Last Treatment Date Treating Clinician Comments Source Sprain of right foot, initial encounter Sprain of right foot, initial encounter Disease Active 04-25 00:00: 00 [facility] Injury of right ankle, initial encounter Injury of right ankle, initial encounter Disease Active 04-25 00:00: 00 [facility] History of pre-eclamp tiera in prior , currently History of pre-eclamp tiera in prior , currently Disease Active 03-25 00:00: 00 [facility] Miscarriag e Miscarriag e Disease Active 03-25 00:00: 00 [facility] 33 weeks gestation of 33 weeks gestation of Disease Active 2023-08 0 00:00: 00 [facility] Anxiety Anxiety Disease Active - 00:00: 00 [facility] Anxiety during Anxiety during Disease Active - 00:00: 00 [facility] 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 Repeat pap 11/2024 [facility] Nausea/vom iting in Nausea/vom iting in Disease Active 4-04 00:00: 00 [facility] Class 1 obesity due to excess calories with serious comorbidit y and body mass index (BMI) of 34.0 to 34.9 in adult Class 1 obesity due to excess calories with serious comorbidit y and body mass index (BMI) of 34.0 to 34.9 in adult Disease Active 3-24 00:00: 00 [facility] Other depression Other depression Disease Active 1- 00:00: 00 [facility] BMI 27.0-27.9, adult BMI 27.0-27.9, adult Disease Active 2018-08 0-16 00:00: 00 [facility] BMI 29.0-29.9, adult BMI 29.0-29.9, adult Disease Active 2018-08 0-16 00:00: 00 [facility] Obesity (BMI 30-39.9) Obesity (BMI 30-39.9) Disease Resolve d 2023-08 0-01 00:00: 00 2025-01-27 00:00:00 2025-01-27 11:21:39 [facility] Chlamydia trachomati s infection of lower genitourin jeremy sites Chlamydia trachomati s infection of lower genitourin jeremy sites Disease Resolve d 2-13 00:00: 00 2025-01-27 00:00:00 2025-01-27 11:21:35 [facility] Screening examinatio n for STD (sexually transmitte d disease) Screening examinatio n for STD (sexually transmitte d disease) Disease Resolve d 1-09 00:00: 00 2025-01-27 00:00:00 2025-01-27 11:21:30 [facility] Depression during Depression during Disease Resolve d 2019-0 1-09 00:00: 00 2025-01-08 00:00:00 2025-01-08 15:33:04 Overview: Formattin g of this note might be different from the original. Reports stopped meds 10/15/23 reports stable mood [facility] Preeclamps ia, severe, third trimester Preeclamps ia, severe, third trimester Disease Resolve d 2023-1 0-05 00:00: 00 2024-06-10 00:00:00 2024-06-10 16:52:40 [facility] Gestationa l hypertensi on Gestationa l hypertensi on Disease Resolve d 2023-08 0-01 00:00: 00 2024-06-10 00:00:00 2024-06-10 16:52:47 Overview: Formattin g of this note might be different from the original. Dx at the hospital [facility] 34 weeks gestation of 34 weeks gestation of Disease Resolve d 2023-1 0-01 00:00: 00 2024-06-10 00:00:00 2024-06-10 16:52:53 [facility] Supervisio n of high risk in second trimester Supervisio n of high risk in second trimester Disease Resolve d 2023-0 8-12 00:00: 00 2024-06-10 00:00:00 2024-06-10 16:52:38 [facility] Cramping affecting , antepartum Cramping affecting , antepartum Disease Resolve d 2023-0 7-04 00:00: 00 2024-06-10 00:00:00 2024-06-10 16:52:54 [facility] Vaginal bleeding before 22 weeks gestation Vaginal bleeding before 22 weeks gestation Disease Resolve d 2023-0 7-02 00:00: 00 2024-06-10 00:00:00 2024-06-10 16:52:32 [facility] History of miscarriag e History of miscarriag e Disease Resolve d 2023-0 4-04 00:00: 00 2024-06-10 00:00:00 2024-06-10 16:52:45 [facility] Nausea and vomiting during Nausea and vomiting during Disease Active 2023-0 4-04 00:00: 00 2024-06-10 00:00:00 2024-06-10 16:52:42 [facility] High-risk in second trimester High-risk in second trimester Disease Resolve d 2023-0 7-29 00:00: 00 2024-03-23 00:00:00 2024-03-23 08:09:40 [facility] 21 weeks gestation of 21 weeks gestation of Disease Resolve d 2023-0 7-04 00:00: 00 2024-03-17 00:00:00 2024-03-17 13:01:12 [facility] 20 weeks gestation of 20 weeks gestation of Disease Resolve d 0 7-02 00:00: 00 2024-03-17 00:00:00 2024-03-17 13:01:13 [facility] Over weight Over weight Disease Resolve d 2018- 0-16 00:00: 00 2023-11-14 00:00:00 2023-11-14 10:49:17 [facility] Need for prophylact ic vaccinatio n and inoculatio n against influenza Need for prophylact ic vaccinatio n and inoculatio n against influenza Disease Resolve d 0 3-24 00:00: 00 2022-09-21 00:00:00 2022-09-21 10:53:12 [facility] Need for prophylact ic vaccinatio n and inoculatio n against influenza Need for prophylact ic vaccinatio n and inoculatio n against influenza Disease Resolve d 0 3-24 00:00: 00 2022-09-21 00:00:00 2022-09-21 10:53:12 [facility] Feeling sad Feeling sad Disease Resolve d 2020-0 5-21 00:00: 00 2022-09-21 00:00:00 2022-09-21 09:51:48 [facility] Encounter for other general counseling or advice on contracept ion Encounter for other general counseling or advice on contracept ion Disease Resolve d 5-07 00:00: 00 2022-09-21 00:00:00 2022-09-21 10:03:29 [facility] Class 1 obesity due to excess calories with serious comorbidit y and body mass index (BMI) of 34.0 to 34.9 in adult Class 1 obesity due to excess calories with serious comorbidit y and body mass index (BMI) of 34.0 to 34.9 in adult Disease Resolve d 3-24 00:00: 00 2022-09-21 00:00:00 2022-09-21 09:51:43 [facility] Absence of menstruati on Absence of menstruati on Disease Resolve d 3-24 00:00: 00 2022-09-21 00:00:00 2022-09-21 09:51:37 [facility] Breast tenderness in female Breast tenderness in female Disease Resolve d 3-24 00:00: 00 2022-09-21 00:00:00 2022-09-21 09:51:38 [facility] BMI 34.0-34.9, adult BMI 34.0-34.9, adult Disease Resolve d 3-24 00:00: 00 2022-09-21 00:00:00 2022-09-21 10:03:19 [facility] Elevated blood pressure reading without diagnosis of hypertensi on Elevated blood pressure reading without diagnosis of hypertensi on Disease Resolve d 2-21 00:00: 00 2022-09-21 00:00:00 2022-09-21 10:03:05 [facility] Nexplanon removal Nexplanon removal Disease Resolve d 1-09 00:00: 00 2022-09-21 00:00:00 2022-09-21 09:51:52 [facility] HPV vaccine counseling HPV vaccine counseling Disease Resolve d 2018-08 0-16 00:00: 00 2022-09-21 00:00:00 2022-09-21 10:53:11 [facility] Lump or mass in breast Lump or mass in breast Disease Resolve d 11-22 00:00: 00 2022-09-21 00:00:00 2022-09-21 09:51:40 [facility] Nexplanon insertion Nexplanon insertion Disease Resolve d 11-22 00:00: 00 2019-08-20 00:00:00 2022-02-25 00:35:32 [facility] Allergies, Adverse Reactions, Alerts Allergy Name Allergy Type Status Severity Reaction(s) Onset Date Inactive Date Treating Clinician Comments Source NO KNOWN ALLERGIE S Drug Class Active [facility] Social History Social Habit Start Date Stop Date Quantity Comments Source ASSERTION 2025-01-10 00:00:00 Not [facility] Alcoholic beverage intake 2025-04-25 00:00:00 2025-04-25 00:00:00 Ex-drinker (finding) [facility] History of Social function 2025-01-06 00:00:00 2025-01-06 00:00:00 [facility] Alcohol intake 2023-12-10 00:00:00 2023-12-10 00:00:00 Current drinker of alcohol (finding) [facility] Exposure to SARS-CoV-2 (event) 2022-12-24 00:00:00 2023-01-03 09:29:00 Not sure [facility] History SDOH Alcohol Frequency 2023-01-01 00:00:00 2023-01-01 00:00:00 1 [facility] History SDOH Alcohol Std Drinks 2023-01-01 00:00:00 2023-01-01 00:00:00 0 [facility] History SDOH Alcohol Binge 2023-01-01 00:00:00 2023-01-01 00:00:00 1 [facility] History SDOH Social Connections Phone 2023-01-01 00:00:00 2023-01-01 00:00:00 4 [facility] History SDOH Social Connections Get Together 2023-01-01 00:00:00 2023-01-01 00:00:00 2 [facility] History SDOH Social Connections Islam 2023-01-01 00:00:00 2023-01-01 00:00:00 3 [facility] History SDOH Social Connections Membership 2023-01-01 00:00:00 2023-01-01 00:00:00 2 [facility] History SDOH Social Connections Meetings 2023-01-01 00:00:00 2023-01-01 00:00:00 1 [facility] History SDOH Social Connections Living 2023-01-01 00:00:00 2023-01-01 00:00:00 7 [facility] History SDOH Physical Activity DPW 2023-01-01 00:00:00 2023-01-01 00:00:00 1 [facility] History SDOH Physical Activity MPS 2023-01-01 00:00:00 2023-01-01 00:00:00 3 [facility] History SDOH Stress 2023-01-01 00:00:00 2023-01-01 00:00:00 5 [facility] History SDOH Financial 2023-01-01 00:00:00 2023-01-01 00:00:00 4 [facility] History SDOH Food Worry 2023-01-01 00:00:00 2023-01-01 00:00:00 1 [facility] History SDOH Food Scarcity 2023-01-01 00:00:00 2023-01-01 00:00:00 2 [facility] History SDOH Transport Med 2023-01-01 00:00:00 2023-01-01 00:00:00 2 [facility] History SDOH Transport Non-Med 2023-01-01 00:00:00 2023-01-01 00:00:00 2 [facility] History SDOH Housing Unable to Pay 2023-01-01 00:00:00 2023-01-01 00:00:00 2 [facility] History SDOH Housing Places Lived 2023-01-01 00:00:00 2023-01-01 00:00:00 1 [facility] History SDOH Housing Homeless Last Year 2023-01-01 00:00:00 2023-01-01 00:00:00 2 [facility] Tobacco use and exposure 2022-12-27 00:00:00 2022-12-27 00:00:00 Smokeless tobacco non-user [facility] Alcohol Comment 2021-11-02 00:00:00 2021-11-02 00:00:00 social [facility] Sex assigned at 2001 00:00:00 2000 00:00:00 [facility] Smoking Status Start Date Stop Date Source Never smoked tobacco [facility] Medications Ordered Medication Name Filled Medication Name Start Date Stop Date Current Medication? Ordering Clinician Indication Dosage Frequency Signature (SIG) Comments Components Source ibuprofen (IBU) tablet 600 mg 04-26 01:30: 00 04-26 01:56 :00 No 600mg 600 mg, Oral, ONCE, 1 dose, On 04/25/25 at 2030, PABLO [facility] gabapentin 100 mg capsule 04-11 00:00: 00 Yes [id number] 100mg Take 1 capsule by mouth 3 times daily as needed for Pain (scale 7-10). [facility] fluconazole 150 mg tablet 04-10 00:00: 00 Yes [id number] Take one tablet by mouth now. Can repeat once after 3 days if symptoms persist. [facility] metroNIDAZO LE 500 mg tablet 04-10 00:00: 00 04-18 04:59 :00 Yes [id number] 500mg Take 1 tablet by mouth in the morning and 1 tablet in the evening. Do all this for 7 days. [facility] lidocaine 2% viscous (LIDOCAINE VISCOUS) 2 % solution 04-09 00:00: 00 Yes [id number] 15mL Take 15 mL by mouth every 4 hours as needed for Local anesthesia . Apply onto pad or directly to rash on vulva. [facility] valACYclovi r 1 gram tablet 04-09 00:00: 00 04-24 04:59 :00 Yes [id number] 1g Take 1 tablet by mouth in the morning and 1 tablet in the evening. Do all this for 14 days. [facility] Iron Fum & P-FA-Vit B & C No.9 (INTEGRA PLUS) 125 mg iron- 1 mg Cap 2024-0 8-12 00:00: 00 Yes [id number] 1{capsu le} Take 1 capsule by mouth in the morning. [facility] Prenat Vit Comb.10-Iro n-FA-DHA (VITAFOL-OB +DHA) 65-1-250 mg combo pack 0 8-12 00:00: 00 Yes [id number] 1{each} Take 1 Each by mouth in the morning. [facility] proMETHazin e 25 mg tablet 2024-0 8-12 00:00: 00 Yes [id number] 25mg Take 1 tablet by mouth every 4 hours as needed for Nausea and Vomiting (N/V). [facility] Iron Fum & P-FA-Vit B & C No.9 (INTEGRA PLUS) 125 mg iron- 1 mg Cap 2024- 6-24 00:00: 00 03-23 00:00 :00 No [id number] 1{capsu le} Take 1 capsule by mouth in the morning for 180 days. [facility] Prenat Vit Comb.10-Iro n-FA-DHA (VITAFOL-OB +DHA) 65-1-250 mg combo pack 6-23 00:00: 00 03-23 00:00 :00 No [id number] 1{each} Take 1 Each by mouth in the morning. [facility] levocetiriz ine 5 mg tablet 2024-0 5-13 00:00: 00 03-23 00:00 :00 No [id number] 27578 5mg Take 1 tablet by mouth every evening. [facility] amoxicillin 875 mg tablet 2024-0 5-13 00:00: 00 12-30 04:59 :00 No [id number] 64554 875mg Take 1 tablet by mouth in the morning and 1 tablet in the evening. Do all this for 7 days. [facility] predniSONE 20 mg tablet 2024-0 5-13 00:00: 00 12-28 04:59 :00 No [id number] 02255 40mg Take 2 tablets by mouth in the morning for 5 days. [facility] metroNIDAZO LE 500 mg tablet 12-08 00:00: 00 01-06 00:00 :00 No [id number] 500mg Take 1 tablet by mouth in the morning and 1 tablet in the evening. [facility] fluconazole 150 mg tablet 12-08 00:00: 00 12-09 04:59 :00 No [id number] 150mg Take 1 tablet by mouth once now for 1 dose. [facility] nystatin 100,000 unit/gram cream nystatin 100,000 unit/gram cream 2023-08 0-19 00:00: 00 12-07 00:00 :00 No [id number] Apply to area(s) 2 (two) times daily. [facility] [id number] fum-folic () 27 mg iron- 1 mg folic tablet 2023-08 0- 00:00: 00 12-07 00:00 :00 No [id number] 1{tbl} Take 1 tablet by mouth in the morning. [facility] docusate 100 mg capsule docusate 100 mg capsule 2023-08 0 00:00: 00 12-07 00:00 :00 No [id number] 200mg Take 2 capsules by mouth once daily as needed for Constipati on. [facility] ferrous sulfate 325 mg (65 mg iron) tablet ferrous sulfate 325 mg (65 mg iron) tablet 2023-08 0-09 00:00: 00 12-07 00:00 :00 No [id number] 325mg Take 1 tablet by mouth in the morning. [facility] ibuprofen 800 mg tablet ibuprofen 800 mg tablet 2023-08 0-09 00:00: 00 12-07 00:00 :00 No [id number] 800mg Take 1 tablet by mouth every 8 (eight) hours as needed (pain). Take with food or milk. [facility] acetaminoph en 500 mg tablet acetaminoph en 500 mg tablet 2023-08 0-09 00:00: 00 12-07 00:00 :00 No [id number] 1000mg Take 2 tablets by mouth every 8 (eight) hours as needed for Pain. [facility] norethindro ne 0.35 mg tablet norethindro ne 0.35 mg tablet 2023-08 0 00:00: 00 12-07 00:00 :00 No [id number] .35mg Take 1 tablet by mouth in the morning. [facility] ibuprofen (IBU) tablet 600 mg 2023-08 11:00: 00 Yes 600mg 600 mg, Oral, Q6H, First dose on Sat05/18/24 at 0600, Until Discontinu ed, Routine [facility] rho(D) immune globulin (RHOPHYLAC) injection 300 mcg 2023-08 10:44: 27 Yes 300ug [facility] acetaminoph en (TYLENOL) tablet 650 mg 2023-08 10:44: 23 Yes 650mg 650 mg, Oral, Q6HPRN, Starting on Sat05/18/24 at 0544, Until Discontinu ed, Routine, Pain (scale 1-3) [facility] diphenhydrA MINE (BENADRYL) tablet 25 mg 2023-08 0 10:44: 23 Yes 25mg [facility] ondansetron (ZOFRAN (PF)) injection 4 mg 2023-08 0 10:44: 23 Yes 4mg [facility] simethicone (GAS RELIEF (SIMETHICON E)) chewable tablet 160 mg 2023-08 0 10:44: 23 Yes 160mg 160 mg, Oral, PC+HSPRN, Starting on Sat05/18/24 at 0544, Until Discontinu ed, Routine, Gas [facility] docusate (COLACE) capsule 200 mg 2023-08 0 10:44: 23 Yes 200mg [facility] magnesium hydroxide (MILK OF MAGNESIA) 400 mg/5 mL suspension 30 mL 2023-08 0 10:44: 23 Yes 30mL 30 mL, Oral, QDAILYPRN, Starting on Sat05/18/24 at 0544, Until Discontinu ed, Routine, Constipati on [facility] benzocaine- menthol (DERMOPLAST ) 20-0.5 % topical spray 2023-08 10:44: 23 Yes [facility] ibuprofen (IBU) tablet 600 mg 2023-08 08:17: 50 Yes 600mg 600 mg, Oral, Q6HPRN, Starting on Sat05/18/24 at 0317, Until Discontinu ed, Routine, Pain (scale 1-3) [facility] oxytocin (PITOCIN) 30 units in NS 500 mL IV infusion 2023-08 08:17: 38 Yes 300mL/h 300 mL/hr, IV Infusion, SEE-INSTRU CTIONS, Starting on Sat05/18/24 at 0317, Start at 300 mL/hr for 1 hr then 150 mL/hr for 1 hr. For post delivery uterotonic . [facility] amnioinfusi on IV infusion via GRAVITY 0.9 NaCL 1,000 mL 2023-08 03:30: 00 05-18 03:50 :00 No 1000mL at 750 mL/hr, Intrauteri ne, ONCE, 1 dose, On 05/17/24 at 2230, PABLO, Infuse via gravity 750 ml over 1 hour. Once 750 mL has been infused, the infusion may be discontinu ed or decreased to 100 mL/hr until the liter is complete. [facility] if uterine resting tone exceeds 25 mmHg at any time during the amnioinfus ion. Obstetrics ([place]) Aminoinfus ion Orders [facility] acetaminoph en (TYLENOL) tablet 1,000 mg 2023-08 22:15: 00 05-17 21:08 :00 No 1000mg 1,000 mg, Oral, ONCE, 1 dose, On 05/17/24 at 1715, Routine [facility] betamethaso ne acet,sod phos (CELESTONE SOLUSPAN) 6 mg/mL injection 12 mg 2023-08 11:00: 00 05-17 10:51 :00 No 12mg 12 mg, Intramuscu lar, ONCE, 1 dose, On 05/17/24 at 0600, Routine [facility] oxytocin (PITOCIN) 30 units in NS 500 mL IV infusion 2023-08 09:00: 07 Yes 2mU/min at 2-40 mL/hr, IV Infusion, TITRATE, Starting on 05/17/24 at 0400, Until Discontinu ed, PABLO [facility] penicillin g potassium 5 Million Units in NaCl 0.9% (NS) 100 mL MINI-BAG 2023-08 0-06 08:15: 00 05-17 09:17 :00 No 510 5 Million Units, IV Piggyback, ONCE, 1 dose, On 05/17/24 at 0315, Administer over 60 Minutes, 100 mL, Reason for Anti-Infec tive: Documented Infection, Documented Infection Site: Pelvic, Duration of Therapy: Other (see Comments) [facility] ropivacaine 0.2 % (NAROPIN (PF)) epidural infusion 2023-08 0 06:36: 00 05-18 11:31 :07 No Epidural, CONTINUOUS PRN, Starting on [place] 05/17/24 at 0136, Until 05/18/24 at 0631, Routine, Intra-op [facility] lidocaine-e pinephrine (XYLOCAINE W/EPINEPHRI NE) 1.5 %-1:200,000 injection 2023-08 0 06:34: 00 05-18 11:31 :07 No Epidural, ONCE INTRA PROCEDURE, Starting on 05/17/24 at 0134, Until 05/18/24 at 0631, Routine, Intra-op [facility] morphine (2 mg/mL) injection 4 mg 2023-08 0 05:45: 00 05-17 05:03 :00 No 4mg 4 mg, Slow IV Push, ONCE, 1 dose, On 05/17/24 at 0045, Routine [facility] D5W-LR IV infusion 1,000 mL 2023-08 0 22:45: 00 Yes 1000mL at 75 mL/hr, IV Infusion, CONTINUOUS , Starting on 05/16/24 at 1745, Until Discontinu ed, PABLO [facility] calcium gluconate 100 mg/mL (10%) injection 1,000 mg 2023-08 005 22:40: 51 Yes 1000mg 1,000 mg, Slow IV Push, PRN - SEE INSTRUCTIO NS, Starting on 05/16/24 at 1740, Until Discontinu ed, Routine, magnesium toxicity [facility] morphine (2 mg/mL) injection 4 mg 2023-08 21:30: 00 05-16 20:41 :00 No 4mg 4 mg, Slow IV Push, ONCE, 1 dose, On 05/16/24 at 1630, Routine [facility] sodium citrate-cit lis acid (BICITRA) 500-334 mg/5 mL solution 30 mL 2023-08 16:38: 30 05-17 06:12 :00 No 30mL 30 mL, Oral, PRE-PROCED URE ONCE, 1 dose, Starting on 05/16/24 at 1138, Until 05/17/24 at 0112, Routine, Surgery/Pr ocedure [facility] sodium citrate-cit lis acid (BICITRA) 500-334 mg/5 mL solution 30 mL 2023-08 16:36: 53 Yes 30mL 30 mL, Oral, PRE-PROCED URE ONCE, 1 dose, Starting on 05/16/24 at 1136, Until Discontinu ed, Routine, Surgery/Pr ocedure [facility] lidocaine 1% (XYLOCAINE) 10 mg/mL (1 %) injection 50 mL 2023-08 16:36: 53 Yes 50mL 50 mL, Infiltrati on, PRN - SEE INSTRUCTIO NS, Starting on 05/16/24 at 1136, Until Discontinu ed, Routine, Local anesthesia , For laceration repair only as a local anesthetic as indicated. [facility] lidocaine 1% (PF) (XYLOCAINE) injection 0.3 mL 2023-08 16:36: 53 Yes .3mL 0.3 mL, Infiltrati on, PRN - SEE INSTRUCTIO NS, Starting on 05/16/24 at 1136, Until Discontinu ed, Routine, Local anesthesia , For IV line placement only as a local anesthetic . [facility] lactated ringers IV infusion 500 mL 2023-08 16:36: 53 Yes 500mL at 999 mL/hr, 500 mL, IV Infusion, PRN - SEE INSTRUCTIO NS, Starting on 05/16/24 at 1136, Until Discontinu ed, Routine [facility] D5W-LR IV infusion 1,000 mL 2023-08 16:36: 53 Yes 1000mL at 1-125 mL/hr, IV Infusion, TITRATE, Starting on 05/16/24 at 1136, Until Discontinu ed, Routine [facility] lactated ringers IV infusion 1,000 mL 2023-08 12:45: 00 Yes 1000mL at 50 mL/hr, 1,000 mL, IV Infusion, CONTINUOUS , Starting on 05/16/24 at 0745, Until Discontinu ed, Routine [facility] magnesium sulfate in water for injection 20 gram/500 mL (4 %) IV infusion 2023-08 11:30: 00 Yes 2g/h 2 g/hr (50 mL/hr), IV Infusion, CONTINUOUS , Starting on 05/16/24 at 0630, Until Discontinu ed, PABLO [facility] betamethaso ne acet,sod phos (CELESTONE SOLUSPAN) 6 mg/mL injection 12 mg 2023-08 11:30: 00 05-18 11:29 :00 No 12mg 12 mg, Intramuscu lar, Q24H, 2 doses, First dose on 05/16/24 at 0630, Last dose on 05/17/24 at 0630, Routine [facility] metoclopram carleen HCl (REGLAN) injection 10 mg 2023-08 11:00: 00 05-16 11:26 :00 No 10mg 10 mg, Slow IV Push, ONCE, 1 dose, On 05/16/24 at 0600, Routine [facility] diphenhydrA MINE (BENADRYL) injection 25 mg 2023-08 11:00: 00 05-16 11:24 :00 No 25mg 25 mg, Intravenou s, ONCE, 1 dose, On 05/16/24 at 0600, Routine [facility] butalbital- acetaminoph en-caff (ESGIC) 50-325-40 mg tablet 1 tablet 2023-08 0-05 07:33: 00 05-16 07:37 :00 No 1{tbl} 1 tablet, Oral, ONCE, 1 dose, On Sat05/16/24 at 0245, Routine [facility] acetaminoph en (TYLENOL) tablet 1,000 mg 2023-08 0 07:00: 00 05-12 06:17 :00 No 1000mg 1,000 mg, Oral, ONCE, 1 dose, On Sat05/12/24 at 0200, Routine [facility] omeprazole 40 mg capsule 05-11 00:00: 00 12-07 00:00 :00 No [id number] 40mg Take 1 capsule by mouth in the morning. [facility] omeprazole 40 mg capsule 02-13 00:00: 00 05-11 00:00 :00 No [id number] 40mg Take 1 capsule by mouth in the morning. [facility] acetaminoph en (TYLENOL) tablet 1,000 mg 02-12 07:30: 00 02-12 06:52 :00 No 1000mg 1,000 mg, Oral, ONCE, 1 dose, On Sat02/13/24 at 0230, Routine [facility] lactated ringers IV infusion 1,000 mL 02-12 07:15: 00 02-12 06:57 :08 No 1000mL at 999 mL/hr, 1,000 mL, Intravenou s, ONCE, 1 dose, On Sat02/13/24 at 0215, Routine [facility] metroNIDAZO LE (FLAGYL) tablet 500 mg 02-11 04:58: 18 02-11 05:37 :00 No 500mg 500 mg, Oral, O.R. HOLDING ONCE, 1 dose, Starting on Sat02/11/24 at 2358, Until Sat02/12/24 at 0037, Routine, Surgery/Pr ocedure, Reason for Anti-Infec tive: Documented Infection, Documented Infection Site: Pelvic, Duration of Therapy: Once (ED) [facility] metroNIDAZO LE (FLAGYL) 500 mg tablet 7-03 00:00: 00 12-07 00:00 :00 No [id number] 500mg Take 1 tablet by mouth every 12 (twelve) hours. [facility] venlafaxine XR 37.5 mg 24 hr capsule 6-05 00:00: 00 12-07 00:00 :00 No [id number] 37.5mg Take 1 capsule by mouth daily with breakfast. [facility] magnesium oxide 400 mg (241.3 mg magnesium) tablet 605 00:00: 00 12-07 00:00 :00 No [id number] 400mg Take 1 tablet by mouth in the morning. [facility] hydrOXYzine 10 mg tablet 12-31 00:00: 00 01-24 04:59 :00 No [id number] 109 10mg Take 1 tablet by mouth every 6 (six) hours for 90 doses. [facility] proMETHazin e 25 mg tablet 11-13 00:00: 00 12-07 00:00 :00 No [id number] 25mg Take 1 tablet by mouth every 6 (six) hours as needed for Nausea and Vomiting (N/V). [facility] PNV 67-iron ps-folate no.1-dha (VITAFOL ULTRA) 29 mg iron- 1 mg-200 mg Cap 11-13 00:00: 00 12-07 00:00 :00 No [id number] 1{each} Take 1 Each by mouth in the morning. [facility] KCL (KLOR-CON M20) tablet 20 mEq 11-11 04:45: 00 11-11 04:46 :00 No 20meq 20 mEq, Oral, ONCE, 1 dose, On Sat11/11/23 at 2345, PABLO [facility] NaCl 0.9% (NS) IV infusion 1,000 mL 11-11 04:15: 00 Yes 1000mL at 999 mL/hr, Intravenou s, CONTINUOUS , Starting on Sat11/11/23 at 2315, Until Discontinu ed, Routine [facility] ondansetron (ZOFRAN (PF)) injection 4 mg 11-11 03:15: 00 11-11 03:20 :00 No 4mg 4 mg, Slow IV Push, ONCE, 1 dose, On Sat11/11/23 at 2215, PABLO [facility] doxylamine- pyridoxine, vit B6, (DICLEGIS) 10-10 mg per tablet 11-10 00:00: 00 12-07 00:00 :00 No [id number] 2{tbl} Take 2 tablets by mouth at bedtime as needed for Nausea and Vomiting (N/V). [facility] ondansetron 4 mg tablet - 00:00: 00 12-07 00:00 :00 No [id number] 4mg Take 1 tablet by mouth every 8 (eight) hours as needed for Nausea and Vomiting (N/V). [facility] omeprazole 40 mg capsule 04-18 00:00: 00 02-13 00:00 :00 No [id number] 40mg Take 1 capsule by mouth in the morning. [facility] ondansetron 8 mg tablet 04-04 00:00: 00 12-07 00:00 :00 No [id number] 8mg Take 1 tablet by mouth every 8 (eight) hours as needed for Nausea and Vomiting (N/V). [facility] omeprazole 40 mg capsule - 00:00: 00 04-18 00:00 :00 No [id number] 40mg Take 1 capsule by mouth in the morning. [facility] VENLAFAXINE XR 37.5 mg 24 hr capsule 03-13 00:00: 00 01-14 00:00 :00 No [id number] 37.5mg TAKE 1 CAPSULE BY MOUTH DAILY WITH BREAKFAST. [facility] venlafaxine XR 37.5 mg 24 hr capsule -06 00:00: 00 03-13 00:00 :00 No [id number] 37.5mg Take 1 capsule by mouth daily with breakfast. [facility] SERTraline 25 mg tablet 01-03 00:00: 00 02-14 00:00 :00 No [id number] 25mg Take 1 tablet by mouth in the morning. [facility] naproxen (NAPROSYN) 500 mg tablet 01-03 00:00: 00 01-14 04:59 :00 No [id number] 500mg Take 1 tablet by mouth in the morning and 1 tablet in the evening. Take with meals. Do all this for 10 days. [facility] iopamidol (ISOVUE 370-500 mL) injection 100 mL 12-28 03:00: 00 12-28 03:00 :00 No [id number] 100mL 100 mL, Intravenou s, ONCE, 1 dose, On Sat12/27/22 at 2200, Routine [facility] norelgestro min-ethinyl estradiol (XULANE) 150-35 mcg/24 hr patch 5-11 00:00: 00 01-03 00:00 :00 No [id number] 1{patch } Apply 1 Patch to skin weekly. [facility] doxycycline hyclate 100 mg capsule 2-13 00:00: 00 10-02 05:59 :00 No [id number] 100mg Take 1 capsule by mouth every 12 (twelve) hours for 7 days. [facility] norelgestro min-ethinyl estradiol 150-35 mcg/24 hr patch 2-10 00:00: 00 04-01 00:00 :00 No [id number] 1{patch } Apply 1 Patch to skin weekly. [facility] norgestimat e-ethinyl estradioL 0.18/0.215/ 0.25 mg-25 mcg tablet -07 00:00: 00 09-21 00:00 :00 No [id number] 1{tbl} Take 1 tablet by mouth daily. [facility] norgestimat e-ethinyl estradioL 0.18/0.215/ 0.25 mg-25 mcg tablet 11-16 00:00: 00 02-15 00:00 :00 No [id number] 1{tbl} Take 1 tablet by mouth daily. [facility] albuterol 90 mcg/actuati on inhaler 10-16 00:00: 00 01-03 00:00 :00 No [id number] 6{puff} Inhale 6 Puffs every 4 (four) hours as needed for Wheezing or Shortness of Breath. [facility] benzonatate 100 mg capsule 10-16 00:00: 00 09-21 00:00 :00 No [id number] 100mg Take 1 capsule by mouth 3 (three) times daily as needed for Cough. [facility] Immunizations Ordered Immunization Name Filled Immunization Name Date Status Comments Source [facility] 2024-12-07 00:00:00 Completed [facility] TDAP 2024-05-05 00:00:00 Completed [facility] HPV9 2024-05-05 00:00:00 Completed [facility] Meningococcal Vaccine 2024-05-05 00:00:00 Completed [facility] SARS-COV-2 COVID-19 PFIZER VACCINE 2024-05-05 00:00:00 Completed [facility] Influenza Virus Vaccine Quad .5 mL IM 6+ MO (FLUZONE/FLULAVAL/FL UARIX) 2024-05-05 00:00:00 Completed [facility] TDAP (ADACEL) VACCINE 2024-04-24 01:43:00 Completed [facility] HPV9 2024-04-24 01:43:00 Completed [facility] SARS-COV-2 COVID-19 PFIZER VACCINE 2024-04-24 01:43:00 Completed [facility] TDAP (ADACEL) VACCINE 2024-01-28 00:00:00 Completed [facility] HPV9 2024-01-28 00:00:00 Completed [facility] Meningococcal Vaccine 2024-01-28 00:00:00 Completed [facility] SARS-COV-2 COVID-19 PFIZER VACCINE 2024-01-28 00:00:00 Completed [facility] Influenza Virus Vaccine Quad .5 mL IM 6+ MO (FLUZONE/FLULAVAL/FL UARIX) 2024-01-28 00:00:00 Completed [facility] TDAP (ADACEL) VACCINE 2024-01-27 10:30:00 Completed [facility] HPV9 2024-01-27 10:30:00 Completed [facility] Meningococcal Vaccine 2024-01-27 10:30:00 Completed [facility] SARS-COV-2 COVID-19 PFIZER VACCINE 2024-01-27 10:30:00 Completed [facility] Influenza Virus Vaccine Quad .5 mL IM 6+ MO (FLUZONE/FLULAVAL/FL UARIX) 2024-01-27 10:30:00 Completed [facility] TDAP (ADACEL) VACCINE 2024-01-24 23:58:00 Completed [facility] HPV9 2024-01-24 23:58:00 Completed [facility] Meningococcal Vaccine 2024-01-24 23:58:00 Completed [facility] SARS-COV-2 COVID-19 PFIZER VACCINE 2024-01-24 23:58:00 Completed [facility] Influenza Virus Vaccine Quad .5 mL IM 6+ MO (FLUZONE/FLULAVAL/FL UARIX) 2024-01-24 23:58:00 Completed [facility] TDAP (ADACEL) VACCINE 2024-01-15 10:00:00 Completed [facility] HPV9 2024-01-15 10:00:00 Completed [facility] Meningococcal Vaccine 2024-01-15 10:00:00 Completed [facility] SARS-COV-2 COVID-19 PFIZER VACCINE 2024-01-15 10:00:00 Completed [facility] Influenza Virus Vaccine Quad .5 mL IM 6+ MO (FLUZONE/FLULAVAL/FL UARIX) 2024-01-15 10:00:00 Completed [facility] Meningococcal Vaccine 2024-01-01 10:15:00 Completed [facility] Influenza Virus Vaccine Quad .5 mL IM 6+ MO (FLUZONE/FLULAVAL/FL UARIX) 2024-01-01 10:15:00 Completed [facility] TDAP (ADACEL) VACCINE 2024-01-01 10:15:00 Completed [facility] HPV9 2024-01-01 10:15:00 Completed [facility] SARS-COV-2 COVID-19 PFIZER VACCINE 2024-01-01 10:15:00 Completed [facility] TDAP (ADACEL) VACCINE 2023-12-31 00:00:00 Completed [facility] HPV9 2023-12-31 00:00:00 Completed [facility] Meningococcal Vaccine 2023-12-31 00:00:00 Completed [facility] SARS-COV-2 COVID-19 PFIZER VACCINE 2023-12-31 00:00:00 Completed [facility] Influenza Virus Vaccine Quad .5 mL IM 6+ MO (FLUZONE/FLULAVAL/FL UARIX) 2023-12-31 00:00:00 Completed [facility] TDAP (ADACEL) VACCINE 2023-12-31 00:00:00 Completed [facility] HPV9 2023-12-31 00:00:00 Completed [facility] Meningococcal Vaccine 2023-12-31 00:00:00 Completed [facility] SARS-COV-2 COVID-19 PFIZER VACCINE 2023-12-31 00:00:00 Completed [facility] Influenza Virus Vaccine Quad .5 mL IM 6+ MO (FLUZONE/FLULAVAL/FL UARIX) 2023-12-31 00:00:00 Completed [facility] TDAP (ADACEL) VACCINE 2023-12-30 08:15:00 Completed [facility] HPV9 2023-12-30 08:15:00 Completed [facility] Meningococcal Vaccine 2023-12-30 08:15:00 Completed [facility] SARS-COV-2 COVID-19 PFIZER VACCINE 2023-12-30 08:15:00 Completed [facility] Influenza Virus Vaccine Quad .5 mL IM 6+ MO (FLUZONE/FLULAVAL/FL UARIX) 2023-12-30 08:15:00 Completed [facility] TDAP (ADACEL) VACCINE 2023-12-25 00:00:00 Completed [facility] HPV9 2023-12-25 00:00:00 Completed [facility] Meningococcal Vaccine 2023-12-25 00:00:00 Completed [facility] SARS-COV-2 COVID-19 PFIZER VACCINE 2023-12-25 00:00:00 Completed [facility] Influenza Virus Vaccine Quad .5 mL IM 6+ MO (FLUZONE/FLULAVAL/FL UARIX) 2023-12-25 00:00:00 Completed [facility] TDAP (ADACEL) VACCINE 2023-12-10 13:30:00 Completed [facility] HPV9 2023-12-10 13:30:00 Completed [facility] Meningococcal Vaccine 2023-12-10 13:30:00 Completed [facility] SARS-COV-2 COVID-19 PFIZER VACCINE 2023-12-10 13:30:00 Completed [facility] Influenza Virus Vaccine Quad .5 mL IM 6+ MO (FLUZONE/FLULAVAL/FL UARIX) 2023-12-10 13:30:00 Completed [facility] TDAP (ADACEL) VACCINE 2023-11-29 00:00:00 Completed [facility] HPV9 2023-11-29 00:00:00 Completed [facility] Meningococcal Vaccine 2023-11-29 00:00:00 Completed [facility] SARS-COV-2 COVID-19 PFIZER VACCINE 2023-11-29 00:00:00 Completed [facility] Influenza Virus Vaccine Quad .5 mL IM 6+ MO (FLUZONE/FLULAVAL/FL UARIX) 2023-11-29 00:00:00 Completed [facility] TDAP (ADACEL) VACCINE 2023-11-27 00:00:00 Completed [facility] HPV9 2023-11-27 00:00:00 Completed [facility] Meningococcal Vaccine 2023-11-27 00:00:00 Completed [facility] SARS-COV-2 COVID-19 PFIZER VACCINE 2023-11-27 00:00:00 Completed [facility] Influenza Virus Vaccine Quad .5 mL IM 6+ MO (FLUZONE/FLULAVAL/FL UARIX) 2023-11-27 00:00:00 Completed [facility] TDAP (ADACEL) VACCINE 2023-11-26 10:00:00 Completed [facility] HPV9 2023-11-26 10:00:00 Completed [facility] Meningococcal Vaccine 2023-11-26 10:00:00 Completed [facility] SARS-COV-2 COVID-19 PFIZER VACCINE 2023-11-26 10:00:00 Completed [facility] Influenza Virus Vaccine Quad .5 mL IM 6+ MO (FLUZONE/FLULAVAL/FL UARIX) 2023-11-26 10:00:00 Completed [facility] TDAP (ADACEL) VACCINE 2023-11-20 00:00:00 Completed [facility] HPV9 2023-11-20 00:00:00 Completed [facility] Meningococcal Vaccine 2023-11-20 00:00:00 Completed [facility] SARS-COV-2 COVID-19 PFIZER VACCINE 2023-11-20 00:00:00 Completed [facility] Influenza Virus Vaccine Quad .5 mL IM 6+ MO (FLUZONE/FLULAVAL/FL UARIX) 2023-11-20 00:00:00 Completed [facility] TDAP (ADACEL) VACCINE 2023-11-15 00:00:00 Completed [facility] HPV9 2023-11-15 00:00:00 Completed [facility] Meningococcal Vaccine 2023-11-15 00:00:00 Completed [facility] SARS-COV-2 COVID-19 PFIZER VACCINE 2023-11-15 00:00:00 Completed [facility] Influenza Virus Vaccine Quad .5 mL IM 6+ MO (FLUZONE/FLULAVAL/FL UARIX) 2023-11-15 00:00:00 Completed [facility] TDAP (ADACEL) VACCINE 2023-11-14 09:45:00 Completed [facility] HPV9 2023-11-14 09:45:00 Completed [facility] Meningococcal Vaccine 2023-11-14 09:45:00 Completed [facility] SARS-COV-2 COVID-19 PFIZER VACCINE 2023-11-14 09:45:00 Completed [facility] Influenza Virus Vaccine Quad .5 mL IM 6+ MO (FLUZONE/FLULAVAL/FL UARIX) 2023-11-14 09:45:00 Completed [facility] TDAP (ADACEL) VACCINE 2023-11-11 21:41:00 Completed [facility] HPV9 2023-11-11 21:41:00 Completed [facility] Meningococcal Vaccine 2023-11-11 21:41:00 Completed [facility] SARS-COV-2 COVID-19 PFIZER VACCINE 2023-11-11 21:41:00 Completed [facility] Influenza Virus Vaccine Quad .5 mL IM 6+ MO (FLUZONE/FLULAVAL/FL UARIX) 2023-11-11 21:41:00 Completed [facility] TDAP (ADACEL) VACCINE 2023-11-01 00:00:00 Completed [facility] HPV9 2023-11-01 00:00:00 Completed [facility] Meningococcal Vaccine 2023-11-01 00:00:00 Completed [facility] SARS-COV-2 COVID-19 PFIZER VACCINE 2023-11-01 00:00:00 Completed [facility] Influenza Virus Vaccine Quad .5 mL IM 6+ MO (FLUZONE/FLULAVAL/FL UARIX) 2023-11-01 00:00:00 Completed [facility] TDAP (ADACEL) VACCINE 2023-10-24 11:40:00 Completed [facility] HPV9 2023-10-24 11:40:00 Completed [facility] Meningococcal Vaccine 2023-10-24 11:40:00 Completed [facility] SARS-COV-2 COVID-19 PFIZER VACCINE 2023-10-24 11:40:00 Completed [facility] Influenza Virus Vaccine Quad .5 mL IM 6+ MO (FLUZONE/FLULAVAL/FL UARIX) 2023-10-24 11:40:00 Completed [facility] TDAP (ADACEL) VACCINE 2023-10-24 00:00:00 Completed [facility] HPV9 2023-10-24 00:00:00 Completed [facility] Meningococcal Vaccine 2023-10-24 00:00:00 Completed [facility] SARS-COV-2 COVID-19 PFIZER VACCINE 2023-10-24 00:00:00 Completed [facility] Influenza Virus Vaccine Quad .5 mL IM 6+ MO (FLUZONE/FLULAVAL/FL UARIX) 2023-10-24 00:00:00 Completed [facility] TDAP (ADACEL) VACCINE 2023-08-23 00:00:00 Completed [facility] HPV9 2023-08-23 00:00:00 Completed [facility] Meningococcal Vaccine 2023-08-23 00:00:00 Completed [facility] SARS-COV-2 COVID-19 PFIZER VACCINE 2023-08-23 00:00:00 Completed [facility] Influenza Virus Vaccine Quad .5 mL IM 6+ MO (FLUZONE/FLULAVAL/FL UARIX) 2023-08-23 00:00:00 Completed [facility] TDAP (ADACEL) VACCINE 2023-08-20 14:30:00 Completed [facility] HPV9 2023-08-20 14:30:00 Completed [facility] Meningococcal Vaccine 2023-08-20 14:30:00 Completed [facility] SARS-COV-2 COVID-19 PFIZER VACCINE 2023-08-20 14:30:00 Completed [facility] Influenza Virus Vaccine Quad .5 mL IM 6+ MO (FLUZONE/FLULAVAL/FL UARIX) 2023-08-20 14:30:00 Completed [facility] TDAP (ADACEL) VACCINE 2023-08-13 00:00:00 Completed [facility] HPV9 2023-08-13 00:00:00 Completed [facility] Meningococcal Vaccine 2023-08-13 00:00:00 Completed [facility] SARS-COV-2 COVID-19 PFIZER VACCINE 2023-08-13 00:00:00 Completed [facility] Influenza Virus Vaccine Quad .5 mL IM 6+ MO (FLUZONE/FLULAVAL/FL UARIX) 2023-08-13 00:00:00 Completed [facility] Influenza Virus Vaccine Quad .5 mL IM 6+ MO 2021-11-02 00:00:00 Completed [facility] Influenza Virus Vaccine Quad .5 mL IM 6+ MO 2021-11-02 00:00:00 Completed [facility] Influenza Virus Vaccine Quad .5 mL IM 6+ MO 2021-11-02 00:00:00 Completed [facility] Influenza Virus Vaccine Quad .5 mL IM 6+ MO 2021-11-02 00:00:00 Completed [facility] Influenza Virus Vaccine Quad .5 mL IM 6+ MO 2021-11-02 00:00:00 Completed [facility] Influenza Virus Vaccine Quad .5 mL IM 6+ MO 2021-11-02 00:00:00 Completed [facility] Influenza Virus Vaccine Quad .5 mL IM 6+ MO 2021-11-02 00:00:00 Completed [facility] Influenza Virus Vaccine Quad .5 mL IM 6+ MO 2021-11-02 00:00:00 Completed [facility] Influenza Virus Vaccine Quad .5 mL IM 6+ MO 2021-11-02 00:00:00 Completed [facility] Influenza Virus Vaccine Quad .5 mL IM 6+ MO 2021-11-02 00:00:00 Completed [facility] Influenza Virus Vaccine Quad .5 mL IM 6+ MO 2021-11-02 00:00:00 Completed [facility] Influenza Virus Vaccine Quad .5 mL IM 6+ MO 2021-11-02 00:00:00 Completed [facility] Influenza Virus Vaccine Quad .5 mL IM 6+ MO 2021-11-02 00:00:00 Completed [facility] Influenza Virus Vaccine Quad .5 mL IM 6+ MO 2021-11-02 00:00:00 Completed [facility] Influenza Virus Vaccine Quad .5 mL IM 6+ MO 2021-11-02 00:00:00 Completed [facility] Influenza Virus Vaccine Quad .5 mL IM 6+ MO 2021-11-02 00:00:00 Completed [facility] Influenza Virus Vaccine Quad .5 mL IM 6+ MO 2021-11-02 00:00:00 Completed [facility] Influenza Virus Vaccine Quad .5 mL IM 6+ MO 2021-11-02 00:00:00 Completed [facility] Influenza Virus Vaccine Quad .5 mL IM 6+ MO 2021-11-02 00:00:00 Completed [facility] Influenza Virus Vaccine Quad .5 mL IM 6+ MO (FLUZONE/FLULAVAL/FL UARIX) 2021-11-02 00:00:00 Completed [facility] Influenza Virus Vaccine Quad .5 mL IM 6+ MO (FLUZONE/FLULAVAL/FL UARIX) 2021-11-02 00:00:00 Completed [facility] SARS-COV-2 COVID-19 PFIZER VACCINE 2021-03-27 00:00:00 Completed [facility] SARS-COV-2 COVID-19 PFIZER VACCINE 2021-03-27 00:00:00 Completed [facility] SARS-COV-2 COVID-19 PFIZER VACCINE 2021-03-27 00:00:00 Completed [facility] SARS-COV-2 COVID-19 PFIZER VACCINE 2021-03-27 00:00:00 Completed [facility] SARS-COV-2 COVID-19 PFIZER VACCINE 2021-03-27 00:00:00 Completed [facility] SARS-COV-2 COVID-19 PFIZER VACCINE 2021-03-27 00:00:00 Completed [facility] SARS-COV-2 COVID-19 PFIZER VACCINE 2021-03-27 00:00:00 Completed [facility] SARS-COV-2 COVID-19 PFIZER VACCINE 2021-03-27 00:00:00 Completed [facility] SARS-COV-2 COVID-19 PFIZER VACCINE 2021-03-27 00:00:00 Completed [facility] SARS-COV-2 COVID-19 PFIZER VACCINE 2021-03-27 00:00:00 Completed [facility] SARS-COV-2 COVID-19 PFIZER VACCINE 2021-03-27 00:00:00 Completed [facility] SARS-COV-2 COVID-19 PFIZER VACCINE 2021-03-27 00:00:00 Completed [facility] SARS-COV-2 COVID-19 PFIZER VACCINE 2021-03-27 00:00:00 Completed [facility] SARS-COV-2 COVID-19 PFIZER VACCINE 2021-03-27 00:00:00 Completed [facility] SARS-COV-2 COVID-19 PFIZER VACCINE 2021-03-27 00:00:00 Completed [facility] SARS-COV-2 COVID-19 PFIZER VACCINE 2021-03-27 00:00:00 Completed [facility] SARS-COV-2 COVID-19 PFIZER VACCINE 2021-03-27 00:00:00 Completed [facility] SARS-COV-2 COVID-19 PFIZER VACCINE 2021-03-27 00:00:00 Completed [facility] SARS-COV-2 COVID-19 PFIZER VACCINE 2021-03-27 00:00:00 Completed [facility] SARS-COV-2 COVID-19 PFIZER VACCINE 2021-03-27 00:00:00 Completed [facility] SARS-COV-2 COVID-19 PFIZER VACCINE 2021-03-27 00:00:00 Completed [facility] SARS-COV-2 COVID-19 PFIZER VACCINE 2021-03-06 00:00:00 Completed [facility] SARS-COV-2 COVID-19 PFIZER VACCINE 2021-03-06 00:00:00 Completed [facility] SARS-COV-2 COVID-19 PFIZER VACCINE 2021-03-06 00:00:00 Completed [facility] SARS-COV-2 COVID-19 PFIZER VACCINE 2021-03-06 00:00:00 Completed [facility] SARS-COV-2 COVID-19 PFIZER VACCINE 2021-03-06 00:00:00 Completed [facility] SARS-COV-2 COVID-19 PFIZER VACCINE 2021-03-06 00:00:00 Completed [facility] SARS-COV-2 COVID-19 PFIZER VACCINE 2021-03-06 00:00:00 Completed [facility] SARS-COV-2 COVID-19 PFIZER VACCINE 2021-03-06 00:00:00 Completed [facility] SARS-COV-2 COVID-19 PFIZER VACCINE 2021-03-06 00:00:00 Completed [facility] SARS-COV-2 COVID-19 PFIZER VACCINE 2021-03-06 00:00:00 Completed [facility] SARS-COV-2 COVID-19 PFIZER VACCINE 2021-03-06 00:00:00 Completed [facility] SARS-COV-2 COVID-19 PFIZER VACCINE 2021-03-06 00:00:00 Completed [facility] SARS-COV-2 COVID-19 PFIZER VACCINE 2021-03-06 00:00:00 Completed [facility] SARS-COV-2 COVID-19 PFIZER VACCINE 2021-03-06 00:00:00 Completed [facility] SARS-COV-2 COVID-19 PFIZER VACCINE 2021-03-06 00:00:00 Completed [facility] SARS-COV-2 COVID-19 PFIZER VACCINE 2021-03-06 00:00:00 Completed [facility] SARS-COV-2 COVID-19 PFIZER VACCINE 2021-03-06 00:00:00 Completed [facility] SARS-COV-2 COVID-19 PFIZER VACCINE 2021-03-06 00:00:00 Completed [facility] SARS-COV-2 COVID-19 PFIZER VACCINE 2021-03-06 00:00:00 Completed [facility] SARS-COV-2 COVID-19 PFIZER VACCINE 2021-03-06 00:00:00 Completed [facility] SARS-COV-2 COVID-19 PFIZER VACCINE 2021-03-06 00:00:00 Completed [facility] TDAP (ADACEL) VACCINE 2020-07-13 00:00:00 Completed [facility] HPV9 2020-07-13 00:00:00 Completed [facility] Meningococcal Vaccine 2020-07-13 00:00:00 Completed [facility] HPV9 2019-08-25 00:00:00 Completed [facility] HPV9 2019-08-25 00:00:00 Completed [facility] HPV9 2019-08-25 00:00:00 Completed [facility] HPV9 2019-08-25 00:00:00 Completed [facility] HPV9 2019-08-25 00:00:00 Completed [facility] HPV9 2019-08-25 00:00:00 Completed [facility] HPV9 2019-08-25 00:00:00 Completed [facility] HPV9 2019-08-25 00:00:00 Completed [facility] HPV9 2019-08-25 00:00:00 Completed [facility] HPV9 2019-08-25 00:00:00 Completed [facility] HPV9 2019-08-25 00:00:00 Completed [facility] HPV9 2019-08-25 00:00:00 Completed [facility] HPV9 2019-08-25 00:00:00 Completed [facility] HPV9 2019-08-25 00:00:00 Completed [facility] HPV9 2019-08-25 00:00:00 Completed [facility] HPV9 2019-08-25 00:00:00 Completed [facility] HPV9 2019-08-25 00:00:00 Completed [facility] HPV9 2019-08-25 00:00:00 Completed [facility] HPV9 2019-08-25 00:00:00 Completed [facility] HPV9 2019-08-25 00:00:00 Completed [facility] HPV9 2019-08-25 00:00:00 Completed [facility] HPV9 2019-05-27 00:00:00 Completed [facility] HPV9 2019-05-27 00:00:00 Completed [facility] HPV9 2019-05-27 00:00:00 Completed [facility] HPV9 2019-05-27 00:00:00 Completed [facility] HPV9 2019-05-27 00:00:00 Completed [facility] HPV9 2019-05-27 00:00:00 Completed [facility] HPV9 2019-05-27 00:00:00 Completed [facility] HPV9 2019-05-27 00:00:00 Completed [facility] HPV9 2019-05-27 00:00:00 Completed [facility] HPV9 2019-05-27 00:00:00 Completed [facility] HPV9 2019-05-27 00:00:00 Completed [facility] HPV9 2019-05-27 00:00:00 Completed [facility] HPV9 2019-05-27 00:00:00 Completed [facility] HPV9 2019-05-27 00:00:00 Completed [facility] HPV9 2019-05-27 00:00:00 Completed [facility] HPV9 2019-05-27 00:00:00 Completed [facility] HPV9 2019-05-27 00:00:00 Completed [facility] HPV9 2019-05-27 00:00:00 Completed [facility] HPV9 2019-05-27 00:00:00 Completed [facility] HPV9 2019-05-27 00:00:00 Completed [facility] HPV9 2019-05-27 00:00:00 Completed [facility] TDAP (ADACEL) VACCINE 2014-06-24 00:00:[address] [facility] Meningococcal Vaccine 2014-06-24 00:00:[address] [facility] TDAP (ADACEL) VACCINE 2014-06-24 00:00:00 Completed [facility] Meningococcal Vaccine 2014-06-24 00:00:00 Completed [facility] TDAP (ADACEL) VACCINE 2014-06-24 00:00:[address] [facility] Meningococcal Vaccine 2014-06-24 00:00:[address] [facility] TDAP (ADACEL) VACCINE 2014-06-24 00:00:[address] [facility] Meningococcal Vaccine 2014-06-24 00:00:[address] [facility] TDAP (ADACEL) VACCINE 2014-06-24 00:00:[address] [facility] Meningococcal Vaccine 2014-06-24 00:00:00 Completed [facility] TDAP (ADACEL) VACCINE 2014-06-24 00:00:[address] [facility] Meningococcal Vaccine 2014-06-24 00:00:00 Completed [facility] TDAP (ADACEL) VACCINE 2014-06-24 00:00:[address] [facility] Meningococcal Vaccine 2014-06-24 00:00:[address] [facility] TDAP (ADACEL) VACCINE 2014-06-24 00:00:[address] [facility] Meningococcal Vaccine 2014-06-24 00:00:[address] [facility] TDAP (ADACEL) VACCINE 2014-06-24 00:00:[address] [facility] Meningococcal Vaccine 2014-06-24 00:00:[address] [facility] TDAP (ADACEL) VACCINE 2014-06-24 00:00:[address] [facility] Meningococcal Vaccine 2014-06-24 00:00:[address] [facility] TDAP (ADACEL) VACCINE 2014-06-24 00:00:00 [facility]pleted [facility] Meningococcal Vaccine 2014-06-24 00:00:00 Completed [facility] TDAP (ADACEL) VACCINE 2014-06-24 00:00:[address] [facility] Meningococcal Vaccine 2014-06-24 00:00:[address] [facility] TDAP (ADACEL) VACCINE 2014-06-24 00:00:00 Completed [facility] Meningococcal Vaccine 2014-06-24 00:00:[address] [facility] TDAP (ADACEL) VACCINE 2014-06-24 00:00:[address] [facility] Meningococcal Vaccine 2014-06-24 00:00:[address] [facility] TDAP (ADACEL) VACCINE 2014-06-24 00:00:[address] [facility] Meningococcal Vaccine 2014-06-24 00:00:[address] [facility] TDAP (ADACEL) VACCINE 2014-06-24 00:00:[address] [facility] Meningococcal Vaccine 2014-06-24 00:00:[address] [facility] TDAP (ADACEL) VACCINE 2014-06-24 00:00:[address] [facility] Meningococcal Vaccine 2014-06-24 00:00:00 Completed [facility] TDAP (ADACEL) VACCINE 2014-06-24 00:00:[address] [facility] Meningococcal Vaccine 2014-06-24 00:00:[address] [facility] TDAP (ADACEL) VACCINE 2014-06-24 00:00:00 Completed [facility] Meningococcal Vaccine 2014-06-24 00:00:[address] [facility] TDAP (ADACEL) VACCINE 2014-06-24 00:00:00 [facility]pleted [facility] Meningococcal Vaccine 2014-06-24 00:00:[address] [facility] TDAP (ADACEL) VACCINE 2014-06-24 00:00:[address] [facility] Meningococcal Vaccine 2014-06-24 00:00:[address] [facility] TDAP (ADACEL) VACCINE 2014-06-24 00:00:00 Completed TDAP (ADACEL) VACCINE 2013-03-12 00:00:00 Completed [facility] TDAP (ADACEL) VACCINE 2013-03-12 00:00:00 Completed [facility] TDAP (ADACEL) VACCINE 2013-03-12 00:00:00 Completed [facility] TDAP (ADACEL) VACCINE 2013-03-12 00:00:00 Completed [facility] TDAP (ADACEL) VACCINE 2013-03-12 00:00:00 Completed [facility] TDAP (ADACEL) VACCINE 2013-03-12 00:00:00 Completed [facility] TDAP (ADACEL) VACCINE 2013-03-12 00:00:00 Completed [facility] TDAP (ADACEL) VACCINE 2013-03-12 00:00:00 Completed [facility] TDAP (ADACEL) VACCINE 2013-03-12 00:00:00 Completed [facility] TDAP (ADACEL) VACCINE 2013-03-12 00:00:00 Completed [facility] TDAP (ADACEL) VACCINE 2013-03-12 00:00:00 Completed [facility] TDAP (ADACEL) VACCINE 2013-03-12 00:00:00 Completed [facility] TDAP (ADACEL) VACCINE 2013-03-12 00:00:00 Completed [facility] TDAP (ADACEL) VACCINE 2013-03-12 00:00:00 Completed [facility] TDAP (ADACEL) VACCINE 2013-03-12 00:00:00 Completed [facility] TDAP (ADACEL) VACCINE 2013-03-12 00:00:00 Completed [facility] TDAP (ADACEL) VACCINE 2013-03-12 00:00:00 Completed [facility] TDAP (ADACEL) VACCINE 2013-03-12 00:00:00 Completed [facility] TDAP (ADACEL) VACCINE 2013-03-12 00:00:00 Completed [facility] TDAP (ADACEL) VACCINE 2013-03-12 00:00:00 Completed [facility] TDAP (ADACEL) VACCINE 2013-03-12 00:00:00 Completed [facility] Vital Signs Vital Name Observation Time Observation Value Comments S ource Systolic blood pressure 2025-04-26 03:30:00 96 mm[Hg] [facility] Diastolic blood pressure 2025-04-26 03:30:00 79 mm[Hg] [facility] Heart rate 2025-04-26 03:30:00 59 /min [facility] Body temperature 2025-04-26 03:30:00 36.89 [place] [facility] Respiratory rate 2025-04-26 03:30:00 16 /min [facility] Oxygen saturation in Arterial blood by Pulse oximetry 2025-04-26 03:30:00 98 /min [facility] Body height 2025-04-26 01:21:00 162.6 cm [facility] Body weight 2025-04-26 01:21:00 72.576 kg [facility] BMI 2025-04-26 01:21:00 27.46 kg/m2 [facility] Systolic blood pressure 2025-04-11 16:30:00 149 mm[Hg] [facility] Diastolic blood pressure 2025-04-11 16:30:00 102 mm[Hg] [facility] Heart rate 2025-04-11 16:30:00 108 /min [facility] Body temperature 2025-04-11 16:25:00 36.67 Bar[place] [facility] Respiratory rate 2025-04-11 16:25:00 16 /min [facility] Body height 2025-04-11 16:25:00 162.6 cm per pt [facility] Body weight 2025-04-11 16:25:00 73.993 kg [facility] BMI 2025-04-11 16:25:00 28.00 kg/m2 [facility] Oxygen saturation in Arterial blood by Pulse oximetry 2025-04-11 16:25:00 98 /min [facility] Systolic blood pressure 2025-04-09 22:15:00 128 mm[Hg] [facility] Diastolic blood pressure 2025-04-09 22:15:00 82 mm[Hg] [facility] Heart rate 2025-04-09 22:15:00 77 /min [facility] Body temperature 2025-04-09 22:15:00 36.89 [place] [facility] Respiratory rate 2025-04-09 22:15:00 20 /min [facility] Body height 2025-04-09 22:15:00 162.6 cm [facility] Body weight 2025-04-09 22:15:00 75.025 kg [facility] BMI 2025-04-09 22:15:00 28.39 kg/m2 [facility] Oxygen saturation in Arterial blood by Pulse oximetry 2025-04-09 22:15:00 100 /min [facility] Systolic blood pressure 2025-03-27 05:24:21 135 mm[Hg] [facility] Diastolic blood pressure 2025-03-27 05:24:21 77 mm[Hg] [facility] Heart rate 2025-03-27 05:24:21 75 /min [facility] Body temperature 2025-03-27 05:24:21 36.67 [place] [facility] Respiratory rate 2025-03-27 05:24:21 18 /min [facility] Oxygen saturation in Arterial blood by Pulse oximetry 2025-03-27 05:24:21 99 /min [facility] Body height 2025-03-27 02:29:00 162.6 cm [facility] Body weight 2025-03-27 02:29:00 73.437 kg [facility] BMI 2025-03-27 02:29:00 27.79 kg/m2 [facility] Systolic blood pressure 2025-03-23 13:45:00 130 mm[Hg] [facility] Diastolic blood pressure 2025-03-23 13:45:00 72 mm[Hg] [facility] Heart rate 2025-03-23 13:45:00 73 /min [facility] Body temperature 2025-03-23 13:45:00 36.44 [place] [facility] Respiratory rate 2025-03-23 13:45:00 18 /min [facility] Body height 2025-03-23 13:45:00 162.6 cm [facility] Body weight 2025-03-23 13:45:00 73.511 kg [facility] BMI 2025-03-23 13:45:00 27.82 kg/m2 [facility] Systolic blood pressure 2025-03-14 07:55:00 125 mm[Hg] [facility] Diastolic blood pressure 2025-03-14 07:55:00 61 mm[Hg] [facility] Heart rate 2025-03-14 07:55:00 58 /min [facility] Body temperature 2025-03-14 07:55:00 36.61 [place] [facility] Respiratory rate 2025-03-14 07:55:00 16 /min [facility] Oxygen saturation in Arterial blood by Pulse oximetry 2025-03-14 07:55:00 100 /min [facility] Body height 2025-03-14 02:17:00 162.6 cm [facility] Body weight 2025-03-14 02:17:00 76.567 kg [facility] BMI 2025-03-14 02:17:00 28.97 kg/m2 [facility] Systolic blood pressure 2025-02-04 15:51:00 145 mm[Hg] [facility] Diastolic blood pressure 2025-02-04 15:51:00 98 mm[Hg] [facility] Heart rate 2025-02-04 15:51:00 98 /min [facility] Body temperature 2025-02-04 15:51:00 37 [place] [facility] Respiratory rate 2025-02-04 15:51:00 18 /min [facility] Body height 2025-02-04 15:51:00 162.6 cm [facility] Body weight 2025-02-04 15:51:00 79.379 kg [facility] BMI 2025-02-04 15:51:00 30.04 kg/m2 [facility] Oxygen saturation in Arterial blood by Pulse oximetry 2025-02-04 15:51:00 99 /min [facility] Systolic blood pressure 2025-02-01 17:42:00 135 mm[Hg] [facility] Diastolic blood pressure 2025-02-01 17:42:00 73 mm[Hg] [facility] Heart rate 2025-02-01 17:42:00 83 /min [facility] Body temperature 2025-02-01 17:42:00 36 [place] [facility] Respiratory rate 2025-02-01 17:42:00 17 /min [facility] Body height 2025-02-01 17:42:00 162.6 cm [facility] Body weight 2025-02-01 17:42:00 79.465 kg [facility] BMI 2025-02-01 17:42:00 30.07 kg/m2 [facility] Systolic blood pressure 2025-01-28 20:00:00 140 mm[Hg] [facility] Diastolic blood pressure 2025-01-28 20:00:00 67 mm[Hg] [facility] Heart rate 2025-01-28 20:00:00 85 /min [facility] Respiratory rate 2025-01-28 20:00:00 20 /min [facility] Oxygen saturation in Arterial blood by Pulse oximetry 2025-01-28 20:00:00 99 /min [facility] Body temperature 2025-01-28 17:46:00 36.5 [place] [facility] Body height 2025-01-28 17:46:00 162.6 cm [facility] Body weight 2025-01-28 17:46:00 78.926 kg [facility] BMI 2025-01-28 17:46:00 29.87 kg/m2 [facility] Systolic blood pressure 2025-01-27 15:35:00 138 mm[Hg] manually [facility] Diastolic blood pressure 2025-01-27 15:35:00 80 mm[Hg] manually [facility] Heart rate 2025-01-27 15:25:00 71 /min [facility] Body temperature 2025-01-27 15:25:00 36.72 [place] [facility] Respiratory rate 2025-01-27 15:25:00 14 /min [facility] Body weight 2025-01-27 15:25:00 79.198 kg [facility] BMI 2025-01-27 15:25:00 29.97 kg/m2 [facility] Systolic blood pressure 2025-01-06 16:24:00 120 mm[Hg] [facility] Diastolic blood pressure 2025-01-06 16:24:00 82 mm[Hg] [facility] Heart rate 2025-01-06 16:20:00 78 /min [facility] Body temperature 2025-01-06 16:20:00 36.44 [place] [facility] Respiratory rate 2025-01-06 16:20:00 17 /min [facility] Body height 2025-01-06 16:20:00 162.6 cm [facility] Body weight 2025-01-06 16:20:00 79.55 kg [facility] BMI 2025-01-06 16:20:00 30.10 kg/m2 [facility] Systolic blood pressure 2024-12-22 18:55:00 136 mm[Hg] [facility] Diastolic blood pressure 2024-12-22 18:55:00 84 mm[Hg] [facility] Heart rate 2024-12-22 18:55:00 74 /min [facility] Body temperature 2024-12-22 18:55:00 36.72 [place] [facility] Respiratory rate 2024-12-22 18:55:00 20 /min [facility] Body height 2024-12-22 18:55:00 162.6 cm [facility] Body weight 2024-12-22 18:55:00 82.781 kg [facility] BMI 2024-12-22 18:55:00 31.33 kg/m2 [facility] Oxygen saturation in Arterial blood by Pulse oximetry 2024-12-22 18:55:00 99 /min [facility] Systolic blood pressure 2024-12-07 18:23:00 128 mm[Hg] [facility] Diastolic blood pressure 2024-12-07 18:23:00 80 mm[Hg] [facility] Heart rate 2024-12-07 18:21:00 101 /min [facility] Body temperature 2024-12-07 18:21:00 36.67 [place] [facility] Respiratory rate 2024-12-07 18:21:00 20 /min [facility] Body height 2024-12-07 18:21:00 162.6 cm [facility] Body weight 2024-12-07 18:21:00 83.054 kg [facility] BMI 2024-12-07 18:21:00 31.43 kg/m2 [facility] Systolic blood pressure 2024-07-02 16:28:00 131 mm[Hg] [facility] Diastolic blood pressure 2024-07-02 16:28:00 81 mm[Hg] [facility] Heart rate 2024-07-02 16:28:00 80 /min [facility] Body temperature 2024-07-02 16:28:00 36.22 [place] [facility] Respiratory rate 2024-07-02 16:28:00 18 /min [facility] Body height 2024-07-02 16:28:00 162.6 cm [facility] Body weight 2024-07-02 16:28:00 79.924 kg [facility] BMI 2024-07-02 16:28:00 30.24 kg/m2 [facility] Systolic blood pressure 2024-06-09 16:02:00 122 mm[Hg] [facility] Diastolic blood pressure 2024-06-09 16:02:00 76 mm[Hg] [facility] Heart rate 2024-06-09 16:02:00 68 /min [facility] Body temperature 2024-06-09 16:02:00 36.61 [place] [facility] Respiratory rate 2024-06-09 16:02:00 18 /min [facility] Body height 2024-06-09 16:02:00 162.6 cm [facility] Body weight 2024-06-09 16:02:00 75.978 kg [facility] BMI 2024-06-09 16:02:00 28.75 kg/m2 [facility] Systolic blood pressure 2024-06-02 01:53:00 129 mm[Hg] [facility] Diastolic blood pressure 2024-06-02 01:53:00 81 mm[Hg] [facility] Heart rate 2024-06-02 01:53:00 65 /min [facility] Body temperature 2024-06-02 01:53:00 36.67 [place] [facility] Respiratory rate 2024-06-02 01:53:00 18 /min [facility] Body height 2024-06-02 01:53:00 162.6 cm [facility] Body weight 2024-06-02 01:53:00 75.751 kg [facility] BMI 2024-06-02 01:53:00 28.67 kg/m2 [facility] Oxygen saturation in Arterial blood by Pulse oximetry 2024-06-02 01:53:00 99 /min [facility] Systolic blood pressure 2024-05-30 19:23:00 122 mm[Hg] [facility] Diastolic blood pressure 2024-05-30 19:23:00 88 mm[Hg] [facility] Heart rate 2024-05-30 19:23:00 102 /min [facility] Body temperature 2024-05-30 19:23:00 36.11 [place] [facility] Respiratory rate 2024-05-30 19:23:00 20 /min [facility] Body height 2024-05-30 19:23:00 165.1 cm [facility] Body weight 2024-05-30 19:23:00 75.751 kg [facility] BMI 2024-05-30 19:23:00 27.79 kg/m2 [facility] Systolic blood pressure 2024-05-26 15:30:00 114 mm[Hg] [facility] Diastolic blood pressure 2024-05-26 15:30:00 68 mm[Hg] [facility] Systolic blood pressure 2024-05-22 14:18:00 135 mm[Hg] [facility] Diastolic blood pressure 2024-05-22 14:18:00 90 mm[Hg] [facility] Heart rate 2024-05-22 14:17:00 77 /min [facility] Body temperature 2024-05-22 14:17:00 36.06 [place] [facility] Respiratory rate 2024-05-22 14:17:00 20 /min [facility] Body height 2024-05-22 14:17:00 162.6 cm [facility] Body weight 2024-05-22 14:17:00 74.617 kg [facility] BMI 2024-05-22 14:17:00 28.24 kg/m2 [facility] Systolic blood pressure 2024-05-20 21:10:00 137 mm[Hg] [facility] Diastolic blood pressure 2024-05-20 21:10:00 90 mm[Hg] [facility] Heart rate 2024-05-20 21:10:00 96 /min [facility] Body temperature 2024-05-20 21:10:00 36.67 [place] [facility] Respiratory rate 2024-05-20 21:10:00 20 /min [facility] Oxygen saturation in Arterial blood by Pulse oximetry 2024-05-20 21:10:00 98 /min [facility] Body height 2024-05-16 14:28:00 162.6 cm [facility] Body weight 2024-05-16 14:28:00 82.555 kg [facility] BMI 2024-05-16 14:28:00 31.24 kg/m2 [facility] Heart rate 2024-05-16 13:00:00 89 /min [facility] Oxygen saturation in Arterial blood by Pulse oximetry 2024-05-16 13:00:00 98 /min [facility] Systolic blood pressure 2024-05-16 12:45:00 114 mm[Hg] [facility] Diastolic blood pressure 2024-05-16 12:45:00 63 mm[Hg] [facility] Body temperature 2024-05-16 06:43:00 37 [place] [facility] Respiratory rate 2024-05-16 06:43:00 18 /min [facility] Body height 2024-05-16 06:40:00 162.6 cm [facility] Body weight 2024-05-16 06:40:00 82.555 kg [facility] BMI 2024-05-16 06:40:00 31.22 kg/m2 [facility] Systolic blood pressure 2024-05-13 13:19:00 151 mm[Hg] [facility] Diastolic blood pressure 2024-05-13 13:19:00 98 mm[Hg] [facility] Heart rate 2024-05-13 13:19:00 101 /min [facility] Body temperature 2024-05-13 13:19:00 35.89 Bar[place] [facility] Respiratory rate 2024-05-13 13:19:00 18 /min [facility] Body height 2024-05-13 13:19:00 162.6 cm [facility] Body weight 2024-05-13 13:19:00 81.194 kg [facility] BMI 2024-05-13 13:19:00 30.73 kg/m2 [facility] Systolic blood pressure 2024-05-12 07:24:00 105 mm[Hg] [facility] Diastolic blood pressure 2024-05-12 07:24:00 64 mm[Hg] [facility] Heart rate 2024-05-12 07:24:00 82 [facility] Oxygen saturation in Arterial blood by Pulse oximetry 2024-05-12 07:24:00 97 /min [facility] Respiratory rate 2024-05-12 05:30:00 18 /min [facility] Body temperature 2024-05-12 03:56:00 36.67 Bar[place] [facility] Body weight 2024-05-12 03:56:00 81.194 kg [facility] BMI 2024-05-12 03:56:00 30.73 kg/m2 [facility] Systolic blood pressure 2024-05-11 18:50:00 142 mm[Hg] [facility] Diastolic blood pressure 2024-05-11 18:50:00 86 mm[Hg] [facility] Body temperature 2024-05-11 18:32:00 36.83 Bar[place] [facility] Respiratory rate 2024-05-11 18:32:00 18 /min [facility] Body height 2024-05-11 18:32:00 162.6 cm [facility] Body weight 2024-05-11 18:32:00 81.375 kg [facility] BMI 2024-05-11 18:32:00 30.79 kg/m2 [facility] Systolic blood pressure 2024 13:43:00 114 mm[Hg] [facility] Diastolic blood pressure 2024 13:43:00 70 mm[Hg] [facility] Heart rate 2024 13:38:00 97 /min [facility] Body temperature 2024 13:38:00 36.5 Bar[facility] Respiratory rate 2024 13:38:00 18 /min [facility] Body height 2024 13:38:00 162.6 cm [facility] Body weight 2024 13:38:00 80.343 kg [facility] BMI 2024 13:38:00 30.40 kg/m2 [facility] Systolic blood pressure 2024-04-24 08:30:00 131 mm[Hg] [facility] Diastolic blood pressure 2024-04-24 08:30:00 87 mm[Hg] [facility] Heart rate 2024-04-24 08:30:00 87 /min [facility] Oxygen saturation in Arterial blood by Pulse oximetry 2024-04-24 08:30:00 100 /min [facility] Body temperature 2024-04-24 06:42:00 36.72 Abrby [facility] Respiratory rate 2024-04-24 06:42:00 18 /min [facility] Body height 2024-04-24 06:42:00 162.6 cm [facility] Body weight 2024-04-24 06:42:00 78.563 kg [facility] BMI 2024-04-24 06:42:00 29.73 kg/m2 [facility] Systolic blood pressure 2024-04-20 13:14:00 119 mm[Hg] [facility] Diastolic blood pressure 2024-04-20 13:14:00 80 mm[Hg] [facility] Heart rate 2024-04-20 13:14:00 72 /min [facility] Body temperature 2024-04-20 13:14:00 36.39 Bar[place] [facility] Respiratory rate 2024-04-20 13:14:00 19 /min [facility] Body height 2024-04-20 13:14:00 162.6 cm [facility] Body weight 2024-04-20 13:14:00 77.656 kg [facility] BMI 2024-04-20 13:14:00 29.39 kg/m2 [facility] Systolic blood pressure 2024-04-06 13:44:00 131 mm[Hg] [facility] Diastolic blood pressure 2024-04-06 13:44:00 77 mm[Hg] [facility] Heart rate 2024-04-06 13:44:00 76 /min [facility] Body temperature 2024-04-06 13:44:00 37.11 Bar[place] [facility] Respiratory rate 2024-04-06 13:44:00 17 /min [facility] Body height 2024-04-06 13:44:00 162.6 cm [facility] Body weight 2024-04-06 13:44:00 66.497 kg [facility] BMI 2024-04-06 13:44:00 25.16 kg/m2 [facility] Systolic blood pressure 2024-03-29 23:00:00 137 mm[Hg] [facility] Diastolic blood pressure 2024-03-29 23:00:00 66 mm[Hg] [facility] Heart rate 2024-03-29 23:00:00 82 /[facility] in Arterial blood by Pulse oximetry 2024-03-29 23:00:00 100 /min [facility] Body temperature 2024-03-29 21:42:00 36.72 Bar[place] [facility] Respiratory rate 2024-03-29 21:42:00 16 /min [facility] Body height 2024-03-29 21:42:00 162.6 cm [facility] Body weight 2024-03-29 21:42:00 73.846 kg [facility] BMI 2024-03-29 21:42:00 27.94 kg/m2 [facility] Systolic blood pressure 2024-03-23 13:20:00 136 mm[Hg] [facility] Diastolic blood pressure 2024-03-23 13:20:00 86 mm[Hg] [facility] Heart rate 2024-03-23 13:20:00 84 /min [facility] Body temperature 2024-03-23 13:20:00 36.78 Bar[place] [facility] Respiratory rate 2024-03-23 13:20:00 17 /min [facility] Body height 2024-03-23 13:20:00 162.6 cm [facility] Body weight 2024-03-23 13:20:00 72.938 kg [facility] BMI 2024-03-23 13:20:00 27.60 kg/m2 [facility] Systolic blood pressure 2024-03-18 05:45:00 115 mm[Hg] [facility] Diastolic blood pressure 2024-03-18 05:45:00 58 mm[Hg] [facility] Heart rate 2024-03-18 05:45:00 76 /min [facility] Oxygen saturation in Arterial blood by Pulse oximetry 2024-03-18 05:45:00 100 /min [facility] Body height 2024-03-18 04:15:00 162.6 cm [facility] Body weight 2024-03-18 04:15:00 72.213 kg [facility] BMI 2024-03-18 04:15:00 27.33 kg/m2 [facility] Body temperature 2024-03-18 04:07:00 36.78 Bar[place] [facility] Respiratory rate 2024-03-18 04:07:00 17 /min [facility] Systolic blood pressure 2024-03-17 18:09:00 130 mm[Hg] [facility] Diastolic blood pressure 2024-03-17 18:09:00 80 mm[Hg] [facility] Heart rate 2024-03-17 17:46:00 71 /min [facility] Body temperature 2024-03-17 17:46:00 36.72 Bar[place] [facility] Respiratory rate 2024-03-17 17:46:00 18 /min [facility] Body height 2024-03-17 17:46:00 162.6 cm [facility] Body weight 2024-03-17 17:46:00 71.26 kg [facility] BMI 2024-03-17 17:46:00 26.97 kg/m2 [facility] Systolic blood pressure 2024-03-09 14:01:00 119 mm[Hg] [facility] Diastolic blood pressure 2024-03-09 14:01:00 75 mm[Hg] [facility] Heart rate 2024-03-09 14:01:00 91 /min [facility] Body temperature 2024-03-09 14:01:00 36.28 Barby [facility] Body height 2024-03-09 14:01:00 162.6 cm [facility] Body weight 2024-03-09 14:01:00 72.054 kg [facility] BMI 2024-03-09 14:01:00 27.27 kg/m2 [facility] Systolic blood pressure 2024-02-26 15:15:00 129 mm[Hg] [facility] Diastolic blood pressure 2024-02-26 15:15:00 76 mm[Hg] [facility] Heart rate 2024-02-26 15:15:00 74 /min [facility] Body temperature 2024-02-26 15:15:00 36.78 Bar[place] [facility] Respiratory rate 2024-02-26 15:15:00 18 /min [facility] Body height 2024-02-26 15:15:00 162.6 cm [facility] Body weight 2024-02-26 15:15:00 68.312 kg [facility] BMI 2024-02-26 15:15:00 25.85 kg/m2 [facility] Systolic blood pressure 2024-02-24 20:34:00 132 mm[Hg] [facility] Diastolic blood pressure 2024-02-24 20:34:00 91 mm[Hg] [facility] Heart rate 2024-02-24 20:25:00 112 /min [facility] Body temperature 2024-02-24 20:25:00 36.83 Bar[place] [facility] Respiratory rate 2024-02-24 20:25:00 17 /min [facility] Body weight 2024-02-24 20:25:00 67.586 kg [facility] BMI 2024-02-24 20:25:00 25.56 kg/m2 [facility] Systolic blood pressure 2024-02-13 08:00:00 124 mm[Hg] [facility] Diastolic blood pressure 2024-02-13 08:00:00 69 mm[Hg] [facility] Heart rate 2024-02-13 08:00:00 64 /min [facility] Oxygen saturation in Arterial blood by Pulse oximetry 2024-02-13 08:00:00 100 /min [facility] Body height 2024-02-13 05:52:00 162.6 cm [facility] Body weight 2024-02-13 05:52:00 65.635 kg [facility] BMI 2024-02-13 05:52:00 24.83 kg/m2 [facility] Body temperature 2024-02-13 05:21:00 36.67 Baryb [facility] Respiratory rate 2024-02-13 05:21:00 18 /min [facility] Systolic blood pressure 2024-02-12 15:16:00 131 mm[Hg] [facility] Diastolic blood pressure 2024-02-12 15:16:00 89 mm[Hg] [facility] Heart rate 2024-02-12 15:16:00 93 /min [facility] Body temperature 2024-02-12 15:16:00 36.67 Bar[place] [facility] Respiratory rate 2024-02-12 15:16:00 18 /min [facility] Body height 2024-02-12 15:16:00 162.6 cm [facility] Body weight 2024-02-12 15:16:00 65.817 kg [facility] BMI 2024-02-12 15:16:00 24.91 kg/m2 [facility] Systolic blood pressure 2024-02-12 03:27:00 135 mm[Hg] [facility] Diastolic blood pressure 2024-02-12 03:27:00 81 mm[Hg] [facility] Heart rate 2024-02-12 03:27:00 78 /min [facility] Respiratory rate 2024-02-12 03:27:00 18 /min [facility] Body height 2024-02-12 03:27:00 162.6 cm [facility] Body weight 2024-02-12 03:27:00 65.772 kg [facility] BMI 2024-02-12 03:27:00 24.89 kg/m2 [facility] Systolic blood pressure 2024-01-30 15:31:00 100 mm[Hg] [facility] Diastolic blood pressure 2024-01-30 15:31:00 65 mm[Hg] [facility] Heart rate 2024-01-30 15:31:00 91 /min [facility] Body temperature 2024-01-30 15:31:00 36.56 Bar[place] [facility] Respiratory rate 2024-01-30 15:31:00 18 /min [facility] Body height 2024-01-30 15:31:00 162.6 cm [facility] Body weight 2024-01-30 15:31:00 65.97 kg [facility] BMI 2024-01-30 15:31:00 24.96 kg/m2 [facility] Systolic blood pressure 2024-01-27 15:22:00 133 mm[Hg] [facility] Diastolic blood pressure 2024-01-27 15:22:00 78 mm[Hg] [facility] Heart rate 2024-01-27 15:22:00 98 /min [facility] Body temperature 2024-01-27 15:22:00 36.61 Bar[place] [facility] Respiratory rate 2024-01-27 15:22:00 18 /min [facility] Body height 2024-01-27 15:22:00 162.6 cm [facility] Body weight 2024-01-27 15:22:00 66.134 kg [facility] BMI 2024-01-27 15:22:00 25.03 kg/m2 [facility] Systolic blood pressure 2024-01-25 06:00:00 130 mm[Hg] [facility] Diastolic blood pressure 2024-01-25 06:00:00 70 mm[Hg] [facility] Heart rate 2024-01-25 06:00:00 75 /min [facility] Respiratory rate 2024-01-25 06:00:00 17 /min [facility] Oxygen saturation in Arterial blood by Pulse oximetry 2024-01-25 06:00:00 100 /min [facility] Body temperature 2024-01-25 05:18:00 36.56 Bar[place] [facility] Body height 2024-01-25 04:56:00 162.6 cm [facility] Body weight 2024-01-25 04:56:00 67.359 kg [facility] BMI 2024-01-25 04:56:00 25.49 kg/m2 [facility] Systolic blood pressure 2024-01-15 15:14:00 130 mm[Hg] [facility] Diastolic blood pressure 2024-01-15 15:14:00 75 mm[Hg] [facility] Heart rate 2024-01-15 15:14:00 92 /min [facility] Body temperature 2024-01-15 15:14:00 36.22 Bar[place] [facility] Respiratory rate 2024-01-15 15:14:00 17 /min [facility] Body height 2024-01-15 15:14:00 162.6 cm [facility] Body weight 2024-01-15 15:14:00 64.501 kg [facility] BMI 2024-01-15 15:14:00 24.41 kg/m2 [facility] Systolic blood pressure 2024-01-01 15:28:00 132 mm[Hg] [facility] Diastolic blood pressure 2024-01-01 15:28:00 69 mm[Hg] [facility] Heart rate 2024-01-01 15:28:00 78 /min [facility] Body temperature 2024-01-01 15:28:00 36.61 Bar[place] [facility] Respiratory rate 2024-01-01 15:28:00 18 /min [facility] Body height 2024-01-01 15:28:00 162.6 cm [facility] Body weight 2024-01-01 15:28:00 63.22 kg [facility] BMI 2024-01-01 15:28:00 23.92 kg/m2 [facility] Systolic blood pressure 2023-12-30 13:56:00 127 mm[Hg] [facility] Diastolic blood pressure 2023-12-30 13:56:00 80 mm[Hg] [facility] Heart rate 2023-12-30 13:56:00 76 /min [facility] Body temperature 2023-12-30 13:56:00 36.11 Bar[place] [facility] Respiratory rate 2023-12-30 13:56:00 18 /min [facility] Body height 2023-12-30 13:56:00 162.6 cm [facility] Body weight 2023-12-30 13:56:00 63.957 [facility] BMI 2023-12-30 13:56:00 24.20 kg/m2 [facility] Systolic blood pressure 2023-12-10 18:34:00 118 mm[Hg] [facility] Diastolic blood pressure 2023-12-10 18:34:00 68 mm[Hg] [facility] Heart rate 2023-12-10 18:34:00 74 /min [facility] Body temperature 2023-12-10 18:34:00 36.44 Bar[place] [facility] Respiratory rate 2023-12-10 18:34:00 18 /min [facility] Body height 2023-12-10 18:34:00 162.6 cm [facility] Body weight 2023-12-10 18:34:00 61.19 kg [facility] BMI 2023-12-10 18:34:00 23.16 kg/m2 [facility] Systolic blood pressure 2023-11-14 14:36:00 127 mm[Hg] [facility] Diastolic blood pressure 2023-11-14 14:36:00 82 mm[Hg] [facility] Heart rate 2023-11-14 14:36:00 91 /min [facility] Body temperature 2023-11-14 14:36:00 36.89 Bar[place] [facility] Respiratory rate 2023-11-14 14:36:00 18 /min [facility] Body height 2023-11-14 14:36:00 162.6 cm [facility] Body weight 2023-11-14 14:36:00 60.782 kg [facility] BMI 2023-11-14 14:36:00 23.00 kg/m2 [facility] Systolic blood pressure 2023-11-12 04:00:00 127 mm[Hg] [facility] Diastolic blood pressure 2023-11-12 04:00:00 55 mm[Hg] [facility] Heart rate 2023-11-12 04:00:00 69 /min [facility] Body temperature 2023-11-12 04:00:00 37.22 Bar[place] [facility] Respiratory rate 2023-11-12 04:00:00 16 /min [facility] Oxygen saturation in Arterial blood by Pulse oximetry 2023-11-12 04:00:00 100 /min [facility] Body height 2023-11-12 02:44:00 162.6 cm [facility] Body weight 2023-11-12 02:44:00 58.968 kg [facility] BMI 2023-11-12 02:44:00 22.31 kg/m2 [facility] Systolic blood pressure 2023-10-24 16:38:00 140 mm[Hg] [facility] Diastolic blood pressure 2023-10-24 16:38:00 88 mm[Hg] [facility] Heart rate 2023-10-24 16:38:00 78 /min [facility] Body temperature 2023-10-24 16:38:00 37.33 Bar[place] [facility] Respiratory rate 2023-10-24 16:38:00 22 /min [facility] Body height 2023-10-24 16:38:00 162.6 cm [facility] Body weight 2023-10-24 16:38:00 58.968 kg [facility] BMI 2023-10-24 16:38:00 22.31 kg/m2 [facility] Oxygen saturation in Arterial blood by Pulse oximetry 2023-10-24 16:38:00 100 /min [facility] Systolic blood pressure 2023-08-20 20:26:00 136 mm[Hg] [facility] Diastolic blood pressure 2023-08-20 20:26:00 81 mm[Hg] [facility] Heart rate 2023-08-20 20:26:00 68 /min [facility] Body temperature 2023-08-20 20:26:00 36.17 Bar[place] [facility] Respiratory rate 2023-08-20 20:26:00 18 /min [facility] Body height 2023-08-20 20:26:00 165.1 cm [facility] Body weight 2023-08-20 20:26:00 62.642 kg [facility] BMI 2023-08-20 20:26:00 22.98 kg/m2 [facility] Syst[facility] blood pressure 2023-04-24 15:10:00 148 mm[Hg] [facility] Diastolic blood pressure 2023-04-24 15:10:00 99 mm[Hg] [facility] Heart rate 2023-04-24 15:10:00 87 /min [facility] Body temperature 2023-04-24 15:10:00 37.11 Bar[place] [facility] Respiratory rate 2023-04-24 15:10:00 18 /min [facility] Body height 2023-04-24 15:10:00 165.1 cm [facility] Body weight 2023-04-24 15:10:00 62.596 kg [facility] BMI 2023-04-24 15:10:00 22.96 kg/m2 [facility] Oxygen saturation in Arterial blood by Pulse oximetry 2023-04-24 15:10:00 100 /min [facility] Systolic blood pressure 2023-04-18 15:54:00 141 mm[Hg] [facility] Diastolic blood pressure 2023-04-18 15:54:00 73 mm[Hg] [facility] Heart rate 2023-04-18 15:54:00 58 /min [facility] Body temperature 2023-04-18 15:54:00 36.28 Bar[place] [facility] Respiratory rate 2023-04-18 15:54:00 18 /min [facility] Body height 2023-04-18 15:54:00 162.6 cm [facility] Body weight 2023-04-18 15:54:00 62.914 kg [facility] BMI 2023-04-18 15:54:00 23.81 kg/m2 [facility] Systolic blood pressure 2023-04-01 18:05:00 140 mm[Hg] [facility] Diastolic blood pressure 2023-04-01 18:05:00 87 mm[Hg] [facility] Heart rate 2023-04-01 18:02:00 97 /min [facility] Body temperature 2023-04-01 18:02:00 36 [place] [facility] Body height 2023-04-01 18:02:00 165.1 cm [facility] Body weight 2023-04-01 18:02:00 61.236 kg [facility] BMI 2023-04-01 18:02:00 22.47 kg/m2 [facility] Oxygen saturation in Arterial blood by Pulse oximetry 2023-04-01 18:02:00 97 /min [facility] Systolic blood pressure 2023-02-14 15:01:00 126 mm[Hg] [facility] Diastolic blood pressure 2023-02-14 15:01:00 58 mm[Hg] [facility] Heart rate 2023-02-14 15:01:00 70 /min [facility] Body temperature 2023-02-14 15:01:00 36.61 Bar[place] [facility] Respiratory rate 2023-02-14 15:01:00 18 /min [facility] Body height 2023-02-14 15:01:00 165.1 cm [facility] Body weight 2023-02-14 15:01:00 66.815 kg [facility] BMI 2023-02-14 15:01:00 24.51 kg/m2 [facility] Oxygen saturation in Arterial blood by Pulse oximetry 2023-02-14 15:01:00 100 /min [facility] Systolic blood pressure 2023-01-03 14:37:00 130 mm[Hg] [facility] Diastolic blood pressure 2023-01-03 14:37:00 85 mm[Hg] [facility] Heart rate 2023-01-03 14:37:00 66 /min [facility] Body temperature 2023-01-03 14:37:00 36.28 Bar[place] [facility] Body height 2023-01-03 14:37:00 165.1 cm [facility] Body weight 2023-01-03 14:37:00 68.221 kg [facility] BMI 2023-01-03 14:37:00 25.03 kg/m2 [facility] Oxygen saturation in Arterial blood by Pulse oximetry 2023-01-03 14:37:00 98 /min [facility] Systolic blood pressure 2022-12-28 00:30:00 133 mm[Hg] [facility] Diastolic blood pressure 2022-12-28 00:30:00 75 mm[Hg] [facility] Heart rate 2022-12-28 00:30:00 82 /min [facility] Body temperature 2022-12-28 00:30:00 37.22 Bar[place] [facility] Respiratory rate 2022-12-28 00:30:00 16 /min [facility] Body height 2022-12-28 00:30:00 165.1 cm [facility] Body weight 2022-12-28 00:30:00 67.858 kg [facility] BMI 2022-12-28 00:30:00 24.89 kg/m2 [facility] Oxygen saturation in Arterial blood by Pulse oximetry 2022-12-28 00:30:00 100 /min [facility] Systolic blood pressure 2022-12-28 00:06:00 145 mm[Hg] [facility] Diastolic blood pressure 2022-12-28 00:06:00 102 mm[Hg] [facility] Heart rate 2022-12-28 00:06:00 88 /min [facility] Body temperature 2022-12-28 00:06:00 36.39 Barby [facility] Respiratory rate 2022-12-28 00:06:00 17 /min [facility] Body weight 2022-12-28 00:06:00 67.813 kg [facility] BMI 2022-12-28 00:06:00 25.66 kg/m2 [facility] Oxygen saturation in Arterial blood by Pulse oximetry 2022-12-28 00:06:00 98 /min [facility] Systolic blood pressure 2022-12-20 14:41:00 128 mm[Hg] [facility] Diastolic blood pressure 2022-12-20 14:41:00 79 mm[Hg] [facility] Heart rate 2022-12-20 14:41:00 79 /min [facility] Body temperature 2022-12-20 14:41:00 36 Bar[place] [facility] Respiratory rate 2022-12-20 14:41:00 18 /min [facility] Body height 2022-12-20 14:41:00 162.6 cm [facility] Body weight 2022-12-20 14:41:00 69.854 kg [facility] BMI 2022-12-20 14:41:00 26.43 kg/m2 [facility] Systolic blood pressure 2022-09-21 15:50:00 132 mm[Hg] [facility] Diastolic blood pressure 2022-09-21 15:50:00 73 mm[Hg] [facility] Heart rate 2022-09-21 15:45:00 73 /min [facility] Body temperature 2022-09-21 15:45:00 36.72 Bar[facility] Respiratory rate 2022-09-21 15:45:00 19 /min [facility] Body height 2022-09-21 15:45:00 165.1 cm [facility] Body weight 2022-09-21 15:45:00 76.068 kg [facility] BMI 2022-09-21 15:45:00 27.91 kg/m2 [facility] Systolic blood pressure 2022-02-15 13:51:00 127 mm[Hg] [facility] Diastolic blood pressure 2022-02-15 13:51:00 88 mm[Hg] [facility] Heart rate 2022-02-15 13:51:00 71 /min Unive [facility] Body temperature 2022-02-15 13:51:00 36.11 Barby [facility] Respiratory rate 2022-02-15 13:51:00 16 /min [facility] Body height 2022-02-15 13:51:00 165.1 cm [facility] Body weight 2022-02-15 13:51:00 89.313 kg [facility] BMI 2022-02-15 13:51:00 32.77 kg/m2 [facility] Procedures Procedure Date / Time Performed Performing Clinician Source POCT TEST 2025-04-26 01:55:00 Britney Gibbs [facility] XR ANKLE 3+ VW RIGHT 2025-04-26 01:47:54 Teresita Gibbs [facility] XR FOOT 3+ VW RIGHT 2025-04-26 01:47:54 Britney Gibbs [facility] HSV 1&2, VZV NAAT 2025-04-09 22:35:00 Rahel Dickson [facility] GC, CHLAMYDIA, & M. GENITALIUM AMPLIFIED ASSAY 2025-04-09 22:31:00 Rahel Dickson [facility] GALV ONLY - VAGINAL PATHOGENS BY NUCLEIC ACID TESTING 2025-04-09 22:19:00 Rahel Dickson [facility] POCT TEST 2025-04-09 22:10:00 Berkley Dickson [facility] POCT URINALYSIS 2025-04-09 22:08:00 Rahel Dickson [facility] TOTAL BETA HCG ASSAY 2025-03-27 03:10:00 Medhat Hagan [facility] CBC WITH DIFF 2025-03-27 03:10:00 Arik Hagan [facility] COMP. METABOLIC PANEL ([id number]) 2025-03-23 14:40:00 Carla Vaughn [facility] TOTAL BETA HCG ASSAY 2025-03-23 14:40:00 Kelly Vaughn [facility] CBC WITH DIFF 2025-03-23 14:40:00 Carla Vaughn [facility] GLYCOSYLATED HEMOGLOBIN (A1C) 2025-03-23 14:40:00 Carla Vaughn [facility] HEPATITIS B SURFACE ANTIGEN 2025-03-23 14:40:00 Carla Vaughn [facility] HCV ANTIBODY 2025-03-23 14:40:00 [facility] 2025-03-23 14:40:00 Carla Vaughn [facility] URINE CULTURE 2025-03-23 14:40:00 Carla Vaughn [facility] GC & CHLAMYDIA AMPLIFIED ASSAY 2025-03-23 14:40:00 Carla Vaughn [facility] HIV 1/2 AG-AB WITH REFLEX 2025-03-23 14:40:00 Carla Vaughn [facility] SYPHILIS IGG/IGM 2025-03-23 14:40:00 Carla Vaughn [facility] POCT URINALYSIS 2025-03-23 13:53:00 Carla Vaughn [facility] POCT TEST 2025-03-23 13:53:00 Sivan Vaughn [facility] CBC WITH DIFF 2025-03-14 06:57:00 Sho Jeffrey [facility] US FIRST TRIMESTER LESS THAN 14 WEEKS WITH TRANSVAGINAL 2025-03-14 05:39:08 Sho Jeffrey [facility] POCT TEST 2025-03-14 02:59:00 AufdSho dorantes [facility] HB ABO GROUPING 2025-03-14 02:55:00 AufdSho yousif [facility] URINALYSIS 2025-03-14 02:52:00 Sho Jeffrey [facility] COMP. METABOLIC PANEL ([id number]) 2025-03-14 02:38:00 Sho Jeffrey [facility] TOTAL BETA HCG ASSAY 2025-03-14 02:38:00 Sho Palma [facility] CBC WITH DIFF 2025-03-14 02:38:00 Sho Jeffrey [facility] FIRST TRIMESTER ULTRASOUND 2025-02-25 20:30:00 Meryl Bunn [facility] XR FOOT 3+ VW LEFT 2025-02-04 17:11:05 Marycruz Dickson [facility] TOTAL BETA HCG ASSAY 2025-02-04 16:25:00 Ernesto Dickson [facility] POCT URINALYSIS W/O SPECIFIC GRAVITY 2025-02-01 17:57:00 Meryl Bunn [facility] POCT TEST 2025-02-01 17:56:00 Oskar Bunn [facility] POCT TEST 2025-01-28 18:16:00 Chaya Pelaez [facility] BASIC METABOLIC PANEL (NA, K, CL, CO2, GLUCOSE, BUN, CREATININE, CA) 2025-01-28 18:10:00 Chaya Pelaez [facility] TOTAL BETA HCG ASSAY 2025-01-28 18:10:00 Chaya Pelaez [facility] CBC WITH DIFF 2025-01-28 18:10:00 [facility] URINALYSIS 2025-01-28 18:10:00 Chaya Pelaez [facility] POCT TEST 2025-01-27 15:31:00 Oskar Bunn [facility] POCT TEST 2025-01-06 16:21:00 Maribeth Huston [facility] POCT TEST 2024-12-07 19:54:00 Mairbeth Huston [facility] GARDASIL 9 (HPV 9V) VACCINE 2024-12-07 18:32:23 Leslie Castellanos [facility] CBC WITH DIFF 2024-07-02 17:33:00 Maribeth Huston [facility] CBC WITH DIFF 2024-05-19 09:11:00 Ellen Betancourt Mai [facility] VENOUS CORD GAS 2024-05-18 08:11:00 Jenusaitis, Gabo U [facility] SGOT (ASPARTATE AMINO TRANSFER) 2024-05-18 03:26:00 Ly, [facility] CREATININE 2024-05-18 03:26:00 Ly, [facility] ALANINE AMINO TRANSFERASE(SGPT 2024-05-18 03:26:00 Ly, [facility] LACTATE DEHYDROGENASE 2024-05-18 03:26:00 Ly, [facility] URIC ACID 2024-05-18 03:26:00 Ly, [facility] CBC WITH DIFF 2024-05-18 03:26:00 Ly, [facility] CENTRAL NEURAXIAL BLOCK 2024-05-17 07:39:00 Júnior Silverman as [facility] HEPATITIS B SURFACE ANTIGEN 2024-05-16 17:09:00 Jenusaitis, [facility] HIV 1/2 AG-AB WITH REFLEX 2024-05-16 17:09:00 Jenusaitis, [facility] SYPHILIS IGG/IGM 2024-05-16 17:09:00 Jenusaitis, [facility] HB ABO GROUPING 2024-05-16 15:32:00 Manda Newberry [facility] RHO (D) IMMUNE GLOBULIN 2024-05-16 15:32:00 Lazara Mercado Mai [facility] HB ABO GROUPING 2024-05-16 11:08:00 Adum, Daisy Loaiza [facility] HIV 1/2 AG-AB WITH REFLEX 2024-05-16 11:08:00 Adum, Daisy Crandall [facility] SGOT (ASPARTATE AMINO TRANSFER) 2024-05-16 07:45:00 Adum, Daisy Crandall [facility] CREATININE 2024-05-16 07:45:00 Adum, [facility] ALANINE AMINO TRANSFERASE(SGPT 2024-05-16 07:45:00 Adum, Daisy Crandall [facility] LACTATE DEHYDROGENASE 2024-05-16 07:45:00 Adum, Daisy Karley [facility] URIC ACID 2024-05-16 07:45:00 Adum, Daisy [facility] CBC WITH DIFF 2024-05-16 07:45:00 Adum, Daisy [facility] URINALYSIS 2024-05-16 07:45:00 Adum, Daisy Crandall [facility] PROTEIN CREAT RATIO URINE RANDOM 2024-05-16 07:45:00 Adum, Daisy Karley [facility] NON-STRESS TEST 2024-05-13 20:09:47 Sherie Do sa [facility] POCT URINALYSIS 2024-05-13 13:20:00 Leslie Castellanos [facility] SGOT (ASPARTATE AMINO TRANSFER) 2024-05-12 06:25:00 El-Eishy, Alfarooq Y [facility] CREATININE 2024-05-12 06:25:00 El-Eishy, Alfarooq Y [facility] ALANINE AMINO TRANSFERASE(SGPT 2024-05-12 06:25:00 El-Eishy, Alfarooq Y [facility] CBC WITH DIFF 2024-05-12 06:25:00 El-Eishy, Alfarooq Y [facility] URINALYSIS 2024-05-12 06:25:00 El-Eishy Alfarooq Y [facility] POCT URINALYSIS 2024-05-11 00:00:00 Leslie Castellanos [facility] POCT URINALYSIS 2024 13:37:00 Leslie Castellanos [facility] URINALYSIS 2024-04-24 07:09:00 Sejal Luz Maria [facility] ADC CLC OR LCC ONLY - WET PREP 2024-04-24 07:09:00 Sejal Luz Maria [facility] POCT URINALYSIS 2024-04-20 13:18:00 Leslie Castellanos [facility] SECOND AND THIRD TRIMESTER ULTRASOUND 2024-04-07 18:50:00 Carla Vaughn [facility] POCT URINALYSIS 2024-04-06 14:28:00 Leslie Castellanos [facility] TDAP VACCINE, >11 YRS, IM 2024-04-06 14:01:15 Leslie Castellanos [facility] POCT URINALYSIS 2024-03-23 14:07:00 Leslie Castellanos [facility] ADC CLC OR LCC ONLY - WET PREP 2024-03-18 04:31:00 Naveen Patel [facility] POCT URINALYSIS 2024-03-17 18:12:00 Leslie Castellanos [facility] POCT URINALYSIS 2024-03-09 15:24:00 Leslie Castellanos [facility] POCT URINALYSIS 2024-02-26 15:16:00 Leslie Castellanos [facility] POCT URINALYSIS 2024-02-24 00:00:00 Leslie Castellanos [facility] US PELVIS > 14 WEEKS 2024-02-12 05:19:40 Naveen Patel [facility] URINALYSIS 2024-02-12 03:50:00 Naveen Patel [facility] ADC CLC OR LCC ONLY - WET PREP 2024-02-12 03:40:00 Naveen Patel [facility] SECOND AND THIRD TRIMESTER ULTRASOUND 2024-02-05 15:06:00 Leslie Castellanos [facility] POCT URINALYSIS 2024-01-27 16:18:00 Leslie Castellanos [facility] POCT URINALYSIS 2024-01-01 15:29:00 Leslie Castellanos [facility] POCT URINALYSIS 2023-12-30 13:59:00 Leslie Castellanos [facility] POCT URINALYSIS 2023-12-10 19:51:00 Leslie Castellanos [facility] FIRST TRIMESTER ULTRASOUND 2023-11-27 20:41:01 Leslie Castellanos [facility] PAP SMEAR-LIQUID BASED-CP 2023-11-14 16:19:00 Leslie Castellanos [facility] GLUCOSE 1 HOUR POST PRANDIAL 2023-11-14 15:53:00 Leslie Castellanos [facility] CBC WITH DIFF 2023-11-14 15:53:00 Leslie Castellanos [facility] HEPATITIS B SURFACE ANTIGEN 2023-11-14 15:53:00 Leslie Castellanos [facility] HB ABO GROUPING 2023-11-14 15:53:00 Leslie Castellanos [facility] HIV 1/2 AG-AB WITH REFLEX 2023-11-14 15:53:00 Leslie Castellanos [facility] POCT URINALYSIS W/O SPECIFIC GRAVITY 2023-11-14 14:37:00 Carla Vaughn [facility] POCT TEST 2023-11-14 14:27:00 Sivan Vaughn [facility] LIPASE 2023-11-12 03:10:00 Arnold Blum [facility] COMP. METABOLIC PANEL ([id number]) 2023-11-12 03:10:00 Arnold Blum [facility] CBC WITH DIFF 2023-11-12 03:10:00 Arnold Blum [facility] URINALYSIS 2023-11-12 03:10:00 Arnold Blum [facility] ABORH CONFIRMATION (LAB ONLY) 2023-10-24 18:54:00 Nacho Nguyen [facility] THYROID STIMULATING HORMONE 2023-10-24 17:55:00 Nacho Nguyen [facility] COMP. METABOLIC PANEL ([id number]) 2023-10-24 17:55:00 Nacho Nguyen [facility] TOTAL BETA HCG ASSAY 2023-10-24 17:55:00 Wendy, And res [facility] CBC WITH DIFF 2023-10-24 17:55:[address] [facility] HB ABO GROUPING 2023-10-24 17:55:00 Nacho Nguyen [facility] CONSENT/REFUSAL FOR DIAGNOSIS AND TREATMENT 2023-10-24 16:28:49 Doctor Unassigned, [place] [facility] POCT TEST 2023-04-24 15:42:[address] [facility] URINALYSIS 2023-04-24 15:38:00 Rahel Dickson [facility] ASSIGNMENT OF BENEFITS 2023-04-24 15:20:04 Docto r Unassigned, [place] [facility] CONSENT/REFUSAL FOR DIAGNOSIS AND TREATMENT 2023-04-24 15:04:50 Doctor Unassigned, [place] [facility] POCT TEST 2023-04-18 00:00:00 Adriano Olivier [facility] COMP. METABOLIC PANEL ([id number]) 2023-04-01 18:36:00 Eliza Olivier [facility] CBC WITH DIFF 2023-04-01 18:36:00 Eliza Olivier [facility] POCT URINALYSIS 2023-01-03 15:09:00 Eliza Olivier [facility] POCT TEST 2023-01-03 15:09:00 Adriano Olivier [facility] CT ABDOMEN PELVIS W CONTRAST 2022-12-28 02:03:46 Yaw Bro [facility] ASSIGNMENT OF BENEFITS 2022-12-28 01:22:25 Docto r Unassigned, [place] [facility] POCT TEST 2022-12-28 01:05:00 Kasandra Bro [facility] LIPASE 2022-12-28 01:04:00 Yaw Bro [facility] THYROID STIMULATING HORMONE 2022-12-28 01:04:00 Yaw Bro [facility] COMP. METABOLIC PANEL ([id number]) 2022-12-28 01:04:00 Yaw Bro [facility] CBC WITH DIFF 2022-12-28 01:04:00 Yaw Bro [facility] URINALYSIS 2022-12-28 01:04:00 Yaw Bro [facility] CONSENT/REFUSAL FOR DIAGNOSIS AND TREATMENT 2022-12-28 00:17:56 Doctor Unassigned, [place] [facility] ASSIGNMENT OF BENEFITS 2022-12-20 14:26:08 Docto r Unassigned, [place] [facility] POCT TEST 2022-09-21 00:00:00 Sivan Vaughn [facility] Encounters Start Date/Time End Date/Time Encounter Type Admission Type Attending [facility] Facility Care Department Encounter ID Source 2024-05-12 04:58:16 Outpatient X [facility] [place] [id number] [facility] 2024-03-18 01:30:50 Outpatient X [facility] [id number] [facility] 2024-01-25 01:57:28 Outpatient X [facility] [id number] [facility] 2021-06-08 19:53:15 Emergency [facility] [id number] [facility] 2025-05-14 13:30:00 2025-05-14 13:30:00 Outpatient R LESLIE CASTELLANOS [facility] [id number] [facility] 2025-04-25 20:22:00 2025-04-25 22:47:00 Emergency X ABRAHANRENUKABLAYNEWALTOTONIEL Marley [facility] E[place] [id number] [facility] 2025-04-14 00:00:00 2025-04-14 15:09:48 Telephone Carla Vaughn [facility] MANAGER DOCUMENT [facility] 1..840.114 350.1.13.10 4.2.7.2.686 [id number] [facility] 2025-04-11 11:00:00 2025-04-11 11:54:14 Urgent Care R Rahel Dickson [facility] 1.2.840.114 350.1.13.10 4.2.7.2.686 [id number] [facility] 2025-04-09 17:00:00 2025-04-09 17:46:22 Urgent Care R RAHEL DICKSON [facility] 1.0.114 350.1.13.10 4.2.7.2.686 [id number] [facility] 2025-04-09 09:40:00 2025-04-09 09:40:00 Outpatient R UNKNOWN, MELINDA [facility] [id number] [facility] 2025-04-05 13:45:00 2025-04-05 13:45:00 Outpatient R CARLA VAUGHN [facility] [id number] [facility] 2025-03-30 14:45:00 2025-03-30 14:45:00 Outpatient R [facility] [id number] [facility] 2025-03-30 08:45:00 2025-03-30 08:45:00 Outpatient R [facility] [id number] [facility] 2025-03-26 21:33:00 2025-03-27 00:44:00 Emergency X Fletcher Ramesh Ericca D [facility] 1..114 350.1.13.10 4.2.7.2.686 [id number] [facility] 2025-03-24 00:00:00 2025-03-24 08:43:07 Telephone Carla Vaughn [facility] MANAGER DOCUMENT [facility] MATERNAL & [facility] 1..114 350.1.13.10 4.2.7.2.686 [id number] [facility] 2025-03-23 08:30:00 2025-03-23 09:42:52 Initial Visit R Carla Vaughn [facility] MANAGER DOCUMENT [facility] MATERNAL & [facility] 1.840.114 350.1.13.10 4.2.7.2.686 [id number] 107 [id number] [facility] 2025-03-23 08:00:00 2025-03-23 08:00:00 Outpatient R CARLA VAUGHN [facility] [id number] [facility] 2025-03-13 21:22:00 2025-03-14 02:56:00 Emergency X Leanneheidijagdish Sho Falk [facility] 840.114 350.1.13.10 4.2.7.2.686 [id number] [facility] 2025-02-01 00:00:00 2025-03-06 18:22:00 Patient Secure Msg Doctor Unassigned, [place] Doctor Unassigned, [place] [facility] MANAGER DOCUMENT [facility]NAL & [facility]ILD [facility] [address] 840.114 350.1.13.10 4.2.7.2.686 [id number] [facility] 2025-03-04 10:40:00 2025-03-04 10:40:00 Outpatient R [facility] [id number] [facility] 2025-03-01 10:45:00 2025-03-01 10:45:00 Outpatient R MERYL BUNN [facility] [id number] [facility] 2025-03-01 10:45:00 2025-03-01 10:45:00 Outpatient R LESLIE CASTELLANOS [facility] [id number] [facility] 2025-02-25 15:30:00 2025-02-25 16:09:24 Burglar Alarm Mechanic Visit R 1, [facility] Room Sully Modi Lenore [facility] MANAGER DOCUMENT [facility] MATERNAL & CHILD [facility] 840.114 350.1.13.10 4.2.7.2.686 [id number] [facility] 2025-02-04 10:52:00 2025-02-04 13:47:00 Emergency X RAHEL DICKSON [facility] [id number] [facility] 2025-02-04 10:20:00 2025-02-04 10:20:00 Outpatient R [facility] [id number] [facility] 2025-02-03 00:00:00 2025-02-03 09:46:35 Patient Secure MsMeryl Jean [facility] MANAGER DOCUMENT [facility] & CHILD [facility] 1.2.840.114 350.1.13.10 4.2.7.2.686 [id number] [facility] 2025-02-02 00:00:00 2025-02-02 07:27:00 Case Management Meryl Bunn [facility] MANAGER DOCUMENT [facility] & CHILD [facility] 1.2.840.114 350.1.13.10 4.2.7.2.686 [id number] [facility] 2025-02-01 00:00:00 2025-02-01 13:47:43 Case Management Meryl Bunn [facility] MANAGER DOCUMENT [facility] & CHILD [facility] 1.2.840.114 350.1.13.10 4.2.7.2.686 [id number] [facility] 2025-02-01 12:30:00 2025-02-01 13:45:32 Initial Visit R Meryl Bunn [facility] MANAGER DOCUMENT [facility] & CHILD [facility] 1.2.840.114 350.1.13.10 4.2.7.2.686 [id number] [facility] 2025-02-01 00:00:00 2025-02-01 13:42:06 Letter (Out) Meryl Bunn [facility] MANAGER DOCUMENT [facility] & CHILD [facility] 1.2.840.114 350.1.13.10 4.2.7.2.686 [id number] [facility] 2025-02-01 12:00:00 2025-02-01 12:39:44 Outpatient R MERYL BUNN [facility] [id number] [facility] 2025-01-28 12:48:00 2025-01-28 15:46:00 Emergency X CHAYA PELAEZ, CHAYA [facility] ERT [id number] [facility] 2025-01-28 00:00:00 2025-01-28 10:56:32 Nurse Triage Ladonna Shaw Angelina [facility] 1..114 350.1.13.10 4.2.7.2.686 [id number] [facility] 2025-01-27 10:15:00 2025-01-27 14:25:27 Office Visit MERYL SOLER [facility] MANAGER DOCUMENT [facility] MATERNAL & [facility]ILD [facility] [address] 1..114 350.1.13.10 4.2.7.2.686 [id number] [facility] 2025-01-27 09:20:00 2025-01-27 09:20:00 Outpatient R [facility] [id number] [facility] 2025-01-06 11:00:00 2025-01-06 11:43:37 Office Visit MARIBETH WEBB [facility] MANAGER DOCUMENT [facility] MATERNAL & CHILD [facility] 1..114 350.1.13.10 4.2.7.2.686 [id number] [facility] 2024-12-22 14:20:00 2024-12-22 14:40:00 Urgent Care Rahel Dickson, Attending [facility] 1.114 350.1.13.10 4.2.7.2.686 [id number] [facility] 2024-12-22 14:20:00 2024-12-22 14:20:00 Outpatient R RAHEL DICKSON [facility] [id number] [facility] 2024-12-08 00:00:00 2024-12-08 12:53:47 Patient Secure Msg Maribeth Huston [facility] MANAGER DOCUMENT [facility] & [facility] 1.2.840.114 350.1.13.10 4.2.7.2.686 [id number] [facility] 2024-12-08 00:00:00 2024-12-08 12:31:42 Case Management Maribeth Huston [facility] MANAGER DOCUMENT [facility] CH[facility] 1..840.114 350.1.13.10 4.2.7.2.686 [id number] [facility] 2024-12-07 13:15:00 2024-12-07 14:03:23 Outpatient R ROBELMARIBETH [facility] [id number] [facility] 2024-12-07 13:15:00 2024-12-07 14:03:23 Office Visit RobelMaribeth [facility] MANAGER DOCUMENT [facility] 1..840.114 350.1.13.10 4.2.7.2.686 [id number] [facility] 2024-10-26 14:20:00 2024-10-26 18:18:27 Outpatient R VENANCIO TAVAREZ [facility] [id number] [facility] 2024-10-22 10:20:00 2024-10-22 10:42:22 Outpatient R BAILEE LIZ [facility] [id number] [facility] 2024-07-05 00:00:00 2024-07-06 08:47:37 [facility] 1.2.840.114 350.1.13.10 4.2.7.2.686 [id number] [facility] 2024-07-02 10:15:00 2024-07-02 11:34:09 Outpatient R MARIBETH HUSTON [facility] [id number] [facility] 2024-07-02 10:15:00 2024-07-02 11:34:09 Office Visit Maribeth Huston [facility] MANAGER DOCUMENT [facility] MATERNAL & [facility] 1..840.114 350.1.13.10 4.2.7.2.686 [id number] [facility] 2024-07-01 13:30:00 2024-07-01 13:30:00 Outpatient LESLIE BOWER [facility] [id number] [facility] 2024-06-09 11:00:00 2024-06-09 11:42:29 Outpatient LESLIE BOEWR [facility] [id number] [facility] 2024-06-09 11:00:00 2024-06-09 11:42:29 Routine Visit LESLIE BOWER [facility] MANAGER DOCUMENT [facility] & [facility] 1..840.114 350.1.13.10 4.2.7.2.686 [id number] [facility] 2024-06-08 09:45:00 2024-06-08 09:45:00 Outpatient ROSALES WATKINS EMILY [facility] [id number] [facility] 2024-06-08 09:45:00 2024-06-08 09:45:00 Outpatient ROSALES WATKINS [facility] [id number] [facility] 2024-06-01 20:54:00 2024-06-01 23:16:00 Emergency X HADLEY JOSÉ [facility] ERT [id number] [facility] 2024-06-01 20:54:00 2024-06-01 23:16:00 Emergency [place] José [facility] 1..840.114 350.1.13.10 4.2.7.2.686 [id number] [facility] 2024-04-27 00:00:00 2024-05-30 18:26:00 Patient Secure Msg Doctor Unassigned, [place] [facility] Unassigned, [place] [facility] 1.2.840.114 350.1.13.10 4.2.7.2.686 [id number] [facility] 2024-05-30 14:15:00 2024-05-30 14:33:52 Outpatient R SANDRINE DELGADO [facility] [id number] [facility] 2024-05-30 14:15:00 2024-05-30 14:33:52 Routine Visit Sandrine Delgado [facility] ([facility] 1.2840.114 350.1.13.10 4.2.7.2.686 [id number] [facility] 2024-05-27 00:00:00 2024-05-27 12:37:24 Encounter [facility] ([place]) 1.2.0.114 350.1.13.10 4.2.7.2.686 [id number] [facility] 2024-05-26 10:30:00 2024-05-26 10:44:52 Outpatient R GRETCHEN MURRAY [facility] [id number] [facility] 2024-05-26 10:30:00 2024-05-26 10:44:52 Nurse Visit GRETCHEN PANIAGUA [facility] ([facility]) 1.2.840.114 350.1.13.10 4.2.7.2.686 [id number] [facility] 2024-05-26 00:00:00 2024-05-26 09:41:09 Encounter [facility] ([facility]) 1.2.840.114 350.1.13.10 4.2.7.2.686 [id number] [facility] 2024-05-22 09:30:00 2024-05-22 09:46:34 Outpatient R GRETCHEN MURRAY [facility] [id number] [facility] 2024-05-22 09:30:00 2024-05-22 09:46:34 Nurse Visit Visit/Fp, [facility] Nurse Gretchen Murray Visit/Fp, [facility] Nurse [facility] ([facility]) 1.2.840.114 350.1.13.10 4.2.7.2.686 [id number] [facility] 2024-05-16 09:19:00 2024-05-20 17:46:00 Hospital Encounter Gaurav Lala Corey [facility] ([facility]) 1.2.840.114 350.1.13.10 4.2.7.2.686 [id number] [facility] 2024-05-18 00:00:00 2024-05-18 15:20:13 Telephone Leslie Castellanos [facility] MANAGER DOCUMENT [facility] 1.2.840.114 350.1.13.10 4.2.7.2.686 [id number] [facility] 2024-05-18 08:45:00 2024-05-18 08:45:00 Outpatient R LESLIE CASTELLANOS [facility] [id number] [facility] 2024-05-17 01:00:00 2024-05-18 04:33:00 Anesthesia Event Sadi Silverman Sarah [facility] ([facility]) 1.2.0.114 350.1.13.10 4.2.7.2.686 [id number] [facility] 2024-05-16 01:26:00 2024-05-16 09:00:00 Outpatient X DAISY CABELLO VIVIAN [facility] [place] [id number] [facility] 2024-05-16 01:26:00 2024-05-16 09:00:00 Outpatient X ADUM, DAISY CHANG [facility] [place] [id number] [facility] 2024-05-16 01:26:00 2024-05-16 09:00:00 Emergency Adum, Daisy Crnadall [facility] 1..114 350.1.13.10 4.2.7.2.686 [id number] [id number] [facility] 2024-05-13 08:45:00 2024-05-13 08:55:39 Outpatient R LESLIE CASTELLANOS [facility] [id number] [facility] 2024-05-13 08:30:00 2024-05-13 08:55:34 Routine Visit Risk, Ang-Rmchp-N p/High Leslie Castellanos Risk, Ang-Rmchp-N p/High [facility] MANAGER DOCUMENT [facility] 1..114 350.1.13.10 4.2.7.2.686 [id number] 107 [id number] [facility] 2024-05-12 16:00:00 2024-05-12 16:00:00 Outpatient R OBI-KERI , REBECCA OBI-KERI , REBECCA [facility] [id number] [facility] 2024-05-12 00:00:00 2024-05-12 15:30:23 Telephone Leslie Castellanos [facility] MANAGER DOCUMENT [facility] 1..114 350.1.13.10 4.2.7.2.686 [id number] 107 [id number] [facility] 2024-05-12 00:00:00 2024-05-12 14:55:20 Abstract Leslie Castellanos [facility] MANAGER DOCUMENT [facility] 1..114 350.1.13.10 4.2.7.2.686 [id number] 107 [id number] [facility] 2024-05-11 22:57:00 2024-05-12 04:57:00 Outpatient X SEAN ROBISON RICKI, SEAN GIBSON [place] [id number] [facility] 2024-05-11 22:57:00 2024-05-12 04:57:00 Emergency Sean Robison [facility] 1.2.840.114 350.1.13.10 4.2.7.2.686 [id number] [facility] 2024-05-11 13:30:00 2024-05-11 14:14:08 Outpatient R LESLIE CASTELLANOS [facility] [id number] [facility] 2024-05-11 13:30:00 2024-05-11 14:14:08 Routine Visit Leslie Castellanos [facility] MANAGER DOCUMENT [facility] 1.2840.114 350.1.13.10 4.2.7.2.686 [id number] 107 [id number] [facility] 2024-05-11 00:00:00 2024-05-11 10:08:13 Aramis Bowers [facility] 1.2.840.114 350.1.13.10 4.2.7.2.686 [id number] [facility] 2024-05-11 00:00:00 2024-05-11 09:58:48 Aramis Bowers [facility] 1.2.840.114 350.1.13.10 4.2.7.2.686 [id number] [id number] [facility] 2024-05-05 00:00:00 2024-05-05 14:52:07 Patient Secure Msg Leslie Castellanos [facility] MANAGER DOCUMENT [facility] 1.2.840.114 350.1.13.10 4.2.7.2.686 [id number] 107 [id number] [facility] 2024 08:45:00 2024 09:05:21 Outpatient R LESLIE CASTELLANOS [facility] [id number] [facility] 2024 08:45:00 2024 09:05:21 Routine Visit Leslie Castellanos [facility] MANAGER DOCUMENT [facility] 1.2.840.114 350.1.13.10 4.2.7.2.686 [id number] 107 [id number] [facility] 2024-04-24 01:43:00 2024-04-24 04:30:00 Outpatient P NATY-VANESSA S, LUZ MARIA NATY-VANESSA S, LUZ MARIA [facility] [place] [id number] [facility] 2024-04-24 01:43:00 2024-04-24 04:30:00 Hospital Encounter Luz Maria Vogel Christopher [facility] 1.2.840.114 350.1.13.10 4.2.7.2.686 [id number] [id number] [facility] 2024-04-20 08:15:00 2024-04-20 08:30:00 Routine Visit Leslie Castellanos [facility] MANAGER DOCUMENT [facility] 1.2.840.114 350.1.13.10 4.2.7.2.686 [id number] 107 [id number] [facility] 2024-04-20 08:15:00 2024-04-20 08:15:00 Outpatient R LESLIE CASTELLANOS [facility] [id number] [facility] 2024-04-08 00:00:00 2024-04-08 07:02:39 Case Management Carla Vaughn [facility] MANAGER DOCUMENT [facility] 1..840.114 350.1.13.10 4.2.7.2.686 [id number] 107 [id number] [facility] 2024-04-07 13:30:00 2024-04-07 13:51:14 Outpatient R NAIR ERVIN BRITO [facility] [id number] [facility] 2024-04-07 13:30:00 2024-04-07 13:51:14 Burglar Alarm Mechanic Visit 1, [facility] Room Carolyn Osmar latoniaErvin [facility] MANAGER DOCUMENT [facility]ERNAL & [facility]ILD [facility] 1.840.114 350.1.13.10 4.2.7.2.686 [id number] [facility] 2024-04-06 08:15:00 2024-04-06 09:13:19 Outpatient R LESLIE CASTELLANOS [facility] [id number] [facility] 2024-04-06 08:15:00 2024-04-06 09:13:19 Routine Visit Leslie Castellanos [facility] MANAGER DOCUMENT [facility] 1..840.114 350.1.13.10 4.2.7.2.686 [id number] 107 [id number] [facility] 2024-03-29 16:44:00 2024-03-29 18:27:00 Outpatient X ALFONSO-VANESSA S, LUZ MARIA ALFONSO-VANESSA S, LUZ MARIA [facility] [place] [id number] [facility] 2024-03-29 16:44:00 2024-03-29 18:27:00 Emergency Alfonso-Vanessa s, Luz Maria [facility] 1..840.114 350.1.13.10 4.2.7.2.686 [id number] [facility] 2024-03-23 08:15:00 2024-03-23 08:51:12 Outpatient R LESLIE CASTELLANOS [facility] [id number] [facility] 2024-03-23 08:15:00 2024-03-23 08:51:12 Routine Visit Leslie Castellanos [facility] MANAGER DOCUMENT [facility] 1.2.840.114 350.1.13.10 4.2.7.2.686 [id number] 107 [id number] [facility] 2024-03-17 22:55:00 2024-03-18 00:55:00 Outpatient X NAVEEN PATEL VIEN [facility] [place] [id number] [facility] 2024-03-17 22:55:00 2024-03-18 00:55:00 Emergency Naveen Patel [facility] 1..840.114 350.1.13.10 4.2.7.2.686 [id number] [id number] [facility] 2024-03-17 12:30:00 2024-03-17 12:45:00 Routine Visit Leslie Castellanos [facility] MANAGER DOCUMENT [facility] 1.840.114 350.1.13.10 4.2.7.2.686 [id number] 107 [id number] [facility] 2024-03-17 12:30:00 2024-03-17 12:30:00 Outpatient R LESLIE CASTELLANOS [facility] [id number] [facility] 2024-03-17 00:00:00 2024-03-17 10:09:10 Telephone Leslie Castellanos [facility] MANAGER DOCUMENT [facility] 1.840.114 350.1.13.10 4.2.7.2.686 [id number] 107 [id number] [facility] 2024-03-09 00:00:00 2024-03-11 06:27:23 Telephone Provider, Pedro Bella [facility] MANAGER DOCUMENT [facility] 1.840.114 350.1.13.10 4.2.7.2.686 [id number] 107 [id number] [facility] 2024-03-09 09:00:00 2024-03-09 09:35:22 Outpatient TWILA PRINCE JELISA [facility] [id number] [facility] 2024-03-09 09:00:00 2024-03-09 09:35:22 Routine Visit Provider, Twila Hendricks [facility] MANAGER DOCUMENT [facility] 1.840.114 350.1.13.10 4.2.7.2.686 [id number] 107 [id number] [facility] 2024-02-04 00:00:00 2024-03-07 18:21:44 Patient Secure Msg Doctor Unassigned, [place] [facility] 1.0.114 350.1.13.10 4.2.7.2.686 [id number] [facility] 2024-03-04 00:00:00 2024-03-04 16:35:43 Abstract Leslie Castellanos [facility] MANAGER DOCUMENT [facility] .0.114 350.1.13.10 4.2.7.2.686 [id number] 107 [id number] [facility] 2024-03-02 10:30:00 2024-03-02 11:00:00 Burglar Alarm Mechanic Visit Ultrasound, Sean Walters [facility] MANAGER DOCUMENT [facility] .0.114 350.1.13.10 4.2.7.2.686 [id number] [facility] 2024-03-02 10:30:00 2024-03-02 10:30:00 Outpatient SEAN JASSO SANGEETA JAIN, SANGEETA [facility] [id number] [facility] 2024-02-26 10:00:00 2024-02-26 10:30:05 Outpatient LESLIE BOWER [facility] [id number] [facility] 2024-02-26 10:00:00 2024-02-26 10:30:05 Routine Visit Risk, Ang-Rmchp-N p/High Leslie Castellanos [facility] MANAGER DOCUMENT [facility] 1..840.114 350.1.13.10 4.2.7.2.686 [id number] 107 [id number] [facility] 2024-02-25 12:40:00 2024-02-25 12:40:00 Outpatient CLAUDIA FLAHERTY HOWARD [facility] [id number] [facility] 2024-02-24 15:30:00 2024-02-24 15:44:11 Outpatient LESLIE BOWER [facility] [id number] [facility] 2024-02-24 15:30:00 2024-02-24 15:44:11 Routine Visit Leslie Castellanos [facility] MANAGER DOCUMENT [facility] ..840.114 350.1.13.10 4.2.7.2.686 [id number] 107 [id number] [facility] 2024-02-20 14:00:00 2024-02-20 14:00:00 Outpatient DEXTER BASILIO KRISTIN [facility] [id number] [facility] 2024-02-19 13:30:00 2024-02-19 13:30:00 Outpatient DEXTER BASILIO [facility] [id number] [facility] 2024-02-14 00:00:00 2024-02-14 13:45:54 Eliza Plascencia [facility] ..840.114 350.1.13.10 4.2.7.2.686 [id number] [facility] 2024-02-13 00:34:00 2024-02-13 03:32:00 Outpatient P THOMAS HARDY COREY [facility] [place] [id number] [facility] 2024-02-13 00:34:00 2024-02-13 03:32:00 Hospital Encounter Thomas Hardy [facility] 1.0.114 350.1.13.10 4.2.7.2.686 [id number] [facility] 2024-02-12 10:15:00 2024-02-12 10:37:04 Outpatient R RANDI DO [facility] [id number] [facility] 2024-02-12 10:15:00 2024-02-12 10:37:04 Routine Visit Risk, Ang-Rmchp-N p/High Randi Do [facility] MANAGER DOCUMENT [facility] 1..114 350.1.13.10 4.2.7.2.686 [id number] 107 [id number] [facility] 2024-02-11 22:07:00 2024-02-12 00:57:00 Outpatient X NAVEEN PATEL VIEN [facility] [place] [id number] [facility] 2024-02-11 22:07:00 2024-02-12 00:57:[address] [facility] 1..114 350.1.13.10 4.2.7.2.686 [id number] [facility] 2024-01-03 00:00:00 2024-02-08 18:21:19 Patient Secure Msg Leslie Castellanos [facility] MANAGER DOCUMENT [facility] 1.0.114 350.1.13.10 4.2.7.2.686 [id number] 107 [id number] [facility] 2024-02-06 00:00:00 2024-02-06 14:00:07 Abstract Leslie Castellanos [facility] MANAGER DOCUMENT [facility] 1.840.114 350.1.13.10 4.2.7.2.686 [id number] 107 [id number] [facility] 2024-02-05 09:15:00 2024-02-05 10:07:12 Outpatient SULLY JOLLY [facility] [id number] [facility] 2024-02-05 09:15:00 2024-02-05 10:07:12 Burglar Alarm Mechanic Visit Ultrasound, Sully Nix [facility] 1.840.114 350.1.13.10 4.2.7.2.686 [id number] [facility] 2023-12-26 00:00:00 2024-02-01 18:25:03 Patient Secure Msg Doctor Unassigned, [place] [facility] .0.114 350.1.13.10 4.2.7.2.686 [id number] [facility] 2024-01-30 10:15:00 2024-01-30 10:52:57 Outpatient DEXTER BASILIO [facility] [id number] [facility] 2024-01-30 10:15:00 2024-01-30 10:52:57 Routine Visit Risk, YonathanchjuanyN p/High Dexter Mcconnell [facility] .840.114 350.1.13.10 4.2.7.2.686 [id number] 107 [id number] [facility] 2024-01-28 00:00:00 2024-01-28 14:32:43 Telephone Leslie Castellanos [facility] MANAGER DOCUMENT [facility] 1..840.114 350.1.13.10 4.2.7.2.686 [id number] 107 [id number] [facility] 2024-01-27 10:30:00 2024-01-27 11:15:23 Outpatient R ALTHEAPATEL SAHAILOLA [facility] [id number] [facility] 2024-01-27 10:30:00 2024-01-27 11:15:23 Routine Visit Leslie Castellanos Patricio [facility] MANAGER DOCUMENT [facility] 1..840.114 350.1.13.10 4.2.7.2.686 [id number] 107 [id number] [facility] 2024-01-24 23:58:00 2024-01-25 01:07:00 Outpatient X ADDAISY GONSALES [facility] [id number] [facility] 2024-01-24 23:58:00 2024-01-25 01:07:00 Emergency Adum, Daisy Karley [facility] 1.840.114 350.1.13.10 4.2.7.2.686 [id number] [facility] 2024-01-15 10:00:00 2024-01-15 10:36:33 Outpatient DEXTER BASILIO [facility] [id number] [facility] 2024-01-15 10:00:00 2024-01-15 10:36:33 Routine Visit Risk, Ang-Rmchp-N p/High Dexter Mcconnell N [facility] MANAGER DOCUMENT [facility] 1..840.114 350.1.13.10 4.2.7.2.686 [id number] 107 [id number] [facility] 2024-01-15 09:15:00 2024-01-15 09:15:00 Outpatient R RANDI DO [facility] [id number] [facility] 2024-01-01 10:15:00 2024-01-01 10:48:59 Outpatient R RANDI DO [facility] [id number] [facility] 2024-01-01 10:15:00 2024-01-01 10:48:59 Office Visit Risk, Ang-Rmchp-N p/High Randi Do [facility] MANAGER DOCUMENT [facility] 1.2.840.114 350.1.13.10 4.2.7.2.686 [id number] 107 [id number] [facility] 2023-12-31 00:00:00 2023-12-31 15:56:17 Telephone Leslie Castellanos [facility] MANAGER DOCUMENT [facility] 1.2.840.114 350.1.13.10 4.2.7.2.686 [id number] 107 [id number] [facility] 2023-12-31 00:00:00 2023-12-31 13:41:30 Telephone Leslie Castellanos [facility] MANAGER DOCUMENT [facility] 1.20.114 350.1.13.10 4.2.7.2.686 [id number] 107 [id number] [facility] 2023-12-30 08:15:00 2023-12-30 09:24:22 Outpatient R LESLIE CASTELLANOS [facility] [id number] [facility] 2023-12-30 08:15:00 2023-12-30 09:24:22 Routine Visit Leslie Castellanos [facility] MANA[facility] DOCUMENT [facility] 1.20.114 350.1.13.10 4.2.7.2.686 [id number] 107 [id number] [facility] 2023-12-25 00:00:00 2023-12-25 15:45:03 Telephone Leslie Castellanos [facility] MANAGER DOCUMENT [facility] 1.2.840.114 350.1.13.10 4.2.7.2.686 [id number] 107 [id number] [facility] 2023-12-10 13:30:00 2023-12-10 14:18:53 Outpatient R ALTHEALESLIE SAHA [facility] [id number] [facility] 2023-12-10 13:30:00 2023-12-10 14:18:53 Routine Visit Altheayuliajulianna Leslie Curry [facility] MANAGER DOCUMENT [facility] 1..114 350.1.13.10 4.2.7.2.686 [id number] 107 [id number] [facility] 2023-11-29 00:00:00 2023-11-29 00:00:00 Abstract AltheaLeslie saha Patricio [facility] MANAGER DOCUMENT [facility] 1..114 350.1.13.10 4.2.7.2.686 [id number] 107 [id number] [facility] 2023-11-27 11:00:00 2023-11-27 11:00:00 Outpatient P [facility] [id number] [facility] 2023-11-27 00:00:00 2023-11-27 00:00:00 Telephone Emanuel Leslie Curry [facility] MANAGER DOCUMENT [facility] 1..114 350.1.13.10 4.2.7.2.686 [id number] 107 [id number] [facility] 2023-11-26 10:00:00 2023-11-26 10:28:29 Outpatient P ERVIN BIRMINGHAM [facility] [id number] [facility] 2023-11-26 10:00:00 2023-11-26 10:28:29 Burglar Alarm Mechanic Visit Ultrasound, [facility] Ervin Birmingham [facility] MANAGER DOCUMENT [facility] 1.84.114 350.1.13.10 4.2.7.2.686 [id number] [facility] 2023-11-21 08:30:00 2023-11-21 08:30:00 Outpatient R LESLIE CASTELLANOS [facility] [id number] [facility] 2023-11-20 15:00:00 2023-11-20 15:00:00 Outpatient P [facility] [id number] [facility] 2023-11-20 00:00:00 2023-11-20 00:00:00 Abstract Leslie Castellanos [facility] MA[facility] DOCUMENT [facility] 1.2.840.114 350.1.13.10 4.2.7.2.686 [id number] [facility] 2023-11-15 00:00:00 2023-11-15 00:00:00 Telephone Leslie Castellanos [facility] DOCUMENT [facility] 1.2.840.114 350.1.13.10 4.2.7.2.686 [id number] [facility] 2023-11-14 09:45:00 2023-11-14 11:19:33 Initial Visit Leslie Castellanos Brenda A [facility] 1..840.114 350.1.13.10 4.2.7.2.686 [id number] [facility] 2023-11-14 09:15:00 2023-11-14 09:46:54 Outpatient R CARLA VAUGHN [facility] [id number] [facility] 2023-11-11 21:41:00 2023-11-11 23:50:00 Emergency X ARNOLD BLUM [facility] ERT [id number] [facility] 2023-11-11 21:41:00 2023-11-11 23:50:[address] [facility] 1.840.114 350.1.13.10 4.2.7.2.686 [id number] [facility] 2023-11-04 10:36:00 2023-11-04 13:26:00 Emergency X Lawson COCHRAN [facility] ERT [id number] [facility] 2023-11-01 00:00:00 2023-11-01 00:00:00 Telephone Sydney Lubin [facility] 1.0.114 350.1.13.10 4.2.7.2.686 [id number] [facility] 2023-10-31 08:00:00 2023-10-31 08:00:00 Outpatient R [facility] [id number] [facility] 2023-10-28 13:45:00 2023-10-28 13:45:00 Outpatient R AKINSILESLIE SANTANA [facility] [id number] [facility] 2023-10-28 13:15:00 2023-10-28 13:15:00 Outpatient R [facility] [id number] [facility] 2023-10-24 11:40:00 2023-10-24 16:53:00 Emergency X PARVEZ NGUYENS [facility] ERT [id number] [facility] 2023-10-24 11:40:00 2023-10-24 16:53:[address] [facility] 1.840.114 350.1.13.10 4.2.7.2.686 [id number] [facility] 2023-10-24 00:00:00 2023-10-24 00:00:00 Telephone Pgy3 [facility] 1.0.114 350.1.13.10 4.2.7.2.686 [id number] [facility] 2023-09-17 00:00:00 2023-09-17 00:00:00 Outpatient R LUBIN, LUCY [facility] [id number] [facility] 2023-09-13 10:00:00 2023-09-13 10:00:00 Outpatient R SANDRINE ARRINGTON ASHLEY [facility] [id number] [facility] 2023-09-02 00:00:00 2023-09-02 00:00:00 Outpatient R TRISTIAN SYDNEY [facility] [id number] [facility] 2023-08-23 00:00:00 2023-08-23 00:00:00 Patient Secure Msg Doctor Unassigned, [place] [facility] 1..840.114 350.1.13.10 4.2.7.2.686 [id number] [facility] 2023-08-20 14:30:00 2023-08-20 15:39:40 Outpatient R TRISTIAN SYDNEY [facility] [id number] [facility] 2023-08-20 14:30:00 2023-08-20 15:39:40 [facility]..[facility].114 350.1.13.10 4.2.7.2.686 [id number] [facility] 2023-08-13 00:00:00 2023-08-13 00:00:00 Telephone Gretchen Murray [facility] 1..840.114 350.1.13.10 4.2.7.2.686 [id number] [facility] 2023-07-18 08:30:00 2023-07-18 08:30:00 Outpatient ELIZA SHANNON [facility] [id number] [facility] 2023-04-24 10:13:00 2023-04-24 12:05:00 Emergency X RAHEL DICKSON [facility] ERT [id number] [facility] 2023-04-24 10:13:00 2023-04-24 12:05:[address] [facility] 1.2.840.114 350.1.13.10 4.2.7.2.686 [id number] [facility] 2023-04-18 11:00:00 2023-04-18 11:09:48 Outpatient R ELIZA OLIVIER [facility] [id number] [facility] 2023-04-18 11:00:00 2023-04-18 11:09:48 Office Visit Soy [facility] BUILDING 1.2.840.114 350.1.13.10 4.2.7.2.686 [id number] [facility] 2023-04-04 00:00:00 2023-04-04 00:00:00 [facility] 1.2.840.114 350.1.13.10 4.2.7.2.686 [id number] [facility] 2023-04-01 13:53:27 2023-04-01 23:59:00 Outpatient R ELIZA OLIVIER [facility] [id number] [facility] 2023-04-01 13:45:00 2023-04-01 23:59:00 Hospital Encounter Carlos Olivierssica [facility] 1.2.840.114 350.1.13.10 4.2.7.2.686 [id number] [facility] 2023-04-01 13:30:00 2023-04-01 13:36:46 Burglar Alarm Mechanic Visit 2, Adc Lab Soy [facility] BUILDING 1.2.840.114 350.1.13.10 4.2.7.2.686 [id number] [facility] 2023-04-01 13:00:00 2023-04-01 13:28:27 Office Visit Eliza Olivier [facility] 1.2.840.114 350.1.13.10 4.2.7.2.686 [id number] [id number] [facility] 2023-03-14 11:00:00 2023-03-14 11:00:00 Outpatient R ELIZA OLIVIER [facility] [id number] [facility] 2023-03-09 00:00:00 2023-03-09 00:00:00 [facility] 1..840.114 350.1.13.10 4.2.7.2.686 [id number] [id number] [facility] 2023-02-14 10:00:00 2023-02-14 10:27:33 Outpatient Ivan OLIVIERELIZA [facility] [id number] [facility] 2023-02-14 10:00:00 2023-02-14 10:27:33 Office Visit Eliza Olivier [facility] 1.2.840.114 350.1.13.10 4.2.7.2.686 [id number] [facility] 2023-01-23 14:30:00 2023-01-23 14:30:00 Outpatient R LESLIE CASTELLANOS [facility] [id number] [facility] 2023-01-10 00:00:00 2023-01-10 00:00:00 Outpatient R SOY ELIZA [facility] [id number] [facility] 2023-01-04 00:00:00 2023-01-04 00:00:00 Telephone Leslie Castellanos [facility] MANAGER DOCUMENT [facility] & [facility] 1..840.114 350.1.13.10 4.2.7.2.686 [id number] 107 [id number] [facility] 2023-01-03 10:15:00 2023-01-03 10:30:00 Burglar Alarm Mechanic Visit 2, Adc Lab Carlos Olivierssica [facility] BUILDING 1.284.114 350.1.13.10 4.2.7.2.686 [id number] [facility] 2023-01-03 09:30:00 2023-01-03 10:13:42 Outpatient R ELIZA OLIVIER [facility] [id number] [facility] 2023-01-03 09:30:00 2023-01-03 10:13:42 Office Visit Carlos Olivierssica [facility] 1.84.114 350.1.13.10 4.2.7.2.686 [id number] [facility] 2023-01-03 00:00:00 2023-01-03 00:00:00 Telephone Leslie Castellanos [facility] MANAGER DOCUMENT [facility]ER[facility] & [facility] 1.84.114 350.1.13.10 4.2.7.2.686 [id number] 107 [id number] [facility] 2023-01-01 15:15:00 2023-01-01 15:15:00 Outpatient R LESLIE CASTELLANOS [facility] [id number] [facility] 2023-01-01 08:30:00 2023-01-01 08:30:00 Outpatient R OLIVIERELIZA [facility] [id number] [facility] 2022-12-27 19:33:00 2022-12-27 21:29:00 Emergency X YAW BRO [facility] ERT [id number] [facility] 2022-12-27 19:33:00 2022-12-27 21:29:[address] [facility] 1.840.114 350.1.13.10 4.2.7.2.686 [id number] [facility] 2022-12-27 19:00:00 2022-12-27 19:20:00 Nurse Visit Nurse, Arcadio Cardenas [facility] Unknown, Attending [facility] CAROLYN?[facility] 1..114 350.1.13.10 4.2.7.2.686 [id number] [facility] 2022-12-27 19:00:00 2022-12-27 19:00:00 Outpatient R UNKNOWN, ATTENDING [facility] [id number] [facility] 2022-12-27 19:00:00 2022-12-27 19:00:00 Outpatient R BAILEE LIZ [facility] [id number] [facility] 2022-12-25 00:00:00 2022-12-25 00:00:00 Telephone Leslie Castellanos [facility] MANAGER DOCUMENT [facility] 1..114 350.1.13.10 4.2.7.2.686 [id number] 107 [id number] [facility] 2022-12-20 10:00:00 2022-12-20 10:58:56 Outpatient R LESLIE CASTELLANOS [facility] [id number] [facility] 2022-12-20 10:00:00 2022-12-20 10:58:56 Office Visit Leslie Castellanos [facility] MANAGER DOCUMENT [facility] 1..114 350.1.13.10 4.2.7.2.686 [id number] 107 [id number] [facility] 2022-12-20 00:00:00 2022-12-20 00:00:00 Orders Only Doctor Unassigned, [place] [facility] 1..114 350.1.13.10 4.2.7.2.686 [id number] [facility] 2022-09-24 00:00:00 2022-09-24 00:00:00 Case Management Carla Vaughn [facility] MANAGER DOCUMENT [facility] 1.2.840.114 350.1.13.10 4.2.7.2.686 [id number] 107 [id number] [facility] 2022-09-21 09:30:00 2022-09-21 10:18:05 Outpatient R CARLA VAUGHN [facility] [id number] [facility] 2022-09-21 09:30:00 2022-09-21 10:18:05 Office Visit Provider, Arcadio-Rmchp Temp Carla Vaughn [facility] MANAGER DOCUMENT [facility] 1.2.840.114 350.1.13.10 4.2.7.2.686 [id number] 107 [id number] [facility] 2022-09-21 00:00:00 2022-09-21 00:00:00 Letter (Out) Carla Vaughn [facility] MANAGER DOCUMENT [facility] 1..840.114 350.1.13.10 4.2.7.2.686 [id number] 107 [id number] [facility] 2022-09-07 08:30:00 2022-09-07 08:30:00 Outpatient R ROSALES CHAPIN EMILY [facility] [id number] [facility] 2022 13:40:00 2022 13:40:00 Outpatient R UNKNOWN, MELINDA [facility] [id number] [facility] 2022-02-15 09:00:00 2022-02-15 09:18:29 Office Visit Jacob Barrientos [facility] 1.2.840.114 350.1.13.10 4.2.7.2.686 [id number] 107 [id number] [facility] 2022-02-15 09:00:00 2022-02-15 09:18:29 Outpatient JACOB BAUTISTA [facility] [id number] [facility] 2022-02-15 09:00:00 2022-02-15 09:00:00 Outpatient R JACOB BARRIENTOS [facility] [id number] [facility] 2022-02-15 09:00:00 2022-02-15 09:00:00 Outpatient CIERRA BAUTISTASHELL [facility] [id number] [facility] 2022-01-12 00:00:00 2022-01-12 00:00:00 Telephone Raymundo Barrientoscarlos Love [facility] MANAGER DOCUMENT [facility] 1.2.840.114 350.1.13.10 4.2.7.2.686 [id number] 107 [id number] [facility] 2022-01-11 15:15:00 2022-01-11 16:08:32 Office Visit Missael Barrientosprecious Love [facility] MANAGER DOCUMENT [facility] 1.2.840.114 350.1.13.10 4.2.7.2.686 [id number] 107 [id number] [facility] 2022-01-11 15:15:00 2022-01-11 16:08:32 Outpatient CIERRA BAUTISTASHELL [facility] [id number] [facility] 2022-01-11 15:15:00 2022-01-11 15:15:00 Outpatient Ivan BARRIENTOS JACOB [facility] [id number] [facility] 2021-11-16 10:30:00 2021-11-16 10:30:00 Outpatient R [facility] [id number] [facility] 2021-11-16 08:00:00 2021-11-16 08:20:47 Outpatient Ivan BARRIENTOS, JACOB [facility] [id number] [facility] 2021-11-16 08:00:00 2021-11-16 08:20:47 [facility] MANAGER DOCUMENT [facility] 1.2840.114 350.1.13.10 4.2.7.2.686 [id number] 107 [id number] [facility] 2021-11-03 00:00:00 2021-11-03 00:00:00 Telephone Jacob Barrientos [facility] MANAGER DOCUMENT [facility] 1.20.114 350.1.13.10 4.2.7.2.686 [id number] 107 [id number] [facility] 2021-11-02 10:30:00 2021-11-02 11:58:09 Office Visit Jacob Barrientos [facility] MANAGER DOCUMENT [facility] 1.2840.114 350.1.13.10 4.2.7.2.686 [id number] 107 [id number] [facility] 2021-11-02 10:30:00 2021-11-02 11:58:09 Outpatient R CIERRA BARRIENTOSJHONYCARLOS [facility] [id number] [facility] 2021-11-02 10:30:00 2021-11-02 11:58:09 Outpatient CIERRA BAUTISTAJHONYCARLOS [facility] [id number] [facility] 2021-11-02 10:30:00 2021-11-02 10:30:00 Outpatient CIERRA BAUTISTAJHONYFANYPrecious [facility] [id number] [facility] 2021-11-02 10:30:00 2021-11-02 10:30:00 Outpatient CIERRA BAUTISTACARLOS [facility] [id number] [facility] 2021-11-02 00:00:00 2021-11-02 00:00:00 Orders Only Doctor Unassigned, [place] [facility] 1.2840.114 350.1.13.10 4.2.7.2.686 [id number] [facility] 2021-10-16 19:47:00 2021-10-16 20:32:00 Emergency X ALIVIA LEE [facility] ERT [id number] [facility] 2021-10-16 19:47:00 2021-10-16 20:32:[address] Lee [facility] 1.840.114 350.1.13.10 4.2.7.2.686 [id number] [facility] 2021-08-01 08:30:00 2021-08-01 09:21:32 Outpatient R JACOB BARRIENTOS [facility] [id number] [facility] 2021-08-01 08:30:00 2021-08-01 09:21:32 Office Visit Jacob Barrientos [facility] MANAGER DOCUMENT [facility]ERNAL & [facility] 1.840.114 350.1.13.10 4.2.7.2.686 [id number] 107 [id number] [facility] 2021-08-01 00:00:00 2021-08-01 00:00:00 Orders Only Doctor Unassigned, [place] [facility] 1.2840.114 350.1.13.10 4.2.7.2.686 [id number] [facility] 2021-07-31 00:00:00 2021-07-31 00:00:00 Telephone Jacob Barrientos [facility] MANAGER DOCUMENT [facility] & [facility] 1.840.114 350.1.13.10 4.2.7.2.686 [id number] 107 [id number] [facility] 2021-06-13 10:30:00 2021-06-13 10:58:17 Outpatient R CINDY APARICIO [facility] [id number] [facility] 2021-06-13 10:01:19 2021-06-13 10:58:17 Office Visit Cindy Aparicio [facility] MANAGER DOCUMENT [facility] & CHILD [facility] 1.840.114 350.1.13.10 4.2.7.2.686 [id number] [facility] 2021-06-13 10:30:00 2021-06-13 10:30:00 Outpatient R CINDY APARICIO [facility] [id number] [facility] 2021-06-06 00:00:00 2021-06-06 00:00:00 Telephone Jacob Barrientos [facility] MANAGER DOCUMENT [facility] MATERNAL & [facility] 1.840.114 350.1.13.10 4.2.7.2.686 [id number] 107 [id number] [facility] 2021-04-10 10:00:00 2021-04-10 10:00:00 Outpatient R LESLIE CASTELLANOS [facility] [id number] [facility] 2021-03-31 00:00:00 2021-03-31 00:00:00 Letter (Out) Rayne Jones [facility] 1..114 350.1.13.10 4.2.7.2.686 [id number] [facility] 2021-03-30 12:30:00 2021-03-30 12:30:00 Outpatient R NI ALVAREZ [facility] [id number] [facility] 2020-12-30 09:29:12 2020-12-30 10:10:09 Office Visit Jacob Barrientos [facility] MANAGER DOCUMENT [facility] 1.840.114 350.1.13.10 4.2.7.2.686 [id number] 107 [id number] [facility] 2020-12-30 09:29:12 2020-12-30 10:10:09 Office Visit Jacob Barrientos [facility] MANAGER DOCUMENT [facility] 1.2840.114 350.1.13.10 4.2.7.2.686 [id number] 107 [id number] 2020-12-30 09:30:00 2020-12-30 09:30:00 Outpatient LESLIE BOWER [facility] [id number] [facility] 2020-12-30 08:45:00 2020-12-30 08:45:00 Outpatient R JACOB BARRIENTOS [facility] [id number] [facility] 2020-12-16 08:57:28 2020-12-16 09:27:28 Office Visit Leslie Castellanos [facility] MANAGER DOCUMENT [facility] ..114 350.1.13.10 4.2.7.2.686 [id number] 107 [id number] [facility] 2020-12-16 09:00:00 2020-12-16 09:00:00 Outpatient R LESLIE CASTELLANOS [facility] [id number] [facility] 2020-12-16 00:00:00 2020-12-16 00:00:00 Orders Only Doctor Unassigned, [place] [facility] .114 350.1.13.10 4.2.7.2.686 [id number] [facility] 2020-12-02 00:00:00 2020-12-02 00:00:00 Telephone Leslie Castellanos [facility] MANAGER DOCUMENT [facility] 1..114 350.1.13.10 4.2.7.2.686 [id number] 107 [id number] [facility] 2020-11-29 15:31:01 2020-11-29 15:46:01 Nurse Visit Visit, Ang-Rmchp Nurse Jacob Barrientos [facility] MANAGER DOCUMENT [facility] 1..114 350.1.13.10 4.2.7.2.686 [id number] 107 [id number] [facility] 2020-11-29 15:30:00 2020-11-29 15:30:00 Outpatient R JACOB BARRIENTOS [facility] [id number] [facility] 2020-11-29 00:00:00 2020-11-29 00:00:00 Telephone Jacob Barrientos [facility] MANAGER DOCUMENT [facility] 1.840.114 350.1.13.10 4.2.7.2.686 [id number] 107 [id number] [facility] 2020-11-02 10:16:29 2020-11-02 11:05:27 Office Visit Jacob Barrientos [facility] MANAGER DOCUMENT [facility] 1.840.114 350.1.13.10 4.2.7.2.686 [id number] 107 [id number] [facility] 2020-11-02 10:15:00 2020-11-02 10:15:00 Outpatient R JACOB BARRIENTOS [facility] [id number] [facility] 2020-11-02 00:00:00 2020-11-02 00:00:00 Orders Only Doctor Unassigned, [place] [facility] 1.840.114 350.1.13.10 4.2.7.2.686 [id number] [facility] 2020-11-01 15:00:00 2020-11-01 15:00:00 Outpatient R JACOB BARRIENTOS [facility] [id number] [facility] 2020-11-01 00:00:00 2020-11-01 00:00:00 Patient Outreach Joel Matt [facility] PRIMARY CARE JACQUELINE 1.840.114 350.1.13.10 4.2.7.2.686 [id number] [facility] 2020-07-13 00:00:00 2020-07-13 00:00:00 Patient Secure Msg Doctor Unassigned, [place] [facility] 1.84.114 350.1.13.10 4.2.7.2.686 [id number] [facility] 2020-07-04 00:00:00 2020-07-04 00:00:00 Refill Emanuel Lselie C [facility] MANAGER DOCUMENT [facility] MATERNAL & [facility] 1.840.114 350.1.13.10 4.2.7.2.686 [id number] 107 [id number] [facility] 2020-06-13 09:15:00 2020-06-13 09:15:00 Outpatient R LESLIE CASTELLANOS [facility] [id number] [facility] 2020-06-13 09:15:00 2020-06-13 09:15:00 Outpatient R LESLIE CASTELLANOS [facility] [id number] [facility] 2020-06-01 00:00:00 2020-06-01 00:00:00 Refill Emanuel Leslie Patricio [facility] MANAGER DOCUMENT [facility] 1..114 350.1.13.10 4.2.7.2.686 [id number] 107 [id number] [facility] 2020-05-30 00:00:00 2020-05-30 00:00:00 Elena Sanchez [facility] Professleyla [facility] .84.114 350.1.13.10 4.2.7.2.686 [id number] [facility] 2020-05-27 10:30:00 2020-05-27 10:30:00 Outpatient R LESLIE CASTELLANOS [facility] [id number] [facility] 2020-05-27 10:30:00 2020-05-27 10:30:00 Outpatient R PATEL CASTELLANOSILOLA [facility] [id number] [facility] 2020-05-10 11:18:40 2020-05-10 11:38:40 Urgent Care Provider, [facility] Elena Hatfield [facility] Professio nal Office Building One .840.114 350.1.13.10 4.2.7.2.686 [id number] [facility] 2020-05-10 11:20:00 2020-05-10 11:20:00 Outpatient R ELENA HATFIELD [facility] [id number] [facility] 2020-05-09 00:00:00 2020-05-09 00:00:00 Telephone Jacob Barrientos [facility] MANAGER DOCUMENT [facility] 1..840.114 350.1.13.10 4.2.7.2.686 [id number] 107 [id number] [facility] 2020-03-31 09:26:23 2020-03-31 10:13:41 Office Visit Leslie Castellanos [facility] MANAGER DOCUMENT [facility] 1..840.114 350.1.13.10 4.2.7.2.686 [id number] 107 [id number] [facility] 2020-03-31 09:00:00 2020-03-31 09:00:00 Outpatient R LESLIE CASTELLANOS [facility] [id number] [facility] 2020-03-11 00:00:00 2020-03-11 00:00:00 Telephone Leslie Castellanos [facility] MANAGER DOCUMENT [facility] 1..840.114 350.1.13.10 4.2.7.2.686 [id number] 107 [id number] [facility] 2020-03-10 14:30:00 2020-03-10 14:30:00 Outpatient R LESLIE CASTELLANOS [facility] [id number] [facility] 2020-03-10 10:09:10 2020-03-10 11:09:52 Office Visit Leslie Castellanos [facility] MANAGER DOCUMENT [facility] 1.2.840.114 350.1.13.10 4.2.7.2.686 [id number] 107 [id number] [facility] 2020-03-07 00:00:00 2020-03-07 00:00:00 Telephone Jacob Barrientos [facility] MANAGER DOCUMENT [facility] 1.2.840.114 350.1.13.10 4.2.7.2.686 [id number] 107 [id number] [facility] 2019-12-29 13:01:04 2019-12-30 11:33:02 Initial Visit Jacob Barrientos [facility] MANAGER DOCUMENT [facility] 1.2.840.114 350.1.13.10 4.2.7.2.686 [id number] [facility] 2019-12-30 00:00:00 2019-12-30 00:00:00 Patient Secure Msg Doctor Unassigned, [place] [facility] MANAGER DOCUMENT [facility] 1.2.840.114 350.1.13.10 4.2.7.2.686 [id number] [facility] 2019-12-30 00:00:00 2019-12-30 00:00:00 Patient Secure Msg Doctor Unassigned, [place] [facility] MANA[facility] DOCUMENT [facility] 1.2.840.114 350.1.13.10 4.2.7.2.686 [id number] [facility] 2019-12-29 14:04:59 2019-12-29 14:20:25 Office Visit Jacob Barrientos [facility] MANAGER DOCUMENT [facility] 1.2.840.114 350.1.13.10 4.2.7.2.686 [id number] 107 [id number] [facility] 2019-12-29 12:45:00 2019-12-29 12:45:00 Outpatient R FLOYDJACOB [facility] [id number] [facility] 2019-12-15 07:30:05 2019-12-15 08:20:00 Emergency Fletcher Ramesh [facility] 1..114 350.1.13.10 4.2.7.2.686 [id number] [facility] 2019-12-14 00:00:00 2019-12-14 00:00:00 Patient Secure Msg Ethel Marie [facility] MANAGER DOCUMENT [facility] 1..114 350.1.13.10 4.2.7.2.686 [id number] 107 [id number] [facility] 2019-11-30 08:30:00 2019-11-30 08:30:00 Outpatient R [facility] [id number] [facility] 2019-11-27 09:30:00 2019-11-27 09:30:00 Outpatient R [facility] [id number] [facility] 2019-11-26 09:00:00 2019-11-26 09:00:00 Outpatient R [facility] [id number] [facility] 2019-11-26 00:00:00 2019-11-26 00:00:00 Telephone Jacob Barrientos [facility] MANAGER DOCUMENT [facility] 1.84.114 350.1.13.10 4.2.7.2.686 [id number] [facility] 2019-11-24 09:30:00 2019-11-24 09:30:00 Outpatient R LESLIE CASTELLANOS [facility] [id number] [facility] 2019-10-27 00:00:00 2019-10-27 00:00:00 Patient Secure Msg Jacob Barrientos [facility] MANAGER DOCUMENT [facility] 1.20.114 350.1.13.10 4.2.7.2.686 [id number] 107 [id number] [facility] [facility] 2019-[facility]-16 10:45:40 2019-10-16 11:26:43 Office Visit AltheayuliajuliannaLeslie SCALISON MANAGER DOCUMENT [facility] 1.2.840.114 350.1.13.10 4.2.7.2.686 [id number] [facility] 2019-10-16 10:45:00 2019-10-16 10:45:00 Outpatient R ALTHEAYULIAJULIANNAPATELLESLIE [facility] [id number] [facility] 2019-10-07 12:51:31 2019-10-07 13:44:17 Office Visit AltheayuliajuliannaLeslie [facility] MANAGER DOCUMENT [facility] 1.2.840.114 350.1.13.10 4.2.7.2.686 [id number] [facility] 2019-10-07 13:00:00 2019-10-07 13:00:00 Outpatient R ALTHEAYULIAJULIANNALESLIE [facility] [id number] [facility] 2019-10-06 00:00:00 2019-10-06 00:00:00 Telephone AltheayuliajuliannaLeslie [facility] MANAGER DOCUMENT [facility] 1.2.840.114 350.1.13.10 4.2.7.2.686 [id number] [facility] 2019-10-02 14:07:49 2019-10-02 15:15:37 Office Visit EmanuelLeslie [facility] MANAGER DOCUMENT [facility] 1.2.840.114 350.1.13.10 4.2.7.2.686 [id number] [facility] 2019-08-25 09:57:53 2019-08-25 13:09:26 Office Visit EmanuelPatelLeslie C [facility] MANAGER DOCUMENT [facility] 1.2.840.114 350.1.13.10 4.2.7.2.686 [id number] [facility] 2019-08-25 00:00:00 2019-08-25 00:00:00 Orders Only Doctor Unassigned, [place] [facility] 1.2.840.114 350.1.13.10 4.2.7.2.686 [id number] [facility] 2019-08-25 00:00:00 2019-08-25 00:00:00 Letter (Out) Leslie Castellanos [facility] MANAGER DOCUMENT [facility] 1.2.840.114 350.1.13.10 4.2.7.2.686 [id number] [facility] 2019-03-05 22:28:42 2019-03-05 23:12:00 Emergency Alvin Pace [facility] 1.2.840.114 350.1.13.10 4.2.7.2.686 [id number] [facility] Results Test Description Test Time Test Comments Results Resul t Comments Source XR Ankle 3+ vw right 2025-04-26 03:35:51 RIGHT ANKLE AND RIGHT FOOT X-RAYS HISTORY: Foot and ankle pain after injury Ordering physician: OTONIEL GIBBS TECHNIQUE: ?3 views of the right ankle and 3 views of the right foot. COMPARISON: ?None RESULT:No evidence of acute fracture. ?The articular surfaces are preserved. ?Theankle mortise is intact. Mild lateral ankle edema. [facility] XR Foot 3+ vw right 2025-04-26 03:35:51 RIGHT ANKLE AND RIGHT FOOT X-RAYS HISTORY: Foot and ankle pain after injury Ordering physician: OTONIEL GIBBS TECHNIQUE: ?3 views of the right ankle and 3 views of the right foot. COMPARISON: ?None RESULT:No evidence of acute fracture. ?The articular surfaces are preserved. ?Theankle mortise is intact. Mild lateral ankle edema. [facility] [id number] 22:13:00* Test Item Value Reference Range Interpretation Comme nts POCT PREG (test code = 1605) Negative On board controls acceptable with C Line (test code = 3574) Yes POCT PREG LOT # (test code = 3572) [id number] POCT PREG TEST DATE ( test code = 3576) 08/20/2026 [facility] Specific [id number] 22:10:00* Test Item Value Reference Range Interpretation Comme nts POCT U SP GRAV (test code = 3255) 1.005 mg/dl 1.005-1.025 POCT PH U (test code = 3254) 7 mg/dl 5-8 POCT U LEUK EST (test code = 3263) + Negative - Negative POCT U NIT (test code = 3262) neg Negative - Negative POCT U PROT (test code = 3259) neg Negative - Negative POCT U GLU (test code = 3256) normal Negative - Negative POCT U KETONE (test code = 3258) neg Negative - Negative POCT U UROBILI (test code = 3260) normal 0.2-1 POCT U BILI (test code = 3261) neg Negative - Negative POCT U BLD (test code = 3257) neg Negative - Negative POCT U COLOR (test code = 3266) light yellow POCT U APPEAR (test code = 3267) clear [facility] HCG [id number] 04:12:03* Test Item Value Reference Range Interpretation Comme nts BETA HCG (test code = 1183993488) 14.88 See_Comment [Automated QBuya ge] The system which generated this result transmitted reference range: Non- female and male patients: <5 mIU/mL. The reference range was not used to interpret this result as normal/abnormal. VICENTE (test code = VICENTE) Gestational Age ?Range (mIU/mL) 1-10 ?Weeks ?25-44348128-98 Weeks ?35606-89110297-02 Weeks ?8947-33268161-24 Weeks ?8968-461774 Biotin has been reported to cause a negative bias, interpret results relative to patient's use of biotin. [facility] WITH [id number] 03:27:56* Test Item Value Reference Range Interpretation Comme nts WBC (test code = 6690-2) 10.36 4.30-11.10 RBC (test code = 789-8) 4.07 3.93-5.25 HGB (test code = 718-7) 9.9 g/dL 11.6-15.0 L HCT (test code = 4544-3) 32.6 % 35.7-45.2 L MCV (test code = 787-2) 80.1 fL 80.6-95.5 L MCH (test code = 785-6) 24.3 pg 25.9-32.8 L MCHC (test code = 786-4) 30.4 g/dL 31.6-35.1 L RDW-SD (test code = 96394-4) 45.1 fL 39.0-49.9 RDW-CV (test code = 788-0) 15.7 % 12.0-15.5 H PLT (test code = 777-3) 258 166-358 MPV (test code = 91495-5) 10.7 fL 9.5-12.9 NRBC/100 WBC (test code = 3443733699) 0 0.0-10.0 NRBC x10^3 (test code = 0624779468) See_Comment [Automated messa ge] The system which generated this result transmitted reference range: 10*3/?L. The reference range was not used to interpret this result as normal/abnormal. GRAN MAT (NEUT) % (test code = 770-8) 65.3 % IMM GRAN % (test code = 8515672732) 0.3 % LYMPH % (test code = 736-9) 21.4 % MONO % (test code = 5905-5) 7.2 % EOS % (test code = 713-8) 5.1 % BASO % (test code = 706-2) 0.7 % GRAN MAT x10^3(ANC) (test code = 0418036421) 6.76 10*3/uL 1.88-7.09 IMM GRAN x10^3 (test code = 0803159585) 0.03 10*3/uL 0.00-0.06 LYMPH x10^3 (test code = 731-0) 2.22 10*3/uL 1.32-3.29 MONO x10^3 (test code = 742-7) 0.75 10*3/uL 0.33-0.92 EOS x10^3 (test code = 711-2) 0.53 10*3/uL 0.03-0.39 H BASO x10^3 (test code = 704-7) 0.07 10*3/uL 0.01-0.07 Lab Interpretation (test code = 70303-2) [facility]normal [facility] SYPHILIS [id number] 20:46:46* Test Item Value Reference Range Interpretation Comme [facility] Syphilis IgG/IgM (test code = 45860-0) Nonreactive Nonreactive Syphilis Serology Interpretation (test code = 85392-7) No serologic evidence of syphilis. If recent exposure is suspected, retest in 2 to 4 weeks. VICENTE (test code = VICENTE) ? [facility]cosylated Hemoglobin (A1C)2025-03-24 06:59:17* Test Item Value Reference Range Interpretation Comme [facility] HGB A1C (test code = 4548-4) 5 % 4.0-5.7 VICENTE (test code = VICENTE) Reference RangesNormal: <5.7%Prediabetes: 5.7 - 6.4%Diabetes: > 6.5% Lab Interpretation (test code = 18511-3) Normal [facility]/2 AG-AB WITH [id number] 06:41:24* Test Item Value Reference Range Interpretation Comme [facility] HIV Semi-quantitative (test code = 22916-5) 0.09 Negative VICENTE (test code = VICENTE) Non-reactive for HIV-1 antigen and HIV-1/HIV-2 antibodies. ?No laboratory evidence of HIV infection. ?Repeat in 2-4 weeks if acute HIV infection is suspected. [facility] Hospital[facility]CV [id number] 05:33:35* Test Item Value Reference Range Interpretation Comme [facility] HCV Ab (test code = 27046-5) Negative HCV Semi-Quantitative (test code = 05057-6) 0.01 [facility]AL WORKUP, BLOOD [id number] 05:33:00 * Test Item Value Reference Range Interpretation Comme nts ABO & RH (test code = 20) O POSITIVE IAT (test code = 1185) Negative [facility] HospitalHEPATITIS B SURFACE [id number] 05:16:07 * Test Item Value Reference Range Interpretation Comme nts HBsAg Semi-Quantitative (jessika t code = 5195-3) 0.1 Negative [facility] HospitalTotal Beta HCG [id number] 05:05:57* Test Item Value Reference Range Interpretation Comme nts BETA HCG (test code = 7327737830) 24.68 See_Comment [Automated messa ge] The system which generated this result transmitted reference range: Non- female and male patients: <5 mIU/mL. The reference range was not used to interpret this result as normal/abnormal. VICENTE (test code = VICENTE) Gestational Age ?Range (mIU/mL) 1-10 ?Weeks ?39-37856885-82 Weeks ?12207-94504330-15 Weeks ?1555-27061490-56 Weeks ?1531-414130168 Biotin has been reported to cause a negative bias, interpret results relative to patient's use of biotin. [facility] WITH [id number] 04:20:57* Test Item Value Reference Range Interpretation Comme nts WBC (test code = 6690-2) 7.73 4.30-11.10 RBC (test code = 789-8) 4.09 3.93-5.25 HGB (test code = 718-7) 9.7 g/dL 11.6-15.0 L HCT (test code = 4544-3) 32.5 % 35.7-45.2 L MCV (test code = 787-2) 79.5 fL 80.6-95.5 L MCH (test code = 785-6) 23.7 pg 25.9-32.8 L MCHC (test code = 786-4) 29.8 g/dL 31.6-35.1 L RDW-SD (test code = 76088-6) 45.8 fL 39.0-49.9 RDW-CV (test code = 788-0) 15.9 % 12.0-15.5 H PLT (test code = 777-3) 259 166-358 MPV (test code = 99580-6) 11 fL 9.5-12.9 NRBC/100 WBC (test code = 6677602448) 0 0.0-10.0 NRBC x10^3 (test code = 2289138037) See_Comment [Automated messa ge] The system which generated this result transmitted reference range: 10*3/?L. The reference range was not used to interpret this result as normal/abnormal. GRAN MAT (NEUT) % (test code = 770-8) 63.7 % IMM GRAN % (test code = 9043654884) 0.1 % LYMPH % (test code = 736-9) 24.6 % MONO % (test code = 5905-5) 6.9 % EOS % (test code = 713-8) 3.9 % BASO % (test code = 706-2) 0.8 % GRAN MAT x10^3(ANC) (test code = 6459936407) 4.93 10*3/uL 1.88-7.09 IMM GRAN x10^3 (test code = 5502686965) 0.00-0.06 LYMPH x10^3 (test code = 731-0) 1.9 10*3/uL 1.32-3.29 MONO x10^3 (test code = 742-7) 0.53 10*3/uL 0.33-0.92 EOS x10^3 (test code = 711-2) 0.3 10*3/uL 0.03-0.39 BASO x10^3 (test code = 704-7) 0.06 10*3/uL 0.01-0.07 Lab Interpretation (test code = 85149-4) [facility] (51962)2025-03-24 04:09:55* Test Item Value Reference Range Interpretation Comme nts NA (test code = 6943184782) 140 mmol/L 135-145 K (test code = 3165925709) 3.4 mmol/L 3.5-5.0 L CL (test code = 6509898396) 103 mmol/L 98-108 CO2 TOTAL (test code = 6835676898) 27 mmol/L 23-31 AGAP (test code = 9436675025) 10 2-16 BUN (test code = 2329739831) 8 mg/dL 7-23 GLUCOSE (test code = 8304234229) 74 mg/dL 70-110 CREATININE (test code = 2160-0) 0.56 mg/dL 0.50-1.04 TOTAL BILI (test code = 6113727962) 0.9 mg/dL 0.1-1.1 CALCIUM (test code = 8359499197) 9.2 mg/dL 8.6-10.6 T PROTEIN (test code = 2509738496) 7.1 g/dL 6.3-8.2 ALBUMIN (test code = 3952947350) 4.6 g/dL 3.5-5.0 ALK PHOS (test code = 0333189018) 74 U/L 34-122 ALTv (test code = 1742-6) 16 U/L 5-35 AST(SGOT) (test code = 2432171660) 23 U/L 13-40 eGFR (test code = 47338-2) 131.7 mL/min/1.73m2 CKD-EPI eGFR (2020). Assuming creatinine has been stable day-to-day for at least three months, the eGFR indicates Category G1 (>= 90 mL/min/1.73 m2) Lab Interpretation (test code = 14693-6) Abnormal [facility] [id number] 13:53:00* Test Item Value Reference Range Interpretation Comme nts POCT PREG (test code = 1605) Positive On board controls acceptable with C Line (test code = 3574) Yes POCT PREG LOT # (test code = 3575) POCT PREG TEST DATE ( test code = 3576) [facility] Urinalysis W Specific [id number] 13:53:00* Test Item Value Reference Range Interpretation Comme nts POCT U SP GRAV (test code = 3255) . 1.005-1.025 POCT PH U (test code = 3254) 5 mg/dl 5-8 POCT U LEUK EST (test code = 3263) 2+ Negative - Negative POCT U NIT (test code = 3262) Neg Negative - Negati ve POCT U PROT (test code = 3259) 1+ Negative - Negat ely POCT U GLU (test code = 3256) Nml Negative - Negati ve POCT U KETONE (test code = 3258) 3+ Negative - Neg ative POCT U UROBILI (test code = 3260) . 0.2-1 POCT U BILI (test code = 3261) . Negative - Negat ely POCT U BLD (test code = 3257) ~50 Negative - Negati ve POCT U COLOR (test code = 3266) . POCT U APPEAR (test code = 3267) [facility] first trimester less than 14 weeks with [id number] 06:11:35EXAMINATION: US FIRST TRIMESTER LESS THAN 14 WEEKS WITHTRANSVAGINAL ORDERING PHYSICIAN: SHO JEFFREY HISTORY: vaginal bleeding TECHNIQUE: Transabdominal and transvaginal ultrasound evaluation ofmaternal and anatomic structures was performed using Grayscale andcolor Dopplermodalities. COMPARISON: Obstetrical ultrasound 01/28/2025. FINDINGS: UTERUS: The uterus measures 3.7x 4.8 x 8.2 cm. Myometrium is within normallimits. Cervix is long and closed. Gestational Sac: Not present. ?Yolk Sac: Not present.Fetus/Embryo: Not present. RIGHT OVARY: Measures ?2.9 x 1.7 x 2.0 cm, volume of 4.9 mL. Normalmorphology. Normal color Doppler. LEFT OVARY: Measures 3.6 x 2.3 x 2.7 cm,volume of 11.7 mL. Normalmorphology. Small follicles are present, one of which was measured by thetechnologist. Normal color Doppler. OTHER: No free fluid in the cul-de-sac.[facility]Type and Screen - ONCE [id number] 03:13:00* Test Item Value Reference Range Interpretation Comme nts ABO & RH (test code = 20) O POSITIVE IAT (test code = 1185) Negative [facility]POCT [id number] 03:01:00* Test Item Value Reference Range Interpretation Comme nts POCT PREG (test code = 1605) Positive On board controls acceptable with C Line (test code = 3574) Yes POCT PREG LOT # (test code = 8436) [id number] POCT PREG TEST DATE ( test code = 3576) 2026-07-07 Lab Interpretation (test cod e = 07993-1) Normal [facility] HospitalTOTAL BHCG (QUANTITATIVE)2025-02-04 17:50:48* Test Item Value Reference Range Interpretation Comme nts BETA HCG (test code = 9056243960) 315.18 See_Comment [Automated QBuya ge] The system which generated this result transmitted reference range: Non- female and male patients: <5 mIU/mL. The reference range was not used to interpret this result as normal/abnormal. VICENTE (test code = VICENTE) Gestational Age ?Range (mIU/mL) 1-10 ?Weeks ?45-64896077-62 Weeks ?66919-81641941-57 Weeks ?2291-32275377-96 Weeks ?4519-205885 Biotin has been reported to cause a negative bias, interpret results relative to patient's use of biotin. [facility] HospitalXR Foot 3+ vw [id number] 17:36:20EXAM: XR FOOT 3+ VW LEFT HISTORY: 24 years old Female with pain, swelling, bruising over 2nd and 3rdtoe COMPARISON: None FINDINGS: Imaging of the left foot demonstrates acute minimally displaced obliquefracture of the second digit proximal phalanx. The joint spaces aremaintained. The soft tissues are unremarkable. Soft tissue swelling overthe left second toe.[facility]POCT Urinalysis w/o Specific [id number] 18:13:00* Test Item Value Reference Range Interpretation Comme nts POCT PH U (test code = 3254) 9 mg/dl 5-8 A POCT U LEUK EST (test code = 3263) trace Negative - Negative POCT U NIT (test code = 3262) neative Negative - Negati ve POCT U PROT (test code = 3259) trace Negative - Negat ely POCT U GLU (test code = 3256) negative Negative - Negati ve POCT U KETONE (test code = 3258) negative Negative - Neg ative POCT U BLD (test code = 3257) negative Negative - Negati ve Lab Interpretation (test cod e = 64964-4) Abnormal [facility] [id number] 18:12:00* Test Item Value Reference Range Interpretation Comme nts POCT PREG (test code = 1605) Positive On board controls acceptable with C Line (test code = 3574) Yes POCT PREG LOT # (test code = 3575) POCT PREG TEST DATE ( test code = 3576) [facility] BETA HCG [id number] 19:29:52* Test Item Value Reference Range Interpretation Comme nts BETA HCG (test code = 3432952162) 290.27 See_Comment [Automated messa ge] The system which generated this result transmitted reference range: Non- female and male patients: <5 mIU/mL. The reference range was not used to interpret this result as normal/abnormal. VICENTE (test code = VICENTE) Gestational Age ?Range (mIU/mL) 1-10 ?Weeks ?37-02608152-71 Weeks ?54811-69479230-41 Weeks ?1218-78437478-50 Weeks ?2939-978766 Biotin has been reported to cause a negative bias, interpret results relative to patient's use of biotin. [facility] METABOLIC PANEL (NA, K, CL, CO2, GLUCOSE, BUN, CREATININE, CA)2025-01-28 19:05:41* Test Item Value Reference Range Interpretation Comme nts NA (test code = 9511831146) 137 mmol/L 135-145 K (test code = 8368786015) 3.8 mmol/L 3.5-5.0 CL (test code = 2155324364) 104 mmol/L 98-108 CO2 TOTAL (test code = 4267521254) 21 mmol/L 23-31 L AGAP (test code = 2887934715) 12 2-16 BUN (test code = 6471486634) 8 mg/dL 7-23 GLUCOSE (test code = 1182844093) 102 mg/dL 70-110 CREATININE (test code = 2160-0) 0.58 mg/dL 0.50-1.04 CALCIUM (test code = 1500249514) 8.8 mg/dL 8.6-10.6 eGFR (test code = 49960-5) 130.6 mL/min/1.73m2 CKD-EPI eGFR (2020). Assuming creatinine has been stable day-to-day for at least three months, the eGFR indicates Category G1 (>= 90 mL/min/1.73 m2) Lab Interpretation (test code = 72560-4) Abnormal [facility] WITH [id number] 18:28:32* Test Item Value Reference Range Interpretation Comme nts WBC (test code = 6690-2) 10.38 4.30-11.10 RBC (test code = 789-8) 4.72 3.93-5.25 HGB (test code = 718-7) 11.2 g/dL 11.6-15.0 L HCT (test code = 4544-3) 37 % 35.7-45.2 MCV (test code = 787-2) 78.4 fL 80.6-95.5 L MCH (test code = 785-6) 23.7 pg 25.9-32.8 L MCHC (test code = 786-4) 30.3 g/dL 31.6-35.1 L RDW-SD (test code = 10059-6) 43.8 fL 39.0-49.9 RDW-CV (test code = 788-0) 15.4 % 12.0-15.5 PLT (test code = 777-3) 312 166-358 MPV (test code = 57886-0) 10.8 fL 9.5-12.9 NRBC/100 WBC (test code = 1627492034) 0 0.0-10.0 NRBC x10^3 (test code = 5935108673) See_Comment [Automated QBuya ge] The system which generated this result transmitted reference range: 10*3/?L. The reference range was not used to interpret this result as normal/abnormal. GRAN MAT (NEUT) % (test code = 770-8) 68 % IMM GRAN % (test code = 3012676398) 0.2 % LYMPH % (test code = 736-9) 21 % MONO % (test code = 5905-5) 6.3 % EOS % (test code = 713-8) 3.8 % BASO % (test code = 706-2) 0.7 % GRAN MAT x10^3(ANC) (test code = 1769644654) 7.07 10*3/uL 1.88-7.09 IMM GRAN x10^3 (test code = 1730774901) 0.00-0.06 LYMPH x10^3 (test code = 731-0) 2.18 10*3/uL 1.32-3.29 MONO x10^3 (test code = 742-7) 0.65 10*3/uL 0.33-0.92 EOS x10^3 (test code = 711-2) 0.39 10*3/uL 0.03-0.39 BASO x10^3 (test code = 704-7) 0.07 10*3/uL 0.01-0.07 Lab Interpretation (test code = 32134-7) Abnormal [facility] [id number] 18:16:00* Test Item Value Reference Range Interpretation Comme nts POCT PREG (test code = 1605) Positive On board controls acceptable with C Line (test code = 3574) Yes POCT PREG LOT # (test code = 3575) [id number] POCT PREG TEST DATE ( test code = 3576) 05/28/2026 Lab Interpretation (test cod e = 49290-9) Normal [facility] [id number] 15:40:00* Test Item Value Reference Range Interpretation Comme nts POCT PREG (test code = 1605) Positive On board controls acceptable with C Line (test code = 3574) Yes POCT PREG LOT # (test code = 3575) POCT PREG TEST DATE ( test code = 3576) [facility] [id number] 16:21:00* Test Item Value Reference Range Interpretation Comme nts POCT PREG (test code = 1605) Negative On board controls acceptable with C Line (test code = 3574) Yes POCT PREG LOT # (test code = 3575) POCT PREG TEST DATE ( test code = 3576) [facility] [id number] 19:54:00* Test Item Value Reference Range Interpretation Comme nts POCT PREG (test code = 1605) Negative On board controls acceptable with C Line (test code = 3574) Yes POCT PREG LOT # (test code = 3575) POCT PREG TEST DATE ( test code = 3576) [facility] HospitalR[facility] (D) IMMUNE [id number] 11:58:13* Test Item Value Reference Range Interpretation Comme nts RHIG CANDIDATE? (test code = 5188) No- see comment Patient is not a candidate for RhIg- Patient is Rh Positive.Performed at [facility] Laboratory Services - [facility] Blood [address] [place] [address]Ghpx Free: [phone] No. [id number] [facility] HospitalArterial Cord [id number] 08:23:19* Test Item Value Reference Range Interpretation Comme nts BASE EXCESS, CORD (test code = 5709867519) -2.8 mEq/L AC PH, CORD (BEAKER) (test c ode = 8055207802) 7.34 7.18-7.38 PC02, CORD (test code = 5140870306) 44 32-66 PO2, CORD (test code = 5602627358) 23 10-30 BICARBONATE, CORD (test code = 9899889312) 23 17-27 [facility] Hospital[facility]ous Cord [id number] 08:22:44* Test Item Value Reference Range Interpretation Comme nts VENOUS BASE EXCESS, CORD (te st code = 6556899605) -0.4 mEq/L VENOUS PH, CORD (test code = 0511040169) 7.43 7.25-7.45 VENOUS PC02, CORD (test code = 5287987717) 35 27-49 VENOUS PO2, CORD (test code = 3240473488) 32 17-41 VENOUS BICARBONATE, CORD (te st code = 5005037586) 23 12-29 [facility] - SYPHILIS [id number] 16:13:18* Test Item Value Reference Range Interpretation Comme nts Syphilis IgG/IgM (test code = 65380-7) Non-reactive Non-reactive VICENTE (test code = VICENTE) Non-reactive - No serologic evidence of T. pallidum infection. Cannot exclude incubating or early syphilis. Submit a second specimen in 2-4 weeks if syphilis is clinically suspected. Equivocal - Further testing to follow. Reactive - Further testing to follow. Lab Interpretation (test code = 15984-9) Normal [facility] [id number] 07:39:00 Sadi Silverman MD ? ? 05/17/2024 ?2:40 AM Central Neuraxial Block Date/Time: 05/17/2024 2:39 AM Performed by: Sadi Silverman MDAuthorized by: Vince Flhaerty MD ?Patient Location: OBReason for Block: OB request, Patient request, Labor analgesia, Surgical anesthesia and Post-op pain managementStaff: ?Anesthesiologist: Vince Flaherty MD ?Resident/SILVER CHASER: Sadi Silverman MD ?Performed by: resident/CRNAPreanesthetic Checklist: patient identified, IV checked, risks andbenefits explained, monitors and equipment checked, timeout performed, pre-op evaluation, site marked and anesthesia consentProcedure: ?Type of Neuraxial: Epidural ?Epidural Description: 1st attempt ? Sterility Prep cap, drape, gloves, hand hygiene and mask ?Patient Position: sitting ?Prep: Betadine and patient draped ? ?Monitoring: heart rate, continuous pulse ox, heart rate / toco and NIBP ?Location: lumbar (1-5) ?Lumbar: L3-L4 ?Approach: midline ? ?Technique: TU air and catheter ?Guidance with: landmark technique}Epidural/Spinal [place] and/or Catheter: ?Epidural/Spinal Kit: BBraun ?Needle Type: Tuohy ?Needle Gauge: 17 G ?Needle Length: 3.5 in (8.89 cm) ?Needle Insertion Depth: 8 ?Catheter Type: multiport ? ?Catheter Size: 19 G ? ?Catheter at Skin Depth: 13 ?Number of Attempts: 1 ?Test Dose: lidocaine 1.5% with epinephrine 1-to-200,000 ? ?Dose: 5 cc ? ?Catheter Securement Method: surgical tape, Tegaderm, clear occlusive dressing and liquid medical adhesiveAssessment: ?Block Outcome: patient tolerated procedure well ? ?Procedure Assessment: patient tolerated procedure well with no complicationsNotes: ? Patient consented and positioned sitting upright with instructions given regarding positioning and maintaining a sterile field. Patient prepped and draped in sterile fashion. Epidural kit opened and medications prepared utilizing sterile protocol. TU to Saline was usedmidline at L3L4 interspace. TU was at ?8 cm attempts x 1. Catheter threaded smoothly, taped at skin at 13 cm. Negative aspiration of blood or CSF x 3. Negative Test dose. Epidural catheter secured in place using tegederm and tape while maintaining insertion site sterility. Pumps settings are continuous 12cc/hr PCEA 4cc- 15 mins lockout. 5 ml bolus was given initially. Patient instructed to lay back down on back and given instructions on [employer] functionality. Fall precautions provided, patient vocalized understanding and all questions answered. ? [facility] WITH [id number] 19:30:16* Test Item Value Reference Range Interpretation Comme nts HIV Semi-quantitative (test code = 68916-5) 0.08 Negative VICENTE (test code = VICENTE) Non-reactive for HIV-1 antigen and HIV-1/HIV-2 antibodies. ?No laboratory evidence of HIV infection. ?Repeat in 2-4 weeks if acute HIV infection is suspected. [facility]atitis [facility] Surface Sscfzak6726-24-47 18:31:35 * Test Item Value Reference Range Interpretation Comme nts HBsAg Semi-Quantitative (jessika t code = 5195-3) 0.12 Negative [facility] and Screen - STAT Sqwzbql8592-05-78 15:38:00* Test Item Value Reference Range Interpretation Comme nts ABO & RH (test code = 20) O POSITIVE IAT (test code = 1185) Negative [facility] Ag-[facility] with Rarwaw9335-52-60 12:39:56* Test Item Value Reference Range Interpretation Comme nts HIV Semi-quantitative (test code = 07220-8) 0.38 Negative VICENTE (test code = VICENTE) Non-reactive for HIV-1 antigen and HIV-1/HIV-2 antibodies. ?No laboratory evidence of HIV infection. ?Repeat in 2-4 weeks if acute HIV infection is suspected. [facility] - ONCE Hssskwa8804-42-31 11:38:00* Test Item Value Reference Range Interpretation Comme nts ABO & RH (test code = 20) O Positive IAT (test code = 1185) Negative [facility] (Asparate Amino Transfer)2024-05-16 10:05:14* Test Item Value Reference Range Interpretation Comme nts AST(SGOT) (test code = 9369732594) 21 U/L 13-40 Lab Interpretation (test cod e = 31734-7) Normal [facility] Hospital[facility] Acid Zclfa4884-79-67 09:43:59* Test Item Value Reference Range Interpretation Comme nts URIC ACID (test code = 2960671342) 2.5 mg/dL 2.9-6.0 L Lab Interpretation (test cod e = 13084-6) Abnormal [facility] HospitalAlanine Amino Transferase (SGPT)2024-05-16 09:43:59* Test Item Value Reference Range Interpretation Comme nts ALTv (test code = 1742-6) 13 U/L 5-35 Lab Interpretation (test cod e = 68915-8) Normal [facility] Dnvjeyryvy7373-74-25 09:43:39* Test Item Value Reference Range Interpretation Comme nts CREATININE (test code = 2160-0) 0.41 mg/dL 0.50-1.04 L eGFR (test code = 95778-5) 142.0 mL/min/1.73m2 CKD-EPI eGFR (2020). Assuming creatinine has been stable day-to-day for at least three months, the eGFR indicates Category G1 (>= 90 mL/min/1.73 m2) Lab Interpretation (test code = 16297-9) [facility]normal [facility] HospitalLactate Lxutcuvcbclng4805-78-87 09:43:39* Test Item Value Reference Range Interpretation Comme nts LDH (test code = 0677706723) 173 U/L 120-246 Lab Interpretation (test cod e = 26182-2) Normal [facility] with Idvzeawtfskj8936-00-38 09:00:51* Test Item Value Reference Range Interpretation Comme nts WBC (test code = 6690-2) 11.87 4.30-11.10 H RBC (test code = 789-8) 3.48 3.93-5.25 L HGB (test code = 718-7) 10.4 g/dL 11.6-15.0 L HCT (test code = 4544-3) 32.0 % 35.7-45.2 L MCV (test code = 787-2) 92.0 fL 80.6-95.5 MCH (test code = 785-6) 29.9 pg 25.9-32.8 MCHC (test code = 786-4) 32.5 g/dL 31.6-35.1 RDW-SD (test code = 98861-0) 40.2 fL 39.0-49.9 RDW-CV (test code = 788-0) 12.0 % 12.0-15.5 PLT (test code = 777-3) 222 166-358 MPV (test code = 86009-7) 10.5 fL 9.5-12.9 NRBC/100 WBC (test code = 4145043681) 0.0 0.0-10.0 NRBC x10^3 (test code = 3371083042) See_Comment [Automated messa ge] The system which generated this result transmitted reference range: 10*3/?L. The reference range was not used to interpret this result as normal/abnormal. GRAN MAT (NEUT) % (test code = 770-8) 62.9 % IMM GRAN % (test code = 5138082439) 1.60 % LYMPH % (test code = 736-9) 24.5 % MONO % (test code = 5905-5) 7.4 % EOS % (test code = 713-8) 3.0 % BASO % (test code = 706-2) 0.6 % GRAN MAT x10^3(ANC) (test code = 3017189648) 7.46 10*3/uL 1.88-7.09 H IMM GRAN x10^3 (test code = 0727383933) 0.19 10*3/uL 0.00-0.06 H LYMPH x10^3 (test code = 731-0) 2.91 10*3/uL 1.32-3.29 MONO x10^3 (test code = 742-7) 0.88 10*3/uL 0.33-0.92 EOS x10^3 (test code = 711-2) 0.36 10*3/uL 0.03-0.39 BASO x10^3 (test code = 704-7) 0.07 10*3/uL 0.01-0.07 Lab Interpretation (test code = 32552-6) Abnormal [facility] URINALYS[facility] W SPECIFIC DVETXNT9244-78-62 13:22:00* Test Item Value Reference Range Interpretation Comme [...] POCT U GLU (test code = 3256) 100 Negative - Negati ve POCT U KETONE [...] U APPEAR (test code = 3267) . [facility] Mklwwtxuor2782-71-10 07:29:45* Test Item Value Reference Range Interpretation Comme nts CREATININE (test code = 2160-0) 0.40 mg/dL 0.50-1.04 L eGFR (test code = 55839-8) 142.8 mL/min/1.73m2 CKD-EPI eGFR (2020). Assuming creatinine has been stable day-to-day for at least three months, the eGFR indicates Category G1 (>= 90 mL/min/1.73 m2) Lab Interpretation (test code = 49840-4) [facility]normal [facility]SG[facility] (Asparate Amino Transfer)2024-05-12 07:29:45* Test Item Value Reference Range Interpretation Comme nts AST(SGOT) (test code = 1879813761) 19 U/L 13-40 Lab Interpretation (test cod e = 63212-3) Normal [facility] Hospital[facility]o Transferase (SGPT)2024-05-12 07:29:45* Test Item Value Reference Range Interpretation Comme nts ALTv (test code = 1742-6) 13 U/L 5-35 Lab Interpretation (test cod e = 11455-8) Normal [facility] HospitalCBC with Yrcbkytpxlvl7441-81-95 06:49:00* Test Item Value Reference Range Interpretation Comme nts WBC (test code = 6690-2) 11.21 4.30-11.10 H RBC (test code = 789-8) 3.41 3.93-5.25 L HGB (test code = 718-7) 10.2 g/dL 11.6-15.0 L HCT (test code = 4544-3) 30.2 % 35.7-45.2 L MCV (test code = 787-2) 88.6 fL 80.6-95.5 MCH (test code = 785-6) 29.9 pg 25.9-32.8 MCHC (test code = 786-4) 33.8 g/dL 31.6-35.1 RDW-SD (test code = 62335-7) 37.9 fL 39.0-49.9 L RDW-CV (test code = 788-0) 11.8 % 12.0-15.5 L PLT (test code = 777-3) 229 166-358 MPV (test code = 87723-8) 10.6 fL 9.5-12.9 NRBC/100 WBC (test code = 8555497164) 0.0 0.0-10.0 NRBC x10^3 (test code = 5362980873) See_Comment [Automated QBuya ge] The system which generated this result transmitted reference range: 10*3/?L. The reference range was not used to interpret this result as normal/abnormal. GRAN MAT (NEUT) % (test code = 770-8) 62.8 % IMM GRAN % (test code = 9018054532) 1.30 % LYMPH % (test code = 736-9) 25.6 % MONO % (test code = 5905-5) 6.9 % EOS % (test code = 713-8) 2.9 % BASO % (test code = 706-2) 0.5 % GRAN MAT x10^3(ANC) (test code = 8737692559) 7.03 10*3/uL 1.88-7.09 IMM GRAN x10^3 (test code = 7098673732) 0.15 10*3/uL 0.00-0.06 H LYMPH x10^3 (test code = 731-0) 2.87 10*3/uL 1.32-3.29 MONO x10^3 (test code = 742-7) 0.77 10*3/uL 0.33-0.92 EOS x10^3 (test code = 711-2) 0.33 10*3/uL 0.03-0.39 BASO x10^3 (test code = 704-7) 0.06 10*3/uL 0.01-0.07 Lab Interpretation (test code = 93093-5) Abnormal [facility] URINALYSIS W SPECIFIC [id number] 18:46:00* Test Item Value Reference Range Interpretation Comme [...] POCT U GLU (test code = 3256) 50 Negative - Negati ve POCT U KETONE [...] U APPEAR (test code = 3267) . [facility] URINALYSIS W SPECIFIC HQHHJRW5741-75-97 13:37:00* Test Item Value Reference Range Interpretation Comme [...] POCT U APPEAR (test code = 3267) .... [facility] URINALYSIS W SPECIFIC KMLQWFY4939-92-67 13:18:00* Test Item Value Reference Range Interpretation Comme nts POCT U SP GRAV (test code = 3255) . 1.005-1.025 POCT PH U (test code = 3254) . 5-8 POCT U LEUK EST (test code = 3263) . Negative - N egative POCT U NIT (test code = 3262) . Negative - Negati ve POCT U PROT (test code = 3259) neg Negative - Negat ely POCT U GLU (test code = 3256) neg Negative - Negati ve POCT U KETONE (test code = 3258) .. Negative - Neg ative POCT U UROBILI (test code = 3260) . 0.2-1 POCT U BILI (test code = 3261) .. Negative - Negat ely POCT U BLD (test code = 3257) . Negative - Negati ve POCT U COLOR (test code = 3266) . POCT U APPEAR (test code = 3267) [facility] URINALYSIS W SPECIFIC RILVEHV8947-10-51 14:28:00* Test Item Value Reference Range Interpretation Comme [...] U APPEAR (test code = 3267) . [facility] URINALYSIS W SPECIFIC SFBMKZL9076-83-12 14:08:00* Test Item Value Reference Range Interpretation Comme [...] POCT U APPEAR (test code = 3267) [facility] URINALYSIS W SPECIFIC METWDTK8835-06-14 18:12:00* Test Item Value Reference Range Interpretation Comme nts POCT U SP GRAV (test code = 3255) . 1.005-1.025 POCT PH U (test code = 3254) . 5-8 POCT U LEUK EST (test code = 3263) . Negative - N egative POCT U NIT (test code = 3262) .. Negative - Negati ve POCT U PROT (test code = 3259) trace Negative - Negat ely POCT U GLU (test code = 3256) neg Negative - Negati ve POCT U KETONE (test code = 3258) . Negative - Neg ative POCT U UROBILI (test code = 3260) . 0.2-1 POCT U BILI (test code = 3261) .. Negative - Negat ely POCT U BLD (test code = 3257) . Negative - Negati ve POCT U COLOR (test code = 3266) POCT U APPEAR (test code = 3267) [facility] URINALYSIS W SPECIFIC MONXMJG5074-76-33 15:25:00* Test Item Value Reference Range Interpretation Comme nts POCT U SP GRAV (test code = 3255) . 1.005-1.025 POCT PH U (test code = 3254) 6 mg/dl 5-8 POCT U LEUK EST (test code = 3263) negative Negative - Negative POCT U NIT (test code = 3262) negative Negative - Negati ve POCT U PROT (test code = 3259) negative Negative - Negat ely POCT U GLU (test code = 3256) negative Negative - Negati ve POCT U KETONE (test code = 3258) negative Negative - Neg ative POCT U UROBILI (test code = 3260) negative 0.2-1 POCT U BILI (test code = 3261) negative Negative - Negat ely POCT U BLD (test code = 3257) negative Negative - Negati ve POCT U COLOR (test code = 3266) POCT U APPEAR (test code = 3267) [facility] URINALYSIS W SPECIFIC [id number] 15:16:00* Test Item Value Reference Range Interpretation [...] U APPEAR (test code = 3267) . [facility] [id number] 20:36:00* Test Item Value Reference Range Interpretation [...] U APPEAR (test code = 3267) . [facility] PELVIS > 14 [id number] 05:54:54Ordering physician: NAVEEN PATEL INDICATION: 20 weeks [...] 1 dayFL: 3.4 cm; 20 [facility] MSUFEXB3516-68-23 16:19:00* Test Item Value Reference Range Interpretation [...] POCT U APPEAR (test code = 3267) [facility] URINALYSIS W SPECIFIC [id number] 15:29:00* Test Item Value Reference Range Interpretation [...] POCT U APPEAR (test code = 3267) [facility] URINALYSIS W SPECIFIC FELMFQB0914-80-34 15:29:00* Test Item Value Reference Range Interpretation [...] POCT U APPEAR (test code = 3267) [facility] URINALYSIS W SPECIFIC GUEVYAC0736-04-28 13:59:00* Test Item Value Reference Range Interpretation [...] U APPEAR (test code = 3267) . [facility] URINALYSIS W SPECIFIC [id number] 19:51:00* Test Item Value Reference Range Interpretation [...] POCT U APPEAR (test code = 3267) [facility] Urinalysis w/o Specific Wnqazno0634-99-65 14:37:00* Test Item Value Reference Range Interpretation [...] = 3257) Neg Negative - Negati ve [facility] Ybek5773-97-88 14:27:00* Test Item Value Reference Range Interpretation Comme nts POCT PREG (test code = 1605) Positive On board controls acceptable with C Line (test code = 3574) Yes POCT PREG LOT # (test code = 3575) POCT PREG TEST DATE ( test code = 3576) [facility]. Metabolic Panel (73751)2023-11-12 03:59:37* Test Item Value Reference Range Interpretation Comme nts NA (test code = 9756729226) 135 mmol/L 135-145 K (test code = 9312423561) 3.4 mmol/L 3.5-5.0 L CL (test code = 5798055580) 103 mmol/L 98-108 CO2 TOTAL (test code = 2076162129) 27 mmol/L 23-31 AGAP (test code = 9129278166) 5 2-16 BUN (test code = 4309314539) 7 mg/dL 7-23 GLUCOSE (test code = 7605488155) 85 mg/dL 70-110 CREATININE (test code = 2160-0) 0.44 mg/dL 0.50-1.04 L TOTAL BILI (test code = 4323476120) 0.5 mg/dL 0.1-1.1 CALCIUM (test code = 6748410420) 9.2 mg/dL 8.6-10.6 T PROTEIN (test code = 1998916905) 7.2 g/dL 6.3-8.2 ALBUMIN (test code = 2961552305) 4.1 g/dL 3.5-5.0 ALK PHOS (test code = 7818420425) 53 U/L 34-122 ALTv (test code = 1742-6) 11 U/L 5-35 AST(SGOT) (test code = 0972532994) 30 U/L 13-40 eGFR (test code = 02095-1) 140.5 mL/min/1.73m2 CKD-EPI eGFR (2020). Assuming creatinine has been stable day-to-day for at least three months, the eGFR indicates Category G1 (>= 90 mL/min/1.73 m2) Lab Interpretation (test code = 33351-9) [facility]normal [facility]2024-[facility] 03:59:17* Test Item Value Reference Range Interpretation Comme nts LIPASE (test code = 5542267612) 83 U/L 0-220 Lab Interpretation (test cod e = 03719-7) Normal [facility] Hospital[facility] with Ukai6913-54-02 03:46:41* Test Item Value Reference Range Interpretation [...] 34.8 g/dL 31.6-35.1 RDW-SD (test code = 03157-6) 39.0 fL 39.0-49.9 RDW-CV (test code = 788-0) 11.6 % 12.0-15.5 L PLT (test code = 777-3) 219 166-358 MPV (test code = 00786-0) 10.9 fL 9.5-12.9 NRBC/100 WBC (test code = 5288183564) 0.0 0.0-10.0 NRBC x10^3 (test code = 2027728643) See_Comment [Automated messa ge] The system which generated this result transmitted reference range: 10*3/?L. The reference range was not used to interpret this result as normal/abnormal. GRAN MAT (NEUT) % (test code = 770-8) 61.7 % IMM GRAN % (test code = 7846172523) 0.30 % LYMPH % (test code = 736-9) 28.8 % MONO % (test code = 5905-5) 5.9 % EOS % (test code = 713-8) 2.8 % BASO % (test code = 706-2) 0.5 % GRAN MAT x10^3(ANC) (test code = 1816178598) 7.80 10*3/uL 1.88-7.09 H IMM GRAN x10^3 (test code = 4742738141) 0.04 10*3/uL 0.00-0.06 LYMPH x10^3 (test code = 731-0) 3.64 10*3/uL 1.32-3.29 H MONO x10^3 (test code = 742-7) 0.74 10*3/uL 0.33-0.92 EOS x10^3 (test code = 711-2) 0.35 10*3/uL 0.03-0.39 BASO x10^3 (test code = 704-7) 0.06 10*3/uL 0.01-0.07 Lab Interpretation (test code = 26890-0) [facility]normal [facility] HospitalThyroid Stimulating Gxaarbx6130-98-35 19:13:57 * Test Item Value Reference Range Interpretation Comme nts TSH (test code = 1937497666) 1.49 0.45-4.70 Lab Interpretation (test cod e = 19217-7) Normal [facility] HospitalTOTAL BHCG (QUANTITATIVE)2023-10-24 19:13:26* Test Item Value Reference Range Interpretation Comme nts BETA HCG (test code = 4314760562) 656.79 See_Comment [Automated QBuya ge] The system which generated this result transmitted reference range: Non- female and male patients: <5 mIU/mL. The reference range was not used to interpret this result as normal/abnormal. VICENTE (test code = VICENTE) Gestational Age ?Range (mIU/mL) 1-10 ?Weeks ?[id number] Weeks ?95051-80471591-92 Weeks ?4897-96899857-87 Weeks ?0069-768573 Biotin has been reported to cause a negative bias, interpret results relative to patient's use of biotin. [facility]. Metabolic Panel (43681)2023-10-24 18:43:10* Test Item Value Reference Range Interpretation Comme nts NA (test code = 1541258593) 138 mmol/L 135-145 K (test code = 2715430914) 4.1 mmol/L 3.5-5.0 CL (test code = 0274385734) 105 mmol/L 98-108 CO2 TOTAL (test code = 2690533421) 26 mmol/L 23-31 AGAP (test code = 6109593991) 7 2-16 BUN (test code = 2958248304) 11 mg/dL 7-23 GLUCOSE (test code = 4416958386) 100 mg/dL 70-110 CREATININE (test code = 2160-0) 0.55 mg/dL 0.50-1.04 TOTAL BILI (test code = 9569565440) 1.1 mg/dL 0.1-1.1 CALCIUM (test code = 1896160652) 9.1 mg/dL 8.6-10.6 T PROTEIN (test code = 5917155662) 7.5 g/dL 6.3-8.2 ALBUMIN (test code = 0724628293) 4.4 g/dL 3.5-5.0 ALK PHOS (test code = 1251879823) 58 U/L 34-122 ALTv (test code = 1742-6) 16 U/L 5-35 AST(SGOT) (test code = 4285523529) 25 U/L 13-40 eGFR (test code = 42242-8) 133.1 mL/min/1.73m2 CKD-EPI eGFR (20 21). Assuming creatinine has been stable day-to-day for at least three months, the eGFR indicates Category G1 (>= 90 mL/min/1.73 m2) [facility] with Bpjp3833-47-78 18:30:51* Test Item Value Reference Range Interpretation [...] 34.5 g/dL 31.6-35.1 RDW-SD (test code = 38444-5) 40.6 fL 39.0-49.9 RDW-CV (test code = 788-0) 11.9 % 12.0-15.5 L PLT (test code = 777-3) 230 166-358 MPV (test code = 07284-8) 10.7 fL 9.5-12.9 NRBC/100 WBC (test code = 8696447594) 0.0 0.0-10.0 NRBC x10^3 (test code = 5805678432) See_Comment [Automated messa ge] The system which generated this result transmitted reference range: 10*3/?L. The reference range was not used to interpret this result as normal/abnormal. GRAN MAT (NEUT) % (test code = 770-8) 64.9 % IMM GRAN % (test code = 1770597192) 0.30 % LYMPH % (test code = 736-9) 25.7 % MONO % (test code = 5905-5) 6.0 % EOS % (test code = 713-8) 2.5 % BASO % (test code = 706-2) 0.6 % GRAN MAT x10^3(ANC) (test code = 4177440910) 6.11 10*3/uL 1.88-7.09 IMM GRAN x10^3 (test code = 4633037672) 0.03 10*3/uL 0.00-0.06 LYMPH x10^3 (test code = 731-0) 2.43 10*3/uL 1.32-3.29 MONO x10^3 (test code = 742-7) 0.57 10*3/uL 0.33-0.92 EOS x10^3 (test code = 711-2) 0.24 10*3/uL 0.03-0.39 BASO x10^3 (test code = 704-7) 0.06 10*3/uL 0.01-0.07 Lab Interpretation (test code = 16271-4) [facility] [id number] 18:27:00 * Test Item Value Reference Range Interpretation Comme nts ABO & RH (test code = 20) O POSITIVE IAT (test code = 1185) Negative [facility] [id number] 15:42:00* Test Item Value Reference Range Interpretation Comme nts POCT PREG (test code = 1605) Negative On board controls acceptable with C Line (test code = 3574) Yes POCT PREG LOT # (test code = 3575) [id number] POCT PREG TEST DATE ( test code = 3576) 2024-08-14 Lab Interpretation (test cod e = 61715-7) Normal [facility] CSNC1840-82-62 16:00:00* Test Item Value Reference Range Interpretation Comme nts POCT PREG (test code = 1605) Negative On board controls acceptable with C Line (test code = 3574) Yes POCT PREG LOT # (test code = 3575) POCT PREG TEST DATE ( test code = 3576) [facility] [id number] 16:00:00* Test Item Value Reference Range Interpretation Comme nts POCT PREG (test code = 1605) Negative On board controls acceptable with C Line (test code = 3574) Yes POCT PREG LOT # (test code = 3575) POCT PREG TEST DATE ( test code = 3576) [facility] URINALYSIS W SPECIFIC [id number] 15:11:00* Test Item Value Reference Range Interpretation [...] clear Lab Interpretation (test cod e = 12637-3) Abnormal [facility] URINALYSIS W SPECIFIC SOFBTVC3594-00-92 15:11:00* Test Item Value Reference Range Interpretation [...] clear Lab Interpretation (test cod e = 80088-3) Abnormal [facility] [id number] 15:09:00* Test Item Value Reference Range Interpretation Comme nts POCT PREG (test code = 1605) Negative On board controls acceptable with C Line (test code = 3574) Yes POCT PREG LOT # (test code = 3575) POCT PREG TEST DATE ( test code = 3576) [facility] [id number] 15:09:00* Test Item Value Reference Range Interpretation Comme nts POCT PREG (test code = 1605) Negative On board controls acceptable with C Line (test code = 3574) Yes POCT PREG LOT # (test code = 3575) POCT PREG TEST DATE ( test code = 3576) [facility]ID STIMULATING SPEIMIZ2356-87-94 02:02:22 * Test Item Value Reference Range Interpretation Comme nts TSH (test code = 8212109793) 2.26 See_Comment [Automated messa ge] The system which generated this result transmitted reference range: 0.45 - 4.70 mIU/L. The reference range was not used to interpret this result as normal/abnormal. Lab Interpretation (test code = 51330-3) Normal [facility]. METABOLIC PANEL (07269)2022-12-28 01:32:39* Test Item Value Reference Range Interpretation Comme nts NA (test code = 4085993986) 139 mmol/L 135-145 K (test code = 2525665232) 3.4 mmol/L 3.5-5.0 L CL (test code = 4872299056) 103 mmol/L 98-108 CO2 TOTAL (test code = 7602162748) 24 mmol/L 23-31 AGAP (test code = 4858629102) 12 2-16 BUN (test code = 9364222714) 8 mg/dL 7-23 GLUCOSE (test code = 2009694055) 121 mg/dL 70-110 H CREATININE (test code = 0049879797) 0.57 mg/dL 0.50-1.04 TOTAL BILI (test code = 4493898662) 1.0 mg/dL 0.1-1.1 CALCIUM (test code = 4367894549) 9.2 mg/dL 8.6-10.6 T PROTEIN (test code = 1215254397) 6.9 g/dL 6.3-8.2 ALBUMIN (test code = 9818386597) 4.4 g/dL 3.5-5.0 ALK PHOS (test code = 9309390904) 47 U/L 34-122 ALTv (test code = 1742-6) 16 U/L 5-35 AST(SGOT) (test code = 7302511128) 22 U/L 13-40 eGFR (test code = 0217315696) 133.9 mL/min/1.73m2 VICENTE (test code = VICENTE) [...] imaging tests). Lab Interpretation (test code = 74209-9) [facility] 01:32:19* Test Item Value Reference Range Interpretation Comme nts LIPASE (test code = 9956865949) 67 U/L 0-220 Lab Interpretation (test cod e = 04621-3) Normal [facility] WITH [id number] 01:20:58* Test Item Value Reference Range Interpretation Comme nts WBC (test code = 6690-2) 9.89 See_Comment [Automated Tier 1 Performance] The system which generated this result transmitted reference range: 4.30 - 11.10 10*3/?L. The reference range was not used to interpret this result as normal/abnormal. RBC (test code = 789-8) 4.29 See_Comment [Automated Tier 1 Performance] The system which generated this result transmitted [...] 34.2 g/dL 31.6-35.1 RDW-SD (test code = 55930-4) 38.2 fL 39.0-49.9 L RDW-CV (test code = 788-0) 11.9 % 12.0-15.5 L PLT (test code = 777-3) 177 See_Comment [Automated messa ge] The system which generated this result transmitted reference range: 166 - 358 10*3/?L. The reference range was not used to interpret this result as normal/abnormal. MPV (test code = 75088-5) 11.6 fL 9.5-12.9 NRBC/100 WBC (test code = 4274190265) 0.0 See_Comment [Automated [employer] de [employer]ientes ssage] The system which generated this result transmitted reference range: 0.0 - 10.0 /100 WBCs. The reference range was not used to interpret this result as normal/abnormal. NRBC x10^3 (test code = 8981680021) See_Comment [Automated QBuya ge] The system which generated this result transmitted reference range: 10*3/?L. The reference range was not used to interpret this result as normal/abnormal. GRAN MAT (NEUT) % (test code = 770-8) 64.1 % IMM GRAN % (test code = 6737419878) 0.30 % LYMPH % (test code = 736-9) 28.1 % MONO % (test code = 5905-5) 5.8 % EOS % (test code = 713-8) 1.3 % BASO % (test code = 706-2) 0.4 % GRAN MAT x10^3(ANC) (test code = [id number]) 6.34 10*3/uL 1.88-7.09 IMM GRAN x10^3 (test code = [id number]) 0.03 10*3/uL 0.00-0.06 LYMPH x10^3 (test code = 731-0) 2.78 10*3/uL 1.32-3.29 MONO x10^3 (test code = 742-7) 0.57 10*3/uL 0.33-0.92 EOS x10^3 (test code = 711-2) 0.13 10*3/uL 0.03-0.39 BASO x10^3 (test code = 704-7) 0.04 10*3/uL 0.01-0.07 Lab Interpretation (test code = 66777-0) [id number]* Test Item Value Reference Range Interpretation Comme nts POCT PREG (test code = 1605) Negative On board controls acceptable with C Line (test code = 3574) Yes POCT PREG LOT # (test code = 3575) [id number] POCT PREG TEST DATE ( test code = 3576) 2024-03-19 Lab Interpretation (test cod e = 46077-4) [id number] 15:47:00* Test Item Value Reference Range Interpretation Comme nts POCT PREG (test code = 1605) Negative On board controls acceptable with C Line (test code = 3574) Yes POCT PREG LOT # (test code = 3575) POCT PREG TEST DATE ( test code = 3576) [facility] [id number] 15:47:00* Test Item Value Reference Range Interpretation Comme nts POCT PREG (test code = 1605) Negative On board controls acceptable with C Line (test code = 3574) Yes POCT PREG LOT # (test code = 3575) POCT PREG TEST DATE ( test code = 3576) [facility] History and Physical Notes Date/Time Note Provider Source 2024-05-16 09:53:15 TRIAGE/L&D HISTORY & PHYSICAL IDENTIFYING DATA Maylin Zuniga is 24 year old, /White, 34w3d, female with GILMAR 06/24/2024, by Last Menstrual Period. : 2001 Primary Care Physician: Eliza Olivier CHIEF COMPLAINT Transfer for PreEwSF HISTORY OF PRESENT ILLNESS Maylin Zuniga is a 24 year old at 34w3d who presents as a transfer from [place] due to PreEwSF based on neurological symptoms. She reported an unresolved headache since evaluation on 05/12 and vision changes. Patient denies vaginal bleeding, denies leakage of fluid, denies contractions. Patient denies nausea/vomiting, denies RUQ pain. Endorses normal movement. PAST OBSTETRIC HISTORY OB History Para Term AB Living 2 0 0 0 1 0 SAB IAB Ectopic Multiple Live Births 1 0 0 0 # Outcome Date GA Lbr Christopher/2nd Weight Sex Delivery Anes PTL Lv 2 Current 1 SAB 06/12/23 PAST MEDICAL HISTORY Problem list: Patient Active Problem List Diagnosis Date Noted Preeclampsia, severe, third trimester 05/16/2024 Obesity (BMI 30-39.9) 05/12/2024 34 weeks gestation of 05/12/2024 Gestational hypertension 05/12/2024 Supervision of high risk in second trimester 03/23/2024 Cramping affecting , antepartum 02/13/2024 Anxiety 02/13/2024 Vaginal bleeding before 22 weeks gestation 02/11/2024 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 Other depression 08/20/2019 stopped meds on 10/15/2023 Screening examination for STD (sexually transmitted disease) CURRENT HEALTH STATUS Medications: Current Facility-Administered Medications Medication Dose Route Frequency Last Rate Last Admin D5W-LR IV infusion 1,000 mL 1,000 mL IV Infusion TITRATE lactated ringers IV infusion 500 mL 500 mL IV Infusion PRN - SEE INSTRUCTIONS lactated ringers IV infusion 700 mL 700 mL Intravenous ONCE lidocaine 1% (PF) (XYLOCAINE) injection 0.3 mL 0.3 mL Infiltration PRN - SEE INSTRUCTIONS lidocaine 1% (XYLOCAINE) 10 mg/mL (1 %) injection 50 mL 50 mL Infiltration PRN - SEE INSTRUCTIONS penicillin g potassium 5 Million Units in NaCl 0.9% (NS) 100 mL MINI-BAG 5 Million Units IV Piggyback ONCE Followed by penicillin GK 3 million units in NS 50 mL IV infusion (CNR) 3 Million Units IV Piggyback Q4H ABX sodium citrate-citric acid (BICITRA) 500-334 mg/5 mL solution 30 mL 30 mL Oral PRE-PROCEDURE ONCE sodium citrate-citric acid (BICITRA) 500-334 mg/5 mL solution 30 mL 30 mL Oral PRE-PROCEDURE ONCE Allergies and drug reactions: Patient has no known allergies. HOME MEDICATIONS Medications Prior to Admission Medication Sig Dispense Refill Last Dose omeprazole 40 mg capsule Take 1 capsule by mouth in the morning. 30 capsule 0 metroNIDAZOLE (FLAGYL) 500 mg tablet Take 1 tablet by mouth every 12 (twelve) hours. 13 tablet 0 not taking magnesium oxide 400 mg (241.3 mg magnesium) tablet Take 1 tablet by mouth in the morning. 30 tablet 2 not taking venlafaxine XR 37.5 mg 24 hr capsule Take 1 capsule by mouth daily with breakfast. 30 capsule 0 not taking PNV 67-iron ps-folate no.1-dha (VITAFOL ULTRA) 29 mg iron- 1 mg-200 mg Cap Take 1 Each by mouth in the morning. 30 capsule 11 05/15/2024 proMETHazine 25 mg tablet Take 1 tablet by mouth every 6 (six) hours as needed for Nausea and Vomiting (N/V). 30 tablet 0 not taking doxylamine-pyridoxine, vit B6, (DICLEGIS) 10-10 mg per tablet Take 2 tablets by mouth at bedtime as needed for Nausea and Vomiting (N/V). 20 tablet 0 Not Taking ondansetron 4 mg tablet Take 1 tablet by mouth every 8 (eight) hours as needed for Nausea and Vomiting (N/V). 20 tablet 0 Not Taking ondansetron 8 mg tablet Take 1 tablet by mouth every 8 (eight) hours as needed for Nausea and Vomiting (N/V). 8 tablet 0 Not Taking SOCIAL HISTORY Tobacco History: Social History Tobacco Use Smoking Status Never Passive exposure: Never Smokeless Tobacco Never Drug History: Social History Substance and Sexual Activity Drug Use No Alcohol History: Social History Substance and Sexual Activity Alcohol Use Yes Comment: social FAMILY HISTORY Family History Problem Relation Age of Onset No Significant Medical Problems Mother Hypertension Father Diabetes Father No Significant Medical Problems Sister Asthma Brother Heart Maternal Uncle Cancer Maternal Grandfather Diabetes Paternal Grandmother Hypertension Paternal Grandmother Cancer Paternal Grandmother stomach Diabetes Paternal Grandfather defects NoFHx Colon Cancer NoFHx Breast Cancer NoFHx Ovarian Cancer NoFHx Uterine Cancer NoFHx Depression NoFHx Genetic NoFHx High cholesterol NoFHx Mental retardation NoFHx Neurological NoFHx Osteoporosis NoFHx Other - see comments NoFHx Psychiatry NoFHx REVIEW OF SYSTEMS General: negative Skin: negative HEENT: negative Neck: negative HEME: negative Resp: negative Cardio: negative GI: negative : negative Endo: negative Neuro: negative Back: negative JAX: negative Psych: negative VITAL SIGNS BP: (88-151)/(49-107) Temp: [36.8 ?C (98.3 ?F)-37 ?C (98.6 ?F)] Temp source: Axillary (05/16 1200) Pulse: [74-120] Resp: [18-20] SpO2: [96 %-100 %] Height: [162.6 cm (5' 4")-162.6 cm (5' 4.02")] Weight: [82.6 kg (182 lb)-82.9 kg (182 lb 11.2 oz)] BMI (calculated): [31.22-31.36] PHYSICAL EXAMINATIONS General: patient alert and in no acute distress HEENT: symmetric, negative for masses Lungs: unlabored breathing Breast: deferred Cardiology: peripheral pulses intact and regular Abdomen: soft, non-tender, non-distended, no liver, spleen or abnormal masses palpated and Gravid Extremities: no clubbing, cyanosis, or edema Neuro: patient moving all extremities, no facial droop : SVE C/T/H REVIEW OF LABORATORY, PATHOLOGY, AND RADIOLOGY DATA Lab results: Type & Screen Lab Results Component Value Date/Time IABORH O POSITIVE 05/16/2024 10:32 AM IAT Negative 05/16/2024 10:32 AM Serologies Lab Results Component Value Date/Time VZVIGG Positive 11/14/2023 10:53 AM RUBG Positive 11/14/2023 10:53 AM SYPIGG Non-reactive 04/20/2024 08:47 AM HBSAG Negative 11/14/2023 10:53 AM HBSAG 0.10 11/14/2023 10:53 AM Chlamydia Lab Results Component Value Date/Time VCAA Negative 03/17/2024 11:31 PM Group B Strep No results found for: "CGB" GTT Lab Results Component Value Date/Time NLSG5AO 71 (L) 03/23/2024 09:19 AM CBC Lab Results Component Value Date/Time HGB 10.4 (L) 05/16/2024 02:45 AM HCT 32.0 (L) 05/16/2024 02:45 AM PLT 222 05/16/2024 02:45 AM Active Hospital Problems Diagnosis Date Noted Preeclampsia, severe, third trimester 05/16/2024 34 weeks gestation of 05/12/2024 Anxiety 02/13/2024 Low grade squamous intraepithelial lesion (LGSIL) on cervical Pap smear 11/27/2023 Repeat pap 11/2024 Depression during 08/20/2019 Reports stopped meds 10/15/23 reports stable mood Resolved Hospital Problems No resolved problems to display. Present on Admission: 34 weeks gestation of Anxiety Preeclampsia, severe, third trimester Low grade squamous intraepithelial lesion (LGSIL) on cervical Pap smear Depression during Placenta Accreta Screening Prior ? : No Prior Uterine Surgery?: No Placenta low lying/previa in current ? : No Screening outcome: A positive screening outcome indicates a history of prior delivery or prior uterine surgery, AND the presence of either a placenta low lying/previa or ultrasound suspicion of PASD in the current . Negative screening. ASSESSMENT AND PLAN Maylin Zuniga is a 24 year old at 34w3d by d/u(7) who presents as a transfer for PreEwSF based on neurological symptoms. PreEwSF - Dx Gestational HTN in triage 05/12; preE labs negative at that time - Reports DUNCAN persistent since 05/12 with new changes to vision (spots) - Repeat PreE labs in [place] with Pr/Cr 0.3; pt reports headache resolved with benadryl/reglan - Given 1 dose BMZ, started on MgSO4 and transferred to [facility] for PreEwSF - Baseline Bps 110-150s/60-90s - Bps on admission 120-140s/80-90s - Denies other symptoms of PreE - SVE: C/T/H - Contractions (number / 10 minute): 0 - Plan: Admit for IOL due to PreEwSF based on neurological symptoms, will place barr bulb. Magnesium sulfate for seizure ppx. GBS unknown - PCN intrapartum Anxiety/Depression - Was previously on Venlafaxine, no longer taking in - mood stable, does not desire medication Antepartum course reviewed - 1 h 71, sero negative, Roger VZVimmune, HPV immune, O positive/IAT negative, GBS not yet performed, Pap LGSIL on 11/14/23 repeat in 1 year - H/H, plt: 10.6 / 31.4, 183 on 03/23/24 - PP control plan: Shira Castro RM[facility] Fetus - Presentation on admission: cephalic - posterior placenta - EFW: 2492 g, 68%tile BSUS 05/12/24 - DVP 4.1 cm - FHT reactive and reassuring - Normal anatomy scan Esther Caceres MD Associated attestation - Thomas Hardy DO - 05/16/2024 4:08 PM CDT Attending addendum: I was L&D faculty on 05/16/2024 and agree with H&P below. I discussed the plan of care with the residents. Thomas Hardy DO [facility] 2024-05-16 07:23:47 TRIAGE HISTORY & PHYSICAL IDENTIFYING DATA Maylin Zuniga is 24 year old, /White, 34w3d, female with GILMAR 06/24/2024, by Last Menstrual Period. : 2000 Primary Care Physician: Eliza Olivier CHIEF COMPLAINT Headaches Visual changes HISTORY OF PRESENT ILLNESS Maylin Zuniga is a 24 year old female at 34w3d presents with worsening headaches with blurry vision/seeing spots. With no relief with Tylenol at home. She was diagnosed with GTHN 4 days ago (see note from 05/12). Reports that she wears glasses and initially thoughtt the blurry vision was related to that but the flashing lights is different for her +FM. No VB, LOF, or CTX. CARE: PAST OBSTETRIC HISTORY OB History Para Term AB Living 2 0 0 0 1 0 SAB IAB Ectopic Multiple Live Births 1 0 0 0 # Outcome Date GA Lbr Christopher/2nd Weight Sex Delivery Anes PTL Lv 2 Current 1 SAB 06/12/23 PAST MEDICAL HISTORY Problem list: Patient Active Problem List Diagnosis Date Noted Preeclampsia, severe, third trimester 05/16/2024 Obesity (BMI 30-39.9) 05/12/2024 34 weeks gestation of 05/12/2024 Gestational hypertension 05/12/2024 Supervision of high risk in second trimester 03/23/2024 Cramping affecting , antepartum 02/13/2024 Anxiety 02/13/2024 Vaginal bleeding before 22 weeks gestation 02/11/2024 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 No pertinent surgical history. 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 Other depression 08/20/2019 stopped meds on 10/15/2023 Screening examination for STD (sexually transmitted disease) CURRENT HEALTH STATUS Medications: Current Facility-Administered Medications Medication Dose Route Frequency Last Rate Last Admin betamethasone acet,sod phos (CELESTONE SOLUSPAN) 6 mg/mL injection 12 mg 12 mg Intramuscular Q24H 12 mg at 05/16/24 0623 lactated ringers IV infusion 1,000 mL 1,000 mL IV Infusion CONTINUOUS 50 mL/hr at 05/16/24 0639 1,000 mL at 05/16/24 0639 magnesium sulfate loading dose from bag 6 g IV Infusion ONCE And magnesium sulfate in water for injection 20 gram/500 mL (4 %) IV infusion 2 g/hr IV Infusion CONTINUOUS 50 mL/hr at 05/16/24 0718 2 g/hr at 05/16/24 0718 Allergies and drug reactions: Patient has no known allergies. HOME MEDICATIONS Medications Prior to Admission Medication Sig Dispense Refill Last Dose omeprazole 40 mg capsule Take 1 capsule by mouth in the morning. 30 capsule 0 metroNIDAZOLE (FLAGYL) 500 mg tablet Take 1 tablet by mouth every 12 (twelve) hours. 13 tablet 0 not taking magnesium oxide 400 mg (241.3 mg magnesium) tablet Take 1 tablet by mouth in the morning. 30 tablet 2 not taking venlafaxine XR 37.5 mg 24 hr capsule Take 1 capsule by mouth daily with breakfast. 30 capsule 0 not taking PNV 67-iron ps-folate no.1-dha (VITAFOL ULTRA) 29 mg iron- 1 mg-200 mg Cap Take 1 Each by mouth in the morning. 30 capsule 11 05/15/2024 proMETHazine 25 mg tablet Take 1 tablet by mouth every 6 (six) hours as needed for Nausea and Vomiting (N/V). 30 tablet 0 not taking doxylamine-pyridoxine, vit B6, (DICLEGIS) 10-10 mg per tablet Take 2 tablets by mouth at bedtime as needed for Nausea and Vomiting (N/V). 20 tablet 0 Not Taking ondansetron 4 mg tablet Take 1 tablet by mouth every 8 (eight) hours as needed for Nausea and Vomiting (N/V). 20 tablet 0 Not Taking ondansetron 8 mg tablet Take 1 tablet by mouth every 8 (eight) hours as needed for Nausea and Vomiting (N/V). 8 tablet 0 Not Taking SOCIAL HISTORY Tobacco History: Social History Tobacco Use Smoking Status Never Passive exposure: Never Smokeless Tobacco Never Drug History: Social History Substance and Sexual Activity Drug Use No Alcohol History: Social History Substance and Sexual Activity Alcohol Use Yes Comment: social FAMILY HISTORY Family History Problem Relation Age of Onset No Significant Medical Problems Mother Hypertension Father Diabetes Father No Significant Medical Problems Sister Asthma Brother Heart Maternal Uncle Cancer Maternal Grandfather Diabetes Paternal Grandmother Hypertension Paternal Grandmother Cancer Paternal Grandmother stomach Diabetes Paternal Grandfather defects NoFHx Colon Cancer NoFHx Breast Cancer NoFHx Ovarian Cancer NoFHx Uterine Cancer NoFHx Depression NoFHx Genetic NoFHx High cholesterol NoFHx Mental retardation NoFHx Neurological NoFHx Osteoporosis NoFHx Other - see comments NoFHx Psychiatry NoFHx REVIEW OF SYSTEMS General: negative Constitutional: negative Eyes: negative ENT/Mouth: negative Cardiovascular: negative Respiratory: negative Gastrointestinal:negative Genitourinary: negative Musculoskeletal: negative Skin/breast: negative Neurological:As above Psychiatric: negative Endocrine: negative Hemat/Lymph: negative Allergic/Immuno:none VITAL SIGNS BP: (107-151)/(49-107) Temp: [36.9 ?C (98.4 ?F)-37 ?C (98.6 ?F)] Temp source: Oral (05/16 0143) Pulse: [104-109] Resp: [18] SpO2: [99 %] Height: [162.6 cm (5' 4")-162.6 cm (5' 4.02")] Weight: [82.6 kg (182 lb)-82.9 kg (182 lb 11.2 oz)] BMI (calculated): [31.22-31.36] PHYSICAL EXAMINATIONS Gen: alert and oriented, well appearing, no distress CV: RRR Resp: normal work of breathing, Abd: gravid, soft, NTTP Ext: no calf tenderness or edema. 2+ DTR, no clonus Contractions: None - SVE: Dilation: Closed / / - Mode: [place]: REVIEW OF LABORATORY, PATHOLOGY, AND RADIOLOGY DATA Lab results: Type & Screen HIV Hep B Syphilis Chlamydia ABO & RH Date Value Ref Range Status 05/16/2024 O Positive Final No results found for: "HIVMULTIPLEX" No components found for: "HBSHBSAG" Syphilis IgG/IgM Date Value Ref Range Status 04/20/2024 Non-reactive Non-reactive Final C. trachomatis Nucleic Acid Date Value Ref Range Status 03/17/2024 Negative Negative Final IAT Date Value Ref Range Status 05/16/2024 Negative Final Varicella Rubella Glucose Group B Strep CBC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 Medications - No data to display Allergies No Known Allergies Review of Systems Review of Systems Constitutional: Negative. HENT: Negative. Eyes: Negative. Respiratory: Negative. Cardiovascular: Negative. Gastrointestinal: Negative. Genitourinary: Positive for vaginal bleeding. Musculoskeletal: Negative. Skin: Negative. Neurological: Negative. Psychiatric/Behavioral: Negative. Endocrine: Endocrine negative Physical Exam BP (!) 150/95 | Pulse 90 | Temp 36.5 ?C (97.7 ?F) (Oral) | Resp 18 | Ht 1.626 m (5' 4") | Wt 78.9 kg (174 lb) | LMP 12/13/2024 (Exact Date) | SpO2 98% | BMI 29.87 kg/m? Physical Exam Vitals and nursing note reviewed. Constitutional: General: She is not in acute distress. Appearance: She is well-developed and normal weight. She is not ill-appearing. HENT: Head: Normocephalic and atraumatic. Right Ear: External ear normal. Left Ear: External ear normal. Nose: Nose normal. No congestion or rhinorrhea. Mouth/Throat: Pharynx: No oropharyngeal exudate or posterior oropharyngeal erythema. Eyes: General: Right eye: No discharge. Left eye: No discharge. Conjunctiva/sclera: Conjunctivae normal. Pupils: Pupils are equal, round, and reactive to light. Cardiovascular: Rate and Rhythm: Normal rate and regular rhythm. Heart sounds: Normal heart sounds. No murmur heard. No friction rub. Pulmonary: Effort: Pulmonary effort is normal. No respiratory distress. Breath sounds: Normal breath sounds. No stridor. No wheezing or rhonchi. Abdominal: General: Bowel sounds are normal. There is no distension. Palpations: Abdomen is soft. There is no mass. Tenderness: There is no abdominal tenderness. Hernia: No hernia is present. Musculoskeletal: General: No swelling, tenderness, deformity or signs of injury. Normal range of motion. Cervical back: Normal range of motion and neck supple. No rigidity or tenderness. Skin: General: Skin is warm. Capillary Refill: Capillary refill takes less than 2 seconds. Coloration: Skin is not jaundiced or pale. Findings: No bruising or erythema. Neurological: General: No focal deficit present. Mental Status: She is alert and oriented to person, place, and time. Cranial Nerves: No cranial nerve deficit. Sensory: No sensory deficit. Motor: No weakness. Coordination: Coordination normal. Psychiatric: Mood and Affect: Mood normal. Behavior: Behavior normal. Thought Content: Thought content normal. Judgment: Judgment normal. Labs and Studies Lab Results CBC WITH DIFF - Abnormal Result Value Ref Range WBC 10.38 4.30 - 11.10 10*3/?L RBC 4.72 3.93 - 5.25 10*6/?L HGB 11.2 (*) 11.6 - 15.0 g/dL HCT 37.0 35.7 - 45.2 % MCV 78.4 (*) 80.6 - 95.5 fL MCH 23.7 (*) 25.9 - 32.8 pg MCHC 30.3 (*) 31.6 - 35.1 g/dL RDW-SD 43.8 39.0 - 49.9 fL RDW-CV 15.4 12.0 - 15.5 % PLT 312 166 - 358 10*3/?L MPV 10.8 9.5 - 12.9 fL NRBC/100 WBC 0.0 0.0 - 10.0 /100 WBCs NRBC x10 3 <0.01 10*3/?L GRAN MAT (NEUT) % 68.0 % IMM GRAN % 0.20 % LYMPH % 21.0 % MONO % 6.3 % EOS % 3.8 % BASO % 0.7 % GRAN MAT x10 3 (ANC) 7.07 1.88 - 7.09 10*3/uL IMM GRAN x10 3 <0.03 0.00 - 0.06 10*3/uL LYMPH x10 3 2.18 1.32 - 3.29 10*3/uL MONO x10 3 0.65 0.33 - 0.92 10*3/uL EOS x10 3 0.39 0.03 - 0.39 10*3/uL BASO x10 3 0.07 0.01 - 0.07 10*3/uL BASIC METABOLIC PANEL (NA, K, CL, CO2, GLUCOSE, BUN, CREATININE, CA) - Abnormal NA 137 135 - 145 mmol/L K 3.8 3.5 - 5.0 mmol/L CL 104 98 - 108 mmol/L CO2 TOTAL 21 (*) 23 - 31 mmol/L AGAP 12 2 - 16 BUN 8 7 - 23 mg/dL GLUCOSE 102 70 - 110 mg/dL CREATININE 0.58 0.50 - 1.04 mg/dL CALCIUM 8.8 8.6 - 10.6 mg/dL eGFR 130.6 mL/min/1.73m2 URINALYSIS - Abnormal APPEARANCE Cloudy (*) Clear COLOR Jennie (*) Yellow PH 5.0 4.8 - 8.0 SP GRAVITY 1.027 1.003 - 1.030 GLU U QUAL Normal Normal BLOOD Negative Negative KETONES Negative Negative PROTEIN 30 mg/dL (*) Negative UROBILIN 2.0 mg/dL (*) Normal BILIRUBIN Negative Negative NITRITE Negative Negative LEUK RUBINA 75/uL (*) Negative RBC/HPF 2 0 - 3 HPF WBC/HPF 5 0 - 5 HPF BACTERIA Few (*) Negative MUCOUS Marked (*) Negative LPF SQ EPITH 67 HPF TRANS EPI 1 <=1 HPF POCT TEST - Normal POCT PREG Positive On board controls acceptable with C Line Yes POCT PREG LOT # [id number] POCT PREG TEST DATE 05/28/2026 TOTAL BETA HCG ASSAY BETA HCG 290.27 Non- female and male patients: <5 mIU/mL US first trimester less than 14 weeks with transvaginal Preliminary Result EXAM: US FIRST TRIMESTER LESS THAN 14 WEEKS WITH TRANSVAGINAL HISTORY: 24 years -old Female; vaginal bleeding . LMP = none available. Beta-hC mIU/mL. G/P: 10/10. TECHNIQUE: Survey transabdominal and transvaginal ultrasound imaging and color Doppler evaluation of the pelvis was performed. M-mode was used to evaluate the heart. Diesel Pile Hammer Operator images were obtained. COMPARISON: None FINDINGS: Uterus: The uterus measures 8.1 x 6.6 x 4.2 cm. An intrauterine gestational sac is present. The mean sac diameter measures 0.17 with estimated gestational age of 4 weeks and 4 days. Embryo is not visualized. Right Adnexa: Ovary: The right ovary measures 3.5 x 2.9 x 2.4 cm, with a volume of 13.3 mL. Corpus luteum is visualized. Left Adnexa: Ovary: The left ovary measures 3.2 x 2.8 x 2.2 cm, 10.2 mL in volume. Small physiologic follicles are present. Cul-de-sac: No free fluid is present. IMPRESSION A single intrauterine gestational sac with nonvisualization of the embryo and estimated gestational age of 4 weeks and 4 days. Continue follow-up per obstetrics. Preliminary Report Dictated by Resident: Keny Loo Orders and Treatments Orders Placed This Encounter Procedures US first trimester less than 14 weeks with transvaginal CBC WITH DIFF TOTAL BETA HCG ASSAY BASIC METABOLIC PANEL (NA, K, CL, CO2, GLUCOSE, BUN, CREATININE, CA) URINALYSIS POCT TEST No orders of the defined types were placed in this encounter. Patient's Medications START taking these medications No medications on file CONTINUE taking these medications which have NOT CHANGED LEVOCETIRIZINE 5 MG TABLET Take 1 tablet by mouth every evening. START taking Modified Medications as Prescribed No medications on file STOP taking these medications No medications on file Procedures Procedures [facility] & Notes Patient was evaluated for an emergency medical condition related to No chief complaint on file. Diagnosis/Impression as of 01/28/25 1531 Vaginal bleeding Medical Decision Making Amount and/or Complexity of Data Reviewed Labs: ordered. Radiology: ordered. Assessment & Plan Initial Assessment: Reported waking up with vaginal bleeding, not as heavy as regular period. Experienced cramping and vomiting. History of miscarriage. Differential Diagnosis: - Miscarriage: History of previous miscarriage. Ultrasound to evaluate current status. - Infection: Urinalysis and labs to rule out infection. - Anemia: Labs to check hemoglobin levels. ED Course: - Urinalysis obtained. - Labs obtained. - Ultrasound ordered. Final Assessment: Vaginal bleeding with cramping and vomiting. Labs and urinalysis obtained. Ultrasound ordered for further evaluation. A singled intrauterine gestation sac with nonvisualization of the embryo, estimated gestational age of 4 weeks 4 days. Low HCG, possibly early preg vs failed . F/u with OBGYN, return to the ED if worsening of symptoms. Clinical Impression: - Vaginal bleeding - Cramping - Vomiting Pulse Oximetry: is not hypoxic. Interpreted. Reassessment:stable Limitations to patient care and compliance: none. Disposition & Follow Up ED Disposition ED Disposition Discharge Condition Stable Comment -- Patient's Medications START taking these medications No medications on file CONTINUE taking these medications which have NOT CHANGED LEVOCETIRIZINE 5 MG TABLET Take 1 tablet by mouth every evening. START taking Modified Medications as Prescribed No medications on file STOP taking these medications No medications on file Future Appointments In 4 days Meryl Bunn MSN [facility] & [facility] Diagnoses ICD-10-CM 1. Vaginal bleeding N93.9 Disposition and Condition ED Disposition ED Disposition Discharge Condition Stable Comment -- Patient's Medications START taking these medications No medications on file CONTINUE taking these medications which have NOT CHANGED LEVOCETIRIZINE 5 MG TABLET Take 1 tablet by mouth every evening. START taking Modified Medications as Prescribed No medications on file STOP taking these medications No medications on file Future Appointments In 4 days Meryl Bunn MSN [facility], RYLIE Jackson [employer] is used frequently and may produce errors. Promptly contact for obvious discrepancies. Chaya Pelaez MD, FACEP, FAAEM [place] [employer] Operator of Emergency and Internal Medicine [facility] #[id number] Chaya Pelaez MD 01/28/25 1531 [facility] 2025-01-28 10:26:00 Regarding: bleeding, states it is more than spotting, and is also experiencing cramping. ----- Message from Patient Licensed Life And Health Agent sent at 01/28/2025 10:26 AM CDT ----- Maylin Zuniga is a 24 year old female Possibly 7 weeks Patient is calling due to her waking up this morning to bleeding, states it is more than spotting, and is also experiencing cramping. Ladonna Shaw RN [facility] 2025-01-28 10:26:00 Triage Assessment Last Clinic Visit: 01/27/2025 OB Dx: missed period Primary Symptom: spoke with patient reports " vaginal bleeding. Dark red and it was also when I peed and wiped. Like a period red. Blood pressure has been high at my appointment and high this morning when I checked it BP-146/91." Onset / Duration: this morning Location / Description: abdominal pain, cramping Pain / Severity: "5.5/10. it comes and goes but sometimes it stays for a while." Associated Symptoms: "discharge, milky color, headaches constant 7/10, my temples from the sides of my head and forehead." Fever / Method: denies, "last night I could've had one I was burning up bad." Hydration: 2 to 2.5 water bottles 16 ounces each . Denies any problems with urine or bowel movements. Last voided 10:19 am Treatment so far: wearing a panty liner. Effect on ADL's: "not much it hurts if I am on my feet a lot or walking." Gestational Weeks: patient reports 7 weeks, Rupture Membranes: "just the fluid milky discharge." Bleeding / Spotting / Pads per hour: "panty liner on, dark red blood and peeing and when I wiped, no clots but water was dark red. Movement: n/a 7 weeks Para / : EDC: last period 12/13-03/2025 Pre-existing condition / Immunocompromised: history of miscarriage anxiety. Reason for Disposition MODERATE vaginal bleeding (e.g., soaking 1 pad or tampon per hour and present > 6 hours; 1 menstrual cup every 6 hours) Urine with dark red blood mixed in. Protocols used: - Vaginal Bleeding Less Than 20 Weeks [id number] T [facility] [employer] 2024-06-01 20:52:21 Maylin Zuniga is a 24 year old female presents ambulatory with c/o itching and subjective rash to hands x 2 days. Pt reports currently staying in the NICU with her son, states son just got over Thrush. Mild redness noted to hands, no obvious rash noted. Pt aaox4, breathing even/unlabored in NAD Colleen Perez RN [facility] [employer] 2024-05-27 11:15:00 Images from the original note were not included. This note was copied from a baby's chart. Assessment (most recent) Assessment - 05/27/24 1115 General Information Visit Follow-up Literature Resources Education Early term/ feeding patterns;Signs of an effective latch Seismology Teacher Observation Assist with latch Position right side Football; latched effectively;Suckled in coordinated bursts;Audible swallows;Nipple rounded upon release one desat to 82 and arminda to 84 with no intervention required for recovery Mother demonstrated teach back of Positioning and latching infant at breast Recommended Feeding Plan Recommended feeding plan Breastfeed with hunger cues not to exceed 3 hours in between, pump after latching and feed expressed breastmilk, if no latch or expressed breastmilk by 3 hours then feed formula OTHER $ SERVICES Follow-up Christine SERNA-ELFEGO, IBCLC Pager - [phone] Karyn Byrd RN [facility] 2024-05-26 08:30:00 Images from the original note were not included. This note was copied from a baby's chart. Assessment (most recent) Assessment - 05/26/24 0830 General Information Visit Follow-up Infant Oral Assessment Oral assessment New assessment location NICU Chin Normal Palate assessment Normal Tongue assessment Normal Upper lip assessment Normal Literature Resources Education Early term/ feeding patterns;Triple feed - offer breast with hunger cues, max 3 hr between feeds, offer supplement after latching and pump 15-25 min;Position changes;Signs of an effective latch Seismology Teacher Observation Pumping Yes 3-6oz Assist with latch Position right side Football;Infant latched effectively;Suckled in coordinated bursts;Audible swallows;Nipple rounded upon release Mother demonstrated teach back of Positioning and latching at breast Follow up Mom will call staff Recommended Feeding Plan Recommended feeding plan Breastfeed with hunger cues not to exceed 3 hours in between, pump after latching and feed expressed breastmilk, if no latch or expressed breastmilk by 3 hours then feed formula;Frequent wqmf-zk-uppr time with parents OTHER $ SERVICES Follow-up Christine GAYLE, IBCLC Pager - [phone] Karyn Byrd RN [facility] 2024-05-20 13:28:53 Problem: Falls, Risk of Goal: Absence of falls 05/20/2024 1328 by Caren Che RN Outcome: Resolved 05/20/2024 0857 by Caren Che RN Outcome: Progressing as expected Problem: Complications of preeclampsia/eclampsia (risk or actual) Goal: Absence of seizure activity 05/20/2024 1328 by Caren Che RN Outcome: Resolved 05/20/2024 0857 by Caren Che RN Outcome: Progressing as expected Goal: Absence of signs and symptoms of preeclampsia 05/20/2024 1328 by Caren Che RN Outcome: Resolved 05/20/2024 0857 by Caren Che RN Outcome: Progressing as expected Problem: Seizures, Risk of / or Actual Goal: Absence of injury related to seizure activity 05/20/2024 1328 by Caren Che RN Outcome: Resolved 05/20/2024 0857 by Caren Che RN Outcome: Progressing as expected Goal: Absence of seizure activity 05/20/2024 1328 by Caren Che RN Outcome: Resolved 05/20/2024 0857 by Caren Che RN Outcome: Progressing as expected Problem: Discharge Planning - Goal: Adequate for discharge 05/20/2024 1328 by Caren Che RN Outcome: Resolved 05/20/2024 0857 by Caren Che RN Outcome: Progressing as expected Goal: Mood stable 05/20/2024 1328 by Caren Che RN Outcome: Resolved 05/20/2024 0857 by Caren Che RN Outcome: Progressing as expected Caren Che RN [facility] 2024-05-20 09:10:00 Images from the original note were not included. This note was copied from a baby's chart. Assessment (most recent) Assessment - 05/20/24 0910 General Information Visit Follow-up Breast Assessment Other Filling Literature Resources Education Benefits of breastmilk;Pump frequency;Storage of expressed breastmilk;Labeling of expressed breastmilk;Lactogenesis Seismology Teacher Observation Pumping Yes 15-30ml Follow up Follow up in hospital Recommended Feeding Plan Recommended feeding plan Pump/hand express minimum 8 times in 24 hours including nights. Pump for 15-25 min.;Frequent zkep-zi-bjze time with parents OTHER $ SERVICES Follow-up Christine Byrd RNC-MN, IBCLC Pager - [phone] Karyn Byrd RN [facility] 2024-05-20 08:58:00 Problem: Falls, Risk of Goal: Absence of falls Outcome: Progressing as expected Problem: Complications of preeclampsia/eclampsia (risk or actual) Goal: Absence of seizure activity Outcome: Progressing as expected Goal: Absence of signs and symptoms of preeclampsia Outcome: Progressing as expected Problem: Seizures, Risk of / or Actual Goal: Absence of injury related to seizure activity Outcome: Progressing as expected Goal: Absence of seizure activity Outcome: Progressing as expected Problem: Discharge Planning - Goal: Adequate for discharge Outcome: Progressing as expected Goal: Mood stable Outcome: Progressing as expected [facility] 2024-05-19 22:19:41 Problem: Falls, Risk of Goal: Absence of falls Outcome: Progressing as expected Problem: Complications of preeclampsia/eclampsia (risk or actual) Goal: Absence of seizure activity Outcome: Progressing as expected Goal: Absence of signs and symptoms of preeclampsia Outcome: Progressing as expected Problem: Seizures, Risk of / or Actual Goal: Absence of injury related to seizure activity Outcome: Progressing as expected Goal: Absence of seizure activity Outcome: Progressing as expected Judy Meadows RN [facility] 2024-05-19 09:50:00 Images from the original note were not included. This note was copied from a baby's chart. Assessment (most recent) Assessment - 05/19/24 0950 General Information Visit Follow-up Breast Pump Has received pump from [employer] Electric Literature Resources Education Benefits of breastmilk;Lactogenesis;Pump frequency;Storage of expressed breastmilk Seismology Teacher Observation Pumping Yes 1ml Follow up Follow up in hospital Recommended Feeding Plan Recommended feeding plan Pump/hand express minimum 8 times in 24 hours including nights. Pump for 15-25 min.;Frequent kukw-ah-nocf time with parents OTHER $ SERVICES Follow-up Christine Byrd RNC-MN, IBCLC Pager - [phone] [facility] 2024-05-18 23:49:57 Problem: Falls, Risk of Goal: Absence of falls Outcome: Progressing as expected Problem: Complications of preeclampsia/eclampsia (risk or actual) Goal: Absence of seizure activity Outcome: Progressing as expected Goal: Absence of signs and symptoms of preeclampsia Outcome: Progressing as expected Problem: Seizures, Risk of / or Actual Goal: Absence of injury related to seizure activity Outcome: Progressing as expected Goal: Absence of seizure activity Outcome: Progressing as expected [facility] 2024-05-18 18:16:26 Problem: Falls, Risk of Goal: Absence of falls Outcome: Progressing as expected Problem: Complications of preeclampsia/eclampsia (risk or actual) Goal: Absence of seizure activity Outcome: Progressing as expected Goal: Absence of signs and symptoms of preeclampsia Outcome: Progressing as expected Problem: Seizures, Risk of / or Actual Goal: Absence of injury related to seizure activity Outcome: Progressing as expected Goal: Absence of seizure activity Outcome: Progressing as expected Caren Magaña RN [facility] 2024-05-18 15:19:49 Patient navigator notified. Ethel Peterson RN 05/18/24 3:20 PM [facility] 2024-05-18 14:38:42 Maylin Zuniga is a 24 year old female requesting to talk with Rajwinder Gan delivered baby on 05/21/24. Claire Villatoro [facility] 2024-05-18 10:35:00 Images from the original note were not included. This note was copied from a baby's chart. Assessment (most recent) Assessment - 05/18/24 1035 General Information Visit Consult Mom's age (years) 23 years Gestational age 34.5 weeks 2 Parity 1 Living Children 1 Feeding plan Breast Planned maternity leave -- will go back to work at some point Breast Pump -- has mom kia, i recommended mom to order her insurance electric pump to estabish milk supply for baby, i assisted mom in applying for pump Delivery method Periods Regular Risk factors PIH Mental health history Depression;Anxiety Infant Oral Assessment Oral assessment Deferred CPAP Date of 05/18/24 Time of 0305 Infant location NICU Breast Assessment Breast Assessment Initial Symmetry Symmetrical Size M (B-C) Shape Rounded Other Soft Nipple & Areola Assessment Left Areola Pliable Right Areola Pliable Left Nipple Colostrum visible;Everted Right Nipple Colostrum visible;Everted Literature Resources Resources -- expressing milk for your NICU baby Education Benefits of breastmilk;Pump frequency;Use/settings of pump;Storage of expressed breastmilk;Labeling of expressed breastmilk;Cleaning of pump parts;Lactogenesis;How to obtain pump for after discharge teaching needs to be reinforced as mom is tired on magnesium Seismology Teacher Observation Pumping Yes pumping now, set mom up with hands free pumping as she is very tired on magnesium, obtains many drops Interventions Motherlove nipple cream heart to heart fabrics, Mother demonstrated teach back of Proper use of breast pump equipment Follow up Follow up in hospital Recommended Feeding Plan Recommended feeding plan Pump/hand express minimum 8 times in 24 hours including nights. Pump for 15-25 min. OTHER $ SERVICES Consult Christine SERNA-MN, IBCLC Pager - [phone] [facility] 2024-05-18 06:31:32 Patient: Maylin Zuniga Procedure Summary Date: 05/17/24 Room / Location: Anesthesia Start: 0 Anesthesia Stop: 05/18/24 0433 Procedure: CENTRAL NEURAXIAL BLOCK Diagnosis: Scheduled Providers: Responsible Provider: María Andrade MD Anesthesia Type: Epidural ASA Status: 2 Anesthesia Type: Epidural Last vitals BP 108/54 (05/18/24599) Temp Pulse 68 (05/18/24599) Resp SpO2 98 % (05/18/24599) There were no known notable events for this encounter. Anesthesia Post Evaluation Patient participation: complete - patient participated Level of consciousness: awake and alert Pain score: 1 Pain management: satisfactory to patient Airway patency: patent Cardiovascular status: acceptable and blood pressure returned to baseline Respiratory status: acceptable Hydration status: acceptable T AN-ANESTHESIOLOGY ANESTHESIOLOGIST [facility] 2024-05-18 06:12:53 Problem: Falls, Risk of Goal: Absence of falls Outcome: Progressing as expected Problem: Complications of preeclampsia/eclampsia (risk or actual) Goal: Absence of seizure activity Outcome: Progressing as expected Goal: Absence of signs and symptoms of preeclampsia Outcome: Progressing as expected Problem: Seizures, Risk of / or Actual Goal: Absence of injury related to seizure activity Outcome: Progressing as expected Goal: Absence of seizure activity Outcome: Progressing as expected [facility] 2024-05-18 03:25:11 DELIVERY BY SPONTANEOUS VAGINAL DELIVERY Delivery Date: 05/18/2024 Delivery Time: 3:05 AM Review the Delivery Report for details. The patient was admitted to the Labor & Delivery unit for IOL at 34w5d due to PreEwSF based on neurological symptoms. Delivery Physician: Anastacia Walton MD OB Faculty: Sean Robison MD Assistant Librarian Resident: Jamaal Snider MD Intrapartum Anesthesia/Analgesia: Epidural Mode of Delivery: Delivery of her fetus with cephalic presentation Fetus Spontaneous vaginal delivery of head with cephalic position, occipital anterior. As the head crowned and distended the perineum, no episiotomy was performed. A blue towel was used to protect the perineum as the head crowned and delivered. The other hand was used to exert pressure on the occiput to control the delivery of the head. The perineum was pushed with a towel-draped hand as the head and mouth was delivered over the perineum. The head was allowed to rotate externally to achieve natural body posture. Examination of neck revealed nuchal cord, which was Loose umbilical cord - reduced. The shoulder was delivered by gentle downward traction applied to head and downward traction for the delivery of anterior shoulder. This was followed by upward traction with delivery of posterior shoulder and body. A normal, male was delivered. The umbilical cord was clamped, cut and the infant was handed off the field to the circulating nurse. Delayed cord clamping for 30 seconds was performed. The pediatricians were at the stand to evaluate the new born. Placenta Placenta was delivered spontaneously while the abdominal hand lifted the uterus cephalad and other hand keeping the umbilical cord slightly taut. Laceration Laceration Repair: No laceration repair needed. Fourth Stage Fourth stage of labor was managed by uterine massage with abdominal hand and infusion 30 units of pitocin mixed with intravenous fluid at rate of 300cc/kg/hr. EBL: 200 ml APGARs: 8 , 9 Weight: 2495g Complications: none Anastacia Walton MD 05/18/24 3:25 AM Associated attestation - Sean Robison MD - 05/18/2024 9:44 AM CDT I was present for and supervised the entire procedure. OBSTETRICS & GYNECOLOGY [facility] 2024-05-18 03:05:00 Problem: Intrapartum process (including labor pain) Goal: Absence of or reduction of complications of labor Outcome: Resolved Goal: Able to cope with pain Outcome: Resolved Goal: Adequate to move to next level of care Outcome: Resolved Goal: Reduction in pain sensation Outcome: Resolved Tasia Mendoza RN [facility] 2024-05-17 21:34:08 Intrapartum Progress Note 05/17/2024 9:34 PM Subjective: Patient complains of increased pressure Objective: Vitals last 24 hours: Temp: [36.4 ?C (97.5 ?F)-37.4 ?C (99.3 ?F)] 37.1 ?C (98.8 ?F) Pulse: [63-109] 83 Resp: [16-20] 18 BP: (84-141)/(40-94) 129/83 Intake/Output : I/O this shift: In: 185.7 [I.V.:92.4] Out: 640 [Urine:640] I/O last 3 completed shifts: In: 3448.4 [I.V.:1273.8] Out: 5847 [Urine:5847] Assessment Active movement: Yes Mode: FSE Uterine Activity: Mode: IUPC Contractions (number / 10 minute): 3 Contraction duration (seconds): 70 Contraction quality: Mild Resting tone: Soft Membrane Status Membrane status: Artificial Rupture date: 05/17/24 Rupture time: 714 Amniotic fluid color: Clear Cervical Exam % / -1 Assessment/Plan: Maylin Zuniga is a 24 year old at 34w4d OB Assessment: IOL, PreEwSF, GBS unk OB Plan: s/p FB, Pit@0315, Mag, PCN Additional Comments/Detail: Patient reporst of pain on her left side, has epidural in place, will have anesthesia assess. Ripening Agent: Oxytocin Intrapartum Plan: Continue active labor management, Consult Anesthesiology service Nena Clayton MD OBSTETRICS & GYNECOLOGY [facility] 2024-05-17 18:40:37 Problem: Intrapartum process (including labor pain) Goal: Absence of or reduction of complications of labor Outcome: Progressing as expected Goal: Able to cope with pain Outcome: Progressing as expected Goal: Adequate to move to next level of care Outcome: Progressing as expected Goal: Reduction in pain sensation Outcome: Progressing as expected Monica Beal RN [facility] 2024-05-17 07:29:00 Intrapartum Progress Note 05/17/2024 7:29 AM Subjective: Patient has no complaints Objective: Vitals last 24 hours: Temp: [36.7 ?C (98 ?F)-37.1 ?C (98.7 ?F)] 36.9 ?C (98.4 ?F) Pulse: [74-120] 96 Resp: [16-20] 18 BP: (84-148)/(49-97) 100/52 Intake/Output : No intake/output data recorded. I/O last 3 completed shifts: In: 1913.4 [I.V.:617.9] Out: 3797 [Urine:3797] Assessment Active movement: Yes Mode: EFM Uterine Activity: Mode: [place] Contractions (number / 10 minute): 3; irrit Contraction duration (seconds): 60 Contraction quality: Mild Resting tone: Soft Membrane Status Membrane status: Artificial Cervical Exam 4 / 50 % / -3 Assessment/Plan: Maylin Zuniga is a 24 year old at 34w4d OB Assessment: IOL, PreEwSF, GBS unk OB Plan: s/p FB, Pit@0315, Mag, PCN Additional Comments/Detail: AROM moerate clear fluid. IUPC and FSC placed due to difficulty tracing contractions. Late decels noted after rupture. Pit turned off. Jamaal Snider MD [facility] 2024-05-17 01:02:47 Name/ MRN / Age / Gender: Maylin Zuniga, [id number] 24 year old female BMI: Estimated body mass index is 31.24 kg/m? as calculated from the following: Height as of this encounter: 1.626 m (5' 4"). Weight as of this encounter: 82.6 kg (182 lb). Allergies: Patient has no known allergies. Last Vitals: BP Readings from Last 1 Encounters: 05/17/24 136/64 Pulse Readings from Last 1 Encounters: 05/17/24 109 SpO2 Readings from Last 1 Encounters: 05/17/24 98% Date of Surgery: Surgeon: * Surgery not found * Procedure: CENTRAL NEURAXIAL BLOCK OR Location: * No surgery found * Anesthesia Preop Eval (physical exam) Anesthesia Preop: Chart Review and [id number] NPO Status Verified Clear Liquids: > 2 Hours Solid Food/Non-Clear Liquids: > 8 Hours PONV Risk Factors: female Anesthesia History Anesthesia History Negative (-) Hx of anesthetic complications Previous Anesthetics/Airways Cardiovascular Negative Cardiac ROS Comments: BP Readings from Last 3 Encounters: 05/17/24 : 136/64 05/16/24 : 114/63 05/13/24 : (!) 151/98 METS: 5-6 (-) Hypertension (-) Dyslipidemia (-) CAD (-) Valvular problems/murmurs (-) Dysrhythmias Pulmonary (-) COPD (+) Asthma (+) Tobacco use (-) Cigarette use (+) Vaping use Neuro/Musculoskeletal (-) TIA (-) CVA(+) Headaches (-) Seizures (-) Syncope (-) Rheumatoid arthritis (+) Anxiety (-) Osteoarthritis (-) Scoliosis (-) Spinal Cord injury (-) Positioning limitations (+) Obesity GI/Hepatic Negative GI/Hepatic ROS Comments: ALBUMIN (g/dL) Date Value 12/30/2023 3.9 TOTAL BILI (mg/dL) Date Value 12/30/2023 0.4 ALTv (U/L) Date Value 05/16/2024 13 AST(SGOT) (U/L) Date Value 05/16/2024 21 ALK PHOS (U/L) Date Value 12/30/2023 53 (-) GERD Hematology Negative Hematology ROS Comments: WBC (10*3/?L) Date Value 05/16/2024 11.87 (H) HGB (g/dL) Date Value 05/16/2024 10.4 (L) PLT (10*3/?L) Date Value 05/16/2024 222 No results found for: "PTINR" No results found for: "APTTMNNM" No results found for: "APTTPAT" (-) PE/DVT (-) Coagulopathy Type and Screen Ordered: Yes Patient Accepts Blood Transfusion: Yes Renal Negative Renal ROS Comments: CREATININE (mg/dL) Date Value 05/16/2024 0.41 (L) K (mmol/L) Date Value 11/11/2023 3.4 (L) NA (mmol/L) Date Value 11/11/2023 135 (-) Renal disease Skin Negative Skin ROS (+) Current IV access Endo/Other Negative Endo/Other ROS Comments: No results found for: "[id number]" HGB A1C Date Value Ref Range Status 01/03/2023 5.0 4.0 - 5.7 % Final (-) Diabetes Mellitus (-) Hyperthyroidism (-) Hypothyroidism (-) Hyperparathyroidism (-) Hypoparathyroidism Other (+) Tobacco use (-) Cigarette use (+) Vaping use MANAGER DOCUMENT Comments: 24 year old female at 34w4d requesting central neuraxial anesthesia P: 1 Gestational Age: 34 weeks 4 days Pediatric Pediatric N/A N/A Preoperative Medication Instructions Continue taking all prescribed medications except: TAY inhibitors, ARBs, diuretics, all oral diabetes medications Anticoagulant Therapy: Defer to surgeons Insulin: Take 1/2 dose the night prior to surgery. Hold on DOS. Phentermine: Alert [facility] anesthesiologist SGLT2 Inhibitors: "gliflozins" to be held for 3 days prior to elective surgeries GLP1 Agonosit: stop 7 days prior to surgery MAC Cases: Continue taking TAY inhibitors and ARBs ASA Classification ASA: 2 Labs: Chemistry 11/11/2023 CBC 05/16/2024 135 103 7 85 11.87 (H) 10.4 (L) 222 3.4 (L) 27 0.41 (L) 32.0 (L) eGFR: 142.0 Date: 05/16/2024 ANC: 7.46 (H) Date: 05/16/2024 LFTs 05/16/2024 Coags AST: 21 AP: 53 Prot: 6.6 Ca: 9.2 PT: - Date: - ALT: 13 T Serafin: 0.4 Alb: 3.9 PTT: - Date: - PO4: - Date: - INR: - Date: - Cardiac Endocrine & other pBNP: - Date: - A1C: - Date: - Trop I: - Date: - POCT A1C: - Date: - CK: - Date: - TSH: 1.49 Date: 10/24/2023 CKMB: - Date: - FT4: - Date: - LDL: - Date: - Lact: - Date: - Procal: - Date: - Respiratory -|-|-|-|- D-dimer: - ABG Date: - Date: - Miscellaneous Type and Screen: O POSITIVE Antibody: Negative Date: 05/16/2024 POCT : Positive Date: 11/14/2023 Current Medications: No outpatient medications have been marked as taking for the 05/16/24 encounter (Hospital Encounter). Previous Surgeries: No past surgical history on file. Anesthesia Physical Exam General no apparent distress and alert and oriented x 3 Neuro/Psych neurological Dental large tongue Braces on bottom arches. Braces on upper arches. Abdominal (+) obesity and gravid Airway Mallampati score:III TM distance:< 5 cm NECK: short Neck ROM: full Mouth opening:normal Extremity Normal extremity Pulmonary pulmonary exam normal Other Cardiovascular cardiovascular exam normal Anesthesia Plan ASA Status: 2 Plan discussed during pre-op evaluation: General, Epidural, Spinal, CSE and Regional Anesthetic plan on DOS: Epidural Anesthesia plan discussed with: patient or account representative Post-Operative Analgesia: routine analgesia & antiemetics Recovery Plan: LDR Additional comments: AN-PAIN MEDICINE ANESTHESIOLOGIST [facility] 2024-05-16 20:05:39 Problem: Intrapartum process (including labor pain) Goal: Absence of or reduction of complications of labor Outcome: Progressing as expected Goal: Able to cope with pain Outcome: Progressing as expected Goal: Adequate to move to next level of care Outcome: Progressing as expected Goal: Reduction in pain sensation Outcome: Progressing as expected Problem: Falls, Risk of Goal: Absence of falls Outcome: Progressing as expected Problem: Complications of preeclampsia/eclampsia (risk or actual) Goal: Absence of seizure activity Outcome: Progressing as expected Goal: Absence of signs and symptoms of preeclampsia Outcome: Progressing as expected [facility] 2024-05-16 19:01:21 Problem: Intrapartum process (including labor pain) Goal: Absence of or reduction of complications of labor Outcome: Progressing as expected Goal: Able to cope with pain Outcome: Progressing as expected Goal: Adequate to move to next level of care Outcome: Progressing as expected Goal: Reduction in pain sensation Outcome: Progressing as expected [facility] 2024-05-16 08:00:00 EMS here for transfer to [facility], assisted onto stretcher in preparation for transfer, all pt belongings sent c pt Randi Clark RN [facility] 2024-05-16 01:23:35 CC: Elevated BP at 34 weeks gestation. C/O blurred vision, shakiness, and flashing lights. Pt sees Dr. Castellanos. Awake, alert, oriented, resp reg unlabored, skin intact, color appropriate for race, moves all ext without difficulty, amb Report to BILLIE Vides Keli Banks RN [facility] 2024-05-12 15:28:28 Called pt, notified of providers recommendations. Verbalized understanding. Ethel Peterson RN 05/12/24 3:30 PM [facility] 2024-05-12 14:55:32 Please advise the patient she will see HR/MFM tomorrow, she can discuss changes with her delivery date then SHONA Gillis 05/12/2024 2:57 PM [facility] 2024-05-12 14:08:27 Maylin Zuniga is a 24 year old female Pt is requesting a call regarding her induction be at 37 weeks instead of 39 weeks, due to newly gestational hypertension, please call to discuss. Thanks Kassidy Canas [facility] 2024-05-11 22:56:15 Maylin Zuniga is a 24 year old female who presents 33 weeks with a cc of elevated BP all day today, reports feeling dizzy. Jesus Anderson RN [facility] 2024-05-11 08:53:26 Patient was scheduled. González Webb [facility] 2024-05-11 08:15:21 Patient needs an appointment for further refills. Alisia Casper MA [facility] 2024-04-24 01:38:40 Pt arrives ambulatory to ED c/o lower abdominal pain and cramping, as well as lower back pain that began night before last. Pt is 31 weeks , . Pt of [place], @ the [facility] clinic Report to Marisabel WISE L&D charge phone Alisia Gabriel RN [facility] 2024-03-29 16:44:25 Report given to [place] WISE. [facility] 2024-03-29 16:41:27 Patient states: "It all started last night. I started having abdominal pain, contractions and diarrhea." Reports being 28 weeks . [facility]: OB G 2 A 1 Rosales Paredes RN [facility] 2024-03-17 22:55:34 Report called to Mandy WISE [facility] 2024-03-17 22:47:45 Pt arrived ambulatory without assist. Pt c/o lower vaginal pressure, and BP 110/100. Denies decreased movement, bleeding, cramping, loss of fluids. 25 wks 6 days MANAGER DOCUMENT with [facility] Colleen Haynes RN [facility] 2024-03-17 10:08:30 Pt calling, reports having intermittent elevated BP, DUNCAN, and blurry vision. States last BP 120/100. Advised will bring pt in for a BP check. Verbalized understanding. Ethel Peterson RN 03/17/24 10:08 AM [facility] 2024-03-17 10:03:32 Maylin Zuniga is a 23 year old female BP at home, lory high, blurry vision when blurry X Saturday Please contact pt at [phone] (home) Avelina Johnson [facility] 2024-03-09 13:11:14 Maylin Zuniga is a 23 year old female Pt is calling stating ultrasound scheduling informed her she was out of the window to complete current ultrasound ordered and they are needing orders changed. Ultrasound PSS noted they are needing new referral made for pt to schedule her. Please contact pt at [phone] (home) Naseem Jerez [facility] 2024-02-14 13:42:28 Images from the original note were not included. Refill request refilled per ambulatory refill guidelines. Notes: omeprazole 40 mg capsule Sig: Take 1 capsule by mouth in the morning. Disp: 90 capsule Refills: 1 Start: 02/14/2024 Class: eRX Non-formulary For: Gastroesophageal reflux disease without esophagitis Last ordered: 10 months ago (04/18/2023) by MICHAELA Vincent Gastroenterology: Antiulcer - Proton Pump Inhibitors [id number]/14/2024 01:21 PM Protocol Details Valid encounter within last 12 months To be filled at: [facility]/pharmacy #[id number] - [place], [place] - [address] Last Refilled: 10/2023 Recent Visits Date Type Provider Dept 04/18/23 Office Visit Eliza Olivier FNP [facility] 04/01/23 Office Visit Eliza Olivier FNP [facility] 02/14/23 Office Visit Eliza Olivier FNP [facility] 01/03/23 Office Visit Eliza Olivier FNP [facility] 12/20/22 Office Visit Leslie Castellanos, [facility] Ang-Rmchp Showing recent visits within past 540 days with a meds authorizing provider and meeting all other requirements Future Appointments No visits were found meeting these conditions. Showing future appointments within next 150 days with a meds authorizing provider and meeting all other requirements [facility] 2024-02-13 00:18:25 Maylin Zuniga is a 23 year old female arrives to ED ambulatory with x1 visitor and 21w1D , G2,P0 with complaints of cramping since last night. Patient reports yesterday had a blood cot come out of vagina so went to [facility] for check up, MI home from ED yesterday, then went to OB appointment today and was told cervix is dilated to 2 cm and last week was 4cm dilated in clinic. Patient denies any leaking or fluids from vagina, denies any vaginal bleeding. Patient is AAOx4, RR E/U, NAD noted. Report given to L&D triage. Patient to L&D via EDT in . Roopa Monroy RN [facility] 2024-02-11 22:06:17 Cc pass out clot at 9pm today, been cramping all day LIT Latoya Montemayor RN [facility] 2024-01-28 14:32:07 Called pt, notified of lab results and results. Pt verbalized understanding. Ethel Peterson RN 01/28/24 2:32 PM [facility] 2024-01-28 13:58:33 Copied from [facility] #[id number]. Topic: Clinical - Results >> Jan 28, 2024 1:56 PM Patient Licensed Life And Health Agent wrote: Pt is calling requesting most recent lab results. Please contact pt at [phone]. Hector Carver [facility] 2024-01-24 23:52:29 Patient arrived ambulatory to ED c/o abd cramping and lower back pain that woke her up tonight. First . Dr. Sparks. 18 weeks 2 days. Ar Russell RN [facility] 2023-12-31 16:06:43 Called pt, discussed lab results and poc. Pt verbalized understanding. Ethel Peterson RN 12/31/23 4:07 PM [facility] 2023-12-31 15:56:38 Called pt, no answer. Left vm. Ethel Peterson RN 12/31/23 3:56 PM [facility] 2023-12-31 15:56:07 Duplicate encounter. Ethel Peterson RN 12/31/23 3:56 PM [facility] 2023-12-31 13:42:57 Results call Andriy Godinez [facility] 2023-12-31 13:37:52 Please advise pt her beta is trending up, heart tones was ausculted on her last visit, her hepatic function labs are wnl. Please advise her on good moisturizing body cream, ie anni butter, Eucerin cream, aveeno cream SHONA Gillis 12/31/2023 1:40 PM T [facility] 2023-12-25 15:44:45 Consult/referral placed SHONA Gillis 12/25/2023 3:44 PM T [facility] 2023-12-25 11:31:55 Called pt, pt having depression in the . Pt has been evaluated by provider and now desires medications. Routed to provider for poc. Ethel Peterson RN 12/25/23 11:33 AM T [facility] 2023-12-25 11:13:22 Copied from [facility] #[id number]. Topic: Clinical - Medical Advice >> December 25, 2023 11:10 AM Patient Licensed Life And Health Agent wrote: Maylin Zuniga is a 23 year old female Pt wants to know if she can be prescribed antidepressants. Pt was on VENLAFAXINE XR 37.5 mg and wants to know if that is safe to take while Please call pt at [phone] (home) [facility]/pharmacy #[id number] - [place], [place] - [address] [facility] [address] Eugenie Ngo [facility] 2023-11-27 16:21:49 Called pt, discussed pap results and POC. Pt verbalized understanding. Ethel Peterson RN 11/27/23 4:21 PM [facility] 2023-11-27 16:17:08 Copied from [facility] #[id number]. Topic: Customer Service - Missed Call from Provider >> Nov 27, 2023 4:16 PM Patient Licensed Life And Health Agent wrote: Patient returned missed call from nurse Avelina Johnson [facility] 2023-11-27 16:02:18 Called pt, no answer. Left vm. Ethel Peterson RN 11/27/23 4:02 PM T [facility] 2023-11-27 15:55:44 LGSIL pap will need repeat pap in 1 year SHONA Gillis 11/27/2023 3:56 PM T [facility] 2023-11-15 14:57:53 Called pt, discussed lab results. Pt signed ROR for usg, advised provider will FU with poc once she receives the report. Pt verbalized understanding. Ethel Peterson RN 11/15/23 2:58 PM [facility] 2023-11-15 11:31:30 Maylin Zuniga is a 23 year old female Pt is calling to notify provider that she has ovarian cyst results received from her previous provider and pt is requesting to discuss most recent lab results. Pt is 8wks . Please contact pt at [phone]. Hector Carver [facility] 2023-11-11 23:49:53 Pt given printed and verbal discharge instructions regarding nausea and vomiting, hypokalemia, and mild dehydration Prescriptions provided Pt verbalized understanding of instructions, pt awake alert oriented, resp reg unlabored, skin w/d, color appropriate for race, moves all ext well,pt encouraged to follow up with pcp Advised to seek medical attention for new/prolonged/worsening of symptoms No adverse reaction to meds given in ER noted upon discharge PIV d'cd, dressing to site, catheter in tact. Awake, alert oriented, resp reg unlabored, skin w/d, pt leaving amb with steady gait, in no apparent distress Keli Banks RN [facility] 2023-11-11 23:24:06 Ice chips given Anabela Carson RN [facility] 2023-11-11 22:30:00 Ice chips given [facility] 2023-11-11 21:43:20 CC: Pt reports "I can't keep anything down" She ran out of zofran and is using preggie pops? Pt is 7 wks Awake, alert, oriented, resp reg unlabored, skin warm, color appropriate for race, moves all ext without difficulty, amb with steady gait Alisia Guzman RN [facility] 2023-11-01 15:42:51 Maylin Zuniga is a 23 year old female Pt is calling requesting to speak with Rajwinder at clinic to continue conversation regarding insurance questions. Pt connected w/ clinic Pss. Hector Carver [facility] 2023-10-24 16:52:17 Patient states that she is tired and hungry and is ready to leave. States "I just had the trans vag but I don't want to wait for the results, she said it would be an hour. My levels looked Ok so I'm just going to leave". AMA form signed, IV removed and patient left the department. [facility] 2023-10-24 15:47:36 Pt being evaluated in ER at this time. Francine Aparicio LVN [facility] 2023-10-24 14:46:48 Maylin Zuniga is a 23 year old female Pt is calling to speak with a nurse to see if she is ok to take her VENLAFAXINE XR 37.5 mg 24 hr capsule while . Pt has not been taking the medication and is biting skin and anxiety issues. Please contact pt Andriy Godinez [facility] 2023-10-24 11:37:27 Patient reports being 6 weeks and began cramping this AM with no discharge. Patient has not had first appointment yet with OB which is scheduled for the . A1 Manda Harrell RN [facility] 2023-08-13 11:31:01 Maylin Zuniga is a 23 year old female ovarian cysts on one or two ovaries x April Patient called to schedule appt with PGY. 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 Anne Hall RN [facility] 2023-04-24 10:09:17 Patient states "I have one positive test and one negative test for . So I just wanted to make sure." Patient here for confirmation. Amanda Hoang RN [facility] 2023-04-08 08:38:40 Spoke with patient, verbalized understanding medication is at the pharmacy. Nora Alonso RN [facility] 2023-04-04 16:31:40 I have sent nausea medications to the pharmacy Please let patient know [facility] 2023-04-01 13:30:00 Images from the original note were not included. Venipuncture collection performed by clean technique on the left anticubitus. Total of 1 attempts were made. Slight pressure and a bandage/dressing were applied to the site(s). The patient experienced no complications. The following specimens were processed according to instructions and sent to [facility] laboratories per lab order on 04/01/2023 : LT BLUE SST 3 RED LAV 1 PPT DK GREEN (LiHep) DK GREEN (SodH) KRISHNAN DK BLUE (K2) DK BLUE (S) ACD Blood Culture NIPT/NTD [facility] 2023-03-13 14:39:33 Rx sent, let patient know, and to follow-up as scheduled. [facility] 2023-03-11 08:25:31 NICOLE 02/14/23 NOV 03/14/23 LRD 02/14/23 Routing to correct pool PN-PSYCHIATRY [facility]
[2025-05-15 14:00] LABS: Absolute Lymphocytes (CBC) 2.0 K/uL (0.7-4.9); Hematocrit 31.3 % (36.0-45.0); Hemoglobin 9.9 g/dL (12.0-15.0); MCH 23.0 pg (27.0-35.0); MCHC 31.6 g/dL (32.0-36.0); MCV 72.7 fL (80-100); MPV 8.3 fL (7.6-11.3); Nucleated RBC Absolute Count 0.0 (0-0); Nucleated Red Blood Cells % 0.0 % (0-0); RBC Red Blood Cell Count 4.30 M/uL (3.86-4.86); White Blood Count 5.80 thou/uL (4.3-10.9)
[2025-05-15 14:02] LABS: Sqamous Epithelial <5 /HPF (None Seen); Urine Culture Reflex Order REFLEXED; Urine Microscopic Reflex YN ORDER UMIC; Urine WBC Clump Rare /HPF (None Seen)
[2025-05-15 14:20] LABS: Anion Gap 5.8 mEq/L (5.0-15.0); BUN Blood Urea Nitrogen 9.0 mg/dL (7-18); Glucose Level 94.0 mg/dL (74-106); HCG, Quantitative 63.0 mIU/mL (1-3); Potassium 3.8 mEq/L (3.5-5.1)
--- NOTE | 2025-05-15 15:00 | ER ---
Nurse's Notes [facility] [place] [facility] Name: Maylin Zuniga Age: 25 yrs Sex: Female : 2000 Arrival Date: 05/15/2025 Time: 13:13 Bed 18 Private MD: Diagnosis: Encounter for supervision of normal first , first trimester Presentation: 05/15 13:29 Chief complaint: Patient states: Was told she had a miscarriage the end of February and me1 after she had vaginal bleeding similar to a regular period for February 28. Positive test last night and this morning with nausea. Had a period May 08-. Coronavirus screen: Vaccine status: Patient reports receiving the 2nd dose of the covid vaccine. Ebola Screen: No symptoms or risks identified at this time. Initial Sepsis Screen: Does the patient meet any 2 criteria? No. Patient's initial sepsis screen is negative. Does the patient have a suspected source of infection? No. Patient's initial sepsis screen is negative. Risk Assessment: Do you want to hurt yourself or someone else? Patient reports no desire to harm self or others. Onset of symptoms is unknown. 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 - Infectious Disease History:: Denies. - Social history:: Smoking status: Patient denies any tobacco usage or history of. Screenin:05 [facility] ED Fall Risk Assessment (Adult) History of falling in the last 3 months, db including since admission No falls in past 3 months (0 pts) Confusion or Disorientation No (0 pts) Intoxicated or Sedated No (0 pts) Impaired Gait No (0 pts) Mobility Assist Device Used No (0 pt) Altered Elimination No (0 pt) Score/Fall Risk Level 0 - 2 = Low Risk Oriented to surroundings, Maintained a safe environment. Abuse screen: Denies threats or abuse. Denies injuries from another. Nutritional screening: No deficits noted. Tuberculosis screening: No symptoms or risk factors identified. Assessment: 14:46 Reassessment: Patient appears in no apparent distress at this time. Patient and/or db family updated on plan of care and expected duration. Pain level reassessed. Patient is alert, oriented x 3, equal unlabored respirations, skin warm/dry/pink. General: Appears in no apparent distress. comfortable, Behavior is calm, cooperative. Pain: Denies pain. Neuro: Level of Consciousness is awake, alert, obeys commands, Oriented to person, place, time, situation. 15:04 Reassessment: Patient appears in no apparent distress at this time. Patient and/or db family updated on plan of care and expected duration. Pain level reassessed. Patient is alert, oriented x 3, equal unlabored respirations, skin warm/dry/pink. GI: Abdomen is non-distended. Vital Signs: 13:29 BP 138 / 88; Pulse 86; Resp 16; Temp 98.3; Pulse Ox 100% ; Weight 72.12 kg; Height 5 me1 ft. 4 in. ; Pain 0/10; 14:45 BP 133 / 75; Pulse 71; Resp 16; Temp 98.4; Pulse Ox 100% on R/A; db 14:46 BP 94 / 55; Pulse 85; Pulse Ox 98% ; ts3 13:29 Body Mass Index 27.29 (72.12 kg, 162.56 cm) me1 13:29 Pain Scale: Adult me1 ED Course: 13:16 Patient arrived in ED. ts1 13:16 [facility]ardo [facility] sb4 13:16 Byron Schultz MD is Attending Physician. sb4 13:33 Triage completed. me1 13:33 Arm band placed on Patient placed in an exam room. me1 13:55 Initial lab(s) drawn, by canvas shop laborer, sent to lab. Inserted saline lock: 20 gauge in right ts3 antecubital area, using aseptic technique. Blood collected. Flushed with 10 mL NS. 13:55 Urine collected: clean catch specimen, sent to lab. ts3 14:39 Jenni Amaya, RN is Primary Nurse. db 15:00 US Transvaginal Ob In Process Unspecified. EDMS 15:05 Patient has correct armband on for positive identification. Bed in low position. Call db light in reach. Side rails up X 1. Provided Education on: DISCHARGE AND FOLLOWUP. Pulse ox on. NIBP on. Warm blanket given. Pillow given. 15:05 No provider procedures requiring assistance completed. IV discontinued, intact, db bleeding controlled, No redness/swelling at site. Administered Medications: No medications were administered Medication: 15:05 VIS not applicable for this client. db Outcome: 15:00 Discharge ordered by . deisi 15:05 Discharged to home ambulatory, db 15:05 Condition: stable 15:05 Discharge instructions given to patient, family, Instructed on discharge instructions, follow up and referral plans. 15:07 Patient left the ED. db Signatures: Dispatcher [employer] Jenni Fermin RN RN Misa George, PA-C PA-C [email or web address] Yessy Scherer, PAS PAS ts1 Sayra Vines RN RN me1 Rufina Casper ts3
--- NOTE | 2025-05-15 15:00 | EDPHYS ---
Physician Documentation [facility] Name: Maylin Zuniga Age: 25 yrs Sex: Female : 2000 Arrival Date: 05/15/2025 Time: 13:13 Bed 18 Private MD: ED Physician Byron Schultz HPI: 05/15 13:52 This 25 yrs old Female presents to ER via Ambulatory with complaints of Pelvic sb4 Problem, Nausea. 13:52 Patient states that she developed nausea out of nowhere yesterday. She took a home sb4 test and it was positive. She took another 1 this morning that was also positive. She states her last period was at the end of last month. Denies any abdominal cramping or vaginal bleeding. States that she did have a miscarriage in February and has not really had a normal menstrual cycle since. 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 - Infectious Disease History:: Denies. - Social history:: Smoking status: Patient denies any tobacco usage or history of. ROS: 13:52 Constitutional: Negative for fever, chills, and weight loss, sb4 13:52 Abdomen/GI: Positive for nausea, 13:52 : Positive for menstrual abnormality, 13:52 All other systems are negative, Exam: 13:52 Constitutional: This is a well developed, well nourished patient who is awake, alert, sb4 and in no acute distress. Head/Face: Normocephalic, atraumatic. Eyes: Extra-ocular motions intact. Periorbital areas with no swelling, redness, or edema. ENT: Mucous membranes moist. Respiratory: No increased work of breathing, no retractions or nasal flaring. Skin: Warm, dry with normal turgor. Normal color with no rashes, no lesions, and no evidence of cellulitis. Vital Signs: 13:29 BP 138 / 88; Pulse 86; Resp 16; Temp 98.3; Pulse Ox 100% ; Weight 72.12 kg; Height 5 me1 ft. 4 in. ; Pain 0/10; 14:45 BP 133 / 75; Pulse 71; Resp 16; Temp 98.4; Pulse Ox 100% on R/A; db 14:46 BP 94 / 55; Pulse 85; Pulse Ox 98% ; ts3 13:29 Body Mass Index 27.29 (72.12 kg, 162.56 cm) me1 13:29 Pain Scale: Adult me1 MDM: 13:17 Medical Screening Exam initiated sb4 13:53 Differential diagnosis: gastroenteritis, IUP, ectopic , UTI. sb4 15:03 Data reviewed: vital signs, nurses notes, lab test result(s), radiologic studies, and sb4 as a result, I will discharge patient. Counseling: I had a detailed discussion with the patient and/or guardian regarding the historical points, exam findings, and any diagnostic results supporting the discharge/admit diagnosis, lab results, radiology results, the need for outpatient follow up, an OB/Gyne specialist, to return to the emergency department if symptoms worsen or persist or if there are any questions or concerns that arise at home. 05/15 13:41 Order name: Basic Metabolic Panel; Complete Time: 14:21 sb4 05/15 13:41 Order name: CBC with Diff; Complete Time: 14:21 sb4 05/15 13:41 Order name: Test, Urine; Complete Time: 14:03 sb4 05/15 13:41 Order name: Quantitative Hcg; Complete Time: 14:21 sb4 05/15 13:41 Order name: UA Rfx Robert Cult if indicated; Complete Time: 14:06 sb4 05/15 14:06 Order name: Urine Culture EDMS 05/15 13:41 Order name: US Transvaginal Ob sb4 05/15 13:41 Order name: IV Saline Lock; Complete Time: 13:55 sb4 05/15 13:41 Order name: Labs collected and sent; Complete Time: 13:55 sb4 Administered Medications: No medications were administered Disposition Summary: 05/15/25 15:00 Discharge Ordered Notes: Location: Home sb4 Problem: new sb4 Symptoms: have improved sb4 Condition: Stable sb4 Diagnosis - Encounter for supervision of normal first , first trimester sb4 Followup: sb4 - With: Private Physician - When: 48 Hours - Reason: Repeat Beta-HCG (48 Hours) Discharge Instructions: - Discharge Summary Sheet sb4 - First Trimester of , Wgig-lm-[id number] sb4 Forms: - Patient Portal Instructions sb4 - Leadership Thank You Letter sb4 Signatures: Dispatcher [employer] Misa Shukla PA-C PA-C sb4 Sayra Vines, RN RN me1
--- NOTE | 2025-05-15 15:23 | RAD REPORT ---
EXAMINATION: US FIRST TRIMESTER TRANSVAGINAL WITH DOPPLER CLINICAL INDICATION: with vaginal bleeding TECHNIQUE: Real-time obstetrical ultrasonography of the maternal pelvis and first trimester was performed transvaginally. Color and spectral Doppler evaluation of the ovaries was performed. COMPARISON: No prior exam. FINDINGS: The uterus measures 6 x 3 x 5 cm. A gestational sac is not visualized within the endometrium.. Endometrial stripe normal thickness Right ovary normal in size and echotexture Left ovary normal in size and echotexture Right and left adnexa unremarkable No significant free fluid IMPRESSION: Non visualization of a gestational sac within the endometrium. This could be a viable intrauterine pr egnancy in which the gestational sac not seen secondary to the early gestation. Other considerations include an and even ectopic . This should be correlated clinically and with serial beta-hCG levels. Follow-up endovaginal sonogram in one week recommended for reevaluation
[2025-05-15 15:58] VITALS: TEMP 98.4
[2025-05-15 15:59] VITALS: BP 94/55; O2SAT 98
== END 2025-05-15 15:07 | disposition home or self-care (01) ==
LOC: ER 13:13
DX: O26.891 Other specified pregnancy related conditions, first trimester (principal); Z3A.00 Weeks of gestation of pregnancy not specified
CPT/HCPCS: 36415; 76817; 80048; 81001; 81025; 84702; 85025; 87086; 87088; 99284